=== PATIENT | female | born 1935 | race Caucasian/White ===

== ENCOUNTER 2022-08-21 18:10 | Outpatient (RCR) | payer MEDICARE, SELFPAY | END 2022-09-15 23:59 | disposition home or self-care (01) | LOC: MM 18:10 | PROVIDERS: PCP Family Medicine; Visit Provider Internal Medicine | DX: Z51.81 Encounter for therapeutic drug level monitoring (principal); I48.91 Unspecified atrial fibrillation; Z79.01 Long term (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 ==

== ENCOUNTER 2022-09-21 10:14 | Outpatient (RCR) | payer MEDICARE, SELFPAY | END 2022-10-16 16:52 | disposition home or self-care (01) | LOC: MM 10:14 | PROVIDERS: PCP Family Medicine; Visit Provider Internal Medicine | DX: Z51.81 Encounter for therapeutic drug level monitoring (principal); Z79.01 Long term (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; I48.91 Unspecified atrial fibrillation ==

== ENCOUNTER 2022-10-17 09:06 | Outpatient (RCR) | payer MEDICARE, SELFPAY | END 2022-11-16 17:25 | disposition home or self-care (01) | LOC: MM 09:06 | PROVIDERS: PCP Family Medicine; Visit Provider Internal Medicine | DX: Z51.81 Encounter for therapeutic drug level monitoring (principal); Z79.01 Long term (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; I48.91 Unspecified atrial fibrillation | CPT/HCPCS: 85610; G0463 ==

== ENCOUNTER 2022-10-20 08:46 | Outpatient (OUT) | payer MEDICARE, SELFPAY ==
[2022-10-20 09:12] LABS: Basophils Absolute Auto 0.1 10^3/uL (0.0-0.1); Basophils Percent Auto 0.7 % (0.2-2.0); Eosinophils Absolute Auto 0.3 10^3/uL (0.0-0.7); Eosinophils Percent Auto 3.6 % (0.9-7.0); Hematocrit 39.7 % (36.0-48.0); Immature Granulocytes Abs Auto 0.02 10^3/uL (0.00-0.03); Immature Granulocytes Pct Auto 0.2 % (0.0-0.5); Lymphocytes Absolute Auto 3.3 10^3/uL (1.2-3.8); Lymphocytes Percent Auto 37.7 % (20.5-60.0); Mean Corpuscular HGB Conc 30.2 g/dL (29.9-35.2); Mean Corpuscular Hemoglobin 31.6 pg (26.7-34.0); Mean Corpuscular Volume 104.5 fL (81.0-99.0); Mean Platelet Volume 11.2 fL (9.5-13.5); Monocytes Absolute Auto 0.8 10^3/uL (0.3-0.8); Monocytes Percent Auto 9.1 % (1.7-12.0); Neutrophils Absolute Auto 4.3 10^3/uL (1.4-6.5); Neutrophils Percent Auto 48.7 % (43.0-75.0); Platelet Count 232 10^3/uL (150-450); Red Cell Distribution Width 13.1 % (11.0-15.0); White Blood Count 8.7 10^3/uL (4.0-11.0)
[2022-10-20 09:53] LABS: Estimated Average Glucose 120 mg/dL; Glycohemoglobin A1C 5.8 % (4.5-6.2)
[2022-10-20 11:16] LABS: Alanine Aminotransferase 36 U/L (14-59); Albumin Globulin Ratio 0.9; Albumin Level 3.2 g/dL (3.4-5.0); Alkaline Phosphatase 59 U/L (46-116); Anion Gap 13.5; Aspartate Amino Transferase 30 U/L (15-37); BUN Creatinine Ratio 22.3; Bilirubin Total 0.2 mg/dL (0.2-1.0); Calcium 8.9 mg/dL (8.5-10.1); Carbon Dioxide 26.9 mmol/L (21.0-32.0); Chloride 108 mmol/L (98-107); Chol HDL Ratio 2.8; Cholesterol 143 mg/dL (<=200); Estimated GFR (African America 28 (>=60); Estimated GFR (Non-African Ame 23 (>=60); Free T3 1.72 pg/mL (2.18-3.98); Globulin 3.4 g/dL; Glucose 114 mg/dL (74-106); HDL Cholesterol 52 mg/dL (40-60); LDL Cholesterol Calculated 73.8 mg/dL; Potassium 4.4 mmol/L (3.5-5.1); Sodium 144 mmol/L (136-145); Thyroid Stimulating Hormone 2.786 uIU/mL (0.358-3.740); Total Protein 6.6 g/dL (6.4-8.2); Triglycerides 86 mg/dL (<=150); VLDL CHOLESTEROL 17.2 mg/dL
== END 2022-10-20 08:47 | disposition home or self-care (01) ==
LOC: LAB 08:49
PROVIDERS: PCP Family Medicine; Visit Provider Family Medicine
DX: R06.09 Other forms of dyspnea (principal); D22.9 Melanocytic nevi, unspecified; E78.5 Hyperlipidemia, unspecified; I50.9 Heart failure, unspecified; D64.9 Anemia, unspecified; E55.9 Vitamin D deficiency, unspecified
CPT/HCPCS: 36415; 80053; 80061; 82306; 83036; 83540; 83880; 84436; 84443; 84481; 85025

== ENCOUNTER 2022-11-17 08:41 | Outpatient (RCR) | payer MEDICARE, SELFPAY | END 2022-12-15 16:43 | disposition home or self-care (01) | LOC: MM 08:41 | PROVIDERS: PCP Family Medicine; Visit Provider Internal Medicine | DX: Z51.81 Encounter for therapeutic drug level monitoring (principal); Z79.01 Long term (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; I48.91 Unspecified atrial fibrillation | CPT/HCPCS: 85610; G0463 ==

== ENCOUNTER 2022-12-18 01:40 | Outpatient (RCR) | payer MEDICARE, SELFPAY | END 2023-01-16 17:18 | disposition home or self-care (01) | LOC: MM 01:40 | PROVIDERS: PCP Family Medicine; Visit Provider Internal Medicine | DX: Z51.81 Encounter for therapeutic drug level monitoring (principal); Z79.01 Long term (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; I48.91 Unspecified atrial fibrillation ==

== ENCOUNTER 2023-01-07 12:23 | Emergency (ER) | payer MEDICARE, SELFPAY ==
[2023-01-07] VITALS (14 sets, daily range): BP systolic 159–177; BP diastolic 66–73; PULSE 60–68; RESP 16–22; TEMP 36.7; O2SAT 92–96; BMI 22.7
--- NOTE | 2023-01-07 12:42 | ECG_ITS ---
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
--- NOTE | 2023-01-07 13:00 | CT_ITS ---
The [address] [address] Patient Name: ASTON ZULUAGA MRN: [id number] date: 1935 Sex: F Assigned Patient Location: ER Current Patient Location: ER Accession/Order Number: [id number] Exam Date: 01/07/2023 13:12 Report Date: 01/07/2023 13:54 At the request of: MARY JO MOREIRA Procedure: CT soft tissue neck wo con CT NECK WITHOUT CONTRAST. 01/07/2023 1:12 PM EDT Clinical History:pain on the right in the upper cervical region. Comparison: None available . Unenhanced helically acquired data per standard protocol. The lack of IV contrast material hampers evaluation of the vasculature, for enhancing fluid collections, and for adenopathy. In the region of interest there is no distinct evidence of a soft tissue mass or obvious fluid collection. There is no mastoid effusion. The TMJs are symmetric. The parotid glands are symmetric and unremarkable. A few nonenlarged cervical chain nodes bilaterally. No submental or submandibular adenopathy. Some calcific ASVD at both carotid bifurcations appears relatively symmetric. The thyroid is mildly heterogeneous and is small. The patient is edentulous. There is no evidence of acute osseous process. DDD at several levels, greatest at C6-C7. CT/CT soft tissue neck wo con IMPRESSION: 1. No distinct evidence of acute process. All CT scans at this facility use dose modulation, iterative reconstruction, and/or weight based dosing when appropriate to reduce radiation dose to as low as reasonably achievable. Electronically authenticated by: PERRY PUENTE Date: 01/07/2023 13:54
[2023-01-07] MEDS: KETOROLAC TROMETHAMINE 30 MG/ML VIAL 15 MG IM (13:05)
[2023-01-07] MEDS: ORPHENADRINE 60 MG/ 2 ML VIAL 30 MG IM (13:06)
--- NOTE | 2023-01-07 14:27 | ED.NECK1 ---
HPI - Neck Pain/Injury General Chief Complaint: Neck Pain/Injury Stated Complaint: SORE THROAT Time Seen by Provider: 01/07/23 12:42 Source: patient Mode of arrival: Wheelchair Limitations: no limitations History of Present Illness HPI Narrative: The patient presenting to us today with a bilateral neck pain that been going on at least for few days the patient mentioned that she have neck stiffness she has not been able to turn right or left because of the pain. She also mentioned that sometimes when she swallows she would feel the pain as well No fever no other concerns and no runny nose or any other complaint by the patient There was no history of trauma no numbness no tingling no weakness in upper or lower extremity Related Data Home Medications Medication Instructions Recorded Confirmed alendronate 70 mg tablet 70 mg PO Q24H 01/07/23 01/07/23 amiodarone 200 mg tablet 200 mg PO Q24H 01/07/23 01/07/23 atorvastatin 40 mg tablet 40 mg PO Q24H 01/07/23 01/07/23 cetirizine 10 mg tablet 10 mg PO Q24H 01/07/23 01/07/23 diltiazem HCl 240 mg 240 mg PO Q24H 01/07/23 01/07/23 capsule,extended release 24 hr doxepin 10 mg capsule 10 mg PO Q12H 01/07/23 01/07/23 empagliflozin 10 mg tablet 10 mg PO Q24H 01/07/23 01/07/23 (Jardiance) escitalopram oxalate 10 mg tablet 10 mg PO Q24H 01/07/23 01/07/23 ferrous sulfate 325 mg (65 mg 325 mg PO Q12H 01/07/23 01/07/23 iron) tablet furosemide 20 mg tablet 20 mg PO Q24H 01/07/23 01/07/23 levothyroxine 25 mcg tablet 25 mcg PO Q24H 01/07/23 01/07/23 liothyronine 5 mcg tablet 5 mcg PO Q24H 01/07/23 01/07/23 memantine 28 mg capsule 28 mg PO Q24H 01/07/23 01/07/23 sprinkle,extended release 24hr metformin 500 mg tablet 500 mg PO Q12H 01/07/23 01/07/23 montelukast 10 mg tablet 10 mg PO Q24H 01/07/23 01/07/23 olanzapine 2.5 mg tablet 2.5 mg PO Q24H 01/07/23 01/07/23 pantoprazole 40 mg tablet,delayed 40 mg PO Q12H 01/07/23 01/07/23 release potassium chloride 10 mEq 10 meq PO Q12H 01/07/23 01/07/23 tablet,extended release(part/cryst) (Klor-Con M) warfarin 2 mg tablet 2 mg PO .m-f 01/07/23 01/07/23 Previous Rx's Medication Instructions Recorded acetaminophen 650 mg 650 mg PO Q8H PRN pain #20 tabs 01/07/23 tablet,extended release (Tylenol 8 Hour) orphenadrine citrate 100 mg 100 mg PO DAILY PRN muscle spasm 01/07/23 tablet,extended release #5 tabs prednisone 20 mg tablet 20 mg PO DAILY 5 days #5 tabs 01/07/23 Allergies Allergy/AdvReac Type Severity Reaction Status Date / Time penicillin G Allergy Intermediate Verified 01/07/23 12:31 Sulfa (Sulfonamide Allergy Intermediate Verified 01/07/23 12:31 Antibiotics) Review of Systems ROS Status of ROS 10 or more systems reviewed and unremarkable except as noted in history and below [facility] Social History Smoking status: Never smoker Exam Narrative Exam Narrative: Nurses notes and vital signs reviewed and patient is not hypoxic. General: Well-appearing and in no apparent distress. Skin: Warm, dry, no pallor noted. No rash. Head: Normocephalic, atraumatic. Neck: The patient upon presentation looked at she is fixing her neck to one side or even and only in the middle to the left the patient have tenderness upon palpation of the paraspinal muscles on both sides no intervertebral line tenderness Eye: Pupils are equal, round and EOMI. No scleral icterus. Ears, Nose, Mouth, and Throat: TM are clear, no nasal mucosal hypertrophy. Oral mucosa is moist, no posterior oropharynx erythema, uvula is mid-line Cardiovascular: Regular Rate and Rhythm without murmur, gallop or rub. Respiratory: No accessory muscle use or respiratory distress. Lungs are clear to auscultation, no wheezing, rales or rhonchi Chest Wall: no tenderness Back: No midline thoracic or lumbar vertebral tenderness. No CVA tenderness Musculoskeletal: normal ROM, no calf or popliteal tenderness, no lower extremity edema/swelling GI: Abdomen is soft, non-distended. Normal bowel sounds. No masses appreciated. No tenderness to palpation. No rebound, guarding, or rigidity noted. Neurological: A&O x4. No cranial nerve dysfunction observed. No truncal ataxia. Moves all extremities. Sensation intact. Psychiatric: Cooperative and interactive. Normal mood and affect. Constitutional Vital Signs, click to edit/add: Last Vital Signs Temp 98.1 F 01/07/23 12:28 Pulse 63 01/07/23 13:10 Resp 22 01/07/23 13:10 BP 159/69 H 01/07/23 14:29 Pulse Ox 93 L 01/07/23 14:20 O2 Del Method Room Air 01/07/23 12:28 Course Vital Signs Vital signs: Vital Signs Temperature 98.1 F 01/07/23 12:28 Pulse Rate 68 01/07/23 12:28 Respiratory Rate 18 01/07/23 12:28 Blood Pressure 173/66 H 01/07/23 12:28 Pulse Oximetry 96 01/07/23 12:28 Oxygen Delivery Method Room Air 01/07/23 12:28 Temperature 98.1 F 01/07/23 12:28 Pulse Rate 63 01/07/23 13:10 Respiratory Rate 22 01/07/23 13:10 Blood Pressure 159/69 H 01/07/23 14:29 Pulse Oximetry 93 L 01/07/23 14:20 Oxygen Delivery Method Room Air 01/07/23 12:28 MDM - Neck Pain/Injury MDM Narrative Medical decision making narrative: The patient had an EKG and was showing paced rhythm with a heart rate of [address] elevation or depression There was no chest pain at any time and the patient pain is elicited with examination and the patient is not moving her next was she does not have pain which mostly muscular pain The CT soft tissue was obtained because the patient was pointing to the front as well as possibly for her pain and she mentioned that sometimes she would feels with the swallowing but the CT of the neck and soft tissue did not show any acute pathology The patient was feeling better after being treated with a Toradol in the ER as well as Norflex She does have Coumadin as well as other medication because of her A-fib and her granddaughter at the bedside mentioned that she have allergy test tomorrow and she cannot take any Tylenol Right now the patient will be provided with the extended release Tylenol to use after the allergy test in addition to prednisone and Norflex she was feeling much better after initial treatment The patient to come back in case of any new symptoms The patient is to follow up with primary care physician in next 2-3 days or to return to the emergency department should any of the signs or symptoms worsen or new symptoms develop. The patient agrees with the following Diagnosis and Treatment plan and the patient will be discharged home. Discharge Plan Discharge Chief Complaint: Neck Pain/Injury Clinical Impression: Strain of neck muscle Patient Disposition: Home, Self-Care Time of Disposition Decision: 14:34 Condition: Good Prescriptions / Home Meds: New prednisone 20 mg tablet 20 mg PO DAILY 5 Days Qty: 5 0RF acetaminophen [Tylenol 8 Hour] 650 mg tablet extended release 650 mg PO Q8H PRN (Reason: pain) Qty: 20 0RF orphenadrine citrate 100 mg tablet extended release 100 mg PO DAILY PRN (Reason: muscle spasm) Qty: 5 0RF No Action alendronate 70 mg tablet 70 mg PO Q24H amiodarone 200 mg tablet 200 mg PO Q24H atorvastatin 40 mg tablet 40 mg PO Q24H cetirizine 10 mg tablet 10 mg PO Q24H diltiazem HCl 240 mg capsule,extended release 24hr 240 mg PO Q24H doxepin 10 mg capsule 10 mg PO Q12H Jardiance 10 mg tablet 10 mg PO Q24H escitalopram oxalate 10 mg tablet 10 mg PO Q24H ferrous sulfate 325 mg (65 mg iron) tablet 325 mg PO Q12H furosemide 20 mg tablet 20 mg PO Q24H levothyroxine 25 mcg tablet 25 mcg PO Q24H liothyronine 5 mcg tablet 5 mcg PO Q24H memantine 28 mg capsule,sprinkle,ER 24hr 28 mg PO Q24H metformin 500 mg tablet 500 mg PO Q12H montelukast 10 mg tablet 10 mg PO Q24H olanzapine 2.5 mg tablet 2.5 mg PO Q24H pantoprazole 40 mg tablet,delayed release (DR/EC) 40 mg PO Q12H potassium chloride [Klor-Con M10] 10 mEq tablet,ER particles/crystals 10 meq PO Q12H warfarin 2 mg tablet 2 mg PO .m-f Instructions: Spasmodic Torticollis (ED) Stand Alone Forms: Portal Instructions Referrals: Chase Nolan MD [Primary Care Provider] - 1 week
== END 2023-01-07 14:51 | disposition home or self-care (01) ==
PROVIDERS: Emergency Provider Emergency Medicine; PCP Family Medicine
DX: S16.1XXA Strain of muscle, fascia and tendon at neck level, initial encounter (principal); I48.91 Unspecified atrial fibrillation; Z79.899 Other long term (current) drug therapy; Z79.890 Hormone replacement therapy; Z79.01 Long term (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; Z79.84 Long term (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 oral hypoglycemic drugs
CPT/HCPCS: 70490; 93005; 96372; 99285

== ENCOUNTER 2023-01-14 19:57 | Inpatient (IN) | payer MEDICARE, SELFPAY ==
[2023-01-14] VITALS (13 sets, daily range): BP systolic 114–138; BP diastolic 41–80; PULSE 67–76; RESP 20–29; TEMP 37.1–37.4; O2SAT 83–93; BMI 22.2
--- NOTE | 2023-01-14 20:23 | ECG_ITS ---
The 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
--- NOTE | 2023-01-14 20:23 | XR_ITS ---
The [address] [address] Patient Name: ASTON ZULUAGA MRN: [id number] date: 1935 Sex: F Assigned Patient Location: ER Current Patient Location: ED.MAIN Accession/Order Number: [id number] Exam Date: 01/14/2023 20:45 Report Date: 01/14/2023 21:05 At the request of: BRYAN HUNTER Procedure: XR chest 1V EXAM: XR chest 1V HISTORY: short of breath COMPARISON: Chest x-ray 07/10/2022 TECHNIQUE: Single AP radiograph of the chest FINDINGS: No pneumothorax. Likely small bibasilar effusions. Opacities of the right lower lobe concerning for possible infectious process. Cardiomegaly. Cardiac pacer leads project over right atrium and right ventricle. No acute osseous abnormality. Surgical clips project over the upper abdomen. XR/XR chest 1V IMPRESSION: Cardiomegaly with bibasilar effusions. Consolidation of the right lower lobe concerning for infectious process. Electronically authenticated by: MARIBELL MARIN Date: 01/14/2023 21:05
--- NOTE | 2023-01-14 20:26 | ED.SOB1 ---
HPI - SOB/Dyspnea General Chief Complaint: Shortness of Breath/Dyspnea Stated Complaint: Cough Pain in lungs Time Seen by Provider: 01/14/23 20:17 Source: patient and family Mode of arrival: Wheelchair Limitations: no limitations History of Present Illness HPI Narrative: patient has past history of CHF. Denies history of COPD. Presents complaining of congested cough and shortness of breath for a couple of days. No fever. complains of right sided chest pain with cough. Denies abdominal pain or nausea MD elicited complaint: shortness of breath and cough Related Data Home Medications Medication Instructions Recorded Confirmed alendronate 70 mg tablet 70 mg PO Q24H 01/07/23 01/14/23 amiodarone 200 mg tablet 200 mg PO Q24H 01/07/23 01/14/23 atorvastatin 40 mg tablet 40 mg PO Q24H 01/07/23 01/14/23 cetirizine 10 mg tablet 10 mg PO Q24H 01/07/23 01/14/23 diltiazem HCl 240 mg 240 mg PO Q24H 01/07/23 01/14/23 capsule,extended release 24 hr doxepin 10 mg capsule 10 mg PO Q12H 01/07/23 01/14/23 empagliflozin 10 mg tablet 10 mg PO Q24H 01/07/23 01/14/23 (Jardiance) escitalopram oxalate 10 mg tablet 10 mg PO Q24H 01/07/23 01/14/23 ferrous sulfate 325 mg (65 mg 325 mg PO Q12H 01/07/23 01/14/23 iron) tablet furosemide 20 mg tablet 20 mg PO Q24H 01/07/23 01/14/23 levothyroxine 25 mcg tablet 25 mcg PO Q24H 01/07/23 01/14/23 liothyronine 5 mcg tablet 5 mcg PO Q24H 01/07/23 01/14/23 memantine 28 mg capsule 28 mg PO Q24H 01/07/23 01/14/23 sprinkle,extended release 24hr metformin 500 mg tablet 500 mg PO Q12H 01/07/23 01/14/23 montelukast 10 mg tablet 10 mg PO Q24H 01/07/23 01/14/23 olanzapine 2.5 mg tablet 2.5 mg PO Q24H 01/07/23 01/14/23 pantoprazole 40 mg tablet,delayed 40 mg PO Q12H 01/07/23 01/14/23 release potassium chloride 10 mEq 10 meq PO Q12H 01/07/23 01/14/23 tablet,extended release(part/cryst) (Klor-Con M) warfarin 2 mg tablet 2 mg PO .m-f 01/07/23 01/14/23 Previous Rx's Medication Instructions Recorded acetaminophen 650 mg 650 mg PO Q8H PRN pain #20 tabs 01/07/23 tablet,extended release (Tylenol 8 Hour) orphenadrine citrate 100 mg 100 mg PO DAILY PRN muscle spasm 01/07/23 tablet,extended release #5 tabs prednisone 20 mg tablet 20 mg PO DAILY 5 days #5 tabs 01/07/23 Allergies Allergy/AdvReac Type Severity Reaction Status Date / Time penicillin G Allergy Intermediate Verified 01/14/23 20:15 Sulfa (Sulfonamide Allergy Intermediate Verified 01/14/23 20:15 Antibiotics) Review of Systems ROS Status of ROS 10 or more systems reviewed and unremarkable except as noted in history and below [facility] Social History Smoking status: Never smoker Exam Constitutional Vital Signs, click to edit/add: Last Vital Signs Temp 98.7 F 01/14/23 20:06 Pulse 70 01/14/23 21:30 Resp 24 01/14/23 21:30 BP 138/80 01/14/23 20:06 Pulse Ox 91 L 01/14/23 21:30 O2 Del Method Nasal Cannula 01/14/23 20:59 O2 Flow Rate 3 01/14/23 20:59 Common normals: no apparent distress, oriented x3, alert and well nourished Eye Common normals: EOMs intact bilaterally and conjunctivae normal Respiratory Common normals: no retractions and no use of accessory muscles Other: upper airway bronchial breath sounds Cardio Common normals: regular rate, regular rhythm, S1 normal heart sound and S2 normal heart sound GI Common normals: Normal to inspection, nondistended, normoactive bowel sounds present, soft to palpation and non-tender Extremity Common normals: normal to inspection Neuro Common normals: oriented x3, CN's II-XII intact bilaterally, moves all extremities, no focal motor deficits and no sensory deficits noted Psych Appearance: grossly normal Course Vital Signs Vital signs: Vital Signs Temperature 98.7 F 01/14/23 20:06 Pulse Rate 67 01/14/23 20:06 Respiratory Rate 20 01/14/23 20:06 Blood Pressure 138/80 01/14/23 20:06 Pulse Oximetry 83 L 01/14/23 20:06 Oxygen Delivery Method Room Air 01/14/23 20:06 Temperature 98.7 F 01/14/23 20:06 Pulse Rate 70 01/14/23 21:30 Respiratory Rate 24 01/14/23 21:30 Blood Pressure 138/80 01/14/23 20:06 Pulse Oximetry 91 L 01/14/23 21:30 Oxygen Delivery Method Nasal Cannula 01/14/23 20:59 Oxygen Delivery Flow Rate 3 01/14/23 20:59 MDM - SOB/Dyspnea MDM Narrative Medical decision making narrative: patient has a past history of cardiomyopathy, CHF. has pacemaker in place. 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 She is on coumadin because of her cardiomyopathy . She denies history of COPD. She presents complaining of shortness of breath over the past couple of days. No complaint of chest pain. INR elevated at 4.91. BNP elevated at 5471. she as CKD. creatine 2.94 today. Was 2.06 last month. She has elevated lactic and WBC 27,000. Her d-dimer is elevated likely from the pneumonitis. She is not a cadidate for CTA given her decreased GFR. Blood cx ordered as well as coverage for CAP with Zithromax and Rocephin. Discussed with Tele Hospitalist and patient accepted for in patient admission she is also positive for entero/rhino virus her vital signs have remained stable during her time in the department. never hypotensive or tachycardic. Admitted to Telemetry bed Med surg Lab Data Labs: Lab Results 01/14/23 Range/Units 20:43 WBC 27.7 H (4.0-11.0) 10^3/uL RBC 3.81 L (4.20-5.40) 10^6/uL Hgb 12.1 (12.0-16.0) g/dL Hct 39.1 (36.0-48.0) % MCV 102.6 H (81.0-99.0) fL MCH 31.8 (26.7-34.0) pg MCHC 30.9 (29.9-35.2) g/dL RDW 14.2 (11.0-15.0) % Plt Count 263 (150-450) 10^3/uL MPV 11.8 (9.5-13.5) fL Seg Neuts % (Manual) 83.0 Band Neutrophils % 5.0 (0-5) % Lymphocytes % (Manual) 9.0 L (20.5-60.0) % Monocytes % (Manual) 3.0 (1.7-12.0) % Eosinophils % (Manual) 0.0 L (0.9-7.0) % Basophils % (Manual) 0.0 L (0.2-2.0) % Neutrophils # (Manual) 22.99 H (1.4-6.5) 10^3/uL Band Neutrophils # 1.4 H (0.0-0.3) 10^3/uL Lymphocytes # (Manual) 2.49 (1.20-3.80) 10^3/uL Monocytes # (Manual) 0.83 H (0.30-0.80) 10^3/uL Eosinophils # (Manual) 0.00 (0.00-0.70) 10^3/uL Basophils # (Manual) 0.00 (0.00-0.10) 10^3/uL PT 47.6 H* (9.0-11.6) sec INR 4.91 H* D-Dimer 1.18 H* (<=0.59) mg/L FEU Sodium 139 (136-145) mmol/L Potassium 4.5 (3.5-5.1) mmol/L Chloride 102 (98-107) mmol/L Carbon Dioxide 22.8 (21.0-32.0) mmol/L Anion Gap 18.7 BUN 52.0 H (7.0-18.0) mg/dL Creatinine 2.94 H (0.55-1.02) mg/dL Est GFR ( Amer) 18 L (>=60) Est GFR (Non-Af Amer) 15 L (>=60) BUN/Creatinine Ratio 17.7 Glucose 153 H (74-106) mg/dL Lactate 3.4 H* (0.4-2.0) mmol/L Calcium 8.4 L (8.5-10.1) mg/dL Troponin I High Sens 11.1 (4.0-51.3) pg/mL NT-Pro-B Natriuret Pep 5471.0 H* (<=1800.0) pg/mL Adenovirus (PCR) Not detected (NOT DETECTE) C. pneumoniae DNA (PCR) Not detected (NOT DETECTE) Coronavirus Type OC43 Not detected (NOT DETECTE) Coronavirus Type HKU1 Not detected (NOT DETECTE) Coronavirus Type 229E Not detected (NOT DETECTE) Coronavirus Type NL63 Not detected (NOT DETECTE) Human Metapneumovir PCR Not detected (NOT DETECTE) M. pneumoniae (PCR) Not detected (NOT DETECTE) Parainfluenza PCR Not detected (NOT DETECTE) Parainfluenza 2 (PCR) Not detected (NOT DETECTE) Parainfluenza 3 (PCR) Not detected (NOT DETECTE) Parainfluenza 4 (PCR) Not detected (NOT DETECTE) RSV (RT-PCR) Not detected (NOT DETECTE) Entero/Rhino (PCR) Detected A (NOT DETECTE) SARS-CoV-2 (PCR) Not detected (NOT DETECTE) Bordetella pertussis (PCR) Not detected (NOT DETECTE) B parapertussis DNA PCR Not detected (NOT DETECTE) Influenza Type A (PCR) Not detected (NOT DETECTE) Influenza Type B (PCR) Not detected (NOT DETECTE) Critical Care Time Critical Care Time Total Critical Care Time: 35 Discharge Plan Discharge Chief Complaint: Shortness of Breath/Dyspnea Clinical Impression: Acute viral syndrome, Congestive heart failure, Community acquired pneumonia, CKD (chronic kidney disease), Sepsis Prescriptions / Home Meds: No Action alendronate 70 mg tablet 70 mg PO Q24H amiodarone 200 mg tablet 200 mg PO Q24H atorvastatin 40 mg tablet 40 mg PO Q24H cetirizine 10 mg tablet 10 mg PO Q24H diltiazem HCl 240 mg capsule,extended release 24hr 240 mg PO Q24H doxepin 10 mg capsule 10 mg PO Q12H Jardiance 10 mg tablet 10 mg PO Q24H escitalopram oxalate 10 mg tablet 10 mg PO Q24H prednisone 20 mg tablet 20 mg PO DAILY 5 Days Qty: 5 0RF ferrous sulfate 325 mg (65 mg iron) tablet 325 mg PO Q12H acetaminophen [Tylenol 8 Hour] 650 mg tablet extended release 650 mg PO Q8H PRN (Reason: pain) Qty: 20 0RF furosemide 20 mg tablet 20 mg PO Q24H orphenadrine citrate 100 mg tablet extended release 100 mg PO DAILY PRN (Reason: muscle spasm) Qty: 5 0RF levothyroxine 25 mcg tablet 25 mcg PO Q24H liothyronine 5 mcg tablet 5 mcg PO Q24H memantine 28 mg capsule,sprinkle,ER 24hr 28 mg PO Q24H metformin 500 mg tablet 500 mg PO Q12H montelukast 10 mg tablet 10 mg PO Q24H olanzapine 2.5 mg tablet 2.5 mg PO Q24H pantoprazole 40 mg tablet,delayed release (DR/EC) 40 mg PO Q12H potassium chloride [Klor-Con M10] 10 mEq tablet,ER particles/crystals 10 meq PO Q12H warfarin 2 mg tablet 2 mg PO .m-f Referrals: Chase Nolan MD [Primary Care Provider] - 1 week
--- NOTE | 2023-01-14 20:39 | PC.NURSE ---
Oxygen up to 92-93% on 3 LPM/NC
[2023-01-14 20:50] LABS: Adenovirus NOT DETECTED (NOT DETECTE); Bordetella parapertussis NOT DETECTED (NOT DETECTE); Coronavirus 229E NOT DETECTED (NOT DETECTE); Coronavirus HKU1 NOT DETECTED (NOT DETECTE); Coronavirus NL63 NOT DETECTED (NOT DETECTE); Coronavirus OC43 NOT DETECTED (NOT DETECTE); Human Metapneumovirus NOT DETECTED (NOT DETECTE); Influenza A NOT DETECTED (NOT DETECTE); Influenza B NOT DETECTED (NOT DETECTE); Mycoplasma pneumoniae NOT DETECTED (NOT DETECTE); Parainfluenza Virus 1 NOT DETECTED (NOT DETECTE); Parainfluenza Virus 2 NOT DETECTED (NOT DETECTE); Parainfluenza Virus 3 NOT DETECTED (NOT DETECTE); Parainfluenza Virus 4 NOT DETECTED (NOT DETECTE); Respiratory Syncytial Virus NOT DETECTED (NOT DETECTE); SARS-CoV-2 NOT DETECTED (NOT DETECTE)
[2023-01-14 20:52] LABS: Hematocrit 39.1 % (36.0-48.0); Hemoglobin 12.1 g/dL (12.0-16.0); Mean Corpuscular HGB Conc 30.9 g/dL (29.9-35.2); Mean Corpuscular Hemoglobin 31.8 pg (26.7-34.0); Mean Corpuscular Volume 102.6 fL (81.0-99.0); Mean Platelet Volume 11.8 fL (9.5-13.5); Platelet Count 263 10^3/uL (150-450); Red Blood Count 3.81 10^6/uL (4.20-5.40); Red Cell Distribution Width 14.2 % (11.0-15.0); White Blood Count 27.7 10^3/uL (4.0-11.0)
[2023-01-14] MEDS: ALBUTEROL SULFATE 2.5 MG/3 ML VIAL NEB IH (20:59)
[2023-01-14] MEDS: 0.9 % SODIUM CHLORIDE 1,000 ML 100 ML IV (21:01)
[2023-01-14] MEDS: METHYLPREDNISOLONE SOD SUCC PF 125 MG/2 ML VIAL IVP (21:01)
[2023-01-14 21:15] LABS: Anion Gap 18.7; BUN Creatinine Ratio 17.7; Calcium 8.4 mg/dL (8.5-10.1); Carbon Dioxide 22.8 mmol/L (21.0-32.0); Chloride 102 mmol/L (98-107); Estimated GFR (African America 18 (>=60); Estimated GFR (Non-African Ame 15 (>=60); Glucose 153 mg/dL (74-106); Potassium 4.5 mmol/L (3.5-5.1); Sodium 139 mmol/L (136-145); Troponin I High Sensitivity 11.1 pg/mL (4.0-51.3)
--- NOTE | 2023-01-14 21:23 | PC.NURSE ---
Critical lab results received for PT/INR, D-dimer, lactic acid and BNP. Results relayed to [facility]
[2023-01-14 21:24] LABS: D Dimer 1.18 mg/L FEU (<=0.59); INR 4.91; Lactate/Lactic Acid 3.4 mmol/L (0.4-2.0); Prothrombin Time 47.6 sec (9.0-11.6)
[2023-01-14 21:29] LABS: Band Neutrophils Absolute 1.4 10^3/uL (0.0-0.3); Lymphocytes Absolute Manual 2.49 10^3/uL (1.20-3.80); Monocytes Absolute Manual 0.83 10^3/uL (0.30-0.80); Segmented Neut Absolute Manual 22.99 10^3/uL (1.4-6.5)
[2023-01-14 21:40] LABS: Human Rhinovirus/Enterovirus DETECTED (NOT DETECTE)
[2023-01-14] MEDS: CEFTRIAXONE 1,000 MG in 0.9 % SODIUM CHLORIDE 50 ML 100 MG IV (22:24)
[2023-01-14] MEDS: AZITHROMYCIN 500 MG in 0.9 % SODIUM CHLORIDE 250 ML 250 MG IV (22:25)
[2023-01-15] VITALS (19 sets, daily range): BP systolic 105–131; BP diastolic 35–54; PULSE 60–76; RESP 18–20; TEMP 36.4–36.7; O2SAT 91–98
--- NOTE | 2023-01-15 00:37 | P.PN_ITS ---
Progress Note: Subjective Subjective Interval history: Pt is a 87F with PMH of Cardiomyopathy s/p PPM, DM, CHF, Tachycardia, on Warfarin and amiodarone (for atrial fibrillation?) who presented to the ED with complaining of Dyspnea x 2 days assocaited with exertion and intermittent chest pain. On further discussion, patient states that she gets chest pain sometimes and has not had it recently. No chest pain today. She complains primarily of shortness of breath and cough, non-productive. She denies any recent travel, no sick contacts. No fevers/chills, though the nurse at bedside states that her temperature is currently 99.3. Pt denies nausea, vomiting, dizziness, headache, swelling of the legs. In the ED, she was noted to have RLL infiltrate and bilateral vascular congestion. She was hypoxic and so she was placed on 4L NC. She does not wear O2 at home. She is entero and rhinovirus positive per ED physician. Patient denies smoking (last use 50 years ago), drugs, etOH. SHe lives with her daughter who takes care of her at home. I discussed code status - CPR, Intubation - and patient wishes to be full code. Exam Narrative Exam Narrative: General: NAD. HEENT: NC/AT Neck: FROM Cards: +murmur. Pulm: +Rhonchi, no wheezes, +Rales GI: Nontender Musculoskeletal: No edema. ALVAREZ Neuro: Awake, Alert, Oriented to person and place. Psych: Calm, cooperative Constitutional Vital Signs, click to edit/add: Last Vital Signs Temp 99.3 F 01/14/23 23:51 Pulse 73 01/14/23 23:51 Resp 22 01/14/23 23:51 BP 114/54 01/14/23 23:51 Pulse Ox 93 L 01/14/23 23:51 O2 Del Method Nasal Cannula 01/14/23 23:51 O2 Flow Rate 4 01/14/23 23:51 Progress Note: Objective Labs Labs: Short CBC 01/14/23 Range/Units 20:43 WBC 27.7 H (4.0-11.0) 10^3/uL Hgb 12.1 (12.0-16.0) g/dL Hct 39.1 (36.0-48.0) % Plt Count 263 (150-450) 10^3/uL BMP 01/14/23 20:43 Sodium 139 Potassium 4.5 Chloride 102 Carbon Dioxide 22.8 BUN 52.0 H Creatinine 2.94 H Glucose 153 H Calcium 8.4 L Progress Note: A&P Assessment and Plan (1) Community acquired pneumonia: Assessment and Plan: Chief complaint dyspnea on exertion and cough Hypoxic in ED, elevated temperaturs, Signs of sepsis+ No edema to suggest heart failure, mild rales B/L CXR with RLL Infiltrate Pt received IV Fluids in ED Hold for now given hypoxia and rales, heart failure Monitor response Continue Rocephin/Azithromycin Hold home lasix for now given BERTHA/CKD IF patient fails to improve, consider fluid overload as cause of elevated creatinine due to renal tubule congestion Consider swallow evaluation in AM given location of infiltrate (2) Congestive heart failure: Onset Date: Unknown Assessment and Plan: Check BNP Resume home lasix when stable Hold for now give acute infection and dehydration (3) Sepsis: Assessment and Plan: Patient received IV Fluid in the ED for sepsis, Pneumonia, BERTHA Pt now with rales on exam in addition to rhonchi Hold Fluid for now Tylenol PRN fever, 650mg (4) Supratherapeutic INR: Assessment and Plan: Likley due to acute infective process Hold Warfarin for now Check INR and resume when appropriate (5) Hypoxia: Assessment and Plan: Kleber does not use oxygen at home Requiring 4L in the ED Continue supplemental O2 Downtitrate as tolerated Treatment of underlying pneumonia as above Telemedicine Attestation Telemedicine Attestation I conducted this encounter from [[place]] via secure live, [id number] video conference with the patient, located at [facility] with [nurse]. Prior to the interview, the risks and benefits of telemedicine were discussed with the patient and verbal consent was obtained.
[2023-01-15 00:46] LABS: Lactate/Lactic Acid 3.3 mmol/L (0.4-2.0)
--- NOTE | 2023-01-15 00:55 | CA_ITS ---
Patient: ATSON ZULUAGA Exam Date: 01/15/2023 : 1935 Gender:F Ordering : JESSE FINNEGAN Admission #: [id number] Family : DR Chase Nolan . Order #: [id number] CLICK HERE TO VIEW EXAM ECHOCARDIOGRAM REPORT PROCEDURE: CA ECHO DOPPLER COMPLETE INDICATIONS: Cardiomyopathy, Shortness of breath COMPARISON: None. DESCRIPTION: COMPLETE ECHOCARDIOGRAM Real-time transthoracic echocardiography with 2D, M-mode, spectral and color flow Doppler performed. QUALITY: Technical quality was good. LEFT VENTRICLE: Normal chamber size. Proximal septal hypertrophy (sigmoid septum). LV EF: Global left ventricular systolic function is hyperdynamic; ejection fraction is 65 to 70%. No wall motion abnormalities are seen. DIASTOLIC: Diastolic function cannot be assessed. ATRIAL SEPTUM: Inadequately visualized. LEFT ATRIUM: Severe dilatation. RIGHT ATRIUM: Moderate dilatation. RIGHT VENTRICLE: Mild dilatation. Pacer wire present. Systolic function is normal. TRICUSPID VALVE: Normal mobility and thickness. Mild regurgitation. Doppler studies reveal severely (>60) elevated right sided pressures. RVSP 65 mmHg MITRAL VALVE: Mildly thickened with normal mobility. No evidence of mitral valve stenosis. Mild mitral annular calcification. Trivial mitral regurgitation. AORTIC VALVE: Normal trileaflet appearance. Moderately calcified aortic valve. Doppler velocity suggests mild aortic valve stenosis. DVI 0.4, DINAA 1.7 cm2. Trivial aortic regurgitation. AORTIC ROOT: Normal diameter and appearance. PULMONIC VALVE: Normal thickness and mobility. No stenosis. No regurgitation. PERICARDIUM: No evidence of pericardial effusion. IVC: IVC is dilated (2.2 cm) with no collapse. CONCLUSION: 1. Global left ventricular systolic function is hyperdynamic; ejection fraction is 65 to 70%. No wall motion abnormalities are seen 2. The right ventricle is mildly enlarged and systolic function is preserved 3. Biatrial enlargement 4. Mild tricuspid regurgitation 5. Severely elevated right sided pressures; RVSP 65 mmHg 6. Mild aortic valve stenosis Adult Echocardiography Procedure Report Left Ventricle LVEDD (3.7 - 5.6 cm): 3.75 cm LVESD (2.2 - 4.0 cm): 2.56 cm LVIVS thickness (0.6 - 1.2 cm): 1.63 cm LVPW thickness (0.5 - 1.0 cm): 1.17 cm e': 0.12 m/s E - e': 8.54 LVOT Max Gradient: 4.49 mm[Hg] LVOT Area (cm2): 1.06 m/s Peak Velocity (LVOT): 1.06 m/s Mean Velocity (LVOT): 0.68 m/s LVOT Diameter 2.12 cm Left Atrium LA Volume Index (2D A2C): 52.53 ml/m2 Left Atrium Systolic Dimension: 3.00 cm Mitral Valve MV E to A Ratio: 3.36 Mitral Valve A-Wave Peak Velocity: 0.31 m/s Mitral Valve E-Wave Peak Velocity: 1.05 m/s Right Ventricle Aorta AO Root Diam: 3.58 cm Ascending Ao Diam: 2.65 cm Aortic Valve AoV Area (Peak Pardeep): 1.41 cm2, 1.40 cm2 AoV Area (VTI): 1.71 cm2, 1.74 cm2 Peak Velocity(Antegrade Flow): 2.68 m/s, 2.64 m/s Peak Gradient(Antegrade Flow): 28.71 mm[Hg], 27.90 mm[Hg] Mean Velocity(Antegrade Flow): 1.82 m/s, 1.76 m/s Mean Gradient(Antegrade Flow): 15.19 mm[Hg], 14.56 mm[Hg] Velocity Time Integral: 58.12 cm, 59.56 cm Tricuspid Valve Peak Velocity (Regurgitant Flow): 3.22 m/s, 3.52 m/s Pulmonic Valve Peak Velocity: 0.83 m/s Peak Gradient: 2.92 mm[Hg], 2.63 mm[Hg] Right Atrium Dictated by: Dede Ma M.D. on 01/15/2023 at 15:46 Approved by: Dede Ma M.D. on 01/15/2023 at 16:00
--- NOTE | 2023-01-15 01:00 | ECG_ITS ---
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
[2023-01-15 03:57] LABS: Hematocrit 33.1 % (36.0-48.0); Hemoglobin 10.3 g/dL (12.0-16.0); Mean Corpuscular HGB Conc 31.1 g/dL (29.9-35.2); Mean Corpuscular Volume 102.8 fL (81.0-99.0); Mean Platelet Volume 11.9 fL (9.5-13.5); Platelet Count 222 10^3/uL (150-450); Red Blood Count 3.22 10^6/uL (4.20-5.40); Red Cell Distribution Width 14.1 % (11.0-15.0); White Blood Count 26.4 10^3/uL (4.0-11.0)
[2023-01-15 04:11] LABS: Band Neutrophils Absolute 2.1 10^3/uL (0.0-0.3); Lymphocytes Absolute Manual 1.58 10^3/uL (1.20-3.80); Monocytes Absolute Manual 0.52 10^3/uL (0.30-0.80); Segmented Neut Absolute Manual 22.17 10^3/uL (1.4-6.5)
[2023-01-15 04:12] LABS: Anion Gap 18.9; BUN Creatinine Ratio 18.8; Calcium 7.9 mg/dL (8.5-10.1); Carbon Dioxide 19.5 mmol/L (21.0-32.0); Chloride 104 mmol/L (98-107); Chol HDL Ratio 2.5; Cholesterol 103 mg/dL (<=200); Estimated GFR (African America 19 (>=60); Estimated GFR (Non-African Ame 15 (>=60); Glucose 263 mg/dL (74-106); HDL Cholesterol 42 mg/dL (40-60); LDL Cholesterol Calculated 40.4 mg/dL; Potassium 4.4 mmol/L (3.5-5.1); Sodium 138 mmol/L (136-145); Thyroid Stimulating Hormone 0.215 uIU/mL (0.358-3.740); Triglycerides 103 mg/dL (<=150); VLDL CHOLESTEROL 20.6 mg/dL
[2023-01-15 04:34] LABS: INR 5.11; Lactate/Lactic Acid 3.1 mmol/L (0.4-2.0); Prothrombin Time 49.4 sec (9.0-11.6)
--- NOTE | 2023-01-15 07:48 | P.HP_ITS ---
H&P: HPI History of Present Illness Chief complaint: Cough Pain in lungs PNEUMONIA Narrative: Patient presented to the emergency room with increasing shortness of breath. Cough. More of a dry type cough. In ER found to have right lower lobe pneumonia with acute hypoxia with O2 saturation of 83%. Patient does not have supplemental oxygen at home. Was needing 4 L of nasal cannula oxygen to improve her O2 saturations to the mid to low 90s. With the significant degree of hypoxia and the right lower lobe pneumonia patient admitted to inpatient status Review of Systems ROS Status of ROS 10 or more systems reviewed and unremarkable except as noted in history and below Constitutional Denies: fever or chills Ears, nose, mouth, and throat Denies: throat pain Cardiovascular Denies: chest pain or palpitations Respiratory Reports: shortness of breath, cough and chest congestion Gastrointestinal Denies: abdominal pain Genitourinary Denies: painful urination Musculoskeletal Denies: back pain Integumentary/Breast Denies: rash Neurological Denies: headache Psychiatric Denies: anxiety Endocrine Denies: excessive urination PFSH PFSH Social History Smoking status: Never smoker Meds Home Medications and Allergies Home Medications Medication Instructions Recorded Confirmed Type acetaminophen 650 mg 650 mg PO Q8H PRN pain #20 tabs 01/07/23 01/14/23 Rx tablet,extended release (Tylenol 8 Hour) alendronate 70 mg tablet 70 mg PO QWEEK 01/07/23 01/15/23 History amiodarone 200 mg tablet 200 mg PO Q24H 01/07/23 01/14/23 History atorvastatin 40 mg tablet 40 mg PO Q24H 01/07/23 01/14/23 History cetirizine 10 mg tablet 10 mg PO Q24H 01/07/23 01/14/23 History diltiazem HCl 240 mg 240 mg PO Q24H 01/07/23 01/14/23 History capsule,extended release 24 hr doxepin 10 mg capsule 10 mg PO Q12H 01/07/23 01/14/23 History empagliflozin 10 mg tablet 10 mg PO Q24H 01/07/23 01/14/23 History (Jardiance) escitalopram oxalate 10 mg tablet 10 mg PO Q24H 01/07/23 01/14/23 History ferrous sulfate 325 mg (65 mg 325 mg PO Q12H 01/07/23 01/14/23 History iron) tablet furosemide 20 mg tablet 20 mg PO Q24H 01/07/23 01/14/23 History levothyroxine 25 mcg tablet 25 mcg PO Q24H 01/07/23 01/14/23 History liothyronine 5 mcg tablet 5 mcg PO Q24H 01/07/23 01/14/23 History memantine 28 mg capsule 28 mg PO Q24H 01/07/23 01/14/23 History sprinkle,extended release 24hr metformin 500 mg tablet 500 mg PO Q12H 01/07/23 01/14/23 History montelukast 10 mg tablet 10 mg PO Q24H 01/07/23 01/14/23 History olanzapine 2.5 mg tablet 2.5 mg PO .QHS 01/07/23 01/15/23 History orphenadrine citrate 100 mg 100 mg PO DAILY PRN muscle spasm 01/07/23 01/14/23 Rx tablet,extended release #5 tabs pantoprazole 40 mg tablet,delayed 40 mg PO Q12H 01/07/23 01/14/23 History release potassium chloride 10 mEq 10 meq PO Q12H 01/07/23 01/14/23 History tablet,extended release(part/cryst) (Klor-Con M) warfarin 2 mg tablet 2 mg PO .m-f 01/07/23 01/15/23 History Allergies Allergy/AdvReac Type Severity Reaction Status Date / Time penicillin G Allergy Intermediate Verified 01/14/23 20:15 Sulfa (Sulfonamide Allergy Intermediate Verified 01/14/23 20:15 Antibiotics) Exam Constitutional Vital Signs, click to edit/add: Last Vital Signs Temp 97.6 F 01/15/23 05:44 Pulse 64 01/15/23 05:54 Resp 18 01/15/23 05:44 BP 105/54 01/15/23 05:44 Pulse Ox 94 L 01/15/23 05:44 O2 Del Method Nasal Cannula 01/15/23 05:44 O2 Flow Rate 3 01/15/23 05:44 Documenting provider has reviewed patient's vital signs: yes Common normals: no apparent distress HENMT Common normals: moist oral mucous membranes Chest Common normals: inspection of chest normal Respiratory Common normals: no retractions and no use of accessory muscles; abnormal respiratory effort (Mild distress with mild conversational dyspnea) and not clear to ascultation bilaterally Auscultation: rhonchi, wheezes and egophony (Right lower lobe) Cardio Common normals: regular rate, regular rhythm and no murmurs Extremity Common normals: normal to inspection (No edema) Results Labs Labs: Short CBC 01/14/23 01/15/23 Range/Units 20:43 03:37 WBC 27.7 H 26.4 H (4.0-11.0) 10^3/uL Hgb 12.1 10.3 L (12.0-16.0) g/dL Hct 39.1 33.1 L (36.0-48.0) % Plt Count 263 222 (150-450) 10^3/uL BMP 01/14/23 01/15/23 20:43 03:37 Sodium 139 138 Potassium 4.5 4.4 Chloride 102 104 Carbon Dioxide 22.8 19.5 L BUN 52.0 H 54.0 H Creatinine 2.94 H 2.87 H Glucose 153 H 263 H Calcium 8.4 L 7.9 L Assessment and Plan Assessment and Plan (1) Community acquired pneumonia: (2) Congestive heart failure: Onset Date: Unknown (3) Sepsis: (4) Supratherapeutic INR: (5) Hypoxia: Plan Respiratory distress, acute hypoxic respiratory failure requiring supplemental oxygen of 4 L. O2 saturation 83% in ER. Patient also with significant leukocytosis and positive lactate meeitng criteria for severe sepsis (leukocytosis, increased respiratory rate, positive lactate, leukocytosis). IV antibiotics, aerosol treatments added, try to obtain sputum culture. Did not give fluid resuscitation consistent with severe sepsis secondary to history of heart failure and cardiomyopathy in the past Elevated BNP I think this is more related to chronic kidney disease as her lung exam is not consistent with heart failure and she has no peripheral edema. Check echocardiogram Chronic kidney disease stage III-somewhat deteriorated. Better from initial admissions we will continue to monitor encourage p.o. intake. Iron deficiency anemia-monitor daily her hemoglobin is down somewhat so we will check stool for occult blood History of nonischemic cardiomyopathy-on amiodarone and Coumadin. Coumadin toxicity-we will give 1 dose of vitamin K high risk of bleeding based on her age NIDDM-add insulin sliding scale. With steroids likely to be elevated. Generalized anxiety disorder-continue home medications Hypothyroidism-continue with medications TSH is normal GERD-with the anemia and the elevated INR will place patient on IV Protonix for better gastric protection With acute hypoxia and pneumonia and complicated by her nonischemic cardiomyopathy will keep patient as inpatient status likely 2 to 3-day hospital stay
[2023-01-15 08:39] LABS: Glucometer 270 mg/dL (74-106)
[2023-01-15] MEDS: CETIRIZINE HCL 10 MG TABLET PO (08:54)
[2023-01-15] MEDS: PANTOPRAZOLE SODIUM 40 MG VIAL IV (08:54)
[2023-01-15] MEDS: ESCITALOPRAM 10 MG TABLET PO (08:55)
[2023-01-15] MEDS: AMIODARONE HCL 200 MG TABLET PO (08:55)
[2023-01-15] MEDS: POTASSIUM CHLORIDE 10 MEQ ER TABLET PO ×2 (08:55→20:35)
[2023-01-15] MEDS: MEMANTINE HCL 28 MG CAP XR PO (08:55)
[2023-01-15] MEDS: METFORMIN HCL 500 MG TABLET PO ×2 (08:55→20:35)
[2023-01-15] MEDS: DOXEPIN HCL 10 MG CAPSULE PO ×2 (08:55→20:35)
[2023-01-15] MEDS: SENNOSIDES 8.6 MG TABLET PO (08:55)
[2023-01-15] MEDS: LEVOTHYROXINE SODIUM 25 MCG TABLET PO (08:55)
[2023-01-15] MEDS: DILTIAZEM HCL 240 MG CAP.ER.24H PO (08:55)
[2023-01-15] MEDS: FERROUS SULFATE 325 MG TABLET PO ×2 (08:55→20:38)
[2023-01-15] MEDS: PHYTONADIONE (VIT K1) 10 MG/ML AMPUL 5 MG PO (08:56)
[2023-01-15] MEDS: LIOTHYRONINE SODIUM 5 MCG TABLET PO (09:01)
--- NOTE | 2023-01-15 10:37 | SWNOTE1 ---
Facility Service Associate spoke with case management and pt/family would like a list of private caregivers. Pt currently has meals on wheels being delivered and help from family as needed.
[2023-01-15] MEDS: IPRATROPIUM/ALBUTEROL SULFATE 3 ML AMPUL.NEB IH ×3 (10:43→21:00)
--- NOTE | 2023-01-15 10:43 | CM.NOTE ---
Important Message From Medicare discussed with pt, pt verbalizes understanding and signs paper. Original given to pt and copy placed on pt's chart.
[2023-01-15 10:47] LABS: Occult Blood Positive
[2023-01-15 11:13] LABS: Glucometer 340 mg/dL (74-106)
[2023-01-15] MEDS: ACETAMINOPHEN 325 MG TABLET 650 MG PO ×2 (11:13→17:12)
[2023-01-15] MEDS: INSULIN ASPART 300 UNIT/3 ML PEN SUBQ ×3 (11:33→20:37)
--- NOTE | 2023-01-15 11:33 | SWNOTE1 ---
SW met with pt and daughter in room. Pt lives at home with family. Pt does use a walker to get around. Pt is not current with any HH at this time. Pt has meals on wheels coming in currently. SW provided pt and daughter with private caregiver list. They were interested in getting some extra help. Pt's daughter did voice pt has a nurse from her insurance that comes out once a month. At this time pt and family denied any other needs. SW to follow as needed.
[2023-01-15 17:10] LABS: Glucometer 241 mg/dL (74-106)
[2023-01-15 19:37] LABS: Glucometer 232 mg/dL (74-106)
[2023-01-15] MEDS: OLANZapine 5 MG TABLET 2.5 MG PO (20:36)
[2023-01-15] MEDS: MONTELUKAST SODIUM 10 MG TABLET PO (20:36)
[2023-01-15] MEDS: ATORVASTATIN CALCIUM 40 MG TABLET PO (20:38)
[2023-01-16] VITALS (24 sets, daily range): BP systolic 104–128; BP diastolic 45–74; PULSE 64–78; RESP 18–24; TEMP 36.6–37; O2SAT 86–96
[2023-01-16] MEDS: IPRATROPIUM/ALBUTEROL SULFATE 3 ML AMPUL.NEB IH ×4 (04:15→21:35)
[2023-01-16 04:55] LABS: Hematocrit 29.1 % (36.0-48.0); Hemoglobin 9.1 g/dL (12.0-16.0); Mean Corpuscular HGB Conc 31.3 g/dL (29.9-35.2); Mean Corpuscular Hemoglobin 31.4 pg (26.7-34.0); Mean Corpuscular Volume 100.3 fL (81.0-99.0); Mean Platelet Volume 12.2 fL (9.5-13.5); Platelet Count 213 10^3/uL (150-450); Red Cell Distribution Width 14.5 % (11.0-15.0); White Blood Count 24.9 10^3/uL (4.0-11.0)
[2023-01-16] MEDS: LIOTHYRONINE SODIUM 5 MCG TABLET PO (05:06)
[2023-01-16 05:08] LABS: Anion Gap 17.5; Calcium 8.1 mg/dL (8.5-10.1); Chloride 103 mmol/L (98-107); Estimated GFR (African America 17 (>=60); Estimated GFR (Non-African Ame 14 (>=60); Glucose 133 mg/dL (74-106); Potassium 4.5 mmol/L (3.5-5.1); Sodium 137 mmol/L (136-145)
[2023-01-16 05:09] LABS: INR 1.67; Prothrombin Time 17.2 sec (9.0-11.6)
[2023-01-16 05:45] LABS: Band Neutrophils Absolute 0.7 10^3/uL (0.0-0.3); Hypochromasia 3+; Lymphocytes Absolute Manual 1.49 10^3/uL (1.20-3.80); Metamyelocytes Absolute Manual 0.49; Monocytes Absolute Manual 0.24 10^3/uL (0.30-0.80); Poikilocytosis 1+; Segmented Neut Absolute Manual 21.91 10^3/uL (1.4-6.5)
[2023-01-16] MEDS: LEVOTHYROXINE SODIUM 25 MCG TABLET PO (07:43)
[2023-01-16] MEDS: CEFTRIAXONE 1,000 MG in 0.9 % SODIUM CHLORIDE 50 ML 100 MG IV (07:43)
--- NOTE | 2023-01-16 07:43 | P.PN_ITS ---
Progress Note: Subjective Subjective Interval history: Patient still feels significant weakness. Not been up and ambulating yet today. Exam Constitutional Vital Signs, click to edit/add: Last Vital Signs Temp 97.9 F 01/16/23 05:00 Pulse 71 01/16/23 06:00 Resp 20 01/16/23 05:00 BP 128/74 01/16/23 05:00 Pulse Ox 95 01/16/23 05:00 O2 Del Method Nasal Cannula 01/16/23 05:00 O2 Flow Rate 1 01/16/23 05:00 Documenting provider has reviewed patient's vital signs: yes Common normals: no apparent distress HENMT Common normals: moist oral mucous membranes Chest Common normals: inspection of chest normal Respiratory Common normals: no retractions and no use of accessory muscles; abnormal respiratory effort (Mild distress with mild conversational dyspnea) and not clear to ascultation bilaterally Auscultation: rhonchi and egophony (Right lower lobe) Cardio Common normals: regular rate, regular rhythm and no murmurs Extremity Common normals: normal to inspection (No edema) Progress Note: Objective Labs Labs: Short CBC 01/16/23 Range/Units 04:12 WBC 24.9 H (4.0-11.0) 10^3/uL Hgb 9.1 L (12.0-16.0) g/dL Hct 29.1 L (36.0-48.0) % Plt Count 213 (150-450) 10^3/uL BMP 01/16/23 04:12 Sodium 137 Potassium 4.5 Chloride 103 Carbon Dioxide 21.0 BUN 69.0 H Creatinine 3.13 H Glucose 133 H Calcium 8.1 L Progress Note: A&P Assessment and Plan (1) Community acquired pneumonia: (2) Congestive heart failure: Onset Date: Unknown (3) Sepsis: Assessment and Plan: Pa (4) Supratherapeutic INR: (5) Hypoxia: Plan Respiratory distress, acute hypoxic respiratory failure requiring supplemental oxygen of 4 L. Supplemental oxygen down to 1 L, white blood cell count slowly improving, continue with current antibiotic regiment of Rocephin and azithromycin. Continue with aerosols. Wheezing has improved. Holding off on steroids due to his glucose control Elevated BNP I think this is more related to chronic kidney disease as her lung exam is not consistent with heart failure and she has no peripheral edema. Check on echocardiogram Chronic kidney disease stage III-somewhat deteriorated. Small fluid bolus today. Likely deteriorated secondary to hyperglycemia. Acute blood loss anemia secondary to acute upper gastrointestinal bleeding-on Protonix, complicated by Coumadin toxicity, repeat CBC later this morning. Iron deficiency anemia-monitor daily her hemoglobin is down somewhat so we will check stool for occult blood History of nonischemic cardiomyopathy-on amiodarone and Coumadin.-Check on echo Coumadin toxicity-level back down today but positive occult blood so we will continue to hold Coumadin for 1 additional day NIDDM-add insulin sliding scale. Due to kidney function elevation we will skip the Jardiance and metformin, try patient on glimepiride Generalized anxiety disorder-continue home medications Hypothyroidism-continue with medications TSH is normal GERD-with the anemia and the elevated INR will place patient on IV Protonix for better gastric protection Patient slowly improving her strength. Her oxygen saturation is improved. May need placement. Physical therapy for evaluation and treatment with occupational therapy if needed placement
[2023-01-16] MEDS: 0.9 % SODIUM CHLORIDE 250 ML IV.SOLN 10 ML IV (07:44)
[2023-01-16] MEDS: CETIRIZINE HCL 10 MG TABLET PO (08:27)
[2023-01-16] MEDS: DOXEPIN HCL 10 MG CAPSULE PO ×2 (08:28→19:38)
[2023-01-16] MEDS: POTASSIUM CHLORIDE 10 MEQ ER TABLET PO ×2 (08:28→19:38)
[2023-01-16] MEDS: FERROUS SULFATE 325 MG TABLET PO ×2 (08:28→19:38)
[2023-01-16] MEDS: MEMANTINE HCL 28 MG CAP XR PO (08:28)
[2023-01-16] MEDS: ESCITALOPRAM 10 MG TABLET PO (08:28)
[2023-01-16] MEDS: PANTOPRAZOLE SODIUM 40 MG VIAL IV (08:29)
[2023-01-16] MEDS: AZITHROMYCIN 500 MG in 0.9 % SODIUM CHLORIDE 250 ML 250 MG IV (08:29)
[2023-01-16] MEDS: AMIODARONE HCL 200 MG TABLET PO (08:30)
[2023-01-16] MEDS: GLIMEPIRIDE 2 MG TABLET PO (08:37)
[2023-01-16] MEDS: 0.9 % SODIUM CHLORIDE 500 ML 250 ML IV (10:01)
--- NOTE | 2023-01-16 10:53 | SWNOTE1 ---
SW reviewed OT note and pt was independent with OT, no further OT needed. SW had order for possible nursing home placement, unsure if pt will qualify, will see what physical therapy recommends. Pt will be a precert of SNF needed.
[2023-01-16 11:03] LABS: Hematocrit 28.9 % (36.0-48.0); Hemoglobin 9.1 g/dL (12.0-16.0); Mean Corpuscular HGB Conc 31.5 g/dL (29.9-35.2); Mean Corpuscular Hemoglobin 31.8 pg (26.7-34.0); Mean Platelet Volume 11.6 fL (9.5-13.5); Platelet Count 211 10^3/uL (150-450); Red Blood Count 2.86 10^6/uL (4.20-5.40); Red Cell Distribution Width 14.6 % (11.0-15.0); White Blood Count 25.4 10^3/uL (4.0-11.0)
[2023-01-16 11:39] LABS: Glucometer 123 mg/dL (74-106)
--- NOTE | 2023-01-16 13:47 | SWNOTE1 ---
UYEN met with pt to discuss the possibility of needing home health. Physical therapy recommended. Pt is open to home health. SW mentioned to her going to SNF, but she stated she does not want to go to SNF. Pt is agreeable to Home Health and she does not have a preference on company. Pt voicing her throat hurts, SW offered water, but she is just going to rest and water does not help. UYEN got permission to call pt's daughter to see if they have a preference on companies. UYEN spoke with daughter, Shelby, and she would like [facility]. [facility]
--- NOTE | 2023-01-16 15:13 | SWNOTE1 ---
[facility] is reviewing referral and running pt's benefits.
[2023-01-16 16:38] LABS: Glucometer 47 mg/dL (74-106)
[2023-01-16 16:44] LABS: Glucometer 49 mg/dL (74-106)
[2023-01-16] MEDS: BENZOCAINE/MENTHOL SORE THROAT LOZENGE 1 LOZENGE MM (17:03)
[2023-01-16 17:07] LABS: Glucometer 96 mg/dL (74-106)
[2023-01-16 19:24] LABS: Glucometer 101 mg/dL (74-106)
[2023-01-16] MEDS: MONTELUKAST SODIUM 10 MG TABLET PO (19:38)
[2023-01-16] MEDS: OLANZapine 5 MG TABLET 2.5 MG PO (19:38)
[2023-01-16] MEDS: ACETAMINOPHEN 325 MG TABLET 650 MG PO (19:38)
[2023-01-16] MEDS: ATORVASTATIN CALCIUM 40 MG TABLET PO (19:39)
[2023-01-16] MEDS: DEXTROSE/DEXTRIN/MALTOSE 31 GM GEL.INSTANT GLUCOSE 30 GM PO (21:32)
[2023-01-16 22:04] LABS: Glucometer 75 mg/dL (74-106)
[2023-01-16 22:40] LABS: Glucometer 109 mg/dL (74-106)
[2023-01-17] VITALS (20 sets, daily range): BP systolic 134–170; BP diastolic 47–59; PULSE 66–82; RESP 16–24; TEMP 36.4–36.8; O2SAT 91–97
[2023-01-17 04:15] LABS: Glucometer 54 mg/dL (74-106)
[2023-01-17] MEDS: DEXTROSE/DEXTRIN/MALTOSE 31 GM GEL.INSTANT GLUCOSE 30 GM PO ×3 (04:22→21:08)
[2023-01-17] MEDS: LIOTHYRONINE SODIUM 5 MCG TABLET PO (04:29)
[2023-01-17 04:54] LABS: Basophils Percent Auto 0.1 % (0.2-2.0); Eosinophils Absolute Auto 0.1 10^3/uL (0.0-0.7); Eosinophils Percent Auto 0.4 % (0.9-7.0); Hematocrit 29.4 % (36.0-48.0); Hemoglobin 9.2 g/dL (12.0-16.0); Immature Granulocytes Abs Auto 0.16 10^3/uL (0.00-0.03); Immature Granulocytes Pct Auto 0.9 % (0.0-0.5); Lymphocytes Absolute Auto 1.5 10^3/uL (1.2-3.8); Lymphocytes Percent Auto 8.9 % (20.5-60.0); Mean Corpuscular HGB Conc 31.3 g/dL (29.9-35.2); Mean Corpuscular Hemoglobin 31.6 pg (26.7-34.0); Monocytes Absolute Auto 1.1 10^3/uL (0.3-0.8); Monocytes Percent Auto 6.4 % (1.7-12.0); Neutrophils Absolute Auto 14.1 10^3/uL (1.4-6.5); Neutrophils Percent Auto 83.3 % (43.0-75.0); Platelet Count 216 10^3/uL (150-450); Red Blood Count 2.91 10^6/uL (4.20-5.40); Red Cell Distribution Width 14.7 % (11.0-15.0); White Blood Count 16.9 10^3/uL (4.0-11.0)
[2023-01-17] MEDS: IPRATROPIUM/ALBUTEROL SULFATE 3 ML AMPUL.NEB IH ×4 (04:55→20:13)
[2023-01-17 05:02] LABS: Glucometer 212 mg/dL (74-106)
[2023-01-17 05:07] LABS: INR 1.06; Prothrombin Time 11.2 sec (9.0-11.6)
[2023-01-17 05:15] LABS: Anion Gap 14.6; BUN Creatinine Ratio 21.4; Calcium 8.4 mg/dL (8.5-10.1); Carbon Dioxide 20.8 mmol/L (21.0-32.0); Chloride 109 mmol/L (98-107); Estimated GFR (African America 19 (>=60); Estimated GFR (Non-African Ame 15 (>=60); Potassium 4.4 mmol/L (3.5-5.1); Sodium 140 mmol/L (136-145)
[2023-01-17 05:20] LABS: Glucose 40 mg/dL (74-106)
--- NOTE | 2023-01-17 07:41 | P.PN_ITS ---
Progress Note: Subjective Subjective Interval history: Patient is seems pretty somnolent this morning. Improved ambulation yesterday. Needed to get placed back on supplemental oxygen at night. Exam Constitutional Vital Signs, click to edit/add: Last Vital Signs Temp 97.5 F L 01/17/23 04:23 Pulse 68 01/17/23 05:55 Resp 18 01/17/23 04:55 BP 170/59 H 01/17/23 04:23 Pulse Ox 97 01/17/23 04:55 O2 Del Method Nasal Cannula 01/17/23 04:55 O2 Flow Rate 2 01/17/23 04:55 Documenting provider has reviewed patient's vital signs: yes Common normals: no apparent distress HENMT Common normals: moist oral mucous membranes Chest Common normals: inspection of chest normal Respiratory Common normals: no retractions and no use of accessory muscles; abnormal respiratory effort (Mild distress with mild conversational dyspnea) and not clear to ascultation bilaterally Auscultation: rhonchi and egophony (Right lower lobe) Cardio Common normals: regular rate, regular rhythm and no murmurs Extremity Common normals: normal to inspection (No edema) Progress Note: Objective Labs Labs: Short CBC 01/16/23 01/17/23 Range/Units 10:53 03:58 WBC 25.4 H 16.9 H (4.0-11.0) 10^3/uL Hgb 9.1 L 9.2 L (12.0-16.0) g/dL Hct 28.9 L 29.4 L (36.0-48.0) % Plt Count 211 216 (150-450) 10^3/uL BMP 01/17/23 03:58 Sodium 140 Potassium 4.4 Chloride 109 H Carbon Dioxide 20.8 L BUN 62.0 H Creatinine 2.90 H Glucose 40 L* Calcium 8.4 L Progress Note: A&P Assessment and Plan (1) Community acquired pneumonia: (2) Congestive heart failure: Onset Date: Unknown (3) Sepsis: Assessment and Plan: Pa (4) Supratherapeutic INR: (5) Hypoxia: Plan Leukocytosis, positive lactate, respiratory distress, acute hypoxic respiratory failure requiring supplemental oxygen of 4 L due to right lower lobe pneumonia resulting in severe sepsis.. Supplemental oxygen down to 1 L yesterday, back up to 2 L this morning. Try to wean that again today. Check chest x-ray. White blood cell count is improving so maintain current antibiotic regiment Possible ventricular tachycardia-received phone call message from nurse patient had 2-minute run of [employer]. By my review it was not fast enough for ventricular tachycardia nor the right complexes. This looks more like her dual- chamber pacemaker kicked in. Consult to cardiology. Check magnesium level. Repeat thyroid levels. Elevated BNP I think this is more related to chronic kidney disease as her lung exam is not consistent with heart failure and she has no peripheral edema. Repeat BNP this a.m. Chronic kidney disease stage III-somewhat improved this morning Acute blood loss anemia with positive Hemoccult, secondary to acute upper gastrointestinal bleeding-on Protonix, complicated by Coumadin toxicity, repeat blood count is stable so restart Coumadin therapy. We will give 1 dose of heparin this morning. Coumadin to start this evening Iron deficiency anemia-monitor daily her hemoglobin is down somewhat so we will check stool for occult blood History of nonischemic cardiomyopathy-on amiodarone and Coumadin.-Check on echo, see above Coumadin toxicity-level back down today but positive occult blood so we will continue to hold Coumadin for 1 additional day-down to normal, restart tonight. With bleeding appearing to have stopped NIDDM-add insulin sliding scale. Due to kidney function elevation we will skip the Jardiance and metformin, try patient on glimepiride Generalized anxiety disorder-continue home medications Hypothyroidism-continue with medications TSH is normal GERD-with the anemia and the elevated INR will place patient on IV Protonix for better gastric protection Patient ambulating well and if she should be able to be discharged home. White blood cell count is improving but not back to baseline. Not able to be weaned off of supplemental oxygen so additional 1 day possibly to to continue with overall improvement
--- NOTE | 2023-01-17 07:47 | XR_ITS ---
[address] [address] Patient Name: ASTON ZULUAGA MRN: [id number] date: 1935 Sex: F Assigned Patient Location: [place] Current Patient Location: [place] Accession/Order Number: [id number] Exam Date: 01/17/2023 08:20 Report Date: 01/17/2023 08:54 At the request of: COLETTE MÉNDEZ Procedure: XR chest 2V EXAMINATION: XR chest 2V HISTORY: Follow-up on pneumonia COMPARISON: 01/14/2023 TECHNIQUE: PA and lateral FINDINGS: LUNGS: Diffuse right parenchymal infiltrates, increased in the upper lung zone, decreased in the lower lung zone. Slight increase in left basilar infiltrate VASCULATURE: No increased pulmonary vasculature. PLEURA: No pneumothorax. Small bilateral pleural effusions, slightly increased CARDIAC: No cardiomegaly or cardiac silhouette abnormality. MEDIASTINUM: No visible mass or adenopathy. Left pacemaker. Aortic atherosclerosis BONES: No fracture or visible bone lesion. OTHER: Negative. XR/XR chest 2V IMPRESSION: Multifocal pneumonia, increased in the right upper and left lung bases, decreased in the right lung base Electronically authenticated by: JUAN JOSÉ CHENG Date: 01/17/2023 08:54
[2023-01-17 07:54] LABS: Free T3 0.82 pg/mL (2.18-3.98); Magnesium 2.5 mg/dL (1.8-2.4)
[2023-01-17] MEDS: POTASSIUM CHLORIDE 10 MEQ ER TABLET PO ×2 (08:49→19:53)
[2023-01-17] MEDS: ESCITALOPRAM 10 MG TABLET PO (08:49)
[2023-01-17] MEDS: DILTIAZEM HCL 240 MG CAP.ER.24H PO (08:49)
[2023-01-17] MEDS: FERROUS SULFATE 325 MG TABLET PO ×2 (08:49→19:56)
[2023-01-17] MEDS: CETIRIZINE HCL 10 MG TABLET PO (08:50)
[2023-01-17] MEDS: DOXEPIN HCL 10 MG CAPSULE PO ×2 (08:50→19:53)
[2023-01-17] MEDS: AMIODARONE HCL 200 MG TABLET PO (08:50)
[2023-01-17] MEDS: FUROSEMIDE 40 MG/4 ML VIAL 60 MG IVP (08:50)
[2023-01-17] MEDS: MEMANTINE HCL 28 MG CAP XR PO (08:50)
[2023-01-17] MEDS: PANTOPRAZOLE SODIUM 40 MG VIAL IV (08:50)
[2023-01-17] MEDS: LEVOTHYROXINE SODIUM 25 MCG TABLET PO (08:50)
[2023-01-17] MEDS: AZITHROMYCIN 500 MG in 0.9 % SODIUM CHLORIDE 250 ML 200 MG IV (08:51)
[2023-01-17] MEDS: CEFTRIAXONE 1,000 MG in 0.9 % SODIUM CHLORIDE 50 ML 100 MG IV (08:51)
[2023-01-17] MEDS: 0.9 % SODIUM CHLORIDE 250 ML IV.SOLN 10 ML IV (08:51)
--- NOTE | 2023-01-17 11:14 | PT.DAILY ---
Physical Therapy Daily Note PT Daily Note/Assess Start: 01/17/23 11:09 Freq: Status: Active Protocol: Document 01/17/23 11:09 NANIBLASSTEPHANE (Rec: 01/17/23 11:14 NANIMADELYN [id number]) Physical Therapy Daily Note/Assessment Time In/Time Out Time In 10:25 Time Out 10:35 Pain In Pain N/A Pain Out Pain N/A Subjective Subjective Pt using restroom upon arrival . Nursing present. Pt OK with therapist staying to assist with walking back to bed. Pt not feeling well this morning. Coughing alot - painful to cough. Therapeutic Exercise Time Therapeutic Exercise Minutes (minutes) 8 Therapeutic Exercise Units 1 Therapeutic Exercise Treatment Therapeutic Exercise Treatment Seated ex complete at EOB unsupported 10x ea - AP, LAQ, marches, abd step outs, add squeezes . Supine heel slides, abd slides, GS, QS also 10x ea to maintain mobility and strength. Therapeutic Activity Time Therapeutic Activity Minutes (minutes) 2 Therapeutic Activity Units 0 Therapeutic Activity Treatment Bed Mobility Ability Standby Assistance Therapeutic Activity Comments Pt amb 20' from restroom with RW SBA and assist for IV pole and O2 lines. Sits EOB to performs seated ex - min SOB and coughing spell. Sit>supine SBA with increased time to complete. Remains supine upon completion with call light in reach and needs met. Total Physical Therapy Time Total Therapy Minutes 10 Total Physical Therapy Units 1 Summary Daily Note Summary Limited session due to coughing spell and pt not feeling well this morning. Cooperative with seated/supine ex but overall is just more fatigued today.
--- NOTE | 2023-01-17 11:30 | RESP.RT ---
titrate down to 1L
[2023-01-17 14:19] LABS: Glucometer 64 mg/dL (74-106)
--- NOTE | 2023-01-17 14:48 | SWNOTE1 ---
No discharge today for pt, SW sent updates to [facility].
--- NOTE | 2023-01-17 15:12 | PC.NURSE ---
1415 - Patient called out to use the bathroom. RN checked her blood glucose before getting up because patient was diaphoretic. The stanislav read 70. RN assisted patient back to the bed after using restroom. Checked stanislav reading again it was 62. RN double check with the glucometer and it read 64. At this point a tiger text was sent to the provider to notify of dropping blood glucose. Patient had ate lunch at 1310. she ate half a grilled cheese and a bowl of tomato soup. And drank a starry. Informed physician of all of this. 1430 - RN used nursing judgement that since patient had ate a decent lunch and her blood glucose was dropping that oral glucose should be given. Patient was able to consume it and tolerated well. 1445- Physician had messaged RN back and said to give the PRN half amp of D50. 1450 - Patient's blood glucose was rechecked at 126 before giving amp of D50. RN notified physician and stated that she was going to not give the D50 at this time since the oral glucose brought it up but if patient dropped again RN would give the amp of D50. Physician replied with okay, sounds good . 1500 - Patient was no longer diaphoretic and was resting comfortably with eyes closed.
[2023-01-17 15:42] LABS: Glucometer 84 mg/dL (74-106)
[2023-01-17 15:50] LABS: Glucometer 75 mg/dL (74-106)
[2023-01-17] MEDS: ACETAMINOPHEN 325 MG TABLET 650 MG PO (16:33)
[2023-01-17] MEDS: WARFARIN SODIUM 5 MG TABLET PO (16:34)
[2023-01-17 16:38] LABS: Glucometer 111 mg/dL (74-106)
--- NOTE | 2023-01-17 16:48 | PC.NURSE ---
1530 - Patient called out to use the bathroom, RN decided to check glucose since patient had been running low. Patient was 86. RN assisted patient to the bathroom and then back to bed. Call light was within reach and patient denied any further needs at this time. 1545- Patient's stanislav monitor was alarming for low blood sugar. RN went back into room and checked patient glucose with stanislav. It was reading 56. RN checked with glucometer and it read 70. RN got patient apple juice, pudding, andpeanut butter crackers since patient was trending down. Patient remained asymptomatic during this episode. Patient was agreeable to eating and drinking. RN informed patient we would recheck blood glucose again in about 20 minutes. 1615 - Patient's blood glucose was rechecked and it was 111. Patient denies any further needs at this time.
[2023-01-17 17:02] LABS: Glucometer 92 mg/dL (74-106)
[2023-01-17] MEDS: BENZOCAINE/MENTHOL SORE THROAT LOZENGE 1 LOZENGE MM (17:14)
--- NOTE | 2023-01-17 17:25 | P.CACN_ITS ---
History of Present Illness History of Present Illness Consult date: 01/17/23 Requesting physician: Chase Nolan Consult reason: atrial fibrillation (abnormal rhythm on telemetry), congestive heart failure, known to you and shortness of breath Chief complaint: Cough Pain in lungs PNEUMONIA Narrative: Patient is a 87 y/o F known to [facility] who has a PMHx of paroxysmal a.fib/flutter, mitral valve regurg, aortic stenosis, SSS s/p PPM, HTN, CKD stage II, HFrEF, HLD, DM type II who presented to [facility] with c/o worsening SOB and cold symptoms. She was found to have acute hypoxic respiratory failure secondary to PNA resulting in severe sepsis. She has been treated with antibiotics and supplemental O2. This AM on telemetry, she was noted to have a wide complex rhythm. Patient was sleeping during this time and denies having any known sx's. She currently c/o fatigue and SOB. Denies CP, palpitations, dizziness/LH, leg swelling. She had a BNP done this AM which was significantly elevated ~10,000. She received IV lasix 60mg x1 with good urine output. Review of Systems ROS Constitutional Reports: fatigue; Denies: fever or chills Eyes Denies: change in vision or blurry vision Cardiovascular Denies: chest pain, palpitations or edema Respiratory Reports: shortness of breath and cough Gastrointestinal Denies: abdominal pain or nausea Genitourinary Denies: painful urination or difficulty voiding Musculoskeletal Denies: extremity pain or extremity swelling Integumentary/Breast Denies: rash or itching Neurological Denies: numbness in extremities or dizziness Psychiatric Denies: anxiety or change in sleep pattern Hematologic/Lymphatic Denies: easy bruising or easy bleeding PFSH PFSH Social History Smoking status: Never smoker Meds Home Medications and Allergies Home Medications Medication Instructions Recorded Confirmed Type acetaminophen 650 mg 650 mg PO Q8H PRN pain #20 tabs 01/07/23 01/14/23 Rx tablet,extended release (Tylenol 8 Hour) alendronate 70 mg tablet 70 mg PO QWEEK 01/07/23 01/15/23 History amiodarone 200 mg tablet 200 mg PO Q24H 01/07/23 01/14/23 History atorvastatin 40 mg tablet 40 mg PO Q24H 01/07/23 01/14/23 History cetirizine 10 mg tablet 10 mg PO Q24H 01/07/23 01/14/23 History diltiazem HCl 240 mg 240 mg PO Q24H 01/07/23 01/14/23 History capsule,extended release 24 hr doxepin 10 mg capsule 10 mg PO Q12H 01/07/23 01/14/23 History empagliflozin 10 mg tablet 10 mg PO Q24H 01/07/23 01/14/23 History (Jardiance) escitalopram oxalate 10 mg tablet 10 mg PO Q24H 01/07/23 01/14/23 History ferrous sulfate 325 mg (65 mg 325 mg PO Q12H 01/07/23 01/14/23 History iron) tablet furosemide 20 mg tablet 20 mg PO Q24H 01/07/23 01/14/23 History levothyroxine 25 mcg tablet 25 mcg PO Q24H 01/07/23 01/14/23 History liothyronine 5 mcg tablet 5 mcg PO Q24H 01/07/23 01/14/23 History memantine 28 mg capsule 28 mg PO Q24H 01/07/23 01/14/23 History sprinkle,extended release 24hr metformin 500 mg tablet 500 mg PO Q12H 01/07/23 01/14/23 History montelukast 10 mg tablet 10 mg PO Q24H 01/07/23 01/14/23 History olanzapine 2.5 mg tablet 2.5 mg PO .QHS 01/07/23 01/15/23 History orphenadrine citrate 100 mg 100 mg PO DAILY PRN muscle spasm 01/07/23 01/14/23 Rx tablet,extended release #5 tabs pantoprazole 40 mg tablet,delayed 40 mg PO Q12H 01/07/23 01/14/23 History release potassium chloride 10 mEq 10 meq PO Q12H 01/07/23 01/14/23 History tablet,extended release(part/cryst) (Klor-Con M) warfarin 2 mg tablet 2 mg PO .-f 01/07/23 01/15/23 History Allergies Allergy/AdvReac Type Severity Reaction Status Date / Time penicillin G Allergy Intermediate Verified 01/14/23 20:15 Sulfa (Sulfonamide Allergy Intermediate Verified 01/14/23 20:15 Antibiotics) Exam Constitutional Vital Signs, click to edit/add: Last Vital Signs Temp 98.2 F 01/17/23 13:41 Pulse 82 01/17/23 16:31 Resp 24 01/17/23 16:31 BP 134/47 L 01/17/23 13:41 Pulse Ox 92 L 01/17/23 16:31 O2 Del Method Nasal Cannula 01/17/23 16:31 O2 Flow Rate 1 01/17/23 16:31 Common normals: no apparent distress, oriented x3 and no limitations General appearance: cooperative and comfortable Orientation/consciousness: Yes awake HENMT Common normals: normocephalic and head/scalp atraumatic Nose: external nose normal External ear: external ears normal Eye Common normals: EOMs intact bilaterally Neck & C-Spine Common normals: full ROM, supple and no JVD Chest Common normals: inspection of chest normal Chest: symmetrical chest wall rise Respiratory Common normals: normal respiratory effort, no retractions and no use of accessory muscles Auscultation: crackles Laterality: right in the lower lung krishnan, left in the lower lung krishnan and bilateral Cardio Common normals: no JVD, regular rate and regular rhythm Heart sounds: murmur systolic Peripheral pulses: pulses 2+ throughout GI Common normals: Normal to inspection, nondistended, normoactive bowel sounds present and soft to palpation Extremity Common normals: normal to inspection and full ROM Neuro Common normals: oriented x3 and moves all extremities Psych Common normals: mental status grossly normal, thought process normal and cooperative Results Labs and Meds Lab results: Coagulation 01/17/23 Range/Units 03:58 PT 11.2 (9.0-11.6) sec CBC 01/17/23 Range/Units 03:58 WBC 16.9 H (4.0-11.0) 10^3/uL RBC 2.91 L (4.20-5.40) 10^6/uL Hgb 9.2 L (12.0-16.0) g/dL Hct 29.4 L (36.0-48.0) % Plt Count 216 (150-450) 10^3/uL Neut # (Auto) 14.1 H (1.4-6.5) 10^3/uL Lymph # (Auto) 1.5 (1.2-3.8) 10^3/uL [place] # (Auto) 1.1 H (0.3-0.8) 10^3/uL Eos # (Auto) 0.1 (0.0-0.7) 10^3/uL Baso # (Auto) 0.0 (0.0-0.1) 10^3/uL Comprehensive Metabolic Panel 01/17/23 Range/Units 03:58 Sodium 140 (136-145) mmol/L Potassium 4.4 (3.5-5.1) mmol/L Chloride 109 H (98-107) mmol/L Carbon Dioxide 20.8 L (21.0-32.0) mmol/L BUN 62.0 H (7.0-18.0) mg/dL Creatinine 2.90 H (0.55-1.02) mg/dL Glucose 40 L* (74-106) mg/dL Calcium 8.4 L (8.5-10.1) mg/dL Intake and Output 01/17/23 01/17/23 01/17/23 07:59 15:59 23:59 Intake Total 360 / 1480 500 / 500 Output Total 350 / 750 1300 / 1700 400 / 1700 Balance 730 -800 / -1200 -400 / -1200 Intake: Oral 360 / 680 200 / 200 IV 300 / 300 Azithromycin 500 mg In 0.9 % 250 / 250 Sodium Chloride 250 ml @ 250 mls/hr IV Q24H [facility] Rx#:[id number] Ceftriaxone 1,000 mg In 0.9 % 50 / 50 Sodium Chloride 50 ml @ 100 mls /hr IV Q24H [facility] Rx#:[id number] Output: Urine 350 / 750 1300 / 1700 400 / 1700 Other: Weight 64.3 kg Imaging and Cardiology Echo: pending ECG results: image reviewed Assessment and Plan Assessment and Plan (1) Community acquired pneumonia: (2) Congestive heart failure: Onset Date: Unknown (3) Sepsis: (4) Supratherapeutic INR: (5) Hypoxia: (6) Atrial fibrillation: (7) Atrial flutter: (8) Aortic stenosis: Plan PLAN: -Reviewed telemetry strips with Dr. Costa. Rhythm does not appear to be VTach. Her e-lytes are WNL. Device check performed at bedside, no recent events of VT noted. Suspect rhythm to be a.fib or flutter with aberrancy. -Ordered for an ECHO to assess heart function, valve function, etc. -Continue management for a.fib with coumadin, amiodarone and diltiazem. -Her BNP was elevated and she has crackles on exam. Recommend to continue gentle diuresis given her CKD until she is euvolemic prior to discharge home. Discussed plan with Dr. Costa. Please call if any further questions or concerns. Thank you! Oksana Sarabia APRN-ORBITREAD OPERATOR
--- NOTE | 2023-01-17 17:40 | PC.NURSE ---
1700- patient's sahara was going off for low reading. RN went to check it. Sahara read 56. RN checked with glucometer, it read 92. Since every other time the sahara and glucometer have only been a couple points from each other RN asked physician for an order for a lab draw for an accurate reading. 1705 - Patient was given juice and dinner was ordered for patient.
[2023-01-17 18:00] LABS: Anion Gap 14.4; BUN Creatinine Ratio 20.2; Calcium 8.4 mg/dL (8.5-10.1); Carbon Dioxide 21.8 mmol/L (21.0-32.0); Chloride 105 mmol/L (98-107); Estimated GFR (African America 20 (>=60); Estimated GFR (Non-African Ame 17 (>=60); Glucose 100 mg/dL (74-106); Potassium 4.2 mmol/L (3.5-5.1); Sodium 137 mmol/L (136-145)
[2023-01-17] MEDS: ATORVASTATIN CALCIUM 40 MG TABLET PO (19:53)
[2023-01-17] MEDS: MONTELUKAST SODIUM 10 MG TABLET PO (19:53)
[2023-01-17 19:59] LABS: Glucometer 110 mg/dL (74-106)
--- NOTE | 2023-01-17 21:07 | PC.NURSE ---
Patient Zheng alarming. Checked blood sugar with a reading of 62. Dextrose Gel given
--- NOTE | 2023-01-17 22:04 | PC.NURSE ---
Blood glucose rechecked with Sasha, 131
[2023-01-17] MEDS: DEXTROSE 50 %-WATER 25 GM/50 ML SYRINGE IV (23:21)
[2023-01-17 23:22] LABS: Glucometer 88 mg/dL (74-106)
[2023-01-18] VITALS (23 sets, daily range): BP systolic 121–166; BP diastolic 51–63; PULSE 61–77; RESP 12–22; TEMP 36.7–37.1; O2SAT 87–94
[2023-01-18 00:16] LABS: Glucometer 150 mg/dL (74-106)
[2023-01-18] MEDS: DEXTROSE 50 %-WATER 25 GM/50 ML SYRINGE IV ×2 (01:32→04:10)
[2023-01-18] MEDS: ACETAMINOPHEN 325 MG TABLET 650 MG PO ×3 (01:43→17:42)
[2023-01-18 02:02] LABS: Glucometer 236 mg/dL (74-106)
--- NOTE | 2023-01-18 02:50 | ECG_ITS ---
[facility] Test Date: 2023-01-18 Pat Name: ASTON ZULUAGA Department: Room: [facility] [place] Gender: Female Evp: : 1935 Requested By: SHAIKH LAUREANO Order Number: [id number] Reading MD: GARRETT PERDOMO Measurements Intervals [place] Rate: 64 P: -69 IN: 203 QRS: 31 QRSD: 95 T: 84 QT: 432 QTc: 447 Interpretive Statements ELECTRONIC ATRIAL PACEMAKER ABNORMAL RHYTHM ECG Compared to ECG 01/15/2023 04:42:22 Myocardial infarct finding no longer present Electronically Signed On 01-18-2023 7:12:45 EDT by GARRETT PERDOMO
--- NOTE | 2023-01-18 02:50 | XR_ITS ---
The [address] [address] Patient Name: ASTON ZULUAGA MRN: [id number] date: 1935 Sex: F Assigned Patient Location: Current Patient Location: [place] Accession/Order Number: [id number] Exam Date: 01/18/2023 03:00 Report Date: 01/18/2023 03:40 At the request of: GOOD MERCADO Procedure: XR chest 1V EXAM: XR chest 1V HISTORY: dyspnea COMPARISON: Chest radiographs dated 01/17/2023. TECHNIQUE: One view of the chest was obtained. FINDINGS: A left chest cardiac pacemaker device is in place. Surgical clips are seen in the upper abdomen. The cardiac silhouette is stable in size. Aortic atherosclerotic disease is present. There is no significant pneumothorax or right pleural effusion. There is a small left pleural effusion. There are mixed interstitial and airspace opacities in the lungs. No acute osseous abnormality is seen. XR/XR chest 1V IMPRESSION: 1. Mixed interstitial and airspace opacities in both lungs are concerning for multifocal pneumonia. 2. Small left pleural effusion. Electronically authenticated by: Ban ESCOBEDO Date: 01/18/2023 03:40
[2023-01-18 03:04] LABS: Glucometer 147 mg/dL (74-106)
[2023-01-18 03:40] LABS: Troponin I High Sensitivity 15.1 pg/mL (4.0-51.3)
[2023-01-18] MEDS: IPRATROPIUM/ALBUTEROL SULFATE 3 ML AMPUL.NEB IH ×4 (04:01→20:05)
[2023-01-18] MEDS: LIOTHYRONINE SODIUM 5 MCG TABLET PO (04:18)
[2023-01-18] MEDS: FUROSEMIDE 40 MG/4 ML VIAL IVP (05:06)
[2023-01-18 05:23] LABS: Glucometer 156 mg/dL (74-106)
[2023-01-18 06:00] LABS: Basophils Percent Auto 0.1 % (0.2-2.0); Eosinophils Absolute Auto 0.1 10^3/uL (0.0-0.7); Eosinophils Percent Auto 0.5 % (0.9-7.0); Hematocrit 29.4 % (36.0-48.0); Hemoglobin 9.3 g/dL (12.0-16.0); Immature Granulocytes Pct Auto 1.4 % (0.0-0.5); Lymphocytes Absolute Auto 3.3 10^3/uL (1.2-3.8); Lymphocytes Percent Auto 22.4 % (20.5-60.0); Mean Corpuscular HGB Conc 31.6 g/dL (29.9-35.2); Mean Corpuscular Hemoglobin 31.8 pg (26.7-34.0); Mean Corpuscular Volume 100.7 fL (81.0-99.0); Mean Platelet Volume 12.1 fL (9.5-13.5); Monocytes Absolute Auto 1.1 10^3/uL (0.3-0.8); Monocytes Percent Auto 7.6 % (1.7-12.0); Platelet Count 188 10^3/uL (150-450); Red Blood Count 2.92 10^6/uL (4.20-5.40); Red Cell Distribution Width 14.7 % (11.0-15.0); White Blood Count 14.6 10^3/uL (4.0-11.0)
[2023-01-18 06:07] LABS: INR 1.15; Prothrombin Time 12.1 sec (9.0-11.6)
[2023-01-18 06:08] LABS: Anion Gap 11.7; BUN Creatinine Ratio 19.7; Calcium 8.3 mg/dL (8.5-10.1); Carbon Dioxide 22.4 mmol/L (21.0-32.0); Chloride 104 mmol/L (98-107); Estimated GFR (African America 22 (>=60); Estimated GFR (Non-African Ame 18 (>=60); Glucose 198 mg/dL (74-106); Potassium 4.1 mmol/L (3.5-5.1); Sodium 134 mmol/L (136-145)
--- NOTE | 2023-01-18 06:33 | P.PN_ITS ---
Progress Note: Subjective Subjective Interval history: More awake than yesterday. States her breathing is a little better than yesterday. Still on 1 to 2 L of supplemental oxygen. Exam Constitutional Vital Signs, click to edit/add: Last Vital Signs Temp 98.1 F 01/18/23 05:26 Pulse 65 01/18/23 06:00 Resp 18 01/18/23 05:26 BP 129/63 01/18/23 05:26 Pulse Ox 93 L 01/18/23 05:26 O2 Del Method Nasal Cannula 01/18/23 05:26 O2 Flow Rate 2 01/18/23 05:26 Documenting provider has reviewed patient's vital signs: yes Common normals: no apparent distress HENMT Common normals: moist oral mucous membranes Chest Common normals: inspection of chest normal Respiratory Common normals: no retractions and no use of accessory muscles; abnormal respiratory effort (Mild distress with mild conversational dyspnea) and not clear to ascultation bilaterally Auscultation: rhonchi and egophony (Right lower lobe) Cardio Common normals: regular rate and regular rhythm; murmurs detected Heart sounds: murmur Extremity Common normals: normal to inspection (No edema) Progress Note: Objective Labs Labs: Short CBC 01/18/23 Range/Units 04:54 WBC 14.6 H (4.0-11.0) 10^3/uL Hgb 9.3 L (12.0-16.0) g/dL Hct 29.4 L (36.0-48.0) % Plt Count 188 (150-450) 10^3/uL BMP 01/17/23 01/18/23 17:34 04:54 Sodium 137 134 L Potassium 4.2 4.1 Chloride 105 104 Carbon Dioxide 21.8 22.4 BUN 54.0 H 49.0 H Creatinine 2.67 H 2.49 H Glucose 100 198 H Calcium 8.4 L 8.3 L Progress Note: A&P Assessment and Plan (1) Community acquired pneumonia: (2) Congestive heart failure: Onset Date: Unknown (3) Sepsis: Assessment and Plan: Pa (4) Supratherapeutic INR: (5) Hypoxia: (6) Atrial fibrillation: (7) Atrial flutter: (8) Aortic stenosis: Plan Leukocytosis, positive lactate, respiratory distress, acute hypoxic respiratory failure requiring supplemental oxygen of 4 L due to right lower lobe pneumonia resulting in severe sepsis.. Oxygen has been up and down, currently on 2 L this morning. With failure to improve and chest x-ray from yesterday feeling somewhat worse. We will change antibiotics today. Held off on changing antibiotics yesterday because overall patient was improving with her white blood cell count. Possible ventricular tachycardia-received phone call message from nurse patient had 2-minute run of V. tach. Confirm not V. tach by cardiology Elevated BNP I think this is more related to chronic kidney disease as her lung exam is not consistent with heart failure-possible systolic heart failure, she has no peripheral edema. Continue with diuresis this morning. She got Lasix already from the overnight hospitalist, will add 1 dose of Aldactone Chronic kidney disease stage III-somewhat improved this morning Acute blood loss anemia with positive Hemoccult, secondary to acute upper gastrointestinal bleeding-on Protonix, complicated by Coumadin toxicity on admission. Coumadin down to restarting at 5 mg yesterday Iron deficiency anemia-monitor daily her hemoglobin is down somewhat so we will check stool for occult blood History of nonischemic cardiomyopathy-on amiodarone and Coumadin.-Check on echo, see above, see consult from cardiology Coumadin toxicity-level back down today but positive occult blood so we will continue to hold Coumadin for 1 additional day-down to normal, restart tonight. With bleeding appearing to have stopped NIDDM-add insulin sliding scale. Multiple episodes of hypoglycemia. Could still be residual effect of the glimepiride, even though the glimepiride was low-dose. She is currently off all oral hypoglycemics Generalized anxiety disorder-continue home medications-cut back on doxepin as patient is tired Hypothyroidism-continue with medications TSH is normal GERD-with the anemia and the elevated INR will place patient on IV Protonix for better gastric protection Patient was still prefer to try to go home. Will reassess for possible placement. This way have a plan in place for possible discharge versus rehab in the next couple days.
[2023-01-18 07:31] LABS: Glucometer 95 mg/dL (74-106)
[2023-01-18] MEDS: PANTOPRAZOLE SODIUM 40 MG VIAL IV (10:02)
[2023-01-18] MEDS: MEMANTINE HCL 28 MG CAP XR PO (10:03)
[2023-01-18] MEDS: CETIRIZINE HCL 10 MG TABLET PO (10:03)
[2023-01-18] MEDS: LACTOSE -REDUCED (ENSURE ORIGINAL 237 ML LIQUID) PO ×2 (10:03→20:16)
[2023-01-18] MEDS: POTASSIUM CHLORIDE 10 MEQ ER TABLET PO ×2 (10:03→20:16)
[2023-01-18] MEDS: FERROUS SULFATE 325 MG TABLET PO ×2 (10:04→20:16)
[2023-01-18] MEDS: ESCITALOPRAM 10 MG TABLET PO (10:04)
[2023-01-18] MEDS: AMIODARONE HCL 200 MG TABLET PO (10:05)
[2023-01-18] MEDS: SPIRONOLACTONE 25 MG TABLET PO (10:07)
[2023-01-18] MEDS: DILTIAZEM HCL 240 MG CAP.ER.24H PO (10:07)
[2023-01-18] MEDS: LEVOTHYROXINE SODIUM 25 MCG TABLET PO (10:07)
[2023-01-18] MEDS: BENZOCAINE/MENTHOL SORE THROAT LOZENGE 1 LOZENGE MM (10:09)
[2023-01-18 11:17] LABS: Glucometer 146 mg/dL (74-106)
--- NOTE | 2023-01-18 11:21 | RESP.RT ---
titrated down to Room Air
--- NOTE | 2023-01-18 11:27 | RESP.RT ---
Placed on room air
--- NOTE | 2023-01-18 14:10 | XR_ITS ---
The [address] [address] Patient Name: ASTON ZULUAGA MRN: [id number] date: 1935 Sex: F Assigned Patient Location: [place] Current Patient Location: [place] Accession/Order Number: [id number] Exam Date: 01/18/2023 14:05 Report Date: 01/18/2023 14:43 At the request of: COLETTE MÉNDEZ Procedure: XR chest 1V EXAM: XR chest 1V HISTORY: PICC placement COMPARISON: 01/18/2023 TECHNIQUE: AP portable FINDINGS: LUNGS: Minimal basilar infiltrates, improved VASCULATURE: No increased pulmonary vasculature. PLEURA: No pneumothorax, effusion, or pleural thickening. CARDIAC: No cardiomegaly or cardiac silhouette abnormality. MEDIASTINUM: No visible mass or adenopathy. Left pacemaker. Aortic atherosclerosis. BONES: No fracture or visible bone lesion. OTHER: Right PICC catheter tip projects over the distal superior vena cava. XR/XR chest 1V IMPRESSION: PICC catheter tip in the distal superior vena cava, normal position Electronically authenticated by: JUAN JOSÉ CHENG Date: 01/18/2023 14:43
[2023-01-18] MEDS: ORPHENADRINE CITRATE 100 MG TABLET.ER PO (14:50)
[2023-01-18] MEDS: LEVOFLOXACIN IN DEXTROSE 5 % 750 MG/150 ML IV.SOLN 100 MG IV (16:09)
[2023-01-18] MEDS: WARFARIN SODIUM 5 MG TABLET PO (16:16)
--- NOTE | 2023-01-18 16:18 | SWNOTE1 ---
SW spoke with pt in room in regards to the possibility of needing to go skilled since she is not approving and possibility getting weaker. Pt is not sure she wants to. She voiced she did walk with therapy today to the hallway. Pt does voice she is not feeling better though. SW did check to see if therapy note was in from today, but it was not. Pt would like to think about SNF and have SW check back tomorrow.
[2023-01-18 17:00] LABS: Glucometer 153 mg/dL (74-106)
[2023-01-18] MEDS: OLANZapine 5 MG TABLET 2.5 MG PO (20:15)
[2023-01-18] MEDS: MONTELUKAST SODIUM 10 MG TABLET PO (20:16)
[2023-01-18] MEDS: ATORVASTATIN CALCIUM 40 MG TABLET PO (21:58)
[2023-01-18] MEDS: INSULIN ASPART 300 UNIT/3 ML PEN SUBQ (21:59)
[2023-01-18] MEDS: DOXEPIN HCL 10 MG CAPSULE PO (22:02)
[2023-01-19] VITALS (20 sets, daily range): BP systolic 122–150; BP diastolic 53–61; PULSE 60–74; RESP 16–20; TEMP 36.6–37.1; O2SAT 90–97
[2023-01-19] MEDS: IPRATROPIUM/ALBUTEROL SULFATE 3 ML AMPUL.NEB IH ×4 (04:05→20:22)
[2023-01-19] MEDS: ACETAMINOPHEN 325 MG TABLET 650 MG PO ×2 (04:31→13:32)
[2023-01-19 05:04] LABS: Basophils Percent Auto 0.2 % (0.2-2.0); Eosinophils Absolute Auto 0.3 10^3/uL (0.0-0.7); Eosinophils Percent Auto 1.4 % (0.9-7.0); Hematocrit 32.5 % (36.0-48.0); Hemoglobin 10.2 g/dL (12.0-16.0); Immature Granulocytes Abs Auto 0.25 10^3/uL (0.00-0.03); Immature Granulocytes Pct Auto 1.4 % (0.0-0.5); Lymphocytes Percent Auto 27.4 % (20.5-60.0); Mean Corpuscular HGB Conc 31.4 g/dL (29.9-35.2); Mean Corpuscular Hemoglobin 31.4 pg (26.7-34.0); Mean Platelet Volume 11.8 fL (9.5-13.5); Monocytes Absolute Auto 1.4 10^3/uL (0.3-0.8); Monocytes Percent Auto 7.9 % (1.7-12.0); Neutrophils Absolute Auto 11.2 10^3/uL (1.4-6.5); Neutrophils Percent Auto 61.7 % (43.0-75.0); Platelet Count 199 10^3/uL (150-450); Red Blood Count 3.25 10^6/uL (4.20-5.40); Red Cell Distribution Width 14.7 % (11.0-15.0); White Blood Count 18.2 10^3/uL (4.0-11.0)
[2023-01-19 05:13] LABS: Anion Gap 12.2; BUN Creatinine Ratio 19.2; Calcium 8.8 mg/dL (8.5-10.1); Carbon Dioxide 24.7 mmol/L (21.0-32.0); Chloride 102 mmol/L (98-107); Estimated GFR (African America 23 (>=60); Estimated GFR (Non-African Ame 19 (>=60); Glucose 129 mg/dL (74-106); Potassium 4.9 mmol/L (3.5-5.1); Sodium 134 mmol/L (136-145)
[2023-01-19 05:15] LABS: INR 1.89; Prothrombin Time 19.3 sec (9.0-11.6)
[2023-01-19] MEDS: LIOTHYRONINE SODIUM 5 MCG TABLET PO (05:36)
--- NOTE | 2023-01-19 07:21 | P.PN_ITS ---
Progress Note: Subjective Subjective Interval history: Patient awake easily. Discussed with nursing staff, was up in chair yesterday, walked some to the bathroom. Still very weak. Shortness of breath persisting. Harsh cough persisting. Exam Constitutional Vital Signs, click to edit/add: Last Vital Signs Temp 98.7 F 01/19/23 04:14 Pulse 66 01/19/23 05:58 Resp 18 01/19/23 04:14 BP 142/53 H 01/19/23 04:14 Pulse Ox 90 L 01/19/23 04:14 O2 Del Method Nasal Cannula 01/19/23 04:14 O2 Flow Rate 1.5 01/19/23 04:14 Documenting provider has reviewed patient's vital signs: yes Common normals: no apparent distress HENMT Common normals: moist oral mucous membranes Chest Common normals: inspection of chest normal Respiratory Common normals: no retractions and no use of accessory muscles; abnormal respiratory effort (Mild distress with mild conversational dyspnea) and not clear to ascultation bilaterally Auscultation: rhonchi and egophony (Right lower lobe) Cardio Common normals: regular rate and regular rhythm; murmurs detected Heart sounds: murmur Extremity Common normals: normal to inspection (No edema) Progress Note: Objective Labs Labs: Short CBC 01/19/23 Range/Units 04:30 WBC 18.2 H (4.0-11.0) 10^3/uL Hgb 10.2 L (12.0-16.0) g/dL Hct 32.5 L (36.0-48.0) % Plt Count 199 (150-450) 10^3/uL BMP 01/19/23 04:30 Sodium 134 L Potassium 4.9 Chloride 102 Carbon Dioxide 24.7 BUN 46.0 H Creatinine 2.39 H Glucose 129 H Calcium 8.8 Progress Note: A&P Assessment and Plan (1) Community acquired pneumonia: (2) Congestive heart failure: Onset Date: Unknown (3) Sepsis: Assessment and Plan: Pa (4) Supratherapeutic INR: (5) Hypoxia: (6) Atrial fibrillation: (7) Atrial flutter: (8) Aortic stenosis: Plan Admission findings of leukocytosis, positive lactate, respiratory distress, acute hypoxic respiratory failure requiring supplemental oxygen of 4 L due to right lower lobe pneumonia resulting in severe sepsis.. Oxygen weaned down to 1 to 1-1/2 L. Still significantly harsh cough. White blood cell count up today. Antibiotics were changed yesterday due to failure to improve multifocal pneumonia. Continue with bunny Houser. Repeat labs in a.m. Possible ventricular tachycardia-received phone call message from nurse patient had 2-minute run of V. tach. Confirm not V. tach by cardiology Acute systolic heart failure-she did not have this on admission. Rales in lungs, but no peripheral edema, but the symptoms have progressed, echocardiogram shows elevated right-sided pressures. Continue to work on diuresis. Bumex drip today. Cut back on her calcium channel marlon, add beta-marlon and Imdur. Attempting better afterload reduction and improving pulmonary hypertension Chronic kidney disease stage III-somewhat improved this morning-likely to be worse diuresis tomorrow Acute blood loss anemia with positive Hemoccult, secondary to acute upper gastrointestinal bleeding-on Protonix, complicated by Coumadin toxicity on admission. Stable Iron deficiency anemia-monitor daily her hemoglobin is down somewhat-positive occult blood, stable History of nonischemic cardiomyopathy-on amiodarone and Coumadin. Echo with elevated right-sided pressures, see above Coumadin toxicity-level back down today-restarted Coumadin, INR up to 1.8 with 5 mg, will cut down to 4 mg, likely higher tomorrow NIDDM-add insulin sliding scale. Multiple episodes of hypoglycemia. Off oral hypoglycemics, will maintain insulin sliding scale but increase the level required for insulin administration Generalized anxiety disorder-continue home medications-cut back on doxepin to just as at bedtime, continue Zyprexa Hypothyroidism-continue with medications TSH is normal GERD-with the anemia and the elevated INR will place patient on IV Protonix for better gastric protection Patient agreeable that if at the time of discharge that she is medically stable she but needs rehab she would be willing to go to rehab
[2023-01-19] MEDS: LEVOTHYROXINE SODIUM 25 MCG TABLET PO (08:10)
[2023-01-19] MEDS: METOPROLOL TARTRATE 25 MG TABLET 12.5 MG PO ×2 (08:55→21:19)
[2023-01-19] MEDS: POTASSIUM CHLORIDE 10 MEQ ER TABLET PO ×2 (08:55→21:19)
[2023-01-19] MEDS: ISOSORBIDE MONONITRATE 30 MG TAB.ER.24H PO (08:55)
[2023-01-19] MEDS: AMIODARONE HCL 200 MG TABLET PO (08:57)
[2023-01-19] MEDS: FERROUS SULFATE 325 MG TABLET PO ×2 (08:57→21:17)
[2023-01-19] MEDS: MEMANTINE HCL 28 MG CAP XR PO (08:58)
[2023-01-19] MEDS: CETIRIZINE HCL 10 MG TABLET PO (08:59)
[2023-01-19] MEDS: DILTIAZEM HCL 120 MG CAP.ER.24H PO (08:59)
[2023-01-19] MEDS: ESCITALOPRAM 10 MG TABLET PO (08:59)
[2023-01-19] MEDS: LACTOSE -REDUCED (ENSURE ORIGINAL 237 ML LIQUID) PO (09:00)
[2023-01-19] MEDS: PANTOPRAZOLE SODIUM 40 MG VIAL IV (09:00)
[2023-01-19] MEDS: CEFTAZIDIME 1,000 MG in 0.9 % SODIUM CHLORIDE 50 ML 100 MG IV (09:00)
[2023-01-19] MEDS: BUMETANIDE 10 MG in 0.9 % SODIUM CHLORIDE 160 ML 20 MG IV (10:15)
[2023-01-19] MEDS: BENZOCAINE/MENTHOL SORE THROAT LOZENGE 1 LOZENGE MM ×2 (11:01→17:53)
[2023-01-19 11:48] LABS: Glucometer 229 mg/dL (74-106)
--- NOTE | 2023-01-19 12:07 | PT.DAILY ---
Physical Therapy Daily Note PT Daily Note/Assess Start: 01/17/23 11:09 Freq: Status: Active Protocol: Document 01/19/23 12:05 HEATHJOSEMADELYN (Rec: 01/19/23 12:07 TRACI [id number]) Physical Therapy Daily Note/Assessment Time In/Time Out Time In 11:20 Time Out 11:30 Pain In Pain N/A Pain Out Pain N/A Subjective Subjective Pt supine upon arrival. agrees to PT. Reports main complaint is just feeling exhausted and coughing spells. Therapeutic Exercise Time Therapeutic Exercise Minutes (minutes) 4 Therapeutic Exercise Units 0 Therapeutic Exercise Treatment Therapeutic Exercise Treatment Seated bilat LE strengthening ex complete 10x ea in BS chair . Therapeutic Activity Time Therapeutic Activity Minutes (minutes) 6 Therapeutic Activity Units 1 Therapeutic Activity Treatment Bed Mobility Ability Standby Assistance Chair Transfer Ability Standby Assistance Therapeutic Activity Comments Pt performs supine>sit transfer SBA with increased time needed. Sit>stand to RW SBA with increased time. Pt amb in room 60' with RW, SBA with assist for IV pole. Pt then sits in BS chair upon completion and performs seated ex as noted. Remains in BS chair with call light in reach and needs met. Total Physical Therapy Time Total Therapy Minutes 10 Total Physical Therapy Units 1 Summary Daily Note Summary Cont to be very easily fatigued with activity. Coughing spell with amb. Willing and cooperative with therapy.
--- NOTE | 2023-01-19 14:51 | SWNOTE1 ---
UYEN spoke with pt and daughter in room. Pt is not feeling any better. SW mentioned to them having a back up plan in case she continues to not improve. UYEN asked pt again about rehab. Daughter voiced she thinks it is a good idea and that she is her POA. SW let her know that pt is able to make her own decisions as she is alert and oriented. UYEN explained to daughter and pt that OT saw pt one time and she did well and they have signed off, SW to have them re-order. UYEN also explained to daughter and pt that she has been getting up and ambulating 60 feet with physical therapy for the last few days. SW let her know HH was the recommendation. SW explained it is possible her insurance may deny her. Pt voiced understanding and so did daughter. SW let her know if she is thinking she may be agreeable to go to SNF for a short time, SW would need to start process today, as she is a precert. Pt is alright with SW sending information and getting things started, but if she gets better she would go home with [facility]. Pt and daughter agreed they would like the [facility]. SW sent information to [facility].
--- NOTE | 2023-01-19 16:10 | SWNOTE1 ---
SW left packet for HH or for pt to go skilled at [facility]. Depending on if pt is approved to go to [facility] or denied will determine where she is discharged to. Possible pt will improve as well and decide home with [facility] [address].
--- NOTE | 2023-01-19 16:12 | SWNOTE1 ---
SW did send OT note over to [facility].
--- NOTE | 2023-01-19 16:29 | SWNOTE1 ---
[facility] starting precert
--- NOTE | 2023-01-19 16:40 | XR_ITS ---
The [address] [address] Patient Name: ASTON ZULUAGA MRN: [id number] date: 1935 Sex: F Assigned Patient Location: [place] Current Patient Location: [place] Accession/Order Number: [id number] Exam Date: 01/19/2023 16:25 Report Date: 01/19/2023 16:49 At the request of: COLETTE MÉNDEZ Procedure: XR chest 2V EXAM: XR chest 2V HISTORY: multifocal pneumonia, chf . Follow-up study. COMPARISON: 01/17/2023 TECHNIQUE: Upright PA and lateral chest x-ray FINDINGS: Patchy interstitial infiltrates are again seen in the right upper lung and in the both lower lungs, accompanied by a small right pleural effusion. The left lung base has improved slightly while the right lung base has worsened slightly. There is no evidence of a pneumothorax. The heart is near the upper limits of normal in size with some prominence of the central pulmonary vasculature. The pacemaker remains in place on the left. There is been interval insertion of a right-sided PICC line with the tip in the superior vena cava. The osseous structures are grossly intact. XR/XR chest 2V IMPRESSION: Multiple infiltrates are again noted, with slight improvement at the left lung base and slight worsening at the right lung base. A small effusion on the right is also noted. There is no evidence of a complicating process after placement of the right-sided PICC line. The overall appearance of the chest is otherwise unchanged. Electronically authenticated by: ROBERT ERWIN Date: 01/19/2023 16:49
--- NOTE | 2023-01-19 16:52 | RESP.RT ---
tried on room air but Spo2 dropped to 85%. placed back on 1L
[2023-01-19] MEDS: MONTELUKAST SODIUM 10 MG TABLET PO (21:17)
[2023-01-19] MEDS: OLANZapine 5 MG TABLET 2.5 MG PO (21:17)
[2023-01-19] MEDS: ATORVASTATIN CALCIUM 40 MG TABLET PO (23:33)
[2023-01-20] VITALS (21 sets, daily range): BP systolic 100–117; BP diastolic 47–56; PULSE 60–68; RESP 16–22; TEMP 36.9–37; O2SAT 91–98
[2023-01-20] MEDS: IPRATROPIUM/ALBUTEROL SULFATE 3 ML AMPUL.NEB IH ×4 (04:01→20:00)
[2023-01-20 05:19] LABS: Basophils Absolute Auto 0.1 10^3/uL (0.0-0.1); Basophils Percent Auto 0.4 % (0.2-2.0); Eosinophils Absolute Auto 0.5 10^3/uL (0.0-0.7); Hematocrit 30.8 % (36.0-48.0); Hemoglobin 9.4 g/dL (12.0-16.0); Lymphocytes Absolute Auto 3.9 10^3/uL (1.2-3.8); Lymphocytes Percent Auto 29.2 % (20.5-60.0); Mean Corpuscular HGB Conc 30.5 g/dL (29.9-35.2); Mean Corpuscular Hemoglobin 31.2 pg (26.7-34.0); Mean Corpuscular Volume 102.3 fL (81.0-99.0); Mean Platelet Volume 11.9 fL (9.5-13.5); Monocytes Percent Auto 7.6 % (1.7-12.0); Neutrophils Absolute Auto 7.4 10^3/uL (1.4-6.5); Neutrophils Percent Auto 55.8 % (43.0-75.0); Platelet Count 220 10^3/uL (150-450); Red Blood Count 3.01 10^6/uL (4.20-5.40); Red Cell Distribution Width 14.7 % (11.0-15.0); White Blood Count 13.3 10^3/uL (4.0-11.0)
[2023-01-20 05:27] LABS: INR 2.38
[2023-01-20 05:33] LABS: Anion Gap 13.1; BUN Creatinine Ratio 17.2; Calcium 8.4 mg/dL (8.5-10.1); Carbon Dioxide 23.8 mmol/L (21.0-32.0); Chloride 103 mmol/L (98-107); Estimated GFR (African America 20 (>=60); Estimated GFR (Non-African Ame 16 (>=60); Glucose 159 mg/dL (74-106); Potassium 4.9 mmol/L (3.5-5.1); Sodium 135 mmol/L (136-145)
[2023-01-20] MEDS: LIOTHYRONINE SODIUM 5 MCG TABLET PO (06:44)
--- NOTE | 2023-01-20 08:14 | P.PN_ITS ---
Progress Note: Subjective Subjective Interval history: Patient awake this morning. It is later in the morning. Patient feels much better than the previous day. Still dyspnea with activity. Slow to move. Exam Constitutional Vital Signs, click to edit/add: Last Vital Signs Temp 98.4 F 01/20/23 06:00 Pulse 64 01/20/23 08:00 Resp 22 01/20/23 06:00 BP 117/55 01/20/23 06:00 Pulse Ox 91 L 01/20/23 06:00 O2 Del Method Nasal Cannula 01/20/23 06:00 O2 Flow Rate 1.5 01/20/23 06:00 Documenting provider has reviewed patient's vital signs: yes Common normals: no apparent distress HENMT Common normals: moist oral mucous membranes Chest Common normals: inspection of chest normal Respiratory Common normals: no retractions and no use of accessory muscles; abnormal respiratory effort (Mild distress with mild conversational dyspnea) and not clear to ascultation bilaterally Auscultation: rhonchi (Overall sounds improved with better air exchange) and egophony (Right lower lobe) right lower Cardio Common normals: regular rate and regular rhythm; murmurs detected Heart sounds: murmur Extremity Common normals: normal to inspection (No edema) Progress Note: Objective Labs Labs: Short CBC 01/20/23 Range/Units 04:08 WBC 13.3 H (4.0-11.0) 10^3/uL Hgb 9.4 L (12.0-16.0) g/dL Hct 30.8 L (36.0-48.0) % Plt Count 220 (150-450) 10^3/uL BMP 01/20/23 04:08 Sodium 135 L Potassium 4.9 Chloride 103 Carbon Dioxide 23.8 BUN 47.0 H Creatinine 2.73 H Glucose 159 H Calcium 8.4 L Progress Note: A&P Assessment and Plan (1) Community acquired pneumonia: (2) Congestive heart failure: Onset Date: Unknown (3) Sepsis: (4) Supratherapeutic INR: (5) Hypoxia: (6) Atrial fibrillation: (7) Atrial flutter: (8) Aortic stenosis: Plan Admission findings of leukocytosis, positive lactate, respiratory distress, acute hypoxic respiratory failure requiring supplemental oxygen of 4 L due to r ight lower lobe pneumonia resulting in severe sepsis and acute exacerbation of asthma.. Oxygen weaned down to 1 to 1-1/2 L. Still significantly harsh cough. White blood cell count up today. Antibiotics were changed yesterday due to failure to improve multifocal pneumonia. Continue with bunny Houser. Repeat labs in a.m. Possible ventricular tachycardia-received phone call message from nurse patient had 2-minute run of V. tach. Confirm not V. tach by cardiology Acute systolic heart failure-she did not have this on admission. Rhonchi are persisting but rales improved, good diuresis the last 2 days. We will change to oral diuretics today. Lasix and Aldactone, will need to watch potassium closely. BNP is much improved and this is probably her baseline-continue with nitrates, beta-marlon, calcium channel marlon, blood pressure stable Chronic kidney disease stage III-somewhat deteriorated today as expected. This is probably closer to her baseline. Acute blood loss anemia with positive Hemoccult, secondary to acute upper gastrointestinal bleeding-on Protonix, complicated by Coumadin toxicity on admission. Hemoglobin down today, somewhat concerning based on diuresis as well. Monitor closely. Iron deficiency anemia-monitor daily her hemoglobin is down somewhat-positive occult blood, down somewhat today, see above History of nonischemic cardiomyopathy-on amiodarone and Coumadin. Echo with elevated right-sided pressures, see above Coumadin toxicity-level back down today-restarted Coumadin, INR up to 1.8 with 5 mg, will cut down to 4 mg, likely higher tomorrow NIDDM-add insulin sliding scale. Multiple episodes of hypoglycemia. Off oral hypoglycemics, will maintain insulin sliding scale but increase the level required for insulin administration Generalized anxiety disorder-continue home medications-cut back on doxepin to just as at bedtime, continue Zyprexa Hypothyroidism-continue with medications TSH is normal Hypertension by history-stable on current medical regime Dementia-stable on current regime GERD-with the anemia and the elevated INR will place patient on IV Protonix for better gastric protection Patient overall is improved with white blood cell count improving, BNP improving, still hypoxic resulting in need for supplemental oxygen. May need this at discharge at this point. Today is her first day her white blood cell count is posterior to her baseline she will continue with antibiotic changes as made 2 days ago
[2023-01-20] MEDS: CEFTAZIDIME 1,000 MG in 0.9 % SODIUM CHLORIDE 50 ML 100 MG IV (09:18)
[2023-01-20] MEDS: 0.9 % SODIUM CHLORIDE 250 ML IV.SOLN 10 ML IV (09:18)
[2023-01-20] MEDS: POTASSIUM CHLORIDE 10 MEQ ER TABLET PO ×2 (09:19→21:39)
[2023-01-20] MEDS: MEMANTINE HCL 28 MG CAP XR PO (09:19)
[2023-01-20] MEDS: ISOSORBIDE MONONITRATE 30 MG TAB.ER.24H PO (09:19)
[2023-01-20] MEDS: METOPROLOL TARTRATE 25 MG TABLET 12.5 MG PO ×2 (09:19→21:39)
[2023-01-20] MEDS: CETIRIZINE HCL 10 MG TABLET PO (09:19)
[2023-01-20] MEDS: AMIODARONE HCL 200 MG TABLET PO (09:19)
[2023-01-20] MEDS: DILTIAZEM HCL 120 MG CAP.ER.24H PO (09:19)
[2023-01-20] MEDS: FERROUS SULFATE 325 MG TABLET PO ×2 (09:20→21:39)
[2023-01-20] MEDS: ESCITALOPRAM 10 MG TABLET PO (09:20)
[2023-01-20] MEDS: SPIRONOLACTONE 25 MG TABLET PO (09:20)
[2023-01-20] MEDS: LACTOSE -REDUCED (ENSURE ORIGINAL 237 ML LIQUID) PO (09:20)
[2023-01-20] MEDS: FUROSEMIDE 20 MG TABLET PO (09:20)
[2023-01-20] MEDS: PANTOPRAZOLE SODIUM 40 MG VIAL IV (09:20)
[2023-01-20] MEDS: LEVOTHYROXINE SODIUM 25 MCG TABLET PO (09:20)
--- NOTE | 2023-01-20 10:43 | PT.DAILY ---
Physical Therapy Daily Note PT Daily Note/Assess Start: 01/17/23 11:09 Freq: Status: Active Protocol: Document 01/20/23 10:40 TRACI (Rec: 01/20/23 10:43 TRACI [id number]) Physical Therapy Daily Note/Assessment Time In/Time Out Time In 08:15 Time Out 08:35 Pain In Pain N/A Pain Out Pain N/A Subjective Subjective Pt supine upon arrival. agrees to PT. Cont to be extremely fatigued and coughing with activity. Therapeutic Exercise Time Therapeutic Exercise Minutes (minutes) 3 Therapeutic Exercise Units 0 Therapeutic Exercise Treatment Therapeutic Exercise Treatment Seated bilat LE strengthening ex complete while sitting unsupported at EOB 10x ea. Therapeutic Activity Time Therapeutic Activity Minutes (minutes) 13 Therapeutic Activity Units 1 Therapeutic Activity Treatment Bed Mobility Ability Standby Assistance Chair Transfer Ability Standby Assistance Therapeutic Activity Comments Pt performs supine>sit transfer SBA with increased time. Sits EOB 3 min unsupported to complete seated LE ex. Sit>stand to RW SBA. Pt amb 50' in room then to sink in restroom. Static standing at sink to wash face and brush teeth. No LOB. Pt amb 35' over to BS chair with RW SBA. Remains in BS chair upon completion with call light in reach and family present. Total Physical Therapy Time Total Therapy Minutes 16 Total Physical Therapy Units 1 Summary Daily Note Summary Easily fatigued with activity. Steady with both static and dynamic standing.
--- NOTE | 2023-01-20 11:09 | RESP.RT ---
decreased to 1 LPM
[2023-01-20] MEDS: LEVOFLOXACIN IN DEXTROSE 5 % 500 MG/100 ML PIGGYBACK 100 MG IV (16:07)
[2023-01-20] MEDS: WARFARIN SODIUM 3 MG TABLET PO (16:15)
[2023-01-20] MEDS: MONTELUKAST SODIUM 10 MG TABLET PO (21:39)
[2023-01-20] MEDS: OLANZapine 5 MG TABLET 2.5 MG PO (21:39)
[2023-01-20] MEDS: DOXEPIN HCL 10 MG CAPSULE PO (21:39)
[2023-01-20] MEDS: ATORVASTATIN CALCIUM 40 MG TABLET PO (21:39)
[2023-01-21] VITALS (21 sets, daily range): BP systolic 104–113; BP diastolic 48–55; PULSE 60–71; RESP 16–20; TEMP 36.7; O2SAT 92–94
[2023-01-21] MEDS: ACETAMINOPHEN 325 MG TABLET 650 MG PO ×2 (04:07→13:33)
[2023-01-21] MEDS: IPRATROPIUM/ALBUTEROL SULFATE 3 ML AMPUL.NEB IH ×4 (04:43→20:11)
[2023-01-21 05:28] LABS: Basophils Percent Auto 0.4 % (0.2-2.0); Eosinophils Absolute Auto 0.5 10^3/uL (0.0-0.7); Eosinophils Percent Auto 4.7 % (0.9-7.0); Hematocrit 29.6 % (36.0-48.0); Hemoglobin 8.9 g/dL (12.0-16.0); Immature Granulocytes Abs Auto 0.43 10^3/uL (0.00-0.03); Immature Granulocytes Pct Auto 4.3 % (0.0-0.5); Lymphocytes Absolute Auto 2.9 10^3/uL (1.2-3.8); Lymphocytes Percent Auto 28.9 % (20.5-60.0); Mean Corpuscular HGB Conc 30.1 g/dL (29.9-35.2); Mean Corpuscular Volume 103.1 fL (81.0-99.0); Mean Platelet Volume 11.3 fL (9.5-13.5); Monocytes Absolute Auto 0.8 10^3/uL (0.3-0.8); Monocytes Percent Auto 7.6 % (1.7-12.0); Neutrophils Absolute Auto 5.4 10^3/uL (1.4-6.5); Neutrophils Percent Auto 54.1 % (43.0-75.0); Platelet Count 237 10^3/uL (150-450); Red Blood Count 2.87 10^6/uL (4.20-5.40); Red Cell Distribution Width 14.6 % (11.0-15.0)
[2023-01-21 05:35] LABS: Anion Gap 9.6; BUN Creatinine Ratio 17.7; Calcium 8.5 mg/dL (8.5-10.1); Carbon Dioxide 25.3 mmol/L (21.0-32.0); Chloride 103 mmol/L (98-107); Estimated GFR (African America 21 (>=60); Estimated GFR (Non-African Ame 17 (>=60); Glucose 171 mg/dL (74-106); Potassium 4.9 mmol/L (3.5-5.1); Sodium 133 mmol/L (136-145)
[2023-01-21 05:51] LABS: INR 2.65; Prothrombin Time 26.6 sec (9.0-11.6)
[2023-01-21] MEDS: LEVOTHYROXINE SODIUM 25 MCG TABLET PO (06:08)
[2023-01-21] MEDS: LIOTHYRONINE SODIUM 5 MCG TABLET PO (06:08)
[2023-01-21] MEDS: CEFTAZIDIME 1,000 MG in 0.9 % SODIUM CHLORIDE 50 ML 100 MG IV (08:40)
[2023-01-21] MEDS: METFORMIN HCL 500 MG TAB.ER.24H PO (08:40)
[2023-01-21] MEDS: PANTOPRAZOLE SODIUM 40 MG VIAL IV (08:40)
[2023-01-21] MEDS: SPIRONOLACTONE 25 MG TABLET PO (08:41)
[2023-01-21] MEDS: ISOSORBIDE MONONITRATE 30 MG TAB.ER.24H PO (08:41)
[2023-01-21] MEDS: CETIRIZINE HCL 10 MG TABLET PO (08:41)
[2023-01-21] MEDS: FUROSEMIDE 20 MG TABLET PO (08:41)
[2023-01-21] MEDS: MEMANTINE HCL 28 MG CAP XR PO (08:41)
[2023-01-21] MEDS: FERROUS SULFATE 325 MG TABLET PO ×2 (08:41→21:07)
[2023-01-21] MEDS: POTASSIUM CHLORIDE 10 MEQ ER TABLET PO ×2 (08:41→21:07)
[2023-01-21] MEDS: AMIODARONE HCL 200 MG TABLET PO (08:41)
[2023-01-21] MEDS: DILTIAZEM HCL 120 MG CAP.ER.24H PO (08:41)
[2023-01-21] MEDS: ESCITALOPRAM 10 MG TABLET PO (08:41)
[2023-01-21] MEDS: METOPROLOL TARTRATE 25 MG TABLET 12.5 MG PO ×2 (08:42→21:07)
--- NOTE | 2023-01-21 09:18 | P.PN_ITS ---
Progress Note: Subjective Subjective Interval history: Up in chair this morning. Eating breakfast. Still with significant dyspnea with activity and very weak. Exam Constitutional Vital Signs, click to edit/add: Last Vital Signs Temp 98.0 F 01/21/23 06:00 Pulse 66 01/21/23 08:41 Resp 18 01/21/23 06:00 BP 110/54 01/21/23 08:41 Pulse Ox 92 L 01/21/23 06:00 O2 Del Method Nasal Cannula 01/21/23 06:00 O2 Flow Rate 1 01/21/23 06:00 Documenting provider has reviewed patient's vital signs: yes Common normals: no apparent distress HENMT Common normals: moist oral mucous membranes Chest Common normals: inspection of chest normal Respiratory Common normals: no retractions and no use of accessory muscles; abnormal respiratory effort (Mild distress with mild conversational dyspnea) and not clear to ascultation bilaterally Auscultation: rhonchi (Overall sounds improved with better air exchange) and egophony (Right lower lobe) right lower Cardio Common normals: regular rate and regular rhythm; murmurs detected Heart sounds: murmur Extremity Common normals: normal to inspection (No edema) Progress Note: Objective Labs Labs: Short CBC 01/21/23 Range/Units 04:47 WBC 10.0 (4.0-11.0) 10^3/uL Hgb 8.9 L (12.0-16.0) g/dL Hct 29.6 L (36.0-48.0) % Plt Count 237 (150-450) 10^3/uL BMP 01/21/23 04:47 Sodium 133 L Potassium 4.9 Chloride 103 Carbon Dioxide 25.3 BUN 46.0 H Creatinine 2.60 H Glucose 171 H Calcium 8.5 Progress Note: A&P Assessment and Plan (1) Community acquired pneumonia: (2) Congestive heart failure: Onset Date: Unknown (3) Sepsis: (4) Supratherapeutic INR: (5) Hypoxia: (6) Atrial fibrillation: (7) Atrial flutter: (8) Aortic stenosis: Plan Admission findings of leukocytosis, positive lactate, respiratory distress, acute hypoxic respiratory failure requiring supplemental oxygen of 4 L due to right lower lobe pneumonia resulting in severe sepsis and acute exacerbation of asthma.. Oxygen weaned down to 1 to 1-1/2 L. Still significantly harsh cough. White blood cell count continues to improve, down to normal today. Possible ventricular tachycardia-received phone call message from nurse patient had 2-minute run of V. tach. Confirm not V. tach by cardiology Acute systolic heart failure-she did not have this on admission.-Appears stable on current oral medications. Chronic kidney disease stage III-improved today as expected from stopping IV diuretics Acute blood loss anemia with positive Hemoccult, secondary to acute upper gastrointestinal bleeding-on Protonix, complicated by Coumadin toxicity on admission. Hemoglobin is down somewhat today., Continue to monitor, continue with IV Protonix Iron deficiency anemia-monitor daily her hemoglobin is down somewhat-positive occult blood, see above History of nonischemic cardiomyopathy-on amiodarone and Coumadin. INR is creeping up, will change dose from 3 mg to 2.5 mg Coumadin toxicity-level back down today-restarted Coumadin, see above NIDDM-add insulin sliding scale. Hypoglycemic episodes have resolved, will add back metformin if sugars elevated in the 170s this morning. But just once a day. Generalized anxiety disorder-continue home medications-appears stable on current dosing Hypothyroidism-continue with medications TSH is normal Hypertension by history-improved from earlier. Systolics in the 120s would be preferred based on her history of heart failure Dementia-stable on current regime GERD-with the anemia and the elevated INR-stable on IV Protonix Patient overall slowly improving from a number standpoint but still significant weak and cough. Likely unable to be weaned off of supplemental oxygen despite the fact that she came in not on supplemental oxygen as as an outpatient. She is on 1 L currently. Continue to try to wean. Likely needs placement for patient's safety.
[2023-01-21] MEDS: lidocaine HCL 15 ML, MAG HYDROX/ALUMINUM HYD/SIMETH 30 ML, diphenhydrAMINE HCL 75 MG PO (11:21)
[2023-01-21] MEDS: WARFARIN SODIUM 2.5 MG TABLET PO (16:53)
[2023-01-21] MEDS: OLANZapine 5 MG TABLET 2.5 MG PO (21:06)
[2023-01-21] MEDS: MONTELUKAST SODIUM 10 MG TABLET PO (21:07)
[2023-01-21] MEDS: ATORVASTATIN CALCIUM 40 MG TABLET PO (22:22)
[2023-01-21] MEDS: DOXEPIN HCL 10 MG CAPSULE PO (22:22)
[2023-01-22] VITALS (9 sets, daily range): BP systolic 116–134; BP diastolic 48–56; PULSE 60–71; RESP 16–18; TEMP 36.6–36.9; O2SAT 91–92
[2023-01-22 03:16] LABS: Basophils Absolute Auto 0.1 10^3/uL (0.0-0.1); Basophils Percent Auto 0.5 % (0.2-2.0); Eosinophils Absolute Auto 0.4 10^3/uL (0.0-0.7); Eosinophils Percent Auto 4.1 % (0.9-7.0); Hematocrit 27.6 % (36.0-48.0); Hemoglobin 8.6 g/dL (12.0-16.0); Immature Granulocytes Abs Auto 0.37 10^3/uL (0.00-0.03); Lymphocytes Absolute Auto 3.1 10^3/uL (1.2-3.8); Lymphocytes Percent Auto 33.7 % (20.5-60.0); Mean Corpuscular HGB Conc 31.2 g/dL (29.9-35.2); Mean Corpuscular Hemoglobin 32.2 pg (26.7-34.0); Mean Corpuscular Volume 103.4 fL (81.0-99.0); Mean Platelet Volume 10.8 fL (9.5-13.5); Monocytes Absolute Auto 0.8 10^3/uL (0.3-0.8); Monocytes Percent Auto 8.3 % (1.7-12.0); Neutrophils Absolute Auto 4.6 10^3/uL (1.4-6.5); Neutrophils Percent Auto 49.4 % (43.0-75.0); Platelet Count 241 10^3/uL (150-450); Red Blood Count 2.67 10^6/uL (4.20-5.40); Red Cell Distribution Width 14.4 % (11.0-15.0); White Blood Count 9.2 10^3/uL (4.0-11.0)
[2023-01-22 03:39] LABS: Anion Gap 9.8; Calcium 8.2 mg/dL (8.5-10.1); Carbon Dioxide 25.7 mmol/L (21.0-32.0); Chloride 104 mmol/L (98-107); Estimated GFR (African America 22 (>=60); Estimated GFR (Non-African Ame 18 (>=60); Glucose 90 mg/dL (74-106); Potassium 5.5 mmol/L (3.5-5.1); Sodium 134 mmol/L (136-145)
[2023-01-22 03:59] LABS: INR 2.91
[2023-01-22] MEDS: LEVOTHYROXINE SODIUM 25 MCG TABLET PO (04:10)
[2023-01-22] MEDS: LIOTHYRONINE SODIUM 5 MCG TABLET PO (04:10)
[2023-01-22] MEDS: IPRATROPIUM/ALBUTEROL SULFATE 3 ML AMPUL.NEB IH (05:01)
--- NOTE | 2023-01-22 07:30 | P.DS_ITS ---
DS: Providers Provider Date of admission: 01/14/23 23:33 Primary care physician: Chase Nolan MD Consults: 01/16/23 07:28 Occupational Therapy Eval and Treat Routine Reason for consultation: if needed for placment Has provider been notified: No Physical Therapy Eval and Treat Routine Reason for consultation: placement eval Has provider been notified: No 01/16/23 07:49 Consult to Family Medicine Resident Routine Has provider been notified: No Reason for consult:: Retirement 01/17/23 07:03 Consult to Cardiology Routine Reason for consultation: v tach Has provider been notified: No 01/18/23 07:08 Consult to Family Medicine Resident Routine Reason for consult:: Retirement Other reason:: find a bed, if better on day of d/c may still go home 01/18/23 07:09 Physical Therapy Eval and Treat Routine Reason for consultation: re-eval for nh placement Has provider been notified: No 01/18/23 10:53 Consult to PICC Line RN Routine Consulting Provider: Chase Nolan Reason for consultation: lost iv access - picc or midline Has provider been notified: No 01/19/23 07:18 Consult to Family Medicine Resident Routine Has provider been notified: No Reason for consult:: Retirement Other reason:: Pt agreeable to rehab if necc at d/c - can we get a plan? 01/19/23 14:33 Occupational Therapy Eval and Treat Routine Reason for consultation: re-eval placement Has provider been notified: No 01/22/23 07:16 Consult to Family Medicine Resident Routine Reason for consult:: Retirement Other reason:: Pt is ready for d/c - home or rehab? Physical Therapy Eval and Treat Routine Reason for consultation: if neeeded for placement today - pt ready for d/c - home or rehab Has provider been notified: No DS: Diagnosis Discharge Diagnosis (1) Community acquired pneumonia: (2) Congestive heart failure: Onset Date: Unknown (3) Sepsis: (4) Supratherapeutic INR: (5) Hypoxia: (6) Atrial fibrillation: (7) Atrial flutter: (8) Aortic stenosis: Plan Admission findings of leukocytosis, positive lactate, respiratory distress, acute hypoxic respiratory failure requiring supplemental oxygen of 4 L due to right lower lobe pneumonia resulting in severe sepsis and acute exacerbation of asthma Acute systolic heart failure-she did not have this on admission Chronic kidney disease stage III Acute blood loss anemia with positive Hemoccult, secondary to acute upper gastrointestinal bleeding Iron deficiency anemia History of nonischemic cardiomyopathy Coumadin toxicity NIDDM-add insulin sliding scale. Hypoglycemic episodes Generalized anxiety disorder- Hypothyroidism Hypertension Dementia- GERD DS: Summary Hospital Course Hospital Course: Admission findings of leukocytosis, positive lactate, respiratory distress, acute hypoxic respiratory failure requiring supplemental oxygen of 4 L due to right lower lobe pneumonia resulting in severe sepsis and acute exacerbation of asthma . Patient placed on antibiotics Zosyn and Zithromax. No significant improvement over the first 3 days. Antibiotics were changed to Fortaz and levofloxacin. Her white blood cell count has been improving since that time. She is still on 1 L of her supplemental oxygen. She will likely be required to use that at home. We will attempt to wean again today. Other complicating factors acute blood loss anemia secondary to acute upper gastrointestinal blood loss anemia. Placed on IV Protonix and that has been stabilized although somewhat lower over the last couple of days. This was complicated by her Coumadin toxicity. Also throughout the hospital stay developed acute systolic heart failure. Medications were adjusted consult to cardiology. Medications were further adjusted after that. Her blood pressures been stable on the curre nt regime. Kidney function is overall improving. Repeating chest x-ray today. PT to work with patient today. Possible discharge to home versus rehab today. If she is discharged home I will follow her up in the office later this week if she is discharged to rehab I will follow her rehab. Medications see list. Time Spent with Patient Time attestation: Total time spent providing and/or coordinating discharge services: Exam Constitutional Vital Signs, click to edit/add: Last Vital Signs Temp 98.4 F 01/22/23 03:17 Pulse 60 01/22/23 05:59 Resp 16 01/22/23 05:01 BP 134/56 01/22/23 03:17 Pulse Ox 91 L 01/22/23 05:01 O2 Del Method Nasal Cannula 01/22/23 05:01 O2 Flow Rate 1 01/22/23 05:01 Documenting provider has reviewed patient's vital signs: yes Common normals: no apparent distress HENMT Common normals: moist oral mucous membranes Chest Common normals: inspection of chest normal Respiratory Common normals: no retractions and no use of accessory muscles; abnormal respiratory effort (Mild distress with mild conversational dyspnea) and not clear to ascultation bilaterally Auscultation: rhonchi (Overall sounds improved from prev day) and egophony (Right lower lobe) right lower Cardio Common normals: regular rate and regular rhythm; murmurs detected Heart sounds: murmur Extremity Common normals: normal to inspection (No edema) DS: Data Data Completed and Pending Labs on day of discharge: Labs from last 24 hours 01/22/23 03:06 WBC 9.2 RBC 2.67 L Hgb 8.6 L Hct 27.6 L MCV 103.4 H MCH 32.2 MCHC 31.2 RDW 14.4 Plt Count 241 MPV 10.8 Neut % (Auto) 49.4 Lymph % (Auto) 33.7 Ray % (Auto) 8.3 Eos % (Auto) 4.1 Baso % (Auto) 0.5 Neut # (Auto) 4.6 Lymph # (Auto) 3.1 Ray # (Auto) 0.8 Eos # (Auto) 0.4 Baso # (Auto) 0.1 Abs Immat Gran (auto) 0.37 H Imm/Tot Granulo (auto) 4.0 H PT 29.0 H INR 2.91 Sodium 134 L Potassium 5.5 H Chloride 104 Carbon Dioxide 25.7 Anion Gap 9.8 BUN 46.0 H Creatinine 2.55 H Est GFR ( Amer) 22 L Est GFR (Non-Af Amer) 18 L BUN/Creatinine Ratio 18.0 Glucose 90 Calcium 8.2 L NT-Pro-B Natriuret Pep 1754.0 Discharge Plan Discharge Disposition: Xfer SNF Discharge Medications: New isosorbide mononitrate 30 mg Tablet Extended Release 24 Hr 30 mg PO QD Qty: 30 11RF doxepin 10 mg Capsule 10 mg PO QHS Qty: 30 11RF spironolactone 25 mg Tablet 25 mg PO DAILY Qty: 30 11RF diltiazem HCl 120 mg Capsule,Extended Release 24hr 120 mg PO Q24H Qty: 30 11RF metformin 500 mg Tablet Extended Release 24 Hr 500 mg PO DAILY@0800 Qty: 30 11RF metoprolol tartrate 25 mg Tablet 12.5 mg PO BID Qty: 30 11RF levofloxacin 750 mg tablet 750 mg PO DAILY 7 Days Qty: 7 0RF Continued alendronate 70 mg tablet 70 mg PO QWEEK Rx Instructions: ONCE A WEEK DOSING, PLEASE VERIFY WHICH DAY SHE TAKES THIS MEDICATION. LAST FILLED 11/26/22 FOR 84 DAYS SUPPLY PER FILL HX amiodarone 200 mg tablet 200 mg PO Q24H atorvastatin 40 mg tablet 40 mg PO Q24H cetirizine 10 mg tablet 10 mg PO Q24H escitalopram oxalate 10 mg tablet 10 mg PO Q24H ferrous sulfate 325 mg (65 mg iron) tablet 325 mg PO Q12H acetaminophen [Tylenol 8 Hour] 650 mg tablet extended release 650 mg PO Q8H PRN (Reason: pain) Qty: 20 0RF furosemide 20 mg tablet 20 mg PO Q24H levothyroxine 25 mcg tablet 25 mcg PO Q24H liothyronine 5 mcg tablet 5 mcg PO Q24H memantine 28 mg capsule,sprinkle,ER 24hr 28 mg PO Q24H montelukast 10 mg tablet 10 mg PO Q24H olanzapine 2.5 mg tablet 2.5 mg PO .QHS Rx Instructions: AT BEDTIME, PER REFILL HISTORY. LAST FILLED 11/06/22 FOR 90 DAYS pantoprazole 40 mg tablet,delayed release (DR/EC) 40 mg PO Q12H warfarin 2 mg tablet 2 mg PO .- Rx Instructions: DIRECTED - 5 DAYS A WEEK PER REFILL HISTORY. LAST FILLED 11/28/22 FOR 90 DAYS SUPPLY Discontinued diltiazem HCl 240 mg capsule,extended release 24hr 240 mg PO Q24H doxepin 10 mg capsule 10 mg PO Q12H Jardiance 10 mg tablet 10 mg PO Q24H orphenadrine citrate 100 mg tablet extended release 100 mg PO DAILY PRN (Reason: muscle spasm) Qty: 5 0RF metformin 500 mg tablet 500 mg PO Q12H potassium chloride [Klor-Con M10] 10 mEq tablet,ER particles/crystals 10 meq PO Q12H Forms: Portal Instructions
[2023-01-22] MEDS: FUROSEMIDE 20 MG TABLET PO (09:24)
[2023-01-22] MEDS: CETIRIZINE HCL 10 MG TABLET PO (09:24)
[2023-01-22] MEDS: ISOSORBIDE MONONITRATE 30 MG TAB.ER.24H PO (09:24)
[2023-01-22] MEDS: METFORMIN HCL 500 MG TAB.ER.24H PO (09:24)
[2023-01-22] MEDS: ACETAMINOPHEN 325 MG TABLET 650 MG PO (09:25)
[2023-01-22] MEDS: SPIRONOLACTONE 25 MG TABLET PO (09:26)
[2023-01-22] MEDS: ESCITALOPRAM 10 MG TABLET PO (09:26)
[2023-01-22] MEDS: MEMANTINE HCL 28 MG CAP XR PO (09:26)
[2023-01-22] MEDS: METOPROLOL TARTRATE 25 MG TABLET 12.5 MG PO (09:26)
[2023-01-22] MEDS: DILTIAZEM HCL 120 MG CAP.ER.24H PO (09:26)
[2023-01-22] MEDS: FERROUS SULFATE 325 MG TABLET PO (09:26)
[2023-01-22] MEDS: AMIODARONE HCL 200 MG TABLET PO (09:26)
[2023-01-22] MEDS: CEFTAZIDIME 1,000 MG in 0.9 % SODIUM CHLORIDE 50 ML 100 MG IV (09:28)
[2023-01-22] MEDS: PANTOPRAZOLE SODIUM 40 MG VIAL IV (09:28)
[2023-01-22] MEDS: lidocaine HCL 15 ML, MAG HYDROX/ALUMINUM HYD/SIMETH 30 ML, diphenhydrAMINE HCL 75 MG PO (09:29)
--- NOTE | 2023-01-22 09:50 | CM.NOTE ---
Received call from Дмитрий at [facility], pt has been approved. Pt does have discharge summary in from Dr. Nolan. RN notified of pt's approval. Pt will transfer to [facility] today for skilled therapy.
--- NOTE | 2023-01-22 09:59 | CM.NOTE ---
Dr. Nolan notified that pt has been approved by insurance for skilled therapy. Pt will discharge to [facility] today.
--- NOTE | 2023-01-22 10:37 | CM.NOTE ---
Med-Surg nursing secretary set up transport for pt, skilled referral and discharge summary faxed to [facility].
--- NOTE | 2023-01-22 13:11 | CM.NOTE ---
Online HEN's completed.
--- NOTE | 2023-01-23 09:46 | CM.NOTE ---
Called [facility] to update that pt did go to [place] for Skilled therapy.
== END 2023-01-22 10:45 | DRG 871 ==
LOC: ER 20:57 → MS 23:41
PROVIDERS: Internal Medicine; Admitting Provider Family Medicine; Emergency Provider Internal Medicine; PCP Family Medicine; Visit Provider Family Medicine
DX: A41.9 Sepsis, unspecified organism (principal); I50.23 Acute on chronic systolic (congestive) heart failure; J18.9 Pneumonia, unspecified organism; J96.01 Acute respiratory failure with hypoxia; I13.0 Hypertensive heart and chronic kidney disease with heart failure and stage 1 through stage 4 chronic kidney disease, or unspecified chronic kidney disease; J45.901 Unspecified asthma with (acute) exacerbation; I42.9 Cardiomyopathy, unspecified; K92.2 Gastrointestinal hemorrhage, unspecified; D62 Acute posthemorrhagic anemia; R65.20 Severe sepsis without septic shock; E11.22 Type 2 diabetes mellitus with diabetic chronic kidney disease; E11.65 Type 2 diabetes mellitus with hyperglycemia; N18.30 Chronic kidney disease, stage 3 unspecified; T45.515A Adverse effect of 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, initial encounter; B34.1 Enterovirus infection, unspecified; B34.8 Other viral infections of unspecified site; D50.9 Iron deficiency anemia, unspecified; F41.1 Generalized anxiety disorder; F03.90 Unspecified dementia, unspecified severity, without behavioral disturbance, psychotic disturbance, mood disturbance, and anxiety; E03.9 Hypothyroidism, unspecified; K21.9 Gastro-esophageal reflux disease without esophagitis; Z20.822 Contact with and (suspected) exposure to COVID-19; Z79.01 Long term (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; Z79.890 Hormone replacement therapy; Z79.84 Long term (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 oral hypoglycemic drugs; Z79.899 Other long term (current) drug therapy; Z88.0 Allergy status to penicillin; Z88.2 Allergy status to sulfonamides; Z95.0 Presence of cardiac pacemaker; Z87.891 Personal history of nicotine dependence
CPT/HCPCS: 0202U; 36415; 36569; 36592; 51702; 51798; 71045; 71046; 80048; 80061; 82948; 83605; 83735; 83880; 84436; 84443; 84481; 84484; 85025; 85027; 85378; 85610; 87040; 87070; 87205; 93005; 93306; 94640; 94667; 94668; 94761; 96365; 96366; 96367; 96368; 96375; 96376; 97110; 97161; 97162; 97164; 97165; 97530; 99285; C1887; G0328; J0456; J2930; Q3014

== ENCOUNTER 2023-01-17 00:46 | Outpatient (RCR) | payer MEDICARE, SELFPAY | END 2023-02-15 16:37 | disposition home or self-care (01) | LOC: MM 00:46 | PROVIDERS: PCP Family Medicine; Visit Provider Internal Medicine | DX: Z51.81 Encounter for therapeutic drug level monitoring (principal); Z79.01 Long term (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; I48.91 Unspecified atrial fibrillation ==

== ENCOUNTER 2023-02-16 09:21 | Outpatient (RCR) | payer MEDICARE, SELFPAY | END 2023-03-16 15:05 | disposition home or self-care (01) | LOC: MM 09:21 | PROVIDERS: PCP Family Medicine; Visit Provider Internal Medicine | DX: Z51.81 Encounter for therapeutic drug level monitoring (principal); Z79.01 Long term (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; I48.91 Unspecified atrial fibrillation ==

== ENCOUNTER 2023-03-19 01:06 | Outpatient (RCR) | payer MEDICARE, SELFPAY | END 2023-04-18 17:17 | disposition home or self-care (01) | LOC: MM 01:06 | PROVIDERS: PCP Family Medicine; Visit Provider Internal Medicine | DX: Z51.81 Encounter for therapeutic drug level monitoring (principal); Z79.01 Long term (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; I48.91 Unspecified atrial fibrillation ==

== ENCOUNTER 2023-04-19 01:56 | Outpatient (RCR) | payer MEDICARE, SELFPAY | END 2023-05-17 17:16 | disposition home or self-care (01) | LOC: MM 01:56 | PROVIDERS: PCP Family Medicine; Visit Provider Internal Medicine | DX: Z51.81 Encounter for therapeutic drug level monitoring (principal); Z79.01 Long term (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; I48.91 Unspecified atrial fibrillation ==

== ENCOUNTER 2023-05-18 03:26 | Outpatient (RCR) | payer MEDICARE, SELFPAY | END 2023-06-15 14:06 | disposition home or self-care (01) | LOC: MM 03:26 | PROVIDERS: PCP Family Medicine; Visit Provider Internal Medicine | DX: Z51.81 Encounter for therapeutic drug level monitoring (principal); Z79.01 Long term (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; I48.91 Unspecified atrial fibrillation ==

== ENCOUNTER 2023-06-18 00:21 | Outpatient (RCR) | payer MEDICARE, SELFPAY | END 2023-07-17 17:59 | disposition home or self-care (01) | LOC: MM 00:21 | PROVIDERS: PCP Family Medicine; Visit Provider Internal Medicine | DX: Z51.81 Encounter for therapeutic drug level monitoring (principal); Z79.01 Long term (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; I48.91 Unspecified atrial fibrillation ==

== ENCOUNTER 2023-07-18 00:21 | Outpatient (RCR) | payer MEDICARE, SELFPAY | END 2023-08-17 11:18 | disposition home or self-care (01) | LOC: MM 00:21 | PROVIDERS: PCP Family Medicine; Visit Provider Internal Medicine | DX: Z51.81 Encounter for therapeutic drug level monitoring (principal); Z79.01 Long term (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; I48.91 Unspecified atrial fibrillation ==

== ENCOUNTER 2023-08-20 00:23 | Outpatient (RCR) | payer MEDICARE, SELFPAY | END 2023-09-14 10:46 | disposition home or self-care (01) | LOC: MM 00:23 | PROVIDERS: PCP Family Medicine; Visit Provider Internal Medicine | DX: Z51.81 Encounter for therapeutic drug level monitoring (principal); Z79.01 Long term (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; I48.91 Unspecified atrial fibrillation ==

== ENCOUNTER 2023-08-26 14:47 | Inpatient (IN) | payer MEDICARE, SELFPAY ==
[2023-08-26] VITALS (7 sets, daily range): BP systolic 135–156; BP diastolic 47–87; PULSE 60–80; TEMP 36.6–37; O2SAT 92–100; BMI 22.8; BMI 22.9
--- NOTE | 2023-08-26 14:56 | ED.EXTPRO1 ---
HPI - Extremity Problem General Chief complaint: Extremity Problem, Nontraumatic Stated complaint: LOWER EXTREMITY PAIN Time Seen by Provider: 08/26/23 14:53 Source: patient Mode of arrival: ambulance Limitations: no limitations History of Present Illness HPI Narrative: Patient is an 87-year-old female with a history of A-fib, coronary artery disease, diabetes who presents to the emergency department by ambulance from the intermediate where she is a resident for uncontrolled pain to the lefgt foot. EMS reports that the patient is a good historian, however the patient cannot remember which facility may have debrided her foot 1 month ago, she does not remember if she has diabetes and she is noted to be on multiple medications for dementia on her medication list. She reports pain to the foot, She is prescribed oxycodone 2.5 mg as needed. On arrival, patient complains of pain radiating from the knee into the foot. There has been no drainage. She has noted to have a soft, compressible and warm lower extremity with necrosis noted to the dorsum and heel aspect of the right foot. Related Data Home Medications ?Medication ?Instructions ?Recorded ?Confirmed alendronate 70 mg tablet 70 mg PO QWEEK 01/07/23 08/26/23 amiodarone 200 mg tablet 200 mg PO Q24H 01/07/23 08/26/23 atorvastatin 40 mg tablet 40 mg PO Q24H 01/07/23 08/26/23 escitalopram oxalate 10 mg tablet 10 mg PO Q24H 01/07/23 08/26/23 ferrous sulfate 325 mg (65 mg 325 mg PO Q12H 01/07/23 08/26/23 iron) tablet furosemide 20 mg tablet 20 mg PO Q24H 01/07/23 08/26/23 levothyroxine 25 mcg tablet 25 mcg PO Q24H 01/07/23 08/26/23 liothyronine 5 mcg tablet 5 mcg PO Q24H 01/07/23 08/26/23 memantine 28 mg capsule 28 mg PO Q24H 01/07/23 08/26/23 sprinkle,extended release 24hr montelukast 10 mg tablet 10 mg PO Q24H 01/07/23 08/26/23 olanzapine 2.5 mg tablet 2.5 mg PO .QHS 01/07/23 08/26/23 pantoprazole 40 mg tablet,delayed 40 mg PO Q12H 01/07/23 08/26/23 release doxycycline monohydrate 100 mg 100 mg PO Q12H 08/26/23 08/26/23 capsule heparin (porcine) 5,000 unit/mL 5,000 unit subcut Q8H 08/26/23 08/26/23 injection solution oxycodone 5 mg tablet 2.5 mg PO Q4H 08/26/23 08/26/23 Previous Rx's ?Medication ?Instructions ?Recorded acetaminophen 650 mg 650 mg PO Q8H PRN pain #20 tabs 01/07/23 tablet,extended release (Tylenol 8 Hour) metoprolol tartrate 25 mg tablet 12.5 mg (1/2 x 25 mg) PO BID #30 01/22/23 tabs Allergies Allergy/AdvReac Type Severity Reaction Status Date / Time penicillin G Allergy Intermediate Verified 01/14/23 20:15 Sulfa (Sulfonamide Allergy Intermediate Verified 01/14/23 20:15 Antibiotics) Review of Systems ROS Constitutional Denies: fever or chills Ears, nose, mouth, and throat Denies: throat pain or nasal congestion Respiratory Denies: shortness of breath Gastrointestinal Denies: nausea or vomiting Musculoskeletal Denies: back pain or neck pain Integumentary/Breast Denies: rash Neurological Denies: headache Hematologic/Lymphatic Denies: easy bruising or easy bleeding [facility] Medical History (Updated 08/26/23 @ 18:31 by REMINGTON Townsend) Aortic stenosis ?I35.0 - Nonrheumatic aortic (valve) stenosis (ICD-10) Atrial flutter ?I48.92 - Unspecified atrial flutter (ICD-10) Atrial fibrillation ?I48.91 - Unspecified atrial fibrillation (ICD-10) Hypoxia ?R09.02 - Hypoxemia (ICD-10) Supratherapeutic INR ?R79.1 - Abnormal coagulation profile (ICD-10) Sepsis ?A41.9 - Sepsis, unspecified organism (ICD-10) CKD (chronic kidney disease) ?N18.9 - Chronic kidney disease, unspecified (ICD-10) Community acquired pneumonia ?J18.9 - Pneumonia, unspecified organism (ICD-10) Congestive heart failure (Unknown) ?I50.9 - Heart failure, unspecified (ICD-10) Acute viral syndrome ?B34.9 - Viral infection, unspecified (ICD-10) Social History Smoking status: Never smoker Exam Narrative Exam Narrative: Gen.: Awake, alert, in no distress Head: Normocephalic, atraumatic ENT: Moist mucous membranes Respiratory: No respiratory distress Extremities: Right lower extremity with 2+ right DP pulse. Necrotic area to the dorsum of the foot with black eschar, Similar area to the right heel. No fluctuance, drainage or red streaking noted. Psych: Normal mood and affect Neuro: No focal neuro deficit Skin: Warm, dry, intact Constitutional Vital Signs, click to edit/add: Last Vital Signs Temp 98.3 F 08/26/23 14:53 Pulse 60 08/26/23 16:25 Resp 18 08/26/23 16:25 BP 135/47 L 08/26/23 16:25 Pulse Ox 98 08/26/23 16:25 O2 Del Method Room Air 08/26/23 14:53 Course Vital Signs Vital signs: Vital Signs Temperature 98.3 F 08/26/23 14:53 Pulse Rate 63 08/26/23 14:53 Respiratory Rate 18 08/26/23 14:53 Blood Pressure 156/56 H 08/26/23 14:53 Pulse Oximetry 100 08/26/23 14:53 Oxygen Delivery Method Room Air 08/26/23 14:53 Temperature 98.3 F 08/26/23 14:53 Pulse Rate 60 08/26/23 16:25 Respiratory Rate 18 08/26/23 16:25 Blood Pressure 135/47 L 08/26/23 16:25 Pulse Oximetry 98 08/26/23 16:25 Oxygen Delivery Method Room Air 08/26/23 14:53 MDM - Extremity (Nontraumatic) MDM Narrative Medical decision making narrative: Patient medicated with fentanyl, IV fluids and Zofran. She is resting comfortably in the ER. Lab studies show stable, chronic anemia with chronic kidney disease. Patient with mild leukocytosis. Sepsis labs were ordered for her. X-rays are unremarkable. An arterial ultrasound was ordered for the patient with no obvious large vessel occlusions. I discussed the case with Dr. Tejada for podiatry, he will see the patient tomorrow as a consult. Patient will be covered with clindamycin and doxycycline for. Patient admitted to Dr. Nolan for pain control and podiatry consult. Stable at this time. Medical Records Attestation: I reviewed the patient's medical records. Lab Data Attestation: I reviewed the patient's lab results. Labs: Lab Results 08/26/23 Range/Units 15:21 WBC 13.8 H (4.0-11.0) 10^3/uL RBC 3.53 L (4.20-5.40) 10^6/uL Hgb 10.5 L (12.0-16.0) g/dL Hct 35.9 L (36.0-48.0) % MCV 101.7 H (81.0-99.0) fL MCH 29.7 (26.7-34.0) pg MCHC 29.2 L (29.9-35.2) g/dL RDW 17.6 H (11.0-15.0) % Plt Count 334 (150-450) 10^3/uL MPV 10.9 (9.5-13.5) fL Neut % (Auto) 51.9 (43.0-75.0) % Lymph % (Auto) 29.0 (20.5-60.0) % [place] % (Auto) 8.4 (1.7-12.0) % Eos % (Auto) 8.3 H (0.9-7.0) % Baso % (Auto) 0.7 (0.2-2.0) % Neut # (Auto) 7.1 H (1.4-6.5) 10^3/uL Lymph # (Auto) 4.0 H (1.2-3.8) 10^3/uL [place] # (Auto) 1.2 H (0.3-0.8) 10^3/uL Eos # (Auto) 1.1 H (0.0-0.7) 10^3/uL Baso # (Auto) 0.1 (0.0-0.1) 10^3/uL Abs Immat Gran (auto) 0.23 H (0.00-0.03) 10^3/uL Imm/Tot Granulo (auto) 1.7 H (0.0-0.5) % PT 11.2 (9.0-11.6) sec INR 1.06 VBG pH 7.443 H (7.330-7.430) VBG pCO2 24.5 L (40.0-52.0) mmHg Sodium 138 (136-145) mmol/L Potassium 5.4 H (3.5-5.1) mmol/L Chloride 106 (98-107) mmol/L Carbon Dioxide 23.4 (21.0-32.0) mmol/L Anion Gap 14.0 BUN 57.0 H (7.0-18.0) mg/dL Creatinine 2.33 H (0.55-1.02) mg/dL Est GFR ( Amer) 24 L (>=60) Est GFR (Non-Af Amer) 20 L (>=60) BUN/Creatinine Ratio 24.5 Glucose 126 H (74-106) mg/dL Lactate 1.1 (0.4-2.0) mmol/L Calcium 9.0 (8.5-10.1) mg/dL Total Bilirubin 0.3 (0.2-1.0) mg/dL AST 22 (15-37) U/L ALT 20 (14-59) U/L Alkaline Phosphatase 120 H (46-116) U/L Total Protein 7.4 (6.4-8.2) g/dL Albumin 2.7 L (3.4-5.0) g/dL Globulin 4.7 g/dL Albumin/Globulin Ratio 0.6 Procalcitonin <0.05 (0.00-0.50) ng/mL Imaging Data XR foot: Attestation: I have reviewed the pertinent imaging results. Radiologist's impression: ITS Impressions Foot X-Ray 08/26/23 14:57 IMPRESSION: No acute fracture or traumatic malalignment. Electronically authenticated by: ALISSA COLEMAN Date: 08/26/2023 15:52 Discharge Plan Discharge Stand Alone Forms: Portal Instructions Chief Complaint: Extremity Problem, Nontraumatic Patient Disposition: Admitted as Observation Time of Disposition Decision: 18:31 Prescriptions / Home Meds: No Action alendronate 70 mg tablet 70 mg PO QWEEK Rx Instructions: ONCE A WEEK DOSING, PLEASE VERIFY WHICH DAY SHE TAKES THIS MEDICATION. LAST FILLED 11/26/22 FOR 84 DAYS SUPPLY PER FILL HX amiodarone 200 mg tablet 200 mg PO Q24H atorvastatin 40 mg tablet 40 mg PO Q24H cetirizine 10 mg tablet 10 mg PO Q24H escitalopram oxalate 10 mg tablet 10 mg PO Q24H ferrous sulfate 325 mg (65 mg iron) tablet 325 mg PO Q12H acetaminophen [Tylenol 8 Hour] 650 mg tablet extended release 650 mg PO Q8H PRN (Reason: pain) Qty: 20 0RF furosemide 20 mg tablet 20 mg PO Q24H levothyroxine 25 mcg tablet 25 mcg PO Q24H liothyronine 5 mcg tablet 5 mcg PO Q24H memantine 28 mg capsule,sprinkle,ER 24hr 28 mg PO Q24H montelukast 10 mg tablet 10 mg PO Q24H olanzapine 2.5 mg tablet 2.5 mg PO .QHS Rx Instructions: AT BEDTIME, PER REFILL HISTORY. LAST FILLED 11/06/22 FOR 90 DAYS pantoprazole 40 mg tablet,delayed release (DR/EC) 40 mg PO Q12H warfarin 2 mg tablet 2 mg PO .- Rx Instructions: DIRECTED - 5 DAYS A WEEK PER REFILL HISTORY. LAST FILLED 11/28/22 FOR 90 DAYS SUPPLY isosorbide mononitrate 30 mg Tablet Extended Release 24 Hr 30 mg PO QD Qty: 30 11RF doxepin 10 mg Capsule 10 mg PO QHS Qty: 30 11RF spironolactone 25 mg Tablet 25 mg PO DAILY Qty: 30 11RF diltiazem HCl 120 mg Capsule,Extended Release 24hr 120 mg PO Q24H Qty: 30 11RF metformin 500 mg Tablet Extended Release 24 Hr 500 mg PO DAILY@0800 Qty: 30 11RF metoprolol tartrate 25 mg Tablet 12.5 mg PO BID Qty: 30 11RF levofloxacin 750 mg tablet 750 mg PO DAILY 7 Days Qty: 7 0RF Print Language: Wolof Referrals: Chase Nolan MD [Primary Care Provider] - 1 week
--- NOTE | 2023-08-26 14:57 | XR_ITS ---
The [address] [address] Patient Name: ASTON ZULUAGA MRN: [id number] date: 1935 Sex: F Assigned Patient Location: ER Current Patient Location: ED.MAIN Accession/Order Number: [id number] Exam Date: 08/26/2023 15:15 Report Date: 08/26/2023 15:52 At the request of: CHRISTINE GRIER Procedure: XR foot LT min 3V EXAMINATION: XR foot LT min 3V, , 08/26/2023 3:15 PM EDT INDICATION: foot pain HISTORY: Ordering Provider Reason for Exam: foot pain Technologist Note: Additional: COMPARISON: None. TECHNIQUE: Left foot x-ray: 3 view(s). FINDINGS: No acute fracture. Joint alignment is anatomic. Joint spaces are preserved. Soft tissues are within normal limits. XR/XR foot LT min 3V IMPRESSION: No acute fracture or traumatic malalignment. Electronically authenticated by: ALISSA COLEMAN Date: 08/26/2023 15:52
--- OUTSIDE RECORDS SUMMARY | 2023-08-26 14:58 | XMS_ITS | CCD ---
Author Organization [facility] Care Team Providers Care Greens Cutter Name Role Phone PROVIDER, UNKNOWN Admitting Unavailable PROVIDER, UNKNOWN Attending Unavailable CHRISTINE ALEXANDRE Referring Unavailable PROVIDER, UNKNOWN Admitting Unavailable PROVIDER, UNKNOWN Attending Unavailable CHRISTINE ALEXANDRE Referring Unavailable PROVIDER, UNKNOWN Admitting Unavailable PROVIDER, UNKNOWN Attending Unavailable CHRISTINE ALEXANDRE Referring Unavailable ROB MORALES Attending Unavailable ROB MORALES Admitting Unavailable COLETTE MÉNDEZ Referring Unavailable COLETTE MÉNDEZ Primary Care Unavailable BERNICE DELEON Admitting Unavailable BERNICE DELEON Attending Unavailable DEV ., DR ALVARENGA Primary Care Unavailable BERNICE DELEON Consulting Unavailable FAWWAD, AYOUB H Admitting Unavailable FAWWAD, AYOUB H Attending Unavailable HOY ., DR ALVARENGA Primary Care Unavailable HOY ., DR ALVARENGA Primary Care Unavailable HOY ., DR ALVARENGA Consulting Unavailable HOY ., DR ALVARENGA Admbrent Unavailable HOY ., DR ALVARENGA Attending Unavailable ZISUZANER, DR HANNA Jimenez Consulting Unavailable LATIA BAUMANN Consulting Unavailable CARLOS ESCOBEDO Consulting Unavailable MIRANDA MENEZES Consulting Unavailable MICHAELY ., DR ALVARENGA Admitting Unavailable HOY ., DR ALVARENGA Attending Unavailable HOY ., DR ALVARENGA Primary Care Unavailable HOY ., DR ALVARENGA Consulting Unavailable HOY ., DR ALVARENGA Primary Care Unavailable HOY ., DR ALVARENGA Admitting Unavailable HOY ., DR ALVARENGA Attending Unavailable FAWWAD, AYOUB H Attending Unavailable FAWWAD, AYOUB H Admitting Unavailable HOY .DR ALVARENGA Primary Care Unavailable FAWWAD, AYOUB H Attending Unavailable FAWWAD, AYOUB H Admitting Unavailable HOY ., DR ALVARENGA Primary Care Unavailable HOY ., DR ALVARENGA Attending Unavailable HOY ., DR ALVARENGA Referring Unavailable HOY ., DR ALVARENGA Consulting Unavailable HOY ., DR ALVARENGA Primary Care Unavailable HOY ., DR ALVARENGA Admitting Unavailable ANDREW, ROB Admitting Unavailable ANDREW, ROB Attending Unavailable ANDREW, ROB Consulting Unavailable HOY ., DR ALVARENGA Primary Care Unavailable HOY ., DR ALVARENGA Attending Unavailable HOY ., DR ALVARENGA Consulting Unavailable HOY ., DR ALVARENGA Primary Care Unavailable HOY ., DR ALVARENGA Admitting Unavailable FAWWAD, AYOUB H Attending Unavailable FAWWAD, AYOUB H Admitting Unavailable HOY ., DR ALVARENGA Primary Care Unavailable FAWWAD, AYOUB H Admitting Unavailable FAWWAD, AYOUB H Attending Unavailable HOY ., DR ALVARENGA Primary Care Unavailable FAWWAD, AYOUB H Attending Unavailable FAWWAD, AYOUB H Admitting Unavailable HOY ., DR ALVARENGA Primary Care Unavailable FAWWAD, AYOUB H Attending Unavailable FAWWAD, AYOUB H Admitting Unavailable HOY ., DR ALVARENGA Primary Care Unavailable FAWWAD, AYOUB H Attending Unavailable FAWWAD, AYOUB H Admitting Unavailable HOY ., DR ALVARENGA Primary Care Unavailable HOY ., DR ALVARENGA Primary Care Unavailable HOY ., DR ALVARENGA Admitting Unavailable HOY ., DR ALVARENGA Consulting Unavailable HOY ., DR ALVARENGA Attending Unavailable HOY ., DR ALVARENGA Primary Care Unavailable HOY ., DR ALVARENGA Consulting Unavailable HOY ., DR ALAVRENGA Admbrent Unavailable HOY ., DR ALVARENGA Attending Unavailable HOY ., DR ALVARENGA Attending Unavailable HOY ., DR ALVARENGA Consulting Unavailable HOY ., DR ALVARENGA Primary Care Unavailable HOY ., DR ALVARENGA Admitting Unavailable HOY ., DR ALVARENGA Attending Unavailable HOY ., DR ALVARENGA Primary Care Unavailable HOY ., DR ALVARENGA Consulting Unavailable HOY ., DR ALVARENGA Admitting Unavailable HOY ., DR ALVARENGA Attending Unavailable HOY ., DR ALVARENGA Consulting Unavailable HOY ., DR ALVARENGA Primary Care Unavailable HOY ., DR ALVARENGA Admbrent Unavailable WEST, DR JUAN JOSÉ Mobley Consulting Unavailable HAY ., DR MERCADO Consulting Unavailable RAMIRO RODRIGUEZ Admitting Unavailable RAMIRO RODRIGUEZ Attending Unavailable HOY ., DR ALVARENGA Primary Care Unavailable HOY ., DR ALVARENGA Consulting Unavailable HOY ., DR ALVARENGA Primary Care Unavailable HOY ., DR ALVARENGA Admitting Unavailable HOY ., DR ALVARENGA Attending Unavailable JUAN F ENCARNACION Consulting Unavailable SHAIKH TINSLEY H Admitting Unavailable HOY ., DR ALVARENGA Primary Care Unavailable SHAIKH TINSLEY H Attending Unavailable AURELIO HUANG Admitting Unavailable ELIJAH Husain, AURELIO Attending Unavailable HONai ., DR ALVARENGA Primary Care Unavailable ROB MORALES Attending Unavailable ROB MORALES Referring Unavailable ROB MORALES Attending Unavailable BERNICE DELEON Attending Unavailable ROB MORALES Referring Unavailable Matt Méndezlas Primary Care Physician [phone] Tom THOMPSON Attending Unavailable Tom THOMPSON Attending Unavailable Tom THOMPSON Attending Unavailable MD Colette Méndez Attending Provider [phone] Colette Méndez Attending Unavailable Dev, Colette M Admitting Unavailable Michaely Colette M Attending Unavailable Michaely, Colette M Admitting Unavailable ABDI ROYAL Attending Unavailable Colette Méndez MD Primary Care Provider HOY, COLETTE M Referring Unavailable HOY, COLETTE M Primary Care Unavailable HOY, COLETTE M Referring Unavailable HOY, COLETTE M Primary Care Unavailable HOY, COLETTE M Referring Unavailable HOY, COLETTE M Primary Care Unavailable HOY, COLETTE M Referring Unavailable HOY, COLETTE M Primary Care Unavailable HOY, COLETTE M Referring Unavailable HOY, COLETTE M Primary Care Unavailable HOY, COLETTE M Referring Unavailable HOY, COLETTE M Primary Care Unavailable HOY, COLETTE M Primary Care Unavailable HOY, COLETTE M Referring Unavailable HOY, COLETTE M Primary Care Unavailable HOY, COLETTE M Referring Unavailable HOY, COLETTE M Primary Care Unavailable HOY, COLETTE M Referring Unavailable HOY, COLETTE M Referring Unavailable HOY, COLETTE M Primary Care Unavailable SANJAY BERNARD Consulting Unavailable HOY, COLETTE M Primary Care Unavailable SANJAY BERNARD Admitting Unavailable SANJAY BERNARD Attending Unavailable GARRETT PERLA Consulting Unavailable DENILSON MANN Consulting Unavailable MARGIE FUNEZ Consulting Unavailable LUCIO BURRIS Consulting Unavailable SEVERIANO BRAMBILA Consulting Unavailable ADAN DENNIS Referring Unavailable COLETTE MÉNDEZ M Primary Care Unavailable COLETTE MÉNDEZ M Primary Care Unavailable COLETTE MÉNDEZ M Referring Unavailable KATY MONTOYA Attending Unavailab SANJAY Callejas MD Consulting Unavailable SANJAY BERNARD Admitting Unavailable SANJAY BERNARD Consulting Unavailable SANJAY BERNARD Attending Unavailable COLETTE MÉNDEZ Primary Care Unavailable GARRETT PERLA Consulting Unavailable DENILSON MANN Consulting Unavailable MARGIE FUNEZ Consulting Unavailable LUCIO BURRIS Consulting Unavailable SEVERIANO BRAMBILA Consulting Unavailable GARRETT PERLA Referring Unavailable COLETTE MÉNDEZ Primary Care Unavailable Allergies Allergy Classification Reported Allergen(s) Allergy Type Date of Onset Reaction(s) Facility (8 sources) Penicillins; Translations: [PENICILLINS] Propensity to adverse reactions to drug (disorder) 05-14-19 13 Anaphylactic shock due to serum (disorder), Urticaria [facility]disorder[facility]) Sulfonamides (Antibiotic); Translations: [SULFA ANTIBIOTICS] Propensity to adverse reactions to drug (disorder) 01-05-20 17 [facility] Repository (4 sources) Sulfonamides (Antibiotic); Translations: [SULFA (SULFONAMIDE ANTIBIOTICS)] Drug allergy (disorder) 05-14-19 13 [facility] Repository (2 sources) cefTRIAXone Drug Allergy 05-17-19 20 [facility] Repository (1 source) cefTRIAXone; Translations: [CEFTRIAXONE] Drug Allergy 09-01-19 [facility] Repository (3 sources) Cephalexin; Translations: [CEPHALEXIN] Drug Allergy 09-01-19 Anaphylaxis (disorder) [facility] Repository (4 sources) metroNIDAZOLE; Translations: [METRONIDAZOLE] Drug Allergy 09-01-19 Weal (disorder) [facility] Repository (1 source) Sulfamethoxazole / Trimethoprim; Translations: [SULFAMETHOXAZOLE-T RIMETHOPRIM] Drug Allergy 11-01-19 [facility] Repository (3 sources) Sulfonamides (Antibiotic); Translations: [sulfa drugs] Drug allergy 01-04-20 17 Urticaria (disorder) [facility] (1 source) Cephalexin; Translations: [Keflex] Drug Allergy [facility] Repository Medications Current Medications Medication Drug Class(es) Dates Sig (Normalized) Sig (Original) amiodarone hydrochloride 100 mg oral tablet (2 sources) Antiarrhythmic Start: 11-08-2022 take 2 tablets by mouth twice daily amiodarone 100 mg Tab 200 mg = 2 tab(s), Oral, BID, Refills(s) 0 Start Date: 11/08/22 Status: Ordered atorvastatin 40 mg oral tablet (5 sources) HMG-CoA Reductase Inhibitor Start: 11-08-2022 take 1 tablet by mouth once daily atorvastatin 40 mg Tab 40 mg = 1 tab(s), Oral, Daily, Refills(s) 0 Start Date: 11/08/22 Status: Ordered Centrum Silver oral tablet (2 sources) Start: 11-08-2022 take 1 tablet by mouth once daily Centrum Silver oral tablet 1 tab(s), Oral, Daily, Refill(s) 0 Start Date: 11/08/22 Status: Ordered cetirizine hydrochloride 10 mg oral tablet (5 sources) Histamine-1 Receptor Antagonist Start: 11-08-2022 take 1 tablet by mouth once daily cetirizine 10 mg Tab 10 mg = 1 tab(s), Oral, Daily, Refills(s) 0 Start Date: 11/08/22 Status: Ordered Cranberry-Vitamin C (CRANBERRY CONCENTRATE/VITAMINC ) 68757-406 MG CAPS (2 sources) take 1 tablet by mouth once daily Cranberry-Vitamin C (CRANBERRY CONCENTRATE/VITAMIN C) 82121-968 MG CAPS Take 1 tablet by mouth daily Take nature truth 30,000 mg cranberry concentrate with vitamin c daily 0 Active 24 hr dilTIAZem hydrochloride 240 mg extended release oral capsule (3 sources) Calcium Channel Tami take 1 capsule by mouth once daily dilTIAZem (DILACOR XR) 240 MG extended release capsule Take 1 capsule by mouth daily 0 Active DilTIAZem (Eqv-Dilacor XR) 240 mg/24 hours oral capsule, extended release (2 sources) Start: 11-08-2022 DilTIAZem (Eqv-Dilacor XR) 240 mg/24 hours oral capsule, extended release 240 mg = 1 cap(s), Oral, Daily, Refills(s) 0 Start Date: 11/08/22 Status: Ordered doxepin hydrochloride 10 mg oral capsule (5 sources) Tricyclic Antidepressant Start: 11-08-2022 take 1 capsule by mouth once daily at bedtime doxepin 10 mg Cap 10 mg = 1 cap(s), Oral, Once a day (at bedtime), Refills(s) 0 Start Date: 11/08/22 Status: Ordered empagliflozin 10 mg oral tablet (2 sources) Sodium-Glucose Cotransporter 2 Inhibitor Start: 11-08-2022 take 1 tablet by mouth once daily in the morning Jardiance 10 mg oral tablet 10 mg = 1 tab(s), Oral, qAM, Refills(s) 0 Start Date: 11/08/22 Status: Ordered escitalopram 10 mg oral tablet (2 sources) Serotonin Reuptake Inhibitor Start: 11-08-2022 take 1 tablet by mouth once daily escitalopram 10 mg Tab 10 mg = 1 tab(s), Oral, Daily, Refills(s) 0 Start Date: 11/08/22 Status: Ordered ferrous sulfate 325 mg oral tablet (5 sources) Start: 11-08-2022 take 1 tablet by mouth twice daily ferrous sulfate 325 mg Tab 325 mg = 1 tab(s), Oral, BID, Refills(s) 0 Start Date: 11/08/22 Status: Ordered furosemide 20 mg oral tablet (5 sources) Loop Diuretic Start: 11-08-2022 take 1 tablet by mouth once daily Lasix 20 mg Tab 20 mg = 1 tab(s), Oral, Daily, Refills(s) 0 Start Date: 11/08/22 Status: Ordered hydrocortisone 25 mg/ml rectal cream (2 sources) Corticosteroid Start: 11-08-2022 hydrocortisone 2.5% Rectal Crm w/Appl 1 manny, Rectal, BID, Refill(s) 0 Start Date: 11/08/22 Status: Ordered 24 hr isosorbide mononitrate 30 mg extended release oral tablet (3 sources) Nitrate Vasodilator take 1 tablet by mouth once daily isosorbide mononitrate (IMDUR) 30 MG extended release tablet Take 1 tablet by mouth daily 0 Active levothyroxine sodium 0.025 mg oral tablet (5 sources) l-Thyroxine Start: 11-08-2022 take 1 tablet by mouth once daily levothyroxine 25 mcg (0.025 mg) Tab 25 mcg = 1 tab(s), Oral, Daily, Refills(s) 0 Start Date: 11/08/22 Status: Ordered take 1 tablet by mouth once chrissy y levothyroxine (SYNTHROID) 25 MCG tablet Take 1 tablet by mouth Daily 0 Active liothyronine sodium 0.005 mg oral tablet (5 sources) l-Triiodothyronine Start: 11-08-2022 take 1 tablet by mouth once daily Cytomel 5 mcg Tab 5 mcg = 1 tab(s), Oral, Daily, Refills(s) 0 Start Date: 11/08/22 Status: Ordered take 1 tablet by mouth once chrissy y liothyronine (CYTOMEL) 5 MCG tablet Take 1 tablet by mouth daily 0 Active 24 hr memantine hydrochloride 28 mg extended release oral capsule (2 sources) F-ycrccj-I-aspartate Receptor Antagonist Start: 11-08-2022 take 1 capsule by mouth once daily Namenda XR 28 mg oral capsule, extended release 28 mg = 1 cap(s), Oral, Daily, Refills(s) 0 Start Date: 11/08/22 Status: Ordered metFORMIN hydrochloride 500 mg oral tablet (5 sources) Biguanide Start: 11-08-2022 take 1 tablet by mouth twice daily metformin 500 mg Tab 500 mg = 1 tab(s), Oral, BID, Refills(s) 0 Start Date: 11/08/22 Status: Ordered take 1 tablet by wang th once daily at breakfast metFORMIN (GLUCOPHAGE) 500 MG tablet Erick e 1 tablet by mouth daily (with breakfast) 0 Active metoprolol tartrate 25 mg oral tablet (3 sources) beta-Adrenergic Tami metoprolol tartrate (LOPRESSOR) 25 MG tablet Take 1 tablet by mouth daily 1/2 tablet 0 Active montelukast 10 mg oral tablet (5 sources) Leukotriene Receptor Antagonist Start: take 1 tablet by mouth once daily Singulair 10 mg Tab 10 mg = 1 tab(s), Oral, Daily, Refills(s) 0 Start Date: 11/08/22 Status: Ordered OLANZapine 2.5 mg oral tablet (5 sources) Atypical Antipsychotic Start: take 1 tablet by mouth once daily ZyPREXA 2.5 mg Tab 2.5 mg = 1 tab(s), Oral, Daily, Refills(s) 0 Start Date: 11/08/22 Status: Ordered pantoprazole 40 mg delayed release oral tablet (5 sources) Proton Pump Inhibitor Start: take 1 tablet by mouth once daily Pantoprazole [address] Tab 40 mg = 1 tab(s), Oral, Daily, Refills(s) 0 Start Date: 11/08/22 Status: Ordered spironolactone 25 mg oral tablet (3 sources) Aldosterone Antagonist take 1 tablet by mouth once daily spironolactone (ALDACTONE) 25 MG tablet Take 1 tablet by mouth daily 0 Active vitamin e 450 mg oral capsule (3 sources) take 1 capsule by mouth once daily vitamin E 1000 units capsule Take 1 capsule by mouth daily 0 Active vitamin k1 5 mg oral tablet (2 sources) Warfarin Reversal Agent, Vitamin K Start: take 1 tablet by mouth once daily phytonadione 5 mg Tab 5 mg = 1 tab(s), Oral, Daily, Refills(s) 0 Start Date: 11/08/22 Status: Ordered Warfarin (5 sources) Vitamin K Antagonist Start: warfarin as directed, Refills(s) 0 Start Date: 11/08/22 Status: Ordered warfarin (COUMAD IN) 3 MG tablet Take 1 tablet by mouth See Admin Instructions Dosed by [facility]ticoagulation [facility]: 1.5 mg Wed/Sat and 3 mg all other days 0 Active Completed/Discontinued Medications Medication Drug Class(es) Dates Sig (Normalized) Sig (Original) potassium chloride 10 meq extended release oral tablet (2 sources) Start: 11-08-2022 take 1 tablet by mouth twice daily Klor Con 10 mEq Cap-ER 10 mEq = 1 tab(s), Oral, BID, Refills(s) 0 Start Date: 11/08/22 Status: Ordered Problems Active Problems Problem Classification Problem Date Documented Date Episodic/Chronic Acute and unspecified renal failure (1 source) Acute kidney failure, unspecified; Translations: [ACUTE KIDNEY FAILURE UNSPECIFIED] Onset: 3 Episodic Anxiety disorders (1 source) Generalized anxiety disorder; Translations: [GENERALIZED ANXIETY DISORDER] Onset: 3 Chronic Asthma (2 sources) Asthma Onset: 3 11-08-2022 Chronic Bacterial infection; unspecified site (1 source) Unspecified Escherichia coli [E. coli] as the cause of diseases classified elsewhere; Translations: [UNS E COLI CAUSE DX CLASS ELSEWHERE] Onset: 3 Episodic Cancer of uterus (1 source) Personal history of malignant neoplasm of other parts of uterus; Translations: [PERS HX MAL NEOPLSM OTH PART UTRUS] Onset: 3 Episodic Cardiac dysrhythmias (19 sources) Unspecified atrial fibrillation; Translations: [Atrial premature complex ] Onset: 3 Chronic Chronic kidney disease (3 sources) Chronic kidney disease, stage 2 (mild); Translations: [Chronic kidney disease stage 3] Onset: 2 11-08-2022 Chronic Coagulation and hemorrhagic disorders (1 source) Thrombocytopenia, unspecified; Translations: [THROMBOCYTOPENIA UNSPECIFIED] Onset: 3 Chronic Conduction disorders (5 sources) Presence of cardiac pacemaker; Translations: [Encounter for adjustment and management of automatic implantable cardiac defibrillator] Onset: 3 Chronic Congestive heart failure; nonhypertensive (6 sources) Acute combined systolic and diastolic heart failure; Translations: [Congestive heart failure] Onset: 4 11-08-2022 Chronic Diabetes mellitus with complications (2 sources) Type 2 diabetes mellitus with diabetic chronic kidney disease; Translations: [Type 2 diabetes mellitus with hyperglycemia] Onset: 3 Chronic Diabetes mellitus without complication (5 sources) Type 2 diabetes mellitus without complications; Translations: [Diabetes mellitus without complication] Onset: 3 11-08-2022 Chronic Diseases of white blood cells (2 sources) Leukocytosis 11-08-2022 Chronic Disorders of lipid metabolism (4 sources) Pure hypercholesterolemia, unspecified; Translations: [Hyperlipidemia, unspecified] Onset: 3 11-08-2022 Chronic E Codes: Fall (3 sources) Other fall on same level, initial encounter; Translations: [Unspecified fall, initial encounter] Onset: 2 Episodic Esophageal disorders (3 sources) Gastro-esophageal reflux disease without esophagitis; Translations: [Gastroesophageal reflux disease] Onset: 3 11-08-2022 Chronic Essential hypertension (5 sources) Essential (primary) hypertension; Translations: [Essential hypertension] Onset: 7 11-08-2022 Chronic Fever of unknown origin (4 sources) Fever, unspecified; Translations: [FEVER UNSPECIFIED] Onset: 3 Episodic Fluid and electrolyte disorders (5 sources) Hypokalemia; Translations: [Hypo-osmolality and hyponatremia] Onset: 3 Episodic Fracture of neck of femur (hip) (4 sources) Nondisplaced intertrochanteric fracture of left femur, initial encounter for closed fracture; Translations: [Fracture of unspecified part of neck of left femur, initial encounter for closed fracture] Onset: 4 Episodic Genitourinary symptoms and ill-defined conditions (1 source) Personal history of urinary (tract) infections; Translations: [PERS HX URINARY TRACT INFECTIONS] Onset: 3 Episodic Heart valve disorders (14 sources) Nonrheumatic aortic (valve) stenosis; 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, aortic and tricuspid valves] Onset: 3 Chronic Hemorrhoids (2 sources) Hemorrhoids 11-08-2022 Episodic Hypertension with complications and secondary hypertension (1 source) Hypertensive chronic kidney disease with stage 1 through stage 4 chronic kidney disease, or unspecified chronic kidney disease; Translations: [HTN CKD W/STAGE 1-4 CKD/UNS CKD] Onset: 3 Chronic Malaise and fatigue (2 sources) Chronic fatigue syndrome 11-08-2022 Chronic Malaise and fatigue (5 sources) Weakness; Translations: [Other fatigue] Onset: 3 Episodic Neoplasms of unspecified nature or uncertain behavior (4 sources) Neoplasm of uncertain behavior of skin; Translations: [Neoplasm of uncertain behavior of skin] Onset: 3 Episodic Osteoarthritis (1 source) Unspecified osteoarthritis, unspecified site; Translations: [UNSPECIFIED OSTEOARTHRITIS UNS SITE] Onset: 3 Chronic Osteoporosis (2 sources) Senile osteoporosis 11-08-2022 Chronic Other aftercare (5 sources) FPC (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; Translations: [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 ANTICOAGULANTS] Onset: 3 Episodic Other aftercare (5 sources) Encounter for therapeutic drug level monitoring; Translations: [ENC THERAPEUTC DRUG LEVL MONITORING] Onset: 3 Episodic Other aftercare (1 source) seasonal clerk (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 insulin; Translations: [CORRECTION CURRENT USE OF INSULIN] Onset: 3 Episodic Other aftercare (5 sources) Other residential (current) drug therapy; Translations: [OTH CORRECTION CURRENT DRUG THERAPY] Onset: 2 Episodic Other aftercare (1 source) FPC (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 oral hypoglycemic drugs; Translations: [CORRECTION USE ORAL HYPOGLYCEMIC DX] Onset: 3 Episodic Other hematologic conditions (1 source) Other specified abnormalities of plasma proteins; Translations: [OTH SPEC ABNORM PLASMA PROTEINS] Onset: 3 Episodic Other lower respiratory disease (1 source) Personal history of pneumonia (recurrent); Translations: [PERSONAL HX OF PNEUMONIA RECURRENT] Onset: 3 Episodic Other lower respiratory disease (1 source) Shortness of breath; Translations: [Shortness of breath] Onset: 4 Episodic Other screening for suspected conditions (not mental disorders or infectious disease) (2 sources) Abnormal coagulation profile; Translations: [Other specified abnormal findings of blood chemistry] Onset: 3 Episodic Other skin disorders (1 source) Senile hyperkeratosis; Translations: [Other seborrheic keratosis] Onset: 3 Episodic Other upper respiratory disease (2 sources) Allergic rhinitis 11-08-2022 Chronic Other upper respiratory disease (4 sources) Dysphonia; Translations: [DYSPHONIA] Onset: 3 Episodic Pneumonia (except that caused by tuberculosis or sexually transmitted disease) (3 sources) Pneumonia, unspecified organism; Translations: [PNEUMONIA UNSPECIFIED ORGANISM] Onset: 3 Episodic Prolapse of female genital organs (2 sources) Cystocele 11-08-2022 Chronic Residual codes; unclassified (1 source) Acquired absence of both cervix and uterus; Translations: [ACQUIRED ABSENCE BOTH CERVIX AND UTERUS] Onset: 3 Episodic Residual codes; unclassified (2 sources) Amnesia 11-08-2022 Episodic Residual codes; unclassified (2 sources) Insomnia 11-08-2022 Episodic Residual codes; unclassified (1 source) Pain, unspecified; Translations: [Pain, unspecified] Onset: 4 Episodic Rheumatoid arthritis and related disease (3 sources) Rheumatoid arthritis, unspecified; Translations: [Rheumatoid arthritis] Onset: 3 11-08-2022 Chronic Screening and history of mental health and substance abuse codes (1 source) Personal history of nicotine dependence; Translations: [PERSONAL HISTORY OF NICOTINE DEPEND] Onset: 3 Episodic Spondylosis; intervertebral disc disorders; other back problems (2 sources) Lumbar radiculopathy 11-08-2022 Episodic Thyroid disorders (9 sources) Hypothyroidism, unspecified; Translations: [Hypothyroidism] Onset: 3 Chronic Unclassified (5 sources) Chronic atrial fibrillation, unspecified; Translations: [CHRONIC ATRIAL FIBRILLATION UNSPEC] Onset: 3 Unclassified (1 source) CHRN KIDNEY DISEASE STG 3 UNSP; Translations: [CHRN KIDNEY DISEASE STG 3 UNSP] Onset: 3 Unclassified (1 source) CONTACT W/AND (SUSP) EXPOS COVID-19; Translations: [CONTACT W/AND (SUSP) EXPOS COVID-19] Onset: 2 Unclassified (2 sources) Other persistent atrial fibrillation; Translations: [Other persistent atrial fibrillation] Onset: 2 Unclassified (2 sources) Body mass index 20-24 - normal 11-14-2022 Unclassified (2 sources) Seborrheic keratosis 11-14-2022 Urinary tract infections (1 source) Urinary tract infection, site not specified; Translations: [UTI SITE NOT SPECIFIED] Onset: 3 Episodic Varicose veins of lower extremity (2 sources) Varicose veins of lower extremity 11-08-2022 Episodic Past or Other Problems Problem Classification Problem Date Documented Da te Episodic/Chronic Cardiac dysrhythmias (2 sources) Palpitations Onset: 05-22-2012 11-08-2022 Episodic Deficiency and other anemia (1 source) Anemia, unspecified; Translations: [ANEMIA UNSPECIFIED] Onset: 04-26-2022 Episodic Diabetes mellitus without complication (1 source) Other abnormal glucose; Translations: [OTHER ABNORMAL GLUCOSE] Onset: 04-26-2022 Episodic Other fractures (1 source) Other specified fracture of left pubis, initial encounter for closed fracture; Translations: [OTHER SPEC FX LT PUBIS INIT CLOS FX] Onset: 09-22-2021 Episodic Other fractures (1 source) Unspecified fracture of sacrum, initial encounter for closed fracture; Translations: [UNS FX SACRUM INITIAL CLOS FRACTURE] Onset: 09-22-2021 Episodic Other gastrointestinal disorders (1 source) Bariatric surgery status; Translations: [BARIATRIC SURGERY STATUS] Onset: 09-22-2021 Episodic Other injuries and conditions due to external causes (1 source) History of falling; Translations: [HISTORY OF FALLING] Onset: 09-22-2021 Episodic Other non-traumatic joint disorders (3 sources) Pain in left hip; Translations: [PAIN IN LEFT HIP] Onset: 09-13-2021 Episodic Results Test Name Value Interpretation Reference Range Facility Basic Metabolic Profon 07-29 Anion gap [Moles/Vol] 9 mmol/L Normal 9-16 [facility] Comment on above: Performed By: #### B MPX #### [address] [address] Warehouse Distribution Manager: Alexey Green MD Calcium [Mass/Vol] 8.1 mg/dL Low 8.6-10.4 [facility] Comment on above: Performed By: #### B MPX #### [address] [address] Warehouse Distribution Manager: Alexey Green MD Chloride [Moles/Vol] 113 mmol/L High 98-107 [facility] Comment on above: Performed By: #### B MPX #### [address] [address] Warehouse Distribution Manager: Alexey Green MD CO2 [Moles/Vol] 18 mmol/L Low 20-31 [facility] Comment on above: Performed By: #### B MPX #### [address] [address] Warehouse Distribution Manager: Alexey Green MD Creatinine [Mass/Vol] 2.2 mg/dL High 0.50-0.90 [facility] Comment on above: Performed By: #### B MPX #### [address] [address] Warehouse Distribution Manager: Alexey Green MD GFR/1.73 sq M.predicted among non-blacks MDRD (S/P/Bld) [Vol rate/Area] 21 mL/min/{1.73_m2} Low >60 [facility] Comment on above: Result Comment: These results are not intended for use in patients <18 years of age. eGFR results are calculated without a race factor using the 2020 CKD-EPI equation. Careful clinical correlation is recommended, particularly when comparing to results calculated using previous equations. The CKD-EPI equation is less accurate in patients with extremes of muscle mass, extra-renal metabolism of creatine, excessive creatine ingestion, or following therapy that affects renal tubular secretion. Performed By: #### B MPX #### [facility] [address] [place] [address] Warehouse Distribution Manager: Alexey Grene MD Glucose [Mass/Vol] 157 mg/dL High 74-99 [facility] Comment on above: Performed By: #### B MPX #### [address] [address] Warehouse Distribution Manager: Alexey Green MD Potassium [Moles/Vol] 4.8 mmol/L Normal 3.7-5.3 [facility] Comment on above: Performed By: #### B MPX #### [address] [address] Warehouse Distribution Manager: Alexey Green MD Sodium [Moles/Vol] 140 mmol/L Normal 136-145 [facility] Comment on above: Performed By: #### B MPX #### [address] [address] Warehouse Distribution Manager: Alexey Green MD Urea nitrogen [Mass/Vol] 42 mg/dL High 8-23 [facility] Comment on above: Performed By: #### B MPX #### [address] [address] Warehouse Distribution Manager: Alexey Green MD Anion gap [Moles/Vol] 9 mmol/L Normal 9-16 [facility] Comment on above: Performed By: #### C DP, BMP #### [facility] [address] [place] [address] Warehouse Distribution Manager: Alexey Green MD Calcium [Mass/Vol] 8.1 mg/dL Low 8.6-10.4 [facility] Comment on above: Performed By: #### C DP, BMP #### [address] [address] Warehouse Distribution Manager: Alexey Green MD Chloride [Moles/Vol] 113 mmol/L High 98-107 [facility] Comment on above: Performed By: #### C DP, BMP #### [address] [address] Warehouse Distribution Manager: Alexey Green MD CO2 [Moles/Vol] 18 mmol/L Low 20-31 [facility] Comment on above: Performed By: #### C DP, BMP #### [facility] [address] [place] [address] Warehouse Distribution Manager: Alexey Green MD Creatinine [Mass/Vol] 2.2 mg/dL High 0.50-0.90 [facility] Comment on above: Performed By: #### C DP, BMP #### [address] [address] Warehouse Distribution Manager: Alexey Green MD GFR/1.73 sq M.predicted among non-blacks MDRD (S/P/Bld) [Vol rate/Area] 21 mL/min/{1.73_m2} Low >60 [facility] Comment on above: Result Comment: These results are not intended for use in patients <18 years of age. eGFR results are calculated without a race factor using the 2020 CKD-EPI equation. Careful clinical correlation is recommended, particularly when comparing to results calculated using previous equations. The CKD-EPI equation is less accurate in patients with extremes of muscle mass, extra-renal metabolism of creatine, excessive creatine ingestion, or following therapy that affects renal tubular secretion. Performed By: #### C DP, BMP #### [facility] [address] [place] [address] [place] [address] Warehouse Distribution Manager: Alexey Green MD Glucose [Mass/Vol] 157 mg/dL High 74-99 [facility] Comment on above: Performed By: #### C DP, BMP #### [facility] [address] [place] [address] Warehouse Distribution Manager: Alexey Green MD Potassium [Moles/Vol] 4.8 mmol/L Normal 3.7-5.3 [facility] Comment on above: Performed By: #### C DP, BMP #### [facility] [address] [place] [address] Warehouse Distribution Manager: Alexey Green MD Sodium [Moles/Vol] 140 mmol/L Normal 136-145 [facility] Comment on above: Performed By: #### C DP, BMP #### [facility] [address] [place] [address] Warehouse Distribution Manager: Alexey Green MD Urea nitrogen [Mass/Vol] 42 mg/dL High 8-23 [facility] Comment on above: Performed By: #### C DP, BMP #### [address] [address] Warehouse Distribution Manager: Alexey Green MD CBC with Diffon 07-30-2023 Abs. Basophil 0.00 k/uL Normal 0.00-0.20 [facility] Comment on above: Performed By: #### B MPX #### [facility] [address] [place] [address] Warehouse Distribution Manager: Alexey Green MD Abs.Imm.Granulocyte 0.11 k/uL Normal 0.00-0.30 [facility] Comment on above: Performed By: #### B MPX #### [facility] [address] [place] [address] Warehouse Distribution Manager: Alexey Green MD Abs.Neutrophil (Seg) 5.72 k/uL Normal 1.50-8.10 [facility] Comment on above: Performed By: #### B MPX #### [address] [address] Warehouse Distribution Manager: Alexey Green MD Basophils/100 WBC (Bld) 0 % Normal 0-2 [facility] Comment on above: Performed By: #### B MPX #### [address] [address] Warehouse Distribution Manager: Alexey Green MD Eosinophils (Bld) [#/Vol] 0.32 10*3/uL Normal 0.00-0.44 [facility] Comment on above: Performed By: #### B MPX #### [address] [address] Warehouse Distribution Manager: Alexey Green MD Eosinophils/100 WBC (Bld) 3 % Normal 1-4 [facility] Comment on above: Performed By: #### B MPX #### [address] [address] Warehouse Distribution Manager: Alexey Green MD Immature granulocytes/100 WBC (Bld) 1 % High 0 [facility] Comment on above: Performed By: #### B MPX #### [address] [address] Warehouse Distribution Manager: Alexey Green MD Lymphocytes (Bld) [#/Vol] 2.92 10*3/uL Normal 1.10-3.70 [facility] Comment on above: Performed By: #### B MPX #### [address] [address] Warehouse Distribution Manager: Alexey Green MD Lymphocytes/100 WBC (Bld) 27 % Normal 24-43 [facility] Comment on above: Performed By: #### B MPX #### [address] [address] Warehouse Distribution Manager: Alexey Green MD Monocytes (Bld) [#/Vol] 1.73 10*3/uL High 0.10-1.20 [facility] Comment on above: Performed By: #### B MPX #### [address] [address] Warehouse Distribution Manager: Alexey Green MD Monocytes/100 WBC (Bld) 16 % High 3-12 [facility] Comment on above: Performed By: #### B MPX #### [address] [address] Warehouse Distribution Manager: Alexey Green MD Morphology Tito (Bld) [Interp] ANISOCYTOSIS PRESENT Normal [facility] Comment on above: Result Comment: MACR OCYTOSIS PRESENT Performed By: #### B MPX #### [address] [address] Warehouse Distribution Manager: Alexey Green MD Neutrophil (Seg) 53 % Normal 36-65 [facility] Comment on above: Performed By: #### B MPX #### [address] [address] Warehouse Distribution Manager: Alexey Green MD Erythrocyte distribution width (RBC) [Ratio] 17.7 % High 11.8-14.4 [facility] Comment on above: Performed By: #### B MPX #### [address] [address] Warehouse Distribution Manager: Alexey Green MD Hematocrit (Bld) [Volume fraction] 26.6 % Low 36.3-47.1 [facility] Comment on above: Performed By: #### B MPX #### [address] [address] Warehouse Distribution Manager: Alexey Green MD Hemoglobin (Bld) [Mass/Vol] 7.6 g/dL Low 11.9-15.1 [facility] Comment on above: Performed By: #### B MPX #### [place] [address] Warehouse Distribution Manager: Alexey Green MD MCH (RBC) [Entitic mass] 29.5 pg Normal 25.2-33.5 [facility] Comment on above: Performed By: #### B MPX #### [place] [address] Warehouse Distribution Manager: Alexey Green MD MCHC (RBC) [Mass/Vol] 28.6 g/dL Normal 28.4-34.8 [facility] Comment on above: Performed By: #### B MPX #### [place] [address] Warehouse Distribution Manager: Alexey Green MD MCV (RBC) [Entitic vol] 103.1 fL High 82.6-102.9 [facility] Comment on above: Performed By: #### B MPX #### [place] [address] Warehouse Distribution Manager: Alexey Green MD NRBC Automated 0.4 per 100 WBC High 0.0 [facility] Comment on above: Performed By: #### B MPX #### [place] [address] Warehouse Distribution Manager: Alexey Green MD Platelet mean volume (Bld) [Entitic vol] 10.9 fL Normal 8.1-13.5 [facility] Comment on above: Performed By: #### B MPX #### [place] [address] Warehouse Distribution Manager: Alexey Green MD Platelets (Bld) [#/Vol] 226 10*3/uL Normal 138-453 [facility] Comment on above: Performed By: #### B MPX #### [address] [address] Warehouse Distribution Manager: Alexey Green MD RBC (Bld) [#/Vol] 2.58 10*6/uL Low 3.95-5.11 [facility] Comment on above: Performed By: #### B MPX #### [address] [address] Warehouse Distribution Manager: Alexey Green MD WBC (Bld) [#/Vol] 10.8 10*3/uL Normal 3.5-11.3 [facility] Comment on above: Performed By: #### B MPX #### [address] [address] Warehouse Distribution Manager: Alexey Green MD Abs. Basophil 0.00 k/uL Normal 0.00-0.20 [facility] Comment on above: Performed By: #### C DP, BMP #### [address] [address] Warehouse Distribution Manager: Alexey Green MD Abs.Imm.Granulocyte 0.11 k/uL Normal 0.00-0.30 [facility] Comment on above: Performed By: #### C DP, BMP #### [address] [address] Warehouse Distribution Manager: Alexey Green MD Abs.Neutrophil (Seg) 5.72 k/uL Normal 1.50-8.10 [facility] Comment on above: Performed By: #### C DP, BMP #### [address] [address] Warehouse Distribution Manager: Alexey Green MD Basophils/100 WBC (Bld) 0 % Normal 0-2 [facility] Comment on above: Performed By: #### C DP, BMP #### [address] [address] Warehouse Distribution Manager: Alexey Green MD Eosinophils (Bld) [#/Vol] 0.32 10*3/uL Normal 0.00-0.44 [facility] Comment on above: Performed By: #### C DP, BMP #### [address] [address] Warehouse Distribution Manager: Alexey Green MD Eosinophils/100 WBC (Bld) 3 % Normal 1-4 [facility] Comment on above: Performed By: #### C DP, BMP #### [address] [address] Warehouse Distribution Manager: Alexey Green MD Immature granulocytes/100 WBC (Bld) 1 % High 0 [facility] Comment on above: Performed By: #### C DP, BMP #### [address] [address] Warehouse Distribution Manager: Alexey Green MD Lymphocytes (Bld) [#/Vol] 2.92 10*3/uL Normal 1.10-3.70 [facility] Comment on above: Performed By: #### C DP, BMP #### [address] [address] Warehouse Distribution Manager: Alexey Green MD Lymphocytes/100 WBC (Bld) 27 % Normal 24-43 [facility] Comment on above: Performed By: #### C DP, BMP #### [address] [address] Warehouse Distribution Manager: Alexey Green MD Monocytes (Bld) [#/Vol] 1.73 10*3/uL High 0.10-1.20 [facility] Comment on above: Performed By: #### C DP, BMP #### [address] [address] Warehouse Distribution Manager: Alexey Green MD Monocytes/100 WBC (Bld) 16 % High 3-12 [facility] Comment on above: Performed By: #### C DP, BMP #### [address] [address] Warehouse Distribution Manager: Alexey Green MD Morphology Tito (Bld) [Interp] ANISOCYTOSIS PRESENT Normal [facility] Comment on above: Result Comment: MACR OCYTOSIS PRESENT Performed By: #### C DP, BMP #### [address] [address] Warehouse Distribution Manager: Alexey Green MD Neutrophil (Seg) 53 % Normal 36-65 [facility] Comment on above: Performed By: #### C DP, BMP #### [facility] [address] [place] [address] Warehouse Distribution Manager: Alexey Green MD Erythrocyte distribution width (RBC) [Ratio] 17.7 % High 11.8-14.4 [facility] Comment on above: Performed By: #### C DP, BMP #### [address] [address] Warehouse Distribution Manager: Alexey Green MD Hematocrit (Bld) [Volume fraction] 26.6 % Low 36.3-47.1 [facility] Comment on above: Performed By: #### C DP, BMP #### [address] [address] Warehouse Distribution Manager: Alexey Green MD Hemoglobin (Bld) [Mass/Vol] 7.6 g/dL Low 11.9-15.1 [facility] Comment on above: Performed By: #### C DP, BMP #### [facility] [address] [place] [address] Warehouse Distribution Manager: Alexey Green MD MCH (RBC) [Entitic mass] 29.5 pg Normal 25.2-33.5 [facility] Comment on above: Performed By: #### C DP, BMP #### [address] [address] Warehouse Distribution Manager: Alexey Green MD MCHC (RBC) [Mass/Vol] 28.6 g/dL Normal 28.4-34.8 [facility] Comment on above: Performed By: #### C DP, BMP #### [address] [address] Warehouse Distribution Manager: Alexey Green MD MCV (RBC) [Entitic vol] 103.1 fL High 82.6-102.9 [facility] Comment on above: Performed By: #### C DP, BMP #### [address] [address] Warehouse Distribution Manager: Alexey Green MD NRBC Automated 0.4 per 100 WBC High 0.0 [facility] Comment on above: Performed By: #### C DP, BMP #### [address] [address] Warehouse Distribution Manager: Alexey Green MD Platelet mean volume (Bld) [Entitic vol] 10.9 fL Normal 8.1-13.5 [facility] Comment on above: Performed By: #### C DP, BMP #### [address] [address] Warehouse Distribution Manager: Alexey rGeen MD Platelets (Bld) [#/Vol] 226 10*3/uL Normal 138-453 [facility] Comment on above: Performed By: #### C DP, BMP #### [address] [address] Warehouse Distribution Manager: Alexey Green MD RBC (Bld) [#/Vol] 2.58 10*6/uL Low 3.95-5.11 [facility] Comment on above: Performed By: #### C DP, BMP #### [address] [address] Warehouse Distribution Manager: Alexey Green MD WBC (Bld) [#/Vol] 10.8 10*3/uL Normal 3.5-11.3 [facility] Comment on above: Performed By: #### C DP, BMP #### [address] [address] Warehouse Distribution Manager: Alexey Green MD Basic Metabolic Profon 07-28 Anion gap [Moles/Vol] 9 mmol/L Normal 9-16 [facility] Comment on above: Performed By: #### B MPX #### [address] [address] Warehouse Distribution Manager: Alexey Green MD Calcium [Mass/Vol] 8.1 mg/dL Low 8.6-10.4 [facility] Comment on above: Performed By: #### B MPX #### [address] [address] Warehouse Distribution Manager: Alexey Green MD Chloride [Moles/Vol] 112 mmol/L High 98-107 [facility] Comment on above: Performed By: #### B MPX #### [address] [address] Warehouse Distribution Manager: Alexey Green MD CO2 [Moles/Vol] 18 mmol/L Low 20-31 [facility] Comment on above: Performed By: #### B MPX #### [address] [address] Warehouse Distribution Manager: Alexey Green MD Creatinine [Mass/Vol] 2.5 mg/dL High 0.50-0.90 [facility] Comment on above: Performed By: #### B MPX #### [address] [address] Warehouse Distribution Manager: Alexey Green MD GFR/1.73 sq M.predicted among non-blacks MDRD (S/P/Bld) [Vol rate/Area] 18 mL/min/{1.73_m2} Low >60 [facility] Comment on above: Result Comment: These results are not intended for use in patients <18 years of age. eGFR results are calculated without a race factor using the 2020 CKD-EPI equation. Careful clinical correlation is recommended, particularly when comparing to results calculated using previous equations. The CKD-EPI equation is less accurate in patients with extremes of muscle mass, extra-renal metabolism of creatine, excessive creatine ingestion, or following therapy that affects renal tubular secretion. Performed By: #### B MPX #### [facility] [address] [place] [address] Warehouse Distribution Manager: Alexey Green MD Glucose [Mass/Vol] 109 mg/dL High 74-99 [facility] Comment on above: Performed By: #### B MPX #### [address] [address] Warehouse Distribution Manager: Alexey Green MD Potassium [Moles/Vol] 4.6 mmol/L Normal 3.7-5.3 [facility] Comment on above: Performed By: #### B MPX #### [address] [address] Warehouse Distribution Manager: Alexey Green MD Sodium [Moles/Vol] 139 mmol/L Normal 136-145 [facility] Comment on above: Performed By: #### B MPX #### [address] [address] Warehouse Distribution Manager: Alexey Green MD Urea nitrogen [Mass/Vol] 45 mg/dL High 8-23 [facility] Comment on above: Performed By: #### B MPX #### [facility] [address] [place] [address] Warehouse Distribution Manager: Alexey Green MD Anion gap [Moles/Vol] 9 mmol/L Normal 9-16 [facility] Comment on above: Performed By: #### C DP, BMP #### [address] [address] Warehouse Distribution Manager: Alexey Green MD Calcium [Mass/Vol] 8.1 mg/dL Low 8.6-10.4 [facility] Comment on above: Performed By: #### C DP, BMP #### [address] [address] Warehouse Distribution Manager: Alexey Green MD Chloride [Moles/Vol] 112 mmol/L High 98-107 [facility] Comment on above: Performed By: #### C DP, BMP #### [facility] [address] [place] [address] Warehouse Distribution Manager: Alexey Green MD CO2 [Moles/Vol] 18 mmol/L Low 20-31 [facility] Comment on above: Performed By: #### C DP, BMP #### [address] [address] Warehouse Distribution Manager: Alexey Green MD Creatinine [Mass/Vol] 2.5 mg/dL High 0.50-0.90 [facility] Comment on above: Performed By: #### C DP, BMP #### [address] [address] Warehouse Distribution Manager: Alexey Green MD GFR/1.73 sq M.predicted among non-blacks MDRD (S/P/Bld) [Vol rate/Area] 18 mL/min/{1.73_m2} Low >60 [facility] Comment on above: Result Comment: These results are not intended for use in patients <18 years of age. eGFR results are calculated without a race factor using the 2020 CKD-EPI equation. Careful clinical correlation is recommended, particularly when comparing to results calculated using previous equations. The CKD-EPI equation is less accurate in patients with extremes of muscle mass, extra-renal metabolism of creatine, excessive creatine ingestion, or following therapy that affects renal tubular secretion. Performed By: #### C DP, BMP #### [address] [address] Warehouse Distribution Manager: Alexey Green MD Glucose [Mass/Vol] 109 mg/dL High 74-99 [facility] Comment on above: Performed By: #### C DP, BMP #### [address] [address] Warehouse Distribution Manager: Alexey Green MD Potassium [Moles/Vol] 4.6 mmol/L Normal 3.7-5.3 [facility] Comment on above: Performed By: #### C DP, BMP #### [facility] [address] [place] [address] Warehouse Distribution Manager: Alexey Green MD Sodium [Moles/Vol] 139 mmol/L Normal 136-145 [facility] Comment on above: Performed By: #### C DP, BMP #### [address] [address] Warehouse Distribution Manager: Alexey Green MD Urea nitrogen [Mass/Vol] 45 mg/dL High 8-23 [facility] Comment on above: Performed By: #### C DP, BMP #### [address] [address] Warehouse Distribution Manager: Alexey Green MD CBC with Diffon 07-29-2023 Abs. Basophil 0.05 k/uL Normal 0.00-0.20 [facility] Comment on above: Performed By: #### B MPX #### [facility] [address] [place] [address] Warehouse Distribution Manager: Alexey Green MD Abs.Imm.Granulocyte 0.09 k/uL Normal 0.00-0.30 [facility] Comment on above: Performed By: #### B MPX #### [address] [address] Warehouse Distribution Manager: Alexey Green MD Abs.Neutrophil (Seg) 5.76 k/uL Normal 1.50-8.10 [facility] Comment on above: Performed By: #### B MPX #### [place] [address] Warehouse Distribution Manager: Alexey Green MD Basophils/100 WBC (Bld) 1 % Normal 0-2 [facility] Comment on above: Performed By: #### B MPX #### [place] [address] Warehouse Distribution Manager: Alexey Green MD Eosinophils (Bld) [#/Vol] 0.65 10*3/uL High 0.00-0.44 [facility] Comment on above: Performed By: #### B MPX #### [place] [address] Warehouse Distribution Manager: Alxeey Green MD Eosinophils/100 WBC (Bld) 6 % High 1-4 [facility] Comment on above: Performed By: #### B MPX #### [place] [address] Warehouse Distribution Manager: Alexey Green MD Erythrocyte distribution width (RBC) [Ratio] 17.6 % High 11.8-14.4 [facility] [facility] Comment on above: Performed By: #### B MPX #### [place] [address] Warehouse Distribution Manager: Alexey Green MD Hematocrit (Bld) [Volume fraction] 27.1 % Low 36.3-47.1 [facility] Comment on above: Performed By: #### B MPX #### [place] [address] Warehouse Distribution Manager: Alexey Green MD Hemoglobin (Bld) [Mass/Vol] 7.7 g/dL Low 11.9-15.1 [facility] Comment on above: Performed By: #### B MPX #### [address] [address] Warehouse Distribution Manager: Alexey Green MD Immature granulocytes/100 WBC (Bld) 1 % High 0 [facility] Comment on above: Performed By: #### B MPX #### [address] [address] Warehouse Distribution Manager: Alexey Green MD Lymphocytes (Bld) [#/Vol] 2.69 10*3/uL Normal 1.10-3.70 [facility] Comment on above: Performed By: #### B MPX #### [address] [address] Warehouse Distribution Manager: Alexey Green MD Lymphocytes/100 WBC (Bld) 25 % Normal 24-43 [facility] Comment on above: Performed By: #### B MPX #### [address] [address] Warehouse Distribution Manager: Alexey Green MD MCH (RBC) [Entitic mass] 29.5 pg Normal 25.2-33.5 [facility] Comment on above: Performed By: #### B MPX #### [address] [address] Warehouse Distribution Manager: Alexey Green MD MCHC (RBC) [Mass/Vol] 28.4 g/dL Normal 28.4-34.8 [facility] Comment on above: Performed By: #### B MPX #### [address] [address] Warehouse Distribution Manager: Alexey Green MD MCV (RBC) [Entitic vol] 103.8 fL High 82.6-102.9 [facility] Comment on above: Performed By: #### B MPX #### [address] [address] Warehouse Distribution Manager: Alexey Green MD Monocytes (Bld) [#/Vol] 1.34 10*3/uL High 0.10-1.20 [facility] Comment on above: Performed By: #### B MPX #### [address] [address] Warehouse Distribution Manager: Alexey Green MD Monocytes/100 WBC (Bld) 13 % High 3-12 [facility] Comment on above: Performed By: #### B MPX #### [address] [address] Warehouse Distribution Manager: Alexey Green MD Neutrophil (Seg) 54 % Normal 36-65 [facility] Comment on above: Performed By: #### B MPX #### [address] [address] Warehouse Distribution Manager: Alexey Green MD NRBC Automated 0.3 per 100 WBC High 0.0 [facility] Comment on above: Performed By: #### B MPX #### [address] [address] Warehouse Distribution Manager: Alexey Green MD Platelet mean volume (Bld) [Entitic vol] 11.4 fL Normal 8.1-13.5 [facility] Comment on above: Performed By: #### B MPX #### [address] [address] Warehouse Distribution Manager: Alexey Green MD Platelets (Bld) [#/Vol] 180 10*3/uL Normal 138-453 [facility] Comment on above: Performed By: #### B MPX #### [address] [address] Warehouse Distribution Manager: Alexey Green MD RBC (Bld) [#/Vol] 2.61 10*6/uL Low 3.95-5.11 [facility] Comment on above: Performed By: #### B MPX #### [address] [address] Warehouse Distribution Manager: Alexey Green MD RBC morphology finding Nom (Bld) ANISOCYTOSIS PRESENT Normal [facility] Comment on above: Result Comment: MACR OCYTOSIS PRESENT Performed By: #### B MPX #### [address] [address] Warehouse Distribution Manager: Alexey Green MD WBC (Bld) [#/Vol] 10.6 10*3/uL Normal 3.5-11.3 [facility] Comment on above: Performed By: #### B MPX #### [address] [address] Warehouse Distribution Manager: Alexey Green MD Abs. Basophil 0.05 k/uL Normal 0.00-0.20 [facility] Comment on above: Performed By: #### C DP, BMP #### [address] [address] Warehouse Distribution Manager: Alexey Green MD Abs.Imm.Granulocyte 0.09 k/uL Normal 0.00-0.30 [facility] Comment on above: Performed By: #### C DP, BMP #### [address] [address] Warehouse Distribution Manager: Alexey Green MD Abs.Neutrophil (Seg) 5.76 k/uL Normal 1.50-8.10 [facility] Comment on above: Performed By: #### C DP, BMP #### [address] [address] Warehouse Distribution Manager: Alexey Green MD Basophils/100 WBC (Bld) 1 % Normal 0-2 [facility] Comment on above: Performed By: #### C DP, BMP #### [address] [place] [address] Warehouse Distribution Manager: Alexey Green MD Eosinophils (Bld) [#/Vol] 0.65 10*3/uL High 0.00-0.44 [facility] Comment on above: Performed By: #### C DP, BMP #### [address] [address] Warehouse Distribution Manager: Alexey Green MD Eosinophils/100 WBC (Bld) 6 % High 1-4 [facility] Comment on above: Performed By: #### C DP, BMP #### [address] [address] Warehouse Distribution Manager: Alexey Green MD Erythrocyte distribution width (RBC) [Ratio] 17.6 % High 11.8-14.4 [facility] Comment on above: Performed By: #### C DP, BMP #### [facility] [address] [place] [address] Warehouse Distribution Manager: Alexey Green MD Hematocrit (Bld) [Volume fraction] 27.1 % Low 36.3-47.1 [facility] Comment on above: Performed By: #### C DP, BMP #### [facility] [employer] [address] [place] [address] Warehouse Distribution Manager: Alexey Green MD Hemoglobin (Bld) [Mass/Vol] 7.7 g/dL Low 11.9-15.1 [facility] Comment on above: Performed By: #### C DP, BMP #### [facility] [address] [place] [address] Warehouse Distribution Manager: Alexey Green MD Immature granulocytes/100 WBC (Bld) 1 % High 0 [facility] Comment on above: Performed By: #### C DP, BMP #### [facility] [address] [place] [address] Warehouse Distribution Manager: Alexey Green MD Lymphocytes (Bld) [#/Vol] 2.69 10*3/uL Normal 1.10-3.70 [facility] Comment on above: Performed By: #### C DP, BMP #### [address] [address] Warehouse Distribution Manager: Alexey Green MD Lymphocytes/100 WBC (Bld) 25 % Normal 24-43 [facility] Comment on above: Performed By: #### C DP, BMP #### [address] [address] Warehouse Distribution Manager: Alexey Green MD MCH (RBC) [Entitic mass] 29.5 pg Normal 25.2-33.5 [facility] Comment on above: Performed By: #### C DP, BMP #### [place] [address] Warehouse Distribution Manager: Alexey Green MD MCHC (RBC) [Mass/Vol] 28.4 g/dL Normal 28.4-34.8 [facility] Comment on above: Performed By: #### C DP, BMP #### [place] [address] Warehouse Distribution Manager: Alexey Green MD MCV (RBC) [Entitic vol] 103.8 fL High 82.6-102.9 [facility] Comment on above: Performed By: #### C DP, BMP #### [place] [address] Warehouse Distribution Manager: Alexey Green MD Monocytes (Bld) [#/Vol] 1.34 10*3/uL High 0.10-1.20 [facility] Comment on above: Performed By: #### C DP, BMP #### [address] [address] Warehouse Distribution Manager: Alexey Green MD Monocytes/100 WBC (Bld) 13 % High 3-12 [facility] Comment on above: Performed By: #### C DP, BMP #### [address] [address] Warehouse Distribution Manager: Alexey Green MD Neutrophil (Seg) 54 % Normal 36-65 [facility] Comment on above: Performed By: #### C DP, BMP #### [address] [address] Warehouse Distribution Manager: Alexey Green MD NRBC Automated 0.3 per 100 WBC High 0.0 [facility] Comment on above: Performed By: #### C DP, BMP #### [address] [address] Warehouse Distribution Manager: Alexey Green MD Platelet mean volume (Bld) [Entitic vol] 11.4 fL Normal 8.1-13.5 [facility] Comment on above: Performed By: #### C DP, BMP #### [address] [address] Warehouse Distribution Manager: Alexey Green MD Platelets (Bld) [#/Vol] 180 10*3/uL Normal 138-453 [facility] Comment on above: Performed By: #### C DP, BMP #### [address] [address] Warehouse Distribution Manager: Alexey Green MD RBC (Bld) [#/Vol] 2.61 10*6/uL Low 3.95-5.11 [facility] Comment on above: Performed By: #### C DP, BMP #### [address] [address] Warehouse Distribution Manager: Alexey Green MD RBC morphology finding Nom (Bld) ANISOCYTOSIS PRESENT Normal [facility] Comment on above: Result Comment: MACR OCYTOSIS PRESENT Performed By: #### C DP, BMP #### [address] [place] [address] Warehouse Distribution Manager: Alexey Green MD WBC (Bld) [#/Vol] 10.6 10*3/uL Normal 3.5-11.3 [facility] Comment on above: Performed By: #### C DP, BMP #### [address] [address] Warehouse Distribution Manager: Alexey Green MD ROYCE Screenon 07-28-2023 ROYCE Screen Negative Normal NEG [facility] Comment on above: Performed By: #### U RNA, URTP, URCRE, UEOS #### [place] [address] Warehouse Distribution Manager: Alxeey Green MD Anti-dsDNA 1.1 IU/mL Normal <10.0 [facility] Comment on above: Result Comment: Reference Range: <10.0 Negative 10.0-15.0 Equivocal >15.0 Positive Performed By: #### U RNA, URTP, URCRE, UEOS #### [place] [address] Warehouse Distribution Manager: Alexey Green MD BROOK Screen 0.1 U/mL Normal <0.7 [facility] Comment on above: Result Comment: Reference Range: <0.7 Negative 0.7-1.0 Equivocal >1.0 Positive BROOK Screen includes U1RNP,RNP70,Sm,Ro(SS-A),La(SS-B),CENP,Scl-70,Elva-1 Performed By: #### U RNA, URTP, URCRE, UEOS #### [place] [address] Warehouse Distribution Manager: Alexey Green MD ROYCE Screen Negative Normal NEG [facility] Comment on above: Performed By: #### U MICAO, UA #### [place] [id number] Warehouse Distribution Manager: Alexey Green MD Anti-dsDNA 1.1 IU/mL Normal <10.0 [facility] Comment on above: Result Comment: Reference Range: <10.0 Negative 10.0-15.0 Equivocal >15.0 Positive Performed By: #### ALYSSA SILVER #### [address] [id number] Warehouse Distribution Manager: Alexey Green MD BROOK Screen 0.1 U/mL Normal <0.7 [facility] Comment on above: Result Comment: Reference Range: <0.7 Negative 0.7-1.0 Equivocal >1.0 Positive BROOK Screen includes U1RNP,RNP70,Sm,Ro(SS-A),La(SS-B),CENP,Scl-70,Elva-1 Performed By: #### U ALYSSA ADAMES #### [place] [address] Warehouse Distribution Manager: Alexey Green MD Basic Metabolic Profon 07-27 Anion gap [Moles/Vol] 9 mmol/L Normal 9-16 [facility] Comment on above: Performed By: #### B MPX #### [place] [address] Warehouse Distribution Manager: Alexey Green MD Calcium [Mass/Vol] 7.8 mg/dL Low 8.6-10.4 [facility] Comment on above: Performed By: #### B MPX #### [place] [address] Warehouse Distribution Manager: Alexey Green MD Chloride [Moles/Vol] 110 mmol/L High 98-107 [facility] Comment on above: Performed By: #### B MPX #### [address] [address] Warehouse Distribution Manager: Alexey Green MD CO2 [Moles/Vol] 18 mmol/L Low 20-31 [facility] Comment on above: Performed By: #### B MPX #### [facility] [address] [place] [address] Warehouse Distribution Manager: Alexey Green MD Creatinine [Mass/Vol] 2.5 mg/dL High 0.50-0.90 [facility] Comment on above: Performed By: #### B MPX #### [facility] [address] [place] [address] Warehouse Distribution Manager: Alexey Green MD GFR/1.73 sq M.predicted among non-blacks MDRD (S/P/Bld) [Vol rate/Area] 18 mL/min/{1.73_m2} Low >60 [facility] Comment on above: Result Comment: These results are not intended for use in patients <18 years of age. eGFR results are calculated without a race factor using the 2020 CKD-EPI equation. Careful clinical correlation is recommended, particularly when comparing to results calculated using previous equations. The CKD-EPI equation is less accurate in patients with extremes of muscle mass, extra-renal metabolism of creatine, excessive creatine ingestion, or following therapy that affects renal tubular secretion. Performed By: #### B MPX #### [facility] [address] [place] [address] Warehouse Distribution Manager: Alexey Green MD Glucose [Mass/Vol] 143 mg/dL High 74-99 [facility] Comment on above: Performed By: #### B MPX #### [facility] [address] [place] [address] Warehouse Distribution Manager: Alexey Green MD Potassium [Moles/Vol] 4.4 mmol/L Normal 3.7-5.3 [facility] Comment on above: Performed By: #### B MPX #### [facility] [address] [place] [address] Warehouse Distribution Manager: Alexey Green MD Sodium [Moles/Vol] 137 mmol/L Normal 136-145 [facility] Comment on above: Performed By: #### B MPX #### [facility] [address] [place] [address] Warehouse Distribution Manager: Alexey Green MD Urea nitrogen [Mass/Vol] 44 mg/dL High 8-23 [facility] Comment on above: Performed By: #### B MPX #### [address] [address] Warehouse Distribution Manager: Alexey Green MD Anion gap [Moles/Vol] 9 mmol/L Normal 9-16 [facility] Comment on above: Performed By: #### U MICAO UA #### [facility] [address] [place] [address] Warehouse Distribution Manager: Alexey Green MD Calcium [Mass/Vol] 7.8 mg/dL Low 8.6-10.4 [facility] Comment on above: Performed By: #### U KURTISO UA #### [facility] [address] [place] [address] Warehouse Distribution Manager: Alexey Green MD Chloride [Moles/Vol] 110 mmol/L High 98-107 [facility] Comment on above: Performed By: #### U KURTISO UA #### [facility] [address] [place] [address] Warehouse Distribution Manager: Alexey Green MD CO2 [Moles/Vol] 18 mmol/L Low 20-31 [facility] Comment on above: Performed By: #### U MICAO, UA #### [facility] [address] [place] [address] Warehouse Distribution Manager: Alexey Green MD Creatinine [Mass/Vol] 2.5 mg/dL High 0.50-0.90 [facility] Comment on above: Performed By: #### U MICAO, UA #### [facility] [address] [place] [address] Warehouse Distribution Manager: Alexey Green MD GFR/1.73 sq M.predicted among non-blacks MDRD (S/P/Bld) [Vol rate/Area] 18 mL/min/{1.73_m2} Low >60 [facility] Comment on above: Result Comment: These results are not intended for use in patients <18 years of age. eGFR results are calculated without a race factor using the 2020 CKD-EPI equation. Careful clinical correlation is recommended, particularly when comparing to results calculated using previous equations. The CKD-EPI equation is less accurate in patients with extremes of muscle mass, extra-renal metabolism of creatine, excessive creatine ingestion, or following therapy that affects renal tubular secretion. Performed By: #### U MICAO, UA #### [facility] [address] [place] [address] Warehouse Distribution Manager: Alexey Green MD Glucose [Mass/Vol] 143 mg/dL High 74-99 [facility] Comment on above: Performed By: #### U MICAO, UA #### [employer] [address] [place] [address] Warehouse Distribution Manager: Alexey Green MD Potassium [Moles/Vol] 4.4 mmol/L Normal 3.7-5.3 [facility] Comment on above: Performed By: #### U MICAO, UA #### [facility] [address] [place] [address] Warehouse Distribution Manager: Alexey Green MD Sodium [Moles/Vol] 137 mmol/L Normal 136-145 [facility] Comment on above: Performed By: #### U MICAO, UA #### [employer] [facility] [address] [place] [address] Warehouse Distribution Manager: Alexey Green MD Urea nitrogen [Mass/Vol] 44 mg/dL High 8-23 [facility] Comment on above: Performed By: #### U MICAO, UA #### [facility] [address] [place] [address] Warehouse Distribution Manager: Alexey Green MD CBC with Diffon 07-28-2023 Abs. Basophil 0.03 k/uL Normal 0.00-0.20 [facility] Comment on above: Performed By: #### U RNA, URTP, URCRE, UEOS #### [address] [address] Warehouse Distribution Manager: Alexey Green MD Abs.Imm.Granulocyte 0.06 k/uL Normal 0.00-0.30 [facility] Comment on above: Performed By: #### U RNA, URTP, URCRE, UEOS #### [address] [address] Warehouse Distribution Manager: Alexey Green MD Abs.Neutrophil (Seg) 5.08 k/uL Normal 1.50-8.10 [facility] Comment on above: Performed By: #### U RNA, URTP, URCRE, UEOS #### [address] [address] Warehouse Distribution Manager: Alexey Green MD Basophils/100 WBC (Bld) 0 % Normal 0-2 [facility] Comment on above: Performed By: #### U RNA, URTP, URCRE, UEOS #### [address] [address] Warehouse Distribution Manager: Alexey Green MD Eosinophils (Bld) [#/Vol] 0.65 10*3/uL High 0.00-0.44 [facility] Comment on above: Performed By: #### U RNA, URTP, URCRE, UEOS #### [address] [address] Warehouse Distribution Manager: Alexey Green MD Eosinophils/100 WBC (Bld) 7 % High 1-4 [facility] Comment on above: Performed By: #### U RNA, URTP, URCRE, UEOS #### [address] [address] Warehouse Distribution Manager: Alexey Green MD Erythrocyte distribution width (RBC) [Ratio] 18.1 % High 11.8-14.4 [facility] Comment on above: Performed By: #### U RNA, URTP, URCRE, UEOS #### [address] [address] Warehouse Distribution Manager: Alexey Green MD Hematocrit (Bld) [Volume fraction] 25.1 % Low 36.3-47.1 [facility] Comment on above: Performed By: #### U RNA, URTP, URCRE, UEOS #### [address] [address] Warehouse Distribution Manager: Alexey Green MD Hemoglobin (Bld) [Mass/Vol] 7.2 g/dL Low 11.9-15.1 [facility] Comment on above: Performed By: #### U RNA, URTP, URCRE, UEOS #### [address] [address] Warehouse Distribution Manager: Alexey Green MD Immature granulocytes/100 WBC (Bld) 1 % High 0 [facility] Comment on above: Performed By: #### U RNA, URTP, URCRE, UEOS #### [address] [address] Warehouse Distribution Manager: Alexey Green MD Lymphocytes (Bld) [#/Vol] 2.69 10*3/uL Normal 1.10-3.70 [facility] Comment on above: Performed By: #### U RNA, URTP, URCRE, UEOS #### [address] [address] Warehouse Distribution Manager: Alexey Green MD Lymphocytes/100 WBC (Bld) 28 % Normal 24-43 [facility] Comment on above: Performed By: #### U RNA, URTP, URCRE, UEOS #### [address] [address] Warehouse Distribution Manager: Alexey Green MD MCH (RBC) [Entitic mass] 29.3 pg Normal 25.2-33.5 [facility] Comment on above: Performed By: #### U RNA, URTP, URCRE, UEOS #### [address] [address] Warehouse Distribution Manager: Alexey Green MD MCHC (RBC) [Mass/Vol] 28.7 g/dL Normal 28.4-34.8 [facility] Comment on above: Performed By: #### U RNA, URTP, URCRE, UEOS #### [address] [address] Warehouse Distribution Manager: Alexey Green MD MCV (RBC) [Entitic vol] 102.0 fL Normal 82.6-102.9 [facility] Comment on above: Performed By: #### U RNA, URTP, URCRE, UEOS #### [address] [address] Warehouse Distribution Manager: Alexey Green MD Monocytes (Bld) [#/Vol] 1.10 10*3/uL Normal 0.10-1.20 [facility] Comment on above: Performed By: #### U RNA, URTP, URCRE, UEOS #### [address] [address] Warehouse Distribution Manager: Alexey Green MD Monocytes/100 WBC (Bld) 11 % Normal 3-12 [facility] Comment on above: Performed By: #### U RNA, URTP, URCRE, UEOS #### [address] [address] Warehouse Distribution Manager: Alexey Green MD Neutrophil (Seg) 53 % Normal 36-65 [facility] Comment on above: Performed By: #### U RNA, URTP, URCRE, UEOS #### [address] [address] Warehouse Distribution Manager: Alexey Green MD NRBC Automated 0.0 per 100 WBC Normal 0.0 [facility] Comment on above: Performed By: #### U RNA, URTP, URCRE, UEOS #### [address] [address] Warehouse Distribution Manager: Alexey Green MD Platelet mean volume (Bld) [Entitic vol] 11.7 fL Normal 8.1-13.5 [facility] Comment on above: Performed By: #### U RNA, URTP, URCRE, UEOS #### [address] [address] Warehouse Distribution Manager: Alexey Green MD Platelets (Bld) [#/Vol] 161 10*3/uL Normal 138-453 [facility] Comment on above: Performed By: #### U RNA, URTP, URCRE, UEOS #### [address] [address] Warehouse Distribution Manager: Alexey Green MD RBC (Bld) [#/Vol] 2.46 10*6/uL Low 3.95-5.11 [facility] Comment on above: Performed By: #### U RNA, URTP, URCRE, UEOS #### [address] [address] Warehouse Distribution Manager: Alexey Green MD RBC morphology finding Nom (Bld) ANISOCYTOSIS PRESENT Normal [facility] Comment on above: Performed By: #### U RNA, URTP, URCRE, UEOS #### [address] [address] Warehouse Distribution Manager: Alexey Green MD WBC (Bld) [#/Vol] 9.6 10*3/uL Normal 3.5-11.3 [facility] Comment on above: Performed By: #### U RNA, URTP, URCRE, UEOS #### [address] [address] Warehouse Distribution Manager: Alexey Green MD Abs. Basophil 0.03 k/uL Normal 0.00-0.20 [facility] Comment on above: Performed By: #### U ZACARIAS UA #### [facility] [address] [place] [address] Warehouse Distribution Manager: Alexey Green MD Abs.Imm.Granulocyte 0.06 k/uL Normal 0.00-0.30 [facility] Comment on above: Performed By: #### Tanja ADAMES UA #### [facility] [address] [place] [address] Warehouse Distribution Manager: Alexey Green MD Abs.Neutrophil (Seg) 5.08 k/uL Normal 1.50-8.10 [facility] Comment on above: Performed By: #### Tanja ADAMES UA #### [address] [address] Warehouse Distribution Manager: Alexey Green MD Basophils/100 WBC (Bld) 0 % Normal 0-2 [facility] Comment on above: Performed By: #### Tanja ADAMES UA #### [facility] [address] [place] [address] Warehouse Distribution Manager: Alexey Green MD Eosinophils (Bld) [#/Vol] 0.65 10*3/uL High 0.00-0.44 [facility] Comment on above: Performed By: #### U ZACARIAS UA #### [facility] [employer] [address] [place] [address] Warehouse Distribution Manager: Alexey Green MD Eosinophils/100 WBC (Bld) 7 % High 1-4 [facility] Comment on above: Performed By: #### U ZACARIAS UA #### [facility] [address] [place] [address] Warehouse Distribution Manager: Alexey Green MD Erythrocyte distribution width (RBC) [Ratio] 18.1 % High 11.8-14.4 [facility] Comment on above: Performed By: #### U KURTISO UA #### [facility] [employer] [address] [place] [address] Warehouse Distribution Manager: Alexey Green MD Hematocrit (Bld) [Volume fraction] 25.1 % Low 36.3-47.1 [facility] Comment on above: Performed By: #### U ZACARIAS UA #### [facility] [employer] [address] [place] [address] Warehouse Distribution Manager: Alexey Green MD Hemoglobin (Bld) [Mass/Vol] 7.2 g/dL Low 11.9-15.1 [facility] Comment on above: Performed By: #### U KURTISO, UA #### [facility] [address] [place] [address]92 Warehouse Distribution Manager: Alexey Green MD Immature granulocytes/100 WBC (Bld) 1 % High 0 [facility] Comment on above: Performed By: #### U ZACARIAS UA #### [facility] [address] [place] [address]56 Warehouse Distribution Manager: Alexey Green MD Lymphocytes (Bld) [#/Vol] 2.69 10*3/uL Normal 1.10-3.70 [facility] Comment on above: Performed By: #### U ZACARIAS, UA #### [facility] [address] [place] [address] Warehouse Distribution Manager: Alexey Green MD Lymphocytes/100 WBC (Bld) 28 % Normal 24-43 [facility] Comment on above: Performed By: #### U MICAO, UA #### [facility] [address] [place] [address] Warehouse Distribution Manager: Alexey Green MD MCH (RBC) [Entitic mass] 29.3 pg Normal 25.2-33.5 [facility] Comment on above: Performed By: #### U MICAO, UA #### [address] [address] Warehouse Distribution Manager: Alexey Green MD MCHC (RBC) [Mass/Vol] 28.7 g/dL Normal 28.4-34.8 [facility] Comment on above: Performed By: #### U MICAO, UA #### [address] [address] Warehouse Distribution Manager: Alexey Green MD MCV (RBC) [Entitic vol] 102.0 fL Normal 82.6-102.9 [facility] Comment on above: Performed By: #### U KURTISO, UA #### [address] [address] Warehouse Distribution Manager: Alexey Green MD Monocytes (Bld) [#/Vol] 1.10 10*3/uL Normal 0.10-1.20 [facility] Comment on above: Performed By: #### U MICAO, UA #### [address] [address] Warehouse Distribution Manager: Alexey Green MD Monocytes/100 WBC (Bld) 11 % Normal 3-12 [facility] Comment on above: Performed By: #### U MICAO, UA #### [facility] [address] [place] [address] Warehouse Distribution Manager: Alexey Green MD Neutrophil (Seg) 53 % Normal 36-65 [facility] Comment on above: Performed By: #### U MICAO, UA #### [facility] [address] [place] [address] Warehouse Distribution Manager: Alexey Green MD NRBC Automated 0.0 per 100 WBC Normal 0.0 [facility] Comment on above: Performed By: #### U ZACARIAS UA #### [address] [address] Warehouse Distribution Manager: Alexey Green MD Platelet mean volume (Bld) [Entitic vol] 11.7 fL Normal 8.1-13.5 [facility] Comment on above: Performed By: #### U ZACARIAS UA #### [address] [address] Warehouse Distribution Manager: Alexey Green MD Platelets (Bld) [#/Vol] 161 10*3/uL Normal 138-453 [facility] Comment on above: Performed By: #### Tanja ADAMES UA #### [address] [address] Warehouse Distribution Manager: Alexey Green MD RBC (Bld) [#/Vol] 2.46 10*6/uL Low 3.95-5.11 [facility] Comment on above: Performed By: #### Tanja ADAMES UA #### [address] [address] Warehouse Distribution Manager: Alexey Green MD RBC morphology finding Nom (Bld) ANISOCYTOSIS PRESENT Normal [facility] Comment on above: Performed By: #### Tanja ADAMES UA #### [address] [address] Warehouse Distribution Manager: Alexey Green MD WBC (Bld) [#/Vol] 9.6 10*3/uL Normal 3.5-11.3 [facility] Comment on above: Performed By: #### U ZACARIAS UA #### [address] [address] Warehouse Distribution Manager: Alexey Green MD Basic Metabolic Profon 07-26 Anion gap [Moles/Vol] 9 mmol/L Normal 9-16 [facility] Comment on above: Performed By: #### U RNA, URTP, URCRE, UEOS #### [address] [address] Warehouse Distribution Manager: Alexey Green MD Calcium [Mass/Vol] 7.5 mg/dL Low 8.6-10.4 [facility] Comment on above: Performed By: #### U RNA, URTP, URCRE, UEOS #### [facility] [address] [place] [address]37 Warehouse Distribution Manager: Alexey Green MD Chloride [Moles/Vol] 110 mmol/L High 98-107 [facility] Comment on above: Performed By: #### U RNA, URTP, URCRE, UEOS #### [address] [address] Warehouse Distribution Manager: Alexey Green MD CO2 [Moles/Vol] 17 mmol/L Low 20-31 [facility] Comment on above: Performed By: #### U RNA, URTP, URCRE, UEOS #### [facility] [address] [place] [address] Warehouse Distribution Manager: Alexey Green MD Creatinine [Mass/Vol] 2.6 mg/dL High 0.50-0.90 [facility] Comment on above: Performed By: #### U RNA, URTP, URCRE, UEOS #### [facility] [address] [place] [address]27 Warehouse Distribution Manager: Alexey Green MD GFR/1.73 sq M.predicted among non-blacks MDRD (S/P/Bld) [Vol rate/Area] 17 mL/min/{1.73_m2} Low >60 [facility] Comment on above: Result Comment: These results are not intended for use in patients <18 years of age. eGFR results are calculated without a race factor using the 2020 CKD-EPI equation. Careful clinical correlation is recommended, particularly when comparing to results calculated using previous equations. The CKD-EPI equation is less accurate in patients with extremes of muscle mass, extra-renal metabolism of creatine, excessive creatine ingestion, or following therapy that affects renal tubular secretion. Performed By: #### U RNA, URTP, URCRE, UEOS #### [address] [address] Warehouse Distribution Manager: Alexey Green MD Glucose [Mass/Vol] 90 mg/dL Normal 74-99 [facility] Comment on above: Performed By: #### U RNA, URTP, URCRE, UEOS #### [address] [address] Warehouse Distribution Manager: Alexey Green MD Potassium [Moles/Vol] 4.3 mmol/L Normal 3.7-5.3 [facility] Comment on above: Performed By: #### U RNA, URTP, URCRE, UEOS #### [address] [address] Warehouse Distribution Manager: Alexey Green MD Sodium [Moles/Vol] 136 mmol/L Normal 136-145 [facility] Comment on above: Performed By: #### U RNA, URTP, URCRE, UEOS #### [address] [address] Warehouse Distribution Manager: Alexey Green MD Urea nitrogen [Mass/Vol] 44 mg/dL High 8-23 [facility] Comment on above: Performed By: #### U RNA, URTP, URCRE, UEOS #### [address] [address] Warehouse Distribution Manager: Alexey Green MD Anion gap [Moles/Vol] 9 mmol/L Normal 9-16 [facility] Comment on above: Performed By: #### U MICAO, UA #### [facility] [address] [place] [address] Warehouse Distribution Manager: Alexey Green MD Calcium [Mass/Vol] 7.5 mg/dL Low 8.6-10.4 [facility] Comment on above: Performed By: #### U KURTISO, UA #### [facility] [address] [place] [address] Warehouse Distribution Manager: Alexey Green MD Chloride [Moles/Vol] 110 mmol/L High 98-107 [facility] Comment on above: Performed By: #### U MICAO, UA #### [facility] [address] [place] [address]65 Warehouse Distribution Manager: Alexey Green MD CO2 [Moles/Vol] 17 mmol/L Low 20-31 [facility] Comment on above: Performed By: #### U ZACARIAS, UA #### [address] [address] Warehouse Distribution Manager: Alexey Green MD Creatinine [Mass/Vol] 2.6 mg/dL High 0.50-0.90 [facility] Comment on above: Performed By: #### U ZACARIAS UA #### [address] [address] Warehouse Distribution Manager: Alexey Green MD GFR/1.73 sq M.predicted among non-blacks MDRD (S/P/Bld) [Vol rate/Area] 17 mL/min/{1.73_m2} Low >60 [facility] Comment on above: Result Comment: These results are not intended for use in patients <18 years of age. eGFR results are calculated without a race factor using the 2020 CKD-EPI equation. Careful clinical correlation is recommended, particularly when comparing to results calculated using previous equations. The CKD-EPI equation is less accurate in patients with extremes of muscle mass, extra-renal metabolism of creatine, excessive creatine ingestion, or following therapy that affects renal tubular secretion. Performed By: #### U KURTISO UA #### [facility] [address] [place] [address] Warehouse Distribution Manager: Alexey Green MD Glucose [Mass/Vol] 90 mg/dL Normal 74-99 [facility] Comment on above: Performed By: #### U ZACARIAS UA #### [facility] [address] [place] [address] Warehouse Distribution Manager: Alexey Green MD Potassium [Moles/Vol] 4.3 mmol/L Normal 3.7-5.3 [facility] Comment on above: Performed By: #### U ZACARIAS UA #### [facility] [address] [place] [address] Warehouse Distribution Manager: Aleexy Green MD Sodium [Moles/Vol] 136 mmol/L Normal 136-145 [facility] Comment on above: Performed By: #### Tanja ADAMES UA #### [address] [address] Warehouse Distribution Manager: Alexey Green MD Urea nitrogen [Mass/Vol] 44 mg/dL High 8-23 [facility] Comment on above: Performed By: #### Tanja ADAMES UA #### [facility] [address] [place] [address] Warehouse Distribution Manager: Alexey Green MD CBC with Diffon 07-27-2023 Abs. Basophil 0.00 k/uL Normal 0.00-0.20 [facility] Comment on above: Performed By: #### U RNA, URTP, URCRE, UEOS #### [facility] [address] [place] [address] Warehouse Distribution Manager: Alexey Green MD Abs.Imm.Granulocyte 0.10 k/uL Normal 0.00-0.30 [facility] Comment on above: Performed By: #### U RNA, URTP, URCRE, UEOS #### [facility] [address] [place] [address] Warehouse Distribution Manager: Alexey Green MD Abs.Neutrophil (Seg) 5.10 k/uL Normal 1.50-8.10 [facility] Comment on above: Performed By: #### U RNA, URTP, URCRE, UEOS #### [address] [address] Warehouse Distribution Manager: Alexey Green MD Basophils/100 WBC (Bld) 0 % Normal 0-2 [facility] Comment on above: Performed By: #### U RNA, URTP, URCRE, UEOS #### [address] [address] Warehouse Distribution Manager: Alexey Green MD Eosinophils (Bld) [#/Vol] 0.70 10*3/uL High 0.00-0.44 [facility] Comment on above: Performed By: #### U RNA, URTP, URCRE, UEOS #### [address] [address] Warehouse Distribution Manager: Alexey Green MD Eosinophils/100 WBC (Bld) 7 % High 1-4 [facility] Comment on above: Performed By: #### U RNA, URTP, URCRE, UEOS #### [address] [address] Warehouse Distribution Manager: Alexey Green MD Immature granulocytes/100 WBC (Bld) 1 % High 0 [facility] Comment on above: Performed By: #### U RNA, URTP, URCRE, UEOS #### [address] [address] Warehouse Distribution Manager: Alexey Green MD Lymphocytes (Bld) [#/Vol] 3.20 10*3/uL Normal 1.10-3.70 [facility] Comment on above: Performed By: #### U RNA, URTP, URCRE, UEOS #### [address] [address] Warehouse Distribution Manager: Alexey Geren MD Lymphocytes/100 WBC (Bld) 32 % Normal 24-43 [facility] Comment on above: Performed By: #### U RNA, URTP, URCRE, UEOS #### [address] [address] Warehouse Distribution Manager: Alexey Green MD Monocytes (Bld) [#/Vol] 0.90 10*3/uL Normal 0.10-1.20 [facility] Comment on above: Performed By: #### U RNA, URTP, URCRE, UEOS #### [address] [address] Warehouse Distribution Manager: Alexey Green MD Monocytes/100 WBC (Bld) 9 % Normal 3-12 [facility] Comment on above: Performed By: #### U RNA, URTP, URCRE, UEOS #### [address] [address] Warehouse Distribution Manager: Alexey Green MD Morphology Tito (Bld) [Interp] ANISOCYTOSIS PRESENT Normal [facility] Comment on above: Result Comment: MACR OCYTOSIS PRESENT Performed By: #### U RNA, URTP, URCRE, UEOS #### [address] [address] Warehouse Distribution Manager: Alexey Green MD Neutrophil (Seg) 51 % Normal 36-65 [facility] Comment on above: Performed By: #### U RNA, URTP, URCRE, UEOS #### [address] [address] Warehouse Distribution Manager: Alexey Green MD Erythrocyte distribution width (RBC) [Ratio] 18.8 % High 11.8-14.4 [facility] Comment on above: Performed By: #### U RNA, URTP, URCRE, UEOS #### [address] [id number] Warehouse Distribution Manager: Alexey Green MD Hematocrit (Bld) [Volume fraction] 28.5 % Low 36.3-47.1 [facility] Comment on above: Performed By: #### U RNA, URTP, URCRE, UEOS #### [address] [id number] Warehouse Distribution Manager: Alexey Green MD Hemoglobin (Bld) [Mass/Vol] 7.7 g/dL Low 11.9-15.1 [facility] Comment on above: Performed By: #### U RNA, URTP, URCRE, UEOS #### [address] [address] Warehouse Distribution Manager: Alexey Green MD MCH (RBC) [Entitic mass] 29.5 pg Normal 25.2-33.5 [facility] Comment on above: Performed By: #### U RNA, URTP, URCRE, UEOS #### [address] [address] Warehouse Distribution Manager: Alexey Green MD MCHC (RBC) [Mass/Vol] 27.0 g/dL Low 28.4-34.8 [facility] Comment on above: Performed By: #### U RNA, URTP, URCRE, UEOS #### [address] [address] Warehouse Distribution Manager: Alexey Green MD MCV (RBC) [Entitic vol] 109.2 fL High 82.6-102.9 [facility] Comment on above: Performed By: #### U RNA, URTP, URCRE, UEOS #### [address] [address] Warehouse Distribution Manager: Alexey Green MD NRBC Automated 0.2 per 100 WBC High 0.0 [facility] Comment on above: Performed By: #### U RNA, URTP, URCRE, UEOS #### [address] [address] Warehouse Distribution Manager: Alexey Green MD Platelet mean volume (Bld) [Entitic vol] 11.4 fL Normal 8.1-13.5 [facility] Comment on above: Performed By: #### U RNA, URTP, URCRE, UEOS #### [address] [address] Warehouse Distribution Manager: Alexey Green MD Platelets (Bld) [#/Vol] 135 10*3/uL Low 138-453 [facility] Comment on above: Performed By: #### U RNA, URTP, URCRE, UEOS #### [address] [address] Warehouse Distribution Manager: Alexey Green MD RBC (Bld) [#/Vol] 2.61 10*6/uL Low 3.95-5.11 [facility] Comment on above: Performed By: #### U RNA, URTP, URCRE, UEOS #### [address] [address] Warehouse Distribution Manager: Alexey Green MD WBC (Bld) [#/Vol] 10.0 10*3/uL Normal 3.5-11.3 [facility] Comment on above: Performed By: #### U RNA, URTP, URCRE, UEOS #### [address] [address] Warehouse Distribution Manager: Alexey Green MD Abs. Basophil 0.00 k/uL Normal 0.00-0.20 [facility] Comment on above: Performed By: #### U MICAO, UA #### [address] [address] Warehouse Distribution Manager: Alexey Green MD Abs.Imm.Granulocyte 0.10 k/uL Normal 0.00-0.30 [facility] Comment on above: Performed By: #### ALYSSA SILVER #### [address] [address] Warehouse Distribution Manager: Alexey Green MD Abs.Neutrophil (Seg) 5.10 k/uL Normal 1.50-8.10 [facility] Comment on above: Performed By: #### Tanja ADAMES UA #### [address] [address] Warehouse Distribution Manager: Alexey Green MD Basophils/100 WBC (Bld) 0 % Normal 0-2 [facility] Comment on above: Performed By: #### Tanja ADAMES UA #### [address] [address] Warehouse Distribution Manager: Alexey Green MD Eosinophils (Bld) [#/Vol] 0.70 10*3/uL High 0.00-0.44 [facility] Comment on above: Performed By: #### Tanja ADAMES UA #### [address] [address] Warehouse Distribution Manager: Alexey Green MD Eosinophils/100 WBC (Bld) 7 % High 1-4 [facility] Comment on above: Performed By: #### Tanja ADAMES UA #### [address] [address] Warehouse Distribution Manager: Alexey Green MD Immature granulocytes/100 WBC (Bld) 1 % High 0 [facility] Comment on above: Performed By: #### Tanja ADAMES UA #### [address] [address] Warehouse Distribution Manager: Alexey Green MD Lymphocytes (Bld) [#/Vol] 3.20 10*3/uL Normal 1.10-3.70 [facility] Comment on above: Performed By: #### Tanja KURTISO, UA #### [facility] [address] [place] [address] Warehouse Distribution Manager: Alexey Green MD Lymphocytes/100 WBC (Bld) 32 % Normal 24-43 [facility] Comment on above: Performed By: #### U MICAO, UA #### [address] [address] Warehouse Distribution Manager: Alexey Green MD Monocytes (Bld) [#/Vol] 0.90 10*3/uL Normal 0.10-1.20 [facility] Comment on above: Performed By: #### U ZACARIAS UA #### [address] [address] Warehouse Distribution Manager: Alexey Green MD Monocytes/100 WBC (Bld) 9 % Normal 3-12 [facility] Comment on above: Performed By: #### U ZACARIAS UA #### [address] [address] Warehouse Distribution Manager: Alexey Green MD Morphology Tito (Bld) [Interp] ANISOCYTOSIS PRESENT Normal [facility] Comment on above: Result Comment: MACR OCYTOSIS PRESENT Performed By: #### U ZACARIAS UA #### [address] [address] Warehouse Distribution Manager: Alexey Green MD Neutrophil (Seg) 51 % Normal 36-65 [facility] Comment on above: Performed By: #### U KURTISO, UA #### [address] [address] Warehouse Distribution Manager: Alexey Green MD Erythrocyte distribution width (RBC) [Ratio] 18.8 % High 11.8-14.4 [facility] Comment on above: Performed By: #### U KURTISO UA #### [facility] [address] [place] [address] [phone] Warehouse Distribution Manager: Alexey Green MD Hematocrit (Bld) [Volume fraction] 28.5 % Low 36.3-47.1 [facility] Comment on above: Performed By: #### U ZACARIAS UA #### [facility] [address] [place] [address] Warehouse Distribution Manager: Alexey Green MD Hemoglobin (Bld) [Mass/Vol] 7.7 g/dL Low 11.9-15.1 [facility] Comment on above: Performed By: #### U ZACARIAS UA #### [facility] [address] [place] [address] Warehouse Distribution Manager: Alexey Green MD MCH (RBC) [Entitic mass] 29.5 pg Normal 25.2-33.5 [facility] Comment on above: Performed By: #### Tanja ADAMES UA #### [facility] [address] [place] [address] Warehouse Distribution Manager: Alexey Green MD MCHC (RBC) [Mass/Vol] 27.0 g/dL Low 28.4-34.8 [facility] Comment on above: Performed By: #### U ZACARIAS UA #### [facility] [address] [place] [address] Warehouse Distribution Manager: Alexey Green MD MCV (RBC) [Entitic vol] 109.2 fL High 82.6-102.9 [facility] Comment on above: Performed By: #### U ZACARIAS UA #### [facility] [address] [place] [address] Warehouse Distribution Manager: Alexey Green MD NRBC Automated 0.2 per 100 WBC High 0.0 [facility] Comment on above: Performed By: #### U ZACARIAS UA #### [facility] [address] [place] [address] [phone] Warehouse Distribution Manager: Alexey Green MD Platelet mean volume (Bld) [Entitic vol] 11.4 fL Normal 8.1-13.5 [facility] Comment on above: Performed By: #### U ZACARIAS UA #### [facility] [address] [place] [address] Warehouse Distribution Manager: Alexey Green MD Platelets (Bld) [#/Vol] 135 10*3/uL Low 138-453 [facility] Comment on above: Performed By: #### U ZACARIAS UA #### [facility] [address] [place] [address] Warehouse Distribution Manager: Alexey Green MD RBC (Bld) [#/Vol] 2.61 10*6/uL Low 3.95-5.11 [facility] Comment on above: Performed By: #### Tanja ADAMES UA #### [facility] [address] [place] [address] Warehouse Distribution Manager: Alexey Green MD WBC (Bld) [#/Vol] 10.0 10*3/uL Normal 3.5-11.3 [facility] Comment on above: Performed By: #### Tanja ADAMES UA #### [facility] [address] [place] [address] Warehouse Distribution Manager: Alexey Green MD Phosphorus, Inorg.on 024 Phosphorus, Inorg. 4.4 mg/dL Normal 2.5-4.5 [facility] Comment on above: Performed By: #### U RNA, URTP, URCRE, UEOS #### [facility] [address] [place] [address] Warehouse Distribution Manager: Alexey Green MD Phosphorus, Inorg. 4.4 mg/dL Normal 2.5-4.5 [facility] Comment on above: Performed By: #### U ZACARIAS UA #### [facility] [address] [place] [address] [phone] Warehouse Distribution Manager: Alexey Green MD Prot. Electroph, Blon 2023 Pathologist Review: ELECTRONICALLY ANNA CARRILLO M.D. Normal [facility] Comment on above: Performed By: #### U RNA, URTP, URCRE, UEOS #### [address] [address] Warehouse Distribution Manager: Alexey Green MD Albumin [Mass/Vol] 3.1 g/dL Low 3.2-5.2 [facility] Comment on above: Performed By: #### U RNA, URTP, URCRE, UEOS #### [address] [address] Warehouse Distribution Manager: Alexey Green MD Albumin, % 55 % Normal 45-65 [facility] [facility] Comment on above: Performed By: #### U RNA, URTP, URCRE, UEOS #### [address] [address] Warehouse Distribution Manager: Alexey Green MD Iuwsa-3-scdozemet 0.3 g/dL Normal 0.1-0.[address] [facility] Comment on above: Performed By: #### U RNA, URTP, URCRE, UEOS #### [address] [address] Warehouse Distribution Manager: Alexey Green MD Lzayk-6-dfupxycaw,% 4 % Normal 3-6 [facility] Comment on above: Performed By: #### U RNA, URTP, URCRE, UEOS #### [address] [address] Warehouse Distribution Manager: Alexey Green MD Ppyrw-7-xlcvikwuc 0.8 g/dL Normal 0.5-0.[address] [facility] Comment on above: Performed By: #### U RNA, URTP, URCRE, UEOS #### [address] [address] Warehouse Distribution Manager: Alexey Green MD Cgemi-6-ofokhhrdt,% 15 % High 6-13 [facility] Comment on above: Performed By: #### U RNA, URTP, URCRE, UEOS #### [address] [address] Warehouse Distribution Manager: Alexey Green MD Beta-globulins 0.8 g/dL Normal 0.5-1.1 [facility] Comment on above: Performed By: #### U RNA, URTP, URCRE, UEOS #### [address] [address] Warehouse Distribution Manager: Alexey Green MD Beta-globulins,% 14 % Normal 11-19 [facility] Comment on above: Performed By: #### U RNA, URTP, URCRE, UEOS #### [address] [address] Warehouse Distribution Manager: Alexey Green MD Gamma-globulins 0.7 g/dL Normal 0.5-1.5 [facility] Comment on above: Performed By: #### U RNA, URTP, URCRE, UEOS #### [address] [address] Warehouse Distribution Manager: Alexey Green MD Gamma-globulins,% 13 % Normal 9-[address] [facility] Comment on above: Performed By: #### U RNA, URTP, URCRE, UEOS #### [address] [address] Warehouse Distribution Manager: Alexey Green MD Prot. Elect-Interp Albumin is decreased . May be observed with hepatic diseases, proteinuria, Normal [facility] Comment on above: Result Comment: maln utrition, acute phase response, and hemodilution. Performed By: #### U RNA, URTP, URCRE, UEOS #### [address] [address] Warehouse Distribution Manager: Alexey Green MD Total Prot. Sum 5.7 g/dL Low 6.3-8.2 [facility] Comment on above: Performed By: #### U RNA, URTP, URCRE, UEOS #### [address] [address] Warehouse Distribution Manager: Alexey Green MD Total Prot. Sum,% 101 % Normal 98-[address] [facility] Comment on above: Performed By: #### U RNA, URTP, URCRE, UEOS #### [address] [address] Warehouse Distribution Manager: Alexey Green MD Pathologist Review: ELECTRONICALLY ANNA CARRILLO M.D. Normal [facility] Comment on above: Performed By: #### U MICAO, UA #### [address] [address] Warehouse Distribution Manager: Alexey Green MD Albumin [Mass/Vol] 3.1 g/dL Low 3.2-5.2 [facility] Comment on above: Performed By: #### U MICAO, UA #### [address] [address] Warehouse Distribution Manager: Alexey Green MD Albumin, % 55 % Normal 45-65 [facility] Comment on above: Performed By: #### U MICAO, UA #### [address] [address] Warehouse Distribution Manager: Alexey Green MD Hzwrh-3-qxhjrefgm 0.3 g/dL Normal 0.1-0.[address] [facility] Comment on above: Performed By: #### U MICAO, UA #### [address] [address] Warehouse Distribution Manager: Alexey Green MD Agkqh-4-egitfpvvz,% 4 % Normal 3-6 [facility] Comment on above: Performed By: #### U MICAO, UA #### [facility] [address] [place] [address] Warehouse Distribution Manager: Alexey Green MD Qtojv-7-zpdcemflv 0.8 g/dL Normal 0.5-0.[address] [facility] Comment on above: Performed By: #### U MICAO, UA #### [facility] [address] [place] [address] Warehouse Distribution Manager: Alexey Green MD Httwt-4-cdmokcvzj,% 15 % High 6-13 [facility] Comment on above: Performed By: #### U MICAO, UA #### [facility] [address] [place] [address] Warehouse Distribution Manager: Alexey Green MD Beta-globulins 0.8 g/dL Normal 0.5-1.1 [facility] Comment on above: Performed By: #### U MICAO, UA #### [facility] [address] [place] [address] Warehouse Distribution Manager: Alexey Green MD Beta-globulins,% 14 % Normal 11-19 [facility] Comment on above: Performed By: #### U MICAO, UA #### [facility] [address] [place] [address] Warehouse Distribution Manager: Alexey Green MD Gamma-globulins 0.7 g/dL Normal 0.5-1.5 [facility] Comment on above: Performed By: #### U MICAO, UA #### [facility] [address] [place] [address] Warehouse Distribution Manager: Alexey Green MD Gamma-globulins,% 13 % Normal 9-[address] [facility] Comment on above: Performed By: #### U MICAO, UA #### [facility] [address] [place] [address] Warehouse Distribution Manager: Alexey Green MD Prot. Elect-Interp Albumin is decreased . May be observed with hepatic diseases, proteinuria, Normal [facility] Comment on above: Result Comment: maln utrition, acute phase response, and hemodilution. Performed By: #### U MICAO, UA #### [facility] [address] [place] [address] Warehouse Distribution Manager: Alexey Green MD Total Prot. Sum 5.7 g/dL Low 6.3-8.2 [facility] Comment on above: Performed By: #### U MICAO, UA #### [facility] [address] [place] [address] Warehouse Distribution Manager: Alexey Green MD Total Prot. Sum,% 101 % Normal 98-[address] [facility] Comment on above: Performed By: #### U MICAO, UA #### [facility] [address] [place] [address] Warehouse Distribution Manager: Alexey Green MD US RENAL COMPLETEon 07-27-19 US RENAL COMPLETE EXAMINATION: RETROPERITONEAL ULTRASOUND OF THE KIDNEYS AND URINARY BLADDER 07/26/2023 COMPARISON: None HISTORY: ORDERING SYSTEM PROVIDED HISTORY: increased creatinine TECHNOLOGIST PROVIDED HISTORY: increased creatinine FINDINGS: Kidneys: The right kidney measures 8.0 cm in length and the left kidney measures 9.4 cm in length. Atrophic appearance of the right kidney with multiple small cysts. There is multifocal areas of marked cortical thickening of the right kidney. Suboptimal evaluation of the left kidney, which also demonstrates cortical thinning. Bladder: A [place] catheter is present within the decompressed bladder. IMPRESSION: 1. Atrophic appearance of the right kidney with multifocal areas of marked cortical thinning. 2. Suboptimal evaluation of the left kidney. 3. [place] catheter within the decompressed bladder. Interpreted by: Edmundo Morton MD Signed by: Edmundo Morton MD 07/26/23 Final result Normal [facility] Basic Metabolic Profon 07-25 Anion gap [Moles/Vol] 9 mmol/L Normal 9-16 [facility] Comment on above: Performed By: #### U RNA, URTP, URCRE, UEOS #### [address] [address] Warehouse Distribution Manager: Alexey Green MD Calcium [Mass/Vol] 7.7 mg/dL Low 8.6-10.4 [facility] Comment on above: Performed By: #### U RNA, URTP, URCRE, UEOS #### [address] [address] Warehouse Distribution Manager: Alexey Green MD Chloride [Moles/Vol] 108 mmol/L High 98-107 [facility] Comment on above: Performed By: #### U RNA, URTP, URCRE, UEOS #### [facility] [address] [place] [address] Warehouse Distribution Manager: Alexey Green MD CO2 [Moles/Vol] 20 mmol/L Normal 20-31 [facility] Comment on above: Performed By: #### U RNA, URTP, URCRE, UEOS #### [address] [address] Warehouse Distribution Manager: Alexey Green MD Creatinine [Mass/Vol] 2.7 mg/dL High 0.50-0.90 [facility] Comment on above: Performed By: #### U RNA, URTP, URCRE, UEOS #### [address] [address] Warehouse Distribution Manager: Alexey Green MD GFR/1.73 sq M.predicted among non-blacks MDRD (S/P/Bld) [Vol rate/Area] 17 mL/min/{1.73_m2} Low >60 [facility] Comment on above: Result Comment: These results are not intended for use in patients <18 years of age. eGFR results are calculated without a race factor using the 2020 CKD-EPI equation. Careful clinical correlation is recommended, particularly when comparing to results calculated using previous equations. The CKD-EPI equation is less accurate in patients with extremes of muscle mass, extra-renal metabolism of creatine, excessive creatine ingestion, or following therapy that affects renal tubular secretion. Performed By: #### U RNA, URTP, URCRE, UEOS #### [facility] [address] [place] [address] Warehouse Distribution Manager: Alexey Green MD Glucose [Mass/Vol] 132 mg/dL High 74-99 [facility] Comment on above: Performed By: #### U RNA, URTP, URCRE, UEOS #### [address] [address] Warehouse Distribution Manager: Alexey Green MD Potassium [Moles/Vol] 4.9 mmol/L Normal 3.7-5.3 [facility] Comment on above: Performed By: #### U RNA, URTP, URCRE, UEOS #### [address] [address] Warehouse Distribution Manager: Alexey Green MD Sodium [Moles/Vol] 137 mmol/L Normal 136-145 [facility] Comment on above: Performed By: #### U RNA, URTP, URCRE, UEOS #### [facility] [address] [place] [address] Warehouse Distribution Manager: Alexey Green MD Urea nitrogen [Mass/Vol] 43 mg/dL High 8-23 [facility] Comment on above: Performed By: #### U RNA, URTP, URCRE, UEOS #### [facility] [address] [place] [address] Warehouse Distribution Manager: Alexey Green MD Anion gap [Moles/Vol] 9 mmol/L Normal 9-16 [facility] Comment on above: Performed By: #### C DP #### [address] [place] [address] Warehouse Distribution Manager: Alexey Green MD Calcium [Mass/Vol] 7.7 mg/dL Low 8.6-10.4 [facility] Comment on above: Performed By: #### C DP #### [address] [address] Warehouse Distribution Manager: Alexey Green MD Chloride [Moles/Vol] 108 mmol/L High 98-107 [facility] Comment on above: Performed By: #### C DP #### [address] [address] Warehouse Distribution Manager: Alexey Green MD CO2 [Moles/Vol] 20 mmol/L Normal 20-31 [facility] Comment on above: Performed By: #### C DP #### [address] [address] Warehouse Distribution Manager: Alexey Green MD Creatinine [Mass/Vol] 2.7 mg/dL High 0.50-0.90 [facility] Comment on above: Performed By: #### C DP #### [address] [address] Warehouse Distribution Manager: Alexey Green MD GFR/1.73 sq M.predicted among non-blacks MDRD (S/P/Bld) [Vol rate/Area] 17 mL/min/{1.73_m2} Low >60 [facility] Comment on above: Result Comment: These results are not intended for use in patients <18 years of age. eGFR results are calculated without a race factor using the 2020 CKD-EPI equation. Careful clinical correlation is recommended, particularly when comparing to results calculated using previous equations. The CKD-EPI equation is less accurate in patients with extremes of muscle mass, extra-renal metabolism of creatine, excessive creatine ingestion, or following therapy that affects renal tubular secretion. Performed By: #### C DP #### [address] [address] Warehouse Distribution Manager: Alexey Green MD Glucose [Mass/Vol] 132 mg/dL High 74-99 [facility] Comment on above: Performed By: #### C DP #### [facility] [address] [place] [address] Warehouse Distribution Manager: Alexey Green MD Potassium [Moles/Vol] 4.9 mmol/L Normal 3.7-5.3 [facility] Comment on above: Performed By: #### C DP #### [facility] [address] [place] [address] Warehouse Distribution Manager: Alexey Green MD Sodium [Moles/Vol] 137 mmol/L Normal 136-145 [facility] Comment on above: Performed By: #### C DP #### [address] [address] Warehouse Distribution Manager: Alexey Green MD Urea nitrogen [Mass/Vol] 43 mg/dL High 8-23 [facility] Comment on above: Performed By: #### C DP #### [address] [address] Warehouse Distribution Manager: Alexey Green MD C3on 1 C3 120 mg/dL Normal 90-180 [facility] Comment on above: Performed By: #### U RNA, URTP, URCRE, UEOS #### [facility] [address] [place] [address] Warehouse Distribution Manager: Alexey Green MD C3 120 mg/dL Normal 90-180 [facility] Comment on above: Performed By: #### U MICAO, UA #### [facility] [address] [place] [address] Warehouse Distribution Manager: Alexey Green MD C4on 07-26-2023 C4 27 mg/dL Normal 10-40 [facility] Comment on above: Performed By: #### U RNA, URTP, URCRE, UEOS #### [address] [address] Warehouse Distribution Manager: Alexey Green MD C4 27 mg/dL Normal 10-40 [facility] Comment on above: Performed By: #### U MICAO, UA #### [address] [address] Warehouse Distribution Manager: Alexey Green MD CBC with Diffon 07-26-2023 Abs. Basophil 0.04 k/uL Normal 0.00-0.20 [facility] Comment on above: Performed By: #### U RNA, URTP, URCRE, UEOS #### [address] [address] Warehouse Distribution Manager: Alexey Green MD Abs.Imm.Granulocyte 0.07 k/uL Normal 0.00-0.30 [facility] Comment on above: Performed By: #### U RNA, URTP, URCRE, UEOS #### [address] [address] Warehouse Distribution Manager: Alexey Green MD Abs.Neutrophil (Seg) 7.93 k/uL Normal 1.50-8.10 [facility] Comment on above: Performed By: #### U RNA, URTP, URCRE, UEOS #### [address] [address] Warehouse Distribution Manager: Alexey Green MD Basophils/100 WBC (Bld) 0 % Normal 0-2 [facility] Comment on above: Performed By: #### U RNA, URTP, URCRE, UEOS #### [address] [address] Warehouse Distribution Manager: Alexey Green MD Eosinophils (Bld) [#/Vol] 0.79 10*3/uL High 0.00-0.44 [facility] Comment on above: Performed By: #### U RNA, URTP, URCRE, UEOS #### [address] [address] Warehouse Distribution Manager: Alexey Green MD Eosinophils/100 WBC (Bld) 6 % High 1-4 [facility] Comment on above: Performed By: #### U RNA, URTP, URCRE, UEOS #### [address] [address] Warehouse Distribution Manager: Alexey Green MD Erythrocyte distribution width (RBC) [Ratio] 19.9 % High 11.8-14.4 [facility] Comment on above: Performed By: #### U RNA, URTP, URCRE, UEOS #### [address] [address] Warehouse Distribution Manager: Alexey Green MD Hematocrit (Bld) [Volume fraction] 29.3 % Low 36.3-47.1 [facility] Comment on above: Performed By: #### U RNA, URTP, URCRE, UEOS #### [address] [address] Warehouse Distribution Manager: Alexey Green MD Hemoglobin (Bld) [Mass/Vol] 8.8 g/dL Low 11.9-15.1 [facility] Comment on above: Performed By: #### U RNA, URTP, URCRE, UEOS #### [address] [address] Warehouse Distribution Manager: Alexey Green MD Immature granulocytes/100 WBC (Bld) 1 % High 0 [facility] Comment on above: Performed By: #### U RNA, URTP, URCRE, UEOS #### [address] [address] Warehouse Distribution Manager: Alexey Green MD Lymphocytes (Bld) [#/Vol] 3.17 10*3/uL Normal 1.10-3.70 [facility] Comment on above: Performed By: #### U RNA, URTP, URCRE, UEOS #### [address] [address] Warehouse Distribution Manager: Alexey Green MD Lymphocytes/100 WBC (Bld) 24 % Normal 24-43 [facility] Comment on above: Performed By: #### U RNA, URTP, URCRE, UEOS #### [address] [address] Warehouse Distribution Manager: Alexey Green MD MCH (RBC) [Entitic mass] 29.6 pg Normal 25.2-33.5 [facility] Comment on above: Performed By: #### U RNA, URTP, URCRE, UEOS #### [place] [address] Warehouse Distribution Manager: Alexey Green MD MCHC (RBC) [Mass/Vol] 30.0 g/dL Normal 28.4-34.8 [facility] Comment on above: Performed By: #### U RNA, URTP, URCRE, UEOS #### [address] [address] Warehouse Distribution Manager: Alexey Green MD MCV (RBC) [Entitic vol] 98.7 fL Normal 82.6-102.9 [facility] Comment on above: Performed By: #### U RNA, URTP, URCRE, UEOS #### [address] [address] Warehouse Distribution Manager: Alexey Green MD Monocytes (Bld) [#/Vol] 1.13 10*3/uL Normal 0.10-1.20 [facility] Comment on above: Performed By: #### U RNA, URTP, URCRE, UEOS #### [address] [address] Warehouse Distribution Manager: Alexey Green MD Monocytes/100 WBC (Bld) 9 % Normal 3-12 [facility] Comment on above: Performed By: #### U RNA, URTP, URCRE, UEOS #### [address] [address] Warehouse Distribution Manager: Alexey Green MD Neutrophil (Seg) 61 % Normal 36-65 [facility] Comment on above: Performed By: #### U RNA, URTP, URCRE, UEOS #### [address] [address] Warehouse Distribution Manager: Alexey Green MD NRBC Automated 0.2 per 100 WBC High 0.0 [facility] Comment on above: Performed By: #### U RNA, URTP, URCRE, UEOS #### [address] [address] Warehouse Distribution Manager: Alexey Green MD Platelet Count See Reflexed IPF Result Normal 138-453 [facility] Comment on above: Performed By: #### U RNA, URTP, URCRE, UEOS #### [address] [address] Warehouse Distribution Manager: Alexey Green MD Platelet, Fluoresc. 133 k/uL Low 138-453 [facility] Comment on above: Performed By: #### U RNA, URTP, URCRE, UEOS #### [address] [address] Warehouse Distribution Manager: Alexey Green MD PLT, Immature Fract. 6.0 % Normal 1.1-10.3 [facility] Comment on above: Performed By: #### U RNA, URTP, URCRE, UEOS #### [address] [address] Warehouse Distribution Manager: Alexey Green MD RBC (Bld) [#/Vol] 2.97 10*6/uL Low 3.95-5.11 [facility] Comment on above: Performed By: #### U RNA, URTP, URCRE, UEOS #### [address] [address] Warehouse Distribution Manager: Alexey Green MD RBC morphology finding Nom (Bld) ANISOCYTOSIS PRESENT Normal [facility] Comment on above: Performed By: #### U RNA, URTP, URCRE, UEOS #### [address] [address] Warehouse Distribution Manager: Alexey Green MD WBC (Bld) [#/Vol] 13.1 10*3/uL High 3.5-11.3 [facility] Comment on above: Performed By: #### U RNA, URTP, URCRE, UEOS #### [address] [address] Warehouse Distribution Manager: Alexey Green MD Abs. Basophil 0.04 k/uL Normal 0.00-0.20 [facility] Comment on above: Performed By: #### C DP #### [address] [address] Warehouse Distribution Manager: Alexey Green MD Abs.Imm.Granulocyte 0.07 k/uL Normal 0.00-0.30 [facility] Comment on above: Performed By: #### C DP #### [address] [address] Warehouse Distribution Manager: Alexey Green MD Abs.Neutrophil (Seg) 7.93 k/uL Normal 1.50-8.10 [facility] Comment on above: Performed By: #### C DP #### [address] [address] Warehouse Distribution Manager: Alexey Green MD Basophils/100 WBC (Bld) 0 % Normal 0-2 [facility] Comment on above: Performed By: #### C DP #### [address] [address] Warehouse Distribution Manager: Alexey Green MD Eosinophils (Bld) [#/Vol] 0.79 10*3/uL High 0.00-0.44 [facility] Comment on above: Performed By: #### C DP #### [address] [address] Warehouse Distribution Manager: Alexey Green MD Eosinophils/100 WBC (Bld) 6 % High 1-4 [facility] Comment on above: Performed By: #### C DP #### [address] [address] Warehouse Distribution Manager: Alexey Green MD Erythrocyte distribution width (RBC) [Ratio] 19.9 % High 11.8-14.4 [facility] Comment on above: Performed By: #### C DP #### [address] [address] Warehouse Distribution Manager: Alexey Green MD Hematocrit (Bld) [Volume fraction] 29.3 % Low 36.3-47.1 [facility] Comment on above: Performed By: #### C DP #### [address] [address] Warehouse Distribution Manager: Alexey Green MD Hemoglobin (Bld) [Mass/Vol] 8.8 g/dL Low 11.9-15.1 [facility] Comment on above: Performed By: #### C DP #### [address] [address] Warehouse Distribution Manager: Alexey Green MD Immature granulocytes/100 WBC (Bld) 1 % High 0 [facility] Comment on above: Performed By: #### C DP #### [address] [address] Warehouse Distribution Manager: Alexey Green MD Lymphocytes (Bld) [#/Vol] 3.17 10*3/uL Normal 1.10-3.70 [facility] Comment on above: Performed By: #### C DP #### [address] [address] Warehouse Distribution Manager: Alexey Green MD Lymphocytes/100 WBC (Bld) 24 % Normal 24-43 [facility] Comment on above: Performed By: #### C DP #### [address] [address] Warehouse Distribution Manager: Alexey Green MD MCH (RBC) [Entitic mass] 29.6 pg Normal 25.2-33.5 [facility] Comment on above: Performed By: #### C DP #### [address] [address] Warehouse Distribution Manager: Alexey Green MD MCHC (RBC) [Mass/Vol] 30.0 g/dL Normal 28.4-34.8 [facility] Comment on above: Performed By: #### C DP #### [address] [address] Warehouse Distribution Manager: Alexey Green MD MCV (RBC) [Entitic vol] 98.7 fL Normal 82.6-102.9 [facility] Comment on above: Performed By: #### C DP #### [address] [address] Warehouse Distribution Manager: Alexey Green MD Monocytes (Bld) [#/Vol] 1.13 10*3/uL Normal 0.10-1.20 [facility] Comment on above: Performed By: #### C DP #### [address] [address] Warehouse Distribution Manager: Alexey Green MD Monocytes/100 WBC (Bld) 9 % Normal 3-12 [facility] Comment on above: Performed By: #### C DP #### [address] [address] Warehouse Distribution Manager: Alexey Green MD Neutrophil (Seg) 61 % Normal 36-65 [facility] Comment on above: Performed By: #### C DP #### [address] [address] Warehouse Distribution Manager: Alexey Green MD NRBC Automated 0.2 per 100 WBC High 0.0 [facility] Comment on above: Performed By: #### C DP #### [address] [address] Warehouse Distribution Manager: Alexey Green MD Platelet Count See Reflexed IPF Result Normal 138-453 [facility] Comment on above: Performed By: #### C DP #### [address] [address] Warehouse Distribution Manager: Alexey Green MD Platelet, Fluoresc. 133 k/uL Low 138-453 [facility] Comment on above: Performed By: #### C DP #### [address] [address] Warehouse Distribution Manager: Alexey Green MD PLT, Immature Fract. 6.0 % Normal 1.1-10.3 [facility] Comment on above: Performed By: #### C DP #### [address] [address] Warehouse Distribution Manager: Alexey Green MD RBC (Bld) [#/Vol] 2.97 10*6/uL Low 3.95-5.11 [facility] Comment on above: Performed By: #### C DP #### [address] [address] Warehouse Distribution Manager: Alexey Green MD RBC morphology finding Nom (Bld) ANISOCYTOSIS PRESENT Normal [facility] Comment on above: Performed By: #### C DP #### [address] [address] Warehouse Distribution Manager: Alexey Green MD WBC (Bld) [#/Vol] 13.1 10*3/uL High 3.5-11.3 [facility] Comment on above: Performed By: #### C DP #### [address] [address] Warehouse Distribution Manager: Alexey Green MD Creatinine,Random Uron 07-25 Creatinine [Mass/Vol] 63.2 mg/dL Normal 28.0-217.0 [facility] Comment on above: Performed By: #### U RNA, URTP, URCRE, UEOS #### [address] [address] Warehouse Distribution Manager: Alexey Green MD Creatinine [Mass/Vol] 63.2 mg/dL Normal 28.0-217.0 [facility] Comment on above: Performed By: #### C DP, BMP #### [address] [address] Warehouse Distribution Manager: Alexey Green MD Eosinophils, Urineon 024 Eosinophils, Urine NONE SEEN Normal [facility] Comment on above: Performed By: #### U RNA, URTP, URCRE, UEOS #### [address] [address] Warehouse Distribution Manager: Alexey Green MD Eosinophils, Urine NONE SEEN Normal [facility] Comment on above: Performed By: #### C DP, BMP #### [address] [address] Warehouse Distribution Manager: Alexey Green MD Free Liberal + Lambdaon 2023 Free Liberal Lt Chains 95.5 mg/L High <20.8 [facility] Comment on above: Result Comment: Perf ormed using Diazyme reagent on Yolis Narcisa Pro. Results obtained with different assay methods cannot be used interchangeably. Performed By: #### U RNA, URTP, URCRE, UEOS #### [facility] [address] [place] [address] Warehouse Distribution Manager: Alexey Green MD Free Liberal/Lambda Rat 1.29 Normal 0.22-1.74 [facility] Comment on above: Performed By: #### U RNA, URTP, URCRE, UEOS #### [address] [address] Warehouse Distribution Manager: Alexey Green MD Free Lambda Lt Chains 74.1 mg/L High 4.2-27.7 [facility] Comment on above: Result Comment: Perf ormed using Diazyme reagent on Yolis Narcisa Pro. Results obtained with different assay methods cannot be used interchangeably. Performed By: #### U RNA, URTP, URCRE, UEOS #### [address] [address] Warehouse Distribution Manager: Alexey Green MD Free Liberal Lt Chains 95.5 mg/L High <20.8 [facility] Comment on above: Result Comment: Perf ormed using Diazyme reagent on Yolis Narcisa Pro. Results obtained with different assay methods cannot be used interchangeably. Performed By: #### U ZACARIAS, UA #### [facility] [address] [place] [address] Warehouse Distribution Manager: Alexey Green MD Free Liberal/Lambda Rat 1.29 Normal 0.22-1.74 [facility] Comment on above: Performed By: #### U KURTISO, UA #### [facility] [place] [address] Warehouse Distribution Manager: Alexey Green MD Free Lambda Lt Chains 74.1 mg/L High 4.2-27.7 [facility] Comment on above: Result Comment: Perf ormed using Diazyme reagent on Yolis Narcisa Pro. Results obtained with different assay methods cannot be used interchangeably. Performed By: #### U ZACARIAS, UA #### [address] [address] Warehouse Distribution Manager: Alexey Green MD Prot. Electroph, Blon 2023 Protein [Mass/Vol] 5.7 g/dL Low 6.6-8.7 [facility] Comment on above: Performed By: #### U RNA, URTP, URCRE, UEOS #### [place] [address] Warehouse Distribution Manager: Alexey Green MD Protein [Mass/Vol] 5.7 g/dL Low 6.6-8.7 [facility] Comment on above: Performed By: #### Tanja ADAMES, UA #### [place] [address] Warehouse Distribution Manager: Alexey Green MD Protein,Tot,[place] Uron 2023 Tot Prot. Conc. 29 mg/dL Normal [facility] Comment on above: Result Comment: No n ormal range established. Performed By: #### U RNA, URTP, URCRE, UEOS #### [place] [address] Warehouse Distribution Manager: Alexey Green MD Tot Prot. Conc. 29 mg/dL Normal [facility] Comment on above: Result Comment: No n ormal range established. Performed By: #### C DP, BMP #### [place] [address] Warehouse Distribution Manager: Alexey Green MD Sodium, Random Uron 07-26-19 24 Sodium (U) [Moles/Vol] 32 mmol/L Normal [facility] Comment on above: Result Comment: No n ormal range established. Performed By: #### U RNA, URTP, URCRE, UEOS #### [facility] [address] [place] [address] Warehouse Distribution Manager: Alexey Green MD Sodium (U) [Moles/Vol] 32 mmol/L Normal [facility] Comment on above: Result Comment: No n ormal range established. Performed By: #### C DP, BMP #### [facility] [address] [place] [address] Warehouse Distribution Manager: Alexey Green MD US RENAL COMPLETEon 07-26-19 US RENAL COMPLETE EXAMINATION: RETROPERITONEAL ULTRASOUND OF THE KIDNEYS AND URINARY BLADDER 07/26/2023 COMPARISON: None HISTORY: ORDERING SYSTEM PROVIDED HISTORY: increased creatinine TECHNOLOGIST PROVIDED HISTORY: increased creatinine FINDINGS: Kidneys: The right kidney measures 8.0 cm in length and the left kidney measures 9.4 cm in length. Atrophic appearance of the right kidney with multiple small cysts. There is multifocal areas of marked cortical thickening of the right kidney. Suboptimal evaluation of the left kidney, which also demonstrates cortical thinning. Bladder: A [place] catheter is present within the decompressed bladder. IMPRESSION: 1. Atrophic appearance of the right kidney with multifocal areas of marked cortical thinning. 2. Suboptimal evaluation of the left kidney. 3. [place] catheter within the decompressed bladder. Interpreted by: Edmundo Morton MD Signed by: Edmundo Morton MD 07/26/23 Final result Normal [facility] XR CHEST PORTABLEon 07-26-19 XR CHEST PORTABLE EXAMINATION: ONE XRAY VIEW OF THE CHEST 07/26/2023 11:49 am COMPARISON: None. HISTORY: ORDERING SYSTEM PROVIDED HISTORY: Elevated WBC, oxygen requirement TECHNOLOGIST PROVIDED HISTORY: Elevated WBC, oxygen requirement FINDINGS: There is underlying chronic pulmonary change. There is mild congestion. There are trace effusions. There is no pneumothorax. The heart is prominent. There are cardiac leads presumably in the right atrium and right ventricle. The upper abdomen unremarkable. The extrathoracic soft tissues are unremarkable. IMPRESSION: Mild congestion with trace effusions. Subtle left basilar infiltrate representing atelectasis versus pneumonia. Interpreted by: Iam Mcknight MD Signed by: Iam Mcknight MD 07/26/23 Final result Normal [facility] XR CHEST PORTABLE EXAMINATION: ONE XRAY VIEW OF THE CHEST 07/26/2023 11:49 am COMPARISON: None. HISTORY: ORDERING SYSTEM PROVIDED HISTORY: Elevated WBC, oxygen requirement TECHNOLOGIST PROVIDED HISTORY: Elevated WBC, oxygen requirement FINDINGS: There is underlying chronic pulmonary change. There is mild congestion. There are trace effusions. There is no pneumothorax. The heart is prominent. There are cardiac leads presumably in the right atrium and right ventricle. The upper abdomen unremarkable. The extrathoracic soft tissues are unremarkable. IMPRESSION: Mild congestion with trace effusions. Subtle left basilar infiltrate representing atelectasis versus pneumonia. Interpreted by: Iam Mcknight MD Signed by: Iam Mcknight MD 07/26/23 Final result Normal [facility] Basic Metab w/rfx MGon 07-24 Anion gap [Moles/Vol] 11 mmol/L Normal 9-16 [facility] Comment on above: Performed By: #### B MPX #### [address] [address] Warehouse Distribution Manager: Alexey Green MD Calcium [Mass/Vol] 7.7 mg/dL Low 8.6-10.4 [facility] Comment on above: Performed By: #### B MPX #### [address] [address] Warehouse Distribution Manager: Alexey Green MD Chloride [Moles/Vol] 107 mmol/L Normal 98-107 [facility] Comment on above: Performed By: #### B MPX #### [facility] [address] [place] [address] Warehouse Distribution Manager: Alexey Green MD CO2 [Moles/Vol] 19 mmol/L Low 20-31 [facility] Comment on above: Performed By: #### B MPX #### [facility] [address] [place] [address] Warehouse Distribution Manager: Alexey Green MD Creatinine [Mass/Vol] 2.4 mg/dL High 0.50-0.90 [facility] Comment on above: Performed By: #### B MPX #### [facility] [address] [place] [address] Warehouse Distribution Manager: Alexey Green MD GFR/1.73 sq M.predicted among non-blacks MDRD (S/P/Bld) [Vol rate/Area] 19 mL/min/{1.73_m2} Low >60 [facility] Comment on above: Result Comment: These results are not intended for use in patients <18 years of age. eGFR results are calculated without a race factor using the 2020 CKD-EPI equation. Careful clinical correlation is recommended, particularly when comparing to results calculated using previous equations. The CKD-EPI equation is less accurate in patients with extremes of muscle mass, extra-renal metabolism of creatine, excessive creatine ingestion, or following therapy that affects renal tubular secretion. Performed By: #### B MPX #### [facility] [address] [place] [address] Warehouse Distribution Manager: Alexey Green MD Glucose [Mass/Vol] 188 mg/dL High 74-99 [facility] Comment on above: Performed By: #### B MPX #### [facility] [address] [place] [address] Warehouse Distribution Manager: Alexey Green MD Potassium [Moles/Vol] 5.1 mmol/L Normal 3.7-5.3 [facility] Comment on above: Performed By: #### B MPX #### [facility] [address] [place] [address] Warehouse Distribution Manager: Alexey Green MD Sodium [Moles/Vol] 137 mmol/L Normal 136-145 [facility] Comment on above: Performed By: #### B MPX #### [facility] [address] [place] [address] Warehouse Distribution Manager: Alexey Green MD Urea nitrogen [Mass/Vol] 42 mg/dL High 8-23 [facility] Comment on above: Performed By: #### B MPX #### [address] [address] Warehouse Distribution Manager: Alexey Green MD Anion gap [Moles/Vol] 11 mmol/L Normal 9-16 [facility] Comment on above: Performed By: #### B MPX #### [address] [address] Warehouse Distribution Manager: Alexey Green MD Calcium [Mass/Vol] 7.7 mg/dL Low 8.6-10.4 [facility] Comment on above: Performed By: #### B MPX #### [address] [address] Warehouse Distribution Manager: Alexey Green MD Chloride [Moles/Vol] 107 mmol/L Normal 98-107 [facility] Comment on above: Performed By: #### B MPX #### [address] [address] Warehouse Distribution Manager: Alexey Green MD CO2 [Moles/Vol] 19 mmol/L Low 20-31 [facility] Comment on above: Performed By: #### B MPX #### [address] [address] Warehouse Distribution Manager: Alexey Green MD Creatinine [Mass/Vol] 2.4 mg/dL High 0.50-0.90 [facility] Comment on above: Performed By: #### B MPX #### [address] [address] Warehouse Distribution Manager: Alexey Green MD GFR/1.73 sq M.predicted among non-blacks MDRD (S/P/Bld) [Vol rate/Area] 19 mL/min/{1.73_m2} Low >60 [facility] Comment on above: Result Comment: These results are not intended for use in patients <18 years of age. eGFR results are calculated without a race factor using the 2020 CKD-EPI equation. Careful clinical correlation is recommended, particularly when comparing to results calculated using previous equations. The CKD-EPI equation is less accurate in patients with extremes of muscle mass, extra-renal metabolism of creatine, excessive creatine ingestion, or following therapy that affects renal tubular secretion. Performed By: #### B MPX #### [address] [address] Warehouse Distribution Manager: Alexey Green MD Glucose [Mass/Vol] 188 mg/dL High 74-99 [facility] Comment on above: Performed By: #### B MPX #### [address] [address] Warehouse Distribution Manager: Alexey Green MD Potassium [Moles/Vol] 5.1 mmol/L Normal 3.7-5.3 [facility] Comment on above: Performed By: #### B MPX #### [address] [address] Warehouse Distribution Manager: Alexey Green MD Sodium [Moles/Vol] 137 mmol/L Normal 136-145 [facility] Comment on above: Performed By: #### B MPX #### [address] [address] Warehouse Distribution Manager: Alexey Green MD Urea nitrogen [Mass/Vol] 42 mg/dL High 8-23 [facility] Comment on above: Performed By: #### B MPX #### [address] [address] Warehouse Distribution Manager: Alexey Green MD Basic Metabolic Profon 07-24 Anion gap [Moles/Vol] 10 mmol/L Normal 9-16 [facility] Comment on above: Performed By: #### C DP, BMP #### [address] [address] Warehouse Distribution Manager: Alexey Green MD Calcium [Mass/Vol] 7.6 mg/dL Low 8.6-10.4 [facility] Comment on above: Performed By: #### C DP, BMP #### [facility] [address] [place] [address] Warehouse Distribution Manager: Alexey Green MD Chloride [Moles/Vol] 108 mmol/L High 98-107 [facility] Comment on above: Performed By: #### C DP, BMP #### [facility] [address] [place] [address] Warehouse Distribution Manager: Alexey Green MD CO2 [Moles/Vol] 21 mmol/L Normal 20-31 [facility] Comment on above: Performed By: #### C DP, BMP #### [facility] [address] [place] [address] Warehouse Distribution Manager: Alexey Green MD Creatinine [Mass/Vol] 2.3 mg/dL High 0.50-0.90 [facility] Comment on above: Performed By: #### C DP, BMP #### [address] [address] Warehouse Distribution Manager: Alexey Green MD GFR/1.73 sq M.predicted among non-blacks MDRD (S/P/Bld) [Vol rate/Area] 20 mL/min/{1.73_m2} Low >60 [facility] Comment on above: Result Comment: These results are not intended for use in patients <18 years of age. eGFR results are calculated without a race factor using the 2020 CKD-EPI equation. Careful clinical correlation is recommended, particularly when comparing to results calculated using previous equations. The CKD-EPI equation is less accurate in patients with extremes of muscle mass, extra-renal metabolism of creatine, excessive creatine ingestion, or following therapy that affects renal tubular secretion. Performed By: #### C DP, BMP #### [address] [address] Warehouse Distribution Manager: Alexey Green MD Glucose [Mass/Vol] 130 mg/dL High 74-99 [facility] Comment on above: Performed By: #### C DP, BMP #### [facility] [address] [place] [address] Warehouse Distribution Manager: Alexey Green MD Potassium [Moles/Vol] 5.3 mmol/L Normal 3.7-5.3 [facility] Comment on above: Performed By: #### C DP, BMP #### [facility] [address] [place] [address] Warehouse Distribution Manager: Alexey Green MD Sodium [Moles/Vol] 139 mmol/L Normal 136-145 [facility] Comment on above: Performed By: #### C DP, BMP #### [facility] [address] [place] [address] Warehouse Distribution Manager: Alexey Green MD Urea nitrogen [Mass/Vol] 41 mg/dL High 8-23 [facility] Comment on above: Performed By: #### C DP, BMP #### [facility] [address] [place] [address] Warehouse Distribution Manager: Alexey Green MD Anion gap [Moles/Vol] 10 mmol/L Normal 9-16 [facility] Comment on above: Performed By: #### C DP, BMP #### [facility] [address] [place] [address] Warehouse Distribution Manager: Alexey Green MD Calcium [Mass/Vol] 7.6 mg/dL Low 8.6-10.4 [facility] Comment on above: Performed By: #### C DP, BMP #### [facility] [address] [place] [address] Warehouse Distribution Manager: Alexey Green MD Chloride [Moles/Vol] 108 mmol/L High 98-107 [facility] Comment on above: Performed By: #### C DP, BMP #### [facility] [address] [place] [address] Warehouse Distribution Manager: Alexey Green MD CO2 [Moles/Vol] 21 mmol/L Normal 20-31 [facility] Comment on above: Performed By: #### C DP, BMP #### [facility] [address] [place] [address] Warehouse Distribution Manager: Alexey Green MD Creatinine [Mass/Vol] 2.3 mg/dL High 0.50-0.90 [facility] Comment on above: Performed By: #### C DP, BMP #### [address] [address] Warehouse Distribution Manager: Alexey Green MD GFR/1.73 sq M.predicted among non-blacks MDRD (S/P/Bld) [Vol rate/Area] 20 mL/min/{1.73_m2} Low >60 [facility] Comment on above: Result Comment: These results are not intended for use in patients <18 years of age. eGFR results are calculated without a race factor using the 2020 CKD-EPI equation. Careful clinical correlation is recommended, particularly when comparing to results calculated using previous equations. The CKD-EPI equation is less accurate in patients with extremes of muscle mass, extra-renal metabolism of creatine, excessive creatine ingestion, or following therapy that affects renal tubular secretion. Performed By: #### C DP, BMP #### [address] [address] Warehouse Distribution Manager: Alexey Green MD Glucose [Mass/Vol] 130 mg/dL High 74-99 [facility] Comment on above: Performed By: #### C DP, BMP #### [facility] [address] [place] [address] Warehouse Distribution Manager: Alexey Green MD Potassium [Moles/Vol] 5.3 mmol/L Normal 3.7-5.3 [facility] Comment on above: Performed By: #### C DP, BMP #### [facility] [address] [place] [address] Warehouse Distribution Manager: Alexey Green MD Sodium [Moles/Vol] 139 mmol/L Normal 136-145 [facility] Comment on above: Performed By: #### C DP, BMP #### [place] [address] Warehouse Distribution Manager: Alexey Green MD Urea nitrogen [Mass/Vol] 41 mg/dL High 8-23 [facility] Comment on above: Performed By: #### C DP, BMP #### [place] [address] Warehouse Distribution Manager: Alexey Green MD CBC with Diffon 07-25-2023 Abs. Basophil 0.03 k/uL Normal 0.00-0.20 [facility] Comment on above: Performed By: #### C DP, BMP #### [place] [address] Warehouse Distribution Manager: Alexey Green MD Abs.Imm.Granulocyte 0.03 k/uL Normal 0.00-0.30 [facility] Comment on above: Performed By: #### C DP, BMP #### [place] [address] Warehouse Distribution Manager: Alexey Green MD Abs.Neutrophil (Seg) 6.37 k/uL Normal 1.50-8.10 [facility] Comment on above: Performed By: #### C DP, BMP #### [place] [address] Warehouse Distribution Manager: Alexey Green MD Basophils/100 WBC (Bld) 0 % Normal 0-2 [facility] Comment on above: Performed By: #### C DP, BMP #### [place] [address] Warehouse Distribution Manager: Alexey Green MD Eosinophils (Bld) [#/Vol] 0.30 10*3/uL Normal 0.00-0.44 [facility] Comment on above: Performed By: #### C DP, BMP #### [address] [address] Warehouse Distribution Manager: Alexey Green MD Eosinophils/100 WBC (Bld) 3 % Normal 1-4 [facility] Comment on above: Performed By: #### C DP, BMP #### [place] [address] Warehouse Distribution Manager: Alxeey Green MD Erythrocyte distribution width (RBC) [Ratio] 13.5 % Normal 11.8-14.4 [facility] Comment on above: Performed By: #### C DP, BMP #### [place] [address] Warehouse Distribution Manager: Alexey Green MD Hematocrit (Bld) [Volume fraction] 28.3 % Low 36.3-47.1 [facility] Comment on above: Performed By: #### C DP, BMP #### [place] [address] Warehouse Distribution Manager: Alexey Green MD Hemoglobin (Bld) [Mass/Vol] 8.2 g/dL Low 11.9-15.1 [facility] Comment on above: Performed By: #### C DP, BMP #### [address] [address] Warehouse Distribution Manager: Alexey Green MD Immature granulocytes/100 WBC (Bld) 0 % Normal 0 [facility] Comment on above: Performed By: #### C DP, BMP #### [place] [address] Warehouse Distribution Manager: Alexey Green MD Lymphocytes (Bld) [#/Vol] 3.86 10*3/uL High 1.10-3.70 [facility] Comment on above: Performed By: #### C DP, BMP #### [address] [address] Warehouse Distribution Manager: Alexey Green MD Lymphocytes/100 WBC (Bld) 33 % Normal 24-43 [facility] Comment on above: Performed By: #### C DP, BMP #### [address] [address] Warehouse Distribution Manager: Alexey Green MD MCH (RBC) [Entitic mass] 31.5 pg Normal 25.2-33.5 [facility] Comment on above: Performed By: #### C DP, BMP #### [address] [address] Warehouse Distribution Manager: Alexey Green MD MCHC (RBC) [Mass/Vol] 29.0 g/dL Normal 28.4-34.8 [facility] Comment on above: Performed By: #### C DP, BMP #### [address] [address] Warehouse Distribution Manager: Alexey Green MD MCV (RBC) [Entitic vol] 108.8 fL High 82.6-102.9 [facility] Comment on above: Performed By: #### C DP, BMP #### [address] [address] Warehouse Distribution Manager: Alexey Green MD Monocytes (Bld) [#/Vol] 1.19 10*3/uL Normal 0.10-1.20 [facility] Comment on above: Performed By: #### C DP, BMP #### [address] [address] Warehouse Distribution Manager: Alexey Green MD Monocytes/100 WBC (Bld) 10 % Normal 3-12 [facility] Comment on above: Performed By: #### C DP, BMP #### [address] [address] Warehouse Distribution Manager: Alexey Green MD Neutrophil (Seg) 54 % Normal 36-65 [facility] Comment on above: Performed By: #### C DP, BMP #### [address] [address] Warehouse Distribution Manager: Alexey Green MD NRBC Automated 0.0 per 100 WBC Normal 0.0 [facility] Comment on above: Performed By: #### C DP, BMP #### [address] [address] Warehouse Distribution Manager: Alexey Green MD Platelet mean volume (Bld) [Entitic vol] 11.8 fL Normal 8.1-13.5 [facility] Comment on above: Performed By: #### C DP, BMP #### [address] [address] Warehouse Distribution Manager: Alexey Green MD Platelets (Bld) [#/Vol] 148 10*3/uL Normal 138-453 [facility] Comment on above: Performed By: #### C DP, BMP #### [address] [address] Warehouse Distribution Manager: Alexey Green MD RBC (Bld) [#/Vol] 2.60 10*6/uL Low 3.95-5.11 [facility] Comment on above: Performed By: #### C DP, BMP #### [address] [address] Warehouse Distribution Manager: Alexey Green MD RBC morphology finding Nom (Bld) MACROCYTOSIS PRESENT Normal [facility] Comment on above: Performed By: #### C DP, BMP #### [address] [address] Warehouse Distribution Manager: Alexey Green MD WBC (Bld) [#/Vol] 11.8 10*3/uL High 3.5-11.3 [facility] Comment on above: Performed By: #### C DP, BMP #### [facility] [address] [place] [address] Warehouse Distribution Manager: Alexey Green MD Abs. Basophil 0.03 k/uL Normal 0.00-0.20 [facility] Comment on above: Performed By: #### C DP, BMP #### [address] [address] Warehouse Distribution Manager: Alexey Green MD Abs.Imm.Granulocyte 0.03 k/uL Normal 0.00-0.30 [facility] Comment on above: Performed By: #### C DP, BMP #### [facility] [employer] [address] [place] [address] Warehouse Distribution Manager: Alexey Green MD Abs.Neutrophil (Seg) 6.37 k/uL Normal 1.50-8.10 [facility] Comment on above: Performed By: #### C DP, BMP #### [facility] [address] [place] [address] Warehouse Distribution Manager: Alexey Green MD Basophils/100 WBC (Bld) 0 % Normal 0-2 [facility] Comment on above: Performed By: #### C DP, BMP #### [facility] [address] [place] [address] Warehouse Distribution Manager: Alexey Green MD Eosinophils (Bld) [#/Vol] 0.30 10*3/uL Normal 0.00-0.44 [facility] Comment on above: Performed By: #### C DP, BMP #### [facility] [address] [place] [address] Warehouse Distribution Manager: Alexey Green MD Eosinophils/100 WBC (Bld) 3 % Normal 1-4 [facility] Comment on above: Performed By: #### C DP, BMP #### [facility] [address] [place] [address] Warehouse Distribution Manager: Alexey Green MD Erythrocyte distribution width (RBC) [Ratio] 13.5 % Normal 11.8-14.4 [facility] Comment on above: Performed By: #### C DP, BMP #### [address] [address] Warehouse Distribution Manager: Alexey Green MD Hematocrit (Bld) [Volume fraction] 28.3 % Low 36.3-47.1 [facility] Comment on above: Performed By: #### C DP, BMP #### [address] [address] Warehouse Distribution Manager: Alexey Green MD Hemoglobin (Bld) [Mass/Vol] 8.2 g/dL Low 11.9-15.1 [facility] Comment on above: Performed By: #### C DP, BMP #### [address] [address] Warehouse Distribution Manager: Alexey Green MD Immature granulocytes/100 WBC (Bld) 0 % Normal 0 [facility] Comment on above: Performed By: #### C DP, BMP #### [address] [address] Warehouse Distribution Manager: Alexey Green MD Lymphocytes (Bld) [#/Vol] 3.86 10*3/uL High 1.10-3.70 [facility] Comment on above: Performed By: #### C DP, BMP #### [address] [address] Warehouse Distribution Manager: Alexey Green MD Lymphocytes/100 WBC (Bld) 33 % Normal 24-43 [facility] Comment on above: Performed By: #### C DP, BMP #### [address] [address] Warehouse Distribution Manager: Alexey Green MD MCH (RBC) [Entitic mass] 31.5 pg Normal 25.2-33.5 [facility] Comment on above: Performed By: #### C DP, BMP #### [address] [address] Warehouse Distribution Manager: Alexey Green MD MCHC (RBC) [Mass/Vol] 29.0 g/dL Normal 28.4-34.8 [facility] Comment on above: Performed By: #### C DP, BMP #### [address] [address] Warehouse Distribution Manager: Alexey Green MD MCV (RBC) [Entitic vol] 108.8 fL High 82.6-102.9 [facility] Comment on above: Performed By: #### C DP, BMP #### [address] [address] Warehouse Distribution Manager: Alexey Green MD Monocytes (Bld) [#/Vol] 1.19 10*3/uL Normal 0.10-1.20 [facility] Comment on above: Performed By: #### C DP, BMP #### [address] [address] Warehouse Distribution Manager: Alexey Green MD Monocytes/100 WBC (Bld) 10 % Normal 3-12 [facility] Comment on above: Performed By: #### C DP, BMP #### [address] [address] Warehouse Distribution Manager: Alexey Green MD Neutrophil (Seg) 54 % Normal 36-65 [facility] Comment on above: Performed By: #### C DP, BMP #### [address] [address] Warehouse Distribution Manager: Alexey Green MD NRBC Automated 0.0 per 100 WBC Normal 0.0 [facility] Comment on above: Performed By: #### C DP, BMP #### [address] [place] [address] Warehouse Distribution Manager: Alexey Green MD Platelet mean volume (Bld) [Entitic vol] 11.8 fL Normal 8.1-13.5 [facility] Comment on above: Performed By: #### C DP, BMP #### [address] [address] Warehouse Distribution Manager: Alexey Green MD Platelets (Bld) [#/Vol] 148 10*3/uL Normal 138-453 [facility] Comment on above: Performed By: #### C DP, BMP #### [address] [address] Warehouse Distribution Manager: Alexey Green MD RBC (Bld) [#/Vol] 2.60 10*6/uL Low 3.95-5.11 [facility] Comment on above: Performed By: #### C DP, BMP #### [address] [address] Warehouse Distribution Manager: Alexey Green MD RBC morphology finding Nom (Bld) MACROCYTOSIS PRESENT Normal [facility] Comment on above: Performed By: #### C DP, BMP #### [address] [address] Warehouse Distribution Manager: Alexey Green MD WBC (Bld) [#/Vol] 11.8 10*3/uL High 3.5-11.3 [facility] Comment on above: Performed By: #### C DP, BMP #### [address] [address] Warehouse Distribution Manager: Alexey Green MD Calcium, Ionicon 07-25-2023 Calcium [Moles/Vol] 1.20 mmol/L Normal 1.13-1.33 [facility] Comment on above: Performed By: #### B MPX #### [address] [address] Warehouse Distribution Manager: Alexey Green MD Calcium [Moles/Vol] 1.20 mmol/L Normal 1.13-1.33 [facility] Comment on above: Performed By: #### U MICAO, UA #### [address] [address] Warehouse Distribution Manager: Alexey Green MD Hgb/Hcton 07-25-2023 Hematocrit (Bld) [Volume fraction] 33.2 % Low 36.3-47.1 [facility] Comment on above: Performed By: #### U RNA, URTP, URCRE, UEOS #### [address] [address] Warehouse Distribution Manager: Alexey Green MD Performed By: #### H H #### [address] [address] Warehouse Distribution Manager: Alexey Green MD Hemoglobin (Bld) [Mass/Vol] 9.4 g/dL Low 11.9-15.1 [facility] Comment on above: Performed By: #### U RNA, URTP, URCRE, UEOS #### [address] [address] Warehouse Distribution Manager: Alexey Green MD Performed By: #### H H #### [address] [address] Warehouse Distribution Manager: Alexey Green MD Hematocrit (Bld) [Volume fraction] 26.7 % Low 36.3-47.1 [facility] Comment on above: Performed By: #### U RNA, URTP, URCRE, UEOS #### [address] [address] Warehouse Distribution Manager: Alexey Green MD Hemoglobin (Bld) [Mass/Vol] 7.6 g/dL Low 11.9-15.1 [facility] Comment on above: Performed By: #### U RNA, URTP, URCRE, UEOS #### [address] [address] Warehouse Distribution Manager: Alexey Green MD Hematocrit (Bld) [Volume fraction] 26.7 % Low 36.3-47.1 [facility] Comment on above: Performed By: #### C DP #### [address] [address] Warehouse Distribution Manager: Alexey Green MD Hemoglobin (Bld) [Mass/Vol] 7.6 g/dL Low 11.9-15.1 [facility] Comment on above: Performed By: #### C DP #### [address] [address] Warehouse Distribution Manager: Alexey Green MD Urinalysis, Routineon 2023 Bilirubin, SemiQt,Ur Negative Normal NEG [facility] Comment on above: Performed By: #### U MICAO, UA #### [address] [address] Warehouse Distribution Manager: Alexey Green MD Blood, Urine Negative Normal NEG [facility] Comment on above: Performed By: #### U MICAO, UA #### [address] [address] Warehouse Distribution Manager: Alexey Green MD Clarity (U) Clear Normal CLEAR [facility] Comment on above: Performed By: #### U MICAO, UA #### [address] [phone] Warehouse Distribution Manager: Alexey Green MD Color (U) Yellow Normal YEL [facility] Comment on above: Performed By: #### U MICAO, UA #### [address] [phone] Warehouse Distribution Manager: Alexey Green MD Glucose Ql (U) Negative Normal NEG [facility] Comment on above: Performed By: #### U MICAO, UA #### [facility] [address] [place] [address] Warehouse Distribution Manager: Alexey Green MD Ketones Ql (U) Negative Normal NEG [facility] Comment on above: Performed By: #### U MICAO, UA #### [facility] [address] [place] [address] Warehouse Distribution Manager: Alexey Green MD Leukocyte esterase Test strip Ql (U) MODERATE Abnormal NEG [facility] Comment on above: Performed By: #### U MICAO, UA #### [facility] [address] [place] [address] Warehouse Distribution Manager: Alexey Green MD Nitrite,Ur Negative Normal NEG [facility] Comment on above: Performed By: #### U MICAO, UA #### [facility] [address] [place] [address] Warehouse Distribution Manager: Alexey Green MD PH,Ur 5.0 Normal 5.0-8.0 [facility] Comment on above: Performed By: #### U MICAO, UA #### [facility] [address] [place] [address] Warehouse Distribution Manager: Alexey Green MD Protein Ql (U) 1+ mg/dL Abnormal NEG [facility] Comment on above: Performed By: #### U MICAO, UA #### [facility] [address] [place] [address] Warehouse Distribution Manager: Alexey Green MD Spec. [place],Ur 1.025 Normal 1.005-1.[address] [facility] Comment on above: Performed By: #### U MICAO, UA #### [facility] [address] [place] [address] Warehouse Distribution Manager: Alexey Green MD Urobilinogen,Ur Normal Normal 0.0-1.0 [facility] Comment on above: Performed By: #### U MICAO, UA #### [facility] [address] [place] [address] Warehouse Distribution Manager: Alexey Green MD Bilirubin, SemiQt,Ur Negative Normal NEG [facility] Comment on above: Performed By: #### U MICAO, UA #### [address] [address] Warehouse Distribution Manager: Alexey Green MD Blood, Urine Negative Normal NEG [facility] Comment on above: Performed By: #### U MICAO, UA #### [address] [address] Warehouse Distribution Manager: Alexey Green MD Clarity (U) Clear Normal CLEAR [facility] Comment on above: Performed By: #### U MICAO, UA #### [address] [address] Warehouse Distribution Manager: Alexey Green MD Color (U) Yellow Normal YEL [facility] Comment on above: Performed By: #### U MICAO, UA #### [address] [address] Warehouse Distribution Manager: Alexey Green MD Glucose Ql (U) Negative Normal NEG [facility] Comment on above: Performed By: #### U MICAO, UA #### [facility] [address] [place] [address] Warehouse Distribution Manager: Alexey Green MD Ketones Ql (U) Negative Normal NEG [facility] Comment on above: Performed By: #### U MICAO, UA #### [address] [address] Warehouse Distribution Manager: Alexey Green MD Leukocyte esterase Test strip Ql (U) MODERATE Abnormal NEG [facility] Comment on above: Performed By: #### U MICAO, UA #### [facility] [address] [place] [address] Warehouse Distribution Manager: Alexey Green MD Nitrite,Ur Negative Normal NEG [facility] Comment on above: Performed By: #### U MICAO, UA #### [facility] [address] [place] [address] Warehouse Distribution Manager: Alexey Green MD PH,Ur 5.0 Normal 5.0-8.0 [facility] Comment on above: Performed By: #### U MICAO, UA #### [facility] [address] [place] [address] Warehouse Distribution Manager: Alexey Green MD Protein Ql (U) 1+ mg/dL Abnormal NEG [facility] Comment on above: Performed By: #### U MICAO, UA #### [address] [address] Warehouse Distribution Manager: Alexey Green MD Spec. [place],Ur 1.025 Normal 1.005-1.[address] [facility] Comment on above: Performed By: #### U MICAO, UA #### [address] [address] Warehouse Distribution Manager: Alexey Green MD Urobilinogen,Ur Normal Normal 0.0-1.0 [facility] Comment on above: Performed By: #### U MICAO, UA #### [address] [address] Warehouse Distribution Manager: Alexey Green MD Urinalysis,Microon 4 Bacteria None Normal NONE [facility] Comment on above: Performed By: #### U MICAO, UA #### [address] [address] Warehouse Distribution Manager: Alexey Green MD Casts None Normal 0-8 [facility] Comment on above: Result Comment: Refe rence range defined for non-centrifuged specimen. Performed By: #### U MICAO, UA #### [address] [address] Warehouse Distribution Manager: Alexey Green MD Epithelial cells LM Ql (Urine sed) 2 TO 5 Normal 0-5 [facility] Comment on above: Performed By: #### U MICAO, UA #### [address] [address] Warehouse Distribution Manager: Alexey Green MD Urine RBC's 2 TO 5 Normal 0-4 [facility] Comment on above: Result Comment: Refe rence range defined for non-centrifuged specimen. Performed By: #### U MICAO, UA #### [address] [address] Warehouse Distribution Manager: Alexey Green MD Urine WBC's 20 TO 50 Normal 0-5 [facility] Comment on above: Performed By: #### U MICAO, UA #### [address] [address] Warehouse Distribution Manager: Alexey Green MD Bacteria None Normal NONE [facility] Comment on above: Performed By: #### U MICAO, UA #### [address] [address] Warehouse Distribution Manager: Alexey Green MD Casts None Normal 0-8 [facility] Comment on above: Result Comment: Refe rence range defined for non-centrifuged specimen. Performed By: #### U MICAO, UA #### [address] [address] Warehouse Distribution Manager: Alexey Green MD Epithelial cells LM Ql (Urine sed) 2 TO 5 Normal 0-5 [facility] Comment on above: Performed By: #### U MICAO, UA #### [address] [address] Warehouse Distribution Manager: Alexey Green MD Urine RBC's 2 TO 5 Normal 0-4 [facility] Comment on above: Result Comment: Refe rence range defined for non-centrifuged specimen. Performed By: #### U MICAO, UA #### [address] [address] Warehouse Distribution Manager: Alexey Green MD Urine WBC's 20 TO 50 Normal 0-5 [facility] Comment on above: Performed By: #### U MICAO, UA #### [address] [address] Warehouse Distribution Manager: Alexey Green MD Basic Metabolic Profon 07-23 Anion gap [Moles/Vol] 8 mmol/L Low 9-16 [facility] Comment on above: Performed By: #### U RNA, URTP, URCRE, UEOS #### [address] [address] Warehouse Distribution Manager: Alexey Green MD Calcium [Mass/Vol] 8.3 mg/dL Low 8.6-10.4 [facility] Comment on above: Performed By: #### U RNA, URTP, URCRE, UEOS #### [address] [address] Warehouse Distribution Manager: Alexey Green MD Chloride [Moles/Vol] 110 mmol/L High 98-107 [facility] Comment on above: Performed By: #### U RNA, URTP, URCRE, UEOS #### [address] [address] Warehouse Distribution Manager: Alexey Green MD CO2 [Moles/Vol] 22 mmol/L Normal 20-31 [facility] Comment on above: Performed By: #### U RNA, URTP, URCRE, UEOS #### [address] [address] Warehouse Distribution Manager: Alexey Green MD Creatinine [Mass/Vol] 2.0 mg/dL High 0.50-0.90 [facility] Comment on above: Performed By: #### U RNA, URTP, URCRE, UEOS #### [address] [address] Warehouse Distribution Manager: Alexey Green MD GFR/1.73 sq M.predicted among non-blacks MDRD (S/P/Bld) [Vol rate/Area] 24 mL/min/{1.73_m2} Low >60 [facility] Comment on above: Result Comment: These results are not intended for use in patients <18 years of age. eGFR results are calculated without a race factor using the 2020 CKD-EPI equation. Careful clinical correlation is recommended, particularly when comparing to results calculated using previous equations. The CKD-EPI equation is less accurate in patients with extremes of muscle mass, extra-renal metabolism of creatine, excessive creatine ingestion, or following therapy that affects renal tubular secretion. Performed By: #### U RNA, URTP, URCRE, UEOS #### [facility] [address] [place] [address] Warehouse Distribution Manager: Alexey Green MD Glucose [Mass/Vol] 108 mg/dL High 74-99 [facility] Comment on above: Performed By: #### U RNA, URTP, URCRE, UEOS #### [facility] [address] [place] [address] Warehouse Distribution Manager: Alexey Green MD Potassium [Moles/Vol] 5.0 mmol/L Normal 3.7-5.3 [facility] Comment on above: Result Comment: SPEC IMEN SLIGHTLY HEMOLYZED, RESULTS MAY BE ADVERSELY AFFECTED. Performed By: #### U RNA, URTP, URCRE, UEOS #### [facility] [address] [place] [phone] Warehouse Distribution Manager: Alexey Green MD Sodium [Moles/Vol] 140 mmol/L Normal 136-145 [facility] Comment on above: Performed By: #### U RNA, URTP, URCRE, UEOS #### [facility] [address] [place] [address] Warehouse Distribution Manager: Alexey Green MD Urea nitrogen [Mass/Vol] 41 mg/dL High 8-23 [facility] Comment on above: Performed By: #### U RNA, URTP, URCRE, UEOS #### [facility] [address] [place] [address] Warehouse Distribution Manager: Alexey Green MD Anion gap [Moles/Vol] 8 mmol/L Low 9-16 [facility] Comment on above: Performed By: #### U ZACARIAS UA #### [facility] [address] [place] [address] Warehouse Distribution Manager: Alexey Green MD Calcium [Mass/Vol] 8.3 mg/dL Low 8.6-10.4 [facility] Comment on above: Performed By: #### U ZACARIAS UA #### [facility] [address] [place] [address] Warehouse Distribution Manager: Alexey Green MD Chloride [Moles/Vol] 110 mmol/L High 98-107 [facility] Comment on above: Performed By: #### U KURTISO UA #### [facility] [address] [place] [address] Warehouse Distribution Manager: Alexey Green MD CO2 [Moles/Vol] 22 mmol/L Normal 20-31 [facility] Comment on above: Performed By: #### U KURTISO, UA #### [facility] [address] [place] [address] Warehouse Distribution Manager: Alexey Green MD Creatinine [Mass/Vol] 2.0 mg/dL High 0.50-0.90 [facility] Comment on above: Performed By: #### U KURTISO, UA #### [facility] [address] [place] [address] [phone] Warehouse Distribution Manager: Alexey Green MD GFR/1.73 sq M.predicted among non-blacks MDRD (S/P/Bld) [Vol rate/Area] 24 mL/min/{1.73_m2} Low >60 [facility] Comment on above: Result Comment: These results are not intended for use in patients <18 years of age. eGFR results are calculated without a race factor using the 2020 CKD-EPI equation. Careful clinical correlation is recommended, particularly when comparing to results calculated using previous equations. The CKD-EPI equation is less accurate in patients with extremes of muscle mass, extra-renal metabolism of creatine, excessive creatine ingestion, or following therapy that affects renal tubular secretion. Performed By: #### U KURTISO UA #### [facility] [address] [address] Warehouse Distribution Manager: Alexey Green MD Glucose [Mass/Vol] 108 mg/dL High 74-99 [facility] Comment on above: Performed By: #### U ZACARIAS UA #### [address] [address] Warehouse Distribution Manager: Alexey Green MD Potassium [Moles/Vol] 5.0 mmol/L Normal 3.7-5.3 [facility] Comment on above: Result Comment: SPEC IMEN SLIGHTLY HEMOLYZED, RESULTS MAY BE ADVERSELY AFFECTED. Performed By: #### U MICAO, UA #### [employer] [address] [place] [address] Warehouse Distribution Manager: Alexey Green MD Sodium [Moles/Vol] 140 mmol/L Normal 136-145 [facility] Comment on above: Performed By: #### U KURTISO, UA #### [employer] [address] [place] [address] Warehouse Distribution Manager: Alexey Green MD Urea nitrogen [Mass/Vol] 41 mg/dL High 8-23 [facility] Comment on above: Performed By: #### U MICAO, UA #### [address] [address] Warehouse Distribution Manager: Alexey Green MD CBC with Diffon 07-24-2023 Abs. Basophil 0.04 k/uL Normal 0.00-0.20 [facility] Comment on above: Performed By: #### C DP #### [address] [address] Warehouse Distribution Manager: Alexey Green MD Abs.Imm.Granulocyte 0.03 k/uL Normal 0.00-0.30 [facility] Comment on above: Performed By: #### C DP #### [address] [address] Warehouse Distribution Manager: Alexey Green MD Abs.Neutrophil (Seg) 4.06 k/uL Normal 1.50-8.10 [facility] Comment on above: Performed By: #### C DP #### [address] [address] Warehouse Distribution Manager: Alexey Green MD Basophils/100 WBC (Bld) 0 % Normal 0-2 [facility] Comment on above: Performed By: #### C DP #### [address] [address] Warehouse Distribution Manager: Alexey Green MD Eosinophils (Bld) [#/Vol] 0.37 10*3/uL Normal 0.00-0.44 [facility] Comment on above: Performed By: #### C DP #### [address] [address] Warehouse Distribution Manager: Alexey Green MD Eosinophils/100 WBC (Bld) 4 % Normal 1-4 [facility] Comment on above: Performed By: #### C DP #### [address] [address] Warehouse Distribution Manager: Alexey Green MD Erythrocyte distribution width (RBC) [Ratio] 13.5 % Normal 11.8-14.4 [facility] Comment on above: Performed By: #### C DP #### [address] [address] Warehouse Distribution Manager: Alexey Green MD Hematocrit (Bld) [Volume fraction] 32.8 % Low 36.3-47.1 [facility] Comment on above: Performed By: #### C DP #### [place] [address] Warehouse Distribution Manager: Alexey Green MD Hemoglobin (Bld) [Mass/Vol] 9.4 g/dL Low 11.9-15.1 [facility] Comment on above: Performed By: #### C DP #### [place] [address] Warehouse Distribution Manager: Alxeey Green MD Immature granulocytes/100 WBC (Bld) 0 % Normal 0 [facility] Comment on above: Performed By: #### C DP #### [address] [address] Warehouse Distribution Manager: Alexey Green MD Lymphocytes (Bld) [#/Vol] 4.07 10*3/uL High 1.10-3.70 [facility] Comment on above: Performed By: #### C DP #### [address] [address] Warehouse Distribution Manager: Alexey Green MD Lymphocytes/100 WBC (Bld) 42 % Normal 24-43 [facility] Comment on above: Performed By: #### C DP #### [address] [address] Warehouse Distribution Manager: Alexey Green MD MCH (RBC) [Entitic mass] 31.1 pg Normal 25.2-33.5 [facility] Comment on above: Performed By: #### C DP #### [address] [address] Warehouse Distribution Manager: Alexey Green MD MCHC (RBC) [Mass/Vol] 28.7 g/dL Normal 28.4-34.8 [facility] Comment on above: Performed By: #### C DP #### [address] [address] Warehouse Distribution Manager: Alexey Green MD MCV (RBC) [Entitic vol] 108.6 fL High 82.6-102.9 [facility] Comment on above: Performed By: #### C DP #### [address] [address] Warehouse Distribution Manager: Alexey Green MD Monocytes (Bld) [#/Vol] 1.24 10*3/uL High 0.10-1.20 [facility] Comment on above: Performed By: #### C DP #### [address] [address] Warehouse Distribution Manager: Alexey Green MD Monocytes/100 WBC (Bld) 13 % High 3-12 [facility] Comment on above: Performed By: #### C DP #### [address] [address] Warehouse Distribution Manager: Alexey Green MD Neutrophil (Seg) 41 % Normal 36-65 [facility] Comment on above: Performed By: #### C DP #### [address] [address] Warehouse Distribution Manager: Alexey Green MD NRBC Automated 0.0 per 100 WBC Normal 0.0 [facility] Comment on above: Performed By: #### C DP #### [place] [address] Warehouse Distribution Manager: Alexey Green MD Platelet mean volume (Bld) [Entitic vol] 11.6 fL Normal 8.1-13.5 [facility] Comment on above: Performed By: #### C DP #### [address] [address] Warehouse Distribution Manager: Alexey Green MD Platelets (Bld) [#/Vol] 168 10*3/uL Normal 138-453 [facility] Comment on above: Performed By: #### C DP #### [address] [address] Warehouse Distribution Manager: Alexey Green MD RBC (Bld) [#/Vol] 3.02 10*6/uL Low 3.95-5.11 [facility] Comment on above: Performed By: #### C DP #### [address] [address] Warehouse Distribution Manager: Alexey Green MD RBC morphology finding Nom (Bld) MACROCYTOSIS PRESENT Normal [facility] Comment on above: Performed By: #### C DP #### [address] [address] Warehouse Distribution Manager: Alexey Green MD WBC (Bld) [#/Vol] 9.8 10*3/uL Normal 3.5-11.3 [facility] Comment on above: Performed By: #### C DP #### [address] [address] Warehouse Distribution Manager: Alexey Green MD Abs. Basophil 0.04 k/uL Normal 0.00-0.20 [facility] Comment on above: Performed By: #### C DP #### [address] [address] Warehouse Distribution Manager: Alexey Green MD Abs.Imm.Granulocyte 0.03 k/uL Normal 0.00-0.30 [facility] Comment on above: Performed By: #### C DP #### [address] [address] Warehouse Distribution Manager: Alexey Green MD Abs.Neutrophil (Seg) 4.06 k/uL Normal 1.50-8.10 [facility] Comment on above: Performed By: #### C DP #### [address] [address] Warehouse Distribution Manager: Alexey Green MD Basophils/100 WBC (Bld) 0 % Normal 0-2 [facility] Comment on above: Performed By: #### C DP #### [address] [address] Warehouse Distribution Manager: Alexey Green MD Eosinophils (Bld) [#/Vol] 0.37 10*3/uL Normal 0.00-0.44 [facility] Comment on above: Performed By: #### C DP #### [address] [address] Warehouse Distribution Manager: Alexey Green MD Eosinophils/100 WBC (Bld) 4 % Normal 1-4 [facility] Comment on above: Performed By: #### C DP #### [address] [address] Warehouse Distribution Manager: Alexey Green MD Erythrocyte distribution width (RBC) [Ratio] 13.5 % Normal 11.8-14.4 [facility] Comment on above: Performed By: #### C DP #### [address] [address] Warehouse Distribution Manager: Alexey Green MD Hematocrit (Bld) [Volume fraction] 32.8 % Low 36.3-47.1 [facility] Comment on above: Performed By: #### C DP #### [address] [address] Warehouse Distribution Manager: Alexey Green MD Hemoglobin (Bld) [Mass/Vol] 9.4 g/dL Low 11.9-15.1 [facility] Comment on above: Performed By: #### C DP #### [address] [address] Warehouse Distribution Manager: Alexey Green MD Immature granulocytes/100 WBC (Bld) 0 % Normal 0 [facility] Comment on above: Performed By: #### C DP #### [address] [address] Warehouse Distribution Manager: Alexey Green MD Lymphocytes (Bld) [#/Vol] 4.07 10*3/uL High 1.10-3.70 [facility] Comment on above: Performed By: #### C DP #### [address] [address] Warehouse Distribution Manager: Alexey Green MD Lymphocytes/100 WBC (Bld) 42 % Normal 24-43 [facility] Comment on above: Performed By: #### C DP #### [address] [address] Warehouse Distribution Manager: Alexey Green MD MCH (RBC) [Entitic mass] 31.1 pg Normal 25.2-33.5 [facility] Comment on above: Performed By: #### C DP #### [address] [address] Warehouse Distribution Manager: Alxeey Green MD MCHC (RBC) [Mass/Vol] 28.7 g/dL Normal 28.4-34.8 [facility] Comment on above: Performed By: #### C DP #### [address] [address] Warehouse Distribution Manager: Alexey Green MD MCV (RBC) [Entitic vol] 108.6 fL High 82.6-102.9 [facility] Comment on above: Performed By: #### C DP #### [address] [address] Warehouse Distribution Manager: Alexey Green MD Monocytes (Bld) [#/Vol] 1.24 10*3/uL High 0.10-1.20 [facility] Comment on above: Performed By: #### C DP #### [address] [address] Warehouse Distribution Manager: Alexey Green MD Monocytes/100 WBC (Bld) 13 % High 3-12 [facility] Comment on above: Performed By: #### C DP #### [address] [address] Warehouse Distribution Manager: Alexey Green MD Neutrophil (Seg) 41 % Normal 36-65 [facility] Comment on above: Performed By: #### C DP #### [address] [address] Warehouse Distribution Manager: Alexey Green MD NRBC Automated 0.0 per 100 WBC Normal 0.0 [facility] Comment on above: Performed By: #### C DP #### [address] [address] Warehouse Distribution Manager: Alexey Green MD Platelet mean volume (Bld) [Entitic vol] 11.6 fL Normal 8.1-13.5 [facility] Comment on above: Performed By: #### C DP #### [address] [address] Warehouse Distribution Manager: Alexey Green MD Platelets (Bld) [#/Vol] 168 10*3/uL Normal 138-453 [facility] Comment on above: Performed By: #### C DP #### [address] [address] Warehouse Distribution Manager: Alexey Green MD RBC (Bld) [#/Vol] 3.02 10*6/uL Low 3.95-5.11 [facility] Comment on above: Performed By: #### C DP #### [id number] [place] [address] Warehouse Distribution Manager: Alexey Green MD RBC morphology finding Nom (Bld) MACROCYTOSIS PRESENT Normal [facility] Comment on above: Performed By: #### C DP #### [facility] [place] [address] Warehouse Distribution Manager: Alexey Green MD WBC (Bld) [#/Vol] 9.8 10*3/uL Normal 3.5-11.3 [facility] Comment on above: Performed By: #### C DP #### [address] [address] Warehouse Distribution Manager: Alexey Green MD FLUORO FOR SURGICAL PROCEDUR ESon 07-24-2023 FLUORO FOR SURGICAL PROCEDURES Radiology exam is complete. No Radiologist dictation. Please follow up with ordering provider. Final result Normal [facility] FLUORO FOR SURGICAL PROCEDURES Radiology exam is complete. No Radiologist dictation. Please follow up with ordering provider. Final result Normal [facility] Glucose,Whole Bloodon 2023 Glucose [Mass/Vol] 102 mg/dL Normal 65-105 [facility] Glucose [Mass/Vol] 102 mg/dL Normal 65-105 [facility] Hgb/Hcton 07-24-2023 Hematocrit (Bld) [Volume fraction] 36.4 % Normal 36.3-47.1 [facility] Comment on above: Performed By: #### B MPX #### [id number] [place] [address] Warehouse Distribution Manager: Alexey Green MD Hemoglobin (Bld) [Mass/Vol] 10.6 g/dL Low 11.9-15.1 [facility] Comment on above: Performed By: #### B MPX #### [address] [address] Warehouse Distribution Manager: Alexey Green MD Hematocrit (Bld) [Volume fraction] 36.4 % Normal 36.3-47.1 [facility] Comment on above: Performed By: #### C DP, BMP #### [address] [id number] Warehouse Distribution Manager: Alexey Green MD Hemoglobin (Bld) [Mass/Vol] 10.6 g/dL Low 11.9-15.1 [facility] Comment on above: Performed By: #### C DP, BMP #### [address] [address] Warehouse Distribution Manager: Alexey Green MD Type + Screenon 07-24-2023 Type + Screen Sample Expiration 07/26/2023,2359 Arm Band Number [id number] ABO/Rh(D) A POSITIVE Antibody Screen NEGATIVE Unit Number [id number] Blood Component Type Leukocyte Reduced Red Cell Unit Division 00 Status of Unit TRANSFUSED Transfusion Status OK TO TRANSFUSE Crossmatch Result COMPATIBLE Normal [facility] Comment on above: Performed By: #### U RNA, URTP, URCRE, UEOS #### [address] [id number] Warehouse Distribution Manager: Alexey Green MD Type + Screen Sample Expiration 07/26/2023,2359 Arm Band Number [id number] ABO/Rh(D) A POSITIVE Antibody Screen NEGATIVE Unit Number [id number] Blood Component Type Leukocyte Reduced Red Cell Unit Division 00 Status of Unit TRANSFUSED Transfusion Status OK TO TRANSFUSE Crossmatch Result COMPATIBLE Normal [facility] Comment on above: Performed By: #### U MICAO, UA #### [address] [address] Warehouse Distribution Manager: Alexey Green MD XR FEMUR LEFT (MIN 2 VIEWS)o n 07-24-2023 XR FEMUR LEFT (MIN 2 VIEWS) EXAMINATION: 2 XRAY VIEWS OF THE LEFT FEMUR 07/24/2023 3:28 pm COMPARISON: Left femur radiograph series 07/23/2023 at 1:52 p.m. HISTORY: ORDERING SYSTEM PROVIDED HISTORY: post op in PACU TECHNOLOGIST PROVIDED HISTORY: post op in PACU ORIF intertrochanteric fracture proximal left femur. FINDINGS: *5 images are presented. *Status post dynamic hip pinning for ORIF proximal left femur fracture with intramedullary torres secured distally with 2 screws. *Orthopedic cement demonstrated at the femoral head. *Surgical skin closure maggie are demonstrated about the knee. *No unexpected retained radiopaque foreign body. IMPRESSION: 1. Status post dynamic hip pinning for ORIF proximal left femur fracture with intramedullary torres secured distally with 2 screws. 2. Orthopedic cement demonstrated at the femoral head. 3. No unexpected retained radiopaque foreign body. 4. Correlate with surgical report. Interpreted by: Will Ramirez MD Signed by: Will Ramirez MD 07/24/23 Final result Normal [facility] XR FEMUR LEFT (MIN 2 VIEWS) EXAMINATION: 2 XRAY VIEWS OF THE LEFT FEMUR 07/24/2023 3:28 pm COMPARISON: Left femur radiograph series 07/23/2023 at 1:52 p.m. HISTORY: ORDERING SYSTEM PROVIDED HISTORY: post op in PACU TECHNOLOGIST PROVIDED HISTORY: post op in PACU ORIF intertrochanteric fracture proximal left femur. FINDINGS: *5 images are presented. *Status post dynamic hip pinning for ORIF proximal left femur fracture with intramedullary torres secured distally with 2 screws. *Orthopedic cement demonstrated at the femoral head. *Surgical skin closure maggie are demonstrated about the knee. *No unexpected retained radiopaque foreign body. IMPRESSION: 1. Status post dynamic hip pinning for ORIF proximal left femur fracture with intramedullary torres secured distally with 2 screws. 2. Orthopedic cement demonstrated at the femoral head. 3. No unexpected retained radiopaque foreign body. 4. Correlate with surgical report. Interpreted by: Will Ramirez MD Signed by: Will Ramirez MD 07/24/23 Final result Normal [facility] Albuminon 07-23-2023 Albumin [Mass/Vol] 3.6 g/dL Normal 3.5-5.2 [facility] Comment on above: Performed By: #### U RNA, URTP, URCRE, UEOS #### [facility] [address] [place], [place] [id number] Warehouse Distribution Manager: Alexey Green MD Albumin [Mass/Vol] 3.6 g/dL Normal 3.5-5.2 [facility] Comment on above: Performed By: #### U MICAO, UA #### [facility] [address] [place], [place] [id number] Warehouse Distribution Manager: Alexey Green MD CT CERVICAL SPINE WO CONTRAS Ton 07-23-2023 CT CERVICAL SPINE WO CONTRAST EXAMINATION: CT OF THE CERVICAL SPINE WITHOUT CONTRAST 07/23/2023 1:02 pm TECHNIQUE: CT of the cervical spine was performed without the administration of intravenous contrast. Multiplanar reformatted images are provided for review. Automated exposure control, iterative reconstruction, and/or weight based adjustment of the mA/kV was utilized to reduce the radiation dose to as low as reasonably achievable. COMPARISON: None. HISTORY: ORDERING SYSTEM PROVIDED HISTORY: trauma TECHNOLOGIST PROVIDED HISTORY: trauma Reason for Exam: trauma fall FINDINGS: BONES/ALIGNMENT: There is no acute fracture or traumatic malalignment. DEGENERATIVE CHANGES: No significant degenerative changes. SOFT TISSUES: There is no prevertebral soft tissue swelling. IMPRESSION: No acute abnormality of the cervical spine. Interpreted by: Wilber Robertson MD Signed by: Wilber Robertson MD 07/23/23 Final result Normal [facility] CT CERVICAL SPINE WO CONTRAST EXAMINATION: CT OF THE CERVICAL SPINE WITHOUT CONTRAST 07/23/2023 1:02 pm TECHNIQUE: CT of the cervical spine was performed without the administration of intravenous contrast. Multiplanar reformatted images are provided for review. Automated exposure control, iterative reconstruction, and/or weight based adjustment of the mA/kV was utilized to reduce the radiation dose to as low as reasonably achievable. COMPARISON: None. HISTORY: ORDERING SYSTEM PROVIDED HISTORY: trauma TECHNOLOGIST PROVIDED HISTORY: trauma Reason for Exam: trauma fall FINDINGS: BONES/ALIGNMENT: There is no acute fracture or traumatic malalignment. DEGENERATIVE CHANGES: No significant degenerative changes. SOFT TISSUES: There is no prevertebral soft tissue swelling. IMPRESSION: No acute abnormality of the cervical spine. Interpreted by: Wilber Robertson MD Signed by: Wilber Robertson MD 07/23/23 Final result Normal [facility] CT CHEST ABDOMEN PELVIS W CO NTRASTon 07-23-2023 CT CHEST ABDOMEN PELVIS W CONTRAST EXAMINATION: CT OF THE CHEST, ABDOMEN, AND PELVIS WITH CONTRAST 07/23/2023 1:02 pm TECHNIQUE: CT of the chest, abdomen and pelvis was performed with the administration of intravenous contrast. Multiplanar reformatted images are provided for review. Automated exposure control, iterative reconstruction, and/or weight based adjustment of the mA/kV was utilized to reduce the radiation dose to as low as reasonably achievable. COMPARISON: None HISTORY: ORDERING SYSTEM PROVIDED HISTORY: trauma TECHNOLOGIST PROVIDED HISTORY: trauma Reason for Exam: trauma fall FINDINGS: Chest: Mediastinum: Left-sided pacemaker leads are at the right atrium and right ventricle with additional epicardial lead. Mild cardiomegaly. No pericardial effusion. Mild calcific atherosclerosis coronary arteries. Other great vessels appear unremarkable. No adenopathy. Lungs/pleura: No pleural effusion or pneumothorax. Minimal senescent pulmonary changes. Nonspecific 7 x 9 mm soft tissue pulmonary nodule posterior right middle lobe (axial series 5, image 85). Lingular mixed calcific and soft tissue pulmonary nodule is 12 x 19 mm axial image 82, almost certainly benign, no follow-up imaging indicated. Other portions of the lungs appear unremarkable. No inspissated secretions or endobronchial lesion evident. Soft Tissues/Bones: No acute superficial soft tissue or osseous structure abnormality evident. T10 superior endplate Schmorl's node reflecting sequela of degenerative disc disease. Abdomen/Pelvis: Organs: Normal attenuation throughout the liver. No discrete hepatic lesion or intrahepatic bile duct dilatation is seen. The gallbladder, kidneys, spleen, adrenal glands and pancreas appear unremarkable. GI/Bowel: The stomach and small bowel appear unremarkable. No diffuse or focal small bowel wall thickening or inflammatory changes evident. No obstruction is seen. The appendix is not seen, possibly prior appendectomy. There are a few scattered colonic diverticula without definite inflammatory changes associated. The colon appears otherwise unremarkable. Pelvis: Partially filled urinary bladder appears unremarkable. No pelvic adenopathy or free fluid is seen. Vascular calcifications are noted reflecting calcific atherosclerosis. Peritoneum/Retroperitoneum: No pneumoperitoneum. Calcific atherosclerotic disease aorta. No aneurysm. Unremarkable appearance of the IVC. No adenopathy or fluid. Bones/Soft Tissues: Acute, mildly impacted intertrochanteric fracture proximal left femur. Old healed fractures left superior and inferior pubic rami. Superficial soft tissue structures about the abdomen and pelvis appear unremarkable with exception reactive fluid about left femur fracture. IMPRESSION: 1. CT CHEST: No acute traumatic abnormality. 2. Solid pulmonary nodule right middle lobe measuring 8 mm. Per Fleischner Society Guidelines, recommend a non-contrast Chest CT at 6-12 months.* 3. No acute pulmonary disease. 4. Senescent pulmonary changes. 5. CT ABDOMEN/PELVIS: Acute, mildly impacted intertrochanteric fracture proximal left femur. 6. No acute intra-abdominal/pelvic traumatic abnormality. 7. No CT evidence of an acute intra-abdominal or intrapelvic process. 8. Mild diverticulosis coli without CT evidence of acute diverticulitis. ____ * Per Fleischner Society Guidelines, recommend a non-contrast Chest CT at 6-12 months. If patient is high risk for malignancy, consider an additional non-contrast Chest CT at 18-24 months. If patient is low risk for malignancy, non-contrast Chest CT at 18-24 months is optional. These guidelines do not apply to immunocompromised patients and patients with cancer. Follow up in patients with significant comorbidities as clinically warranted. For lung cancer screening, adhere to Lung-RADS guidelines. Reference: Radiology. 2017; 284(1):228-43. RECOMMENDATIONS: non-contrast chest CT at 6-12 months Interpreted by: Will Ramirez MD Signed by: Will Ramirez MD 07/23/23 Final result Normal [facility] CT CHEST ABDOMEN PELVIS W CONTRAST EXAMINATION: CT OF THE CHEST, ABDOMEN, AND PELVIS WITH CONTRAST 07/23/2023 1:02 pm TECHNIQUE: CT of the chest, abdomen and pelvis was performed with the administration of intravenous contrast. Multiplanar reformatted images are provided for review. Automated exposure control, iterative reconstruction, and/or weight based adjustment of the mA/kV was utilized to reduce the radiation dose to as low as reasonably achievable. COMPARISON: None HISTORY: ORDERING SYSTEM PROVIDED HISTORY: trauma TECHNOLOGIST PROVIDED HISTORY: trauma Reason for Exam: trauma fall FINDINGS: Chest: Mediastinum: Left-sided pacemaker leads are at the right atrium and right ventricle with additional epicardial lead. Mild cardiomegaly. No pericardial effusion. Mild calcific atherosclerosis coronary arteries. Other great vessels appear unremarkable. No adenopathy. Lungs/pleura: No pleural effusion or pneumothorax. Minimal senescent pulmonary changes. Nonspecific 7 x 9 mm soft tissue pulmonary nodule posterior right middle lobe (axial series 5, image 85). Lingular mixed calcific and soft tissue pulmonary nodule is 12 x 19 mm axial image 82, almost certainly benign, no follow-up imaging indicated. Other portions of the lungs appear unremarkable. No inspissated secretions or endobronchial lesion evident. Soft Tissues/Bones: No acute superficial soft tissue or osseous structure abnormality evident. T10 superior endplate Schmorl's node reflecting sequela of degenerative disc disease. Abdomen/Pelvis: Organs: Normal attenuation throughout the liver. No discrete hepatic lesion or intrahepatic bile duct dilatation is seen. The gallbladder, kidneys, spleen, adrenal glands and pancreas appear unremarkable. GI/Bowel: The stomach and small bowel appear unremarkable. No diffuse or focal small bowel wall thickening or inflammatory changes evident. No obstruction is seen. The appendix is not seen, possibly prior appendectomy. There are a few scattered colonic diverticula without definite inflammatory changes associated. The colon appears otherwise unremarkable. Pelvis: Partially filled urinary bladder appears unremarkable. No pelvic adenopathy or free fluid is seen. Vascular calcifications are noted reflecting calcific atherosclerosis. Peritoneum/Retroperitoneum: No pneumoperitoneum. Calcific atherosclerotic disease aorta. No aneurysm. Unremarkable appearance of the IVC. No adenopathy or fluid. Bones/Soft Tissues: Acute, mildly impacted intertrochanteric fracture proximal left femur. Old healed fractures left superior and inferior pubic rami. Superficial soft tissue structures about the abdomen and pelvis appear unremarkable with exception reactive fluid about left femur fracture. IMPRESSION: 1. CT CHEST: No acute traumatic abnormality. 2. Solid pulmonary nodule right middle lobe measuring 8 mm. Per Fleischner Society Guidelines, recommend a non-contrast Chest CT at 6-12 months.* 3. No acute pulmonary disease. 4. Senescent pulmonary changes. 5. CT ABDOMEN/PELVIS: Acute, mildly impacted intertrochanteric fracture proximal left femur. 6. No acute intra-abdominal/pelvic traumatic abnormality. 7. No CT evidence of an acute intra-abdominal or intrapelvic process. 8. Mild diverticulosis coli without CT evidence of acute diverticulitis. ____ * Per Fleischner Society Guidelines, recommend a non-contrast Chest CT at 6-12 months. If patient is high risk for malignancy, consider an additional non-contrast Chest CT at 18-24 months. If patient is low risk for malignancy, non-contrast Chest CT at 18-24 months is optional. These guidelines do not apply to immunocompromised patients and patients with cancer. Follow up in patients with significant comorbidities as clinically warranted. For lung cancer screening, adhere to Lung-RADS guidelines. Reference: Radiology. 2017; 284(1):228-43. RECOMMENDATIONS: non-contrast chest CT at 6-12 months Interpreted by: Will Ramirez MD Signed by: Will Ramirez MD 07/23/23 Final result Normal [facility] CT HEAD WO CONTRASTon 2023 CT HEAD WO CONTRAST EXAMINATION: CT OF THE HEAD WITHOUT CONTRAST 07/23/2023 1:02 pm TECHNIQUE: CT of the head was performed without the administration of intravenous contrast. Automated exposure control, iterative reconstruction, and/or weight based adjustment of the mA/kV was utilized to reduce the radiation dose to as low as reasonably achievable. COMPARISON: None. HISTORY: ORDERING SYSTEM PROVIDED HISTORY: Trauma TECHNOLOGIST PROVIDED HISTORY: Trauma Reason for Exam: trauma fall FINDINGS: BRAIN/VENTRICLES: There is no acute intracranial hemorrhage, mass effect or midline shift. No abnormal extra-axial fluid collection. The crump-white differentiation is maintained without evidence of an acute infarct. There is no evidence of hydrocephalus. ORBITS: The visualized portion of the orbits demonstrate no acute abnormality. SINUSES: The visualized paranasal sinuses and mastoid air cells demonstrate no acute abnormality. SOFT TISSUES/SKULL: No acute abnormality of the visualized skull or soft tissues. IMPRESSION: No acute intracranial abnormality. Interpreted by: Wilber Robertson MD Signed by: Wilber Robertson MD 07/23/23 Final result Normal [facility] CT HEAD WO CONTRAST EXAMINATION: CT OF THE HEAD WITHOUT CONTRAST 07/23/2023 1:02 pm TECHNIQUE: CT of the head was performed without the administration of intravenous contrast. Automated exposure control, iterative reconstruction, and/or weight based adjustment of the mA/kV was utilized to reduce the radiation dose to as low as reasonably achievable. COMPARISON: None. HISTORY: ORDERING SYSTEM PROVIDED HISTORY: Trauma TECHNOLOGIST PROVIDED HISTORY: Trauma Reason for Exam: trauma fall FINDINGS: BRAIN/VENTRICLES: There is no acute intracranial hemorrhage, mass effect or midline shift. No abnormal extra-axial fluid collection. The crump-white differentiation is maintained without evidence of an acute infarct. There is no evidence of hydrocephalus. ORBITS: The visualized portion of the orbits demonstrate no acute abnormality. SINUSES: The visualized paranasal sinuses and mastoid air cells demonstrate no acute abnormality. SOFT TISSUES/SKULL: No acute abnormality of the visualized skull or soft tissues. IMPRESSION: No acute intracranial abnormality. Interpreted by: Wilber Robertson MD Signed by: Wilber Robertson MD 07/23/23 Final result Normal [facility] CT LUMBAR SPINE BONY RECONST RUCTIONon 07-23-2023 CT LUMBAR SPINE BONY RECONSTRUCTION EXAMINATION: CT OF THE LUMBAR SPINE WITHOUT CONTRAST 07/23/2023 TECHNIQUE: CT of the lumbar spine was performed without the administration of intravenous contrast. Multiplanar reformatted images are provided for review. Adjustment of mA and/or kV according to patient size was utilized. Automated exposure control, iterative reconstruction, and/or weight based adjustment of the mA/kV was utilized to reduce the radiation dose to as low as reasonably achievable. COMPARISON: None HISTORY: ORDERING SYSTEM PROVIDED HISTORY: trauma TECHNOLOGIST PROVIDED HISTORY: trauma Reason for Exam: trauma fall FINDINGS: BONES/ALIGNMENT: Grade 1 degenerative anterolisthesis L3 on L4 with normally aligned facet joints. Otherwise normal alignment of the spine. The vertebral body heights are maintained. Sequela from L1 vertebroplasty. No osseous destructive lesion is seen. DEGENERATIVE CHANGES: Diffuse xhwr-[id number] degenerative changes of the lumbar spine predominate L3-4 and L4-5. Prominent posterior nucleus pulposis protrusion L4-5 evident, lumbar canal not significantly narrowed, 13 mm AP dimension. No significant neural foraminal narrowing evident.. SOFT TISSUES/RETROPERITONEUM: No paraspinal mass is seen. IMPRESSION: No acute abnormality on non-contrast CT of the lumbar spine. Degenerative changes as described. Interpreted by: Will Ramirez MD Signed by: Will Ramirez MD 07/23/23 Final result Normal [facility] CT LUMBAR SPINE BONY RECONSTRUCTION EXAMINATION: CT OF THE LUMBAR SPINE WITHOUT CONTRAST 07/23/2023 TECHNIQUE: CT of the lumbar spine was performed without the administration of intravenous contrast. Multiplanar reformatted images are provided for review. Adjustment of mA and/or kV according to patient size was utilized. Automated exposure control, iterative reconstruction, and/or weight based adjustment of the mA/kV was utilized to reduce the radiation dose to as low as reasonably achievable. COMPARISON: None HISTORY: ORDERING SYSTEM PROVIDED HISTORY: trauma TECHNOLOGIST PROVIDED HISTORY: trauma Reason for Exam: trauma fall FINDINGS: BONES/ALIGNMENT: Grade 1 degenerative anterolisthesis L3 on L4 with normally aligned facet joints. Otherwise normal alignment of the spine. The vertebral body heights are maintained. Sequela from L1 vertebroplasty. No osseous destructive lesion is seen. DEGENERATIVE CHANGES: Diffuse [id number]-[id number] degenerative changes of the lumbar spine predominate L3-4 and L4-5. Prominent posterior nucleus pulposis protrusion L4-5 evident, lumbar canal not significantly narrowed, 13 mm AP dimension. No significant neural foraminal narrowing evident.. SOFT TISSUES/RETROPERITONEUM: No paraspinal mass is seen. IMPRESSION: No acute abnormality on non-contrast CT of the lumbar spine. Degenerative changes as described. Interpreted by: Will Ramirez MD Signed by: Will Ramirez MD 07/23/23 Final result Normal [facility] CT THORACIC SPINE BONY RECON STRUCTIONon 07-23-2023 CT THORACIC SPINE BONY RECONSTRUCTION EXAMINATION: CT OF THE THORACIC SPINE WITHOUT CONTRAST 07/23/2023 1:02 pm: TECHNIQUE: CT of the thoracic spine was performed without the administration of intravenous contrast. Multiplanar reformatted images are provided for review. Automated exposure control, iterative reconstruction, and/or weight based adjustment of the mA/kV was utilized to reduce the radiation dose to as low as reasonably achievable. COMPARISON: None. HISTORY: ORDERING SYSTEM PROVIDED HISTORY: trauma TECHNOLOGIST PROVIDED HISTORY: trauma Reason for Exam: trauma fall FINDINGS: BONES/ALIGNMENT: Bone mineralization appears mildly diffusely abnormally low. Mild central compression superior endplate T10, typical for Schmorl's node and sequela of degenerative disc disease (almost certainly a chronic finding). The other vertebral body heights are maintained. Normal alignment of the spine. No osseous destructive lesion is seen. DEGENERATIVE CHANGES: Diffuse mild degenerative change. No acquired thoracic canal stenosis or significant neural foraminal narrowing evident. SOFT TISSUES: No paraspinal mass is seen. IMPRESSION: 1. No definite acute thoracic fracture. 2. Mild central compression superior endplate T10, typical for Schmorl's node and sequela of degenerative disc disease (almost certainly a chronic finding). 3. Bones appear osteopenic or mildly osteoporotic. 4. Diffuse mild degenerative changes. Interpreted by: Will Ramirez MD Signed by: Will Ramirez MD 07/23/23 Final result Normal [facility] CT THORACIC SPINE BONY RECONSTRUCTION EXAMINATION: CT OF THE THORACIC SPINE WITHOUT CONTRAST 07/23/2023 1:02 pm: TECHNIQUE: CT of the thoracic spine was performed without the administration of intravenous contrast. Multiplanar reformatted images are provided for review. Automated exposure control, iterative reconstruction, and/or weight based adjustment of the mA/kV was utilized to reduce the radiation dose to as low as reasonably achievable. COMPARISON: None. HISTORY: ORDERING SYSTEM PROVIDED HISTORY: trauma TECHNOLOGIST PROVIDED HISTORY: trauma Reason for Exam: trauma fall FINDINGS: BONES/ALIGNMENT: Bone mineralization appears mildly diffusely abnormally low. Mild central compression superior endplate T10, typical for Schmorl's node and sequela of degenerative disc disease (almost certainly a chronic finding). The other vertebral body heights are maintained. Normal alignment of the spine. No osseous destructive lesion is seen. DEGENERATIVE CHANGES: Diffuse mild degenerative change. No acquired thoracic canal stenosis or significant neural foraminal narrowing evident. SOFT TISSUES: No paraspinal mass is seen. IMPRESSION: 1. No definite acute thoracic fracture. 2. Mild central compression superior endplate T10, typical for Schmorl's node and sequela of degenerative disc disease (almost certainly a chronic finding). 3. Bones appear osteopenic or mildly osteoporotic. 4. Diffuse mild degenerative changes. Interpreted by: Will Ramirez MD Signed by: Will Ramirez MD 07/23/23 Final result Normal [facility] Drug Scr, Abuse, Uron 2023 Fentanyl, Urine Positive Abnormal NEG [facility] Comment on above: Result Comment: Cuto ff: 5 ng/ml Performed By: #### U RNA, URTP, URCRE, UEOS #### [address] [address] Warehouse Distribution Manager: Alexey Green MD Interpretive Info Assay provides rapid clinical screening only. Presumptive positive results for Normal [facility] Comment on above: Result Comment: lega l purposes should be confirmed by another method. To request confirmation, please call the lab within 7 days of sample submission. Performed By: #### U RNA, URTP, URCRE, UEOS #### [address] [address] Warehouse Distribution Manager: Alexey Green MD Amphetamine(s),Ur Negative Normal NEG [facility] Comment on above: Result Comment: Cuto ff: 1000 ng/mL Performed By: #### U RNA, URTP, URCRE, UEOS #### [employer] [address] [place] [address] Warehouse Distribution Manager: Alexey Green MD Barbiturate(s),Ur Negative Normal NEG [facility] Comment on above: Result Comment: Cuto ff: 200 ng/ml Performed By: #### U RNA, URTP, URCRE, UEOS #### [employer] [address] [place] [address] Warehouse Distribution Manager: Alexey Green MD Benzodiazepine(s) Negative Normal NEG [facility] Comment on above: Result Comment: Cuto ff: 200 ng/ml Performed By: #### U RNA, URTP, URCRE, UEOS #### [employer] [address] [place] [address] Warehouse Distribution Manager: Alexey Green MD Cannabinoid(s),Ur Negative Normal NEG [facility] Comment on above: Result Comment: Cuto ff: 50 ng/ml Performed By: #### U RNA, URTP, URCRE, UEOS #### [address] [address] Warehouse Distribution Manager: Alexey Green MD Cocaine Metabolite Negative Normal NEG [facility] Comment on above: Result Comment: Cuto ff: 300 ng/ml Performed By: #### U RNA, URTP, URCRE, UEOS #### [address] [address] Warehouse Distribution Manager: Alexey Green MD Methadone Ql (U) Negative Normal NEG [facility] Comment on above: Result Comment: Cuto ff: 300 ng/ml Performed By: #### U RNA, URTP, URCRE, UEOS #### [address] [address] Warehouse Distribution Manager: Alexey Green MD Opiate(s), Ur Negative Normal NEG [facility] Comment on above: Result Comment: Cuto ff: 300 ng/ml Performed By: #### U RNA, URTP, URCRE, UEOS #### [address] [address] Warehouse Distribution Manager: Alexey Green MD Oxycodone, Urine Negative Normal NEG [facility] Comment on above: Result Comment: Cuto ff: 100 ng/ml Performed By: #### U RNA, URTP, URCRE, UEOS #### [address] [address] Warehouse Distribution Manager: Alexey Green MD Phencyclidine, Ur Negative Normal NEG [facility] Comment on above: Result Comment: Cuto ff: 25 ng/ml Performed By: #### U RNA, URTP, URCRE, UEOS #### [address] [address] Warehouse Distribution Manager: Alexey Green MD Fentanyl, Urine Positive Abnormal NEG [facility] Comment on above: Result Comment: Cuto ff: 5 ng/ml Performed By: #### VIKTOR RODAS, UA #### [facility] [address] [place] [address] Warehouse Distribution Manager: Alexey Green MD Interpretive Info Assay provides rapid clinical screening only. Presumptive positive results for Normal [facility] Comment on above: Result Comment: lega l purposes should be confirmed by another method. To request confirmation, please call the lab within 7 days of sample submission. Performed By: #### VIKTOR RODAS UA #### [facility] [address] [place] [address] Warehouse Distribution Manager: Alexey Green MD Amphetamine(s),Ur Negative Normal NEG [facility] Comment on above: Result Comment: Cuto ff: 1000 ng/mL Performed By: #### VIKTOR RODAS, UA #### [facility] [address] [place] [address] Warehouse Distribution Manager: Alexey Green MD Barbiturate(s),Ur Negative Normal NEG [facility] Comment on above: Result Comment: Cuto ff: 200 ng/ml Performed By: #### VIKTOR RODAS, UA #### [employer] [address] [place] [address] Warehouse Distribution Manager: Alexey Green MD Benzodiazepine(s) Negative Normal NEG [facility] Comment on above: Result Comment: Cuto ff: 200 ng/ml Performed By: #### VIKTOR RODAS, UA #### [facility] [address] [place] [address] Warehouse Distribution Manager: Alexey Green MD Cannabinoid(s),Ur Negative Normal NEG [facility] Comment on above: Result Comment: Cuto ff: 50 ng/ml Performed By: #### Alana BOWLING BRIDGETO, UA #### [facility] [address] [place] [address] Warehouse Distribution Manager: Alexey Green MD Cocaine Metabolite Negative Normal NEG [facility] Comment on above: Result Comment: Cuto ff: 300 ng/ml Performed By: #### [facility] #### [facility] [address] [place] [address] Warehouse Distribution Manager: Alexey Green MD Methadone Ql (U) Negative Normal NEG [facility] Comment on above: Result Comment: Cuto ff: 300 ng/ml Performed By: #### [facility], UA #### [facility] [address] [place] [address] Warehouse Distribution Manager: Alexey Green MD Opiate(s), Ur Negative Normal NEG [facility] Comment on above: Result Comment: Cuto ff: 300 ng/ml Performed By: #### Alana BOWLING [facility], UA #### [facility] [address] [place] [phone] Warehouse Distribution Manager: Alexey Green MD Oxycodone, Urine Negative Normal NEG [facility] Comment on above: Result Comment: Cuto ff: 100 ng/ml Performed By: #### [facility], [facility]A #### [employer] [address] [place] [address] Warehouse Distribution Manager: Alexey Green MD Phencyclidine, Ur Negative Normal NEG [facility] Comment on above: Result Comment: Cuto ff: 25 ng/ml Performed By: #### [facility], [facility]A #### [facility] [address] [place] [address] Warehouse Distribution Manager: Alexey Green MD Gl Hemostasis TEG w/Lysison 07-23-2023 Fibrinogen, Func TEG 41.5 mm High 15.0-32.0 [facility] Comment on above: Performed By: #### B MPX #### [facility] [address] [place] [address] Warehouse Distribution Manager: Alexey Green MD LY30 (Lysis) TEG 0.0 % Normal 0.0-2.6 [facility] Comment on above: Performed By: #### B MPX #### [address] [address] Warehouse Distribution Manager: Alexey Green MD MA Rapid TEG 71.7 mm High 52.0-70 [facility] Comment on above: Performed By: #### B MPX #### [address] [address] Warehouse Distribution Manager: Alexey Green MD R(Reaction Time) TEG 4.0 min Low 4.6-9.1 [facility] Comment on above: Performed By: #### B MPX #### [address] [address] Warehouse Distribution Manager: Alexey Green MD Fibrinogen, Func TEG 41.5 mm High 15.0-32.0 [facility] Comment on above: Performed By: #### U ZACARIAS UA #### [facility] [address] [place] [address] Warehouse Distribution Manager: Alexey Green MD LY30 (Lysis) TEG 0.0 % Normal 0.0-2.6 [facility] Comment on above: Performed By: #### U ZACARIAS UA #### [facility] [address] [place] [address] Warehouse Distribution Manager: Alexey Green MD MA Rapid TEG 71.7 mm High 52.0-70 [facility] Comment on above: Performed By: #### U ZACARIAS UA #### [facility] [address] [place] [address] Warehouse Distribution Manager: Alexey Green MD R(Reaction Time) TEG 4.0 min Low 4.6-9.1 [facility] Comment on above: Performed By: #### U KURTISO UA #### [address] [address] Warehouse Distribution Manager: Alexey Green MD Glucose,Whole Bloodon 2023 Glucose [Mass/Vol] 154 mg/dL High 65-105 [facility] Glucose [Mass/Vol] 116 mg/dL High 65-105 [facility] Glucose [Mass/Vol] 154 mg/dL High 65-105 [facility] Glucose [Mass/Vol] 116 mg/dL High 65-105 [facility] Trauma Profileon 07-23-2023 Anion gap [Moles/Vol] 8 mmol/L Low 9-16 [facility] Comment on above: Performed By: #### U RNA, URTP, URCRE, UEOS #### [facility] [address] [place] [address] Warehouse Distribution Manager: Alexey Green MD Chloride [Moles/Vol] 111 mmol/L High 98-107 [facility] Comment on above: Performed By: #### U RNA, URTP, URCRE, UEOS #### [facility] [address] [place] [address] Warehouse Distribution Manager: Alexey Green MD CO2 [Moles/Vol] 24 mmol/L Normal 20-31 [facility] Comment on above: Performed By: #### U RNA, URTP, URCRE, UEOS #### [facility] [address] [place] [address] Warehouse Distribution Manager: Alexey Green MD Creatinine [Mass/Vol] 2.2 mg/dL High 0.50-0.90 [facility] Comment on above: Performed By: #### U RNA, URTP, URCRE, UEOS #### [facility] [address] [place] [address] Warehouse Distribution Manager: lAexey Green MD Ethanol [Mass/Vol] mg/dL Normal <10 [facility] Comment on above: Performed By: #### U RNA, URTP, URCRE, UEOS #### [address] [address] Warehouse Distribution Manager: Alexey Green MD Ethanol percent <0.010 Normal <0.010 [facility] Comment on above: Performed By: #### U RNA, URTP, URCRE, UEOS #### [address] [address] Warehouse Distribution Manager: Alexey Green MD GFR/1.73 sq M.predicted among non-blacks MDRD (S/P/Bld) [Vol rate/Area] 22 mL/min/{1.73_m2} Low >60 [facility] Comment on above: Result Comment: These results are not intended for use in patients <18 years of age. eGFR results are calculated without a race factor using the 2020 CKD-EPI equation. Careful clinical correlation is recommended, particularly when comparing to results calculated using previous equations. The CKD-EPI equation is less accurate in patients with extremes of muscle mass, extra-renal metabolism of creatine, excessive creatine ingestion, or following therapy that affects renal tubular secretion. Performed By: #### U RNA, URTP, URCRE, UEOS #### [address] [address] Warehouse Distribution Manager: Alexey Green MD Glucose [Mass/Vol] 112 mg/dL High 74-99 [facility] Comment on above: Performed By: #### U RNA, URTP, URCRE, UEOS #### [address] [address] Warehouse Distribution Manager: Alexey Green MD Potassium [Moles/Vol] 4.5 mmol/L Normal 3.7-5.3 [facility] Comment on above: Performed By: #### U RNA, URTP, URCRE, UEOS #### [facility] [address] [place] [address] Warehouse Distribution Manager: Alexey Green MD Sodium [Moles/Vol] 143 mmol/L Normal 136-145 [facility] Comment on above: Performed By: #### U RNA, URTP, URCRE, UEOS #### [address] [address] Warehouse Distribution Manager: Alexey Green MD Urea nitrogen [Mass/Vol] 44 mg/dL High 8-23 [facility] Comment on above: Performed By: #### U RNA, URTP, URCRE, UEOS #### [address] [address] Warehouse Distribution Manager: Alexey Green MD aPTT Coag (Bld) [Time] 29.0 s Normal 23.0-36.5 [facility] Comment on above: Result Comment: IV Heparin Therapy Range: 66.0-92.0 sec Performed By: #### U RNA, URTP, URCRE, UEOS #### [address] [address] Warehouse Distribution Manager: Alexey Green MD INR Coag (PPP) [Relative time] 1.8 {INR} Normal [facility] Comment on above: Result Comment: Therapeutic Range: Moderate Anticoagulant Intensity: INR = 2.0-3.0 High Anticoagulant Intensity: INR = 2.5-3.5 Performed By: #### U RNA, URTP, URCRE, UEOS #### [address] [address] Warehouse Distribution Manager: Alexey Green MD PT Coag (PPP) [Time] 20.6 s High 11.7-14.9 [facility] Comment on above: Performed By: #### U RNA, URTP, URCRE, UEOS #### [facility] [address] [place] [address] Warehouse Distribution Manager: Alexey Green MD Body Temp. 37.0 Normal [facility] Comment on above: Performed By: #### U RNA, URTP, URCRE, UEOS #### [address] [address] Warehouse Distribution Manager: Alexey Green MD Carboxy Hgb 1.6 % Normal 0-5 [facility] Comment on above: Result Comment: Reference Range: Non-Smokers 0-2% Average Smoker 2-4% Heavy Smoker <10% Performed By: #### U RNA, URTP, URCRE, UEOS #### [address] [address] Warehouse Distribution Manager: Alexey Green MD FIO2 INFORMATION NOT PROVIDED [facility] Comment on above: Performed By: #### U RNA, URTP, URCRE, UEOS #### [address] [address] Warehouse Distribution Manager: Alexey Green MD HCO3 (Bld) [Moles/Vol] 25.6 mmol/L Normal 24-30 [facility] Comment on above: Performed By: #### U RNA, URTP, URCRE, UEOS #### [address] [address] Warehouse Distribution Manager: Alexey Green MD Negative Base Excess 2.0 mmol/L Normal 0.0-2.0 [facility] Comment on above: Performed By: #### U RNA, URTP, URCRE, UEOS #### [address] [address] Warehouse Distribution Manager: Alexey Green MD Oxygen saturation in Blood 67.2 % Normal 60.0-85.0 [facility] Comment on above: Performed By: #### U RNA, URTP, URCRE, UEOS #### [address] [address] [address] Warehouse Distribution Manager: Alexey Green MD pCO2 59.6 mm Hg High 39-55 [facility] Comment on above: Performed By: #### U RNA, URTP, URCRE, UEOS #### [address] [address] Warehouse Distribution Manager: Alexey Green MD pH (Bld) 7.255 [pH] Low 7.320-7.420 [facility] Comment on above: Performed By: #### U RNA, URTP, URCRE, UEOS #### [address] [address] Warehouse Distribution Manager: Alexey Green MD pO2 35.4 mm Hg Normal 30-50 [facility] Comment on above: Performed By: #### U RNA, URTP, URCRE, UEOS #### [address] [address] Warehouse Distribution Manager: Alexey Green MD Erythrocyte distribution width (RBC) [Ratio] 13.4 % Normal 11.8-14.4 [facility] Comment on above: Performed By: #### U RNA, URTP, URCRE, UEOS #### [address] [address] Warehouse Distribution Manager: Alexey Green MD Hematocrit (Bld) [Volume fraction] 39.3 % Normal 36.3-47.1 [facility] Comment on above: Performed By: #### U RNA, URTP, URCRE, UEOS #### [address] [address] Warehouse Distribution Manager: Alexey Green MD Hemoglobin (Bld) [Mass/Vol] 11.8 g/dL Low 11.9-15.1 [facility] Comment on above: Performed By: #### U RNA, URTP, URCRE, UEOS #### [address] [place] [address] Warehouse Distribution Manager: Alexey Green MD MCH (RBC) [Entitic mass] 31.4 pg Normal 25.2-33.5 [facility] Comment on above: Performed By: #### U RNA, URTP, URCRE, UEOS #### [address] [address] Warehouse Distribution Manager: Alexey Green MD MCHC (RBC) [Mass/Vol] 30.0 g/dL Normal 28.4-34.8 [facility] Comment on above: Performed By: #### U RNA, URTP, URCRE, UEOS #### [address] [address] Warehouse Distribution Manager: Alexey Green MD MCV (RBC) [Entitic vol] 104.5 fL High 82.6-102.9 [facility] Comment on above: Performed By: #### U RNA, URTP, URCRE, UEOS #### [address] [address] Warehouse Distribution Manager: Alexey Green MD NRBC Automated 0.0 per 100 WBC Normal 0.0 [facility] Comment on above: Performed By: #### U RNA, URTP, URCRE, UEOS #### [address] [address] Warehouse Distribution Manager: Alexey Green MD Platelet mean volume (Bld) [Entitic vol] 11.5 fL Normal 8.1-13.5 [facility] Comment on above: Performed By: #### U RNA, URTP, URCRE, UEOS #### [address] [address] Warehouse Distribution Manager: Alexey Green MD Platelets (Bld) [#/Vol] 198 10*3/uL Normal 138-453 [facility] Comment on above: Performed By: #### U RNA, URTP, URCRE, UEOS #### [facility] [address] [place] [address] Warehouse Distribution Manager: Alexey Green MD RBC (d) [#/Vol] 3.76 10*6/uL Low 3.95-5.11 [facility] Comment on above: Performed By: #### U RNA, URTP, URCRE, UEOS #### [facility] [address] [place] [address] Warehouse Distribution Manager: Alexey Green MD WBC (Bld) [#/Vol] 10.4 10*3/uL Normal 3.5-11.3 [facility] Comment on above: Performed By: #### U RNA, URTP, URCRE, UEOS #### [address] [address] Warehouse Distribution Manager: Alexey Green MD Blood Bank BILL FOR SERVICES PERFORMED Normal [facility] Comment on above: Performed By: #### U RNA, URTP, URCRE, UEOS #### [address] [address] Warehouse Distribution Manager: Alexey Green MD Anion gap [Moles/Vol] 8 mmol/L Low 9-16 [facility] Comment on above: Performed By: #### Tanja ADAMES UA #### [facility] [address] [place] [address] Warehouse Distribution Manager: Alexey Green MD Chloride [Moles/Vol] 111 mmol/L High 98-107 [facility] Comment on above: Performed By: #### Tanja ADAMES UA #### [facility] [address] [place] [address] Warehouse Distribution Manager: Alexey Green MD CO2 [Moles/Vol] 24 mmol/L Normal 20-31 [facility] Comment on above: Performed By: #### U MICAO, UA #### [address] [address] Warehouse Distribution Manager: Alexey Green MD Creatinine [Mass/Vol] 2.2 mg/dL High 0.50-0.90 [facility] Comment on above: Performed By: #### U MICAO, UA #### [address] [address] Warehouse Distribution Manager: Alexey Green MD Ethanol [Mass/Vol] mg/dL Normal <10 [facility] Comment on above: Performed By: #### U MICAO, UA #### [address] [address] Warehouse Distribution Manager: Alexey Green MD Ethanol percent <0.010 Normal <0.010 [facility] Comment on above: Performed By: #### U KURTISO, UA #### [address] [address] Warehouse Distribution Manager: Alexey Green MD GFR/1.73 sq M.predicted among non-blacks MDRD (S/P/Bld) [Vol rate/Area] 22 mL/min/{1.73_m2} Low >60 [facility] Comment on above: Result Comment: These results are not intended for use in patients <18 years of age. eGFR results are calculated without a race factor using the 2020 CKD-EPI equation. Careful clinical correlation is recommended, particularly when comparing to results calculated using previous equations. The CKD-EPI equation is less accurate in patients with extremes of muscle mass, extra-renal metabolism of creatine, excessive creatine ingestion, or following therapy that affects renal tubular secretion. Performed By: #### U KURTISO, UA #### [address] [address] Warehouse Distribution Manager: Alexey Green MD Glucose [Mass/Vol] 112 mg/dL High 74-99 [facility] Comment on above: Performed By: #### U KURTISO UA #### [address] [place] [address] Warehouse Distribution Manager: Alexey Green MD Potassium [Moles/Vol] 4.5 mmol/L Normal 3.7-5.3 [facility] Comment on above: Performed By: #### Tanja ADAMES UA #### [facility] [address] [place] [address] Warehouse Distribution Manager: Alexey Green MD Sodium [Moles/Vol] 143 mmol/L Normal 136-145 [facility] Comment on above: Performed By: #### Tanja ADAMES UA #### [facility] [address] [place] [address] Warehouse Distribution Manager: Alexey Green MD Urea nitrogen [Mass/Vol] 44 mg/dL High 8-23 [facility] Comment on above: Performed By: #### Tanja ADAMES UA #### [facility] [address] [place] [address] Warehouse Distribution Manager: Alexey Green MD aPTT Coag (Bld) [Time] 29.0 s Normal 23.0-36.5 [facility] Comment on above: Result Comment: IV Heparin Therapy Range: 66.0-92.0 sec Performed By: #### Tanja ADAMES UA #### [facility] [address] [place] [address] Warehouse Distribution Manager: Alexey Green MD INR Coag (PPP) [Relative time] 1.8 {INR} Normal [facility] Comment on above: Result Comment: Therapeutic Range: Moderate Anticoagulant Intensity: INR = 2.0-3.0 High Anticoagulant Intensity: INR = 2.5-3.5 Performed By: #### Tanja ADAMES UA #### [facility] [address] [place] [address] Warehouse Distribution Manager: Alexey Green MD PT Coag (PPP) [Time] 20.6 s High 11.7-14.9 [facility] Comment on above: Performed By: #### U MICAO, UA #### [facility] [place] [address] Warehouse Distribution Manager: Alexey Green MD Body Temp. 37.0 Normal [facility] Comment on above: Performed By: #### U MICAO, UA #### [facility] [address] [place] [address] Warehouse Distribution Manager: Alexey Green MD Carboxy Hgb 1.6 % Normal 0-5 [facility] Comment on above: Result Comment: Reference Range: Non-Smokers 0-2% Average Smoker 2-4% Heavy Smoker <10% Performed By: #### U MICAO, UA #### [facility] [address] [place] [address] Warehouse Distribution Manager: Alexey Green MD FIO2 INFORMATION NOT PROVIDED [facility] Comment on above: Performed By: #### U MICAO, UA #### [facility] [address] [place] [address] Warehouse Distribution Manager: Alexey Green MD HCO3 (Bld) [Moles/Vol] 25.6 mmol/L Normal 24-30 [facility] Comment on above: Performed By: #### U MICAO, UA #### [facility] [address] [place] [address] Warehouse Distribution Manager: Alexey Green MD Negative Base Excess 2.0 mmol/L Normal 0.0-2.0 [facility] Comment on above: Performed By: #### U MICAO, UA #### [facility] [address] [place] [address] Warehouse Distribution Manager: Alexey Green MD Oxygen saturation in Blood 67.2 % Normal 60.0-85.0 [facility] Comment on above: Performed By: #### U MICAO, UA #### [facility] [address] [place] [address] Warehouse Distribution Manager: Alexey Green MD pCO2 59.6 mm Hg High 39-55 [facility] Comment on above: Performed By: #### Tanja ADAMES UA #### [facility] [address] [place] [address] Warehouse Distribution Manager: Alexey Green MD pH (Bld) 7.255 [pH] Low 7.320-7.420 [facility] Comment on above: Performed By: #### Tanja ADAMES UA #### [facility] [address] [place] [address] Warehouse Distribution Manager: Alexey Green MD pO2 35.4 mm Hg Normal 30-50 [facility] Comment on above: Performed By: #### Tanja ADAMES UA #### [address] [address] Warehouse Distribution Manager: Alexey Green MD Erythrocyte distribution width (RBC) [Ratio] 13.4 % Normal 11.8-14.4 [facility] Comment on above: Performed By: #### Tanja ADAMES UA #### [address] [address] Warehouse Distribution Manager: Alexey Green MD Hematocrit (Bld) [Volume fraction] 39.3 % Normal 36.3-47.1 [facility] Comment on above: Performed By: #### Tanja ADAMES UA #### [facility] [address] [place] [address] Warehouse Distribution Manager: Alexey Green MD Hemoglobin (Bld) [Mass/Vol] 11.8 g/dL Low 11.9-15.1 [facility] Comment on above: Performed By: #### Tanja ADAMES UA #### [facility] [address] [place] [address] Warehouse Distribution Manager: Alexey Green MD MCH (RBC) [Entitic mass] 31.4 pg Normal 25.2-33.5 [facility] Comment on above: Performed By: #### U ZACARIAS UA #### [facility] [address] [place] [address] Warehouse Distribution Manager: Alexey Green MD MCHC (RBC) [Mass/Vol] 30.0 g/dL Normal 28.4-34.8 [facility] Comment on above: Performed By: #### U ZACARIAS UA #### [facility] [address] [place] [address] Warehouse Distribution Manager: Alexey Green MD MCV (RBC) [Entitic vol] 104.5 fL High 82.6-102.9 [facility] Comment on above: Performed By: #### U ZCAARIAS UA #### [facility] [address] [place] [address] Warehouse Distribution Manager: Alexey Green MD NRBC Automated 0.0 per 100 WBC Normal 0.0 [facility] Comment on above: Performed By: #### U ZACARIAS UA #### [facility] [address] [place] [address] Warehouse Distribution Manager: Alexey Green MD Platelet mean volume (Bld) [Entitic vol] 11.5 fL Normal 8.1-13.5 [facility] Comment on above: Performed By: #### Tanja ADAMES UA #### [address] [address] Warehouse Distribution Manager: Alexey Green MD Platelets (Bld) [#/Vol] 198 10*3/uL Normal 138-453 [facility] Comment on above: Performed By: #### U ZACARIAS UA #### [facility] [address] [place] [address] Warehouse Distribution Manager: Alexey Geren MD RBC (Bld) [#/Vol] 3.76 10*6/uL Low 3.95-5.11 [facility] Comment on above: Performed By: #### U ZACARIAS UA #### [address] [address] Warehouse Distribution Manager: Alexey Green MD WBC (Bld) [#/Vol] 10.4 10*3/uL Normal 3.5-11.3 [facility] Comment on above: Performed By: #### U MICAO, UA #### [address] [address] Warehouse Distribution Manager: Alexey Green MD Blood Bank BILL FOR SERVICES PERFORMED Normal [facility] Comment on above: Performed By: #### U MICAO, UA #### [address] [address] Warehouse Distribution Manager: Alexey Green MD Urinalysis, Routineon 2023 Bilirubin, SemiQt,Ur Negative Normal NEG [facility] Comment on above: Performed By: #### U RNA, URTP, URCRE, UEOS #### [address] [address] Warehouse Distribution Manager: Alexey Green MD Blood, Urine Negative Normal NEG [facility] Comment on above: Performed By: #### U RNA, URTP, URCRE, UEOS #### [address] [address] Warehouse Distribution Manager: Alexey Green MD Clarity (U) Clear Normal CLEAR [facility] Comment on above: Performed By: #### U RNA, URTP, URCRE, UEOS #### [address] [address] Warehouse Distribution Manager: Alexey Green MD Color (U) Yellow Normal YEL [facility] Comment on above: Performed By: #### U RNA, URTP, URCRE, UEOS #### [address] [address] Warehouse Distribution Manager: Alexey Green MD Glucose Ql (U) Negative Normal NEG [facility] Comment on above: Performed By: #### U RNA, URTP, URCRE, UEOS #### [address] [address] Warehouse Distribution Manager: Alexey Green MD Ketones Ql (U) Negative Normal NEG [facility] Comment on above: Performed By: #### U RNA, URTP, URCRE, UEOS #### [address] [address] Warehouse Distribution Manager: Alexey Green MD Leukocyte esterase Test strip Ql (U) SMALL Abnormal NEG [facility] Comment on above: Performed By: #### U RNA, URTP, URCRE, UEOS #### [address] [address] Warehouse Distribution Manager: Alexey Green MD Nitrite,Ur Negative Normal NEG [facility] Comment on above: Performed By: #### U RNA, URTP, URCRE, UEOS #### [address] [address] Warehouse Distribution Manager: Alexey Green MD PH,Ur 5.5 Normal 5.0-8.0 [facility] Comment on above: Performed By: #### U RNA, URTP, URCRE, UEOS #### [address] [address] Warehouse Distribution Manager: Alexey Green MD Protein Ql (U) TRACE Abnormal NEG [facility] Comment on above: Performed By: #### U RNA, URTP, URCRE, UEOS #### [address] [address] Warehouse Distribution Manager: Alexey Green MD Spec. [place],Ur 1.029 Normal 1.005-1.[address] [facility] Comment on above: Performed By: #### U RNA, URTP, URCRE, UEOS #### [facility] [address] [place] [address] Warehouse Distribution Manager: Alexey Green MD Urobilinogen,Ur Normal Normal 0.0-1.0 [facility] Comment on above: Performed By: #### U RNA, URTP, URCRE, UEOS #### [facility] [address] [place] [address] Warehouse Distribution Manager: Alexey Green MD Bilirubin, SemiQt,Ur Negative Normal NEG [facility] Comment on above: Performed By: #### Alana BOWLING [facility], UA #### [facility] [address] [place] [address] Warehouse Distribution Manager: Alexey Green MD Blood, Urine Negative Normal NEG [facility] Comment on above: Performed By: #### Alana [facility], UA #### [facility] [address] [place] [address] Warehouse Distribution Manager: Alexey Green MD Clarity (U) Clear Normal CLEAR [facility] Comment on above: Performed By: #### Alana [facility]ING [facility], UA #### [facility] [address] [place] [address] Warehouse Distribution Manager: Alexey Green MD Color (U) Yellow Normal YEL [facility] Comment on above: Performed By: #### Alana [facility], UA #### [facility] [address] [place] [address] Warehouse Distribution Manager: Alexey Green MD Glucose Ql (U) Negative Normal NEG [facility] Comment on above: Performed By: #### Alana [facility], UA #### [facility] [address] [place] [address] Warehouse Distribution Manager: Alexey Green MD Ketones Ql (U) Negative Normal NEG [facility] Comment on above: Performed By: #### Alana [facility], UA #### [facility] [address] [place] [address] Warehouse Distribution Manager: Alexey Green MD Leukocyte esterase Test strip Ql (U) SMALL Abnormal NEG [facility] Comment on above: Performed By: #### Alana [facility], UA #### [facility] [address] [place] [address] Warehouse Distribution Manager: Alexey Green MD Nitrite,Ur Negative Normal NEG [facility] Comment on above: Performed By: #### Alana [facility], UA #### [facility] [address] [place] [address] Warehouse Distribution Manager: Alexey Green MD PH,Ur 5.5 Normal 5.0-8.0 [facility] Comment on above: Performed By: #### Alana [facility], UA #### [facility] [address] [place] [address] Warehouse Distribution Manager: Alexey Green MD Protein Ql (U) TRACE Abnormal NEG [facility] Comment on above: Performed By: #### Alana [facility], UA #### [facility] [address] [place] [address] Warehouse Distribution Manager: Alexey Green MD Spec. [place],Ur 1.029 Normal 1.005-1.[address] [facility] Comment on above: Performed By: #### Alana [facility]OW[facility]ING [facility], UA #### [facility] [address] [place] [address] Warehouse Distribution Manager: Alexey Green MD Urobilinogen,Ur Normal Normal 0.0-1.0 [facility] Comment on above: Performed By: #### [facility] #### [facility] [address] [place] [address] Warehouse Distribution Manager: Alexey Green MD Urinalysis,Microon 4 Bacteria MANY Abnormal NONE [facility] Comment on above: Performed By: #### U RNA, URTP, URCRE, UEOS #### [facility] [address] [place] [address] Warehouse Distribution Manager: Alexey Green MD Casts None [place] [address] Comment on above: Result Comment: Refe rence range defined for non-centrifuged specimen. Performed By: #### U RNA, URTP, URCRE, UEOS #### [facility] [address] [place] [address] Warehouse Distribution Manager: Alexey Green MD Epithelial cells LM Ql (Urine sed) None [address] Comment on above: Performed By: #### U RNA, URTP, URCRE, UEOS #### [address] [address] Warehouse Distribution Manager: Alexey Green MD Urine RBC's None Normal 0-4 [facility] Comment on above: Result Comment: Refe rence range defined for non-centrifuged specimen. Performed By: #### U RNA, URTP, URCRE, UEOS #### [facility] [address] [place] [address] Warehouse Distribution Manager: Alexey Green MD Urine WBC's 20 TO 50 Normal 0-5 [facility] Comment on above: Performed By: #### U RNA, URTP, URCRE, UEOS #### [facility] [address] [place] [address] Warehouse Distribution Manager: Alexey Green MD Bacteria MANY Abnormal NONE [facility] Comment on above: Performed By: #### D AU, UMICAO, UA #### [facility] [address] [place] [address] Warehouse Distribution Manager: Alexey Green MD Castjohn None Normal 0-8 [facility] Comment on above: Result Comment: Refe rence range defined for non-centrifuged specimen. Performed By: #### D TAWNYA BRIDGETO, UA #### [facility] [address] [place] [address] Warehouse Distribution Manager: Alexey Green MD Epithelial cells LM Ql (Urine sed) None Normal 0-5 [facility] Comment on above: Performed By: #### Alana BOWLING JACQUI[facility]ORENA, UA #### [facility] [address] [place] [address] Warehouse Distribution Manager: Alexey Green MD Urine RBC's None Normal 0-4 [facility] Comment on above: Result Comment: Refe rence range defined for non-centrifuged specimen. Performed By: #### VIKTOR RODAS, UA #### [facility] [address] [place] [address] Warehouse Distribution Manager: Alexey Green MD Urine WBC's 20 TO 50 Normal 0-5 [facility] Comment on above: Performed By: #### Alana BOWLING BRIDGET, UA #### [facility] [address] [place] [address] Warehouse Distribution Manager: Alexey Green MD Vitamin D 25 OHon 07-23-2023 Vitamin D 25 OH 26.9 ng/mL Low 30.0-100.0 [facility] Comment on above: Result Comment: Reference Range: Vitamin D status Range Deficiency <20 ng/mL Mild Deficiency 20-30 ng/mL Sufficiency 30-100 ng/mL Toxicity >100 ng/mL Performed By: #### B MPX #### [facility] [address] [place] [address] Warehouse Distribution Manager: Alexey Green MD Vitamin D 25 [place] 26.9 ng/mL Low 30.0-100.0 [facility] Comment on above: Result Comment: Reference Range: Vitamin D status Range Deficiency <20 ng/mL Mild Deficiency 20-30 ng/mL Sufficiency 30-100 ng/mL Toxicity >100 ng/mL Performed By: #### U MICAO, UA #### [id number] [place] [address] Warehouse Distribution Manager: Alexey Green MD XR FEMUR LEFT (MIN 2 VIEWS)o n 07-23-2023 XR FEMUR LEFT (MIN 2 VIEWS) EXAMINATION: ONE XRAY VIEW OF THE PELVIS AND TWO XRAY VIEWS LEFT HIP; TWO XRAY VIEWS OF THE LEFT HIP; 2 XRAY VIEWS OF THE LEFT FEMUR; THREE XRAY VIEWS OF THE LEFT KNEE; TWO XRAY VIEWS OF THE LEFT KNEE 07/23/2023 2:45 pm COMPARISON: None. 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 *No pelvic fracture evident. *Mid and distal portions of the left femur appear intact. *No acute left knee abnormality. *Mild left knee joint osteoarthritis. * Vascular calcifications are noted reflecting calcific atherosclerosis. IMPRESSION: 1. Acute, impacted nondisplaced intertrochanteric fracture proximal left femur. 2. No pelvic fracture evident. 3. Mid and distal portions of the left femur appear intact. 4. No acute left knee abnormality. 5. Mild left knee joint osteoarthritis. 6. Vascular calcifications are noted reflecting calcific atherosclerosis. Interpreted by: Will Ramirez MD Signed by: Will Ramirez MD 07/23/23 Final result Normal [facility] XR FEMUR LEFT (MIN 2 VIEWS) EXAMINATION: ONE XRAY VIEW OF THE PELVIS AND TWO XRAY VIEWS LEFT HIP; TWO XRAY VIEWS OF THE LEFT HIP; 2 XRAY VIEWS OF THE LEFT FEMUR; THREE XRAY VIEWS OF THE LEFT KNEE; TWO XRAY VIEWS OF THE LEFT KNEE 07/23/2023 2:45 pm COMPARISON: None. 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 *No pelvic fracture evident. *Mid and distal portions of the left femur appear intact. *No acute left knee abnormality. *Mild left knee joint osteoarthritis. * Vascular calcifications are noted reflecting calcific atherosclerosis. IMPRESSION: 1. Acute, impacted nondisplaced intertrochanteric fracture proximal left femur. 2. No pelvic fracture evident. 3. Mid and distal portions of the left femur appear intact. 4. No acute left knee abnormality. 5. Mild left knee joint osteoarthritis. 6. Vascular calcifications are noted reflecting calcific atherosclerosis. Interpreted by: Will Ramirez MD Signed by: Will Ramirez MD 07/23/23 Final result Normal [facility] XR HIP 2-3 VW W PELVIS LEFTo n 07-23-2023 XR HIP 2-3 VW W PELVIS LEFT EXAMINATION: ONE XRAY VIEW OF THE PELVIS AND TWO XRAY VIEWS LEFT HIP; TWO XRAY VIEWS OF THE LEFT HIP; 2 XRAY VIEWS OF THE LEFT FEMUR; THREE XRAY VIEWS OF THE LEFT KNEE; TWO XRAY VIEWS OF THE LEFT KNEE 07/23/2023 2:45 pm COMPARISON: None. 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 *No pelvic fracture evident. *Mid and distal portions of the left femur appear intact. *No acute left knee abnormality. *Mild left knee joint osteoarthritis. * Vascular calcifications are noted reflecting calcific atherosclerosis. IMPRESSION: 1. Acute, impacted nondisplaced intertrochanteric fracture proximal left femur. 2. No pelvic fracture evident. 3. Mid and distal portions of the left femur appear intact. 4. No acute left knee abnormality. 5. Mild left knee joint osteoarthritis. 6. Vascular calcifications are noted reflecting calcific atherosclerosis. Interpreted by: Will Ramirez MD Signed by: Will Ramirez MD 07/23/23 Final result Normal [facility] XR HIP 2-3 VW W PELVIS LEFT EXAMINATION: ONE XRAY VIEW OF THE PELVIS AND TWO XRAY VIEWS LEFT HIP; TWO XRAY VIEWS OF THE LEFT HIP; 2 XRAY VIEWS OF THE LEFT FEMUR; THREE XRAY VIEWS OF THE LEFT KNEE; TWO XRAY VIEWS OF THE LEFT KNEE 07/23/2023 2:45 pm COMPARISON: None. 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 *No pelvic fracture evident. *Mid and distal portions of the left femur appear intact. *No acute left knee abnormality. *Mild left knee joint osteoarthritis. * Vascular calcifications are noted reflecting calcific atherosclerosis. IMPRESSION: 1. Acute, impacted nondisplaced intertrochanteric fracture proximal left femur. 2. No pelvic fracture evident. 3. Mid and distal portions of the left femur appear intact. 4. No acute left knee abnormality. 5. Mild left knee joint osteoarthritis. 6. Vascular calcifications are noted reflecting calcific atherosclerosis. Interpreted by: Will Ramirez MD Signed by: Will Ramirez MD 07/23/23 Final result Normal [facility] XR HIP LEFT (2-3 VIEWS)on XR HIP LEFT (2-3 VIEWS) EXAMINATION: ONE XRAY VIEW OF THE PELVIS AND TWO XRAY VIEWS LEFT HIP; TWO XRAY VIEWS OF THE LEFT HIP; 2 XRAY VIEWS OF THE LEFT FEMUR; THREE XRAY VIEWS OF THE LEFT KNEE; TWO XRAY VIEWS OF THE LEFT KNEE 07/23/2023 2:45 pm COMPARISON: None. 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 *No pelvic fracture evident. *Mid and distal portions of the left femur appear intact. *No acute left knee abnormality. *Mild left knee joint osteoarthritis. * Vascular calcifications are noted reflecting calcific atherosclerosis. IMPRESSION: 1. Acute, impacted nondisplaced intertrochanteric fracture proximal left femur. 2. No pelvic fracture evident. 3. Mid and distal portions of the left femur appear intact. 4. No acute left knee abnormality. 5. Mild left knee joint osteoarthritis. 6. Vascular calcifications are noted reflecting calcific atherosclerosis. Interpreted by: Will Ramirez MD Signed by: Will Ramirez MD 07/23/23 Final result Normal [facility] XR HIP LEFT (2-3 VIEWS) EXAMINATION: ONE XRAY VIEW OF THE PELVIS AND TWO XRAY VIEWS LEFT HIP; TWO XRAY VIEWS OF THE LEFT HIP; 2 XRAY VIEWS OF THE LEFT FEMUR; THREE XRAY VIEWS OF THE LEFT KNEE; TWO XRAY VIEWS OF THE LEFT KNEE 07/23/2023 2:45 pm COMPARISON: None. 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 *No pelvic fracture evident. *Mid and distal portions of the left femur appear intact. *No acute left knee abnormality. *Mild left knee joint osteoarthritis. * Vascular calcifications are noted reflecting calcific atherosclerosis. IMPRESSION: 1. Acute, impacted nondisplaced intertrochanteric fracture proximal left femur. 2. No pelvic fracture evident. 3. Mid and distal portions of the left femur appear intact. 4. No acute left knee abnormality. 5. Mild left knee joint osteoarthritis. 6. Vascular calcifications are noted reflecting calcific atherosclerosis. Interpreted by: Will Ramirez MD Signed by: Will Ramirez MD 07/23/23 Final result Normal [facility] XR KNEE LEFT (1-2 VIEWS)on 0 07-23-2023 XR KNEE LEFT (1-2 VIEWS) EXAMINATION: ONE XRAY VIEW OF THE PELVIS AND TWO XRAY VIEWS LEFT HIP; TWO XRAY VIEWS OF THE LEFT HIP; 2 XRAY VIEWS OF THE LEFT FEMUR; THREE XRAY VIEWS OF THE LEFT KNEE; TWO XRAY VIEWS OF THE LEFT KNEE 07/23/2023 2:45 pm COMPARISON: None. 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 *No pelvic fracture evident. *Mid and distal portions of the left femur appear intact. *No acute left knee abnormality. *Mild left knee joint osteoarthritis. * Vascular calcifications are noted reflecting calcific atherosclerosis. IMPRESSION: 1. Acute, impacted nondisplaced intertrochanteric fracture proximal left femur. 2. No pelvic fracture evident. 3. Mid and distal portions of the left femur appear intact. 4. No acute left knee abnormality. 5. Mild left knee joint osteoarthritis. 6. Vascular calcifications are noted reflecting calcific atherosclerosis. Interpreted by: Will Ramirez MD Signed by: Will Ramirez MD 07/23/23 Final result Normal [facility] XR KNEE LEFT (1-2 VIEWS) EXAMINATION: ONE XRAY VIEW OF THE PELVIS AND TWO XRAY VIEWS LEFT HIP; TWO XRAY VIEWS OF THE LEFT HIP; 2 XRAY VIEWS OF THE LEFT FEMUR; THREE XRAY VIEWS OF THE LEFT KNEE; TWO XRAY VIEWS OF THE LEFT KNEE 07/23/2023 2:45 pm COMPARISON: None. 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 *No pelvic fracture evident. *Mid and distal portions of the left femur appear intact. *No acute left knee abnormality. *Mild left knee joint osteoarthritis. * Vascular calcifications are noted reflecting calcific atherosclerosis. IMPRESSION: 1. Acute, impacted nondisplaced intertrochanteric fracture proximal left femur. 2. No pelvic fracture evident. 3. Mid and distal portions of the left femur appear intact. 4. No acute left knee abnormality. 5. Mild left knee joint osteoarthritis. 6. Vascular calcifications are noted reflecting calcific atherosclerosis. Interpreted by: Will Ramirez MD Signed by: Will Ramirez MD 07/23/23 Final result Normal [facility] XR KNEE LEFT (3 VIEWS)on XR KNEE LEFT (3 VIEWS) EXAMINATION: ONE XRAY VIEW OF THE PELVIS AND TWO XRAY VIEWS LEFT HIP; TWO XRAY VIEWS OF THE LEFT HIP; 2 XRAY VIEWS OF THE LEFT FEMUR; THREE XRAY VIEWS OF THE LEFT KNEE; TWO XRAY VIEWS OF THE LEFT KNEE 07/23/2023 2:45 pm COMPARISON: None. 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 *No pelvic fracture evident. *Mid and distal portions of the left femur appear intact. *No acute left knee abnormality. *Mild left knee joint osteoarthritis. * Vascular calcifications are noted reflecting calcific atherosclerosis. IMPRESSION: 1. Acute, impacted nondisplaced intertrochanteric fracture proximal left femur. 2. No pelvic fracture evident. 3. Mid and distal portions of the left femur appear intact. 4. No acute left knee abnormality. 5. Mild left knee joint osteoarthritis. 6. Vascular calcifications are noted reflecting calcific atherosclerosis. Interpreted by: Will Ramirez MD Signed by: Will Ramirez MD 07/23/23 Final result Normal [facility] XR KNEE LEFT (3 VIEWS) EXAMINATION: ONE XRAY VIEW OF THE PELVIS AND TWO XRAY VIEWS LEFT HIP; TWO XRAY VIEWS OF THE LEFT HIP; 2 XRAY VIEWS OF THE LEFT FEMUR; THREE XRAY VIEWS OF THE LEFT KNEE; TWO XRAY VIEWS OF THE LEFT KNEE 07/23/2023 2:45 pm COMPARISON: None. 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 *No pelvic fracture evident. *Mid and distal portions of the left femur appear intact. *No acute left knee abnormality. *Mild left knee joint osteoarthritis. * Vascular calcifications are noted reflecting calcific atherosclerosis. IMPRESSION: 1. Acute, impacted nondisplaced intertrochanteric fracture proximal left femur. 2. No pelvic fracture evident. 3. Mid and distal portions of the left femur appear intact. 4. No acute left knee abnormality. 5. Mild left knee joint osteoarthritis. 6. Vascular calcifications are noted reflecting calcific atherosclerosis. Interpreted by: Will Ramirez MD Signed by: Will Ramirez MD 07/23/23 Final result Normal [facility] Brain Natri. Peptideon 07-02 Natriuretic peptide B (Bld) [Mass/Vol] 1489 pg/mL High 0-300 [facility] Comment on above: Result Comment: An a ge-independent cutoff point of 300 pg/ml has a 98% negative predictive value excluding acute heart failure. Performed By: #### C DP, BMP #### [address] [address] Warehouse Distribution Manager: Alexey Green MD CBC with Diffon 07-03-2023 Abs. Basophil 0.06 k/uL Normal 0.00-0.20 [facility] Comment on above: Performed By: #### C DP, BMP #### [place] [address] Warehouse Distribution Manager: Alexey Green MD Abs.Imm.Granulocyte <0.03 Normal 0.00-0.30 [facility] Comment on above: Performed By: #### C DP, BMP #### [place] [address] Warehouse Distribution Manager: Alexey Green MD Abs.Neutrophil (Seg) 3.23 k/uL Normal 1.50-8.10 [facility] Comment on above: Performed By: #### C DP, BMP #### [place] [address] Warehouse Distribution Manager: Alexey Green MD Basophils/100 WBC (Bld) 1 % Normal 0-2 [facility] Comment on above: Performed By: #### C DP, BMP #### [place] [address] Warehouse Distribution Manager: Alexey Green MD Eosinophils (Bld) [#/Vol] 0.67 10*3/uL High 0.00-0.44 [facility] Comment on above: Performed By: #### C DP, BMP #### [facility] [employer] [address] [place] [address] Warehouse Distribution Manager: Alexey Green MD Eosinophils/100 WBC (Bld) 9 % High 1-4 [facility] Comment on above: Performed By: #### C DP, BMP #### [facility] [employer] [address] [place] [address] Warehouse Distribution Manager: Alexey Green MD Erythrocyte distribution width (RBC) [Ratio] 13.6 % Normal 11.8-14.4 [facility] Comment on above: Performed By: #### C DP, BMP #### [address] [address] Warehouse Distribution Manager: Alexey Green MD Hematocrit (Bld) [Volume fraction] 39.3 % Normal 36.3-47.1 [facility] Comment on above: Performed By: #### C DP, BMP #### [address] [address] Warehouse Distribution Manager: Alexey Green MD Hemoglobin (Bld) [Mass/Vol] 11.8 g/dL Low 11.9-15.1 [facility] Comment on above: Performed By: #### C DP, BMP #### [address] [address] Warehouse Distribution Manager: Alexey Green MD Immature granulocytes/100 WBC (Bld) 0 % Normal 0 [facility] Comment on above: Performed By: #### C DP, BMP #### [address] [address] Warehouse Distribution Manager: Alexey Green MD Lymphocytes (Bld) [#/Vol] 3.23 10*3/uL Normal 1.10-3.70 [facility] Comment on above: Performed By: #### C DP, BMP #### [address] [address] Warehouse Distribution Manager: Alexey Green MD Lymphocytes/100 WBC (Bld) 40 % Normal 24-43 [facility] Comment on above: Performed By: #### C DP, BMP #### [address] [address] Warehouse Distribution Manager: Alexey Green MD MCH (RBC) [Entitic mass] 31.1 pg Normal 25.2-33.5 [facility] Comment on above: Performed By: #### C DP, BMP #### [address] [address] Warehouse Distribution Manager: Alexey Green MD MCHC (RBC) [Mass/Vol] 30.0 g/dL Normal 28.4-34.8 [facility] Comment on above: Performed By: #### C DP, BMP #### [address] [address] Warehouse Distribution Manager: Alexey Green MD MCV (RBC) [Entitic vol] 103.7 fL High 82.6-102.9 [facility] Comment on above: Performed By: #### C DP, BMP #### [address] [address] Warehouse Distribution Manager: Alexey Green MD Monocytes (Bld) [#/Vol] 0.68 10*3/uL Normal 0.10-1.20 [facility] Comment on above: Performed By: #### C DP, BMP #### [address] [address] Warehouse Distribution Manager: Alexey Green MD Monocytes/100 WBC (Bld) 9 % Normal 3-12 [facility] Comment on above: Performed By: #### C DP, BMP #### [address] [address] Warehouse Distribution Manager: Alexey Green MD Neutrophil (Seg) 41 % Normal 36-65 [facility] Comment on above: Performed By: #### C DP, BMP #### [address] [address] Warehouse Distribution Manager: Alexey Green MD NRBC Automated 0.0 per 100 WBC Normal 0.0 [facility] Comment on above: Performed By: #### C DP, BMP #### [place] [address] Warehouse Distribution Manager: Alexey Green MD Platelet mean volume (Bld) [Entitic vol] 12.2 fL Normal 8.1-13.5 [facility] Comment on above: Performed By: #### C DP, BMP #### [address] [address] Warehouse Distribution Manager: Alexey Green MD Platelets (Bld) [#/Vol] 199 10*3/uL Normal 138-453 [facility] Comment on above: Performed By: #### C DP, BMP #### [address] [address] Warehouse Distribution Manager: Alexey Green MD RBC (Bld) [#/Vol] 3.79 10*6/uL Low 3.95-5.11 [facility] Comment on above: Performed By: #### C DP, BMP #### [address] [address] Warehouse Distribution Manager: Alexey Green MD RBC morphology finding Nom (Bld) MACROCYTOSIS PRESENT Normal [facility] Comment on above: Performed By: #### C DP, BMP #### [address] [address] Warehouse Distribution Manager: Alexey Green MD WBC (Bld) [#/Vol] 7.9 10*3/uL Normal 3.5-11.3 [facility] Comment on above: Performed By: #### C DP, BMP #### [address] [address] Warehouse Distribution Manager: Alexey Green MD Hemoglobin A1Con 07-03-2023 Glucose [Mass/Vol] 137 mg/dL Normal [facility] Comment on above: Result Comment: The ADA and AACC recommend providing the estimated average glucose result to permit better patient understanding of their HBA1c result. Performed By: #### C DP, BMP #### [address] [id number] Warehouse Distribution Manager: Alexey Green MD HbA1c (Bld) [Mass fraction] 6.4 % High 4.0-6.0 [facility] Comment on above: Performed By: #### C VIOLETTA, BMP #### [employer] [address] [place], [place] [id number] Warehouse Distribution Manager: Alexey Green MD TSH w/reflex to FT4on 2023 Thyroid Stim. Horm. 2.56 uIU/mL Normal 0.27-4.20 [facility] Comment on above: Performed By: #### C VIOLETTA, BMP #### [employer] [address] [place], [place] [id number] Warehouse Distribution Manager: Alexey Green MD Protime-INRon 05-29-2023 INR Coag (Bld) [Relative time] 2.2 {INR} [facility] [employer] PT Coag (PPP) [Time] 26.8 s seconds [facility] [employer] [facility] [employer] Protime-INRon 04-25-2023 INR Coag (Bld) [Relative time] 2.7 {INR} [facility] [employer] PT Coag (PPP) [Time] 32.2 s seconds [facility] [employer] Protime-INRon 04-13-2023 PT Coag (PPP) [Time] 25.2 s seconds [facility] [employer] [facility] [employer] INR Coag (Bld) [Relative time] 2.1 {INR} [facility] [employer] INR in Platelet poor plasma by Coagulation assayOrdered By: Colette Méndez on 02-26-2023 INR Coag (PPP) [Relative time] 2.2 {INR} [facility] Comment on above: INR Therapeutic Rang e A) Pre- and Peroperative OAT started two weeks before surgery. NOT HIP SURGERY: 1.5 - 2.5 HIP SURGERY: 2 - 3B) Primary and secondary prevention of venous THROMBOSIS: 2 - 3C) Active venous thrombosis, pulmonary embolismand prevention of recurrent venous thrombosis: 2 - 3D) Prevention of arterial thromboembolismincluding patients with mechanical heart valves: 3 - 4.5 Prothrombin Time INRon 02-26 INR Coag (PPP) [Relative time] 2.2 {INR} Normal [facility] Comment on above: Result Comment: INR Therapeutic Range A) Pre- and Peroperative OAT started two weeks before surgery. NOT HIP SURGERY: 1.5 - 2.5 HIP SURGERY: 2 - 3 B) Primary and secondary prevention of venous THROMBOSIS: 2 - 3 C) Active venous thrombosis, pulmonary embolism and prevention of recurrent venous thrombosis: 2 - 3 D) Prevention of arterial thromboembolism including patients with mechanical heart valves: 3 - 4.5 PERFORMED BY: [place] [address] [facility] [employer] REZA ORTIZ M.D. Performed By: #### P T #### [facility] [address] [place], [place] [id number] [facility] PT Coag (PPP) [Time] 25.8 s High 9.0-12.9 [facility] Comment on above: Result Comment: A he matocrit value greater than 55% may lead to inaccurate results in coagulation testing. Patients having hematocrit values >55% require a special collection tube for coagulation studies. Please contact the laboratory at [phone] for redraw instructions. Performed By: #### P T #### [facility] [address] [place], [place] [id number] [facility] Prothrombin time (PT)Ordered By: Colette Méndez on 02-26-2023 PT Coag (PPP) [Time] 25.8 s 9.0-12.9 [facility] Comment on above: A hematocrit value g reater than 55% may lead to inaccurate results in coagulation testing. Patients having hematocrit values >55% require a special collection tube for coagulation studies. Please contact the laboratory at [phone] for redraw instructions. INR in Platelet poor plasma by Coagulation assayOrdered By: Colette Méndez on 02-15-2023 INR Coag (PPP) [Relative time] 1.2 {INR} [facility] Comment on above: INR Therapeutic Rang e A) Pre- and Peroperative OAT started two weeks before surgery. NOT HIP SURGERY: 1.5 - 2.5 HIP SURGERY: 2 - 3B) Primary and secondary prevention of venous THROMBOSIS: 2 - 3C) Active venous thrombosis, pulmonary embolismand prevention of recurrent venous thrombosis: 2 - 3D) Prevention of arterial thromboembolismincluding patients with mechanical heart valves: 3 - 4.5 Prothrombin Time INRon 02-15 INR Coag (PPP) [Relative time] 1.2 {INR} Normal [facility] Comment on above: Result Comment: INR Therapeutic Range A) Pre- and Peroperative OAT started two weeks before surgery. NOT HIP SURGERY: 1.5 - 2.5 HIP SURGERY: 2 - 3 B) Primary and secondary prevention of venous THROMBOSIS: 2 - 3 C) Active venous thrombosis, pulmonary embolism and prevention of recurrent venous thrombosis: 2 - 3 D) Prevention of arterial thromboembolism including patients with mechanical heart valves: 3 - 4.5 PERFORMED BY: [place] [address] PATHOLOGIST [employer] REZA ORTIZ M.D. Performed By: #### P T #### [facility] [address] [place], [place] [id number] [facility] PT Coag (PPP) [Time] 14.5 s High 9.0-12.9 [facility] Comment on above: Result Comment: A he matocrit value greater than 55% may lead to inaccurate results in coagulation testing. Patients having hematocrit values >55% require a special collection tube for coagulation studies. Please contact the laboratory at [phone] for redraw instructions. Performed By: #### P T #### [facility] [address] [place], [place] [id number] [facility] Prothrombin time (PT)Ordered By: Colette Méndez on 02-15-2023 PT Coag (PPP) [Time] 14.5 s 9.0-12.9 [facility] Comment on above: A hematocrit value g reater than 55% may lead to inaccurate results in coagulation testing. Patients having hematocrit values >55% require a special collection tube for coagulation studies. Please contact the laboratory at [phone] for redraw instructions. Ambulatory Visit Summaryon 0 12-05-2022 Ambulatory Visit Summary GEMMA LEWIS :1935 Visit Date:12/05/2022 Ambulatory Visit Instructions Your Care Team Attending Physician - JAY BRYAN, Tom Jimenez Primary Care Physician - Colette Méndez MD This Is Your Medications List amiodarone (amiodarone 100 mg Tab) atorvastatin (atorvastatin 40 mg Tab) cetirizine (cetirizine 10 mg Tab) diltiazem (DilTIAZem (Eqv-Dilacor XR) 240 mg/24 hours oral capsule, extended release) doxepin (doxepin 10 mg Cap) empagliflozin (Jardiance 10 mg oral tablet) escitalopram (escitalopram 10 mg Tab) ferrous sulfate (ferrous sulfate 325 mg Tab) furosemide (Lasix 20 mg Tab) hydrocortisone topical (hydrocortisone 2.5% Rectal Crm w/Appl) levothyroxine (levothyroxine 25 mcg (0.025 mg) Tab) liothyronine (Cytomel 5 mcg Tab) memantine (Namenda XR 28 mg oral capsule, extended release) metformin (metformin 500 mg Tab) montelukast (Singulair 10 mg Tab) multivitamin with minerals (Centrum Silver oral tablet) olanzapine (ZyPREXA 2.5 mg Tab) pantoprazole (Pantoprazole [address] Tab) phytonadione (phytonadione 5 mg Tab) potassium chloride (Klor Con 10 mEq Cap-ER) warfarin Procedures Performed Excision of squamous cell carcinoma (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 Medications What How Much When Instructions Unchanged amiodarone (amiodarone 100 mg Tab) 2 Tablets By Mouth 2 times a day Unchanged atorvastatin (atorvastatin 40 mg Tab) 1 Tablets By Mouth Every day Unchanged cetirizine (cetirizine 10 mg Tab) 1 Tablets By Mouth Every day Unchanged diltiazem (DilTIAZem (Eqv-Dilacor XR) 240 mg/ 24 hours oral capsule, extended release) 1 Capsules By Mouth Every day Unchanged doxepin (doxepin 10 mg Cap) 1 Capsules By Mouth Once a day (at bedtime) Unchanged empagliflozin (Jardiance 10 mg oral tablet) 1 Tablets By Mouth Once a day (in the morning) Unchanged escitalopram (escitalopram 10 mg Tab) 1 Tablets By Mouth Every day Unchanged ferrous sulfate (ferrous sulfate 325 mg Tab) 1 Tablets By Mouth 2 times a day Unchanged furosemide (Lasix 20 mg Tab) 1 Tablets By Mouth Every day Unchanged hydrocortisone topical (hydrocortisone 2.5% Rectal Crm w/ Appl) 1 Application By rectum 2 times a day Unchanged levothyroxine (levothyroxine 25 mcg (0.025 mg) Tab) 1 Tablets By Mouth Every day Unchanged liothyronine (Cytomel 5 mcg Tab) 1 Tablets By Mouth Every day Unchanged memantine (Namenda XR 28 mg oral capsule, extended release) 1 Capsules By Mouth Every day Unchanged metformin (metformin 500 mg Tab) 1 Tablets By Mouth 2 times a day Unchanged montelukast (Singulair 10 mg Tab) 1 Tablets By Mouth Every day Unchanged multivitamin with minerals (Centrum Silver oral tablet) 1 Tablets By Mouth Every day Unchanged olanzapine (ZyPREXA 2.5 mg Tab) 1 Tablets By Mouth Every day Unchanged pantoprazole (Pantoprazole [address] Tab) 1 Tablets By Mouth Every day Unchanged phytonadione (phytonadione 5 mg Tab) 1 Tablets By Mouth Every day Unchanged potassium chloride (Klor Con 10 mEq Cap-ER) 1 Tablets By Mouth 2 times a day Unchanged warfarin as directed Allergies Keflex (Anaphylactic reaction) metroNIDAZOLE (Hives) penicillins (Anaphylactic shock due to serum, Urticaria) sulfa drugs (Urticaria) Problems Ongoing - Any problem that you are currently receiving treatment for. Acute combined systolic and diastolic heart failure.. Allergic rhinitis Amnesia Aortic valve disorder Aortic valve regurgitation Aortic valve stenosis Asthma Atrial premature complex BMI 22.0-22.9, adult Chronic fatigue syndrome Chronic kidney disease stage 3 Congestive heart failure Cystocele without uterine prolapse Diabetes mellitus without complication Essential hypertension Gastroesophageal reflux disease Hemorrhoids Hyperlipidemia Hypothyroidism Insomnia Leukocytosis Lumbar radiculopathy Mitral valve regurgitation Neoplasm of uncertain behavior of skin of upper arm Palpitations Paroxysmal atrial fibrillation Paroxysmal supraventricular tachycardia Rheumatoid arthritis Seborrheic keratoses Senile osteoporosis Sinus node dysfunction Tricuspid valve regurgitation Varicose veins of lower extremity [facility]esto [facility] General Surgery Office/Clini c Noteon 12-05-2022 General Surgery Office/Clinic Note Chief Complaint follow up in-office excision HPI Staff 13 day post in-office excisional biopsy left arm lesion. Denies discomfort, bleeding or drainage. 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 Review of Systems ROS - Provider Constitutional: no fever, no sweats, no weight loss. Eyes: no glasses, no blurred vision, no visual loss. ENMT: no dentures, no hoarseness, no swallowing difficulties, no hearing loss, no ear infection(s), no nose bleeds. Cardiovascular: normal blood pressure, no chest pain, regular heartbeat, no heart murmur. Respiratory: no shortness of breath, no cough, no asthma, no wheezing. Gastrointestinal: no nausea, no vomiting, no diarrhea, no constipation, no blood in stool, no change in bowel habits, no abdominal pain, no hepatitis. Genitourinary: no kidney stones, no urine infection, no dysuria. Musculoskeletal: no pain, no weakness. Skin: no changing moles, no rash, no skin lumps. Neurologic: no seizures, no epilepsy, no headache. Psychiatric: no emotional or psychiatric problem. Heme/Lymph: no bleeding problems, no anemia, no blood clots, no transfusions. Allergy/Immunologic: no swollen lymph nodes/glands, no IV drug abuse. Other: Additional ROS info: Except as noted in the above Review of Systems and in the History of Present Illness, all other systems have been reviewed and are negative or noncontributory. Physical Exam skin: incision without erythema or drainage, no ecchymosis Assessment/Plan 1. 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 Follow-up No qualifying data available Problem List/Past Medical History Ongoing Acute combined systolic and diastolic heart failure.. Allergic rhinitis Amnesia Aortic valve disorder Aortic valve regurgitation Aortic valve stenosis Asthma Atrial premature complex BMI 22.0-22.9, adult Chronic fatigue syndrome Chronic kidney disease stage 3 Congestive heart failure Cystocele without uterine prolapse Diabetes mellitus without complication Essential hypertension Gastroesophageal reflux disease Hemorrhoids Hyperlipidemia Hypothyroidism Insomnia Leukocytosis Lumbar radiculopathy Mitral valve regurgitation Neoplasm of uncertain behavior of skin of upper arm Palpitations Paroxysmal atrial fibrillation Paroxysmal supraventricular tachycardia Rheumatoid arthritis Seborrheic keratoses Senile osteoporosis Sinus node dysfunction Squamous cell carcinoma in situ of skin Tricuspid valve regurgitation Varicose veins of lower extremity Historical No qualifying data Procedure/Surgical History Excision of squamous cell carcinoma (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 Medications amiodarone 100 mg Tab, 200 mg= 2 tab(s), Oral, BID atorvastatin 40 mg Tab, 40 mg= 1 tab(s), Oral, Daily Centrum Silver oral tablet, 1 tab(s), Oral, Daily cetirizine 10 mg Tab, 10 mg= 1 tab(s), Oral, Daily Cytomel 5 mcg Tab, 5 mcg= 1 tab(s), Oral, Daily DilTIAZem (Eqv-Dilacor XR) 240 mg/24 hours oral capsule, extended release, 240 mg= 1 cap(s), Oral, Daily doxepin 10 mg Cap, 10 mg= 1 cap(s), Oral, Once a day (at bedtime) escitalopram 10 mg Tab, 10 mg= 1 tab(s), Oral, Daily ferrous sulfate 325 mg Tab, 325 mg= 1 tab(s), Oral, BID hydrocortisone 2.5% Rectal Crm w/Appl, 1 manny, Rectal, BID Jardiance 10 mg oral tablet, 10 mg= 1 tab(s), Oral, qAM Klor Con 10 mEq Cap-ER, 10 mEq= 1 tab(s), Oral, BID Lasix 20 mg Tab, 20 mg= 1 tab(s), Oral, Daily levothyroxine 25 mcg (0.025 mg) Tab, 25 mcg= 1 tab(s), Oral, Daily metformin 500 mg Tab, 500 mg= 1 tab(s), Oral, BID Namenda XR 28 mg oral capsule, extended release, 28 mg= 1 cap(s), Oral, Daily Pantoprazole [address] Tab, 40 mg= 1 tab(s), Oral, Daily phytonadione 5 mg Tab, 5 mg= 1 tab(s), Oral, Daily Singulair 10 mg Tab, 10 mg= 1 tab(s), Oral, Daily warfarin ZyPREXA 2.5 mg Tab, 2.5 mg= 1 tab(s), Oral, Daily Allergies Keflex (Anaphylactic reaction) metroNIDAZOLE (Hives) penicillins (Anaphylactic shock due to serum, Urticaria) sulfa drugs (Urticaria) Social History Alcohol - Denies Alcohol Use, 11/14/2022 Substance Abuse - Denies Substance Abuse, 11/14/2022 Tobacco Former smoker, quit more than 30 days ago Tobacco Use:. Never Smokeless Tobacco Use:. Cigarettes, Stopped age 47 Years., 11/14/2022 Family History Family history is negative Immunizations Vaccine Date Status Comments SARS-CoV-2 (COVID-19) [id number] 07/25/2022 Recorded SARS-CoV-2 (COVID-19) [id number] vaccine 07/10/2022 (more content not included)... Normal [facility] Comment on above: Result Comment: Elec tronically Signed By: JAY BRYAN, Tom Jimenez\.br\Date and Time Signed: 12/05/22 15:41 EDT Pathology Noteon 11-29-2022 Pathology Note [id number]:127 [facility] Ambulatory Visit Summaryon 0 11-22-2022 Ambulatory Visit Summary GEMMA LEWIS :1935 Visit Date:11/22/2022 Ambulatory Visit Instructions Your Care Team Attending Physician - JAY BRYAN, Tom Jimenez Primary Care Physician - Colette Méndez MD This Is Your Medications List amiodarone (amiodarone 100 mg Tab) atorvastatin (atorvastatin 40 mg Tab) cetirizine (cetirizine 10 mg Tab) diltiazem (DilTIAZem (Eqv-Dilacor XR) 240 mg/24 hours oral capsule, extended release) doxepin (doxepin 10 mg Cap) empagliflozin (Jardiance 10 mg oral tablet) escitalopram (escitalopram 10 mg Tab) ferrous sulfate (ferrous sulfate 325 mg Tab) furosemide (Lasix 20 mg Tab) hydrocortisone topical (hydrocortisone 2.5% Rectal Crm w/Appl) levothyroxine (levothyroxine 25 mcg (0.025 mg) Tab) liothyronine (Cytomel 5 mcg Tab) memantine (Namenda XR 28 mg oral capsule, extended release) metformin (metformin 500 mg Tab) montelukast (Singulair 10 mg Tab) multivitamin with minerals (Centrum Silver oral tablet) olanzapine (ZyPREXA 2.5 mg Tab) pantoprazole (Pantoprazole [address] Tab) phytonadione (phytonadione 5 mg Tab) potassium chloride (Klor Con 10 mEq Cap-ER) warfarin Procedures Performed Abdominal hysterectomy, Appendectomy, Cardioversion, Excision of melanoma, Gastric stapling, Implantable cardiac pacemaker, Kyphoplasty of fracture of lumbar spine using fluoroscopic guidance. Medications What How Much When Instructions Unchanged amiodarone (amiodarone 100 mg Tab) 2 Tablets By Mouth 2 times a day Unchanged atorvastatin (atorvastatin 40 mg Tab) 1 Tablets By Mouth Every day Unchanged cetirizine (cetirizine 10 mg Tab) 1 Tablets By Mouth Every day Unchanged diltiazem (DilTIAZem (Eqv-Dilacor XR) 240 mg/ 24 hours oral capsule, extended release) 1 Capsules By Mouth Every day Unchanged doxepin (doxepin 10 mg Cap) 1 Capsules By Mouth Once a day (at bedtime) Unchanged empagliflozin (Jardiance 10 mg oral tablet) 1 Tablets By Mouth Once a day (in the morning) Unchanged escitalopram (escitalopram 10 mg Tab) 1 Tablets By Mouth Every day Unchanged ferrous sulfate (ferrous sulfate 325 mg Tab) 1 Tablets By Mouth 2 times a day Unchanged furosemide (Lasix 20 mg Tab) 1 Tablets By Mouth Every day Unchanged hydrocortisone topical (hydrocortisone 2.5% Rectal Crm w/ Appl) 1 Application By rectum 2 times a day Unchanged levothyroxine (levothyroxine 25 mcg (0.025 mg) Tab) 1 Tablets By Mouth Every day Unchanged liothyronine (Cytomel 5 mcg Tab) 1 Tablets By Mouth Every day Unchanged memantine (Namenda XR 28 mg oral capsule, extended release) 1 Capsules By Mouth Every day Unchanged metformin (metformin 500 mg Tab) 1 Tablets By Mouth 2 times a day Unchanged montelukast (Singulair 10 mg Tab) 1 Tablets By Mouth Every day Unchanged multivitamin with minerals (Centrum Silver oral tablet) 1 Tablets By Mouth Every day Unchanged olanzapine (ZyPREXA 2.5 mg Tab) 1 Tablets By Mouth Every day Unchanged pantoprazole (Pantoprazole [address] Tab) 1 Tablets By Mouth Every day Unchanged phytonadione (phytonadione 5 mg Tab) 1 Tablets By Mouth Every day Unchanged potassium chloride (Klor Con 10 mEq Cap-ER) 1 Tablets By Mouth 2 times a day Unchanged warfarin as directed Allergies Keflex (Anaphylactic reaction) metroNIDAZOLE (Hives) penicillins (Anaphylactic shock due to serum, Urticaria) sulfa drugs (Urticaria) Problems Ongoing - Any problem that you are currently receiving treatment for. Acute combined systolic and diastolic heart failure.. Allergic rhinitis Amnesia Aortic valve disorder Aortic valve regurgitation Aortic valve stenosis Asthma Atrial premature complex BMI 22.0-22.9, adult Chronic fatigue syndrome Chronic kidney disease stage 3 Congestive heart failure Cystocele without uterine prolapse Diabetes mellitus without complication Essential hypertension Gastroesophageal reflux disease Hemorrhoids Hyperlipidemia Hypothyroidism Insomnia Leukocytosis Lumbar radiculopathy Mitral valve regurgitation Neoplasm of uncertain behavior of skin of upper arm Palpitations Paroxysmal atrial fibrillation Paroxysmal supraventricular tachycardia Rheumatoid arthritis Seborrheic keratoses Senile osteoporosis Sinus node dysfunction Tricuspid valve regurgitation Varicose veins of lower extremity Normal [facility] General Surgery Office/Clini c Noteon 11-22-2022 General Surgery Office/Clinic Note Chief Complaint in-office excisional biopsy HPI Staff Presents for in-office excisional biopsy left upper arm. History of Present Illness 87 yo female on Coumadin here for excisional biopsy of left upper arm lesion; no change from recent evaluation. Review of Systems ROS - Provider Constitutional: no fever, no sweats, no weight loss. Eyes: no glasses, no blurred vision, no visual loss. ENMT: no dentures, no hoarseness, no swallowing difficulties, no hearing loss, no ear infection(s), no nose bleeds. Cardiovascular: normal blood pressure, no chest pain, regular heartbeat, no heart murmur. Respiratory: no shortness of breath, no cough, no asthma, no wheezing. Gastrointestinal: no nausea, no vomiting, no diarrhea, no constipation, no blood in stool, no change in bowel habits, no abdominal pain, no hepatitis. Genitourinary: no kidney stones, no urine infection, no dysuria. Musculoskeletal: no pain, no weakness. Skin: no changing moles, no rash, yes skin lumps. Neurologic: no seizures, no epilepsy, no headache. Psychiatric: no emotional or psychiatric problem. Heme/Lymph: no bleeding problems, no anemia, no blood clots, no transfusions. Allergy/Immunologic: no swollen lymph nodes/glands, no IV drug abuse. Other: Additional ROS info: Except as noted in the above Review of Systems and in the History of Present Illness, all other systems have been reviewed and are negative or noncontributory. Physical Exam skin: 8 mm raised firm nodule left lateral upper arm, no ulceration. Procedure patient brought to the procedure room, placed in supine position, area prepped and draped in sterile fashion; anesthetized with 1/2 % Marcaine with epinephrine; lesion excised in elliptical fashion down to subcutaneous fat; closed with interrupted 4-0 nylon sutures; total length 1.2 cm tolerated well; ebl < 3 ml; sterile dressing applied. Assessment/Plan 1. Neoplasm of uncertain behavior of skin of upper arm (D48.5: Neoplasm of uncertain behavior of skin) excised under local anesthesia, tolerated well; ebl < 3 ml; follow up in 10 days for suture removal; call sooner if problems/questions. Follow-up No qualifying data available Problem List/Past Medical History Ongoing Acute combined systolic and diastolic heart failure.. Allergic rhinitis Amnesia Aortic valve disorder Aortic valve regurgitation Aortic valve stenosis Asthma Atrial premature complex BMI 22.0-22.9, adult Chronic fatigue syndrome Chronic kidney disease stage 3 Congestive heart failure Cystocele without uterine prolapse Diabetes mellitus without complication Essential hypertension Gastroesophageal reflux disease Hemorrhoids Hyperlipidemia Hypothyroidism Insomnia Leukocytosis Lumbar radiculopathy Mitral valve regurgitation Neoplasm of uncertain behavior of skin of upper arm Palpitations Paroxysmal atrial fibrillation Paroxysmal supraventricular tachycardia Rheumatoid arthritis Seborrheic keratoses Senile osteoporosis Sinus node dysfunction Tricuspid valve regurgitation Varicose veins of lower extremity Historical No qualifying data Procedure/Surgical History Abdominal hysterectomy, Appendectomy, Cardioversion, Excision of melanoma, Gastric stapling, Implantable cardiac pacemaker, Kyphoplasty of fracture of lumbar spine using fluoroscopic guidance. Medications amiodarone 100 mg Tab, 200 mg= 2 tab(s), Oral, BID atorvastatin 40 mg Tab, 40 mg= 1 tab(s), Oral, Daily Centrum Silver oral tablet, 1 tab(s), Oral, Daily cetirizine 10 mg Tab, 10 mg= 1 tab(s), Oral, Daily Cytomel 5 mcg Tab, 5 mcg= 1 tab(s), Oral, Daily DilTIAZem (Eqv-Dilacor XR) 240 mg/24 hours oral capsule, extended release, 240 mg= 1 cap(s), Oral, Daily doxepin 10 mg Cap, 10 mg= 1 cap(s), Oral, Once a day (at bedtime) escitalopram 10 mg Tab, 10 mg= 1 tab(s), Oral, Daily ferrous sulfate 325 mg Tab, 325 mg= 1 tab(s), Oral, BID hydrocortisone 2.5% Rectal Crm w/Appl, 1 manny, Rectal, BID Jardiance 10 mg oral tablet, 10 mg= 1 tab(s), Oral, qAM Klor Con 10 mEq Cap-ER, 10 mEq= 1 tab(s), Oral, BID Lasix 20 mg Tab, 20 mg= 1 tab(s), Oral, Daily levothyroxine 25 mcg (0.025 mg) Tab, 25 mcg= 1 tab(s), Oral, Daily metformin 500 mg Tab, 500 mg= 1 tab(s), Oral, BID Namenda XR 28 mg oral capsule, extended release, 28 mg= 1 cap(s), Oral, Daily Pantoprazole [address] Tab, 40 mg= 1 tab(s), Oral, Daily phytonadione 5 mg Tab, 5 mg= 1 tab(s), Oral, Daily Singulair 10 mg Tab, 10 mg= 1 tab(s), Oral, Daily warfarin ZyPREXA 2.5 mg Tab, 2.5 mg= 1 tab(s), Oral, Daily Allergies Keflex (Anaphylactic reaction) metroNIDAZOLE (Hives) penicillins (Anaphylactic shock due to serum, Urticaria) sulfa drugs (Urticaria) Social History Alcohol - Denies Alcohol Use, 11/14/2022 Substance Abuse - Denies Substance Abuse, 11/14/2022 Tobacco Former smoker, quit more than 30 days ago Tobacco Use:. Never Smokeless Tobacco Use:. Cigarettes, Stopped age 47 Years., 11/14 (more content not included)... Normal [facility] Comment on above: Result Comment: Elec tronically Signed By: Tom THOMPSON MD\.br\Date and Time Signed: 11/22/22 15:51 EDT Ambulatory Visit Summaryon 0 11-14-2022 Ambulatory Visit Summary CEDKEVON PASCUALALEXEY Blackmon :1935 Visit Date:11/14/2022 Ambulatory Visit Instructions Your Care Team Attending Physician - Tom THOMPSON MD Primary Care Physician - Colette Méndez MD This Is Your Medications List Contact prescribing physician if questions or concerns amiodarone (amiodarone 100 mg Tab) atorvastatin (atorvastatin 40 mg Tab) cetirizine (cetirizine 10 mg Tab) diltiazem (DilTIAZem (Eqv-Dilacor XR) 240 mg/24 hours oral capsule, extended release) doxepin (doxepin 10 mg Cap) empagliflozin (Jardiance 10 mg oral tablet) escitalopram (escitalopram 10 mg Tab) ferrous sulfate (ferrous sulfate 325 mg Tab) furosemide (Lasix 20 mg Tab) hydrocortisone topical (hydrocortisone 2.5% Rectal Crm w/Appl) levothyroxine (levothyroxine 25 mcg (0.025 mg) Tab) liothyronine (Cytomel 5 mcg Tab) memantine (Namenda XR 28 mg oral capsule, extended release) metformin (metformin 500 mg Tab) montelukast (Singulair 10 mg Tab) multivitamin with minerals (Centrum Silver oral tablet) olanzapine (ZyPREXA 2.5 mg Tab) pantoprazole (Pantoprazole [address] Tab) phytonadione (phytonadione 5 mg Tab) potassium chloride (Klor Con 10 mEq Cap-ER) warfarin Procedures Performed Abdominal hysterectomy, Appendectomy, Cardioversion, Excision of melanoma, Gastric stapling, Implantable cardiac pacemaker, Kyphoplasty of fracture of lumbar spine using fluoroscopic guidance. Discharge Vitals Heart Rate (Peripheral) 70 Respiratory Rate 16 Blood Pressure 116/60 Height 170 cm Height 67 in Weight 63.6 kg Weight 139.92 lb BMI 22.01 What to do next Scheduled Follow-Up Appointments Sunday 3:20 PM EDT With: JAY BRYAN, Tom Jimenez Where: General Surgery Jay/Debi Young Normal [facility] Office Visiton 10-31-2022 Follow-up visit [id number] Carrie Lewis 1935 F Date Provider Department Center 10/31/2022 ROB ARAMBULA TYSON Marie No family history on file Level of Service:84366 [place] OFFICE/OUTPATIENT ESTABLISHED MOD MDM 30-39 MIN Reason for Visit and Comments: Follow-up [683212] Normal [facility] Physician Referralon 023 Physician Referral [id number]:127 Normal [facility] Physician Referral [id number]:127 Normal [facility] PROTIMEon 08-02-2022 INR Coag (PPP) [Relative time] 1.12 {INR} Normal [facility] Comment on above: Performed By: #### P OCGLUC #### [facility] [address] [place] [address] Dr. Nancy Montalvo INR GUIDELINES SEE BELOW Normal [facility] Comment on above: Result Comment: ADITYA RED INR: 2.0 - 3.0 CONDITIONS NOT LISTED BELOW 2.5 - 3.5 FOR PROSTHETIC HEART VALVE REPLACEMENT 2.5 - 3.5 RECURRENT THROMBOSIS Performed By: #### P OCGLUC #### [facility] [address] [place] [address] Dr. Nancy Montalvo PT Coag (PPP) [Time] 11.8 s Critically high 9.0-11.6 [facility] Comment on above: Performed By: #### P OCGLUC #### [facility] [address] [place] [address] Dr. Nancy Montalvo PROTIMEon 07-26-2022 INR Coag (PPP) [Relative time] 1.33 {INR} Normal [facility] Comment on above: Performed By: #### P OCGLUC #### [facility] [address] [place] [address] Dr. Nancy Montalvo INR GUIDELINES SEE BELOW Normal [facility] Comment on above: Result Comment: ADITYA RED INR: 2.0 - 3.0 CONDITIONS NOT LISTED BELOW 2.5 - 3.5 FOR PROSTHETIC HEART VALVE REPLACEMENT 2.5 - 3.5 RECURRENT THROMBOSIS Performed By: #### P OCGLUC #### [facility] [address] [place] [address] Dr. Nancy Montalvo PT Coag (PPP) [Time] 13.9 s Critically high 9.0-11.6 [facility] Comment on above: Performed By: #### P OCGLUC #### [facility] [address] [place] [address] Dr. Nancy Montalvo PROTIMEon 07-24-2022 INR Coag (PPP) [Relative time] 1.41 {INR} Normal [facility] Comment on above: Performed By: #### C VDTBH #### [facility] [address] [place] [address] Dr. Nancy Montalvo INR GUIDELINES SEE BELOW Normal [facility] Comment on above: Result Comment: ADITYA RED INR: 2.0 - 3.0 CONDITIONS NOT LISTED BELOW 2.5 - 3.5 FOR PROSTHETIC HEART VALVE REPLACEMENT 2.5 - 3.5 RECURRENT THROMBOSIS Performed By: #### C VDTBH #### [facility] [address] [place] [address] Dr. Nancy Montalvo PT Coag (PPP) [Time] 14.7 s Critically high 9.0-11.6 [facility] Comment on above: Performed By: #### C VDTBH #### [facility] [address] [place] [address] Dr. Nancy Montalvo CBC W MANUAL DIFFon 07-22-19 ANISOCYTOSIS 1+ Normal [facility] Comment on above: Performed By: #### C VDTBH #### [facility] [address] [place] [address] Dr. Nancy Montalvo ATYPICAL LYMPH # Normal [facility] Comment on above: Performed By: #### C VDTBH #### [facility] [address] [place] [address] Dr. Nancy Montalvo ATYPICAL LYMPH % Normal [facility] Comment on above: Performed By: #### C VDTBH #### [facility] [address] [place] [address] Dr. Nancy Montalvo BAND # 0.2 103/ul Normal 0.0-0.3 [facility] Comment on above: Performed By: #### C VDTBH #### [facility] [address] [place] [address] Dr. Nancy Montalvo BAND % 2 % Normal 0-5 [facility] Comment on above: Performed By: #### C VDTBH #### [facility] [address] [place] [address] Dr. Nancy Montalvo BASOM # 0.00 103/ul Normal 0.00-0.10 [facility] Comment on above: Performed By: #### C VDTBH #### [facility] [address] [place] [address] Dr. Nancy Montalvo BASOM % 0.0 % Critically low 0.2-2.0 [facility] Comment on above: Performed By: #### C VDTBH #### [facility] [address] [place] [address] Dr. Nancy Montalvo BLAST # Normal [facility] Comment on above: Performed By: #### C VDTBH #### [facility] [address] [place] [address] Dr. Nancy Montalvo BLAST % Normal [facility] Comment on above: Performed By: #### C VDTBH #### [facility] [address] [place] [address] Dr. Nancy Montalvo CORRECTED WBC Normal 4.0-11.0 [facility] Comment on above: Performed By: #### C VDTBH #### [facility] [address] [place] [address] Dr. Nancy Montalvo EOS # 0.10 103/ul Normal 0.00-0.70 [facility] Comment on above: Performed By: #### C VDTBH #### [facility] [address] [place] [address] Dr. Nancy Montalvo EOS% 1.0 % Normal 0.9-7.0 [facility] Comment on above: Performed By: #### C VDTBH #### [facility] [address] [place] [address] Dr. Nancy Montalvo GIANT PLATELETS SEEN Normal [facility] Comment on above: Performed By: #### C VDTBH #### [facility] [address] [place] [address] Dr. Nancy Montalvo HCT 30.2 % Critically low 36.0-48.0 [facility] Comment on above: Performed By: #### C VDTBH #### [facility] [address] [place] [address] Dr. Nancy Montalvo HGB 9.7 g/dl Critically low 12.0-16.0 [facility] Comment on above: Performed By: #### C VDTBH #### [facility] [address] [place] [address] Dr. Nancy Montalvo LYMPHM # 1.72 103/ul Normal 1.20-3.80 [facility] Comment on above: Performed By: #### C VDTBH #### [facility] [address] [address] [address] Nancy Montalvo LYMPHM% 17.0 % Critically low 20.5-60.0 [facility] Comment on above: Performed By: #### C VDTBH #### [facility] [address] [place] [address] Dr. Nancy Montalvo MCH 31.5 pg Normal 26.7-34.0 [facility] Comment on above: Performed By: #### C VDTBH #### [facility] [address] [place] [address] Dr. Nancy Montalvo MCHC 32.1 g/dl Normal 29.9-35.2 [facility] Comment on above: Performed By: #### C VDTBH #### [facility] [address] [place] [address] Dr. Nancy Montalvo MCV 98.1 fL Normal 81.0-99.0 [facility] Comment on above: Performed By: #### C VDTBH #### [facility] [address] [place] [address] Dr. Nancy Montalvo METAMYELOCYTE # Normal [facility] Comment on above: Performed By: #### C VDTBH #### [facility] [address] [place] [address] Dr. Nancy Montalvo METAMYELOCYTE % Normal [facility] Comment on above: Performed By: #### C VDTBH #### [facility] [address] [place] [address] Dr. Nancy Montalvo MONOM# 0.61 103/ul Normal 0.30-0.80 [facility] Comment on above: Performed By: #### C VDTBH #### [facility] [address] [address] [address] Nancy Montalvo MONOM% 6.0 % Normal 1.7-12.0 [facility] Comment on above: Performed By: #### C VDTBH #### [facility] [address] [place] [address] Dr. Nancy Montalvo MPV 11.3 fL Normal 9.5-13.5 [facility] Comment on above: Performed By: #### C VDTBH #### [facility] [address] [place] [address] Dr. Nancy Montalvo MYELOCYTE # Normal [facility] Comment on above: Performed By: #### C VDTBH #### [facility] [address] [place] [address] Dr. Nancy Montalvo MYELOCYTE % Normal [facility] Comment on above: Performed By: #### C VDTBH #### [facility] [address] [place] [address] Dr. Nancy Montalvo NRBC Normal [facility] Comment on above: Performed By: #### C VDTBH #### [facility] [address] [place] [address] Dr. Nancy Montalvo OVALOCYTES SLIGHT Normal [facility] Comment on above: Performed By: #### C VDTBH #### [facility] [address] [place] [address] Dr. Nancy Montalvo PLT 277 103/ul Normal 150-450 [facility] Comment on above: Performed By: #### C VDTBH #### [facility] [address] [place] [address] Dr. Nancy Montalvo POIKILOCYTOSIS SLIGHT Normal [facility] Comment on above: Performed By: #### C VDTBH #### [facility] [address] [place] [address] Dr. Nancy Montalvo RBC 3.08 106/ul Critically low 4.20-5.40 [facility] Comment on above: Performed By: #### C VDTBH #### [facility] [address] [place] [address] Dr. Nancy Montalvo RDW 15.8 % Critically high 11.0-15.0 [facility] Comment on above: Performed By: #### C VDTBH #### [facility] [address] [place] [address] Dr. Nancy Montalvo SEG # 7.47 103/ul Critically high 1.40-6.50 [facility] Comment on above: Performed By: #### C VDTBH #### [facility] [address] [place] [address] Dr. Nancy Montalvo SEG % 74.0 % Normal 43.0-75.0 [facility] Comment on above: Performed By: #### C VDTBH #### [facility] [address] [place] [address] Dr. Nancy Montalvo TEAR DROP CELLS SLIGHT Normal [facility] Comment on above: Performed By: #### C VDTBH #### [facility] [address] [place] [address] Dr. Nancy Montalvo WBC 10.1 103/ul Normal 4.0-11.0 [facility] Comment on above: Performed By: #### C VDTBH #### [facility] [address] [place] [address] Dr. Nancy Montalvo CULTURE URINEon 07-21-2022 CULTURE URINE Culture Observations : NO GROWTH. Normal [facility] Comment on above: Performed By: #### A 1C #### [facility] [address] [place] [address] Dr. Nancy Montalvo PROF 14(COMP METB)on 023 Albumin [Mass/Vol] 1.6 g/dL Critically low 3.4-5.0 [facility] Comment on above: Performed By: #### C VDTBH #### [facility] [address] [place] [address] Dr. Nancy Montalvo Albumin/Globulin [Mass ratio] 0.4 {ratio} Normal [facility] Comment on above: Performed By: #### C VDTBH #### [facility] [address] [address] [address] Nancy Montalvo ALP [Catalytic activity/Vol] 112 U/L Normal 46-116 [facility] Comment on above: Performed By: #### C VDTBH #### [facility] [address] [address] [address] Nancy Montalvo ALT [Catalytic activity/Vol] 36 U/L Normal 14-59 [facility] Comment on above: Performed By: #### C VDTBH #### [facility] [address] [address] [address] Nancy Montalvo Anion gap [Moles/Vol] 12.2 mmol/L Normal [facility] Comment on above: Performed By: #### C VDTBH #### [facility] [address] [place] [address] Dr. Nancy Montalvo AST [Catalytic activity/Vol] 29 U/L Normal 15-37 [facility] Comment on above: Performed By: #### C VDTBH #### [facility] [address] [place] [address] Dr. Nancy Montalvo Bilirubin [Mass/Vol] 0.2 mg/dL Normal 0.2-1.0 [facility] Comment on above: Performed By: #### C VDTBH #### [facility] [address] [place] [address] Dr. Nancy Montalvo Calcium [Mass/Vol] 8.2 mg/dL Critically low 8.5-10.1 [facility] Comment on above: Performed By: #### C VDTBH #### [facility] [address] [place] [address] Dr. Nancy Montalvo Chloride [Moles/Vol] 110 mmol/L Critically high 98-107 [facility] Comment on above: Performed By: #### C VDTBH #### [facility] [address] [place] [address] Dr. Nancy Montalvo CO2 [Moles/Vol] 21.1 mmol/L Normal 21.0-32.0 [facility] Comment on above: Performed By: #### C VDTBH #### [facility] [address] [place], [place] [id number] Dr. Nancy Montalvo Creatinine [Mass/Vol] 1.83 mg/dL Critically high 0.55-1.02 [facility] Comment on above: Performed By: #### C VDTBH #### [facility] [address] [address] [address] Nancy Montalvo EGFR-AF MALDIVIAN 32 mL/min/1.73m2 Critically low >=60 [facility] Comment on above: Performed By: #### C VDTBH #### [facility] [address] [address] [address] Nancy Montalvo EGFR-NON AF MALDIVIAN 26 mL/min/1.73m2 Critically low >=60 [facility] Comment on above: Performed By: #### C VDTBH #### [facility] [address] [place] [address] Dr. Nancy Montalvo Globulin (S) [Mass/Vol] 3.9 g/dL Normal [facility] Comment on above: Performed By: #### C VDTBH #### [facility] [address] [place] [address] Dr. Nancy Montalvo Glucose [Mass/Vol] 123 mg/dL Critically high 74-106 [facility] Comment on above: Performed By: #### C VDTBH #### [facility] [address] [place] [address] Dr. Nancy Montalvo Potassium [Moles/Vol] 3.3 mmol/L Critically low 3.5-5.1 [facility] Comment on above: Performed By: #### C VDTBH #### [facility] [address] [place] [address] Dr. Nancy Montalvo Protein [Mass/Vol] 5.5 g/dL Critically low 6.4-8.2 [facility] Comment on above: Performed By: #### C VDTBH #### [facility] [address] [place] [address] Dr. Nancy Montalvo Sodium [Moles/Vol] 140 mmol/L Normal 136-145 [facility] Comment on above: Performed By: #### C VDTBH #### [facility] [address] [place] [address] Dr. Nancy Montalvo Urea nitrogen [Mass/Vol] 27.0 mg/dL Critically high 7.0-18.0 [facility] Comment on above: Performed By: #### C VDTBH #### [facility] [address] [place] [address] Dr. Nancy Montalvo Urea nitrogen/Creatinine [Mass ratio] 14.8 mg/mg Normal [facility] Comment on above: Performed By: #### C VDTBH #### [facility] [address] [place] [address] Dr. Nancy Montalvo PROTIMEon 07-21-2022 INR Coag (PPP) [Relative time] 3.20 {INR} Normal [facility] Comment on above: Performed By: #### P OCGLUC #### [facility] [address] [place] [address] Dr. Nancy Montalvo INR GUIDELINES SEE BELOW Normal [facility] Comment on above: Result Comment: ADITYA RED INR: 2.0 - 3.0 CONDITIONS NOT LISTED BELOW 2.5 - 3.5 FOR PROSTHETIC HEART VALVE REPLACEMENT 2.5 - 3.5 RECURRENT THROMBOSIS Performed By: #### P OCGLUC #### [facility] [address] [place] [address] Dr. Nancy Montalvo PT Coag (PPP) [Time] 31.8 s Critically high 9.0-11.6 [facility] Comment on above: Performed By: #### P OCGLUC #### [facility] [address] [place] [address] Dr. Nancy Montalvo UA (CLEAN/CATCH) GEAR STRAIGHTENER/MICRO I F IND.on 07-21-2022 Bilirubin Ql (U) Negative Normal NEGATIVE [facility] Comment on above: Performed By: #### C MP #### [facility] [address] [place] [address] Dr. Nancy Montalvo Clarity (U) CLEAR Normal CLEAR [facility] Comment on above: Performed By: #### C MP #### [facility] [address] [place] [address] Dr. Nancy Montalvo Color (U) LT. YELLOW Normal YELLOW [facility] Comment on above: Performed By: #### C MP #### [facility] [address] [place] [address] Dr. Nancy Montalvo Glucose Ql (U) 500 mg/dl Abnormal NEGATIVE [facility] Comment on above: Performed By: #### C MP #### [facility] [address] [place] [address] Dr. Nancy Montalvo Hemoglobin Ql (U) TRACE-INTACT Abnormal NEGATIVE [facility] Comment on above: Performed By: #### C MP #### [facility] [address] [place] [address] Dr. Nancy Montalvo Ketones Ql (U) Negative Normal NEGATIVE [facility] Comment on above: Performed By: #### C MP #### [facility] [address] [place] [address] Dr. Nancy Montalvo LEUKOCYTES LARGE Abnormal NEGATIVE [facility] Comment on above: Performed By: #### C MP #### [facility] [address] [place] [address] Dr. Nancy Montalvo Nitrite Ql (U) Negative Normal NEGATIVE [facility] Comment on above: Performed By: #### C MP #### [facility] [address] [place] [address] Dr. Nancy Montalvo pH (U) 5.5 [pH] Normal 5-9 [facility] Comment on above: Performed By: #### C MP #### [facility] [address] [place] [address] Dr. Nancy Montalvo SPEC GRAVITY 1.010 Normal 1.005-<=1.0 25 [facility] Comment on above: Performed By: #### C MP #### [facility] [address] [place] [address] Dr. Nancy Montalvo UA PROTEIN 30 mg/dl Abnormal NEGATIVE/ TRACE [facility] Comment on above: Performed By: #### C MP #### [facility] [address] [place] [address] Dr. Nancy Montalvo UR MICRO IND INDICATED Normal [facility] Comment on above: Performed By: #### C MP #### [facility] [address] [place] [address] Dr. Nancy Montalvo Urobilinogen Qn (U) 0.2 {Grant'U}/dL Normal 0.2 - 1. 0 [facility] Comment on above: Performed By: #### C MP #### [facility] [address] [place] [address] Dr. Nancy Montalvo URINE MICROSCOPIC ONLYon BACTERIA MODERATE Abnormal NONE SEEN [facility] Comment on above: Performed By: #### C MP #### [facility] [address] [place] [address] Dr. Nancy Montalvo Bacteria identified Cx Nom (U) INDICATED Normal [facility] Comment on above: Performed By: #### C MP #### [facility] [address] [place] [address] Dr. Nancy Montalvo CAST NONE SEEN Normal NONE SEEN [facility] Comment on above: Performed By: #### C MP #### [facility] [address] [place] [address] Dr. Nancy Montalvo Crystals LM Nom (Urine sed) NONE SEEN Normal NONE SEEN [facility] Comment on above: Performed By: #### C MP #### [facility] [address] [place] [address] Dr. Nancy Montalvo Epithelial cells LM Ql (Urine sed) FEW Abnormal NONE SEEN /RARE [facility] Comment on above: Performed By: #### C MP #### [facility] [address] [place] [address] Dr. Nancy Montalvo MUCOUS NONE SEEN Normal NONE SEEN [facility] Comment on above: Performed By: #### C MP #### [facility] [address] [place] [address] Dr. Nancy Montalvo RBC 2-5 Abnormal 0-2 [facility] Comment on above: Performed By: #### C MP #### [facility] [address] [place] [address] Dr. Nancy Montalvo WBC (U) [#/Vol] /uL Abnormal NONE SEEN [facility] Comment on above: Performed By: #### C MP #### [facility] [address] [place] [address] Dr. Nancy Montalvo YEAST PRESENT Abnormal NONE SEEN [facility] Comment on above: Performed By: #### C MP #### [facility] [address] [place] [address] Dr. Nancy Montalvo PROTIMEon 07-19-2022 INR Coag (PPP) [Relative time] 8.00 {INR} Critically high [facility] Comment on above: Performed By: #### P OCGLUC #### [facility] [address] [place] [address] Dr. Nancy Montalvo INR GUIDELINES SEE BELOW Normal [facility] Comment on above: Result Comment: ADITYA RED INR: 2.0 - 3.0 CONDITIONS NOT LISTED BELOW 2.5 - 3.5 FOR PROSTHETIC HEART VALVE REPLACEMENT 2.5 - 3.5 RECURRENT THROMBOSIS Performed By: #### P OCGLUC #### [facility] [address] [place] [address] Dr. Nancy Montalvo PT Coag (PPP) [Time] 90.0 s Critically high 9.0-11.6 [facility] Comment on above: Performed By: #### P OCGLUC #### [facility] [address] [place] [address] Dr. Nancy Montalvo CBC AUTO DIFFon 07-14-2022 BASO # 0.0 103/ul Normal 0.0-0.1 [facility] Comment on above: Performed By: #### P OCGLUC #### [facility] [address] [place] [address] Dr. Nancy Montalvo Basophils/100 WBC (Bld) 0.2 % Normal 0.2-2.0 [facility] Comment on above: Performed By: #### P OCGLUC #### [facility] [address] [place] [address] Dr. Nancy Montalvo EO # 0.1 103/ul Normal 0.0-0.7 [facility] Comment on above: Performed By: #### P OCGLUC #### [facility] [address] [place] [address] Dr. Nancy Montalvo Eosinophils/100 WBC (Bld) 0.4 % Critically low 0.9-7.0 [facility] Comment on above: Performed By: #### P OCGLUC #### [facility] [address] [place] [address] Dr. Nancy Montalvo Erythrocyte distribution width (RBC) [Ratio] 14.0 % Normal 11.0-15.0 [facility] Comment on above: Performed By: #### P OCGLUC #### [facility] [address] [place] [address] Dr. Nancy Montalvo Hematocrit (Bld) [Volume fraction] 30.8 % Critically low 36.0-48.0 [facility] Comment on above: Performed By: #### P OCGLUC #### [facility] [address] [place] [address] Dr. Nancy Montalvo Hemoglobin (Bld) [Mass/Vol] 9.5 g/dL Critically low 12.0-16.0 [facility] Comment on above: Performed By: #### P OCGLUC #### [facility] [address] [place] [address] Dr. Nancy Montalvo IG # 0.17 10e3/ul Critically high 0.00-0.03 [facility] Comment on above: Performed By: #### P OCGLUC #### [facility] [address] [place] [address] Dr. Nancy Montalvo IG % 1.3 % Critically high 0.0-0.5 [facility] Comment on above: Performed By: #### P OCGLUC #### [facility] [address] [place] [address] Dr. Nancy Montalvo LYMPH # 1.4 103/ul Normal 1.2-3.8 [facility] Comment on above: Performed By: #### P OCGLUC #### [facility] [address] [place] [address] Dr. Nancy Montalvo Lymphocytes/100 WBC (Bld) 10.7 % Critically low 20.5-60.0 [facility] Comment on above: Performed By: #### P OCGLUC #### [facility] [address] [place] [address] Dr. Nancy Montalvo MANUAL DIFF REQ NO Normal [facility] Comment on above: Performed By: #### P OCGLUC #### [facility] [address] [place] [address] Dr. Nancy Montalvo MCH (RBC) [Entitic mass] 30.5 pg Normal 26.7-34.0 [facility] Comment on above: Performed By: #### P OCGLUC #### [facility] [address] [place] [address] Dr. Nancy Montalvo MCHC (RBC) [Mass/Vol] 30.8 g/dL Normal 29.9-35.2 [facility] Comment on above: Performed By: #### P OCGLUC #### [facility] [address] [place] [address] Dr. Nancy Montalvo MCV (RBC) [Entitic vol] 99.0 fL Normal 81.0-99.0 [facility] Comment on above: Performed By: #### P OCGLUC #### [facility] [address] [place] [address] Dr. Nancy Montalvo MONO # 0.6 103/ul Normal 0.3-0.8 [facility] Comment on above: Performed By: #### P OCGLUC #### [facility] [address] [place] [address] Dr. Nancy Montalvo Monocytes/100 WBC (Bld) 5.0 % Normal 1.7-12.0 [facility] Comment on above: Performed By: #### P OCGLUC #### [facility] [address] [place] [address] Dr. Nancy Montalvo NEUT # 10.4 103/ul Critically high 1.4-6.5 The [facility] Comment on above: Performed By: #### P OCGLUC #### [facility] [address] [place] [address] Dr. Nancy Montalvo Neutrophils/100 WBC (Bld) 82.4 % Critically high 43.0-75.0 [facility] Comment on above: Performed By: #### P OCGLUC #### [facility] [address] [place] [address] Dr. Nancy Montalvo Platelet mean volume (Bld) [Entitic vol] 11.9 fL Normal 9.5-13.5 [facility] Comment on above: Performed By: #### P OCGLUC #### [facility] [address] [place] [address] Dr. Nancy Montalvo PLT 136 103/ul Critically low 150-450 [facility] Comment on above: Performed By: #### P OCGLUC #### [facility] [address] [address] [address] Nancy Montalvo RBC 3.11 106/ul Critically low 4.20-5.40 [facility] Comment on above: Performed By: #### P OCGLUC #### [facility] [address] [place] [address] Dr. Nancy Montalvo WBC 12.7 103/ul Critically high 4.0-11.0 [facility] Comment on above: Performed By: #### P OCGLUC #### [facility] [address] [place] [address] Dr. Nancy Montalvo PROF 14(COMP METB)on 023 Albumin [Mass/Vol] 1.7 g/dL Critically low 3.4-5.0 [facility] Comment on above: Performed By: #### B [id number] #### [facility] [address] [place] [address] Dr. Nancy Montalvo Albumin/Globulin [Mass ratio] 0.5 {ratio} Normal [facility] Comment on above: Performed By: #### B [id number] #### [facility] [address] [place] [address] Dr. Nancy Montalvo ALP [Catalytic activity/Vol] 97 U/L Normal 46-116 [facility] Comment on above: Performed By: #### B [id number] #### [facility] [address] [place] [address] Dr. Nancy Montalvo ALT [Catalytic activity/Vol] 65 U/L Critically high 14-59 [facility] Comment on above: Performed By: #### B [id number] #### [facility] [address] [place], [place] [id number] Dr. Nancy Montalvo Anion gap [Moles/Vol] 15.2 mmol/L Normal [facility] Comment on above: Performed By: #### B [id number] #### [facility] [address] [place] [address] Dr. Nancy Montalvo AST [Catalytic activity/Vol] 28 U/L Normal 15-37 [facility] Comment on above: Performed By: #### B [id number] #### [facility] [address] [place] [address] Dr. Nancy Montalvo Bilirubin [Mass/Vol] 0.4 mg/dL Normal 0.2-1.0 [facility] Comment on above: Performed By: #### B [id number] #### [facility] [address] [place] [address] Dr. Nancy Montalvo Calcium [Mass/Vol] 8.4 mg/dL Critically low 8.5-10.1 [facility] Comment on above: Performed By: #### B [id number] #### [facility] [address] [place] [address] Dr. Nancy Montalvo Chloride [Moles/Vol] 108 mmol/L Critically high 98-107 [facility] Comment on above: Performed By: #### B [id number] #### [facility] [address] [place] [address] Dr. Nancy Montalvo CO2 [Moles/Vol] 24.6 mmol/L Normal 21.0-32.0 [facility] Comment on above: Performed By: #### B [id number] #### [facility] [address] [place] [address] Dr. Nancy Montalvo Creatinine [Mass/Vol] 2.22 mg/dL Critically high 0.55-1.02 [facility] Comment on above: Performed By: #### B [id number] #### [facility] [address] [place] [address] Dr. Nancy Montalvo EGFR-AF MALDIVIAN 25 mL/min/1.73m2 Critically low >=60 [facility] Comment on above: Performed By: #### [id number] #### [facility] [address] [address] [address] Nancy Montalvo EGFR-NON AF MALDIVIAN 21 mL/min/1.73m2 Critically low >=60 [facility] Comment on above: Performed By: #### B [id number] #### [facility] [address] [address] [address] Nancy Montalvo Globulin (S) [Mass/Vol] 3.4 g/dL Normal [facility] Comment on above: Performed By: #### [id number] #### [facility] [address] [address] [address] Nancy Montalvo Glucose [Mass/Vol] 86 mg/dL Normal 74-106 [facility] Comment on above: Performed By: #### B [id number] #### [facility] [address] [address] [address] Nancy Montalvo Potassium [Moles/Vol] 3.8 mmol/L Normal 3.5-5.1 [facility] Comment on above: Performed By: #### B [id number] #### [facility] [address] [address] [address] Nancy Montalvo Protein [Mass/Vol] 5.1 g/dL Critically low 6.4-8.2 Th e [facility] Comment on above: Performed By: #### [id number] #### [facility] [address] [address] [address] Nancy Montalvo Sodium [Moles/Vol] 144 mmol/L Normal 136-145 The [facility] Comment on above: Performed By: #### B [id number] #### [facility] [address] [address] [address] Nancy Montalvo Urea nitrogen [Mass/Vol] 34.0 mg/dL Critically high 7.0-18.0 [facility] Comment on above: Performed By: #### B [id number] #### [facility] [address] [address] [address] Nancy Montalvo Urea nitrogen/Creatinine [Mass ratio] 15.3 mg/mg Normal [facility] Comment on above: Performed By: #### B [id number] #### [facility] [address] [place] [address] Dr. Nancy Montalvo PROTIMEon 07-14-2022 INR Coag (PPP) [Relative time] 3.39 {INR} Normal The [facility] Comment on above: Performed By: #### P OCGLUC #### [facility] [address] [place] [address] Dr. Nancy Montalvo INR GUIDELINES SEE BELOW Normal [facility] Comment on above: Result Comment: ADITYA RED INR: 2.0 - 3.0 CONDITIONS NOT LISTED BELOW 2.5 - 3.5 FOR PROSTHETIC HEART VALVE REPLACEMENT 2.5 - 3.5 RECURRENT THROMBOSIS Performed By: #### P OCGLUC #### [facility] [address] [place] [address] Dr. Nancy Montalvo PT Coag (PPP) [Time] 33.5 s Critically high 9.0-11.6 [facility] Comment on above: Performed By: #### P OCGLUC #### [facility] [address] [place] [address] Dr. Nancy Montalvo CBC AUTO DIFFon 07-13-2022 BASO # 0.0 103/ul Normal 0.0-0.1 [facility] Comment on above: Performed By: #### P OCGLUC #### [facility] [address] [place] [address] Dr. Nancy Montalvo Basophils/100 WBC (Bld) 0.3 % Normal 0.2-2.0 [facility] Comment on above: Performed By: #### P OCGLUC #### [facility] [address] [place] [address] Dr. Nancy Montalvo EO # 0.1 103/ul Normal 0.0-0.7 [facility] Comment on above: Performed By: #### P OCGLUC #### [facility] [address] [place] [address] Dr. Nancy Montalvo Eosinophils/100 WBC (Bld) 0.4 % Critically low 0.9-7.0 [facility] Comment on above: Performed By: #### P OCGLUC #### [facility] [address] [place], [place] [id number] Dr. Nancy Montalvo Erythrocyte distribution width (RBC) [Ratio] 13.4 % Normal 11.0-15.0 [facility] Comment on above: Performed By: #### P OCGLUC #### [facility] [address] [place] [address] Dr. Nancy Montalvo Hematocrit (Bld) [Volume fraction] 29.9 % Critically low 36.0-48.0 [facility] Comment on above: Performed By: #### P OCGLUC #### [facility] [address] [place] [address] Dr. Nancy Montalvo Hemoglobin (Bld) [Mass/Vol] 9.5 g/dL Critically low 12.0-16.0 [facility] Comment on above: Performed By: #### P OCGLUC #### [facility] [address] [place] [address] Dr. Nancy Montalvo IG # 0.16 10e3/ul Critically high 0.00-0.03 [facility] Comment on above: Performed By: #### P OCGLUC #### [facility] [address] [place] [address] Dr. Nancy Montalvo IG % 1.4 % Critically high 0.0-0.5 [facility] Comment on above: Performed By: #### P OCGLUC #### [facility] [address] [place] [address] Dr. Nancy Montalvo LYMPH # 1.0 103/ul Critically low 1.2-3.8 [facility] Comment on above: Performed By: #### P OCGLUC #### [facility] [address] [place] [address] Dr. Nancy Montalvo Lymphocytes/100 WBC (Bld) 8.4 % Critically low 20.5-60.0 [facility] Comment on above: Performed By: #### P OCGLUC #### [facility] [address] [place] [address] Dr. Nancy Montalvo MANUAL DIFF REQ NO Normal [facility] Comment on above: Performed By: #### P OCGLUC #### [facility] [address] [place], [place] [id number] Dr. Nancy Montalvo MCH (RBC) [Entitic mass] 31.3 pg Normal 26.7-34.0 [facility] Comment on above: Performed By: #### P OCGLUC #### [facility] [address] [place] [address] Dr. Nancy Montalvo MCHC (RBC) [Mass/Vol] 31.8 g/dL Normal 29.9-35.2 [facility] Comment on above: Performed By: #### P OCGLUC #### [facility] [address] [place] [address] Dr. Nancy Montalvo MCV (RBC) [Entitic vol] 98.4 fL Normal 81.0-99.0 [facility] Comment on above: Performed By: #### P OCGLUC #### [facility] [address] [place] [address] Dr. Nancy Montalvo MONO # 0.4 103/ul Normal 0.3-0.8 [facility] Comment on above: Performed By: #### P OCGLUC #### [facility] [address] [place] [address] Dr. Nancy Montalvo Monocytes/100 WBC (Bld) 3.7 % Normal 1.7-12.0 [facility] Comment on above: Performed By: #### P OCGLUC #### [facility] [address] [place] [address] Dr. Nancy Montalvo NEUT # 10.1 103/ul Critically high 1.4-6.5 [facility] Comment on above: Performed By: #### P OCGLUC #### [facility] [address] [place] [address] Dr. Nancy Monatlvo Neutrophils/100 WBC (Bld) 85.8 % Critically high 43.0-75.0 [facility] Comment on above: Performed By: #### P OCGLUC #### [facility] [address] [place] [address] Dr. Nancy Montalvo Platelet mean volume (Bld) [Entitic vol] 12.3 fL Normal 9.5-13.5 [facility] Comment on above: Performed By: #### P OCGLUC #### [facility] [address] [address] [address] Nancy Montalvo PLT 119 103/ul Critically low 150-450 [facility] Comment on above: Performed By: #### P OCGLUC #### [facility] [address] [address] [address] Nancy Montalvo RBC 3.04 106/ul Critically low 4.20-5.40 [facility] Comment on above: Performed By: #### P OCGLUC #### [facility] [address] [address] [address] Nancy Montalov WBC 11.7 103/ul Critically high 4.0-11.0 [facility] Comment on above: Performed By: #### P OCGLUC #### [facility] [address] [place] [address] Dr. Nancy Montalvo POINT OF CARE GLUCOSEon 06-18 Glucose [Mass/Vol] 143 mg/dL Critically high 74-106 [facility] Comment on above: Performed By: #### U AMIC #### [facility] [address] [address] [address] Nancy Montalvo PROF 14(COMP METB)on 023 Albumin [Mass/Vol] 1.6 g/dL Critically low 3.4-5.0 [facility] Comment on above: Performed By: #### C VDTBH #### [facility] [address] [address] [address] Nancy Montalvo Albumin/Globulin [Mass ratio] 0.5 {ratio} Normal [facility] Comment on above: Performed By: #### C VDTBH #### [facility] [address] [address] [address] Nancy Montalvo ALP [Catalytic activity/Vol] 102 U/L Normal 46-116 [facility] Comment on above: Performed By: #### C VDTBH #### [facility] [address] [address] [address] Nancy Montalvo ALT [Catalytic activity/Vol] 79 U/L Critically high 14-59 [facility] Comment on above: Performed By: #### C VDTBH #### [facility] [address] [address] [address] Nancy Montalvo Anion gap [Moles/Vol] 13.1 mmol/L Normal [facility] Comment on above: Performed By: #### C VDTBH #### [facility] [address] [address] [address] Nancy Montalvo AST [Catalytic activity/Vol] 31 U/L Normal 15-37 [facility] Comment on above: Performed By: #### C VDTBH #### [facility] [address] [address] [address] Nancy Montalvo Bilirubin [Mass/Vol] 0.4 mg/dL Normal 0.2-1.0 [facility] Comment on above: Performed By: #### C VDTBH #### [facility] [address] [address] [address] Nancy Montalvo Calcium [Mass/Vol] 8.1 mg/dL Critically low 8.5-10.1 [facility] Comment on above: Performed By: #### C VDTBH #### [facility] [address] [address] [address] Nancy Montalvo Chloride [Moles/Vol] 108 mmol/L Critically high 98-107 [facility] Comment on above: Performed By: #### C VDTBH #### [facility] [address] [address] [address] Nancy Montalvo CO2 [Moles/Vol] 23.4 mmol/L Normal 21.0-32.0 [facility] Comment on above: Performed By: #### C VDTBH #### [facility] [address] [address] [address] Nancy Montalvo Creatinine [Mass/Vol] 2.33 mg/dL Critically high 0.55-1.02 [facility] Comment on above: Performed By: #### C VDTBH #### [facility] [address] [address] [address] Nancy Montalvo EGFR-AF MALDIVIAN 24 mL/min/1.73m2 Critically low >=60 [facility] Comment on above: Performed By: #### C VDTBH #### [facility] [address] [address] [address] Nancy Montalvo EGFR-NON AF MALDIVIAN 20 mL/min/1.73m2 Critically low >=60 [facility] Comment on above: Performed By: #### C VDTBH #### [facility] [address] [address] [address] Nancy Montalvo Globulin (S) [Mass/Vol] 3.3 g/dL Normal [facility] Comment on above: Performed By: #### C VDTBH #### [facility] [address] [address] [address] Nancy Montalvo Glucose [Mass/Vol] 107 mg/dL Critically high 74-106 [facility] Comment on above: Performed By: #### C VDTBH #### [facility] [address] [address] [address] Nancy Montalvo Potassium [Moles/Vol] 3.5 mmol/L Normal 3.5-5.1 [facility] Comment on above: Performed By: #### C VDTBH #### [facility] [address] [address] [address] Nancy Montalvo Protein [Mass/Vol] 4.9 g/dL Critically low 6.4-8.2 [facility] Comment on above: Performed By: #### C VDTBH #### [facility] [address] [address] [address] Nancy Montalvo Sodium [Moles/Vol] 141 mmol/L Normal 136-145 [facility] Comment on above: Performed By: #### C VDTBH #### [facility] [address] [address] [address] Nancy Montalvo Urea nitrogen [Mass/Vol] 39.0 mg/dL Critically high 7.0-18.0 [facility] Comment on above: Performed By: #### C VDTBH #### [facility] [address] [address] [address] Nancy Montalvo Urea nitrogen/Creatinine [Mass ratio] 16.7 mg/mg Normal [facility] Comment on above: Performed By: #### C VDTBH #### [facility] [address] [place] [address] Dr. Nancy Montalvo PROTIMEon 07-13-2022 INR Coag (PPP) [Relative time] 1.99 {INR} Normal [facility] Comment on above: Performed By: #### P OCGLUC #### [facility] [address] [place] [address] Dr. Nancy Montalvo INR GUIDELINES SEE BELOW Normal [facility] Comment on above: Result Comment: ADITYA RED INR: 2.0 - 3.0 CONDITIONS NOT LISTED BELOW 2.5 - 3.5 FOR PROSTHETIC HEART VALVE REPLACEMENT 2.5 - 3.5 RECURRENT THROMBOSIS Performed By: #### P OCGLUC #### [facility] [address] [place] [address] Dr. Nancy Montalvo PT Coag (PPP) [Time] 20.3 s Critically high 9.0-11.6 [facility] Comment on above: Performed By: #### P OCGLUC #### [facility] [address] [place] [address] Dr. Nancy Montalvo XR HIP LT 1V WO PELVISon XR HIP LT 1V WO PELVIS EXAM: XR HIP LT 1V WO PELVIS, XR TIB_FIB LT 2V HISTORY: Asthenia COMPARISON: Pelvis and left hip radiographs dated 09/13/2021. TECHNIQUE: One view of the left hip was obtained. 2 views of the left tibia and fibula were obtained. FINDINGS: Left hip: No acute fracture or dislocation is seen. The left femoral head is well-seated in the acetabulum. There are [id number] degenerative changes of the left hip. There are [id number] degenerative changes of the left sacroiliac joint and pubic symphysis. Surgical clips overlie the left pubic bone. Left tibia and fibula: No acute fracture or dislocation is seen. There is no significant left ankle joint effusion. Atherosclerotic calcifications are noted. IMPRESSION: 1. No acute fracture or dislocation of the left hip is seen on this single view. If there is concern for an occult injury, cross-sectional imaging is recommended. 2. No acute fracture or dislocation of the left tibia or fibula is seen. If pain persists, repeat radiographs are recommended in 7-10 days. Electronically authenticated by: Ban ESCOBEDO Date: 2022-07-12 22:49 Normal [facility] CBC AUTO DIFFon 07-12-2022 BASO # 0.0 103/ul Normal 0.0-0.1 [facility] Comment on above: Performed By: #### U AMIC #### [facility] [address] [address] [address] Nancy Montalvo Basophils/100 WBC (Bld) 0.2 % Normal 0.2-2.0 [facility] Comment on above: Performed By: #### U AMIC #### [facility] [address] [place] [address] Dr. Nancy Montalvo EO # 0.1 103/ul Normal 0.0-0.7 [facility] Comment on above: Performed By: #### U AMIC #### [facility] [address] [address] [address] Nancy Montalvo Eosinophils/100 WBC (Bld) 0.8 % Critically low 0.9-7.0 [facility] Comment on above: Performed By: #### U AMIC #### [facility] [address] [place] [address] Dr. Nancy Montalvo Erythrocyte distribution width (RBC) [Ratio] 13.2 % Normal 11.0-15.0 [facility] Comment on above: Performed By: #### U AMIC #### [facility] [address] [place] [address] Dr. Nancy Montalvo Hematocrit (Bld) [Volume fraction] 30.7 % Critically low 36.0-48.0 [facility] Comment on above: Performed By: #### U AMIC #### [facility] [address] [place] [address] Dr. Nancy Montalvo Hemoglobin (Bld) [Mass/Vol] 10.0 g/dL Critically low 12.0-16.0 [facility] Comment on above: Performed By: #### U AMIC #### [facility] [address] [address] [address] Nancy Montalvo IG # 0.20 10e3/ul Critically high 0.00-0.03 [facility] Comment on above: Performed By: #### U AMIC #### [facility] [address] [place] [address] Dr. Nancy Montalvo IG % 1.5 % Critically high 0.0-0.5 [facility] Comment on above: Performed By: #### U AMIC #### [facility] [address] [address] [address] Nancy Montalvo LYMPH # 1.2 103/ul Normal 1.2-3.8 [facility] Comment on above: Performed By: #### U AMIC #### [facility] [address] [place] [address] Dr. Nancy Montalvo Lymphocytes/100 WBC (Bld) 8.9 % Critically low 20.5-60.0 [facility] Comment on above: Performed By: #### U AMIC #### [facility] [address] [place] [address] Dr. Nancy Montalvo MANUAL DIFF REQ NO Normal [facility] Comment on above: Performed By: #### U AMIC #### [facility] [address] [place] [address] Dr. Nancy Montalvo MCH (RBC) [Entitic mass] 31.6 pg Normal 26.7-34.0 [facility] Comment on above: Performed By: #### U AMIC #### [facility] [address] [address] [address] Nancy Montalvo MCHC (RBC) [Mass/Vol] 32.6 g/dL Normal 29.9-35.2 [facility] Comment on above: Performed By: #### U AMIC #### [facility] [address] [place] [address] Dr. Nancy Montalvo MCV (RBC) [Entitic vol] 97.2 fL Normal 81.0-99.0 [facility] Comment on above: Performed By: #### U AMIC #### [facility] [address] [place] [address] Dr. Nancy Montalvo MONO # 0.5 103/ul Normal 0.3-0.8 [facility] Comment on above: Performed By: #### U AMIC #### [facility] [address] [address] [address] Nancy Montalvo Monocytes/100 WBC (Bld) 3.6 % Normal 1.7-12.0 [facility] Comment on above: Performed By: #### U AMIC #### [facility] [address] [address] [address] Nancy Montalvo NEUT # 11.1 103/ul Critically high 1.4-6.5 [facility] Comment on above: Performed By: #### U AMIC #### [facility] [address] [place] [address] Dr. Nancy Montalvo Neutrophils/100 WBC (Bld) 85.0 % Critically high 43.0-75.0 [facility] Comment on above: Performed By: #### U AMIC #### [facility] [address] [place] [address] Dr. Nancy Montalvo Platelet mean volume (Bld) [Entitic vol] 13.1 fL Normal 9.5-13.5 [facility] Comment on above: Performed By: #### U AMIC #### [facility] [address] [place] [address] Dr. Nancy Montalvo PLT 107 103/ul Critically low 150-450 [facility] Comment on above: Performed By: #### U AMIC #### [facility] [address] [place] [address] Dr. Nancy Montalvo RBC 3.16 106/ul Critically low 4.20-5.40 [facility] Comment on above: Performed By: #### U AMIC #### [facility] [address] [place] [address] Dr. Nancy Montalvo WBC 13.0 103/ul Critically high 4.0-11.0 [facility] Comment on above: Performed By: #### U AMIC #### [facility] [address] [place] [address] Dr. Nancy Montalvo CULTURE URINEon 07-12-2022 CULTURE URINE Isolate 1 Escherichia coli >100,000 cfu/mL of ORGANISM 1 Escherichia coli ANTIBIOTIC M.I.C RX STATUS Ampicillin >=32 R F Ampicillin/Sulbactam 16 I F Piperacillin/Tazobactam <=4 S F Cefazolin <=4 S F Ceftazidime <=1 S F Ceftriaxone <=1 S F Ertapenem <=0.5 S F Imipenem <=0.25 S F Amikacin <=2 S F Gentamicin <=1 S F Tobramycin <=1 S F Ciprofloxacin >=4 R F Levofloxacin >=8 R F Nitrofurantoin <=16 S F Trimethoprim/Sulfamethoxazo le <=20 S F Normal [facility] Comment on above: Performed By: #### U RCX #### [facility] [address] [place] [address] Dr. Nancy Montalvo PROF 14(COMP METB)on 023 Albumin [Mass/Vol] 1.7 g/dL Critically low 3.4-5.0 [facility] Comment on above: Performed By: #### C MP #### [facility] [address] [place] [address] Dr. Nancy Montalvo Albumin/Globulin [Mass ratio] 0.5 {ratio} Normal [facility] Comment on above: Performed By: #### C MP #### [facility] [address] [place] [address] Dr. Nancy Montalvo ALP [Catalytic activity/Vol] 102 U/L Normal 46-116 [facility] Comment on above: Performed By: #### C MP #### [facility] [address] [place] [address] Dr. Nancy Montalvo ALT [Catalytic activity/Vol] 95 U/L Critically high 14-59 [facility] Comment on above: Performed By: #### C MP #### [facility] [address] [place] [address] Dr. Nancy Montalvo Anion gap [Moles/Vol] 14.1 mmol/L Normal [facility] Comment on above: Performed By: #### C MP #### [facility] [address] [address] [address] Nancy Mnotalvo AST [Catalytic activity/Vol] 15 U/L Normal 15-37 [facility] Comment on above: Performed By: #### C MP #### [facility] [address] [address] [address] Nancy Montalvo Bilirubin [Mass/Vol] 0.5 mg/dL Normal 0.2-1.0 [facility] Comment on above: Performed By: #### C MP #### [facility] [address] [address] [address] Nancy Montalvo Calcium [Mass/Vol] 8.2 mg/dL Critically low 8.5-10.1 [facility] Comment on above: Performed By: #### C MP #### [facility] [address] [address] [address] Nancy Montalvo Chloride [Moles/Vol] 103 mmol/L Normal 98-107 [facility] Comment on above: Performed By: #### C MP #### [facility] [address] [address] [address] Nancy Montalvo CO2 [Moles/Vol] 23.4 mmol/L Normal 21.0-32.0 [facility] Comment on above: Performed By: #### C MP #### [facility] [address] [address] [address] Nancy Montalvo Creatinine [Mass/Vol] 2.68 mg/dL Critically high 0.55-1.02 [facility] Comment on above: Performed By: #### C MP #### [facility] [address] [address] [address] Nancy Montalvo EGFR-AF MALDIVIAN 20 mL/min/1.73m2 Critically low >=60 [facility] Comment on above: Performed By: #### C MP #### [facility] [address] [address] [address] Nancy Montalvo EGFR-NON AF MALDIVIAN 17 mL/min/1.73m2 Critically low >=60 [facility] Comment on above: Performed By: #### C MP #### [facility] [address] [address] [address] Nancy Montalvo Globulin (S) [Mass/Vol] 3.1 g/dL Normal [facility] Comment on above: Performed By: #### C MP #### [facility] [address] [address] [address] Nancy Montalvo Glucose [Mass/Vol] 118 mg/dL Critically high 74-106 [facility] Comment on above: Performed By: #### C MP #### [facility] [address] [address] [address] Nancy Montalvo Potassium [Moles/Vol] 3.5 mmol/L Normal 3.5-5.1 [facility] Comment on above: Performed By: #### C MP #### [facility] [address] [place] [address] Dr. Nancy Montalvo Protein [Mass/Vol] 4.8 g/dL Critically low 6.4-8.2 [facility] Comment on above: Performed By: #### C MP #### [facility] [address] [place] [address] Dr. Nancy Montalvo Sodium [Moles/Vol] 137 mmol/L Normal 136-145 [facility] Comment on above: Performed By: #### C MP #### [facility] [address] [place] [address] Dr. Nancy Montalvo Urea nitrogen [Mass/Vol] 43.0 mg/dL Critically high 7.0-18.0 [facility] Comment on above: Performed By: #### C MP #### [facility] [address] [place] [address] Dr. Nancy Montalvo Urea nitrogen/Creatinine [Mass ratio] 16.0 mg/mg Normal [facility] Comment on above: Performed By: #### C MP #### [facility] [address] [place] [address] Dr. Nancy Montalvo PROTIMEon 07-12-2022 INR Coag (PPP) [Relative time] 2.27 {INR} Normal [facility] Comment on above: Performed By: #### P OCGLUC #### [facility] [address] [place] [address] Dr. Nancy Montalvo INR GUIDELINES SEE BELOW Normal [facility] Comment on above: Result Comment: ADITYA RED INR: 2.0 - 3.0 CONDITIONS NOT LISTED BELOW 2.5 - 3.5 FOR PROSTHETIC HEART VALVE REPLACEMENT 2.5 - 3.5 RECURRENT THROMBOSIS Performed By: #### P OCGLUC #### [facility] [address] [place] [address] Dr. Nancy Montalvo PT Coag (PPP) [Time] 23.0 s Critically high 9.0-11.6 [facility] Comment on above: Performed By: #### P OCGLUC #### [facility] [address] [place] [address] Dr. Nancy Montalvo CBC AUTO DIFFon 07-11-2022 BASO # 0.1 103/ul Normal 0.0-0.1 [facility] Comment on above: Performed By: #### P OCGLUC #### [facility] [address] [place] [address] Dr. Nancy Montalvo Basophils/100 WBC (Bld) 0.3 % Normal 0.2-2.0 [facility] Comment on above: Performed By: #### P OCGLUC #### [facility] [address] [place] [address] Dr. Nancy Montalvo EO # 0.1 103/ul Normal 0.0-0.7 [facility] Comment on above: Performed By: #### P OCGLUC #### [facility] [address] [place] [address] Dr. Nancy Montalvo Eosinophils/100 WBC (Bld) 0.3 % Critically low 0.9-7.0 [facility] Comment on above: Performed By: #### P OCGLUC #### [facility] [address] [place] [address] Dr. Nancy Montalvo Erythrocyte distribution width (RBC) [Ratio] 13.3 % Normal 11.0-15.0 [facility] Comment on above: Performed By: #### P OCGLUC #### [facility] [address] [place] [address] Dr. Nancy Montalvo Hematocrit (Bld) [Volume fraction] 37.5 % Normal 36.0-48.0 [facility] Comment on above: Performed By: #### P OCGLUC #### [facility] [address] [place] [address] Dr. Nancy Montalvo Hemoglobin (Bld) [Mass/Vol] 11.5 g/dL Critically low 12.0-16.0 [facility] Comment on above: Performed By: #### P OCGLUC #### [facility] [address] [address] [address] Nancy Montalvo IG # 0.29 10e3/ul Critically high 0.00-0.03 [facility] Comment on above: Performed By: #### P OCGLUC #### [facility] [address] [place] [address] Dr. Nancy Montalvo IG % 1.8 % Critically high 0.0-0.5 [facility] Comment on above: Performed By: #### P OCGLUC #### [facility] [address] [place] [address] Dr. Nancy Montalvo LYMPH # 2.2 103/ul Normal 1.2-3.8 [facility] Comment on above: Performed By: #### P OCGLUC #### [facility] [address] [place] [address] Dr. Nancy Montalvo Lymphocytes/100 WBC (Bld) 13.2 % Critically low 20.5-60.0 [facility] Comment on above: Performed By: #### P OCGLUC #### [facility] [address] [place] [address] Dr. Nancy Montalvo MANUAL DIFF REQ NO Normal [facility] Comment on above: Performed By: #### P OCGLUC #### [facility] [address] [place] [address] Dr. Nancy Montalvo MCH (RBC) [Entitic mass] 31.3 pg Normal 26.7-34.0 [facility] Comment on above: Performed By: #### P OCGLUC #### [facility] [address] [place] [address] Dr. Nancy Montalvo MCHC (RBC) [Mass/Vol] 30.7 g/dL Normal 29.9-35.2 [facility] Comment on above: Performed By: #### P OCGLUC #### [facility] [address] [place] [address] Dr. Nancy Montalvo MCV (RBC) [Entitic vol] 101.9 fL Critically high 81.0-99.0 [facility] Comment on above: Performed By: #### P OCGLUC #### [facility] [address] [place] [address] Dr. Nancy Montalvo MONO # 0.4 103/ul Normal 0.3-0.8 [facility] Comment on above: Performed By: #### P OCGLUC #### [facility] [address] [place] [address] Dr. Nancy Montalvo Monocytes/100 WBC (Bld) 2.7 % Normal 1.7-12.0 [facility] Comment on above: Performed By: #### P OCGLUC #### [facility] [address] [place] [address] Dr. Nancy Montalvo NEUT # 13.5 103/ul Critically high 1.4-6.5 [facility] Comment on above: Performed By: #### P OCGLUC #### [facility] [address] [place] [address] Dr. Nancy Montalvo Neutrophils/100 WBC (Bld) 81.7 % Critically high 43.0-75.0 [facility] Comment on above: Performed By: #### P OCGLUC #### [facility] [address] [place] [address] Dr. Nancy Montalvo Platelet mean volume (Bld) [Entitic vol] 13.3 fL Normal 9.5-13.5 [facility] Comment on above: Performed By: #### P OCGLUC #### [facility] [address] [place] [address] Dr. Nancy Montalvo PLT 104 103/ul Critically low 150-450 [facility] Comment on above: Performed By: #### P OCGLUC #### [facility] [address] [place] [address] Dr. Nancy Montalvo RBC 3.68 106/ul Critically low 4.20-5.40 [facility] Comment on above: Performed By: #### P OCGLUC #### [facility] [address] [place] [address] Dr. Nancy Montalvo WBC 16.5 103/ul Critically high 4.0-11.0 [facility] Comment on above: Performed By: #### P OCGLUC #### [facility] [address] [place] [address] Dr. Nancy Montalvo PROF 14(COMP METB)on 023 Albumin [Mass/Vol] 1.9 g/dL Critically low 3.4-5.0 [facility] Comment on above: Performed By: #### P OCGLUC #### [facility] [address] [place] [address] Dr. Nancy Montalvo Albumin/Globulin [Mass ratio] 0.5 {ratio} Normal [facility] Comment on above: Performed By: #### P OCGLUC #### [facility] [address] [place] [address] Dr. Nancy Montalvo ALP [Catalytic activity/Vol] 136 U/L Critically high 46-116 [facility] Comment on above: Performed By: #### P OCGLUC #### [facility] [address] [place] [address] Dr. Nancy Montalvo ALT [Catalytic activity/Vol] 144 U/L Critically high 14-59 [facility] Comment on above: Performed By: #### P OCGLUC #### [facility] [address] [place] [address] Dr. Nancy Montalvo Anion gap [Moles/Vol] 14.4 mmol/L Normal [facility] Comment on above: Performed By: #### P OCGLUC #### [facility] [address] [place] [address] Dr. Nancy Montalvo AST [Catalytic activity/Vol] 37 U/L Normal 15-37 [facility] Comment on above: Performed By: #### P OCGLUC #### [facility] [address] [place] [address] Dr. Nancy Montalvo Bilirubin [Mass/Vol] 0.5 mg/dL Normal 0.2-1.0 [facility] Comment on above: Performed By: #### P OCGLUC #### [facility] [address] [address] [address] Nancy Montalvo Calcium [Mass/Vol] 8.4 mg/dL Critically low 8.5-10.1 Th e [facility] Comment on above: Performed By: #### P OCGLUC #### [facility] [address] [address] [address] Nancy Montalvo Chloride [Moles/Vol] 103 mmol/L Normal 98-107 [facility] Comment on above: Performed By: #### P OCGLUC #### [facility] [address] [place] [address] Dr. Nancy Montalvo CO2 [Moles/Vol] 22.5 mmol/L Normal 21.0-32.0 [facility] Comment on above: Performed By: #### P OCGLUC #### [facility] [address] [address] [address] Nancy Montalvo Creatinine [Mass/Vol] 2.66 mg/dL Critically high 0.55-1.02 [facility] Comment on above: Performed By: #### P OCGLUC #### [facility] [address] [place] [address] Dr. Nancy Montalvo EGFR-AF MALDIVIAN 21 mL/min/1.73m2 Critically low >=60 [facility] Comment on above: Performed By: #### P OCGLUC #### [facility] [address] [address] [address] Nancy Montalvo EGFR-NON AF MALDIVIAN 17 mL/min/1.73m2 Critically low >=60 [facility] Comment on above: Performed By: #### P OCGLUC #### [facility] [address] [place] [address] Dr. Nancy Montalvo Globulin (S) [Mass/Vol] 3.7 g/dL Normal [facility] Comment on above: Performed By: #### P OCGLUC #### [facility] [address] [place] [address] Dr. Nancy Montalvo Glucose [Mass/Vol] 83 mg/dL Normal 74-106 [facility] Comment on above: Performed By: #### P OCGLUC #### [facility] [address] [address] [address] Nancy Montalvo Potassium [Moles/Vol] 3.9 mmol/L Normal 3.5-5.1 [facility] Comment on above: Performed By: #### P OCGLUC #### [facility] [address] [address] [address] Nancy Montalvo Protein [Mass/Vol] 5.6 g/dL Critically low 6.4-8.2 Th e [facility] Comment on above: Performed By: #### P OCGLUC #### [facility] [address] [address] [address] Nancy Montalvo Sodium [Moles/Vol] 136 mmol/L Normal 136-145 [facility] Comment on above: Performed By: #### P OCGLUC #### [facility] [address] [address] [address] Nancy Montalvo Urea nitrogen [Mass/Vol] 40.0 mg/dL Critically high 7.0-18.0 [facility] Comment on above: Performed By: #### P OCGLUC #### [facility] [address] [place] [address] Dr. Nancy Montalvo Urea nitrogen/Creatinine [Mass ratio] 15.0 mg/mg Normal [facility] Comment on above: Performed By: #### P OCGLUC #### [facility] [address] [address] [address] Nancy Montalvo PROTIMEon 07-11-2022 INR Coag (PPP) [Relative time] 3.29 {INR} Normal [facility] Comment on above: Performed By: #### P OCGLUC #### [facility] [address] [place] [address] Dr. Nancy Montalvo INR GUIDELINES SEE BELOW Normal [facility] Comment on above: Result Comment: ADITYA RED INR: 2.0 - 3.0 CONDITIONS NOT LISTED BELOW 2.5 - 3.5 FOR PROSTHETIC HEART VALVE REPLACEMENT 2.5 - 3.5 RECURRENT THROMBOSIS Performed By: #### P OCGLUC #### [facility] [address] [place] [address] Dr. Nancy Montalvo PT Coag (PPP) [Time] 32.6 s Critically high 9.0-11.6 [facility] Comment on above: Performed By: #### P OCGLUC #### [facility] [address] [place] [address] Dr. Nancy Montalvo PTTon 07-11-2022 aPTT Coag (Bld) [Time] 68.0 s Critically high 22.3-36.2 [facility] Comment on above: Performed By: #### P OCGLUC #### [facility] [address] [place] [address] Dr. Nancy Montalvo CARDIAC DENILSON 3-6on 3 CK [Catalytic activity/Vol] 51 U/L Normal 26-192 [facility] Comment on above: Performed By: #### P OCGLUC #### [facility] [address] [place] [address] Dr. Nancy Montalvo CK.MB [Mass/Vol] 1.01 ng/mL Normal <=3.60 [facility] Comment on above: Performed By: #### P OCGLUC #### [facility] [address] [place] [address] Dr. Nancy Montalvo HSTROP 45.8 pg/mL Normal 4.0-51.3 [facility] Comment on above: Result Comment: CUT- OFF POINTS HAVE BEEN ESTABLISHED BASED ON THE FOURTH UNIVERSAL DEFINITIONS OF MYOCARDIAL INFARCTION. THE UPPER REFERENCE LIMIT (URL) OF TROPONIN, DEFINED THE 99TH PERCENTILE OF cTnI DISTRIBUTION IN A REFERENCE POPULATION, HAS BEEN CONFIRMED THE DECISION THRESHOLD FOR ND DIAGNOSIS. Performed By: #### P OCGLUC #### [facility] [address] [place] [address] Dr. Nancy Montalvo CK [Catalytic activity/Vol] 54 U/L Normal 26-192 [facility] Comment on above: Performed By: #### P OCGLUC #### [facility] [address] [place] [address] Dr. Nancy Montalvo CK.MB [Mass/Vol] 0.89 ng/mL Normal <=3.60 [facility] Comment on above: Performed By: #### P OCGLUC #### [facility] [address] [place] [address] Dr. Nancy Montalvo HSTROP 58.5 pg/mL Critically high 4.0-51.3 [facility] Comment on above: Result Comment: CUT- OFF POINTS HAVE BEEN ESTABLISHED BASED ON THE FOURTH UNIVERSAL DEFINITIONS OF MYOCARDIAL INFARCTION. THE UPPER REFERENCE LIMIT (URL) OF TROPONIN, DEFINED THE 99TH PERCENTILE OF cTnI DISTRIBUTION IN A REFERENCE POPULATION, HAS BEEN CONFIRMED THE DECISION THRESHOLD FOR ND DIAGNOSIS. Performed By: #### P OCGLUC #### [facility] [address] [place] [address] Dr. Nancy Montalvo CBC AUTO DIFFon 07-10-2022 BASO # 0.1 103/ul Normal 0.0-0.1 [facility] Comment on above: Performed By: #### P OCGLUC #### [facility] [address] [place] [address] Dr. Nancy Montalvo Basophils/100 WBC (Bld) 0.2 % Normal 0.2-2.0 [facility] Comment on above: Performed By: #### P OCGLUC #### [facility] [address] [place] [address] Dr. Nancy Montalvo EO # 0.0 103/ul Normal 0.0-0.7 [facility] Comment on above: Performed By: #### P OCGLUC #### [facility] [address] [place] [address] Dr. Nancy Montalvo Eosinophils/100 WBC (Bld) 0.0 % Critically low 0.9-7.0 [facility] Comment on above: Performed By: #### P OCGLUC #### [facility] [address] [place] [address] Dr. Nancy Montalvo Erythrocyte distribution width (RBC) [Ratio] 13.0 % Normal 11.0-15.0 [facility] Comment on above: Performed By: #### P OCGLUC #### [facility] [address] [place] [address] Dr. Nancy Montalvo Hematocrit (Bld) [Volume fraction] 37.6 % Normal 36.0-48.0 [facility] Comment on above: Performed By: #### P OCGLUC #### [facility] [address] [place] [address] Dr. Nancy Montalvo Hemoglobin (Bld) [Mass/Vol] 12.5 g/dL Normal 12.0-16.0 [facility] Comment on above: Performed By: #### P OCGLUC #### [facility] [address] [address] [address] Nancy Montalvo IG # 0.23 10e3/ul Critically high 0.00-0.03 [facility] Comment on above: Performed By: #### P OCGLUC #### [facility] [address] [place] [address] Dr. Nancy Montalvo IG % 1.1 % Critically high 0.0-0.5 [facility] Comment on above: Performed By: #### P OCGLUC #### [facility] [address] [place] [address] Dr. Nancy Montalvo LYMPH # 1.5 103/ul Normal 1.2-3.8 [facility] Comment on above: Performed By: #### P OCGLUC #### [facility] [address] [place] [address] Dr. Nancy Montalvo Lymphocytes/100 WBC (Bld) 7.4 % Critically low 20.5-60.0 [facility] Comment on above: Performed By: #### P OCGLUC #### [facility] [address] [place] [address] Dr. Nancy Montalvo MANUAL DIFF REQ NO Normal [facility] Comment on above: Performed By: #### P OCGLUC #### [facility] [address] [address] [address] Nancy Montalvo MCH (RBC) [Entitic mass] 32.0 pg Normal 26.7-34.0 [facility] Comment on above: Performed By: #### P OCGLUC #### [facility] [address] [place] [address] Dr. Nancy Montalvo MCHC (RBC) [Mass/Vol] 33.2 g/dL Normal 29.9-35.2 [facility] Comment on above: Performed By: #### P OCGLUC #### [facility] [address] [place] [address] Dr. Nancy Montalvo MCV (RBC) [Entitic vol] 96.2 fL Normal 81.0-99.0 [facility] Comment on above: Performed By: #### P OCGLUC #### [facility] [address] [place] [address] Dr. Nancy Montalvo MONO # 0.4 103/ul Normal 0.3-0.8 [facility] Comment on above: Performed By: #### P OCGLUC #### [facility] [address] [place] [address] Dr. Nancy Montalvo Monocytes/100 WBC (Bld) 2.1 % Normal 1.7-12.0 [facility] Comment on above: Performed By: #### P OCGLUC #### [facility] [address] [place] [address] Dr. Nancy Montalvo NEUT # 18.3 103/ul Critically high 1.4-6.5 [facility] Comment on above: Performed By: #### P OCGLUC #### [facility] [address] [place] [address] Dr. Nancy Montalvo Neutrophils/100 WBC (Bld) 89.2 % Critically high 43.0-75.0 [facility] Comment on above: Performed By: #### P OCGLUC #### [facility] [address] [place] [address] Dr. Nancy Montalvo Platelet mean volume (Bld) [Entitic vol] 12.9 fL Normal 9.5-13.5 [facility] Comment on above: Performed By: #### P OCGLUC #### [facility] [address] [place] [address] Dr. Nancy Montalvo PLT 120 103/ul Critically low 150-450 [facility] Comment on above: Performed By: #### P OCGLUC #### [facility] [address] [place] [address] Dr. Nancy Montalvo RBC 3.91 106/ul Critically low 4.20-5.40 [facility] Comment on above: Performed By: #### P OCGLUC #### [facility] [address] [place] [address] Dr. Nancy Montalvo WBC 20.5 103/ul Critically high 4.0-11.0 [facility] Comment on above: Performed By: #### P OCGLUC #### [facility] [address] [place] [address] HEAD WO CONon 07-10-2022 CT HEAD WO CON EXAMINATION: CT HEAD WO CON HISTORY: Asthenia , weakness, recent fall COMPARISON: CT head 11/20/2019 TECHNIQUE: Axial CT images were obtained without IV contrast. Dose reduction techniques were achieved by using automated exposure control and/or adjustment of mA and/or kV according to patient size and/or use of iterative reconstruction technique. FINDINGS: BRAIN: No edema, hemorrhage, mass, acute infarction, or inappropriate atrophy. Stable tiny calcification within left basal ganglia. CSF SPACES: No hydrocephalus, subarachnoid hemorrhage, or mass. Appropriate for age. SKULL: No fracture, mass, or other significant visible lesion. SINUSES: No significant mucosal thickening or fluid on the limited views. ORBITS: No appreciable abnormality on the limited views. OTHER: Negative IMPRESSION: 1. No hemorrhage, mass, or suspicious findings. 2. Mild age consistent atrophy and chronic small vessel ischemic changes. 3. Clear sinuses. Electronically authenticated by: HANNA BAILON Date: 2022-07-10 14:10 Normal [facility] CULTURE BLOODon 07-10-2022 Microscopic examination of blood, culture Culture Observations: NO GROWTH AT 5 DAYS. Normal [facility] Comment on above: Performed By: #### A 1C #### [facility] [address] [place] [address] Dr. Nancy Montalvo Microscopic examination of blood, culture Culture Observations: NO GROWTH AT 5 DAYS. Normal [facility] Comment on above: Performed By: #### B [id number] #### [facility] [address] [place] [id number] Nancy Montalvo [facility] SARS-CoV-2 (COVID-19) RNA MARLENE+probe Ql (Unsp spec) Not detected Normal NOT DETECTED [facility] Comment on above: Result Comment: This test is not yet approved or cleared by the [place] FDA. When there are no FDA-approved or cleared tests available, and other criteria are met, FDA can make tests available under an emergency access mechanism called an Emergency Use Authorization (EUA). The EUA for this test is supported by the [place] of Health and Human Service's (HHS's) declaration that circumstances exist to justify the emergency use of in vitro diagnostics for the detection and/or diagnosis of the virus that causes COVID-19. This EUA will remain in effect (meaning this test can be used) for the duration of the COVID-19 declaration justifying emergency of IVDs, unless it is terminated or revoked by FDA (after which the test may no longer be used). When diagnostic testing is negative, the possibility of a false negative should be considered in the context of a patient's recent exposures and the presence of clinical signs and symptoms consistent with SARS-CoV-2. Performed By: #### C VDTBH #### [facility] [address] [place] [address] Dr. Nancy Montalvo ER URINE PROFILEon 3 Bilirubin Ql (U) Negative Normal NEGATIVE [facility] Comment on above: Performed By: #### P OCGLUC #### [facility] [address] [place] [address] Dr. Nancy Montalvo Clarity (U) CLEAR Normal CLEAR [facility] Comment on above: Performed By: #### P OCGLUC #### [facility] [address] [place] [address] Dr. Nancy Montalvo Color (U) YELLOW Normal YELLOW [facility] Comment on above: Performed By: #### P OCGLUC #### [facility] [address] [place] [address] Dr. Nancy Montalvo ERUADELINAD A micrscopic examina tion will be performed if indicated. Normal [facility] Comment on above: Performed By: #### P OCGLUC #### [facility] [address] [place] [address] Dr. Nancy Montalvo Glucose Ql (U) >1000 Abnormal NEGATIVE [facility] Comment on above: Performed By: #### P OCGLUC #### [facility] [address] [address] [address] Nancy Montalvo Hemoglobin Ql (U) SMALL Abnormal NEGATIVE [facility] Comment on above: Performed By: #### P OCGLUC #### [facility] [address] [place] [address] Dr. Nancy Montalvo Ketones Ql (U) Negative Normal NEGATIVE [facility] Comment on above: Performed By: #### P OCGLUC #### [facility] [address] [address] [address] Nancy Montalvo LEUKOCYTES Negative Normal NEGATIVE [facility] Comment on above: Performed By: #### P OCGLUC #### [facility] [address] [place] [address] Dr. Nancy Montalvo Nitrite Ql (U) Negative Normal NEGATIVE [facility] Comment on above: Performed By: #### P OCGLUC #### [facility] [address] [place] [address] Dr. Nancy Montalvo pH (U) 5.5 [pH] Normal 5-9 [facility] Comment on above: Performed By: #### P OCGLUC #### [facility] [address] [place] [address] Dr. Nancy Montalvo Protein (U) [Mass/Vol] 30 mg/dL Abnormal NEGATIVE/ TRACE [facility] Comment on above: Performed By: #### P OCGLUC #### [facility] [address] [place] [address] Dr. Nancy Montalvo SPEC GRAVITY 1.015 Normal 1.005-<=1.0 25 [facility] Comment on above: Performed By: #### P OCGLUC #### [facility] [address] [place] [address] Dr. Nancy Montalvo UR MICRO IND INDICATED Normal [facility] Comment on above: Performed By: #### P OCGLUC #### [facility] [address] [place] [address] Dr. Nancy Montalvo Urobilinogen Qn (U) 0.2 {Grant'U}/dL Normal 0.2 - 1. 0 [facility] Comment on above: Performed By: #### P OCGLUC #### [facility] [address] [address] [address] Nancy Montalvo LACTATE/LACTIC ACIDon 2022 Lactate [Moles/Vol] 1.8 mmol/L Normal 0.4-2.0 [facility] Comment on above: Performed By: #### P OCGLUC #### [facility] [address] [address] [address] Nancy Montalvo Lactate [Moles/Vol] 1.7 mmol/L Normal 0.4-2.0 [facility] Comment on above: Performed By: #### P OCGLUC #### [facility] [address] [place] [address] Dr. Nancy Montalvo MYOGLOBINon 07-10-2022 OLMAN 123 ng/mL Critically high 9-82 [facility] Comment on above: Performed By: #### C MP #### [facility] [address] [place] [address] Dr. Nancy Montalvo POINT OF CARE GLUCOSEon 06-18 Glucose [Mass/Vol] 352 mg/dL Critically high 74-106 [facility] Comment on above: Performed By: #### B [id number] #### [facility] [address] [place] [address] Dr. Nancy Montalvo Glucose [Mass/Vol] 378 mg/dL Critically high 74-106 [facility] Comment on above: Performed By: #### P OCGLUC #### [facility] [address] [place] [address] Dr. Nancy Montalvo PROF CHEM 8 (BAS METB)on Anion gap [Moles/Vol] 12.1 mmol/L Normal [facility] Comment on above: Performed By: #### C MP #### [facility] [address] [place] [address] Dr. Nancy Montalvo Calcium [Mass/Vol] 8.3 mg/dL Critically low 8.5-10.1 [facility] Comment on above: Performed By: #### C MP #### [facility] [address] [address] [address] Nancy Montalvo Chloride [Moles/Vol] 101 mmol/L Normal 98-107 [facility] Comment on above: Performed By: #### C MP #### [facility] [address] [address] [address] Nancy Montalvo CO2 [Moles/Vol] 24.6 mmol/L Normal 21.0-32.0 [facility] Comment on above: Performed By: #### C MP #### [facility] [address] [address] [address] Nancy Montalvo Creatinine [Mass/Vol] 2.64 mg/dL Critically high 0.55-1.02 [facility] Comment on above: Performed By: #### C MP #### [facility] [address] [address] [address] Nancy Montalvo EGFR-AF MALDIVIAN 21 mL/min/1.73m2 Critically low >=60 [facility] Comment on above: Performed By: #### C MP #### [facility] [address] [address] [address] Nancy Montalvo EGFR-NON AF MALDIVIAN 17 mL/min/1.73m2 Critically low >=60 [facility] Comment on above: Performed By: #### C MP #### [facility] [address] [address] [address] Nancy Montalvo Glucose [Mass/Vol] 368 mg/dL Critically high 74-106 [facility] Comment on above: Performed By: #### C MP #### [facility] [address] [address] [address] Nancy Montalvo Potassium [Moles/Vol] 3.7 mmol/L Normal 3.5-5.1 [facility] Comment on above: Performed By: #### C MP #### [facility] [address] [address] [address] Nancy Montalvo Sodium [Moles/Vol] 134 mmol/L Critically low 136-145 Th [facility] Comment on above: Performed By: #### C MP #### [facility] [address] [place] [address] Dr. Nancy Montalvo Urea nitrogen [Mass/Vol] 33.0 mg/dL Critically high 7.0-18.0 [facility] Comment on above: Performed By: #### C MP #### [facility] [address] [place] [address] Dr. Nancy Montalvo Urea nitrogen/Creatinine [Mass ratio] 12.5 mg/mg Normal [facility] Comment on above: Performed By: #### C MP #### [facility] [address] [place] [address] Dr. Nancy Montalvo PROTIMEon 07-10-2022 INR Coag (PPP) [Relative time] 3.53 {INR} Normal [facility] Comment on above: Performed By: #### P OCGLUC #### [facility] [address] [place] [address] Dr. Nancy Montalvo INR GUIDELINES SEE BELOW Normal [facility] Comment on above: Result Comment: ADITYA RED INR: 2.0 - 3.0 CONDITIONS NOT LISTED BELOW 2.5 - 3.5 FOR PROSTHETIC HEART VALVE REPLACEMENT 2.5 - 3.5 RECURRENT THROMBOSIS Performed By: #### P OCGLUC #### [facility] [address] [place] [address] Dr. Nancy Montalvo PT Coag (PPP) [Time] 34.8 s Critically high 9.0-11.6 [facility] Comment on above: Performed By: #### P OCGLUC #### [facility] [address] [place] [address] Dr. Nancy Montalvo TROPONIN, HIGH SENSITIVITYon 07-10-2022 HSTROP 61.9 pg/mL Critically high 4.0-51.3 [facility] Comment on above: Result Comment: CUT- OFF POINTS HAVE BEEN ESTABLISHED BASED ON THE FOURTH UNIVERSAL DEFINITIONS OF MYOCARDIAL INFARCTION. THE UPPER REFERENCE LIMIT (URL) OF TROPONIN, DEFINED THE 99TH PERCENTILE OF cTnI DISTRIBUTION IN A REFERENCE POPULATION, HAS BEEN CONFIRMED THE DECISION THRESHOLD FOR ND DIAGNOSIS. Performed By: #### C MP #### [facility] [address] [place] [address] Dr. Nancy Montalvo URINE MICROSCOPIC ONLYon BACTERIA LARGE Abnormal NONE SEEN [facility] Comment on above: Performed By: #### P OCGLUC #### [facility] [address] [place] [address] Dr. Nancy Montalvo Bacteria identified Cx Nom (U) INDICATED Normal [facility] Comment on above: Performed By: #### P OCGLUC #### [facility] [address] [place] [address] Dr. Nancy Montalvo CAST SEEN Abnormal NONE SEEN [facility] Comment on above: Performed By: #### P OCGLUC #### [facility] [address] [place] [address] Dr. Nancy Montalvo Crystals LM Nom (Urine sed) NONE SEEN Normal NONE SEEN [facility] Comment on above: Performed By: #### P OCGLUC #### [facility] [address] [place] [address] Dr. Nancy Montalvo Epithelial cells LM Ql (Urine sed) FEW Abnormal NONE SEEN /RARE [facility] Comment on above: Performed By: #### P OCGLUC #### [facility] [address] [place] [address] Dr. Nancy Montalvo FINE GRANULAR CAST RARE Normal The [facility] Comment on above: Performed By: #### P OCGLUC #### [facility] [address] [place] [address] Dr. Nancy Montalvo HYALINE CAST RARE Normal [facility] Comment on above: Performed By: #### P OCGLUC #### [facility] [address] [place] [address] Dr. Nancy Montalvo MUCOUS NONE SEEN Normal NONE SEEN [facility] Comment on above: Performed By: #### P OCGLUC #### [facility] [address] [address] [address] Nancy Montalvo RBC 10-20 Abnormal 0-2 [facility] Comment on above: Performed By: #### P OCGLUC #### [facility] [address] [place] [address] Dr. Nancy Montalvo WBC 10-20 Abnormal NONE SEEN [facility] Comment on above: Performed By: #### P OCGLUC #### [facility] [address] [address] [address] Nancy Montalvo XR CHEST 1 Von 07-10-2022 XR CHEST 1 V EXAMINATION: XR CHES T 1 V HISTORY: Asthenia COMPARISON: XR chest 02/23/2020 FINDINGS: LUNGS: Elevated left hemidiaphragm with mild opacities within left lung base. VASCULATURE: No increased pulmonary vasculature. PLEURA: No pneumothorax, effusion, or pleural thickening. CARDIAC: No cardiomegaly or cardiac silhouette abnormality. MEDIASTINUM: No visible mass or adenopathy. BONES: No fracture or visible bone lesion. OTHER: Cardiac pacer with intact leads. IMPRESSION: 1. Suspect mild left basilar infiltrates or atelectasis with subsequent elevated left hemidiaphragm; new since prior study. Electronically authenticated by: HANNA BAILON Date: 2022-07-10 14:14 Normal [facility] Office Visiton 05-16-2022 Follow-up visit [id number] Carrie Lewis 1935 F Date Provider Department Center 05/16/2022 ROB ARAMBULA [facility] No family history on file Level of Service:29622 [place] OFFICE/OUTPATIENT ESTABLISHED MOD MDM 30-39 MIN Reason for Visit and Comments: Follow-up [007479] Normal [facility] CULTURE URINEon 04-27-2022 CULTURE URINE Isolate 1 Klebsiella pneumoniae ssp pneumoniae >100,000 cfu/mL of Isolate 2 Escherichia coli >100,000 cfu/mL of ORGANISM 2 Escherichia coli ANTIBIOTIC M.I.C RX STATUS Ampicillin >=32 R F Ampicillin/Sulbactam 16 I F Piperacillin/Tazobactam <=4 S F Cefazolin <=4 S F Ceftazidime <=1 S F Ceftriaxone <=1 S F Ertapenem <=0.5 S F Imipenem <=0.25 S F Amikacin <=2 S F Gentamicin <=1 S F Tobramycin <=1 S F Ciprofloxacin >=4 R F Levofloxacin >=8 R F Nitrofurantoin <=16 S F Trimethoprim/Sulfamethoxazo le <=20 S F ORGANISM 1 Klebsiella pneumoniae ssp pneumoniae ANTIBIOTIC M.I.C RX STATUS Ampicillin 16 R F Ampicillin/Sulbactam 4 S F Piperacillin/Tazobactam 8 S F Cefazolin <=4 S F Ceftazidime <=1 S F Ceftriaxone <=1 S F Ertapenem <=0.5 S F Imipenem <=0.25 S F Amikacin <=2 S F Gentamicin <=1 S F Tobramycin <=1 S F Ciprofloxacin <=0.25 S F Levofloxacin <=0.12 S F Nitrofurantoin <=16 S F Trimethoprim/Sulfamethoxazo le <=20 S F Normal [facility] Comment on above: Performed By: #### A 1C #### [facility] [address] [place] [address] Dr. Nancy Montalvo INSULINon 04-26-2022 Insulin 42.6 uIU/mL Critically high 2.6-24.9 [facility] Comment on above: Performed By: #### A 1C #### [facility] [address] [place] [address] Dr. Nancy Montalvo CBC AUTO DIFFon 04-25-2022 BASO # 0.1 103/ul Normal 0.0-0.1 [facility] Comment on above: Performed By: #### A 1C #### [facility] [address] [place] [address] Dr. Nancy Montalvo Basophils/100 WBC (Bld) 0.5 % Normal 0.2-2.0 [facility] Comment on above: Performed By: #### A 1C #### [facility] [address] [place] [address] Dr. Nancy Montalvo EO # 0.4 103/ul Normal 0.0-0.7 [facility] Comment on above: Performed By: #### A 1C #### [facility] [address] [place] [address] Dr. Nancy Montalvo Eosinophils/100 WBC (Bld) 3.1 % Normal 0.9-7.0 [facility] Comment on above: Performed By: #### A 1C #### [facility] [address] [place] [address] Dr. Nancy Montalvo Erythrocyte distribution width (RBC) [Ratio] 14.6 % Normal 11.0-15.0 [facility] Comment on above: Performed By: #### A 1C #### [facility] [address] [address] [address] Nancy Montalvo Hematocrit (Bld) [Volume fraction] 39.3 % Normal 36.0-48.0 [facility] Comment on above: Performed By: #### A 1C #### [facility] [address] [address] [address] Nancy Montalvo Hemoglobin (Bld) [Mass/Vol] 11.9 g/dL Critically low 12.0-16.0 [facility] Comment on above: Performed By: #### A 1C #### [facility] [address] [address] [address] Nancy Montalvo IG # 0.03 10e3/ul Normal 0.00-0.03 [facility] Comment on above: Performed By: #### A 1C #### [facility] [address] [address] [address] Nancy Montalvo IG % 0.2 % Normal 0.0-0.5 [facility] Comment on above: Performed By: #### A 1C #### [facility] [address] [address] [address] Nancy Montalvo LYMPH # 3.6 103/ul Normal 1.2-3.8 [facility] Comment on above: Performed By: #### A 1C #### [facility] [address] [address] [address] Nancy Montalvo Lymphocytes/100 WBC (Bld) 29.7 % Normal 20.5-60.0 [facility] Comment on above: Performed By: #### A 1C #### [facility] [address] [address] [address] Nancy Montalvo MANUAL DIFF REQ NO Normal [facility] Comment on above: Performed By: #### A 1C #### [facility] [address] [place] [address] Dr. Nancy Montalvo MCH (RBC) [Entitic mass] 31.9 pg Normal 26.7-34.0 [facility] Comment on above: Performed By: #### A 1C #### [facility] [address] [address] [address] Nancy Montalvo MCHC (RBC) [Mass/Vol] 30.3 g/dL Normal 29.9-35.2 [facility] Comment on above: Performed By: #### A 1C #### [facility] [address] [address] [address] Nancy Montalvo MCV (RBC) [Entitic vol] 105.4 fL Critically high 81.0-99.0 [facility] Comment on above: Performed By: #### A 1C #### [facility] [address] [address] [address] Nancy Montalvo MONO # 0.8 103/ul Normal 0.3-0.8 [facility] Comment on above: Performed By: #### A 1C #### [facility] [address] [place] [address] Dr. Nancy Montalvo Monocytes/100 WBC (Bld) 7.0 % Normal 1.7-12.0 [facility] Comment on above: Performed By: #### A 1C #### [facility] [address] [address] [address] Nancy Montalvo NEUT # 7.2 103/ul Critically high 1.4-6.5 [facility] Comment on above: Performed By: #### A 1C #### [facility] [address] [address] [address] Nancy Montalvo Neutrophils/100 WBC (Bld) 59.5 % Normal 43.0-75.0 [facility] Comment on above: Performed By: #### A 1C #### [facility] [address] [address] [address] Nancy Montalvo Platelet mean volume (Bld) [Entitic vol] 11.5 fL Normal 9.5-13.5 [facility] Comment on above: Performed By: #### A 1C #### [facility] [address] [address] [address] Nancy Montalvo PLT 241 103/ul Normal 150-450 [facility] Comment on above: Performed By: #### A 1C #### [facility] [address] [address] [address] Nancy Montalvo RBC 3.73 106/ul Critically low 4.20-5.40 [facility] Comment on above: Performed By: #### A 1C #### [facility] [address] [address] [address] Nancy Montalvo WBC 12.0 103/ul Critically high 4.0-11.0 [facility] Comment on above: Performed By: #### A 1C #### [facility] [address] [address] [address] Nancy Montalvo FREE THYROXINE INDEX T7on FTI 2.01 Normal 1.30-4.50 [facility] Comment on above: Performed By: #### B [id number] #### [facility] [address] [place] [address] Dr. Nancy Montalvo T3U 33.0 % Normal 30.0-39.0 [facility] Comment on above: Performed By: #### B [id number] #### [facility] [address] [place] [address] Dr. Nancy Montalvo T4 [Mass/Vol] 6.10 ug/dL Normal 4.80-13.90 [facility] Comment on above: Performed By: #### B [email or web address] #### [facility] [address] [place] [address] Dr. Nancy Montalvo GLYCOHEMOGLOBIN A1Con 2022 ADA RECOMMENDATION SEE BELOW Normal [facility] Comment on above: Result Comment: ADA RECOMMENDED LIMIT 4.0 - 6.0 ADA THERAPEUTIC TARGET < 7.0 ACTION SUGGESTED > 7.0 Performed By: #### U AMIC #### [facility] [address] [address] [address] Nancy Montalvo Glucose [Mass/Vol] 134 mg/dL Normal [facility] Comment on above: Performed By: #### U AMIC #### [facility] [address] [place] [address] Dr. Nancy Montalvo HbA1c (Bld) [Mass fraction] 6.3 % Critically high 4.5-6.2 [facility] Comment on above: Performed By: #### U AMIC #### [facility] [address] [address] [address] Nancy Montalvo IRONon 04-25-2022 Iron [Mass/Vol] 98.0 ug/dL Normal 50.0-170.0 [facility] Comment on above: Performed By: #### C MP #### [facility] [address] [address] [address] Nancy Montalvo LIPID PROFILEon 04-25-2022 CHOL-HDL RATIO NORM SEE BELOW Normal [facility] Comment on above: Result Comment: 3.3 - 4.4 LOW RISK 4.4 - 7.1 AVERAGE RISK 7.1 - 11.0 MODERATE RISK >11.0 HIGH RISK Performed By: #### B [id number] #### [facility] [address] [place] [address] Dr. Nancy Montalvo Cholesterol [Mass/Vol] 156 mg/dL Normal <=200 [facility] Comment on above: Performed By: #### B [id number] #### [facility] [address] [place] [address] Dr. Nancy Montalvo Cholesterol in HDL [Mass/Vol] 55 mg/dL Normal 40-60 [facility] Comment on above: Performed By: #### B [id number] #### [facility] [address] [place] [address] Dr. Nancy Montalvo Cholesterol in LDL [Mass/Vol] 74.4 mg/dL Normal [facility] Comment on above: Performed By: #### B [id number] #### [facility] [address] [place] [address] Dr. Nancy Montalvo Cholesterol.total/C holesterol in HDL [Mass ratio] 2.8 {ratio} Normal [facility] Comment on above: Performed By: #### B [id number] #### [facility] [address] [place] [address] Dr. Nancy Montalvo HDL NORMAL > or = 60 mg/dl - LO W CARDIOVASCULAR RISK <40 mg/dl - HIGH CARDIOVASCULAR RISK Normal [facility] Comment on above: Performed By: #### B [email or web address] #### [facility] [address] [place] [address] Dr. Nancy Montalvo LDL CALC NORMAL SEE BELOW Normal [facility] Comment on above: Result Comment: <100 mg/dl OPTIMAL 100 - 129 mg/dl NEAR OR ABOVE OPTIMAL 130 - 159 mg/dl BORDERLINE HIGH 160 - 189 mg/dl HIGH >190 mg/dl VERY HIGH Performed By: #### B [email or web address] #### [facility] [address] [place] [address] Dr. Nancy Montalvo Triglyceride [Mass/Vol] 133 mg/dL Normal <=150 [facility] Comment on above: Performed By: #### B [email or web address] #### [facility] [address] [place] [address] Dr. Nancy Montalvo VLDL CALC 26.6 mg/dL Normal [facility] Comment on above: Performed By: #### B [email or web address] #### [facility] [address] [place] [address] Dr. Nancy Montalvo PROF 14(COMP METB)on 023 Albumin [Mass/Vol] 3.5 g/dL Normal 3.4-5.0 [facility] Comment on above: Performed By: #### B [id number] #### [facility] [address] [place] [address] Dr. Nancy Montalvo Albumin/Globulin [Mass ratio] 0.9 {ratio} Normal [facility] Comment on above: Performed By: #### B [id number] #### [facility] [address] [place] [address] Dr. Nancy Montalvo ALP [Catalytic activity/Vol] 96 U/L Normal 46-116 [facility] Comment on above: Performed By: #### B [email or web address] #### [facility] [address] [place] [address] Dr. Nancy Montalvo ALT [Catalytic activity/Vol] 58 U/L Normal 14-59 [facility] Comment on above: Performed By: #### B [email or web address] #### [facility] [address] [place] [address] Dr. Nancy Montalvo Anion gap [Moles/Vol] 15.4 mmol/L Normal [facility] Comment on above: Performed By: #### B [email or web address] #### [facility] [address] [address] [address] Nancy Montalvo AST [Catalytic activity/Vol] 40 U/L Critically high 15-37 [facility] Comment on above: Performed By: #### B [email or web address] #### [facility] [address] [address] [address] Nancy Montalvo Bilirubin [Mass/Vol] 0.3 mg/dL Normal 0.2-1.0 [facility] Comment on above: Performed By: #### B [email or web address] #### [facility] [address] [place] [address] Dr. Nanyc Montalvo Calcium [Mass/Vol] 9.0 mg/dL Normal 8.5-10.1 [facility] Comment on above: Performed By: #### B [email or web address] #### [facility] [address] [place] [address] Dr. Nancy Montalvo Chloride [Moles/Vol] 107 mmol/L Normal 98-107 [facility] Comment on above: Performed By: #### B [email or web address] #### [facility] [address] [place] [address] Dr. Nancy Montalvo CO2 [Moles/Vol] 23.4 mmol/L Normal 21.0-32.0 [facility] Comment on above: Performed By: #### B [email or web address] #### [facility] [address] [place] [address] Dr. Nancy Montalvo Creatinine [Mass/Vol] 2.70 mg/dL Critically high 0.55-1.02 [facility] Comment on above: Performed By: #### B [email or web address] #### [facility] [address] [place] [address] Dr. Nancy Montalvo EGFR-AF MALDIVIAN 20 mL/min/1.73m2 Critically low >=60 [facility] Comment on above: Performed By: #### B [email or web address] #### [facility] [address] [place] [address] Dr. Nancy Montalvo EGFR-NON AF MALDIVIAN 17 mL/min/1.73m2 Critically low >=60 [facility] Comment on above: Performed By: #### B [email or web address] #### [facility] [address] [place] [address] Dr. Nancy Montalvo Globulin (S) [Mass/Vol] 3.9 g/dL Normal [facility] Comment on above: Performed By: #### B [email or web address] #### [facility] [address] [address] [address] Nancy Montalvo Glucose [Mass/Vol] 154 mg/dL Critically high 74-106 [facility] [place] Comment on above: Performed By: #### B [email or web address] #### [facility] [address] [place] [address] Dr. Nancy Montalvo Potassium [Moles/Vol] 3.8 mmol/L Normal 3.5-5.1 [facility] Comment on above: Performed By: #### B [id number] #### [facility] [address] [place] [address] Dr. Nancy Montalvo Protein [Mass/Vol] 7.4 g/dL Normal 6.4-8.2 [facility] Comment on above: Performed By: #### B [id number] #### [facility] [address] [place] [address] Dr. Nancy Montalvo Sodium [Moles/Vol] 142 mmol/L Normal 136-145 [facility] Comment on above: Performed By: #### B [id number] #### [facility] [address] [place] [address] Dr. Nancy Montalvo Urea nitrogen [Mass/Vol] 46.0 mg/dL Critically high 7.0-18.0 [facility] Comment on above: Performed By: #### B [email or web address] #### [facility] [address] [place] [address] Dr. Nancy Montalvo Urea nitrogen/Creatinine [Mass ratio] 17.0 mg/mg Normal [facility] Comment on above: Performed By: #### B [email or web address] #### [facility] [address] [place] [address] Dr. Nancy Montalvo TSHon 04-25-2022 TSH 2.035 uIU/mL Normal 0.358-3.740 [facility] Comment on above: Performed By: #### B [email or web address] #### [facility] [address] [place] [address] Dr. Nancy Montalvo UA RANDOM W/MICROSCOPICon BACTERIA MODERATE Abnormal NONE SEEN [facility] Comment on above: Performed By: #### U AMIC #### [facility] [address] [place] [address] Dr. Nancy Montalvo Bilirubin Ql (U) Negative Normal NEGATIVE [facility] Comment on above: Performed By: #### U AMIC #### [facility] [address] [place] [address] Dr. Nancy Montalvo CAST NONE SEEN Normal NONE SEEN [facility] Comment on above: Performed By: #### U AMIC #### [facility] [address] [place] [address] Dr. Nancy Montalvo Clarity (U) CLEAR Normal CLEAR [facility] Comment on above: Performed By: #### U AMIC #### [facility] [address] [place] [address] Dr. Nancy Montalvo Color (U) LT. YELLOW Normal YELLOW [facility] Comment on above: Performed By: #### U AMIC #### [facility] [address] [place] [address] Dr. Nancy Montalvo Crystals LM Nom (Urine sed) NONE SEEN Normal NONE SEEN [facility] Comment on above: Performed By: #### U AMIC #### [facility] [address] [place] [address] Dr. Nancy Montalvo Epithelial cells LM Ql (Urine sed) FEW Abnormal NONE SEEN /RARE [facility] Comment on above: Performed By: #### U AMIC #### [facility] [address] [place] [address] Dr. Nancy Montalvo Glucose Ql (U) Negative Normal NEGATIVE [facility] Comment on above: Performed By: #### U AMIC #### [facility] [address] [place] [address] Dr. Nancy Montalvo Hemoglobin Ql (U) Negative Normal NEGATIVE [facility] Comment on above: Performed By: #### U AMIC #### [facility] [address] [place] [address] Dr. Nancy Montalvo Ketones Ql (U) Negative Normal NEGATIVE [facility] Comment on above: Performed By: #### U AMIC #### [facility] [address] [place] [address] Dr. Nancy Montalvo LEUKOCYTES MODERATE Abnormal NEGATIVE [facility] Comment on above: Performed By: #### U AMIC #### [facility] [address] [place] [address] Dr. Nancy Montalvo MUCOUS NONE SEEN Normal NONE SEEN [facility] Comment on above: Performed By: #### U AMIC #### [facility] [address] [place] [address] Dr. Nancy Montalvo Nitrite Ql (U) Positive Abnormal NEGATIVE [facility] Comment on above: Performed By: #### U AMIC #### [facility] [address] [place] [address] Dr. Nancy Montalvo pH (U) 5.5 [pH] Normal 5-9 [facility] Comment on above: Performed By: #### U AMIC #### [facility] [address] [place] [address] Dr. Nancy Montalvo RBC 0-2 Normal 0-2 [facility] Comment on above: Performed By: #### U AMIC #### [facility] [address] [place] [address] Dr. Nancy Montalvo SPEC GRAVITY 1.015 Normal 1.005-<=1.0 25 [facility] Comment on above: Performed By: #### U AMIC #### [facility] [address] [place] [address] Dr. Nancy Montalvo UA PROTEIN Negative Normal NEGATIVE/ TRACE [facility] Comment on above: Performed By: #### U AMIC #### [facility] [address] [place] [address] Dr. Nancy Montalvo Urobilinogen Qn (U) 0.2 {Grant'U}/dL Normal 0.2 - 1. 0 [facility] Comment on above: Performed By: #### U AMIC #### [facility] [address] [place], [place] [address] Dr. Nancy Montalvo WBC 10-20 Abnormal NONE SEEN [facility] Comment on above: Performed By: #### U AMIC #### [facility] [address] [place], [place] [address] Dr. Nancy Montalvo ECHOCARDIO M/2D COMPLETEon 0 03-29-2022 ECHOCARDIO M/2D COMPLETE Patient: GEMMA LEWIS Exam Date: 03/29/2022 : 1935 Gender:F Ordering : BERNICE DELEON Admission #: [id number] Family : DR COLETTE MÉNDEZ . Order #: [id number] CLICK HERE TO VIEW EXAM ECHOCARDIOGRAM REPORT PROCEDURE: CARDIO PULMONARY ECHOCARDIO M/2D COMP INDICATIONS: Nonrheumatic aortic valve stenosis, Pacemaker COMPARISON: None. DESCRIPTION: COMPLETE ECHOCARDIOGRAM Real-time transthoracic echocardiography with 2D, M-mode, spectral and color flow Doppler performed. QUALITY: Technical quality was adequate. 67 135# 154/58 HR 61 LEFT VENTRICLE: Normal chamber size. Proximal septal hypertrophy (sigmoid septum). LV EF: Global left ventricular systolic function is normal. Visual estimation of left ventricular ejection fraction is 65%. No regional wall motion abnormality. DIASTOLIC: Unable to assess diastolic function due to rhythm. ATRIAL SEPTUM: Inadequately seen. LEFT ATRIUM: Severe dilatation. RIGHT ATRIUM: Severe dilatation. RIGHT VENTRICLE: Normal chamber size. Normal right ventricular systolic function. Pacer wire present. TRICUSPID VALVE: Normal mobility and thickness. No stenosis with mild to moderate regurgitation. Mild pulmonary hypertension. RVSP 45 mmHg MITRAL VALVE: Normal mobility and thickness. No evidence of mitral valve stenosis. Mild mitral annular calcification. Moderate to severe mitral regurgitation. AORTIC VALVE: Normal trileaflet appearance. Thickened aortic valve. Doppler velocity suggest moderate aortic valve stenosis. DVI 0.34 DIANA 1.2 cm2. Mild aortic regurgitation. AORTIC ROOT: Normal diameter and appearance. PULMONIC VALVE: Normal thickness and mobility. No stenosis. Trivial regurgitation. PERICARDIUM: No evidence of pericardial effusion. IVC: Collapses with inspirations. IVC is normal in size. CONCLUSION: Global left ventricular systolic function is normal; visually estimated ejection fraction is 60 to 65%. No regional wall motion abnormality. Severe biatrial enlargement. The right ventricle is normal in size and systolic function. Mild to moderate tricuspid regurgitation. Moderately elevated right-sided pressures. Moderate to severe mitral regurgitation. Moderate aortic valve stenosis. Mild aortic regurgitation. Adult Echocardiography Procedure Report Left Ventricle LVEDD (3.7 - 5.6 cm): 4.65 cm LVESD (2.2 - 4.0 cm): 3.31 cm LVPW thickness (0.5 - 1.0 cm): 1.17 cm LVOT Max Gradient: 4.25 mm[Hg], 4.25 mm[Hg] Peak Velocity (LVOT): 1.03 m/s, 1.03 m/s Mean Velocity (LVOT): 0.73 m/s LVOT Diameter 1.99 cm Left Ventricular Ejection Fraction: 55.43 %, 55.43 % Left Atrium LA Volume Index (2D A2C): 123.37 ml, 123.37 ml Left Atrium Systolic Dimension: 4.60 cm, 4.84 cm Mitral Valve Mitral Valve E-Wave Peak Velocity: 1.62 m/s Right Ventricle RV Internal Diastolic Dimension: 3.38 cm Aorta AO Root Diam: 3.40 cm Ascending Ao Diam: 3.30 cm Aortic Valve AoV Area (Peak Pardeep): 1.07 cm2, 1.07 cm2, 1.07 cm2, 1.07 cm2, 1.07 cm2, 1.07 cm2, 1.07 cm2, 1.07 cm2 AoV Area (VTI): 1.21 cm2, 1.21 cm2 Peak Velocity(Antegrade Flow): 3.00 m/s, 3.00 m/s Peak Gradient(Antegrade Flow): 35.97 mm[Hg], 35.97 mm[Hg] Mean Velocity(Antegrade Flow): 1.90 m/s Mean Gradient(Antegrade Flow): 17.58 mm[Hg] Velocity Time Integral: 70.10 cm Tricuspid Valve Peak Velocity (Regurgitant Flow): 3.24 m/s, 3.22 m/s, 2.86 m/s, 3.22 m/s Peak Velocity: 0.55 m/s Pulmonic Valve Peak Velocity: 0.89 m/s Peak Gradient: 3.19 mm[Hg] Right Atrium Dictated by: Dede Ma M.D. on 03/31/2022 at 12:12 Approved by: Dede Ma M.D. on 03/31/2022 at 12:16 Normal [facility] Refillon 03-27-2022 Refill [id number] Carrie Lewis rraine E 1935 F Date Provider Department Center 03/27/2022 ROB ARAMBULA [facility] CARD [place] Count No family history on file Reason for Visit and Comments: Med Refill [[id number]] Normal [facility] Orders Onlyon 03-23-2022 Orders Only [id number] Carrie Lewis rraine E 1935 F Date Provider Department Center 03/23/2022 LETITIA BOURNE [facility] No family history on file Normal [facility] Office Visiton 03-15-2022 Follow-up visit [id number] Carrie Lewis rraine E 1935 Date Provider Department [place] 03/15/2022 BERNICE MERCHANT [facility] No family history on file Level of Service:11035 [place] OFFICE/OUTPATIENT ESTABLISHED MOD MDM 30-39 MIN Normal [facility] GLYCOHEMOGLOBIN A1Con 2021 ADA RECOMMENDATION SEE BELOW Normal [facility] Comment on above: Result Comment: ADA RECOMMENDED LIMIT 4.0 - 6.0 ADA THERAPEUTIC TARGET < 7.0 ACTION SUGGESTED > 7.0 Performed By: #### A 1C #### [facility] [address] [address] [address] Nancy Montalvo Glucose [Mass/Vol] 97 mg/dL Normal [facility] Comment on above: Performed By: #### A 1C #### [facility] [address] [address] [address] Nancy Montalvo HbA1c (Bld) [Mass fraction] 5.0 % Normal 4.5-6.2 [facility] Comment on above: Performed By: #### A 1C #### [facility] [address] [address] [address] Nancy Montalvo PROTIMEon 10-24-2021 INR Coag (PPP) [Relative time] 2.17 {INR} Normal [facility] Comment on above: Performed By: #### A 1C #### [facility] [address] [place] [address] Dr. Nancy Montalvo INR GUIDELINES SEE BELOW Normal [facility] Comment on above: Result Comment: ADITYA RED INR: 2.0 - 3.0 CONDITIONS NOT LISTED BELOW 2.5 - 3.5 FOR PROSTHETIC HEART VALVE REPLACEMENT 2.5 - 3.5 RECURRENT THROMBOSIS Performed By: #### A 1C #### [facility] [address] [place] [address] Dr. Nancy Montalvo PT Coag (PPP) [Time] 22.3 s Critically high 9.0-11.6 [facility] Comment on above: Performed By: #### A 1C #### [facility] [address] [place] [address] Dr. Nancy Montalvo PTTon 10-24-2021 aPTT Coag (Bld) [Time] 35.0 s Normal 22.3-36.2 [facility] Comment on above: Performed By: #### A 1C #### [facility] [address] [place] [address] Dr. Nancy Montalvo BNPon 09-16-2021 Natriuretic peptide B (Bld) [Mass/Vol] 1955.0 pg/mL Critically high <=1,800.0 [facility] Comment on above: Performed By: #### P OCGLUC #### [facility] [address] [place] [address] Dr. Nancy Montalvo CBC AUTO DIFFon 09-16-2021 BASO # 0.0 103/ul Normal 0.0-0.1 [facility] Comment on above: Performed By: #### P OCGLUC #### [facility] [address] [place] [address] Dr. Nancy Montalvo Basophils/100 WBC (Bld) 0.4 % Normal 0.2-2.0 [facility] Comment on above: Performed By: #### P OCGLUC #### [facility] [address] [place] [address] Dr. Nancy Montalvo EO # 0.2 103/ul Normal 0.0-0.7 [facility] Comment on above: Performed By: #### P OCGLUC #### [facility] [address] [place] [address] Dr. Nancy Montalvo Eosinophils/100 WBC (Bld) 3.0 % Normal 0.9-7.0 [facility] Comment on above: Performed By: #### P OCGLUC #### [facility] [address] [place] [address] Dr. Nancy Montalvo Erythrocyte distribution width (RBC) [Ratio] 13.0 % Normal 11.0-15.0 [facility] Comment on above: Performed By: #### P OCGLUC #### [facility] [address] [place] [address] Dr. Nancy Montalvo Hematocrit (Bld) [Volume fraction] 29.3 % Critically low 36.0-48.0 [facility] Comment on above: Performed By: #### P OCGLUC #### [facility] [address] [place] [address] Dr. Nancy Montalvo Hemoglobin (Bld) [Mass/Vol] 9.2 g/dL Critically low 12.0-16.0 [facility] Comment on above: Performed By: #### P OCGLUC #### [facility] [address] [place] [address] Dr. Nancy Montalvo IG # 0.02 10e3/ul Normal 0.00-0.03 [facility] Comment on above: Performed By: #### P OCGLUC #### [facility] [address] [place] [address] Dr. Nancy Montalvo IG % 0.2 % Normal 0.0-0.5 [facility] Comment on above: Performed By: #### P OCGLUC #### [facility] [address] [place] [address] Dr. Nancy Montalvo LYMPH # 3.1 103/ul Normal 1.2-3.8 [facility] Comment on above: Performed By: #### P OCGLUC #### [facility] [address] [place] [address] Dr. Nancy Montalvo Lymphocytes/100 WBC (Bld) 37.7 % Normal 20.5-60.0 [facility] Comment on above: Performed By: #### P OCGLUC #### [facility] [address] [place] [address] Dr. Nancy Montalvo MANUAL DIFF REQ NO Normal [facility] Comment on above: Performed By: #### P OCGLUC #### [facility] [address] [place] [address] Dr. Nancy Montalvo MCH (RBC) [Entitic mass] 32.4 pg Normal 26.7-34.0 [facility] Comment on above: Performed By: #### P OCGLUC #### [facility] [address] [place] [address] Dr. Nancy Montalvo MCHC (RBC) [Mass/Vol] 31.4 g/dL Normal 29.9-35.2 [facility] Comment on above: Performed By: #### P OCGLUC #### [facility] [address] [place] [address] Dr. Nancy Montalvo MCV (RBC) [Entitic vol] 103.2 fL Critically high 81.0-99.0 [facility] Comment on above: Performed By: #### P OCGLUC #### [facility] [address] [place] [address] Dr. Nancy Montalvo MONO # 0.8 103/ul Normal 0.3-0.8 [facility] Comment on above: Performed By: #### P OCGLUC #### [facility] [address] [place] [address] Dr. Nancy Montalvo Monocytes/100 WBC (Bld) 9.3 % Normal 1.7-12.0 [facility] Comment on above: Performed By: #### P OCGLUC #### [facility] [address] [place] [address] Dr. Nancy Montalvo NEUT # 4.0 103/ul Normal 1.4-6.5 [facility] Comment on above: Performed By: #### P OCGLUC #### [facility] [address] [place] [address] Dr. Nancy Montalvo Neutrophils/100 WBC (Bld) 49.4 % Normal 43.0-75.0 [facility] Comment on above: Performed By: #### P OCGLUC #### [facility] [address] [place] [address] Dr. Nancy Montalvo Platelet mean volume (Bld) [Entitic vol] 12.5 fL Normal 9.5-13.5 [facility] Comment on above: Performed By: #### P OCGLUC #### [facility] [address] [place] [address] Dr. Nancy Montalvo PLT 137 103/ul Critically low 150-450 [facility] Comment on above: Performed By: #### P OCGLUC #### [facility] [address] [place] [address] Dr. Nancy Montalvo RBC 2.84 106/ul Critically low 4.20-5.40 [facility] Comment on above: Performed By: #### P OCGLUC #### [facility] [address] [place] [address] Dr. Nancy Montalvo WBC 8.1 103/ul Normal 4.0-11.0 [facility] Comment on above: Performed By: #### P OCGLUC #### [facility] [address] [place] [address] Dr. Nancy Montalvo PROF 14(COMP METB)on 022 Albumin [Mass/Vol] 2.5 g/dL Critically low 3.4-5.0 [facility] Comment on above: Performed By: #### A 1C #### [facility] [address] [place] [address] Dr. Nancy Montalvo Albumin/Globulin [Mass ratio] 0.8 {ratio} Normal [facility] Comment on above: Performed By: #### A 1C #### [facility] [address] [place] [address] Dr. Nancy Montalvo ALP [Catalytic activity/Vol] 52 U/L Normal 46-116 [facility] Comment on above: Performed By: #### A 1C #### [facility] [address] [place] [address] Dr. Nancy Montalvo ALT [Catalytic activity/Vol] 39 U/L Normal 14-59 [facility] Comment on above: Performed By: #### A 1C #### [facility] [address] [place] [address] Dr. Nancy Montalvo Anion gap [Moles/Vol] 10.7 mmol/L Normal [facility] Comment on above: Performed By: #### A 1C #### [facility] [address] [address] [address] Nancy Montalvo AST [Catalytic activity/Vol] 36 U/L Normal 15-37 [facility] Comment on above: Performed By: #### A 1C #### [facility] [address] [address] [address] Nancy Montalvo Bilirubin [Mass/Vol] 0.4 mg/dL Normal 0.2-1.0 [facility] Comment on above: Performed By: #### A 1C #### [facility] [address] [address] [address] Nancy Montalvo Calcium [Mass/Vol] 8.7 mg/dL Normal 8.5-10.1 [facility] Comment on above: Performed By: #### A 1C #### [facility] [address] [place] [address] Dr. Nancy Montalvo Chloride [Moles/Vol] 105 mmol/L Normal 98-107 [facility] Comment on above: Performed By: #### A 1C #### [facility] [address] [address] [address] Nancy Montalvo CO2 [Moles/Vol] 26.6 mmol/L Normal 21.0-32.0 [facility] Comment on above: Performed By: #### A 1C #### [facility] [address] [address] [address] Nancy Montalvo Creatinine [Mass/Vol] 2.29 mg/dL Critically high 0.55-1.02 [facility] Comment on above: Performed By: #### A 1C #### [facility] [address] [address] [address] Nancy Montalvo EGFR-AF MALDIVIAN 24 mL/min/1.73m2 Critically low >=60 [facility] Comment on above: Performed By: #### A 1C #### [facility] [address] [address] [address] Nancy Montalvo EGFR-NON AF MALDIVIAN 20 mL/min/1.73m2 Critically low >=60 [facility] Comment on above: Performed By: #### A 1C #### [facility] [address] [address] [address] Nancy Montalvo Globulin (S) [Mass/Vol] 3.2 g/dL Normal [facility] Comment on above: Performed By: #### A 1C #### [facility] [address] [address] [address] Nancy Montalvo Glucose [Mass/Vol] 88 mg/dL Normal 74-106 [facility] Comment on above: Performed By: #### A 1C #### [facility] [address] [address] [address] Nancy Montalvo Potassium [Moles/Vol] 4.3 mmol/L Normal 3.5-5.1 [facility] Comment on above: Performed By: #### A 1C #### [facility] [address] [address] [address] Nancy Montalvo Protein [Mass/Vol] 5.7 g/dL Critically low 6.4-8.2 Th e [facility] Comment on above: Performed By: #### A 1C #### [facility] [address] [address] [address] Nancy Montalvo Sodium [Moles/Vol] 138 mmol/L Normal 136-145 [facility] Comment on above: Performed By: #### A 1C #### [facility] [address] [address] [address] Nancy Montalvo Urea nitrogen [Mass/Vol] 58.0 mg/dL Critically high 7.0-18.0 [facility] Comment on above: Performed By: #### A 1C #### [facility] [address] [address] [address] Nancy Montalvo Urea nitrogen/Creatinine [Mass ratio] 25.3 mg/mg Normal [facility] Comment on above: Performed By: #### A 1C #### [facility] [address] [place] [address] Dr. Nancy Montalvo PROTIMEon 09-16-2021 INR Coag (PPP) [Relative time] 2.73 {INR} Normal [facility] Comment on above: Performed By: #### P T #### [facility] [address] [place] [address] Dr. Nancy Montalvo INR GUIDELINES SEE BELOW Normal [facility] Comment on above: Result Comment: ADITYA RED INR: 2.0 - 3.0 CONDITIONS NOT LISTED BELOW 2.5 - 3.5 FOR PROSTHETIC HEART VALVE REPLACEMENT 2.5 - 3.5 RECURRENT THROMBOSIS Performed By: #### P T #### [facility] [address] [place] [address] Dr. Nancy Montalvo PT Coag (PPP) [Time] 27.6 s Critically high 9.0-11.6 [facility] Comment on above: Performed By: #### P T #### [facility] [address] [place] [address] Dr. Nancy Montalvo BNPon 09-15-2021 Natriuretic peptide B (Bld) [Mass/Vol] 1425.0 pg/mL Normal <=1,800.0 [facility] Comment on above: Performed By: #### U AMIC #### [facility] [address] [place] [address] Dr. Nancy Montalvo CBC AUTO DIFFon 09-15-2021 BASO # 0.0 103/ul Normal 0.0-0.1 [facility] Comment on above: Performed By: #### C MP #### [facility] [address] [place] [address] Dr. Nancy Montalvo Basophils/100 WBC (Bld) 0.4 % Normal 0.2-2.0 [facility] Comment on above: Performed By: #### C MP #### [facility] [address] [place] [address] Dr. Nancy Montalvo EO # 0.2 103/ul Normal 0.0-0.7 [facility] Comment on above: Performed By: #### C MP #### [facility] [address] [place] [address] Dr. Nancy Montalvo Eosinophils/100 WBC (Bld) 3.1 % Normal 0.9-7.0 [facility] Comment on above: Performed By: #### C MP #### [facility] [address] [place] [address] Dr. Nancy Montalvo Erythrocyte distribution width (RBC) [Ratio] 13.2 % Normal 11.0-15.0 [facility] Comment on above: Performed By: #### C MP #### [facility] [address] [place] [address] Dr. Nancy Montalvo Hematocrit (Bld) [Volume fraction] 30.1 % Critically low 36.0-48.0 [facility] Comment on above: Performed By: #### C MP #### [facility] [address] [place] [address] Dr. Nancy Montalvo Hemoglobin (Bld) [Mass/Vol] 9.3 g/dL Critically low 12.0-16.0 [facility] Comment on above: Performed By: #### C MP #### [facility] [address] [place] [address] Dr. Nancy Montalvo IG # 0.02 10e3/ul Normal 0.00-0.03 [facility] Comment on above: Performed By: #### C MP #### [facility] [address] [place] [address] Dr. Nancy Montalvo IG % 0.3 % Normal 0.0-0.5 [facility] Comment on above: Performed By: #### C MP #### [facility] [address] [place] [address] Dr. Nancy Montalvo LYMPH # 2.8 103/ul Normal 1.2-3.8 [facility] Comment on above: Performed By: #### C MP #### [facility] [address] [place] [address] Dr. Nancy Montalvo Lymphocytes/100 WBC (Bld) 35.8 % Normal 20.5-60.0 [facility] Comment on above: Performed By: #### C MP #### [facility] [address] [place] [address] Dr. Nancy Montalvo MANUAL DIFF REQ NO Normal [facility] Comment on above: Performed By: #### C MP #### [facility] [address] [place] [address] Dr. Nancy Montalvo MCH (RBC) [Entitic mass] 32.3 pg Normal 26.7-34.0 [facility] Comment on above: Performed By: #### C MP #### [facility] [address] [place] [address] Dr. Nancy Montalvo MCHC (RBC) [Mass/Vol] 30.9 g/dL Normal 29.9-35.2 [facility] Comment on above: Performed By: #### C MP #### [facility] [address] [place] [address] Dr. Nancy Montalvo MCV (RBC) [Entitic vol] 104.5 fL Critically high 81.0-99.0 [facility] Comment on above: Performed By: #### C MP #### [facility] [address] [place] [address] Dr. Nancy Montalvo MONO # 0.7 103/ul Normal 0.3-0.8 [facility] Comment on above: Performed By: #### C MP #### [facility] [address] [place] [address] Dr. Nancy Montalvo Monocytes/100 WBC (Bld) 9.4 % Normal 1.7-12.0 [facility] Comment on above: Performed By: #### C MP #### [facility] [address] [place] [address] Dr. Nancy Montalvo NEUT # 4.0 103/ul Normal 1.4-6.5 [facility] Comment on above: Performed By: #### C MP #### [facility] [address] [place] [address] Dr. Nancy Montalvo Neutrophils/100 WBC (Bld) 51.0 % Normal 43.0-75.0 [facility] Comment on above: Performed By: #### C MP #### [facility] [address] [address] [address] Nancy Montalvo Platelet mean volume (Bld) [Entitic vol] 12.6 fL Normal 9.5-13.5 [facility] Comment on above: Performed By: #### C MP #### [facility] [address] [address] [address] Nancy Montalvo PLT 132 103/ul Critically low 150-450 [facility] Comment on above: Performed By: #### C MP #### [facility] [address] [address] [address] Nancy Montalvo RBC 2.88 106/ul Critically low 4.20-5.40 [facility] Comment on above: Performed By: #### C MP #### [facility] [address] [place] [address] Dr. Nancy Montalvo WBC 7.9 103/ul Normal 4.0-11.0 [facility] Comment on above: Performed By: #### C MP #### [facility] [address] [place] [address] Dr. Nancy Montalvo PROF 14(COMP METB)on 022 Albumin [Mass/Vol] 2.5 g/dL Critically low 3.4-5.0 [facility] Comment on above: Performed By: #### U AMIC #### [facility] [address] [place] [address] Dr. Nancy Montalvo Albumin/Globulin [Mass ratio] 0.8 {ratio} Normal [facility] Comment on above: Performed By: #### U AMIC #### [facility] [address] [place] [address] Dr. Nancy Montalvo ALP [Catalytic activity/Vol] 54 U/L Normal 46-116 [facility] Comment on above: Performed By: #### U AMIC #### [facility] [address] [place] [address] Dr. Nancy Montalvo ALT [Catalytic activity/Vol] 39 U/L Normal 14-59 [facility] Comment on above: Performed By: #### U AMIC #### [facility] [address] [address] [address] Nancy Montalvo Anion gap [Moles/Vol] 13.5 mmol/L Normal [facility] Comment on above: Performed By: #### U AMIC #### [facility] [address] [address] [address] Nancy Montalvo AST [Catalytic activity/Vol] 33 U/L Normal 15-37 [facility] Comment on above: Performed By: #### U AMIC #### [facility] [address] [address] [address] Nancy Montalvo Bilirubin [Mass/Vol] 0.2 mg/dL Normal 0.2-1.0 [facility] Comment on above: Performed By: #### U AMIC #### [facility] [address] [address] [address] Nancy Montalvo Calcium [Mass/Vol] 8.5 mg/dL Normal 8.5-10.1 [facility] Comment on above: Performed By: #### U AMIC #### [facility] [address] [address] [address] Nancy Montalvo Chloride [Moles/Vol] 104 mmol/L Normal 98-107 [facility] Comment on above: Performed By: #### U AMIC #### [facility] [address] [address] [address] Nancy Montalvo CO2 [Moles/Vol] 23.3 mmol/L Normal 21.0-32.0 [facility] Comment on above: Performed By: #### U AMIC #### [facility] [address] [address] [address] Nancy Montalvo Creatinine [Mass/Vol] 2.66 mg/dL Critically high 0.55-1.02 [facility] Comment on above: Performed By: #### U AMIC #### [facility] [address] [address] [address] Nancy Montalvo EGFR-AF MALDIVIAN 21 mL/min/1.73m2 Critically low >=60 [facility] Comment on above: Performed By: #### U AMIC #### [facility] [address] [address] [address] Nancy Montalvo EGFR-NON AF MALDIVIAN 17 mL/min/1.73m2 Critically low >=60 [facility] Comment on above: Performed By: #### U AMIC #### [facility] [address] [address] [address] Nancy Montalvo Globulin (S) [Mass/Vol] 3.2 g/dL Normal [facility] Comment on above: Performed By: #### U AMIC #### [facility] [address] [address] [address] Nancy Montalvo Glucose [Mass/Vol] 84 mg/dL Normal 74-106 [facility] Comment on above: Performed By: #### U AMIC #### [facility] [address] [address] [address] Nancy Montalvo Potassium [Moles/Vol] 4.8 mmol/L Normal 3.5-5.1 [facility] Comment on above: Performed By: #### U AMIC #### [facility] [address] [address] [address] Nacny Monatlvo Protein [Mass/Vol] 5.7 g/dL Critically low 6.4-8.2 Th e [facility] Comment on above: Performed By: #### U AMIC #### [facility] [address] [address] [address] Nancy Montalvo Sodium [Moles/Vol] 136 mmol/L Normal 136-145 [facility] Comment on above: Performed By: #### U AMIC #### [facility] [address] [address] [address] Nancy Montalvo Urea nitrogen [Mass/Vol] 66.0 mg/dL Critically high 7.0-18.0 [facility] Comment on above: Performed By: #### U AMIC #### [facility] [address] [address] [address] Nancy Montalvo Urea nitrogen/Creatinine [Mass ratio] 24.8 mg/mg Normal [facility] Comment on above: Performed By: #### U AMIC #### [facility] [address] [address] [address] Nancy Montalvo PROTIMEon 09-15-2021 INR Coag (PPP) [Relative time] 2.47 {INR} Normal [facility] Comment on above: Performed By: #### P OCGLUC #### [facility] [address] [place] [address] Dr. Nancy Montalvo INR GUIDELINES SEE BELOW Normal [facility] Comment on above: Result Comment: ADITYA RED INR: 2.0 - 3.0 CONDITIONS NOT LISTED BELOW 2.5 - 3.5 FOR PROSTHETIC HEART VALVE REPLACEMENT 2.5 - 3.5 RECURRENT THROMBOSIS Performed By: #### P OCGLUC #### [facility] [address] [place] [address] Dr. Nancy Montalvo PT Coag (PPP) [Time] 25.1 s Critically high 9.0-11.6 [facility] Comment on above: Performed By: #### P OCGLUC #### [facility] [address] [place] [address] Dr. Nancy Montalvo BNPon 09-14-2021 Natriuretic peptide B (Bld) [Mass/Vol] 1255.0 pg/mL Normal <=1,800.0 [facility] Comment on above: Performed By: #### P OCGLUC #### [facility] [address] [place] [address] Dr. Nancy Montalvo CBC W MANUAL DIFFon 09-15-19 22 ATYPICAL LYMPH # Normal [facility] Comment on above: Performed By: #### P OCGLUC #### [facility] [address] [place] [address] Dr. Nacny Montalvo ATYPICAL LYMPH % Normal [facility] Comment on above: Performed By: #### P OCGLUC #### [facility] [address] [place] [address] Dr. Nancy Montalvo BAND # Normal 0.0-0.3 [facility] Comment on above: Performed By: #### P OCGLUC #### [facility] [address] [place] [address] Dr. Nancy Montalvo BAND % Normal 0-5 [facility] Comment on above: Performed By: #### P OCGLUC #### [facility] [address] [address] [address] Nancy Montalvo BASOM # 0.11 103/ul Critically high 0.00-0.10 [facility] Comment on above: Performed By: #### P OCGLUC #### [facility] [address] [address] [address] Nancy Montalvo BASOM % 1.0 % Normal 0.2-2.0 [facility] Comment on above: Performed By: #### P OCGLUC #### [facility] [address] [address] [address] Nancy Montalvo BLAST # Normal [facility] Comment on above: Performed By: #### P OCGLUC #### [facility] [address] [address] [address] Nancy Montalvo BLAST % Normal [facility] Comment on above: Performed By: #### P OCGLUC #### [facility] [address] [address] [address] Nancy Montalvo CORRECTED WBC Normal 4.0-11.0 [facility] Comment on above: Performed By: #### P OCGLUC #### [facility] [address] [address] [address] Nancy Montalvo EOS # 0.45 103/ul Normal 0.00-0.70 [facility] Comment on above: Performed By: #### P OCGLUC #### [facility] [address] [address] [address] Nancy Montalvo EOS% 4.0 % Normal 0.9-7.0 [facility] Comment on above: Performed By: #### P OCGLUC #### [facility] [address] [address] [address] Nancy Montalvo HCT 32.7 % Critically low 36.0-48.0 [facility] Comment on above: Performed By: #### P OCGLUC #### [facility] [address] [place] [address] Dr. Nancy Montalvo HGB 10.2 g/dl Critically low 12.0-16.0 [facility] Comment on above: Performed By: #### P OCGLUC #### [facility] [address] [address] [address] Nancy Montalvo LYMPHM # 5.38 103/ul Critically high 1.20-3.80 [facility] Comment on above: Performed By: #### P OCGLUC #### [facility] [address] [address] [address] Nancy Montalvo LYMPHM% 48.0 % Normal 20.5-60.0 [facility] Comment on above: Performed By: #### P OCGLUC #### [facility] [address] [address] [address] Nancy Montalvo MCH 32.4 pg Normal 26.7-34.0 [facility] Comment on above: Performed By: #### P OCGLUC #### [facility] [address] [place] [address] Dr. Nancy Montalvo MCHC 31.2 g/dl Normal 29.9-35.2 [facility] Comment on above: Performed By: #### P OCGLUC #### [facility] [address] [address] [address] Nancy Montalvo MCV 103.8 fL Critically high 81.0-99.0 [facility] Comment on above: Performed By: #### P OCGLUC #### [facility] [address] [place] [address] Dr. Nancy Montalvo METAMYELOCYTE # Normal [facility] Comment on above: Performed By: #### P OCGLUC #### [facility] [address] [place] [address] Dr. Nancy Montalvo METAMYELOCYTE % Normal [facility] Comment on above: Performed By: #### P OCGLUC #### [facility] [address] [place] [address] Dr. Nancy Montalvo MONOM# 0.56 103/ul Normal 0.30-0.80 [facility] Comment on above: Performed By: #### P OCGLUC #### [facility] [address] [address] [address] Nancy Montalvo MONOM% 5.0 % Normal 1.7-12.0 [facility] Comment on above: Performed By: #### P OCGLUC #### [facility] [address] [place] [address] Dr. Nancy Montalvo MPV 12.6 fL Normal 9.5-13.5 [facility] Comment on above: Performed By: #### P OCGLUC #### [facility] [address] [address] [address] Nancy Montalvo MYELOCYTE # Normal [facility] Comment on above: Performed By: #### P OCGLUC #### [facility] [address] [place] [address] Dr. Nancy Montalvo MYELOCYTE % Normal [facility] Comment on above: Performed By: #### P OCGLUC #### [facility] [address] [place] [address] Dr. Nancy Montalvo NRBC Normal [facility] Comment on above: Performed By: #### P OCGLUC #### [facility] [address] [place] [address] Dr. Nancy Montalvo PLT 145 103/ul Critically low 150-450 [facility] Comment on above: Performed By: #### P OCGLUC #### [facility] [address] [place] [address] Dr. Nancy Montalvo RBC 3.15 106/ul Critically low 4.20-5.40 [facility] Comment on above: Performed By: #### P OCGLUC #### [facility] [address] [place] [address] Dr. Nancy Montalvo RDW 13.2 % Normal 11.0-15.0 [facility] Comment on above: Performed By: #### P OCGLUC #### [facility] [address] [place] [address] Dr. Nancy Montalvo SEG # 4.70 103/ul Normal 1.40-6.50 [facility] Comment on above: Performed By: #### P OCGLUC #### [facility] [address] [place] [address] Dr. Nancy Montalvo SEG % 42.0 % Critically low 43.0-75.0 [facility] Comment on above: Performed By: #### P OCGLUC #### [facility] [address] [address] [address] Nancy Montalvo WBC 11.2 103/ul Critically high 4.0-11.0 [facility] Comment on above: Performed By: #### P OCGLUC #### [facility] [address] [address] [address] Nancy Montalvo POINT OF CARE GLUCOSEon 08-18 Glucose [Mass/Vol] 101 mg/dL Normal 74-106 [facility] Comment on above: Performed By: #### P OCGLUC #### [facility] [address] [place] [address] Dr. Nancy Montalvo Glucose [Mass/Vol] 145 mg/dL Critically high 74-106 [facility] Comment on above: Performed By: #### C MP #### [facility] [address] [address] [address] Nancy Montalvo Glucose [Mass/Vol] 87 mg/dL Normal 74-106 [facility] Comment on above: Performed By: #### U AMIC #### [facility] [address] [place] [address] Dr. Nancy Montalvo PROF 14(COMP METB)on 022 Albumin [Mass/Vol] 2.8 g/dL Critically low 3.4-5.0 [facility] Comment on above: Performed By: #### P OCGLUC #### [facility] [address] [place] [address] Dr. Nancy Montalvo Albumin/Globulin [Mass ratio] 0.8 {ratio} Normal [facility] Comment on above: Performed By: #### P OCGLUC #### [facility] [address] [place] [address] Dr. Nancy Montalvo ALP [Catalytic activity/Vol] 59 U/L Normal 46-116 [facility] Comment on above: Performed By: #### P OCGLUC #### [facility] [address] [place] [address] Dr. Nancy Montalvo ALT [Catalytic activity/Vol] 43 U/L Normal 14-59 [facility] Comment on above: Performed By: #### P OCGLUC #### [facility] [address] [address] [address] Nancy Montalvo Anion gap [Moles/Vol] 12.9 mmol/L Normal [facility] Comment on above: Performed By: #### P OCGLUC #### [facility] [address] [address] [address] Nancy Montalvo AST [Catalytic activity/Vol] 31 U/L Normal 15-37 [facility] Comment on above: Performed By: #### P OCGLUC #### [facility] [address] [address] [address] Nancy Montalvo Bilirubin [Mass/Vol] 0.3 mg/dL Normal 0.2-1.0 [facility] Comment on above: Performed By: #### P OCGLUC #### [facility] [address] [address] [address] Nancy Montalvo Calcium [Mass/Vol] 8.8 mg/dL Normal 8.5-10.1 [facility] Comment on above: Performed By: #### P OCGLUC #### [facility] [address] [address] [address] Nancy Montalvo Chloride [Moles/Vol] 104 mmol/L Normal 98-107 [facility] Comment on above: Performed By: #### P OCGLUC #### [facility] [address] [address] [address] Nancy Montalvo CO2 [Moles/Vol] 23.7 mmol/L Normal 21.0-32.0 [facility] Comment on above: Performed By: #### P OCGLUC #### [facility] [address] [address] [address] Nancy Montalvo Creatinine [Mass/Vol] 2.43 mg/dL Critically high 0.55-1.02 [facility] Comment on above: Performed By: #### P OCGLUC #### [facility] [address] [address] [address] Nancy Montalvo EGFR-AF MALDIVIAN 23 mL/min/1.73m2 Critically low >=60 [facility] Comment on above: Performed By: #### P OCGLUC #### [facility] [address] [address] [address] Nancy Montalvo EGFR-NON AF MALDIVIAN 19 mL/min/1.73m2 Critically low >=60 [facility] Comment on above: Performed By: #### P OCGLUC #### [facility] [address] [address] [address] Nancy Montalvo Globulin (S) [Mass/Vol] 3.3 g/dL Normal [facility] Comment on above: Performed By: #### P OCGLUC #### [facility] [address] [address] [address] Nancy Montalvo Glucose [Mass/Vol] 80 mg/dL Normal 74-106 [facility] Comment on above: Performed By: #### P OCGLUC #### [facility] [address] [address] [address] Nancy oMntalvo Potassium [Moles/Vol] 4.6 mmol/L Normal 3.5-5.1 [facility] Comment on above: Performed By: #### P OCGLUC #### [facility] [address] [address] [address] Nancy Montalvo Protein [Mass/Vol] 6.1 g/dL Critically low 6.4-8.2 [facility] Comment on above: Performed By: #### P OCGLUC #### [facility] [address] [address] [address] Nancy Montalvo Sodium [Moles/Vol] 136 mmol/L Normal 136-145 [facility] Comment on above: Performed By: #### P OCGLUC #### [facility] [address] [address] [address] Nancy Montalvo Urea nitrogen [Mass/Vol] 59.0 mg/dL Critically high 7.0-18.0 [facility] Comment on above: Performed By: #### P OCGLUC #### [facility] [address] [address] [address] Nancy Montalvo Urea nitrogen/Creatinine [Mass ratio] 24.3 mg/mg Normal [facility] Comment on above: Performed By: #### P OCGLUC #### [facility] [address] [place] [address] Dr. Nancy Montalvo PROTIMEon 09-14-2021 INR Coag (PPP) [Relative time] 1.79 {INR} Normal [facility] Comment on above: Performed By: #### C MP #### [facility] [address] [place] [address] Dr. Nancy Montalvo INR GUIDELINES SEE BELOW Normal [facility] Comment on above: Result Comment: ADITYA RED INR: 2.0 - 3.0 CONDITIONS NOT LISTED BELOW 2.5 - 3.5 FOR PROSTHETIC HEART VALVE REPLACEMENT 2.5 - 3.5 RECURRENT THROMBOSIS Performed By: #### C MP #### [facility] [address] [place] [address] Dr. Nancy Montalvo PT Coag (PPP) [Time] 18.6 s Critically high 9.0-11.6 [facility] Comment on above: Performed By: #### C MP #### [facility] [address] [place] [address] Dr. Nancy Montalvo UA RANDOM W/MICROSCOPICon BACTERIA TRACE Abnormal NONE SEEN [facility] Comment on above: Performed By: #### A 1C #### [facility] [address] [place] [address] Dr. Nancy Montalvo Bilirubin Ql (U) Negative Normal NEGATIVE [facility] Comment on above: Performed By: #### A 1C #### [facility] [address] [place] [address] Dr. Nancy Montalvo CAST NONE SEEN Normal NONE SEEN [facility] Comment on above: Performed By: #### A 1C #### [facility] [address] [place] [address] Dr. Nancy Montalvo Clarity (U) CLEAR Normal CLEAR [facility] Comment on above: Performed By: #### A 1C #### [facility] [address] [place] [address] Dr. Nancy Montalvo Color (U) LT. YELLOW Normal YELLOW [facility] Comment on above: Performed By: #### A 1C #### [facility] [address] [place] [address] Dr. Nancy Montalvo Crystals LM Nom (Urine sed) NONE SEEN Normal NONE SEEN [facility] Comment on above: Performed By: #### A 1C #### [facility] [address] [place] [address] Dr. Nancy Montalvo Epithelial cells LM Ql (Urine sed) FEW Abnormal NONE SEEN /RARE [facility] Comment on above: Performed By: #### A 1C #### [facility] [address] [place] [address] Dr. Nancy Montalvo Glucose Ql (U) Negative Normal NEGATIVE [facility] Comment on above: Performed By: #### A 1C #### [facility] [address] [place] [address] Dr. Nancy Montalvo Hemoglobin Ql (U) Negative Normal NEGATIVE [facility] Comment on above: Performed By: #### A 1C #### [facility] [address] [place] [address] Dr. Nancy Montalvo Ketones Ql (U) Negative Normal NEGATIVE [facility] Comment on above: Performed By: #### A 1C #### [facility] [address] [place] [address] Dr. Nancy Montalvo LEUKOCYTES MODERATE Abnormal NEGATIVE [facility] Comment on above: Performed By: #### A 1C #### [facility] [address] [place] [address] Dr. Nancy Montalvo MUCOUS SMALL Abnormal NONE SEEN [facility] Comment on above: Performed By: #### A 1C #### [facility] [address] [place] [address] Dr. Nancy Montalvo Nitrite Ql (U) Negative Normal NEGATIVE [facility] Comment on above: Performed By: #### A 1C #### [facility] [address] [place] [address] Dr. Nancy Montalvo pH (U) 5.0 [pH] Normal 5-9 [facility] Comment on above: Performed By: #### A 1C #### [facility] [address] [place] [address] Dr. Nancy Montalvo RBC NONE SEEN Abnormal 0-2 [facility] Comment on above: Performed By: #### A 1C #### [facility] [address] [place] [address] Dr. Nancy Montalvo SPEC GRAVITY 1.025 Normal 1.005-<=1.0 25 [facility] Comment on above: Performed By: #### A 1C #### [facility] [address] [place] [address] Dr. Nancy Montalvo UA PROTEIN Negative Normal NEGATIVE/ TRACE [facility] Comment on above: Performed By: #### A 1C #### [facility] [address] [place] [address] Dr. Nancy Montalvo Urobilinogen Qn (U) 0.2 {Grant'U}/dL Normal 0.2 - 1. 0 [facility] Comment on above: Performed By: #### A 1C #### [facility] [address] [place] [address] Dr. Nancy Montalvo WBC 5-10 Abnormal NONE SEEN [facility] Comment on above: Performed By: #### A 1C #### [facility] [address] [place] [address] Dr. Nancy Montalvo CBC AUTO DIFFon 09-13-2021 BASO # 0.1 103/ul Normal 0.0-0.1 [facility] Comment on above: Performed By: #### C VDTB #### [facility] [address] [place] [address] Dr. Nancy Montalvo Basophils/100 WBC (Bld) 0.5 % Normal 0.2-2.0 [facility] Comment on above: Performed By: #### C VDTBH #### [facility] [address] [place] [address] Dr. Nancy Montalvo EO # 0.1 103/ul Normal 0.0-0.7 [facility] Comment on above: Performed By: #### C VDTBH #### [facility] [address] [place] [address] Dr. Nancy Montalvo Eosinophils/100 WBC (Bld) 0.6 % Critically low 0.9-7.0 [facility] Comment on above: Performed By: #### C VDTBH #### [facility] [address] [place] [address] Dr. Nancy Montalvo Erythrocyte distribution width (RBC) [Ratio] 12.9 % Normal 11.0-15.0 [facility] Comment on above: Performed By: #### C VDTBH #### [facility] [address] [place] [address] Dr. Nancy Montalvo Hematocrit (Bld) [Volume fraction] 33.3 % Critically low 36.0-48.0 [facility] Comment on above: Performed By: #### C VDTBH #### [facility] [address] [place] [address] Dr. Nancy Montalvo Hemoglobin (Bld) [Mass/Vol] 10.4 g/dL Critically low 12.0-16.0 [facility] Comment on above: Performed By: #### C VDTBH #### [facility] [address] [place] [address] Dr. Nancy Montalvo IG # 0.03 10e3/ul Normal 0.00-0.03 [facility] Comment on above: Performed By: #### C VDTBH #### [facility] [address] [place] [address] Dr. Nancy Montalvo IG % 0.3 % Normal 0.0-0.5 [facility] Comment on above: Performed By: #### C VDTBH #### [facility] [address] [place] [address] Dr. Nancy Montalvo LYMPH # 1.9 103/ul Normal 1.2-3.8 [facility] Comment on above: Performed By: #### C VDTBH #### [facility] [address] [place] [address] Dr. Nancy Montalvo Lymphocytes/100 WBC (Bld) 19.9 % Critically low 20.5-60.0 [facility] Comment on above: Performed By: #### C VDTBH #### [facility] [address] [place] [address] Dr. Nancy Montalvo MANUAL DIFF REQ NO Normal [facility] Comment on above: Performed By: #### C VDTBH #### [facility] [address] [place] [address] Dr. Nancy Montalvo MCH (RBC) [Entitic mass] 31.9 pg Normal 26.7-34.0 [facility] Comment on above: Performed By: #### C VDTBH #### [facility] [address] [place] [address] Dr. Nancy Montalvo MCHC (RBC) [Mass/Vol] 31.2 g/dL Normal 29.9-35.2 [facility] Comment on above: Performed By: #### C VDTBH #### [facility] [address] [place] [address] Dr. Nancy Montalvo MCV (RBC) [Entitic vol] 102.1 fL Critically high 81.0-99.0 [facility] Comment on above: Performed By: #### C VDTBH #### [facility] [address] [place] [address] Dr. Nancy Montalvo MONO # 0.8 103/ul Normal 0.3-0.8 [facility] Comment on above: Performed By: #### C VDTBH #### [facility] [address] [place] [address] Dr. Nancy Montalvo Monocytes/100 WBC (Bld) 8.1 % Normal 1.7-12.0 [facility] Comment on above: Performed By: #### C VDTBH #### [facility] [address] [place] [address] Dr. Nancy Montalvo NEUT # 6.6 103/ul Critically high 1.4-6.5 [facility] Comment on above: Performed By: #### C VDTBH #### [facility] [address] [place] [address] Dr. Nancy Montalvo Neutrophils/100 WBC (Bld) 70.6 % Normal 43.0-75.0 [facility] Comment on above: Performed By: #### C VDTBH #### [facility] [address] [place] [address] Dr. Nancy Montalvo Platelet mean volume (Bld) [Entitic vol] 12.3 fL Normal 9.5-13.5 [facility] Comment on above: Performed By: #### C VDTBH #### [facility] [address] [address] [address] Nancy Montalvo PLT 160 103/ul Normal 150-450 [facility] Comment on above: Performed By: #### C VDTBH #### [facility] [address] [address] [address] Nancy Montalvo RBC 3.26 106/ul Critically low 4.20-5.40 [facility] Comment on above: Performed By: #### C VDTBH #### [facility] [address] [address] [address] Nancy Montalvo WBC 9.4 103/ul Normal 4.0-11.0 [facility] Comment on above: Performed By: #### C VDTBH #### [facility] [address] [place] [address] PELVIS WO CONon 2 CT PELVIS WO CON EXAMINATION: CT PELV IS WO CON HISTORY: Pain of left hip joint COMPARISON: No relevant comparison available. TECHNIQUE: Multi-planar CT images were created without IV contrast. Dose reduction techniques were achieved by using automated exposure control and/or adjustment of mA and/or kV according to patient size and/or use of iterative reconstruction technique. FINDINGS: BONES: Acute minimally displaced fracture involving the medial aspect of the left superior pubic ramus extending to the pubic symphysis. Cortical discontinuity lucency identified through the left sacrum extending from the superior to the inferior margin best seen on coronal image 37. Moderate degenerative changes of the spine with disc space narrowing and degenerative spondylosis and facet osteoarthropathy. Mild to moderate bilateral hip osteoarthropathy with joint space narrowing marginal osteophyte formation. Heterotopic ossification bilateral greater trochanters SOFT TISSUES: Negative. No visible soft tissue swelling. EFFUSION: None visible. OTHER: Extensive arterial atherosclerosis.. Hysterectomy. Mild fluid distention of the urinary bladder IMPRESSION: Acute nondisplaced fracture extending through the entire left sacrum just medial to the sacroiliac joint Acute complex nondisplaced fracture involving the medial aspect of the left superior pubic ramus extending to the pubic symphysis Electronically authenticated by: JUAN JOSÉ CHENG Date: 2021-09-13 10:47 Normal [facility] Covid-19 PCR (CVDTBH)on 08-18 SARS-CoV-2 (COVID-19) RNA MARLENE+probe Ql (Unsp spec) Not detected Normal NOT DETECTED [facility] Comment on above: Result Comment: When diagnostic testing is negative, the possibility of a false negative should be considered in the context of a patient's recent exposures and the presence of clinical signs and symptoms consistent with SARS-CoV-2. This test is not yet approved or cleared by the [place] FDA. When there are no FDA-approved or cleared tests available, and other criteria are met, FDA can make tests available under an emergency access mechanism called an Emergency Use Authorization (EUA). The EUA for this test is supported by the [place] of Health and Human Service's declaration that circumstances exist to justify the emergency use of in vitro diagnostics for the detection and/or diagnosis of the virus that causes COVID-19. This EUA will remain in effect for the duration of the COVID-19 declaration justifying emergency of IVDs, unless it is terminated or revoked by the FDA (after which the test may no longer be used). Performed By: #### P OCGLUC #### [facility] [address] [place] [address] Dr. Nancy Montalvo POINT OF CARE GLUCOSEon 08-18 Glucose [Mass/Vol] 75 mg/dL Normal 74-106 [facility] Comment on above: Performed By: #### P OCGLUC #### [facility] [address] [place] [address] Dr. Nancy Montalvo Glucose [Mass/Vol] 82 mg/dL Normal 74-106 [facility] Comment on above: Performed By: #### P OCGLUC #### [facility] [address] [place] [address] Dr. Nancy Montalvo PROF CHEM 8 (BAS METB)on Anion gap [Moles/Vol] 16.7 mmol/L Normal [facility] Comment on above: Performed By: #### B LDCX1 #### [facility] [address] [address] [address] Nancy Montalvo Calcium [Mass/Vol] 8.8 mg/dL Normal 8.5-10.1 [facility] Comment on above: Performed By: #### B LDCX1 #### [facility] [address] [address] [address] Nancy Montalvo Chloride [Moles/Vol] 107 mmol/L Normal 98-107 [facility] Comment on above: Performed By: #### B LDCX1 #### [facility] [address] [address] [address] Nancy Montalvo CO2 [Moles/Vol] 23.0 mmol/L Normal 21.0-32.0 [facility] Comment on above: Performed By: #### B LDCX1 #### [facility] [address] [address] [address] Nancy Montalvo Creatinine [Mass/Vol] 2.51 mg/dL Critically high 0.55-1.02 [facility] Comment on above: Performed By: #### B LDCX1 #### [facility] [address] [address] [address] Nancy Montalvo EGFR-AF MALDIVIAN 22 mL/min/1.73m2 Critically low >=60 [facility] Comment on above: Performed By: #### B LDCX1 #### [facility] [address] [address] [address] Nancy Montalvo EGFR-NON AF MALDIVIAN 18 mL/min/1.73m2 Critically low >=60 [facility] Comment on above: Performed By: #### B LDCX1 #### [facility] [address] [address] [address] Nancy Montalvo Glucose [Mass/Vol] 91 mg/dL Normal 74-106 [facility] Comment on above: Performed By: #### B LDCX1 #### [facility] [address] [address] [address] Nancy Montalvo Potassium [Moles/Vol] 4.7 mmol/L Normal 3.5-5.1 [facility] Comment on above: Performed By: #### B LDCX1 #### [facility] [address] [place] [address] Dr. Nancy Montalvo Sodium [Moles/Vol] 142 mmol/L Normal 136-145 [facility] Comment on above: Performed By: #### B LDCX1 #### [facility] [address] [place] [address] Dr. Nancy Montalvo Urea nitrogen [Mass/Vol] 60.0 mg/dL Critically high 7.0-18.0 [facility] Comment on above: Performed By: #### B LDCX1 #### [facility] [address] [place] [address] Dr. Nancy Montalvo Urea nitrogen/Creatinine [Mass ratio] 23.9 mg/mg Normal [facility] Comment on above: Performed By: #### B LDCX1 #### [facility] [address] [place] [address] Dr. Nancy Montalvo PROTIMEon 09-13-2021 INR Coag (PPP) [Relative time] 1.53 {INR} Normal [facility] Comment on above: Performed By: #### P OCGLUC #### [facility] [address] [place] [address] Dr. Nancy Montalvo INR GUIDELINES SEE BELOW Normal [facility] Comment on above: Result Comment: ADITYA RED INR: 2.0 - 3.0 CONDITIONS NOT LISTED BELOW 2.5 - 3.5 FOR PROSTHETIC HEART VALVE REPLACEMENT 2.5 - 3.5 RECURRENT THROMBOSIS Performed By: #### P OCGLUC #### [facility] [address] [place] [address] Dr. Nancy Montalvo PT Coag (PPP) [Time] 16.1 s Critically high 9.0-11.6 [facility] Comment on above: Performed By: #### P OCGLUC #### [facility] [address] [place] [address] Dr. Nancy Montalvo T4on 09-13-2021 T4 [Mass/Vol] 7.30 ug/dL Normal 4.80-13.90 [facility] Comment on above: Performed By: #### U AMIC #### [facility] [address] [place], [place] [address] Dr. Nancy Montalvo TSHon 09-13-2021 TSH 1.045 uIU/mL Normal 0.358-3.740 [facility] Comment on above: Performed By: #### U AMIC #### [facility] [address] [place], [place] [address] Dr. Nancy Montalvo Cardiovascular Lab Reporton 08-30-2021 Cardiovascular Lab Report [facility] Patient Name: [facility] Gemma Blackmon MR #: [id number] Department of Physician: Rob Morales MD Medicine Service Date: 08/30/2021 Division of Birthdate: 1935 Cardiology Room #: [facility] Services [place] [address] Cardiovascular Laboratory Report PACEMAKER GENERATOR CHANGE POCKET REVISION PROCEDURE NOTE DATE OF PROCEDURE: 08/30/2021 PERFORMING PHYSICIAN: Dr. Rob Morales CONSENT: Patient LOCATION: EP Lab PROCEDURE PERFORMED: 1. Implant of new pacemaker generator ([employer]). 2. Explant of pacemaker generator ([employer]). 3. Pocket Revision. INDICATIONS: 1. S/p PPM with SSS. 2. Device at EOL. PROCEDURAL SEDATION: Versed and Fentanyl. Moderate sedation was administered by the sedation nurse under my supervision and noted in the CVL log. Intraprocedural face to face sedation time: 30min. Monitoring: Cardiac telemetry, Blood pressure, continuous pulse oxymetry. FLUROSCOPY: 0s PREPARATION: 85-year-old lady with a history of sick sinus node, who underwent a pacemaker implant by Dr. Winchester on August 19, 2012. The device was reached NELSON and she has come for generator replacement. PROCEDURAL DETAILS: Patient was placed in supine position and I decided to proceed with opening of the pocket. Local infiltration of 1% Lidocaine was performed, and an incision was created in the right upper chest over the previous incision scar. Dissection was then performed using cautery down to the capsule of the previously implanted pacemaker device. Capsulotomy was performed and the old leads were freed from the capsule and the device was exteriorized. Once the lead was freed after dissection, unhealthy tissue was removed. A pocket was created to accommodate the device. The leads were then attached to a new [employer] generator and the leads tug tested. Pocket hemostasis was ensured and it was then copiously and vigorously irrigated with antibiotic solution. The leads were wrapped under the device and the device was placed in the pocket and tacked to underlying muscle. The pocket was closed in layers: muscle and subcutaneous layer using 2-0 Vicryl and subcuticular using 3-0 Biosyn absorbable monofilament suture. Glue was applied and dressing was placed on top. Lead parameters were then rechecked through the device as noted below. Device info: [employer] DR IS-1 Model# L311 Serial# [id number] RA lead: Implanted on 08/19/2012 [employer] Dextrus IS-1 4136-53 cm, Serial #[id number] Sensin.3mV Threshold: 0.7V@0.4ms Impedance: 564 Ohms RV lead: Implanted on 08/19/2012 [employer] Dextrus IS-1 4137-60cm Serial #[id number] Sensin.8mV Threshold: 1.8V@0.4ms Impedance: 468 Ohms POST PROCEDURE EXAM: Patient was hemodynamically stable. COMPLICATIONS: None. ESTIMATED BLOOD LOSS: 5cc IMPRESSION: 1. Successful pacemaker generator change with excellent pacing and sensing parameters, 2. Explant of previously implanted pacemaker generator. RECOMMENDATIONS: 1. Dressing to be removed after 2 weeks 2. Do not wet the incision for 7 days 3. F/u in device clinic 2 weeks from discharge or sooner for any concerns 4. No heavy lifting for 1 week. 5. Follow up in EP clinic in 1 month. 6. Continue antibiotics. Rob Morales MD Cardiac Electrophysiology Electronically Signed by: Rob Morales MD 08/31/2021 10:26 A Rob Morales MD Date Dict: 08/30/2021/12:37 P/Rob Morales MD Date Trans: 08/30/2021 01:25 P/catalina [id number] cc: Colette Méndez M.D. [place] [id number] [facility] Praneeth Justice [facility] [id number] Normal [facility] Covid-19 PCR (CVDTB)on 08-17 SARS-CoV-2 (COVID-19) RNA MARLENE+probe Ql (Unsp spec) Not detected Normal NOT DETECTED [facility] Comment on above: Result Comment: This test is not yet approved or cleared by the [place] FDA. When there are no FDA-approved or cleared tests available, and other criteria are met, FDA can make tests available under an emergency access mechanism called an Emergency Use Authorization (EUA). The EUA for this test is supported by the [place] of Health and Human Service's (HHS's) declaration that circumstances exist to justify the emergency use of in vitro diagnostics for the detection and/or diagnosis of the virus that causes COVID-19. This EUA will remain in effect (meaning this test can be used) for the duration of the COVID-19 declaration justifying emergency of IVDs, unless it is terminated or revoked by FDA (after which the test may no longer be used). When diagnostic testing is negative, the possibility of a false negative should be considered in the context of a patient's recent exposures and the presence of clinical signs and symptoms consistent with SARS-CoV-2. Performed By: #### C MP #### [facility] [address] [address] [address] Nancy Montalvo Vital Signs Date Time Vital Sign Value Performing Clinician Lisset craven 11-14-2022 13:26-0400 Blood Pressure Location Tom THOMPSON [facility] 11-14-2022 13:26-0400 Diastolic blood pressure 60 mm[Hg] Tom HAYNESL [facility] 11-14-2022 13:26-0400 Heart rate 70 /min Tom THOMPSON [facility] 11-14-2022 13:26-0400 Respiratory rate 16 /min Tom THOMPSON [facility] 11-14-2022 13:26-0400 Systolic blood pressure 116 mm[Hg] Tom THOMPSON [facility] [place] Encounters Encounter Date Encounter Type Care Provider Facility Start: 08-15-2023 End: 08-15-2023 ambulatory ADAN DENNIS [facility] Start: 07-23-2023 End: 07-30-2023 Evaluation and management of inpatient SANJAY BERNARD [facility] Start: 07-23-2023 End: 07-30-2023 Evaluation and management of inpatient SANJAY BERNARD [facility] Start: 07-23-2023 Emergency department patient visit KATY MONTOYA [facility] Start: 07-18-2023 End: 07-21-[address] [facility] Start: 07-03-2023 End: 07-03-2023 [facility] Start: 06-27-2023 End: 06-28-[address] [facility] Start: 06-20-2023 End: 06-21-2023 [facility] Start: 06-13-2023 End: 06-14-2023 [facility] Start: 05-29-2023 End: 05-30-2023 [facility] Start: 05-29-2023 End: 05-29-2023 Subsequent hospital visit by physician Ayaka Downing [facility] Medication Management Comment on above: Atrial fibrillation, unspecified type (HCC) (Primary Dx) Start: 05-17-2023 End: 05-18-2023 [facility] Start: 04-25-2023 End: 04-26-2023 [facility] Start: 04-25-2023 End: 04-25-2023 Subsequent hospital visit by physician Nallely Degroot [facility] Medication Management Comment on above: Atrial fibrillation, unspecified type (HCC) (Primary Dx) Start: 04-13-2023 End: 04-14-2023 [facility] Start: 04-13-2023 End: 04-13-2023 Subsequent hospital visit by physician Juan José Velazquez [facility] Work Phone: [facility] Medication Management Comment on above: Atrial fibrillation, unspecified type (HCC) (Primary Dx) Start: 04-05-2023 End: 04-06-2023 ambulatory COLETTE Son [facility] Start: 03-08-2023 End: 03-08-2023 ambulatory ABDI ROYAL Not Available Start: 02-26-2023 End: 02-26-2023 ambulatory Colette Méndez Facility:[facility] Start: 02-26-2023 End: 02-26-2023 ambulatory MD Colette Méndez Work Phone: [facility] Work Phone: Start: 02-26-2023 End: 02-26-2023 Patient encounter procedure MD Colette Méndez Work Phone: [facility] Work Phone: Start: 02-15-2023 End: 02-15-2023 ambulatory Colette Méndez Facility:[facility] Start: 02-15-2023 End: 02-15-2023 ambulatory MD Colette Méndez Work Phone: [facility] Work Phone: Start: 02-15-2023 End: 02-15-2023 Patient encounter procedure MD Colette Méndez Work Phone: [facility] Work Phone: Start: 12-05-2022 End: 12-06-2022 ambulatory Tom THOMPSON Facility: [place] Start: 11-22-2022 End: 11-23-2022 ambulatory Tom THOMPSON Facility:[facility] [place] Start: 11-22-2022 End: 11-22-2022 Patient encounter procedure Tom THOMPSON General Surgery Nill/Said [place] Start: 11-14-2022 End: 11-15-2022 ambulatory Tom Jimenez JAY Facility:[facility] Start: 11-14-2022 End: 11-14-2022 Patient encounter procedure Tom Jimenez IVYSuzy General Surgery Jay/Debi [facility] Start: 10-31-2022 End: 10-31-2022 ambulatory [facility] Start: 10-17-2022 ambulatory Tom JAY Facility:[facility] Start: 08-07-2022 ambulatory AURELIO NGOZIJia . Facility: [facility] Start: 08-02-2022 End: 08-02-[address] COLETTE MÉNDEZ . Facility:[facility] Start: 07-26-2022 End: 07-26-[address] COLETTE MÉNDEZ . Facility:[facility] Start: 07-24-2022 End: 07-24-[address] COLETTE MÉNDEZ . Facility:[facility] Start: 07-21-2022 End: 07-21-[address] COLETTE MÉNDEZ . Facility:[facility] Start: 07-21-2022 End: 07-21-[address] COLETTE MÉNDEZ . Facility:[facility] Start: 07-19-2022 End: 07-19-[address] COLETTE MÉNDEZ . Facility:[facility] Start: 07-17-2022 End: 08-16-2022 ambulatory SHAIKH Carly TINSLEY Facility:[facility] Start: 07-11-2022 End: 07-14-2022 Evaluation and management of inpatient DR COLETTE MÉNDEZ . Facility:[facility] Start: 07-01-2022 End: 07-02-[address] COLETTE MÉNDEZ . Facility:[facility] Start: 06-19-2022 End: 07-14-2022 ambulatory SHAIKH Carly TINSLEY Facility:[facility] Start: 05-17-2022 End: 06-16-2022 ambulatory SHAIKH Carly TINSLEY Facility:[facility] Start: 05-16-2022 End: 05-16-2022 ambulatory [facility] Start: 04-25-2022 End: 04-26-[address] COLETTE MÉNDEZ . Facility:[facility] Start: 04-19-2022 End: 05-17-2022 ambulatory AYOUB H FAWWAD Facility:[facility] Start: 03-29-2022 End: 03-30-2022 ambulatory BERNICE DELEON Facility:[facility] Start: 03-20-2022 End: 04-19-2022 ambulatory AYOUB H FAWWAD Facility:[facility] Start: 03-15-2022 End: 03-15-2022 ambulatory [facility] Start: 02-16-2022 End: 03-19-2022 ambulatory AYOUB H FAWWAD Facility:[facility] Start: 01-17-2022 End: 02-15-2022 ambulatory AYOUB H FAWWAD Facility:[facility] Start: 12-18-2021 End: 01-16-2022 ambulatory AYOUB H FAWWAD Facility:[facility] Start: 12-02-2021 End: 12-17-2021 ambulatory AYOUB H DANIELWAD Facility:[facility] Start: 10-24-2021 End: 10-25-[address] COLETTE MÉNDEZ . Facility:[facility] Start: 09-30-2021 ambulatory RAMIRO RODRIGUEZ Facility :[facility] Start: 09-13-2021 End: 09-16-[address] COLETTE MÉNDEZ . Facility:[facility] Start: 08-30-2021 End: 08-31-2021 ambulatory ROB MORALES Facility:[facility] Start: 08-29-2021 Encounter for preprocedural laboratory examination ROB MORALES [facility] Start: 08-26-2021 End: 08-27-2021 ambulatory ROB MORALES Facility:[facility] Start: 08-26-2021 End: 08-27-2021 Encounter for preprocedural laboratory examination ROB MORALES Facility:[facility] Start: 11-28-2018 End: 11-28-2018 Patient encounter procedure UNKNOWN PROVIDER Facility:[facility] Start: 08-01-2018 End: 08-01-2018 Patient encounter procedure UNKNOWN PROVIDER Facility:[facility] Start: 02-21-2018 End: 02-21-2018 Patient encounter procedure UNKNOWN PROVIDER Facility:[facility] Procedures Date Procedure Procedure Detail Performing Clinician Start: 05-29-2023 Prothrombin time Histor ical Provider Start: 04-25-2023 Prothrombin time Histor ical Provider Start: 04-13-2023 End: 04-13-2023 Prothrombin time Historical Provider Start: 05-16-2022 Follow-up visit Follow-up ROB MASON Abdominal hysterectomy Joe barillas JAY Appendectomy Tom JAY Cardioversion Tom THOMPSON Excision of melanoma Tom THOMPSON Implantable cardiac pacemaker (physical object) Tom HAYNESL 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 using fluoroscopic guidance Tom THOMPSON Stapling of stomach Tom JAY Plan of Treatment Date Care Activity Detail Author Start: 06-13-2023 End: 06-13-2023 Patient encounter procedure 06/13/2023 3:30 PM EDT Appointment [facility] [address] [place] [address] [facility] Comment on above: ([facility] 03/22/2024) Start: 05-09-2023 End: 05-09-2023 Patient encounter procedure 05/09/2023 3:30 PM EST Appointment [facility] [address] [place] [address] ([facility] [place] 03/22/2024) [facility] Comment on above: ([facility] 03/22/2024) Start: 04-25-2023 End: 04-25-2023 Patient encounter procedure 04/25/2023 3:30 PM EST Appointment [facility] [address] [place] [address] new ([facility] 03/22/2024) [facility] Comment on above: new ([facility] ) Start: 03-19-2023 Annual Wellness Visi t (Medicare Advantage) Annual Wellness Visit (Medicare Advantage) [facility] Start: 10-17-2022 Influenza vaccination Flu vaccine (# 1) [facility] Start: 1984 Shingles vaccine (1 of 2) Shingles vaccine (1 of 2) [facility] Start: 1953 DTaP/Tdap/Td vaccine (1 - Tdap) DTaP/Tdap/Td vaccine (1 - Tdap) [facility] Start: 1946 Depression Screen Depression Screen [facility] Start: 1944 Lipid panel Lipids [facility] Immunizations Immunization Date Immunization Notes Care Provider Fa cility 07-25-2022 SARS-CoV-2 (COVID-19 ) mRNAMUL.ORD![id number] [facility] 07-10-2022 SARS-CoV-2 (COVID-19 ) mRNA-1273 vaccine [facility] 02-27-2022 SARS-CoV-2 (COVID-19 ) mRNAMUL.ORD![id number] Tom [facility] 09-29-2021 SARS-CoV-2 mRNA (udcctqvicyf-isad-cqzmu se) vaccine [facility] 05-07-2020 SARS-CoV-2 (COVID-19 ) mRNA BNT-162b2 vax [facility] Comment on above: Result Comment: 2022: [id number] 04-16-2020 SARS-CoV-2 (COVID-19 ) mRNA BNT-162b2 vax [facility] Comment on above: Result Comment: 2022: [id number] Payers Date Payer Category Payer Medicare [id number] 2023 Self-pay 1960 Medicare [id number] 1960 Self-pay [id number] 1934 Unknown [id number] 2.16. 840.1.013180.3.579.2.732 1934 Unknown [id number] 2.16. 840.1.818016.3.579.2.732 1934 Unknown [id number] 2.16. 840.1.335182.3.579.2.732 1934 Unknown [id number] 2.16.8 40.1.522190.3.579.2.647 1934 Unknown [id number] 2.16.84 0.1.047675.3.579.2.593 1934 Unknown [id number] 2.16.84 0.1.446672.3.579.2.593 1934 Unknown [id number] 2.16.84 0.1.171476.3.579.2.593 1934 Unknown [id number] 2.16.84 0.1.962907.3.579.2.593 1934 Unknown [id number] 2.16.84 0.1.264311.3.579.2.593 1934 Unknown [id number] 2.16.84 0.1.033873.3.579.2.593 1934 Unknown [id number] 2.16.84 0.1.042719.3.579.2.593 1934 Unknown [id number] 2.16.84 0.1.828866.3.579.2.593 1934 Unknown [id number] 2.16.84 0.1.547671.3.579.2.593 1934 Unknown [id number] 2.16.84 0.1.999312.3.579.2.593 1934 Unknown [id number] 2.16.84 0.1.698046.3.579.2.593 1934 Unknown [id number] 2.16.84 0.1.903539.3.579.2.593 1934 Unknown [id number] 2.16.84 0.1.770704.3.579.2.593 1934 Unknown [id number] 2.16.84 0.1.060986.3.579.2.593 1934 Unknown [id number] 2.16.84 0.1.384449.3.579.2.593 1934 Unknown [id number] 2.16.84 0.1.744934.3.579.2.593 1934 Unknown [id number] 2.16.84 0.1.299627.3.579.2.593 1934 Unknown [id number] 2.16.84 0.1.679070.3.579.2.593 1934 Unknown [id number] 2.16.84 0.1.266939.3.579.2.593 1934 Unknown [id number] 2.16.84 0.1.796461.3.579.2.593 1934 Unknown [id number] 2.16.84 0.1.124323.3.579.2.593 1934 Unknown [id number] 2.16.84 0.1.573481.3.579.2.593 1934 Unknown [id number] 2.16.84 0.1.616577.3.579.2.593 1934 Unknown [id number] 2.16.84 0.1.868780.3.579.2.593 1934 Unknown [id number] 2.16.8 40.1.296780.3.579.2.727 1934 Unknown [id number] 2.16.8 40.1.963413.3.579.2.727 1934 Unknown [id number] 2.16.8 40.1.992517.3.579.2.727 1934 Unknown [id number] 2.16.840 .1.706707.3.579.2.1259 1934 Unknown [id number] 2.16.8 40.1.364443.3.579.2.176 1934 Unknown [id number] 2.16.8 40.1.353086.3.579.2.176 1934 Unknown [id number] 2.16.8 40.1.958312.3.579.2.176 1934 Unknown [id number] 2.16.8 40.1.194479.3.579.2.176 1934 Unknown [id number] 2.16.8 40.1.321122.3.579.2.176 1934 Unknown [id number] 2.16.8 40.1.485305.3.579.2.176 1934 Unknown [id number] 2.16.8 40.1.293247.3.579.2.176 1934 Unknown [id number] 2.16. 840.1.507584.3.579.2.175 1934 Unknown [id number] 2.16. 840.1.804653.3.579.2.175 1934 Unknown [id number] 2.16. 840.1.080745.3.579.2.175 1934 Unknown [id number] 2.16. 840.1.086228.3.579.2.175 Medicare [id number] Unknown SJ MARIA [id number] Unknown [id number] 2.16.8 40.1.636740.3.579.2.531 Unknown [id number] 2.16.8 40.1.930671.3.579.2.531 Social History Date Type Detail Facility Start: 11-14-2022 Tobacco smoking status Ex-smoker (finding) [facility] [place] Tobacco smoking status Never [facility] Start: 08-02-2012 Sex Assigned At Female F [facility] Start: 1935 Sex Assigned At Female F [facility] Tobacco smoking status NHIS Tobacco smoking consumption unknown [facility] Start: 08-02-2012 History of Social function [facility] Start: 1935 Sex Assigned At Not on file B [facility] Functional Status Date Assessment Result Facility 11-14-2022 Functional Status N/A [facility] [place] Clinical Notes 09-13-2021 to 05-29-2023 Ayaka Downing, [facility] - 05/29/2023 3:10 PM Nallely Faulkner, [facility] - 04/25/2023 3:30 PM Juan José Bullock, [facility] - 04/13/2023 3:30 PM EST Note Date & Type Note Facility 05-29-2023 History of Present illness Narrative Patient seen in person in Medication Management Service. Patient states compliant all of the time with regimen. No bleeding or thromboembolic side effects noted. No significant med or dietary changes. No significant recent illness or disease state changes. Patient still using the cranberry supplementation. Patient acknowledges they are still an active patient of referring provider which is Dr. Méndez - Yes PT/INR done via POC meter per protocol. INR was therapeutic at 2.2. (goal 2 - 3) Warfarin regimen will be continued at current dose 1.5 mg Sunday, 3 mg all other. Will retest in 2 weeks. Patient understands dosing directions and information discussed. Dosing schedule and follow up appointment given to patient. Progress note routed to referring physicians office. Patient acknowledges working in Consult Agreement with Pharmacist as referred by his/her physician/provider. For Pharmacy Admin Tracking Only Intervention Detail: Total # of Interventions Recommended: 0 Total # of Interventions Accepted: 0 Time Spent (min): 20 Ayaka Downing, LiliamD PGY1 Chemical Treatment Operator [facility] documented in this encounter [facility] 04-25-2023 History of Present illness Narrative Patient seen in person in Medication Management Service. Patient states compliant most of the time with regimen. Son reported 1.5 mg Sunday and and 3 mg all other days however when he returned home and spoke with patient was given 1.5 mg Wednesdays and 3 mg all other days. No bleeding or thromboembolic side effects noted. Patient had a slice of canned cranberry 2 nights ago. Discussed interaction with warfarin and plan to avoid. Pt brought med list last visit, states no changes. However, upon discussion patient had been taking cranberry supplements. Ran out for maybe a day or two. Daughter in law picked up more- pt taking [employer] cranberry concentration 30,000mg with vitamin c 1 tablet per day. Discussed consistent with number of tablet and staying with the same brand. No significant recent illness or disease state changes. PT/INR done via POC meter per protocol. INR was therapeutic at 2.7. (goal 2 - 3) INR is trending up and will be restarting cranberry supplement with vitamin c Warfarin regimen will be decreased to 1.5 mg Sun/Sun and 3 mg all other days. Will retest in 2 weeks. Patient understands dosing directions and information discussed. Dosing schedule and follow up appointment given to patient. Progress note routed to referring physicians office. Patient acknowledges working in Consult Agreement with Pharmacist as referred by his/her physician/provider. COVID 19 screening completed. At this time patient denies symptoms, recent travel and exposure. Patient educated to screen for temperature and COVID-19 symptoms prior to coming to clinic for next appointment. They are instructed to call the clinic to reschedule if they have any symptoms. Standing order for PT/INR has been placed in preparation to transition to possible remote INR monitoring given efforts to reduce the spread of COVID-19. For Pharmacy Admin Tracking Only Intervention Detail: Adherence Monitorin and Dose Adjustment: 1, reason: Therapy Optimization Total # of Interventions Recommended: 2 Total # of Interventions Accepted: 2 Time Spent (min): 20 Nallely Degroot, Liliam D, [facility] 04/25/2023 4:10 PM documented in this encounter [facility] 04-13-2023 History of Present illness Narrative Patient seen in person in Medication Management Service. Patient states compliant most of the time with regimen. No bleeding or thromboembolic side effects noted. No significant med or dietary changes. No significant recent illness or disease state changes. PT/INR done via POC meter per protocol. INR was therapeutic at 2.1. (goal 2 - 3) Warfarin regimen will be continued at current dose 1.5 mg Wed and 3 mg all other days. Will retest in 10 days. Patient understands dosing directions and information discussed. Dosing schedule and follow up appointment given to patient. Progress note routed to referring physicians office. Patient acknowledges working in Consult Agreement with Pharmacist as referred by his/her physician/provider. COVID 19 screening completed. At this time patient denies symptoms, recent travel and exposure. Patient educated to screen for temperature and COVID-19 symptoms prior to coming to clinic for next appointment. They are instructed to call the clinic to reschedule if they have any symptoms. Standing order for PT/INR has been placed in preparation to transition to possible remote INR monitoring given efforts to reduce the spread of COVID-19. For Pharmacy Admin Tracking Only Intervention Detail: Adherence Monitorin Total # of Interventions Recommended: 0 Total # of Interventions Accepted: 0 Time Spent (min): 20 documented in this encounter [facility] 11-14-2022 Note Chief Complaint consultation for nevus HPI Staff 87 year old female presents on consultation from Dr. Méndez for nevus. Reports several year history of multiple, scattered changing lesions. 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 Patient is taking Coumadin. History of Present Illness 87 yo female with multiple medical problems, on Coumadin, personal h/o melanoma of forehead; referred for skin lesions; multiple flat, nonpigmented lesions on head and neck, trunk; left arm with painful, raised lesion; patient unsure if lesion is enlarging/changing. Review of Systems PHQ Score Initial Depression Screen Score: 0 ROS - Provider Constitutional: no fever, no sweats, no weight loss. Eyes: no glasses, no blurred vision, no visual loss. ENMT: no dentures, no hoarseness, no swallowing difficulties, no hearing loss, no ear infection(s), no nose bleeds. Cardiovascular: normal blood pressure, no chest pain, regular heartbeat, no heart murmur. Respiratory: no shortness of breath, no cough, no asthma, no wheezing. Gastrointestinal: no nausea, no vomiting, no diarrhea, no constipation, no blood in stool, no change in bowel habits, no abdominal pain, no hepatitis. Genitourinary: no kidney stones, no urine infection, no dysuria. Musculoskeletal: no pain, no weakness. Skin: no changing moles, no rash, yes skin lumps. Neurologic: no seizures, no epilepsy, no headache. Psychiatric: no emotional or psychiatric problem. Heme/Lymph: no bleeding problems, no anemia, no blood clots, no transfusions. Allergy/Immunologic: no swollen lymph nodes/glands, no IV drug abuse. Other: Additional ROS info: Except as noted in the above Review of Systems and in the History of Present Illness, all other systems have been reviewed and are negative or noncontributory. Physical Exam Vitals & Measurements HR: 70(Peripheral) RR: 16 BP: 116/60 HT: 67 in HT: 170 cm WT: 63.6 kg WT: 139.92 lb BMI: 22.01 HEENT: normal conjunctiva, sclera clear, no scleral icterus, EOM intact, PERRLA, oral mucosa moist without lesions. Neck: trachea midline, no mass, symmetric, no thyromegaly or nodules, no adenopathy Respiratory: lungs CTA, respirations non labored. Cardiovascular: regular rate and rhythm, moderate murmur, no pedal edema or varicosities. Musculoskeletal: normal gait, digits and nails without infection, nodes, cyanosis, clubbing. Skin: no rashes, left upper arm with 7 mm raised, firm, erythematous lesion, tender, no ulceration; multiple seborrheic keratoses trunk, forehead, extremities, no ulcers, no subcutaneous nodules, induration. Psychiatric/Neuro: oriented to time, place, person, judgement normal, affect appropriate for age, insight intact, no focal deficits. Tests: review of old records completed, Discussed surgical options, risks, and possible complications with patient. Assessment/Plan 1. Neoplasm of uncertain behavior of skin of upper arm (D48.5: Neoplasm of uncertain behavior of skin) plan excisional biopsy under local anesthesia in the office for definitive diagnosis and treatment; informed consent obtained.; continue Coumadin; will have increased bruising. 2. Seborrheic keratoses (L82.1: Other seborrheic keratosis) no need for excision at this time. Follow-up No qualifying data available Problem List/Past Medical History Ongoing Acute combined systolic and diastolic heart failure.. Allergic rhinitis Amnesia Aortic valve disorder Aortic valve regurgitation Aortic valve stenosis Asthma Atrial premature complex BMI 22.0-22.9, adult Chronic fatigue syndrome Chronic kidney disease stage 3 Congestive heart failure Cystocele without uterine prolapse Diabetes mellitus without complication Essential hypertension Gastroesophageal reflux disease Hemorrhoids Hyperlipidemia Hypothyroidism Insomnia Leukocytosis Lumbar radiculopathy Mitral valve regurgitation Neoplasm of uncertain behavior of skin of upper arm Palpitations Paroxysmal atrial fibrillation Paroxysmal supraventricular tachycardia Rheumatoid arthritis Seborrheic keratoses Senile osteoporosis Sinus node dysfunction Tricuspid valve regurgitation Varicose veins of lower extremity Historical No qualifying data Procedure/Surgical History Abdominal hysterectomy, Appendectomy, Cardioversion, Excision of melanoma, Gastric stapling, Implantable cardiac pacemaker, Kyphoplasty of fracture of lumbar spine using fluoroscopic guidance. Medications amiodarone 100 mg Tab, 200 mg= 2 tab(s), Oral, BID atorvastatin 40 mg Tab, 40 mg= 1 tab(s), Oral, Daily Centrum Silver oral tablet, 1 tab(s), Oral, Daily cetirizine 10 mg Tab, 10 mg= 1 tab(s), Oral, Daily Cytomel 5 mcg Tab, 5 mcg= 1 tab(s), Oral, Daily DilTIAZem (Eqv-Dilacor XR) 240 mg/24 hours oral capsule, extended release, 240 mg= 1 cap(s), Oral, Daily doxepin 10 mg Cap, 10 mg= 1 cap(s), Oral, Once a day (at bedtime) escitalopram 10 mg Tab, 10 mg= 1 tab(s), Oral, Chrissy (more content not included)... [facility] Comment on above: Result Comment: Elec tronically Signed By: JAY BRYAN, Tom Lujan\Date and Time Signed: 11/14/22 13:57 EDT 10-31-2022 Note [facility] Electrophysiology Note [facility] Reason for visit: 6 month follow up 10/31/22 Patient is doing well. She was admitted to [facility] for weakness but has been doing well since discharge. Device check 10/31/22 reveals no significant episodes of A-fib with RVR. 1 or 2 mode switch episodes which are short. 05/11 Patient underwent generator change and pocket revision on 08/30/2021. she is active with no limitations no syncope and no other issues no chest pain. Device check that was done on 05/16/2022 shows normal device function however the RV threshold is mildly elevated at 2 V at 0.4 ms. previous test on 10/04/2021 showed it was 1.9 V. Since then she has done well echocardiogram that was recently done on 03/29/2022 shows ejection fraction of 65% with a severely dilated left atrium and right atrium with aortic valve velocity is suggestive of moderate aortic stenosis with a valve area of 1.2 cm??? that is evidence of moderate to severe MR and moderate mild AR with mild to moderate TR Prior HPI: 85-year-old lady who had a device placement on 08/19/2012 was subsequently noted to have atrial flutter. She was recently diagnosed with COVID and is feels very fatigued and tired but states that she is not markedly short of breath. Patient was previously cardioverted by Dr. Rose on 01/12/2016. PMHx: PAF, mitral valve regurg, , PPM, HTN. Device check 11/23/2020: 1073 mode switches consistent with a.flutter Patient has got a [employer] dual-chamber pacemaker implanted on 08/19/2012 with thresholds that are in normal range. She is noted to have atrial flutter with a cycle length of nearly 440 ms. The ventricular rate is controlled during this time. EKG 01/21/2018 shows atrial pacing and [place] conduction 01/12/2017 shows AV sequential pacing 01/12/2016 shows again AV sequential pacing Echocardiogram from 10/21/2019 shows ejection fraction of 75% with a severely dilated left atrium and a moderately dilated right atrium with mild aortic valve regurgitation and mild aortic valve stenosis She did not get her amiodarone annual testing done but was recently seen at [facility] for a pelvic fracture, no chest xray was done. They did do blood work and she had normal liver, kidney and thyroid function. She has had a PFT done in 2020 which showed mild emphysema. She has not had an any respiratory issues in the last year. She states she had one incidence of syncope in october which was found to be related to hypoglycemia and she has not had any since. She states she has had infrequent palpitations since about 3 months ago with no other associated symptoms. She has device check soon, last device check did not show concerns for AT/AF although she was noted to have some in March of 2021. Past echos have shown moderate aortic valve stenosis and mild mitral valve regurgitation but she denies any symptoms of lightheadedness, dizziness, shortness of breath. No symptoms noted in past exams. Review of Systems Constitutional: Negative for malaise/fatigue. Eyes: Negative for blurred vision. Cardiovascular: Positive for palpitations (infrequent but has had some since last device check) and syncope (one episode related to hypoglycemia). Negative for chest pain, dyspnea on exertion and leg swelling. All other systems reviewed and are negative. PMH: History reviewed. No pertinent past medical history. Patient Active Problem List Diagnosis Persistent atrial fibrillation (CMS/HCC) Nonrheumatic aortic valve stenosis Nonrheumatic mitral valve regurgitation Cardiac pacemaker in situ Sinus node dysfunction (CMS/HCC) Essential hypertension Acute cystitis without hematuria Acute kidney failure, unspecified (CMS/HCC) Anemia, unspecified Anxiety disorder, unspecified Aortic valve disorder Arthropathy, unspecified Other asthma Chronic kidney disease, stage 2 (mild) Chronic systolic (congestive) heart failure (CMS/HCC) Cognitive communication deficit Difficulty in walking, not elsewhere classified Dyspnea on exertion Fatigue Gastro-esophageal reflux disease without esophagitis Major depressive disorder, recurrent, unspecified (CMS/HCC) Intestinal bypass and anastomosis status Insomnia, unspecified Hypothyroidism, unspecified Hyperlipidemia, unspecified HX: residential anticoagulant use History of malignant neoplasm of uterine body History of falling Personal history of other diseases of the respiratory system Palpitations Other abnormalities of gait and mobility Nevus Muscle weakness (generalized) Moderate protein-calorie malnutrition (CMS/HCC) Malignant melanoma of forehead (CMS/HCC) Type 2 diabetes mellitus with diabetic chronic kidney disease (CMS/HCC) Syncope and collapse Rheumatoid arthritis (CMS/HCC) Prophylactic use of selective estrogen receptor modulators (SERMs) Pneumonia, unspecified organism Personal history of urinary (tract) infections Ventri (more content not included)... [facility] 07-02-2022 Note PROCEDURE: US THYROI D DATE: 07/01/2022 12:02 PM CDT COMPARISONS: None. CLINICAL INDICATION: 86 years Female Dysphonia FINDINGS: The right lobe of the thyroid gland measures 4.1 x 1.3 x 1.2 cm. The left lobe of the thyroid gland measures 3.1 x 1.3 x 1.2 cm. The isthmus measures 2 mm in thickness. There are 4 nonspecific circumscribed hypoechoic nodular areas of the thyroid. In the right mid thyroid nodule appears cystic measuring 6 mm. In the inferior right lobe nodule appears hypoechoic measuring 8 mm In the mid right lobe the nodule measures 6 mm and appears cystic In the mid lateral left lobe the nodule measures 2 mm and the is hypoechoic and possibly cystic. IMPRESSION: All of these nodules are nonspecific. All of these likely represent TR3 or TR2 lesions and are likely of no clinical significance. No further follow-up recommended. ACR TI-RADS (Thyroid Imaging and Reporting Data System) recommendations: TR3, mildly suspicious (3 points) - FNA if greater than or equal to 2.5cm, follow-up if 1.5-2.4 cm in 1, 3 and 5 years TR2, not suspicious (2 points) and TR1, benign (0 points) - No FNA or follow-up Electronically authenticated by: JUAN F ENCARNACION Date: 2022-07-02 08:56 [facility] 05-16-2022 Note to schedule the H&P with you yeah but if they can do it I want to make sure that [place] Electrophysiology Note [facility] Reason for visit: 6 month follow up HPI: Patient underwent generator change and pocket revision on 08/30/2021. she is active with no limitations no syncope and no other issues no chest pain. Device check that was done on 05/16/2022 shows normal device function however the RV threshold is mildly elevated at 2 V at 0.4 ms. previous test on 10/04/2021 showed it was 1.9 V. Since then she has done well echocardiogram that was recently done on 03/29/2022 shows ejection fraction of 65% with a severely dilated left atrium and right atrium with aortic valve velocity is suggestive of moderate aortic stenosis with a valve area of 1.2 cm??? that is evidence of moderate to severe MR and moderate mild AR with mild to moderate TR Prior HPI: 85-year-old lady who had a device placement on 08/19/2012 was subsequently noted to have atrial flutter. She was recently diagnosed with COVID and is feels very fatigued and tired but states that she is not markedly short of breath. Patient was previously cardioverted by Dr. Rose on 01/12/2016. PMHx: PAF, mitral valve regurg, , PPM, HTN. Device check 11/23/2020: 1073 mode switches consistent with a.flutter Patient has got a [employer] dual-chamber pacemaker implanted on 08/19/2012 with thresholds that are in normal range. She is noted to have atrial flutter with a cycle length of nearly 440 ms. The ventricular rate is controlled during this time. EKG 01/21/2018 shows atrial pacing and [place] conduction 01/12/2017 shows AV sequential pacing 01/12/2016 shows again AV sequential pacing Echocardiogram from 10/21/2019 shows ejection fraction of 75% with a severely dilated left atrium and a moderately dilated right atrium with mild aortic valve regurgitation and mild aortic valve stenosis She did not get her amiodarone annual testing done but was recently seen at [facility] for a pelvic fracture, no chest xray was done. They did do blood work and she had normal liver, kidney and thyroid function. She has had a PFT done in 2020 which showed mild emphysema. She has not had an any respiratory issues in the last year. She states she had one incidence of syncope in october which was found to be related to hypoglycemia and she has not had any since. She states she has had infrequent palpitations since about 3 months ago with no other associated symptoms. She has device check soon, last device check did not show concerns for AT/AF although she was noted to have some in March of 2021. Past echos have shown moderate aortic valve stenosis and mild mitral valve regurgitation but she denies any symptoms of lightheadedness, dizziness, shortness of breath. No symptoms noted in past exams. Review of Systems Constitutional: Negative for malaise/fatigue. Eyes: Negative for blurred vision. Cardiovascular: Positive for palpitations (infrequent but has had some since last device check) and syncope (one episode related to hypoglycemia). Negative for chest pain, dyspnea on exertion and leg swelling. All other systems reviewed and are negative. PMH: History reviewed. No pertinent past medical history. Patient Active Problem List Diagnosis Persistent atrial fibrillation (CMS/HCC) Nonrheumatic aortic valve stenosis Nonrheumatic mitral valve regurgitation Cardiac pacemaker in situ Sinus node dysfunction (CMS/HCC) Essential hypertension PSH: History reviewed. No pertinent surgical history. SH: Social Determinants of Health Tobacco Use: Low Risk Smoking Tobacco Use: Never Smokeless Tobacco Use: Never Passive Exposure: Not on file Alcohol Use: Not on file Financial Resource Strain: Not on file Food Insecurity: Not on file Transportation Needs: Not on file Physical Activity: Not on file Stress: Not on file Social Connections: Not on file Intimate Partner Violence: Not on file Depression: Not on file Housing Stability: Not on file Allergies: Allergies Allergen Reactions Penicillins Other, Anaphylaxis and Hives Sulfa (Sulfonamide Antibiotics) Hives and Other Weight: 65.6kg Meds: Current Outpatient Medications on File Prior to Visit Medication Sig Dispense Refill alendronate (Fosamax) 70 mg tablet alendronate 70 mg tablet TAKE 1 TABLET BY MOUTH ONE TIME PER WEEK amiodarone (Pacerone) 200 mg tablet TAKE 1 TABLET BY MOUTH EVERY DAY 90 tablet 3 atorvastatin (Lipitor) 40 mg tablet Take 1 tablet by mouth in the morning. dilTIAZem CD (Cardizem CD) 240 mg 24 hr capsule Take by mouth in the morning. doxepin (SINEquan) 10 mg capsule TAKE 1 CAPSULE BY MOUTH AT BEDTIME NEEDED FOR ANXIETY escitalopram (Lexapro) 20 mg tablet Take 20 mg by mouth in the morning. ferrous sulfate 325 (65 Fe) MG tablet ferrous sulfate 325 mg (65 mg iron) tablet TAKE 1 TABLET BY MOUTH TWICE A DAY furosemide (Lasix) 20 mg tablet Take 20 mg by (more content not included)... [facility] 03-23-2022 Note chest [facility] 03-15-2022 Note -mild on last echo, no murmur associated heard, will follow up with echo [facility] 03-15-2022 Note Hypertension is stab le -continue cardizem, lasix [facility] 03-15-2022 Note -on amiodarone, has had recent labs done when admitted for pelvic fracture -no chest xray done, will order for annual amiodarone work up -she has had a few instances of palpitations, will follow up with device check to assess for any AF/AT burden -continue amiodarone, cardizem, warfarin [facility] 03-15-2022 Note -hx moderate stenosi s, grade II aortic murmer, has not been documented before and patient was unaware of having a murmur -she is asymptomatic, had 1 episode of syncope in october which she attributed to hypoglycemia, no events since -will get echo prior to follow up to assess severity or changes of stenosis, last echo 2019 [facility] 03-15-2022 Note -recent device check showed no AT/AF -will have device checked in April, will assess for any arrhythmias, she will follow up with Dr. Morales at that time [facility] 03-15-2022 Note [place] Cardiology Note [facility] Reason for visit: 6 month follow up HPI: Gemma Lewis is a 86 y.o. year old with past medical history of sick sinus s/p PPM, persistent a-fib, aortic valve stenosis, mitral valve regurgitation, hypertension is here for 6 month follow up. She did not get her amiodarone annual testing done but was recently seen at [facility] for a pelvic fracture, no chest xray was done. They did do blood work and she had normal liver, kidney and thyroid function. She has had a PFT done in 2020 which showed mild emphysema. She has not had an any respiratory issues in the last year. She states she had one incidence of syncope in october which was found to be related to hypoglycemia and she has not had any since. She states she has had infrequent palpitations since about 3 months ago with no other associated symptoms. She has device check soon, last device check did not show concerns for AT/AF although she was noted to have some in March of 2021. Past echos have shown moderate aortic valve stenosis and mild mitral valve regurgitation but she denies any symptoms of lightheadedness, dizziness, shortness of breath. No symptoms noted in past exams. Review of Systems Constitutional: Negative for malaise/fatigue. Eyes: Negative for blurred vision. Cardiovascular: Positive for palpitations (infrequent but has had some since last device check) and syncope (one episode related to hypoglycemia). Negative for chest pain, dyspnea on exertion and leg swelling. All other systems reviewed and are negative. Previous HPI per Andrew 07/30/2021: cc;Device at [facility] Patient is accompanied by her ?grand daughter. Device check that was done on 08/02/2021 shows that her episodes of atrial tach had suddenly stopped in March 2021. She states that she feels lightheaded when she tries to get up from sitting position suggestive of orthostatic changes. Once she studies herself she feels okay. Prior HPI: 85-year-old lady who had a device placement on 08/19/2012 was subsequently noted to have atrial flutter. She was recently diagnosed with COVID and is feels very fatigued and tired but states that she is not markedly short of breath. Walking with a cane - weaker with walking - no current issues with falling. She notes palpitations, occurring about once a week. Lasts for a few seconds and then resolves. Denies CP, dyspnea, orthopnea, PND, LE edema, dizziness/LH, bleeding issues, syncope. Daughter accompanied her today. Patient was previously cardioverted by Dr. Rose on 01/12/2016. PMHx: PAF, mitral valve regurg, , PPM, HTN. Device check 11/23/2020: 1073 mode switches consistent with a.flutter Patient has got a [employer] dual-chamber pacemaker implanted on 08/19/2012 with thresholds that are in normal range. She is noted to have atrial flutter with a cycle length of nearly 440 ms. The ventricular rate is controlled during this time. EKG 01/21/2018 shows atrial pacing and [place] conduction 01/12/2017 shows AV sequential pacing 01/12/2016 shows again AV sequential pacing Echocardiogram from 10/21/2019 shows ejection fraction of 75% with a severely dilated left atrium and a moderately dilated right atrium with mild aortic valve regurgitation and mild aortic valve stenosis PMH: History reviewed. No pertinent past medical history. Patient Active Problem List Diagnosis Persistent atrial fibrillation (CMS/HCC) Nonrheumatic aortic valve stenosis Nonrheumatic mitral valve regurgitation Cardiac pacemaker in situ Sinus node dysfunction (CMS/HCC) Essential hypertension PSH: History reviewed. No pertinent surgical history. SH: Social Determinants of Health Tobacco Use: Not on file Alcohol Use: Not on file Financial Resource Strain: Not on file Food Insecurity: Not on file Transportation Needs: Not on file Physical Activity: Not on file Stress: Not on file Social Connections: Not on file Intimate Partner Violence: Not on file Depression: Not on file Housing Stability: Not on file Allergies: Allergies Allergen Reactions Penicillins Other, Anaphylaxis and Hives Sulfa (Sulfonamide Antibiotics) Hives and Other Weight: 63.5kg Meds: Current Outpatient Medications on File Prior to Visit Medication Sig Dispense Refill alendronate (Fosamax) 70 mg tablet alendronate 70 mg tablet TAKE 1 TABLET BY MOUTH ONE TIME PER WEEK amiodarone (Pacerone) 200 mg tablet Take 1 tablet by mouth in the morning. atorvastatin (Lipitor) 40 mg tablet Take 1 tablet by mouth in the morning. dilTIAZem CD (Cardizem CD) 240 mg 24 hr capsule Take by mouth in the morning. doxepin (SINEquan) 10 mg capsule TAKE 1 CAPSULE BY MOUTH AT BEDTIME NEEDED FOR ANXIETY escitalopram (Lexapro) 20 mg tablet Take 20 mg by mouth in the morning. ferrous sulfate 325 (65 Fe) MG tablet ferrous sulfate 325 mg (65 mg iron) tablet TAKE 1 TABLET BY MOUTH TWICE A DAY furosemide (Lasix) 20 mg tablet T (more content not included)... [facility] 03-15-2022 Note Pt feels well does h ave palpitations but not often Review of Systems Cardiovascular: Positive for palpitations. [facility] 09-13-2021 Note PROCEDURE: XR HIP LT 2 3V W PELVIS COMPARISON: 08/19/2019 HISTORY: History of fall FINDINGS: BONES:Contour deformity of the left superior pubic ramus suspicious for a fracture. No definite hip fracture. Moderate bilateral hip osteoarthritis. Moderate degenerative changes of the spine. SOFT TISSUES:Negative. No visible soft tissue swelling. EFFUSION:None visible. OTHER: Scattered calcification IMPRESSION: Suspected fracture of the left superior pubic ramus. No additional ring fracture is observed. CT scan pelvis is recommended for further evaluation Electronically authenticated by: JUAN JOSÉ CHENG Date: 2021-09-13 09:15 [facility] Evaluation + Plan note Future Appointments Appointment Date:11/22/2022 03:20:00 PM Scheduled Provider:Tom THOMPSON MD Location:[facility] Appointment Type: Procedure 30 [facility] [place] Evaluation + Plan note Future Appointments Appointment Date:12/05/2022 02:40:00 PM Scheduled Provider:Tom THOMPSON MD Location:[facility] Appointment Type: Established 15 General [facility] [place] Evaluation note No assessment inform ation available [facility] Work Phone: Evaluation note Diagnosis Atrial fibrillation, unspecified type (HCC)- Primary documented in this encounter [facility]* Diagnosis Atrial fibrillation, unspecified type (HCC)- Primary documented in this encounter [facility]* Diagnosis Atrial fibrillation, unspecified type (HCC)- Primary documented in this encounter [facility] Narrative No data available for this section [facility] Discharge instructions No data available for this section [facility] [place] Progress note No data available for this section General [facility] [place] Summary Purpose Family History No Family History Records FoundNo Family History Records FoundNo Family History Records FoundNo Family History Records FoundNo Family History Records FoundNo Family History Records FoundNo Family History Records FoundNo Family History Records FoundNo Family History Records FoundNo Family History Records Found Advance Directives No Advanced Directives Records Found Advance Directive Response Recorded Date/ Time Advance Directives No February 19, 2023 3:01pm Chief Complaint and Reason for Visit Chief Complaint afib Additional Source Comments INFORMATION SOURCE (unrecogn ized section and content) DATE CREATED AUTHOR 11/28/2018 [facility] DATE CREATED AUTHOR AUTHOR'S ORGANIZ ATION 09/01/2021 [facility] DATE CREATED AUTHOR AUTHOR'S ORGANIZ ATION 08/25/2022 [facility] DATE CREATED AUTHOR AUTHOR'S ORGANIZ ATION 11/01/2022 [facility] DATE CREATED AUTHOR AUTHOR'S ORGANIZ ATION 12/06/2022 [facility] DATE CREATED AUTHOR AUTHOR'S ORGANIZ ATION 03/03/2023 [facility] DATE CREATED AUTHOR AUTHOR'S ORGANIZ ATION 03/09/2023 [facility] DATE CREATED AUTHOR AUTHOR'S ORGANIZ ATION 07/21/2023 [facility] DATE CREATED AUTHOR AUTHOR'S ORGANIZ ATION 07/30/2023 [facility] DATE CREATED AUTHOR AUTHOR'S ORGANIZ ATION 08/25/2023 [facility] Patient Care team informatio n (unrecognized section and content) Team Status: Inactive Member Role Status Dates Colette Méndez MD Attending Provider Active [place] Relationship Specialty Start Date End Date Colette Méndez MD [facility] [phone] PCP - General 07/22/12 [facility] Cutter Relationship Specialty Start Date End Date Colette Méndez MD [address] [place] [id number] PCP - General 07/22/12 Greens Cutter Relationship Specialty Start Date End Date Colette Méndez MD [address] [place] [id number] PCP - General 07/22/12 Goals (unrecognized section and content) Goals may be documented in a n alternate section Reason for Visit (unrecogniz ed section and content) Specialty Diagnoses / Procedures Referred By Contac t Referred To Contact Pharmacy Diagnoses Atrial fibrillation (HCC) Colette Méndez MD [address] [place] [address] [facility] [address] [place] [address] Referral ID Status Reason Start Date Expiration Date V isits Requested Visits Authorized [id number] Authorized 03/22/2023 03/22/2024 99 99 Referral ID Status Reason Start Date Expiration Date V isits Requested Visits Authorized [id number] Pending Review 03/22/2023 03/22/2024 99 99 FOR RECORDS PERTAINING TO PATIENTS WHO ARE OR HAVE BEEN ENROLLED IN A CHEMICAL DEPENDENCY/SUBSTANCEABUSE PROGRAM, SOME INFORMATION MAY BE OMITTED. This clinical summary was aggregated from multiple sources. Caution should be exercised in using it in the provision of clinical care. This summary normalizes information from multiple sources, and as a consequence, information in this document may materially change the coding, format and clinical context of patient data. In addition, data may be omitted in some cases. CLINICAL DECISIONS SHOULD BE BASED ON THE PRIMARY CLINICAL RECORDS. [facility]. provides no warranty or guarantee of the accuracy or completeness of information in this document.
[2023-08-26] MEDS: FENTANYL CITRATE/PF 100 MCG/2 ML VIAL 50 MCG IV (15:18)
[2023-08-26] MEDS: 0.9 % SODIUM CHLORIDE 1,000 ML 100 ML IV (15:18)
[2023-08-26] MEDS: ONDANSETRON PF 4 MG/2 ML VIAL IV (15:18)
[2023-08-26 15:45] LABS: Basophils Absolute Auto 0.1 10^3/uL (0.0-0.1); Basophils Percent Auto 0.7 % (0.2-2.0); Eosinophils Absolute Auto 1.1 10^3/uL (0.0-0.7); Eosinophils Percent Auto 8.3 % (0.9-7.0); Hematocrit 35.9 % (36.0-48.0); Hemoglobin 10.5 g/dL (12.0-16.0); Immature Granulocytes Abs Auto 0.23 10^3/uL (0.00-0.03); Immature Granulocytes Pct Auto 1.7 % (0.0-0.5); Mean Corpuscular HGB Conc 29.2 g/dL (29.9-35.2); Mean Corpuscular Hemoglobin 29.7 pg (26.7-34.0); Mean Corpuscular Volume 101.7 fL (81.0-99.0); Mean Platelet Volume 10.9 fL (9.5-13.5); Monocytes Absolute Auto 1.2 10^3/uL (0.3-0.8); Monocytes Percent Auto 8.4 % (1.7-12.0); Neutrophils Absolute Auto 7.1 10^3/uL (1.4-6.5); Neutrophils Percent Auto 51.9 % (43.0-75.0); Platelet Count 334 10^3/uL (150-450); Red Blood Count 3.53 10^6/uL (4.20-5.40); Red Cell Distribution Width 17.6 % (11.0-15.0); White Blood Count 13.8 10^3/uL (4.0-11.0)
[2023-08-26 16:06] LABS: Alanine Aminotransferase 20 U/L (14-59); Albumin Globulin Ratio 0.6; Albumin Level 2.7 g/dL (3.4-5.0); Alkaline Phosphatase 120 U/L (46-116); Aspartate Amino Transferase 22 U/L (15-37); BUN Creatinine Ratio 24.5; Bilirubin Total 0.3 mg/dL (0.2-1.0); Carbon Dioxide 23.4 mmol/L (21.0-32.0); Chloride 106 mmol/L (98-107); Estimated GFR (African America 24 (>=60); Estimated GFR (Non-African Ame 20 (>=60); Globulin 4.7 g/dL; Glucose 126 mg/dL (74-106); Potassium 5.4 mmol/L (3.5-5.1); Sodium 138 mmol/L (136-145); Total Protein 7.4 g/dL (6.4-8.2)
[2023-08-26 16:07] LABS: INR 1.06; Prothrombin Time 11.2 sec (9.0-11.6)
[2023-08-26 16:08] LABS: Lactate/Lactic Acid 1.1 mmol/L (0.4-2.0)
--- NOTE | 2023-08-26 16:12 | US_ITS ---
The [address] [address] Patient Name: ASTON ZULUAGA MRN: [id number] date: 1935 Sex: F Assigned Patient Location: ED.MAIN Current Patient Location: ER Accession/Order Number: [id number] Exam Date: 08/26/2023 16:15 Report Date: 08/26/2023 18:58 At the request of: CHRISTINE GRIER Procedure: US arterial duplex LE LT EXAMINATION: US arterial duplex LE LT REASON FOR EXAM: Arterial occlusion, wound on left foot. FINDINGS: Triphasic waveforms are seen from the level of the left external iliac artery through the distal superficial femoral artery. Waveforms in the popliteal artery and in the infrapopliteal circulation are monophasic. Monophasic flow is seen into the distal posterior tibial artery and into the distal anterior tibial artery. The peroneal artery is not visualized. US/US arterial duplex LE LT IMPRESSION: 1. No demonstrated arterial occlusion in the left lower extremity. 2. Triphasic waveforms without significant increase or doubling of velocities from the left external iliac artery through the popliteal fossa. 3. Monophasic waveforms are seen in the popliteal and infrapopliteal vessels although the anterior tibial and posterior tibial arteries are visible distally to the level of the ankle. Electronically authenticated by: ROBERT NICOLE Date: 08/26/2023 18:58
[2023-08-26 16:17] LABS: PCO2 VBG 24.5 mmHg (40.0-52.0); pH VBG 7.443 (7.330-7.430)
[2023-08-26 16:20] LABS: PROCALCITONIN <0.05 ng/mL (0.00-0.50)
[2023-08-26] MEDS: CLINDAMYCIN PHOSPHATE/D5W 600 MG/50 ML PIGGYBACK 100 MG IV (17:58)
[2023-08-26] MEDS: DOXYCYCLINE HYCLATE 100 MG in 0.9 % SODIUM CHLORIDE 100 ML IV (18:28)
[2023-08-26] MEDS: OXYCODONE HCL/ACETAMINOPHEN 5MG/325MG 1 TAB PO (19:39)
--- OUTSIDE RECORDS SUMMARY | 2023-08-26 20:33 | XMS_ITS | CCD ---
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 Phone PROVIDER, UNKNOWN Admitting Unavailable [...] Referring Unavailable Matt Méndezlas Primary Care Physician [phone] Tom THOMPSON Attending Unavailable Tom THOMPSON Attending Unavailable Tom THOMPSON Attending Unavailable MD Colette Méndez Attending Provider [phone] Colette Méndez Attending Unavailable Dev, Colette M Admitting Unavailable Michaely Colette M Attending Unavailable Michaely, Colette M Admitting Unavailable ABDI ROYAL Attending Unavailable Colette Méndez MD Primary Care Provider [phone] HOY, COLETTE M Referring Unavailable HOY, COLETTE [...] due to serum (disorder), Urticaria (disorder) [facility] Sulfonamides (Antibiotic); Translations: [SULFA ANTIBIOTICS] Propensity to adverse reactions to drug (disorder) 01-05-20 17 [facility] Repository (4 sources) Sulfonamides (Antibiotic); Translations: [SULFA (SULFONAMIDE ANTIBIOTICS)] Drug allergy (disorder) 05-14-19 13 [facility] Repository (2 sources) cefTRIAXone Drug Allergy 05-17-19 20 [facility] Repository (1 source) cefTRIAXone; Translations: [CEFTRIAXONE] Drug Allergy 09-01-19 [facility] Repository (3 sources) Cephalexin; Translations: [CEPHALEXIN] Drug Allergy 09-01-19 Anaphylaxis (disorder) [facility] Repository (4 sources) metroNIDAZOLE; Translations: [METRONIDAZOLE] Drug Allergy 09-01-19 Weal (disorder) [facility] Repository (1 source) Sulfamethoxazole / Trimethoprim; Translations: [SULFAMETHOXAZOLE-T RIMETHOPRIM] Drug Allergy 11-01-19 [facility] Repository (3 sources) Sulfonamides (Antibiotic); Translations: [sulfa drugs] Drug allergy 01-04-20 17 Urticaria (disorder) [facility] (1 source) Cephalexin; Translations: [Keflex] Drug Allergy [facility] Repository Medications Current Medications Medication Drug Class(es) [...] Status: Ordered Cranberry-Vitamin C (CRANBERRY CONCENTRATE/VITAMINC ) 51788-894 MG CAPS (2 sources) take 1 tablet by mouth once daily Cranberry-Vitamin C (CRANBERRY CONCENTRATE/VITAMIN C) 35570-789 MG CAPS Take 1 tablet by mouth [...] Ordered take 1 tablet by mouth once crhissy y liothyronine (CYTOMEL) 5 MCG tablet Take 1 tablet by mouth daily 0 Active 24 hr memantine hydrochloride 28 mg extended release oral capsule (2 sources) S-xddrue-K-aspartate Receptor Antagonist Start: 11-08-2022 take 1 capsule [...] by mouth See Admin Instructions Dosed by [facility] Anticoagulation Service: 1.5 mg Wed/Sat and 3 [...] osteoporosis 11-08-2022 Chronic Other aftercare (5 sources) intermediate (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; Translations: [REGISTERED ASSOCIATE CURRNT USE ANTICOAGULANTS] Onset: 3 Episodic Other aftercare (5 sources) Encounter for therapeutic drug level monitoring; Translations: [ENC THERAPEUTC DRUG LEVL MONITORING] Onset: 3 Episodic Other aftercare (1 source) 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; Translations: [[facility] CURRENT USE OF INSULIN] Onset: 3 Episodic Other aftercare (5 sources) Other group home (current) drug therapy; Translations: [OTH [facility] CURRENT DRUG THERAPY] Onset: 2 Episodic Other aftercare (1 source) intermediate (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 oral hypoglycemic drugs; Translations: [[facility] USE ORAL HYPOGLYCEMIC DX] Onset: 3 Episodic [...] Anion gap [Moles/Vol] 9 mmol/L Normal 9-16 [facility] Comment on above: Performed By: #### B MPX #### [address] [address] Theater Set Production Designer: Alexey Green MD Calcium [Mass/Vol] 8.1 mg/dL Low 8.6-10.4 [facility] Comment on above: Performed By: #### B MPX #### [address] [address] Theater Set Production Designer: Alexey Green MD Chloride [Moles/Vol] 113 mmol/L High 98-107 [facility] Comment on above: Performed By: #### B MPX #### [address] [address] Theater Set Production Designer: Alexey Green MD CO2 [Moles/Vol] 18 mmol/L Low 20-31 [facility] Comment on above: Performed By: #### B MPX #### [address] [address] Theater Set Production Designer: Alexey Green MD Creatinine [Mass/Vol] 2.2 mg/dL High 0.50-0.90 [facility] Comment on above: Performed By: #### B MPX #### [address] [address] Theater Set Production Designer: Alexey Green MD GFR/1.73 sq M.predicted among non-blacks MDRD (S/P/Bld) [Vol rate/Area] 21 mL/min/{1.73_m2} Low >60 [facility] Comment on above: Result Comment: These results [...] secretion. Performed By: #### B MPX #### [facility] [employer] [address] [place] [address] Theater Set Production Designer: Alexey Green MD Glucose [Mass/Vol] 157 mg/dL High 74-99 [facility] Comment on above: Performed By: #### B MPX #### [address] [address] Theater Set Production Designer: Alexey Green MD Potassium [Moles/Vol] 4.8 mmol/L Normal 3.7-5.3 [facility] Comment on above: Performed By: #### B MPX #### [address] [address] Theater Set Production Designer: Alexey Green MD Sodium [Moles/Vol] 140 mmol/L Normal 136-145 [facility] Comment on above: Performed By: #### B MPX #### [address] [address] Theater Set Production Designer: Alexey Green MD Urea nitrogen [Mass/Vol] 42 mg/dL High 8-23 [facility] Comment on above: Performed By: #### B MPX #### [address] [address] Theater Set Production Designer: Alexey Green MD Anion gap [Moles/Vol] 9 mmol/L Normal 9-16 [facility] Comment on above: Performed By: #### C DP, BMP #### [facility] [employer] [address] [place] [address] Theater Set Production Designer: Alexey Green MD Calcium [Mass/Vol] 8.1 mg/dL Low 8.6-10.4 [facility] Comment on above: Performed By: #### C DP, BMP #### [address] [address] Theater Set Production Designer: Alexey Green MD Chloride [Moles/Vol] 113 mmol/L High 98-107 [facility] Comment on above: Performed By: #### C DP, BMP #### [address] [address] Theater Set Production Designer: Alexey Green MD CO2 [Moles/Vol] 18 mmol/L Low 20-31 [facility] Comment on above: Performed By: #### C DP, BMP #### [facility] [employer] [address] [place] [address] Theater Set Production Designer: Alexey Green MD Creatinine [Mass/Vol] 2.2 mg/dL High 0.50-0.90 [facility] Comment on above: Performed By: #### C DP, BMP #### [address] [address] Theater Set Production Designer: Alexey Green MD GFR/1.73 sq M.predicted among non-blacks MDRD (S/P/Bld) [Vol rate/Area] 21 mL/min/{1.73_m2} Low >60 [facility] Comment on above: Result Comment: These results [...] Performed By: #### C DP, BMP #### [facility] [employer] [address] [place] [address] [place] [address] Theater Set Production Designer: Alexey Green MD Glucose [Mass/Vol] 157 mg/dL High 74-99 [facility] Comment on above: Performed By: #### C DP, BMP #### [facility] [employer] [address] [place] [address] Theater Set Production Designer: Alexey Green MD Potassium [Moles/Vol] 4.8 mmol/L Normal 3.7-5.3 [facility] Comment on above: Performed By: #### C DP, BMP #### [facility] [employer] [address] [place] [address] Theater Set Production Designer: Alexey Green MD Sodium [Moles/Vol] 140 mmol/L Normal 136-145 [facility] Comment on above: Performed By: #### C DP, BMP #### [facility] [employer] [address] [place] [address] Theater Set Production Designer: Alexey Green MD Urea nitrogen [Mass/Vol] 42 mg/dL High 8-23 [facility] Comment on above: Performed By: #### C DP, BMP #### [address] [address] Theater Set Production Designer: Alexey Green MD CBC with Diffon 07-30-2023 Abs. Basophil 0.00 k/uL Normal 0.00-0.20 [facility] Comment on above: Performed By: #### B MPX #### [facility] [employer] [address] [place] [address] Theater Set Production Designer: Alexey Green MD Abs.Imm.Granulocyte 0.11 k/uL Normal 0.00-0.30 [facility] Comment on above: Performed By: #### B MPX #### [facility] [employer] [address] [place] [address] Theater Set Production Designer: Alexey Green MD Abs.Neutrophil (Seg) 5.72 k/uL Normal 1.50-8.10 [facility] Comment on above: Performed By: #### B MPX #### [address] [address] Theater Set Production Designer: Alexey Green MD Basophils/100 WBC (Bld) 0 % Normal 0-2 [facility] Comment on above: Performed By: #### B MPX #### [address] [address] Theater Set Production Designer: Alexey Green MD Eosinophils (Bld) [#/Vol] 0.32 10*3/uL Normal 0.00-0.44 [facility] Comment on above: Performed By: #### B MPX #### [address] [address] Theater Set Production Designer: Alexey Green MD Eosinophils/100 WBC (Bld) 3 % Normal 1-4 [facility] Comment on above: Performed By: #### B MPX #### [address] [address] Theater Set Production Designer: Alexey Green MD Immature granulocytes/100 WBC (Bld) 1 % High 0 [facility] Comment on above: Performed By: #### B MPX #### [address] [address] Theater Set Production Designer: Alexey Green MD Lymphocytes (Bld) [#/Vol] 2.92 10*3/uL Normal 1.10-3.70 [facility] Comment on above: Performed By: #### B MPX #### [address] [address] Theater Set Production Designer: Alexey Green MD Lymphocytes/100 WBC (Bld) 27 % Normal 24-43 [facility] Comment on above: Performed By: #### B MPX #### [address] [address] Theater Set Production Designer: Alexey Green MD Monocytes (Bld) [#/Vol] 1.73 10*3/uL High 0.10-1.20 [facility] Comment on above: Performed By: #### B MPX #### [address] [address] Theater Set Production Designer: Alexey Green MD Monocytes/100 WBC (Bld) 16 % High 3-12 [facility] Comment on above: Performed By: #### B MPX #### [address] [address] Theater Set Production Designer: Alexey Green MD Morphology Tito (Bld) [Interp] ANISOCYTOSIS PRESENT Normal [facility] Comment on above: Result Comment: MACR OCYTOSIS PRESENT Performed By: #### B MPX #### [address] [address] Theater Set Production Designer: Alexey Green MD Neutrophil (Seg) 53 % Normal 36-65 [facility] Comment on above: Performed By: #### B MPX #### [address] [address] Theater Set Production Designer: Alexey Green MD Erythrocyte distribution width (RBC) [Ratio] 17.7 % High 11.8-14.4 [facility] Comment on above: Performed By: #### B MPX #### [address] [address] Theater Set Production Designer: Alexey Green MD Hematocrit (Bld) [Volume fraction] 26.6 % Low 36.3-47.1 [facility] Comment on above: Performed By: #### B MPX #### [address] [address] Theater Set Production Designer: Alexey Green MD Hemoglobin (Bld) [Mass/Vol] 7.6 g/dL Low 11.9-15.1 [facility] Comment on above: Performed By: #### B MPX #### [place] [address] Theater Set Production Designer: Alexey Green MD MCH (RBC) [Entitic mass] 29.5 pg Normal 25.2-33.5 [facility] Comment on above: Performed By: #### B MPX #### [place] [address] Theater Set Production Designer: Alexey Green MD MCHC (RBC) [Mass/Vol] 28.6 g/dL Normal 28.4-34.8 [facility] Comment on above: Performed By: #### B MPX #### [place] [address] Theater Set Production Designer: Alexey Green MD MCV (RBC) [Entitic vol] 103.1 fL High 82.6-102.9 [facility] Comment on above: Performed By: #### B MPX #### [place] [address] Theater Set Production Designer: Alexey Green MD NRBC Automated 0.4 per 100 WBC High 0.0 [facility] Comment on above: Performed By: #### B MPX #### [place] [address] [employer] Set Production Designer: Alexey Green MD Platelet mean volume (Bld) [Entitic vol] 10.9 fL Normal 8.1-13.5 [facility] Comment on above: Performed By: #### B MPX #### [place] [address] [employer] Set Production Designer: Alexey Green MD Platelets (Bld) [#/Vol] 226 10*3/uL Normal 138-453 [facility] Comment on above: Performed By: #### B MPX #### [address] [address] Theater Set Production Designer: Alexey Green MD RBC (Bld) [#/Vol] 2.58 10*6/uL Low 3.95-5.11 [facility] Comment on above: Performed By: #### B MPX #### [address] [address] Theater Set Production Designer: Alexey Green MD WBC (Bld) [#/Vol] 10.8 10*3/uL Normal 3.5-11.3 [facility] Comment on above: Performed By: #### B MPX #### [address] [address] Theater Set Production Designer: Alexey Green MD Abs. Basophil 0.00 k/uL Normal 0.00-0.20 [facility] Comment on above: Performed By: #### C DP, BMP #### [address] [address] Theater Set Production Designer: Alexey Green MD Abs.Imm.Granulocyte 0.11 k/uL Normal 0.00-0.30 [facility] Comment on above: Performed By: #### C DP, BMP #### [address] [address] Theater Set Production Designer: Alexey Green MD Abs.Neutrophil (Seg) 5.72 k/uL Normal 1.50-8.10 [facility] Comment on above: Performed By: #### C DP, BMP #### [address] [address] Theater Set Production Designer: Alexey Green MD Basophils/100 WBC (Bld) 0 % Normal 0-2 [facility] Comment on above: Performed By: #### C DP, BMP #### [address] [address] Theater Set Production Designer: Alexey Green MD Eosinophils (Bld) [#/Vol] 0.32 10*3/uL Normal 0.00-0.44 [facility] Comment on above: Performed By: #### C DP, BMP #### [address] [address] Theater Set Production Designer: Alexey Green MD Eosinophils/100 WBC (Bld) 3 % Normal 1-4 [facility] Comment on above: Performed By: #### C DP, BMP #### [address] [address] Theater Set Production Designer: Alexey Green MD Immature granulocytes/100 WBC (Bld) 1 % High 0 [facility] Comment on above: Performed By: #### C DP, BMP #### [address] [address] Theater Set Production Designer: Alexey Green MD Lymphocytes (Bld) [#/Vol] 2.92 10*3/uL Normal 1.10-3.70 [facility] Comment on above: Performed By: #### C DP, BMP #### [address] [address] Theater Set Production Designer: Alexey Green MD Lymphocytes/100 WBC (Bld) 27 % Normal 24-43 [facility] Comment on above: Performed By: #### C DP, BMP #### [address] [address] Theater Set Production Designer: Alexey Green MD Monocytes (Bld) [#/Vol] 1.73 10*3/uL High 0.10-1.20 [facility] Comment on above: Performed By: #### C DP, BMP #### [address] [address] Theater Set Production Designer: Alexey Green MD Monocytes/100 WBC (Bld) 16 % High 3-12 [facility] Comment on above: Performed By: #### C DP, BMP #### [address] [address] Theater Set Production Designer: Alexey Green MD Morphology Tito (Bld) [Interp] ANISOCYTOSIS PRESENT Normal [facility] Comment on above: Result Comment: MACR OCYTOSIS PRESENT Performed By: #### C DP, BMP #### [address] [address] Theater Set Production Designer: Alexey Green MD Neutrophil (Seg) 53 % Normal 36-65 [facility] Comment on above: Performed By: #### C DP, BMP #### [facility] [employer] [address] [place] [address] Theater Set Production Designer: Alexey Green MD Erythrocyte distribution width (RBC) [Ratio] 17.7 % High 11.8-14.4 [facility] Comment on above: Performed By: #### C DP, BMP #### [address] [address] Theater Set Production Designer: Alexey Green MD Hematocrit (Bld) [Volume fraction] 26.6 % Low 36.3-47.1 [facility] Comment on above: Performed By: #### C DP, BMP #### [address] [address] Theater Set Production Designer: Alexey Green MD Hemoglobin (Bld) [Mass/Vol] 7.6 g/dL Low 11.9-15.1 [facility] Comment on above: Performed By: #### C DP, BMP #### [facility] [employer] [address] [place] [address] Theater Set Production Designer: Alexey Green MD MCH (RBC) [Entitic mass] 29.5 pg Normal 25.2-33.5 [facility] Comment on above: Performed By: #### C DP, BMP #### [address] [address] Theater Set Production Designer: Alexey Green MD MCHC (RBC) [Mass/Vol] 28.6 g/dL Normal 28.4-34.8 [facility] Comment on above: Performed By: #### C DP, BMP #### [address] [address] Theater Set Production Designer: Alexey Green MD MCV (RBC) [Entitic vol] 103.1 fL High 82.6-102.9 [facility] Comment on above: Performed By: #### C DP, BMP #### [address] [address] Theater Set Production Designer: Alexey Green MD NRBC Automated 0.4 per 100 WBC High 0.0 [facility] Comment on above: Performed By: #### C DP, BMP #### [address] [address] Theater Set Production Designer: Alexey Green MD Platelet mean volume (Bld) [Entitic vol] 10.9 fL Normal 8.1-13.5 [facility] Comment on above: Performed By: #### C DP, BMP #### [address] [address] Theater Set Production Designer: Alexey Green MD Platelets (Bld) [#/Vol] 226 10*3/uL Normal 138-453 [facility] Comment on above: Performed By: #### C DP, BMP #### [address] [address] Theater Set Production Designer: Alexey Green MD RBC (Bld) [#/Vol] 2.58 10*6/uL Low 3.95-5.11 [facility] Comment on above: Performed By: #### C DP, BMP #### [address] [address] Theater Set Production Designer: Alexey Green MD WBC (Bld) [#/Vol] 10.8 10*3/uL Normal 3.5-11.3 [facility] Comment on above: Performed By: #### C DP, BMP #### [address] [address] Theater Set Production Designer: Alexey Green MD Basic Metabolic Profon 07-28 Anion gap [Moles/Vol] 9 mmol/L Normal 9-16 [facility] Comment on above: Performed By: #### B MPX #### [address] [address] Theater Set Production Designer: Alexey Green MD Calcium [Mass/Vol] 8.1 mg/dL Low 8.6-10.4 [facility] Comment on above: Performed By: #### B MPX #### [address] [address] Theater Set Production Designer: Alexey Green MD Chloride [Moles/Vol] 112 mmol/L High 98-107 [facility] Comment on above: Performed By: #### B MPX #### [address] [address] Theater Set Production Designer: Alexey Green MD CO2 [Moles/Vol] 18 mmol/L Low 20-31 [facility] Comment on above: Performed By: #### B MPX #### [address] [address] Theater Set Production Designer: Alexey Green MD Creatinine [Mass/Vol] 2.5 mg/dL High 0.50-0.90 [facility] Comment on above: Performed By: #### B MPX #### [address] [address] Theater Set Production Designer: Alexey Green MD GFR/1.73 sq M.predicted among non-blacks MDRD (S/P/Bld) [Vol rate/Area] 18 mL/min/{1.73_m2} Low >60 [facility] Comment on above: Result Comment: These results [...] secretion. Performed By: #### B MPX #### [facility] [employer] [address] [place] [address] Theater Set Production Designer: Alexey Green MD Glucose [Mass/Vol] 109 mg/dL High 74-99 [facility] Comment on above: Performed By: #### B MPX #### [address] [address] Theater Set Production Designer: Alexey Green MD Potassium [Moles/Vol] 4.6 mmol/L Normal 3.7-5.3 [facility] Comment on above: Performed By: #### B MPX #### [address] [address] Theater Set Production Designer: Alexey Green MD Sodium [Moles/Vol] 139 mmol/L Normal 136-145 [facility] Comment on above: Performed By: #### B MPX #### [address] [address] Theater Set Production Designer: Alexey Green MD Urea nitrogen [Mass/Vol] 45 mg/dL High 8-23 [facility] Comment on above: Performed By: #### B MPX #### [facility] [employer] [address] [place] [address] Theater Set Production Designer: Alexey Green MD Anion gap [Moles/Vol] 9 mmol/L Normal 9-16 [facility] Comment on above: Performed By: #### C DP, BMP #### [address] [address] Theater Set Production Designer: Alexey Green MD Calcium [Mass/Vol] 8.1 mg/dL Low 8.6-10.4 [facility] Comment on above: Performed By: #### C DP, BMP #### [address] [address] Theater Set Production Designer: Alexey Green MD Chloride [Moles/Vol] 112 mmol/L High 98-107 [facility] Comment on above: Performed By: #### C DP, BMP #### [facility] [employer] [address] [place] [address] Theater Set Production Designer: Alexey Green MD CO2 [Moles/Vol] 18 mmol/L Low 20-31 [facility] Comment on above: Performed By: #### C DP, BMP #### [address] [address] Theater Set Production Designer: Alexey Green MD Creatinine [Mass/Vol] 2.5 mg/dL High 0.50-0.90 [facility] Comment on above: Performed By: #### C DP, BMP #### [address] [address] Theater Set Production Designer: Alexey Green MD GFR/1.73 sq M.predicted among non-blacks MDRD (S/P/Bld) [Vol rate/Area] 18 mL/min/{1.73_m2} Low >60 [facility] Comment on above: Result Comment: These results [...] Performed By: #### C DP, BMP #### [address] [address] Theater Set Production Designer: Alexey Green MD Glucose [Mass/Vol] 109 mg/dL High 74-99 [facility] Comment on above: Performed By: #### C DP, BMP #### [address] [address] Theater Set Production Designer: Alexey Green MD Potassium [Moles/Vol] 4.6 mmol/L Normal 3.7-5.3 [facility] Comment on above: Performed By: #### C DP, BMP #### [facility] [employer] [address] [place] [address] Theater Set Production Designer: Alexey Green MD Sodium [Moles/Vol] 139 mmol/L Normal 136-145 [facility] Comment on above: Performed By: #### C DP, BMP #### [address] [address] Theater Set Production Designer: Alexey Green MD Urea nitrogen [Mass/Vol] 45 mg/dL High 8-23 [facility] Comment on above: Performed By: #### C DP, BMP #### [address] [address] Theater Set Production Designer: Alexey Green MD CBC with Diffon 07-29-2023 Abs. Basophil 0.05 k/uL Normal 0.00-0.20 [facility] Comment on above: Performed By: #### B MPX #### [facility] [employer] [address] [place] [address] Theater Set Production Designer: Alexey Green MD Abs.Imm.Granulocyte 0.09 k/uL Normal 0.00-0.30 [facility] Comment on above: Performed By: #### B MPX #### [address] [address] Theater Set Production Designer: Alexey Green MD Abs.Neutrophil (Seg) 5.76 k/uL Normal 1.50-8.10 [facility] Comment on above: Performed By: #### B MPX #### [place] [address] Theater Set Production Designer: Alexey Green MD Basophils/100 WBC (Bld) 1 % Normal 0-2 [facility] Comment on above: Performed By: #### B MPX #### [place] [address] Theater Set Production Designer: Alexey Green MD Eosinophils (Bld) [#/Vol] 0.65 10*3/uL High 0.00-0.44 [facility] Comment on above: Performed By: #### B MPX #### [place] [address] Theater Set Production Designer: Alexey Green MD Eosinophils/100 WBC (Bld) 6 % High 1-4 [facility] Comment on above: Performed By: #### B MPX #### [place] [address] [employer] Set Production Designer: Alexey Green MD Erythrocyte distribution width (RBC) [Ratio] 17.6 % High 11.8-14.4 [facility] Comment on above: Performed By: #### B MPX #### [place] [address] Theater Set Production Designer: Alexey Green MD Hematocrit (Bld) [Volume fraction] 27.1 % Low 36.3-47.1 [facility] Comment on above: Performed By: #### B MPX #### [place] [address] Theater Set Production Designer: Alexey Green MD Hemoglobin (Bld) [Mass/Vol] 7.7 g/dL Low 11.9-15.1 [facility] Comment on above: Performed By: #### B MPX #### [address] [address] Theater Set Production Designer: Alexey Green MD Immature granulocytes/100 WBC (Bld) 1 % High 0 [facility] Comment on above: Performed By: #### B MPX #### [address] [address] Theater Set Production Designer: Alexey Green MD Lymphocytes (Bld) [#/Vol] 2.69 10*3/uL Normal 1.10-3.70 [facility] Comment on above: Performed By: #### B MPX #### [address] [address] Theater Set Production Designer: Alexey Green MD Lymphocytes/100 WBC (Bld) 25 % Normal 24-43 [facility] Comment on above: Performed By: #### B MPX #### [address] [address] Theater Set Production Designer: Alexey Green MD MCH (RBC) [Entitic mass] 29.5 pg Normal 25.2-33.5 [facility] Comment on above: Performed By: #### B MPX #### [address] [address] Theater Set Production Designer: Alexey Green MD MCHC (RBC) [Mass/Vol] 28.4 g/dL Normal 28.4-34.8 [facility] Comment on above: Performed By: #### B MPX #### [address] [address] Theater Set Production Designer: Alexey Green MD MCV (RBC) [Entitic vol] 103.8 fL High 82.6-102.9 [facility] Comment on above: Performed By: #### B MPX #### [address] [address] Theater Set Production Designer: Alexey Green MD Monocytes (Bld) [#/Vol] 1.34 10*3/uL High 0.10-1.20 [facility] Comment on above: Performed By: #### B MPX #### [address] [address] Theater Set Production Designer: Alexey Green MD Monocytes/100 WBC (Bld) 13 % High 3-12 [facility] Comment on above: Performed By: #### B MPX #### [address] [address] Theater Set Production Designer: Alexey Green MD Neutrophil (Seg) 54 % Normal 36-65 [facility] Comment on above: Performed By: #### B MPX #### [address] [address] Theater Set Production Designer: Alexey Green MD NRBC Automated 0.3 per 100 WBC High 0.0 [facility] Comment on above: Performed By: #### B MPX #### [address] [address] Theater Set Production Designer: Alexey Green MD Platelet mean volume (Bld) [Entitic vol] 11.4 fL Normal 8.1-13.5 [facility] Comment on above: Performed By: #### B MPX #### [address] [address] Theater Set Production Designer: Alexey Green MD Platelets (Bld) [#/Vol] 180 10*3/uL Normal 138-453 [facility] Comment on above: Performed By: #### B MPX #### [address] [address] Theater Set Production Designer: Alexey Green MD RBC (Bld) [#/Vol] 2.61 10*6/uL Low 3.95-5.11 [facility] Comment on above: Performed By: #### B MPX #### [address] [address] Theater Set Production Designer: Alexey Green MD RBC morphology finding Nom (Bld) ANISOCYTOSIS PRESENT Normal [facility] Comment on above: Result Comment: MACR OCYTOSIS PRESENT Performed By: #### B MPX #### [address] [address] Theater Set Production Designer: Alexey Green MD WBC (Bld) [#/Vol] 10.6 10*3/uL Normal 3.5-11.3 [facility] Comment on above: Performed By: #### B MPX #### [address] [address] Theater Set Production Designer: Alexey Green MD Abs. Basophil 0.05 k/uL Normal 0.00-0.20 [facility] Comment on above: Performed By: #### C DP, BMP #### [address] [address] Theater Set Production Designer: Alexey Green MD Abs.Imm.Granulocyte 0.09 k/uL Normal 0.00-0.30 [facility] Comment on above: Performed By: #### C DP, BMP #### [address] [address] Theater Set Production Designer: Alexey Green MD Abs.Neutrophil (Seg) 5.76 k/uL Normal 1.50-8.10 [facility] Comment on above: Performed By: #### C DP, BMP #### [address] [address] Theater Set Production Designer: Alexey Green MD Basophils/100 WBC (Bld) 1 % Normal 0-2 [facility] Comment on above: Performed By: #### C DP, BMP #### [address] [place] [address] [employer] Set Production Designer: Alexey Green MD Eosinophils (Bld) [#/Vol] 0.65 10*3/uL High 0.00-0.44 [facility] Comment on above: Performed By: #### C DP, BMP #### [address] [address] Theater Set Production Designer: Alexey Green MD Eosinophils/100 WBC (Bld) 6 % High 1-4 [facility] Comment on above: Performed By: #### C DP, BMP #### [address] [address] Theater Set Production Designer: Alexey Green MD Erythrocyte distribution width (RBC) [Ratio] 17.6 % High 11.8-14.4 [facility] Comment on above: Performed By: #### C DP, BMP #### [facility] [employer] [address] [place] [address] Theater Set Production Designer: Alexey Green MD Hematocrit (Bld) [Volume fraction] 27.1 % Low 36.3-47.1 [facility] Comment on above: Performed By: #### C DP, BMP #### [facility] [employer] [address] [place] [address] Theater Set Production Designer: Alexey Green MD Hemoglobin (Bld) [Mass/Vol] 7.7 g/dL Low 11.9-15.1 [facility] Comment on above: Performed By: #### C DP, BMP #### [facility] [employer] [address] [place] [address] Theater Set Production Designer: Alexey Green MD Immature granulocytes/100 WBC (Bld) 1 % High 0 [facility] Comment on above: Performed By: #### C DP, BMP #### [facility] [employer] [address] [place] [address] Theater Set Production Designer: Alexey Green MD Lymphocytes (Bld) [#/Vol] 2.69 10*3/uL Normal 1.10-3.70 [facility] Comment on above: Performed By: #### C DP, BMP #### [address] [address] Theater Set Production Designer: Alexey Green MD Lymphocytes/100 WBC (Bld) 25 % Normal 24-43 [facility] Comment on above: Performed By: #### C DP, BMP #### [address] [address] Theater Set Production Designer: Alexey Green MD MCH (RBC) [Entitic mass] 29.5 pg Normal 25.2-33.5 [facility] Comment on above: Performed By: #### C DP, BMP #### [place] [address] [employer] Set Production Designer: Alexey Green MD MCHC (RBC) [Mass/Vol] 28.4 g/dL Normal 28.4-34.8 [facility] Comment on above: Performed By: #### C DP, BMP #### [place] [address] [employer] Set Production Designer: Alexey Green MD MCV (RBC) [Entitic vol] 103.8 fL High 82.6-102.9 [facility] Comment on above: Performed By: #### C DP, BMP #### [place] [address] [employer] Set Production Designer: Alexey Green MD Monocytes (Bld) [#/Vol] 1.34 10*3/uL High 0.10-1.20 [facility] Comment on above: Performed By: #### C DP, BMP #### [address] [address] Theater Set Production Designer: Alexey Green MD Monocytes/100 WBC (Bld) 13 % High 3-12 [facility] Comment on above: Performed By: #### C DP, BMP #### [address] [address] Theater Set Production Designer: Alexey Green MD Neutrophil (Seg) 54 % Normal 36-65 [facility] Comment on above: Performed By: #### C DP, BMP #### [address] [address] Theater Set Production Designer: Alexey Green MD NRBC Automated 0.3 per 100 WBC High 0.0 [facility] Comment on above: Performed By: #### C DP, BMP #### [address] [address] Theater Set Production Designer: Alexey Green MD Platelet mean volume (Bld) [Entitic vol] 11.4 fL Normal 8.1-13.5 [facility] Comment on above: Performed By: #### C DP, BMP #### [address] [address] Theater Set Production Designer: Alexey Green MD Platelets (Bld) [#/Vol] 180 10*3/uL Normal 138-453 [facility] Comment on above: Performed By: #### C DP, BMP #### [address] [address] Theater Set Production Designer: Alexey Green MD RBC (Bld) [#/Vol] 2.61 10*6/uL Low 3.95-5.11 [facility] Comment on above: Performed By: #### C DP, BMP #### [address] [address] Theater Set Production Designer: Alexey Green MD RBC morphology finding Nom (Bld) ANISOCYTOSIS PRESENT Normal [facility] Comment on above: Result Comment: MACR OCYTOSIS PRESENT Performed By: #### C DP, BMP #### [address] [place] [address] [employer] Set Production Designer: Alexey Green MD WBC (Bld) [#/Vol] 10.6 10*3/uL Normal 3.5-11.3 [facility] Comment on above: Performed By: #### C DP, BMP #### [address] [address] Theater Set Production Designer: Alexey Green MD ROYCE Screenon 07-28-2023 ROYCE Screen Negative Normal NEG [facility] Comment on above: Performed By: #### U RNA, URTP, URCRE, UEOS #### [place] [address] [employer] Set Production Designer: Alexey Green MD Anti-dsDNA 1.1 IU/mL Normal <10.0 [facility] Comment on above: Result Comment: Reference Range: <10.0 Negative 10.0-15.0 Equivocal >15.0 Positive Performed By: #### U RNA, URTP, URCRE, UEOS #### [place] [address] [employer] Set Production Designer: Alexey Green MD BROOK Screen 0.1 U/mL Normal <0.7 [facility] Comment on above: Result Comment: Reference Range: <0.7 Negative 0.7-1.0 Equivocal >1.0 Positive BROOK Screen includes U1RNP,RNP70,Sm,Ro(SS-A),La(SS-B),CENP,Scl-70,Elva-1 Performed By: #### U RNA, URTP, URCRE, UEOS #### [place] [address] Theater Set Production Designer: Alexey Green MD ROYCE Screen Negative Normal NEG [facility] Comment on above: Performed By: #### U MICAO, UA #### [place] [id number] Theater Set Production Designer: Alexey Green MD Anti-dsDNA 1.1 IU/mL Normal <10.0 [facility] Comment on above: Result Comment: Reference Range: <10.0 Negative 10.0-15.0 Equivocal >15.0 Positive Performed By: #### ALYSSA SILVER #### [address] [id number] Theater Set Production Designer: Alexey Green MD BROOK Screen 0.1 U/mL Normal <0.7 [facility] Comment on above: Result Comment: Reference Range: <0.7 Negative 0.7-1.0 Equivocal >1.0 Positive BROOK Screen includes U1RNP,RNP70,Sm,Ro(SS-A),La(SS-B),CENP,Scl-70,Elva-1 Performed By: #### U ALYSSA ADAMES #### [place] [address] [employer] Set Production Designer: Alexey Green MD Basic Metabolic Profon 07-27 Anion gap [Moles/Vol] 9 mmol/L Normal 9-16 [facility] Comment on above: Performed By: #### B MPX #### [place] [address] [employer] Set Production Designer: Alexey Green MD Calcium [Mass/Vol] 7.8 mg/dL Low 8.6-10.4 [facility] Comment on above: Performed By: #### B MPX #### [place] [address] [employer] Set Production Designer: Alexey Green MD Chloride [Moles/Vol] 110 mmol/L High 98-107 [facility] Comment on above: Performed By: #### B MPX #### [address] [address] Theater Set Production Designer: Alexey Green MD CO2 [Moles/Vol] 18 mmol/L Low 20-31 [facility] Comment on above: Performed By: #### B MPX #### [facility] [address] [place] [address] Theater Set Production Designer: Alexey Green MD Creatinine [Mass/Vol] 2.5 mg/dL High 0.50-0.90 [facility] Comment on above: Performed By: #### B MPX #### [facility] [employer] [address] [place] [address] Theater Set Production Designer: Alexey Green MD GFR/1.73 sq M.predicted among non-blacks MDRD (S/P/Bld) [Vol rate/Area] 18 mL/min/{1.73_m2} Low >60 [facility] Comment on above: Result Comment: These results [...] secretion. Performed By: #### B MPX #### [facility] [employer] [address] [place] [address] Theater Set Production Designer: Alexey Green MD Glucose [Mass/Vol] 143 mg/dL High 74-99 [facility] Comment on above: Performed By: #### B MPX #### [facility] [employer] [address] [place] [address] Theater Set Production Designer: Alexey Green MD Potassium [Moles/Vol] 4.4 mmol/L Normal 3.7-5.3 [facility] Comment on above: Performed By: #### B MPX #### [facility] [address] [place] [address] Theater Set Production Designer: Alexey Green MD Sodium [Moles/Vol] 137 mmol/L Normal 136-145 [facility] Comment on above: Performed By: #### B MPX #### [facility] [address] [place] [address] Theater Set Production Designer: Alexey Green MD Urea nitrogen [Mass/Vol] 44 mg/dL High 8-23 [facility] Comment on above: Performed By: #### B MPX #### [address] [address] Theater Set Production Designer: Alexey Green MD Anion gap [Moles/Vol] 9 mmol/L Normal 9-16 [facility] Comment on above: Performed By: #### U MICAO UA #### [facility] [employer] [address] [place] [address] Theater Set Production Designer: Alexey Green MD Calcium [Mass/Vol] 7.8 mg/dL Low 8.6-10.4 [facility] Comment on above: Performed By: #### U KURTISO UA #### [facility] [employer] [address] [place] [address] Theater Set Production Designer: Alexey Green MD Chloride [Moles/Vol] 110 mmol/L High 98-107 [facility] Comment on above: Performed By: #### U KURTISO UA #### [facility] [address] [place] [address] Theater Set Production Designer: Alexey Green MD CO2 [Moles/Vol] 18 mmol/L Low 20-31 [facility] Comment on above: Performed By: #### U MICAO, UA #### [facility] [address] [place] [address] Theater Set Production Designer: Alexey Green MD Creatinine [Mass/Vol] 2.5 mg/dL High 0.50-0.90 [facility] Comment on above: Performed By: #### U MICAO, UA #### [facility] [address] [place] [address] Theater Set Production Designer: Alexey Green MD GFR/1.73 sq M.predicted among non-blacks MDRD (S/P/Bld) [Vol rate/Area] 18 mL/min/{1.73_m2} Low >60 [facility] Comment on above: Result Comment: These results [...] Performed By: #### U MICAO, UA #### [employer] [address] [place] [address] Theater Set Production Designer: Alexey Green MD Glucose [Mass/Vol] 143 mg/dL High 74-99 [facility] Comment on above: Performed By: #### U MICAO, UA #### [employer] [address] [place] [address] Theater Set Production Designer: Alexey Green MD Potassium [Moles/Vol] 4.4 mmol/L Normal 3.7-5.3 [facility] Comment on above: Performed By: #### U MICAO, UA #### [facility] [address] [place] [address] Theater Set Production Designer: Alexey Green MD Sodium [Moles/Vol] 137 mmol/L Normal 136-145 [facility] Comment on above: Performed By: #### U MICAO, UA #### [employer] [address] [place] [address] Theater Set Production Designer: Alexey Green MD Urea nitrogen [Mass/Vol] 44 mg/dL High 8-23 [facility] Comment on above: Performed By: #### U MICAO, UA #### [employer] [address] [place] [address] Theater Set Production Designer: Alexey Green MD CBC with Diffon 07-28-2023 Abs. Basophil 0.03 k/uL Normal 0.00-0.20 [facility] Comment on above: Performed By: #### U RNA, URTP, URCRE, UEOS #### [address] [address] Theater Set Production Designer: Alexey Green MD Abs.Imm.Granulocyte 0.06 k/uL Normal 0.00-0.30 [facility] Comment on above: Performed By: #### U RNA, URTP, URCRE, UEOS #### [address] [address] Theater Set Production Designer: Alexey Green MD Abs.Neutrophil (Seg) 5.08 k/uL Normal 1.50-8.10 [facility] Comment on above: Performed By: #### U RNA, URTP, URCRE, UEOS #### [address] [address] Theater Set Production Designer: Alexey Green MD Basophils/100 WBC (Bld) 0 % Normal 0-2 [facility] Comment on above: Performed By: #### U RNA, URTP, URCRE, UEOS #### [address] [address] Theater Set Production Designer: Alexey Green MD Eosinophils (Bld) [#/Vol] 0.65 10*3/uL High 0.00-0.44 [facility] Comment on above: Performed By: #### U RNA, URTP, URCRE, UEOS #### [address] [address] Theater Set Production Designer: Alexey Green MD Eosinophils/100 WBC (Bld) 7 % High 1-4 [facility] Comment on above: Performed By: #### U RNA, URTP, URCRE, UEOS #### [address] [address] Theater Set Production Designer: Alexey Green MD Erythrocyte distribution width (RBC) [Ratio] 18.1 % High 11.8-14.4 [facility] Comment on above: Performed By: #### U RNA, URTP, URCRE, UEOS #### [address] [address] Theater Set Production Designer: Alexey Green MD Hematocrit (Bld) [Volume fraction] 25.1 % Low 36.3-47.1 [facility] Comment on above: Performed By: #### U RNA, URTP, URCRE, UEOS #### [address] [address] Theater Set Production Designer: Alexey Green MD Hemoglobin (Bld) [Mass/Vol] 7.2 g/dL Low 11.9-15.1 [facility] Comment on above: Performed By: #### U RNA, URTP, URCRE, UEOS #### [address] [address] Theater Set Production Designer: Alexey Green MD Immature granulocytes/100 WBC (Bld) 1 % High 0 [facility] Comment on above: Performed By: #### U RNA, URTP, URCRE, UEOS #### [address] [address] Theater Set Production Designer: Alexey Green MD Lymphocytes (Bld) [#/Vol] 2.69 10*3/uL Normal 1.10-3.70 [facility] Comment on above: Performed By: #### U RNA, URTP, URCRE, UEOS #### [address] [address] Theater Set Production Designer: Alexey Green MD Lymphocytes/100 WBC (Bld) 28 % Normal 24-43 [facility] Comment on above: Performed By: #### U RNA, URTP, URCRE, UEOS #### [address] [address] Theater Set Production Designer: Alexey Green MD MCH (RBC) [Entitic mass] 29.3 pg Normal 25.2-33.5 [facility] Comment on above: Performed By: #### U RNA, URTP, URCRE, UEOS #### [address] [address] Theater Set Production Designer: Alexey Green MD MCHC (RBC) [Mass/Vol] 28.7 g/dL Normal 28.4-34.8 [facility] Comment on above: Performed By: #### U RNA, URTP, URCRE, UEOS #### [address] [address] Theater Set Production Designer: Alexey Green MD MCV (RBC) [Entitic vol] 102.0 fL Normal 82.6-102.9 [facility] Comment on above: Performed By: #### U RNA, URTP, URCRE, UEOS #### [address] [address] Theater Set Production Designer: Alexey Green MD Monocytes (Bld) [#/Vol] 1.10 10*3/uL Normal 0.10-1.20 [facility] Comment on above: Performed By: #### U RNA, URTP, URCRE, UEOS #### [address] [address] Theater Set Production Designer: Alexey Green MD Monocytes/100 WBC (Bld) 11 % Normal 3-12 [facility] Comment on above: Performed By: #### U RNA, URTP, URCRE, UEOS #### [address] [address] Theater Set Production Designer: Alexey Green MD Neutrophil (Seg) 53 % Normal 36-65 [facility] Comment on above: Performed By: #### U RNA, URTP, URCRE, UEOS #### [address] [address] Theater Set Production Designer: Alexey Green MD NRBC Automated 0.0 per 100 WBC Normal 0.0 [facility] Comment on above: Performed By: #### U RNA, URTP, URCRE, UEOS #### [address] [address] Theater Set Production Designer: Alexey Green MD Platelet mean volume (Bld) [Entitic vol] 11.7 fL Normal 8.1-13.5 [facility] Comment on above: Performed By: #### U RNA, URTP, URCRE, UEOS #### [address] [address] Theater Set Production Designer: Alexey Green MD Platelets (Bld) [#/Vol] 161 10*3/uL Normal 138-453 [facility] Comment on above: Performed By: #### U RNA, URTP, URCRE, UEOS #### [address] [address] Theater Set Production Designer: Alexey Green MD RBC (Bld) [#/Vol] 2.46 10*6/uL Low 3.95-5.11 [facility] Comment on above: Performed By: #### U RNA, URTP, URCRE, UEOS #### [address] [address] Theater Set Production Designer: Alexey Green MD RBC morphology finding Nom (Bld) ANISOCYTOSIS PRESENT Normal [facility] Comment on above: Performed By: #### U RNA, URTP, URCRE, UEOS #### [address] [address] Theater Set Production Designer: Alexey Green MD WBC (Bld) [#/Vol] 9.6 10*3/uL Normal 3.5-11.3 [facility] Comment on above: Performed By: #### U RNA, URTP, URCRE, UEOS #### [address] [address] Theater Set Production Designer: Alexey Green MD Abs. Basophil 0.03 k/uL Normal 0.00-0.20 [facility] Comment on above: Performed By: #### U ZACARIAS UA #### [facility] [employer] [address] [place] [address] Theater Set Production Designer: Alexey Green MD Abs.Imm.Granulocyte 0.06 k/uL Normal 0.00-0.30 [facility] Comment on above: Performed By: #### Tanja ADAMES UA #### [facility] [employer] [address] [place] [address] Theater Set Production Designer: Alexey Green MD Abs.Neutrophil (Seg) 5.08 k/uL Normal 1.50-8.10 [facility] Comment on above: Performed By: #### Tanja ADAMES UA #### [address] [address] Theater Set Production Designer: Alexey Green MD Basophils/100 WBC (Bld) 0 % Normal 0-2 [facility] Comment on above: Performed By: #### Tanja ADAMES UA #### [facility] [employer] [address] [place] [address] Theater Set Production Designer: Alexey Green MD Eosinophils (Bld) [#/Vol] 0.65 10*3/uL High 0.00-0.44 [facility] Comment on above: Performed By: #### U ZACARIAS UA #### [facility] [employer] [address] [place] [address] Theater Set Production Designer: Alexey Green MD Eosinophils/100 WBC (Bld) 7 % High 1-4 [facility] Comment on above: Performed By: #### U ZACARIAS UA #### [facility] [address] [place] [address] Theater Set Production Designer: Alexey Green MD Erythrocyte distribution width (RBC) [Ratio] 18.1 % High 11.8-14.4 [facility] Comment on above: Performed By: #### U KURTISO UA #### [facility] [employer] [address] [place] [address] Theater Set Production Designer: Alexey Green MD Hematocrit (Bld) [Volume fraction] 25.1 % Low 36.3-47.1 [facility] Comment on above: Performed By: #### U ZACARIAS UA #### [facility] [employer] [address] [place] [address] Theater Set Production Designer: Alexey Green MD Hemoglobin (Bld) [Mass/Vol] 7.2 g/dL Low 11.9-15.1 [facility] Comment on above: Performed By: #### U KURTISO, UA #### [facility] [employer] [address] [place] [address] Theater Set Production Designer: Alexey Green MD Immature granulocytes/100 WBC (Bld) 1 % High 0 [facility] Comment on above: Performed By: #### U ZACARIAS UA #### [facility] [employer] [address] [place] [address] Theater Set Production Designer: Alexey Green MD Lymphocytes (Bld) [#/Vol] 2.69 10*3/uL Normal 1.10-3.70 [facility] Comment on above: Performed By: #### U ZACARIAS, UA #### [facility] [employer] [address] [place] [address] Theater Set Production Designer: Alexey Green MD Lymphocytes/100 WBC (Bld) 28 % Normal 24-43 [facility] Comment on above: Performed By: #### U MICAO, UA #### [facility] [employer] [address] [place] [address] Theater Set Production Designer: Alexey Green MD MCH (RBC) [Entitic mass] 29.3 pg Normal 25.2-33.5 [facility] Comment on above: Performed By: #### U MICAO, UA #### [address] [address] Theater Set Production Designer: Alexey Green MD MCHC (RBC) [Mass/Vol] 28.7 g/dL Normal 28.4-34.8 [facility] Comment on above: Performed By: #### U MICAO, UA #### [address] [address] Theater Set Production Designer: Alexey Green MD MCV (RBC) [Entitic vol] 102.0 fL Normal 82.6-102.9 [facility] Comment on above: Performed By: #### U KURTISO, UA #### [address] [address] Theater Set Production Designer: Alexey Green MD Monocytes (Bld) [#/Vol] 1.10 10*3/uL Normal 0.10-1.20 [facility] Comment on above: Performed By: #### U MICAO, UA #### [address] [address] Theater Set Production Designer: Alexey Green MD Monocytes/100 WBC (Bld) 11 % Normal 3-12 [facility] Comment on above: Performed By: #### U MICAO, UA #### [facility] [employer] [address] [place] [address] Theater Set Production Designer: Alexey Green MD Neutrophil (Seg) 53 % Normal 36-65 [facility] Comment on above: Performed By: #### U MICAO, UA #### [facility] [employer] [address] [place] [address] Theater Set Production Designer: Alexey Green MD NRBC Automated 0.0 per 100 WBC Normal 0.0 [facility] Comment on above: Performed By: #### U ZACARIAS UA #### [address] [address] Theater Set Production Designer: Alexey Green MD Platelet mean volume (Bld) [Entitic vol] 11.7 fL Normal 8.1-13.5 [facility] Comment on above: Performed By: #### U ZACARIAS UA #### [address] [address] Theater Set Production Designer: Alexey Green MD Platelets (Bld) [#/Vol] 161 10*3/uL Normal 138-453 [facility] Comment on above: Performed By: #### Tanja ADAMES UA #### [address] [address] Theater Set Production Designer: Alexey Green MD RBC (Bld) [#/Vol] 2.46 10*6/uL Low 3.95-5.11 [facility] Comment on above: Performed By: #### Tanja ADAMES UA #### [address] [address] Theater Set Production Designer: Alexey Green MD RBC morphology finding Nom (Bld) ANISOCYTOSIS PRESENT Normal [facility] Comment on above: Performed By: #### Tanja ADAMES UA #### [address] [address] Theater Set Production Designer: Alexey Green MD WBC (Bld) [#/Vol] 9.6 10*3/uL Normal 3.5-11.3 [facility] Comment on above: Performed By: #### U ZACARIAS UA #### [address] [address] Theater Set Production Designer: Alexey Green MD Basic Metabolic Profon 07-26 Anion gap [Moles/Vol] 9 mmol/L Normal 9-16 [facility] Comment on above: Performed By: #### U RNA, URTP, URCRE, UEOS #### [address] [address] Theater Set Production Designer: Alexey Green MD Calcium [Mass/Vol] 7.5 mg/dL Low 8.6-10.4 [facility] Comment on above: Performed By: #### U RNA, URTP, URCRE, UEOS #### [facility] [employer] [address] [place] [address] Theater Set Production Designer: Alexey Green MD Chloride [Moles/Vol] 110 mmol/L High 98-107 [facility] Comment on above: Performed By: #### U RNA, URTP, URCRE, UEOS #### [address] [address] Theater Set Production Designer: Alexey Green MD CO2 [Moles/Vol] 17 mmol/L Low 20-31 [facility] Comment on above: Performed By: #### U RNA, URTP, URCRE, UEOS #### [facility] [employer] [address] [place] [address] Theater Set Production Designer: Alexey Green MD Creatinine [Mass/Vol] 2.6 mg/dL High 0.50-0.90 [facility] Comment on above: Performed By: #### U RNA, URTP, URCRE, UEOS #### [facility] [employer] [address] [place] [address] Theater Set Production Designer: Alexey Green MD GFR/1.73 sq M.predicted among non-blacks MDRD (S/P/Bld) [Vol rate/Area] 17 mL/min/{1.73_m2} Low >60 [facility] Comment on above: Result Comment: These results [...] #### U RNA, URTP, URCRE, UEOS #### [address] [address] Theater Set Production Designer: Alexey Green MD Glucose [Mass/Vol] 90 mg/dL Normal 74-99 [facility] Comment on above: Performed By: #### U RNA, URTP, URCRE, UEOS #### [address] [address] Theater Set Production Designer: Alexey Green MD Potassium [Moles/Vol] 4.3 mmol/L Normal 3.7-5.3 [facility] Comment on above: Performed By: #### U RNA, URTP, URCRE, UEOS #### [address] [address] Theater Set Production Designer: Alexey Green MD Sodium [Moles/Vol] 136 mmol/L Normal 136-145 [facility] Comment on above: Performed By: #### U RNA, URTP, URCRE, UEOS #### [address] [address] Theater Set Production Designer: Alexey Green MD Urea nitrogen [Mass/Vol] 44 mg/dL High 8-23 [facility] Comment on above: Performed By: #### U RNA, URTP, URCRE, UEOS #### [address] [address] Theater Set Production Designer: Alexey Green MD Anion gap [Moles/Vol] 9 mmol/L Normal 9-16 [facility] Comment on above: Performed By: #### U MICAO, UA #### [facility] [employer] [address] [place] [address] Theater Set Production Designer: Alexey Green MD Calcium [Mass/Vol] 7.5 mg/dL Low 8.6-10.4 [facility] Comment on above: Performed By: #### U KURTISO, UA #### [facility] [address] [place] [address] Theater Set Production Designer: Alexey Green MD Chloride [Moles/Vol] 110 mmol/L High 98-107 [facility] Comment on above: Performed By: #### U MICAO, UA #### [facility] [address] [place] [address] Theater Set Production Designer: Alexey Green MD CO2 [Moles/Vol] 17 mmol/L Low 20-31 [facility] Comment on above: Performed By: #### U ZACARIAS, UA #### [address] [address] Theater Set Production Designer: Alexey Green MD Creatinine [Mass/Vol] 2.6 mg/dL High 0.50-0.90 [facility] Comment on above: Performed By: #### U ZACARIAS UA #### [address] [address] Theater Set Production Designer: Alexey Green MD GFR/1.73 sq M.predicted among non-blacks MDRD (S/P/Bld) [Vol rate/Area] 17 mL/min/{1.73_m2} Low >60 [facility] Comment on above: Result Comment: These results [...] Performed By: #### U KURTISO UA #### [facility] [employer] [address] [place] [address] Theater Set Production Designer: Alexey Green MD Glucose [Mass/Vol] 90 mg/dL Normal 74-99 [facility] Comment on above: Performed By: #### U ZACARIAS UA #### [facility] [address] [place] [address] Theater Set Production Designer: Alexey Green MD Potassium [Moles/Vol] 4.3 mmol/L Normal 3.7-5.3 [facility] Comment on above: Performed By: #### U ZACARIAS UA #### [facility] [employer] [address] [place] [address] Theater Set Production Designer: Alexey Green MD Sodium [Moles/Vol] 136 mmol/L Normal 136-145 [facility] Comment on above: Performed By: #### Tanja ADAMES UA #### [address] [address] Theater Set Production Designer: Alexey Green MD Urea nitrogen [Mass/Vol] 44 mg/dL High 8-23 [facility] Comment on above: Performed By: #### Tanja ADAMES UA #### [facility] [employer] [address] [place] [address] Theater Set Production Designer: Alexey Green MD CBC with Diffon 07-27-2023 Abs. Basophil 0.00 k/uL Normal 0.00-0.20 [facility] Comment on above: Performed By: #### U RNA, URTP, URCRE, UEOS #### [facility] [employer] [address] [place] [address] Theater Set Production Designer: Alexey Green MD Abs.Imm.Granulocyte 0.10 k/uL Normal 0.00-0.30 [facility] Comment on above: Performed By: #### U RNA, URTP, URCRE, UEOS #### [facility] [employer] [address] [place] [address] Theater Set Production Designer: Alexey Green MD Abs.Neutrophil (Seg) 5.10 k/uL Normal 1.50-8.10 [facility] Comment on above: Performed By: #### U RNA, URTP, URCRE, UEOS #### [address] [address] Theater Set Production Designer: Alexey Green MD Basophils/100 WBC (Bld) 0 % Normal 0-2 [facility] Comment on above: Performed By: #### U RNA, URTP, URCRE, UEOS #### [address] [address] Theater Set Production Designer: Alexey Green MD Eosinophils (Bld) [#/Vol] 0.70 10*3/uL High 0.00-0.44 [facility] Comment on above: Performed By: #### U RNA, URTP, URCRE, UEOS #### [address] [address] Theater Set Production Designer: Alexey Green MD Eosinophils/100 WBC (Bld) 7 % High 1-4 [facility] Comment on above: Performed By: #### U RNA, URTP, URCRE, UEOS #### [address] [address] Theater Set Production Designer: Alexey Green MD Immature granulocytes/100 WBC (Bld) 1 % High 0 [facility] Comment on above: Performed By: #### U RNA, URTP, URCRE, UEOS #### [address] [address] Theater Set Production Designer: Alexey Green MD Lymphocytes (Bld) [#/Vol] 3.20 10*3/uL Normal 1.10-3.70 [facility] Comment on above: Performed By: #### U RNA, URTP, URCRE, UEOS #### [address] [address] Theater Set Production Designer: Alexey Green MD Lymphocytes/100 WBC (Bld) 32 % Normal 24-43 [facility] Comment on above: Performed By: #### U RNA, URTP, URCRE, UEOS #### [address] [address] Theater Set Production Designer: Alexey Green MD Monocytes (Bld) [#/Vol] 0.90 10*3/uL Normal 0.10-1.20 [facility] Comment on above: Performed By: #### U RNA, URTP, URCRE, UEOS #### [address] [address] Theater Set Production Designer: Alexey Green MD Monocytes/100 WBC (Bld) 9 % Normal 3-12 [facility] Comment on above: Performed By: #### U RNA, URTP, URCRE, UEOS #### [address] [address] Theater Set Production Designer: Alexey Green MD Morphology Tito (Bld) [Interp] ANISOCYTOSIS PRESENT Normal [facility] Comment on above: Result Comment: MACR OCYTOSIS PRESENT Performed By: #### U RNA, URTP, URCRE, UEOS #### [address] [address] Theater Set Production Designer: Alexey Green MD Neutrophil (Seg) 51 % Normal 36-65 [facility] Comment on above: Performed By: #### U RNA, URTP, URCRE, UEOS #### [address] [address] Theater Set Production Designer: Alexey Green MD Erythrocyte distribution width (RBC) [Ratio] 18.8 % High 11.8-14.4 [facility] Comment on above: Performed By: #### U RNA, URTP, URCRE, UEOS #### [address] [phone] Theater Set Production Designer: Alexey Green MD Hematocrit (Bld) [Volume fraction] 28.5 % Low 36.3-47.1 [facility] Comment on above: Performed By: #### U RNA, URTP, URCRE, UEOS #### [address] [phone] Theater Set Production Designer: Alexey Green MD Hemoglobin (Bld) [Mass/Vol] 7.7 g/dL Low 11.9-15.1 [facility] Comment on above: Performed By: #### U RNA, URTP, URCRE, UEOS #### [address] [address] Theater Set Production Designer: Alexey Green MD MCH (RBC) [Entitic mass] 29.5 pg Normal 25.2-33.5 [facility] Comment on above: Performed By: #### U RNA, URTP, URCRE, UEOS #### [address] [address] Theater Set Production Designer: Alexey Green MD MCHC (RBC) [Mass/Vol] 27.0 g/dL Low 28.4-34.8 [facility] Comment on above: Performed By: #### U RNA, URTP, URCRE, UEOS #### [address] [address] Theater Set Production Designer: Alexey Green MD MCV (RBC) [Entitic vol] 109.2 fL High 82.6-102.9 [facility] Comment on above: Performed By: #### U RNA, URTP, URCRE, UEOS #### [address] [address] Theater Set Production Designer: Alexey Green MD NRBC Automated 0.2 per 100 WBC High 0.0 [facility] Comment on above: Performed By: #### U RNA, URTP, URCRE, UEOS #### [address] [address] Theater Set Production Designer: Alexey Green MD Platelet mean volume (Bld) [Entitic vol] 11.4 fL Normal 8.1-13.5 [facility] Comment on above: Performed By: #### U RNA, URTP, URCRE, UEOS #### [address] [address] Theater Set Production Designer: Alexey Green MD Platelets (Bld) [#/Vol] 135 10*3/uL Low 138-453 [facility] Comment on above: Performed By: #### U RNA, URTP, URCRE, UEOS #### [address] [address] Theater Set Production Designer: Alexey Green MD RBC (Bld) [#/Vol] 2.61 10*6/uL Low 3.95-5.11 [facility] Comment on above: Performed By: #### U RNA, URTP, URCRE, UEOS #### [address] [address] Theater Set Production Designer: Alexey Green MD WBC (Bld) [#/Vol] 10.0 10*3/uL Normal 3.5-11.3 [facility] Comment on above: Performed By: #### U RNA, URTP, URCRE, UEOS #### [address] [address] Theater Set Production Designer: Alexey Green MD Abs. Basophil 0.00 k/uL Normal 0.00-0.20 [facility] Comment on above: Performed By: #### U MICAO, UA #### [address] [address] Theater Set Production Designer: Alexey Green MD Abs.Imm.Granulocyte 0.10 k/uL Normal 0.00-0.30 [facility] Comment on above: Performed By: #### ALYSSA SILVER #### [address] [address] Theater Set Production Designer: Alexey Green MD Abs.Neutrophil (Seg) 5.10 k/uL Normal 1.50-8.10 [facility] Comment on above: Performed By: #### Tanja ADAMES UA #### [address] [address] Theater Set Production Designer: Alexey Green MD Basophils/100 WBC (Bld) 0 % Normal 0-2 [facility] Comment on above: Performed By: #### Tanja ADAMES UA #### [address] [address] Theater Set Production Designer: Alexey Green MD Eosinophils (Bld) [#/Vol] 0.70 10*3/uL High 0.00-0.44 [facility] Comment on above: Performed By: #### Tanja ADAMES UA #### [address] [address] Theater Set Production Designer: Alexey Green MD Eosinophils/100 WBC (Bld) 7 % High 1-4 [facility] Comment on above: Performed By: #### Tanja ADAMES UA #### [address] [address] Theater Set Production Designer: Alexey Green MD Immature granulocytes/100 WBC (Bld) 1 % High 0 [facility] Comment on above: Performed By: #### Tanja ADAMES UA #### [address] [address] Theater Set Production Designer: Alexey Green MD Lymphocytes (Bld) [#/Vol] 3.20 10*3/uL Normal 1.10-3.70 [facility] Comment on above: Performed By: #### Tanja KURTISO, UA #### [facility] [employer] [address] [place] [address] Theater Set Production Designer: Alexey Green MD Lymphocytes/100 WBC (Bld) 32 % Normal 24-43 [facility] Comment on above: Performed By: #### U MICAO, UA #### [address] [address] Theater Set Production Designer: Alexey Green MD Monocytes (Bld) [#/Vol] 0.90 10*3/uL Normal 0.10-1.20 [facility] Comment on above: Performed By: #### U ZACARIAS UA #### [address] [address] Theater Set Production Designer: Alexey Green MD Monocytes/100 WBC (Bld) 9 % Normal 3-12 [facility] Comment on above: Performed By: #### U ZACARIAS UA #### [address] [address] Theater Set Production Designer: Alexey Green MD Morphology Tito (Bld) [Interp] ANISOCYTOSIS PRESENT Normal [facility] Comment on above: Result Comment: MACR OCYTOSIS PRESENT Performed By: #### U ZACARIAS UA #### [address] [address] Theater Set Production Designer: Alexey Green MD Neutrophil (Seg) 51 % Normal 36-65 [facility] Comment on above: Performed By: #### U KURTISO, UA #### [address] [address] Theater Set Production Designer: Alexey Green MD Erythrocyte distribution width (RBC) [Ratio] 18.8 % High 11.8-14.4 [facility] Comment on above: Performed By: #### U KURTISO UA #### [facility] [employer] [address] [place] [phone] Theater Set Production Designer: Alexey Green MD Hematocrit (Bld) [Volume fraction] 28.5 % Low 36.3-47.1 [facility] Comment on above: Performed By: #### U ZACARIAS UA #### [facility] [employer] [address] [place] [address] Theater Set Production Designer: Alexey Green MD Hemoglobin (Bld) [Mass/Vol] 7.7 g/dL Low 11.9-15.1 [facility] Comment on above: Performed By: #### U ZACARIAS UA #### [facility] [employer] [address] [place] [address] Theater Set Production Designer: Alexey Green MD MCH (RBC) [Entitic mass] 29.5 pg Normal 25.2-33.5 [facility] Comment on above: Performed By: #### Tanja ADAMES UA #### [facility] [employer] [address] [place] [address] Theater Set Production Designer: Alexey Green MD MCHC (RBC) [Mass/Vol] 27.0 g/dL Low 28.4-34.8 [facility] Comment on above: Performed By: #### U ZACARIAS UA #### [facility] [employer] [address] [place] [address] Theater Set Production Designer: Alexey Green MD MCV (RBC) [Entitic vol] 109.2 fL High 82.6-102.9 [facility] Comment on above: Performed By: #### U ZACARIAS UA #### [facility] [employer] [address] [place] [address] Theater Set Production Designer: Alexey Green MD NRBC Automated 0.2 per 100 WBC High 0.0 [facility] Comment on above: Performed By: #### U ZACARIAS UA #### [facility] [employer] [address] [place] [phone] Theater Set Production Designer: Alexey Green MD Platelet mean volume (Bld) [Entitic vol] 11.4 fL Normal 8.1-13.5 [facility] Comment on above: Performed By: #### U ZACARIAS UA #### [facility] [address] [place] [address] Theater Set Production Designer: Alexey Green MD Platelets (Bld) [#/Vol] 135 10*3/uL Low 138-453 [facility] Comment on above: Performed By: #### U ZACARIAS UA #### [facility] [address] [place] [address] Theater Set Production Designer: Alexey Green MD RBC (Bld) [#/Vol] 2.61 10*6/uL Low 3.95-5.11 [facility] Comment on above: Performed By: #### Tanja ADAMES UA #### [facility] [employer] [address] [place] [address] Theater Set Production Designer: Alexey Green MD WBC (Bld) [#/Vol] 10.0 10*3/uL Normal 3.5-11.3 [facility] Comment on above: Performed By: #### Tanja ADAMES UA #### [facility] [address] [place] [address] Theater Set Production Designer: Alexey Green MD Phosphorus, Inorg.on 024 Phosphorus, Inorg. 4.4 mg/dL Normal 2.5-4.5 [facility] Comment on above: Performed By: #### U RNA, URTP, URCRE, UEOS #### [facility] [employer] [address] [place] [address] Theater Set Production Designer: Alexey Green MD Phosphorus, Inorg. 4.4 mg/dL Normal 2.5-4.5 [facility] Comment on above: Performed By: #### U ZACARIAS UA #### [facility] [address] [place] [address] [phone] Theater Set Production Designer: Alexey Green MD Prot. Electroph, Blon 2023 Pathologist Review: ELECTRONICALLY ANNA CARRILLO M.D. Normal [facility] Comment on above: Performed By: #### U RNA, URTP, URCRE, UEOS #### [address] [address] Theater Set Production Designer: Alexey Green MD Albumin [Mass/Vol] 3.1 g/dL Low 3.2-5.2 [facility] Comment on above: Performed By: #### U RNA, URTP, URCRE, UEOS #### [address] [address] Theater Set Production Designer: Alexey Green MD Albumin, % 55 % Normal 45-65 [facility] Comment on above: Performed By: #### U RNA, URTP, URCRE, UEOS #### [address] [address] Theater Set Production Designer: Alexey Green MD Eidsh-7-desbzciht 0.3 g/dL Normal 0.1-0.4 [facility] Comment on above: Performed By: #### U RNA, URTP, URCRE, UEOS #### [address] [address] Theater Set Production Designer: Alexey Green MD Vdzlz-2-wqkkcxphm,% 4 % Normal 3-6 [facility] Comment on above: Performed By: #### U RNA, URTP, URCRE, UEOS #### [address] [address] Theater Set Production Designer: Alexey Green MD Fjfwk-7-ysqnopgka 0.8 g/dL Normal 0.5-0.9 [facility] Comment on above: Performed By: #### U RNA, URTP, URCRE, UEOS #### [address] [address] Theater Set Production Designer: Alexey Green MD Ibzre-3-gblrwiogq,% 15 % High 6-13 [facility] Comment on above: Performed By: #### U RNA, URTP, URCRE, UEOS #### [address] [address] Theater Set Production Designer: Alexey Green MD Beta-globulins 0.8 g/dL Normal 0.5-1.1 [facility] Comment on above: Performed By: #### U RNA, URTP, URCRE, UEOS #### [address] [address] Theater Set Production Designer: Alexey Green MD Beta-globulins,% 14 % Normal 11-19 [facility] Comment on above: Performed By: #### U RNA, URTP, URCRE, UEOS #### [address] [address] Theater Set Production Designer: Alexey Green MD Gamma-globulins 0.7 g/dL Normal 0.5-1.5 [facility] Comment on above: Performed By: #### U RNA, URTP, URCRE, UEOS #### [address] [address] Theater Set Production Designer: Alexey Green MD Gamma-globulins,% 13 % Normal 9-20 [facility] Comment on above: Performed By: #### U RNA, URTP, URCRE, UEOS #### [address] [address] Theater Set Production Designer: Alexey Green MD Prot. Elect-Interp Albumin is decreased . May be observed with hepatic diseases, proteinuria, Normal [facility] Comment on above: Result Comment: maln utrition, acute phase response, and hemodilution. Performed By: #### U RNA, URTP, URCRE, UEOS #### [address] [address] Theater Set Production Designer: Alexey Green MD Total Prot. Sum 5.7 g/dL Low 6.3-8.2 [facility] Comment on above: Performed By: #### U RNA, URTP, URCRE, UEOS #### [address] [address] Theater Set Production Designer: Alexey Green MD Total Prot. Sum,% 101 % Normal 98-102 [facility] Comment on above: Performed By: #### U RNA, URTP, URCRE, UEOS #### [address] [address] Theater Set Production Designer: Alexey Green MD Pathologist Review: ELECTRONICALLY ANNA CARRILLO M.D. Normal [facility] Comment on above: Performed By: #### U MICAO, UA #### [address] [address] Theater Set Production Designer: Alexey Green MD Albumin [Mass/Vol] 3.1 g/dL Low 3.2-5.2 [facility] Comment on above: Performed By: #### U MICAO, UA #### [address] [address] Theater Set Production Designer: Alexey Green MD Albumin, % 55 % Normal 45-65 [facility] Comment on above: Performed By: #### U MICAO, UA #### [address] [address] Theater Set Production Designer: Alexey Green MD Zvcoe-3-mnxpintsa 0.3 g/dL Normal 0.1-0.4 [facility] Comment on above: Performed By: #### U MICAO, UA #### [address] [address] Theater Set Production Designer: Alexey Green MD Ojzpg-6-vzsivkmei,% 4 % Normal 3-6 [facility] Comment on above: Performed By: #### U MICAO, UA #### [facility] [address] [place] [address] Theater Set Production Designer: Alexey Green MD Jcgib-2-sinzszoyl 0.8 g/dL Normal 0.5-0.9 [facility] Comment on above: Performed By: #### U MICAO, UA #### [facility] [address] [place] [address] Theater Set Production Designer: Alexey Green MD Qrepb-2-nigcyxmir,% 15 % High 6-13 [facility] Comment on above: Performed By: #### U MICAO, UA #### [facility] [employer] [address] [place] [address] Theater Set Production Designer: Alexey Green MD Beta-globulins 0.8 g/dL Normal 0.5-1.1 [facility] Comment on above: Performed By: #### U MICAO, UA #### [facility] [address] [place] [address] Theater Set Production Designer: Alexey Green MD Beta-globulins,% 14 % Normal 11-19 [facility] Comment on above: Performed By: #### U MICAO, UA #### [facility] [address] [place] [address] Theater Set Production Designer: Alexey Green MD Gamma-globulins 0.7 g/dL Normal 0.5-1.5 [facility] Comment on above: Performed By: #### U MICAO, UA #### [facility] [address] [place] [address] Theater Set Production Designer: Alexey Green MD Gamma-globulins,% 13 % Normal 9-20 [facility] Comment on above: Performed By: #### U MICAO, UA #### [facility] [address] [place] [address] Theater Set Production Designer: Alexey Green MD Prot. Elect-Interp Albumin is decreased . May be observed with hepatic diseases, proteinuria, Normal [facility] Comment on above: Result Comment: maln utrition, acute phase response, and hemodilution. Performed By: #### U MICAO, UA #### [email or web address] [address] [place] [address] Theater Set Production Designer: Alexey Green MD Total Prot. Sum 5.7 g/dL Low 6.3-8.2 [facility] Comment on above: Performed By: #### U MICAO, UA #### [facility] [address] [place] [address] Theater Set Production Designer: Alexey Green MD Total Prot. Sum,% 101 % Normal 98-102 [facility] Comment on above: Performed By: #### U MICAO, UA #### [employer] [address] [place] [address] Theater Set Production Designer: Alexey Green MD US RENAL COMPLETEon 07-27-19 [...] Edmundo Morton MD 07/26/23 Final result Normal [facility] Basic Metabolic Profon 07-25 Anion gap [Moles/Vol] 9 mmol/L Normal 9-16 [facility] Comment on above: Performed By: #### U RNA, URTP, URCRE, UEOS #### [address] [address] Theater Set Production Designer: Alexey Green MD Calcium [Mass/Vol] 7.7 mg/dL Low 8.6-10.4 [facility] Comment on above: Performed By: #### U RNA, URTP, URCRE, UEOS #### [address] [address] Theater Set Production Designer: Alexey Green MD Chloride [Moles/Vol] 108 mmol/L High 98-107 [facility] Comment on above: Performed By: #### U RNA, URTP, URCRE, UEOS #### [facility] [employer] [address] [place] [address] Theater Set Production Designer: Alexey Green MD CO2 [Moles/Vol] 20 mmol/L Normal 20-31 [facility] Comment on above: Performed By: #### U RNA, URTP, URCRE, UEOS #### [address] [address] Theater Set Production Designer: Alexey Green MD Creatinine [Mass/Vol] 2.7 mg/dL High 0.50-0.90 [facility] Comment on above: Performed By: #### U RNA, URTP, URCRE, UEOS #### [address] [address] Theater Set Production Designer: Alexey Green MD GFR/1.73 sq M.predicted among non-blacks MDRD (S/P/Bld) [Vol rate/Area] 17 mL/min/{1.73_m2} Low >60 [facility] Comment on above: Result Comment: These results [...] #### U RNA, URTP, URCRE, UEOS #### [facility] [facility] [employer] [address] [place] [address] Theater Set Production Designer: Alexey Green MD Glucose [Mass/Vol] 132 mg/dL High 74-99 [facility] Comment on above: Performed By: #### U RNA, URTP, URCRE, UEOS #### [address] [address] Theater Set Production Designer: Aelxey Green MD Potassium [Moles/Vol] 4.9 mmol/L Normal 3.7-5.3 [facility] Comment on above: Performed By: #### U RNA, URTP, URCRE, UEOS #### [address] [address] Theater Set Production Designer: Alexey Green MD Sodium [Moles/Vol] 137 mmol/L Normal 136-145 [facility] Comment on above: Performed By: #### U RNA, URTP, URCRE, UEOS #### [facility] [employer] [address] [place] [address] Theater Set Production Designer: Alexey Green MD Urea nitrogen [Mass/Vol] 43 mg/dL High 8-23 [facility] Comment on above: Performed By: #### U RNA, URTP, URCRE, UEOS #### [facility] [employer] [address] [place] [address] Theater Set Production Designer: Alexey Green MD Anion gap [Moles/Vol] 9 mmol/L Normal 9-16 [facility] Comment on above: Performed By: #### C DP #### [address] [place] [address] Theater Set Production Designer: Alexey Green MD Calcium [Mass/Vol] 7.7 mg/dL Low 8.6-10.4 [facility] Comment on above: Performed By: #### C DP #### [address] [address] Theater Set Production Designer: Alexey Green MD Chloride [Moles/Vol] 108 mmol/L High 98-107 [facility] Comment on above: Performed By: #### C DP #### [address] [address] Theater Set Production Designer: Alexey Green MD CO2 [Moles/Vol] 20 mmol/L Normal 20-31 [facility] Comment on above: Performed By: #### C DP #### [address] [address] Theater Set Production Designer: Alexey Green MD Creatinine [Mass/Vol] 2.7 mg/dL High 0.50-0.90 [facility] Comment on above: Performed By: #### C DP #### [address] [address] Theater Set Production Designer: Alexey Green MD GFR/1.73 sq M.predicted among non-blacks MDRD (S/P/Bld) [Vol rate/Area] 17 mL/min/{1.73_m2} Low >60 [facility] Comment on above: Result Comment: These results [...] secretion. Performed By: #### C DP #### [address] [address] Theater Set Production Designer: Alexey Green MD Glucose [Mass/Vol] 132 mg/dL High 74-99 [facility] Comment on above: Performed By: #### C DP #### [facility] [employer] [address] [place] [address] Theater Set Production Designer: Alexey Green MD Potassium [Moles/Vol] 4.9 mmol/L Normal 3.7-5.3 [facility] Comment on above: Performed By: #### C DP #### [facility] [employer] [address] [place] [address] Theater Set Production Designer: Alexey Green MD Sodium [Moles/Vol] 137 mmol/L Normal 136-145 [facility] Comment on above: Performed By: #### C DP #### [address] [address] Theater Set Production Designer: Alexey Green MD Urea nitrogen [Mass/Vol] 43 mg/dL High 8-23 [facility] Comment on above: Performed By: #### C DP #### [address] [address] Theater Set Production Designer: Alexey Green MD C3on C3 120 mg/dL Normal 90-180 [facility] Comment on above: Performed By: #### U RNA, URTP, URCRE, UEOS #### [facility] [employer] [address] [place] [address] Theater Set Production Designer: Alexey Green MD C3 120 mg/dL Normal 90-180 [facility] Comment on above: Performed By: #### U MICAO, UA #### [facility] [employer] [address] [place] [address] Theater Set Production Designer: Alexey Green MD C4on 07-26-2023 C4 27 mg/dL Normal 10-40 [facility] Comment on above: Performed By: #### U RNA, URTP, URCRE, UEOS #### [address] [address] Theater Set Production Designer: Alexey Green MD C4 27 mg/dL Normal 10-40 [facility] Comment on above: Performed By: #### U MICAO, UA #### [address] [address] Theater Set Production Designer: Alexey Green MD CBC with Diffon 07-26-2023 Abs. Basophil 0.04 k/uL Normal 0.00-0.20 [facility] Comment on above: Performed By: #### U RNA, URTP, URCRE, UEOS #### [address] [address] Theater Set Production Designer: Alexey Green MD Abs.Imm.Granulocyte 0.07 k/uL Normal 0.00-0.30 [facility] Comment on above: Performed By: #### U RNA, URTP, URCRE, UEOS #### [address] [address] Theater Set Production Designer: Alexey Green MD Abs.Neutrophil (Seg) 7.93 k/uL Normal 1.50-8.10 [facility] Comment on above: Performed By: #### U RNA, URTP, URCRE, UEOS #### [address] [address] Theater Set Production Designer: Alexey Green MD Basophils/100 WBC (Bld) 0 % Normal 0-2 [facility] Comment on above: Performed By: #### U RNA, URTP, URCRE, UEOS #### [address] [address] Theater Set Production Designer: Alexey Green MD Eosinophils (Bld) [#/Vol] 0.79 10*3/uL High 0.00-0.44 [facility] Comment on above: Performed By: #### U RNA, URTP, URCRE, UEOS #### [address] [address] Theater Set Production Designer: Alexey Green MD Eosinophils/100 WBC (Bld) 6 % High 1-4 [facility] Comment on above: Performed By: #### U RNA, URTP, URCRE, UEOS #### [address] [address] Theater Set Production Designer: Aleexy Green MD Erythrocyte distribution width (RBC) [Ratio] 19.9 % High 11.8-14.4 [facility] Comment on above: Performed By: #### U RNA, URTP, URCRE, UEOS #### [address] [address] Theater Set Production Designer: Alexey Green MD Hematocrit (Bld) [Volume fraction] 29.3 % Low 36.3-47.1 [facility] Comment on above: Performed By: #### U RNA, URTP, URCRE, UEOS #### [address] [address] Theater Set Production Designer: Alexey Green MD Hemoglobin (Bld) [Mass/Vol] 8.8 g/dL Low 11.9-15.1 [facility] Comment on above: Performed By: #### U RNA, URTP, URCRE, UEOS #### [address] [address] Theater Set Production Designer: Alexey Green MD Immature granulocytes/100 WBC (Bld) 1 % High 0 [facility] Comment on above: Performed By: #### U RNA, URTP, URCRE, UEOS #### [address] [address] Theater Set Production Designer: Alexey Green MD Lymphocytes (Bld) [#/Vol] 3.17 10*3/uL Normal 1.10-3.70 [facility] Comment on above: Performed By: #### U RNA, URTP, URCRE, UEOS #### [address] [address] Theater Set Production Designer: Alexey Green MD Lymphocytes/100 WBC (Bld) 24 % Normal 24-43 [facility] Comment on above: Performed By: #### U RNA, URTP, URCRE, UEOS #### [address] [address] Theater Set Production Designer: Alexey Green MD MCH (RBC) [Entitic mass] 29.6 pg Normal 25.2-33.5 [facility] Comment on above: Performed By: #### U RNA, URTP, URCRE, UEOS #### [place] [address] [employer] Set Production Designer: Alexey Green MD MCHC (RBC) [Mass/Vol] 30.0 g/dL Normal 28.4-34.8 [facility] Comment on above: Performed By: #### U RNA, URTP, URCRE, UEOS #### [address] [address] Theater Set Production Designer: Alexey Green MD MCV (RBC) [Entitic vol] 98.7 fL Normal 82.6-102.9 [facility] Comment on above: Performed By: #### U RNA, URTP, URCRE, UEOS #### [address] [address] Theater Set Production Designer: Alexey Green MD Monocytes (Bld) [#/Vol] 1.13 10*3/uL Normal 0.10-1.20 [facility] Comment on above: Performed By: #### U RNA, URTP, URCRE, UEOS #### [address] [address] Theater Set Production Designer: Alexey Green MD Monocytes/100 WBC (Bld) 9 % Normal 3-12 [facility] Comment on above: Performed By: #### U RNA, URTP, URCRE, UEOS #### [address] [address] Theater Set Production Designer: Alexey Green MD Neutrophil (Seg) 61 % Normal 36-65 [facility] Comment on above: Performed By: #### U RNA, URTP, URCRE, UEOS #### [address] [address] Theater Set Production Designer: Alexey Green MD NRBC Automated 0.2 per 100 WBC High 0.0 [facility] Comment on above: Performed By: #### U RNA, URTP, URCRE, UEOS #### [address] [address] Theater Set Production Designer: Alexey Green MD Platelet Count See Reflexed IPF Result Normal 138-453 [facility] Comment on above: Performed By: #### U RNA, URTP, URCRE, UEOS #### [address] [address] Theater Set Production Designer: Alexey Green MD Platelet, Fluoresc. 133 k/uL Low 138-453 [facility] Comment on above: Performed By: #### U RNA, URTP, URCRE, UEOS #### [address] [address] Theater Set Production Designer: Alexey Green MD PLT, Immature Fract. 6.0 % Normal 1.1-10.3 [facility] Comment on above: Performed By: #### U RNA, URTP, URCRE, UEOS #### [address] [address] Theater Set Production Designer: Alexey Green MD RBC (Bld) [#/Vol] 2.97 10*6/uL Low 3.95-5.11 [facility] Comment on above: Performed By: #### U RNA, URTP, URCRE, UEOS #### [address] [address] Theater Set Production Designer: Alexey Green MD RBC morphology finding Nom (Bld) ANISOCYTOSIS PRESENT Normal [facility] Comment on above: Performed By: #### U RNA, URTP, URCRE, UEOS #### [address] [address] Theater Set Production Designer: Alexey Green MD WBC (Bld) [#/Vol] 13.1 10*3/uL High 3.5-11.3 [facility] Comment on above: Performed By: #### U RNA, URTP, URCRE, UEOS #### [address] [address] Theater Set Production Designer: Alexey Green MD Abs. Basophil 0.04 k/uL Normal 0.00-0.20 [facility] Comment on above: Performed By: #### C DP #### [address] [address] Theater Set Production Designer: Alexey Green MD Abs.Imm.Granulocyte 0.07 k/uL Normal 0.00-0.30 [facility] Comment on above: Performed By: #### C DP #### [address] [address] Theater Set Production Designer: Alexey Green MD Abs.Neutrophil (Seg) 7.93 k/uL Normal 1.50-8.10 [facility] Comment on above: Performed By: #### C DP #### [address] [address] Theater Set Production Designer: Alexey Green MD Basophils/100 WBC (Bld) 0 % Normal 0-2 [facility] Comment on above: Performed By: #### C DP #### [address] [address] Theater Set Production Designer: Alexey Green MD Eosinophils (Bld) [#/Vol] 0.79 10*3/uL High 0.00-0.44 [facility] Comment on above: Performed By: #### C DP #### [address] [address] Theater Set Production Designer: Alexey Green MD Eosinophils/100 WBC (Bld) 6 % High 1-4 [facility] Comment on above: Performed By: #### C DP #### [address] [address] Theater Set Production Designer: Alexey Green MD Erythrocyte distribution width (RBC) [Ratio] 19.9 % High 11.8-14.4 [facility] Comment on above: Performed By: #### C DP #### [address] [address] Theater Set Production Designer: Alexey Green MD Hematocrit (Bld) [Volume fraction] 29.3 % Low 36.3-47.1 [facility] Comment on above: Performed By: #### C DP #### [address] [address] Theater Set Production Designer: Alexey Green MD Hemoglobin (Bld) [Mass/Vol] 8.8 g/dL Low 11.9-15.1 [facility] Comment on above: Performed By: #### C DP #### [address] [address] Theater Set Production Designer: Alexey Green MD Immature granulocytes/100 WBC (Bld) 1 % High 0 [facility] Comment on above: Performed By: #### C DP #### [address] [address] Theater Set Production Designer: Alexey Green MD Lymphocytes (Bld) [#/Vol] 3.17 10*3/uL Normal 1.10-3.70 [facility] Comment on above: Performed By: #### C DP #### [address] [address] Theater Set Production Designer: Alexey Green MD Lymphocytes/100 WBC (Bld) 24 % Normal 24-43 [facility] Comment on above: Performed By: #### C DP #### [address] [address] Theater Set Production Designer: Alexey Green MD MCH (RBC) [Entitic mass] 29.6 pg Normal 25.2-33.5 [facility] Comment on above: Performed By: #### C DP #### [address] [address] Theater Set Production Designer: Alexey Green MD MCHC (RBC) [Mass/Vol] 30.0 g/dL Normal 28.4-34.8 [facility] Comment on above: Performed By: #### C DP #### [address] [address] Theater Set Production Designer: Alexey Green MD MCV (RBC) [Entitic vol] 98.7 fL Normal 82.6-102.9 [facility] Comment on above: Performed By: #### C DP #### [address] [address] Theater Set Production Designer: Alexey Green MD Monocytes (Bld) [#/Vol] 1.13 10*3/uL Normal 0.10-1.20 [facility] Comment on above: Performed By: #### C DP #### [address] [address] Theater Set Production Designer: Alexey Green MD Monocytes/100 WBC (Bld) 9 % Normal 3-12 [facility] Comment on above: Performed By: #### C DP #### [address] [address] Theater Set Production Designer: Alexey Green MD Neutrophil (Seg) 61 % Normal 36-65 [facility] Comment on above: Performed By: #### C DP #### [address] [address] Theater Set Production Designer: Alexey Green MD NRBC Automated 0.2 per 100 WBC High 0.0 [facility] Comment on above: Performed By: #### C DP #### [address] [address] Theater Set Production Designer: Alexey Green MD Platelet Count See Reflexed IPF Result Normal 138-453 [facility] Comment on above: Performed By: #### C DP #### [address] [address] Theater Set Production Designer: Alexey Green MD Platelet, Fluoresc. 133 k/uL Low 138-453 [facility] Comment on above: Performed By: #### C DP #### [address] [address] Theater Set Production Designer: Alexey Green MD PLT, Immature Fract. 6.0 % Normal 1.1-10.3 [facility] Comment on above: Performed By: #### C DP #### [address] [address] Theater Set Production Designer: Alexey Green MD RBC (Bld) [#/Vol] 2.97 10*6/uL Low 3.95-5.11 [facility] Comment on above: Performed By: #### C DP #### [address] [address] Theater Set Production Designer: Alexey Green MD RBC morphology finding Nom (Bld) ANISOCYTOSIS PRESENT Normal [facility] Comment on above: Performed By: #### C DP #### [address] [address] Theater Set Production Designer: Alexey Green MD WBC (Bld) [#/Vol] 13.1 10*3/uL High 3.5-11.3 [facility] Comment on above: Performed By: #### C DP #### [address] [address] Theater Set Production Designer: Alexey Green MD Creatinine,Random Uron 07-25 Creatinine [Mass/Vol] 63.2 mg/dL Normal 28.0-217.0 [facility] Comment on above: Performed By: #### U RNA, URTP, URCRE, UEOS #### [address] [address] Theater Set Production Designer: Alexey Green MD Creatinine [Mass/Vol] 63.2 mg/dL Normal 28.0-217.0 [facility] Comment on above: Performed By: #### C DP, BMP #### [address] [address] Theater Set Production Designer: Alexey Green MD Eosinophils, Urineon 024 Eosinophils, Urine NONE SEEN Normal [facility] Comment on above: Performed By: #### U RNA, URTP, URCRE, UEOS #### [address] [address] Theater Set Production Designer: Alexey Green MD Eosinophils, Urine NONE SEEN Normal [facility] Comment on above: Performed By: #### C DP, BMP #### [address] [address] Theater Set Production Designer: Alexey Green MD Free [place] + Lambdaon 2023 Free [place] Lt Chains 95.5 mg/L High <20.8 [facility] Comment on above: Result Comment: Perf ormed using Diazyme reagent on [employer] Pro. Results obtained with different assay methods cannot be used interchangeably. Performed By: #### U RNA, URTP, URCRE, UEOS #### [facility] [employer] [address] [place] [address] Theater Set Production Designer: Alexey Green MD [place]/Lambda Rat 1.29 Normal 0.22-1.74 [facility] Comment on above: Performed By: #### U RNA, URTP, URCRE, UEOS #### [address] [address] Theater Set Production Designer: Alexey Green MD Free Lambda Lt Chains 74.1 mg/L High 4.2-27.7 [facility] Comment on above: Result Comment: Perf ormed using Diazyme reagent on [employer]. Results obtained with different assay methods cannot be used interchangeably. Performed By: #### U RNA, URTP, URCRE, UEOS #### [address] [address] Theater Set Production Designer: Alexey Green MD [place] Lt Chains 95.5 mg/L High <20.8 [facility] Comment on above: Result Comment: Perf ormed using Diazyme reagent on [employer]. Results obtained with different assay methods cannot be used interchangeably. Performed By: #### U ZACARIAS, UA #### [facility] [employer] [address] [place] [address] Theater Set Production Designer: Alexey Green MD [place]/Lambda Rat 1.29 Normal 0.22-1.74 [facility] Comment on above: Performed By: #### U KURTISO, UA #### [facility] [employer] [facility] [place] [address] Theater Set Production Designer: Alexey Green MD Free Lambda Lt Chains 74.1 mg/L High 4.2-27.7 [facility] Comment on above: Result Comment: Perf ormed using Diazyme reagent on [employer]. Results obtained with different assay methods cannot be used interchangeably. Performed By: #### U ZACARIAS, UA #### [address] [address] Theater Set Production Designer: Alexey Green MD Prot. Electroph, Blon 2023 Protein [Mass/Vol] 5.7 g/dL Low 6.6-8.7 [facility] Comment on above: Performed By: #### U RNA, URTP, URCRE, UEOS #### [place] [address] Theater Set Production Designer: Alexey Green MD Protein [Mass/Vol] 5.7 g/dL Low 6.6-8.7 [facility] Comment on above: Performed By: #### Tanja ADAMES, UA #### [place] [address] Theater Set Production Designer: Alexey Green MD Protein,Tot,Fleming Uron 2023 Tot Prot. Conc. 29 mg/dL Normal [facility] Comment on above: Result Comment: No n ormal range established. Performed By: #### U RNA, URTP, URCRE, UEOS #### [place] [address] Theater Set Production Designer: Alexey Green MD Tot Prot. Conc. 29 mg/dL Normal [facility] Comment on above: Result Comment: No n ormal range established. Performed By: #### C DP, BMP #### [place] [address] Theater Set Production Designer: Alexey Green MD Sodium, Random Uron 07-26-19 24 Sodium (U) [Moles/Vol] 32 mmol/L Normal [facility] Comment on above: Result Comment: No n ormal range established. Performed By: #### U RNA, URTP, URCRE, UEOS #### [facility] [address] [place] [address] Theater Set Production Designer: Alexey Green MD Sodium (U) [Moles/Vol] 32 mmol/L Normal [facility] Comment on above: Result Comment: No n ormal range established. Performed By: #### C DP, BMP #### [facility] [employer] [address] [place] [address] Theater Set Production Designer: Alexey Green MD US RENAL COMPLETEon 07-26-19 [...] Edmundo Morton MD 07/26/23 Final result Normal [facility] XR CHEST PORTABLEon 07-26-19 XR CHEST PORTABLE [...] Iam Mcknight MD 07/26/23 Final result Normal [facility] XR CHEST PORTABLE EXAMINATION: ONE XRAY VIEW [...] Iam Mcknight MD 07/26/23 Final result Normal [facility] Basic Metab w/rfx MGon 07-24 Anion gap [Moles/Vol] 11 mmol/L Normal 9-16 [facility] Comment on above: Performed By: #### B MPX #### [address] [address] Theater Set Production Designer: Alexey Green MD Calcium [Mass/Vol] 7.7 mg/dL Low 8.6-10.4 [facility] Comment on above: Performed By: #### B MPX #### [address] [address] Theater Set Production Designer: Alexey Green MD Chloride [Moles/Vol] 107 mmol/L Normal 98-107 [facility] Comment on above: Performed By: #### B MPX #### [facility] [employer] [address] [place] [address] Theater Set Production Designer: Alexey Green MD CO2 [Moles/Vol] 19 mmol/L Low 20-31 [facility] Comment on above: Performed By: #### B MPX #### [facility] [employer] [address] [place] [address] Theater Set Production Designer: Alexey Green MD Creatinine [Mass/Vol] 2.4 mg/dL High 0.50-0.90 [facility] Comment on above: Performed By: #### B MPX #### [facility] [employer] [address] [place] [address] Theater Set Production Designer: Alexey Green MD GFR/1.73 sq M.predicted among non-blacks MDRD (S/P/Bld) [Vol rate/Area] 19 mL/min/{1.73_m2} Low >60 [facility] Comment on above: Result Comment: These results [...] secretion. Performed By: #### B MPX #### [facility] [employer] [address] [place] [address] Theater Set Production Designer: Alexey Green MD Glucose [Mass/Vol] 188 mg/dL High 74-99 [facility] Comment on above: Performed By: #### B MPX #### [facility] [employer] [address] [place] [address] Theater Set Production Designer: Alexey Green MD Potassium [Moles/Vol] 5.1 mmol/L Normal 3.7-5.3 [facility] Comment on above: Performed By: #### B MPX #### [facility] [employer] [address] [place] [address] Theater Set Production Designer: Alexey Green MD Sodium [Moles/Vol] 137 mmol/L Normal 136-145 [facility] Comment on above: Performed By: #### B MPX #### [facility] [address] [place] [address] Theater Set Production Designer: Alexey Green MD Urea nitrogen [Mass/Vol] 42 mg/dL High 8-23 [facility] Comment on above: Performed By: #### B MPX #### [address] [address] Theater Set Production Designer: Alexey Green MD Anion gap [Moles/Vol] 11 mmol/L Normal 9-16 [facility] Comment on above: Performed By: #### B MPX #### [address] [address] Theater Set Production Designer: Alexey Green MD Calcium [Mass/Vol] 7.7 mg/dL Low 8.6-10.4 [facility] Comment on above: Performed By: #### B MPX #### [address] [address] Theater Set Production Designer: Alexey Green MD Chloride [Moles/Vol] 107 mmol/L Normal 98-107 [facility] Comment on above: Performed By: #### B MPX #### [address] [address] Theater Set Production Designer: Alexey Green MD CO2 [Moles/Vol] 19 mmol/L Low 20-31 [facility] Comment on above: Performed By: #### B MPX #### [address] [address] Theater Set Production Designer: Alexey Green MD Creatinine [Mass/Vol] 2.4 mg/dL High 0.50-0.90 [facility] Comment on above: Performed By: #### B MPX #### [address] [address] Theater Set Production Designer: Alexey Green MD GFR/1.73 sq M.predicted among non-blacks MDRD (S/P/Bld) [Vol rate/Area] 19 mL/min/{1.73_m2} Low >60 [facility] Comment on above: Result Comment: These results [...] secretion. Performed By: #### B MPX #### [address] [address] Theater Set Production Designer: Alexey Green MD Glucose [Mass/Vol] 188 mg/dL High 74-99 [facility] Comment on above: Performed By: #### B MPX #### [address] [address] Theater Set Production Designer: Alexey Green MD Potassium [Moles/Vol] 5.1 mmol/L Normal 3.7-5.3 [facility] Comment on above: Performed By: #### B MPX #### [address] [address] Theater Set Production Designer: Alexey Green MD Sodium [Moles/Vol] 137 mmol/L Normal 136-145 [facility] Comment on above: Performed By: #### B MPX #### [address] [address] Theater Set Production Designer: Alexey Green MD Urea nitrogen [Mass/Vol] 42 mg/dL High 8-23 [facility] Comment on above: Performed By: #### B MPX #### [address] [address] Theater Set Production Designer: Alexey Green MD Basic Metabolic Profon 07-24 Anion gap [Moles/Vol] 10 mmol/L Normal 9-16 [facility] Comment on above: Performed By: #### C DP, BMP #### [address] [address] Theater Set Production Designer: Alexey Green MD Calcium [Mass/Vol] 7.6 mg/dL Low 8.6-10.4 [facility] Comment on above: Performed By: #### C DP, BMP #### [facility] [address] [place] [address] Theater Set Production Designer: Alexey Green MD Chloride [Moles/Vol] 108 mmol/L High 98-107 [facility] Comment on above: Performed By: #### C DP, BMP #### [facility] [address] [place] [address] Theater Set Production Designer: Alexey Green MD CO2 [Moles/Vol] 21 mmol/L Normal 20-31 [facility] Comment on above: Performed By: #### C DP, BMP #### [facility] [employer] [facility] [address] [place] [address] Theater Set Production Designer: Alexey Green MD Creatinine [Mass/Vol] 2.3 mg/dL High 0.50-0.90 [facility] Comment on above: Performed By: #### C DP, BMP #### [address] [address] Theater Set Production Designer: Alexey Green MD GFR/1.73 sq M.predicted among non-blacks MDRD (S/P/Bld) [Vol rate/Area] 20 mL/min/{1.73_m2} Low >60 [facility] Comment on above: Result Comment: These results [...] Performed By: #### C DP, BMP #### [address] [address] Theater Set Production Designer: Alexey Green MD Glucose [Mass/Vol] 130 mg/dL High 74-99 [facility] Comment on above: Performed By: #### C DP, BMP #### [facility] [employer] [address] [place] [address] Theater Set Production Designer: Alexey Green MD Potassium [Moles/Vol] 5.3 mmol/L Normal 3.7-5.3 [facility] Comment on above: Performed By: #### C DP, BMP #### [facility] [employer] [address] [place] [address] Theater Set Production Designer: Alexey Green MD Sodium [Moles/Vol] 139 mmol/L Normal 136-145 [facility] Comment on above: Performed By: #### C DP, BMP #### [facility] [employer] [address] [place] [address] Theater Set Production Designer: Alexey Green MD Urea nitrogen [Mass/Vol] 41 mg/dL High 8-23 [facility] Comment on above: Performed By: #### C DP, BMP #### [facility] [employer] [address] [place] [address] Theater Set Production Designer: Alexey Green MD Anion gap [Moles/Vol] 10 mmol/L Normal 9-16 [facility] Comment on above: Performed By: #### C DP, BMP #### [facility] [address] [place] [address] [employer] Production Designer: Alexey Green MD Calcium [Mass/Vol] 7.6 mg/dL Low 8.6-10.4 [facility] Comment on above: Performed By: #### C DP, BMP #### [facility] [employer] [address] [place] [address] [employer] Set Production Designer: Alexey Green MD Chloride [Moles/Vol] 108 mmol/L High 98-107 [facility] Comment on above: Performed By: #### C DP, BMP #### [facility] [address] [place] [address] [employer] Set Production Designer: Alexey Green MD CO2 [Moles/Vol] 21 mmol/L Normal 20-31 [facility] Comment on above: Performed By: #### C DP, BMP #### [facility] [employer] [address] [place] [address] Theater Set Production Designer: Alexey Green MD Creatinine [Mass/Vol] 2.3 mg/dL High 0.50-0.90 [facility] Comment on above: Performed By: #### C DP, BMP #### [address] [address] [employer] Set Production Designer: Alexey Green MD GFR/1.73 sq M.predicted among non-blacks MDRD (S/P/Bld) [Vol rate/Area] 20 mL/min/{1.73_m2} Low >60 [facility] Comment on above: Result Comment: These results [...] Performed By: #### C DP, BMP #### [address] [address] Theater Set Production Designer: Alexey Green MD Glucose [Mass/Vol] 130 mg/dL High 74-99 [facility] Comment on above: Performed By: #### C DP, BMP #### [facility] [employer] [address] [place] [address] [employer] Set Production Designer: Alexey Green MD Potassium [Moles/Vol] 5.3 mmol/L Normal 3.7-5.3 [facility] Comment on above: Performed By: #### C DP, BMP #### [facility] [employer] [address] [place] [address] [employer] Production Designer: Alexey Green MD Sodium [Moles/Vol] 139 mmol/L Normal 136-145 [facility] Comment on above: Performed By: #### C DP, BMP #### [place] [address] [employer] Production Designer: Alexey Green MD Urea nitrogen [Mass/Vol] 41 mg/dL High 8-23 [facility] Comment on above: Performed By: #### C DP, BMP #### [place] [address] [employer] Production Designer: Alexey Green MD CBC with Diffon 07-25-2023 Abs. Basophil 0.03 k/uL Normal 0.00-0.20 [facility] Comment on above: Performed By: #### C DP, BMP #### [place] [address] [employer] Production Designer: Alexey Green MD Abs.Imm.Granulocyte 0.03 k/uL Normal 0.00-0.30 [facility] Comment on above: Performed By: #### C DP, BMP #### [place] [address] [employer] Set Production Designer: Alexey Green MD Abs.Neutrophil (Seg) 6.37 k/uL Normal 1.50-8.10 [facility] Comment on above: Performed By: #### C DP, BMP #### [place] [address] [employer] Production Designer: Alexey Green MD Basophils/100 WBC (Bld) 0 % Normal 0-2 [facility] Comment on above: Performed By: #### C DP, BMP #### [place] [address] [employer] Production Designer: Alexey Green MD Eosinophils (Bld) [#/Vol] 0.30 10*3/uL Normal 0.00-0.44 [facility] Comment on above: Performed By: #### C DP, BMP #### [address] [address] [employer] Set Production Designer: Alexey Green MD Eosinophils/100 WBC (Bld) 3 % Normal 1-4 [facility] Comment on above: Performed By: #### C DP, BMP #### [place] [address] [employer] Production Designer: Alexey Green MD Erythrocyte distribution width (RBC) [Ratio] 13.5 % Normal 11.8-14.4 [facility] Comment on above: Performed By: #### C DP, BMP #### [place] [address] [employer] Production Designer: Alexey Green MD Hematocrit (Bld) [Volume fraction] 28.3 % Low 36.3-47.1 [facility] Comment on above: Performed By: #### C DP, BMP #### [place] [address] [employer] Production Designer: Alexey Green MD Hemoglobin (Bld) [Mass/Vol] 8.2 g/dL Low 11.9-15.1 [facility] Comment on above: Performed By: #### C DP, BMP #### [address] [address] [employer] Production Designer: Alexey Green MD Immature granulocytes/100 WBC (Bld) 0 % Normal 0 [facility] Comment on above: Performed By: #### C DP, BMP #### [place] [address] [employer] Production Designer: Alexey Green MD Lymphocytes (Bld) [#/Vol] 3.86 10*3/uL High 1.10-3.70 [facility] Comment on above: Performed By: #### C DP, BMP #### [address] [address] [employer] Set Production Designer: Alexey Green MD Lymphocytes/100 WBC (Bld) 33 % Normal 24-43 [facility] Comment on above: Performed By: #### C DP, BMP #### [address] [address] [employer] Set Production Designer: Alexey Green MD MCH (RBC) [Entitic mass] 31.5 pg Normal 25.2-33.5 [facility] Comment on above: Performed By: #### C DP, BMP #### [address] [address] [employer] Set Production Designer: Alexye Green MD MCHC (RBC) [Mass/Vol] 29.0 g/dL Normal 28.4-34.8 [facility] Comment on above: Performed By: #### C DP, BMP #### [address] [address] Theater Set Production Designer: Alexey Green MD MCV (RBC) [Entitic vol] 108.8 fL High 82.6-102.9 [facility] Comment on above: Performed By: #### C DP, BMP #### [address] [address] Theater Set Production Designer: Alexey Green MD Monocytes (Bld) [#/Vol] 1.19 10*3/uL Normal 0.10-1.20 [facility] Comment on above: Performed By: #### C DP, BMP #### [address] [address] [employer] Set Production Designer: Alexey Green MD Monocytes/100 WBC (Bld) 10 % Normal 3-12 [facility] Comment on above: Performed By: #### C DP, BMP #### [address] [address] Theater Set Production Designer: Alexey Green MD Neutrophil (Seg) 54 % Normal 36-65 [facility] Comment on above: Performed By: #### C DP, BMP #### [address] [address] [employer] Set Production Designer: Alexey Green MD NRBC Automated 0.0 per 100 WBC Normal 0.0 [facility] Comment on above: Performed By: #### C DP, BMP #### [address] [address] [employer] Production Designer: Alexey Green MD Platelet mean volume (Bld) [Entitic vol] 11.8 fL Normal 8.1-13.5 [facility] Comment on above: Performed By: #### C DP, BMP #### [address] [address] [employer] Production Designer: Alexey Green MD Platelets (Bld) [#/Vol] 148 10*3/uL Normal 138-453 [facility] Comment on above: Performed By: #### C DP, BMP #### [address] [address] [employer] Production Designer: Alexey Green MD RBC (Bld) [#/Vol] 2.60 10*6/uL Low 3.95-5.11 [facility] Comment on above: Performed By: #### C DP, BMP #### [address] [address] [employer] Production Designer: Alexey Green MD RBC morphology finding Nom (Bld) MACROCYTOSIS PRESENT Normal [facility] Comment on above: Performed By: #### C DP, BMP #### [address] [address] [employer] Production Designer: Alexey Green MD WBC (Bld) [#/Vol] 11.8 10*3/uL High 3.5-11.3 [facility] Comment on above: Performed By: #### C DP, BMP #### [facility] [employer] [address] [place] [address] Theater [employer] Production Designer: Alexey Green MD Abs. Basophil 0.03 k/uL Normal 0.00-0.20 [facility] Comment on above: Performed By: #### C DP, BMP #### [address] [address] Theater Set Production Designer: Alexey Green MD Abs.Imm.Granulocyte 0.03 k/uL Normal 0.00-0.30 [facility] Comment on above: Performed By: #### C DP, BMP #### [facility] [employer] [address] [place] [address] [employer] Production Designer: Alexey Green MD Abs.Neutrophil (Seg) 6.37 k/uL Normal 1.50-8.10 [facility] Comment on above: Performed By: #### C DP, BMP #### [facility] [employer] [address] [place] [address] [employer] Production Designer: Alexey Green MD Basophils/100 WBC (Bld) 0 % Normal 0-2 [facility] Comment on above: Performed By: #### C DP, BMP #### [facility] [employer] [address] [place] [address] [employer] Production Designer: Alexey Green MD Eosinophils (Bld) [#/Vol] 0.30 10*3/uL Normal 0.00-0.44 [facility] Comment on above: Performed By: #### C DP, BMP #### [facility] [employer] [address] [place] [address] [employer] Production Designer: Alexey Green MD Eosinophils/100 WBC (Bld) 3 % Normal 1-4 [facility] Comment on above: Performed By: #### C DP, BMP #### [facility] [employer] [address] [place] [address] [employer] Production Designer: Alexey Green MD Erythrocyte distribution width (RBC) [Ratio] 13.5 % Normal 11.8-14.4 [facility] Comment on above: Performed By: #### C DP, BMP #### [address] [address] [employer] Production Designer: Alexey Green MD Hematocrit (Bld) [Volume fraction] 28.3 % Low 36.3-47.1 [facility] Comment on above: Performed By: #### C DP, BMP #### [address] [address] [employer] Set Production Designer: Alexey Green MD Hemoglobin (Bld) [Mass/Vol] 8.2 g/dL Low 11.9-15.1 [facility] Comment on above: Performed By: #### C DP, BMP #### [address] [address] [employer] Production Designer: Alexey Green MD Immature granulocytes/100 WBC (Bld) 0 % Normal 0 [facility] Comment on above: Performed By: #### C DP, BMP #### [address] [address] [employer] Production Designer: Alexey Green MD Lymphocytes (Bld) [#/Vol] 3.86 10*3/uL High 1.10-3.70 [facility] Comment on above: Performed By: #### C DP, BMP #### [address] [address] [employer] Production Designer: Alexey Green MD Lymphocytes/100 WBC (Bld) 33 % Normal 24-43 [facility] Comment on above: Performed By: #### C DP, BMP #### [address] [address] [employer] Production Designer: Alexey Green MD MCH (RBC) [Entitic mass] 31.5 pg Normal 25.2-33.5 [facility] Comment on above: Performed By: #### C DP, BMP #### [address] [address] [employer] Production Designer: Alexey Green MD MCHC (RBC) [Mass/Vol] 29.0 g/dL Normal 28.4-34.8 [facility] Comment on above: Performed By: #### C DP, BMP #### [address] [address] [employer] Production Designer: Alexey Green MD MCV (RBC) [Entitic vol] 108.8 fL High 82.6-102.9 [facility] Comment on above: Performed By: #### C DP, BMP #### [address] [address] [employer] Set Production Designer: Alexey Green MD Monocytes (Bld) [#/Vol] 1.19 10*3/uL Normal 0.10-1.20 [facility] Comment on above: Performed By: #### C DP, BMP #### [address] [address] [employer] Production Designer: Alexey Green MD Monocytes/100 WBC (Bld) 10 % Normal 3-12 [facility] Comment on above: Performed By: #### C DP, BMP #### [address] [address] [employer] Production Designer: Alexey Green MD Neutrophil (Seg) 54 % Normal 36-65 [facility] Comment on above: Performed By: #### C DP, BMP #### [address] [address] [employer] Production Designer: Alexey Green MD NRBC Automated 0.0 per 100 WBC Normal 0.0 [facility] Comment on above: Performed By: #### C DP, BMP #### [address] [place] [address] [employer] Production Designer: Alexey Green MD Platelet mean volume (Bld) [Entitic vol] 11.8 fL Normal 8.1-13.5 [facility] Comment on above: Performed By: #### C DP, BMP #### [address] [address] [employer] Production Designer: Alexey Green MD Platelets (Bld) [#/Vol] 148 10*3/uL Normal 138-453 [facility] Comment on above: Performed By: #### C DP, BMP #### [address] [address] [employer] Production Designer: Alexey Green MD RBC (Bld) [#/Vol] 2.60 10*6/uL Low 3.95-5.11 [facility] Comment on above: Performed By: #### C DP, BMP #### [address] [address] [employer] Production Designer: Alexey Green MD RBC morphology finding Nom (Bld) MACROCYTOSIS PRESENT Normal [facility] Comment on above: Performed By: #### C DP, BMP #### [address] [address] [employer] Production Designer: Alexey Green MD WBC (Bld) [#/Vol] 11.8 10*3/uL High 3.5-11.3 [facility] Comment on above: Performed By: #### C DP, BMP #### [address] [address] [employer] Set Production Designer: Alexey Green MD Calcium, Ionicon 07-25-2023 Calcium [Moles/Vol] 1.20 mmol/L Normal 1.13-1.33 [facility] Comment on above: Performed By: #### B MPX #### [address] [address] [employer] Set Production Designer: Alexey Green MD Calcium [Moles/Vol] 1.20 mmol/L Normal 1.13-1.33 [facility] Comment on above: Performed By: #### U MICAO, UA #### [address] [address] [employer] Production Designer: Alexey Green MD Hgb/Hcton 07-25-2023 Hematocrit (Bld) [Volume fraction] 33.2 % Low 36.3-47.1 [facility] Comment on above: Performed By: #### U RNA, URTP, URCRE, UEOS #### [address] [address] [employer] Set Production Designer: Alexey Green MD Performed By: #### H H #### [address] [address] [employer] Set Production Designer: Alexey Green MD Hemoglobin (Bld) [Mass/Vol] 9.4 g/dL Low 11.9-15.1 [facility] Comment on above: Performed By: #### U RNA, URTP, URCRE, UEOS #### [address] [address] Theater Set Production Designer: Alexey Green MD Performed By: #### H H #### [address] [address] [employer] Production Designer: Alexey Green MD Hematocrit (Bld) [Volume fraction] 26.7 % Low 36.3-47.1 [facility] Comment on above: Performed By: #### U RNA, URTP, URCRE, UEOS #### [address] [address] [employer] Set Production Designer: Alexey Green MD Hemoglobin (Bld) [Mass/Vol] 7.6 g/dL Low 11.9-15.1 [facility] Comment on above: Performed By: #### U RNA, URTP, URCRE, UEOS #### [address] [address] [employer] Set Production Designer: Alexey Green MD Hematocrit (Bld) [Volume fraction] 26.7 % Low 36.3-47.1 [facility] Comment on above: Performed By: #### C DP #### [address] [address] [employer] Set Production Designer: Alexey Green MD Hemoglobin (Bld) [Mass/Vol] 7.6 g/dL Low 11.9-15.1 [facility] Comment on above: Performed By: #### C DP #### [address] [address] [employer] Production Designer: Alexey Green MD Urinalysis, Routineon 2023 Bilirubin, SemiQt,Ur Negative Normal NEG [facility] Comment on above: Performed By: #### U MICAO, UA #### [address] [address] [employer] Production Designer: Alexey Green MD Blood, Urine Negative Normal NEG [facility] Comment on above: Performed By: #### U MICAO, UA #### [address] [address] [employer] Production Designer: Alexey Green MD Clarity (U) Clear Normal CLEAR [facility] Comment on above: Performed By: #### U MICAO, UA #### [address] [id number] Theater [employer] Production Designer: Alexey Green MD Color (U) Yellow Normal YEL [facility] Comment on above: Performed By: #### U MICAO, UA #### [address] [id number] [employer] Production Designer: Alexey Green MD Glucose Ql (U) Negative Normal NEG [facility] Comment on above: Performed By: #### U MICAO, UA #### [facility] [address] [place] [address] [employer] Production Designer: Alexey Green MD Ketones Ql (U) Negative Normal NEG [facility] Comment on above: Performed By: #### U MICAO, UA #### [facility] [employer] [address] [place] [address] [employer] Production Designer: Alexey Green MD Leukocyte esterase Test strip Ql (U) MODERATE Abnormal NEG [facility] Comment on above: Performed By: #### U MICAO, UA #### [facility] [employer] [address] [place] [address] [employer] Production Designer: Alexey Green MD Nitrite,Ur Negative Normal NEG [facility] Comment on above: Performed By: #### U MICAO, UA #### [facility] [employer] [address] [place] [address] [employer] Production Designer: Alexey Green MD PH,Ur 5.0 Normal 5.0-8.0 [facility] Comment on above: Performed By: #### U MICAO, UA #### [facility] [employer] [address] [place] [address] [employer] Production Designer: Alexey Green MD Protein Ql (U) 1+ mg/dL Abnormal NEG [facility] Comment on above: Performed By: #### U MICAO, UA #### [facility] [address] [place] [address] [employer] Production Designer: Alexey Green MD Spec. Adrian,Ur 1.025 Normal 1.005-1.030 [facility] Comment on above: Performed By: #### U MICAO, UA #### [facility] [employer] [address] [place] [address] [employer] Production Designer: Alexey Green MD Urobilinogen,Ur Normal Normal 0.0-1.0 [facility] Comment on above: Performed By: #### U MICAO, UA #### [facility] [address] [place] [address] [employer] Set Production Designer: Alexey Green MD Bilirubin, SemiQt,Ur Negative Normal NEG [facility] Comment on above: Performed By: #### U MICAO, UA #### [address] [address] [employer] Set Production Designer: Alexey Green MD Blood, Urine Negative Normal NEG [facility] Comment on above: Performed By: #### U MICAO, UA #### [address] [address] [employer] Production Designer: Alexey Green MD Clarity (U) Clear Normal CLEAR [facility] Comment on above: Performed By: #### U MICAO, UA #### [address] [address] [employer] Production Designer: Alexey Green MD Color (U) Yellow Normal YEL [facility] Comment on above: Performed By: #### U MICAO, UA #### [address] [address] [employer] Set Production Designer: Alexey Green MD Glucose Ql (U) Negative Normal NEG [facility] Comment on above: Performed By: #### U MICAO, UA #### [facility] [employer] [address] [place] [address] [employer] Production Designer: Alexey Green MD Ketones Ql (U) Negative Normal NEG [facility] Comment on above: Performed By: #### U MICAO, UA #### [address] [address] [employer] Production Designer: Alexey Green MD Leukocyte esterase Test strip Ql (U) MODERATE Abnormal NEG [facility] Comment on above: Performed By: #### U MICAO, UA #### [facility] [employer] [address] [place] [address] [employer] Production Designer: Alexey Green MD Nitrite,Ur Negative Normal NEG [facility] Comment on above: Performed By: #### U MICAO, UA #### [facility] [employer] [address] [place] [address] [employer] Set Production Designer: Alexey Green MD PH,Ur 5.0 Normal 5.0-8.0 [facility] Comment on above: Performed By: #### U MICAO, UA #### [facility] [employer] [address] [place] [address] [employer] Production Designer: Alexey Green MD Protein Ql (U) 1+ mg/dL Abnormal NEG [facility] Comment on above: Performed By: #### U MICAO, UA #### [address] [address] [employer] Production Designer: Alexey Green MD Spec. Adrian,Ur 1.025 Normal 1.005-1.030 [facility] Comment on above: Performed By: #### U MICAO, UA #### [address] [address] [employer] Production Designer: Alexey Green MD Urobilinogen,Ur Normal Normal 0.0-1.0 [facility] Comment on above: Performed By: #### U MICAO, UA #### [address] [address] [employer] Production Designer: Alexey Green MD Urinalysis,Microon 4 Bacteria None Normal NONE [facility] Comment on above: Performed By: #### U MICAO, UA #### [address] [address] [employer] Production Designer: Alexey Green MD Casts None Normal 0-8 [facility] Comment on above: Result Comment: Refe rence range defined for non-centrifuged specimen. Performed By: #### U MICAO, UA #### [address] [address] [employer] Production Designer: Alexey Green MD Epithelial cells LM Ql (Urine sed) 2 TO 5 Normal 0-5 [facility] Comment on above: Performed By: #### U MICAO, UA #### [address] [address] [employer] Set Production Designer: Alexey Green MD Urine RBC's 2 TO 5 Normal 0-4 [facility] Comment on above: Result Comment: Refe rence range defined for non-centrifuged specimen. Performed By: #### U MICAO, UA #### [address] [address] [employer] Set Production Designer: Alexey Green MD Urine WBC's 20 TO 50 Normal 0-5 [facility] Comment on above: Performed By: #### U MICAO, UA #### [address] [address] [employer] Production Designer: Alexey Green MD Bacteria None Normal NONE [facility] Comment on above: Performed By: #### U MICAO, UA #### [address] [address] [employer] Production Designer: Alexey Green MD Casts None Normal 0-8 [facility] Comment on above: Result Comment: Refe rence range defined for non-centrifuged specimen. Performed By: #### U MICAO, UA #### [address] [address] [employer] Production Designer: Alexey Green MD Epithelial cells LM Ql (Urine sed) 2 TO 5 Normal 0-5 [facility] Comment on above: Performed By: #### U MICAO, UA #### [address] [address] [employer] Production Designer: Alexey Green MD Urine RBC's 2 TO 5 Normal 0-4 [facility] Comment on above: Result Comment: Refe rence range defined for non-centrifuged specimen. Performed By: #### U MICAO, UA #### [address] [address] [employer] Production Designer: Alexey Green MD Urine WBC's 20 TO 50 Normal 0-5 [facility] Comment on above: Performed By: #### U MICAO, UA #### [address] [address] [employer] Production Designer: Alexey Green MD Basic Metabolic Profon 07-23 Anion gap [Moles/Vol] 8 mmol/L Low 9-16 [facility] Comment on above: Performed By: #### U RNA, URTP, URCRE, UEOS #### [address] [address] [employer] Production Designer: Alexey Green MD Calcium [Mass/Vol] 8.3 mg/dL Low 8.6-10.4 [facility] Comment on above: Performed By: #### U RNA, URTP, URCRE, UEOS #### [address] [address] [employer] Production Designer: Alexey Green MD Chloride [Moles/Vol] 110 mmol/L High 98-107 [facility] Comment on above: Performed By: #### U RNA, URTP, URCRE, UEOS #### [address] [address] [employer] Production Designer: Alexey Green MD CO2 [Moles/Vol] 22 mmol/L Normal 20-31 [facility] Comment on above: Performed By: #### U RNA, URTP, URCRE, UEOS #### [address] [address] [employer] Production Designer: Alexey Green MD Creatinine [Mass/Vol] 2.0 mg/dL High 0.50-0.90 [facility] Comment on above: Performed By: #### U RNA, URTP, URCRE, UEOS #### [address] [address] [employer] Production Designer: Alexey Green MD GFR/1.73 sq M.predicted among non-blacks MDRD (S/P/Bld) [Vol rate/Area] 24 mL/min/{1.73_m2} Low >60 [facility] Comment on above: Result Comment: These results [...] #### U RNA, URTP, URCRE, UEOS #### [facility] [facility] [employer] [address] [place] [address] Theater Set Production Designer: Alexey Green MD Glucose [Mass/Vol] 108 mg/dL High 74-99 [facility] Comment on above: Performed By: #### U RNA, URTP, URCRE, UEOS #### [facility] [employer] [address] [place] [address] Theater Set Production Designer: Alexey Green MD Potassium [Moles/Vol] 5.0 mmol/L Normal 3.7-5.3 [facility] Comment on above: Result Comment: SPEC IMEN SLIGHTLY HEMOLYZED, RESULTS MAY BE ADVERSELY AFFECTED. Performed By: #### U RNA, URTP, URCRE, UEOS #### [facility] [employer] [address] [place] [address] [phone] Theater Set Production Designer: Alexey Green MD Sodium [Moles/Vol] 140 mmol/L Normal 136-145 [facility] Comment on above: Performed By: #### U RNA, URTP, URCRE, UEOS #### [facility] [employer] [address] [place] [address] Theater Set Production Designer: Alexey Green MD Urea nitrogen [Mass/Vol] 41 mg/dL High 8-23 [facility] Comment on above: Performed By: #### U RNA, URTP, URCRE, UEOS #### [facility] [employer] [address] [place] [address] Theater Set Production Designer: Alexey Green MD Anion gap [Moles/Vol] 8 mmol/L Low 9-16 [facility] Comment on above: Performed By: #### U ZACARIAS UA #### [facility] [employer] [address] [place] [address] Theater Set Production Designer: Alexey Green MD Calcium [Mass/Vol] 8.3 mg/dL Low 8.6-10.4 [facility] Comment on above: Performed By: #### U ZACARIAS UA #### [facility] [employer] [address] [place] [address] Theater Set Production Designer: Alexey Green MD Chloride [Moles/Vol] 110 mmol/L High 98-107 [facility] Comment on above: Performed By: #### U KURTISO UA #### [facility] [address] [place] [address] Theater Set Production Designer: Alexey Green MD CO2 [Moles/Vol] 22 mmol/L Normal 20-31 [facility] Comment on above: Performed By: #### U KURTISO, UA #### [facility] [employer] [address] [place] [address] Theater Set Production Designer: Alexey Green MD Creatinine [Mass/Vol] 2.0 mg/dL High 0.50-0.90 [facility] Comment on above: Performed By: #### U KURTISO, UA #### [facility] [address] [place] [address] [phone] Theater Set Production Designer: Alexey Green MD GFR/1.73 sq M.predicted among non-blacks MDRD (S/P/Bld) [Vol rate/Area] 24 mL/min/{1.73_m2} Low >60 [facility] Comment on above: Result Comment: These results [...] Performed By: #### U KURTISO UA #### [facility] [address] [address] Theater Set Production Designer: Alexey Green MD Glucose [Mass/Vol] 108 mg/dL High 74-99 [facility] Comment on above: Performed By: #### U ZACARIAS UA #### [address] [address] Theater Set Production Designer: Alexey Green MD Potassium [Moles/Vol] 5.0 mmol/L Normal 3.7-5.3 [facility] Comment on above: Result Comment: SPEC IMEN SLIGHTLY HEMOLYZED, RESULTS MAY BE ADVERSELY AFFECTED. Performed By: #### U MICAO, UA #### [employer] [address] [place] [address] Theater Set Production Designer: Alexey Green MD Sodium [Moles/Vol] 140 mmol/L Normal 136-145 [facility] Comment on above: Performed By: #### U KURTISO, UA #### [employer] [address] [place] [address] Theater Set Production Designer: Alexey Green MD Urea nitrogen [Mass/Vol] 41 mg/dL High 8-23 [facility] Comment on above: Performed By: #### U MICAO, UA #### [address] [address] Theater Set Production Designer: Alexey Green MD CBC with Diffon 07-24-2023 Abs. Basophil 0.04 k/uL Normal 0.00-0.20 [facility] Comment on above: Performed By: #### C DP #### [address] [address] Theater Set Production Designer: Alexey Green MD Abs.Imm.Granulocyte 0.03 k/uL Normal 0.00-0.30 [facility] Comment on above: Performed By: #### C DP #### [address] [address] Theater Set Production Designer: Alexey Green MD Abs.Neutrophil (Seg) 4.06 k/uL Normal 1.50-8.10 [facility] Comment on above: Performed By: #### C DP #### [address] [address] Theater Set Production Designer: Alexey Green MD Basophils/100 WBC (Bld) 0 % Normal 0-2 [facility] Comment on above: Performed By: #### C DP #### [address] [address] Theater Set Production Designer: Aelxey Green MD Eosinophils (Bld) [#/Vol] 0.37 10*3/uL Normal 0.00-0.44 [facility] Comment on above: Performed By: #### C DP #### [address] [address] Theater Set Production Designer: Alexey Green MD Eosinophils/100 WBC (Bld) 4 % Normal 1-4 [facility] Comment on above: Performed By: #### C DP #### [address] [address] Theater Set Production Designer: Alexey Green MD Erythrocyte distribution width (RBC) [Ratio] 13.5 % Normal 11.8-14.4 [facility] Comment on above: Performed By: #### C DP #### [address] [address] Theater Set Production Designer: Alexey Green MD Hematocrit (Bld) [Volume fraction] 32.8 % Low 36.3-47.1 [facility] Comment on above: Performed By: #### C DP #### [place] [address] Theater Set Production Designer: Alexey Green MD Hemoglobin (Bld) [Mass/Vol] 9.4 g/dL Low 11.9-15.1 [facility] Comment on above: Performed By: #### C DP #### [place] [address] Theater Set Production Designer: Alexey Green MD Immature granulocytes/100 WBC (Bld) 0 % Normal 0 [facility] Comment on above: Performed By: #### C DP #### [address] [address] Theater Set Production Designer: Alexey Green MD Lymphocytes (Bld) [#/Vol] 4.07 10*3/uL High 1.10-3.70 [facility] Comment on above: Performed By: #### C DP #### [address] [address] Theater Set Production Designer: Alexey Green MD Lymphocytes/100 WBC (Bld) 42 % Normal 24-43 [facility] Comment on above: Performed By: #### C DP #### [address] [address] Theater Set Production Designer: Alexey Green MD MCH (RBC) [Entitic mass] 31.1 pg Normal 25.2-33.5 [facility] Comment on above: Performed By: #### C DP #### [address] [address] Theater Set Production Designer: Alexey Green MD MCHC (RBC) [Mass/Vol] 28.7 g/dL Normal 28.4-34.8 [facility] Comment on above: Performed By: #### C DP #### [address] [address] Theater Set Production Designer: Alexey Green MD MCV (RBC) [Entitic vol] 108.6 fL High 82.6-102.9 [facility] Comment on above: Performed By: #### C DP #### [address] [address] Theater Set Production Designer: Alexey Green MD Monocytes (Bld) [#/Vol] 1.24 10*3/uL High 0.10-1.20 [facility] Comment on above: Performed By: #### C DP #### [address] [address] Theater Set Production Designer: Alexey Green MD Monocytes/100 WBC (Bld) 13 % High 3-12 [facility] Comment on above: Performed By: #### C DP #### [address] [address] Theater Set Production Designer: Alexey Green MD Neutrophil (Seg) 41 % Normal 36-65 [facility] Comment on above: Performed By: #### C DP #### [address] [address] Theater Set Production Designer: Alexey Green MD NRBC Automated 0.0 per 100 WBC Normal 0.0 [facility] Comment on above: Performed By: #### C DP #### [place] [address] Theater Set Production Designer: Alexey Green MD Platelet mean volume (Bld) [Entitic vol] 11.6 fL Normal 8.1-13.5 [facility] Comment on above: Performed By: #### C DP #### [address] [address] Theater Set Production Designer: Alexey Green MD Platelets (Bld) [#/Vol] 168 10*3/uL Normal 138-453 [facility] Comment on above: Performed By: #### C DP #### [address] [address] Theater Set Production Designer: Alexey Green MD RBC (Bld) [#/Vol] 3.02 10*6/uL Low 3.95-5.11 [facility] Comment on above: Performed By: #### C DP #### [address] [address] Theater Set Production Designer: Alexey Green MD RBC morphology finding Nom (Bld) MACROCYTOSIS PRESENT Normal [facility] Comment on above: Performed By: #### C DP #### [address] [address] Theater Set Production Designer: Alexey Green MD WBC (Bld) [#/Vol] 9.8 10*3/uL Normal 3.5-11.3 [facility] Comment on above: Performed By: #### C DP #### [address] [address] Theater Set Production Designer: Alexey Green MD Abs. Basophil 0.04 k/uL Normal 0.00-0.20 [facility] Comment on above: Performed By: #### C DP #### [address] [address] Theater Set Production Designer: Alexey Green MD Abs.Imm.Granulocyte 0.03 k/uL Normal 0.00-0.30 [facility] Comment on above: Performed By: #### C DP #### [address] [address] Theater Set Production Designer: Alexey Green MD Abs.Neutrophil (Seg) 4.06 k/uL Normal 1.50-8.10 [facility] Comment on above: Performed By: #### C DP #### [address] [address] Theater Set Production Designer: Alexey Green MD Basophils/100 WBC (Bld) 0 % Normal 0-2 [facility] Comment on above: Performed By: #### C DP #### [address] [address] Theater Set Production Designer: Alexey Green MD Eosinophils (Bld) [#/Vol] 0.37 10*3/uL Normal 0.00-0.44 [facility] Comment on above: Performed By: #### C DP #### [address] [address] Theater Set Production Designer: Alexey Green MD Eosinophils/100 WBC (Bld) 4 % Normal 1-4 [facility] Comment on above: Performed By: #### C DP #### [address] [address] Theater Set Production Designer: Alexey Green MD Erythrocyte distribution width (RBC) [Ratio] 13.5 % Normal 11.8-14.4 [facility] Comment on above: Performed By: #### C DP #### [address] [address] Theater Set Production Designer: Alexey Green MD Hematocrit (Bld) [Volume fraction] 32.8 % Low 36.3-47.1 [facility] Comment on above: Performed By: #### C DP #### [address] [address] Theater Set Production Designer: Alexey Green MD Hemoglobin (Bld) [Mass/Vol] 9.4 g/dL Low 11.9-15.1 [facility] Comment on above: Performed By: #### C DP #### [address] [address] Theater Set Production Designer: Alexey Green MD Immature granulocytes/100 WBC (Bld) 0 % Normal 0 [facility] Comment on above: Performed By: #### C DP #### [address] [address] Theater Set Production Designer: Alexey Green MD Lymphocytes (Bld) [#/Vol] 4.07 10*3/uL High 1.10-3.70 [facility] Comment on above: Performed By: #### C DP #### [address] [address] Theater Set Production Designer: Alexey Green MD Lymphocytes/100 WBC (Bld) 42 % Normal 24-43 [facility] Comment on above: Performed By: #### C DP #### [address] [address] Theater Set Production Designer: Alexey Green MD MCH (RBC) [Entitic mass] 31.1 pg Normal 25.2-33.5 [facility] Comment on above: Performed By: #### C DP #### [address] [address] Theater Set Production Designer: Alexey Green MD MCHC (RBC) [Mass/Vol] 28.7 g/dL Normal 28.4-34.8 [facility] Comment on above: Performed By: #### C DP #### [address] [address] Theater Set Production Designer: Alexey Green MD MCV (RBC) [Entitic vol] 108.6 fL High 82.6-102.9 [facility] Comment on above: Performed By: #### C DP #### [address] [address] Theater Set Production Designer: Alexey Green MD Monocytes (Bld) [#/Vol] 1.24 10*3/uL High 0.10-1.20 [facility] Comment on above: Performed By: #### C DP #### [address] [address] Theater Set Production Designer: Alexey Green MD Monocytes/100 WBC (Bld) 13 % High 3-12 [facility] Comment on above: Performed By: #### C DP #### [address] [address] Theater Set Production Designer: Alexey Green MD Neutrophil (Seg) 41 % Normal 36-65 [facility] Comment on above: Performed By: #### C DP #### [address] [address] Theater Set Production Designer: Alexey Green MD NRBC Automated 0.0 per 100 WBC Normal 0.0 [facility] Comment on above: Performed By: #### C DP #### [address] [address] Theater Set Production Designer: Alexey Green MD Platelet mean volume (Bld) [Entitic vol] 11.6 fL Normal 8.1-13.5 [facility] Comment on above: Performed By: #### C DP #### [address] [address] Theater Set Production Designer: Alexey Green MD Platelets (Bld) [#/Vol] 168 10*3/uL Normal 138-453 [facility] Comment on above: Performed By: #### C DP #### [address] [address] Theater Set Production Designer: Alexey Green MD RBC (Bld) [#/Vol] 3.02 10*6/uL Low 3.95-5.11 [facility] Comment on above: Performed By: #### C DP #### [address] [place] [address] Theater Set Production Designer: Alexey Green MD RBC morphology finding Nom (Bld) MACROCYTOSIS PRESENT Normal [facility] Comment on above: Performed By: #### C DP #### [facility] [employer] [facility] [place] [address] Theater Set Production Designer: Alexey Green MD WBC (Bld) [#/Vol] 9.8 10*3/uL Normal 3.5-11.3 [facility] Comment on above: Performed By: #### C DP #### [address] [address] Theater Set Production Designer: Alexey Green MD FLUORO FOR SURGICAL PROCEDUR ESon 07-24-2023 FLUORO FOR SURGICAL PROCEDURES Radiology exam is complete. No Radiologist dictation. Please follow up with ordering provider. Final result Normal [facility] FLUORO FOR SURGICAL PROCEDURES Radiology exam is complete. No Radiologist dictation. Please follow up with ordering provider. Final result Normal [facility] Glucose,Whole Bloodon 2023 Glucose [Mass/Vol] 102 mg/dL Normal 65-105 [facility] Glucose [Mass/Vol] 102 mg/dL Normal 65-105 [facility] Hgb/Hcton 07-24-2023 Hematocrit (Bld) [Volume fraction] 36.4 % Normal 36.3-47.1 [facility] Comment on above: Performed By: #### B MPX #### [address] [place] [address] Theater Set Production Designer: Alexey Green MD Hemoglobin (Bld) [Mass/Vol] 10.6 g/dL Low 11.9-15.1 [facility] Comment on above: Performed By: #### B MPX #### [address] [address] Theater Set Production Designer: Alexey Green MD Hematocrit (Bld) [Volume fraction] 36.4 % Normal 36.3-47.1 [facility] Comment on above: Performed By: #### C DP, BMP #### [address] [id number] Theater Set Production Designer: Alexey Green MD Hemoglobin (Bld) [Mass/Vol] 10.6 g/dL Low 11.9-15.1 [facility] Comment on above: Performed By: #### C DP, BMP #### [address] [address] Theater Set Production Designer: Alexey Green MD Type + Screenon 07-24-2023 Type + Screen Sample Expiration 07/26/2023,2359 Arm Band Number [id number] ABO/Rh(D) A POSITIVE Antibody Screen NEGATIVE Unit Number [id number] Blood Component Type Leukocyte Reduced Red Cell Unit Division 00 Status of Unit TRANSFUSED Transfusion Status OK TO TRANSFUSE Crossmatch Result COMPATIBLE Normal [facility] Comment on above: Performed By: #### U RNA, URTP, URCRE, UEOS #### [address] [id number] Theater Set Production Designer: Alexey Green MD Type + Screen Sample Expiration 07/26/2023,2359 Arm Band Number [id number] ABO/Rh(D) A POSITIVE Antibody Screen NEGATIVE Unit Number [id number] Blood Component Type Leukocyte Reduced Red Cell Unit Division 00 Status of Unit TRANSFUSED Transfusion Status OK TO TRANSFUSE Crossmatch Result COMPATIBLE Normal [facility] Comment on above: Performed By: #### U MICAO, UA #### [address] [address] Theater Set Production Designer: Alexey Green MD XR FEMUR LEFT (MIN [...] Will Ramirez MD 07/24/23 Final result Normal [facility] XR FEMUR LEFT (MIN 2 VIEWS) EXAMINATION: [...] Will Ramirez MD 07/24/23 Final result Normal [facility] Albuminon 07-23-2023 Albumin [Mass/Vol] 3.6 g/dL Normal 3.5-5.2 [facility] Comment on above: Performed By: #### U RNA, URTP, URCRE, UEOS #### [facility] [address] [place], [place] [phone] Theater Set Production Designer: Alexey Green MD Albumin [Mass/Vol] 3.6 g/dL Normal 3.5-5.2 [facility] Comment on above: Performed By: #### U MICAO, UA #### [employer] [address] [place], [place] [id number] Theater Set Production Designer: Alexey Green MD CT CERVICAL SPINE WO [...] Wilber Robertson MD 07/23/23 Final result Normal [facility] CT CERVICAL SPINE WO CONTRAST EXAMINATION: CT [...] Wilber Robertson MD 07/23/23 Final result Normal [facility] CT CHEST ABDOMEN PELVIS W CO NTRASTon [...] Will Ramirez MD 07/23/23 Final result Normal [facility] CT CHEST ABDOMEN PELVIS W CONTRAST EXAMINATION: [...] Will Ramirez MD 07/23/23 Final result Normal [facility] CT HEAD WO CONTRASTon 2023 CT HEAD [...] Wilber Robertson MD 07/23/23 Final result Normal [facility] CT HEAD WO CONTRAST EXAMINATION: CT OF [...] Wilber Robertson MD 07/23/23 Final result Normal [facility] CT LUMBAR SPINE BONY RECONST RUCTIONon 07-23-2023 [...] destructive lesion is seen. DEGENERATIVE CHANGES: Diffuse ygzs-[id number]-[id number] degenerative changes of the lumbar spine predominate [...] Will Ramirez MD 07/23/23 Final result Normal [facility] CT LUMBAR SPINE BONY RECONSTRUCTION EXAMINATION: CT [...] destructive lesion is seen. DEGENERATIVE CHANGES: Diffuse vwvb-[id number]-[id number] degenerative changes of the lumbar spine predominate [...] Will Ramirez MD 07/23/23 Final result Normal [facility] CT THORACIC SPINE BONY RECON STRUCTIONon 07-23-2023 [...] Will Ramirez MD 07/23/23 Final result Normal [facility] CT THORACIC SPINE BONY RECONSTRUCTION EXAMINATION: CT [...] Will Ramirez MD 07/23/23 Final result Normal [facility] Drug Scr, Abuse, Uron 2023 Fentanyl, Urine Positive Abnormal NEG [facility] Comment on above: Result Comment: Cuto ff: 5 ng/ml Performed By: #### U RNA, URTP, URCRE, UEOS #### [address] [address] Theater Set Production Designer: Alexey Green MD Interpretive Info Assay provides rapid clinical screening only. Presumptive positive results for Normal [facility] Comment on above: Result Comment: lega l purposes should be confirmed by another method. To request confirmation, please call the lab within 7 days of sample submission. Performed By: #### U RNA, URTP, URCRE, UEOS #### [address] [address] Theater Set Production Designer: Alexey Green MD Amphetamine(s),Ur Negative Normal NEG [facility] Comment on above: Result Comment: Cuto ff: 1000 ng/mL Performed By: #### U RNA, URTP, URCRE, UEOS #### [employer] [address] [place] [address] Theater Set Production Designer: Alexey Green MD Barbiturate(s),Ur Negative Normal NEG [facility] Comment on above: Result Comment: Cuto ff: 200 ng/ml Performed By: #### U RNA, URTP, URCRE, UEOS #### [employer] [address] [place] [address] Theater Set Production Designer: Alexey Green MD Benzodiazepine(s) Negative Normal NEG [facility] Comment on above: Result Comment: Cuto ff: 200 ng/ml Performed By: #### U RNA, URTP, URCRE, UEOS #### [employer] [address] [place] [address] Theater Set Production Designer: Alexey Green MD Cannabinoid(s),Ur Negative Normal NEG [facility] Comment on above: Result Comment: Cuto ff: 50 ng/ml Performed By: #### U RNA, URTP, URCRE, UEOS #### [address] [address] Theater Set Production Designer: Alexey Green MD Cocaine Metabolite Negative Normal NEG [facility] Comment on above: Result Comment: Cuto ff: 300 ng/ml Performed By: #### U RNA, URTP, URCRE, UEOS #### [address] [address] Theater Set Production Designer: Alexey Green MD Methadone Ql (U) Negative Normal NEG [facility] Comment on above: Result Comment: Cuto ff: 300 ng/ml Performed By: #### U RNA, URTP, URCRE, UEOS #### [address] [address] Theater Set Production Designer: Alexey Green MD Opiate(s), Ur Negative Normal NEG [facility] Comment on above: Result Comment: Cuto ff: 300 ng/ml Performed By: #### U RNA, URTP, URCRE, UEOS #### [address] [address] Theater Set Production Designer: Alexey Green MD Oxycodone, Urine Negative Normal NEG [facility] Comment on above: Result Comment: Cuto ff: 100 ng/ml Performed By: #### U RNA, URTP, URCRE, UEOS #### [address] [address] Theater Set Production Designer: Alexey Green MD Phencyclidine, Ur Negative Normal NEG [facility] Comment on above: Result Comment: Cuto ff: 25 ng/ml Performed By: #### U RNA, URTP, URCRE, UEOS #### [address] [address] Theater Set Production Designer: Alexey Green MD Fentanyl, Urine Positive Abnormal NEG [facility] Comment on above: Result Comment: Cuto ff: 5 ng/ml Performed By: #### VIKTOR RODAS, UA #### [facility] [employer] [address] [place] [address] Theater Set Production Designer: Alexey Green MD Interpretive Info Assay provides rapid clinical screening only. Presumptive positive results for Normal [facility] Comment on above: Result Comment: lega l purposes should be confirmed by another method. To request confirmation, please call the lab within 7 days of sample submission. Performed By: #### VIKTOR RODAS UA #### [facility] [address] [place] [address] Theater Set Production Designer: Alexey Green MD Amphetamine(s),Ur Negative Normal NEG [facility] Comment on above: Result Comment: Cuto ff: 1000 ng/mL Performed By: #### VIKTOR RODAS, UA #### [facility] [employer] [address] [place] [address] Theater Set Production Designer: Alexey Green MD Barbiturate(s),Ur Negative Normal NEG [facility] Comment on above: Result Comment: Cuto ff: 200 ng/ml Performed By: #### VIKTOR RODAS, UA #### [employer] [address] [place] [address] Theater Set Production Designer: Alexey Green MD Benzodiazepine(s) Negative Normal NEG [facility] Comment on above: Result Comment: Cuto ff: 200 ng/ml Performed By: #### VIKTOR RODAS, UA #### [facility] [employer] [address] [place] [address] Theater Set Production Designer: Alexey Green MD Cannabinoid(s),Ur Negative Normal NEG [facility] Comment on above: Result Comment: Cuto ff: 50 ng/ml Performed By: #### Alana BOWLING BRIDGETO, UA #### [facility] [employer] [address] [place] [address] Theater Set Production Designer: Alexey Green MD Cocaine Metabolite Negative Normal NEG [facility] Comment on above: Result Comment: Cuto ff: 300 ng/ml Performed By: #### [facility] #### [facility] [employer] [address] [place] [address] Theater Set Production Designer: Alexey Green MD Methadone Ql (U) Negative Normal NEG [facility] Comment on above: Result Comment: Cuto ff: 300 ng/ml Performed By: #### [facility], [facility]A #### [facility] [address] [place] [address] Theater Set Production Designer: Alexey Green MD Opiate(s), Ur Negative Normal NEG [facility] Comment on above: Result Comment: Cuto ff: 300 ng/ml Performed By: #### Alana BOWLING [facility], UA #### [facility] [address] [place] [address] Theater Set Production Designer: Alexey Green MD Oxycodone, Urine Negative Normal NEG [facility] Comment on above: Result Comment: Cuto ff: 100 ng/ml Performed By: #### [facility], UA #### [employer] [address] [place] [address] Theater Set Production Designer: Alexey Green MD Phencyclidine, Ur Negative Normal NEG [facility] Comment on above: Result Comment: Cuto ff: 25 ng/ml Performed By: #### Alana [facility], UA #### [facility] [address] [place] [address] Theater Set Production Designer: Alexey Green MD Gl Hemostasis TEG w/Lysison 07-23-2023 Fibrinogen, Func TEG 41.5 mm High 15.0-32.0 [facility] Comment on above: Performed By: #### B MPX #### [facility] [employer] [address] [place] [address] Theater Set Production Designer: Alexey Green MD LY30 (Lysis) TEG 0.0 % Normal 0.0-2.6 [facility] Comment on above: Performed By: #### B MPX #### [address] [address] Theater Set Production Designer: Alexey Green MD MA Rapid TEG 71.7 mm High 52.0-70 [facility] Comment on above: Performed By: #### B MPX #### [address] [address] Theater Set Production Designer: Alexey Green MD R(Reaction Time) TEG 4.0 min Low 4.6-9.1 [facility] Comment on above: Performed By: #### B MPX #### [address] [address] Theater Set Production Designer: Alexey Green MD Fibrinogen, Func TEG 41.5 mm High 15.0-32.0 [facility] Comment on above: Performed By: #### U ZACARIAS UA #### [facility] [employer] [address] [place] [address] Theater Set Production Designer: Alexey Green MD LY30 (Lysis) TEG 0.0 % Normal 0.0-2.6 [facility] Comment on above: Performed By: #### U ZACARIAS UA #### [facility] [employer] [address] [place] [address] Theater Set Production Designer: Alexey Green MD MA Rapid TEG 71.7 mm High 52.0-70 [facility] Comment on above: Performed By: #### U ZACARIAS UA #### [facility] [employer] [address] [place] [address] Theater Set Production Designer: Alexey Green MD R(Reaction Time) TEG 4.0 min Low 4.6-9.1 [facility] Comment on above: Performed By: #### U KURTISO UA #### [address] [address] Theater Set Production Designer: Alexey Green MD Glucose,Whole Bloodon 2023 Glucose [Mass/Vol] 154 mg/dL High 65-105 [facility] Glucose [Mass/Vol] 116 mg/dL High 65-105 [facility] Glucose [Mass/Vol] 154 mg/dL High 65-105 [facility] Glucose [Mass/Vol] 116 mg/dL High 65-105 [facility] Trauma Profileon 07-23-2023 Anion gap [Moles/Vol] 8 mmol/L Low 9-16 [facility] Comment on above: Performed By: #### U RNA, URTP, URCRE, UEOS #### [facility] [employer] [address] [place] [address] Theater Set Production Designer: Alexey Green MD Chloride [Moles/Vol] 111 mmol/L High 98-107 [facility] Comment on above: Performed By: #### U RNA, URTP, URCRE, UEOS #### [facility] [employer] [address] [place] [address] Theater Set Production Designer: Alexey Green MD CO2 [Moles/Vol] 24 mmol/L Normal 20-31 [facility] Comment on above: Performed By: #### U RNA, URTP, URCRE, UEOS #### [facility] [employer] [address] [place] [address] Theater Set Production Designer: Alexey Green MD Creatinine [Mass/Vol] 2.2 mg/dL High 0.50-0.90 [facility] Comment on above: Performed By: #### U RNA, URTP, URCRE, UEOS #### [facility] [employer] [address] [place] [address] Theater Set Production Designer: Alexey Green MD Ethanol [Mass/Vol] mg/dL Normal <10 [facility] Comment on above: Performed By: #### U RNA, URTP, URCRE, UEOS #### [address] [address] Theater Set Production Designer: Alexey Green MD Ethanol percent <0.010 Normal <0.010 [facility] Comment on above: Performed By: #### U RNA, URTP, URCRE, UEOS #### [address] [address] Theater Set Production Designer: Alexey Green MD GFR/1.73 sq M.predicted among non-blacks MDRD (S/P/Bld) [Vol rate/Area] 22 mL/min/{1.73_m2} Low >60 [facility] Comment on above: Result Comment: These results [...] #### U RNA, URTP, URCRE, UEOS #### [address] [address] Theater Set Production Designer: Alexey Green MD Glucose [Mass/Vol] 112 mg/dL High 74-99 [facility] Comment on above: Performed By: #### U RNA, URTP, URCRE, UEOS #### [address] [address] Theater Set Production Designer: Alexey Green MD Potassium [Moles/Vol] 4.5 mmol/L Normal 3.7-5.3 [facility] Comment on above: Performed By: #### U RNA, URTP, URCRE, UEOS #### [facility] [employer] [address] [place] [address] Theater Set Production Designer: Alexey Green MD Sodium [Moles/Vol] 143 mmol/L Normal 136-145 [facility] Comment on above: Performed By: #### U RNA, URTP, URCRE, UEOS #### [address] [address] Theater Set Production Designer: Alexey Green MD Urea nitrogen [Mass/Vol] 44 mg/dL High 8-23 [facility] Comment on above: Performed By: #### U RNA, URTP, URCRE, UEOS #### [address] [address] Theater Set Production Designer: Alexey Green MD aPTT Coag (Bld) [Time] 29.0 s Normal 23.0-36.5 [facility] Comment on above: Result Comment: IV Heparin Therapy Range: 66.0-92.0 sec Performed By: #### U RNA, URTP, URCRE, UEOS #### [address] [address] Theater Set Production Designer: Alexey Green MD INR Coag (PPP) [Relative time] 1.8 {INR} Normal [facility] Comment on above: Result Comment: Therapeutic Range: Moderate Anticoagulant Intensity: INR = 2.0-3.0 High Anticoagulant Intensity: INR = 2.5-3.5 Performed By: #### U RNA, URTP, URCRE, UEOS #### [address] [address] Theater Set Production Designer: Alexey Green MD PT Coag (PPP) [Time] 20.6 s High 11.7-14.9 [facility] Comment on above: Performed By: #### U RNA, URTP, URCRE, UEOS #### [facility] [employer] [address] [place] [address] Theater Set Production Designer: Alexey Green MD Body Temp. 37.0 Normal [facility] Comment on above: Performed By: #### U RNA, URTP, URCRE, UEOS #### [address] [address] Theater Set Production Designer: Alexey Green MD Carboxy Hgb 1.6 % Normal 0-5 [facility] Comment on above: Result Comment: Reference Range: Non-Smokers 0-2% Average Smoker 2-4% Heavy Smoker <10% Performed By: #### U RNA, URTP, URCRE, UEOS #### [address] [address] Theater Set Production Designer: Alexey Green MD FIO2 INFORMATION NOT PROVIDED [facility] Comment on above: Performed By: #### U RNA, URTP, URCRE, UEOS #### [address] [address] Theater Set Production Designer: Alexey Green MD HCO3 (Bld) [Moles/Vol] 25.6 mmol/L Normal 24-30 [facility] Comment on above: Performed By: #### U RNA, URTP, URCRE, UEOS #### [address] [address] Theater Set Production Designer: Alexey Green MD Negative Base Excess 2.0 mmol/L Normal 0.0-2.0 [facility] Comment on above: Performed By: #### U RNA, URTP, URCRE, UEOS #### [address] [address] Theater Set Production Designer: Alexey Green MD Oxygen saturation in Blood 67.2 % Normal 60.0-85.0 [facility] Comment on above: Performed By: #### U RNA, URTP, URCRE, UEOS #### [address] [address] Theater Set Production Designer: Alexey Green MD pCO2 59.6 mm Hg High 39-55 [facility] Comment on above: Performed By: #### U RNA, URTP, URCRE, UEOS #### [address] [address] Theater Set Production Designer: Alexey Green MD pH (Bld) 7.255 [pH] Low 7.320-7.420 [facility] Comment on above: Performed By: #### U RNA, URTP, URCRE, UEOS #### [address] [address] Theater Set Production Designer: Alexey Green MD pO2 35.4 mm Hg Normal 30-50 [facility] Comment on above: Performed By: #### U RNA, URTP, URCRE, UEOS #### [address] [address] Theater Set Production Designer: Alexey Green MD Erythrocyte distribution width (RBC) [Ratio] 13.4 % Normal 11.8-14.4 [facility] Comment on above: Performed By: #### U RNA, URTP, URCRE, UEOS #### [address] [address] Theater Set Production Designer: Alexey Green MD Hematocrit (Bld) [Volume fraction] 39.3 % Normal 36.3-47.1 [facility] Comment on above: Performed By: #### U RNA, URTP, URCRE, UEOS #### [address] [address] Theater Set Production Designer: Alexey Green MD Hemoglobin (Bld) [Mass/Vol] 11.8 g/dL Low 11.9-15.1 [facility] Comment on above: Performed By: #### U RNA, URTP, URCRE, UEOS #### [address] [place] [address] Theater Set Production Designer: Alexey Green MD MCH (RBC) [Entitic mass] 31.4 pg Normal 25.2-33.5 [facility] Comment on above: Performed By: #### U RNA, URTP, URCRE, UEOS #### [address] [address] Theater Set Production Designer: Alexey Green MD MCHC (RBC) [Mass/Vol] 30.0 g/dL Normal 28.4-34.8 [facility] Comment on above: Performed By: #### U RNA, URTP, URCRE, UEOS #### [address] [address] Theater Set Production Designer: Alexey Green MD MCV (RBC) [Entitic vol] 104.5 fL High 82.6-102.9 [facility] Comment on above: Performed By: #### U RNA, URTP, URCRE, UEOS #### [address] [address] Theater Set Production Designer: Alexey Green MD NRBC Automated 0.0 per 100 WBC Normal 0.0 [facility] Comment on above: Performed By: #### U RNA, URTP, URCRE, UEOS #### [address] [address] Theater Set Production Designer: Alexey Green MD Platelet mean volume (Bld) [Entitic vol] 11.5 fL Normal 8.1-13.5 [facility] Comment on above: Performed By: #### U RNA, URTP, URCRE, UEOS #### [address] [address] Theater Set Production Designer: Alexey Green MD Platelets (Bld) [#/Vol] 198 10*3/uL Normal 138-453 [facility] Comment on above: Performed By: #### U RNA, URTP, URCRE, UEOS #### [facility] [employer] [address] [place] [address] Theater Set Production Designer: Alexey Green MD RBC (d) [#/Vol] 3.76 10*6/uL Low 3.95-5.11 [facility] Comment on above: Performed By: #### U RNA, URTP, URCRE, UEOS #### [facility] [employer] [address] [place] [address] Theater Set Production Designer: Alexey Green MD WBC (Bld) [#/Vol] 10.4 10*3/uL Normal 3.5-11.3 [facility] Comment on above: Performed By: #### U RNA, URTP, URCRE, UEOS #### [address] [address] Theater Set Production Designer: Alexey Green MD Blood Bank BILL FOR SERVICES PERFORMED Normal [facility] Comment on above: Performed By: #### U RNA, URTP, URCRE, UEOS #### [address] [address] Theater Set Production Designer: Alexey Green MD Anion gap [Moles/Vol] 8 mmol/L Low 9-16 [facility] Comment on above: Performed By: #### Tanja ADAMES UA #### [facility] [employer] [address] [place] [address] Theater Set Production Designer: Alexey Green MD Chloride [Moles/Vol] 111 mmol/L High 98-107 [facility] Comment on above: Performed By: #### Tanja ADAMES UA #### [facility] [employer] [address] [place] [address] Theater Set Production Designer: Alexey Green MD CO2 [Moles/Vol] 24 mmol/L Normal 20-31 [facility] Comment on above: Performed By: #### U MICAO, UA #### [address] [address] Theater Set Production Designer: Alexey Green MD Creatinine [Mass/Vol] 2.2 mg/dL High 0.50-0.90 [facility] Comment on above: Performed By: #### U MICAO, UA #### [address] [address] Theater Set Production Designer: Alexey Green MD Ethanol [Mass/Vol] mg/dL Normal <10 [facility] Comment on above: Performed By: #### U MICAO, UA #### [address] [address] Theater Set Production Designer: Alexey Green MD Ethanol percent <0.010 Normal <0.010 [facility] Comment on above: Performed By: #### U KURTISO, UA #### [address] [address] Theater Set Production Designer: Alexey Green MD GFR/1.73 sq M.predicted among non-blacks MDRD (S/P/Bld) [Vol rate/Area] 22 mL/min/{1.73_m2} Low >60 [facility] Comment on above: Result Comment: These results [...] Performed By: #### U KURTISO, UA #### [address] [address] Theater Set Production Designer: Alexey Green MD Glucose [Mass/Vol] 112 mg/dL High 74-99 [facility] Comment on above: Performed By: #### U KURTISO UA #### [address] [place] [address] Theater Set Production Designer: Alexey Green MD Potassium [Moles/Vol] 4.5 mmol/L Normal 3.7-5.3 [facility] Comment on above: Performed By: #### Tanja ADAMES UA #### [facility] [employer] [address] [place] [address] Theater Set Production Designer: Alexey Green MD Sodium [Moles/Vol] 143 mmol/L Normal 136-145 [facility] Comment on above: Performed By: #### Tanja ADAMES UA #### [facility] [employer] [address] [place] [address] Theater Set Production Designer: Alexey Green MD Urea nitrogen [Mass/Vol] 44 mg/dL High 8-23 [facility] Comment on above: Performed By: #### Tanja ADAMES UA #### [facility] [employer] [address] [place] [address] Theater Set Production Designer: Alexey Green MD aPTT Coag (Bld) [Time] 29.0 s Normal 23.0-36.5 [facility] Comment on above: Result Comment: IV Heparin Therapy Range: 66.0-92.0 sec Performed By: #### Tanja ADAMES UA #### [facility] [address] [place] [address] Theater Set Production Designer: Alexey Green MD INR Coag (PPP) [Relative time] 1.8 {INR} Normal [facility] Comment on above: Result Comment: Therapeutic Range: Moderate Anticoagulant Intensity: INR = 2.0-3.0 High Anticoagulant Intensity: INR = 2.5-3.5 Performed By: #### Tanja ADAMES UA #### [facility] [employer] [address] [place] [address] Theater Set Production Designer: Alexey Green MD PT Coag (PPP) [Time] 20.6 s High 11.7-14.9 [facility] Comment on above: Performed By: #### U MICAO, UA #### [facility] [place] [address] Theater Set Production Designer: Alexey Green MD Body Temp. 37.0 Normal [facility] Comment on above: Performed By: #### U MICAO, UA #### [facility] [address] [place] [address] Theater Set Production Designer: Alexey Green MD Carboxy Hgb 1.6 % Normal 0-5 [facility] Comment on above: Result Comment: Reference Range: Non-Smokers 0-2% Average Smoker 2-4% Heavy Smoker <10% Performed By: #### U MICAO, UA #### [facility] [employer] [address] [place] [address] Theater Set Production Designer: Alexey Green MD FIO2 INFORMATION NOT PROVIDED [facility] Comment on above: Performed By: #### U MICAO, UA #### [facility] [employer] [address] [place] [address] Theater Set Production Designer: Alexey Green MD HCO3 (Bld) [Moles/Vol] 25.6 mmol/L Normal 24-30 [facility] Comment on above: Performed By: #### U MICAO, UA #### [facility] [address] [place] [address] Theater Set Production Designer: Alexey Green MD Negative Base Excess 2.0 mmol/L Normal 0.0-2.0 [facility] Comment on above: Performed By: #### U MICAO, UA #### [employer] [address] [place] [address] Theater Set Production Designer: Alexey Green MD Oxygen saturation in Blood 67.2 % Normal 60.0-85.0 [facility] Comment on above: Performed By: #### U MICAO, UA #### [employer] [address] [place] [address] Theater Set Production Designer: Alexey Green MD pCO2 59.6 mm Hg High 39-55 [facility] Comment on above: Performed By: #### Tanja ADAMES UA #### [facility] [employer] [address] [place] [address] Theater Set Production Designer: Alexey Green MD pH (Bld) 7.255 [pH] Low 7.320-7.420 [facility] Comment on above: Performed By: #### Tanja ADAMES UA #### [facility] [employer] [address] [place] [address] Theater Set Production Designer: Alexey Green MD pO2 35.4 mm Hg Normal 30-50 [facility] Comment on above: Performed By: #### Tanja ADAMES UA #### [address] [address] Theater Set Production Designer: Alexey Green MD Erythrocyte distribution width (RBC) [Ratio] 13.4 % Normal 11.8-14.4 [facility] Comment on above: Performed By: #### Tanja ADAMES UA #### [address] [address] Theater Set Production Designer: Alexey Green MD Hematocrit (Bld) [Volume fraction] 39.3 % Normal 36.3-47.1 [facility] Comment on above: Performed By: #### Tanja ADAMES UA #### [facility] [employer] [address] [place] [address] Theater Set Production Designer: Alexey Green MD Hemoglobin (Bld) [Mass/Vol] 11.8 g/dL Low 11.9-15.1 [facility] Comment on above: Performed By: #### Tanja ADAMES UA #### [facility] [employer] [address] [place] [address] Theater Set Production Designer: Alexey Green MD MCH (RBC) [Entitic mass] 31.4 pg Normal 25.2-33.5 [facility] Comment on above: Performed By: #### U ZACARIAS UA #### [facility] [employer] [address] [place] [address] Theater Set Production Designer: Alexey Green MD MCHC (RBC) [Mass/Vol] 30.0 g/dL Normal 28.4-34.8 [facility] Comment on above: Performed By: #### U ZACARIAS UA #### [facility] [employer] [address] [place] [address] Theater Set Production Designer: Alexey Green MD MCV (RBC) [Entitic vol] 104.5 fL High 82.6-102.9 [facility] Comment on above: Performed By: #### U ZACARIAS UA #### [facility] [employer] [address] [place] [address] Theater Set Production Designer: Alexey Green MD NRBC Automated 0.0 per 100 WBC Normal 0.0 [facility] Comment on above: Performed By: #### U ZACARIAS UA #### [facility] [employer] [address] [place] [address] Theater Set Production Designer: Alexey Green MD Platelet mean volume (Bld) [Entitic vol] 11.5 fL Normal 8.1-13.5 [facility] Comment on above: Performed By: #### Tanja ADAMES UA #### [address] [address] Theater Set Production Designer: Alexey Green MD Platelets (Bld) [#/Vol] 198 10*3/uL Normal 138-453 [facility] Comment on above: Performed By: #### U ZACARIAS UA #### [facility] [employer] [address] [place] [address] Theater Set Production Designer: Alexey Green MD RBC (Bld) [#/Vol] 3.76 10*6/uL Low 3.95-5.11 [facility] Comment on above: Performed By: #### U ZACARIAS UA #### [address] [address] Theater Set Production Designer: Alexey Green MD WBC (Bld) [#/Vol] 10.4 10*3/uL Normal 3.5-11.3 [facility] Comment on above: Performed By: #### U MICAO, UA #### [address] [address] Theater Set Production Designer: Alexey Green MD Blood Bank BILL FOR SERVICES PERFORMED Normal [facility] Comment on above: Performed By: #### U MICAO, UA #### [address] [address] Theater Set Production Designer: Alexey Green MD Urinalysis, Routineon 2023 Bilirubin, SemiQt,Ur Negative Normal NEG [facility] Comment on above: Performed By: #### U RNA, URTP, URCRE, UEOS #### [address] [address] Theater Set Production Designer: Alexey Green MD Blood, Urine Negative Normal NEG [facility] Comment on above: Performed By: #### U RNA, URTP, URCRE, UEOS #### [address] [address] Theater Set Production Designer: Alexey Green MD Clarity (U) Clear Normal CLEAR [facility] Comment on above: Performed By: #### U RNA, URTP, URCRE, UEOS #### [address] [address] Theater Set Production Designer: Alexey Green MD Color (U) Yellow Normal YEL [facility] Comment on above: Performed By: #### U RNA, URTP, URCRE, UEOS #### [address] [address] Theater Set Production Designer: Alexey Green MD Glucose Ql (U) Negative Normal NEG [facility] Comment on above: Performed By: #### U RNA, URTP, URCRE, UEOS #### [address] [address] Theater Set Production Designer: Alexey Green MD Ketones Ql (U) Negative Normal NEG [facility] Comment on above: Performed By: #### U RNA, URTP, URCRE, UEOS #### [address] [address] Theater Set Production Designer: Alexey Green MD Leukocyte esterase Test strip Ql (U) SMALL Abnormal NEG [facility] Comment on above: Performed By: #### U RNA, URTP, URCRE, UEOS #### [address] [address] Theater Set Production Designer: Alexey Green MD Nitrite,Ur Negative Normal NEG [facility] Comment on above: Performed By: #### U RNA, URTP, URCRE, UEOS #### [address] [address] Theater Set Production Designer: Alexey Green MD PH,Ur 5.5 Normal 5.0-8.0 [facility] Comment on above: Performed By: #### U RNA, URTP, URCRE, UEOS #### [address] [address] Theater Set Production Designer: Alexey Green MD Protein Ql (U) TRACE Abnormal NEG [facility] Comment on above: Performed By: #### U RNA, URTP, URCRE, UEOS #### [address] [address] Theater Set Production Designer: Alexey Green MD Spec. Adrian,Ur 1.029 Normal 1.005-1.030 [facility] Comment on above: Performed By: #### U RNA, URTP, URCRE, UEOS #### [facility] [address] [place] [address] Theater Set Production Designer: Alexey Green MD Urobilinogen,Ur Normal Normal 0.0-1.0 [facility] Comment on above: Performed By: #### U RNA, URTP, URCRE, UEOS #### [facility] [address] [place] [address] Theater Set Production Designer: Alexey Green MD Bilirubin, SemiQt,Ur Negative Normal NEG [facility] Comment on above: Performed By: #### [facility], UA #### [facility] [address] [place] [address] Theater Set Production Designer: Alexey Green MD Blood, Urine Negative Normal NEG [facility] Comment on above: Performed By: #### [facility], UA #### [facility] [address] [place] [address] Theater Set Production Designer: Alexey Green MD Clarity (U) Clear Normal CLEAR [facility] Comment on above: Performed By: #### [facility], UA #### [facility] [address] [place] [address] Theater Set Production Designer: Alexey Green MD Color (U) Yellow Normal YEL [facility] Comment on above: Performed By: #### [facility], UA #### [facility] [address] [place] [address] Theater Set Production Designer: Alexey Green MD Glucose Ql (U) Negative Normal NEG [facility] Comment on above: Performed By: #### [facility], UA #### [facility] [address] [place] [address] Theater Set Production Designer: Alexey Green MD Ketones Ql (U) Negative Normal NEG [facility] Comment on above: Performed By: #### [facility], UA #### [facility] [address] [place] [address] Theater Set Production Designer: Alexey Green MD Leukocyte esterase Test strip Ql (U) SMALL Abnormal NEG [facility] Comment on above: Performed By: #### [facility], UA #### [facility] [address] [place] [address] Theater Set Production Designer: Alexey Green MD Nitrite,Ur Negative Normal NEG [facility] Comment on above: Performed By: #### [facility], UA #### [facility] [address] [place] [address] Theater Set Production Designer: Alexey Green MD PH,Ur 5.5 Normal 5.0-8.0 [facility] Comment on above: Performed By: #### [facility], UA #### [facility] [address] [place] [address] Theater Set Production Designer: Alexey Green MD Protein Ql (U) TRACE Abnormal NEG [facility] Comment on above: Performed By: #### [facility], UA #### [facility] [address] [place] [address] Theater Set Production Designer: Alexey Green MD Spec. Adrian,Ur 1.029 Normal 1.005-1.030 [facility] Comment on above: Performed By: #### [facility], UA #### [facility] [address] [place] [address] Theater Set Production Designer: Alexey Green MD Urobilinogen,Ur Normal Normal 0.0-1.0 [facility] Comment on above: Performed By: #### [facility] #### [facility] [address] [place] [address] Theater Set Production Designer: Alexey Green MD Urinalysis,Microon 4 Bacteria MANY Abnormal NONE [facility] Comment on above: Performed By: #### U RNA, URTP, URCRE, UEOS #### [facility] [address] [place] [address] Theater Set Production Designer: Alexey Green MD Casts None [place] [address] Comment on above: Result Comment: Refe rence range defined for non-centrifuged specimen. Performed By: #### U RNA, URTP, URCRE, UEOS #### [facility] [address] [place] [address] Theater Set Production Designer: Alexey Green MD Epithelial cells LM Ql (Urine sed) None [address] Comment on above: Performed By: #### U RNA, URTP, URCRE, UEOS #### [address] [address] Theater Set Production Designer: Alexey Green MD Urine RBC's None Normal 0-4 [facility] Comment on above: Result Comment: Refe rence range defined for non-centrifuged specimen. Performed By: #### U RNA, URTP, URCRE, UEOS #### [facility] [employer] [address] [place] [address] Theater Set Production Designer: Alexey Green MD Urine WBC's 20 TO 50 Normal 0-5 [facility] Comment on above: Performed By: #### U RNA, URTP, URCRE, UEOS #### [facility] [address] [place] [address] Theater Set Production Designer: Alexey Green MD Bacteria MANY Abnormal NONE [facility] Comment on above: Performed By: #### D AU, UMICAO, UA #### [facility] [address] [place] [address] Theater Set Production Designer: Alexey Green MD Castjohn None Normal 0-8 [facility] Comment on above: Result Comment: Refe rence range defined for non-centrifuged specimen. Performed By: #### D TAWNYA BRIDGETO, UA #### [facility] [address] [place] [address] Theater Set Production Designer: Alexey Green MD Epithelial cells LM Ql (Urine sed) None Normal 0-5 [facility] Comment on above: Performed By: #### Alana BOWLING JACQUIEMORENA, UA #### [facility] [address] [place] [address] Theater Set Production Designer: Alexey Green MD Urine RBC's None Normal 0-4 [facility] Comment on above: Result Comment: Refe rence range defined for non-centrifuged specimen. Performed By: #### VIKTOR RODAS, UA #### [employer] [address] [place] [address] Theater Set Production Designer: Alexey Green MD Urine WBC's 20 TO 50 Normal 0-5 [facility] Comment on above: Performed By: #### Alana BOWLING BRIDGET, UA #### [facility] [employer] [address] [place] [address] Theater Set Production Designer: Alexey Green MD Vitamin D 25 OHon 07-23-2023 Vitamin D 25 [place] 26.9 ng/mL Low 30.0-100.0 [facility] Comment on above: Result Comment: Reference Range: Vitamin D status Range Deficiency <20 ng/mL Mild Deficiency 20-30 ng/mL Sufficiency 30-100 ng/mL Toxicity >100 ng/mL Performed By: #### B MPX #### [employer] [address] [place] [address] Theater Set Production Designer: Alexey Green MD Vitamin D 25 [place] 26.9 ng/mL Low 30.0-100.0 [facility] Comment on above: Result Comment: Reference Range: Vitamin D status Range Deficiency <20 ng/mL Mild Deficiency 20-30 ng/mL Sufficiency 30-100 ng/mL Toxicity >100 ng/mL Performed By: #### U MICAO, UA #### [address] [place] [address] Theater Set Production Designer: Alexey Green MD XR FEMUR LEFT (MIN [...] Will Ramirez MD 07/23/23 Final result Normal [facility] XR FEMUR LEFT (MIN 2 VIEWS) EXAMINATION: [...] Will Ramirez MD 07/23/23 Final result Normal [facility] XR HIP 2-3 VW W PELVIS LEFTo [...] Will Ramirez MD 07/23/23 Final result Normal [facility] XR HIP 2-3 VW W PELVIS LEFT [...] Will Ramirez MD 07/23/23 Final result Normal [facility] XR HIP LEFT (2-3 VIEWS)on XR HIP [...] Will Ramirez MD 07/23/23 Final result Normal [facility] XR HIP LEFT (2-3 VIEWS) EXAMINATION: ONE [...] Will Ramirez MD 07/23/23 Final result Normal [facility] XR KNEE LEFT (1-2 VIEWS)on 0 07-23-2023 [...] Will Ramirez MD 07/23/23 Final result Normal [facility] XR KNEE LEFT (1-2 VIEWS) EXAMINATION: ONE [...] Will Ramirez MD 07/23/23 Final result Normal [facility] XR KNEE LEFT (3 VIEWS)on XR KNEE [...] Will Ramirez MD 07/23/23 Final result Normal [facility] XR KNEE LEFT (3 VIEWS) EXAMINATION: ONE [...] Will Ramirez MD 07/23/23 Final result Normal [facility] Brain Natri. Peptideon 07-02 Natriuretic peptide B (Bld) [Mass/Vol] 1489 pg/mL High 0-300 [facility] Comment on above: Result Comment: An a ge-independent cutoff point of 300 pg/ml has a 98% negative predictive value excluding acute heart failure. Performed By: #### C DP, BMP #### [facility] [address] Theater Set Production Designer: Alexey Green MD CBC with Diffon 07-03-2023 Abs. Basophil 0.06 k/uL Normal 0.00-0.20 [facility] Comment on above: Performed By: #### C DP, BMP #### [place] [address] Theater Set Production Designer: Alexey Green MD Abs.Imm.Granulocyte <0.03 Normal 0.00-0.30 [facility] Comment on above: Performed By: #### C DP, BMP #### [place] [address] Theater Set Production Designer: Alexey Green MD Abs.Neutrophil (Seg) 3.23 k/uL Normal 1.50-8.10 [facility] Comment on above: Performed By: #### C DP, BMP #### [place] [address] Theater Set Production Designer: Alexey Green MD Basophils/100 WBC (Bld) 1 % Normal 0-2 [facility] Comment on above: Performed By: #### C DP, BMP #### [place] [address] Theater Set Production Designer: Alexey Green MD Eosinophils (Bld) [#/Vol] 0.67 10*3/uL High 0.00-0.44 [facility] Comment on above: Performed By: #### C DP, BMP #### [facility] [employer] [address] [place] [address] Theater Set Production Designer: Alexey Green MD Eosinophils/100 WBC (Bld) 9 % High 1-4 [facility] Comment on above: Performed By: #### C DP, BMP #### [facility] [employer] [address] [place] [address] Theater Set Production Designer: Alexey Green MD Erythrocyte distribution width (RBC) [Ratio] 13.6 % Normal 11.8-14.4 [facility] Comment on above: Performed By: #### C DP, BMP #### [address] [address] Theater Set Production Designer: Alexey Green MD Hematocrit (Bld) [Volume fraction] 39.3 % Normal 36.3-47.1 [facility] Comment on above: Performed By: #### C DP, BMP #### [address] [address] Theater Set Production Designer: Alexey Green MD Hemoglobin (Bld) [Mass/Vol] 11.8 g/dL Low 11.9-15.1 [facility] Comment on above: Performed By: #### C DP, BMP #### [address] [address] Theater Set Production Designer: Alexey Green MD Immature granulocytes/100 WBC (Bld) 0 % Normal 0 [facility] Comment on above: Performed By: #### C DP, BMP #### [address] [address] Theater Set Production Designer: Alexey Green MD Lymphocytes (Bld) [#/Vol] 3.23 10*3/uL Normal 1.10-3.70 [facility] Comment on above: Performed By: #### C DP, BMP #### [address] [address] Theater Set Production Designer: Alexey Green MD Lymphocytes/100 WBC (Bld) 40 % Normal 24-43 [facility] Comment on above: Performed By: #### C DP, BMP #### [address] [address] Theater Set Production Designer: Alexey Green MD MCH (RBC) [Entitic mass] 31.1 pg Normal 25.2-33.5 [facility] Comment on above: Performed By: #### C DP, BMP #### [address] [address] Theater Set Production Designer: Alexey Green MD MCHC (RBC) [Mass/Vol] 30.0 g/dL Normal 28.4-34.8 [facility] Comment on above: Performed By: #### C DP, BMP #### [address] [address] Theater Set Production Designer: Alexey Green MD MCV (RBC) [Entitic vol] 103.7 fL High 82.6-102.9 [facility] Comment on above: Performed By: #### C DP, BMP #### [address] [address] Theater Set Production Designer: Alexey Green MD Monocytes (Bld) [#/Vol] 0.68 10*3/uL Normal 0.10-1.20 [facility] Comment on above: Performed By: #### C DP, BMP #### [address] [address] Theater Set Production Designer: Alexey Green MD Monocytes/100 WBC (Bld) 9 % Normal 3-12 [facility] Comment on above: Performed By: #### C DP, BMP #### [address] [address] Theater Set Production Designer: Alexey Green MD Neutrophil (Seg) 41 % Normal 36-65 [facility] Comment on above: Performed By: #### C DP, BMP #### [address] [address] Theater Set Production Designer: Alexey Green MD NRBC Automated 0.0 per 100 WBC Normal 0.0 [facility] Comment on above: Performed By: #### C DP, BMP #### [place] [address] Theater Set Production Designer: Alexey Green MD Platelet mean volume (Bld) [Entitic vol] 12.2 fL Normal 8.1-13.5 [facility] Comment on above: Performed By: #### C DP, BMP #### [address] [address] Theater Set Production Designer: Alexey Green MD Platelets (Bld) [#/Vol] 199 10*3/uL Normal 138-453 [facility] Comment on above: Performed By: #### C DP, BMP #### [address] [address] Theater Set Production Designer: Alexey Green MD RBC (Bld) [#/Vol] 3.79 10*6/uL Low 3.95-5.11 [facility] Comment on above: Performed By: #### C DP, BMP #### [address] [address] Theater Set Production Designer: Alexey Green MD RBC morphology finding Nom (Bld) MACROCYTOSIS PRESENT Normal [facility] Comment on above: Performed By: #### C DP, BMP #### [address] [address] Theater Set Production Designer: Alexey Green MD WBC (Bld) [#/Vol] 7.9 10*3/uL Normal 3.5-11.3 [facility] Comment on above: Performed By: #### C DP, BMP #### [address] [address] Theater Set Production Designer: Alexey Green MD Hemoglobin A1Con 07-03-2023 Glucose [Mass/Vol] 137 mg/dL Normal [facility] Comment on above: Result Comment: The ADA and AACC recommend providing the estimated average glucose result to permit better patient understanding of their HBA1c result. Performed By: #### C DP, BMP #### [address] [id number] Theater Set Production Designer: Alexey Green MD HbA1c (Bld) [Mass fraction] 6.4 % High 4.0-6.0 [facility] Comment on above: Performed By: #### C VIOLETTA, BMP #### [employer] [address] [place], [place] [id number] Theater Set Production Designer: Alexey Green MD TSH w/reflex to FT4on 2023 Thyroid Stim. Horm. 2.56 uIU/mL Normal 0.27-4.20 [facility] Comment on above: Performed By: #### C VIOLETTA, BMP #### [employer] [address] [place], [place] [address] Theater Set Production Designer: Alexey Green MD Protime-INRon 05-29-2023 INR Coag (Bld) [Relative time] 2.2 {INR} [facility] [employer] PT Coag (PPP) [Time] 26.8 s seconds [facility] [employer] [facility] [employer] Protime-INRon 04-25-2023 INR Coag (Bld) [Relative time] 2.7 {INR} [facility] [employer] PT Coag (PPP) [Time] 32.2 s seconds [facility] [employer] Protime-INRon 04-13-2023 PT Coag (PPP) [Time] 25.2 s seconds [facility] [employer] [facility] [employer] INR Coag (Bld) [Relative time] 2.1 {INR} [facility] [employer] INR in Platelet poor plasma by Coagulation assayOrdered By: Colette Méndez on 02-26-2023 INR Coag (PPP) [Relative time] 2.2 {INR} [facility] Comment on above: INR Therapeutic Rang e [...] Coag (PPP) [Relative time] 2.2 {INR} Normal [facility] Comment on above: Result Comment: INR Therapeutic [...] heart valves: 3 - 4.5 PERFORMED BY: [place] [address] [facility] ASSISTANT IMPORT MANAGER REZA ORTIZ M.D. Performed By: #### P T #### [facility] [address] [place], [place] [id number] [facility] PT Coag (PPP) [Time] 25.8 s High 9.0-12.9 [facility] Comment on above: Result Comment: A he matocrit value greater than 55% may lead to inaccurate results in coagulation testing. Patients having hematocrit values >55% require a special collection tube for coagulation studies. Please contact the laboratory at [phone] for redraw instructions. Performed By: #### P T #### [facility] [address] [place], [place] [id number] [facility] Prothrombin time (PT)Ordered By: Colette Méndez on 02-26-2023 PT Coag (PPP) [Time] 25.8 s 9.0-12.9 [facility] Comment on above: A hematocrit value g reater than 55% may lead to inaccurate results in coagulation testing. Patients having hematocrit values >55% require a special collection tube for coagulation studies. Please contact the laboratory at [phone] for redraw instructions. INR in Platelet poor plasma by Coagulation assayOrdered By: Colette Méndez on 02-15-2023 INR Coag (PPP) [Relative time] 1.2 {INR} [facility] Comment on above: INR Therapeutic Rang e [...] Coag (PPP) [Relative time] 1.2 {INR} Normal [facility] Comment on above: Result Comment: INR Therapeutic [...] heart valves: 3 - 4.5 PERFORMED BY: [place] [address] PATHOLOGIST ASSISTANT IMPORT MANAGER REZA ORTIZ M.D. Performed By: #### P T #### [facility] [address] [place], [place] [id number] [facility] PT Coag (PPP) [Time] 14.5 s High 9.0-12.9 [facility] Comment on above: Result Comment: A he matocrit value greater than 55% may lead to inaccurate results in coagulation testing. Patients having hematocrit values >55% require a special collection tube for coagulation studies. Please contact the laboratory at [phone] for redraw instructions. Performed By: #### P T #### [facility] [address] [place], [place] [id number] [facility] Prothrombin time (PT)Ordered By: Colette Méndez on 02-15-2023 PT Coag (PPP) [Time] 14.5 s 9.0-12.9 [facility] Comment on above: A hematocrit value g reater than 55% may lead to inaccurate results in coagulation testing. Patients having hematocrit values >55% require a special collection tube for coagulation studies. Please contact the laboratory at [phone] for redraw instructions. Ambulatory Visit Summaryon 0 [...] Varicose veins of lower extremity Ernesto Churchill [facility] General Surgery Office/Clini c Noteon 12-05-2022 General [...] Immunizations Vaccine Date Status Comments SARS-CoV-2 (COVID-19) mRNAMUL.ORD![id number] 07/25/2022 Recorded SARS-CoV-2 (COVID-19) mRNA-1273 vaccine 07/10/2022 (more content not included)... Normal [facility] Comment on above: Result Comment: Elec tronically Signed By: JAY BRYAN, Tom Jimenez\.br\Date and Time Signed: 12/05/22 15:41 EDT Pathology Noteon 11-29-2022 Pathology Note [id number]:127 [facility] Ambulatory Visit Summaryon 0 11-22-2022 Ambulatory [...] regurgitation Varicose veins of lower extremity Normal [facility] General Surgery Office/Clini c Noteon 11-22-2022 General [...] Years., 11/14 (more content not included)... Normal [facility] Comment on above: Result Comment: Elec tronically [...] Jimenez Where: General Surgery Jay/Debi Young Normal [facility] Office Visiton 10-31-2022 Follow-up visit [id number] Carrie Lewis 1935 F Date Provider Department Center 10/31/2022 ROB ARAMBULA TYSON Marie No family history on file Level of Service:10118 [place] OFFICE/OUTPATIENT ESTABLISHED MOD MDM 30-39 MIN Reason for Visit and Comments: Follow-up [638528] Normal [facility] Physician Referralon 023 Physician Referral [id number]:127 Normal [facility] Physician Referral [id number]:127 Normal [facility] PROTIMEon 08-02-2022 INR Coag (PPP) [Relative time] 1.12 {INR} Normal [facility] Comment on above: Performed By: #### P OCGLUC #### [facility] [address] [place] [address] Dr. Nancy Montalvo INR GUIDELINES SEE BELOW Normal [facility] Comment on above: Result Comment: ADITYA RED INR: 2.0 - 3.0 CONDITIONS NOT LISTED BELOW 2.5 - 3.5 FOR PROSTHETIC HEART VALVE REPLACEMENT 2.5 - 3.5 RECURRENT THROMBOSIS Performed By: #### P OCGLUC #### [facility] [address] [place] [address] Dr. Nancy Montalvo PT Coag (PPP) [Time] 11.8 s Critically high 9.0-11.6 [facility] Comment on above: Performed By: #### P OCGLUC #### [facility] [address] [place] [address] Dr. Nancy Montalvo PROTIMEon 07-26-2022 INR Coag (PPP) [Relative time] 1.33 {INR} Normal [facility] Comment on above: Performed By: #### P OCGLUC #### [facility] [address] [place] [address] Dr. Nancy Montalvo INR GUIDELINES SEE BELOW Normal [facility] Comment on above: Result Comment: ADITYA RED INR: 2.0 - 3.0 CONDITIONS NOT LISTED BELOW 2.5 - 3.5 FOR PROSTHETIC HEART VALVE REPLACEMENT 2.5 - 3.5 RECURRENT THROMBOSIS Performed By: #### P OCGLUC #### [facility] [address] [place] [address] Dr. Nancy Montalvo PT Coag (PPP) [Time] 13.9 s Critically high 9.0-11.6 [facility] Comment on above: Performed By: #### P OCGLUC #### [facility] [address] [place] [address] Dr. Nancy Montalvo PROTIMEon 07-24-2022 INR Coag (PPP) [Relative time] 1.41 {INR} Normal [facility] Comment on above: Performed By: #### C VDTBH #### [facility] [address] [place] [address] Dr. Nancy Montalvo INR GUIDELINES SEE BELOW Normal [facility] Comment on above: Result Comment: ADITYA RED INR: 2.0 - 3.0 CONDITIONS NOT LISTED BELOW 2.5 - 3.5 FOR PROSTHETIC HEART VALVE REPLACEMENT 2.5 - 3.5 RECURRENT THROMBOSIS Performed By: #### C VDTBH #### [facility] [address] [place] [address] Dr. Nancy Montalvo PT Coag (PPP) [Time] 14.7 s Critically high 9.0-11.6 [facility] Comment on above: Performed By: #### C VDTBH #### [facility] [address] [place] [address] Dr. Nancy Montalvo CBC W MANUAL DIFFon 07-22-19 ANISOCYTOSIS 1+ Normal [facility] Comment on above: Performed By: #### C VDTBH #### [facility] [address] [place] [address] Dr. Nancy Montalvo ATYPICAL LYMPH # Normal [facility] Comment on above: Performed By: #### C VDTBH #### [facility] [address] [place] [address] Dr. Nancy Montalvo ATYPICAL LYMPH % Normal [facility] Comment on above: Performed By: #### C VDTBH #### [facility] [address] [place] [address] Dr. Nancy Montalvo BAND # 0.2 103/ul Normal 0.0-0.3 [facility] Comment on above: Performed By: #### C VDTBH #### [facility] [address] [place] [address] Dr. Nancy Montalvo BAND % 2 % Normal 0-5 [facility] Comment on above: Performed By: #### C VDTBH #### [facility] [address] [place] [address] Dr. Nancy Montalvo BASOM # 0.00 103/ul Normal 0.00-0.10 [facility] Comment on above: Performed By: #### C VDTBH #### [facility] [address] [place] [address] Dr. Nancy Montalvo BASOM % 0.0 % Critically low 0.2-2.0 [facility] Comment on above: Performed By: #### C VDTBH #### [facility] [address] [place] [address] Dr. Nancy Montalvo BLAST # Normal [facility] Comment on above: Performed By: #### C VDTBH #### [facility] [address] [place] [address] Dr. Nancy Montalvo BLAST % Normal [facility] Comment on above: Performed By: #### C VDTBH #### [facility] [address] [place] [address] Dr. Nancy Montalvo CORRECTED WBC Normal 4.0-11.0 [facility] Comment on above: Performed By: #### C VDTBH #### [facility] [address] [place] [address] Dr. Nancy Montalvo EOS # 0.10 103/ul Normal 0.00-0.70 [facility] Comment on above: Performed By: #### C VDTBH #### [facility] [address] [place] [address] Dr. Nancy Montalvo EOS% 1.0 % Normal 0.9-7.0 [facility] Comment on above: Performed By: #### C VDTBH #### [facility] [address] [place] [address] Dr. Nancy Montalvo GIANT PLATELETS SEEN Normal [facility] Comment on above: Performed By: #### C VDTBH #### [facility] [address] [place] [address] Dr. Nancy Montalvo HCT 30.2 % Critically low 36.0-48.0 [facility] Comment on above: Performed By: #### C VDTBH #### [facility] [address] [place] [address] Dr. Nancy Montalvo HGB 9.7 g/dl Critically low 12.0-16.0 [facility] Comment on above: Performed By: #### C VDTBH #### [facility] [address] [place] [address] Dr. Nancy Montalvo LYMPHM # 1.72 103/ul Normal 1.20-3.80 [facility] Comment on above: Performed By: #### C VDTBH #### [facility] [address] [address] [address] Nancy Montalvo LYMPHM% 17.0 % Critically low 20.5-60.0 [facility] Comment on above: Performed By: #### C VDTBH #### [facility] [address] [place] [address] Dr. Nancy Montalvo MCH 31.5 pg Normal 26.7-34.0 [facility] Comment on above: Performed By: #### C VDTBH #### [facility] [address] [place] [address] Dr. Nancy Montalvo MCHC 32.1 g/dl Normal 29.9-35.2 [facility] Comment on above: Performed By: #### C VDTBH #### [facility] [address] [place] [address] Dr. Nancy Montalvo MCV 98.1 fL Normal 81.0-99.0 [facility] Comment on above: Performed By: #### C VDTBH #### [facility] [address] [place] [address] Dr. Nancy Montalvo METAMYELOCYTE # Normal [facility] Comment on above: Performed By: #### C VDTBH #### [facility] [address] [place] [address] Dr. Nancy Montalvo METAMYELOCYTE % Normal [facility] Comment on above: Performed By: #### C VDTBH #### [facility] [address] [place] [address] Dr. Nancy Montalvo MONOM# 0.61 103/ul Normal 0.30-0.80 [facility] Comment on above: Performed By: #### C VDTBH #### [facility] [address] [address] [address] Nancy Montalvo MONOM% 6.0 % Normal 1.7-12.0 [facility] Comment on above: Performed By: #### C VDTBH #### [facility] [address] [place] [address] Dr. Nancy Montalvo MPV 11.3 fL Normal 9.5-13.5 [facility] Comment on above: Performed By: #### C VDTBH #### [facility] [address] [place] [address] Dr. Nancy Montalvo MYELOCYTE # Normal [facility] Comment on above: Performed By: #### C VDTBH #### [facility] [address] [place], [place] [address] Dr. Nancy Montalvo MYELOCYTE % Normal [facility] Comment on above: Performed By: #### C VDTBH #### [facility] [address] [place] [address] Dr. Nancy Montalvo NRBC Normal [facility] Comment on above: Performed By: #### C VDTBH #### [facility] [address] [place] [address] Dr. Nancy Montalvo OVALOCYTES SLIGHT Normal [facility] Comment on above: Performed By: #### C VDTBH #### [facility] [address] [place] [address] Dr. Nancy Montalvo PLT 277 103/ul Normal 150-450 [facility] Comment on above: Performed By: #### C VDTBH #### [facility] [address] [place] [address] Dr. Nancy Montalvo POIKILOCYTOSIS SLIGHT Normal [facility] Comment on above: Performed By: #### C VDTBH #### [facility] [address] [place] [address] Dr. Nancy Montalvo RBC 3.08 106/ul Critically low 4.20-5.40 [facility] Comment on above: Performed By: #### C VDTBH #### [facility] [address] [place] [address] Dr. Nancy Montalvo RDW 15.8 % Critically high 11.0-15.0 [facility] Comment on above: Performed By: #### C VDTBH #### [facility] [address] [place] [address] Dr. Nancy Montalvo SEG # 7.47 103/ul Critically high 1.40-6.50 [facility] Comment on above: Performed By: #### C VDTBH #### [facility] [address] [place] [address] Dr. Nancy Montalvo SEG % 74.0 % Normal 43.0-75.0 [facility] Comment on above: Performed By: #### C VDTBH #### [facility] [address] [place] [address] Dr. Nancy Montalvo TEAR DROP CELLS SLIGHT Normal [facility] Comment on above: Performed By: #### C VDTBH #### [facility] [address] [place] [address] Dr. Nancy Montalvo WBC 10.1 103/ul Normal 4.0-11.0 [facility] Comment on above: Performed By: #### C VDTBH #### [facility] [address] [place] [address] Dr. Nancy Montalvo CULTURE URINEon 07-21-2022 CULTURE URINE Culture Observations : NO GROWTH. Normal [facility] Comment on above: Performed By: #### A 1C #### [facility] [address] [place] [address] Dr. Nancy Montalvo PROF 14(COMP METB)on 023 Albumin [Mass/Vol] 1.6 g/dL Critically low 3.4-5.0 [facility] Comment on above: Performed By: #### C VDTBH #### [facility] [address] [place] [address] Dr. Nancy Montalvo Albumin/Globulin [Mass ratio] 0.4 {ratio} Normal [facility] Comment on above: Performed By: #### C VDTBH #### [facility] [address] [address] [address] Nancy Montalvo ALP [Catalytic activity/Vol] 112 U/L Normal 46-116 [facility] Comment on above: Performed By: #### C VDTBH #### [facility] [address] [address] [address] Nancy Montalvo ALT [Catalytic activity/Vol] 36 U/L Normal 14-59 [facility] Comment on above: Performed By: #### C VDTBH #### [facility] [address] [address] [address] Nancy Montalvo Anion gap [Moles/Vol] 12.2 mmol/L Normal [facility] Comment on above: Performed By: #### C VDTBH #### [facility] [address] [place] [address] Dr. Nancy Montalvo AST [Catalytic activity/Vol] 29 U/L Normal 15-37 [facility] Comment on above: Performed By: #### C VDTBH #### [facility] [address] [place] [address] Dr. Nancy Montalvo Bilirubin [Mass/Vol] 0.2 mg/dL Normal 0.2-1.0 [facility] Comment on above: Performed By: #### C VDTBH #### [facility] [address] [place] [address] Dr. Nancy Monatlvo Calcium [Mass/Vol] 8.2 mg/dL Critically low 8.5-10.1 [facility] Comment on above: Performed By: #### C VDTBH #### [facility] [address] [place] [address] Dr. Nancy Montalvo Chloride [Moles/Vol] 110 mmol/L Critically high 98-107 [facility] Comment on above: Performed By: #### C VDTBH #### [facility] [address] [place] [address] Dr. Nancy Montalvo CO2 [Moles/Vol] 21.1 mmol/L Normal 21.0-32.0 [facility] Comment on above: Performed By: #### C VDTBH #### [facility] [address] [place], [place] [id number] Dr. Nancy Montalvo Creatinine [Mass/Vol] 1.83 mg/dL Critically high 0.55-1.02 [facility] Comment on above: Performed By: #### C VDTBH #### [facility] [address] [address] [address] Nancy Montalvo EGFR-AF MAURITANIAN 32 mL/min/1.73m2 Critically low >=60 [facility] Comment on above: Performed By: #### C VDTBH #### [facility] [address] [address] [address] Nancy Montalvo EGFR-NON AF MAURITANIAN 26 mL/min/1.73m2 Critically low >=60 [facility] Comment on above: Performed By: #### C VDTBH #### [facility] [address] [place] [address] Dr. Nancy Montalvo Globulin (S) [Mass/Vol] 3.9 g/dL Normal [facility] Comment on above: Performed By: #### C VDTBH #### [facility] [address] [place] [address] Dr. Nancy Montalvo Glucose [Mass/Vol] 123 mg/dL Critically high 74-106 [facility] Comment on above: Performed By: #### C VDTBH #### [facility] [address] [place] [address] Dr. Nancy Montalvo Potassium [Moles/Vol] 3.3 mmol/L Critically low 3.5-5.1 [facility] Comment on above: Performed By: #### C VDTBH #### [facility] [address] [place] [address] Dr. Nancy Montalvo Protein [Mass/Vol] 5.5 g/dL Critically low 6.4-8.2 [facility] Comment on above: Performed By: #### C VDTBH #### [facility] [address] [place] [address] Dr. Nancy Montalvo Sodium [Moles/Vol] 140 mmol/L Normal 136-145 [facility] Comment on above: Performed By: #### C VDTBH #### [facility] [address] [place] [address] Dr. Nancy Montalvo Urea nitrogen [Mass/Vol] 27.0 mg/dL Critically high 7.0-18.0 [facility] Comment on above: Performed By: #### C VDTBH #### [facility] [address] [place] [address] Dr. Nancy Montalvo Urea nitrogen/Creatinine [Mass ratio] 14.8 mg/mg Normal [facility] Comment on above: Performed By: #### C VDTBH #### [facility] [address] [place] [address] Dr. Nancy Montalvo PROTIMEon 07-21-2022 INR Coag (PPP) [Relative time] 3.20 {INR} Normal [facility] Comment on above: Performed By: #### P OCGLUC #### [facility] [address] [place] [address] Dr. Nancy Montalvo INR GUIDELINES SEE BELOW Normal [facility] Comment on above: Result Comment: ADITYA RED INR: 2.0 - 3.0 CONDITIONS NOT LISTED BELOW 2.5 - 3.5 FOR PROSTHETIC HEART VALVE REPLACEMENT 2.5 - 3.5 RECURRENT THROMBOSIS Performed By: #### P OCGLUC #### [facility] [address] [place] [address] Dr. Nancy Montalvo PT Coag (PPP) [Time] 31.8 s Critically high 9.0-11.6 [facility] Comment on above: Performed By: #### P OCGLUC #### [facility] [address] [place] [address] Dr. Nancy Montalvo UA (CLEAN/CATCH) AERIAL SPRAYER/MICRO I F IND.on 07-21-2022 Bilirubin Ql (U) Negative Normal NEGATIVE [facility] Comment on above: Performed By: #### C MP #### [facility] [address] [place] [address] Dr. Nancy Montalvo Clarity (U) CLEAR Normal CLEAR [facility] Comment on above: Performed By: #### C MP #### [facility] [address] [place] [address] Dr. Nancy Montalvo Color (U) LT. YELLOW Normal YELLOW [facility] Comment on above: Performed By: #### C MP #### [facility] [address] [place] [address] Dr. Nancy Montalvo Glucose Ql (U) 500 mg/dl Abnormal NEGATIVE [facility] Comment on above: Performed By: #### C MP #### [facility] [address] [place] [address] Dr. Nancy Montalvo Hemoglobin Ql (U) TRACE-INTACT Abnormal NEGATIVE [facility] Comment on above: Performed By: #### C MP #### [facility] [address] [place] [address] Dr. Nancy Montalvo Ketones Ql (U) Negative Normal NEGATIVE [facility] Comment on above: Performed By: #### C MP #### [facility] [address] [place] [address] Dr. Nancy Montalvo LEUKOCYTES LARGE Abnormal NEGATIVE [facility] Comment on above: Performed By: #### C MP #### [facility] [address] [place] [address] Dr. Nancy Montalvo Nitrite Ql (U) Negative Normal NEGATIVE [facility] Comment on above: Performed By: #### C MP #### [facility] [address] [place] [address] Dr. Nancy Montalvo pH (U) 5.5 [pH] Normal 5-9 [facility] Comment on above: Performed By: #### C MP #### [facility] [address] [place] [address] Dr. Nancy Montalvo SPEC GRAVITY 1.010 Normal 1.005-<=1.0 25 [facility] Comment on above: Performed By: #### C MP #### [facility] [address] [place] [address] Dr. Nancy Montalvo UA PROTEIN 30 mg/dl Abnormal NEGATIVE/ TRACE [facility] Comment on above: Performed By: #### C MP #### [facility] [address] [place] [address] Dr. Nancy Montalvo UR MICRO IND INDICATED Normal [facility] Comment on above: Performed By: #### C MP #### [facility] [address] [place] [address] Dr. Nancy Montalvo Urobilinogen Qn (U) 0.2 {Grant'U}/dL Normal 0.2 - 1. 0 [facility] Comment on above: Performed By: #### C MP #### [facility] [address] [place] [address] Dr. Nancy Montalvo URINE MICROSCOPIC ONLYon BACTERIA MODERATE Abnormal NONE SEEN [facility] Comment on above: Performed By: #### C MP #### [facility] [address] [place] [address] Dr. Nancy Montalvo Bacteria identified Cx Nom (U) INDICATED Normal [facility] Comment on above: Performed By: #### C MP #### [facility] [address] [place] [address] Dr. Nancy Montalvo CAST NONE SEEN Normal NONE SEEN [facility] Comment on above: Performed By: #### C MP #### [facility] [address] [place] [address] Dr. Nancy Montalvo Crystals LM Nom (Urine sed) NONE SEEN Normal NONE SEEN [facility] Comment on above: Performed By: #### C MP #### [facility] [address] [place] [address] Dr. Nancy Montalvo Epithelial cells LM Ql (Urine sed) FEW Abnormal NONE SEEN /RARE [facility] Comment on above: Performed By: #### C MP #### [facility] [address] [place] [address] Dr. Nancy Montalvo MUCOUS NONE SEEN Normal NONE SEEN [facility] Comment on above: Performed By: #### C MP #### [facility] [address] [place] [address] Dr. Nancy Montalvo RBC 2-5 Abnormal 0-2 [facility] Comment on above: Performed By: #### C MP #### [facility] [address] [place] [address] Dr. Nancy Montalvo WBC (U) [#/Vol] /uL Abnormal NONE SEEN [facility] Comment on above: Performed By: #### C MP #### [facility] [address] [place] [address] Dr. Nancy Montalvo YEAST PRESENT Abnormal NONE SEEN [facility] Comment on above: Performed By: #### C MP #### [facility] [address] [place] [address] Dr. Nancy Montalvo PROTIMEon 07-19-2022 INR Coag (PPP) [Relative time] 8.00 {INR} Critically high [facility] Comment on above: Performed By: #### P OCGLUC #### [facility] [address] [place] [address] Dr. Nancy Montalvo INR GUIDELINES SEE BELOW Normal [facility] Comment on above: Result Comment: ADITYA RED INR: 2.0 - 3.0 CONDITIONS NOT LISTED BELOW 2.5 - 3.5 FOR PROSTHETIC HEART VALVE REPLACEMENT 2.5 - 3.5 RECURRENT THROMBOSIS Performed By: #### P OCGLUC #### [facility] [address] [place] [address] Dr. Nancy Montalvo PT Coag (PPP) [Time] 90.0 s Critically high 9.0-11.6 [facility] Comment on above: Performed By: #### P OCGLUC #### [facility] [address] [place] [address] Dr. Nancy Montalvo CBC AUTO DIFFon 07-14-2022 BASO # 0.0 103/ul Normal 0.0-0.1 [facility] Comment on above: Performed By: #### P OCGLUC #### [facility] [address] [place] [address] Dr. Nancy Montalvo Basophils/100 WBC (Bld) 0.2 % Normal 0.2-2.0 [facility] Comment on above: Performed By: #### P OCGLUC #### [facility] [address] [place] [address] Dr. Nancy Montalvo EO # 0.1 103/ul Normal 0.0-0.7 [facility] Comment on above: Performed By: #### P OCGLUC #### [facility] [address] [place] [address] Dr. Nancy Montalvo Eosinophils/100 WBC (Bld) 0.4 % Critically low 0.9-7.0 [facility] Comment on above: Performed By: #### P OCGLUC #### [facility] [address] [place] [address] Dr. Nancy Montalvo Erythrocyte distribution width (RBC) [Ratio] 14.0 % Normal 11.0-15.0 [facility] Comment on above: Performed By: #### P OCGLUC #### [facility] [address] [place] [address] Dr. Nancy Montalvo Hematocrit (Bld) [Volume fraction] 30.8 % Critically low 36.0-48.0 [facility] Comment on above: Performed By: #### P OCGLUC #### [facility] [address] [place] [address] Dr. Nancy Montalvo Hemoglobin (Bld) [Mass/Vol] 9.5 g/dL Critically low 12.0-16.0 [facility] Comment on above: Performed By: #### P OCGLUC #### [facility] [address] [place] [address] Dr. Nancy Montalvo IG # 0.17 10e3/ul Critically high 0.00-0.03 [facility] Comment on above: Performed By: #### P OCGLUC #### [facility] [address] [place] [address] Dr. Nancy Montalvo IG % 1.3 % Critically high 0.0-0.5 [facility] Comment on above: Performed By: #### P OCGLUC #### [facility] [address] [place] [address] Dr. Nancy Montalvo LYMPH # 1.4 103/ul Normal 1.2-3.8 [facility] Comment on above: Performed By: #### P OCGLUC #### [facility] [address] [place] [address] Dr. Nancy Montalvo Lymphocytes/100 WBC (Bld) 10.7 % Critically low 20.5-60.0 [facility] Comment on above: Performed By: #### P OCGLUC #### [facility] [address] [place] [address] Dr. Nancy Montalvo MANUAL DIFF REQ NO Normal [facility] Comment on above: Performed By: #### P OCGLUC #### [facility] [address] [place] [address] Dr. Nancy Montalvo MCH (RBC) [Entitic mass] 30.5 pg Normal 26.7-34.0 [facility] Comment on above: Performed By: #### P OCGLUC #### [facility] [address] [place] [address] Dr. Nancy Montalvo MCHC (RBC) [Mass/Vol] 30.8 g/dL Normal 29.9-35.2 [facility] Comment on above: Performed By: #### P OCGLUC #### [facility] [address] [place] [address] Dr. Nancy Montalvo MCV (RBC) [Entitic vol] 99.0 fL Normal 81.0-99.0 [facility] Comment on above: Performed By: #### P OCGLUC #### [facility] [address] [place] [address] Dr. Nancy Montalvo MONO # 0.6 103/ul Normal 0.3-0.8 [facility] Comment on above: Performed By: #### P OCGLUC #### [facility] [address] [place] [address] Dr. Nancy Montalvo Monocytes/100 WBC (Bld) 5.0 % Normal 1.7-12.0 [facility] Comment on above: Performed By: #### P OCGLUC #### [facility] [address] [place] [address] Dr. Nancy Montalvo NEUT # 10.4 103/ul Critically high 1.4-6.5 [facility] Comment on above: Performed By: #### P OCGLUC #### [facility] [address] [place] [address] Dr. Nancy Montalvo Neutrophils/100 WBC (Bld) 82.4 % Critically high 43.0-75.0 [facility] Comment on above: Performed By: #### P OCGLUC #### [facility] [address] [place] [address] Dr. Nancy Montalvo Platelet mean volume (Bld) [Entitic vol] 11.9 fL Normal 9.5-13.5 [facility] Comment on above: Performed By: #### P OCGLUC #### [facility] [address] [place] [address] Dr. Nancy Montalvo PLT 136 103/ul Critically low 150-450 [facility] Comment on above: Performed By: #### P OCGLUC #### [facility] [address] [address] [address] Nancy Monatlvo RBC 3.11 106/ul Critically low 4.20-5.40 [facility] Comment on above: Performed By: #### P OCGLUC #### [facility] [address] [place] [address] Dr. Nancy Montalvo WBC 12.7 103/ul Critically high 4.0-11.0 [facility] Comment on above: Performed By: #### P OCGLUC #### [facility] [address] [place] [address] Dr. Nancy Montalvo PROF 14(COMP METB)on 023 Albumin [Mass/Vol] 1.7 g/dL Critically low 3.4-5.0 [facility] Comment on above: Performed By: #### B [id number] #### [facility] [address] [place] [address] Dr. Nancy Montalvo Albumin/Globulin [Mass ratio] 0.5 {ratio} Normal [facility] Comment on above: Performed By: #### B [id number] #### [facility] [address] [place] [address] Dr. Nancy Montalvo ALP [Catalytic activity/Vol] 97 U/L Normal 46-116 [facility] Comment on above: Performed By: #### B [id number] #### [facility] [address] [place] [address] Dr. Nancy Montalvo ALT [Catalytic activity/Vol] 65 U/L Critically high 14-59 [facility] Comment on above: Performed By: #### B [id number] #### [facility] [address] [place], [place] [id number] Dr. Nancy Montalvo Anion gap [Moles/Vol] 15.2 mmol/L Normal [facility] Comment on above: Performed By: #### B [id number] #### [facility] [address] [place] [address] Dr. Nancy Montalvo AST [Catalytic activity/Vol] 28 U/L Normal 15-37 [facility] Comment on above: Performed By: #### B [id number] #### [facility] [address] [place] [address] Dr. Nancy Montalvo Bilirubin [Mass/Vol] 0.4 mg/dL Normal 0.2-1.0 [facility] Comment on above: Performed By: #### B [id number] #### [facility] [address] [place] [address] Dr. Nancy Montalvo Calcium [Mass/Vol] 8.4 mg/dL Critically low 8.5-10.1 [facility] Comment on above: Performed By: #### B [id number] #### [facility] [address] [place] [address] Dr. Nancy Montalvo Chloride [Moles/Vol] 108 mmol/L Critically high 98-107 [facility] Comment on above: Performed By: #### B [id number] #### [facility] [address] [place] [address] Dr. Nancy Montalvo CO2 [Moles/Vol] 24.6 mmol/L Normal 21.0-32.0 [facility] Comment on above: Performed By: #### B [id number] #### [facility] [address] [place] [address] Dr. Nancy Montalvo Creatinine [Mass/Vol] 2.22 mg/dL Critically high 0.55-1.02 [facility] Comment on above: Performed By: #### B [id number] #### [facility] [address] [place] [address] Dr. Nanyc Montalvo EGFR-AF MAURITANIAN 25 mL/min/1.73m2 Critically low >=60 [facility] Comment on above: Performed By: #### B [id number] #### [facility] [address] [address] [address] Nancy Montalvo EGFR-NON AF MAURITANIAN 21 mL/min/1.73m2 Critically low >=60 [facility] Comment on above: Performed By: #### B [id number] #### [facility] [address] [address] [address] Nancy Montalvo Globulin (S) [Mass/Vol] 3.4 g/dL Normal [facility] Comment on above: Performed By: #### B [id number] #### [facility] [address] [address] [address] Nancy Montalvo Glucose [Mass/Vol] 86 mg/dL Normal 74-106 [facility] Comment on above: Performed By: #### B [id number] #### [facility] [address] [address] [address] Nancy Montalvo Potassium [Moles/Vol] 3.8 mmol/L Normal 3.5-5.1 [facility] Comment on above: Performed By: #### B [id number] #### [facility] [address] [address] [address] Nancy Montalvo Protein [Mass/Vol] 5.1 g/dL Critically low 6.4-8.2 [facility] Comment on above: Performed By: #### B [id number] #### [facility] [address] [address] [address] Nancy Montalvo Sodium [Moles/Vol] 144 mmol/L Normal 136-145 [facility] Comment on above: Performed By: #### B [id number] #### [facility] [address] [address] [address] Nancy Montalvo Urea nitrogen [Mass/Vol] 34.0 mg/dL Critically high 7.0-18.0 [facility] Comment on above: Performed By: #### B [id number] #### [facility] [address] [address] [address] Nancy Montalvo Urea nitrogen/Creatinine [Mass ratio] 15.3 mg/mg Normal [facility] Comment on above: Performed By: #### B [id number] #### [facility] [address] [place], [place] [address] Dr. Nancy Montalvo PROTIMEon 07-14-2022 INR Coag (PPP) [Relative time] 3.39 {INR} Normal [facility] Comment on above: Performed By: #### P OCGLUC #### [facility] [address] [place] [address] Dr. Nancy Montalvo INR GUIDELINES SEE BELOW Normal [facility] Comment on above: Result Comment: ADITYA RED INR: 2.0 - 3.0 CONDITIONS NOT LISTED BELOW 2.5 - 3.5 FOR PROSTHETIC HEART VALVE REPLACEMENT 2.5 - 3.5 RECURRENT THROMBOSIS Performed By: #### P OCGLUC #### [facility] [address] [place] [address] Dr. Nancy Montalvo PT Coag (PPP) [Time] 33.5 s Critically high 9.0-11.6 [facility] Comment on above: Performed By: #### P OCGLUC #### [facility] [address] [place] [address] Dr. Nancy Montalvo CBC AUTO DIFFon 07-13-2022 BASO # 0.0 103/ul Normal 0.0-0.1 [facility] Comment on above: Performed By: #### P OCGLUC #### [facility] [address] [place] [address] Dr. Nancy Montalvo Basophils/100 WBC (Bld) 0.3 % Normal 0.2-2.0 [facility] Comment on above: Performed By: #### P OCGLUC #### [facility] [address] [place] [address] Dr. Nancy Montalvo EO # 0.1 103/ul Normal 0.0-0.7 [facility] Comment on above: Performed By: #### P OCGLUC #### [facility] [address] [place] [address] Dr. Nancy Montalvo Eosinophils/100 WBC (Bld) 0.4 % Critically low 0.9-7.0 [facility] Comment on above: Performed By: #### P OCGLUC #### [facility] [address] [place], [place] [id number] Dr. Nancy Montalvo Erythrocyte distribution width (RBC) [Ratio] 13.4 % Normal 11.0-15.0 [facility] Comment on above: Performed By: #### P OCGLUC #### [facility] [address] [place] [address] Dr. Nancy Montalvo Hematocrit (Bld) [Volume fraction] 29.9 % Critically low 36.0-48.0 [facility] Comment on above: Performed By: #### P OCGLUC #### [facility] [address] [place] [address] Dr. Nancy Montalvo Hemoglobin (Bld) [Mass/Vol] 9.5 g/dL Critically low 12.0-16.0 [facility] Comment on above: Performed By: #### P OCGLUC #### [facility] [address] [place] [address] Dr. Nancy Montalvo IG # 0.16 10e3/ul Critically high 0.00-0.03 [facility] Comment on above: Performed By: #### P OCGLUC #### [facility] [address] [place] [address] Dr. Nancy Montalvo IG % 1.4 % Critically high 0.0-0.5 [facility] Comment on above: Performed By: #### P OCGLUC #### [facility] [address] [place] [address] Dr. Nancy Montalvo LYMPH # 1.0 103/ul Critically low 1.2-3.8 [facility] Comment on above: Performed By: #### P OCGLUC #### [facility] [address] [place] [address] Dr. Nancy Montalvo Lymphocytes/100 WBC (Bld) 8.4 % Critically low 20.5-60.0 [facility] Comment on above: Performed By: #### P OCGLUC #### [facility] [address] [place] [address] Dr. Nancy Montalvo MANUAL DIFF REQ NO Normal [facility] Comment on above: Performed By: #### P OCGLUC #### [facility] [address] [place], [place] [id number] Dr. Nancy Montalvo MCH (RBC) [Entitic mass] 31.3 pg Normal 26.7-34.0 [facility] Comment on above: Performed By: #### P OCGLUC #### [facility] [address] [place] [address] Dr. Nancy Montalvo MCHC (RBC) [Mass/Vol] 31.8 g/dL Normal 29.9-35.2 [facility] Comment on above: Performed By: #### P OCGLUC #### [facility] [address] [place] [address] Dr. Nancy Montalvo MCV (RBC) [Entitic vol] 98.4 fL Normal 81.0-99.0 [facility] Comment on above: Performed By: #### P OCGLUC #### [facility] [address] [place] [address] Dr. Nancy Montalvo MONO # 0.4 103/ul Normal 0.3-0.8 [facility] Comment on above: Performed By: #### P OCGLUC #### [facility] [address] [place] [address] Dr. Nancy Montalvo Monocytes/100 WBC (Bld) 3.7 % Normal 1.7-12.0 [facility] Comment on above: Performed By: #### P OCGLUC #### [facility] [address] [place] [address] Dr. Nancy Montalvo NEUT # 10.1 103/ul Critically high 1.4-6.5 [facility] Comment on above: Performed By: #### P OCGLUC #### [facility] [address] [place] [address] Dr. Nancy Montalvo Neutrophils/100 WBC (Bld) 85.8 % Critically high 43.0-75.0 [facility] Comment on above: Performed By: #### P OCGLUC #### [facility] [address] [place] [address] Dr. Nancy Montalvo Platelet mean volume (Bld) [Entitic vol] 12.3 fL Normal 9.5-13.5 [facility] Comment on above: Performed By: #### P OCGLUC #### [facility] [address] [address] [address] Nancy Montalvo PLT 119 103/ul Critically low 150-450 [facility] Comment on above: Performed By: #### P OCGLUC #### [facility] [address] [address] [address] Nancy Montalvo RBC 3.04 106/ul Critically low 4.20-5.40 [facility] Comment on above: Performed By: #### P OCGLUC #### [facility] [address] [address] [address] Nancy Montalvo WBC 11.7 103/ul Critically high 4.0-11.0 [facility] Comment on above: Performed By: #### P OCGLUC #### [facility] [address] [place] [address] Dr. Nancy Montalvo POINT OF CARE GLUCOSEon 06-18 Glucose [Mass/Vol] 143 mg/dL Critically high 74-106 [facility] Comment on above: Performed By: #### U AMIC #### [facility] [address] [address] [address] Nancy Montalvo PROF 14(COMP METB)on 023 Albumin [Mass/Vol] 1.6 g/dL Critically low 3.4-5.0 [facility] Comment on above: Performed By: #### C VDTBH #### [facility] [address] [address] [address] Nancy Montalvo Albumin/Globulin [Mass ratio] 0.5 {ratio} Normal [facility] Comment on above: Performed By: #### C VDTBH #### [facility] [address] [address] [address] Nancy oMntalvo ALP [Catalytic activity/Vol] 102 U/L Normal 46-116 [facility] Comment on above: Performed By: #### C VDTBH #### [facility] [address] [address] [address] Nancy Montalvo ALT [Catalytic activity/Vol] 79 U/L Critically high 14-59 [facility] Comment on above: Performed By: #### C VDTBH #### [facility] [address] [address] [address] Nancy Montalvo Anion gap [Moles/Vol] 13.1 mmol/L Normal [facility] Comment on above: Performed By: #### C VDTBH #### [facility] [address] [address] [address] Nancy Montalvo AST [Catalytic activity/Vol] 31 U/L Normal 15-37 [facility] Comment on above: Performed By: #### C VDTBH #### [facility] [address] [address] [address] Nancy Montalvo Bilirubin [Mass/Vol] 0.4 mg/dL Normal 0.2-1.0 [facility] Comment on above: Performed By: #### C VDTBH #### [facility] [address] [address] [address] Nancy Montalvo Calcium [Mass/Vol] 8.1 mg/dL Critically low 8.5-10.1 [facility] Comment on above: Performed By: #### C VDTBH #### [facility] [address] [address] [address] Nancy Montalvo Chloride [Moles/Vol] 108 mmol/L Critically high 98-107 [facility] Comment on above: Performed By: #### C VDTBH #### [facility] [address] [address] [address] Nancy Montalvo CO2 [Moles/Vol] 23.4 mmol/L Normal 21.0-32.0 [facility] Comment on above: Performed By: #### C VDTBH #### [facility] [address] [address] [address] Nancy Montalvo Creatinine [Mass/Vol] 2.33 mg/dL Critically high 0.55-1.02 [facility] Comment on above: Performed By: #### C VDTBH #### [facility] [address] [address] [address] Nancy Montalvo EGFR-AF MAURITANIAN 24 mL/min/1.73m2 Critically low >=60 [facility] Comment on above: Performed By: #### C VDTBH #### [facility] [address] [address] [address] Nancy Montalvo EGFR-NON AF MAURITANIAN 20 mL/min/1.73m2 Critically low >=60 [facility] Comment on above: Performed By: #### C VDTBH #### [facility] [address] [address] [address] Nancy Montalvo Globulin (S) [Mass/Vol] 3.3 g/dL Normal [facility] Comment on above: Performed By: #### C VDTBH #### [facility] [address] [address] [address] Nancy Montalvo Glucose [Mass/Vol] 107 mg/dL Critically high 74-106 [facility] Comment on above: Performed By: #### C VDTBH #### [facility] [address] [address] [address] Nancy Montalvo Potassium [Moles/Vol] 3.5 mmol/L Normal 3.5-5.1 [facility] Comment on above: Performed By: #### C VDTBH #### [facility] [address] [address] [address] Nancy Montalvo Protein [Mass/Vol] 4.9 g/dL Critically low 6.4-8.2 [facility] Comment on above: Performed By: #### C VDTBH #### [facility] [address] [address] [address] Nancy Montalvo Sodium [Moles/Vol] 141 mmol/L Normal 136-145 [facility] Comment on above: Performed By: #### C VDTBH #### [facility] [address] [address] [address] Nancy Montalvo Urea nitrogen [Mass/Vol] 39.0 mg/dL Critically high 7.0-18.0 [facility] Comment on above: Performed By: #### C VDTBH #### [facility] [address] [address] [address] Nancy Montalvo Urea nitrogen/Creatinine [Mass ratio] 16.7 mg/mg Normal [facility] Comment on above: Performed By: #### C VDTBH #### [facility] [address] [place] [address] Dr. Nancy Montalvo PROTIMEon 07-13-2022 INR Coag (PPP) [Relative time] 1.99 {INR} Normal [facility] Comment on above: Performed By: #### P OCGLUC #### [facility] [address] [place] [address] Dr. Nancy Montalvo INR GUIDELINES SEE BELOW Normal [facility] Comment on above: Result Comment: ADITYA RED INR: 2.0 - 3.0 CONDITIONS NOT LISTED BELOW 2.5 - 3.5 FOR PROSTHETIC HEART VALVE REPLACEMENT 2.5 - 3.5 RECURRENT THROMBOSIS Performed By: #### P OCGLUC #### [facility] [address] [place] [address] Dr. Nancy Montalvo PT Coag (PPP) [Time] 20.3 s Critically high 9.0-11.6 [facility] Comment on above: Performed By: #### P OCGLUC #### [facility] [address] [place] [address] Dr. Nancy Montalvo XR HIP LT 1V [...] is well-seated in the acetabulum. There are [id number] degenerative changes of the left hip. There are [id number] degenerative changes of the left sacroiliac joint [...] Ban ESCOBEDO Date: 2022-07-12 22:49 Normal [facility] CBC AUTO DIFFon 07-12-2022 BASO # 0.0 103/ul Normal 0.0-0.1 [facility] Comment on above: Performed By: #### U AMIC #### [facility] [address] [address] [address] Nancy Montalvo Basophils/100 WBC (Bld) 0.2 % Normal 0.2-2.0 [facility] Comment on above: Performed By: #### U AMIC #### [facility] [address] [place] [address] Dr. Nancy Montalvo EO # 0.1 103/ul Normal 0.0-0.7 [facility] Comment on above: Performed By: #### U AMIC #### [facility] [address] [address] [address] Nancy Montalvo Eosinophils/100 WBC (Bld) 0.8 % Critically low 0.9-7.0 [facility] Comment on above: Performed By: #### U AMIC #### [facility] [address] [place] [address] Dr. Nancy Montalvo Erythrocyte distribution width (RBC) [Ratio] 13.2 % Normal 11.0-15.0 [facility] Comment on above: Performed By: #### U AMIC #### [facility] [address] [place] [address] Dr. Nancy Montalvo Hematocrit (Bld) [Volume fraction] 30.7 % Critically low 36.0-48.0 [facility] Comment on above: Performed By: #### U AMIC #### [facility] [address] [place] [address] Dr. Nancy Montalvo Hemoglobin (Bld) [Mass/Vol] 10.0 g/dL Critically low 12.0-16.0 [facility] Comment on above: Performed By: #### U AMIC #### [facility] [address] [address] [address] Nancy Montalvo IG # 0.20 10e3/ul Critically high 0.00-0.03 [facility] Comment on above: Performed By: #### U AMIC #### [facility] [address] [place] [address] Dr. Nancy Montalvo IG % 1.5 % Critically high 0.0-0.5 [facility] Comment on above: Performed By: #### U AMIC #### [facility] [address] [address] [address] Nancy Montalvo LYMPH # 1.2 103/ul Normal 1.2-3.8 [facility] Comment on above: Performed By: #### U AMIC #### [facility] [address] [place] [address] Dr. Nancy Montalvo Lymphocytes/100 WBC (Bld) 8.9 % Critically low 20.5-60.0 [facility] Comment on above: Performed By: #### U AMIC #### [facility] [address] [place] [address] Dr. Nancy Montalvo MANUAL DIFF REQ NO Normal [facility] Comment on above: Performed By: #### U AMIC #### [facility] [address] [place] [address] Dr. Nancy Montalvo MCH (RBC) [Entitic mass] 31.6 pg Normal 26.7-34.0 [facility] Comment on above: Performed By: #### U AMIC #### [facility] [address] [address] [address] Nancy Montalvo MCHC (RBC) [Mass/Vol] 32.6 g/dL Normal 29.9-35.2 [facility] Comment on above: Performed By: #### U AMIC #### [facility] [address] [place] [address] Dr. Nancy Montalvo MCV (RBC) [Entitic vol] 97.2 fL Normal 81.0-99.0 [facility] Comment on above: Performed By: #### U AMIC #### [facility] [address] [place] [address] Dr. Nancy Montalvo MONO # 0.5 103/ul Normal 0.3-0.8 [facility] Comment on above: Performed By: #### U AMIC #### [facility] [address] [address] [address] Nancy Montalvo Monocytes/100 WBC (Bld) 3.6 % Normal 1.7-12.0 [facility] Comment on above: Performed By: #### U AMIC #### [facility] [address] [address] [address] Nancy Montalvo NEUT # 11.1 103/ul Critically high 1.4-6.5 [facility] Comment on above: Performed By: #### U AMIC #### [facility] [address] [place] [address] Dr. Nancy Montalvo Neutrophils/100 WBC (Bld) 85.0 % Critically high 43.0-75.0 [facility] Comment on above: Performed By: #### U AMIC #### [facility] [address] [place] [address] Dr. Nancy Montalvo Platelet mean volume (Bld) [Entitic vol] 13.1 fL Normal 9.5-13.5 [facility] Comment on above: Performed By: #### U AMIC #### [facility] [address] [place] [address] Dr. Nancy Montalvo PLT 107 103/ul Critically low 150-450 [facility] Comment on above: Performed By: #### U AMIC #### [facility] [address] [place] [address] Dr. Nancy Montalvo RBC 3.16 106/ul Critically low 4.20-5.40 [facility] Comment on above: Performed By: #### U AMIC #### [facility] [address] [place] [address] Dr. Nancy Montalvo WBC 13.0 103/ul Critically high 4.0-11.0 [facility] Comment on above: Performed By: #### U AMIC #### [facility] [address] [place] [address] Dr. Nancy Montalvo CULTURE URINEon 07-12-2022 CULTURE [...] F Trimethoprim/Sulfamethoxazo le <=20 S F Normal [facility] Comment on above: Performed By: #### U RCX #### [facility] [address] [place] [address] Dr. Nancy Montalvo PROF 14(COMP METB)on 023 Albumin [Mass/Vol] 1.7 g/dL Critically low 3.4-5.0 [facility] Comment on above: Performed By: #### C MP #### [facility] [address] [place] [address] Dr. Nancy Montalvo Albumin/Globulin [Mass ratio] 0.5 {ratio} Normal [facility] Comment on above: Performed By: #### C MP #### [facility] [address] [place] [address] Dr. Nancy Montalvo ALP [Catalytic activity/Vol] 102 U/L Normal 46-116 [facility] Comment on above: Performed By: #### C MP #### [facility] [address] [place] [address] Dr. Nancy Montalvo ALT [Catalytic activity/Vol] 95 U/L Critically high 14-59 [facility] Comment on above: Performed By: #### C MP #### [facility] [address] [place] [address] Dr. Nancy Montalvo Anion gap [Moles/Vol] 14.1 mmol/L Normal [facility] Comment on above: Performed By: #### C MP #### [facility] [address] [address] [address] Nancy Montalvo AST [Catalytic activity/Vol] 15 U/L Normal 15-37 [facility] Comment on above: Performed By: #### C MP #### [facility] [address] [address] [address] Nancy Montalvo Bilirubin [Mass/Vol] 0.5 mg/dL Normal 0.2-1.0 [facility] Comment on above: Performed By: #### C MP #### [facility] [address] [address] [address] Nancy Montalvo Calcium [Mass/Vol] 8.2 mg/dL Critically low 8.5-10.1 [facility] Comment on above: Performed By: #### C MP #### [facility] [address] [address] [address] Nancy Montalvo Chloride [Moles/Vol] 103 mmol/L Normal 98-107 [facility] Comment on above: Performed By: #### C MP #### [facility] [address] [address] [address] Nancy Montalvo CO2 [Moles/Vol] 23.4 mmol/L Normal 21.0-32.0 [facility] Comment on above: Performed By: #### C MP #### [facility] [address] [address] [address] Nancy Montalvo Creatinine [Mass/Vol] 2.68 mg/dL Critically high 0.55-1.02 [facility] Comment on above: Performed By: #### C MP #### [facility] [address] [address] [address] Nancy Montalvo EGFR-AF MAURITANIAN 20 mL/min/1.73m2 Critically low >=60 [facility] Comment on above: Performed By: #### C MP #### [facility] [address] [address] [address] Nancy Montalvo EGFR-NON AF MAURITANIAN 17 mL/min/1.73m2 Critically low >=60 [facility] Comment on above: Performed By: #### C MP #### [facility] [address] [address] [address] Nancy Montalvo Globulin (S) [Mass/Vol] 3.1 g/dL Normal [facility] Comment on above: Performed By: #### C MP #### [facility] [address] [address] [address] Nancy Montalvo Glucose [Mass/Vol] 118 mg/dL Critically high 74-106 [facility] Comment on above: Performed By: #### C MP #### [facility] [address] [address] [address] Nancy Montalvo Potassium [Moles/Vol] 3.5 mmol/L Normal 3.5-5.1 [facility] Comment on above: Performed By: #### C MP #### [facility] [address] [place] [address] Dr. Nancy Montalvo Protein [Mass/Vol] 4.8 g/dL Critically low 6.4-8.2 [facility] Comment on above: Performed By: #### C MP #### [facility] [address] [place] [address] Dr. Nancy Montalvo Sodium [Moles/Vol] 137 mmol/L Normal 136-145 [facility] Comment on above: Performed By: #### C MP #### [facility] [address] [place] [address] Dr. Nancy Montalvo Urea nitrogen [Mass/Vol] 43.0 mg/dL Critically high 7.0-18.0 [facility] Comment on above: Performed By: #### C MP #### [facility] [address] [place] [address] Dr. Nancy Montalvo Urea nitrogen/Creatinine [Mass ratio] 16.0 mg/mg Normal [facility] Comment on above: Performed By: #### C MP #### [facility] [address] [place] [address] Dr. Nancy Montalvo PROTIMEon 07-12-2022 INR Coag (PPP) [Relative time] 2.27 {INR} Normal [facility] Comment on above: Performed By: #### P OCGLUC #### [facility] [address] [place] [address] Dr. Nancy Montalvo INR GUIDELINES SEE BELOW Normal [facility] Comment on above: Result Comment: ADITYA RED INR: 2.0 - 3.0 CONDITIONS NOT LISTED BELOW 2.5 - 3.5 FOR PROSTHETIC HEART VALVE REPLACEMENT 2.5 - 3.5 RECURRENT THROMBOSIS Performed By: #### P OCGLUC #### [facility] [address] [place] [address] Dr. Nancy Montalvo PT Coag (PPP) [Time] 23.0 s Critically high 9.0-11.6 [facility] Comment on above: Performed By: #### P OCGLUC #### [facility] [address] [place] [address] Dr. Nancy Montalvo CBC AUTO DIFFon 07-11-2022 BASO # 0.1 103/ul Normal 0.0-0.1 [facility] Comment on above: Performed By: #### P OCGLUC #### [facility] [address] [place] [address] Dr. Nancy Montalvo Basophils/100 WBC (Bld) 0.3 % Normal 0.2-2.0 [facility] Comment on above: Performed By: #### P OCGLUC #### [facility] [address] [place] [address] Dr. Nancy Montalvo EO # 0.1 103/ul Normal 0.0-0.7 [facility] Comment on above: Performed By: #### P OCGLUC #### [facility] [address] [place] [address] Dr. Nancy Montalvo Eosinophils/100 WBC (Bld) 0.3 % Critically low 0.9-7.0 [facility] Comment on above: Performed By: #### P OCGLUC #### [facility] [address] [place] [address] Dr. Nancy Montalvo Erythrocyte distribution width (RBC) [Ratio] 13.3 % Normal 11.0-15.0 [facility] Comment on above: Performed By: #### P OCGLUC #### [facility] [address] [place] [address] Dr. Nancy Montalvo Hematocrit (Bld) [Volume fraction] 37.5 % Normal 36.0-48.0 [facility] Comment on above: Performed By: #### P OCGLUC #### [facility] [address] [place] [address] Dr. Nancy Montalvo Hemoglobin (Bld) [Mass/Vol] 11.5 g/dL Critically low 12.0-16.0 [facility] Comment on above: Performed By: #### P OCGLUC #### [facility] [address] [address] [address] Nancy Montalvo IG # 0.29 10e3/ul Critically high 0.00-0.03 [facility] Comment on above: Performed By: #### P OCGLUC #### [facility] [address] [place] [address] Dr. Nancy Montalvo IG % 1.8 % Critically high 0.0-0.5 [facility] Comment on above: Performed By: #### P OCGLUC #### [facility] [address] [place] [address] Dr. Nancy Montalvo LYMPH # 2.2 103/ul Normal 1.2-3.8 [facility] Comment on above: Performed By: #### P OCGLUC #### [facility] [address] [place] [address] Dr. Nancy Montalvo Lymphocytes/100 WBC (Bld) 13.2 % Critically low 20.5-60.0 [facility] Comment on above: Performed By: #### P OCGLUC #### [facility] [address] [place] [address] Dr. Nancy Montalvo MANUAL DIFF REQ NO Normal [facility] Comment on above: Performed By: #### P OCGLUC #### [facility] [address] [place] [address] Dr. Nancy Montalvo MCH (RBC) [Entitic mass] 31.3 pg Normal 26.7-34.0 [facility] Comment on above: Performed By: #### P OCGLUC #### [facility] [address] [place] [address] Dr. Nancy Montalvo MCHC (RBC) [Mass/Vol] 30.7 g/dL Normal 29.9-35.2 [facility] Comment on above: Performed By: #### P OCGLUC #### [facility] [address] [place] [address] Dr. Nancy Montalvo MCV (RBC) [Entitic vol] 101.9 fL Critically high 81.0-99.0 [facility] Comment on above: Performed By: #### P OCGLUC #### [facility] [address] [place] [address] Dr. Nancy Montalvo MONO # 0.4 103/ul Normal 0.3-0.8 [facility] Comment on above: Performed By: #### P OCGLUC #### [facility] [address] [place] [address] Dr. Nancy Montalvo Monocytes/100 WBC (Bld) 2.7 % Normal 1.7-12.0 [facility] Comment on above: Performed By: #### P OCGLUC #### [facility] [address] [place] [address] Dr. Nancy Montalvo NEUT # 13.5 103/ul Critically high 1.4-6.5 [facility] Comment on above: Performed By: #### P OCGLUC #### [facility] [address] [place] [address] Dr. Nancy Montalvo Neutrophils/100 WBC (Bld) 81.7 % Critically high 43.0-75.0 [facility] Comment on above: Performed By: #### P OCGLUC #### [facility] [address] [place] [address] Dr. Nancy Montalvo Platelet mean volume (Bld) [Entitic vol] 13.3 fL Normal 9.5-13.5 [facility] Comment on above: Performed By: #### P OCGLUC #### [facility] [address] [place] [address] Dr. Nancy Montalvo PLT 104 103/ul Critically low 150-450 [facility] Comment on above: Performed By: #### P OCGLUC #### [facility] [address] [place] [address] Dr. Nancy Montalvo RBC 3.68 106/ul Critically low 4.20-5.40 [facility] Comment on above: Performed By: #### P OCGLUC #### [facility] [address] [place] [address] Dr. Nancy Montalvo WBC 16.5 103/ul Critically high 4.0-11.0 [facility] Comment on above: Performed By: #### P OCGLUC #### [facility] [address] [place] [address] Dr. Nancy Montalvo PROF 14(COMP METB)on 023 Albumin [Mass/Vol] 1.9 g/dL Critically low 3.4-5.0 [facility] Comment on above: Performed By: #### P OCGLUC #### [facility] [address] [place] [address] Dr. Nancy Montalvo Albumin/Globulin [Mass ratio] 0.5 {ratio} Normal [facility] Comment on above: Performed By: #### P OCGLUC #### [facility] [address] [place] [address] Dr. Nancy Montalvo ALP [Catalytic activity/Vol] 136 U/L Critically high 46-116 [facility] Comment on above: Performed By: #### P OCGLUC #### [facility] [address] [place] [address] Dr. Nancy Montalvo ALT [Catalytic activity/Vol] 144 U/L Critically high 14-59 [facility] Comment on above: Performed By: #### P OCGLUC #### [facility] [address] [place] [address] Dr. Nancy Montalvo Anion gap [Moles/Vol] 14.4 mmol/L Normal [facility] Comment on above: Performed By: #### P OCGLUC #### [facility] [address] [place] [address] Dr. Nancy Montalvo AST [Catalytic activity/Vol] 37 U/L Normal 15-37 [facility] Comment on above: Performed By: #### P OCGLUC #### [facility] [address] [place] [address] Dr. Nancy Montalvo Bilirubin [Mass/Vol] 0.5 mg/dL Normal 0.2-1.0 [facility] Comment on above: Performed By: #### P OCGLUC #### [facility] [address] [address] [address] Nancy Montalvo Calcium [Mass/Vol] 8.4 mg/dL Critically low 8.5-10.1 [facility] Comment on above: Performed By: #### P OCGLUC #### [facility] [address] [address] [address] Nancy Montalvo Chloride [Moles/Vol] 103 mmol/L Normal 98-107 [facility] Comment on above: Performed By: #### P OCGLUC #### [facility] [address] [place] [address] Dr. Nancy Montalvo CO2 [Moles/Vol] 22.5 mmol/L Normal 21.0-32.0 [facility] Comment on above: Performed By: #### P OCGLUC #### [facility] [address] [address] [address] Nancy Montalvo Creatinine [Mass/Vol] 2.66 mg/dL Critically high 0.55-1.02 [facility] Comment on above: Performed By: #### P OCGLUC #### [facility] [address] [place] [address] Dr. Nancy Montalvo EGFR-AF MAURITANIAN 21 mL/min/1.73m2 Critically low >=60 [facility] Comment on above: Performed By: #### P OCGLUC #### [facility] [address] [address] [address] Nancy Montalvo EGFR-NON AF MAURITANIAN 17 mL/min/1.73m2 Critically low >=60 [facility] Comment on above: Performed By: #### P OCGLUC #### [facility] [address] [place] [address] Dr. Nancy Montalvo Globulin (S) [Mass/Vol] 3.7 g/dL Normal [facility] Comment on above: Performed By: #### P OCGLUC #### [facility] [address] [place] [address] Dr. Nancy Montalvo Glucose [Mass/Vol] 83 mg/dL Normal 74-106 [facility] Comment on above: Performed By: #### P OCGLUC #### [facility] [address] [address] [address] Nancy Montalvo Potassium [Moles/Vol] 3.9 mmol/L Normal 3.5-5.1 [facility] Comment on above: Performed By: #### P OCGLUC #### [facility] [address] [address] [address] Nancy Montalvo Protein [Mass/Vol] 5.6 g/dL Critically low 6.4-8.2 [facility] Comment on above: Performed By: #### P OCGLUC #### [facility] [address] [address] [address] Nancy Montalvo Sodium [Moles/Vol] 136 mmol/L Normal 136-145 [facility] Comment on above: Performed By: #### P OCGLUC #### [facility] [address] [address] [address] Nancy Montalvo Urea nitrogen [Mass/Vol] 40.0 mg/dL Critically high 7.0-18.0 [facility] Comment on above: Performed By: #### P OCGLUC #### [facility] [address] [place] [address] Dr. Nancy Montalvo Urea nitrogen/Creatinine [Mass ratio] 15.0 mg/mg Normal [facility] Comment on above: Performed By: #### P OCGLUC #### [facility] [address] [address] [address] Nancy Montalvo PROTIMEon 07-11-2022 INR Coag (PPP) [Relative time] 3.29 {INR} Normal [facility] Comment on above: Performed By: #### P OCGLUC #### [facility] [address] [place] [address] Dr. Nancy Montalvo INR GUIDELINES SEE BELOW Normal [facility] Comment on above: Result Comment: ADITYA RED INR: 2.0 - 3.0 CONDITIONS NOT LISTED BELOW 2.5 - 3.5 FOR PROSTHETIC HEART VALVE REPLACEMENT 2.5 - 3.5 RECURRENT THROMBOSIS Performed By: #### P OCGLUC #### [facility] [address] [place] [address] Dr. Nancy Montalvo PT Coag (PPP) [Time] 32.6 s Critically high 9.0-11.6 [facility] Comment on above: Performed By: #### P OCGLUC #### [facility] [address] [place] [address] Dr. Nancy Montalvo PTTon 07-11-2022 aPTT Coag (Bld) [Time] 68.0 s Critically high 22.3-36.2 [facility] Comment on above: Performed By: #### P OCGLUC #### [facility] [address] [place] [address] Dr. Nancy Montalvo CARDIAC DENILSNO 3-6on 3 CK [Catalytic activity/Vol] 51 U/L Normal 26-192 [facility] Comment on above: Performed By: #### P OCGLUC #### [facility] [address] [place] [address] Dr. Nancy Montalvo CK.MB [Mass/Vol] 1.01 ng/mL Normal <=3.60 [facility] Comment on above: Performed By: #### P OCGLUC #### [facility] [address] [place] [address] Dr. Nancy Montalvo HSTROP 45.8 pg/mL Normal 4.0-51.3 [facility] Comment on above: Result Comment: CUT- OFF POINTS HAVE BEEN ESTABLISHED BASED ON THE FOURTH UNIVERSAL DEFINITIONS OF MYOCARDIAL INFARCTION. THE UPPER REFERENCE LIMIT (URL) OF TROPONIN, DEFINED THE 99TH PERCENTILE OF cTnI DISTRIBUTION IN A REFERENCE POPULATION, HAS BEEN CONFIRMED THE DECISION THRESHOLD FOR UT DIAGNOSIS. Performed By: #### P OCGLUC #### [facility] [address] [place] [address] Dr. Nancy Montalvo CK [Catalytic activity/Vol] 54 U/L Normal 26-192 [facility] Comment on above: Performed By: #### P OCGLUC #### [facility] [address] [place] [address] Dr. Nancy Montalvo CK.MB [Mass/Vol] 0.89 ng/mL Normal <=3.60 [facility] Comment on above: Performed By: #### P OCGLUC #### [facility] [address] [place] [address] Dr. Nancy Montalvo HSTROP 58.5 pg/mL Critically high 4.0-51.3 [facility] Comment on above: Result Comment: CUT- OFF POINTS HAVE BEEN ESTABLISHED BASED ON THE FOURTH UNIVERSAL DEFINITIONS OF MYOCARDIAL INFARCTION. THE UPPER REFERENCE LIMIT (URL) OF TROPONIN, DEFINED THE 99TH PERCENTILE OF cTnI DISTRIBUTION IN A REFERENCE POPULATION, HAS BEEN CONFIRMED THE DECISION THRESHOLD FOR UT DIAGNOSIS. Performed By: #### P OCGLUC #### [facility] [address] [place] [address] Dr. Nancy Montalvo CBC AUTO DIFFon 07-10-2022 BASO # 0.1 103/ul Normal 0.0-0.1 [facility] Comment on above: Performed By: #### P OCGLUC #### [facility] [address] [place] [address] Dr. Nancy Montalvo Basophils/100 WBC (Bld) 0.2 % Normal 0.2-2.0 [facility] Comment on above: Performed By: #### P OCGLUC #### [facility] [address] [place] [address] Dr. Nancy Montalvo EO # 0.0 103/ul Normal 0.0-0.7 [facility] Comment on above: Performed By: #### P OCGLUC #### [facility] [address] [place] [address] Dr. Nancy Montalvo Eosinophils/100 WBC (Bld) 0.0 % Critically low 0.9-7.0 [facility] Comment on above: Performed By: #### P OCGLUC #### [facility] [address] [place] [address] Dr. Nancy Montalvo Erythrocyte distribution width (RBC) [Ratio] 13.0 % Normal 11.0-15.0 [facility] Comment on above: Performed By: #### P OCGLUC #### [facility] [address] [place] [address] Dr. Nancy Montalvo Hematocrit (Bld) [Volume fraction] 37.6 % Normal 36.0-48.0 [facility] Comment on above: Performed By: #### P OCGLUC #### [facility] [address] [place] [address] Dr. Nancy Montalvo Hemoglobin (Bld) [Mass/Vol] 12.5 g/dL Normal 12.0-16.0 [facility] Comment on above: Performed By: #### P OCGLUC #### [facility] [address] [address] [address] Nancy Montalvo IG # 0.23 10e3/ul Critically high 0.00-0.03 [facility] Comment on above: Performed By: #### P OCGLUC #### [facility] [address] [place] [address] Dr. Nancy Montalvo IG % 1.1 % Critically high 0.0-0.5 [facility] Comment on above: Performed By: #### P OCGLUC #### [facility] [address] [place] [address] Dr. Nancy Montalvo LYMPH # 1.5 103/ul Normal 1.2-3.8 [facility] Comment on above: Performed By: #### P OCGLUC #### [facility] [address] [place] [address] Dr. Nancy Montalvo Lymphocytes/100 WBC (Bld) 7.4 % Critically low 20.5-60.0 [facility] Comment on above: Performed By: #### P OCGLUC #### [facility] [address] [place] [address] Dr. Nancy Montalvo MANUAL DIFF REQ NO Normal [facility] Comment on above: Performed By: #### P OCGLUC #### [facility] [address] [address] [address] Nancy Montalvo MCH (RBC) [Entitic mass] 32.0 pg Normal 26.7-34.0 [facility] Comment on above: Performed By: #### P OCGLUC #### [facility] [address] [place] [address] Dr. Nancy Montalvo MCHC (RBC) [Mass/Vol] 33.2 g/dL Normal 29.9-35.2 [facility] Comment on above: Performed By: #### P OCGLUC #### [facility] [address] [place] [address] Dr. Nancy Montalvo MCV (RBC) [Entitic vol] 96.2 fL Normal 81.0-99.0 [facility] Comment on above: Performed By: #### P OCGLUC #### [facility] [address] [place] [address] Dr. Nancy Montalvo MONO # 0.4 103/ul Normal 0.3-0.8 [facility] Comment on above: Performed By: #### P OCGLUC #### [facility] [address] [place] [address] Dr. Nancy Montalvo Monocytes/100 WBC (Bld) 2.1 % Normal 1.7-12.0 [facility] Comment on above: Performed By: #### P OCGLUC #### [facility] [address] [place] [address] Dr. Nancy Montalvo NEUT # 18.3 103/ul Critically high 1.4-6.5 [facility] Comment on above: Performed By: #### P OCGLUC #### [facility] [address] [place] [address] Dr. Nancy Montalvo Neutrophils/100 WBC (Bld) 89.2 % Critically high 43.0-75.0 [facility] Comment on above: Performed By: #### P OCGLUC #### [facility] [address] [place] [address] Dr. Nancy Montalvo Platelet mean volume (Bld) [Entitic vol] 12.9 fL Normal 9.5-13.5 [facility] Comment on above: Performed By: #### P OCGLUC #### [facility] [address] [place] [address] Dr. Nancy Montalvo PLT 120 103/ul Critically low 150-450 [facility] Comment on above: Performed By: #### P OCGLUC #### [facility] [address] [place] [address] Dr. Nancy Montalvo RBC 3.91 106/ul Critically low 4.20-5.40 [facility] Comment on above: Performed By: #### P OCGLUC #### [facility] [address] [place] [address] Dr. Nancy Montalvo WBC 20.5 103/ul Critically high 4.0-11.0 [facility] Comment on above: Performed By: #### P OCGLUC #### [facility] [address] [place] [address] HEAD WO CONon [...] HANNA BAILON Date: 2022-07-10 14:10 Normal [facility] CULTURE BLOODon 07-10-2022 Microscopic examination of blood, culture Culture Observations: NO GROWTH AT 5 DAYS. Normal [facility] Comment on above: Performed By: #### A 1C #### [facility] [address] [place] [address] Dr. Nancy Montalvo Microscopic examination of blood, culture Culture Observations: NO GROWTH AT 5 DAYS. Normal [facility] Comment on above: Performed By: #### B [id number] #### [facility] [address] [place] [address] [id number] [address] Nancy Montalvo Covid-19 PCR ([facility] HOME)on 06-18 SARS-CoV-2 (COVID-19) RNA MARLENE+probe Ql (Unsp spec) Not detected Normal NOT DETECTED [facility] Comment on above: Result Comment: This test is not yet approved or cleared by the [place] FDA. When there are no FDA-approved or cleared tests available, and other criteria are met, FDA can make tests available under an emergency access mechanism called an Emergency Use Authorization (EUA). The EUA for this test is supported by the [place] of Health and Human Service's (HHS's) declaration [...] SARS-CoV-2. Performed By: #### C VDTBH #### [facility] [address] [place] [address] Dr. Nancy Montalvo ER URINE PROFILEon 3 Bilirubin Ql (U) Negative Normal NEGATIVE [facility] Comment on above: Performed By: #### P OCGLUC #### [facility] [address] [place] [address] Dr. Nancy Montalvo Clarity (U) CLEAR Normal CLEAR [facility] Comment on above: Performed By: #### P OCGLUC #### [facility] [address] [place] [address] Dr. Nancy Montalvo Color (U) YELLOW Normal YELLOW [facility] Comment on above: Performed By: #### P OCGLUC #### [facility] [address] [place] [address] Dr. Nancy Montalvo ERUADELINAD A micrscopic examina tion will be performed if indicated. Normal [facility] Comment on above: Performed By: #### P OCGLUC #### [facility] [address] [place] [address] Dr. Nancy Montalvo Glucose Ql (U) >1000 Abnormal NEGATIVE [facility] Comment on above: Performed By: #### P OCGLUC #### [facility] [address] [address] [address] Nancy Montalvo Hemoglobin Ql (U) SMALL Abnormal NEGATIVE [facility] Comment on above: Performed By: #### P OCGLUC #### [facility] [address] [place] [address] Dr. Nancy Montalvo Ketones Ql (U) Negative Normal NEGATIVE [facility] Comment on above: Performed By: #### P OCGLUC #### [facility] [address] [address] [address] Nancy Montalvo LEUKOCYTES Negative Normal NEGATIVE [facility] Comment on above: Performed By: #### P OCGLUC #### [facility] [address] [place] [address] Dr. Nancy Montalvo Nitrite Ql (U) Negative Normal NEGATIVE [facility] Comment on above: Performed By: #### P OCGLUC #### [facility] [address] [place] [address] Dr. Nancy Montalvo pH (U) 5.5 [pH] Normal 5-9 [facility] Comment on above: Performed By: #### P OCGLUC #### [facility] [address] [place] [address] Dr. Nancy Montalvo Protein (U) [Mass/Vol] 30 mg/dL Abnormal NEGATIVE/ TRACE [facility] Comment on above: Performed By: #### P OCGLUC #### [facility] [address] [place] [address] Dr. Nancy Montalvo SPEC GRAVITY 1.015 Normal 1.005-<=1.0 25 [facility] Comment on above: Performed By: #### P OCGLUC #### [facility] [address] [place] [address] Dr. Nancy Montalvo UR MICRO IND INDICATED Normal [facility] Comment on above: Performed By: #### P OCGLUC #### [facility] [address] [place] [address] Dr. Nancy Montalvo Urobilinogen Qn (U) 0.2 {Grant'U}/dL Normal 0.2 - 1. 0 [facility] Comment on above: Performed By: #### P OCGLUC #### [facility] [address] [address] [address] Nancy Montalvo LACTATE/LACTIC ACIDon 2022 Lactate [Moles/Vol] 1.8 mmol/L Normal 0.4-2.0 [facility] Comment on above: Performed By: #### P OCGLUC #### [facility] [address] [address] [address] Nancy Montalvo Lactate [Moles/Vol] 1.7 mmol/L Normal 0.4-2.0 [facility] Comment on above: Performed By: #### P OCGLUC #### [facility] [address] [place] [address] Dr. Nancy Montalvo MYOGLOBINon 07-10-2022 OLMAN 123 ng/mL Critically high 9-82 [facility] Comment on above: Performed By: #### C MP #### [facility] [address] [place] [address] Dr. Nancy Montalvo POINT OF CARE GLUCOSEon 06-18 Glucose [Mass/Vol] 352 mg/dL Critically high 74-106 [facility] Comment on above: Performed By: #### B [id number] #### [facility] [address] [place] [address] Dr. Nancy Montalvo Glucose [Mass/Vol] 378 mg/dL Critically high 74-106 [facility] Comment on above: Performed By: #### P OCGLUC #### [facility] [address] [place] [address] Dr. Nancy Montalvo PROF CHEM 8 (BAS METB)on Anion gap [Moles/Vol] 12.1 mmol/L Normal [facility] Comment on above: Performed By: #### C MP #### [facility] [address] [place] [address] Dr. Nancy Montalvo Calcium [Mass/Vol] 8.3 mg/dL Critically low 8.5-10.1 [facility] Comment on above: Performed By: #### C MP #### [facility] [address] [address] [address] Nancy Montalvo Chloride [Moles/Vol] 101 mmol/L Normal 98-107 [facility] Comment on above: Performed By: #### C MP #### [facility] [address] [address] [address] Nancy Montalvo CO2 [Moles/Vol] 24.6 mmol/L Normal 21.0-32.0 [facility] Comment on above: Performed By: #### C MP #### [facility] [address] [address] [address] Nancy Montalvo Creatinine [Mass/Vol] 2.64 mg/dL Critically high 0.55-1.02 [facility] Comment on above: Performed By: #### C MP #### [facility] [address] [address] [address] Nancy Montalvo EGFR-AF MAURITANIAN 21 mL/min/1.73m2 Critically low >=60 [facility] Comment on above: Performed By: #### C MP #### [facility] [address] [address] [address] Nancy Montalvo EGFR-NON AF MAURITANIAN 17 mL/min/1.73m2 Critically low >=60 [facility] Comment on above: Performed By: #### C MP #### [facility] [address] [address] [address] Nancy Montalvo Glucose [Mass/Vol] 368 mg/dL Critically high 74-106 [facility] Comment on above: Performed By: #### C MP #### [facility] [address] [address] [address] Nancy Montalvo Potassium [Moles/Vol] 3.7 mmol/L Normal 3.5-5.1 [facility] Comment on above: Performed By: #### C MP #### [facility] [address] [address] [address] Nancy Montalvo Sodium [Moles/Vol] 134 mmol/L Critically low 136-145 [facility] Comment on above: Performed By: #### C MP #### [facility] [address] [place] [address] Dr. Nancy Montalvo Urea nitrogen [Mass/Vol] 33.0 mg/dL Critically high 7.0-18.0 [facility] Comment on above: Performed By: #### C MP #### [facility] [address] [place] [address] Dr. Nancy Montalvo Urea nitrogen/Creatinine [Mass ratio] 12.5 mg/mg Normal [facility] Comment on above: Performed By: #### C MP #### [facility] [address] [place] [address] Dr. Nancy Montalvo PROTIMEon 07-10-2022 INR Coag (PPP) [Relative time] 3.53 {INR} Normal [facility] Comment on above: Performed By: #### P OCGLUC #### [facility] [address] [place] [address] Dr. Nancy Montalvo INR GUIDELINES SEE BELOW Normal [facility] Comment on above: Result Comment: ADITYA RED INR: 2.0 - 3.0 CONDITIONS NOT LISTED BELOW 2.5 - 3.5 FOR PROSTHETIC HEART VALVE REPLACEMENT 2.5 - 3.5 RECURRENT THROMBOSIS Performed By: #### P OCGLUC #### [facility] [address] [place] [address] Dr. Nancy Montalvo PT Coag (PPP) [Time] 34.8 s Critically high 9.0-11.6 [facility] Comment on above: Performed By: #### P OCGLUC #### [facility] [address] [place] [address] Dr. Nancy Montalvo TROPONIN, HIGH SENSITIVITYon 07-10-2022 HSTROP 61.9 pg/mL Critically high 4.0-51.3 [facility] Comment on above: Result Comment: CUT- OFF POINTS HAVE BEEN ESTABLISHED BASED ON THE FOURTH UNIVERSAL DEFINITIONS OF MYOCARDIAL INFARCTION. THE UPPER REFERENCE LIMIT (URL) OF TROPONIN, DEFINED THE 99TH PERCENTILE OF cTnI DISTRIBUTION IN A REFERENCE POPULATION, HAS BEEN CONFIRMED THE DECISION THRESHOLD FOR UT DIAGNOSIS. Performed By: #### C MP #### [facility] [address] [place] [address] Dr. Nancy Montalvo URINE MICROSCOPIC ONLYon BACTERIA LARGE Abnormal NONE SEEN [facility] Comment on above: Performed By: #### P OCGLUC #### [facility] [address] [place] [address] Dr. Nancy Montalvo Bacteria identified Cx Nom (U) INDICATED Normal [facility] Comment on above: Performed By: #### P OCGLUC #### [facility] [address] [place] [address] Dr. Nancy Montalvo CAST SEEN Abnormal NONE SEEN [facility] Comment on above: Performed By: #### P OCGLUC #### [facility] [address] [place] [address] Dr. Nancy Montalvo Crystals LM Nom (Urine sed) NONE SEEN Normal NONE SEEN [facility] Comment on above: Performed By: #### P OCGLUC #### [facility] [address] [place] [address] Dr. Nancy Montalvo Epithelial cells LM Ql (Urine sed) FEW Abnormal NONE SEEN /RARE [facility] Comment on above: Performed By: #### P OCGLUC #### [facility] [address] [place] [address] Dr. Nanyc Montalvo FINE GRANULAR CAST RARE Normal [facility] Comment on above: Performed By: #### P OCGLUC #### [facility] [address] [place] [address] Dr. Nancy Montalvo HYALINE CAST RARE Normal [facility] Comment on above: Performed By: #### P OCGLUC #### [facility] [address] [place] [address] Dr. Nancy Montalvo MUCOUS NONE SEEN Normal NONE SEEN [facility] Comment on above: Performed By: #### P OCGLUC #### [facility] [address] [address] [address] Nancy Montalvo RBC 10-20 Abnormal 0-2 [facility] Comment on above: Performed By: #### P OCGLUC #### [facility] [address] [place] [address] Dr. Nancy Montalvo WBC 10-20 Abnormal NONE SEEN [facility] Comment on above: Performed By: #### P OCGLUC #### [facility] [address] [address] [address] Nancy Montalvo XR CHEST 1 Von [...] by: HANNA BAILON Date: 2022-07-10 14:14 Normal [facility] Office Visiton 05-16-2022 Follow-up visit [id number] Carrie Lewis 1935 F Date Provider Department Center 05/16/2022 ROB ARAMBULA [facility] No family history on file Level of Service:15564 [place] OFFICE/OUTPATIENT ESTABLISHED MOD MDM 30-39 MIN Reason for Visit and Comments: Follow-up [144166] Normal [facility] CULTURE URINEon 04-27-2022 CULTURE URINE Isolate 1 [...] F Trimethoprim/Sulfamethoxazo le <=20 S F Normal [facility] Comment on above: Performed By: #### A 1C #### [facility] [address] [place] [address] Dr. Nancy Montalvo INSULINon 04-26-2022 Insulin 42.6 uIU/mL Critically high 2.6-24.9 [facility] Comment on above: Performed By: #### A 1C #### [facility] [address] [place] [address] Dr. Nancy Montalvo CBC AUTO DIFFon 04-25-2022 BASO # 0.1 103/ul Normal 0.0-0.1 [facility] Comment on above: Performed By: #### A 1C #### [facility] [address] [place] [address] Dr. Nancy Montalvo Basophils/100 WBC (Bld) 0.5 % Normal 0.2-2.0 [facility] Comment on above: Performed By: #### A 1C #### [facility] [address] [place] [address] Dr. Nancy Montalvo EO # 0.4 103/ul Normal 0.0-0.7 [facility] Comment on above: Performed By: #### A 1C #### [facility] [address] [place] [address] Dr. Nancy Montavlo Eosinophils/100 WBC (Bld) 3.1 % Normal 0.9-7.0 [facility] Comment on above: Performed By: #### A 1C #### [facility] [address] [place] [address] Dr. Nancy Montalvo Erythrocyte distribution width (RBC) [Ratio] 14.6 % Normal 11.0-15.0 [facility] Comment on above: Performed By: #### A 1C #### [facility] [address] [address] [address] Nancy Montalvo Hematocrit (Bld) [Volume fraction] 39.3 % Normal 36.0-48.0 [facility] Comment on above: Performed By: #### A 1C #### [facility] [address] [address] [address] Nancy Montalvo Hemoglobin (Bld) [Mass/Vol] 11.9 g/dL Critically low 12.0-16.0 [facility] Comment on above: Performed By: #### A 1C #### [facility] [address] [address] [address] Nancy Montalvo IG # 0.03 10e3/ul Normal 0.00-0.03 [facility] Comment on above: Performed By: #### A 1C #### [facility] [address] [address] [address] Nancy Montalvo IG % 0.2 % Normal 0.0-0.5 [facility] Comment on above: Performed By: #### A 1C #### [facility] [address] [address] [address] Nancy Montalvo LYMPH # 3.6 103/ul Normal 1.2-3.8 [facility] Comment on above: Performed By: #### A 1C #### [facility] [address] [address] [address] Nancy Montalvo Lymphocytes/100 WBC (Bld) 29.7 % Normal 20.5-60.0 [facility] Comment on above: Performed By: #### A 1C #### [facility] [address] [address] [address] Nancy Montalvo MANUAL DIFF REQ NO Normal [facility] Comment on above: Performed By: #### A 1C #### [facility] [address] [place] [address] Dr. Nancy Montalvo MCH (RBC) [Entitic mass] 31.9 pg Normal 26.7-34.0 [facility] Comment on above: Performed By: #### A 1C #### [facility] [address] [address] [address] Nancy Montalvo MCHC (RBC) [Mass/Vol] 30.3 g/dL Normal 29.9-35.2 [facility] Comment on above: Performed By: #### A 1C #### [facility] [address] [address] [address] Nancy Montalvo MCV (RBC) [Entitic vol] 105.4 fL Critically high 81.0-99.0 [facility] Comment on above: Performed By: #### A 1C #### [facility] [address] [address] [address] Nancy Montalvo MONO # 0.8 103/ul Normal 0.3-0.8 [facility] Comment on above: Performed By: #### A 1C #### [facility] [address] [place] [address] Dr. Nancy Montalvo Monocytes/100 WBC (Bld) 7.0 % Normal 1.7-12.0 [facility] Comment on above: Performed By: #### A 1C #### [facility] [address] [address] [address] Nancy Montalvo NEUT # 7.2 103/ul Critically high 1.4-6.5 [facility] Comment on above: Performed By: #### A 1C #### [facility] [address] [address] [address] Nancy Montalvo Neutrophils/100 WBC (Bld) 59.5 % Normal 43.0-75.0 [facility] Comment on above: Performed By: #### A 1C #### [facility] [address] [address] [address] Nancy Montalvo Platelet mean volume (Bld) [Entitic vol] 11.5 fL Normal 9.5-13.5 [facility] Comment on above: Performed By: #### A 1C #### [facility] [address] [address] [address] Nancy Montalvo PLT 241 103/ul Normal 150-450 [facility] Comment on above: Performed By: #### A 1C #### [facility] [address] [address] [address] Nancy Montalvo RBC 3.73 106/ul Critically low 4.20-5.40 [facility] Comment on above: Performed By: #### A 1C #### [facility] [address] [address] [address] Nancy Montalvo WBC 12.0 103/ul Critically high 4.0-11.0 [facility] Comment on above: Performed By: #### A 1C #### [facility] [address] [address] [address] Nancy Montalvo FREE THYROXINE INDEX T7on FTI 2.01 Normal 1.30-4.50 [facility] Comment on above: Performed By: #### B LDCX1 #### [facility] [address] [place] [address] Dr. Nancy Montalvo T3U 33.0 % Normal 30.0-39.0 [facility] Comment on above: Performed By: #### B LDCX1 #### [facility] [address] [place] [address] Dr. Nancy Montalvo T4 [Mass/Vol] 6.10 ug/dL Normal 4.80-13.90 [facility] Comment on above: Performed By: #### B LDCX1 #### [facility] [address] [place] [address] Dr. Nancy Montalvo GLYCOHEMOGLOBIN A1Con 2022 ADA RECOMMENDATION SEE BELOW Normal [facility] Comment on above: Result Comment: ADA RECOMMENDED LIMIT 4.0 - 6.0 ADA THERAPEUTIC TARGET < 7.0 ACTION SUGGESTED > 7.0 Performed By: #### U AMIC #### [facility] [address] [address] [address] Nancy Montalvo Glucose [Mass/Vol] 134 mg/dL Normal [facility] Comment on above: Performed By: #### U AMIC #### [facility] [address] [place] [address] Dr. Nancy Montalvo HbA1c (Bld) [Mass fraction] 6.3 % Critically high 4.5-6.2 [facility] Comment on above: Performed By: #### U AMIC #### [facility] [address] [address] [address] Nancy Montalvo IRONon 04-25-2022 Iron [Mass/Vol] 98.0 ug/dL Normal 50.0-170.0 [facility] Comment on above: Performed By: #### C MP #### [facility] [address] [address] [address] Nancy Montalvo LIPID PROFILEon 04-25-2022 CHOL-HDL RATIO NORM SEE BELOW Normal [facility] Comment on above: Result Comment: 3.3 - 4.4 LOW RISK 4.4 - 7.1 AVERAGE RISK 7.1 - 11.0 MODERATE RISK >11.0 HIGH RISK Performed By: #### B LDCX1 #### [facility] [address] [place] [address] Dr. Nancy Montalvo Cholesterol [Mass/Vol] 156 mg/dL Normal <=200 [facility] Comment on above: Performed By: #### B LDCX1 #### [facility] [address] [place] [address] Dr. Nancy Montalvo Cholesterol in HDL [Mass/Vol] 55 mg/dL Normal 40-60 [facility] Comment on above: Performed By: #### B LDCX1 #### [facility] [address] [place] [address] Dr. Nancy Montalvo Cholesterol in LDL [Mass/Vol] 74.4 mg/dL Normal [facility] Comment on above: Performed By: #### B LDCX1 #### [facility] [address] [place] [address] Dr. Nancy Montalvo Cholesterol.total/C holesterol in HDL [Mass ratio] 2.8 {ratio} Normal [facility] Comment on above: Performed By: #### B LDCX1 #### [facility] [address] [place] [address] Dr. Nancy Montalvo HDL NORMAL > or = 60 mg/dl - LO W CARDIOVASCULAR RISK <40 mg/dl - HIGH CARDIOVASCULAR RISK Normal [facility] Comment on above: Performed By: #### B LDCX1 #### [facility] [address] [place] [address] Dr. Nancy Montalvo LDL CALC NORMAL SEE BELOW Normal [facility] Comment on above: Result Comment: <100 mg/dl OPTIMAL 100 - 129 mg/dl NEAR OR ABOVE OPTIMAL 130 - 159 mg/dl BORDERLINE HIGH 160 - 189 mg/dl HIGH >190 mg/dl VERY HIGH Performed By: #### B LDCX1 #### [facility] [address] [place] [address] Dr. Nancy Montalvo Triglyceride [Mass/Vol] 133 mg/dL Normal <=150 [facility] Comment on above: Performed By: #### B LDCX1 #### [facility] [address] [place] [address] Dr. Nancy Montalvo VLDL CALC 26.6 mg/dL Normal [facility] Comment on above: Performed By: #### B LDCX1 #### [facility] [address] [place] [address] Dr. Nancy Montalvo PROF 14(COMP METB)on 023 Albumin [Mass/Vol] 3.5 g/dL Normal 3.4-5.0 [facility] Comment on above: Performed By: #### B LDCX1 #### [facility] [address] [place] [address] Dr. Nancy Montalvo Albumin/Globulin [Mass ratio] 0.9 {ratio} Normal [facility] Comment on above: Performed By: #### B LDCX1 #### [facility] [address] [place] [address] Dr. Nancy Montalvo ALP [Catalytic activity/Vol] 96 U/L Normal 46-116 [facility] Comment on above: Performed By: #### B LDCX1 #### [facility] [address] [place] [address] Dr. Nancy Montalvo ALT [Catalytic activity/Vol] 58 U/L Normal 14-59 [facility] Comment on above: Performed By: #### B LDCX1 #### [facility] [address] [place] [address] Dr. Nancy Montalvo Anion gap [Moles/Vol] 15.4 mmol/L Normal [facility] Comment on above: Performed By: #### B LDCX1 #### [facility] [address] [address] [address] Nancy Montalvo AST [Catalytic activity/Vol] 40 U/L Critically high 15-37 [facility] Comment on above: Performed By: #### B LDCX1 #### [facility] [address] [address] [address] Nancy Montalvo Bilirubin [Mass/Vol] 0.3 mg/dL Normal 0.2-1.0 [facility] Comment on above: Performed By: #### B LDCX1 #### [facility] [address] [place] [address] Dr. Nancy Montalvo Calcium [Mass/Vol] 9.0 mg/dL Normal 8.5-10.1 [facility] Comment on above: Performed By: #### B LDCX1 #### [facility] [address] [place] [address] Dr. Nancy Montalvo Chloride [Moles/Vol] 107 mmol/L Normal 98-107 [facility] Comment on above: Performed By: #### B LDCX1 #### [facility] [address] [place] [address] Dr. Nancy Montalvo CO2 [Moles/Vol] 23.4 mmol/L Normal 21.0-32.0 [facility] Comment on above: Performed By: #### B LDCX1 #### [facility] [address] [place] [address] Dr. Nancy Montalvo Creatinine [Mass/Vol] 2.70 mg/dL Critically high 0.55-1.02 [facility] Comment on above: Performed By: #### B [id number] #### [facility] [address] [place] [address] Dr. Nancy Montalvo EGFR-AF MAURITANIAN 20 mL/min/1.73m2 Critically low >=60 [facility] Comment on above: Performed By: #### B LDCX1 #### [facility] [address] [place] [address] Dr. Nancy Montalvo EGFR-NON AF MAURITANIAN 17 mL/min/1.73m2 Critically low >=60 [facility] Comment on above: Performed By: #### B LDCX1 #### [facility] [address] [place] [address] Dr. Nancy Montalvo Globulin (S) [Mass/Vol] 3.9 g/dL Normal [facility] Comment on above: Performed By: #### B LDCX1 #### [facility] [address] [address] [address] Nancy Montalvo Glucose [Mass/Vol] 154 mg/dL Critically high 74-106 [facility] Comment on above: Performed By: #### B LDCX1 #### [facility] [address] [place] [address] Dr. Nancy Montalvo Potassium [Moles/Vol] 3.8 mmol/L Normal 3.5-5.1 [facility] Comment on above: Performed By: #### B LDCX1 #### [facility] [address] [place] [address] Dr. Nancy Montalvo Protein [Mass/Vol] 7.4 g/dL Normal 6.4-8.2 [facility] Comment on above: Performed By: #### B LDCX1 #### [facility] [address] [place] [address] Dr. Nancy Montalvo Sodium [Moles/Vol] 142 mmol/L Normal 136-145 [facility] Comment on above: Performed By: #### B LDCX1 #### [facility] [address] [place] [address] Dr. Nancy Montalvo Urea nitrogen [Mass/Vol] 46.0 mg/dL Critically high 7.0-18.0 [facility] Comment on above: Performed By: #### B [id number] #### [facility] [address] [place] [address] Dr. Nancy Montalvo Urea nitrogen/Creatinine [Mass ratio] 17.0 mg/mg Normal [facility] Comment on above: Performed By: #### B LDCX1 #### [facility] [address] [place] [address] Dr. Nancy Montalvo TSHon 04-25-2022 TSH 2.035 uIU/mL Normal 0.358-3.740 [facility] Comment on above: Performed By: #### B [id number] #### [facility] [address] [place] [address] Dr. Nancy Montalvo UA RANDOM W/MICROSCOPICon BACTERIA MODERATE Abnormal NONE SEEN [facility] Comment on above: Performed By: #### U AMIC #### [facility] [address] [place] [address] Dr. Nancy Montalvo Bilirubin Ql (U) Negative Normal NEGATIVE [facility] Comment on above: Performed By: #### U AMIC #### [facility] [address] [place] [address] Dr. Nancy Montalvo CAST NONE SEEN Normal NONE SEEN [facility] Comment on above: Performed By: #### U AMIC #### [facility] [address] [place] [address] Dr. Nancy Montalvo Clarity (U) CLEAR Normal CLEAR [facility] Comment on above: Performed By: #### U AMIC #### [facility] [address] [place] [address] Dr. Nancy Montalvo Color (U) LT. YELLOW Normal YELLOW [facility] Comment on above: Performed By: #### U AMIC #### [facility] [address] [place] [address] Dr. Nancy Montalvo Crystals LM Nom (Urine sed) NONE SEEN Normal NONE SEEN [facility] Comment on above: Performed By: #### U AMIC #### [facility] [address] [place] [address] Dr. Nancy Montalvo Epithelial cells LM Ql (Urine sed) FEW Abnormal NONE SEEN /RARE [facility] Comment on above: Performed By: #### U AMIC #### [facility] [address] [place] [address] Dr. Nancy Montalvo Glucose Ql (U) Negative Normal NEGATIVE [facility] Comment on above: Performed By: #### U AMIC #### [facility] [address] [place] [address] Dr. Nancy Montalvo Hemoglobin Ql (U) Negative Normal NEGATIVE [facility] Comment on above: Performed By: #### U AMIC #### [facility] [address] [place] [address] Dr. Nancy Montalvo Ketones Ql (U) Negative Normal NEGATIVE [facility] Comment on above: Performed By: #### U AMIC #### [facility] [address] [place] [address] Dr. Nancy Montalvo LEUKOCYTES MODERATE Abnormal NEGATIVE [facility] Comment on above: Performed By: #### U AMIC #### [facility] [address] [place] [address] Dr. Nancy Montalvo MUCOUS NONE SEEN Normal NONE SEEN [facility] Comment on above: Performed By: #### U AMIC #### [facility] [address] [place] [address] Dr. Nancy Montalvo Nitrite Ql (U) Positive Abnormal NEGATIVE [facility] Comment on above: Performed By: #### U AMIC #### [facility] [address] [place] [address] Dr. Nancy Montalvo pH (U) 5.5 [pH] Normal 5-9 [facility] Comment on above: Performed By: #### U AMIC #### [facility] [address] [place] [address] Dr. Nancy Montalvo RBC 0-2 Normal 0-2 [facility] Comment on above: Performed By: #### U AMIC #### [facility] [address] [place] [address] Dr. Nancy Montalvo SPEC GRAVITY 1.015 Normal 1.005-<=1.0 25 [facility] Comment on above: Performed By: #### U AMIC #### [facility] [address] [place] [address] Dr. Nancy Montalvo UA PROTEIN Negative Normal NEGATIVE/ TRACE [facility] Comment on above: Performed By: #### U AMIC #### [facility] [address] [place] [address] Dr. Nancy Montalvo Urobilinogen Qn (U) 0.2 {Grant'U}/dL Normal 0.2 - 1. 0 [facility] Comment on above: Performed By: #### U AMIC #### [facility] [address], [place] [address] Dr. Nancy Montalvo WBC 10-20 Abnormal NONE SEEN [facility] Comment on above: Performed By: #### U AMIC #### [facility] [address], [place] [address] Dr. Nancy Montalvo ECHOCARDIO M/2D COMPLETEon 0 03-29-2022 ECHOCARDIO M/2D COMPLETE Patient: GEMMA LEWIS Exam Date: 03/29/2022 : 1935 Gender:F Ordering : BERNICE DELEON Admission #: [id number] Family : DR COLETTE MÉNDEZ . Order #: [id number] CLICK HERE TO VIEW EXAM ECHOCARDIOGRAM REPORT [...] Ma M.D. on 03/31/2022 at 12:16 Normal [facility] Refillon 03-27-2022 Refill [id number] Carrie Lewis rraine E 1935 F Date Provider Department Center 03/27/2022 ROB ARAMBULA [facility] [place] Count No family history on file Reason for Visit and Comments: Med Refill [[id number]] Normal [facility] Orders Onlyon 03-23-2022 Orders Only [id number] Carrie Lewis rraine E 1935 F Date Provider Department Center 03/23/2022 LETITIA BOURNE [facility] No family history on file Normal [facility] Office Visiton 03-15-2022 Follow-up visit [id number] Carrie Lewis rraine E 1935 Date Provider Department [place] 03/15/2022 BERNICE MERCHANT [facility] No family history on file Level of Service:[address] [place] OFFICE/OUTPATIENT ESTABLISHED MOD MDM 30-39 MIN Normal [facility] GLYCOHEMOGLOBIN A1Con 2021 ADA RECOMMENDATION SEE BELOW Normal [facility] Comment on above: Result Comment: ADA RECOMMENDED LIMIT 4.0 - 6.0 ADA THERAPEUTIC TARGET < 7.0 ACTION SUGGESTED > 7.0 Performed By: #### A 1C #### [facility] [address] [address] [address] Nancy Montalvo Glucose [Mass/Vol] 97 mg/dL Normal [facility] Comment on above: Performed By: #### A 1C #### [facility] [address] [address] [address] Nancy Montalvo HbA1c (Bld) [Mass fraction] 5.0 % Normal 4.5-6.2 [facility] Comment on above: Performed By: #### A 1C #### [facility] [address] [address] [address] Nancy Montalvo PROTIMEon 10-24-2021 INR Coag (PPP) [Relative time] 2.17 {INR} Normal [facility] Comment on above: Performed By: #### A 1C #### [facility] [address] [place] [address] Dr. Nancy Montalvo INR GUIDELINES SEE BELOW Normal [facility] Comment on above: Result Comment: ADITYA RED INR: 2.0 - 3.0 CONDITIONS NOT LISTED BELOW 2.5 - 3.5 FOR PROSTHETIC HEART VALVE REPLACEMENT 2.5 - 3.5 RECURRENT THROMBOSIS Performed By: #### A 1C #### [facility] [address] [place] [address] Dr. Nancy Montalvo PT Coag (PPP) [Time] 22.3 s Critically high 9.0-11.6 [facility] Comment on above: Performed By: #### A 1C #### [facility] [address] [place] [address] Dr. Nancy Montalvo PTTon 10-24-2021 aPTT Coag (Bld) [Time] 35.0 s Normal 22.3-36.2 [facility] Comment on above: Performed By: #### A 1C #### [facility] [address] [place] [address] Dr. Nancy Montalvo BNPon 09-16-2021 Natriuretic peptide B (Bld) [Mass/Vol] 1955.0 pg/mL Critically high <=1,800.0 [facility] Comment on above: Performed By: #### P OCGLUC #### [facility] [address] [place] [address] Dr. Nancy Montalvo CBC AUTO DIFFon 09-16-2021 BASO # 0.0 103/ul Normal 0.0-0.1 [facility] Comment on above: Performed By: #### P OCGLUC #### [facility] [address] [place] [address] Dr. Nancy Montalvo Basophils/100 WBC (Bld) 0.4 % Normal 0.2-2.0 [facility] Comment on above: Performed By: #### P OCGLUC #### [facility] [address] [place] [address] Dr. Nancy Montalvo EO # 0.2 103/ul Normal 0.0-0.7 [facility] Comment on above: Performed By: #### P OCGLUC #### [facility] [address] [place] [address] Dr. Nancy Montalvo Eosinophils/100 WBC (Bld) 3.0 % Normal 0.9-7.0 [facility] Comment on above: Performed By: #### P OCGLUC #### [facility] [address] [place] [address] Dr. Nancy Montalvo Erythrocyte distribution width (RBC) [Ratio] 13.0 % Normal 11.0-15.0 [facility] Comment on above: Performed By: #### P OCGLUC #### [facility] [address] [place] [address] Dr. Nancy Montalvo Hematocrit (Bld) [Volume fraction] 29.3 % Critically low 36.0-48.0 [facility] Comment on above: Performed By: #### P OCGLUC #### [facility] [address] [place] [address] Dr. Nancy Montalvo Hemoglobin (Bld) [Mass/Vol] 9.2 g/dL Critically low 12.0-16.0 [facility] Comment on above: Performed By: #### P OCGLUC #### [facility] [address] [place] [address] Dr. Nancy Montalvo IG # 0.02 10e3/ul Normal 0.00-0.03 [facility] Comment on above: Performed By: #### P OCGLUC #### [facility] [address] [place] [address] Dr. Nancy Montalvo IG % 0.2 % Normal 0.0-0.5 [facility] Comment on above: Performed By: #### P OCGLUC #### [facility] [address] [place] [address] Dr. Nancy Montalvo LYMPH # 3.1 103/ul Normal 1.2-3.8 [facility] Comment on above: Performed By: #### P OCGLUC #### [facility] [address] [place] [address] Dr. Nancy Montalvo Lymphocytes/100 WBC (Bld) 37.7 % Normal 20.5-60.0 [facility] Comment on above: Performed By: #### P OCGLUC #### [facility] [address] [place] [address] Dr. Nancy Montalvo MANUAL DIFF REQ NO Normal [facility] Comment on above: Performed By: #### P OCGLUC #### [facility] [address] [place] [address] Dr. Nancy Montalvo MCH (RBC) [Entitic mass] 32.4 pg Normal 26.7-34.0 [facility] Comment on above: Performed By: #### P OCGLUC #### [facility] [address] [place] [address] Dr. Nancy Montalvo MCHC (RBC) [Mass/Vol] 31.4 g/dL Normal 29.9-35.2 [facility] Comment on above: Performed By: #### P OCGLUC #### [facility] [address] [place] [address] Dr. Nancy Montalvo MCV (RBC) [Entitic vol] 103.2 fL Critically high 81.0-99.0 [facility] Comment on above: Performed By: #### P OCGLUC #### [facility] [address] [place] [address] Dr. Nancy Montalvo MONO # 0.8 103/ul Normal 0.3-0.8 [facility] Comment on above: Performed By: #### P OCGLUC #### [facility] [address] [place] [address] Dr. Nancy Montalvo Monocytes/100 WBC (Bld) 9.3 % Normal 1.7-12.0 [facility] Comment on above: Performed By: #### P OCGLUC #### [facility] [address] [place] [address] Dr. Nancy Montalvo NEUT # 4.0 103/ul Normal 1.4-6.5 [facility] Comment on above: Performed By: #### P OCGLUC #### [facility] [address] [place] [address] Dr. Nancy Montalvo Neutrophils/100 WBC (Bld) 49.4 % Normal 43.0-75.0 [facility] Comment on above: Performed By: #### P OCGLUC #### [facility] [address] [place] [address] Dr. Nancy Montalvo Platelet mean volume (Bld) [Entitic vol] 12.5 fL Normal 9.5-13.5 [facility] Comment on above: Performed By: #### P OCGLUC #### [facility] [address] [place] [address] Dr. Nancy Montalvo PLT 137 103/ul Critically low 150-450 [facility] [place] Comment on above: Performed By: #### P OCGLUC #### [facility] [address] [place] [address] Dr. Nancy Montalvo RBC 2.84 106/ul Critically low 4.20-5.40 [facility] Comment on above: Performed By: #### P OCGLUC #### [facility] [address] [place] [address] Dr. Nancy Montalvo WBC 8.1 103/ul Normal 4.0-11.0 [facility] Comment on above: Performed By: #### P OCGLUC #### [facility] [address] [place] [address] Dr. Nancy Montalvo PROF 14(COMP METB)on 022 Albumin [Mass/Vol] 2.5 g/dL Critically low 3.4-5.0 [facility] Comment on above: Performed By: #### A 1C #### [facility] [address] [place] [address] Dr. Nancy Montalvo Albumin/Globulin [Mass ratio] 0.8 {ratio} Normal [facility] Comment on above: Performed By: #### A 1C #### [facility] [address] [place] [address] Dr. Nancy Montalvo ALP [Catalytic activity/Vol] 52 U/L Normal 46-116 [facility] Comment on above: Performed By: #### A 1C #### [facility] [address] [place] [address] Dr. Nancy Montalvo ALT [Catalytic activity/Vol] 39 U/L Normal 14-59 [facility] Comment on above: Performed By: #### A 1C #### [facility] [address] [place] [address] Dr. Nancy Montalvo Anion gap [Moles/Vol] 10.7 mmol/L Normal [facility] Comment on above: Performed By: #### A 1C #### [facility] [address] [address] [address] Nancy Montalvo AST [Catalytic activity/Vol] 36 U/L Normal 15-37 [facility] Comment on above: Performed By: #### A 1C #### [facility] [address] [address] [address] Nancy Montalvo Bilirubin [Mass/Vol] 0.4 mg/dL Normal 0.2-1.0 [facility] Comment on above: Performed By: #### A 1C #### [facility] [address] [address] [address] Nancy Montalvo Calcium [Mass/Vol] 8.7 mg/dL Normal 8.5-10.1 [facility] Comment on above: Performed By: #### A 1C #### [facility] [address] [place] [address] Dr. Nancy Montalvo Chloride [Moles/Vol] 105 mmol/L Normal 98-107 [facility] Comment on above: Performed By: #### A 1C #### [facility] [address] [address] [address] Nancy Montalvo CO2 [Moles/Vol] 26.6 mmol/L Normal 21.0-32.0 [facility] Comment on above: Performed By: #### A 1C #### [facility] [address] [address] [address] Nancy Montalvo Creatinine [Mass/Vol] 2.29 mg/dL Critically high 0.55-1.02 [facility] Comment on above: Performed By: #### A 1C #### [facility] [address] [address] [address] Nancy Montalvo EGFR-AF MAURITANIAN 24 mL/min/1.73m2 Critically low >=60 [facility] Comment on above: Performed By: #### A 1C #### [facility] [address] [address] [address] Nancy Montalvo EGFR-NON AF MAURITANIAN 20 mL/min/1.73m2 Critically low >=60 [facility] Comment on above: Performed By: #### A 1C #### [facility] [address] [address] [address] Nancy Montalvo Globulin (S) [Mass/Vol] 3.2 g/dL Normal [facility] Comment on above: Performed By: #### A 1C #### [facility] [address] [address] [address] Nancy Montalvo Glucose [Mass/Vol] 88 mg/dL Normal 74-106 [facility] Comment on above: Performed By: #### A 1C #### [facility] [address] [address] [address] Nancy Montalvo Potassium [Moles/Vol] 4.3 mmol/L Normal 3.5-5.1 [facility] Comment on above: Performed By: #### A 1C #### [facility] [address] [address] [address] Nancy Montalvo Protein [Mass/Vol] 5.7 g/dL Critically low 6.4-8.2 [facility] e [facility] Comment on above: Performed By: #### A 1C #### [facility] [address] [address] [address] Nancy Montalvo Sodium [Moles/Vol] 138 mmol/L Normal 136-145 [facility] Comment on above: Performed By: #### A 1C #### [facility] [address] [address] [address] Nancy Montalvo Urea nitrogen [Mass/Vol] 58.0 mg/dL Critically high 7.0-18.0 [facility] Comment on above: Performed By: #### A 1C #### [facility] [address] [address] [address] Nancy Montalvo Urea nitrogen/Creatinine [Mass ratio] 25.3 mg/mg Normal [facility] Comment on above: Performed By: #### A 1C #### [facility] [address] [place] [address] Dr. Nacny Montalvo PROTIMEon 09-16-2021 INR Coag (PPP) [Relative time] 2.73 {INR} Normal [facility] Comment on above: Performed By: #### P T #### [facility] [address] [place] [address] Dr. Nancy Montalvo INR GUIDELINES SEE BELOW Normal [facility] Comment on above: Result Comment: ADITYA RED INR: 2.0 - 3.0 CONDITIONS NOT LISTED BELOW 2.5 - 3.5 FOR PROSTHETIC HEART VALVE REPLACEMENT 2.5 - 3.5 RECURRENT THROMBOSIS Performed By: #### P T #### [facility] [address] [place] [address] Dr. Nancy Montalvo PT Coag (PPP) [Time] 27.6 s Critically high 9.0-11.6 [facility] Comment on above: Performed By: #### P T #### [facility] [address] [place] [address] Dr. Nancy Montalvo BNPon 09-15-2021 Natriuretic peptide B (Bld) [Mass/Vol] 1425.0 pg/mL Normal <=1,800.0 [facility] Comment on above: Performed By: #### U AMIC #### [facility] [address] [place] [address] Dr. Nancy Montalvo CBC AUTO DIFFon 09-15-2021 BASO # 0.0 103/ul Normal 0.0-0.1 [facility] Comment on above: Performed By: #### C MP #### [facility] [address] [place] [address] Dr. Nancy Montalvo Basophils/100 WBC (Bld) 0.4 % Normal 0.2-2.0 [facility] Comment on above: Performed By: #### C MP #### [facility] [address] [place] [address] Dr. Nancy Montalvo EO # 0.2 103/ul Normal 0.0-0.7 [facility] Comment on above: Performed By: #### C MP #### [facility] [address] [place] [address] Dr. Nancy Montalvo Eosinophils/100 WBC (Bld) 3.1 % Normal 0.9-7.0 [facility] Comment on above: Performed By: #### C MP #### [facility] [address] [place] [address] Dr. Nancy Montalvo Erythrocyte distribution width (RBC) [Ratio] 13.2 % Normal 11.0-15.0 [facility] Comment on above: Performed By: #### C MP #### [facility] [address] [place] [address] Dr. Nancy Montalvo Hematocrit (Bld) [Volume fraction] 30.1 % Critically low 36.0-48.0 [facility] Comment on above: Performed By: #### C MP #### [facility] [address] [place] [address] Dr. Nancy Montalvo Hemoglobin (Bld) [Mass/Vol] 9.3 g/dL Critically low 12.0-16.0 [facility] Comment on above: Performed By: #### C MP #### [facility] [address] [place] [address] Dr. Nancy Montalvo IG # 0.02 10e3/ul Normal 0.00-0.03 [facility] Comment on above: Performed By: #### C MP #### [facility] [address] [place] [address] Dr. Nancy Montalvo IG % 0.3 % Normal 0.0-0.5 [facility] Comment on above: Performed By: #### C MP #### [facility] [address] [place] [address] Dr. Nancy Montalvo LYMPH # 2.8 103/ul Normal 1.2-3.8 [facility] Comment on above: Performed By: #### C MP #### [facility] [address] [place] [address] Dr. Nancy Montalvo Lymphocytes/100 WBC (Bld) 35.8 % Normal 20.5-60.0 [facility] Comment on above: Performed By: #### C MP #### [facility] [address] [place] [address] Dr. Nancy Montalvo MANUAL DIFF REQ NO Normal [facility] Comment on above: Performed By: #### C MP #### [facility] [address] [place] [address] Dr. Nancy Montalvo MCH (RBC) [Entitic mass] 32.3 pg Normal 26.7-34.0 [facility] Comment on above: Performed By: #### C MP #### [facility] [address] [place] [address] Dr. Nancy Montalvo MCHC (RBC) [Mass/Vol] 30.9 g/dL Normal 29.9-35.2 [facility] Comment on above: Performed By: #### C MP #### [facility] [address] [place] [address] Dr. aNncy Montalvo MCV (RBC) [Entitic vol] 104.5 fL Critically high 81.0-99.0 [facility] Comment on above: Performed By: #### C MP #### [facility] [address] [place] [address] Dr. Nancy Montalvo MONO # 0.7 103/ul Normal 0.3-0.8 [facility] Comment on above: Performed By: #### C MP #### [facility] [address] [place] [address] Dr. Nancy Montalvo Monocytes/100 WBC (Bld) 9.4 % Normal 1.7-12.0 [facility] Comment on above: Performed By: #### C MP #### [facility] [address] [place] [address] Dr. Nancy Montalvo NEUT # 4.0 103/ul Normal 1.4-6.5 [facility] Comment on above: Performed By: #### C MP #### [facility] [address] [place] [address] Dr. Nancy Montalvo Neutrophils/100 WBC (Bld) 51.0 % Normal 43.0-75.0 [facility] Comment on above: Performed By: #### C MP #### [facility] [address] [address] [address] Nancy Montalvo Platelet mean volume (Bld) [Entitic vol] 12.6 fL Normal 9.5-13.5 [facility] Comment on above: Performed By: #### C MP #### [facility] [address] [address] [address] Nancy Montalvo PLT 132 103/ul Critically low 150-450 [facility] [place] Comment on above: Performed By: #### C MP #### [facility] [address] [address] [address] Nancy Montalvo RBC 2.88 106/ul Critically low 4.20-5.40 [facility] Comment on above: Performed By: #### C MP #### [facility] [address] [place] [address] Dr. Nancy Montalvo WBC 7.9 103/ul Normal 4.0-11.0 [facility] Comment on above: Performed By: #### C MP #### [facility] [address] [place] [address] Dr. Nancy Montalvo PROF 14(COMP METB)on 022 Albumin [Mass/Vol] 2.5 g/dL Critically low 3.4-5.0 [facility] Comment on above: Performed By: #### U AMIC #### [facility] [address] [place] [address] Dr. Nancy Montalvo Albumin/Globulin [Mass ratio] 0.8 {ratio} Normal [facility] Comment on above: Performed By: #### U AMIC #### [facility] [address] [place] [address] Dr. Nancy Montalvo ALP [Catalytic activity/Vol] 54 U/L Normal 46-116 [facility] Comment on above: Performed By: #### U AMIC #### [facility] [address] [place] [address] Dr. Nancy Montalvo ALT [Catalytic activity/Vol] 39 U/L Normal 14-59 [facility] Comment on above: Performed By: #### U AMIC #### [facility] [address] [address] [address] Nancy Montalvo Anion gap [Moles/Vol] 13.5 mmol/L Normal [facility] Comment on above: Performed By: #### U AMIC #### [facility] [address] [address] [address] Nancy Montalvo AST [Catalytic activity/Vol] 33 U/L Normal 15-37 [facility] Comment on above: Performed By: #### U AMIC #### [facility] [address] [address] [address] Nancy Montalvo Bilirubin [Mass/Vol] 0.2 mg/dL Normal 0.2-1.0 [facility] Comment on above: Performed By: #### U AMIC #### [facility] [address] [address] [address] Nancy Montalvo Calcium [Mass/Vol] 8.5 mg/dL Normal 8.5-10.1 [facility] Comment on above: Performed By: #### U AMIC #### [facility] [address] [address] [address] Nancy Montalvo Chloride [Moles/Vol] 104 mmol/L Normal 98-107 [facility] Comment on above: Performed By: #### U AMIC #### [facility] [address] [address] [address] Nancy Montalvo CO2 [Moles/Vol] 23.3 mmol/L Normal 21.0-32.0 [facility] Comment on above: Performed By: #### U AMIC #### [facility] [address] [address] [address] Nancy Montalvo Creatinine [Mass/Vol] 2.66 mg/dL Critically high 0.55-1.02 [facility] Comment on above: Performed By: #### U AMIC #### [facility] [address] [address] [address] Nancy Montalvo EGFR-AF MAURITANIAN 21 mL/min/1.73m2 Critically low >=60 [facility] Comment on above: Performed By: #### U AMIC #### [facility] [address] [address] [address] Nancy Montalvo EGFR-NON AF MAURITANIAN 17 mL/min/1.73m2 Critically low >=60 [facility] Comment on above: Performed By: #### U AMIC #### [facility] [address] [address] [address] Nancy Montalvo Globulin (S) [Mass/Vol] 3.2 g/dL Normal [facility] Comment on above: Performed By: #### U AMIC #### [facility] [address] [address] [address] Nancy Montalvo Glucose [Mass/Vol] 84 mg/dL Normal 74-106 [facility] Comment on above: Performed By: #### U AMIC #### [facility] [address] [address] [address] Nancy Montalvo Potassium [Moles/Vol] 4.8 mmol/L Normal 3.5-5.1 [facility] Comment on above: Performed By: #### U AMIC #### [facility] [address] [address] [address] Nancy Montalvo Protein [Mass/Vol] 5.7 g/dL Critically low 6.4-8.2 Th e [facility] Comment on above: Performed By: #### U AMIC #### [facility] [address] [address] [address] Nancy Montalvo Sodium [Moles/Vol] 136 mmol/L Normal 136-145 [facility] Comment on above: Performed By: #### U AMIC #### [facility] [address] [address] [address] Nancy Montalvo Urea nitrogen [Mass/Vol] 66.0 mg/dL Critically high 7.0-18.0 [facility] Comment on above: Performed By: #### U AMIC #### [facility] Laboratory [address] [address] [address] Nancy Montalvo Urea nitrogen/Creatinine [Mass ratio] 24.8 mg/mg Normal [facility] Comment on above: Performed By: #### U AMIC #### [facility] [address] [address] [address] Nancy Montalvo PROTIMEon 09-15-2021 INR Coag (PPP) [Relative time] 2.47 {INR} Normal [facility] Comment on above: Performed By: #### P OCGLUC #### [facility] [address] [place] [address] Dr. Nancy Montalvo INR GUIDELINES SEE BELOW Normal [facility] Comment on above: Result Comment: ADITYA RED INR: 2.0 - 3.0 CONDITIONS NOT LISTED BELOW 2.5 - 3.5 FOR PROSTHETIC HEART VALVE REPLACEMENT 2.5 - 3.5 RECURRENT THROMBOSIS Performed By: #### P OCGLUC #### [facility] [address] [place] [address] Dr. Nancy Montalvo PT Coag (PPP) [Time] 25.1 s Critically high 9.0-11.6 [facility] Comment on above: Performed By: #### P OCGLUC #### [facility] [address] [place] [address] Dr. Nancy Montalvo BNPon 09-14-2021 Natriuretic peptide B (Bld) [Mass/Vol] 1255.0 pg/mL Normal <=1,800.0 [facility] Comment on above: Performed By: #### P OCGLUC #### [facility] [address] [place] [address] Dr. Nancy Montalvo CBC W MANUAL DIFFon 09-15-19 22 ATYPICAL LYMPH # Normal [facility] Comment on above: Performed By: #### P OCGLUC #### [facility] [address] [place] [address] Dr. Nancy Montalvo ATYPICAL LYMPH % Normal [facility] Comment on above: Performed By: #### P OCGLUC #### [facility] [address] [place] [address] Dr. Nancy Montalvo BAND # Normal 0.0-0.3 [facility] Comment on above: Performed By: #### P OCGLUC #### [facility] [address] [place] [address] Dr. Nancy Montalvo BAND % Normal 0-5 [facility] Comment on above: Performed By: #### P OCGLUC #### [facility] [address] [address] [address] Nancy Montalvo BASOM # 0.11 103/ul Critically high 0.00-0.10 [facility] Comment on above: Performed By: #### P OCGLUC #### [facility] [address] [address] [address] Nancy Montalvo BASOM % 1.0 % Normal 0.2-2.0 [facility] Comment on above: Performed By: #### P OCGLUC #### [facility] [address] [address] [address] Nancy Montalvo BLAST # Normal [facility] Comment on above: Performed By: #### P OCGLUC #### [facility] [address] [address] [address] Nancy Montalvo BLAST % Normal [facility] Comment on above: Performed By: #### P OCGLUC #### [facility] [address] [address] [address] Nancy Montalvo CORRECTED WBC Normal 4.0-11.0 [facility] Comment on above: Performed By: #### P OCGLUC #### [facility] [address] [address] [address] Nancy Montalvo EOS # 0.45 103/ul Normal 0.00-0.70 [facility] Comment on above: Performed By: #### P OCGLUC #### [facility] [address] [address] [address] Nancy Montalvo EOS% 4.0 % Normal 0.9-7.0 [facility] Comment on above: Performed By: #### P OCGLUC #### [facility] [address] [address] [address] Nancy Montalvo HCT 32.7 % Critically low 36.0-48.0 [facility] Comment on above: Performed By: #### P OCGLUC #### [facility] [address] [place] [address] Dr. Nancy Montalvo HGB 10.2 g/dl Critically low 12.0-16.0 [facility] Comment on above: Performed By: #### P OCGLUC #### [facility] [address] [address] [address] Nancy Montalvo LYMPHM # 5.38 103/ul Critically high 1.20-3.80 [facility] Comment on above: Performed By: #### P OCGLUC #### [facility] [address] [address] [address] Nancy Montalvo LYMPHM% 48.0 % Normal 20.5-60.0 [facility] Comment on above: Performed By: #### P OCGLUC #### [facility] [address] [address] [address] Nancy Montalvo MCH 32.4 pg Normal 26.7-34.0 [facility] Comment on above: Performed By: #### P OCGLUC #### [facility] [address] [place] [address] Dr. Nancy Montalvo MCHC 31.2 g/dl Normal 29.9-35.2 [facility] Comment on above: Performed By: #### P OCGLUC #### [facility] [address] [address] [address] Nancy Montalvo MCV 103.8 fL Critically high 81.0-99.0 [facility] Comment on above: Performed By: #### P OCGLUC #### [facility] [address] [place] [address] Dr. Nancy Montalvo METAMYELOCYTE # Normal [facility] Comment on above: Performed By: #### P OCGLUC #### [facility] [address] [place] [address] Dr. Nancy Montalvo METAMYELOCYTE % Normal [facility] Comment on above: Performed By: #### P OCGLUC #### [facility] [address] [place] [address] Dr. Nancy Montalvo MONOM# 0.56 103/ul Normal 0.30-0.80 [facility] Comment on above: Performed By: #### P OCGLUC #### [facility] [address] [address] [address] Nancy Montalvo MONOM% 5.0 % Normal 1.7-12.0 [facility] Comment on above: Performed By: #### P OCGLUC #### [facility] [address] [place] [address] Dr. Nancy Montalvo MPV 12.6 fL Normal 9.5-13.5 [facility] Comment on above: Performed By: #### P OCGLUC #### [facility] [address] [address] [address] Nancy Montalvo MYELOCYTE # Normal [facility] Comment on above: Performed By: #### P OCGLUC #### [facility] [address] [place] [address] Dr. Nancy Montalvo MYELOCYTE % Normal [facility] Comment on above: Performed By: #### P OCGLUC #### [facility] [address] [place] [address] Dr. Nancy Montalvo NRBC Normal [facility] Comment on above: Performed By: #### P OCGLUC #### [facility] [address] [place] [address] Dr. Nancy Montalvo PLT 145 103/ul Critically low 150-450 [facility] Comment on above: Performed By: #### P OCGLUC #### [facility] [address] [place] [address] Dr. Nancy Montalvo RBC 3.15 106/ul Critically low 4.20-5.40 [facility] Comment on above: Performed By: #### P OCGLUC #### [facility] [address] [place] [address] Dr. Nancy Montalvo RDW 13.2 % Normal 11.0-15.0 [facility] Comment on above: Performed By: #### P OCGLUC #### [facility] [address] [place] [address] Dr. Nancy Montalvo SEG # 4.70 103/ul Normal 1.40-6.50 [facility] Comment on above: Performed By: #### P OCGLUC #### [facility] [address] [place] [address] Dr. Nancy Montalvo SEG % 42.0 % Critically low 43.0-75.0 [facility] Comment on above: Performed By: #### P OCGLUC #### [facility] [address] [address] [address] Nancy Montalvo WBC 11.2 103/ul Critically high 4.0-11.0 [facility] Comment on above: Performed By: #### P OCGLUC #### [facility] [address] [address] [address] Nancy Montalvo POINT OF CARE GLUCOSEon 08-18 Glucose [Mass/Vol] 101 mg/dL Normal 74-106 [facility] Comment on above: Performed By: #### P OCGLUC #### [facility] [address] [place] [address] Dr. Nancy Montalvo Glucose [Mass/Vol] 145 mg/dL Critically high 74-106 [facility] Comment on above: Performed By: #### C MP #### [facility] [address] [address] [address] Nancy Montalvo Glucose [Mass/Vol] 87 mg/dL Normal 74-106 [facility] Comment on above: Performed By: #### U AMIC #### [facility] [address] [place] [address] Dr. Nancy Montalvo PROF 14(COMP METB)on 022 Albumin [Mass/Vol] 2.8 g/dL Critically low 3.4-5.0 [facility] Comment on above: Performed By: #### P OCGLUC #### [facility] [address] [place] [address] Dr. Nancy Montalvo Albumin/Globulin [Mass ratio] 0.8 {ratio} Normal [facility] Comment on above: Performed By: #### P OCGLUC #### [facility] [address] [place] [address] Dr. Nancy Montalvo ALP [Catalytic activity/Vol] 59 U/L Normal 46-116 [facility] Comment on above: Performed By: #### P OCGLUC #### [facility] [address] [place] [address] Dr. Nancy Montalvo ALT [Catalytic activity/Vol] 43 U/L Normal 14-59 [facility] Comment on above: Performed By: #### P OCGLUC #### [facility] [address] [address] [address] Nancy Montalvo Anion gap [Moles/Vol] 12.9 mmol/L Normal [facility] Comment on above: Performed By: #### P OCGLUC #### [facility] [address] [address] [address] Nancy Montalvo AST [Catalytic activity/Vol] 31 U/L Normal 15-37 [facility] Comment on above: Performed By: #### P OCGLUC #### [facility] [address] [address] [address] Nancy Montalvo Bilirubin [Mass/Vol] 0.3 mg/dL Normal 0.2-1.0 [facility] Comment on above: Performed By: #### P OCGLUC #### [facility] [address] [address] [address] Nancy Montalvo Calcium [Mass/Vol] 8.8 mg/dL Normal 8.5-10.1 [facility] Comment on above: Performed By: #### P OCGLUC #### [facility] [address] [address] [address] Nancy Montalvo Chloride [Moles/Vol] 104 mmol/L Normal 98-107 [facility] Comment on above: Performed By: #### P OCGLUC #### [facility] [address] [address] [address] Nancy Montalvo CO2 [Moles/Vol] 23.7 mmol/L Normal 21.0-32.0 [facility] Comment on above: Performed By: #### P OCGLUC #### [facility] [address] [address] [address] Nancy Montalvo Creatinine [Mass/Vol] 2.43 mg/dL Critically high 0.55-1.02 [facility] Comment on above: Performed By: #### P OCGLUC #### [facility] [address] [address] [address] Nacny Montalvo EGFR-AF MAURITANIAN 23 mL/min/1.73m2 Critically low >=60 [facility] Comment on above: Performed By: #### P OCGLUC #### [facility] [address] [address] [address] Nancy Montalvo EGFR-NON AF MAURITANIAN 19 mL/min/1.73m2 Critically low >=60 [facility] Comment on above: Performed By: #### P OCGLUC #### [facility] [address] [address] [address] Nancy Montalvo Globulin (S) [Mass/Vol] 3.3 g/dL Normal [facility] Comment on above: Performed By: #### P OCGLUC #### [facility] [address] [address] [address] Nancy Montalvo Glucose [Mass/Vol] 80 mg/dL Normal 74-106 [facility] Comment on above: Performed By: #### P OCGLUC #### [facility] [address] [address] [address] Nancy Montalvo Potassium [Moles/Vol] 4.6 mmol/L Normal 3.5-5.1 [facility] Comment on above: Performed By: #### P OCGLUC #### [facility] [address] [address] [address] Nancy Montalvo Protein [Mass/Vol] 6.1 g/dL Critically low 6.4-8.2 [facility] Comment on above: Performed By: #### P OCGLUC #### [facility] [address] [address] [address] Nancy Montalvo Sodium [Moles/Vol] 136 mmol/L Normal 136-145 [facility] Comment on above: Performed By: #### P OCGLUC #### [facility] [address] [address] [address] Nancy Montalvo Urea nitrogen [Mass/Vol] 59.0 mg/dL Critically high 7.0-18.0 [facility] Comment on above: Performed By: #### P OCGLUC #### [facility] [address] [address] [address] Nancy Montalvo Urea nitrogen/Creatinine [Mass ratio] 24.3 mg/mg Normal [facility] Comment on above: Performed By: #### P OCGLUC #### [facility] [address] [place] [address] Dr. Nancy Montalvo PROTIMEon 09-14-2021 INR Coag (PPP) [Relative time] 1.79 {INR} Normal [facility] Comment on above: Performed By: #### C MP #### [facility] [address] [place] [address] Dr. Nancy Montalvo INR GUIDELINES SEE BELOW Normal [facility] Comment on above: Result Comment: ADITYA RED INR: 2.0 - 3.0 CONDITIONS NOT LISTED BELOW 2.5 - 3.5 FOR PROSTHETIC HEART VALVE REPLACEMENT 2.5 - 3.5 RECURRENT THROMBOSIS Performed By: #### C MP #### [facility] [address] [place] [address] Dr. Nancy Montalvo PT Coag (PPP) [Time] 18.6 s Critically high 9.0-11.6 [facility] Comment on above: Performed By: #### C MP #### [facility] [address] [place] [address] Dr. Nancy Montalvo UA RANDOM W/MICROSCOPICon BACTERIA TRACE Abnormal NONE SEEN [facility] Comment on above: Performed By: #### A 1C #### [facility] [address] [place] [address] Dr. Nancy Montalvo Bilirubin Ql (U) Negative Normal NEGATIVE [facility] Comment on above: Performed By: #### A 1C #### [facility] [address] [place] [address] Dr. Nancy Montalvo CAST NONE SEEN Normal NONE SEEN [facility] Comment on above: Performed By: #### A 1C #### [facility] [address] [place] [address] Dr. Nancy Montalvo Clarity (U) CLEAR Normal CLEAR [facility] Comment on above: Performed By: #### A 1C #### [facility] [address] [place] [address] Dr. Nancy Montalvo Color (U) LT. YELLOW Normal YELLOW [facility] Comment on above: Performed By: #### A 1C #### [facility] [address] [place] [address] Dr. Nancy Montalvo Crystals LM Nom (Urine sed) NONE SEEN Normal NONE SEEN [facility] Comment on above: Performed By: #### A 1C #### [facility] [address] [place] [address] Dr. Nancy Montalvo Epithelial cells LM Ql (Urine sed) FEW Abnormal NONE SEEN /RARE [facility] Comment on above: Performed By: #### A 1C #### [facility] [address] [place] [address] Dr. Nancy Montalvo Glucose Ql (U) Negative Normal NEGATIVE [facility] Comment on above: Performed By: #### A 1C #### [facility] [address] [place] [address] Dr. Nancy Montalvo Hemoglobin Ql (U) Negative Normal NEGATIVE [facility] Comment on above: Performed By: #### A 1C #### [facility] [address] [place] [address] Dr. Nancy Montalvo Ketones Ql (U) Negative Normal NEGATIVE [facility] Comment on above: Performed By: #### A 1C #### [facility] [address] [place] [address] Dr. Nancy Montalvo LEUKOCYTES MODERATE Abnormal NEGATIVE [facility] Comment on above: Performed By: #### A 1C #### [facility] [address] [place] [address] Dr. Nancy Montalvo MUCOUS SMALL Abnormal NONE SEEN [facility] Comment on above: Performed By: #### A 1C #### [facility] [address] [place] [address] Dr. Nancy Montalvo Nitrite Ql (U) Negative Normal NEGATIVE [facility] Comment on above: Performed By: #### A 1C #### [facility] [address] [place] [address] Dr. Nancy Montalvo pH (U) 5.0 [pH] Normal 5-9 [facility] Comment on above: Performed By: #### A 1C #### [facility] [address] [place] [address] Dr. Nancy Montalvo RBC NONE SEEN Abnormal 0-2 [facility] Comment on above: Performed By: #### A 1C #### [facility] [address] [place] [address] Dr. Nancy Montalvo SPEC GRAVITY 1.025 Normal 1.005-<=1.0 25 [facility] Comment on above: Performed By: #### A 1C #### [facility] [address] [place] [address] Dr. Nancy Montalvo UA PROTEIN Negative Normal NEGATIVE/ TRACE [facility] Comment on above: Performed By: #### A 1C #### [facility] [address] [place] [address] Dr. Nancy Montalvo Urobilinogen Qn (U) 0.2 {Grant'U}/dL Normal 0.2 - 1. 0 [facility] Comment on above: Performed By: #### A 1C #### [facility] [address] [place] [address] Dr. Nancy Montalvo WBC 5-10 Abnormal NONE SEEN [facility] Comment on above: Performed By: #### A 1C #### [facility] [address] [place] [address] Dr. Nancy Montalvo CBC AUTO DIFFon 09-13-2021 BASO # 0.1 103/ul Normal 0.0-0.1 [facility] Comment on above: Performed By: #### C VDTB #### [facility] [address] [place] [address] Dr. Nancy Montalvo Basophils/100 WBC (Bld) 0.5 % Normal 0.2-2.0 [facility] Comment on above: Performed By: #### C VDTBH #### [facility] [address] [place] [address] Dr. Nancy Montalvo EO # 0.1 103/ul Normal 0.0-0.7 [facility] Comment on above: Performed By: #### C VDTBH #### [facility] [address] [place] [address] Dr. Nancy Montalvo Eosinophils/100 WBC (Bld) 0.6 % Critically low 0.9-7.0 [facility] Comment on above: Performed By: #### C VDTBH #### [facility] [address] [place] [address] Dr. Nancy Montalvo Erythrocyte distribution width (RBC) [Ratio] 12.9 % Normal 11.0-15.0 [facility] Comment on above: Performed By: #### C VDTBH #### [facility] [address] [place] [address] Dr. Nancy Montalvo Hematocrit (Bld) [Volume fraction] 33.3 % Critically low 36.0-48.0 [facility] Comment on above: Performed By: #### C VDTBH #### [facility] [address] [place] [address] Dr. Nancy Montalvo Hemoglobin (Bld) [Mass/Vol] 10.4 g/dL Critically low 12.0-16.0 [facility] Comment on above: Performed By: #### C VDTBH #### [facility] [address] [place] [address] Dr. Nancy Montalvo IG # 0.03 10e3/ul Normal 0.00-0.03 [facility] Comment on above: Performed By: #### C VDTBH #### [facility] [address] [place] [address] Dr. Nancy Montalvo IG % 0.3 % Normal 0.0-0.5 [facility] Comment on above: Performed By: #### C VDTBH #### [facility] [address] [place] [address] Dr. Nancy Montalvo LYMPH # 1.9 103/ul Normal 1.2-3.8 [facility] Comment on above: Performed By: #### C VDTBH #### [facility] [address] [place] [address] Dr. Nancy Montalvo Lymphocytes/100 WBC (Bld) 19.9 % Critically low 20.5-60.0 [facility] Comment on above: Performed By: #### C VDTBH #### [facility] [address] [place] [address] Dr. Nancy Montalvo MANUAL DIFF REQ NO Normal [facility] Comment on above: Performed By: #### C VDTBH #### [facility] [address] [place] [address] Dr. Nancy Montalvo MCH (RBC) [Entitic mass] 31.9 pg Normal 26.7-34.0 [facility] Comment on above: Performed By: #### C VDTBH #### [facility] [address] [place] [address] Dr. Nancy Montalvo MCHC (RBC) [Mass/Vol] 31.2 g/dL Normal 29.9-35.2 [facility] Comment on above: Performed By: #### C VDTBH #### [facility] [address] [place] [address] Dr. Nancy Montalvo MCV (RBC) [Entitic vol] 102.1 fL Critically high 81.0-99.0 [facility] Comment on above: Performed By: #### C VDTBH #### [facility] [address] [place] [address] Dr. Nancy Montalvo MONO # 0.8 103/ul Normal 0.3-0.8 [facility] Comment on above: Performed By: #### C VDTBH #### [facility] [address] [place] [address] Dr. Nancy Montalvo Monocytes/100 WBC (Bld) 8.1 % Normal 1.7-12.0 [facility] Comment on above: Performed By: #### C VDTBH #### [facility] [address] [place] [address] Dr. Nancy Montalvo NEUT # 6.6 103/ul Critically high 1.4-6.5 [facility] Comment on above: Performed By: #### C VDTBH #### [facility] [address] [place] [address] Dr. Nancy Montalvo Neutrophils/100 WBC (Bld) 70.6 % Normal 43.0-75.0 [facility] Comment on above: Performed By: #### C VDTBH #### [facility] [address] [place] [address] Dr. Nancy Montalvo Platelet mean volume (Bld) [Entitic vol] 12.3 fL Normal 9.5-13.5 [facility] Comment on above: Performed By: #### C VDTBH #### [facility] [address] [address] [address] Nancy Montalvo PLT 160 103/ul Normal 150-450 [facility] Comment on above: Performed By: #### C VDTBH #### [facility] [address] [address] [address] Nancy Montalvo RBC 3.26 106/ul Critically low 4.20-5.40 [facility] Comment on above: Performed By: #### C VDTBH #### [facility] [address] [address] [address] Nancy Montalvo WBC 9.4 103/ul Normal 4.0-11.0 [facility] Comment on above: Performed By: #### C VDTBH #### [facility] [address] [place] [address] PELVIS WO CONon [...] JOSÉ CHENG Date: 2021-09-13 10:47 Normal [facility] Covid-19 PCR (CVDTBH)on 08-18 SARS-CoV-2 (COVID-19) RNA MARLENE+probe Ql (Unsp spec) Not detected Normal NOT DETECTED [facility] Comment on above: Result Comment: When [...] for this test is supported by the Business Administration Instructor of Health and Human Service's declaration that [...] used). Performed By: #### P OCGLUC #### [facility] [address] [place] [address] Dr. Nancy Montalvo POINT OF CARE GLUCOSEon 08-18 Glucose [Mass/Vol] 75 mg/dL Normal 74-106 [facility] Comment on above: Performed By: #### P OCGLUC #### [facility] [address] [place] [address] Dr. Nancy Montalvo Glucose [Mass/Vol] 82 mg/dL Normal 74-106 [facility] Comment on above: Performed By: #### P OCGLUC #### [facility] [address] [place] [address] Dr. Nancy Montalvo PROF CHEM 8 (BAS METB)on Anion gap [Moles/Vol] 16.7 mmol/L Normal [facility] Comment on above: Performed By: #### B LDCX1 #### [facility] [address] [address] [address] Nancy Montalvo Calcium [Mass/Vol] 8.8 mg/dL Normal 8.5-10.1 [facility] Comment on above: Performed By: #### B LDCX1 #### [facility] [address] [address] [address] Nancy Montalvo Chloride [Moles/Vol] 107 mmol/L Normal 98-107 [facility] Comment on above: Performed By: #### B LDCX1 #### [facility] [address] [address] [address] Nancy Montalvo CO2 [Moles/Vol] 23.0 mmol/L Normal 21.0-32.0 [facility] Comment on above: Performed By: #### B LDCX1 #### [facility] [address] [address] [address] Nancy Montalvo Creatinine [Mass/Vol] 2.51 mg/dL Critically high 0.55-1.02 [facility] Comment on above: Performed By: #### B LDCX1 #### [facility] [address] [address] [address] Nancy Montalvo EGFR-AF MAURITANIAN 22 mL/min/1.73m2 Critically low >=60 [facility] Comment on above: Performed By: #### B LDCX1 #### [facility] [address] [address] [address] Nancy Montalvo EGFR-NON AF MAURITANIAN 18 mL/min/1.73m2 Critically low >=60 [facility] Comment on above: Performed By: #### B LDCX1 #### [facility] [address] [address] [address] Nancy Montalvo Glucose [Mass/Vol] 91 mg/dL Normal 74-106 [facility] Comment on above: Performed By: #### B LDCX1 #### [facility] [address] [address] [address] Nancy Montalvo Potassium [Moles/Vol] 4.7 mmol/L Normal 3.5-5.1 [facility] Comment on above: Performed By: #### B LDCX1 #### [facility] [address] [place] [address] Dr. Nancy Montalvo Sodium [Moles/Vol] 142 mmol/L Normal 136-145 [facility] Comment on above: Performed By: #### B LDCX1 #### [facility] [address] [place] [address] Dr. Nancy Montalvo Urea nitrogen [Mass/Vol] 60.0 mg/dL Critically high 7.0-18.0 [facility] Comment on above: Performed By: #### B LDCX1 #### [facility] [address] [place] [address] Dr. Nancy Montalvo Urea nitrogen/Creatinine [Mass ratio] 23.9 mg/mg Normal [facility] Comment on above: Performed By: #### B LDCX1 #### [facility] [address] [place] [address] Dr. Nancy Montalvo PROTIMEon 09-13-2021 INR Coag (PPP) [Relative time] 1.53 {INR} Normal [facility] Comment on above: Performed By: #### P OCGLUC #### [facility] [address] [place] [address] Dr. Nancy Montalvo INR GUIDELINES SEE BELOW Normal [facility] [place] Comment on above: Result Comment: ADITYA RED INR: 2.0 - 3.0 CONDITIONS NOT LISTED BELOW 2.5 - 3.5 FOR PROSTHETIC HEART VALVE REPLACEMENT 2.5 - 3.5 RECURRENT THROMBOSIS Performed By: #### P OCGLUC #### [facility] [address] [place] [address] Dr. Nancy Montalvo PT Coag (PPP) [Time] 16.1 s Critically high 9.0-11.6 [facility] Comment on above: Performed By: #### P OCGLUC #### [facility] [address] [place] [address] Dr. Nancy Montalvo T4on 09-13-2021 T4 [Mass/Vol] 7.30 ug/dL Normal 4.80-13.90 [facility] Comment on above: Performed By: #### U AMIC #### [facility] [address], [place] [address] Dr. Nancy Montalvo TSHon 09-13-2021 TSH 1.045 uIU/mL Normal 0.358-3.740 [facility] Comment on above: Performed By: #### U AMIC #### [facility] [address] [place], [place] [address] Dr. Nancy Montalvo Cardiovascular Lab Reporton 08-30-2021 Cardiovascular Lab Report [facility] Patient Name: [facility] Gemma Blackmon MR #: [id number] Department of Physician: Rob Morales MD Medicine Service Date: 08/30/2021 Division of Birthdate: 1935 Cardiology Room #: [facility] Cardiovascular Services [place] [address] Cardiovascular Laboratory Report PACEMAKER GENERATOR CHANGE POCKET REVISION PROCEDURE NOTE DATE OF PROCEDURE: 08/30/2021 PERFORMING PHYSICIAN: Dr. Rob Morales CONSENT: Patient LOCATION: EP Lab PROCEDURE PERFORMED: 1. Implant of new pacemaker generator ([employer]). 2. Explant of pacemaker generator ([employer]). 3. Pocket Revision. INDICATIONS: 1. S/p [...] leads were then attached to a new Cardiac Insight generator and the leads tug tested. Pocket [...] the device as noted below. Device info: Cardiac Insight Accolade MRI DR IS-1 Model# [id number] Serial# [id number] RA lead: Implanted on 08/19/2012 Guidant Dextrus IS-1 4136-53 cm, Serial #[id number] Sensin.3mV Threshold: 0.7V@0.4ms Impedance: 564 Ohms RV lead: Implanted on 08/19/2012 Guidant Dextrus IS-1 4137-60cm Serial #[id number] Sensin.8mV Threshold: 1.8V@0.4ms Impedance: 468 Ohms POST [...] Morales MD Date Trans: 08/30/2021 01:25 P/catalina [id number] cc: Colette Méndez M.D. [place] [address] [facility] Praneeth Justice [facility] [id number] Normal [facility] Covid-19 PCR (CVDTB)on 08-17 SARS-CoV-2 (COVID-19) RNA MARLENE+probe Ql (Unsp spec) Not detected Normal NOT DETECTED [facility] Comment on above: Result Comment: This test is not yet approved or cleared by the [place] FDA. When there are no FDA-approved or cleared tests available, and other criteria are met, FDA can make tests available under an emergency access mechanism called an Emergency Use Authorization (EUA). The EUA for this test is supported by the Dewar of Health and Human Service's (HHS's) declaration [...] SARS-CoV-2. Performed By: #### C MP #### [facility] [address] [address] [address] Nancy Montalvo Vital Signs Date Time Vital Sign Value Performing Clinician Lisset craven 11-14-2022 13:26-0400 Blood Pressure Location Tom THOMPSON [facility] 11-14-2022 13:26-0400 Diastolic blood pressure 60 mm[Hg] Tom HAYNESL [facility] 11-14-2022 13:26-0400 Heart rate 70 /min Tom THOMPSON [facility] 11-14-2022 13:26-0400 Respiratory rate 16 /min Tom THOMPSON [facility] 11-14-2022 13:26-0400 Systolic blood pressure 116 mm[Hg] Tom THOMPSON [facility] Encounters Encounter Date Encounter Type Care Provider Facility Start: 08-15-2023 End: 08-15-2023 ambulatory ADAN DENNIS [facility] Start: 07-23-2023 End: 07-30-2023 Evaluation and management of inpatient SANJAY BERNARD [facility] Start: 07-23-2023 End: 07-30-2023 Evaluation and management of inpatient SANJAY BERNARD [facility] Start: 07-23-2023 Emergency department patient visit KATY MONTOYA [facility] Start: 07-18-2023 End: 07-21-2023 ambulatory [facility] Start: 07-03-2023 End: 07-03-2023 [facility] [place] Start: 06-27-2023 End: 06-28-2023 ambulatory [facility] Start: 06-20-2023 End: 06-21-2023 [facility] Start: 06-13-2023 End: 06-14-2023 [facility] Start: 05-29-2023 End: 05-30-2023 [facility] Start: 05-29-2023 End: 05-29-2023 Subsequent hospital visit by physician Ayaka Downing [facility] Medication Management Comment on above: Atrial fibrillation, unspecified type (HCC) (Primary Dx) Start: 05-17-2023 End: 05-18-2023 [facility] Start: 04-25-2023 End: 04-26-2023 [facility] Start: 04-25-2023 End: 04-25-2023 Subsequent hospital visit by physician Nallely Degroot [facility] Medication Management Comment on above: Atrial fibrillation, unspecified type (HCC) (Primary Dx) Start: 04-13-2023 End: 04-14-2023 [facility] Start: 04-13-2023 End: 04-13-2023 Subsequent hospital visit by physician Juan José Velazquez [facility] Work Phone: [facility] Medication Management Comment on above: Atrial fibrillation, unspecified type (HCC) (Primary Dx) Start: 04-05-2023 End: 04-06-2023 ambulatory COLETTE Son [facility] Start: 03-08-2023 End: 03-08-2023 ambulatory ABDI ROYAL Not Available Start: 02-26-2023 End: 02-26-2023 ambulatory Colette Méndez Facility:[facility] Start: 02-26-2023 End: 02-26-2023 ambulatory MD Colette Méndez Work Phone: [facility] Work Phone: Start: 02-26-2023 End: 02-26-2023 Patient encounter procedure MD Colette Méndez Work Phone: [facility] Work Phone: Start: 02-15-2023 End: 02-15-2023 ambulatory Colette Méndez Facility:[facility] Start: 02-15-2023 End: 02-15-2023 ambulatory MD Colette Méndez Work Phone: [facility] Work Phone: Start: 02-15-2023 End: 02-15-2023 Patient encounter procedure MD Colette Méndez Work Phone: [facility] Work Phone: Start: 12-05-2022 End: 12-06-2022 ambulatory Tom THOMPSON Facility: [facility] Start: 11-22-2022 End: 11-23-2022 ambulatory Tom THOMPSON Facility:[facility] Start: 11-22-2022 End: 11-22-2022 Patient encounter procedure Tom THOMPSON General Surgery Nill[facility] Start: 11-14-2022 End: 11-15-2022 ambulatory Tom Jimenez JAY Facility:[facility] Start: 11-14-2022 End: 11-14-2022 Patient encounter procedure Tom Jimenez IVYSuzy General Surgery [facility] Start: 10-31-2022 End: 10-31-2022 ambulatory [facility] Start: 10-17-2022 ambulatory Tom JAY Facility:[facility] Start: 08-07-2022 ambulatory AURELIO NGOZIJai . Facility: [facility] Start: 08-02-2022 End: 08-02-2022 [...] TINSLEY Facility:[facility] Start: 05-16-2022 End: 05-16-2022 ambulatory [facility] Start: 04-25-2022 End: 04-26-[address] COLETTE MÉNDEZ . Facility:[facility] Start: 04-19-2022 End: 05-17-2022 ambulatory AYOUB H FAWWAD Facility:[facility] Start: 03-29-2022 End: 03-30-2022 ambulatory BERNICE DELEON Facility:[facility] Start: 03-20-2022 End: 04-19-2022 ambulatory AYOUB H FAWWAD Facility:[facility] Start: 03-15-2022 End: 03-15-2022 ambulatory [facility] Start: 02-16-2022 End: 03-19-2022 ambulatory AYOUB H [...] Start: 08-30-2021 End: 08-31-2021 ambulatory ROB MORALES Facility:[facility] Start: 08-29-2021 Encounter for preprocedural laboratory examination ROB MORALES [facility] Start: 08-26-2021 End: 08-27-2021 ambulatory ROB MORALES Facility:[facility] Start: 08-26-2021 End: 08-27-2021 Encounter for preprocedural laboratory examination ROB MORALES Facility:[facility] Start: 11-28-2018 End: 11-28-2018 Patient encounter procedure UNKNOWN PROVIDER Facility:[facility] Start: 08-01-2018 End: 08-01-2018 Patient encounter procedure UNKNOWN PROVIDER Facility:[facility] Start: 02-21-2018 End: 02-21-2018 Patient encounter procedure UNKNOWN PROVIDER Facility:[facility] Procedures Date Procedure Procedure Detail Performing [...] encounter procedure 06/13/2023 3:30 PM EDT Appointment [facility]ication [facility] [address] [place] [address] [facility] Comment on above: ([facility] 03/22/2024) Start: 05-09-2023 End: 05-09-2023 Patient encounter procedure 05/09/2023 3:30 PM EST Appointment [facility] [address] [place] [address] ([facility] 03/22/2024) [facility] Comment on above: ([facility] 03/22/2024) Start: 04-25-2023 End: 04-25-2023 Patient encounter procedure 04/25/2023 3:30 PM EST Appointment [facility] [address] [place] [address] new ([facility] 03/22/2024) [facility] Comment on above: new ([facility] ) Start: 03-19-2023 Annual Wellness Visi t (Medicare Advantage) Annual Wellness Visit (Medicare Advantage) MONIKA [facility] Start: 10-17-2022 Influenza vaccination Flu vaccine (# 1) [facility] Start: 1984 Shingles vaccine (1 of 2) Shingles vaccine (1 of 2) [facility] Start: 1953 DTaP/Tdap/Td vaccine (1 - Tdap) DTaP/Tdap/Td vaccine (1 - Tdap) [facility] Start: 1946 Depression Screen Depression Screen [facility] Start: 1944 Lipid panel [facility]ids [facility] Immunizations Immunization Date Immunization Notes Care Provider Fa cility 07-25-2022 SARS-CoV-2 (COVID-19 ) mRNAMUL.ORD![id number] [employer] [facility] 07-10-2022 SARS-CoV-2 (COVID-19 ) mRNA-[address] [facility] 02-27-2022 SARS-CoV-2 (COVID-19 ) mRNAMUL.ORD![id number] Tom Emos [employer]L [facility] 09-29-2021 SARS-CoV-2 mRNA (ugzxzqerxht-nmfg-qqpql se) vaccine [employer] [facility] 05-07-2020 SARS-CoV-2 (COVID-19 ) mRNA BNT-162b2 v[address] [employer] [facility] Comment on above: Result Comment: 2022: [id number] 04-16-2020 SARS-CoV-2 (COVID-19 ) mRNA BNT-162b2 vax [employer] [facility] Comment on above: Result Comment: 2022: [id number] Payers Date Payer Category Payer Medicare [id number] 2023 Self-pay 1960 Medicare [id number] 1960 Self-pay [id number] 1935 Unknown [id number] 2.16. 840.1.907642.3.579.2.732 1934 Unknown [id number] 2.16. 840.1.275662.3.579.2.732 1934 Unknown [id number] 2.16. 840.1.201241.3.579.2.732 1934 Unknown [id number] 2.16.8 40.1.853360.3.579.2.647 1934 Unknown [id number] 2.16.84 0.1.050067.3.579.2.593 1934 Unknown [id number] 2.16.84 0.1.013090.3.579.2.593 1934 Unknown [id number] 2.16.84 0.1.464183.3.579.2.593 1934 Unknown [id number] 2.16.84 0.1.511367.3.579.2.593 1934 Unknown [id number] 2.16.84 0.1.886538.3.579.2.593 1934 Unknown [id number] 2.16.84 0.1.358993.3.579.2.593 1934 Unknown [id number] 2.16.84 0.1.601606.3.579.2.593 1934 Unknown [id number] 2.16.84 0.1.457835.3.579.2.593 1934 Unknown [id number] 2.16.84 0.1.060506.3.579.2.593 1934 Unknown [id number] 2.16.84 0.1.305224.3.579.2.593 1934 Unknown [id number] 2.16.84 0.1.132977.3.579.2.593 1934 Unknown [id number] 2.16.84 0.1.745727.3.579.2.593 1934 Unknown [id number] 2.16.84 0.1.604943.3.579.2.593 1934 Unknown [id number] 2.16.84 0.1.949826.3.579.2.593 1934 Unknown [id number] 2.16.84 0.1.101224.3.579.2.593 1934 Unknown [id number] 2.16.84 0.1.304419.3.579.2.593 1934 Unknown [id number] 2.16.84 0.1.252434.3.579.2.593 1934 Unknown [id number] 2.16.84 0.1.699918.3.579.2.593 1934 Unknown [id number] 2.16.84 0.1.145105.3.579.2.593 1934 Unknown [id number] 2.16.84 0.1.023250.3.579.2.593 1934 Unknown [id number] 2.16.84 0.1.206882.3.579.2.593 1934 Unknown [id number] 2.16.84 0.1.222604.3.579.2.593 1934 Unknown [id number] 2.16.84 0.1.512605.3.579.2.593 1934 Unknown [id number] 2.16.84 0.1.394527.3.579.2.593 1934 Unknown [id number] 2.16.8 40.1.031218.3.579.2.727 1934 Unknown [id number] 2.16.8 40.1.029743.3.579.2.727 1934 Unknown [id number] 2.16.8 40.1.597881.3.579.2.727 1934 Unknown [id number] 2.16.840 .1.018309.3.579.2.1259 1934 Unknown [id number] 2.16.8 40.1.375324.3.579.2.176 1934 Unknown [id number] 2.16.8 40.1.117469.3.579.2.176 1934 Unknown [id number] 2.16.8 40.1.691460.3.579.2.176 1934 Unknown [id number] 2.16.8 40.1.508346.3.579.2.176 1934 Unknown [id number] 2.16.8 40.1.008105.3.579.2.176 1934 Unknown [id number] 2.16.8 40.1.497732.3.579.2.176 1934 Unknown [id number] 2.16.8 40.1.497475.3.579.2.176 1934 Unknown [id number] 2.16. 840.1.997439.3.579.2.175 1934 Unknown [id number] 2.16. 840.1.793584.3.579.2.175 1934 Unknown [id number] 2.16. 840.1.247282.3.579.2.175 1934 Unknown [id number] 2.16. 840.1.256858.3.579.2.175 Medicare [id number] Unknown SJ MARIA [id number] Unknown [id number] 2.16.8 40.1.256578.3.579.2.531 Unknown [id number] 2.16.8 40.1.531429.3.579.2.531 Social History Date Type Detail Facility Start: 11-14-2022 Tobacco smoking status Ex-smoker (finding) [facility] Tobacco smoking status Never [facility] Start: 08-02-2012 Sex Assigned At Female F [facility] Start: 1935 Sex Assigned At Female F [facility] Tobacco smoking status NHIS Tobacco smoking consumption unknown [facility] Start: 08-02-2012 History of Social function [facility] Start: 1935 Sex Assigned At Not on file B ON [facility] Functional Status Date Assessment Result Facility 11-14-2022 Functional Status N/A [facility] Clinical Notes 09-13-2021 to 05-29-2023 Ayaka Downing, [facility] - 05/29/2023 3:10 PM Nallely Faulkner, [facility] - 04/25/2023 3:30 PM Juan José Bullock, [facility] - 04/13/2023 3:30 PM EST Note Date [...] Spent (min): 20 Ayaka Downing, LiliamD PGY1 [facility] documented in this encounter [facility] 04-25-2023 History of Present illness Narrative [...] Spent (min): 20 Nallely Degroot, Liliam D, [facility] 04/25/2023 4:10 PM documented in this encounter [facility] 04-13-2023 History of Present illness Narrative [...] Spent (min): 20 documented in this encounter [facility] 11-14-2022 Note Chief Complaint consultation for [...] tab(s), Oral, Chrissy (more content not included)... [facility] Comment on above: Result Comment: Elec tronically Signed By: JAY BRYAN, Tom Lujan\Date and Time Signed: 11/14/22 13:57 EDT 10-31-2022 Note [place] Electrophysiology Note [facility] Reason for visit: 6 month follow up 10/31/22 Patient is doing well. She was admitted to [facility] for weakness but has been doing [...] consistent with a.flutter Patient has got a [employer] dual-chamber pacemaker implanted on 08/19/2012 with thresholds that are in normal range. She is noted to have atrial flutter with a cycle length of nearly 440 ms. The ventricular rate is controlled during this time. EKG 01/21/2018 shows atrial pacing and kaltag conduction 01/12/2017 shows AV sequential pacing 01/12/2016 shows again AV sequential pacing Echocardiogram from 10/21/2019 shows ejection fraction of 75% with a severely dilated left atrium and a moderately dilated right atrium with mild aortic valve regurgitation and mild aortic valve stenosis She did not get her amiodarone annual testing done but was recently seen at [facility] for a pelvic fracture, no chest xray [...] Insomnia, unspecified Hypothyroidism, unspecified Hyperlipidemia, unspecified HX: group home anticoagulant use History of malignant 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 [facility] 07-02-2022 Note PROCEDURE: US THYROI D DATE: [...] JUAN F ENCARNACION Date: 2022-07-02 08:56 [facility] 05-16-2022 Note to schedule the H&P with you yeah but if they can do it I want to make sure that [place] Electrophysiology Note [facility] Reason for visit: 6 month follow [...] consistent with a.flutter Patient has got a [employer] dual-chamber pacemaker implanted on 08/19/2012 with thresholds that are in normal range. She is noted to have atrial flutter with a cycle length of nearly 440 ms. The ventricular rate is controlled during this time. EKG 01/21/2018 shows atrial pacing and kaltag conduction 01/12/2017 shows AV sequential pacing 01/12/2016 shows again AV sequential pacing Echocardiogram from 10/21/2019 shows ejection fraction of 75% with a severely dilated left atrium and a moderately dilated right atrium with mild aortic valve regurgitation and mild aortic valve stenosis She did not get her amiodarone annual testing done but was recently seen at [facility] for a pelvic fracture, no chest xray [...] 20 mg by (more content not included)... [facility] 03-23-2022 Note chest [facility] 03-15-2022 Note -mild on last echo, no murmur associated heard, will follow up with echo [facility] 03-15-2022 Note Hypertension is stab le -continue cardizem, lasix [facility] 03-15-2022 Note -on amiodarone, has had recent labs done when admitted for pelvic fracture -no chest xray done, will order for annual amiodarone work up -she has had a few instances of palpitations, will follow up with device check to assess for any AF/AT burden -continue amiodarone, cardizem, warfarin [facility] 03-15-2022 Note -hx moderate stenosi s, grade II aortic murmer, has not been documented before and patient was unaware of having a murmur -she is asymptomatic, had 1 episode of syncope in october which she attributed to hypoglycemia, no events since -will get echo prior to follow up to assess severity or changes of stenosis, last echo 2019 [facility] 03-15-2022 Note -recent device check showed no AT/AF -will have device checked in April, will assess for any arrhythmias, she will follow up with Dr. Morales at that time [facility] 03-15-2022 Note [place] Cardiology Note [facility] Reason for visit: 6 month follow up HPI: Gemma Lewis is a 86 y.o. year old with past medical history of sick sinus s/p PPM, persistent a-fib, aortic valve stenosis, mitral valve regurgitation, hypertension is here for 6 month follow up. She did not get her amiodarone annual testing done but was recently seen at [facility] for a pelvic fracture, no chest xray [...] consistent with a.flutter Patient has got a [employer] dual-chamber pacemaker implanted on 08/19/2012 with thresholds that are in normal range. She is noted to have atrial flutter with a cycle length of nearly 440 ms. The ventricular rate is controlled during this time. EKG 01/21/2018 shows atrial pacing and kaltag conduction 01/12/2017 shows AV sequential pacing 01/12/2016 [...] mg tablet T (more content not included)... [facility] 03-15-2022 Note Pt feels well does h ave palpitations but not often Review of Systems Cardiovascular: Positive for palpitations. [facility] 09-13-2021 Note PROCEDURE: XR HIP LT 2 [...] by: JUAN JOSÉ CHENG Date: 2021-09-13 09:15 [facility] Evaluation + Plan note Future Appointments Appointment Date:11/22/2022 03:20:00 PM Scheduled Provider:Tom THOMPSON MD Location:[facility] Appointment Type: Procedure 30 General [facility] + Plan note Future Appointments Appointment Date:12/05/2022 02:40:00 PM Scheduled Provider:Tom THOMPSON MD Location:[facility] Appointment Type: Established 15 General [facility] Evaluation note No assessment inform ation available [facility] Work Phone: Evaluation note Diagnosis Atrial fibrillation, unspecified type (HCC)- Primary documented in this encounter [facility]* Diagnosis Atrial fibrillation, unspecified type (HCC)- [facility] Diagnosis Atrial fibrillation, unspecified type (HCC)- Primary documented in this encounter [facility] Narrative No data available for this section [facility] Discharge instructions No data available for this section [facility] Progress note No data available for this [...] and content) DATE CREATED AUTHOR 11/28/2018 [email or web address] [facility] DATE CREATED AUTHOR AUTHOR'S ORGANIZ ATION 09/01/2021 [facility] DATE CREATED AUTHOR AUTHOR'S ORGANIZ ATION 08/25/2022 [facility] DATE CREATED AUTHOR AUTHOR'S ORGANIZ ATION 11/01/2022 [facility] DATE CREATED AUTHOR AUTHOR'S ORGANIZ ATION 12/06/2022 [facility] DATE CREATED AUTHOR AUTHOR'S ORGANIZ ATION 03/03/2023 [facility] DATE CREATED AUTHOR AUTHOR'S ORGANIZ ATION 03/09/2023 [facility] DATE CREATED AUTHOR AUTHOR'S ORGANIZ ATION 07/21/2023 [facility] DATE CREATED AUTHOR AUTHOR'S ORGANIZ ATION 07/30/2023 [facility] DATE CREATED AUTHOR AUTHOR'S ORGANIZ ATION 08/25/2023 [facility] Patient Care team informatio n (unrecognized section and content) Team Status: Inactive Member Role Status Dates Colette Méndez MD Attending Provider Active 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 Specialty Start Date End Date Colette Méndez MD [facility] [place] [id number] PCP - General 07/22/12 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 Specialty Start Date End Date Colette Méndez MD [address] [place] [id number] PCP - General 07/22/12 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 Specialty Start Date End Date Colette Méndez MD [address] [place] [id number] PCP - General 07/22/12 Goals (unrecognized section and content) Goals may be documented in a n alternate section Reason for Visit (unrecogniz ed section and content) Specialty Diagnoses / Procedures Referred By Contac t Referred To Contact Pharmacy Diagnoses Atrial fibrillation (HCC) Colette Méndez MD [address] [place] [address] [facility] [address] [place] [address] Referral ID Status Reason Start Date Expiration Date V isits Requested Visits Authorized [id number] Authorized 03/22/2023 03/22/2024 99 99 Referral ID Status Reason Start Date Expiration Date V isits Requested Visits Authorized [id number] Pending Review 03/22/2023 03/22/2024 99 99 FOR [...] BE BASED ON THE PRIMARY CLINICAL RECORDS. [facility]. provides no warranty or guarantee of the accuracy or completeness of information in this document.
[2023-08-26 21:52] LABS: Glucometer 111 mg/dL (74-106)
[2023-08-27] VITALS (8 sets, daily range): BP systolic 96–156; BP diastolic 53–61; PULSE 60–64; TEMP 36.6–36.9; O2SAT 90–94
--- NOTE | 2023-08-27 | VEIN_ITS ---
The [place] [address] Patient Name: ASTON ZULUAGA MRN: [id number] date: 1935 Sex: F Assigned Patient Location: [place] Current Patient Location: [place] Accession/Order Number: [id number] Exam Date: 08/27/2023 12:45 Report Date: 08/28/2023 15:08 At the request of: BRANDO TSANG Procedure: VC SEGMENTAL PRESSURES EXAM: VASC DOPPLER COMPLETE SEGMENTAL PRESSURES EXTREMITY LOWER HISTORY: [Left lower extremity ulceration COMPARISON: None. FINDINGS: Segmental pressures presented as follows (right, left) in mmHg. 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
[2023-08-27] MEDS: OXYCODONE HCL/ACETAMINOPHEN 5MG/325MG 2 TAB PO (00:41)
[2023-08-27] MEDS: CLINDAMYCIN PHOSPHATE/D5W 600 MG/50 ML PIGGYBACK 100 MG IV ×5 (00:42→23:01)
[2023-08-27] MEDS: 0.9 % SODIUM CHLORIDE 1,000 ML 100 ML IV ×3 (00:43→14:59)
[2023-08-27] MEDS: ONDANSETRON PF 4 MG/2 ML VIAL IV (00:52)
[2023-08-27 05:08] LABS: Basophils Absolute Auto 0.1 10^3/uL (0.0-0.1); Basophils Percent Auto 0.7 % (0.2-2.0); Eosinophils Absolute Auto 1.4 10^3/uL (0.0-0.7); Eosinophils Percent Auto 11.2 % (0.9-7.0); Hematocrit 30.5 % (36.0-48.0); Hemoglobin 8.8 g/dL (12.0-16.0); Immature Granulocytes Abs Auto 0.21 10^3/uL (0.00-0.03); Immature Granulocytes Pct Auto 1.7 % (0.0-0.5); Lymphocytes Absolute Auto 4.8 10^3/uL (1.2-3.8); Lymphocytes Percent Auto 39.1 % (20.5-60.0); Mean Corpuscular HGB Conc 28.9 g/dL (29.9-35.2); Mean Corpuscular Volume 100.7 fL (81.0-99.0); Monocytes Absolute Auto 1.1 10^3/uL (0.3-0.8); Monocytes Percent Auto 9.2 % (1.7-12.0); Neutrophils Absolute Auto 4.7 10^3/uL (1.4-6.5); Neutrophils Percent Auto 38.1 % (43.0-75.0); Platelet Count 300 10^3/uL (150-450); Red Blood Count 3.03 10^6/uL (4.20-5.40); Red Cell Distribution Width 17.7 % (11.0-15.0); White Blood Count 12.2 10^3/uL (4.0-11.0)
[2023-08-27 05:32] LABS: Alanine Aminotransferase 15 U/L (14-59); Albumin Globulin Ratio 0.5; Albumin Level 2.1 g/dL (3.4-5.0); Alkaline Phosphatase 96 U/L (46-116); Anion Gap 13.7; Aspartate Amino Transferase 20 U/L (15-37); BUN Creatinine Ratio 25.4; Bilirubin Total 0.3 mg/dL (0.2-1.0); Calcium 8.4 mg/dL (8.5-10.1); Carbon Dioxide 23.1 mmol/L (21.0-32.0); Chloride 109 mmol/L (98-107); Estimated GFR (African America 27 (>=60); Estimated GFR (Non-African Ame 22 (>=60); Glucose 83 mg/dL (74-106); Potassium 5.8 mmol/L (3.5-5.1); Sodium 140 mmol/L (136-145); Total Protein 6.1 g/dL (6.4-8.2)
[2023-08-27] MEDS: DOXYCYCLINE HYCLATE 100 MG in 0.9 % SODIUM CHLORIDE 100 ML IV (06:12)
[2023-08-27 07:38] LABS: Glucometer 96 mg/dL (74-106)
[2023-08-27 07:52] LABS: Erythrocyte Sedimentation Rate 104 mm/hr (<=30)
[2023-08-27 07:55] LABS: C Reactive Protein 1.56 mg/dL (<=0.50)
--- NOTE | 2023-08-27 08:03 | CA_ITS ---
Patient Name: ASTON ZULUAGA MR#: [id number] : 1935 Exam Date: 08/27/2023 Ordering Doctor: DR COLETTE MÉNDEZ . ECHOCARDIOGRAM REPORT PROCEDURE: CA ECHO DOPPLER COMPLETE INDICATIONS: New loud murmur COMPARISON: None. DESCRIPTION: COMPLETE ECHOCARDIOGRAM Real-time transthoracic echocardiography with 2D, M-mode, spectral and color flow Doppler performed. QUALITY: Technical quality was good. LEFT VENTRICLE: Normal chamber size. Thickened septal wall. Moderate concentric hypertrophy. Global left ventricular systolic function is normal. LV EF: Estimated left ventricular ejection fraction is 65%. DIASTOLIC: ATRIAL SEPTUM: LEFT ATRIUM: Severe dilatation. RIGHT ATRIUM: Severe dilatation. RIGHT VENTRICLE: Normal chamber size. Normal right ventricular systolic function. Pacer wire present. TRICUSPID VALVE: Normal mobility and thickness. No stenosis with mild to moderate regurgitation. Severe pulmonary hypertension. RVSP 75 mmHg MITRAL VALVE: Mildly thickened with normal mobility. No evidence of mitral valve stenosis. There is no mitral annular calcification. Moderate mitral regurgitation. AORTIC VALVE: Normal trileaflet appearance. Moderately calcified aortic valve. Moderately diminished mobility. Doppler velocity suggest moderate aortic valve stenosis. DVI 0.3, DIANA 1.0 cm2, Vmax 2.95 m/s, Mean gradient 18 mmHg. Mild aortic regurgitation. AORTIC ROOT: Normal diameter and appearance. PULMONIC VALVE: Normal thickness and mobility. No stenosis. Trivial regurgitation. PERICARDIUM: No evidence of pericardial effusion. IVC: Mild dilatation. Measuring 2.2 cm with no collapse. PLEURA: CONCLUSION: 1. Moderate concentric left ventricular hypertrophy with normal systolic function. LVEF is estimated at 65%. 2. Normal right ventricular size and systolic function. 3. Moderate aortic valve stenosis with mild regurgitation. 4. Moderate mitral regurgitation. 5. Mild to moderate tricuspid regurgitation. 6. Severe biatrial dilatation. 7. Severely elevated right-sided pressures. RVSP is 75 mmHg. Adult Echocardiography Procedure Report Left Ventricle LVEDD (3.7 - 5.6 cm): 4.57 cm LVESD (2.2 - 4.0 cm): 3.05 cm LVIVS thickness (0.6 - 1.2 cm): 1.56 cm LVPW thickness (0.5 - 1.0 cm): 1.19 cm e': 0.09 m/s E - e': 12.61 LVOT Max Gradient: 3.58 mm[Hg] LVOT Area (cm2): 0.95 m/s Peak Velocity (LVOT): 0.95 m/s Mean Velocity (LVOT): 0.70 m/s LVOT Diameter 1.96 cm Left Ventricular Ejection Fraction: 65 % Left Atrium LA Volume Index (2D A2C): 80.75 ml/m2 Left Atrium Systolic Dimension: 4.59 cm Mitral Valve MV E to A Ratio: 4.27 Mitral Valve A-Wave Peak Velocity: 0.27 m/s Mitral Valve E-Wave Peak Velocity: 1.17 m/s Right Ventricle RV Internal Diastolic Dimension: 3.17 cm Aorta AO Root Diam: 3.33 cm Ascending Ao Diam: 2.71 cm Aortic Valve AoV Area (Peak Pardeep): 1.04 cm2, 0.86 cm2 AoV Area (VTI): 1.09 cm2, 0.98 cm2 Deceleration [place]: 1.55 m/s2 Pressure Half-Time: 575.61 ms Peak Velocity(Antegrade Flow): 2.31 m/s, 2.36 m/s, 2.95 m/s Peak Gradient(Antegrade Flow): 44.04 mm[Hg], 21.29 mm[Hg], 22.36 mm[Hg], 34.85 mm[Hg] Mean Velocity(Antegrade Flow): 1.93 m/s, 1.69 m/s, 1.72 m/s, 2.00 m/s Mean Gradient(Antegrade Flow): 18.56 mm[Hg], 12.66 mm[Hg], 13.04 mm[Hg], 18.23 mm[Hg] Velocity Time Integral: 68.24 cm, 54.65 cm, 55.09 cm, 67.95 cm Tricuspid Valve Peak Velocity (Regurgitant Flow): 3.56 m/s, 3.01 m/s, 3.88 m/s Pulmonic Valve Peak Velocity: 0.96 m/s Peak Gradient: 4.10 mm[Hg], 3.27 mm[Hg] Right Atrium Right Atrium Systolic Pressure: 60.48 ml, 60.48 ml Dictated by: Jacob Laurent M.D. on 08/27/2023 at 19:01 Approved by: Jacob Laurent M.D. on 08/27/2023 at 19:09
--- NOTE | 2023-08-27 08:04 | P.HP_ITS ---
HPI H&P: HPI History of Present Illness Chief complaint: LOWER EXTREMITY PAIN Left Foot Wound Narrative: Patient has been cared for at the rehab facility after hip fracture presented to the emergency room with increasing left foot pain. In ER found to have significant cellulitis with progression of her previous wounds. Leukocytosis. Patient was admitted for failed outpatient treatment of foot ulcers. I saw patient up on the medical surgical floor, she was resting comfortably in bed. No specific complaints other than pain in the foot of course. No chest pain, no shortness of breath no abdominal discomfort. Opioid HPI Opioid Management Most Recent Opioid Data: Last Pain Scale 0 08/27/23 02:14 Last Pain Intensity 2 01/16/23 13:23 Last Pain Assessment 08/27/23 06:00 Last ED Pain Assessment 08/26/23 16:25 Last MAR Pain Assessment 08/27/23 02:14 Last ORT Total Score 0 08/26/23 20:47 Last ORT Risk Category Low Risk 08/26/23 20:47 Review of Systems ROS Status of ROS 10 or more systems reviewed and unremark able except as noted in history and below [facility] Medical History (Updated 08/26/23 @ 18:31 by REMINGTON Townsend) Aortic stenosis ?I35.0 - Nonrheumatic aortic (valve) stenosis (ICD-10) Atrial flutter ?I48.92 - Unspecified atrial flutter (ICD-10) Atrial fibrillation ?I48.91 - Unspecified atrial fibrillation (ICD-10) Hypoxia ?R09.02 - Hypoxemia (ICD-10) Supratherapeutic INR ?R79.1 - Abnormal coagulation profile (ICD-10) Sepsis ?A41.9 - Sepsis, unspecified organism (ICD-10) CKD (chronic kidney disease) ?N18.9 - Chronic kidney disease, unspecified (ICD-10) Community acquired pneumonia ?J18.9 - Pneumonia, unspecified organism (ICD-10) Congestive heart failure (Unknown) ?I50.9 - Heart failure, unspecified (ICD-10) Acute viral syndrome ?B34.9 - Viral infection, unspecified (ICD-10) Social History Smoking status: Never smoker Highest level of school completed/degree received: 10th grade Meds Home Medications and Allergies Home Medications ?Medication ?Instructions ?Recorded ?Confirmed ?Type acetaminophen 650 mg 650 mg PO Q8H PRN pain #20 tabs 01/07/23 08/26/23 Rx tablet,extended release (Tylenol 8 Hour) alendronate 70 mg tablet 70 mg PO QWEEK 01/07/23 08/26/23 History amiodarone 200 mg tablet 200 mg PO Q24H 01/07/23 08/26/23 History atorvastatin 40 mg tablet 40 mg PO Q24H 01/07/23 08/26/23 History escitalopram oxalate 10 mg tablet 10 mg PO Q24H 01/07/23 08/26/23 History ferrous sulfate 325 mg (65 mg 325 mg PO Q12H 01/07/23 08/26/23 History iron) tablet furosemide 20 mg tablet 20 mg PO Q24H 01/07/23 08/26/23 History levothyroxine 25 mcg tablet 25 mcg PO Q24H 01/07/23 08/26/23 History liothyronine 5 mcg tablet 5 mcg PO Q24H 01/07/23 08/26/23 History memantine 28 mg capsule 28 mg PO Q24H 01/07/23 08/26/23 History sprinkle,extended release 24hr montelukast 10 mg tablet 10 mg PO Q24H 01/07/23 08/26/23 History olanzapine 2.5 mg tablet 2.5 mg PO .QHS 01/07/23 08/26/23 History pantoprazole 40 mg tablet,delayed 40 mg PO Q12H 01/07/23 08/26/23 History release metoprolol tartrate 25 mg tablet 12.5 mg (1/2 x 25 mg) PO BID #30 01/22/23 08/26/23 Rx tabs doxycycline monohydrate 100 mg 100 mg PO Q12H 08/26/23 08/26/23 History capsule heparin (porcine) 5,000 unit/mL 5,000 unit subcut Q8H 08/26/23 08/26/23 History injection solution oxycodone 5 mg tablet 2.5 mg PO Q4H 08/26/23 08/26/23 History Allergies Allergy/AdvReac Type Severity Reaction Status Date / Time penicillin G Allergy Intermediate Verified 01/14/23 20:15 Sulfa (Sulfonamide Allergy Intermediate Verified 01/14/23 20:15 Antibiotics) Exam Constitutional Vital Signs, click to edit/add: Last Vital Signs Temp 97.8 F 08/27/23 04:26 Pulse 60 08/27/23 04:26 Resp 18 08/27/23 04:26 BP 101/61 08/27/23 04:26 Pulse Ox 90 L 08/27/23 04:26 O2 Del Method Room Air 08/27/23 04:26 O2 Flow Rate 2 08/26/23 19:02 Documenting provider has reviewed patient's vital signs: yes Common normals: no apparent distress Chest Common normals: inspection of chest normal Respiratory Common normals: normal respiratory effort, no retractions and clear to auscu ltation bilaterally Cardio Common normals: regular rate and regular rhythm; murmurs detected Heart sounds: murmur (5/6) systolic GI Common normals: Normal to inspection, nondistended, normoactive bowel sounds present Extremity Common normals: abnormal to inspection (Small ulcer areas on her left foot. With surrounding erythema.) Results Labs Labs: Short CBC 08/26/23 08/27/23 Range/Units 15:21 04:50 WBC 13.8 H 12.2 H (4.0-11.0) 10^3/uL Hgb 10.5 L 8.8 L (12.0-16.0) g/dL Hct 35.9 L 30.5 L (36.0-48.0) % Plt Count 334 300 (150-450) 10^3/uL BMP 08/26/23 08/27/23 15:21 04:50 Sodium 138 140 Potassium 5.4 H 5.8 H Chloride 106 109 H Carbon Dioxide 23.4 23.1 BUN 57.0 H 53.0 H Creatinine 2.33 H 2.09 H Glucose 126 H 83 Calcium 9.0 8.4 L Liver Function 08/26/23 08/27/23 Range/Units 15:21 04:50 Total Bilirubin 0.3 0.3 (0.2-1.0) mg/dL AST 22 20 (15-37) U/L ALT 20 15 (14-59) U/L Alkaline Phosphatase 120 H 96 (46-116) U/L Albumin 2.7 L 2.1 L (3.4-5.0) g/dL ABG ABG results: 08/26/23 15:21 VBG pH 7.443 H VBG pCO2 24.5 L Assessment and Plan Assessment and Plan (1) Wound of left foot: Plan Findings on admission: Leukocytosis, hyperkalemia acute kidney injury (baseline creatinine right around 2 when she is healthy, was 2.33 on admission so 133% above baseline), secondary to left lower extremity cellulitis with ulcer rations. Previously debrided. This is failed outpatient treatment as she has been treated at the half-way. Consultation to podiatry. Adjust IV antibiotics to cover Pseudomonas in addition to MRSA. Blood cultures pending. Acute kidney injury on top of chronic kidney disease stage III-as above 133% above baseline-is improved this morning back to baseline so we we will decrease IV fluids. Hold diuretics. Leukocytosis secondary to above-improved this morning, continue to monitor Severe protein calorie malnutrition-Ensure plus, Claudio, Pro-Stat. History of aortic stenosis but very loud murmur today. Not had an echocardiogram since January. And that showed more mild changes. Will repeat echo today. Pulmonary hypertension-no dyspnea-stable at this point, need to maintain systolic blood pressure on the low side. Iron deficiency anemia on top of anemia of chronic kidney disease-Down 1.7 g today, check occult blood she does have a history of GI bleed so we will start patient on Protonix Hyperkalemia-deteriorated this morning despite improvement in BUN and creatinine-2 doses of Kayexalate, continue to track and trend Dementia-likely to deteriorate while she is inpatient-continue to monitor with maintaining medications History of atrial fibrillation-now with pacemaker placed, maintain cardiac medications Depression-continue with current medications Hypothyroidism-continue with current medications Admission status: Severe foot ulceration, likely surgical debridement, plan per podiatry, IV antibiotics with failed outpatient treatment. Medically necessary treatment will span 2 midnights. Inpatient status.
[2023-08-27 10:53] LABS: Glucometer 90 mg/dL (74-106)
[2023-08-27] MEDS: JUVEN PACKET 1 PACKET PO ×2 (11:01→20:33)
[2023-08-27] MEDS: PROSTAT 15 GM PROTEIN/100 CAL 30 ML LIQUID PACKET PO ×2 (11:01→20:33)
[2023-08-27] MEDS: ENSURE HP 237 ML LIQUID PO ×2 (11:02→20:33)
[2023-08-27] MEDS: SODIUM POLYSTYRENE SULFON 15 GM/60 ML ORAL.SUSP KAYEXALATE PO ×2 (11:02→15:25)
[2023-08-27] MEDS: PANTOPRAZOLE SODIUM 40 MG VIAL IV (11:02)
[2023-08-27] MEDS: CEFTAZIDIME 2,000 MG in 0.9 % SODIUM CHLORIDE 100 ML 200 MG IV (12:07)
[2023-08-27] MEDS: SODIUM HYPOCHLORITE HALF STRENGTH (0.25%) 473 ML BOTTLE 30 ML TOPICAL (12:14)
--- NOTE | 2023-08-27 12:18 | P.PODCN_ITS ---
[facility] - Podiatry Data of Consult Patient: new to practice Consult date: 08/27/23 Requesting physician: Chase Nolan MD Primary care provider: Chase Nolan MD Consult Narrative Reason for consult: Multiple pressure ulcers left foot, cellulitis left lower extremity Narrative: Patient is a pleasant 87-year-old female with PMH A-fib, CAD, T2DM controlled, dementia presented to [facility] from residential facility secondary to few days history of increased pain in the left foot. She suffered a fall approximately 5 weeks ago with a left hip fracture which was treated surgically and subsequently placed in skilled rehab. She was living at home and walking with a walker prior. Daughter is present during exam and states that the wounds began approximately 4 weeks ago after the arrived to the [facility]. Daughter states she believes that they have been nonpainful for her up to this point. Denies noticing any drainage. Denies any acute inciting trauma. Patient denied any other lower extremity complaints and denied any constitutional symptoms at time of visit. cc:: CC: Chase Nolan MD [facility] Medical History (Updated 08/27/23 @ 12:26 by Tim Guerrero DPM) Aortic stenosis ?I35.0 - Nonrheumatic aortic (valve) stenosis (ICD-10) Atrial flutter ?I48.92 - Unspecified atrial flutter (ICD-10) Atrial fibrillation ?I48.91 - Unspecified atrial fibrillation (ICD-10) Hypoxia ?R09.02 - Hypoxemia (ICD-10) Supratherapeutic INR ?R79.1 - Abnormal coagulation profile (ICD-10) Sepsis ?A41.9 - Sepsis, unspecified organism (ICD-10) CKD (chronic kidney disease) ?N18.9 - Chronic kidney disease, unspecified (ICD-10) Community acquired pneumonia ?J18.9 - Pneumonia, unspecified organism (ICD-10) Congestive heart failure (Unknown) ?I50.9 - Heart failure, unspecified (ICD-10) Acute viral syndrome ?B34.9 - Viral infection, unspecified (ICD-10) Social History Smoking status: Never smoker Highest level of school completed/degree received: 10th grade Exam Narrative Exam Narrative: Vascular: DP and PT pulses nonpalpable, upon Doppler PT is monophasic and DP was inaudible, perforating peroneal was monophasic. CFT is intact to digits. Skin temperature is warm and symmetric. No evidence of cyanosis, erythema less than 1 cm surrounding the dorsal midfoot ulcer. No edema or ecchymosis. Neuro: Light touch and gross sensation intact. Protective sensation appears intact. Derm: Dry stable eschar to the dorsum of left foot with mild surrounding erythema less than 1 cm. No active drainage fluctuance crepitus or bogginess. Deep tissue injury with soft serous bulla to the lateral midfoot and posterior heel of left foot, unstageable with no signs of acute infection. MSK: No gross deformity. Palpatory tenderness to the above described ulcerations. Compartments are soft and compressible, no pain with calf or thigh compression. Constitutional Vital Signs, click to edit/add: Last Vital Signs Temp 98.2 F 08/27/23 07:19 Pulse 64 08/27/23 07:19 Resp 12 08/27/23 07:19 BP 96/53 08/27/23 07:19 Pulse Ox 91 L 08/27/23 10:23 O2 Del Method Room Air 08/27/23 10:23 O2 Flow Rate 2 08/26/23 19:02 Assessment and Plan Assessment and Plan (1) Wound of left foot: Assessment and Plan: Patient examined and evaluated. All findings discussed with patient and her daughter who is POA. All questions answered to their satisfaction. Physical exam and x-ray findings discussed with patient and her daughter. Pertinent labs and imaging reviewed. Leukocytosis at 12,000, downtrending. ESR is elevated with only mild elevation in CRP suggesting likely cellulitis. No cortical erosive changes or soft tissue emphysema visible on x-ray. Left foot ulcers to be dressed with Dakin's moist to dry dressings, ABDs and Kerlix with offloading boots, dressings to be changed every other day. No purulence or signs of abscess, eschars appear stable with mild cellulitis to the dorsal midfoot ulcer. Unstageable DTI to the lateral midfoot and heel of the left foot, stable. Currently on IV the Invans and clinda. Discussed case with vascular surgery, Dr. Snow who is in agreement with consulting while she is in-house. Likely will need further workup in the outpatient setting. PVRs with TRINI and TBI ordered. No plans for acute surgical intervention at this time, will continue to follow. Rest per primary please call with questions or concerns. (2) Peripheral vascular disease: Assessment and Plan: Patient with nonpalpable popliteal, monophasic PT and perforating peroneal, inaudible DP to LLE upon Doppler. Arterial ultrasound demonstrated no acute occlusions, triphasic flow at the iliac region however monophasic from the popliteal down. Extremities are symmetrically warm and there is no signs of cyanosis or acute critical limb ischemia, likely more chronic in nature. Discussed case with vascular surgery Dr. Snow who is in agreement with seeing the patient as consult while in house. Will order PVR with TRINI and TBI as well. (3) Unstageable pressure ulcer of left foot:
--- NOTE | 2023-08-27 13:22 | SWNOTE1 ---
Radiology in room. SW came in and spoke to daughter, pt answered questions as well. Pt was at [facility] and just transitioned to retirement private pay. They would like for pt to return to [facility] skilled. Pt is a precert. SW sent over referral to [facility].
[2023-08-27] MEDS: ACETAMINOPHEN 500 MG TABLET 1000 MG PO ×2 (14:52→20:33)
[2023-08-27 16:18] LABS: Glucometer 123 mg/dL (74-106)
--- NOTE | 2023-08-27 16:23 | SWNOTE1 ---
Important Message from [employer] reviewed and discussed with patient. Pt. verbalized understanding and signed the form. Original given to patient and copy placed in patient?s chart. Pt's daughter sgned for pt, pt was alright with this.
--- NOTE | 2023-08-27 16:28 | SWNOTE1 ---
PT attempted to see pt 3x today but was nto able to complete eval due to various reasons. SW spoke to Kaykay in OT and she was seeing pt now. SW to get [place] therapy notes tomorrow morning for precert.
[2023-08-28] VITALS (10 sets, daily range): BP systolic 93–146; BP diastolic 35–63; PULSE 60–71; TEMP 36.4–36.9; O2SAT 90–96
[2023-08-28] MEDS: CLINDAMYCIN PHOSPHATE/D5W 600 MG/50 ML PIGGYBACK 100 MG IV ×4 (05:11→23:36)
[2023-08-28 05:55] LABS: Basophils Absolute Auto 0.1 10^3/uL (0.0-0.1); Basophils Percent Auto 0.6 % (0.2-2.0); Eosinophils Absolute Auto 1.4 10^3/uL (0.0-0.7); Hematocrit 32.2 % (36.0-48.0); Hemoglobin 9.1 g/dL (12.0-16.0); Immature Granulocytes Abs Auto 0.15 10^3/uL (0.00-0.03); Immature Granulocytes Pct Auto 1.2 % (0.0-0.5); Lymphocytes Absolute Auto 3.9 10^3/uL (1.2-3.8); Mean Corpuscular HGB Conc 28.3 g/dL (29.9-35.2); Mean Corpuscular Hemoglobin 29.6 pg (26.7-34.0); Mean Corpuscular Volume 104.9 fL (81.0-99.0); Mean Platelet Volume 11.1 fL (9.5-13.5); Monocytes Absolute Auto 1.4 10^3/uL (0.3-0.8); Monocytes Percent Auto 11.5 % (1.7-12.0); Neutrophils Absolute Auto 5.5 10^3/uL (1.4-6.5); Neutrophils Percent Auto 44.7 % (43.0-75.0); Platelet Count 257 10^3/uL (150-450); Red Blood Count 3.07 10^6/uL (4.20-5.40); Red Cell Distribution Width 17.8 % (11.0-15.0); White Blood Count 12.4 10^3/uL (4.0-11.0)
[2023-08-28 06:23] LABS: Alanine Aminotransferase 17 U/L (14-59); Albumin Globulin Ratio 0.5; Albumin Level 2.1 g/dL (3.4-5.0); Alkaline Phosphatase 97 U/L (46-116); Anion Gap 14.9; Aspartate Amino Transferase 21 U/L (15-37); BUN Creatinine Ratio 23.6; Bilirubin Total 0.3 mg/dL (0.2-1.0); C Reactive Protein 1.95 mg/dL (<=0.50); Calcium 8.1 mg/dL (8.5-10.1); Carbon Dioxide 22.9 mmol/L (21.0-32.0); Chloride 109 mmol/L (98-107); Estimated GFR (African America 26 (>=60); Estimated GFR (Non-African Ame 22 (>=60); Globulin 4.1 g/dL; Glucose 93 mg/dL (74-106); Potassium 4.8 mmol/L (3.5-5.1); Sodium 142 mmol/L (136-145); Total Protein 6.2 g/dL (6.4-8.2)
--- NOTE | 2023-08-28 06:38 | P.PN_ITS ---
Progress Note: Subjective Subjective Interval history: No new complaints today. Still has some pain in foot. Exam Constitutional Vital Signs, click to edit/add: Last Vital Signs Temp 97.7 F 08/28/23 04:00 Pulse 63 08/28/23 04:00 Resp 18 08/28/23 04:00 BP 146/54 H 08/28/23 04:00 Pulse Ox 92 L 08/28/23 04:00 O2 Del Method Room Air 08/28/23 04:00 O2 Flow Rate 2 08/26/23 19:02 Documenting provider has reviewed patient's vital signs: yes Common normals: no apparent distress Chest Common normals: inspection of chest normal Respiratory Common normals: normal respiratory effort, no retractions and clear to auscultation bilaterally Cardio Common normals: regular rate and regular rhythm; murmurs detected Heart sounds: murmur (5/6) systolic GI Common normals: Normal to inspection, nondistended, normoactive bowel sounds present Extremity Common normals: abnormal to inspection (Small ulcer areas on her left foot. With surrounding erythema.) Progress Note: Objective Labs Labs: Short CBC 08/28/23 Range/Units 05:21 WBC 12.4 H (4.0-11.0) 10^3/uL Hgb 9.1 L (12.0-16.0) g/dL Hct 32.2 L (36.0-48.0) % Plt Count 257 (150-450) 10^3/uL BMP 08/28/23 05:21 Sodium 142 Potassium 4.8 Chloride 109 H Carbon Dioxide 22.9 BUN 51.0 H Creatinine 2.16 H Glucose 93 Calcium 8.1 L Liver Function 08/28/23 Range/Units 05:21 Total Bilirubin 0.3 (0.2-1.0) mg/dL AST 21 (15-37) U/L ALT 17 (14-59) U/L Alkaline Phosphatase 97 (46-116) U/L Albumin 2.1 L (3.4-5.0) g/dL Progress Note: A&P Assessment and Plan (1) Wound of left foot: (2) Peripheral vascular disease: (3) Unstageable pressure ulcer of left foot: Plan Findings on admission: Leukocytosis, hyperkalemia acute kidney injury (baseline creatinine right around 2 when she is healthy, was 2.33 on admission so 133% above baseline), secondary to left lower extremity cellulitis with ulcer rations. See plan from podiatry. Continue with IV antibiotics. White blood cell count still slightly elevated. Acute kidney injury on top of chronic kidney disease stage III-as above 133% above baseline-elevated slightly today. Continue to monitor Leukocytosis secondary to above-elevated today. Continue to monitor Severe protein calorie malnutrition-Ensure plus, Claudio, Pro-Stat. History of aortic stenosis but very loud murmur today. Progression of aortic stenosis from mild to moderate. Consult to cardiology Pulmonary hypertension-consult to cardiology, add Imdur Iron deficiency anemia on top of anemia of chronic kidney disease-hemoglobin improved today, continue to monitor Hyperkalemia-resolved Dementia-likely to deteriorate while she is inpatient-continue to monitor with maintaining medications History of atrial fibrillation-now with pacemaker placed, maintain cardiac medications Depression-continue with current medications Hypothyroidism-continue with current medications Admission status: Severe foot ulceration, likely surgical debridement, plan per podiatry, IV antibiotics with failed outpatient treatment. Medically necessary treatment will span 2 midnights. Inpatient status. ? Urinary Catheter Management Urinary Catheter Management Urethral: Cath placed during this visit: no
[2023-08-28] MEDS: JUVEN PACKET 1 PACKET PO ×2 (08:21→21:17)
[2023-08-28] MEDS: PROSTAT 15 GM PROTEIN/100 CAL 30 ML LIQUID PACKET PO ×2 (08:21→21:17)
[2023-08-28] MEDS: OXYCODONE HCL/ACETAMINOPHEN 5MG/325MG 1 TAB PO ×2 (08:21→14:31)
[2023-08-28] MEDS: ISOSORBIDE MONONITRATE 30 MG TAB.ER.24H PO (08:21)
[2023-08-28] MEDS: ENSURE HP 237 ML LIQUID PO ×2 (08:22→21:17)
[2023-08-28] MEDS: 0.9 % SODIUM CHLORIDE 1,000 ML 100 ML IV (08:23)
[2023-08-28] MEDS: CEFTAZIDIME 2,000 MG in 0.9 % SODIUM CHLORIDE 100 ML 200 MG IV (08:27)
[2023-08-28] MEDS: PANTOPRAZOLE SODIUM 40 MG VIAL IV (08:52)
--- NOTE | 2023-08-28 10:52 | PT.DAILY ---
Physical Therapy Daily Note PT Daily Note/Assess Start: 08/28/23 10:44 Freq: Status: Active Protocol: Document 08/28/23 10:44 TRACI (Rec: 08/28/23 10:52 TRACI [id number]) Physical Therapy Daily Note/Assessment Time In/Time Out Time In 10:27 Time Out 10:40 Pain In Pain N/A Subjective Subjective Pt supine upon arrival. Agrees to sit EOB but apprehensive about standing. Therapeutic Exercise Time Therapeutic Exercise Minutes (minutes) 3 Therapeutic Exercise Units 0 Therapeutic Exercise Treatment Therapeutic Exercise Treatment Pt completes seated AP (R only ), LAQ and marches 10x ea - while sitting EOB unsupported. Therapeutic Activity Time Therapeutic Activity Minutes (minutes) 10 Therapeutic Activity Units 1 Therapeutic Activity Treatment Bed Mobility Ability Moderate Assist,2 Person Assist Therapeutic Activity Comments Supine>sit ModA to advance LEs and upper body to sit EOB. Pt sits EOB 10 min to perform oral hygiene. Pt performs LE ex while sitting EOB unsupported with min posterior lean - able to self correct with vc. Pt denies wanting to stand at this time. Pt is assisted back to supine with ModA+2. Total assist of 2 to scoot her up in bed. pt remains supine with call light within reach and needs met. Total Physical Therapy Time Total Therapy Minutes 13 Total Physical Therapy Units 1 Summary Daily Note Summary Fair- static sitting balance at EOB unsupported. Would benefit from SNF to regain strength.
--- NOTE | 2023-08-28 12:02 | SWNOTE1 ---
SW sent over PT/OT, progress note, and labs for precert. UYEN spoke Ava at [facility] and they will start precert.
--- NOTE | 2023-08-28 12:11 | PC.NURSE ---
wound nurse rounded and dressed left foot and sacrum
--- NOTE | 2023-08-28 12:25 | W.PM.WC ---
Wound Consult Note Assessment and Plan (1) Wound of left foot: (2) Peripheral vascular disease: (3) Unstageable pressure ulcer of left foot: Plan Consult: Unstageable pressure injury to sacral area. Patient has been seen by podiatry service for left foot/ankle pressure injuries. See podiatry note for details. Assisted bedside nurse with dressing change to left foot today and dakins wet to dry dressing is pulling and causing bleeding to ulcer edges, this is also causing pain to patient. Updated Dr. Tejada and Dr. Guerrero. Will change order to xeroform gauze daily using dakins for cleansing only. Patient with 100% slough covered ulcer to sacral area that is surrounded by nonblanching erythema. Pressure injury has minimal drainage. Applied medihoney gel and foam border dressing. Area measures [id number]. New underpad placed. Bedside nurse to place air mattress overlay with next turn. Recommendations: Medihoney gel to sacral ulcer daily with border foam dressing Reposition frequently Air mattress overlay Change left foot dressing to dakins to cleanse, rinse well, then cover with single layer xeroform gauze/loosely wrap with kerlix/tape. Continue foam boots. Please call [phone] with any questions or concerns. Дмитрий Alvarez, BERYLN, RN, CWON
[2023-08-29] VITALS (8 sets, daily range): BP systolic 90–142; BP diastolic 46–58; PULSE 58–61; TEMP 36.7–36.8; O2SAT 92–95
[2023-08-29 05:16] LABS: Basophils Absolute Auto 0.1 10^3/uL (0.0-0.1); Basophils Percent Auto 0.7 % (0.2-2.0); Eosinophils Percent Auto 9.6 % (0.9-7.0); Hematocrit 26.9 % (36.0-48.0); Hemoglobin 7.8 g/dL (12.0-16.0); Immature Granulocytes Abs Auto 0.09 10^3/uL (0.00-0.03); Immature Granulocytes Pct Auto 0.9 % (0.0-0.5); Lymphocytes Absolute Auto 3.9 10^3/uL (1.2-3.8); Lymphocytes Percent Auto 37.2 % (20.5-60.0); Mean Corpuscular Hemoglobin 29.1 pg (26.7-34.0); Mean Corpuscular Volume 100.4 fL (81.0-99.0); Mean Platelet Volume 11.5 fL (9.5-13.5); Monocytes Absolute Auto 1.2 10^3/uL (0.3-0.8); Monocytes Percent Auto 11.9 % (1.7-12.0); Neutrophils Absolute Auto 4.1 10^3/uL (1.4-6.5); Neutrophils Percent Auto 39.7 % (43.0-75.0); Platelet Count 251 10^3/uL (150-450); Red Blood Count 2.68 10^6/uL (4.20-5.40); Red Cell Distribution Width 17.8 % (11.0-15.0); White Blood Count 10.4 10^3/uL (4.0-11.0)
[2023-08-29 05:39] LABS: Alanine Aminotransferase 13 U/L (14-59); Albumin Globulin Ratio 0.5; Albumin Level 1.8 g/dL (3.4-5.0); Alkaline Phosphatase 81 U/L (46-116); Anion Gap 12.2; Aspartate Amino Transferase 16 U/L (15-37); Bilirubin Total 0.2 mg/dL (0.2-1.0); Carbon Dioxide 22.5 mmol/L (21.0-32.0); Chloride 112 mmol/L (98-107); Estimated GFR (African America 29 (>=60); Estimated GFR (Non-African Ame 24 (>=60); Globulin 3.7 g/dL; Glucose 90 mg/dL (74-106); Potassium 4.7 mmol/L (3.5-5.1); Sodium 142 mmol/L (136-145); Total Protein 5.5 g/dL (6.4-8.2)
[2023-08-29 05:49] LABS: C Reactive Protein 1.91 mg/dL (<=0.50)
[2023-08-29] MEDS: CLINDAMYCIN PHOSPHATE/D5W 600 MG/50 ML PIGGYBACK 100 MG IV ×3 (06:30→17:00)
[2023-08-29] MEDS: 0.9 % SODIUM CHLORIDE 1,000 ML 50 ML IV (07:37)
--- NOTE | 2023-08-29 08:13 | P.PN_ITS ---
Progress Note: Subjective Subjective Interval history: No new complaints today. Still has some pain in foot but overall is improving. Exam Constitutional Vital Signs, click to edit/add: Last Vital Signs Temp 98.0 F 08/29/23 07:43 Pulse 58 L 08/29/23 07:43 Resp 18 08/29/23 07:43 BP 133/47 L 08/29/23 07:43 Pulse Ox 94 L 08/29/23 07:43 O2 Del Method Room Air 08/29/23 07:43 O2 Flow Rate 2 08/26/23 19:02 Documenting provider has reviewed patient's vital signs: yes Common normals: no apparent distress Chest Common normals: inspection of chest normal Respiratory Common normals: normal respiratory effort, no retractions and clear to auscultation bilaterally Cardio Common normals: regular rate and regular rhythm; murmurs detected Heart sounds: murmur (5/6) systolic GI Common normals: Normal to inspection, nondistended, normoactive bowel sounds present Extremity Common normals: abnormal to inspection (Small ulcer areas on her left foot. With surrounding erythema.) Progress Note: Objective Labs Labs: Short CBC 08/29/23 Range/Units 04:40 WBC 10.4 (4.0-11.0) 10^3/uL Hgb 7.8 L (12.0-16.0) g/dL Hct 26.9 L (36.0-48.0) % Plt Count 251 (150-450) 10^3/uL BMP 08/29/23 04:40 Sodium 142 Potassium 4.7 Chloride 112 H Carbon Dioxide 22.5 BUN 54.0 H Creatinine 2.00 H Glucose 90 Calcium 8.0 L Liver Function 08/29/23 Range/Units 04:40 Total Bilirubin 0.2 (0.2-1.0) mg/dL AST 16 (15-37) U/L ALT 13 L (14-59) U/L Alkaline Phosphatase 81 (46-116) U/L Albumin 1.8 L (3.4-5.0) g/dL Progress Note: A&P Assessment and Plan (1) Wound of left foot: (2) Peripheral vascular disease: (3) Unstageable pressure ulcer of left foot: Plan Findings on admission: Leukocytosis, hyperkalemia acute kidney injury (baseline creatinine right around 2 when she is healthy, was 2.33 on admission so 133% above baseline), secondary to left lower extremity cellulitis with ulcer rations. See plan from podiatry. Continue with IV antibiotics. White blood cell count down to normal, CRP improving. Acute kidney injury on top of chronic kidney disease stage III-as above 133% above baseline-improved today. Close to baseline. Leukocytosis secondary to above-much improved today. Continue with current antibiotic therapy. Will review blood cultures later today. Severe protein calorie malnutrition-Ensure plus, Claudio, Pro-Stat. History of aortic stenosis but very loud murmur today. Progression of aortic stenosis from mild to moderate. Reviewed cardiology consult hopefully later today Pulmonary hypertension-consult to cardiology, added Imdur Iron deficiency anemia on top of anemia of chronic kidney disease-hemoglobin down today. Check occult blood Hyperkalemia-resolved Dementia-likely to deteriorate while she is inpatient-continue to monitor with maintaining medications History of atrial fibrillation-now with pacemaker placed, maintain cardiac medications Depression-continue with current medications Hypothyroidism-continue with current medications Admission status: Severe foot ulceration, likely surgical debridement, plan per podiatry, IV antibiotics with failed outpatient treatment. Medically necessary treatment will span 2 midnights. Inpatient status. Hopefully to rehab in 1 to 2 days as long as white blood cell count remained stable and no fevers ? Urinary Catheter Management Urinary Catheter Management Urethral: Cath placed during this visit: no
[2023-08-29] MEDS: JUVEN PACKET 1 PACKET PO ×2 (08:36→20:15)
[2023-08-29] MEDS: CEFTAZIDIME 2,000 MG in 0.9 % SODIUM CHLORIDE 100 ML 200 MG IV (08:36)
[2023-08-29] MEDS: ISOSORBIDE MONONITRATE 30 MG TAB.ER.24H PO (08:36)
[2023-08-29] MEDS: PROSTAT 15 GM PROTEIN/100 CAL 30 ML LIQUID PACKET PO ×2 (08:36→20:15)
[2023-08-29] MEDS: SODIUM HYPOCHLORITE HALF STRENGTH (0.25%) 473 ML BOTTLE 30 ML TOPICAL (08:36)
[2023-08-29] MEDS: ENSURE HP 237 ML LIQUID PO ×2 (08:36→20:15)
[2023-08-29] MEDS: PANTOPRAZOLE SODIUM 40 MG VIAL IV (08:38)
[2023-08-29] MEDS: OXYCODONE HCL/ACETAMINOPHEN 5MG/325MG 1 TAB PO ×2 (11:20→18:26)
--- NOTE | 2023-08-29 11:39 | SWNOTE1 ---
Precert has been started by UYEN Elder received email from [facility] notifying UYEN of start of precert!
--- NOTE | 2023-08-29 14:33 | SWNOTE1 ---
Updated PT, progress note, wound consult, labs, and vitals sent to [facility].
--- NOTE | 2023-08-29 15:37 | OT.DAILY ---
Occupational Therapy Daily Note OT Inpatient Daily Visit Note Start: 08/27/23 17:02 Freq: Status: Active Protocol: Document 08/29/23 15:30 [id number] (Rec: 08/29/23 15:37 [id number]) OT Visit Details Time In/Time Out Time In 15:00 Time Out 15:30 OT Treatment Plan Subjective Subjective I am doing good Objective Objective Pt reports pain in L foot due to wound, wrapping and wound boot in place. Pt was presented with opportunities to complete self care tasks. While seated in bed Pt was able to complete oral hygiene when provided with supplies. Demonstrates good sequence and use of supplies. Given wash cloths Pt was able to independently wash face and hair, followed by combing hair . Demonstrates good seated balance in bed when reaching outside [place]. Pt was able to manage deodorant and place under-arms for appropriate use . No pain with self-care tasks . Pt reports that she is feeling better. Pt AAOx4 and answering questions with a normal thought process. Continue OT POC. Assessment Assessment Pt tolerated treatment well. She was agreeable and cooperative with all tasks. She demonstrates good social behaviors with family visiting . OT Manager Functional Timed Codes Self-Long-Term Management minutes ( 30 minutes) Self-Long-Term Management units 2
[2023-08-30] VITALS: BP 145/57; PULSE 60; TEMP 36.5; O2SAT 93
[2023-08-30] MEDS: CLINDAMYCIN PHOSPHATE/D5W 600 MG/50 ML PIGGYBACK 100 MG IV ×3 (00:20→11:06)
[2023-08-30 04:00] VITALS: BP 149/65; PULSE 64; TEMP 36.6; O2SAT 92
[2023-08-30 05:29] LABS: Basophils Absolute Auto 0.1 10^3/uL (0.0-0.1); Basophils Percent Auto 0.9 % (0.2-2.0); Eosinophils Absolute Auto 1.1 10^3/uL (0.0-0.7); Eosinophils Percent Auto 10.3 % (0.9-7.0); Hematocrit 28.7 % (36.0-48.0); Hemoglobin 8.4 g/dL (12.0-16.0); Immature Granulocytes Abs Auto 0.08 10^3/uL (0.00-0.03); Immature Granulocytes Pct Auto 0.8 % (0.0-0.5); Lymphocytes Absolute Auto 3.7 10^3/uL (1.2-3.8); Lymphocytes Percent Auto 34.9 % (20.5-60.0); Mean Corpuscular HGB Conc 29.3 g/dL (29.9-35.2); Mean Corpuscular Hemoglobin 29.5 pg (26.7-34.0); Mean Corpuscular Volume 100.7 fL (81.0-99.0); Mean Platelet Volume 11.4 fL (9.5-13.5); Monocytes Percent Auto 9.7 % (1.7-12.0); Neutrophils Absolute Auto 4.6 10^3/uL (1.4-6.5); Neutrophils Percent Auto 43.4 % (43.0-75.0); Platelet Count 245 10^3/uL (150-450); Red Blood Count 2.85 10^6/uL (4.20-5.40); White Blood Count 10.5 10^3/uL (4.0-11.0)
[2023-08-30] MEDS: OXYCODONE HCL/ACETAMINOPHEN 5MG/325MG 1 TAB PO ×2 (05:35→16:19)
[2023-08-30 05:47] LABS: C Reactive Protein 1.41 mg/dL (<=0.50)
[2023-08-30 05:50] LABS: Alanine Aminotransferase 11 U/L (14-59); Albumin Globulin Ratio 0.5; Alkaline Phosphatase 84 U/L (46-116); Anion Gap 11.2; Aspartate Amino Transferase 16 U/L (15-37); BUN Creatinine Ratio 27.1; Bilirubin Total 0.3 mg/dL (0.2-1.0); Calcium 8.7 mg/dL (8.5-10.1); Carbon Dioxide 22.4 mmol/L (21.0-32.0); Chloride 112 mmol/L (98-107); Estimated GFR (African America 30 (>=60); Estimated GFR (Non-African Ame 25 (>=60); Globulin 3.8 g/dL; Glucose 87 mg/dL (74-106); Potassium 4.6 mmol/L (3.5-5.1); Sodium 141 mmol/L (136-145); Total Protein 5.8 g/dL (6.4-8.2)
--- NOTE | 2023-08-30 08:11 | P.PN_ITS ---
Progress Note: Subjective Subjective Interval history: Sleeping but awakens easily. No new complaints. Exam Constitutional Vital Signs, click to edit/add: Last Vital Signs Temp 97.9 F 08/30/23 04:00 Pulse 64 08/30/23 04:00 Resp 18 08/30/23 04:00 BP 149/65 H 08/30/23 04:00 Pulse Ox 92 L 08/30/23 04:00 O2 Del Method Room Air 08/30/23 04:00 O2 Flow Rate 2 08/26/23 19:02 Documenting provider has reviewed patient's vital signs: yes Common normals: no apparent distress Chest Common normals: inspection of chest normal Respiratory Common normals: normal respiratory effort, no retractions and clear to ausc ultation bilaterally Cardio Common normals: regular rate and regular rhythm; murmurs detected Heart sounds: murmur (5/6) systolic GI Common normals: Normal to inspection, nondistended, normoactive bowel sounds present Extremity Common normals: abnormal to inspection (Small ulcer areas on her left foot. With surrounding erythema.) Progress Note: Objective Labs Labs: Short CBC 08/30/23 Range/Units 05:03 WBC 10.5 (4.0-11.0) 10^3/uL Hgb 8.4 L (12.0-16.0) g/dL Hct 28.7 L (36.0-48.0) % Plt Count 245 (150-450) 10^3/uL BMP 08/30/23 05:03 Sodium 141 Potassium 4.6 Chloride 112 H Carbon Dioxide 22.4 BUN 52.0 H Creatinine 1.92 H Glucose 87 Calcium 8.7 Liver Function 08/30/23 Range/Units 05:03 Total Bilirubin 0.3 (0.2-1.0) mg/dL AST 16 (15-37) U/L ALT 11 L (14-59) U/L Alkaline Phosphatase 84 (46-116) U/L Albumin 2.0 L (3.4-5.0) g/dL Progress Note: A&P Assessment and Plan (1) Wound of left foot: (2) Peripheral vascular disease: (3) Unstageable pressure ulcer of left foot: Plan Findings on admission: Leukocytosis, hyperkalemia acute kidney injury (baseline creatinine right around 2 when she is healthy, was 2.33 on admission so 133% above baseline), secondary to left lower extremity cellulitis with ulcer rations. See plan from podiatry. Continue with IV antibiotics. White blood maintaining normal. Continue with current antibiotics. Acute kidney injury on top of chronic kidney disease stage III-improved again today, back to baseline. Leukocytosis secondary to above-resolved Severe protein calorie malnutrition-improving today. Continue with current supplementation History of aortic stenosis but very loud murmur today. Progression of aortic stenosis from mild to moderate. Reviewed cardiology consult hopefully later today Pulmonary hypertension-consult to cardiology, added Imdur-stable Iron deficiency anemia on top of anemia of chronic kidney disease-hemoglobin up today. Check occult blood Hyperkalemia-resolved Dementia-likely to deteriorate while she is inpatient-continue to monitor with maintaining medications History of atrial fibrillation-now with pacemaker placed, maintain cardiac medications L Depression-continue with current medications Hypothyroidism-continue with current medications Admission status: Severe foot ulceration, likely surgical debridement, plan per podiatry, IV antibiotics with failed outpatient treatment. Medically necessary treatment will span 2 midnights. Inpatient status. Hopefully to rehab in 1 to 2 days as long as white blood cell count remained stable and no fevers Urinary Catheter Management Urinary Catheter Management Urethral: Cath placed during this visit: no
[2023-08-30] MEDS: CEFTAZIDIME 2,000 MG in 0.9 % SODIUM CHLORIDE 100 ML 200 MG IV (08:42)
[2023-08-30] MEDS: ISOSORBIDE MONONITRATE 30 MG TAB.ER.24H PO (08:42)
[2023-08-30] MEDS: PROSTAT 15 GM PROTEIN/100 CAL 30 ML LIQUID PACKET PO (08:42)
[2023-08-30] MEDS: JUVEN PACKET 1 PACKET PO (08:42)
[2023-08-30] MEDS: 0.9 % SODIUM CHLORIDE 250 ML 10 ML IV (08:42)
[2023-08-30] MEDS: PANTOPRAZOLE SODIUM 40 MG VIAL IV (08:42)
[2023-08-30] MEDS: ENSURE HP 237 ML LIQUID PO (08:42)
[2023-08-30] MEDS: SODIUM HYPOCHLORITE HALF STRENGTH (0.25%) 473 ML BOTTLE 30 ML TOPICAL (08:43)
[2023-08-30 08:50] VITALS: BP 145/61; PULSE 66; TEMP 36.4; O2SAT 96
--- NOTE | 2023-08-30 09:37 | P.DS_ITS ---
DS: Providers Provider Date of admission: 08/27/23 07:19 Primary care physician: Chase Nolan MD Consults: 08/27/23 07:19 Consult to Podiatry Routine Consulting Provider: Mynor Tejada Reason for consultation: foot infection Has provider been notified: No Occupational Therapy Eval and Treat Routine Reason for consultation: Only if needed for Rehab Has provider been notified: No Physical Therapy Eval and Treat Routine Reason for consultation: Eval and Treat Has provider been notified: No 08/27/23 17:49 Consult to Wound Care Routine Consulting Provider: Дмитрий Alvarez Reason for consultation: coccyx Has provider been notified: No 08/28/23 06:37 Consult to Cardiology Routine Reason for consultation: pulm hypertension, valvulare heart disease Has provider been notified: No 08/29/23 12:19 Consult to Vascular Surgery Routine Consulting Provider: Maria Eugenia Snow Reason for consultation: circ Has provider been notified: No DS: Diagnosis Discharge Diagnosis (1) Wound of left foot: (2) Peripheral vascular disease: (3) Unstageable pressure ulcer of left foot: Plan Findings on admission: Leukocytosis, hyperkalemia acute kidney injury (baseline creatinine right around 2 when she is healthy, was 2.33 on admission so 133% above baseline), secondary to left lower extremity cellulitis with ulcer rations. See plan from podiatry. Improving at the time of Discharge Acute kidney injury on top of chronic kidney disease stage III-improved again today, back to baseline. Back to baseline at the time of discharge Leukocytosis secondary to above-resolved at discharge Severe protein calorie malnutrition-improving at the time of discharge History of aortic stenosis but very loud murmur today. Progression of aortic st enosis from mild to moderate. Reviewed cardiology consult hopefully later today Pulmonary hypertension-consult to cardiology, added Imdur-stable Iron deficiency anemia on top of anemia of chronic kidney disease-hemoglobin up today. Check occult blood pending Hyperkalemia-resolved Dementia-likely to deteriorate while she is inpatient-continue to monitor with maintaining medications History of atrial fibrillation-now with pacemaker placed, maintain cardiac medications Depression-continue with current medications Hypothyroidism-continue with current medications Admission status: Severe foot ulceration, likely surgical debridement, plan per podiatry, IV antibiotics with failed outpatient treatment. Medically necessary treatment will span 2 midnights. Inpatient status. Hopefully to rehab in 1 to 2 days as long as white blood cell count remained stable and no fevers DS: Summary Hospital Course Hospital Course: Patient was being treated at the correction for foot infection. Pain progressed, erythema progressed despite oral medications. He was recommended to go to the emergency room. Found of the significant progression of her cellulitis. Consultation to podiatry for wound management. No cultures were able to be obtained as she did not have any significant drainage from the wound just erythema surrounding the wound was progressing. At this improving at the time of discharge. She may need further surgical debridement but at bedside debridement was completed during the admission. White blood cell count elevated on admission has returned to normal. Her inflammation markers are also improving at the time of discharge. At this point she is medically stable for discharge back to rehab, continue with wound management. Continue with antibiotics for a month. I will continue to follow patient and nursing. Medications see list. Narcotic prescription printed Time Spent with Patient Time attestation: Total time spent providing and/or coordinating discharge services: Exam Constitutional Vital Signs, click to edit/add: Last Vital Signs Temp 97.6 F 08/30/23 08:50 Pulse 66 08/30/23 08:50 Resp 16 08/30/23 08:50 BP 145/61 H 08/30/23 08:50 Pulse Ox 96 08/30/23 08:50 O2 Del Method Room Air 08/30/23 08:50 O2 Flow Rate 2 08/26/23 19:02 Documenting provider has reviewed patient's vital signs: yes Common normals: no apparent distress Chest Common normals: inspection of chest normal Respiratory Common normals: normal respiratory effort, no retractions and clear to auscultation bilaterally Cardio Common normals: regular rate and regular rhythm; murmurs detected Heart sounds: murmur (5/6) systolic GI Common normals: Normal to inspection, nondistended, normoactive bowel sounds present Extremity Common normals: abnormal to inspection (Small ulcer areas on her left foot. With surrounding erythema.) DS: Data Data Completed and Pending Labs on day of discharge: Labs from last 24 hours 08/30/23 05:03 WBC 10.5 RBC 2.85 L Hgb 8.4 L Hct 28.7 L MCV 100.7 H MCH 29.5 MCHC 29.3 L RDW 18.0 H Plt Count 245 MPV 11.4 Neut % (Auto) 43.4 Lymph % (Auto) 34.9 Wilson % (Auto) 9.7 Eos % (Auto) 10.3 H Baso % (Auto) 0.9 Neut # (Auto) 4.6 Lymph # (Auto) 3.7 Wilson # (Auto) 1.0 H Eos # (Auto) 1.1 H Baso # (Auto) 0.1 Abs Immat Gran (auto) 0.08 H Imm/Tot Granulo (auto) 0.8 H Sodium 141 Potassium 4.6 Chloride 112 H Carbon Dioxide 22.4 Anion Gap 11.2 BUN 52.0 H Creatinine 1.92 H Est GFR ( Amer) 30 L Est GFR (Non-Af Amer) 25 L BUN/Creatinine Ratio 27.1 Glucose 87 Calcium 8.7 Total Bilirubin 0.3 AST 16 ALT 11 L Alkaline Phosphatase 84 C-Reactive Protein 1.41 H Total Protein 5.8 L Albumin 2.0 L Globulin 3.8 Albumin/Globulin Ratio 0.5 Preliminary micro results at discharge 08/26/23 15:36 - Preliminary Blood NO GROWTH AT 36-48 HOURS. FINAL TO FOLLOW. 08/26/23 15:21 Blood Culture Result 1 - Preliminary Blood NO GROWTH AT 36-48 HOURS. FINAL TO FOLLOW. Discharge Plan Discharge Disposition: Xfer SNF Condition: Good Discharge Medications: New oxycodone-acetaminophen 5-325 mg Tablet 1 tab PO Q4H PRN (Reason: Pain Scale 7-10) Qty: 180 0RF Pro-Stat Sugar Free 15 gram- 100 kcal/30 mL Liquid In Packet 1 ea PO BID Qty: 2880 11RF Claudio (with collagen) 7-7-1.5 gram Powder In Packet 1 packet PO BID Qty: 60 11RF cefdinir 300 mg capsule 600 mg PO DAILY Qty: 60 0RF clindamycin HCl 300 mg capsule 300 mg PO Q6H Qty: 120 0RF Continued alendronate 70 mg tablet 70 mg PO QWEEK Rx Instructions: ONCE A WEEK DOSING, PLEASE VERIFY WHICH DAY SHE TAKES THIS MEDICATION. LAST FILLED 11/26/22 FOR 84 DAYS SUPPLY PER FILL HX amiodarone 200 mg tablet 200 mg PO Q24H atorvastatin 40 mg tablet 40 mg PO Q24H escitalopram oxalate 10 mg tablet 10 mg PO Q24H ferrous sulfate 325 mg (65 mg iron) tablet 325 mg PO Q12H acetaminophen [Tylenol 8 Hour] 650 mg tablet extended release 650 mg PO Q8H PRN (Reason: pain) Qty: 20 0RF furosemide 20 mg tablet 20 mg PO Q24H levothyroxine 25 mcg tablet 25 mcg PO Q24H liothyronine 5 mcg tablet 5 mcg PO Q24H memantine 28 mg capsule,sprdaylin,ER 24hr 28 mg PO Q24H montelukast 10 mg tablet 10 mg PO Q24H olanzapine 2.5 mg tablet 2.5 mg PO .QHS Rx Instructions: AT BEDTIME, PER REFILL HISTORY. LAST FILLED 11/06/22 FOR 90 DAYS pantoprazole 40 mg tablet,delayed release (DR/EC) 40 mg PO Q12H heparin (porcine) 5,000 unit/mL solution 5,000 unit subcut Q8H metoprolol tartrate 25 mg Tablet 12.5 mg PO BID Qty: 30 11RF Discontinued oxycodone 5 mg tablet 2.5 mg PO Q4H doxycycline monohydrate 100 mg capsule 100 mg PO Q12H Print Language: Argentine Forms: Portal Instructions
[2023-08-30 10:25] VITALS: O2SAT 95
--- NOTE | 2023-08-30 11:51 | REH.PTDLY ---
Physical Therapy Daily Note PT Daily Note/Assess Start: 08/28/23 10:44 Freq: Status: Active Protocol: Document 08/30/23 11:45 [email or web address] (Rec: 08/30/23 11:50 VALENTINO [id number]) Physical Therapy Daily Note/Assessment Time In 10:45 Time Out 11:05 Subjective Pt initially declined therapy. After discussion pt agrees to bed exs. Therapeutic Exercise Minutes (minutes) 7 Therapeutic Exercise Units 0 Therapeutic Exercise Treatment Instructed in B LE supine exs 10x ea AAROM for improved mobility and strength. Verbal and tactile cues needed to explain QS and hip abd slides. Seated LAQ 10x Joel. Therapeutic Activity Minutes (minutes) 9 Therapeutic Activity Units 1 Therapeutic Activity Comments Pt complains of back itching, asked pt if she would sit at side of bed for lotion to be applied. Pt resistant at first then agrees, requires Min A x2 to transfer from supine to sit. Cues for pt to scoot to EOB for feet to touch floor, unable on own and requires assist. Sitting upright at side of bed lotion applied to pt's back. Pt tends to lean retro with cues for pt to lean forward and to the R for neutral posture. Min A with sit to supine transfer. Mod A x2 to boost pt up in bed. Total Therapy Minutes 16 Total Physical Therapy Units 1 Daily Note Summary Pt resistant to therapy at first and then agrees. Several cues needed for seated balance as pt tends to lean retro and to the L. Pt fatigues with sitting unsupported. Requires assist for transfers. Pt will need SNF stay at [facility] to become stronger for independence.
[2023-08-30 12:00] VITALS: BP 138/56; PULSE 61; TEMP 36.5; O2SAT 96
--- NOTE | 2023-08-30 12:06 | SWNOTE1 ---
Pt is approved to go to [facility]. Pt will be able to discharge after vasular sees pt. SW to speak with pt about transport. SW sent over dc med rec and dc summary.
--- NOTE | 2023-08-30 15:46 | SWNOTE1 ---
Pt is approved to go to [facility] and will be dc today. She is going skilled. SW set up [facility] and they will be here around 6:00. UYEN notified pt's daughter, [facility], and nursing of time. UYEN completed HENS. UYEN did send over dc med rec to [facility].
[2023-08-30 16:20] LABS: Internal Control Within Normal Limits; Occult Blood Negative
== END 2023-08-30 18:57 | DRG 637 ==
LOC: ER 20:28 → MS 20:30
PROVIDERS: Nurse Practitioner Acute Care; Physician Assistant; Admitting Provider Family Medicine; Emergency Provider Emergency Medicine; PCP Family Medicine; Visit Provider Family Medicine
DX: E11.628 Type 2 diabetes mellitus with other skin complications (principal); E43 Unspecified severe protein-calorie malnutrition; L03.116 Cellulitis of left lower limb; N17.9 Acute kidney failure, unspecified; E87.5 Hyperkalemia; N18.30 Chronic kidney disease, stage 3 unspecified; R01.1 Cardiac murmur, unspecified; I27.20 Pulmonary hypertension, unspecified; D50.9 Iron deficiency anemia, unspecified; D63.1 Anemia in chronic kidney disease; F03.90 Unspecified dementia, unspecified severity, without behavioral disturbance, psychotic disturbance, mood disturbance, and anxiety; F32.A Depression, unspecified; E11.51 Type 2 diabetes mellitus with diabetic peripheral angiopathy without gangrene; E03.9 Hypothyroidism, unspecified; I25.10 Atherosclerotic heart disease of native coronary artery without angina pectoris; L89.890 Pressure ulcer of other site, unstageable; Z68.22 Body mass index [BMI] 22.0-22.9, adult; I48.91 Unspecified atrial fibrillation; E11.22 Type 2 diabetes mellitus with diabetic chronic kidney disease; L89.150 Pressure ulcer of sacral region, unstageable; I50.9 Heart failure, unspecified; Z79.899 Other long term (current) drug therapy; Z95.0 Presence of cardiac pacemaker; Z79.890 Hormone replacement therapy; Z87.81 Personal history of (healed) traumatic fracture
CPT/HCPCS: 36415; 73630; 80053; 82800; 82948; 83605; 84145; 85025; 85610; 85652; 86140; 87040; 93306; 93923; 93926; 94667; 94668; 94761; 96365; 96366; 96367; 96368; 96375; 96376; 97110; 97162; 97165; 97530; 97535; 99285; G0328; G0378; J0713; J2405; J3010

== ENCOUNTER 2023-09-04 13:29 | Outpatient (OUT) | payer MEDICARE, SELFPAY ==
--- OUTSIDE RECORDS SUMMARY | 2023-11-13 16:09 | XMS_ITS | CCD ---
Author Organization [facility] Care Team Providers Care Content Designer Name Role Phone PROVIDER, UNKNOWN Admitting Unavailable [...] Admitting Unavailable BERNICE DELEON Attending Unavailable DEV Husain, DR ALVARENGA Primary Care Unavailable BERNICE DELEON Consulting Unavailable FAWWAD, AYOUB H Admitting Unavailable FAWWAD, AYOUB H Attending Unavailable MICHAELY ., DR ALVARENGA Primary Care Unavailable HOY ., DR ALVARENGA Primary Care Unavailable HOY ., DR ALVARENGA Consulting Unavailable HOY ., DR ALVARENGA Admitting Unavailable HOY ., DR ALVARENGA Attending Unavailable ADAMARIS, DR HANNA Jimenez Consulting Unavailable LATIA BAUMANN Consulting Unavailable CARLOS ESCOBEDO Consulting Unavailable MIRANDA MENEZES Consulting Unavailable DEV ., DR ALVARENGA Admitting Unavailable HOY ., DR ALVARENGA Attending Unavailable MICHAELY ., DR ALVARENGA Primary Care Unavailable HOY ., DR ALVARENGA Consulting Unavailable HOY ., DR ALVARENGA Primary Care Unavailable HOY ., DR ALVARENGA Admitting Unavailable HOY ., DR ALVARENGA Attending Unavailable FAWWAD, AYOUB H Attending Unavailable FAWWAD, AYOUB H Admitting Unavailable HONai ., DR ALVARENGA Primary Care Unavailable FAWWAD, [...] Unavailable HOY ., DR ALVARENGA Admbrent Unavailable [place], DR JUAN JOSÉ Mobley Consulting Unavailable HAY ., DR MERCADO Consulting Unavailable JENNIFER, RAMIRO Admitting Unavailable RAMIRO RODRIGUEZ Attending Unavailable HOY ., DR ALVARENGA Primary Care Unavailable HOY ., DR ALVARENGA Consulting Unavailable HOY ., DR ALVARENGA Primary Care Unavailable HOY ., DR ALVARENGA Admitting Unavailable HOY ., DR ALVARENGA Attending Unavailable JUAN F ENCARNACION Unavailable LAUREANO, H Admitting Unavailable HOY ., DR ALVARENGA Primary Care Unavailable SHAIKH TINSLEY H Attending Unavailable AURELIO HUANG Admitting Unavailable AURELIO HUANG Attending Unavailable MICHAELY ., DR ALVARENGA Primary Care Unavailable Chase Méndez Primary Care Physician Tom THOMPSON Attending Unavailable Tom THOMPSON Attending Unavailable Tom THOMPSON Attending Unavailable MD Chase Méndez Attending Provider Chase Méndez Attending Unavailable Michaely, Chase M Admitting Unavailable MichaelyChase M Attending Unavailable Chase Méndez Admitting Unavailable ABDI ROYAL Attending Unavailable Chase Méndez MD Primary Care Provider MICHAELY, CHASE Huy Referring Unavailable HOY, CHASE M Primary Care [...] BRAMBILA Consulting Unavailable MARQUEZ CHOPRA Attending Unavailable ROB MORALES Referring Unavailable ROB MORALES Attending Unavailable LV BLANKENSHIP Attending Unavailable KATY MONTOYA MD Attending SANJAY Perez MD Consulting Unavailable JOHN PERLA Referring Unavailable HOY, CHASE M Primary Care Unavailable HOY, CHASE M Primary Care Unavailable HOY, CHASE M Referring Unavailable SANJAY BERNARD Admitting Unavailable SANJAY BERNARD Consulting Unavailable SANJAY BERNARD Attending Unavailable HOY, CHASE M Primary Care Unavailable JOHN PERLA Consulting Unavailable DENILSON MANN Consulting Unavailable MARGIE FUNEZ Consulting Unavailable LUCIO BURRIS Consulting Unavailable SEVERIANO BRAMBILA Consulting Unavailable JOHN PERLA C Referring Unavailable HOY, CHASE M Primary Care Unavailable JOHN PERLA C Referring Unavailable HOY, CHASE M Primary Care Unavailable GERARDO ZAMORA Referring Unavailable HOY, CHASE M Primary Care Unavailable NAV, MOHAMED F Admitting Unavailable NAV, MOHAMED F Attending Unavailable MARTHA MCLEAN Attending Unavailable NAV, MOHAMED F Attending Unavailable NAV, MOHAMED F Referring Unavailable Larisa ALVES Attending Unavailable HOY, CHASE M Primary Care Unavailable Allergies Allergy Classification Reported Allergen(s) Allergy Type Date of Onset Reaction(s) Facility (10 sources) Penicillins; Translations: [PENICILLINS] Propensity to adverse reactions to drug (disorder) 05-14-19 13 Anaphylactic shock due to serum (disorder), Urticaria (disorder[facility]) Sulfonamides (Antibiotic); Translations: [SULFA ANTIBIOTICS] Propensity to adverse reactions to drug (disorder) 01-05-20 17 [facility] Repository (6 sources) Sulfonamides (Antibiotic); Translations: [SULFA (SULFONAMIDE ANTIBIOTICS)] Drug allergy (disorder) 05-14-19 13 [facility] Repository (2 sources) cefTRIAXone Drug Allergy 05-17-19 20 [facility] Repository (4 sources) Cephalexin; Translations: [cephalexin] Drug Allergy 09-01-19 Anaphylaxis (disorder) [facility] [place] (4 sources) metroNIDAZOLE; Translations: [metronidazole] Drug Allergy 09-01-19 23 [facility] (disorder) [facility] [place] (3 sources) Sulfonamides (Antibiotic); Translations: [sulfa drugs] Drug allergy 01-04-20 Urticaria (disorder) [facility] [place] (3 sources) cefTRIAXone; Translations: [CEFTRIAXONE] Drug Allergy 09-01-19 [facility] Repository (1 source) Sulfamethoxazole / Trimethoprim; Translations: [SULFAMETHOXAZOLE-T RIMETHOPRIM] Drug Allergy 11-01-19 [facility] Repository Medications Current Medications Medication Drug Class(es) [...] Status: Ordered Cranberry-Vitamin C (CRANBERRY CONCENTRATE/VITAMINC ) 44760-619 MG CAPS (2 sources) take 1 tablet by mouth once daily Cranberry-Vitamin C (CRANBERRY CONCENTRATE/VITAMIN C) 59300-980 MG CAPS Take 1 tablet by mouth [...] mg extended release oral capsule (2 sources) P-siygfe-V-aspartate Receptor Antagonist Start: 11-08-2022 take 1 capsule [...] 11/08/22 Status: Ordered take 1 tablet by [facility] once daily at breakfast metFORMIN (GLUCOPHAGE) 500 [...] by mouth See Admin Instructions Dosed by [facility] Anticoagulation Service: 1.5 mg Wed/Sat and [...] 3 11-08-2022 Chronic Congestive heart failure; nonhypertensive (9 sources) Acute combined systolic and diastolic heart [...] Translations: [Hyperlipidemia, unspecified] Onset: 3 11-08-2022 Chronic Esophageal disorders (3 sources) Gastro-esophageal reflux disease [...] 4 Episodic Gangrene (2 sources) Atherosclerosis of [place] arteries of extremities with gangrene, left leg; Translations: [Atherosclerosis of [place] arteries of extremities with gangrene, left leg] [...] (2 sources) Chronic fatigue syndrome 11-08-2022 Chronic Melanomas of skin (1 source) Malignant melanoma of other parts of face; Translations: [Malignant melanoma of other parts of face] Onset: 4 Chronic Neoplasms of unspecified nature or uncertain behavior (4 sources) Neoplasm of uncertain behavior of skin; Translations: [Neoplasm of uncertain behavior of skin] Onset: 3 Episodic Nutritional deficiencies (1 source) Moderate protein-calorie malnutrition; Translations: [Moderate protein-calorie malnutrition] Onset: 4 Chronic Osteoarthritis (1 source) Unspecified osteoarthritis, unspecified site; Translations: [UNSPECIFIED OSTEOARTHRITIS UNS SITE] Onset: 3 Chronic Osteoporosis (2 sources) Senile osteoporosis 11-08-2022 Chronic Other aftercare (5 sources) nursing home (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; Translations: [CARE HOME CURRNT USE ANTICOAGULANTS] Onset: 3 Episodic Other aftercare (5 sources) Encounter for therapeutic drug level monitoring; Translations: [facility]] Onset: 3 Episodic Other aftercare (1 source) 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; Translations: [CARE HOME CURRENT USE OF INSULIN] Onset: 3 Episodic Other aftercare (5 sources) Other correction (current) drug therapy; Translations: [OTH CARE HOME CURRENT DRUG THERAPY] Onset: 2 Episodic Other aftercare (1 source) nursing home (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 oral hypoglycemic drugs; Translations: [OPTOMETRY ASSISTANT USE ORAL HYPOGLYCEMIC DX] Onset: 3 Episodic [...] 4 Episodic Rheumatoid arthritis and related disease (4 sources) Rheumatoid arthritis, unspecified; Translations: [Rheumatoid arthritis] [...] (1 source) Circulatory Problem Onset: 4 Unclassified (2 sources) Other persistent atrial fibrillation; Translations: [Other persistent atrial fibrillation] Onset: 2 Unclassified (1 source) New Patient Onset: 4 Unclassified (1 source) Cardiac Valve Problem Onset: 4 Unclassified (1 source) Critical limb 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[facility]) [I70.262] Onset: 4 Urinary tract infections (1 source) Urinary tract [...] Translations: [OTHER ABNORMAL GLUCOSE] Onset: 04-26-2022 Episodic E Codes: Fall (3 sources) Other fall on same level, initial encounter; Translations: [Unspecified fall, initial encounter] Onset: 09-22-2021 Episodic Malaise and fatigue (5 sources) Weakness; [...] Test Name Value Interpretation Reference Range Facility XR FEMUR LEFT (MIN 2 VIEWS)o n 10-24-2023 XR FEMUR LEFT (MIN 2 VIEWS) History: 88 y.o. year old female status post intramedullary fixation Left femur Comparison: 09/05/2023 Findings: 2 views of the Left femur (AP/lateral) in a skeletally mature patient showing redemonstration of orthopedic hardware in the form of cephalomedullary nail to Left femur. No signs of hardware failure or loosening. Unchanged alignment. No new acute osseous abnormalities. No radiopaque foreign bodies. Impression: Stable hardware Left femur Interpreted by: John Perla DO Signed by: John Perla DO 10/24/23 Final result Normal [facility] Office Visiton 10-10-2023 Follow-up visit [id number] Carrie Lewis 1935 F Date Provider Department Center 10/10/2023 [id number], [facility] BH CARD [place] [facility] No family history on file Level of Service:55747 CT OFFICE/OUTPATIENT ESTABLISHED MOD MDM 30 MIN Normal [facility] Creatinine (Bld) [Mass/Vol]o n 09-19-2023 Creatinine [Mass/Vol] 2.4 mg/dL High 0.4-1.0 [facility] Comment on above: Performed By: #### 6 299-2, 38297-1 #### [facility] ([id number]) [address] [place] [address] GFR/1.73 sq M.predicted among non-blacks MDRD (S/P/Bld) [Vol rate/Area] 19 mL/min/{1.73_m2} Low >59 [facility] Comment on above: Result Comment: Reported eGFR is based on the CKD-EPI 2020 equation that does not use a race coefficient. Performed By: #### 6 299-2, 66648-5 #### [facility] ([id number]) [address] [place] [address] HGB AND HCTon 09-19-2023 Hematocrit (Bld) [Volume fraction] 34.8 % Low 35-47 [facility] Comment on above: Performed By: #### H H #### [facility] ([id number]) [address] [place] [address] Hemoglobin (Bld) [Mass/Vol] 11.0 g/dL Low 11.7-15.5 [facility] Comment on above: Performed By: #### H H #### [facility] ([id number]) [address] [place] [address] Urea nitrogen (Bld) [Mass/Vo l]on 09-19-2023 Glucose [Mass/Vol] 101 mg/dL High 65-99 [facility] Comment on above: Performed By: #### 6 299-2, 68649-0 #### [facility] ([id number]) [address] [place] [address] XR FEMUR LEFT (MIN 2 VIEWS)o n [...] MD Boothby, Benjamin C, Signed by: John Perla, 09/06/23 Final result Normal [facility] XR FOOT LEFT (MIN 3 VIEWS)on 09-06-2023 [...] John Perla DO 09/06/23 Final result Normal [facility] XR FEMUR LEFT (MIN 2 VIEWS)o n [...] Katy Mohamud DO 09/05/23 Final result Normal [facility] Basic Metabolic Profon 07-29 Anion gap [Moles/Vol] 9 mmol/L Normal 9-16 [facility] Comment on above: Performed By: #### B MPX #### [id number] [place] [address] [employer]: Alexey Green MD Calcium [Mass/Vol] 8.1 mg/dL Low 8.6-10.4 [facility] Comment on above: Performed By: #### B MPX #### [address] [address] [employer]: Alexey Green MD Chloride [Moles/Vol] 113 mmol/L High 98-107 [facility] Comment on above: Performed By: #### B MPX #### [facility] [address] [place] [address] [employer]: Alexey Green MD CO2 [Moles/Vol] 18 mmol/L Low 20-31 [facility] Comment on above: Performed By: #### B MPX #### [address] [address] [employer]: Alexey Green MD Creatinine [Mass/Vol] 2.2 mg/dL High 0.50-0.90 [facility] Comment on above: Performed By: #### B MPX #### [address] [address] [employer]: Alexey Green MD GFR/1.73 sq M.predicted among non-blacks MDRD (S/P/Bld) [Vol rate/Area] 21 mL/min/{1.73_m2} Low >60 [facility] Comment on above: Result Comment: These results [...] secretion. Performed By: #### B MPX #### [address] [address] [employer]: Alexey Green MD Glucose [Mass/Vol] 157 mg/dL High 74-99 [facility] Comment on above: Performed By: #### B MPX #### [address] [address] [employer]: Alexey Green MD Potassium [Moles/Vol] 4.8 mmol/L Normal 3.7-5.3 [facility] Comment on above: Performed By: #### B MPX #### [address] [address] [employer]: Alexey Green MD Sodium [Moles/Vol] 140 mmol/L Normal 136-145 [facility] Comment on above: Performed By: #### B MPX #### [facility] [address] [place] [address] [employer]: Alexey Green MD Urea nitrogen [Mass/Vol] 42 mg/dL High 8-23 [facility] Comment on above: Performed By: #### B MPX #### [address] [address] [employer]: Alexey Green MD Anion gap [Moles/Vol] 9 mmol/L Normal 9-16 [facility] Comment on above: Performed By: #### C DP, BMP #### [facility] [address] [place] [address] [employer]: Alexey Green MD Calcium [Mass/Vol] 8.1 mg/dL Low 8.6-10.4 [facility] Comment on above: Performed By: #### C DP, BMP #### [facility] [address] [place] [address] [employer]: Alexey Green MD Chloride [Moles/Vol] 113 mmol/L High 98-107 [facility] Comment on above: Performed By: #### C DP, BMP #### [facility] [address] [place] [address] [employer]: Alexey Green MD CO2 [Moles/Vol] 18 mmol/L Low 20-31 [facility] Comment on above: Performed By: #### C DP, BMP #### [facility] [address] [place] [address] [employer]: Alexey Green MD Creatinine [Mass/Vol] 2.2 mg/dL High 0.50-0.90 [facility] Comment on above: Performed By: #### C DP, BMP #### [address] [address] [employer]: Alexey Green MD GFR/1.73 sq M.predicted among non-blacks MDRD (S/P/Bld) [Vol rate/Area] 21 mL/min/{1.73_m2} Low >60 [facility] Comment on above: Result Comment: These results [...] Performed By: #### C DP, BMP #### [facility] [address] [place] [address] [employer]: Alexey Green MD Glucose [Mass/Vol] 157 mg/dL High 74-99 [facility] Comment on above: Performed By: #### C DP, BMP #### [facility] [address] [place] [address] [employer]: Alexey Green MD Potassium [Moles/Vol] 4.8 mmol/L Normal 3.7-5.3 [facility] Comment on above: Performed By: #### C DP, BMP #### [address] [address] [employer]: Alexey Green MD Sodium [Moles/Vol] 140 mmol/L Normal 136-145 [facility] Comment on above: Performed By: #### C DP, BMP #### [place] [address] [employer]: Alexey Green MD Urea nitrogen [Mass/Vol] 42 mg/dL High 8-23 [facility] Comment on above: Performed By: #### C DP, BMP #### [address] [address] [employer]: Alexey Green MD CBC with Diffon 07-30-2023 Abs. Basophil 0.00 k/uL Normal 0.00-0.20 [facility] Comment on above: Performed By: #### B MPX #### [place] [address] [employer]: Alexey Green MD Abs.Imm.Granulocyte 0.11 k/uL Normal 0.00-0.30 [facility] Comment on above: Performed By: #### B MPX #### [place] [address] [employer]: Alexey Green MD Abs.Neutrophil (Seg) 5.72 k/uL Normal 1.50-8.10 [facility] Comment on above: Performed By: #### B MPX #### [address] [address] [employer]: Alexey Green MD Basophils/100 WBC (Bld) 0 % Normal 0-2 [facility] Comment on above: Performed By: #### B MPX #### [address] [place] [address] [employer]: Alexey Green MD Eosinophils (Bld) [#/Vol] 0.32 10*3/uL Normal 0.00-0.44 [facility] Comment on above: Performed By: #### B MPX #### [address] [address] [employer]: Alexey Green MD Eosinophils/100 WBC (Bld) 3 % Normal 1-4 [facility] Comment on above: Performed By: #### B MPX #### [address] [address] [employer]: Alexey Green MD Immature granulocytes/100 WBC (Bld) 1 % High 0 [facility] Comment on above: Performed By: #### B MPX #### [address] [address] [employer]: Alexey Green MD Lymphocytes (Bld) [#/Vol] 2.92 10*3/uL Normal 1.10-3.70 [facility] Comment on above: Performed By: #### B MPX #### [address] [address] [employer]: Alexey Green MD Lymphocytes/100 WBC (Bld) 27 % Normal 24-43 [facility] Comment on above: Performed By: #### B MPX #### [address] [address] [employer]: Alexey Green MD Monocytes (Bld) [#/Vol] 1.73 10*3/uL High 0.10-1.20 [facility] Comment on above: Performed By: #### B MPX #### [address] [address] [employer]: Alexey Green MD Monocytes/100 WBC (Bld) 16 % High 3-12 [facility] Comment on above: Performed By: #### B MPX #### [address] [address] [employer]: Alexey Green MD Morphology Tito (Bld) [Interp] ANISOCYTOSIS PRESENT Normal [facility] Comment on above: Result Comment: MACR OCYTOSIS PRESENT Performed By: #### B MPX #### [address] [address] [employer]: Alexey Green MD Neutrophil (Seg) 53 % Normal 36-65 [facility] Comment on above: Performed By: #### B MPX #### [address] [address] [employer]: Alexey Green MD Erythrocyte distribution width (RBC) [Ratio] 17.7 % High 11.8-14.4 [facility] Comment on above: Performed By: #### B MPX #### [address] [address] [employer]: Alexey Green MD Hematocrit (Bld) [Volume fraction] 26.6 % Low 36.3-47.1 [facility] Comment on above: Performed By: #### B MPX #### [address] [address] [employer]: Alexey Green MD Hemoglobin (Bld) [Mass/Vol] 7.6 g/dL Low 11.9-15.1 [facility] Comment on above: Performed By: #### B MPX #### [address] [address] [employer]: Alexey Green MD MCH (RBC) [Entitic mass] 29.5 pg Normal 25.2-33.5 [facility] Comment on above: Performed By: #### B MPX #### [address] [address] [employer]: Alexey Green MD MCHC (RBC) [Mass/Vol] 28.6 g/dL Normal 28.4-34.8 [facility] Comment on above: Performed By: #### B MPX #### [address] [address] [employer]: Alexey Green MD MCV (RBC) [Entitic vol] 103.1 fL High 82.6-102.9 [facility] Comment on above: Performed By: #### B MPX #### [address] [address] [employer]: Alexey Green MD NRBC Automated 0.4 per 100 WBC High 0.0 [facility] Comment on above: Performed By: #### B MPX #### [address] [address] [employer]: Alexey Green MD Platelet mean volume (Bld) [Entitic vol] 10.9 fL Normal 8.1-13.5 [facility] Comment on above: Performed By: #### B MPX #### [address] [address] [employer]: Alexey Green MD Platelets (Bld) [#/Vol] 226 10*3/uL Normal 138-453 [facility] Comment on above: Performed By: #### B MPX #### [address] [address] [employer]: Alexey Green MD RBC (Bld) [#/Vol] 2.58 10*6/uL Low 3.95-5.11 [facility] Comment on above: Performed By: #### B MPX #### [address] [address] [employer]: Alexey Green MD WBC (Bld) [#/Vol] 10.8 10*3/uL Normal 3.5-11.3 [facility] Comment on above: Performed By: #### B MPX #### [address] [address] [employer]: Alexey Green MD Abs. Basophil 0.00 k/uL Normal 0.00-0.20 [facility] Comment on above: Performed By: #### C DP, BMP #### [place] [address] [employer]: Alexey Green MD Abs.Imm.Granulocyte 0.11 k/uL Normal 0.00-0.30 [facility] Comment on above: Performed By: #### C DP, BMP #### [place] [address] [employer]: Alexey Green MD Abs.Neutrophil (Seg) 5.72 k/uL Normal 1.50-8.10 [facility] Comment on above: Performed By: #### C DP, BMP #### [address] [address] [employer]: Alexey Green MD Basophils/100 WBC (Bld) 0 % Normal 0-2 [facility] Comment on above: Performed By: #### C DP, BMP #### [place] [address] [employer]: Alexey Green MD Eosinophils (Bld) [#/Vol] 0.32 10*3/uL Normal 0.00-0.44 [facility] Comment on above: Performed By: #### C DP, BMP #### [address] [address] [employer]: Alexye Green MD Eosinophils/100 WBC (Bld) 3 % Normal 1-4 [facility] Comment on above: Performed By: #### C DP, BMP #### [address] [address] [employer]: Alexey Green MD Immature granulocytes/100 WBC (Bld) 1 % High 0 [facility] Comment on above: Performed By: #### C DP, BMP #### [facility] [address] [place] [address] [employer]: Alexey Green MD Lymphocytes (Bld) [#/Vol] 2.92 10*3/uL Normal 1.10-3.70 [facility] Comment on above: Performed By: #### C DP, BMP #### [facility] [address] [place] [address] [employer]: Alexey Green MD Lymphocytes/100 WBC (Bld) 27 % Normal 24-43 [facility] Comment on above: Performed By: #### C DP, BMP #### [facility] [address] [place] [address] [employer]: Alexey Green MD Monocytes (Bld) [#/Vol] 1.73 10*3/uL High 0.10-1.20 [facility] Comment on above: Performed By: #### C DP, BMP #### [facility] [address] [place] [address] [employer]: Alexey Green MD Monocytes/100 WBC (Bld) 16 % High 3-12 [facility] Comment on above: Performed By: #### C DP, BMP #### [facility] [address] [place] [address] [employer]: Alexey Green MD Morphology Tito (Bld) [Interp] ANISOCYTOSIS PRESENT Normal [facility] Comment on above: Result Comment: MACR OCYTOSIS PRESENT Performed By: #### C DP, BMP #### [address] [address] [employer]: Alexey Green MD Neutrophil (Seg) 53 % Normal 36-65 [facility] Comment on above: Performed By: #### C DP, BMP #### [address] [address] [employer]: Alexey Green MD Erythrocyte distribution width (RBC) [Ratio] 17.7 % High 11.8-14.4 [facility] Comment on above: Performed By: #### C DP, BMP #### [address] [address] [employer]: Alexey Green MD Hematocrit (Bld) [Volume fraction] 26.6 % Low 36.3-47.1 [facility] Comment on above: Performed By: #### C DP, BMP #### [address] [address] [employer]: Alexey Green MD Hemoglobin (Bld) [Mass/Vol] 7.6 g/dL Low 11.9-15.1 [facility] Comment on above: Performed By: #### C DP, BMP #### [address] [address] [employer]: Alexey Green MD MCH (RBC) [Entitic mass] 29.5 pg Normal 25.2-33.5 [facility] Comment on above: Performed By: #### C DP, BMP #### [address] [address] [employer]: Alexey Green MD MCHC (RBC) [Mass/Vol] 28.6 g/dL Normal 28.4-34.8 [facility] Comment on above: Performed By: #### C DP, BMP #### [facility] [address] [place] [address] [employer]: Alexey Green MD MCV (RBC) [Entitic vol] 103.1 fL High 82.6-102.9 [facility] Comment on above: Performed By: #### C DP, BMP #### [address] [address] [employer]: Alexey Green MD NRBC Automated 0.4 per 100 WBC High 0.0 [facility] Comment on above: Performed By: #### C DP, BMP #### [address] [address] [employer]: Alexey Green MD Platelet mean volume (Bld) [Entitic vol] 10.9 fL Normal 8.1-13.5 [facility] Comment on above: Performed By: #### C DP, BMP #### [address] [address] [employer]: Alexey Green MD Platelets (Bld) [#/Vol] 226 10*3/uL Normal 138-453 [facility] Comment on above: Performed By: #### C DP, BMP #### [address] [address] [employer]: Alexey Green MD RBC (Bld) [#/Vol] 2.58 10*6/uL Low 3.95-5.11 [facility] Comment on above: Performed By: #### C DP, BMP #### [address] [address] [employer]: Alexey Green MD WBC (Bld) [#/Vol] 10.8 10*3/uL Normal 3.5-11.3 [facility] Comment on above: Performed By: #### C DP, BMP #### [address] [address] [employer]: Alexey Green MD Basic Metabolic Profon 07-28 Anion gap [Moles/Vol] 9 mmol/L Normal 9-16 [facility] Comment on above: Performed By: #### B MPX #### [address] [address] [employer]: Alexey rGeen MD Calcium [Mass/Vol] 8.1 mg/dL Low 8.6-10.4 [facility] Comment on above: Performed By: #### B MPX #### [facility] [address] [place] [address] [employer]: Alexey Green MD Chloride [Moles/Vol] 112 mmol/L High 98-107 [facility] Comment on above: Performed By: #### B MPX #### [facility] [address] [place] [address] [employer]: Alexey Green MD CO2 [Moles/Vol] 18 mmol/L Low 20-31 [facility] Comment on above: Performed By: #### B MPX #### [facility] [address] [place] [address] [employer]: Alexey Green MD Creatinine [Mass/Vol] 2.5 mg/dL High 0.50-0.90 [facility] Comment on above: Performed By: #### B MPX #### [address] [address] [employer]: Alexey Green MD GFR/1.73 sq M.predicted among non-blacks MDRD (S/P/Bld) [Vol rate/Area] 18 mL/min/{1.73_m2} Low >60 [facility] Comment on above: Result Comment: These results [...] secretion. Performed By: #### B MPX #### [address] [address] [employer]: Alexey Green MD Glucose [Mass/Vol] 109 mg/dL High 74-99 [facility] Comment on above: Performed By: #### B MPX #### [address] [address] [employer]: Alexey Green MD Potassium [Moles/Vol] 4.6 mmol/L Normal 3.7-5.3 [facility] Comment on above: Performed By: #### B MPX #### [address] [address] [employer]: Alexey Green MD Sodium [Moles/Vol] 139 mmol/L Normal 136-145 [facility] Comment on above: Performed By: #### B MPX #### [address] [address] [employer]: Alexey Green MD Urea nitrogen [Mass/Vol] 45 mg/dL High 8-23 [facility] Comment on above: Performed By: #### B MPX #### [address] [address] [employer]: Alexey Green MD Anion gap [Moles/Vol] 9 mmol/L Normal 9-16 [facility] Comment on above: Performed By: #### C DP, BMP #### [facility] [address] [place] [address] [employer]: Alexey Green MD Calcium [Mass/Vol] 8.1 mg/dL Low 8.6-10.4 [facility] Comment on above: Performed By: #### C DP, BMP #### [facility] [address] [place] [address] [employer]: Alexey Green MD Chloride [Moles/Vol] 112 mmol/L High 98-107 [facility] Comment on above: Performed By: #### C DP, BMP #### [facility] [address] [place] [address] [employer]: Alexey Green MD CO2 [Moles/Vol] 18 mmol/L Low 20-31 [facility] Comment on above: Performed By: #### C DP, BMP #### [facility] [address] [place] [address] [employer]: Alexey Green MD Creatinine [Mass/Vol] 2.5 mg/dL High 0.50-0.90 [facility] Comment on above: Performed By: #### C DP, BMP #### [address] [address] [employer]: Alexey Green MD GFR/1.73 sq M.predicted among non-blacks MDRD (S/P/Bld) [Vol rate/Area] 18 mL/min/{1.73_m2} Low >60 [facility] Comment on above: Result Comment: These results [...] Performed By: #### C DP, BMP #### [address] [address] [employer]: Alexey Green MD Glucose [Mass/Vol] 109 mg/dL High 74-99 [facility] Comment on above: Performed By: #### C DP, BMP #### [address] [address] [employer]: Alexey Green MD Potassium [Moles/Vol] 4.6 mmol/L Normal 3.7-5.3 [facility] Comment on above: Performed By: #### C DP, BMP #### [address] [address] [employer]: Alexey Green MD Sodium [Moles/Vol] 139 mmol/L Normal 136-145 [facility] Comment on above: Performed By: #### C DP, BMP #### [address] [address] [employer]: Alexey Green MD Urea nitrogen [Mass/Vol] 45 mg/dL High 8-23 [facility] Comment on above: Performed By: #### C DP, BMP #### [address] [address] [employer]: Alexey Green MD CBC with Diffon 07-29-2023 Abs. Basophil 0.05 k/uL Normal 0.00-0.20 [facility] Comment on above: Performed By: #### B MPX #### [address] [address] [employer]: Alexey Green MD Abs.Imm.Granulocyte 0.09 k/uL Normal 0.00-0.30 [facility] Comment on above: Performed By: #### B MPX #### [place] [address] [employer]: Alexey Green MD Abs.Neutrophil (Seg) 5.76 k/uL Normal 1.50-8.10 [facility] Comment on above: Performed By: #### B MPX #### [address] [address] [employer]: Alexey Green MD Basophils/100 WBC (Bld) 1 % Normal 0-2 [facility] Comment on above: Performed By: #### B MPX #### [address] [address] [employer]: Alexey Green MD Eosinophils (Bld) [#/Vol] 0.65 10*3/uL High 0.00-0.44 [facility] Comment on above: Performed By: #### B MPX #### [address] [address] [employer]: Alexey Green MD Eosinophils/100 WBC (Bld) 6 % High 1-4 [facility] Comment on above: Performed By: #### B MPX #### [address] [address] [employer]: Alexey Green MD Erythrocyte distribution width (RBC) [Ratio] 17.6 % High 11.8-14.4 [facility] Comment on above: Performed By: #### B MPX #### [address] [address] [employer]: Alexey Green MD Hematocrit (Bld) [Volume fraction] 27.1 % Low 36.3-47.1 [facility] Comment on above: Performed By: #### B MPX #### [address] [address] [employer]: Alexey Green MD Hemoglobin (Bld) [Mass/Vol] 7.7 g/dL Low 11.9-15.1 [facility] Comment on above: Performed By: #### B MPX #### [address] [address] [employer]: Alexey Green MD Immature granulocytes/100 WBC (Bld) 1 % High 0 [facility] Comment on above: Performed By: #### B MPX #### [address] [address] [employer]: Alexey Green MD Lymphocytes (Bld) [#/Vol] 2.69 10*3/uL Normal 1.10-3.70 [facility] Comment on above: Performed By: #### B MPX #### [address] [address] [employer]: Alexey Green MD Lymphocytes/100 WBC (Bld) 25 % Normal 24-43 [facility] Comment on above: Performed By: #### B MPX #### [address] [address] [employer]: Alexey Green MD MCH (RBC) [Entitic mass] 29.5 pg Normal 25.2-33.5 [facility] Comment on above: Performed By: #### B MPX #### [address] [address] [employer]: Alexey Green MD MCHC (RBC) [Mass/Vol] 28.4 g/dL Normal 28.4-34.8 [facility] Comment on above: Performed By: #### B MPX #### [address] [address] [employer]: Alexey Green MD MCV (RBC) [Entitic vol] 103.8 fL High 82.6-102.9 [facility] Comment on above: Performed By: #### B MPX #### [address] [address] [employer]: Alexey Green MD Monocytes (Bld) [#/Vol] 1.34 10*3/uL High 0.10-1.20 [facility] Comment on above: Performed By: #### B MPX #### [address] [address] [employer]: Alexey Green MD Monocytes/100 WBC (Bld) 13 % High 3-12 [facility] Comment on above: Performed By: #### B MPX #### [address] [address] [employer]: Alexey Green MD Neutrophil (Seg) 54 % Normal 36-65 [facility] Comment on above: Performed By: #### B MPX #### [address] [address] [employer]: Alexey Green MD NRBC Automated 0.3 per 100 WBC High 0.0 [facility] Comment on above: Performed By: #### B MPX #### [address] [address] [employer]: Alexey Green MD Platelet mean volume (Bld) [Entitic vol] 11.4 fL Normal 8.1-13.5 [facility] Comment on above: Performed By: #### B MPX #### [address] [address] [employer]: Alexey Green MD Platelets (Bld) [#/Vol] 180 10*3/uL Normal 138-453 [facility] Comment on above: Performed By: #### B MPX #### [address] [address] [employer]: Alexey Green MD RBC (Bld) [#/Vol] 2.61 10*6/uL Low 3.95-5.11 [facility] Comment on above: Performed By: #### B MPX #### [address] [address] [employer]: Alexey Green MD RBC morphology finding Nom (Bld) ANISOCYTOSIS PRESENT Normal [facility] Comment on above: Result Comment: MACR OCYTOSIS PRESENT Performed By: #### B MPX #### [address] [address] [employer]: Alexey Green MD WBC (Bld) [#/Vol] 10.6 10*3/uL Normal 3.5-11.3 [facility] Comment on above: Performed By: #### B MPX #### [address] [address] [employer]: Alexey Green MD Abs. Basophil 0.05 k/uL Normal 0.00-0.20 [facility] Comment on above: Performed By: #### C DP, BMP #### [address] [address] [employer]: Alexey Green MD Abs.Imm.Granulocyte 0.09 k/uL Normal 0.00-0.30 [facility] Comment on above: Performed By: #### C DP, BMP #### [place] [address] [employer]: Alexey Green MD Abs.Neutrophil (Seg) 5.76 k/uL Normal 1.50-8.10 [facility] Comment on above: Performed By: #### C DP, BMP #### [address] [address] [employer]: Alexey Green MD Basophils/100 WBC (Bld) 1 % Normal 0-2 [facility] Comment on above: Performed By: #### C DP, BMP #### [address] [address] [employer]: Alexey Green MD Eosinophils (Bld) [#/Vol] 0.65 10*3/uL High 0.00-0.44 [facility] Comment on above: Performed By: #### C DP, BMP #### [address] [address] [employer]: Alexey Green MD Eosinophils/100 WBC (Bld) 6 % High 1-4 [facility] Comment on above: Performed By: #### C DP, BMP #### [address] [address] [employer]: Alexey Green MD Erythrocyte distribution width (RBC) [Ratio] 17.6 % High 11.8-14.4 [facility] Comment on above: Performed By: #### C DP, BMP #### [facility] [address] [place] [address] [employer]: Alexey Green MD Hematocrit (Bld) [Volume fraction] 27.1 % Low 36.3-47.1 [facility] Comment on above: Performed By: #### C DP, BMP #### [place] [address] [employer]: Alexey Green MD Hemoglobin (Bld) [Mass/Vol] 7.7 g/dL Low 11.9-15.1 [facility] Comment on above: Performed By: #### C DP, BMP #### [address] [address] [employer]: Alexey Green MD Immature granulocytes/100 WBC (Bld) 1 % High 0 [facility] Comment on above: Performed By: #### C DP, BMP #### [place] [address] [employer]: Alexey Green MD Lymphocytes (Bld) [#/Vol] 2.69 10*3/uL Normal 1.10-3.70 [facility] Comment on above: Performed By: #### C DP, BMP #### [address] [address] [employer]: Alexey Green MD Lymphocytes/100 WBC (Bld) 25 % Normal 24-43 [facility] Comment on above: Performed By: #### C DP, BMP #### [address] [address] [employer]: Alexey Green MD MCH (RBC) [Entitic mass] 29.5 pg Normal 25.2-33.5 [facility] Comment on above: Performed By: #### C DP, BMP #### [address] [address] [employer]: Alexey Green MD MCHC (RBC) [Mass/Vol] 28.4 g/dL Normal 28.4-34.8 [facility] Comment on above: Performed By: #### C DP, BMP #### [address] [address] [employer]: Alexey Green MD MCV (RBC) [Entitic vol] 103.8 fL High 82.6-102.9 [facility] Comment on above: Performed By: #### C DP, BMP #### [address] [address] [employer]: Alexey Green MD Monocytes (Bld) [#/Vol] 1.34 10*3/uL High 0.10-1.20 [facility] Comment on above: Performed By: #### C DP, BMP #### [address] [address] [employer]: Alexey Green MD Monocytes/100 WBC (Bld) 13 % High 3-12 [facility] Comment on above: Performed By: #### C DP, BMP #### [address] [address] [employer]: Alexey Green MD Neutrophil (Seg) 54 % Normal 36-65 [facility] Comment on above: Performed By: #### C DP, BMP #### [address] [address] [employer]: Alexey Green MD NRBC Automated 0.3 per 100 WBC High 0.0 [facility] Comment on above: Performed By: #### C DP, BMP #### [address] [address] [employer]: Alexey Green MD Platelet mean volume (Bld) [Entitic vol] 11.4 fL Normal 8.1-13.5 [facility] Comment on above: Performed By: #### C DP, BMP #### [address] [address] [employer]: Alexey Green MD Platelets (Bld) [#/Vol] 180 10*3/uL Normal 138-453 [facility] Comment on above: Performed By: #### C DP, BMP #### [address] [address] [employer]: Alexey Green MD RBC (Bld) [#/Vol] 2.61 10*6/uL Low 3.95-5.11 [facility] Comment on above: Performed By: #### C DP, BMP #### [address] [address] [employer]: Alexey Green MD RBC morphology finding Nom (Bld) ANISOCYTOSIS PRESENT Normal [facility] Comment on above: Result Comment: MACR OCYTOSIS PRESENT Performed By: #### C DP, BMP #### [address] [address] [employer]: Alexey Green MD WBC (Bld) [#/Vol] 10.6 10*3/uL Normal 3.5-11.3 [facility] Comment on above: Performed By: #### C DP, BMP #### [address] [address] [employer]: Alexey Green MD ROYCE Screenon 07-28-2023 ROYCE Screen Negative Normal NEG [facility] Comment on above: Performed By: #### U RNA, URTP, URCRE, UEOS #### [address] [address] [employer]: Alexey Green MD Anti-dsDNA 1.1 IU/mL Normal <10.0 [facility] Comment on above: Result Comment: Reference Range: <10.0 Negative 10.0-15.0 Equivocal >15.0 Positive Performed By: #### U RNA, URTP, URCRE, UEOS #### [address] [address] [employer]: Alexey Green MD BROOK Screen 0.1 U/mL Normal <0.7 [facility] Comment on above: Result Comment: Reference Range: <0.7 Negative 0.7-1.0 Equivocal >1.0 Positive BROOK Screen includes U1RNP,RNP70,Sm,Ro(SS-A),La(SS-B),CENP,Scl-70,Elva-1 Performed By: #### U RNA, URTP, URCRE, UEOS #### [address] [address] [employer]: Alexey Green MD ROYCE Screen Negative Normal NEG [facility] Comment on above: Performed By: #### U MICAO, UA #### [facility] [address] [place] [address] [employer]: Alexey Green MD Anti-dsDNA 1.1 IU/mL Normal <10.0 [facility] Comment on above: Result Comment: Reference Range: <10.0 Negative 10.0-15.0 Equivocal >15.0 Positive Performed By: #### U MICAO, UA #### [facility] [address] [place] [id number] [employer]: Alexey Green MD BROOK Screen 0.1 U/mL Normal <0.7 [facility] Comment on above: Result Comment: Reference Range: <0.7 Negative 0.7-1.0 Equivocal >1.0 Positive BROOK Screen includes U1RNP,RNP70,Sm,Ro(SS-A),La(SS-B),CENP,Scl-70,Elva-1 Performed By: #### U MICAO, UA #### [address] [address] [employer]: Alexey Green MD Basic Metabolic Profon 07-27 Anion gap [Moles/Vol] 9 mmol/L Normal 9-16 [facility] Comment on above: Performed By: #### B MPX #### [facility] [address] [place] [address] [employer]: Alexey Green MD Calcium [Mass/Vol] 7.8 mg/dL Low 8.6-10.4 [facility] Comment on above: Performed By: #### B MPX #### [address] [address] [employer]: Alexey Green MD Chloride [Moles/Vol] 110 mmol/L High 98-107 [facility] Comment on above: Performed By: #### B MPX #### [address] [address] [employer]: Alexey Green MD CO2 [Moles/Vol] 18 mmol/L Low 20-31 [facility] Comment on above: Performed By: #### B MPX #### [facility] [address] [place] [address] [employer]: Alexey Green MD Creatinine [Mass/Vol] 2.5 mg/dL High 0.50-0.90 [facility] Comment on above: Performed By: #### B MPX #### [address] [address] [employer]: Alexey Green MD GFR/1.73 sq M.predicted among non-blacks MDRD (S/P/Bld) [Vol rate/Area] 18 mL/min/{1.73_m2} Low >60 [facility] Comment on above: Result Comment: These results [...] secretion. Performed By: #### B MPX #### [address] [address] [employer]: Alexey Green MD Glucose [Mass/Vol] 143 mg/dL High 74-99 [facility] Comment on above: Performed By: #### B MPX #### [facility] [address] [place] [address] [employer]: Alexey Green MD Potassium [Moles/Vol] 4.4 mmol/L Normal 3.7-5.3 [facility] Comment on above: Performed By: #### B MPX #### [facility] [address] [place] [address] [employer]: Alexey Green MD Sodium [Moles/Vol] 137 mmol/L Normal 136-145 [facility] Comment on above: Performed By: #### B MPX #### [facility] [address] [place] [address] [employer]: Alexey Green MD Urea nitrogen [Mass/Vol] 44 mg/dL High 8-23 [facility] Comment on above: Performed By: #### B MPX #### [facility] [address] [place] [address] [employer]: Alexey Green MD Anion gap [Moles/Vol] 9 mmol/L Normal 9-16 [facility] Comment on above: Performed By: #### C DP, BMP #### [address] [address] [employer]: Alexey Green MD Calcium [Mass/Vol] 7.8 mg/dL Low 8.6-10.4 [facility] Comment on above: Performed By: #### C DP, BMP #### [address] [address] [employer]: Alexey Green MD Chloride [Moles/Vol] 110 mmol/L High 98-107 [facility] Comment on above: Performed By: #### C DP, BMP #### [address] [address] [employer]: Alexey Green MD CO2 [Moles/Vol] 18 mmol/L Low 20-31 [facility] Comment on above: Performed By: #### C DP, BMP #### [facility] [address] [place] [address] [employer]: Alexey Green MD Creatinine [Mass/Vol] 2.5 mg/dL High 0.50-0.90 [facility] Comment on above: Performed By: #### C DP, BMP #### [address] [address] [employer]: Alexey Green MD GFR/1.73 sq M.predicted among non-blacks MDRD (S/P/Bld) [Vol rate/Area] 18 mL/min/{1.73_m2} Low >60 [facility] Comment on above: Result Comment: These results [...] Performed By: #### C DP, BMP #### [place] [address] [employer]: Alexey Green MD Glucose [Mass/Vol] 143 mg/dL High 74-99 [facility] Comment on above: Performed By: #### C DP, BMP #### [place] [address] [employer]: Alexey Green MD Potassium [Moles/Vol] 4.4 mmol/L Normal 3.7-5.3 [facility] Comment on above: Performed By: #### C DP, BMP #### [place] [address] [employer]: Alexey Green MD Sodium [Moles/Vol] 137 mmol/L Normal 136-145 [facility] Comment on above: Performed By: #### C DP, BMP #### [place] [address] [employer]: Alexey Green MD Urea nitrogen [Mass/Vol] 44 mg/dL High 8-23 [facility] Comment on above: Performed By: #### C DP, BMP #### [place] [address] [employer]: Alexey Green MD CBC with Diffon 07-28-2023 Abs. Basophil 0.03 k/uL Normal 0.00-0.20 [facility] Comment on above: Performed By: #### U RNA, URTP, URCRE, UEOS #### [place] [address] [employer]: Alexey Green MD Abs.Imm.Granulocyte 0.06 k/uL Normal 0.00-0.30 [facility] Comment on above: Performed By: #### U RNA, URTP, URCRE, UEOS #### [address] [address] [employer]: Alexey Green MD Abs.Neutrophil (Seg) 5.08 k/uL Normal 1.50-8.10 [facility] Comment on above: Performed By: #### U RNA, URTP, URCRE, UEOS #### [place] [address] [employer]: Alexey Green MD Basophils/100 WBC (Bld) 0 % Normal 0-2 [facility] Comment on above: Performed By: #### U RNA, URTP, URCRE, UEOS #### [place] [address] [employer]: Alexey Green MD Eosinophils (Bld) [#/Vol] 0.65 10*3/uL High 0.00-0.44 [facility] Comment on above: Performed By: #### U RNA, URTP, URCRE, UEOS #### [place] [address] [employer]: Alexey Green MD Eosinophils/100 WBC (Bld) 7 % High 1-4 [facility] Comment on above: Performed By: #### U RNA, URTP, URCRE, UEOS #### [place] [address] [employer]: Alexey Green MD Erythrocyte distribution width (RBC) [Ratio] 18.1 % High 11.8-14.4 [facility] Comment on above: Performed By: #### U RNA, URTP, URCRE, UEOS #### [address] [address] [employer]: Alexey Green MD Hematocrit (Bld) [Volume fraction] 25.1 % Low 36.3-47.1 [facility] Comment on above: Performed By: #### U RNA, URTP, URCRE, UEOS #### [address] [address] [employer]: Alexey Grene MD Hemoglobin (Bld) [Mass/Vol] 7.2 g/dL Low 11.9-15.1 [facility] Comment on above: Performed By: #### U RNA, URTP, URCRE, UEOS #### [address] [address] [employer]: Alexey Green MD Immature granulocytes/100 WBC (Bld) 1 % High 0 [facility] Comment on above: Performed By: #### U RNA, URTP, URCRE, UEOS #### [address] [address] [employer]: Alexey Green MD Lymphocytes (Bld) [#/Vol] 2.69 10*3/uL Normal 1.10-3.70 [facility] Comment on above: Performed By: #### U RNA, URTP, URCRE, UEOS #### [address] [address] [employer]: Alexey Green MD Lymphocytes/100 WBC (Bld) 28 % Normal 24-43 [facility] Comment on above: Performed By: #### U RNA, URTP, URCRE, UEOS #### [address] [address] [employer]: Alexey Green MD MCH (RBC) [Entitic mass] 29.3 pg Normal 25.2-33.5 [facility] Comment on above: Performed By: #### U RNA, URTP, URCRE, UEOS #### [address] [address] [employer]: Alexey Green MD MCHC (RBC) [Mass/Vol] 28.7 g/dL Normal 28.4-34.8 [facility] Comment on above: Performed By: #### U RNA, URTP, URCRE, UEOS #### [address] [address] [employer]: Alexey Green MD MCV (RBC) [Entitic vol] 102.0 fL Normal 82.6-102.9 [facility] Comment on above: Performed By: #### U RNA, URTP, URCRE, UEOS #### [address] [address] [employer]: Alexey Green MD Monocytes (Bld) [#/Vol] 1.10 10*3/uL Normal 0.10-1.20 [facility] Comment on above: Performed By: #### U RNA, URTP, URCRE, UEOS #### [address] [address] [employer]: Alexey Green MD Monocytes/100 WBC (Bld) 11 % Normal 3-12 [facility] Comment on above: Performed By: #### U RNA, URTP, URCRE, UEOS #### [address] [address] [employer]: Alexey Green MD Neutrophil (Seg) 53 % Normal 36-65 [facility] Comment on above: Performed By: #### U RNA, URTP, URCRE, UEOS #### [address] [address] [employer]: Alexey Green MD NRBC Automated 0.0 per 100 WBC Normal 0.0 [facility] Comment on above: Performed By: #### U RNA, URTP, URCRE, UEOS #### [address] [address] [employer]: Alexey Green MD Platelet mean volume (Bld) [Entitic vol] 11.7 fL Normal 8.1-13.5 [facility] Comment on above: Performed By: #### U RNA, URTP, URCRE, UEOS #### [address] [address] [employer]: Alexey Green MD Platelets (Bld) [#/Vol] 161 10*3/uL Normal 138-453 [facility] Comment on above: Performed By: #### U RNA, URTP, URCRE, UEOS #### [place] [address] [employer]: Alexey Green MD RBC (Bld) [#/Vol] 2.46 10*6/uL Low 3.95-5.11 [facility] Comment on above: Performed By: #### U RNA, URTP, URCRE, UEOS #### [place] [address] [employer]: Alexey Green MD RBC morphology finding Nom (Bld) ANISOCYTOSIS PRESENT Normal [facility] Comment on above: Performed By: #### U RNA, URTP, URCRE, UEOS #### [address] [address] [employer]: Alexey Green MD WBC (Bld) [#/Vol] 9.6 10*3/uL Normal 3.5-11.3 [facility] Comment on above: Performed By: #### U RNA, URTP, URCRE, UEOS #### [address] [address] [employer]: Alexey Green MD Abs. Basophil 0.03 k/uL Normal 0.00-0.20 [facility] Comment on above: Performed By: #### C DP, BMP #### [facility] [address] [place] [address] [employer]: Alexey Green MD Abs.Imm.Granulocyte 0.06 k/uL Normal 0.00-0.30 [facility] Comment on above: Performed By: #### C DP, BMP #### [address] [address] [employer]: Alexey Green MD Abs.Neutrophil (Seg) 5.08 k/uL Normal 1.50-8.10 [facility] Comment on above: Performed By: #### C DP, BMP #### [place] [address] [employer]: Alexey Green MD Basophils/100 WBC (Bld) 0 % Normal 0-2 [facility] Comment on above: Performed By: #### C DP, BMP #### [address] [address] [employer]: Alexey Green MD Eosinophils (Bld) [#/Vol] 0.65 10*3/uL High 0.00-0.44 [facility] Comment on above: Performed By: #### C DP, BMP #### [address] [address] [employer]: Alexey Green MD Eosinophils/100 WBC (Bld) 7 % High 1-4 [facility] Comment on above: Performed By: #### C DP, BMP #### [facility] [address] [place] [address] [employer]: Alexey Green MD Erythrocyte distribution width (RBC) [Ratio] 18.1 % High 11.8-14.4 [facility] Comment on above: Performed By: #### C DP, BMP #### [facility] [address] [place] [address] [employer]: Alexey Green MD Hematocrit (Bld) [Volume fraction] 25.1 % Low 36.3-47.1 [facility] Comment on above: Performed By: #### C DP, BMP #### [address] [address] [employer]: Alexey Green MD Hemoglobin (Bld) [Mass/Vol] 7.2 g/dL Low 11.9-15.1 [facility] Comment on above: Performed By: #### C DP, BMP #### [address] [address] [employer]: Alexey Green MD Immature granulocytes/100 WBC (Bld) 1 % High 0 [facility] Comment on above: Performed By: #### C DP, BMP #### [address] [address] [employer]: Alexey Green MD Lymphocytes (Bld) [#/Vol] 2.69 10*3/uL Normal 1.10-3.70 [facility] Comment on above: Performed By: #### C DP, BMP #### [address] [address] [employer]: Alexey Green MD Lymphocytes/100 WBC (Bld) 28 % Normal 24-43 [facility] Comment on above: Performed By: #### C DP, BMP #### [address] [address] [employer]: Alexey Green MD MCH (RBC) [Entitic mass] 29.3 pg Normal 25.2-33.5 [facility] Comment on above: Performed By: #### C DP, BMP #### [address] [address] [employer]: Alexey Green MD MCHC (RBC) [Mass/Vol] 28.7 g/dL Normal 28.4-34.8 [facility] Comment on above: Performed By: #### C DP, BMP #### [address] [address] [employer]: Alexey Green MD MCV (RBC) [Entitic vol] 102.0 fL Normal 82.6-102.9 [facility] Comment on above: Performed By: #### C DP, BMP #### [address] [address] [employer]: Alexey Green MD Monocytes (Bld) [#/Vol] 1.10 10*3/uL Normal 0.10-1.20 [facility] Comment on above: Performed By: #### C DP, BMP #### [address] [address] [employer]: Alexey Green MD Monocytes/100 WBC (Bld) 11 % Normal 3-12 [facility] Comment on above: Performed By: #### C DP, BMP #### [address] [address] [employer]: Alexey Green MD Neutrophil (Seg) 53 % Normal 36-65 [facility] Comment on above: Performed By: #### C DP, BMP #### [address] [address] [employer]: Alexey Green MD NRBC Automated 0.0 per 100 WBC Normal 0.0 [facility] Comment on above: Performed By: #### C DP, BMP #### [address] [address] [employer]: Alexey Green MD Platelet mean volume (Bld) [Entitic vol] 11.7 fL Normal 8.1-13.5 [facility] Comment on above: Performed By: #### C DP, BMP #### [address] [address] [employer]: Alexey Green MD Platelets (Bld) [#/Vol] 161 10*3/uL Normal 138-453 [facility] Comment on above: Performed By: #### C DP, BMP #### [address] [address] [employer]: Alexey Green MD RBC (Bld) [#/Vol] 2.46 10*6/uL Low 3.95-5.11 [facility] Comment on above: Performed By: #### C DP, BMP #### [address] [address] [employer]: Alexey Green MD RBC morphology finding Nom (Bld) ANISOCYTOSIS PRESENT Normal [facility] Comment on above: Performed By: #### C DP, BMP #### [address] [address] [employer]: Alexey Green MD WBC (Bld) [#/Vol] 9.6 10*3/uL Normal 3.5-11.3 [facility] Comment on above: Performed By: #### C DP, BMP #### [address] [address] [employer]: Alexey Green MD Basic Metabolic Profon 07-26 Anion gap [Moles/Vol] 9 mmol/L Normal 9-16 [facility] Comment on above: Performed By: #### U RNA, URTP, URCRE, UEOS #### [address] [address] [employer]: Alexey Green MD Calcium [Mass/Vol] 7.5 mg/dL Low 8.6-10.4 [facility] Comment on above: Performed By: #### U RNA, URTP, URCRE, UEOS #### [address] [address] [employer]: Alexey Green MD Chloride [Moles/Vol] 110 mmol/L High 98-107 [facility] Comment on above: Performed By: #### U RNA, URTP, URCRE, UEOS #### [address] [address] [employer]: Alexey Green MD CO2 [Moles/Vol] 17 mmol/L Low 20-31 [facility] Comment on above: Performed By: #### U RNA, URTP, URCRE, UEOS #### [address] [address] [employer]: Alexey Green MD Creatinine [Mass/Vol] 2.6 mg/dL High 0.50-0.90 [facility] Comment on above: Performed By: #### U RNA, URTP, URCRE, UEOS #### [address] [address] [employer]: Alexey Green MD GFR/1.73 sq M.predicted among non-blacks MDRD (S/P/Bld) [Vol rate/Area] 17 mL/min/{1.73_m2} Low >60 [facility] Comment on above: Result Comment: These results [...] #### U RNA, URTP, URCRE, UEOS #### [address] [address] [employer]: Alexey Green MD Glucose [Mass/Vol] 90 mg/dL Normal 74-99 [facility] Comment on above: Performed By: #### U RNA, URTP, URCRE, UEOS #### [facility] [address] [place] [address] [employer]: Alexey Green MD Potassium [Moles/Vol] 4.3 mmol/L Normal 3.7-5.3 [facility] Comment on above: Performed By: #### U RNA, URTP, URCRE, UEOS #### [facility] [address] [place] [address] [employer]: Alexey Green MD Sodium [Moles/Vol] 136 mmol/L Normal 136-145 [facility] Comment on above: Performed By: #### U RNA, URTP, URCRE, UEOS #### [facility] [address] [place] [address] [employer]: Alexey Green MD Urea nitrogen [Mass/Vol] 44 mg/dL High 8-23 [facility] Comment on above: Performed By: #### U RNA, URTP, URCRE, UEOS #### [facility] [address] [place] [address] [employer]: Alexey Green MD Anion gap [Moles/Vol] 9 mmol/L Normal 9-16 [facility] Comment on above: Performed By: #### Tanja ADAMES UA #### [facility] [address] [place] [address] [employer]: Alexey Green MD Calcium [Mass/Vol] 7.5 mg/dL Low 8.6-10.4 [facility] Comment on above: Performed By: #### Tanja ADAMES UA #### [facility] [address] [place] [address] [employer]: Alexey Green MD Chloride [Moles/Vol] 110 mmol/L High 98-107 [facility] Comment on above: Performed By: #### Tanja ADAMES UA #### [facility] [address] [place] [address] [employer]: Alexey Green MD CO2 [Moles/Vol] 17 mmol/L Low 20-31 [facility] Comment on above: Performed By: #### U MICAO UA #### [facility] [place] [address] [employer]: Alexey Green MD Creatinine [Mass/Vol] 2.6 mg/dL High 0.50-0.90 [facility] Comment on above: Performed By: #### U MICAO UA #### [employer] [address] [place] [address] [employer]: Alexey Green MD GFR/1.73 sq M.predicted among non-blacks MDRD (S/P/Bld) [Vol rate/Area] 17 mL/min/{1.73_m2} Low >60 [facility] Comment on above: Result Comment: These results [...] Performed By: #### U KURTISO UA #### [employer] [facility] [place] [address] [employer]: Alexey Green MD Glucose [Mass/Vol] 90 mg/dL Normal 74-99 [facility] Comment on above: Performed By: #### U MICAO UA #### [facility] [place] [address] [employer]: Alexey Green MD Potassium [Moles/Vol] 4.3 mmol/L Normal 3.7-5.3 [facility] Comment on above: Performed By: #### U MICAO, UA #### [employer] [address] [place] [address] [employer]: Alexey Green MD Sodium [Moles/Vol] 136 mmol/L Normal 136-145 [facility] Comment on above: Performed By: #### U KURTISRick UA #### [address] [address] [employer]: Alexey Green MD Urea nitrogen [Mass/Vol] 44 mg/dL High 8-23 [facility] Comment on above: Performed By: #### U KURTISRick UA #### [address] [address] [employer]: Alexey Green MD CBC with Diffon 07-27-2023 Abs. Basophil 0.00 k/uL Normal 0.00-0.20 [facility] Comment on above: Performed By: #### U RNA, URTP, URCRE, UEOS #### [address] [address] [employer]: Alexey Green MD Abs.Imm.Granulocyte 0.10 k/uL Normal 0.00-0.30 [facility] Comment on above: Performed By: #### U RNA, URTP, URCRE, UEOS #### [address] [address] [employer]: Alexey Green MD Abs.Neutrophil (Seg) 5.10 k/uL Normal 1.50-8.10 [facility] Comment on above: Performed By: #### U RNA, URTP, URCRE, UEOS #### [address] [address] [employer]: Alexey Green MD Basophils/100 WBC (Bld) 0 % Normal 0-2 [facility] Comment on above: Performed By: #### U RNA, URTP, URCRE, UEOS #### [address] [address] [employer]: Alexey Green MD Eosinophils (Bld) [#/Vol] 0.70 10*3/uL High 0.00-0.44 [facility] Comment on above: Performed By: #### U RNA, URTP, URCRE, UEOS #### [address] [address] [employer]: Alexey Green MD Eosinophils/100 WBC (Bld) 7 % High 1-4 [facility] Comment on above: Performed By: #### U RNA, URTP, URCRE, UEOS #### [place] [address] [employer]: Alexey Green MD Immature granulocytes/100 WBC (Bld) 1 % High 0 [facility] Comment on above: Performed By: #### U RNA, URTP, URCRE, UEOS #### [place] [address] [employer]: Alexey Green MD Lymphocytes (Bld) [#/Vol] 3.20 10*3/uL Normal 1.10-3.70 [facility] Comment on above: Performed By: #### U RNA, URTP, URCRE, UEOS #### [place] [address] [employer]: Alexey Green MD Lymphocytes/100 WBC (Bld) 32 % Normal 24-43 [facility] Comment on above: Performed By: #### U RNA, URTP, URCRE, UEOS #### [address] [address] [employer]: Alexey Green MD Monocytes (Bld) [#/Vol] 0.90 10*3/uL Normal 0.10-1.20 [facility] Comment on above: Performed By: #### U RNA, URTP, URCRE, UEOS #### [address] [address] [employer]: Alexey Green MD Monocytes/100 WBC (Bld) 9 % Normal 3-12 [facility] Comment on above: Performed By: #### U RNA, URTP, URCRE, UEOS #### [address] [address] [employer]: Alexey Green MD Morphology Tito (Bld) [Interp] ANISOCYTOSIS PRESENT Normal [facility] Comment on above: Result Comment: MACR OCYTOSIS PRESENT Performed By: #### U RNA, URTP, URCRE, UEOS #### [address] [address] [employer]: Alexey Green MD Neutrophil (Seg) 51 % Normal 36-65 [facility] Comment on above: Performed By: #### U RNA, URTP, URCRE, UEOS #### [address] [address] [employer]: Alexey Green MD Erythrocyte distribution width (RBC) [Ratio] 18.8 % High 11.8-14.4 [facility] Comment on above: Performed By: #### U RNA, URTP, URCRE, UEOS #### [address] [address] [employer]: Alexey Green MD Hematocrit (Bld) [Volume fraction] 28.5 % Low 36.3-47.1 [facility] Comment on above: Performed By: #### U RNA, URTP, URCRE, UEOS #### [address] [address] [employer]: Alexey Green MD Hemoglobin (Bld) [Mass/Vol] 7.7 g/dL Low 11.9-15.1 [facility] Comment on above: Performed By: #### U RNA, URTP, URCRE, UEOS #### [address] [address] [employer]: Alexey Green MD MCH (RBC) [Entitic mass] 29.5 pg Normal 25.2-33.5 [facility] Comment on above: Performed By: #### U RNA, URTP, URCRE, UEOS #### [address] [address] [employer]: Alexey Green MD MCHC (RBC) [Mass/Vol] 27.0 g/dL Low 28.4-34.8 [facility] Comment on above: Performed By: #### U RNA, URTP, URCRE, UEOS #### [address] [address] [employer]: Alexey Green MD MCV (RBC) [Entitic vol] 109.2 fL High 82.6-102.9 [facility] Comment on above: Performed By: #### U RNA, URTP, URCRE, UEOS #### [address] [address] [employer]: Alexey Green MD NRBC Automated 0.2 per 100 WBC High 0.0 [facility] Comment on above: Performed By: #### U RNA, URTP, URCRE, UEOS #### [address] [address] [employer]: Alexey Green MD Platelet mean volume (Bld) [Entitic vol] 11.4 fL Normal 8.1-13.5 [facility] Comment on above: Performed By: #### U RNA, URTP, URCRE, UEOS #### [address] [address] [employer]: Alexey Green MD Platelets (Bld) [#/Vol] 135 10*3/uL Low 138-453 [facility] Comment on above: Performed By: #### U RNA, URTP, URCRE, UEOS #### [address] [address] [employer]: Alexey Green MD RBC (Bld) [#/Vol] 2.61 10*6/uL Low 3.95-5.11 [facility] Comment on above: Performed By: #### U RNA, URTP, URCRE, UEOS #### [address] [address] [employer]: Alexey Green MD WBC (Bld) [#/Vol] 10.0 10*3/uL Normal 3.5-11.3 [facility] Comment on above: Performed By: #### U RNA, URTP, URCRE, UEOS #### [address] [address] [employer]: Alexey Green MD Abs. Basophil 0.00 k/uL Normal 0.00-0.20 [facility] Comment on above: Performed By: #### C DP, BMP #### [address] [address] [employer]: Alexey Green MD Abs.Imm.Granulocyte 0.10 k/uL Normal 0.00-0.30 [facility] Comment on above: Performed By: #### C DP, BMP #### [address] [address] [employer]: Alexey Green MD Abs.Neutrophil (Seg) 5.10 k/uL Normal 1.50-8.10 [facility] Comment on above: Performed By: #### C DP, BMP #### [address] [address] [employer]: Alexey Green MD Basophils/100 WBC (Bld) 0 % Normal 0-2 [facility] Comment on above: Performed By: #### C DP, BMP #### [address] [address] [employer]: Alexey Green MD Eosinophils (Bld) [#/Vol] 0.70 10*3/uL High 0.00-0.44 [facility] Comment on above: Performed By: #### C DP, BMP #### [address] [address] [employer]: Alexey Green MD Eosinophils/100 WBC (Bld) 7 % High 1-4 [facility] Comment on above: Performed By: #### C DP, BMP #### [address] [address] [employer]: Alexey Green MD Immature granulocytes/100 WBC (Bld) 1 % High 0 [facility] Comment on above: Performed By: #### C DP, BMP #### [address] [address] [employer]: Alexey Green MD Lymphocytes (Bld) [#/Vol] 3.20 10*3/uL Normal 1.10-3.70 [facility] Comment on above: Performed By: #### C DP, BMP #### [address] [address] [employer]: Alexey Green MD Lymphocytes/100 WBC (Bld) 32 % Normal 24-43 [facility] Comment on above: Performed By: #### C DP, BMP #### [address] [address] [employer]: Alexey Grene MD Monocytes (Bld) [#/Vol] 0.90 10*3/uL Normal 0.10-1.20 [facility] Comment on above: Performed By: #### C DP, BMP #### [address] [address] [employer]: Alexey Green MD Monocytes/100 WBC (Bld) 9 % Normal 3-12 [facility] Comment on above: Performed By: #### C DP, BMP #### [address] [address] [employer]: Alexey Green MD Morphology Tito (Bld) [Interp] ANISOCYTOSIS PRESENT Normal [facility] Comment on above: Result Comment: MACR OCYTOSIS PRESENT Performed By: #### C DP, BMP #### [address] [address] [employer]: Alexey Green MD Neutrophil (Seg) 51 % Normal 36-65 [facility] Comment on above: Performed By: #### C DP, BMP #### [address] [address] [employer]: Alexey Green MD Erythrocyte distribution width (RBC) [Ratio] 18.8 % High 11.8-14.4 [facility] Comment on above: Performed By: #### C DP, BMP #### [address] [address] [employer]: Alexey Green MD Hematocrit (Bld) [Volume fraction] 28.5 % Low 36.3-47.1 [facility] Comment on above: Performed By: #### C DP, BMP #### [address] [address] [employer]: Alexey Green MD Hemoglobin (Bld) [Mass/Vol] 7.7 g/dL Low 11.9-15.1 [facility] Comment on above: Performed By: #### C DP, BMP #### [address] [place] [address] [employer]: Alexey Green MD MCH (RBC) [Entitic mass] 29.5 pg Normal 25.2-33.5 [facility] Comment on above: Performed By: #### C DP, BMP #### [address] [address] [employer]: Alexey rGeen MD MCHC (RBC) [Mass/Vol] 27.0 g/dL Low 28.4-34.8 [facility] Comment on above: Performed By: #### C DP, BMP #### [address] [address] [employer]: Alexey Green MD MCV (RBC) [Entitic vol] 109.2 fL High 82.6-102.9 [facility] Comment on above: Performed By: #### C DP, BMP #### [address] [address] [employer]: Alexey Green MD NRBC Automated 0.2 per 100 WBC High 0.0 [facility] Comment on above: Performed By: #### C DP, BMP #### [address] [address] [employer]: Alexey Green MD Platelet mean volume (Bld) [Entitic vol] 11.4 fL Normal 8.1-13.5 [facility] Comment on above: Performed By: #### C DP, BMP #### [address] [address] [employer]: Alexey Green MD Platelets (Bld) [#/Vol] 135 10*3/uL Low 138-453 [facility] Comment on above: Performed By: #### C DP, BMP #### [address] [address] [employer]: Alexey Green MD RBC (Bld) [#/Vol] 2.61 10*6/uL Low 3.95-5.11 [facility] Comment on above: Performed By: #### C DP, BMP #### [address] [address] [employer]: Alexey Green MD WBC (Bld) [#/Vol] 10.0 10*3/uL Normal 3.5-11.3 [facility] Comment on above: Performed By: #### C DP, BMP #### [address] [address] [employer]: Alexey Green MD Phosphorus, Inorg.on 024 Phosphorus, Inorg. 4.4 mg/dL Normal 2.5-4.5 [facility] Comment on above: Performed By: #### U RNA, URTP, URCRE, UEOS #### [address] [address] [employer]: Alexey Green MD Phosphorus, Inorg. 4.4 mg/dL Normal 2.5-4.5 [facility] Comment on above: Performed By: #### U MICAO, UA #### [address] [address] [employer]: Alexey Green MD Prot. Electroph, Blon 2023 Pathologist Review: ELECTRONICALLY ANNA CARRILLO M.D. Normal [facility] Comment on above: Performed By: #### U RNA, URTP, URCRE, UEOS #### [address] [address] [employer]: Alexey Green MD Albumin [Mass/Vol] 3.1 g/dL Low 3.2-5.2 [facility] Comment on above: Performed By: #### U RNA, URTP, URCRE, UEOS #### [address] [address] [employer]: Alexey Green MD Albumin, % 55 % Normal 45-65 [facility] Comment on above: Performed By: #### U RNA, URTP, URCRE, UEOS #### [address] [address] [employer]: Alexey Green MD Lzhfk-2-etauxhwri 0.3 g/dL Normal 0.1-0.4 [facility] Comment on above: Performed By: #### U RNA, URTP, URCRE, UEOS #### [address] [address] [employer]: Alexey Green MD Fswco-9-spxpdeahl,% 4 % Normal 3-6 [facility] Comment on above: Performed By: #### U RNA, URTP, URCRE, UEOS #### [address] [address] [employer]: Alexey Green MD Arbki-0-jeihovnvs 0.8 g/dL Normal 0.5-0.9 [facility] Comment on above: Performed By: #### U RNA, URTP, URCRE, UEOS #### [address] [address] [employer]: Alexey Green MD Hdylv-9-rqqqkhbfs,% 15 % High 6-13 [facility] Comment on above: Performed By: #### U RNA, URTP, URCRE, UEOS #### [address] [address] [employer]: Alexey Green MD Beta-globulins 0.8 g/dL Normal 0.5-1.1 [facility] Comment on above: Performed By: #### U RNA, URTP, URCRE, UEOS #### [address] [address] [employer]: Alexey Green MD Beta-globulins,% 14 % Normal 11-19 [facility] Comment on above: Performed By: #### U RNA, URTP, URCRE, UEOS #### [address] [address] [employer]: Alexey Green MD Gamma-globulins 0.7 g/dL Normal 0.5-1.5 [facility] Comment on above: Performed By: #### U RNA, URTP, URCRE, UEOS #### [address] [address] [employer]: Alexey Green MD Gamma-globulins,% 13 % Normal 9-20 [facility] Comment on above: Performed By: #### U RNA, URTP, URCRE, UEOS #### [address] [address] [employer]: Alexey Green MD Prot. Elect-Interp Albumin is decreased . May be observed with hepatic diseases, proteinuria, Normal [facility] Comment on above: Result Comment: maln utrition, acute phase response, and hemodilution. Performed By: #### U RNA, URTP, URCRE, UEOS #### [address] [address] [employer]: Alexey Green MD Total Prot. Sum 5.7 g/dL Low 6.3-8.2 [facility] Comment on above: Performed By: #### U RNA, URTP, URCRE, UEOS #### [address] [address] [employer]: Alexey Green MD Total Prot. Sum,% 101 % Normal 98-102 [facility] Comment on above: Performed By: #### U RNA, URTP, URCRE, UEOS #### [facility] [address] [place] [address] [employer]: Alexey Green MD Pathologist Review: ELECTRONICALLY ANNA CARRILLO M.D. Normal [facility] Comment on above: Performed By: #### U MICAO, UA #### [facility] [address] [place] [address] [employer]: Alexey Green MD Albumin [Mass/Vol] 3.1 g/dL Low 3.2-5.2 [facility] Comment on above: Performed By: #### U MICAO, UA #### [facility] [address] [place] [address] [employer]: Alexey Green MD Albumin, % 55 % Normal 45-65 [facility] Comment on above: Performed By: #### U MICAO, UA #### [facility] [address] [place] [address] [employer]: Alexey Green MD Taemo-7-wiwxlplgs 0.3 g/dL Normal 0.1-0.4 [facility] Comment on above: Performed By: #### U MICAO, UA #### [facility] [address] [place] [address] [employer]: Alexey Green MD Xsdpt-7-cuhirwlxq,% 4 % Normal 3-6 [facility] Comment on above: Performed By: #### U MICAO, UA #### [facility] [address] [place] [address] [employer]: Alexey Green MD Ohjrm-1-oaoxmynns 0.8 g/dL Normal 0.5-0.9 [facility] Comment on above: Performed By: #### U MICAO, UA #### [facility] [address] [place] [address] [employer]: Alexey Green MD Leenb-8-sddxqlorb,% 15 % High 6-13 [facility] Comment on above: Performed By: #### U MICAO, UA #### [facility] [place] [address] [employer]: Alexey Green MD Beta-globulins 0.8 g/dL Normal 0.5-1.1 [facility] Comment on above: Performed By: #### U MICAO, UA #### [facility] [address] [place] [address] [employer]: Alexey Green MD Beta-globulins,% 14 % Normal 11-19 [facility] Comment on above: Performed By: #### U MICAO, UA #### [facility] [address] [place] [address] [employer]: Alexey Green MD Gamma-globulins 0.7 g/dL Normal 0.5-1.5 [facility] Comment on above: Performed By: #### U KURTISO, UA #### [facility] [address] [place] [address] [employer] Roller: Alexey Green MD Gamma-globulins,% 13 % Normal 9-20 [facility] Comment on above: Performed By: #### U KURTISO, UA #### [facility] [address] [place] [phone] [place] [employer]: Alexey Green MD Prot. Elect-Interp Albumin is decreased . May be observed with hepatic diseases, proteinuria, Normal [facility] Comment on above: Result Comment: maln utrition, acute phase response, and hemodilution. Performed By: #### U MICAO, UA #### [facility] [address] [place] [address] [place] [employer]: Alexey Green MD Total Prot. Sum 5.7 g/dL Low 6.3-8.2 [facility] Comment on above: Performed By: #### U ZACARIAS UA #### [facility] [place] [address] [place] [employer]: Alexey Green MD Total Prot. Sum,% 101 % Normal 98-102 [facility] Comment on above: Performed By: #### U ZACARIAS UA #### [facility] [address] [place] [address] [place] [employer]: Alexey Green MD US RENAL COMPLETEon 07-27-19 [...] Edmundo Morton MD 07/26/23 Final result Normal [facility] Basic Metabolic Profon 07-25 Anion gap [Moles/Vol] 9 mmol/L Normal 9-16 [facility] Comment on above: Performed By: #### U RNA, URTP, URCRE, UEOS #### [facility] [address] [place] [address] [place] [employer]: Alexey Green MD Calcium [Mass/Vol] 7.7 mg/dL Low 8.6-10.4 [facility] Comment on above: Performed By: #### U RNA, URTP, URCRE, UEOS #### [facility] [address] [place] [address] [id number] [place] [employer]: Alexey Green MD Chloride [Moles/Vol] 108 mmol/L High 98-107 [facility] Comment on above: Performed By: #### U RNA, URTP, URCRE, UEOS #### [facility] [place] [address] [place] [employer]: Alexey Green MD CO2 [Moles/Vol] 20 mmol/L Normal 20-31 [facility] Comment on above: Performed By: #### U RNA, URTP, URCRE, UEOS #### [address] [address] [employer] [employer]: Alexey Green MD Creatinine [Mass/Vol] 2.7 mg/dL High 0.50-0.90 [facility] Comment on above: Performed By: #### U RNA, URTP, URCRE, UEOS #### [address] [address] [employer] [employer]: Alexey Green MD GFR/1.73 sq M.predicted among non-blacks MDRD (S/P/Bld) [Vol rate/Area] 17 mL/min/{1.73_m2} Low >60 [facility] Comment on above: Result Comment: These results [...] #### U RNA, URTP, URCRE, UEOS #### [facility] [place] [address] [employer] [employer]: Alexey Green MD Glucose [Mass/Vol] 132 mg/dL High 74-99 [facility] Comment on above: Performed By: #### U RNA, URTP, URCRE, UEOS #### [address] [address] [employer]: Alexey Green MD Potassium [Moles/Vol] 4.9 mmol/L Normal 3.7-5.3 [facility] Comment on above: Performed By: #### U RNA, URTP, URCRE, UEOS #### [address] [address] [employer] [employer]: Alexey Green MD Sodium [Moles/Vol] 137 mmol/L Normal 136-145 [facility] Comment on above: Performed By: #### U RNA, URTP, URCRE, UEOS #### [address] [address] [employer] [employer]: Alexey Green MD Urea nitrogen [Mass/Vol] 43 mg/dL High 8-23 [facility] Comment on above: Performed By: #### U RNA, URTP, URCRE, UEOS #### [address] [address] [place] [employer]: Alexey Green MD Anion gap [Moles/Vol] 9 mmol/L Normal 9-16 [facility] Comment on above: Performed By: #### U ZACARIAS UA #### [address] [address] [employer] [employer]: Alexey Green MD Calcium [Mass/Vol] 7.7 mg/dL Low 8.6-10.4 [facility] Comment on above: Performed By: #### U ZACARIAS UA #### [facility] [address] [place] [address] [place] [employer]: Alexey Green MD Chloride [Moles/Vol] 108 mmol/L High 98-107 [facility] Comment on above: Performed By: #### U ZACARIAS UA #### [address] [address] [employer] [employer]: Alexey Green MD CO2 [Moles/Vol] 20 mmol/L Normal 20-31 [facility] Comment on above: Performed By: #### U ZACARIAS UA #### [address] [address] [employer] [employer]: Alexey Green MD Creatinine [Mass/Vol] 2.7 mg/dL High 0.50-0.90 [facility] Comment on above: Performed By: #### U ZACARIAS UA #### [address] [address] [employer]: Alexey Green MD GFR/1.73 sq M.predicted among non-blacks MDRD (S/P/Bld) [Vol rate/Area] 17 mL/min/{1.73_m2} Low >60 [facility] Comment on above: Result Comment: These results [...] Performed By: #### U ZACARIAS UA #### [address] [address] [employer] [employer]ler: Alexey Green MD Glucose [Mass/Vol] 132 mg/dL High 74-99 [facility] Comment on above: Performed By: #### U ZACARIAS UA #### [facility] [address] [place] [address] [employer] [employer]: Alexey Green MD Potassium [Moles/Vol] 4.9 mmol/L Normal 3.7-5.3 [facility] Comment on above: Performed By: #### U ZACARIAS UA #### [facility] [address] [place] [address] [employer] [employer]: Alexey Green MD Sodium [Moles/Vol] 137 mmol/L Normal 136-145 [facility] Comment on above: Performed By: #### U MICAO, UA #### [facility] [address] [place] [address] [employer] [employer]: Alexey Green MD Urea nitrogen [Mass/Vol] 43 mg/dL High 8-23 [facility] Comment on above: Performed By: #### U KURTISO, UA #### [facility] [address] [place] [address] [place] [employer]: Alexey Green MD C3on 07-26-2023 C3 120 mg/dL Normal 90-180 [facility] Comment on above: Performed By: #### U RNA, URTP, URCRE, UEOS #### [facility] [address] [place] [address] [place] [employer]: Alexey Green MD C3 120 mg/dL Normal 90-180 [facility] Comment on above: Performed By: #### U ZACARIAS UA #### [facility] [address] [place] [address] [employer] [employer]: Alexey Green MD C4on 07-26-2023 C4 27 mg/dL Normal 10-40 [facility] Comment on above: Performed By: #### U RNA, URTP, URCRE, UEOS #### [facility] [address] [place] [address] [employer] [employer]: Alexey Green MD C4 27 mg/dL Normal 10-40 [facility] Comment on above: Performed By: #### U MICAO, UA #### [facility] [address] [place] [address] [employer]: Alexey Green MD CBC with Diffon 07-26-2023 Abs. Basophil 0.04 k/uL Normal 0.00-0.20 [facility] Comment on above: Performed By: #### U RNA, URTP, URCRE, UEOS #### [address] [address] [employer]: Alexey Green MD Abs.Imm.Granulocyte 0.07 k/uL Normal 0.00-0.30 [facility] Comment on above: Performed By: #### U RNA, URTP, URCRE, UEOS #### [address] [address] [employer]: Alexey Green MD Abs.Neutrophil (Seg) 7.93 k/uL Normal 1.50-8.10 [facility] Comment on above: Performed By: #### U RNA, URTP, URCRE, UEOS #### [place] [address] [employer]: Alexey Green MD Basophils/100 WBC (Bld) 0 % Normal 0-2 [facility] Comment on above: Performed By: #### U RNA, URTP, URCRE, UEOS #### [address] [address] [employer]: Alexey Green MD Eosinophils (Bld) [#/Vol] 0.79 10*3/uL High 0.00-0.44 [facility] Comment on above: Performed By: #### U RNA, URTP, URCRE, UEOS #### [address] [address] [employer]: Alexey Green MD Eosinophils/100 WBC (Bld) 6 % High 1-4 [facility] Comment on above: Performed By: #### U RNA, URTP, URCRE, UEOS #### [address] [address] [employer]: Alexey Green MD Erythrocyte distribution width (RBC) [Ratio] 19.9 % High 11.8-14.4 [facility] Comment on above: Performed By: #### U RNA, URTP, URCRE, UEOS #### [address] [address] [employer]: Alexey Green MD Hematocrit (Bld) [Volume fraction] 29.3 % Low 36.3-47.1 [facility] Comment on above: Performed By: #### U RNA, URTP, URCRE, UEOS #### [place] [address] [employer]: Alexey Green MD Hemoglobin (Bld) [Mass/Vol] 8.8 g/dL Low 11.9-15.1 [facility] Comment on above: Performed By: #### U RNA, URTP, URCRE, UEOS #### [place] [address] [employer]ler: Alexey Green MD Immature granulocytes/100 WBC (Bld) 1 % High 0 [facility] Comment on above: Performed By: #### U RNA, URTP, URCRE, UEOS #### [place] [address] [employer]: Alexey Green MD Lymphocytes (Bld) [#/Vol] 3.17 10*3/uL Normal 1.10-3.70 [facility] Comment on above: Performed By: #### U RNA, URTP, URCRE, UEOS #### [place] [address] [employer]: Alexey Green MD Lymphocytes/100 WBC (Bld) 24 % Normal 24-43 [facility] Comment on above: Performed By: #### U RNA, URTP, URCRE, UEOS #### [address] [address] [employer]ler: Alexey Green MD MCH (RBC) [Entitic mass] 29.6 pg Normal 25.2-33.5 [facility] Comment on above: Performed By: #### U RNA, URTP, URCRE, UEOS #### [address] [address] [employer]ler: Alexey Green MD MCHC (RBC) [Mass/Vol] 30.0 g/dL Normal 28.4-34.8 [facility] Comment on above: Performed By: #### U RNA, URTP, URCRE, UEOS #### [address] [address] [employer]: Alexey Green MD MCV (RBC) [Entitic vol] 98.7 fL Normal 82.6-102.9 [facility] Comment on above: Performed By: #### U RNA, URTP, URCRE, UEOS #### [address] [address] [employer]ler: Alexey Green MD Monocytes (Bld) [#/Vol] 1.13 10*3/uL Normal 0.10-1.20 [facility] Comment on above: Performed By: #### U RNA, URTP, URCRE, UEOS #### [address] [address] [employer]: Alexey Green MD Monocytes/100 WBC (Bld) 9 % Normal 3-12 [facility] Comment on above: Performed By: #### U RNA, URTP, URCRE, UEOS #### [address] [address] [employer]: Alexey Green MD Neutrophil (Seg) 61 % Normal 36-65 [facility] Comment on above: Performed By: #### U RNA, URTP, URCRE, UEOS #### [address] [address] [employer]: Alexey Green MD NRBC Automated 0.2 per 100 WBC High 0.0 [facility] Comment on above: Performed By: #### U RNA, URTP, URCRE, UEOS #### [place] [address] [employer] [employer]ler: Alexey Green MD Platelet Count See Reflexed IPF Result Normal 138-453 [facility] Comment on above: Performed By: #### U RNA, URTP, URCRE, UEOS #### [place] [address] [employer]ler: Alexey Green MD Platelet, Fluoresc. 133 k/uL Low 138-453 [facility] Comment on above: Performed By: #### U RNA, URTP, URCRE, UEOS #### [place] [address] [employer]: Alexey Green MD PLT, Immature Fract. 6.0 % Normal 1.1-10.3 [facility] Comment on above: Performed By: #### U RNA, URTP, URCRE, UEOS #### [place] [address] [employer]: Alexey Green MD RBC (Bld) [#/Vol] 2.97 10*6/uL Low 3.95-5.11 [facility] Comment on above: Performed By: #### U RNA, URTP, URCRE, UEOS #### [address] [address] [employer]: Alexey Green MD RBC morphology finding Nom (Bld) ANISOCYTOSIS PRESENT Normal [facility] Comment on above: Performed By: #### U RNA, URTP, URCRE, UEOS #### [address] [address] [employer]: Alexey Green MD WBC (Bld) [#/Vol] 13.1 10*3/uL High 3.5-11.3 [facility] Comment on above: Performed By: #### U RNA, URTP, URCRE, UEOS #### [address] [address] [employer]: Alexey Green MD Abs. Basophil 0.04 k/uL Normal 0.00-0.20 [facility] Comment on above: Performed By: #### U MICAO UA #### [address] [address] [employer]: Alexey Green MD Abs.Imm.Granulocyte 0.07 k/uL Normal 0.00-0.30 [facility] Comment on above: Performed By: #### U MICAO, UA #### [address] [address] [employer]ler: Alexey Green MD Abs.Neutrophil (Seg) 7.93 k/uL Normal 1.50-8.10 [facility] Comment on above: Performed By: #### U MICAO, UA #### [address] [address] [employer]ler: Alexey Green MD Basophils/100 WBC (Bld) 0 % Normal 0-2 [facility] Comment on above: Performed By: #### U MICAO, UA #### [place] [address] [employer]: Alexey Green MD Eosinophils (Bld) [#/Vol] 0.79 10*3/uL High 0.00-0.44 [facility] Comment on above: Performed By: #### U MICAO, UA #### [address] [address] [employer]: Alexey Green MD Eosinophils/100 WBC (Bld) 6 % High 1-4 [facility] Comment on above: Performed By: #### U MICAO, UA #### [facility] [address] [place] [address] [employer]: Alexey Green MD Erythrocyte distribution width (RBC) [Ratio] 19.9 % High 11.8-14.4 [facility] Comment on above: Performed By: #### U MICAO, UA #### [facility] [address] [place] [address] [employer]: Alexey Green MD Hematocrit (Bld) [Volume fraction] 29.3 % Low 36.3-47.1 [facility] Comment on above: Performed By: #### U ZACARIAS UA #### [facility] [address] [place] [address] [employer]: Alexey Green MD Hemoglobin (Bld) [Mass/Vol] 8.8 g/dL Low 11.9-15.1 [facility] Comment on above: Performed By: #### U MICAO, UA #### [facility] [address] [place] [address] [employer]: Alexey Green MD Immature granulocytes/100 WBC (Bld) 1 % High 0 [facility] Comment on above: Performed By: #### U MICAO, UA #### [facility] [address] [place] [address] [employer]: Alexey Green MD Lymphocytes (Bld) [#/Vol] 3.17 10*3/uL Normal 1.10-3.70 [facility] Comment on above: Performed By: #### U KURTISO, UA #### [facility] [address] [place] [address] [employer]: Alexey Green MD Lymphocytes/100 WBC (Bld) 24 % Normal 24-43 [facility] Comment on above: Performed By: #### U KURTISO, UA #### [address] [address] [employer]: Alexey Green MD MCH (RBC) [Entitic mass] 29.6 pg Normal 25.2-33.5 [facility] Comment on above: Performed By: #### U MICAO, UA #### [address] [address] [employer]: Alexey Green MD MCHC (RBC) [Mass/Vol] 30.0 g/dL Normal 28.4-34.8 [facility] Comment on above: Performed By: #### U KURTISO, UA #### [address] [address] [employer]: Alexey Green MD MCV (RBC) [Entitic vol] 98.7 fL Normal 82.6-102.9 [facility] Comment on above: Performed By: #### U ZACARIAS, UA #### [address] [address] [employer]: Alexey Green MD Monocytes (Bld) [#/Vol] 1.13 10*3/uL Normal 0.10-1.20 [facility] Comment on above: Performed By: #### U MICAO, UA #### [address] [address] [employer]: Alexey Green MD Monocytes/100 WBC (Bld) 9 % Normal 3-12 [facility] Comment on above: Performed By: #### U MICAO, UA #### [address] [address] [employer]: Alexey Green MD Neutrophil (Seg) 61 % Normal 36-65 [facility] Comment on above: Performed By: #### U KURTISO, UA #### [address] [address] [employer]: Alexey Green MD NRBC Automated 0.2 per 100 WBC High 0.0 [facility] Comment on above: Performed By: #### U KURTISO, UA #### [address] [address] [employer]: Alexey Green MD Platelet Count See Reflexed IPF Result Normal 138-453 [facility] Comment on above: Performed By: #### U KURTISO, UA #### [address] [address] [employer]: Alexey Green MD Platelet, Fluoresc. 133 k/uL Low 138-453 [facility] Comment on above: Performed By: #### U ZACARIAS, UA #### [address] [address] [employer]: Alexey Green MD PLT, Immature Fract. 6.0 % Normal 1.1-10.3 [facility] Comment on above: Performed By: #### U KURTISO, UA #### [address] [address] [employer]: Alexey Green MD RBC (Bld) [#/Vol] 2.97 10*6/uL Low 3.95-5.11 [facility] Comment on above: Performed By: #### U KURTISO, UA #### [address] [address] [employer]: Alexey Green MD RBC morphology finding Nom (Bld) ANISOCYTOSIS PRESENT Normal [facility] Comment on above: Performed By: #### U KURTISO, UA #### [address] [address] [employer]: Alexey Green MD WBC (Bld) [#/Vol] 13.1 10*3/uL High 3.5-11.3 [facility] Comment on above: Performed By: #### U MICAO, UA #### [address] [address] [employer]: Alexey Green MD Creatinine,Random Uron 07-25 Creatinine [Mass/Vol] 63.2 mg/dL Normal 28.0-217.0 [facility] Comment on above: Performed By: #### U RNA, URTP, URCRE, UEOS #### [address] [address] [employer]: Alexey Green MD Creatinine [Mass/Vol] 63.2 mg/dL Normal 28.0-217.0 [facility] Comment on above: Performed By: #### C DP, BMP #### [address] [address] [employer]: Alexey Green MD Eosinophils, Urineon 024 Eosinophils, Urine NONE SEEN Normal [facility] Comment on above: Performed By: #### U RNA, URTP, URCRE, UEOS #### [address] [address] [employer]: Alexey Green MD Eosinophils, Urine NONE SEEN Normal [facility] Comment on above: Performed By: #### C DP, BMP #### [address] [address] [employer]: Alexey Green MD Free [place] + Lambdaon 2023 Free [place] Lt Chains 95.5 mg/L High <20.8 [facility] Comment on above: Result Comment: Perf ormed using Diazyme reagent on [employer] Pro. Results obtained with different assay methods cannot be used interchangeably. Performed By: #### U RNA, URTP, URCRE, UEOS #### [facility] [address] [place] [address] [employer]: Alexey Green MD Free [place]/Lambda Rat 1.29 Normal 0.22-1.74 [facility] Comment on above: Performed By: #### U RNA, URTP, URCRE, UEOS #### [address] [address] [employer]: Alexey Green MD Free Lambda Lt Chains 74.1 mg/L High 4.2-27.7 [facility] Comment on above: Result Comment: Perf ormed using Diazyme reagent on [employer]. Results obtained with different assay methods cannot be used interchangeably. Performed By: #### U RNA, URTP, URCRE, UEOS #### [address] [address] [employer]: Alexey Green MD Free [place] Lt Chains 95.5 mg/L High <20.8 [facility] Comment on above: Result Comment: Perf ormed using Diazyme reagent on [employer]. Results obtained with different assay methods cannot be used interchangeably. Performed By: #### U MICAO, UA #### [facility] [address] [place] [address] [employer]: Alexey Green MD Free [place]/Lambda Rat 1.29 Normal 0.22-1.74 [facility] Comment on above: Performed By: #### U MICAO, UA #### [facility] [address] [place] [address] [employer]: Alexey Green MD Free Lambda Lt Chains 74.1 mg/L High 4.2-27.7 [facility] Comment on above: Result Comment: Perf ormed using Diazyme reagent on [employer]. Results obtained with different assay methods cannot be used interchangeably. Performed By: #### U MICAO, UA #### [facility] [address] [place] [address] [employer]: Alexey Green MD Prot. Electroph, Blon 2023 Protein [Mass/Vol] 5.7 g/dL Low 6.6-8.7 [facility] Comment on above: Performed By: #### U RNA, URTP, URCRE, UEOS #### [facility] [address] [place] [address] [employer]: Alexey Green MD Protein [Mass/Vol] 5.7 g/dL Low 6.6-8.7 [facility] Comment on above: Performed By: #### U MICAO, UA #### [facility] [address] [place] [address] [employer]: Alexey Green MD Protein,Tot,[place] Uron 2023 Tot Prot. Conc. 29 mg/dL Normal [facility] Comment on above: Result Comment: No n ormal range established. Performed By: #### U RNA, URTP, URCRE, UEOS #### [facility] [address] [place] [address] [employer]: Alexey Green MD Tot Prot. Conc. 29 mg/dL Normal [facility] Comment on above: Result Comment: No n ormal range established. Performed By: #### C DP, BMP #### [facility] [address] [place] [address] [employer]: Alexey Green MD Sodium, Random Uron 07-26-19 24 Sodium (U) [Moles/Vol] 32 mmol/L Normal [facility] Comment on above: Result Comment: No n ormal range established. Performed By: #### U RNA, URTP, URCRE, UEOS #### [facility] [address] [place] [address] [employer]: Alexey Green MD Sodium (U) [Moles/Vol] 32 mmol/L Normal [facility] Comment on above: Result Comment: No n ormal range established. Performed By: #### C DP, [facility] #### [facility] [place] [address] [employer]: Alexey Green MD US RENAL COMPLETEon 07-26-19 [...] Edmundo Morton MD 07/26/23 Final result Normal [facility] XR CHEST PORTABLEon 07-26-19 XR CHEST PORTABLE [...] Iam Mcknight MD 07/26/23 Final result Normal [facility] XR CHEST PORTABLE EXAMINATION: ONE XRAY VIEW [...] Iam Mcknight MD 07/26/23 Final result Normal [facility] Basic Metab w/rfx MGon 07-24 Anion gap [Moles/Vol] 11 mmol/L Normal 9-16 [facility] Comment on above: Performed By: #### B MPX #### [address] [address] [employer]: Alexey Green MD Calcium [Mass/Vol] 7.7 mg/dL Low 8.6-10.4 [facility] Comment on above: Performed By: #### B MPX #### [facility] [address] [place] [address] [employer]: Alexey Green MD Chloride [Moles/Vol] 107 mmol/L Normal 98-107 [facility] Comment on above: Performed By: #### B MPX #### [facility] [address] [place] [address] [employer]: Alexey Green MD CO2 [Moles/Vol] 19 mmol/L Low 20-31 [facility] Comment on above: Performed By: #### B MPX #### [facility] [address] [place] [address] [employer]: Alexey Green MD Creatinine [Mass/Vol] 2.4 mg/dL High 0.50-0.90 [facility] Comment on above: Performed By: #### B MPX #### [facility] [address] [place] [address] [employer]: Alexey Green MD GFR/1.73 sq M.predicted among non-blacks MDRD (S/P/Bld) [Vol rate/Area] 19 mL/min/{1.73_m2} Low >60 [facility] Comment on above: Result Comment: These results [...] secretion. Performed By: #### B MPX #### [address] [address] [employer]: Alexey Green MD Glucose [Mass/Vol] 188 mg/dL High 74-99 [facility] Comment on above: Performed By: #### B MPX #### [facility] [address] [place] [address] [employer]: Alexey Green MD Potassium [Moles/Vol] 5.1 mmol/L Normal 3.7-5.3 [facility] Comment on above: Performed By: #### B MPX #### [facility] [address] [place] [address] [employer]: Alexey Green MD Sodium [Moles/Vol] 137 mmol/L Normal 136-145 [facility] Comment on above: Performed By: #### B MPX #### [facility] [address] [place] [address] [employer]: Alexey Green MD Urea nitrogen [Mass/Vol] 42 mg/dL High 8-23 [facility] Comment on above: Performed By: #### B MPX #### [address] [address] [employer]: Alexey Green MD Anion gap [Moles/Vol] 11 mmol/L Normal 9-16 [facility] Comment on above: Performed By: #### BRIDGET RODASO, UA #### [facility] [address] [place] [address] [employer]: Alexey Green MD Calcium [Mass/Vol] 7.7 mg/dL Low 8.6-10.4 [facility] Comment on above: Performed By: #### VIKTOR RODAS, UA #### [facility] [address] [place] [address] [employer]: Alexey Green MD Chloride [Moles/Vol] 107 mmol/L Normal 98-107 [facility] Comment on above: Performed By: #### VIKTOR RODAS, UA #### [facility] [address] [place] [address] [employer]: Alexey Green MD CO2 [Moles/Vol] 19 mmol/L Low 20-31 [facility] Comment on above: Performed By: #### VIKTOR RODAS UA #### [facility] [address] [place] [address] [employer]: Alexey Green MD Creatinine [Mass/Vol] 2.4 mg/dL High 0.50-0.90 [facility] Comment on above: Performed By: #### VIKTOR RODAS UA #### [facility] [address] [place] [address] [employer]: Alexey Green MD GFR/1.73 sq M.predicted among non-blacks MDRD (S/P/Bld) [Vol rate/Area] 19 mL/min/{1.73_m2} Low >60 [facility] Comment on above: Result Comment: These results [...] #### VIKTOR RODAS UA #### [facility] [address] [place] [address] [employer]: Alexey Green MD Glucose [Mass/Vol] 188 mg/dL High 74-99 [facility] Comment on above: Performed By: #### VIKTOR RODAS UA #### [facility] [address] [place] [address] [employer]: Alexey Green MD Potassium [Moles/Vol] 5.1 mmol/L Normal 3.7-5.3 [facility] Comment on above: Performed By: #### VIKTOR RODAS UA #### [facility] [address] [place] [address] [employer]: Alexey Green MD Sodium [Moles/Vol] 137 mmol/L Normal 136-145 [facility] Comment on above: Performed By: #### VIKTOR RODAS UA #### [facility] [address] [place] [address] [employer]: Alexey Green MD Urea nitrogen [Mass/Vol] 42 mg/dL High 8-23 [facility] Comment on above: Performed By: #### VIKTOR RODAS UA #### [facility] [address] [place] [address] [employer]: Alexey Green MD Basic Metabolic Profon 07-24 Anion gap [Moles/Vol] 10 mmol/L Normal 9-16 [facility] Comment on above: Performed By: #### Laly DP, BMP #### [facility] [address] [place] [address] [employer]: Alexey Green MD Calcium [Mass/Vol] 7.6 mg/dL Low 8.6-10.4 [facility] Comment on above: Performed By: #### C DP, BMP #### [address] [address] [employer]: Alexey Green MD Chloride [Moles/Vol] 108 mmol/L High 98-107 [facility] Comment on above: Performed By: #### C DP, BMP #### [address] [address] [employer]: Alexey Green MD CO2 [Moles/Vol] 21 mmol/L Normal 20-31 [facility] Comment on above: Performed By: #### C DP, BMP #### [address] [address] [employer]: Alexey Green MD Creatinine [Mass/Vol] 2.3 mg/dL High 0.50-0.90 [facility] Comment on above: Performed By: #### C DP, BMP #### [address] [address] [employer]: Alexey Green MD GFR/1.73 sq M.predicted among non-blacks MDRD (S/P/Bld) [Vol rate/Area] 20 mL/min/{1.73_m2} Low >60 [facility] Comment on above: Result Comment: These results [...] Performed By: #### C DP, BMP #### [address] [address] [employer]: Alexey Green MD Glucose [Mass/Vol] 130 mg/dL High 74-99 [facility] Comment on above: Performed By: #### C DP, BMP #### [facility] [address] [place] [address] [employer]: Alexey Green MD Potassium [Moles/Vol] 5.3 mmol/L Normal 3.7-5.3 [facility] Comment on above: Performed By: #### C DP, BMP #### [facility] [address] [place] [address] [employer]: Alexey Green MD Sodium [Moles/Vol] 139 mmol/L Normal 136-145 [facility] Comment on above: Performed By: #### C DP, BMP #### [facility] [address] [place] [address] [employer]: Alexey Green MD Urea nitrogen [Mass/Vol] 41 mg/dL High 8-23 [facility] Comment on above: Performed By: #### C DP, BMP #### [facility] [address] [place] [address] [employer]: Alexey Green MD Anion gap [Moles/Vol] 10 mmol/L Normal 9-16 [facility] Comment on above: Performed By: #### C DP, BMP #### [facility] [address] [place] [address] [employer]: Alexey Green MD Calcium [Mass/Vol] 7.6 mg/dL Low 8.6-10.4 [facility] Comment on above: Performed By: #### C DP, BMP #### [facility] [address] [place] [address] [employer]: Alexey Green MD Chloride [Moles/Vol] 108 mmol/L High 98-107 [facility] Comment on above: Performed By: #### C DP, BMP #### [facility] [address] [place] [address] [employer]: Alexey Green MD CO2 [Moles/Vol] 21 mmol/L Normal 20-31 [facility] Comment on above: Performed By: #### C DP, BMP #### [address] [address] [employer]: Alexey Green MD Creatinine [Mass/Vol] 2.3 mg/dL High 0.50-0.90 [facility] Comment on above: Performed By: #### C DP, BMP #### [address] [address] [employer]: Alexey Green MD GFR/1.73 sq M.predicted among non-blacks MDRD (S/P/Bld) [Vol rate/Area] 20 mL/min/{1.73_m2} Low >60 [facility] Comment on above: Result Comment: These results [...] Performed By: #### C DP, BMP #### [address] [address] [employer]: Alexey Green MD Glucose [Mass/Vol] 130 mg/dL High 74-99 [facility] Comment on above: Performed By: #### C DP, BMP #### [facility] [address] [place] [address] 115[address] [employer]: Alexey Green MD Potassium [Moles/Vol] 5.3 mmol/L Normal 3.7-5.3 [facility] Comment on above: Performed By: #### C DP, BMP #### [facility] [address] [place] [address]74 [employer]: Alexey Green MD Sodium [Moles/Vol] 139 mmol/L Normal 136-145 [facility] Comment on above: Performed By: #### C DP, BMP #### [place] [address] [employer]: Alexey Green MD Urea nitrogen [Mass/Vol] 41 mg/dL High 8-23 [facility] Comment on above: Performed By: #### C DP, BMP #### [place] [address] [employer]: Alexey Green MD CBC with Diffon 07-25-2023 Abs. Basophil 0.03 k/uL Normal 0.00-0.20 [facility] Comment on above: Performed By: #### C DP, BMP #### [place] [address] [employer]: Alexey Green MD Abs.Imm.Granulocyte 0.03 k/uL Normal 0.00-0.30 [facility] Comment on above: Performed By: #### C DP, BMP #### [place] [address] [employer]: Alexey Green MD Abs.Neutrophil (Seg) 6.37 k/uL Normal 1.50-8.10 [facility] Comment on above: Performed By: #### C DP, BMP #### [place] [address] [employer]: Alexey Green MD Basophils/100 WBC (Bld) 0 % Normal 0-2 [facility] Comment on above: Performed By: #### C DP, BMP #### [place] [address] [employer]: Alexey Green MD Eosinophils (Bld) [#/Vol] 0.30 10*3/uL Normal 0.00-0.44 [facility] Comment on above: Performed By: #### C DP, BMP #### [address] [address] [employer]: Alexey Green MD Eosinophils/100 WBC (Bld) 3 % Normal 1-4 [facility] Comment on above: Performed By: #### C DP, BMP #### [address] [address] [employer]: Alexey Green MD Erythrocyte distribution width (RBC) [Ratio] 13.5 % Normal 11.8-14.4 [facility] Comment on above: Performed By: #### C DP, BMP #### [address] [address] [employer]: Alexey Green MD Hematocrit (Bld) [Volume fraction] 28.3 % Low 36.3-47.1 [facility] Comment on above: Performed By: #### C DP, BMP #### [address] [address] [employer]: Alexey Green MD Hemoglobin (Bld) [Mass/Vol] 8.2 g/dL Low 11.9-15.1 [facility] Comment on above: Performed By: #### C DP, BMP #### [address] [address] [employer]: Alexey Green MD Immature granulocytes/100 WBC (Bld) 0 % Normal 0 [facility] Comment on above: Performed By: #### C DP, BMP #### [address] [address] [employer]: Alexey Green MD Lymphocytes (Bld) [#/Vol] 3.86 10*3/uL High 1.10-3.70 [facility] Comment on above: Performed By: #### C DP, BMP #### [facility] [address] [place] [address] [employer]: Alexey Green MD Lymphocytes/100 WBC (Bld) 33 % Normal 24-43 [facility] Comment on above: Performed By: #### C DP, BMP #### [address] [address] [employer]: Alexey Green MD MCH (RBC) [Entitic mass] 31.5 pg Normal 25.2-33.5 [facility] Comment on above: Performed By: #### C DP, BMP #### [address] [address] [employer]: Alexey Green MD MCHC (RBC) [Mass/Vol] 29.0 g/dL Normal 28.4-34.8 [facility] Comment on above: Performed By: #### C DP, BMP #### [address] [address] [employer]: Alexey Green MD MCV (RBC) [Entitic vol] 108.8 fL High 82.6-102.9 [facility] Comment on above: Performed By: #### C DP, BMP #### [address] [address] [employer]: Alexey Green MD Monocytes (Bld) [#/Vol] 1.19 10*3/uL Normal 0.10-1.20 [facility] Comment on above: Performed By: #### C DP, BMP #### [address] [address] [employer]: Alexey Green MD Monocytes/100 WBC (Bld) 10 % Normal 3-12 [facility] Comment on above: Performed By: #### C DP, BMP #### [address] [address] [employer]: Alexey Green MD Neutrophil (Seg) 54 % Normal 36-65 [facility] Comment on above: Performed By: #### C DP, BMP #### [address] [address] [employer]: Alexey Green MD NRBC Automated 0.0 per 100 WBC Normal 0.0 [facility] Comment on above: Performed By: #### C DP, BMP #### [address] [address] [employer]: Alexey Green MD Platelet mean volume (Bld) [Entitic vol] 11.8 fL Normal 8.1-13.5 [facility] Comment on above: Performed By: #### C DP, BMP #### [address] [address] [employer]: Alexey Green MD Platelets (Bld) [#/Vol] 148 10*3/uL Normal 138-453 [facility] Comment on above: Performed By: #### C DP, BMP #### [address] [address] [employer]: Alexey Green MD RBC (Bld) [#/Vol] 2.60 10*6/uL Low 3.95-5.11 [facility] Comment on above: Performed By: #### C DP, BMP #### [address] [address] [employer]: Alexey Green MD RBC morphology finding Nom (Bld) MACROCYTOSIS PRESENT Normal [facility] Comment on above: Performed By: #### C DP, BMP #### [address] [address] [employer]: Aleexy Green MD WBC (Bld) [#/Vol] 11.8 10*3/uL High 3.5-11.3 [facility] Comment on above: Performed By: #### C DP, BMP #### [address] [address] [employer]: Alexey Green MD Abs. Basophil 0.03 k/uL Normal 0.00-0.20 [facility] Comment on above: Performed By: #### C DP, BMP #### [address] [address] [employer]: Alexey Green MD Abs.Imm.Granulocyte 0.03 k/uL Normal 0.00-0.30 [facility] Comment on above: Performed By: #### C DP, BMP #### [place] [address] [employer]: Alexey Green MD Abs.Neutrophil (Seg) 6.37 k/uL Normal 1.50-8.10 [facility] Comment on above: Performed By: #### C DP, BMP #### [address] [address] [employer]: Alexey Green MD Basophils/100 WBC (Bld) 0 % Normal 0-2 [facility] Comment on above: Performed By: #### C DP, BMP #### [address] [address] [employer]: Alexey Green MD Eosinophils (Bld) [#/Vol] 0.30 10*3/uL Normal 0.00-0.44 [facility] Comment on above: Performed By: #### C DP, BMP #### [address] [address] [employer]: Alexey Green MD Eosinophils/100 WBC (Bld) 3 % Normal 1-4 [facility] Comment on above: Performed By: #### C DP, BMP #### [address] [address] [employer]: Alexey Green MD Erythrocyte distribution width (RBC) [Ratio] 13.5 % Normal 11.8-14.4 [facility] Comment on above: Performed By: #### C DP, BMP #### [address] [address] [employer]: Alexey Green MD Hematocrit (Bld) [Volume fraction] 28.3 % Low 36.3-47.1 [facility] Comment on above: Performed By: #### C DP, BMP #### [address] [address] [employer]: Alexey Green MD Hemoglobin (Bld) [Mass/Vol] 8.2 g/dL Low 11.9-15.1 [facility] Comment on above: Performed By: #### C DP, BMP #### [address] [address] [employer]: Alexey Green MD Immature granulocytes/100 WBC (Bld) 0 % Normal 0 [facility] Comment on above: Performed By: #### C DP, BMP #### [address] [address] [employer]: Alexey Green MD Lymphocytes (Bld) [#/Vol] 3.86 10*3/uL High 1.10-3.70 [facility] Comment on above: Performed By: #### C DP, BMP #### [address] [address] [employer]: Alexey Green MD Lymphocytes/100 WBC (Bld) 33 % Normal 24-43 [facility] Comment on above: Performed By: #### C DP, BMP #### [facility] [address] [place] [address] [employer]: Alexey Green MD MCH (RBC) [Entitic mass] 31.5 pg Normal 25.2-33.5 [facility] Comment on above: Performed By: #### C DP, BMP #### [address] [address] [employer]: Alexey Green MD MCHC (RBC) [Mass/Vol] 29.0 g/dL Normal 28.4-34.8 [facility] Comment on above: Performed By: #### C DP, BMP #### [address] [address] [employer]: Alexey Green MD MCV (RBC) [Entitic vol] 108.8 fL High 82.6-102.9 [facility] Comment on above: Performed By: #### C DP, BMP #### [address] [address] [employer]: Alexey Green MD Monocytes (Bld) [#/Vol] 1.19 10*3/uL Normal 0.10-1.20 [facility] Comment on above: Performed By: #### C DP, BMP #### [address] [address] [employer]: Alexey Green MD Monocytes/100 WBC (Bld) 10 % Normal 3-12 [facility] Comment on above: Performed By: #### C DP, BMP #### [address] [address] [employer]: Alexey Green MD Neutrophil (Seg) 54 % Normal 36-65 [facility] Comment on above: Performed By: #### C DP, BMP #### [address] [address] [employer]: Alexey Green MD NRBC Automated 0.0 per 100 WBC Normal 0.0 [facility] Comment on above: Performed By: #### C DP, BMP #### [address] [address] [employer]: Alexey Green MD Platelet mean volume (Bld) [Entitic vol] 11.8 fL Normal 8.1-13.5 [facility] Comment on above: Performed By: #### C DP, BMP #### [address] [address] [employer]: Alexey Green MD Platelets (Bld) [#/Vol] 148 10*3/uL Normal 138-453 [facility] Comment on above: Performed By: #### C DP, BMP #### [address] [address] [employer]: Alexey Green MD RBC (Bld) [#/Vol] 2.60 10*6/uL Low 3.95-5.11 [facility] Comment on above: Performed By: #### C DP, BMP #### [address] [address] [employer]: Alexey Green MD RBC morphology finding Nom (Bld) MACROCYTOSIS PRESENT Normal [facility] Comment on above: Performed By: #### C DP, BMP #### [address] [address] [employer]: Alexey Green MD WBC (Bld) [#/Vol] 11.8 10*3/uL High 3.5-11.3 [facility] Comment on above: Performed By: #### C DP, BMP #### [address] [address] [employer]: Alexey Green MD Calcium, Ionicon 07-25-2023 Calcium [Moles/Vol] 1.20 mmol/L Normal 1.13-1.33 [facility] Comment on above: Performed By: #### B MPX #### [address] [address] [employer]: Alexey Green MD Calcium [Moles/Vol] 1.20 mmol/L Normal 1.13-1.33 [facility] Comment on above: Performed By: #### C DP, BMP #### [address] [address] [employer]: Alexey Green MD Hgb/Hcton 07-25-2023 Hematocrit (Bld) [Volume fraction] 33.2 % Low 36.3-47.1 [facility] Comment on above: Performed By: #### U RNA, URTP, URCRE, UEOS #### [address] [address] [employer]: Alexey Green MD Performed By: #### H H #### [address] [address] [employer]: Alexey Green MD Hemoglobin (Bld) [Mass/Vol] 9.4 g/dL Low 11.9-15.1 [facility] Comment on above: Performed By: #### U RNA, URTP, URCRE, UEOS #### [address] [address] [employer]: Alexey Green MD Performed By: #### H H #### [address] [address] [employer]: Alexey Green MD Hematocrit (Bld) [Volume fraction] 26.7 % Low 36.3-47.1 [facility] Comment on above: Performed By: #### U RNA, URTP, URCRE, UEOS #### [address] [address] [employer]: Alexey Green MD Hemoglobin (Bld) [Mass/Vol] 7.6 g/dL Low 11.9-15.1 [facility] Comment on above: Performed By: #### U RNA, URTP, URCRE, UEOS #### [address] [address] [employer]: Alexey Green MD Hematocrit (Bld) [Volume fraction] 26.7 % Low 36.3-47.1 [facility] Comment on above: Performed By: #### H H #### [address] [address] [employer]: Alexey Green MD Hemoglobin (Bld) [Mass/Vol] 7.6 g/dL Low 11.9-15.1 [facility] Comment on above: Performed By: #### H H #### [address] [address] [employer]: Alexey Green MD Urinalysis, Routineon 2023 Bilirubin, SemiQt,Ur Negative Normal NEG [facility] Comment on above: Performed By: #### U MICAO, UA #### [address] [address] [employer]: Alexey Green MD Blood, Urine Negative Normal NEG [facility] Comment on above: Performed By: #### U MICAO, UA #### [address] [address] [employer]: Alexey Green MD Clarity (U) Clear Normal CLEAR [facility] Comment on above: Performed By: #### U MICAO, UA #### [address] [address] [employer]: Alexey Green MD Color (U) Yellow Normal YEL [facility] Comment on above: Performed By: #### U MICAO, UA #### [address] [address] [employer]: Alexey Green MD Glucose Ql (U) Negative Normal NEG [facility] Comment on above: Performed By: #### U MICAO, UA #### [address] [address] [employer]: Alexey Green MD Ketones Ql (U) Negative Normal NEG [facility] Comment on above: Performed By: #### U MICAO, UA #### [address] [address] [employer]: Alexey Green MD Leukocyte esterase Test strip Ql (U) MODERATE Abnormal NEG [facility] Comment on above: Performed By: #### U MICAO, UA #### [address] [address] [employer]: Alexey Green MD Nitrite,Ur Negative Normal NEG [facility] Comment on above: Performed By: #### U MICAO, UA #### [address] [address] [employer]: Alexey Green MD PH,Ur 5.0 Normal 5.0-8.0 [facility] Comment on above: Performed By: #### U MICAO, UA #### [facility] [address] [place] [address] [employer]: Alexey Green MD Protein Ql (U) 1+ mg/dL Abnormal NEG [facility] Comment on above: Performed By: #### U MICAO, UA #### [facility] [address] [place] [address] [employer]: Alexey Green MD Spec. [place],Ur 1.025 Normal 1.005-1.030 [facility] Comment on above: Performed By: #### U MICAO, UA #### [facility] [address] [place] [address] [employer]: Alexey Green MD Urobilinogen,Ur Normal Normal 0.0-1.0 [facility] Comment on above: Performed By: #### U KURTISO, UA #### [address] [address] [employer]: Alexey Green MD Bilirubin, SemiQt,Ur Negative Normal NEG [facility] Comment on above: Performed By: #### U KURTISO, UA #### [address] [address] [employer]: Alexey Green MD Blood, Urine Negative Normal NEG [facility] Comment on above: Performed By: #### U MICAO, UA #### [address] [address] [employer]: Alexey Green MD Clarity (U) Clear Normal CLEAR [facility] Comment on above: Performed By: #### U KUTRISO, UA #### [address] [address] [employer]: Alexey Green MD Color (U) Yellow Normal YEL [facility] Comment on above: Performed By: #### U MICAO, UA #### [address] [address] [employer]: Alexey Green MD Glucose Ql (U) Negative Normal NEG [facility] Comment on above: Performed By: #### U MICAO, UA #### [address] [address] [employer]: Alexey Green MD Ketones Ql (U) Negative Normal NEG [facility] Comment on above: Performed By: #### U MICAO, UA #### [address] [address] [employer]: Alexey Green MD Leukocyte esterase Test strip Ql (U) MODERATE Abnormal NEG [facility] Comment on above: Performed By: #### U MICAO, UA #### [facility] [address] [place] [address] [employer]: Alexey Green MD Nitrite,Ur Negative Normal NEG [facility] Comment on above: Performed By: #### U MICAO, UA #### [facility] [address] [place] [address] [employer]: Alexey Green MD PH,Ur 5.0 Normal 5.0-8.0 [facility] Comment on above: Performed By: #### U MICAO, UA #### [facility] [address] [place] [address] [employer]: Alexey Green MD Protein Ql (U) 1+ mg/dL Abnormal NEG [facility] Comment on above: Performed By: #### U KURTISO, UA #### [facility] [address] [place] [address] [employer]: Aleexy Green MD Spec. [place],Ur 1.025 Normal 1.005-1.030 [facility] Comment on above: Performed By: #### U MICAO, UA #### [address] [address] [employer]: Alexey Green MD Urobilinogen,Ur Normal Normal 0.0-1.0 [facility] Comment on above: Performed By: #### U MICAO, UA #### [facility] [address] [place] [address] [employer]: Alexey Green MD Urinalysis,Microon 4 Bacteria None Normal NONE [facility] Comment on above: Performed By: #### U MICAO, UA #### [facility] [address] [place] [address] [employer]: Alexey Green MD Casts None Normal 0-8 [facility] Comment on above: Result Comment: Refe rence range defined for non-centrifuged specimen. Performed By: #### U MICAO, UA #### [facility] [address] [place] [address] [employer]: Alexey Green MD Epithelial cells LM Ql (Urine sed) 2 TO 5 Normal 0-5 [facility] Comment on above: Performed By: #### U MICAO, UA #### [address] [address] [employer]: Alexey Green MD Urine RBC's 2 TO 5 Normal 0-4 [facility] Comment on above: Result Comment: Refe rence range defined for non-centrifuged specimen. Performed By: #### U MICAO, UA #### [address] [address] [employer]: Alexey Green MD Urine WBC's 20 TO 50 Normal 0-5 [facility] Comment on above: Performed By: #### U MICAO, UA #### [address] [address] [employer]: Alexey Green MD Bacteria None Normal NONE [facility] Comment on above: Performed By: #### U MICAO, UA #### [address] [address] [employer]: Alexey Green MD Casts None Normal 0-8 [facility] Comment on above: Result Comment: Refe rence range defined for non-centrifuged specimen. Performed By: #### U MICAO, UA #### [address] [address] [employer]: Alexey Green MD Epithelial cells LM Ql (Urine sed) 2 TO 5 Normal 0-5 [facility] Comment on above: Performed By: #### U MICAO, UA #### [facility] [address] [place] [address] [employer]: Alexey Green MD Urine RBC's 2 TO 5 Normal 0-4 [facility] Comment on above: Result Comment: Refe rence range defined for non-centrifuged specimen. Performed By: #### U MICAO, UA #### [address] [address] [employer]: Alexey Green MD Urine WBC's 20 TO 50 Normal 0-5 [facility] Comment on above: Performed By: #### U MICAO, UA #### [facility] [address] [place] [address] [employer]: Alexey Green MD Basic Metabolic Profon 07-23 Anion gap [Moles/Vol] 8 mmol/L Low 9-16 [facility] Comment on above: Performed By: #### U RNA, URTP, URCRE, UEOS #### [facility] [address] [place] [address] [employer]: Alexey Green MD Calcium [Mass/Vol] 8.3 mg/dL Low 8.6-10.4 [facility] Comment on above: Performed By: #### U RNA, URTP, URCRE, UEOS #### [facility] [address] [place] [address] [employer]: Alexey Green MD Chloride [Moles/Vol] 110 mmol/L High 98-107 [facility] Comment on above: Performed By: #### U RNA, URTP, URCRE, UEOS #### [facility] [address] [place] [address] [employer]: Alexey Green MD CO2 [Moles/Vol] 22 mmol/L Normal 20-31 [facility] Comment on above: Performed By: #### U RNA, URTP, URCRE, UEOS #### [facility] [address] [place] [address] [employer]: Alexey Green MD Creatinine [Mass/Vol] 2.0 mg/dL High 0.50-0.90 [facility] Comment on above: Performed By: #### U RNA, URTP, URCRE, UEOS #### [facility] [address] [place] [address] 20028 [employer]: Alexey Green MD GFR/1.73 sq M.predicted among non-blacks MDRD (S/P/Bld) [Vol rate/Area] 24 mL/min/{1.73_m2} Low >60 [facility] Comment on above: Result Comment: These results [...] #### U RNA, URTP, URCRE, UEOS #### [facility] [address] [place] [address] [employer]: Alexey Green MD Glucose [Mass/Vol] 108 mg/dL High 74-99 [facility] Comment on above: Performed By: #### U RNA, URTP, URCRE, UEOS #### [facility] [address] [place] [address] [employer]: Alexey Green MD Potassium [Moles/Vol] 5.0 mmol/L Normal 3.7-5.3 [facility] Comment on above: Result Comment: SPEC IMEN SLIGHTLY HEMOLYZED, RESULTS MAY BE ADVERSELY AFFECTED. Performed By: #### U RNA, URTP, URCRE, UEOS #### [facility] [address] [place] [address] [employer]: Alexey Green MD Sodium [Moles/Vol] 140 mmol/L Normal 136-145 [facility] Comment on above: Performed By: #### U RNA, URTP, URCRE, UEOS #### [address] [address] [employer]: Alexey Green MD Urea nitrogen [Mass/Vol] 41 mg/dL High 8-23 [facility] Comment on above: Performed By: #### U RNA, URTP, URCRE, UEOS #### [address] [address] [employer]: Alexey Green MD Anion gap [Moles/Vol] 8 mmol/L Low 9-16 [facility] Comment on above: Performed By: #### C DP, BMP #### [address] [address] [employer]: Alexey Green MD Calcium [Mass/Vol] 8.3 mg/dL Low 8.6-10.4 [facility] Comment on above: Performed By: #### C DP, BMP #### [address] [address] [employer]: Alexey Green MD Chloride [Moles/Vol] 110 mmol/L High 98-107 [facility] Comment on above: Performed By: #### C DP, BMP #### [facility] [address] [place] [address] [employer]: Alexey Green MD CO2 [Moles/Vol] 22 mmol/L Normal 20-31 [facility] Comment on above: Performed By: #### C DP, BMP #### [facility] [address] [place] [address] [employer]: Alexey Green MD Creatinine [Mass/Vol] 2.0 mg/dL High 0.50-0.90 [facility] Comment on above: Performed By: #### C DP, BMP #### [employer] [address] [place] [address] [employer]: Alexey Green MD GFR/1.73 sq M.predicted among non-blacks MDRD (S/P/Bld) [Vol rate/Area] 24 mL/min/{1.73_m2} Low >60 [facility] Comment on above: Result Comment: These results [...] Performed By: #### C DP, BMP #### [employer] [address] [place] [address] [employer]: Alexey Green MD Glucose [Mass/Vol] 108 mg/dL High 74-99 [facility] Comment on above: Performed By: #### C DP, BMP #### [facility] [address] [place] [address] [employer]: Alexey Green MD Potassium [Moles/Vol] 5.0 mmol/L Normal 3.7-5.3 [facility] Comment on above: Result Comment: SPEC IMEN SLIGHTLY HEMOLYZED, RESULTS MAY BE ADVERSELY AFFECTED. Performed By: #### C DP, BMP #### [employer] [address] [place] [address] [employer]: Alexey Green MD Sodium [Moles/Vol] 140 mmol/L Normal 136-145 [facility] Comment on above: Performed By: #### C DP, BMP #### [employer] [address] [place] [address]4737 [employer]: Alexey Green MD Urea nitrogen [Mass/Vol] 41 mg/dL High 8-23 [facility] Comment on above: Performed By: #### C DP, BMP #### [address] [address] [employer]: Alexey Green MD CBC with Diffon 07-24-2023 Abs. Basophil 0.04 k/uL Normal 0.00-0.20 [facility] Comment on above: Performed By: #### C DP #### [address] [address] [employer]: Alexey Green MD Abs.Imm.Granulocyte 0.03 k/uL Normal 0.00-0.30 [facility] Comment on above: Performed By: #### C DP #### [address] [address] [employer]: Alexey Green MD Abs.Neutrophil (Seg) 4.06 k/uL Normal 1.50-8.10 [facility] Comment on above: Performed By: #### C DP #### [address] [address] [employer]: Alexey Green MD Basophils/100 WBC (Bld) 0 % Normal 0-2 [facility] Comment on above: Performed By: #### C DP #### [address] [address] [employer]: Alexey Green MD Eosinophils (Bld) [#/Vol] 0.37 10*3/uL Normal 0.00-0.44 [facility] Comment on above: Performed By: #### C DP #### [address] [address] [employer]: Alexey Green MD Eosinophils/100 WBC (Bld) 4 % Normal 1-4 [facility] Comment on above: Performed By: #### C DP #### [address] [address] [employer]: Alexey Green MD Erythrocyte distribution width (RBC) [Ratio] 13.5 % Normal 11.8-14.4 [facility] Comment on above: Performed By: #### C DP #### [address] [address] [employer]: Alexey Green MD Hematocrit (Bld) [Volume fraction] 32.8 % Low 36.3-47.1 [facility] Comment on above: Performed By: #### C DP #### [address] [address] [employer]: Alexey Green MD Hemoglobin (Bld) [Mass/Vol] 9.4 g/dL Low 11.9-15.1 [facility] Comment on above: Performed By: #### C DP #### [place] [address] [employer]: Alexey Green MD Immature granulocytes/100 WBC (Bld) 0 % Normal 0 [facility] Comment on above: Performed By: #### C DP #### [place] [address] [employer]: Alexey Green MD Lymphocytes (Bld) [#/Vol] 4.07 10*3/uL High 1.10-3.70 [facility] Comment on above: Performed By: #### C DP #### [place] [address] [employer]: Alexey Green MD Lymphocytes/100 WBC (Bld) 42 % Normal 24-43 [facility] Comment on above: Performed By: #### C DP #### [place] [address] [employer]: Alexey Green MD MCH (RBC) [Entitic mass] 31.1 pg Normal 25.2-33.5 [facility] Comment on above: Performed By: #### C DP #### [address] [address] [employer]: Alexey Green MD MCHC (RBC) [Mass/Vol] 28.7 g/dL Normal 28.4-34.8 [facility] Comment on above: Performed By: #### C DP #### [address] [address] [employer]: Alexey Green MD MCV (RBC) [Entitic vol] 108.6 fL High 82.6-102.9 [facility] Comment on above: Performed By: #### C DP #### [address] [address] [employer]: Alexey Green MD Monocytes (Bld) [#/Vol] 1.24 10*3/uL High 0.10-1.20 [facility] Comment on above: Performed By: #### C DP #### [address] [address] [employer]: Alexey Green MD Monocytes/100 WBC (Bld) 13 % High 3-12 [facility] Comment on above: Performed By: #### C DP #### [address] [address] [employer]: Alexey Green MD Neutrophil (Seg) 41 % Normal 36-65 [facility] Comment on above: Performed By: #### C DP #### [address] [address] [employer]: Alexey Green MD NRBC Automated 0.0 per 100 WBC Normal 0.0 [facility] Comment on above: Performed By: #### C DP #### [address] [address] [employer]: Alexey Green MD Platelet mean volume (Bld) [Entitic vol] 11.6 fL Normal 8.1-13.5 [facility] Comment on above: Performed By: #### C DP #### [address] [address] [employer]: Alexey Green MD Platelets (Bld) [#/Vol] 168 10*3/uL Normal 138-453 [facility] Comment on above: Performed By: #### C DP #### [place] [address] [employer]: Alexey Green MD RBC (Bld) [#/Vol] 3.02 10*6/uL Low 3.95-5.11 [facility] Comment on above: Performed By: #### C DP #### [place] [address] [employer]: Alexey Green MD RBC morphology finding Nom (Bld) MACROCYTOSIS PRESENT Normal [facility] Comment on above: Performed By: #### C DP #### [address] [address] [employer]: Alexey Green MD WBC (Bld) [#/Vol] 9.8 10*3/uL Normal 3.5-11.3 [facility] Comment on above: Performed By: #### C DP #### [address] [address] [employer]: Alexey Green MD Abs. Basophil 0.04 k/uL Normal 0.00-0.20 [facility] Comment on above: Performed By: #### C DP #### [address] [address] [employer]: Alexey Green MD Abs.Imm.Granulocyte 0.03 k/uL Normal 0.00-0.30 [facility] Comment on above: Performed By: #### C DP #### [address] [address] [employer]: Alexey Green MD Abs.Neutrophil (Seg) 4.06 k/uL Normal 1.50-8.10 [facility] Comment on above: Performed By: #### C DP #### [address] [address] [employer]: Alexey Green MD Basophils/100 WBC (Bld) 0 % Normal 0-2 [facility] Comment on above: Performed By: #### C DP #### [address] [address] [employer]: Alexey Green MD Eosinophils (Bld) [#/Vol] 0.37 10*3/uL Normal 0.00-0.44 [facility] Comment on above: Performed By: #### C DP #### [address] [address] [employer]: Alexey Green MD Eosinophils/100 WBC (Bld) 4 % Normal 1-4 [facility] Comment on above: Performed By: #### C DP #### [address] [address] [employer]: Alexey Green MD Erythrocyte distribution width (RBC) [Ratio] 13.5 % Normal 11.8-14.4 [facility] Comment on above: Performed By: #### C DP #### [address] [address] [employer]: Alexey Green MD Hematocrit (Bld) [Volume fraction] 32.8 % Low 36.3-47.1 [facility] Comment on above: Performed By: #### C DP #### [address] [address] [employer]: Alexey Green MD Hemoglobin (Bld) [Mass/Vol] 9.4 g/dL Low 11.9-15.1 [facility] Comment on above: Performed By: #### C DP #### [address] [address] [employer]: Alexey Green MD Immature granulocytes/100 WBC (Bld) 0 % Normal 0 [facility] Comment on above: Performed By: #### C DP #### [place] [address] [employer]: Alexey Green MD Lymphocytes (Bld) [#/Vol] 4.07 10*3/uL High 1.10-3.70 [facility] Comment on above: Performed By: #### C DP #### [place] [address] [employer]: Alexey Green MD Lymphocytes/100 WBC (Bld) 42 % Normal 24-43 [facility] Comment on above: Performed By: #### C DP #### [place] [address] [employer]: Alexey Green MD MCH (RBC) [Entitic mass] 31.1 pg Normal 25.2-33.5 [facility] Comment on above: Performed By: #### C DP #### [place] [address] [employer]: Alexey Green MD MCHC (RBC) [Mass/Vol] 28.7 g/dL Normal 28.4-34.8 [facility] Comment on above: Performed By: #### C DP #### [address] [address] [employer]: Alexey Green MD MCV (RBC) [Entitic vol] 108.6 fL High 82.6-102.9 [facility] Comment on above: Performed By: #### C DP #### [address] [address] [employer]: Alexey Green MD Monocytes (Bld) [#/Vol] 1.24 10*3/uL High 0.10-1.20 [facility] Comment on above: Performed By: #### C DP #### [address] [address] [employer]: Alexey Green MD Monocytes/100 WBC (Bld) 13 % High 3-12 [facility] Comment on above: Performed By: #### C DP #### [address] [address] [employer]: Alexey Green MD Neutrophil (Seg) 41 % Normal 36-65 [facility] Comment on above: Performed By: #### C DP #### [address] [address] [employer]: Alexey Green MD NRBC Automated 0.0 per 100 WBC Normal 0.0 [facility] Comment on above: Performed By: #### C DP #### [address] [address] [employer]: Alexey Green MD Platelet mean volume (Bld) [Entitic vol] 11.6 fL Normal 8.1-13.5 [facility] Comment on above: Performed By: #### C DP #### [address] [address] [employer]: Alexey Green MD Platelets (Bld) [#/Vol] 168 10*3/uL Normal 138-453 [facility] Comment on above: Performed By: #### C DP #### [address] [address] [employer]: Alexey Green MD RBC (Bld) [#/Vol] 3.02 10*6/uL Low 3.95-5.11 [facility] Comment on above: Performed By: #### C DP #### [address] [address] [employer]: Alexey Green MD RBC morphology finding Nom (Bld) MACROCYTOSIS PRESENT Normal [facility] Comment on above: Performed By: #### C DP #### [address] [address] [employer]: Alexey Green MD WBC (Bld) [#/Vol] 9.8 10*3/uL Normal 3.5-11.3 [facility] Comment on above: Performed By: #### C DP #### [address] [address] [employer]: Alexey Green MD FLUORO FOR SURGICAL PROCEDUR ESon 07-24-2023 FLUORO FOR SURGICAL PROCEDURES Radiology exam is complete. No Radiologist dictation. Please follow up with ordering provider. Final result Normal [facility] FLUORO FOR SURGICAL PROCEDURES Radiology exam is complete. No Radiologist dictation. Please follow up with ordering provider. Final result Normal [facility] Glucose,Whole Bloodon 2023 Glucose [Mass/Vol] 102 mg/dL Normal 65-105 [facility] Glucose [Mass/Vol] 102 mg/dL Normal 65-105 [facility] Hgb/Hcton 07-24-2023 Hematocrit (Bld) [Volume fraction] 36.4 % Normal 36.3-47.1 [facility] Comment on above: Performed By: #### B MPX #### [address] [address] [employer]: Alexey Green MD Hemoglobin (Bld) [Mass/Vol] 10.6 g/dL Low 11.9-15.1 [facility] Comment on above: Performed By: #### B MPX #### [address] [id number] [employer]: Alexey Green MD Hematocrit (Bld) [Volume fraction] 36.4 % Normal 36.3-47.1 [facility] Comment on above: Performed By: #### D VIKTOR BOWLING UA #### [address] [id number] [employer]: Alexey Green MD Hemoglobin (Bld) [Mass/Vol] 10.6 g/dL Low 11.9-15.1 [facility] Comment on above: Performed By: #### D VIKTOR BOWLING UA #### [address] [phone] [employer]: Alexey Green MD Type + Screenon 07-24-2023 Type + Screen Sample Expiration 07/26/2023,2359 Arm Band Number [id number] ABO/Rh(D) A POSITIVE Antibody Screen NEGATIVE Unit Number [id number] Blood Component Type Leukocyte Reduced Red Cell Unit Division 00 Status of Unit TRANSFUSED Transfusion Status OK TO TRANSFUSE Crossmatch Result COMPATIBLE Normal [facility] Comment on above: Performed By: #### U RNA, URTP, URCRE, UEOS #### [address] [id number] [employer]: Alexey Green MD Type + Screen Sample Expiration 07/26/2023,2359 Arm Band Number BE [id number] ABO/Rh(D) A POSITIVE Antibody Screen NEGATIVE Unit Number [id number] Blood Component Type Leukocyte Reduced Red Cell Unit Division 00 Status of Unit TRANSFUSED Transfusion Status OK TO TRANSFUSE Crossmatch Result COMPATIBLE Normal [facility] Comment on above: Performed By: #### Tanja ADAMES UA #### [address] [phone] [employer]: Alexey Green MD XR FEMUR LEFT (MIN [...] Will Ramirez MD 07/24/23 Final result Normal [facility] XR FEMUR LEFT (MIN 2 VIEWS) EXAMINATION: [...] Will Ramirez MD 07/24/23 Final result Normal [facility] Albuminon 07-23-2023 Albumin [Mass/Vol] 3.6 g/dL Normal 3.5-5.2 [facility] Comment on above: Performed By: #### U RNA, URTP, URCRE, UEOS #### [facility] [address] [place], [place] [id number] [employer]: Alexey Green MD Albumin [Mass/Vol] 3.6 g/dL Normal 3.5-5.2 [facility] Comment on above: Performed By: #### U MICAO, UA #### [facility] [address] [place], [place] [phone] [employer]: Alexey Green MD CT CERVICAL SPINE WO [...] Wilber Robertson MD 07/23/23 Final result Normal [facility] CT CERVICAL SPINE WO CONTRAST EXAMINATION: CT [...] Wilber Robertson MD 07/23/23 Final result Normal [facility] CT CHEST ABDOMEN PELVIS W CO NTRASTon [...] Will Ramirez MD 07/23/23 Final result Normal [facility] CT CHEST ABDOMEN PELVIS W CONTRAST EXAMINATION: [...] Will Ramirez MD 07/23/23 Final result Normal [facility] CT HEAD WO CONTRASTon 2023 CT HEAD [...] Wilber Robertson MD 07/23/23 Final result Normal [facility] CT HEAD WO CONTRAST EXAMINATION: CT OF [...] Wilber Robertson MD 07/23/23 Final result Normal [facility] CT LUMBAR SPINE BONY RECONST RUCTIONon 07-23-2023 [...] destructive lesion is seen. DEGENERATIVE CHANGES: Diffuse ethj-ed-rtuizrtc degenerative changes of the lumbar spine predominate [...] Will Ramirez MD 07/23/23 Final result Normal [facility] CT LUMBAR SPINE BONY RECONSTRUCTION EXAMINATION: CT [...] destructive lesion is seen. DEGENERATIVE CHANGES: Diffuse aodv-tb-rbhedelc degenerative changes of the lumbar spine predominate [...] Will Ramirez MD 07/23/23 Final result Normal [facility] CT THORACIC SPINE BONY RECON STRUCTIONon 07-23-2023 [...] Will Ramirez MD 07/23/23 Final result Normal [facility] CT THORACIC SPINE BONY RECONSTRUCTION EXAMINATION: CT [...] Will Ramirez MD 07/23/23 Final result Normal [facility] Drug Scr, Abuse, Uron 2023 Fentanyl, Urine Positive Abnormal NEG [facility] Comment on above: Result Comment: Cuto ff: 5 ng/ml Performed By: #### U RNA, URTP, URCRE, UEOS #### [address] [address] [employer]: Alexey Green MD Interpretive Info Assay provides rapid clinical screening only. Presumptive positive results for Normal [facility] Comment on above: Result Comment: lega l purposes should be confirmed by another method. To request confirmation, please call the lab within 7 days of sample submission. Performed By: #### U RNA, URTP, URCRE, UEOS #### [facility] [address] [place] [address] [employer]: Alexey Green MD Amphetamine(s),Ur Negative Normal NEG [facility] Comment on above: Result Comment: Cuto ff: 1000 ng/mL Performed By: #### U RNA, URTP, URCRE, UEOS #### [employer] [address] [place] [address] [employer]: Alexey Green MD Barbiturate(s),Ur Negative Normal NEG [facility] Comment on above: Result Comment: Cuto ff: 200 ng/ml Performed By: #### U RNA, URTP, URCRE, UEOS #### [facility] [address] [place] [address] [employer]: Alexey Green MD Benzodiazepine(s) Negative Normal NEG [facility] Comment on above: Result Comment: Cuto ff: 200 ng/ml Performed By: #### U RNA, URTP, URCRE, UEOS #### [employer] [address] [place] [address] [employer]: Alexey Green MD Cannabinoid(s),Ur Negative Normal NEG [facility] Comment on above: Result Comment: Cuto ff: 50 ng/ml Performed By: #### U RNA, URTP, URCRE, UEOS #### [address] [address] [employer]: Alexey Green MD Cocaine Metabolite Negative Normal NEG [facility] Comment on above: Result Comment: Cuto ff: 300 ng/ml Performed By: #### U RNA, URTP, URCRE, UEOS #### [facility] [address] [place] [address] [employer]: Alexey Green MD Methadone Ql (U) Negative Normal NEG [facility] Comment on above: Result Comment: Cuto ff: 300 ng/ml Performed By: #### U RNA, URTP, URCRE, UEOS #### [address] [address] [employer]: Alexey Green MD Opiate(s), Ur Negative Normal NEG [facility] Comment on above: Result Comment: Cuto ff: 300 ng/ml Performed By: #### U RNA, URTP, URCRE, UEOS #### [address] [address] [employer]: Alexey Green MD Oxycodone, Urine Negative Normal NEG [facility] Comment on above: Result Comment: Cuto ff: 100 ng/ml Performed By: #### U RNA, URTP, URCRE, UEOS #### [address] [address] [employer]: Alexey Green MD Phencyclidine, Ur Negative Normal NEG [facility] Comment on above: Result Comment: Cuto ff: 25 ng/ml Performed By: #### U RNA, URTP, URCRE, UEOS #### [facility] [address] [place] [address] [phone] [employer]: Alexey Green MD Fentanyl, Urine Positive Abnormal NEG [facility] Comment on above: Result Comment: Cuto ff: 5 ng/ml Performed By: #### VIKTOR RODAS, UA #### [facility] [address] [place] [address] [employer]: Alexey Green MD Interpretive Info Assay provides rapid clinical screening only. Presumptive positive results for Normal [facility] Comment on above: Result Comment: lega l purposes should be confirmed by another method. To request confirmation, please call the lab within 7 days of sample submission. Performed By: #### VIKTOR RODAS UA #### [facility] [address] [place] [address] [employer]: Alexey Green MD Amphetamine(s),Ur Negative Normal NEG [facility] Comment on above: Result Comment: Cuto ff: 1000 ng/mL Performed By: #### VIKTOR RODAS, UA #### [employer] [address] [place] [address] [employer]: Alexey Green MD Barbiturate(s),Ur Negative Normal NEG [facility] Comment on above: Result Comment: Cuto ff: 200 ng/ml Performed By: #### VIKTOR RODAS, UA #### [employer] [address] [place] [address] [employer]: Alexey Green MD Benzodiazepine(s) Negative Normal NEG [facility] Comment on above: Result Comment: Cuto ff: 200 ng/ml Performed By: #### VIKTOR RODAS, UA #### [employer] [address] [place] [address] [employer]: Alexey Green MD Cannabinoid(s),Ur Negative Normal NEG [facility] Comment on above: Result Comment: Cuto ff: 50 ng/ml Performed By: #### VIKTOR RODAS, UA #### [facility] [address] [place] [address] [employer]: Alexey Green MD Cocaine Metabolite Negative Normal NEG [facility] Comment on above: Result Comment: Cuto ff: 300 ng/ml Performed By: #### Alana BOWLING BRIDGETO, UA #### [employer] [facility] [address] [place] [address] [employer]: Alexey Green MD Methadone Ql (U) Negative Normal NEG [facility] Comment on above: Result Comment: Cuto ff: 300 ng/ml Performed By: #### Alana BOWLING VIKTOR, UA #### [employer] [facility] [address] [place] [address] [employer]: Alexey Green MD Opiate(s), Ur Negative Normal NEG [facility] Comment on above: Result Comment: Cuto ff: 300 ng/ml Performed By: #### Alana BOWLING [facility], UA #### [employer] [address] [place] [address] [employer]: Alexey Green MD Oxycodone, Urine Negative Normal NEG [facility] Comment on above: Result Comment: Cuto ff: 100 ng/ml Performed By: #### Alana BOWLING BRIDGETO, UA #### [employer] [address] [place] [address] [employer]: Alexey Green MD Phencyclidine, Ur Negative Normal NEG [facility] Comment on above: Result Comment: Cuto ff: 25 ng/ml Performed By: #### Alana BOWLING BRIDGETO, UA #### [employer] [facility] [address] [place] [address] [employer]: Alexey Green MD Gl Hemostasis TEG w/Lysison 07-23-2023 Fibrinogen, Func TEG 41.5 mm High 15.0-32.0 [facility] Comment on above: Performed By: #### B MPX #### [facility] [address] [place] [address] [employer]: Alexey Green MD LY30 (Lysis) TEG 0.0 % Normal 0.0-2.6 [facility] Comment on above: Performed By: #### B MPX #### [address] [address] [employer] Roller: Alexey Green MD MA Rapid TEG 71.7 mm High 52.0-70 [facility] Comment on above: Performed By: #### B MPX #### [address] [address] [place] [employer]: Alexey Green MD R(Reaction Time) TEG 4.0 min Low 4.6-9.1 [facility] Comment on above: Performed By: #### B MPX #### [address] [address] [place] [employer]: Alexey Green MD Fibrinogen, Func TEG 41.5 mm High 15.0-32.0 [facility] Comment on above: Performed By: #### C DP, BMP #### [address] [address] [place] [employer]: Alexey Green MD LY30 (Lysis) TEG 0.0 % Normal 0.0-2.6 [facility] Comment on above: Performed By: #### C DP, BMP #### [facility] [address] [place] [address] [place] [employer]: Alexey Green MD MA Rapid TEG 71.7 mm High 52.0-70 [facility] Comment on above: Performed By: #### C DP, BMP #### [facility] [address] [place] [address] [place] [employer]: Alexey Green MD R(Reaction Time) TEG 4.0 min Low 4.6-9.1 [facility] Comment on above: Performed By: #### C DP, BMP #### [address] [address] [place] [employer]: Alexey Green MD Glucose,Whole Bloodon 2023 Glucose [Mass/Vol] 154 mg/dL High 65-105 [facility] Glucose [Mass/Vol] 116 mg/dL High 65-105 [facility] Glucose [Mass/Vol] 154 mg/dL High 65-105 [facility] Glucose [Mass/Vol] 116 mg/dL High 65-105 [facility] Trauma Profileon 07-23-2023 Anion gap [Moles/Vol] 8 mmol/L Low 9-16 [facility] Comment on above: Performed By: #### U RNA, URTP, URCRE, UEOS #### [address] [address] [employer] [employer]: Alexey Green MD Chloride [Moles/Vol] 111 mmol/L High 98-107 [facility] Comment on above: Performed By: #### U RNA, URTP, URCRE, UEOS #### [address] [address] [employer] [employer]: Alexey Green MD CO2 [Moles/Vol] 24 mmol/L Normal 20-31 [facility] Comment on above: Performed By: #### U RNA, URTP, URCRE, UEOS #### [address] [address] [employer]: Alexey Green MD Creatinine [Mass/Vol] 2.2 mg/dL High 0.50-0.90 [facility] Comment on above: Performed By: #### U RNA, URTP, URCRE, UEOS #### [facility] [address] [place] [address] [employer]: Alexey Green MD Ethanol [Mass/Vol] mg/dL Normal <10 [facility] Comment on above: Performed By: #### U RNA, URTP, URCRE, UEOS #### [address] [address] [employer]: Alexey Green MD Ethanol percent <0.010 Normal <0.010 [facility] Comment on above: Performed By: #### U RNA, URTP, URCRE, UEOS #### [address] [address] [employer]: Alexey Green MD GFR/1.73 sq M.predicted among non-blacks MDRD (S/P/Bld) [Vol rate/Area] 22 mL/min/{1.73_m2} Low >60 [facility] Comment on above: Result Comment: These results [...] #### U RNA, URTP, URCRE, UEOS #### [address] [address] [place]: Alexey Green MD Glucose [Mass/Vol] 112 mg/dL High 74-99 [facility] Comment on above: Performed By: #### U RNA, URTP, URCRE, UEOS #### [address] [address] [employer]: Alexey Green MD Potassium [Moles/Vol] 4.5 mmol/L Normal 3.7-5.3 [facility] Comment on above: Performed By: #### U RNA, URTP, URCRE, UEOS #### [address] [address] [place] [employer]: Alexey Green MD Sodium [Moles/Vol] 143 mmol/L Normal 136-145 [facility] Comment on above: Performed By: #### U RNA, URTP, URCRE, UEOS #### [address] [address] [employer]: Alexey Green MD Urea nitrogen [Mass/Vol] 44 mg/dL High 8-23 [facility] Comment on above: Performed By: #### U RNA, URTP, URCRE, UEOS #### [address] [address] [place]: Alexey Green MD aPTT Coag (Bld) [Time] 29.0 s Normal 23.0-36.5 [facility] Comment on above: Result Comment: IV Heparin Therapy Range: 66.0-92.0 sec Performed By: #### U RNA, URTP, URCRE, UEOS #### [address] [address] [place]: Alexey Green MD INR Coag (PPP) [Relative time] 1.8 {INR} Normal [facility] Comment on above: Result Comment: Therapeutic Range: Moderate Anticoagulant Intensity: INR = 2.0-3.0 High Anticoagulant Intensity: INR = 2.5-3.5 Performed By: #### U RNA, URTP, URCRE, UEOS #### [facility] [address] [place] [address] [employer]: Alexey Green MD PT Coag (PPP) [Time] 20.6 s High 11.7-14.9 [facility] Comment on above: Performed By: #### U RNA, URTP, URCRE, UEOS #### [facility] [address] [place] [address] [employer]: Alexey Green MD Body Temp. 37.0 Normal [facility] Comment on above: Performed By: #### U RNA, URTP, URCRE, UEOS #### [facility] [address] [place] [address] [employer]: Alexey Green MD Carboxy Hgb 1.6 % Normal 0-5 [facility] Comment on above: Result Comment: Reference Range: Non-Smokers 0-2% Average Smoker 2-4% Heavy Smoker <10% Performed By: #### U RNA, URTP, URCRE, UEOS #### [address] [address] [employer]: Alexey Green MD FIO2 INFORMATION NOT PROVIDED [facility] Comment on above: Performed By: #### U RNA, URTP, URCRE, UEOS #### [address] [address] [place]: Alexey Green MD HCO3 (Bld) [Moles/Vol] 25.6 mmol/L Normal 24-30 [facility] Comment on above: Performed By: #### U RNA, URTP, URCRE, UEOS #### [address] [address] [employer]: Alexey Green MD Negative Base Excess 2.0 mmol/L Normal 0.0-2.0 [facility] Comment on above: Performed By: #### U RNA, URTP, URCRE, UEOS #### [facility] [address] [place] [address] [employer]: Alexey Green MD Oxygen saturation in Blood 67.2 % Normal 60.0-85.0 [facility] Comment on above: Performed By: #### U RNA, URTP, URCRE, UEOS #### [facility] [address] [place] [address] [employer]: Alexey Green MD pCO2 59.6 mm Hg High 39-55 [facility] Comment on above: Performed By: #### U RNA, URTP, URCRE, UEOS #### [facility] [address] [place] [address] [employer]: Alexey Green MD pH (Bld) 7.255 [pH] Low 7.320-7.420 [facility] Comment on above: Performed By: #### U RNA, URTP, URCRE, UEOS #### [facility] [address] [place] [address] [employer]: Alexey Green MD pO2 35.4 mm Hg Normal 30-50 [facility] Comment on above: Performed By: #### U RNA, URTP, URCRE, UEOS #### [address] [address] [employer]: Alexey Green MD Erythrocyte distribution width (RBC) [Ratio] 13.4 % Normal 11.8-14.4 [facility] Comment on above: Performed By: #### U RNA, URTP, URCRE, UEOS #### [facility] [address] [place] [address] [employer]: Alexey Green MD Hematocrit (Bld) [Volume fraction] 39.3 % Normal 36.3-47.1 [facility] Comment on above: Performed By: #### U RNA, URTP, URCRE, UEOS #### [facility] [address] [place] [address] [employer]: Alexey Green MD Hemoglobin (Bld) [Mass/Vol] 11.8 g/dL Low 11.9-15.1 [facility] Comment on above: Performed By: #### U RNA, URTP, URCRE, UEOS #### [facility] [address] [place] [address] [employer]: Alexey Green MD MCH (RBC) [Entitic mass] 31.4 pg Normal 25.2-33.5 [facility] Comment on above: Performed By: #### U RNA, URTP, URCRE, UEOS #### [address] [address] [employer]: Alexey Green MD MCHC (RBC) [Mass/Vol] 30.0 g/dL Normal 28.4-34.8 [facility] Comment on above: Performed By: #### U RNA, URTP, URCRE, UEOS #### [address] [address] [employer]: Alexey Green MD MCV (RBC) [Entitic vol] 104.5 fL High 82.6-102.9 [facility] Comment on above: Performed By: #### U RNA, URTP, URCRE, UEOS #### [address] [address] [employer]: Alexey Green MD NRBC Automated 0.0 per 100 WBC Normal 0.0 [facility] Comment on above: Performed By: #### U RNA, URTP, URCRE, UEOS #### [address] [address] [employer]: Alexey Green MD Platelet mean volume (Bld) [Entitic vol] 11.5 fL Normal 8.1-13.5 [facility] Comment on above: Performed By: #### U RNA, URTP, URCRE, UEOS #### [address] [address] [employer]: Alexey Green MD Platelets (Bld) [#/Vol] 198 10*3/uL Normal 138-453 [facility] Comment on above: Performed By: #### U RNA, URTP, URCRE, UEOS #### [facility] [address] [place] [address] [employer]: Alexey Green MD RBC (Bld) [#/Vol] 3.76 10*6/uL Low 3.95-5.11 [facility] Comment on above: Performed By: #### U RNA, URTP, URCRE, UEOS #### [facility] [address] [place] [address] [employer]: Alexey Green MD WBC (Bld) [#/Vol] 10.4 10*3/uL Normal 3.5-11.3 [facility] Comment on above: Performed By: #### U RNA, URTP, URCRE, UEOS #### [facility] [address] [place] [address] [employer]: Alexey Green MD Blood Bank BILL FOR SERVICES PERFORMED Normal [facility] Comment on above: Performed By: #### U RNA, URTP, URCRE, UEOS #### [address] [address] [employer]: Alexey Green MD Anion gap [Moles/Vol] 8 mmol/L Low 9-16 [facility] Comment on above: Performed By: #### U MICAO UA #### [facility] [address] [place] [address] [employer]: Alexey Green MD Chloride [Moles/Vol] 111 mmol/L High 98-107 [facility] Comment on above: Performed By: #### U KURTISO, UA #### [facility] [address] [place] [address] [employer]: Alexey Green MD CO2 [Moles/Vol] 24 mmol/L Normal 20-31 [facility] Comment on above: Performed By: #### U MICAO UA #### [facility] [address] [place] [address] [employer]: Alexey Green MD Creatinine [Mass/Vol] 2.2 mg/dL High 0.50-0.90 [facility] Comment on above: Performed By: #### U MICAO, UA #### [facility] [address] [place] [address] [employer]: Alexey Green MD Ethanol [Mass/Vol] mg/dL Normal <10 [facility] Comment on above: Performed By: #### U MICAO, UA #### [facility] [address] [place] [address] [employer]: Alexey Green MD Ethanol percent <0.010 Normal <0.010 [facility] Comment on above: Performed By: #### U MICAO, UA #### [address] [address] [employer]: Alexey Green MD GFR/1.73 sq M.predicted among non-blacks MDRD (S/P/Bld) [Vol rate/Area] 22 mL/min/{1.73_m2} Low >60 [facility] Comment on above: Result Comment: These results [...] Performed By: #### U MICAO, UA #### [facility] [address] [place] [address] [employer]: Alexey Green MD Glucose [Mass/Vol] 112 mg/dL High 74-99 [facility] Comment on above: Performed By: #### U MICAO, UA #### [facility] [place] [address] [employer]: Alexey Green MD Potassium [Moles/Vol] 4.5 mmol/L Normal 3.7-5.3 [facility] Comment on above: Performed By: #### ALYSSA SILVER #### [facility] [address] [place] [address] [place] [employer]: Alexey Green MD Sodium [Moles/Vol] 143 mmol/L Normal 136-145 [facility] Comment on above: Performed By: #### Tanja ADAMES UA #### [facility] [address] [place] [address] [employer]: Alexey Green MD Urea nitrogen [Mass/Vol] 44 mg/dL High 8-23 [facility] Comment on above: Performed By: #### ALYSSA SILVER #### [facility] [address] [place] [address] [employer]: Alexey Green MD aPTT Coag (Bld) [Time] 29.0 s Normal 23.0-36.5 [facility] Comment on above: Result Comment: IV Heparin Therapy Range: 66.0-92.0 sec Performed By: #### ALYSSA SILVER #### [facility] [address] [place] [address] [employer]: Alexey Green MD INR Coag (PPP) [Relative time] 1.8 {INR} Normal [facility] Comment on above: Result Comment: Therapeutic Range: Moderate Anticoagulant Intensity: INR = 2.0-3.0 High Anticoagulant Intensity: INR = 2.5-3.5 Performed By: #### ALYSSA SILVER #### [facility] [address] [place] [address] [employer]: Alexey Green MD PT Coag (PPP) [Time] 20.6 s High 11.7-14.9 [facility] Comment on above: Performed By: #### Tanja ADAMES UA #### [employer] [address] [place] [address] [employer]: Alexey Green MD Body Temp. 37.0 Normal [facility] Comment on above: Performed By: #### U ZACARIAS UA #### [facility] [address] [place] [address] [employer]: Alexey Green MD Carboxy Hgb 1.6 % Normal 0-5 [facility] Comment on above: Result Comment: Reference Range: Non-Smokers 0-2% Average Smoker 2-4% Heavy Smoker <10% Performed By: #### U ZACARIAS UA #### [facility] [address] [place] [address] [employer]: Alexey Green MD FIO2 INFORMATION NOT PROVIDED [facility] Comment on above: Performed By: #### U ZACARIAS UA #### [facility] [address] [place] [address] [employer]: Alexey Green MD HCO3 (Bld) [Moles/Vol] 25.6 mmol/L Normal 24-30 [facility] Comment on above: Performed By: #### U ZACARIAS UA #### [facility] [address] [place] [address] [employer]: Alexey Green MD Negative Base Excess 2.0 mmol/L Normal 0.0-2.0 [facility] Comment on above: Performed By: #### U ZACARIAS UA #### [facility] [address] [place] [address] [employer]: Alexey Green MD Oxygen saturation in Blood 67.2 % Normal 60.0-85.0 [facility] Comment on above: Performed By: #### U ZACARIAS UA #### [facility] [address] [place] [address] [employer]: Alexey Green MD pCO2 59.6 mm Hg High 39-55 [facility] Comment on above: Performed By: #### U ZACARIAS UA #### [address] [address] [employer]: Alexey Green MD pH (Bld) 7.255 [pH] Low 7.320-7.420 [facility] Comment on above: Performed By: #### U ZACARIAS UA #### [facility] [address] [place] [address] [employer]: Alexey Green MD pO2 35.4 mm Hg Normal 30-50 [facility] Comment on above: Performed By: #### Tanja ADAMES UA #### [address] [address] [employer]: Alexey Green MD Erythrocyte distribution width (RBC) [Ratio] 13.4 % Normal 11.8-14.4 [facility] Comment on above: Performed By: #### Tanja ADMAES UA #### [address] [address] [employer]: Alexey Green MD Hematocrit (Bld) [Volume fraction] 39.3 % Normal 36.3-47.1 [facility] Comment on above: Performed By: #### Tanja ADAMES UA #### [address] [address] [employer]: Alexey Green MD Hemoglobin (Bld) [Mass/Vol] 11.8 g/dL Low 11.9-15.1 [facility] Comment on above: Performed By: #### U ZACARIAS UA #### [facility] [address] [place] [address] [employer]: Alexey Green MD MCH (RBC) [Entitic mass] 31.4 pg Normal 25.2-33.5 [facility] Comment on above: Performed By: #### Tanja ADAMES UA #### [address] [address] [employer]: Alexey Green MD MCHC (RBC) [Mass/Vol] 30.0 g/dL Normal 28.4-34.8 [facility] Comment on above: Performed By: #### U ZACARIAS UA #### [address] [address] [employer]: Alexey Green MD MCV (RBC) [Entitic vol] 104.5 fL High 82.6-102.9 [facility] Comment on above: Performed By: #### U ZACARIAS UA #### [address] [address] [employer]: Alexey Green MD NRBC Automated 0.0 per 100 WBC Normal 0.0 [facility] Comment on above: Performed By: #### U ZACARIAS UA #### [facility] [address] [place] [address] [employer]: Alexey Green MD Platelet mean volume (Bld) [Entitic vol] 11.5 fL Normal 8.1-13.5 [facility] Comment on above: Performed By: #### U ZACARIAS UA #### [address] [address] [employer]: Alexey Green MD Platelets (Bld) [#/Vol] 198 10*3/uL Normal 138-453 [facility] Comment on above: Performed By: #### U ZACARIAS UA #### [address] [address] [employer]: Alexey Green MD RBC (Bld) [#/Vol] 3.76 10*6/uL Low 3.95-5.11 [facility] Comment on above: Performed By: #### U ZACARIAS UA #### [address] [address] [employer]: Alexey Green MD WBC (Bld) [#/Vol] 10.4 10*3/uL Normal 3.5-11.3 [facility] Comment on above: Performed By: #### U MICAO, UA #### [address] [address] [employer]: Alexey Green MD Blood Bank BILL FOR SERVICES PERFORMED Normal [facility] Comment on above: Performed By: #### U MICAO, UA #### [address] [address] [employer]: Alexey Green MD Urinalysis, Routineon 2023 Bilirubin, SemiQt,Ur Negative Normal NEG [facility] Comment on above: Performed By: #### U RNA, URTP, URCRE, UEOS #### [address] [address] [employer]: Alexey Green MD Blood, Urine Negative Normal NEG [facility] Comment on above: Performed By: #### U RNA, URTP, URCRE, UEOS #### [address] [address] [employer]: Alexey Green MD Clarity (U) Clear Normal CLEAR [facility] Comment on above: Performed By: #### U RNA, URTP, URCRE, UEOS #### [address] [address] [employer]: Alexey Green MD Color (U) Yellow Normal YEL [facility] Comment on above: Performed By: #### U RNA, URTP, URCRE, UEOS #### [address] [address] [employer]: Alexey Green MD Glucose Ql (U) Negative Normal NEG [facility] Comment on above: Performed By: #### U RNA, URTP, URCRE, UEOS #### [address] [address] [employer]: Alexey Green MD Ketones Ql (U) Negative Normal NEG [facility] Comment on above: Performed By: #### U RNA, URTP, URCRE, UEOS #### [address] [address] [employer]: Alexey Green MD Leukocyte esterase Test strip Ql (U) SMALL Abnormal NEG [facility] Comment on above: Performed By: #### U RNA, URTP, URCRE, UEOS #### [address] [address] [employer]: Alexey Green MD Nitrite,Ur Negative Normal NEG [facility] Comment on above: Performed By: #### U RNA, URTP, URCRE, UEOS #### [address] [address] [employer]: Alexey Green MD PH,Ur 5.5 Normal 5.0-8.0 [facility] Comment on above: Performed By: #### U RNA, URTP, URCRE, UEOS #### [address] [address] [employer]: Alexey Green MD Protein Ql (U) TRACE Abnormal NEG [facility] Comment on above: Performed By: #### U RNA, URTP, URCRE, UEOS #### [address] [address] [employer]: Alexey Green MD Spec. [place],Ur 1.029 Normal 1.005-1.030 [facility] Comment on above: Performed By: #### U RNA, URTP, URCRE, UEOS #### [address] [address] [employer]: Alexey Green MD Urobilinogen,Ur Normal Normal 0.0-1.0 [facility] Comment on above: Performed By: #### U RNA, URTP, URCRE, UEOS #### [address] [address] [employer]: Alexey Green MD Bilirubin, SemiQt,Ur Negative Normal NEG [facility] Comment on above: Performed By: #### Alana BOWLING [facility], UA #### [address] [address] [employer]: Alexey Green MD Blood, Urine Negative Normal NEG [facility] Comment on above: Performed By: #### Alana [facility], UA #### [address] [address] [employer]: Alexey Green MD Clarity (U) Clear Normal CLEAR [facility] Comment on above: Performed By: #### [facility] #### [facility] [address] [place] [address] [employer]: Alexey Green MD Color (U) Yellow Normal YEL [facility] Comment on above: Performed By: #### Alana [facility] #### [facility] [address] [place] [address] [employer]: Alexey Green MD Glucose Ql (U) Negative Normal NEG [facility] Comment on above: Performed By: #### BRIDGET RODASO, UA #### [facility] [address] [place] [address] [employer]: Alexey Green MD Ketones Ql (U) Negative Normal NEG [facility] Comment on above: Performed By: #### BRIDGET RODASO, UA #### [facility] [address] [place] [address] [employer]: Alexey Green MD Leukocyte esterase Test strip Ql (U) SMALL Abnormal NEG [facility] Comment on above: Performed By: #### Alana [facility]ING [facility] UA #### [facility] [address] [place] [address] [employer]: Alexey Green MD Nitrite,Ur Negative Normal NEG [facility] Comment on above: Performed By: #### Alana [facility] UA #### [facility] [address] [place] [address] [employer]: Alexey Green MD PH,Ur 5.5 Normal 5.0-8.0 [facility] Comment on above: Performed By: #### Alana [facility] UA #### [facility] [address] [place] [address] [employer]: Alexey Green MD Protein Ql (U) TRACE Abnormal NEG [facility] Comment on above: Performed By: #### Alana [facility] UA #### [facility] [address] [place] [address] [employer]: Alexey Green MD Spec. [place],Ur 1.029 Normal 1.005-1.030 [facility] Comment on above: Performed By: #### Alana [facility] UA #### [facility] [address] [place] [address] [employer]: Alexey Green MD Urobilinogen,Ur Normal Normal 0.0-1.0 [facility] Comment on above: Performed By: #### Alana [facility], UA #### [facility] [address] [place] [address] [employer]: Alexey Green MD Urinalysis,Microon 4 Bacteria MANY Abnormal NONE [facility] Comment on above: Performed By: #### U RNA, URTP, URCRE, UEOS #### [address] [address] [employer]: MD Kalli Chen None Normal 0-8 [facility] Comment on above: Result Comment: Refe rence range defined for non-centrifuged specimen. Performed By: #### U RNA, URTP, URCRE, UEOS #### [address] [address] [employer]: Alexey Green MD Epithelial cells LM Ql (Urine sed) None Normal [address] [place] [address] Comment on above: Performed By: #### U RNA, URTP, URCRE, UEOS #### [address] [address] [employer]: Alexey Green MD Urine RBC's None Normal 0-4 [facility] Comment on above: Result Comment: Refe rence range defined for non-centrifuged specimen. Performed By: #### U RNA, URTP, URCRE, UEOS #### [address] [address] [employer]: Alexey Green MD Urine WBC's 20 TO 50 Normal 0-5 [facility] Comment on above: Performed By: #### U RNA, URTP, URCRE, UEOS #### [address] [address] [employer]: Alexey Green MD Bacteria MANY Abnormal NONE [facility] Comment on above: Performed By: #### D AU, UMICAO, UA #### [address] [address] [employer]: Alexey Green MD Casts None Normal 0-8 [facility] Comment on above: Result Comment: Refe rence range defined for non-centrifuged specimen. Performed By: #### [facility], [facility] #### [facility] [address] [place] [address] [employer]: Alexey Green MD Epithelial cells LM Ql (Urine sed) None Normal 0-5 [facility] Comment on above: Performed By: #### D TAWNYA UMKIMO, UA #### [facility] [address] [place] [address] [employer]: Alexey Green MD Urine RBC's None Normal 0-4 [facility] Comment on above: Result Comment: Refe rence range defined for non-centrifuged specimen. Performed By: #### D TAWNYA UMKIMO, UA #### [employer] [address] [place] [address] [employer]: Alexey Green MD Urine WBC's 20 TO 50 Normal 0-5 [facility] Comment on above: Performed By: #### D TAWNYA [facility], UA #### [employer] [address] [place] [address] [employer]: Alexey Green MD Vitamin D 25 OHon 07-23-2023 Vitamin D 25 OH 26.9 ng/mL Low 30.0-100.0 [facility] Comment on above: Result Comment: Reference Range: Vitamin D status Range Deficiency <20 ng/mL Mild Deficiency 20-30 ng/mL Sufficiency 30-100 ng/mL Toxicity >100 ng/mL Performed By: #### B MPX #### [employer] [address] [place] [address] [employer]: Alexey Green MD Vitamin D 25 OH 26.9 ng/mL Low 30.0-100.0 [facility] Comment on above: Result Comment: Reference Range: Vitamin D status Range Deficiency <20 ng/mL Mild Deficiency 20-30 ng/mL Sufficiency 30-100 ng/mL Toxicity >100 ng/mL Performed By: #### C DP, BMP #### [facility] [address] [place] [address] [employer]: Alexey Green MD XR FEMUR LEFT (MIN [...] Will Ramirez MD 07/23/23 Final result Normal [facility] XR FEMUR LEFT (MIN 2 VIEWS) EXAMINATION: [...] Will Ramirez MD 07/23/23 Final result Normal [facility] XR HIP 2-3 VW W PELVIS LEFTo [...] Will Ramirez MD 07/23/23 Final result Normal [facility] XR HIP 2-3 VW W PELVIS LEFT [...] Will Ramirez MD 07/23/23 Final result Normal [facility] XR HIP LEFT (2-3 VIEWS)on XR HIP [...] Will Ramirez MD 07/23/23 Final result Normal [facility] XR HIP LEFT (2-3 VIEWS) EXAMINATION: ONE [...] Will Ramirez MD 07/23/23 Final result Normal [facility] XR KNEE LEFT (1-2 VIEWS)on 0 07-23-2023 [...] Will Ramirez MD 07/23/23 Final result Normal [facility] XR KNEE LEFT (1-2 VIEWS) EXAMINATION: ONE [...] Will Ramirez MD 07/23/23 Final result Normal [facility] XR KNEE LEFT (3 VIEWS)on XR KNEE [...] Will Ramirez MD 07/23/23 Final result Normal [facility] XR KNEE LEFT (3 VIEWS) EXAMINATION: ONE [...] noted reflecting calcific atherosclerosis. Interpreted by: Will Ramriez MD Signed by: Will Ramirez MD 07/23/23 Final result Normal [facility] Brain Natri. Peptideon 07-02 Natriuretic peptide B (Bld) [Mass/Vol] 1489 pg/mL High 0-300 [facility] Comment on above: Result Comment: An a ge-independent cutoff point of 300 pg/ml has a 98% negative predictive value excluding acute heart failure. Performed By: #### C DP, BMP #### [facility] [address] [place] [address] [employer]: Alexey Green MD CBC with Diffon 07-03-2023 Abs. Basophil 0.06 k/uL Normal 0.00-0.20 [facility] Comment on above: Performed By: #### C DP, BMP #### [address] [address] [employer]: Alexey Green MD Abs.Imm.Granulocyte <0.03 Normal 0.00-0.30 [facility] Comment on above: Performed By: #### C DP, BMP #### [place] [address] [employer]: Alexey Green MD Abs.Neutrophil (Seg) 3.23 k/uL Normal 1.50-8.10 [facility] Comment on above: Performed By: #### C DP, BMP #### [place] [address] [employer]: Alexey Green MD Basophils/100 WBC (Bld) 1 % Normal 0-2 [facility] Comment on above: Performed By: #### C DP, BMP #### [address] [address] [employer]: Alexey Green MD Eosinophils (Bld) [#/Vol] 0.67 10*3/uL High 0.00-0.44 [facility] Comment on above: Performed By: #### C DP, BMP #### [address] [address] [employer]: Alexey Green MD Eosinophils/100 WBC (Bld) 9 % High 1-4 [facility] Comment on above: Performed By: #### C DP, BMP #### [address] [address] [employer]: Alexey Green MD Erythrocyte distribution width (RBC) [Ratio] 13.6 % Normal 11.8-14.4 [facility] Comment on above: Performed By: #### C DP, BMP #### [address] [address] [employer]: Alexye Green MD Hematocrit (Bld) [Volume fraction] 39.3 % Normal 36.3-47.1 [facility] Comment on above: Performed By: #### C DP, BMP #### [address] [address] [employer]: Alexey Green MD Hemoglobin (Bld) [Mass/Vol] 11.8 g/dL Low 11.9-15.1 [facility] Comment on above: Performed By: #### C DP, BMP #### [address] [address] [employer]: Alexey Green MD Immature granulocytes/100 WBC (Bld) 0 % Normal 0 [facility] Comment on above: Performed By: #### C DP, BMP #### [address] [address] [employer]: Alexey Green MD Lymphocytes (Bld) [#/Vol] 3.23 10*3/uL Normal 1.10-3.70 [facility] Comment on above: Performed By: #### C DP, BMP #### [address] [address] [employer]: Alexey Green MD Lymphocytes/100 WBC (Bld) 40 % Normal 24-43 [facility] Comment on above: Performed By: #### C DP, BMP #### [address] [address] [employer]: Alexey Green MD MCH (RBC) [Entitic mass] 31.1 pg Normal 25.2-33.5 [facility] Comment on above: Performed By: #### C DP, BMP #### [address] [address] [employer]: Alexey Green MD MCHC (RBC) [Mass/Vol] 30.0 g/dL Normal 28.4-34.8 [facility] Comment on above: Performed By: #### C DP, BMP #### [address] [address] [employer]: Alexey Green MD MCV (RBC) [Entitic vol] 103.7 fL High 82.6-102.9 [facility] Comment on above: Performed By: #### C DP, BMP #### [address] [address] [employer]: Alexey Green MD Monocytes (Bld) [#/Vol] 0.68 10*3/uL Normal 0.10-1.20 [facility] Comment on above: Performed By: #### C DP, BMP #### [address] [address] [employer]: Alexey Green MD Monocytes/100 WBC (Bld) 9 % Normal 3-12 [facility] Comment on above: Performed By: #### C DP, BMP #### [address] [address] [employer]: Alexey Green MD Neutrophil (Seg) 41 % Normal 36-65 [facility] Comment on above: Performed By: #### C DP, BMP #### [address] [address] [employer]: Alexey Green MD NRBC Automated 0.0 per 100 WBC Normal 0.0 [facility] Comment on above: Performed By: #### C DP, BMP #### [facility] [address] [place] [address] [employer]: Alexey Green MD Platelet mean volume (Bld) [Entitic vol] 12.2 fL Normal 8.1-13.5 [facility] Comment on above: Performed By: #### C DP, BMP #### [address] [address] [employer]: Alexey Green MD Platelets (Bld) [#/Vol] 199 10*3/uL Normal 138-453 [facility] Comment on above: Performed By: #### C DP, BMP #### [address] [address] [employer]: Alexey Green MD RBC (Bld) [#/Vol] 3.79 10*6/uL Low 3.95-5.11 [facility] Comment on above: Performed By: #### C DP, BMP #### [address] [address] [employer]: Alexey Green MD RBC morphology finding Nom (Bld) MACROCYTOSIS PRESENT Normal [facility] Comment on above: Performed By: #### C DP, BMP #### [address] [address] [employer]: Alexey Green MD WBC (Bld) [#/Vol] 7.9 10*3/uL Normal 3.5-11.3 [facility] Comment on above: Performed By: #### C DP, BMP #### [address] [address] [employer]: Alexey Green MD Hemoglobin A1Con 07-03-2023 Glucose [Mass/Vol] 137 mg/dL Normal [facility] Comment on above: Result Comment: The ADA and AACC recommend providing the estimated average glucose result to permit better patient understanding of their HBA1c result. Performed By: #### C DP, BMP #### [address] [address] [employer]: Alexey Green MD HbA1c (Bld) [Mass fraction] 6.4 % High 4.0-6.0 [facility] Comment on above: Performed By: #### C DP, BMP #### [employer] [address] [place], [place] [id number] [employer]: Alexey Green MD TSH w/reflex to FT4on 2023 Thyroid Stim. Horm. 2.56 uIU/mL Normal 0.27-4.20 [facility] Comment on above: Performed By: #### D AU, UMICAO, UA #### [employer] [address] [place] [address] [employer]: Alexey Green MD Protime-INRon 05-29-2023 INR Coag (Bld) [Relative time] 2.2 {INR} [facility] PT Coag (PPP) [Time] 26.8 s seconds [facility] [employer] Protime-INRon 04-25-2023 INR Coag (Bld) [Relative time] 2.7 {INR} [facility] [employer] PT Coag (PPP) [Time] 32.[address] s [address] [facility] Protime-INRon 04-13-2023 PT Coag (PPP) [Time] 25.2 s seconds [facility] INR Coag (Bld) [Relative time] 2.1 {INR} [facility] INR in Platelet poor plasma by Coagulation assayOrdered By: Chase Méndez on 02-26-2023 INR Coag (PPP) [Relative time] 2.2 {INR} [facility] Comment on above: INR Therapeutic [...] Coag (PPP) [Relative time] 2.2 {INR} Normal [facility] Comment on above: Result Comment: [...] heart valves: 3 - 4.5 PERFORMED BY: [place] [address] [facility] SHIPPING RECEIVING CLERK REZA ORTIZ M.D. Performed By: #### P T #### [facility] [address] [place] [address] PT Coag (PPP) [Time] 25.8 s High 9.0-12.9 [facility] Comment on above: Result Comment: A matocrit value greater than 55% may lead to inaccurate results in coagulation testing. Patients having hematocrit values >55% require a special collection tube for coagulation studies. Please contact the laboratory at [phone] for redraw instructions. Performed By: #### P T #### [facility] [address] [place] [address] Prothrombin time (PT)Ordered By: Chase Méndez on 02-26-2023 PT Coag (PPP) [Time] 25.8 s 9.0-12.9 [facility] Comment on above: A hematocrit value g reater than 55% may lead to inaccurate results in coagulation testing. Patients having hematocrit values >55% require a special collection tube for coagulation studies. Please contact the laboratory at [phone] for redraw instructions. INR in Platelet poor plasma by Coagulation assayOrdered By: Chase Méndez on 02-15-2023 INR Coag (PPP) [Relative time] 1.2 {INR} [facility] Comment on above: INR Therapeutic [...] Coag (PPP) [Relative time] 1.2 {INR} Normal [facility] Comment on above: Result Comment: [...] heart valves: 3 - 4.5 PERFORMED BY: [place] [address] PATHOLOGIST SHIPPING RECEIVING CLERK REZA ORTIZ M.D. Performed By: #### P T #### [facility] [address] [place], [place] [id number] [facility] PT Coag (PPP) [Time] 14.5 s High 9.0-12.9 [facility] Comment on above: Result Comment: A he matocrit value greater than 55% may lead to inaccurate results in coagulation testing. Patients having hematocrit values >55% require a special collection tube for coagulation studies. Please contact the laboratory at [phone] for redraw instructions. Performed By: #### P T #### [facility] [address] [place], [place] [address] [facility] Prothrombin time (PT)Ordered By: Chase Méndez on 02-15-2023 PT Coag (PPP) [Time] 14.5 s 9.0-12.9 [facility] Comment on above: A hematocrit value g reater than 55% may lead to inaccurate results in coagulation testing. Patients having hematocrit values >55% require a special collection tube for coagulation studies. Please contact the laboratory at [phone] for redraw instructions. Ambulatory Visit Summaryon 0 [...] regurgitation Varicose veins of lower extremity Normal [facility] General Surgery Office/Clini c Noteon 12-05-2022 [...] Immunizations Vaccine Date Status Comments SARS-CoV-2 (COVID-19) mRNAMUL.[id number] 07/25/2022 Recorded SARS-CoV-2 (COVID-19) mRNA-1273 vaccine 07/10/2022 (more content not included)... Normal [facility] Comment on above: Result Comment: Elec tronically Signed By: JAY BRYAN, Tom Jimenez\.br\Date and Time Signed: 12/05/22 15:41 EDT Pathology Noteon 11-29-2022 Pathology Note [id number]:127 [facility] Ambulatory Visit Summaryon 0 11-22-2022 Ambulatory Visit Summary GEMMA LEWIS :1935 Visit Date:11/22/2022 Ambulatory Visit Instructions Your Care Team Attending Physician - JAY RBYAN, Tom Jimenez Primary Care Physician - Chase [...] regurgitation Varicose veins of lower extremity Normal [facility] General Surgery Office/Clini c Noteon 11-22-2022 General [...] Years., 11/14 (more content not included)... Normal [facility] Comment on above: Result Comment: Elec tronically [...] Jimenez Where: General Surgery Jay/Debi Young Normal [facility] Office Visiton 10-31-2022 Follow-up visit [id number] aCrrie Lewis 1935 F Date Provider Department Center 10/31/2022 ROB ARAMBULA TYSON Young [facility] No family history on file Level of Service:73953 CT OFFICE/OUTPATIENT ESTABLISHED MOD MDM 30-39 MIN Reason for Visit and Comments: Follow-up [688621] Normal [facility] Physician Referralon 023 Physician Referral [id number]:127 Normal [facility] Physician Referral [id number]:127 Normal [facility] PROTIMEon 08-02-2022 INR Coag (PPP) [Relative time] 1.12 {INR} Normal [facility] Comment on above: Performed By: #### P OCGLUC #### [facility] [address] [place] [address] Dr. Nancy Montalvo INR GUIDELINES SEE BELOW Normal [facility] Comment on above: Result Comment: ADITYA RED INR: 2.0 - 3.0 CONDITIONS NOT LISTED BELOW 2.5 - 3.5 FOR PROSTHETIC HEART VALVE REPLACEMENT 2.5 - 3.5 RECURRENT THROMBOSIS Performed By: #### P OCGLUC #### [facility] [address] [place] [address] Dr. Nancy Montalvo PT Coag (PPP) [Time] 11.8 s Critically high 9.0-11.6 [facility] Comment on above: Performed By: #### P OCGLUC #### [facility] [address] [place] [address] Dr. Nancy Montalvo PROTIMEon 07-26-2022 INR Coag (PPP) [Relative time] 1.33 {INR} Normal [facility] Comment on above: Performed By: #### P OCGLUC #### [facility] [address] [place] [address] Dr. Nancy Montalvo INR GUIDELINES SEE BELOW [place] [facility] Comment on above: Result Comment: ADITYA RED INR: 2.0 - 3.0 CONDITIONS NOT LISTED BELOW 2.5 - 3.5 FOR PROSTHETIC HEART VALVE REPLACEMENT 2.5 - 3.5 RECURRENT THROMBOSIS Performed By: #### P OCGLUC #### [facility] [address] [place] [address] Dr. Nancy Montalvo PT Coag (PPP) [Time] 13.9 s Critically high 9.0-11.6 [facility] Comment on above: Performed By: #### P OCGLUC #### [facility] [address] [place] [address] Dr. Nancy Montalvo PROTIMEon 07-24-2022 INR Coag (PPP) [Relative time] 1.41 {INR} Normal [facility] Comment on above: Performed By: #### C VDTBH #### [facility] [address] [place] [address] Dr. Nancy Montalvo INR GUIDELINES SEE BELOW Normal [facility] Comment on above: Result Comment: ADITYA RED INR: 2.0 - 3.0 CONDITIONS NOT LISTED BELOW 2.5 - 3.5 FOR PROSTHETIC HEART VALVE REPLACEMENT 2.5 - 3.5 RECURRENT THROMBOSIS Performed By: #### C VDTBH #### [facility] [address] [place] [address] Dr. Nancy Montalvo PT Coag (PPP) [Time] 14.7 s Critically high 9.0-11.6 [facility] Comment on above: Performed By: #### C VDTBH #### [facility] [address] [place] [address] Dr. Nancy Montalvo CBC W MANUAL DIFFon 07-22-19 23 ANISOCYTOSIS 1+ Normal [facility] Comment on above: Performed By: #### C VDTBH #### [facility] [address] [place] [address] Dr. Nancy Montalvo ATYPICAL LYMPH # Normal [facility] Comment on above: Performed By: #### C VDTBH #### [facility] [address] [place] [address] Dr. Nancy Montalvo ATYPICAL LYMPH % Normal [facility] Comment on above: Performed By: #### C VDTBH #### [facility] [address] [place] [address] Dr. Nancy Montalvo BAND # 0.2 103/ul Normal 0.0-0.3 [facility] Comment on above: Performed By: #### C VDTBH #### [facility] [address] [place] [address] Dr. Nancy Montalvo BAND % 2 % Normal 0-5 [facility] Comment on above: Performed By: #### C VDTBH #### [facility] [address] [place] [address] Dr. Nancy Montalvo BASOM # 0.00 103/ul Normal 0.00-0.10 [facility] Comment on above: Performed By: #### C VDTBH #### [facility] [address] [place] [address] Dr. Nancy Montalvo BASOM % 0.0 % Critically low 0.2-2.0 [facility] Comment on above: Performed By: #### C VDTBH #### [facility] [address] [place] [address] Dr. Nancy Montalvo BLAST # Normal [facility] Comment on above: Performed By: #### C VDTBH #### [facility] [address] [place] [address] Dr. Nancy Montalvo BLAST % Normal [facility] Comment on above: Performed By: #### C VDTBH #### [facility] [address] [place] [address] Dr. Nancy Montalvo CORRECTED WBC Normal 4.0-11.0 [facility] Comment on above: Performed By: #### C VDTBH #### [facility] [address] [place] [address] Dr. Nancy Montalvo EOS # 0.10 103/ul Normal 0.00-0.70 [facility] Comment on above: Performed By: #### C VDTBH #### [facility] [address] [place] [address] Dr. Nancy Montalvo EOS% 1.0 % Normal 0.9-7.0 [facility] Comment on above: Performed By: #### C VDTBH #### [facility] [address] [place] [address] Dr. Nancy Montalvo GIANT PLATELETS SEEN Normal [facility] Comment on above: Performed By: #### C VDTBH #### [facility] [address] [place] [address] Dr. Nancy Montalvo HCT 30.2 % Critically low 36.0-48.0 [facility] Comment on above: Performed By: #### C VDTBH #### [facility] [address] [place] [address] Dr. Nancy Montalvo HGB 9.7 g/dl Critically low 12.0-16.0 [facility] Comment on above: Performed By: #### C VDTBH #### [facility] [address] [place] [address] Dr. Nancy Montalvo LYMPHM # 1.72 103/ul Normal 1.20-3.80 [facility] Comment on above: Performed By: #### C VDTBH #### [facility] [address] [place] [address] Dr. Nancy Montalvo LYMPHM% 17.0 % Critically low 20.5-60.0 [facility] Comment on above: Performed By: #### C VDTBH #### [facility] [address] [place] [address] Dr. Nancy Montalvo MCH 31.5 pg Normal 26.7-34.0 [facility] Comment on above: Performed By: #### C VDTBH #### [facility] [address] [place] [address] Dr. Nancy Montalvo MCHC 32.1 g/dl Normal 29.9-35.2 [facility] Comment on above: Performed By: #### C VDTBH #### [facility] [address] [place] [address] Dr. Nancy Montalvo MCV 98.1 fL Normal 81.0-99.0 [facility] Comment on above: Performed By: #### C VDTBH #### [facility] [address] [place] [address] Dr. Nancy Montalvo METAMYELOCYTE # Normal [facility] Comment on above: Performed By: #### C VDTBH #### [facility] [address] [place] [address] Dr. Nancy Montalvo METAMYELOCYTE % Normal [facility] Comment on above: Performed By: #### C VDTBH #### [facility] [address] [place] [address] Dr. Nancy Montalvo MONOM# 0.61 103/ul Normal 0.30-0.80 [facility] Comment on above: Performed By: #### C VDTBH #### [facility] [address] [address] [address] Nancy Montalvo MONOM% 6.0 % Normal 1.7-12.0 [facility] Comment on above: Performed By: #### C VDTBH #### [facility] [address] [address] [address] Nancy Montalvo MPV 11.3 fL Normal 9.5-13.5 [facility] Comment on above: Performed By: #### C VDTBH #### [facility] [address] [place] [address] Dr. Nancy Montalvo MYELOCYTE # Normal [facility] Comment on above: Performed By: #### C VDTBH #### [facility] [address] [place] [address] Dr. Nancy Montalvo MYELOCYTE % Normal [facility] Comment on above: Performed By: #### C VDTBH #### [facility] [address] [place] [address] Dr. Nancy Montalvo NRBC Normal [facility] Comment on above: Performed By: #### C VDTBH #### [facility] [address] [address] [address] Nancy Montalvo OVALOCYTES SLIGHT Normal [facility] Comment on above: Performed By: #### C VDTBH #### [facility] [address] [place] [address] Dr. Nancy Montalvo PLT 277 103/ul Normal 150-450 [facility] Comment on above: Performed By: #### C VDTBH #### [facility] [address] [place] [address] Dr. Nancy Montalvo POIKILOCYTOSIS SLIGHT Normal [facility] Comment on above: Performed By: #### C VDTBH #### [facility] [address] [place] [address] Dr. Nancy Montalvo RBC 3.08 106/ul Critically low 4.20-5.40 [facility] Comment on above: Performed By: #### C VDTBH #### [facility] [address] [place] [address] Dr. Nancy Montalvo RDW 15.8 % Critically high 11.0-15.0 [facility] Comment on above: Performed By: #### C VDTBH #### [facility] [address] [place] [address] Dr. Nancy Montalvo SEG # 7.47 103/ul Critically high 1.40-6.50 [facility] Comment on above: Performed By: #### C VDTBH #### [facility] [address] [place] [address] Dr. Nancy Montalvo SEG % 74.0 % Normal 43.0-75.0 [facility] Comment on above: Performed By: #### C VDTBH #### [facility] [address] [place] [address] Dr. Nancy Montalvo TEAR DROP CELLS SLIGHT Normal [facility] Comment on above: Performed By: #### C VDTBH #### [facility] [address] [place] [address] Dr. Nancy Montalvo WBC 10.1 103/ul Normal 4.0-11.0 [facility] Comment on above: Performed By: #### C VDTBH #### [facility] Laboratory [address] [place] [address] Dr. Nancy Montalvo CULTURE URINEon 07-21-2022 CULTURE URINE Culture Observations : NO GROWTH. Normal [facility] Comment on above: Performed By: #### A 1C #### [facility] Laboratory [address] [place] [address] Dr. Nancy Montalvo PROF 14(COMP METB)on 023 Albumin [Mass/Vol] 1.6 g/dL Critically low 3.4-5.0 Th [facility] Comment on above: Performed By: #### C VDTBH #### [facility] Laboratory [address] [place] [address] Dr. Nancy Montalvo Albumin/Globulin [Mass ratio] 0.4 {ratio} Normal [facility] Comment on above: Performed By: #### C VDTBH #### [facility] [address] [place] [address] Dr. Nancy Montalvo ALP [Catalytic activity/Vol] 112 U/L Normal 46-116 [facility] Comment on above: Performed By: #### C VDTBH #### [facility] [address] [place] [address] Dr. Nancy Montalvo ALT [Catalytic activity/Vol] 36 U/L Normal 14-59 [facility] Comment on above: Performed By: #### C VDTBH #### [facility] [address] [place] [address] Dr. Nancy Montalvo Anion gap [Moles/Vol] 12.2 mmol/L Normal [facility] Comment on above: Performed By: #### C VDTBH #### [facility] [address] [place] [address] Dr. Nancy Montalvo AST [Catalytic activity/Vol] 29 U/L Normal 15-37 [facility] Comment on above: Performed By: #### C VDTBH #### [facility] [address] [place] [address] Dr. Nancy Montalvo Bilirubin [Mass/Vol] 0.2 mg/dL Normal 0.2-1.0 [facility] Comment on above: Performed By: #### C VDTBH #### [facility] Laboratory [address] [place] [address] Dr. Nancy Montalvo Calcium [Mass/Vol] 8.2 mg/dL Critically low 8.5-10.1 Th [facility] Comment on above: Performed By: #### C VDTBH #### [facility] [address] [place] [address] Dr. Nancy Montalvo Chloride [Moles/Vol] 110 mmol/L Critically high 98-107 [facility] Comment on above: Performed By: #### C VDTBH #### [facility] [address] [place] [address] Dr. Nancy Montalvo CO2 [Moles/Vol] 21.1 mmol/L Normal 21.0-32.0 [facility] Comment on above: Performed By: #### C VDTBH #### [facility] [address] [place] [address] Dr. Nancy Montalvo Creatinine [Mass/Vol] 1.83 mg/dL Critically high 0.55-1.02 [facility] Comment on above: Performed By: #### C VDTBH #### [facility] Laboratory [address] [address] [address] Nancy Montalvo EGFR-AF CUBAN 32 mL/min/1.73m2 Critically low >=60 [facility] Comment on above: Performed By: #### C VDTBH #### [facility] [address] [address] [address] Nancy Montalvo EGFR-NON AF CUBAN 26 mL/min/1.73m2 Critically low >=60 [facility] Comment on above: Performed By: #### C VDTBH #### [facility] [address] [place] [address] Dr. Nancy Montalvo Globulin (S) [Mass/Vol] 3.9 g/dL Normal [facility] Comment on above: Performed By: #### C VDTBH #### [facility] [address] [address] [address] Nancy Montalvo Glucose [Mass/Vol] 123 mg/dL Critically high 74-106 [facility] Comment on above: Performed By: #### C VDTBH #### [facility] [address] [place] [address] Dr. Nancy Montalvo Potassium [Moles/Vol] 3.3 mmol/L Critically low 3.5-5.1 [facility] Comment on above: Performed By: #### C VDTBH #### [facility] [address] [place] [address] Dr. Nancy Montalvo Protein [Mass/Vol] 5.5 g/dL Critically low 6.4-8.2 Th [facility] Comment on above: Performed By: #### C VDTBH #### [facility] [address] [place] [address] Dr. Nancy Montalvo Sodium [Moles/Vol] 140 mmol/L Normal 136-[address] [facility] Comment on above: Performed By: #### C VDTBH #### [facility] [address] [place] [address] Dr. Nancy Montalvo Urea nitrogen [Mass/Vol] 27.0 mg/dL Critically high 7.0-18.0 [facility] Comment on above: Performed By: #### C VDTBH #### [facility] [address] [place] [address] Dr. Nancy Montalvo Urea nitrogen/Creatinine [Mass ratio] 14.8 mg/mg Normal [facility] Comment on above: Performed By: #### C VDTBH #### [facility] [address] [place] [address] Dr. Nancy Montalvo PROTIMEon 07-21-2022 INR Coag (PPP) [Relative time] 3.20 {INR} Normal [facility] Comment on above: Performed By: #### P OCGLUC #### [facility] [address] [place] [address] Dr. Nancy Montalvo INR GUIDELINES SEE BELOW Normal [facility] Comment on above: Result Comment: ADITYA RED INR: 2.0 - 3.0 CONDITIONS NOT LISTED BELOW 2.5 - 3.5 FOR PROSTHETIC HEART VALVE REPLACEMENT 2.5 - 3.5 RECURRENT THROMBOSIS Performed By: #### P OCGLUC #### [facility] [address] [place] [address] Dr. Nancy Montalvo PT Coag (PPP) [Time] 31.8 s Critically high 9.0-11.6 [facility] Comment on above: Performed By: #### P OCGLUC #### [facility] [address] [place] [address] Dr. Nancy Montalvo UA (CLEAN/CATCH) SHOE CUTTER/MICRO I F IND.on 07-21-2022 Bilirubin Ql (U) Negative Normal NEGATIVE [facility] Comment on above: Performed By: #### C MP #### [facility] [address] [place] [address] Dr. Nancy Montalvo Clarity (U) CLEAR Normal CLEAR [facility] Comment on above: Performed By: #### C MP #### [facility] [address] [place] [address] Dr. Nancy Montalvo Color (U) LT. YELLOW Normal YELLOW [facility] Comment on above: Performed By: #### C MP #### [facility] [address] [address] [address] Nancy Montalvo Glucose Ql (U) 500 mg/dl Abnormal NEGATIVE [facility] Comment on above: Performed By: #### C MP #### [facility] [address] [address] [address] Nancy Montalvo Hemoglobin Ql (U) TRACE-INTACT Abnormal NEGATIVE [facility] Comment on above: Performed By: #### C MP #### [facility] [address] [place] [address] Dr. Nancy Montalvo Ketones Ql (U) Negative Normal NEGATIVE [facility] Comment on above: Performed By: #### C MP #### [facility] [address] [place] [address] Dr. Nancy Montalvo LEUKOCYTES LARGE Abnormal NEGATIVE [facility] Comment on above: Performed By: #### C MP #### [facility] [address] [place] [address] Dr. Nancy Montalvo Nitrite Ql (U) Negative Normal NEGATIVE [facility] Comment on above: Performed By: #### C MP #### [facility] [address] [place] [address] Dr. Nancy Montalvo pH (U) 5.5 [pH] Normal 5-9 [facility] Comment on above: Performed By: #### C MP #### [facility] [address] [place] [address] Dr. Nancy Montalvo SPEC GRAVITY 1.010 Normal 1.005-<=1.0 25 [facility] Comment on above: Performed By: #### C MP #### [facility] [address] [place] [address] Dr. Nancy Montalvo UA PROTEIN 30 mg/dl Abnormal NEGATIVE/ TRACE [facility] Comment on above: Performed By: #### C MP #### [facility] [address] [place] [address] Dr. Nancy Montalvo UR MICRO IND INDICATED Normal [facility] Comment on above: Performed By: #### C MP #### [facility] [address] [place] [address] Dr. Nancy Montalvo Urobilinogen Qn (U) 0.2 {Grant'U}/dL Normal 0.2 - 1. 0 [facility] Comment on above: Performed By: #### C MP #### [facility] [address] [place] [address] Dr. Nancy Montalvo URINE MICROSCOPIC ONLYon BACTERIA MODERATE Abnormal NONE SEEN The [facility] Comment on above: Performed By: #### C MP #### [facility] [address] [place] [address] Dr. Nancy Montalvo Bacteria identified Cx Nom (U) INDICATED Normal [facility] Comment on above: Performed By: #### C MP #### [facility] [address] [place] [address] Dr. Nancy Montalvo CAST NONE SEEN Normal NONE SEEN [facility] Comment on above: Performed By: #### C MP #### [facility] [address] [place] [address] Dr. Nancy Montalvo Crystals LM Nom (Urine sed) NONE SEEN Normal NONE SEEN [facility] Comment on above: Performed By: #### C MP #### [facility] [address] [place] [address] Dr. Nancy Montalvo Epithelial cells LM Ql (Urine sed) FEW Abnormal NONE SEEN /RARE [facility] Comment on above: Performed By: #### C MP #### [facility] [address] [place] [address] Dr. Nancy Montalvo MUCOUS NONE SEEN Normal NONE SEEN [facility] Comment on above: Performed By: #### C MP #### [facility] [address] [place] [address] Dr. Nancy Montalvo RBC 2-5 Abnormal 0-2 [facility] Comment on above: Performed By: #### C MP #### [facility] [address] [place] [address] Dr. Nancy Montalvo WBC (U) [#/Vol] /uL Abnormal NONE SEEN [facility] Comment on above: Performed By: #### C MP #### [facility] [address] [place] [address] Dr. Nancy Montalvo YEAST PRESENT Abnormal NONE SEEN [facility] Comment on above: Performed By: #### C MP #### [facility] [address] [place] [address] Dr. Nancy Montalvo PROTIMEon 07-19-2022 INR Coag (PPP) [Relative time] 8.00 {INR} Critically high [facility] Comment on above: Performed By: #### P OCGLUC #### [facility] [address] [place] [address] Dr. Nancy Montalvo INR GUIDELINES SEE BELOW Normal [facility] Comment on above: Result Comment: ADITYA RED INR: 2.0 - 3.0 CONDITIONS NOT LISTED BELOW 2.5 - 3.5 FOR PROSTHETIC HEART VALVE REPLACEMENT 2.5 - 3.5 RECURRENT THROMBOSIS Performed By: #### P OCGLUC #### [facility] [address] [place] [address] Dr. Nancy Montalvo PT Coag (PPP) [Time] 90.0 s Critically high 9.0-11.6 [facility] Comment on above: Performed By: #### P OCGLUC #### [facility] [address] [place] [address] Dr. Nancy Montalvo CBC AUTO DIFFon 07-14-2022 BASO # 0.0 103/ul Normal 0.0-0.1 [facility] Comment on above: Performed By: #### P OCGLUC #### [facility] [address] [place] [address] Dr. Nancy Montalvo Basophils/100 WBC (Bld) 0.2 % Normal 0.2-2.0 [facility] Comment on above: Performed By: #### P OCGLUC #### [facility] [address] [place] [address] Dr. Nancy Montalvo EO # 0.1 103/ul Normal 0.0-0.7 [facility] Comment on above: Performed By: #### P OCGLUC #### [facility] [address] [place] [address] Dr. Nancy Montalvo Eosinophils/100 WBC (Bld) 0.4 % Critically low 0.9-7.0 [facility] Comment on above: Performed By: #### P OCGLUC #### [facility] [address] [address] [address] Nancy Montalvo Erythrocyte distribution width (RBC) [Ratio] 14.0 % Normal 11.0-15.0 [facility] Comment on above: Performed By: #### P OCGLUC #### [facility] [address] [place] [address] Dr. Nancy Montalvo Hematocrit (Bld) [Volume fraction] 30.8 % Critically low 36.0-48.0 [facility] Comment on above: Performed By: #### P OCGLUC #### [facility] [address] [place] [address] Dr. Nancy Montalvo Hemoglobin (Bld) [Mass/Vol] 9.5 g/dL Critically low 12.0-16.0 [facility] Comment on above: Performed By: #### P OCGLUC #### [facility] [address] [place] [address] Dr. Nancy Montalvo IG # 0.17 10e3/ul Critically high 0.00-0.03 [facility] Comment on above: Performed By: #### P OCGLUC #### [facility] [address] [place] [address] Dr. Nancy Montalvo IG % 1.3 % Critically high 0.0-0.5 [facility] Comment on above: Performed By: #### P OCGLUC #### [facility] [address] [place] [address] Dr. Nancy Montalvo LYMPH # 1.4 103/ul Normal 1.2-3.8 [facility] Comment on above: Performed By: #### P OCGLUC #### [facility] [address] [place] [address] Dr. Nancy Montalvo Lymphocytes/100 WBC (Bld) 10.7 % Critically low 20.5-60.0 [facility] Comment on above: Performed By: #### P OCGLUC #### [facility] [address] [place] [address] Dr. Nancy Montalvo MANUAL DIFF REQ NO Normal [facility] Comment on above: Performed By: #### P OCGLUC #### [facility] [address] [address] [address] Nancy Montalvo MCH (RBC) [Entitic mass] 30.5 pg Normal 26.7-34.0 [facility] Comment on above: Performed By: #### P OCGLUC #### [facility] [address] [place] [address] Dr. Nancy Montalvo MCHC (RBC) [Mass/Vol] 30.8 g/dL Normal 29.9-35.2 [facility] Comment on above: Performed By: #### P OCGLUC #### [facility] [address] [place] [address] Dr. Nancy Montalvo MCV (RBC) [Entitic vol] 99.0 fL Normal 81.0-99.0 [facility] Comment on above: Performed By: #### P OCGLUC #### [facility] [address] [place] [address] Dr. Nancy Montalvo MONO # 0.6 103/ul Normal 0.3-0.8 [facility] Comment on above: Performed By: #### P OCGLUC #### [facility] [address] [place] [address] Dr. Nancy Montalvo Monocytes/100 WBC (Bld) 5.0 % Normal 1.7-12.0 [facility] Comment on above: Performed By: #### P OCGLUC #### [facility] [address] [place] [address] Dr. Nancy Montalvo NEUT # 10.4 103/ul Critically high 1.4-6.5 [facility] Comment on above: Performed By: #### P OCGLUC #### [facility] [address] [place] [address] Dr. Nancy Montalvo Neutrophils/100 WBC (Bld) 82.4 % Critically high 43.0-75.0 [facility] Comment on above: Performed By: #### P OCGLUC #### [facility] [address] [place] [address] Dr. Nancy Montalvo Platelet mean volume (Bld) [Entitic vol] 11.9 fL Normal 9.5-13.5 [facility] Comment on above: Performed By: #### P OCGLUC #### [facility] [address] [place] [address] Dr. Nancy Montalvo PLT 136 103/ul Critically low 150-450 [facility] Comment on above: Performed By: #### P OCGLUC #### [facility] [address] [place] [address] Dr. Nancy Montalvo RBC 3.11 106/ul Critically low 4.20-5.40 [facility] Comment on above: Performed By: #### P OCGLUC #### [facility] [address] [place] [address] Dr. Nancy Montalvo WBC 12.7 103/ul Critically high 4.0-11.0 [facility] Comment on above: Performed By: #### P OCGLUC #### [facility] [address] [place] [address] Dr. Nancy Montalvo PROF 14(COMP METB)on 023 Albumin [Mass/Vol] 1.7 g/dL Critically low 3.4-5.0 [facility] Comment on above: Performed By: #### B LDCX1 #### [facility] [address] [place] [address] Dr. Nancy Montalvo Albumin/Globulin [Mass ratio] 0.5 {ratio} Normal [facility] Comment on above: Performed By: #### B LDCX1 #### [facility] [address] [place] [address] Dr. Nancy Montalvo ALP [Catalytic activity/Vol] 97 U/L Normal 46-116 [facility] Comment on above: Performed By: #### B LDCX1 #### [facility] [address] [place] [address] Dr. Nancy Montalvo ALT [Catalytic activity/Vol] 65 U/L Critically high 14-59 [facility] Comment on above: Performed By: #### B LDCX1 #### [facility] [address] [place] [address] Dr. Nancy Montalvo Anion gap [Moles/Vol] 15.2 mmol/L Normal [facility] Comment on above: Performed By: #### B LDCX1 #### [facility] [address] [place] [address] Dr. Nancy Montalvo AST [Catalytic activity/Vol] 28 U/L Normal 15-37 [facility] Comment on above: Performed By: #### B LDCX1 #### [facility] [address] [place] [address] Dr. Nancy Montalvo Bilirubin [Mass/Vol] 0.4 mg/dL Normal 0.2-1.0 [facility] Comment on above: Performed By: #### B LDCX1 #### [facility] [address] [place] [address] Dr. Nancy Montalvo Calcium [Mass/Vol] 8.4 mg/dL Critically low 8.5-10.1 Th [facility] Comment on above: Performed By: #### B LDCX1 #### [facility] [address] [place] [address] Dr. Nancy Montalvo Chloride [Moles/Vol] 108 mmol/L Critically high 98-107 [facility] Comment on above: Performed By: #### B LDCX1 #### [facility] [address] [place] [address] Dr. Nancy Montalvo CO2 [Moles/Vol] 24.6 mmol/L Normal 21.0-32.0 [facility] Comment on above: Performed By: #### B LDCX1 #### [facility] [address] [place] [address] Dr. Nancy Montalvo Creatinine [Mass/Vol] 2.22 mg/dL Critically high 0.55-1.02 [facility] Comment on above: Performed By: #### B LDCX1 #### [facility] [address] [place] [address] Dr. Nancy Montalvo EGFR-AF CUBAN 25 mL/min/1.73m2 Critically low >=60 [facility] Comment on above: Performed By: #### B LDCX1 #### [facility] [address] [place] [address] Dr. Nancy Montalvo EGFR-NON AF CUBAN 21 mL/min/1.73m2 Critically low >=60 [facility] Comment on above: Performed By: #### B LDCX1 #### [facility] [address] [address] [address] Nancy Montalvo Globulin (S) [Mass/Vol] 3.4 g/dL Normal [facility] Comment on above: Performed By: #### B LDCX1 #### [facility] [address] [address] [address] Nancy Montalvo Glucose [Mass/Vol] 86 mg/dL Normal 74-[address] [facility] Comment on above: Performed By: #### B LDCX1 #### [facility] [address] [address] [address] Nancy Montalvo Potassium [Moles/Vol] 3.8 mmol/L Normal 3.5-5.1 [facility] Comment on above: Performed By: #### B LDCX1 #### [facility] [address] [place] [address] Dr. Nancy Montalvo Protein [Mass/Vol] 5.1 g/dL Critically low 6.4-8.2 Th [facility] Comment on above: Performed By: #### B LDCX1 #### [facility] [address] [place] [address] Dr. Nancy Montalvo Sodium [Moles/Vol] 144 mmol/L Normal 136-[address] [facility] Comment on above: Performed By: #### B LDCX1 #### [facility] [address] [place] [address] Dr. Nancy Montalvo Urea nitrogen [Mass/Vol] 34.0 mg/dL Critically high 7.0-18.0 [facility] Comment on above: Performed By: #### B LDCX1 #### [facility] [address] [place] [address] Dr. Nancy Montalvo Urea nitrogen/Creatinine [Mass ratio] 15.3 mg/mg Normal [facility] Comment on above: Performed By: #### B LDCX1 #### [facility] [address] [place] [address] Dr. Nancy Montalvo PROTIMEon 07-14-2022 INR Coag (PPP) [Relative time] 3.39 {INR} Normal [facility] Comment on above: Performed By: #### P OCGLUC #### [facility] [address] [place] [address] Dr. Nancy Montalvo INR GUIDELINES SEE BELOW Normal [facility] Comment on above: Result Comment: ADITYA RED INR: 2.0 - 3.0 CONDITIONS NOT LISTED BELOW 2.5 - 3.5 FOR PROSTHETIC HEART VALVE REPLACEMENT 2.5 - 3.5 RECURRENT THROMBOSIS Performed By: #### P OCGLUC #### [facility] [address] [place] [address] Dr. Nancy Montalvo PT Coag (PPP) [Time] 33.5 s Critically high 9.0-11.6 [facility] Comment on above: Performed By: #### P OCGLUC #### [facility] [address] [place] [address] Dr. Nancy Montalvo CBC AUTO DIFFon 07-13-2022 BASO # 0.0 103/ul Normal 0.0-0.1 [facility] Comment on above: Performed By: #### P OCGLUC #### [facility] [address] [place] [address] Dr. Nancy Montalvo Basophils/100 WBC (Bld) 0.3 % Normal 0.2-2.0 [facility] Comment on above: Performed By: #### P OCGLUC #### [facility] [address] [place] [address] Dr. Nancy Montalvo EO # 0.1 103/ul Normal 0.0-0.7 [facility] Comment on above: Performed By: #### P OCGLUC #### [facility] [address] [place] [address] Dr. Nancy Montalvo Eosinophils/100 WBC (Bld) 0.4 % Critically low 0.9-7.0 [facility] Comment on above: Performed By: #### P OCGLUC #### [facility] [address] [place] [address] Dr. Nancy Montalvo Erythrocyte distribution width (RBC) [Ratio] 13.4 % Normal 11.0-15.0 [facility] Comment on above: Performed By: #### P OCGLUC #### [facility] [address] [place] [address] Dr. Nancy Montalvo Hematocrit (Bld) [Volume fraction] 29.9 % Critically low 36.0-48.0 [facility] Comment on above: Performed By: #### P OCGLUC #### [facility] [address] [place] [address] Dr. Nancy Montalvo Hemoglobin (Bld) [Mass/Vol] 9.5 g/dL Critically low 12.0-16.0 [facility] Comment on above: Performed By: #### P OCGLUC #### [facility] [address] [place] [address] Dr. Nancy Montalvo IG # 0.16 10e3/ul Critically high 0.00-0.03 [facility] Comment on above: Performed By: #### P OCGLUC #### [facility] [address] [place] [address] Dr. Nancy Montalvo IG % 1.4 % Critically high 0.0-0.5 [facility] Comment on above: Performed By: #### P OCGLUC #### [facility] [address] [place] [address] Dr. Nancy Montalvo LYMPH # 1.0 103/ul Critically low 1.2-3.8 [facility] Comment on above: Performed By: #### P OCGLUC #### [facility] [address] [place] [address] Dr. Nancy Montalvo Lymphocytes/100 WBC (Bld) 8.4 % Critically low 20.5-60.0 [facility] Comment on above: Performed By: #### P OCGLUC #### [facility] [address] [place] [address] Dr. Nancy Montalvo MANUAL DIFF REQ NO Normal [facility] Comment on above: Performed By: #### P OCGLUC #### [facility] [address] [place] [address] Dr. Nancy Montalvo MCH (RBC) [Entitic mass] 31.3 pg Normal 26.7-34.0 [facility] Comment on above: Performed By: #### P OCGLUC #### [facility] [address] [address] [address] Nancy Montalvo MCHC (RBC) [Mass/Vol] 31.8 g/dL Normal 29.9-35.2 [facility] Comment on above: Performed By: #### P OCGLUC #### [facility] [address] [address] [address] Nancy Montalvo MCV (RBC) [Entitic vol] 98.4 fL Normal 81.0-99.0 [facility] Comment on above: Performed By: #### P OCGLUC #### [facility] [address] [place] [address] Dr. Nancy Montalvo MONO # 0.4 103/ul Normal 0.3-0.8 [facility] Comment on above: Performed By: #### P OCGLUC #### [facility] [address] [place] [address] Dr. Nancy Montalvo Monocytes/100 WBC (Bld) 3.7 % Normal 1.7-12.0 [facility] Comment on above: Performed By: #### P OCGLUC #### [facility] [address] [place] [address] Dr. Nancy Montalvo NEUT # 10.1 103/ul Critically high 1.4-6.5 [facility] Comment on above: Performed By: #### P OCGLUC #### [facility] [address] [place] [address] Dr. Nancy Montalvo Neutrophils/100 WBC (Bld) 85.8 % Critically high 43.0-75.0 [facility] Comment on above: Performed By: #### P OCGLUC #### [facility] [address] [place] [address] Dr. Nancy Montalvo Platelet mean volume (Bld) [Entitic vol] 12.3 fL Normal 9.5-13.5 [facility] Comment on above: Performed By: #### P OCGLUC #### [facility] [address] [address] [address] Nancy Montalvo PLT 119 103/ul Critically low 150-450 [facility] Comment on above: Performed By: #### P OCGLUC #### [facility] [address] [address] [address] Nancy Montalvo RBC 3.04 106/ul Critically low 4.20-5.40 [facility] Comment on above: Performed By: #### P OCGLUC #### [facility] [address] [address] [address] Nancy Montalvo WBC 11.7 103/ul Critically high 4.0-11.0 [facility] Comment on above: Performed By: #### P OCGLUC #### [facility] [address] [place] [address] Dr. Nancy Montalvo POINT OF CARE GLUCOSEon 06-18 Glucose [Mass/Vol] 143 mg/dL Critically high 74-106 [facility] Comment on above: Performed By: #### U AMIC #### [facility] [address] [place] [address] Dr. Nancy Montalvo PROF 14(COMP METB)on 023 Albumin [Mass/Vol] 1.6 g/dL Critically low 3.4-5.0 [facility] Comment on above: Performed By: #### C VDTBH #### [facility] [address] [place] [address] Dr. Nancy Montalvo Albumin/Globulin [Mass ratio] 0.5 {ratio} Normal [facility] Comment on above: Performed By: #### C VDTBH #### [facility] [address] [place] [address] Dr. Nancy Montalvo ALP [Catalytic activity/Vol] 102 U/L Normal 46-116 [facility] Comment on above: Performed By: #### C VDTBH #### [facility] [address] [place] [address] Dr. Nancy Montalvo ALT [Catalytic activity/Vol] 79 U/L Critically high 14-59 [facility] Comment on above: Performed By: #### C VDTBH #### [facility] [address] [address] [address] Nancy Montalvo Anion gap [Moles/Vol] 13.1 mmol/L Normal [facility] Comment on above: Performed By: #### C VDTBH #### [facility] [address] [address] [address] Nancy Montalvo AST [Catalytic activity/Vol] 31 U/L Normal 15-37 [facility] Comment on above: Performed By: #### C VDTBH #### [facility] [address] [address] [address] Nancy Montalvo Bilirubin [Mass/Vol] 0.4 mg/dL Normal 0.2-1.0 [facility] Comment on above: Performed By: #### C VDTBH #### [facility] [address] [place] [address] Dr. Nancy Montalvo Calcium [Mass/Vol] 8.1 mg/dL Critically low 8.5-10.1 [facility] Comment on above: Performed By: #### C VDTBH #### [facility] [address] [address] [address] Nancy Montalvo Chloride [Moles/Vol] 108 mmol/L Critically high 98-107 [facility] Comment on above: Performed By: #### C VDTBH #### [facility] [address] [place] [address] Dr. Nancy Montalvo CO2 [Moles/Vol] 23.4 mmol/L Normal 21.0-32.0 [facility] Comment on above: Performed By: #### C VDTBH #### [facility] [address] [place] [address] Dr. Nancy Montalvo Creatinine [Mass/Vol] 2.33 mg/dL Critically high 0.55-1.02 [facility] Comment on above: Performed By: #### C VDTBH #### [facility] [address] [place] [address] Dr. Nancy Montalvo EGFR-AF CUBAN 24 mL/min/1.73m2 Critically low >=60 [facility] Comment on above: Performed By: #### C VDTBH #### [facility] [address] [address] [address] Nancy Montalvo EGFR-NON AF CUBAN 20 mL/min/1.73m2 Critically low >=60 [facility] Comment on above: Performed By: #### C VDTBH #### [facility] [address] [address] [address] Nancy Montalvo Globulin (S) [Mass/Vol] 3.3 g/dL Normal [facility] Comment on above: Performed By: #### C VDTBH #### [facility] [address] [address] [address] Nancy Montalvo Glucose [Mass/Vol] 107 mg/dL Critically high 74-106 [facility] Comment on above: Performed By: #### C VDTBH #### [facility] [address] [address] [address] Nancy Montalvo Potassium [Moles/Vol] 3.5 mmol/L Normal 3.5-5.1 [facility] Comment on above: Performed By: #### C VDTBH #### [facility] [address] [address] [address] Nancy Montalvo Protein [Mass/Vol] 4.9 g/dL Critically low 6.4-8.2 Th [facility] Comment on above: Performed By: #### C VDTBH #### [facility] [address] [address] [address] Nancy Montalvo Sodium [Moles/Vol] 141 mmol/L Normal 136-[address] [facility] Comment on above: Performed By: #### C VDTBH #### [facility] [address] [address] [address] Nancy Montalvo Urea nitrogen [Mass/Vol] 39.0 mg/dL Critically high 7.0-18.0 [facility] Comment on above: Performed By: #### C VDTBH #### [facility] [address] [address] [address] Nancy Montalvo Urea nitrogen/Creatinine [Mass ratio] 16.7 mg/mg Normal [facility] Comment on above: Performed By: #### C VDTBH #### [facility] [address] [address] [address] Nancy Montalvo PROTIMEon 07-13-2022 INR Coag (PPP) [Relative time] 1.99 {INR} Normal [facility] Comment on above: Performed By: #### P OCGLUC #### [facility] [address] [address] [address] Nancy Montalvo INR GUIDELINES SEE BELOW Normal [facility] Comment on above: Result Comment: ADITYA RED INR: 2.0 - 3.0 CONDITIONS NOT LISTED BELOW 2.5 - 3.5 FOR PROSTHETIC HEART VALVE REPLACEMENT 2.5 - 3.5 RECURRENT THROMBOSIS Performed By: #### P OCGLUC #### [facility] [address] [address] [address] Nancy Montalvo PT Coag (PPP) [Time] 20.3 s Critically high 9.0-11.6 [facility] Comment on above: Performed By: #### P OCGLUC #### [facility] [address] [address] [address] Nancy Montalvo XR HIP LT 1V [...] is well-seated in the acetabulum. There are [id number] degenerative changes of the left hip. There are [id number] degenerative changes of the left sacroiliac joint [...] Ban ESCOBEDO Date: 2022-07-12 22:49 Normal [facility] CBC AUTO DIFFon 07-12-2022 BASO # 0.0 103/ul Normal 0.0-0.1 [facility] Comment on above: Performed By: #### U AMIC #### [facility] [address] [place] [address] Dr. Nancy Montalvo Basophils/100 WBC (Bld) 0.2 % Normal 0.2-2.0 [facility] Comment on above: Performed By: #### U AMIC #### [facility] [address] [place] [address] Dr. Nancy Montalvo EO # 0.1 103/ul Normal 0.0-0.7 [facility] Comment on above: Performed By: #### U AMIC #### [facility] [address] [place] [address] Dr. Nancy Montalvo Eosinophils/100 WBC (Bld) 0.8 % Critically low 0.9-7.0 [facility] Comment on above: Performed By: #### U AMIC #### [facility] [address] [place] [address] Dr. Nancy Montalvo Erythrocyte distribution width (RBC) [Ratio] 13.2 % Normal 11.0-15.0 [facility] Comment on above: Performed By: #### U AMIC #### [facility] [address] [place] [address] Dr. Nancy Montalvo Hematocrit (Bld) [Volume fraction] 30.7 % Critically low 36.0-48.0 [facility] Comment on above: Performed By: #### U AMIC #### [facility] [address] [place] [address] Dr. Nancy Montalvo Hemoglobin (Bld) [Mass/Vol] 10.0 g/dL Critically low 12.0-16.0 [facility] Comment on above: Performed By: #### U AMIC #### [facility] [address] [place] [address] Dr. Nancy Montalvo IG # 0.20 10e3/ul Critically high 0.00-0.03 [facility] Comment on above: Performed By: #### U AMIC #### [facility] [address] [place] [address] Dr. Nancy Montalvo IG % 1.5 % Critically high 0.0-0.5 [facility] Comment on above: Performed By: #### U AMIC #### [facility] [address] [address] [address] Nancy Montalvo LYMPH # 1.2 103/ul Normal 1.2-3.8 [facility] Comment on above: Performed By: #### U AMIC #### [facility] [address] [place] [address] Dr. Nancy Montalvo Lymphocytes/100 WBC (Bld) 8.9 % Critically low 20.5-60.0 [facility] Comment on above: Performed By: #### U AMIC #### [facility] [address] [place] [address] Dr. Nancy Montalvo MANUAL DIFF REQ NO Normal [facility] Comment on above: Performed By: #### U AMIC #### [facility] [address] [place] [address] Dr. Nancy Montalvo MCH (RBC) [Entitic mass] 31.6 pg Normal 26.7-34.0 [facility] Comment on above: Performed By: #### U AMIC #### [facility] [address] [place] [address] Dr. Nancy Montalvo MCHC (RBC) [Mass/Vol] 32.6 g/dL Normal 29.9-35.2 [facility] Comment on above: Performed By: #### U AMIC #### [facility] [address] [place] [address] Dr. Nancy Montalvo MCV (RBC) [Entitic vol] 97.2 fL Normal 81.0-99.0 [facility] Comment on above: Performed By: #### U AMIC #### [facility] [address] [place] [address] Dr. Nancy Montalvo MONO # 0.5 103/ul Normal 0.3-0.8 [facility] Comment on above: Performed By: #### U AMIC #### [facility] [address] [place] [address] Dr. Nancy Montalvo Monocytes/100 WBC (Bld) 3.6 % Normal 1.7-12.0 [facility] Comment on above: Performed By: #### U AMIC #### [facility] [address] [place] [address] Dr. Nancy Montalvo NEUT # 11.1 103/ul Critically high 1.4-6.5 [facility] Comment on above: Performed By: #### U AMIC #### [facility] [address] [place] [address] Dr. Nancy Montalvo Neutrophils/100 WBC (Bld) 85.0 % Critically high 43.0-75.0 [facility] Comment on above: Performed By: #### U AMIC #### [facility] [address] [place] [address] Dr. Nancy Montalvo Platelet mean volume (Bld) [Entitic vol] 13.1 fL Normal 9.5-13.5 [facility] Comment on above: Performed By: #### U AMIC #### [facility] [address] [place] [address] Dr. Nancy Montalvo PLT 107 103/ul Critically low 150-450 [facility] Comment on above: Performed By: #### U AMIC #### [facility] [address] [place] [address] Dr. Nancy Montalvo RBC 3.16 106/ul Critically low 4.20-5.40 [facility] Comment on above: Performed By: #### U AMIC #### [facility] [address] [place] [address] Dr. Nancy Montalvo WBC 13.0 103/ul Critically high 4.0-11.0 [facility] Comment on above: Performed By: #### U AMIC #### [facility] [address] [place] [address] Dr. Nancy Montalvo CULTURE URINEon 07-12-2022 CULTURE [...] F Trimethoprim/Sulfamethoxazo le <=20 S F Normal [facility] Comment on above: Performed By: #### U RCX #### [facility] [address] [place] [address] Dr. Nancy Montalvo PROF 14(COMP METB)on 023 Albumin [Mass/Vol] 1.7 g/dL Critically low 3.4-5.0 Th [facility] Comment on above: Performed By: #### C MP #### [facility] [address] [place] [address] Dr. Nancy Montalvo Albumin/Globulin [Mass ratio] 0.5 {ratio} Normal [facility] Comment on above: Performed By: #### C MP #### [facility] [address] [place] [address] Dr. Nancy Montalvo ALP [Catalytic activity/Vol] 102 U/L Normal 46-116 [facility] Comment on above: Performed By: #### C MP #### [facility] [address] [place] [address] Dr. Nancy Montalvo ALT [Catalytic activity/Vol] 95 U/L Critically high 14-59 [facility] Comment on above: Performed By: #### C MP #### [facility] [address] [place] [address] Dr. Nancy Montalvo Anion gap [Moles/Vol] 14.1 mmol/L Normal [facility] Comment on above: Performed By: #### C MP #### [facility] [address] [place] [address] Dr. Nancy Montalvo AST [Catalytic activity/Vol] 15 U/L Normal 15-37 [facility] Comment on above: Performed By: #### C MP #### [facility] [address] [address] [address] Nancy Montalvo Bilirubin [Mass/Vol] 0.5 mg/dL Normal 0.2-1.0 [facility] Comment on above: Performed By: #### C MP #### [facility] [address] [address] [address] Nancy Montalvo Calcium [Mass/Vol] 8.2 mg/dL Critically low 8.5-10.1 Th e [facility] Comment on above: Performed By: #### C MP #### [facility] [address] [place] [address] Dr. Nancy Montalvo Chloride [Moles/Vol] 103 mmol/L Normal 98-107 [facility] Comment on above: Performed By: #### C MP #### [facility] [address] [address] [address] Nancy Montalvo CO2 [Moles/Vol] 23.4 mmol/L Normal 21.0-32.0 [facility] Comment on above: Performed By: #### C MP #### [facility] [address] [place] [address] Dr. Nancy Montalvo Creatinine [Mass/Vol] 2.68 mg/dL Critically high 0.55-1.02 [facility] Comment on above: Performed By: #### C MP #### [facility] [address] [address] [address] Nancy Montalvo EGFR-AF CUBAN 20 mL/min/1.73m2 Critically low >=60 [facility] Comment on above: Performed By: #### C MP #### [facility] [address] [place] [address] Dr. Nancy Montalvo EGFR-NON AF CUBAN 17 mL/min/1.73m2 Critically low >=60 [facility] Comment on above: Performed By: #### C MP #### [facility] [address] [place] [address] Dr. Nancy Montalvo Globulin (S) [Mass/Vol] 3.1 g/dL Normal [facility] Comment on above: Performed By: #### C MP #### [facility] [address] [address] [address] Nancy Montalvo Glucose [Mass/Vol] 118 mg/dL Critically high 74-106 [facility] Comment on above: Performed By: #### C MP #### [facility] [address] [address] [address] Nancy Montalvo Potassium [Moles/Vol] 3.5 mmol/L Normal 3.5-5.1 [facility] Comment on above: Performed By: #### C MP #### [facility] [address] [address] [address] Nancy Montalvo Protein [Mass/Vol] 4.8 g/dL Critically low 6.4-8.2 Th [facility] Comment on above: Performed By: #### C MP #### [facility] [address] [address] [address] Nancy Montalvo Sodium [Moles/Vol] 137 mmol/L Normal 136-[address] [facility] Comment on above: Performed By: #### C MP #### [facility] [address] [place] [address] Dr. Nancy Montalvo Urea nitrogen [Mass/Vol] 43.0 mg/dL Critically high 7.0-18.0 [facility] Comment on above: Performed By: #### C MP #### [facility] [address] [address] [address] Nancy Montalvo Urea nitrogen/Creatinine [Mass ratio] 16.0 mg/mg Normal [facility] Comment on above: Performed By: #### C MP #### [facility] [address] [place] [address] Dr. Nancy Montalvo PROTIMEon 07-12-2022 INR Coag (PPP) [Relative time] 2.27 {INR} Normal [facility] Comment on above: Performed By: #### P OCGLUC #### [facility] [address] [place] [address] Dr. Nancy Montalvo INR GUIDELINES SEE BELOW Normal [facility] Comment on above: Result Comment: ADITYA RED INR: 2.0 - 3.0 CONDITIONS NOT LISTED BELOW 2.5 - 3.5 FOR PROSTHETIC HEART VALVE REPLACEMENT 2.5 - 3.5 RECURRENT THROMBOSIS Performed By: #### P OCGLUC #### [facility] [address] [place] [address] Dr. Nancy Montalvo PT Coag (PPP) [Time] 23.0 s Critically high 9.0-11.6 [facility] Comment on above: Performed By: #### P OCGLUC #### [facility] [address] [place] [address] Dr. Nancy Montalvo CBC AUTO DIFFon 07-11-2022 BASO # 0.1 103/ul Normal 0.0-0.1 [facility] Comment on above: Performed By: #### P OCGLUC #### [facility] [address] [place] [address] Dr. Nancy Montalvo Basophils/100 WBC (Bld) 0.3 % Normal 0.2-2.0 [facility] Comment on above: Performed By: #### P OCGLUC #### [facility] [address] [place] [address] Dr. Nancy Montalvo EO # 0.1 103/ul Normal 0.0-0.7 [facility] Comment on above: Performed By: #### P OCGLUC #### [facility] [address] [place] [address] Dr. Nancy Montalvo Eosinophils/100 WBC (Bld) 0.3 % Critically low 0.9-7.0 [facility] Comment on above: Performed By: #### P OCGLUC #### [facility] [address] [place] [address] Dr. Nancy Montalvo Erythrocyte distribution width (RBC) [Ratio] 13.3 % Normal 11.0-15.0 [facility] Comment on above: Performed By: #### P OCGLUC #### [facility] [address] [place] [address] Dr. Nancy Montalvo Hematocrit (Bld) [Volume fraction] 37.5 % Normal 36.0-48.0 [facility] Comment on above: Performed By: #### P OCGLUC #### [facility] [address] [address] [address] Nancy Montalvo Hemoglobin (Bld) [Mass/Vol] 11.5 g/dL Critically low 12.0-16.0 [facility] Comment on above: Performed By: #### P OCGLUC #### [facility] [address] [place] [address] Dr. Nancy Montalvo IG # 0.29 10e3/ul Critically high 0.00-0.03 [facility] Comment on above: Performed By: #### P OCGLUC #### [facility] [address] [place] [address] Dr. Nancy Montalvo IG % 1.8 % Critically high 0.0-0.5 [facility] Comment on above: Performed By: #### P OCGLUC #### [facility] [address] [place] [address] Dr. Nancy Montalvo LYMPH # 2.2 103/ul Normal 1.2-3.8 [facility] Comment on above: Performed By: #### P OCGLUC #### [facility] [address] [place] [address] Dr. Nancy Montalvo Lymphocytes/100 WBC (Bld) 13.2 % Critically low 20.5-60.0 [facility] Comment on above: Performed By: #### P OCGLUC #### [facility] [address] [place] [address] Dr. Nancy Montalvo MANUAL DIFF REQ NO Normal [facility] Comment on above: Performed By: #### P OCGLUC #### [facility] [address] [place] [address] Dr. Nancy Montalvo MCH (RBC) [Entitic mass] 31.3 pg Normal 26.7-34.0 [facility] Comment on above: Performed By: #### P OCGLUC #### [facility] [address] [place] [address] Dr. Nancy Montalvo MCHC (RBC) [Mass/Vol] 30.7 g/dL Normal 29.9-35.2 [facility] Comment on above: Performed By: #### P OCGLUC #### [facility] [address] [address] [address] Nancy Montalvo MCV (RBC) [Entitic vol] 101.9 fL Critically high 81.0-99.0 [facility] Comment on above: Performed By: #### P OCGLUC #### [facility] [address] [address] [address] Nancy Montalvo MONO # 0.4 103/ul Normal 0.3-0.8 [facility] Comment on above: Performed By: #### P OCGLUC #### [facility] [address] [address] [address] Nancy Montalvo Monocytes/100 WBC (Bld) 2.7 % Normal 1.7-12.0 [facility] Comment on above: Performed By: #### P OCGLUC #### [facility] [address] [place] [address] Dr. Nancy Montalvo NEUT # 13.5 103/ul Critically high 1.4-6.5 [facility] Comment on above: Performed By: #### P OCGLUC #### [facility] [address] [place] [address] Dr. Nancy Montalvo Neutrophils/100 WBC (Bld) 81.7 % Critically high 43.0-75.0 [facility] Comment on above: Performed By: #### P OCGLUC #### [facility] [address] [address] [address] Nancy Montalvo Platelet mean volume (Bld) [Entitic vol] 13.3 fL Normal 9.5-13.5 [facility] Comment on above: Performed By: #### P OCGLUC #### [facility] [address] [place] [address] Dr. Nancy Montalvo PLT 104 103/ul Critically low 150-450 [facility] Comment on above: Performed By: #### P OCGLUC #### [facility] [address] [address] [address] Nancy Montalvo RBC 3.68 106/ul Critically low 4.20-5.40 [facility] Comment on above: Performed By: #### P OCGLUC #### [facility] [address] [address] [address] Nancy Montalvo WBC 16.5 103/ul Critically high 4.0-11.0 [facility] Comment on above: Performed By: #### P OCGLUC #### [facility] [address] [address] [address] Nancy Montalvo PROF 14(COMP METB)on 023 Albumin [Mass/Vol] 1.9 g/dL Critically low 3.4-5.0 [facility] Comment on above: Performed By: #### P OCGLUC #### [facility] [address] [address] [address] Nancy Montalvo Albumin/Globulin [Mass ratio] 0.5 {ratio} Normal [facility] Comment on above: Performed By: #### P OCGLUC #### [facility] [address] [address] [address] Nancy Montalvo ALP [Catalytic activity/Vol] 136 U/L Critically high 46-116 [facility] Comment on above: Performed By: #### P OCGLUC #### [facility] [address] [address] [address] Nancy Montalvo ALT [Catalytic activity/Vol] 144 U/L Critically high 14-59 [facility] Comment on above: Performed By: #### P OCGLUC #### [facility] [address] [address] [address] Nancy Montalvo Anion gap [Moles/Vol] 14.4 mmol/L Normal [facility] Comment on above: Performed By: #### P OCGLUC #### [facility] [address] [address] [address] Nancy Montalvo AST [Catalytic activity/Vol] 37 U/L Normal 15-37 [facility] Comment on above: Performed By: #### P OCGLUC #### [facility] [address] [address] [address] Nancy Montalvo Bilirubin [Mass/Vol] 0.5 mg/dL Normal 0.2-1.0 [facility] Comment on above: Performed By: #### P OCGLUC #### [facility] [address] [address] [address] Nancy Montalvo Calcium [Mass/Vol] 8.4 mg/dL Critically low 8.5-10.1 Th e [facility] Comment on above: Performed By: #### P OCGLUC #### [facility] [address] [address] [address] Nancy Montalvo Chloride [Moles/Vol] 103 mmol/L Normal 98-107 [facility] Comment on above: Performed By: #### P OCGLUC #### [facility] [address] [address] [address] Nancy Montalvo CO2 [Moles/Vol] 22.5 mmol/L Normal 21.0-32.0 [facility] Comment on above: Performed By: #### P OCGLUC #### [facility] [address] [address] [address] Nancy Montalvo Creatinine [Mass/Vol] 2.66 mg/dL Critically high 0.55-1.02 [facility] Comment on above: Performed By: #### P OCGLUC #### [facility] [address] [address] [address] Nancy Montalvo EGFR-AF CUBAN 21 mL/min/1.73m2 Critically low >=60 [facility] Comment on above: Performed By: #### P OCGLUC #### [facility] [address] [address] [address] Nancy Montalvo EGFR-NON AF CUBAN 17 mL/min/1.73m2 Critically low >=60 [facility] Comment on above: Performed By: #### P OCGLUC #### [facility] [address] [address] [address] Nancy Montalvo Globulin (S) [Mass/Vol] 3.7 g/dL Normal [facility] Comment on above: Performed By: #### P OCGLUC #### [facility] [address] [address] [address] Nancy Montalvo Glucose [Mass/Vol] 83 mg/dL Normal 74-[address] [facility] Comment on above: Performed By: #### P OCGLUC #### [facility] [address] [address] [address] Nancy Montalvo Potassium [Moles/Vol] 3.9 mmol/L Normal 3.5-5.1 [facility] Comment on above: Performed By: #### P OCGLUC #### [facility] [address] [address] [address] Nancy Montalvo Protein [Mass/Vol] 5.6 g/dL Critically low 6.4-8.2 Th e [facility] Comment on above: Performed By: #### P OCGLUC #### [facility] [address] [address] [address] Nancy Montalvo Sodium [Moles/Vol] 136 mmol/L Normal 136-[address] [facility] Comment on above: Performed By: #### P OCGLUC #### [facility] [address] [address] [address] Nancy Montalvo Urea nitrogen [Mass/Vol] 40.0 mg/dL Critically high 7.0-18.0 [facility] Comment on above: Performed By: #### P OCGLUC #### [facility] [address] [place] [address] Dr. Nancy Montalvo Urea nitrogen/Creatinine [Mass ratio] 15.0 mg/mg Normal [facility] Comment on above: Performed By: #### P OCGLUC #### [facility] [address] [address] [address] Nancy Montalvo PROTIMEon 07-11-2022 INR Coag (PPP) [Relative time] 3.29 {INR} Normal [facility] Comment on above: Performed By: #### P OCGLUC #### [facility] [address] [place] [address] Dr. Nancy Montalvo INR GUIDELINES SEE BELOW Normal [facility] Comment on above: Result Comment: ADITYA RED INR: 2.0 - 3.0 CONDITIONS NOT LISTED BELOW 2.5 - 3.5 FOR PROSTHETIC HEART VALVE REPLACEMENT 2.5 - 3.5 RECURRENT THROMBOSIS Performed By: #### P OCGLUC #### [facility] [address] [place] [address] Dr. Nancy Montalvo PT Coag (PPP) [Time] 32.6 s Critically high 9.0-11.6 [facility] Comment on above: Performed By: #### P OCGLUC #### [facility] [address] [place] [address] Dr. Nancy Montalvo PTTon 07-11-2022 aPTT Coag (Bld) [Time] 68.0 s Critically high 22.3-36.2 [facility] Comment on above: Performed By: #### P OCGLUC #### [facility] [address] [place] [address] Dr. Nancy Montalvo CARDIAC DENILSON 3-6on 3 CK [Catalytic activity/Vol] 51 U/L Normal 26-192 [facility] Comment on above: Performed By: #### P OCGLUC #### [facility] [address] [place] [address] Dr. Nancy Montalvo CK.MB [Mass/Vol] 1.01 ng/mL Normal <=3.60 [facility] Comment on above: Performed By: #### P OCGLUC #### [facility] [address] [place] [address] Dr. Nancy Montalvo HSTROP 45.8 pg/mL Normal 4.0-51.3 [facility] Comment on above: Result Comment: CUT- OFF POINTS HAVE BEEN ESTABLISHED BASED ON THE FOURTH UNIVERSAL DEFINITIONS OF MYOCARDIAL INFARCTION. THE UPPER REFERENCE LIMIT (URL) OF TROPONIN, DEFINED THE 99TH PERCENTILE OF cTnI DISTRIBUTION IN A REFERENCE POPULATION, HAS BEEN CONFIRMED THE DECISION THRESHOLD FOR [place] DIAGNOSIS. Performed By: #### P OCGLUC #### [facility] [address] [place] [address] Dr. Nancy Montalvo CK [Catalytic activity/Vol] 54 U/L Normal 26-192 [facility] Comment on above: Performed By: #### P OCGLUC #### [facility] [address] [place] [address] Dr. Nancy Montalvo CK.MB [Mass/Vol] 0.89 ng/mL Normal <=3.60 [facility] Comment on above: Performed By: #### P OCGLUC #### [facility] [address] [address] [address] Nancy Montalvo HSTROP 58.5 pg/mL Critically high 4.0-51.3 [facility] Comment on above: Result Comment: CUT- OFF POINTS HAVE BEEN ESTABLISHED BASED ON THE FOURTH UNIVERSAL DEFINITIONS OF MYOCARDIAL INFARCTION. THE UPPER REFERENCE LIMIT (URL) OF TROPONIN, DEFINED THE 99TH PERCENTILE OF cTnI DISTRIBUTION IN A REFERENCE POPULATION, HAS BEEN CONFIRMED THE DECISION THRESHOLD FOR [place] DIAGNOSIS. Performed By: #### P OCGLUC #### [facility] [address] [place] [address] Dr. Nancy Montalvo CBC AUTO DIFFon 07-10-2022 BASO # 0.1 103/ul Normal 0.0-0.1 [facility] Comment on above: Performed By: #### P OCGLUC #### [facility] [address] [address] [address] Nancy Montalvo Basophils/100 WBC (Bld) 0.2 % Normal 0.2-2.0 [facility] Comment on above: Performed By: #### P OCGLUC #### [facility] [address] [address] [address] Nancy Montalvo EO # 0.0 103/ul Normal 0.0-0.7 [facility] Comment on above: Performed By: #### P OCGLUC #### [facility] [address] [address] [address] Nancy Montalvo Eosinophils/100 WBC (Bld) 0.0 % Critically low 0.9-7.0 [facility] Comment on above: Performed By: #### P OCGLUC #### [facility] [address] [address] [address] Nancy Montalvo Erythrocyte distribution width (RBC) [Ratio] 13.0 % Normal 11.0-15.0 [facility] Comment on above: Performed By: #### P OCGLUC #### [facility] [address] [place] [address] Dr. Nancy Montalvo Hematocrit (Bld) [Volume fraction] 37.6 % Normal 36.0-48.0 [facility] Comment on above: Performed By: #### P OCGLUC #### [facility] [address] [address] [address] Nancy Montalvo Hemoglobin (Bld) [Mass/Vol] 12.5 g/dL Normal 12.0-16.0 [facility] Comment on above: Performed By: #### P OCGLUC #### [facility] [address] [place] [address] Dr. Nancy Montalvo IG # 0.23 10e3/ul Critically high 0.00-0.03 [facility] Comment on above: Performed By: #### P OCGLUC #### [facility] [address] [place] [address] Dr. Nancy Montalvo IG % 1.1 % Critically high 0.0-0.5 [facility] Comment on above: Performed By: #### P OCGLUC #### [facility] [address] [place] [address] Dr. Nancy Montalvo LYMPH # 1.5 103/ul Normal 1.2-3.8 [facility] Comment on above: Performed By: #### P OCGLUC #### [facility] [address] [place] [address] Dr. Nancy Montalvo Lymphocytes/100 WBC (Bld) 7.4 % Critically low 20.5-60.0 [facility] Comment on above: Performed By: #### P OCGLUC #### [facility] [address] [place] [address] Dr. Nancy Montalvo MANUAL DIFF REQ NO Normal [facility] Comment on above: Performed By: #### P OCGLUC #### [facility] [address] [place] [address] Dr. Nancy Montalvo MCH (RBC) [Entitic mass] 32.0 pg Normal 26.7-34.0 [facility] Comment on above: Performed By: #### P OCGLUC #### [facility] [address] [place] [address] Dr. Nancy Montalvo MCHC (RBC) [Mass/Vol] 33.2 g/dL Normal 29.9-35.2 [facility] Comment on above: Performed By: #### P OCGLUC #### [facility] [address] [address] [address] Nancy Montalvo MCV (RBC) [Entitic vol] 96.2 fL Normal 81.0-99.0 [facility] Comment on above: Performed By: #### P OCGLUC #### [facility] [address] [address] [address] Nancy Montalvo MONO # 0.4 103/ul Normal 0.3-0.8 [facility] Comment on above: Performed By: #### P OCGLUC #### [facility] [address] [address] [address] Nancy Montalvo Monocytes/100 WBC (Bld) 2.1 % Normal 1.7-12.0 [facility] Comment on above: Performed By: #### P OCGLUC #### [facility] [address] [place] [address] Dr. Nancy Montalvo NEUT # 18.3 103/ul Critically high 1.4-6.5 [facility] Comment on above: Performed By: #### P OCGLUC #### [facility] [address] [place] [address] Dr. Nancy Montalvo Neutrophils/100 WBC (Bld) 89.2 % Critically high 43.0-75.0 [facility] Comment on above: Performed By: #### P OCGLUC #### [facility] [address] [address] [address] Nancy Montalvo Platelet mean volume (Bld) [Entitic vol] 12.9 fL Normal 9.5-13.5 [facility] Comment on above: Performed By: #### P OCGLUC #### [facility] [address] [place] [address] Dr. Nancy Montalvo PLT 120 103/ul Critically low 150-450 [facility] Comment on above: Performed By: #### P OCGLUC #### [facility] [address] [address] [address] Nancy Montalvo RBC 3.91 106/ul Critically low 4.20-5.40 [facility] Comment on above: Performed By: #### P OCGLUC #### [facility] [address] [address] [address] Nancy Montalvo WBC 20.5 103/ul Critically high 4.0-11.0 [facility] Comment on above: Performed By: #### P OCGLUC #### [facility] [address] [address] [address] HEAD WO CONon [...] HANNA BAILON Date: 2022-07-10 14:10 Normal [facility] CULTURE BLOODon 07-10-2022 Microscopic examination of blood, culture Culture Observations: NO GROWTH AT 5 DAYS. Normal [facility] Comment on above: Performed By: #### A 1C #### [facility] [address] [place] [address] Dr. Nancy Montalvo Microscopic examination of blood, culture Culture Observations: NO GROWTH AT 5 DAYS. Normal [facility] Comment on above: Performed By: #### B [id number] #### [facility] [address] [place] [address] Dr. Nancy Montalvo [facility]18 SARS-CoV-2 (COVID-19) RNA MARLENE+probe Ql (Unsp spec) Not detected Normal NOT DETECTED [facility] Comment on above: Result Comment: This test is not yet approved or cleared by the [place] FDA. When there are no FDA-approved or cleared tests available, and other criteria are met, FDA can make tests available under an emergency access mechanism called an Emergency Use Authorization (EUA). The EUA for this test is supported by the Supervisor [employer] of Health and Human Service's (HHS's) declaration [...] SARS-CoV-2. Performed By: #### C VDTBH #### [facility] [address] [place] [address] Dr. Nancy Montalvo ER URINE PROFILEon 3 Bilirubin Ql (U) Negative Normal NEGATIVE [facility] Comment on above: Performed By: #### P OCGLUC #### [facility] [address] [place] [address] Dr. Nancy Montalvo Clarity (U) CLEAR Normal CLEAR [facility] Comment on above: Performed By: #### P OCGLUC #### [facility] [address] [place] [address] Dr. Nancy Montalvo Color (U) YELLOW Normal YELLOW [facility] Comment on above: Performed By: #### P OCGLUC #### [facility] [address] [place] [address] Dr. Nancy Montalvo ERUAHD A micrscopic examina tion will be performed if indicated. Normal [facility] Comment on above: Performed By: #### P OCGLUC #### [facility] [address] [place] [address] Dr. Nancy Montalvo Glucose Ql (U) >1000 Abnormal NEGATIVE [facility] Comment on above: Performed By: #### P OCGLUC #### [facility] [address] [address] [address] Nancy Montalvo Hemoglobin Ql (U) SMALL Abnormal NEGATIVE [facility] Comment on above: Performed By: #### P OCGLUC #### [facility] [address] [address] [address] Nancy Montalvo Ketones Ql (U) Negative Normal NEGATIVE [facility] Comment on above: Performed By: #### P OCGLUC #### [facility] [address] [address] [address] Nancy Montalvo LEUKOCYTES Negative Normal NEGATIVE [facility] Comment on above: Performed By: #### P OCGLUC #### [facility] [address] [place] [address] Dr. Nancy Montalvo Nitrite Ql (U) Negative Normal NEGATIVE [facility] Comment on above: Performed By: #### P OCGLUC #### [facility] [address] [place] [address] Dr. Nancy Montalvo pH (U) 5.5 [pH] Normal 5-9 [facility] Comment on above: Performed By: #### P OCGLUC #### [facility] [address] [place] [address] Dr. Nancy Montalvo Protein (U) [Mass/Vol] 30 mg/dL Abnormal NEGATIVE/ TRACE [facility] Comment on above: Performed By: #### P OCGLUC #### [facility] [address] [place] [address] Dr. Nancy Montalvo SPEC GRAVITY 1.015 Normal 1.005-<=1.[address] [place] [address] Comment on above: Performed By: #### P OCGLUC #### [facility] [address] [address] [address] Nancy Montalvo UR MICRO IND INDICATED Normal [facility] Comment on above: Performed By: #### P OCGLUC #### [facility] [address] [place] [address] Dr. Nancy Montalvo Urobilinogen Qn (U) 0.2 {Grant'U}/dL Normal 0.2 - 1. 0 [facility] Comment on above: Performed By: #### P OCGLUC #### [facility] [address] [address] [address] Nancy Montalvo LACTATE/LACTIC ACIDon 2022 Lactate [Moles/Vol] 1.8 mmol/L Normal 0.4-2.0 [facility] Comment on above: Performed By: #### P OCGLUC #### [facility] [address] [place] [address] Dr. Nancy Montalvo Lactate [Moles/Vol] 1.7 mmol/L Normal 0.4-2.0 [facility] Comment on above: Performed By: #### P OCGLUC #### [facility] [address] [place] [address] Dr. Nancy Montalvo MYOGLOBINon 07-10-2022 OLMAN 123 ng/mL Critically high 9-82 [facility] Comment on above: Performed By: #### C MP #### [facility] [address] [place] [address] Dr. Nancy Montalvo POINT OF CARE GLUCOSEon 06-18 Glucose [Mass/Vol] 352 mg/dL Critically high 74-106 [facility] Comment on above: Performed By: #### B [id number] #### [facility] [address] [place] [address] Dr. Nancy Montalvo Glucose [Mass/Vol] 378 mg/dL Critically high 74-106 [facility] Comment on above: Performed By: #### P OCGLUC #### [facility] [address] [place] [address] Dr. Nancy Montalvo PROF CHEM 8 (BAS METB)on Anion gap [Moles/Vol] 12.1 mmol/L Normal [facility] Comment on above: Performed By: #### C MP #### [facility] [address] [place] [address] Dr. Nancy Montalvo Calcium [Mass/Vol] 8.3 mg/dL Critically low 8.5-10.1 [facility] Comment on above: Performed By: #### C MP #### [facility] [address] [address] [address] Nancy Montalvo Chloride [Moles/Vol] 101 mmol/L Normal 98-107 [facility] Comment on above: Performed By: #### C MP #### [facility] [address] [address] [address] Nancy Montalvo CO2 [Moles/Vol] 24.6 mmol/L Normal 21.0-32.0 [facility] Comment on above: Performed By: #### C MP #### [facility] [address] [address] [address] Nancy Montalvo Creatinine [Mass/Vol] 2.64 mg/dL Critically high 0.55-1.02 [facility] Comment on above: Performed By: #### C MP #### [facility] [address] [address] [address] Nancy Montalvo EGFR-AF CUBAN 21 mL/min/1.73m2 Critically low >=60 [facility] Comment on above: Performed By: #### C MP #### [facility] [address] [address] [address] Nancy Montalvo EGFR-NON AF CUBAN 17 mL/min/1.73m2 Critically low >=60 [facility] Comment on above: Performed By: #### C MP #### [facility] [address] [address] [address] Nancy Montalvo Glucose [Mass/Vol] 368 mg/dL Critically high 74-106 [facility] Comment on above: Performed By: #### C MP #### [facility] [address] [address] [address] Nancy Montalvo Potassium [Moles/Vol] 3.7 mmol/L Normal 3.5-5.1 [facility] Comment on above: Performed By: #### C MP #### [facility] [address] [address] [address] Nancy Montalvo Sodium [Moles/Vol] 134 mmol/L Critically low 136-145 [facility] Comment on above: Performed By: #### C MP #### [facility] [address] [address] [address] Nancy Montalvo Urea nitrogen [Mass/Vol] 33.0 mg/dL Critically high 7.0-18.0 [facility] Comment on above: Performed By: #### C MP #### [facility] [address] [address] [address] Nancy Montalvo Urea nitrogen/Creatinine [Mass ratio] 12.5 mg/mg Normal [facility] Comment on above: Performed By: #### C MP #### [facility] [address] [address] [address] Nancy Montalvo PROTIMEon 07-10-2022 INR Coag (PPP) [Relative time] 3.53 {INR} Normal [facility] Comment on above: Performed By: #### P OCGLUC #### [facility] [address] [place] [address] Dr. Nancy Montalvo INR GUIDELINES SEE BELOW Normal [facility] Comment on above: Result Comment: ADITYA RED INR: 2.0 - 3.0 CONDITIONS NOT LISTED BELOW 2.5 - 3.5 FOR PROSTHETIC HEART VALVE REPLACEMENT 2.5 - 3.5 RECURRENT THROMBOSIS Performed By: #### P OCGLUC #### [facility] [address] [address] [address] Nancy Montalvo PT Coag (PPP) [Time] 34.8 s Critically high 9.0-11.6 [facility] Comment on above: Performed By: #### P OCGLUC #### [facility] [address] [place] [address] Dr. Nancy Montalvo TROPONIN, HIGH SENSITIVITYon 07-10-2022 HSTROP 61.9 pg/mL Critically high 4.0-51.3 [facility] Comment on above: Result Comment: CUT- OFF POINTS HAVE BEEN ESTABLISHED BASED ON THE FOURTH UNIVERSAL DEFINITIONS OF MYOCARDIAL INFARCTION. THE UPPER REFERENCE LIMIT (URL) OF TROPONIN, DEFINED THE 99TH PERCENTILE OF cTnI DISTRIBUTION IN A REFERENCE POPULATION, HAS BEEN CONFIRMED THE DECISION THRESHOLD FOR [place] DIAGNOSIS. Performed By: #### C MP #### [facility] [address] [address] [address] Nancy Montalvo URINE MICROSCOPIC ONLYon 04- 24-2023 BACTERIA LARGE Abnormal NONE SEEN [facility] Comment on above: Performed By: #### P OCGLUC #### [facility] [address] [address] [address] Nancy Montalvo Bacteria identified Cx Nom (U) INDICATED Normal [facility] Comment on above: Performed By: #### P OCGLUC #### [facility] [address] [place] [address] Dr. Nancy Montalvo CAST SEEN Abnormal NONE SEEN [facility] Comment on above: Performed By: #### P OCGLUC #### [facility] [address] [place] [address] Dr. Nancy Montalvo Crystals LM Nom (Urine sed) NONE SEEN Normal NONE SEEN [facility] Comment on above: Performed By: #### P OCGLUC #### [facility] [address] [place] [address] Dr. Nancy Montalvo Epithelial cells LM Ql (Urine sed) FEW Abnormal NONE SEEN /RARE [facility] Comment on above: Performed By: #### P OCGLUC #### [facility] [address] [place] [address] Dr. Nancy Montalvo FINE GRANULAR CAST RARE Normal [facility] Comment on above: Performed By: #### P OCGLUC #### [facility] [address] [place] [address] Dr. Nancy Montalvo HYALINE CAST RARE Normal [facility] Comment on above: Performed By: #### P OCGLUC #### [facility] [address] [place] [address] Dr. Nancy Montalvo MUCOUS NONE SEEN Normal NONE SEEN [facility] Comment on above: Performed By: #### P OCGLUC #### [facility] [address] [place] [address] Dr. Nancy Montalvo RBC 10-20 Abnormal 0-2 [facility] Comment on above: Performed By: #### P OCGLUC #### [facility] [address] [place] [address] Dr. Nancy Montalvo WBC 10-20 Abnormal NONE SEEN [facility] Comment on above: Performed By: #### P OCGLUC #### [facility] [address] [place] [address] [id number] [address] Nancy Montalvo XR CHEST 1 Von [...] by: HANNA BAILON Date: 2022-07-10 14:14 Normal [facility] CULTURE URINEon 04-27-2022 CULTURE URINE Isolate 1 [...] Trimethoprim/Sulfamethoxazo le <=20 S F Normal [facility] Comment on above: Performed By: #### A 1C #### [facility] [address] [place] [address] Dr. Nancy Montalvo INSULINon 04-26-2022 Insulin 42.6 uIU/mL Critically high 2.6-24.9 [facility] Comment on above: Performed By: #### A 1C #### [facility] [address] [place] [address] Dr. Nancy Montalvo CBC AUTO DIFFon 04-25-2022 BASO # 0.1 103/ul Normal 0.0-0.1 [facility] Comment on above: Performed By: #### A 1C #### [facility] [address] [place] [address] Dr. Nancy Montalvo Basophils/100 WBC (Bld) 0.5 % Normal 0.2-2.0 [facility] Comment on above: Performed By: #### A 1C #### [facility] [address] [place] [address] Dr. Nancy Montalvo EO # 0.4 103/ul Normal 0.0-0.7 [facility] Comment on above: Performed By: #### A 1C #### [facility] [address] [place] [address] Dr. Nancy Montalvo Eosinophils/100 WBC (Bld) 3.1 % Normal 0.9-7.0 [facility] Comment on above: Performed By: #### A 1C #### [facility] [address] [place] [address] Dr. Nancy Montalvo Erythrocyte distribution width (RBC) [Ratio] 14.6 % Normal 11.0-15.0 [facility] Comment on above: Performed By: #### A 1C #### [facility] [address] [place] [address] Dr. Nancy Montalvo Hematocrit (Bld) [Volume fraction] 39.3 % Normal 36.0-48.0 [facility] Comment on above: Performed By: #### A 1C #### [facility] [address] [place] [address] Dr. Nancy Montalvo Hemoglobin (Bld) [Mass/Vol] 11.9 g/dL Critically low 12.0-16.0 [facility] Comment on above: Performed By: #### A 1C #### [facility] [address] [place] [address] Dr. Nancy Montalvo IG # 0.03 10e3/ul Normal 0.00-0.03 [facility] Comment on above: Performed By: #### A 1C #### [facility] [address] [place] [address] Dr. Nancy Montalvo IG % 0.2 % Normal 0.0-0.5 [facility] Comment on above: Performed By: #### A 1C #### [facility] [address] [place] [address] Dr. Nancy Montalvo LYMPH # 3.6 103/ul Normal 1.2-3.8 [facility] Comment on above: Performed By: #### A 1C #### [facility] [address] [place] [address] Dr. Nancy Montalvo Lymphocytes/100 WBC (Bld) 29.7 % Normal 20.5-60.0 [facility] Comment on above: Performed By: #### A 1C #### [facility] [address] [place] [address] Dr. Nancy Montalvo MANUAL DIFF REQ NO Normal [facility] Comment on above: Performed By: #### A 1C #### [facility] [address] [place] [address] Dr. Nancy Montalvo MCH (RBC) [Entitic mass] 31.9 pg Normal 26.7-34.0 [facility] Comment on above: Performed By: #### A 1C #### [facility] [address] [place] [address] Dr. Nancy Montalvo MCHC (RBC) [Mass/Vol] 30.3 g/dL Normal 29.9-35.2 [facility] Comment on above: Performed By: #### A 1C #### [facility] [address] [place] [address] Dr. Nancy Montalvo MCV (RBC) [Entitic vol] 105.4 fL Critically high 81.0-99.0 [facility] Comment on above: Performed By: #### A 1C #### [facility] [address] [address] [address] Nancy Montalvo MONO # 0.8 103/ul Normal 0.3-0.8 [facility] Comment on above: Performed By: #### A 1C #### [facility] [address] [address] [address] Nancy Montalvo Monocytes/100 WBC (Bld) 7.0 % Normal 1.7-12.0 [facility] Comment on above: Performed By: #### A 1C #### [facility] [address] [address] [address] Nancy Montalvo NEUT # 7.2 103/ul Critically high 1.4-6.5 [facility] Comment on above: Performed By: #### A 1C #### [facility] [address] [place] [address] Dr. Nancy Montalvo Neutrophils/100 WBC (Bld) 59.5 % Normal 43.0-75.0 [facility] Comment on above: Performed By: #### A 1C #### [facility] [address] [address] [address] Nancy Montalvo Platelet mean volume (Bld) [Entitic vol] 11.5 fL Normal 9.5-13.5 [facility] Comment on above: Performed By: #### A 1C #### [facility] [address] [place] [address] Dr. Nancy Montalvo PLT 241 103/ul Normal 150-450 [facility] Comment on above: Performed By: #### A 1C #### [facility] [address] [address] [address] Nancy Montalvo RBC 3.73 106/ul Critically low 4.20-5.40 [facility] Comment on above: Performed By: #### A 1C #### [facility] [address] [address] [address] Nancy Montalvo WBC 12.0 103/ul Critically high 4.0-11.0 [facility] Comment on above: Performed By: #### A 1C #### [facility] [address] [address] [address] Nancy Montalvo FREE THYROXINE INDEX T7on FTI 2.01 Normal 1.30-4.50 [facility] Comment on above: Performed By: #### B LDCX1 #### [facility] [address] [place] [address] Dr. Nancy Montalvo T3U 33.0 % Normal 30.0-39.0 [facility] Comment on above: Performed By: #### B LDCX1 #### [facility] [address] [place] [address] Dr. Nancy Montalvo T4 [Mass/Vol] 6.10 ug/dL Normal 4.80-13.90 [facility] Comment on above: Performed By: #### B LDCX1 #### [facility] [address] [place] [address] Dr. Nancy Montalvo GLYCOHEMOGLOBIN A1Con 2022 ADA RECOMMENDATION SEE BELOW Normal [facility] Comment on above: Result Comment: ADA RECOMMENDED LIMIT 4.0 - 6.0 ADA THERAPEUTIC TARGET < 7.0 ACTION SUGGESTED > 7.0 Performed By: #### U AMIC #### [facility] [address] [place] [address] Dr. Nancy Montalvo Glucose [Mass/Vol] 134 mg/dL Normal [facility] Comment on above: Performed By: #### U AMIC #### [facility] [address] [place] [address] Dr. Nancy Montalvo HbA1c (Bld) [Mass fraction] 6.3 % Critically high 4.5-6.2 [facility] Comment on above: Performed By: #### U AMIC #### [facility] [address] [place] [address] Dr. Nancy Montalvo IRONon 04-25-2022 Iron [Mass/Vol] 98.0 ug/dL Normal 50.0-170.0 [facility] Comment on above: Performed By: #### C MP #### [facility] [address] [place] [address] Dr. Nancy Montalvo LIPID PROFILEon 04-25-2022 CHOL-HDL RATIO NORM SEE BELOW Normal [facility] Comment on above: Result Comment: 3.3 - 4.4 LOW RISK 4.4 - 7.1 AVERAGE RISK 7.1 - 11.0 MODERATE RISK >11.0 HIGH RISK Performed By: #### B LDCX1 #### [facility] [address] [address] [address] Nancy Montalvo Cholesterol [Mass/Vol] 156 mg/dL Normal <=200 [facility] Comment on above: Performed By: #### B LDCX1 #### [facility] [address] [address] [address] Nancy Montalvo Cholesterol in HDL [Mass/Vol] 55 mg/dL Normal 40-60 [facility] Comment on above: Performed By: #### B LDCX1 #### [facility] [address] [address] [address] Nancy Montalvo Cholesterol in LDL [Mass/Vol] 74.4 mg/dL Normal [facility] Comment on above: Performed By: #### B LDCX1 #### [facility] [address] [address] [address] Nancy Montalvo Cholesterol.total/C holesterol in HDL [Mass ratio] 2.8 {ratio} Normal [facility] Comment on above: Performed By: #### B LDCX1 #### [facility] [address] [address] [address] Nancy Montalvo HDL NORMAL > or = 60 mg/dl - LO W CARDIOVASCULAR RISK <40 mg/dl - HIGH CARDIOVASCULAR RISK Normal [facility] Comment on above: Performed By: #### B LDCX1 #### [facility] [address] [address] [address] Nancy Montalvo LDL CALC NORMAL SEE BELOW Normal [facility] Comment on above: Result Comment: <100 mg/dl OPTIMAL 100 - 129 mg/dl NEAR OR ABOVE OPTIMAL 130 - 159 mg/dl BORDERLINE HIGH 160 - 189 mg/dl HIGH >190 mg/dl VERY HIGH Performed By: #### B LDCX1 #### [facility] [address] [address] [address] Nancy Montalvo Triglyceride [Mass/Vol] 133 mg/dL Normal <=150 [facility] Comment on above: Performed By: #### B LDCX1 #### [facility] [address] [place] [address] Dr. Nancy Montalvo VLDL CALC 26.6 mg/dL Normal [facility] Comment on above: Performed By: #### B LDCX1 #### [facility] [address] [place] [address] Dr. Nancy Montalvo PROF 14(COMP METB)on 023 Albumin [Mass/Vol] 3.5 g/dL Normal 3.4-5.[address] [facility] Comment on above: Performed By: #### B LDCX1 #### [facility] [address] [place] [address] Dr. Nancy Montalvo Albumin/Globulin [Mass ratio] 0.9 {ratio} Normal [facility] Comment on above: Performed By: #### B LDCX1 #### [facility] [address] [place] [address] Dr. Nancy Montalvo ALP [Catalytic activity/Vol] 96 U/L Normal 46-116 [facility] Comment on above: Performed By: #### B LDCX1 #### [facility] [address] [place] [address] Dr. Nancy Montalvo ALT [Catalytic activity/Vol] 58 U/L Normal 14-59 [facility] Comment on above: Performed By: #### B LDCX1 #### [facility] [address] [place] [address] Dr. Nancy Montalvo Anion gap [Moles/Vol] 15.4 mmol/L Normal [facility] Comment on above: Performed By: #### B LDCX1 #### [facility] [address] [place] [address] Dr. Nancy Montalvo AST [Catalytic activity/Vol] 40 U/L Critically high 15-37 [facility] Comment on above: Performed By: #### B LDCX1 #### [facility] [address] [place] [address] Dr. Nancy Montalvo Bilirubin [Mass/Vol] 0.3 mg/dL Normal 0.2-1.0 [facility] Comment on above: Performed By: #### B LDCX1 #### [facility] [address] [address] [address] Nancy Montalvo Calcium [Mass/Vol] 9.0 mg/dL Normal 8.5-10.[address] [facility] Comment on above: Performed By: #### B LDCX1 #### [facility] [address] [address] [address] Nancy Montalvo Chloride [Moles/Vol] 107 mmol/L Normal 98-107 [facility] Comment on above: Performed By: #### B LDCX1 #### [facility] [address] [place] [address] Dr. Nancy Montalvo CO2 [Moles/Vol] 23.4 mmol/L Normal 21.0-32.0 [facility] Comment on above: Performed By: #### B LDCX1 #### [facility] [address] [place] [address] Dr. Nancy Montalvo Creatinine [Mass/Vol] 2.70 mg/dL Critically high 0.55-1.02 [facility] Comment on above: Performed By: #### B LDCX1 #### [facility] [address] [place] [address] Dr. Nancy Montalvo EGFR-AF CUBAN 20 mL/min/1.73m2 Critically low >=60 [facility] Comment on above: Performed By: #### B LDCX1 #### [facility] [address] [place] [address] Dr. Nancy Montalvo EGFR-NON AF CUBAN 17 mL/min/1.73m2 Critically low >=60 [facility] Comment on above: Performed By: #### B LDCX1 #### [facility] [address] [place] [address] Dr. Nancy Montalvo Globulin (S) [Mass/Vol] 3.9 g/dL Normal [facility] Comment on above: Performed By: #### B LDCX1 #### [facility] [address] [address] [address] Nancy Montalvo Glucose [Mass/Vol] 154 mg/dL Critically high 74-106 [facility] Comment on above: Performed By: #### B LDCX1 #### [facility] [address] [place] [address] Dr. Nancy Montalvo Potassium [Moles/Vol] 3.8 mmol/L Normal 3.5-5.1 [facility] Comment on above: Performed By: #### B LDCX1 #### [facility] [address] [place] [address] Dr. Nancy Montalvo Protein [Mass/Vol] 7.4 g/dL Normal 6.4-8.[address] [facility] Comment on above: Performed By: #### B LDCX1 #### [facility] [address] [place] [address] Dr. Nancy Montalvo Sodium [Moles/Vol] 142 mmol/L Normal 136-[address] [facility] Comment on above: Performed By: #### B LDCX1 #### [facility] [address] [place] [address] Dr. Nancy Montalvo Urea nitrogen [Mass/Vol] 46.0 mg/dL Critically high 7.0-18.0 [facility] Comment on above: Performed By: #### B LDCX1 #### [facility] [address] [place] [address] Dr. Nancy Montalvo Urea nitrogen/Creatinine [Mass ratio] 17.0 mg/mg Normal [facility] Comment on above: Performed By: #### B LDCX1 #### [facility] [address] [place] [address] Dr. Nancy Montalvo TSHon 04-25-2022 TSH 2.035 uIU/mL Normal 0.358-3.740 [facility] Comment on above: Performed By: #### B LDCX1 #### [facility] [address] [place] [address] Dr. Nancy Montalvo UA RANDOM W/MICROSCOPICon BACTERIA MODERATE Abnormal NONE SEEN [facility] Comment on above: Performed By: #### U AMIC #### [facility] [address] [address] [address] Nancy Montalvo Bilirubin Ql (U) Negative Normal NEGATIVE [facility] Comment on above: Performed By: #### U AMIC #### [facility] [address] [address] [address] Nancy Montalvo CAST NONE SEEN Normal NONE SEEN [facility] Comment on above: Performed By: #### U AMIC #### [facility] [address] [address] [address] Nancy Montalvo Clarity (U) CLEAR Normal CLEAR [facility] Comment on above: Performed By: #### U AMIC #### [facility] [address] [address] [address] Nancy Montalvo Color (U) LT. YELLOW Normal YELLOW [facility] Comment on above: Performed By: #### U AMIC #### [facility] [address] [address] [address] Nancy Montalvo Crystals LM Nom (Urine sed) NONE SEEN Normal NONE SEEN [facility] Comment on above: Performed By: #### U AMIC #### [facility] [address] [address] [address] Nancy Montalvo Epithelial cells LM Ql (Urine sed) FEW Abnormal NONE SEEN /RARE [facility] Comment on above: Performed By: #### U AMIC #### [facility] [address] [address] [address] Nancy Montalvo Glucose Ql (U) Negative Normal NEGATIVE [facility] Comment on above: Performed By: #### U AMIC #### [facility] [address] [address] [address] Nancy Montalvo Hemoglobin Ql (U) Negative Normal NEGATIVE [facility] Comment on above: Performed By: #### U AMIC #### [facility] [address] [address] [address] Nancy Montalvo Ketones Ql (U) Negative Normal NEGATIVE [facility] Comment on above: Performed By: #### U AMIC #### [facility] [address] [address] [address] Nancy Montalvo LEUKOCYTES MODERATE Abnormal NEGATIVE [facility] Comment on above: Performed By: #### U AMIC #### [facility] [address] [place] [address] Dr. Nancy Montalvo MUCOUS NONE SEEN Normal NONE SEEN [facility] Comment on above: Performed By: #### U AMIC #### [facility] [address] [place] [address] Dr. Nancy Montalvo Nitrite Ql (U) Positive Abnormal NEGATIVE [facility] Comment on above: Performed By: #### U AMIC #### [facility] [address] [place] [address] Dr. Nancy Montalvo pH (U) 5.5 [pH] Normal 5-9 [facility] Comment on above: Performed By: #### U AMIC #### [facility] [address] [place] [address] Dr. Nancy Montalvo RBC 0-2 Normal 0-2 [facility] Comment on above: Performed By: #### U AMIC #### [facility] [address] [place] [address] Dr. Nancy Montalvo SPEC GRAVITY 1.015 Normal 1.005-<=1.0 25 [facility] Comment on above: Performed By: #### U AMIC #### [facility] [address] [place] [address] Dr. Nancy Montalvo UA PROTEIN Negative Normal NEGATIVE/ TRACE [facility] Comment on above: Performed By: #### U AMIC #### [facility] [address] [place] [address] Dr. Nancy Montalvo Urobilinogen Qn (U) 0.2 {Grant'U}/dL Normal 0.2 - 1. 0 [facility] Comment on above: Performed By: #### U AMIC #### [facility] [address] [place] [address] Dr. Nancy Montalvo WBC 10-20 Abnormal NONE SEEN [facility] Comment on above: Performed By: #### U AMIC #### [facility] [address] [place] [address] Dr. Nancy Montalvo ECHOCARDIO M/2D COMPLETEon 0 03-29-2022 ECHOCARDIO M/2D COMPLETE Patient: GEMMA LEWIS Exam Date: 03/29/2022 : 1935 Gender:F Ordering : BERNICE DELEON Admission #: [id number] Family : DR CHASE MÉNDEZ . Order #: [id number] CLICK HERE TO VIEW EXAM ECHOCARDIOGRAM REPORT [...] Dede Ma M.D. on 03/31/2022 at 12:16 [facility] GLYCOHEMOGLOBIN A1Con 2021 ADA RECOMMENDATION SEE BELOW Normal [facility] Comment on above: Result Comment: ADA RECOMMENDED LIMIT 4.0 - 6.0 ADA THERAPEUTIC TARGET < 7.0 ACTION SUGGESTED > 7.0 Performed By: #### A 1C #### [facility] [address] [place] [address] Dr. Nancy Montalvo Glucose [Mass/Vol] 97 mg/dL Normal [facility] Comment on above: Performed By: #### A 1C #### [facility] [address] [place] [address] Dr. Nancy Montalvo HbA1c (Bld) [Mass fraction] 5.0 % Normal 4.5-6.2 [facility] Comment on above: Performed By: #### A 1C #### [facility] [address] [place] [address] Dr. Nancy Montalvo PROTIMEon 10-24-2021 INR Coag (PPP) [Relative time] 2.17 {INR} Normal [facility] Comment on above: Performed By: #### A 1C #### [facility] [address] [place] [address] Dr. Nancy Montalvo INR GUIDELINES SEE BELOW Normal [facility] Comment on above: Result Comment: ADITYA RED INR: 2.0 - 3.0 CONDITIONS NOT LISTED BELOW 2.5 - 3.5 FOR PROSTHETIC HEART VALVE REPLACEMENT 2.5 - 3.5 RECURRENT THROMBOSIS Performed By: #### A 1C #### [facility] [address] [place] [address] Dr. Nancy Montalvo PT Coag (PPP) [Time] 22.3 s Critically high 9.0-11.6 [facility] Comment on above: Performed By: #### A 1C #### [facility] [address] [place] [address] Dr. Nnacy Montalvo PTTon 10-24-2021 aPTT Coag (Bld) [Time] 35.0 s Normal 22.3-36.2 [facility] Comment on above: Performed By: #### A 1C #### [facility] [address] [place] [address] Dr. Nancy Montalvo BNPon 09-16-2021 Natriuretic peptide B (Bld) [Mass/Vol] 1955.0 pg/mL Critically high <=1,800.0 [facility] Comment on above: Performed By: #### P OCGLUC #### [facility] [address] [address] [address] Nancy Montalvo CBC AUTO DIFFon 09-16-2021 BASO # 0.0 103/ul Normal 0.0-0.1 [facility] Comment on above: Performed By: #### P OCGLUC #### [facility] [address] [address] [address] Nancy Montalvo Basophils/100 WBC (Bld) 0.4 % Normal 0.2-2.0 [facility] Comment on above: Performed By: #### P OCGLUC #### [facility] [address] [address] [address] Nancy Montalvo EO # 0.2 103/ul Normal 0.0-0.7 [facility] Comment on above: Performed By: #### P OCGLUC #### [facility] [address] [place] [address] Dr. Nancy Montalvo Eosinophils/100 WBC (Bld) 3.0 % Normal 0.9-7.0 [facility] Comment on above: Performed By: #### P OCGLUC #### [facility] [address] [place] [address] Dr. Nancy Montalvo Erythrocyte distribution width (RBC) [Ratio] 13.0 % Normal 11.0-15.0 [facility] Comment on above: Performed By: #### P OCGLUC #### [facility] [address] [address] [address] Nancy Montalvo Hematocrit (Bld) [Volume fraction] 29.3 % Critically low 36.0-48.0 [facility] Comment on above: Performed By: #### P OCGLUC #### [facility] [address] [place] [address] Dr. Nancy Montalvo Hemoglobin (Bld) [Mass/Vol] 9.2 g/dL Critically low 12.0-16.0 [facility] Comment on above: Performed By: #### P OCGLUC #### [facility] [address] [place] [address] Dr. Nancy Montalvo IG # 0.02 10e3/ul Normal 0.00-0.03 [facility] Comment on above: Performed By: #### P OCGLUC #### [facility] [address] [address] [address] Nancy Montalvo IG % 0.2 % Normal 0.0-0.5 [facility] Comment on above: Performed By: #### P OCGLUC #### [facility] [address] [address] [address] Nancy Montalvo LYMPH # 3.1 103/ul Normal 1.2-3.8 [facility] Comment on above: Performed By: #### P OCGLUC #### [facility] [address] [address] [address] Nancy Montalvo Lymphocytes/100 WBC (Bld) 37.7 % Normal 20.5-60.0 [facility] Comment on above: Performed By: #### P OCGLUC #### [facility] Laboratory [address] [place] [address] Dr. Nancy Montalvo MANUAL DIFF REQ NO Normal [facility] Comment on above: Performed By: #### P OCGLUC #### [facility] [address] [address] [address] Nancy Montalvo MCH (RBC) [Entitic mass] 32.4 pg Normal 26.7-34.0 [facility] Comment on above: Performed By: #### P OCGLUC #### [facility] [address] [place] [address] Dr. Nancy Montalvo MCHC (RBC) [Mass/Vol] 31.4 g/dL Normal 29.9-35.2 [facility] Comment on above: Performed By: #### P OCGLUC #### [facility] [address] [place] [address] Dr. Nancy Montalvo MCV (RBC) [Entitic vol] 103.2 fL Critically high 81.0-99.0 [facility] Comment on above: Performed By: #### P OCGLUC #### [facility] [address] [place] [address] Dr. Nancy Montalvo MONO # 0.8 103/ul Normal 0.3-0.8 [facility] Comment on above: Performed By: #### P OCGLUC #### [facility] [address] [address] [address] Nancy Montalvo Monocytes/100 WBC (Bld) 9.3 % Normal 1.7-12.0 [facility] Comment on above: Performed By: #### P OCGLUC #### [facility] [address] [address] [address] Nancy Montalvo NEUT # 4.0 103/ul Normal 1.4-6.5 [facility] Comment on above: Performed By: #### P OCGLUC #### [facility] [address] [address] [address] Nancy Montalvo Neutrophils/100 WBC (Bld) 49.4 % Normal 43.0-75.0 [facility] Comment on above: Performed By: #### P OCGLUC #### [facility] [address] [address] [address] Nancy Montalvo Platelet mean volume (Bld) [Entitic vol] 12.5 fL Normal 9.5-13.5 [facility] Comment on above: Performed By: #### P OCGLUC #### [facility] [address] [address] [address] Nancy Montalvo PLT 137 103/ul Critically low 150-450 [facility] Comment on above: Performed By: #### P OCGLUC #### [facility] [address] [address] [address] Nancy Montalvo RBC 2.84 106/ul Critically low 4.20-5.40 [facility] Comment on above: Performed By: #### P OCGLUC #### [facility] [address] [address] [address] Nancy Montalvo WBC 8.1 103/ul Normal 4.0-11.0 [facility] Comment on above: Performed By: #### P OCGLUC #### [facility] [address] [address] [address] Nancy Montalvo PROF 14(COMP METB)on 022 Albumin [Mass/Vol] 2.5 g/dL Critically low 3.4-5.0 [facility] Comment on above: Performed By: #### A 1C #### [facility] [address] [place] [address] Dr. Nancy Montalvo Albumin/Globulin [Mass ratio] 0.8 {ratio} Normal [facility] Comment on above: Performed By: #### A 1C #### [facility] [address] [place] [address] Dr. Nancy Montalvo ALP [Catalytic activity/Vol] 52 U/L Normal 46-116 [facility] Comment on above: Performed By: #### A 1C #### [facility] [address] [place] [address] Dr. Nancy Montalvo ALT [Catalytic activity/Vol] 39 U/L Normal 14-59 [facility] Comment on above: Performed By: #### A 1C #### [facility] [address] [place] [address] Dr. Nancy Montalvo Anion gap [Moles/Vol] 10.7 mmol/L Normal [facility] Comment on above: Performed By: #### A 1C #### [facility] [address] [place] [address] Dr. Nancy Montalvo AST [Catalytic activity/Vol] 36 U/L Normal 15-37 [facility] Comment on above: Performed By: #### A 1C #### [facility] [address] [place] [address] Dr. Nancy Montalvo Bilirubin [Mass/Vol] 0.4 mg/dL Normal 0.2-1.0 [facility] Comment on above: Performed By: #### A 1C #### [facility] [address] [place] [address] Dr. Nancy Montalvo Calcium [Mass/Vol] 8.7 mg/dL Normal 8.5-10.1 [facility] Comment on above: Performed By: #### A 1C #### [facility] [address] [place] [address] Dr. Nancy Montalvo Chloride [Moles/Vol] 105 mmol/L Normal 98-107 [facility] Comment on above: Performed By: #### A 1C #### [facility] [address] [address] [address] Nancy Montalvo CO2 [Moles/Vol] 26.6 mmol/L Normal 21.0-32.0 [facility] Comment on above: Performed By: #### A 1C #### [facility] [address] [address] [address] Nancy Montalvo Creatinine [Mass/Vol] 2.29 mg/dL Critically high 0.55-1.02 [facility] Comment on above: Performed By: #### A 1C #### [facility] [address] [address] [address] Nancy Montalvo EGFR-AF CUBAN 24 mL/min/1.73m2 Critically low >=60 [facility] Comment on above: Performed By: #### A 1C #### [facility] [address] [address] [address] Nancy Montalvo EGFR-NON AF CUBAN 20 mL/min/1.73m2 Critically low >=60 [facility] Comment on above: Performed By: #### A 1C #### [facility] [address] [address] [address] Nancy Montalvo Globulin (S) [Mass/Vol] 3.2 g/dL Normal [facility] Comment on above: Performed By: #### A 1C #### [facility] [address] [address] [address] Nancy Montalvo Glucose [Mass/Vol] 88 mg/dL Normal 74-[address] [facility] Comment on above: Performed By: #### A 1C #### [facility] [address] [address] [address] Nancy Montalvo Potassium [Moles/Vol] 4.3 mmol/L Normal 3.5-5.1 [facility] Comment on above: Performed By: #### A 1C #### [facility] [address] [address] [address] Nancy Montalvo Protein [Mass/Vol] 5.7 g/dL Critically low 6.4-8.2 [facility] Comment on above: Performed By: #### A 1C #### [facility] [address] [place] [address] Dr. Nancy Montalvo Sodium [Moles/Vol] 138 mmol/L Normal 136-145 [facility] Comment on above: Performed By: #### A 1C #### [facility] [address] [place] [address] Dr. Nancy Montalvo Urea nitrogen [Mass/Vol] 58.0 mg/dL Critically high 7.0-18.0 [facility] Comment on above: Performed By: #### A 1C #### [facility] [address] [place] [address] Dr. Nancy Montalvo Urea nitrogen/Creatinine [Mass ratio] 25.3 mg/mg Normal [facility] Comment on above: Performed By: #### A 1C #### [facility] [address] [place] [address] Dr. Nancy Montalvo PROTIMEon 09-16-2021 INR Coag (PPP) [Relative time] 2.73 {INR} Normal [facility] Comment on above: Performed By: #### P T #### [facility] [address] [place] [address] Dr. Nancy Montalvo INR GUIDELINES SEE BELOW Normal [facility] Comment on above: Result Comment: ADITYA RED INR: 2.0 - 3.0 CONDITIONS NOT LISTED BELOW 2.5 - 3.5 FOR PROSTHETIC HEART VALVE REPLACEMENT 2.5 - 3.5 RECURRENT THROMBOSIS Performed By: #### P T #### [facility] [address] [place] [address] Dr. Nancy Montalvo PT Coag (PPP) [Time] 27.6 s Critically high 9.0-11.6 [facility] Comment on above: Performed By: #### P T #### [facility] [address] [place] [address] Dr. Nancy Montalvo BNPon 09-15-2021 Natriuretic peptide B (Bld) [Mass/Vol] 1425.0 pg/mL Normal <=1,800.0 [facility] Comment on above: Performed By: #### U AMIC #### [facility] [address] [place] [address] Dr. Nancy Montalvo CBC AUTO DIFFon 09-15-2021 BASO # 0.0 103/ul Normal 0.0-0.1 [facility] Comment on above: Performed By: #### C MP #### [facility] [address] [address] [address] Nancy Montalvo Basophils/100 WBC (Bld) 0.4 % Normal 0.2-2.0 [facility] Comment on above: Performed By: #### C MP #### [facility] [address] [address] [address] Nancy Montalvo EO # 0.2 103/ul Normal 0.0-0.7 [facility] Comment on above: Performed By: #### C MP #### [facility] [address] [place] [address] Dr. Nancy Montalvo Eosinophils/100 WBC (Bld) 3.1 % Normal 0.9-7.0 [facility] Comment on above: Performed By: #### C MP #### [facility] [address] [place] [address] Dr. Nancy Montalvo Erythrocyte distribution width (RBC) [Ratio] 13.2 % Normal 11.0-15.0 [facility] Comment on above: Performed By: #### C MP #### [facility] [address] [place] [address] Dr. Nancy Montalvo Hematocrit (Bld) [Volume fraction] 30.1 % Critically low 36.0-48.0 [facility] Comment on above: Performed By: #### C MP #### [facility] [address] [place] [address] Dr. Nancy Montalvo Hemoglobin (Bld) [Mass/Vol] 9.3 g/dL Critically low 12.0-16.0 [facility] Comment on above: Performed By: #### C MP #### [facility] [address] [place] [address] Dr. Nancy Montalvo IG # 0.02 10e3/ul Normal 0.00-0.03 [facility] Comment on above: Performed By: #### C MP #### [facility] [address] [place] [address] Dr. Nancy Montalvo IG % 0.3 % Normal 0.0-0.5 [facility] Comment on above: Performed By: #### C MP #### [facility] [address] [place] [address] Dr. Nancy Montalvo LYMPH # 2.8 103/ul Normal 1.2-3.8 [facility] Comment on above: Performed By: #### C MP #### [facility] [address] [place] [address] Dr. Nancy Montalvo Lymphocytes/100 WBC (Bld) 35.8 % Normal 20.5-60.0 [facility] Comment on above: Performed By: #### C MP #### [facility] [address] [place] [address] Dr. Nancy Montalvo MANUAL DIFF REQ NO Normal [facility] Comment on above: Performed By: #### C MP #### [facility] [address] [place] [address] Dr. Nancy Montalvo MCH (RBC) [Entitic mass] 32.3 pg Normal 26.7-34.0 [facility] Comment on above: Performed By: #### C MP #### [facility] [address] [place] [address] Dr. Nancy Montalvo MCHC (RBC) [Mass/Vol] 30.9 g/dL Normal 29.9-35.2 [facility] Comment on above: Performed By: #### C MP #### [facility] [address] [place] [address] Dr. Nancy Montalvo MCV (RBC) [Entitic vol] 104.5 fL Critically high 81.0-99.0 [facility] Comment on above: Performed By: #### C MP #### [facility] [address] [place] [address] Dr. Nancy Montalvo MONO # 0.7 103/ul Normal 0.3-0.8 [facility] Comment on above: Performed By: #### C MP #### [facility] [address] [place] [address] Dr. Nancy Montalvo Monocytes/100 WBC (Bld) 9.4 % Normal 1.7-12.0 [facility] Comment on above: Performed By: #### C MP #### [facility] [address] [place] [address] Dr. Nancy Montalvo NEUT # 4.0 103/ul Normal 1.4-6.5 [facility] Comment on above: Performed By: #### C MP #### [facility] [address] [address] [address] Nancy Montalvo Neutrophils/100 WBC (Bld) 51.0 % Normal 43.0-75.0 [facility] Comment on above: Performed By: #### C MP #### [facility] [address] [place] [address] Dr. Nancy Montalvo Platelet mean volume (Bld) [Entitic vol] 12.6 fL Normal 9.5-13.5 [facility] Comment on above: Performed By: #### C MP #### [facility] [address] [place] [address] Dr. Nancy Montalvo PLT 132 103/ul Critically low 150-450 [facility] Comment on above: Performed By: #### C MP #### [facility] [address] [place] [address] Dr. Nancy Montalvo RBC 2.88 106/ul Critically low 4.20-5.40 [facility] Comment on above: Performed By: #### C MP #### [facility] [address] [place] [address] Dr. Nancy Montalvo WBC 7.9 103/ul Normal 4.0-11.0 [facility] Comment on above: Performed By: #### C MP #### [facility] [address] [place] [address] Dr. Nancy Montalvo PROF 14(COMP METB)on 022 Albumin [Mass/Vol] 2.5 g/dL Critically low 3.4-5.0 [facility] Comment on above: Performed By: #### U AMIC #### [facility] [address] [place] [address] Dr. Nancy Montalvo Albumin/Globulin [Mass ratio] 0.8 {ratio} Normal [facility] Comment on above: Performed By: #### U AMIC #### [facility] [address] [address] [address] Nancy Montalvo ALP [Catalytic activity/Vol] 54 U/L Normal 46-116 [facility] Comment on above: Performed By: #### U AMIC #### [facility] [address] [address] [address] Nancy Montalvo ALT [Catalytic activity/Vol] 39 U/L Normal 14-59 [facility] Comment on above: Performed By: #### U AMIC #### [facility] [address] [address] [address] Nancy Montalvo Anion gap [Moles/Vol] 13.5 mmol/L Normal [facility] Comment on above: Performed By: #### U AMIC #### [facility] [address] [address] [address] Nancy Montalvo AST [Catalytic activity/Vol] 33 U/L Normal 15-37 [facility] Comment on above: Performed By: #### U AMIC #### [facility] [address] [address] [address] Nancy Montalvo Bilirubin [Mass/Vol] 0.2 mg/dL Normal 0.2-1.0 [facility] Comment on above: Performed By: #### U AMIC #### [facility] [address] [address] [address] Nancy Montalvo Calcium [Mass/Vol] 8.5 mg/dL Normal 8.5-10.[address] [facility] Comment on above: Performed By: #### U AMIC #### [facility] [address] [address] [address] Nancy Montalvo Chloride [Moles/Vol] 104 mmol/L Normal 98-107 [facility] Comment on above: Performed By: #### U AMIC #### [facility] [address] [address] [address] Nancy Montalvo CO2 [Moles/Vol] 23.3 mmol/L Normal 21.0-32.0 [facility] Comment on above: Performed By: #### U AMIC #### [facility] [address] [address] [address] Nancy Montalvo Creatinine [Mass/Vol] 2.66 mg/dL Critically high 0.55-1.02 [facility] Comment on above: Performed By: #### U AMIC #### [facility] [address] [address] [address] Nancy Montalvo EGFR-AF CUBAN 21 mL/min/1.73m2 Critically low >=60 [facility] Comment on above: Performed By: #### U AMIC #### [facility] [address] [address] [address] Nancy Montalvo EGFR-NON AF CUBAN 17 mL/min/1.73m2 Critically low >=60 [facility] Comment on above: Performed By: #### U AMIC #### [facility] [address] [address] [address] Nancy Montalvo Globulin (S) [Mass/Vol] 3.2 g/dL Normal [facility] Comment on above: Performed By: #### U AMIC #### [facility] [address] [address] [address] Nancy Montalvo Glucose [Mass/Vol] 84 mg/dL Normal 74-[address] [facility] Comment on above: Performed By: #### U AMIC #### [facility] [address] [address] [address] Nancy Montalvo Potassium [Moles/Vol] 4.8 mmol/L Normal 3.5-5.1 [facility] Comment on above: Performed By: #### U AMIC #### [facility] [address] [address] [address] Nancy Montalvo Protein [Mass/Vol] 5.7 g/dL Critically low 6.4-8.2 [facility] Comment on above: Performed By: #### U AMIC #### [facility] [address] [address] [address] Nancy Montalvo Sodium [Moles/Vol] 136 mmol/L Normal 136-[address] [facility] Comment on above: Performed By: #### U AMIC #### [facility] [address] [address] [address] Nancy Montalvo Urea nitrogen [Mass/Vol] 66.0 mg/dL Critically high 7.0-18.0 [facility] Comment on above: Performed By: #### U AMIC #### [facility] [address] [address] [address] Nancy Montalvo Urea nitrogen/Creatinine [Mass ratio] 24.8 mg/mg Normal [facility] Comment on above: Performed By: #### U AMIC #### [facility] [address] [place] [address] Dr. Nancy Montalvo PROTIMEon 09-15-2021 INR Coag (PPP) [Relative time] 2.47 {INR} Normal [facility] Comment on above: Performed By: #### P OCGLUC #### [facility] [address] [place] [address] Dr. Nancy Montalvo INR GUIDELINES SEE BELOW Normal [facility] Comment on above: Result Comment: ADITYA RED INR: 2.0 - 3.0 CONDITIONS NOT LISTED BELOW 2.5 - 3.5 FOR PROSTHETIC HEART VALVE REPLACEMENT 2.5 - 3.5 RECURRENT THROMBOSIS Performed By: #### P OCGLUC #### [facility] [address] [place] [address] Dr. Nancy Montalvo PT Coag (PPP) [Time] 25.1 s Critically high 9.0-11.6 [facility] Comment on above: Performed By: #### P OCGLUC #### [facility] [address] [place] [address] Dr. Nancy Montalvo BNPon 09-14-2021 Natriuretic peptide B (Bld) [Mass/Vol] 1255.0 pg/mL Normal <=1,800.0 [facility] Comment on above: Performed By: #### P OCGLUC #### [facility] [address] [place] [address] Dr. Nancy Montalvo CBC W MANUAL DIFFon 09-15-19 22 ATYPICAL LYMPH # Normal [facility] Comment on above: Performed By: #### P OCGLUC #### [facility] [address] [place] [address] Dr. Nancy Montalvo ATYPICAL LYMPH % Normal [facility] Comment on above: Performed By: #### P OCGLUC #### [facility] [address] [place] [address] Dr. Nancy Montalvo BAND # Normal 0.0-0.3 [facility] Comment on above: Performed By: #### P OCGLUC #### [facility] [address] [place] [address] Dr. Nancy Montalvo BAND % Normal 0-5 [facility] Comment on above: Performed By: #### P OCGLUC #### [facility] [address] [place] [address] Dr. Nancy Montalvo BASOM # 0.11 103/ul Critically high 0.00-0.10 [facility] Comment on above: Performed By: #### P OCGLUC #### [facility] [address] [place] [address] Dr. Nancy Montalvo BASOM % 1.0 % Normal 0.2-2.0 [facility] Comment on above: Performed By: #### P OCGLUC #### [facility] [address] [place] [address] Dr. Nancy Montalvo BLAST # Normal [facility] Comment on above: Performed By: #### P OCGLUC #### [facility] [address] [place] [address] Dr. Nancy Montalvo BLAST % Normal [facility] Comment on above: Performed By: #### P OCGLUC #### [facility] [address] [place] [address] Dr. Nancy Montalvo CORRECTED WBC Normal 4.0-11.0 [facility] Comment on above: Performed By: #### P OCGLUC #### [facility] [address] [place] [address] Dr. Nancy Montalvo EOS # 0.45 103/ul Normal 0.00-0.70 [facility] Comment on above: Performed By: #### P OCGLUC #### [facility] [address] [address] [address] Nancy Montalvo EOS% 4.0 % Normal 0.9-7.0 [facility] Comment on above: Performed By: #### P OCGLUC #### [facility] [address] [address] [address] Nancy Montalvo HCT 32.7 % Critically low 36.0-48.0 [facility] Comment on above: Performed By: #### P OCGLUC #### [facility] [address] [address] [address] Nancy Montalvo HGB 10.2 g/dl Critically low 12.0-16.0 [facility] Comment on above: Performed By: #### P OCGLUC #### [facility] [address] [place] [address] Dr. Nancy Montalvo LYMPHM # 5.38 103/ul Critically high 1.20-3.80 [facility] Comment on above: Performed By: #### P OCGLUC #### [facility] [address] [place] [address] Dr. Nancy Montalvo LYMPHM% 48.0 % Normal 20.5-60.0 [facility] Comment on above: Performed By: #### P OCGLUC #### [facility] [address] [address] [address] Nancy Montalvo MCH 32.4 pg Normal 26.7-34.0 [facility] Comment on above: Performed By: #### P OCGLUC #### [facility] [address] [address] [address] Nancy Montalvo MCHC 31.2 g/dl Normal 29.9-35.2 [facility] Comment on above: Performed By: #### P OCGLUC #### [facility] [address] [address] [address] Nancy Montalvo MCV 103.8 fL Critically high 81.0-99.0 [facility] Comment on above: Performed By: #### P OCGLUC #### [facility] [address] [address] [address] Nancy Montalvo METAMYELOCYTE # Normal [facility] Comment on above: Performed By: #### P OCGLUC #### [facility] [address] [address] [address] Nancy Montalvo METAMYELOCYTE % Normal [facility] Comment on above: Performed By: #### P OCGLUC #### [facility] [address] [address] [address] Nancy Montalvo MONOM# 0.56 103/ul Normal 0.30-0.80 [facility] Comment on above: Performed By: #### P OCGLUC #### [facility] [address] [address] [address] Nancy Montalvo MONOM% 5.0 % Normal 1.7-12.0 [facility] Comment on above: Performed By: #### P OCGLUC #### [facility] [address] [place] [address] Dr. Nancy Montalvo MPV 12.6 fL Normal 9.5-13.5 [facility] Comment on above: Performed By: #### P OCGLUC #### [facility] [address] [address] [address] Nancy Montalvo MYELOCYTE # Normal [facility] Comment on above: Performed By: #### P OCGLUC #### [facility] [address] [place] [address] Dr. Nancy Montalvo MYELOCYTE % Normal [facility] Comment on above: Performed By: #### P OCGLUC #### [facility] [address] [place] [address] Dr. Nancy Montalvo NRBC Normal [facility] Comment on above: Performed By: #### P OCGLUC #### [facility] [address] [address] [address] Nancy Montalvo PLT 145 103/ul Critically low 150-450 [facility] Comment on above: Performed By: #### P OCGLUC #### [facility] [address] [place] [address] Dr. Nancy Montalvo RBC 3.15 106/ul Critically low 4.20-5.40 [facility] Comment on above: Performed By: #### P OCGLUC #### [facility] [address] [address] [address] Nancy Montalvo RDW 13.2 % Normal 11.0-15.0 [facility] Comment on above: Performed By: #### P OCGLUC #### [facility] [address] [address] [address] Nancy Montalvo SEG # 4.70 103/ul Normal 1.40-6.50 [facility] Comment on above: Performed By: #### P OCGLUC #### [facility] [address] [address] [address] Nancy Montalvo SEG % 42.0 % Critically low 43.0-75.0 [facility] Comment on above: Performed By: #### P OCGLUC #### [facility] [address] [address] [address] Nancy Montalvo WBC 11.2 103/ul Critically high 4.0-11.0 [facility] Comment on above: Performed By: #### P OCGLUC #### [facility] [address] [address] [address] Nancy Montalvo POINT OF CARE GLUCOSEon 08-18 Glucose [Mass/Vol] 101 mg/dL Normal 74-[address] [facility] Comment on above: Performed By: #### P OCGLUC #### [facility] [address] [address] [address] Nancy Montalvo Glucose [Mass/Vol] 145 mg/dL Critically high 74-106 [facility] Comment on above: Performed By: #### C MP #### [facility] [address] [address] [address] Nancy Montalvo Glucose [Mass/Vol] 87 mg/dL Normal 74-[address] [facility] Comment on above: Performed By: #### U AMIC #### [facility] [address] [address] [address] Nancy Montalvo PROF 14(COMP METB)on 022 Albumin [Mass/Vol] 2.8 g/dL Critically low 3.4-5.0 [facility] Comment on above: Performed By: #### P OCGLUC #### [facility] [address] [address] [address] Nancy Montalvo Albumin/Globulin [Mass ratio] 0.8 {ratio} Normal [facility] Comment on above: Performed By: #### P OCGLUC #### [facility] [address] [address] [address] Nancy Montalvo ALP [Catalytic activity/Vol] 59 U/L Normal 46-116 [facility] Comment on above: Performed By: #### P OCGLUC #### [facility] [address] [address] [address] Nancy Montalvo ALT [Catalytic activity/Vol] 43 U/L Normal 14-59 [facility] Comment on above: Performed By: #### P OCGLUC #### [facility] [address] [address] [address] Nancy Montalvo Anion gap [Moles/Vol] 12.9 mmol/L Normal [facility] Comment on above: Performed By: #### P OCGLUC #### [facility] [address] [address] [address] Nancy Montalvo AST [Catalytic activity/Vol] 31 U/L Normal 15-37 [facility] Comment on above: Performed By: #### P OCGLUC #### [facility] [address] [address] [address] Nancy Montalvo Bilirubin [Mass/Vol] 0.3 mg/dL Normal 0.2-1.0 [facility] Comment on above: Performed By: #### P OCGLUC #### [facility] [address] [address] [address] Nancy Montalvo Calcium [Mass/Vol] 8.8 mg/dL Normal 8.5-10.[address] [facility] Comment on above: Performed By: #### P OCGLUC #### [facility] [address] [address] [address] Nancy Montalvo Chloride [Moles/Vol] 104 mmol/L Normal 98-107 [facility] Comment on above: Performed By: #### P OCGLUC #### [facility] [address] [address] [address] Nancy Montalvo CO2 [Moles/Vol] 23.7 mmol/L Normal 21.0-32.0 [facility] Comment on above: Performed By: #### P OCGLUC #### [facility] [address] [address] [address] Nancy Montalvo Creatinine [Mass/Vol] 2.43 mg/dL Critically high 0.55-1.02 [facility] Comment on above: Performed By: #### P OCGLUC #### [facility] [address] [address] [address] Nancy Montalvo EGFR-AF CUBAN 23 mL/min/1.73m2 Critically low >=60 [facility] Comment on above: Performed By: #### P OCGLUC #### [facility] [address] [address] [address] Nancy Montalvo EGFR-NON AF CUBAN 19 mL/min/1.73m2 Critically low >=60 [facility] Comment on above: Performed By: #### P OCGLUC #### [facility] [address] [address] [address] Nancy Montalvo Globulin (S) [Mass/Vol] 3.3 g/dL Normal [facility] Comment on above: Performed By: #### P OCGLUC #### [facility] [address] [address] [address] Nancy Montalvo Glucose [Mass/Vol] 80 mg/dL Normal 74-[address] [facility] Comment on above: Performed By: #### P OCGLUC #### [facility] [address] [address] [address] Nancy Montalvo Potassium [Moles/Vol] 4.6 mmol/L Normal 3.5-5.1 [facility] Comment on above: Performed By: #### P OCGLUC #### [facility] [address] [address] [address] Nancy Montalvo Protein [Mass/Vol] 6.1 g/dL Critically low 6.4-8.2 [facility] Comment on above: Performed By: #### P OCGLUC #### [facility] [address] [address] [address] Nancy Montalvo Sodium [Moles/Vol] 136 mmol/L Normal 136-[address] [facility] Comment on above: Performed By: #### P OCGLUC #### [facility] [address] [address] [address] Nancy Montalvo Urea nitrogen [Mass/Vol] 59.0 mg/dL Critically high 7.0-18.0 [facility] Comment on above: Performed By: #### P OCGLUC #### [facility] [address] [place] [address] Dr. Nancy Montalvo Urea nitrogen/Creatinine [Mass ratio] 24.3 mg/mg Normal [facility] Comment on above: Performed By: #### P OCGLUC #### [facility] [address] [place] [address] Dr. Nancy Montalvo PROTIMEon 09-14-2021 INR Coag (PPP) [Relative time] 1.79 {INR} Normal [facility] Comment on above: Performed By: #### C MP #### [facility] [address] [place] [address] Dr. Nancy Montalvo INR GUIDELINES SEE BELOW Normal [facility] Comment on above: Result Comment: ADITYA RED INR: 2.0 - 3.0 CONDITIONS NOT LISTED BELOW 2.5 - 3.5 FOR PROSTHETIC HEART VALVE REPLACEMENT 2.5 - 3.5 RECURRENT THROMBOSIS Performed By: #### C MP #### [facility] [address] [place] [address] Dr. Nancy Montalvo PT Coag (PPP) [Time] 18.6 s Critically high 9.0-11.6 [facility] Comment on above: Performed By: #### C MP #### [facility] [address] [place] [address] Dr. Nancy Montalvo UA RANDOM W/MICROSCOPICon BACTERIA TRACE Abnormal NONE SEEN [facility] Comment on above: Performed By: #### A 1C #### [facility] [address] [place] [address] Dr. Nancy Montalvo Bilirubin Ql (U) Negative Normal NEGATIVE [facility] Comment on above: Performed By: #### A 1C #### [facility] [address] [place] [address] Dr. Nancy Montalvo CAST NONE SEEN Normal NONE SEEN [facility] Comment on above: Performed By: #### A 1C #### [facility] [address] [place] [address] Dr. Nancy Montalvo Clarity (U) CLEAR Normal CLEAR [facility] Comment on above: Performed By: #### A 1C #### [facility] [address] [place] [address] Dr. Nancy Montalvo Color (U) LT. YELLOW Normal YELLOW [facility] Comment on above: Performed By: #### A 1C #### [facility] [address] [place] [address] Dr. Nancy Montalvo Crystals LM Nom (Urine sed) NONE SEEN Normal NONE SEEN [facility] Comment on above: Performed By: #### A 1C #### [facility] [address] [place] [address] Dr. Nancy Montalvo Epithelial cells LM Ql (Urine sed) FEW Abnormal NONE SEEN /RARE [facility] Comment on above: Performed By: #### A 1C #### [facility] [address] [place] [address] Dr. Nancy Montalvo Glucose Ql (U) Negative Normal NEGATIVE [facility] Comment on above: Performed By: #### A 1C #### [facility] [address] [place] [address] Dr. Nancy Montalvo Hemoglobin Ql (U) Negative Normal NEGATIVE [facility] Comment on above: Performed By: #### A 1C #### [facility] [address] [place] [address] Dr. Nancy Montalvo Ketones Ql (U) Negative Normal NEGATIVE [facility] Comment on above: Performed By: #### A 1C #### [facility] [address] [place] [address] Dr. Nancy Montalvo LEUKOCYTES MODERATE Abnormal NEGATIVE [facility] Comment on above: Performed By: #### A 1C #### [facility] [address] [place] [address] Dr. Nancy Montalvo MUCOUS SMALL Abnormal NONE SEEN [facility] Comment on above: Performed By: #### A 1C #### [facility] [address] [place] [address] Dr. Nancy Montalvo Nitrite Ql (U) Negative Normal NEGATIVE [facility] Comment on above: Performed By: #### A 1C #### [facility] [address] [place] [address] Dr. Nancy Montalvo pH (U) 5.0 [pH] Normal 5-9 [facility] Comment on above: Performed By: #### A 1C #### [facility] [address] [place] [address] Dr. Nancy Montalvo RBC NONE SEEN Abnormal 0-2 [facility] Comment on above: Performed By: #### A 1C #### [facility] [address] [place] [address] Dr. Nancy Montalvo SPEC GRAVITY 1.025 Normal 1.005-<=1.0 25 [facility] Comment on above: Performed By: #### A 1C #### [facility] [address] [place] [address] Dr. Nancy Montalvo UA PROTEIN Negative Normal NEGATIVE/ TRACE [facility] Comment on above: Performed By: #### A 1C #### [facility] [address] [place] [address] Dr. Nancy Montalvo Urobilinogen Qn (U) 0.2 {Grant'U}/dL Normal 0.2 - 1. 0 [facility] Comment on above: Performed By: #### A 1C #### [facility] [address] [place] [address] Dr. Nancy Montalvo WBC 5-10 Abnormal NONE SEEN [facility] Comment on above: Performed By: #### A 1C #### [facility] [address] [place] [address] Dr. Nancy Montalvo CBC AUTO DIFFon 09-13-2021 BASO # 0.1 103/ul Normal 0.0-0.1 [facility] Comment on above: Performed By: #### C VDTB #### [facility] [address] [place] [address] Dr. Nancy Montalvo Basophils/100 WBC (Bld) 0.5 % Normal 0.2-2.0 [facility] Comment on above: Performed By: #### C VDTBH #### [facility] [address] [place] [address] Dr. Nancy Montalvo EO # 0.1 103/ul Normal 0.0-0.7 [facility] Comment on above: Performed By: #### C VDTBH #### [facility] [address] [place] [address] Dr. Nancy Montalvo Eosinophils/100 WBC (Bld) 0.6 % Critically low 0.9-7.0 [facility] Comment on above: Performed By: #### C VDTBH #### [facility] [address] [place] [address] Dr. Nancy Montalvo Erythrocyte distribution width (RBC) [Ratio] 12.9 % Normal 11.0-15.0 [facility] Comment on above: Performed By: #### C VDTBH #### [facility] [address] [place] [address] Dr. Nancy Montalvo Hematocrit (Bld) [Volume fraction] 33.3 % Critically low 36.0-48.0 [facility] Comment on above: Performed By: #### C VDTBH #### [facility] [address] [place] [address] Dr. Nancy Montalvo Hemoglobin (Bld) [Mass/Vol] 10.4 g/dL Critically low 12.0-16.0 [facility] Comment on above: Performed By: #### C VDTBH #### [facility] [address] [place] [address] Dr. Nancy Montalvo IG # 0.03 10e3/ul Normal 0.00-0.03 [facility] Comment on above: Performed By: #### C VDTBH #### [facility] [address] [place] [address] Dr. Nancy Montalvo IG % 0.3 % Normal 0.0-0.5 [facility] Comment on above: Performed By: #### C VDTBH #### [facility] [address] [address] [address] Nancy Montalvo LYMPH # 1.9 103/ul Normal 1.2-3.8 [facility] Comment on above: Performed By: #### C VDTBH #### [facility] [address] [address] [address] Nancy Montalvo Lymphocytes/100 WBC (Bld) 19.9 % Critically low 20.5-60.0 [facility] Comment on above: Performed By: #### C VDTBH #### [facility] [address] [address] [address] Nancy Montalvo MANUAL DIFF REQ NO Normal [facility] Comment on above: Performed By: #### C VDTBH #### [facility] [address] [place] [address] Dr. Nancy Montalvo MCH (RBC) [Entitic mass] 31.9 pg Normal 26.7-34.0 [facility] Comment on above: Performed By: #### C VDTBH #### [facility] [address] [place] [address] Dr. Nancy Montalvo MCHC (RBC) [Mass/Vol] 31.2 g/dL Normal 29.9-35.2 [facility] Comment on above: Performed By: #### C VDTBH #### [facility] [address] [place] [address] Dr. Nancy Montalvo MCV (RBC) [Entitic vol] 102.1 fL Critically high 81.0-99.0 [facility] Comment on above: Performed By: #### C VDTBH #### [facility] [address] [place] [address] Dr. Nancy Montalvo MONO # 0.8 103/ul Normal 0.3-0.8 [facility] Comment on above: Performed By: #### C VDTBH #### [facility] [address] [place] [address] Dr. Nancy Montalvo Monocytes/100 WBC (Bld) 8.1 % Normal 1.7-12.0 [facility] Comment on above: Performed By: #### C VDTBH #### [facility] [address] [address] [address] Nancy Montalvo NEUT # 6.6 103/ul Critically high 1.4-6.5 [facility] Comment on above: Performed By: #### C VDTBH #### [facility] [address] [address] [address] Nancy Montalvo Neutrophils/100 WBC (Bld) 70.6 % Normal 43.0-75.0 [facility] Comment on above: Performed By: #### C VDTBH #### [facility] [address] [place] [address] Dr. Nancy Montalvo Platelet mean volume (Bld) [Entitic vol] 12.3 fL Normal 9.5-13.5 [facility] Comment on above: Performed By: #### C VDTBH #### [facility] [address] [place] [address] Dr. Nancy Montalvo PLT 160 103/ul Normal 150-450 [facility] Comment on above: Performed By: #### C VDTBH #### [facility] [address] [place] [address] Dr. Nancy Montalvo RBC 3.26 106/ul Critically low 4.20-5.40 [facility] Comment on above: Performed By: #### C VDTBH #### [facility] [address] [place] [address] Dr. Nancy Montalvo WBC 9.4 103/ul Normal 4.0-11.0 [facility] Comment on above: Performed By: #### C VDTBH #### [facility] [address] [place] [address] PELVIS WO CONon [...] JOSÉ CHENG Date: 2021-09-13 10:47 Normal [facility] Covid-19 PCR (CVDTBH)on 08-18 SARS-CoV-2 (COVID-19) RNA MARLENE+probe Ql (Unsp spec) Not detected Normal NOT DETECTED [facility] Comment on above: Result Comment: When diagnostic [...] for this test is supported by the [place] of Health and Human Service's declaration that [...] used). Performed By: #### P OCGLUC #### [facility] [address] [place] [address] Dr. Nancy Montalvo POINT OF CARE GLUCOSEon 08-18 Glucose [Mass/Vol] 75 mg/dL Normal 74-106 [facility] Comment on above: Performed By: #### P OCGLUC #### [facility] [address] [place] [address] Dr. Nancy Montalvo Glucose [Mass/Vol] 82 mg/dL Normal 74-106 [facility] Comment on above: Performed By: #### P OCGLUC #### [facility] [address] [place] [address] Dr. Nancy Montalvo PROF CHEM 8 (BAS METB)on Anion gap [Moles/Vol] 16.7 mmol/L Normal [facility] Comment on above: Performed By: #### B LDCX1 #### [facility] [address] [place] [address] Dr. Nancy Montalvo Calcium [Mass/Vol] 8.8 mg/dL Normal 8.5-10.[address] [facility] Comment on above: Performed By: #### B LDCX1 #### [facility] [address] [place] [address] Dr. Nancy Montalvo Chloride [Moles/Vol] 107 mmol/L Normal 98-107 [facility] Comment on above: Performed By: #### B LDCX1 #### [facility] [address] [place] [address] Dr. Nancy Montalvo CO2 [Moles/Vol] 23.0 mmol/L Normal 21.0-32.0 [facility] Comment on above: Performed By: #### B LDCX1 #### [facility] [address] [place] [address] Dr. Nancy Montalvo Creatinine [Mass/Vol] 2.51 mg/dL Critically high 0.55-1.02 [facility] Comment on above: Performed By: #### B LDCX1 #### [facility] [address] [place] [address] Dr. Nancy Montalvo EGFR-AF CUBAN 22 mL/min/1.73m2 Critically low >=60 [facility] Comment on above: Performed By: #### B LDCX1 #### [facility] [address] [address] [address] Nancy Montalvo EGFR-NON AF CUBAN 18 mL/min/1.73m2 Critically low >=60 [facility] Comment on above: Performed By: #### B LDCX1 #### [facility] [address] [address] [address] Nancy Montalvo Glucose [Mass/Vol] 91 mg/dL Normal 74-106 [facility] Comment on above: Performed By: #### B LDCX1 #### [facility] [address] [address] [address] Nancy Montalvo Potassium [Moles/Vol] 4.7 mmol/L Normal 3.5-5.1 [facility] Comment on above: Performed By: #### B LDCX1 #### [facility] [address] [address] [address] Nancy Montalvo Sodium [Moles/Vol] 142 mmol/L Normal 136-145 [facility] Comment on above: Performed By: #### B LDCX1 #### [facility] [address] [address] [address] Nancy Montalvo Urea nitrogen [Mass/Vol] 60.0 mg/dL Critically high 7.0-18.0 [facility] Comment on above: Performed By: #### B LDCX1 #### [facility] [address] [address] [address] Nancy Montalvo Urea nitrogen/Creatinine [Mass ratio] 23.9 mg/mg Normal [facility] Comment on above: Performed By: #### B LDCX1 #### [facility] [address] [address] [address] Nancy Montalvo PROTIMEon 09-13-2021 INR Coag (PPP) [Relative time] 1.53 {INR} Normal [facility] Comment on above: Performed By: #### P OCGLUC #### [facility] [address] [place] [address] Dr. Nancy Montalvo INR GUIDELINES SEE BELOW Normal [facility] Comment on above: Result Comment: ADITYA RED INR: 2.0 - 3.0 CONDITIONS NOT LISTED BELOW 2.5 - 3.5 FOR PROSTHETIC HEART VALVE REPLACEMENT 2.5 - 3.5 RECURRENT THROMBOSIS Performed By: #### P OCGLUC #### [facility] [address] [place] [address] Dr. Nancy Montalvo PT Coag (PPP) [Time] 16.1 s Critically high 9.0-11.6 [facility] Comment on above: Performed By: #### P OCGLUC #### [facility] [address] [place] [address] Dr. Nancy Montalvo T4on 09-13-2021 T4 [Mass/Vol] 7.30 ug/dL Normal 4.80-13.90 [facility] Comment on above: Performed By: #### U AMIC #### [facility] [address] [place] [address] Dr. Nancy Montalvo TSHon 09-13-2021 TSH 1.045 uIU/mL Normal 0.358-3.740 [facility] Comment on above: Performed By: #### U AMIC #### [facility] [address] [place], [place] [id number] Dr. Nancy Montalvo Cardiovascular Lab Reporton 08-30-2021 Cardiovascular Lab Report [facility] Patient Name: [facility] Gemma Blackmon MR #: [id number] Department of Physician: Rob Morales MD Medicine Service Date: 08/30/2021 Division of Birthdate: 1935 Cardiology Room #: Adult Cardiovascular Services [place] [address] Cardiovascular Laboratory Report PACEMAKER GENERATOR CHANGE POCKET REVISION PROCEDURE NOTE DATE OF PROCEDURE: 08/30/2021 PERFORMING PHYSICIAN: Dr. Rob Morales CONSENT: Patient LOCATION: EP Lab PROCEDURE PERFORMED: 1. Implant of new pacemaker generator ([employer]). 2. Explant of pacemaker generator ([employer]). 3. Pocket Revision. INDICATIONS: 1. S/p [...] leads were then attached to a new [employer] generator and the leads tug tested. Pocket [...] the device as noted below. Device info: [employer] Accolade MRI DR IS-1 Model# L311 Serial# [id number] RA lead: Implanted on 08/19/2012 Guidant Dextrus IS-1 4136-53 cm, Serial #[id number] Sensin.3mV Threshold: 0.7V@0.4ms Impedance: 564 Ohms RV lead: Implanted on 08/19/2012 Guidant Dextrus IS-1 4137-60cm Serial #[id number] Sensin.8mV Threshold: 1.8V@0.4ms Impedance: 468 Ohms POST [...] P/Rob Morales MD Date Trans: 08/30/2021 01:25 P/mmo [id number] cc: Chase Méndez M.D. [address] [place] [facility] [id number] Normal [facility]on 08-17 SARS-CoV-2 (COVID-19) RNA MARLENE+probe Ql (Unsp spec) Not detected Normal NOT DETECTED [facility] Comment on above: Result Comment: This test is not yet approved or cleared by the [place] FDA. When there are no FDA-approved or cleared tests available, and other criteria are met, FDA can make tests available under an emergency access mechanism called an Emergency Use Authorization (EUA). The EUA for this test is supported by the Supervisor [place] of Health and Human Service's (HHS's) declaration [...] SARS-CoV-2. Performed By: #### C MP #### [facility] [address] [place] [address] Dr. Nancy Montalvo Vital Signs Date Time Vital Sign Value Performing Clinician Faci lity 11-14-2022 13:26-0400 Blood Pressure Location Tom HAYNESL [facility] [place] 11-14-2022 13:26-0400 Diastolic blood pressure 60 mm[Hg] Tom HAYNESL [facility] [place] 11-14-2022 13:26-0400 Heart rate 70 /min Tom NILL [facility] [place] 11-14-2022 13:26-0400 Respiratory rate 16 /min Tom NILL [facility] [place] 11-14-2022 13:26-0400 Systolic blood pressure 116 mm[Hg] Tom NILL [facility] [place] Encounters Encounter Date Encounter Type Care Provider Facility Start: 11-02-2023 End: 11-02-2023 ambulatory [facility] [facility] Start: 10-17-2023 End: 10-17-2023 ambulatory [facility] Start: 10-10-2023 End: 10-10-2023 [facility] Start: 09-20-2023 End: 09-20-2023 [facility] Start: 09-19-2023 End: 09-20-2023 Evaluation and management of inpatient [facility] Start: 09-19-2023 End: 09-19-2023 Evaluation and management of inpatient [facility] Start: 09-11-2023 End: 09-15-2023 Evaluation and management of inpatient [facility] Start: 09-08-2023 ambulatory [facility] Start: 09-06-2023 End: 09-06-2023 ambulatory [facility] Start: 09-05-2023 End: 09-05-2023 ambulatory JOHN [facility] Start: 08-15-2023 End: 08-15-2023 ambulatory GERARDO ZAMORA [facility] Start: 07-23-2023 End: 07-30-2023 Evaluation and management of inpatient SANJAY BERNARD [facility] Start: 07-23-2023 End: 07-30-2023 Evaluation and management of inpatient SANJAY BERNARD [facility] Start: 07-23-2023 [facility] Start: 07-18-2023 End: 07-21-2023 ambulatory [facility] Start: 07-03-2023 End: 07-03-2023 ambulatory [facility] Start: 06-27-2023 End: 06-28-2023 [facility] Start: 06-20-2023 End: 06-21-2023 [facility] Start: 06-13-2023 End: 06-14-2023 [facility] Start: 05-29-2023 End: 05-30-2023 [facility] Start: 05-29-2023 End: 05-29-2023 Subsequent hospital visit by physician Ayaka Downing [facility] Comment on above: Atrial fibrillation, unspecified type (HCC) (Primary Dx) Start: 05-17-2023 End: 05-18-2023 [facility] Start: 04-25-2023 End: 04-26-2023 [facility] Start: 04-25-2023 End: 04-25-2023 Subsequent hospital visit by physician Nallely Degroot [facility] Comment on above: Atrial fibrillation, unspecified type (HCC) (Primary Dx) Start: 04-13-2023 End: 04-14-2023 [facility] Start: 04-13-2023 End: 04-13-2023 Subsequent hospital visit by physician Juan José Velazquez [facility] Work Phone: [facility] Comment on above: Atrial fibrillation, unspecified type (HCC) (Primary Dx) Start: 04-05-2023 End: 04-06-2023 ambulatory CHASE MÉNDEZ [facility] Start: 03-08-2023 End: 03-08-2023 ambulatory ABDI ROYAL Not Available Start: 02-26-2023 End: 02-26-2023 ambulatory Chase Méndez Facility:[facility] Start: 02-26-2023 End: 02-26-2023 ambulatory MD Chase Méndez Work Phone: [facility] Work Phone: Start: 02-26-2023 End: 02-26-2023 Patient encounter procedure MD Chase Méndez Work Phone: [facility] Work Phone: Start: 02-15-2023 End: 02-15-2023 ambulatory Chase Méndez Facility:[facility] Start: 02-15-2023 End: 02-15-2023 ambulatory MD Chase Méndez Work Phone: [facility] Work Phone: Start: 02-15-2023 End: 02-15-2023 Patient encounter procedure MD Chase Méndez Work Phone: [facility] Work Phone: Start: 12-05-2022 End: 12-06-2022 ambulatory Tom R NILL Facility: [place] Start: 11-22-2022 End: 11-23-2022 ambulatory Tom R NILL Facility:[facility] Start: 11-22-2022 End: 11-22-2022 Patient encounter procedure Tom HAYNESL [facility] [place] Start: 11-14-2022 End: 11-15-2022 ambulatory Tom R NILL Facility:[facility] Start: 11-14-2022 End: 11-14-2022 Patient encounter procedure Tom Jimenez NILL [facility] [place] Start: 10-31-2022 End: 10-31-2022 ambulatory ROB ANDREW [facility] Start: 10-17-2022 ambulatory Tom JAY [...] 06-16-2022 ambulatory SHAIKH Carly TINSLEY Facility:[facility] Start: 04-25-2022 End: 04-26-[address] CHASE MÉNDEZ . Facility:[facility] Start: 04-19-2022 End: 05-17-2022 ambulatory SHAIKH Carly TINSLEY Facility:[facility] Start: 03-29-2022 End: 03-30-2022 ambulatory BERNICE DELEON Facility:[facility] Start: 03-20-2022 End: 04-19-2022 ambulatory SHAIKH Carly TINSLEY Facility:[facility] Start: 02-16-2022 End: 03-19-2022 ambulatory SHAIKH Carly TINSLEY Facility:[facility] Start: 01-17-2022 End: 02-15-2022 ambulatory SHAIKH Carly TINSLEY Facility:[facility] Start: 12-18-2021 End: 01-16-2022 ambulatory SHAIKH Carly TINSLEY Facility:[facility] Start: 12-02-2021 End: 12-17-2021 ambulatory AYOUBDIXON TINSLEY Facility:[facility] Start: 10-24-2021 End: 10-25-[address] CHASE MÉNDEZ . Facility:[facility] Start: 09-30-2021 ambulatory RAMIRO LACKER Facility :[facility] Start: 09-13-2021 End: 09-16-[address] CHASE MÉNDEZ . Facility:[facility] Start: 08-30-2021 End: 08-31-2021 ambulatory ROB MORALES Facility:[facility] Start: 08-29-2021 Encounter for preprocedural laboratory examination ROB MORALES [facility] Start: 08-26-2021 End: 08-27-2021 ambulatory ROB ANDREW Facility:[facility] Start: 08-26-2021 End: 08-27-2021 Encounter for preprocedural laboratory examination ROB ANDREW Facility: Start: 11-28-2018 End: 11-28-2018 Patient encounter procedure UNKNOWN PROVIDER Facility:[facility] Start: 08-01-2018 End: 08-01-2018 Patient encounter procedure UNKNOWN PROVIDER Facility:[facility] Start: 02-21-2018 End: 02-21-2018 Patient encounter procedure UNKNOWN PROVIDER Facility:[facility] Procedures Date Procedure Procedure Detail Performing Clinician Start: 05-29-2023 Prothrombin time Histor ical Provider Start: 04-25-2023 Prothrombin time Histor ical Provider Start: 04-13-2023 End: 04-13-2023 Prothrombin time Historical Provider Start: 10-31-2022 Follow-up visit Follow-up ROB MASON Abdominal hysterectomy Joe nargis HAYNESL Appendectomy Tom THOMPSON Cardioversion Tom THOMPSON Excision of melanoma Tom THOMPSON Implantable cardiac pacemaker (physical object) Tom THOMPSON 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 using fluoroscopic guidance Tom THOMPSON Stapling of stomach Tom THOMPSON Plan of Treatment Date Care Activity Detail Author Start: 06-13-2023 End: 06-13-2023 Patient encounter procedure 06/13/2023 3:30 PM EDT Appointment [facility] [address] [place] [id number] ([facility] 03/22/2024) [facility] Comment on above: ([facility] 03/22/2024) Start: 05-09-2023 End: 05-09-2023 Patient encounter procedure 05/09/2023 3:30 PM EST Appointment [facility] [place] [id number] [facility] Comment on above: ([facility] [place] 03/22/2024) Start: 04-25-2023 End: 04-25-2023 Patient encounter procedure 04/25/2023 3:30 PM EST Appointment [facility] [address] [place] [phone] new ([facility] 03/22/2024) [facility] Comment on above: new ([facility] ) Start: 03-19-2023 Annual Wellness Visi t (Medicare Advantage) Annual Wellness Visit (Medicare Advantage) [facility] [employer] [facility] Start: 10-17-2022 Influenza vaccination Flu vaccine (# 1) [facility] [employer] Start: 1984 Shingles vaccine (1 of 2) Shingles vaccine (1 of 2) [facility] [employer] Start: 1953 DTaP/Tdap/Td vaccine (1 - Tdap) DTaP/Tdap/Td vaccine (1 - Tdap) [facility] [employer] Start: 1946 Depression Screen Depression Screen [facility] Start: 1944 Lipid panel Lipids [facility] Immunizations Immunization Date Immunization Notes Care Provider Fa cility 07-25-2022 SARS-CoV-2 (COVID-19 ) mRNAMUL.ORD![id number] Tom NILL [facility] [place] 07-10-2022 SARS-CoV-2 (COVID-19 ) mRNA-1273 vaccine Tom NILL [facility] [place] 02-27-2022 SARS-CoV-2 (COVID-19 ) mRNAMUL.ORD![id number] Tom NILL [facility] [place] 09-29-2021 SARS-CoV-2 mRNA (xqxnpbnujde-tlcy-sbuib se) vaccine Tom NILL [facility] [place] 05-07-2020 SARS-CoV-2 (COVID-19 ) mRNA BNT-162b2 vax Tom NILL [facility] Comment on above: Result Comment: 2022: [id number] 04-16-2020 SARS-CoV-2 (COVID-19 ) mRNA BNT-162b2 vax Tom NILL [facility] Comment on above: Result Comment: 2022: [id number] Payers Date Payer Category Payer Medicare [id number] 2023 Self-pay 1960 Medicare [id number] 1960 Self-pay [id number] 1934 Unknown [id number] 2.16. 840.1.826739.3.579.2.732 1934 Unknown [id number] 2.. 840.1.429009.3.579.2.732 1934 Unknown [id number] 2.16. 840.1.780569.3.579.2.732 1934 Unknown [id number] 2.16.8 40.1.283974.3.579.2.647 1934 Unknown [id number] 2.16.84 0.1.407454.3.579.2.593 1934 Unknown [id number] 2.16.84 0.1.729812.3.579.2.593 1934 Unknown [id number] 2.16.84 0.1.742678.3.579.2.593 1934 Unknown [id number] 2.16.84 0.1.505647.3.579.2.593 1934 Unknown [id number] 2.16.84 0.1.635480.3.579.2.593 1934 Unknown [id number] 2.16.84 0.1.043723.3.579.2.593 1934 Unknown [id number] 2.16.84 0.1.557842.3.579.2.593 1934 Unknown [id number] 2.16.84 0.1.944853.3.579.2.593 1934 Unknown [id number] 2.16.84 0.1.632520.3.579.2.593 1934 Unknown [id number] 2.16.84 0.1.998019.3.579.2.593 1934 Unknown [id number] 2.16.84 0.1.444699.3.579.2.593 1934 Unknown [id number] 2.16.84 0.1.334008.3.579.2.593 1934 Unknown [id number] 2.16.84 0.1.051329.3.579.2.593 1934 Unknown [id number] 2.16.84 0.1.080201.3.579.2.593 1934 Unknown [id number] 2.16.84 0.1.945395.3.579.2.593 1934 Unknown [id number] 2.16.84 0.1.800242.3.579.2.593 1934 Unknown [id number] 2.16.84 0.1.199032.3.579.2.593 1934 Unknown [id number] 2.16.84 0.1.295798.3.579.2.593 1934 Unknown [id number] 2.16.84 0.1.572237.3.579.2.593 1934 Unknown [id number] 2.16.84 0.1.779306.3.579.2.593 1934 Unknown [id number] 2.16.84 0.1.761916.3.579.2.593 1934 Unknown [id number] 2.16.84 0.1.981922.3.579.2.593 1934 Unknown [id number] 2.16.84 0.1.790866.3.579.2.593 1934 Unknown [id number] 2.16.84 0.1.518783.3.579.2.593 1934 Unknown [id number] 2.16.8 40.1.410089.3.579.2.727 1934 Unknown [id number] 2.16.8 40.1.434245.3.579.2.727 1934 Unknown [id number] 2.16.8 40.1.602525.3.579.2.727 1934 Unknown [id number] 2.16.840 .1.062180.3.579.2.1259 1934 Unknown [id number] 2.16.8 40.1.210206.3.579.2.176 1934 Unknown [id number] 2.16.8 40.1.380182.3.579.2.176 1934 Unknown [id number] 2.16.8 40.1.520091.3.579.2.176 1934 Unknown [id number] 2.16.8 40.1.604519.3.579.2.176 1934 Unknown [id number] 2.16.8 40.1.698165.3.579.2.176 1934 Unknown [id number] 2.16.8 40.1.064384.3.579.2.176 1934 Unknown [id number] 2.16.8 40.1.719199.3.579.2.176 1934 Unknown [id number] 2.16. 840.1.221587.3.579.2.175 1934 Unknown [id number] 2.16.8 40.1.853356.3.579.2.1286 1934 Unknown [id number] 2.16.8 40.1.482655.3.579.2.1286 1934 Unknown [id number] 2.16. 840.1.771139.3.579.2.175 1934 Unknown [id number] 2.16. 840.1.077386.3.579.2.175 1934 Unknown [id number] 2.16. 840.1.216158.3.579.2.175 1934 Unknown [id number] 2.16. 840.1.133120.3.579.2.175 1934 Unknown [id number] 2.16. 840.1.692614.3.579.2.175 1934 Unknown [id number] 2.16.8 40.1.620215.3.579.2.1286 1934 Unknown [id number] 2.16.8 40.1.015880.3.579.2.1286 1934 Unknown [id number] 2.16.8 40.1.015328.3.579.2.1286 1934 Unknown [id number] 2.16.8 40.1.755966.3.579.2.1286 1934 Unknown [id number] 2.16.8 40.1.360508.3.579.2.1286 1934 Unknown [id number] 2.16.8 40.1.166312.3.579.2.1286 Medicare [id number] Unknown [employer] [id number] Unknown [id number] 2.16.8 40.1.453980.3.579.2.531 Unknown [id number] 2.16.8 40.1.668406.3.579.2.531 Social History Date Type Detail Facility Start: 11-14-2022 Tobacco smoking status Ex-smoker (finding) [facility] [place] Tobacco smoking status Never [facility] [place] Start: 08-02-2012 Sex Assigned At Female F [facility] Start: 1934 Sex Assigned At Female F [facility] Tobacco smoking status NHIS Tobacco smoking consumption [facility] Start: 08-02-2012 History of Social function [facility] Start: 1934 Sex Assigned At Not on file B [employer] [facility] Functional Status Date Assessment Result Facility 11-14-2022 Functional Status N/A [facility] [place] Clinical Notes 09-13-2021 to 10-13-2023 Ayaka Downing, [facility] - 05/29/2023 3:10 PM Nallely Faulkner, [facility] - 04/25/2023 3:30 PM ESTJuan José Velazquez, [facility] - 04/13/2023 3:30 PM EST Note Date & Type Note Facility 10-13-2023 Note [id number]= 6 age, female, CHF, HTN, DM Remains on warfarin anticoagulation and metoprolol for rate control. [facility] 10-13-2023 Note Continue to monitor [facility] 10-13-2023 Note Moderate AO stenosis , extended [...] or not- possibly as a second opinion. [facility] 10-13-2023 Note [facility] 2-3 currently e uvolemic, without exacerbation Continue GDMT- ASA, metoprolol Diuretic therapy lasix 20 mg daily Currently with CKD and CR 2.2 and hypotension- GDMT is limited- currently unable to escalate with ACEi, ARB, ARNI Monitor daily weights, I&O, fluid restriction 1.5-2L/day, renal function and electrolytes- [facility] 10-13-2023 Note HTN stable and contr olled Continue all medications- metoprolol, aldactone [facility] 10-13-2023 Note Device check q 6 mon ths Staff to check device today and Device rep to review and will be evaluated by Dr Morales- EP [facility] 10-13-2023 Note Currently stable, no concerning symptoms [facility] 10-10-2023 Note Currently stable- 1 episode since last visit r/t hypoglycemia [facility] 10-10-2023 Note Patient here for 1 y ear follow up PAF, sinus node dysfunction s/p PPM, hypertension, and valve disorder. Review of Systems Cardiovascular: Positive for dyspnea on exertion, leg swelling (LLE), palpitations ( racing ) and syncope (one episode related to hypoglycemia). Musculoskeletal: Positive for muscle weakness. Neurological: Positive for focal weakness, light-headedness and weakness. All other systems reviewed and are negative. [facility] 10-10-2023 Note [facility]TP CARDIOLOGY PROGR ESS NOTE [...] Lt foot. She was then admitted to [facility] in September for acute Lt leg ischemia [...] DIAGNOSIS: Patient Active Problem List Diagnosis A-fib ([facility]) Closed left hip fracture, initial encounter ([facility]) Fall from standing BERTHA (acute kidney injury) ([facility]) Urinary retention CKD (chronic kidney disease) stage 4, GFR 15-29 ml/min ([facility]) Hx of cardiac pacemaker CONSULTANTS: nephrology, urology,cardiology, orthopedics PROCEDURES: Date: 07/24/23 Room / Location: [place] [address] / [facility] Anesthesia Start: 1238 Anesthesia Stop: 1504 Procedure: FEMUR CEPHALOMEDULLARY NAIL INSERTION (Left: Leg Upper) Diagnosis: Closed nondisplaced intertrochanteric fracture of left femur, initial encounter ([facility]) (Closed nondisplaced intertrochanteric fracture of left femur, initial encounter ([facility]) [S72.145A]) Surgeons: John Perla DO [...] is doing well. She was admitted to [facility] for weakness but has been doing well [...] consistent with a.flutter Patient has got a [employer] dual-chamber pacemaker implanted on 08/19/2012 with thresholds that are in normal range. She is noted to have atrial flutter with a cycle length of nearly 440 ms. The ventricular rate is controlled during this time. EKG 01/21/2018 shows atrial pacing and allakaket conduction 01/12/2017 shows AV seq (more content not included)... [facility] 05-29-2023 History of Present illness Narrative Patient [...] referring provider which is Dr. Méndez - Bucky PT/INR done via POC meter per protocol. [...] Spent (min): 20 Ayaka Downing, PharmD PGY1 [employer] [place] documented in this encounter [facility] 04-25-2023 History of Present illness Narrative Patient [...] regimen will be decreased to 1.5 mg Wed/Sat and 3 mg all other days. Will [...] Spent (min): 20 Nallely Degroot, Pharm D, [facility] 04/25/2023 4:10 PM documented in this encounter [facility] 04-13-2023 History of Present illness Narrative [...] Spent (min): 20 documented in this encounter [facility] 11-14-2022 Note Chief Complaint consultation for nevus [...] tab(s), Oral, Chrissy (more content not included)... [facility] Comment on above: Result Comment: Elec tronically Signed By: JAY BRYAN, Tom Deleon.meek\Date and Time Signed: 11/14/22 13:57 EDT 10-31-2022 Note [place] Electrophysiology Note [facility] Reason for visit: 6 month follow up 10/31/22 Patient is doing well. She was admitted to [facility] for weakness but has been doing well [...] consistent with a.flutter Patient has got a [employer] dual-chamber pacemaker implanted on 08/19/2012 with thresholds that are in normal range. She is noted to have atrial flutter with a cycle length of nearly 440 ms. The ventricular rate is controlled during this time. EKG 01/21/2018 shows atrial pacing and allakaket conduction 01/12/2017 shows AV sequential pacing 01/12/2016 shows again AV sequential pacing Echocardiogram from 10/21/2019 shows ejection fraction of 75% with a severely dilated left atrium and a moderately dilated right atrium with mild aortic valve regurgitation and mild aortic valve stenosis She did not get her amiodarone annual testing done but was recently seen at [facility] for a pelvic fracture, no chest xray [...] Insomnia, unspecified Hypothyroidism, unspecified Hyperlipidemia, unspecified HX: correction anticoagulant use History of malignant 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 [facility] 07-02-2022 Note PROCEDURE: US THYROI D DATE: [...] by: JUAN F ENCARNACION Date: 2022-07-02 08:56 [facility] 09-13-2021 Note PROCEDURE: XR HIP LT 2 [...] by: JUAN JOSÉ CHENG Date: 2021-09-13 09:15 [facility] Evaluation + Plan note Future Appointments Appointment Date:11/22/2022 03:20:00 PM Scheduled Provider:Tom THOMPSON MD Location:[facility] Appointment Type: Procedure 30 [facility] [place] Evaluation + Plan note Future Appointments Appointment Date:12/05/2022 02:40:00 PM Scheduled Provider:Tom THOMPSON MD Location:[facility] Appointment Type:GS Established 15 [facility] [place] Evaluation note No assessment inform ation available [facility] Work Phone: Evaluation note Diagnosis Atrial fibrillation, unspecified type (HCC)- Primary documented in this encounter [facility] note* Diagnosis Atrial fibrillation, unspecified type (HCC)- Primary documented in this encounter [facility] note* Diagnosis Atrial fibrillation, unspecified type (HCC)- Primary [facility] in [facility] Narrative No data available for this section [facility] Discharge instructions No data available for this section [facility] [place] Progress note No data available for this section [facility] [place] Summary Purpose Family History No Family History [...] and content) DATE CREATED AUTHOR 11/28/2018 [facility] DATE CREATED AUTHOR AUTHOR'S ORGANIZ ATION 09/01/[address] [facility] DATE CREATED AUTHOR AUTHOR'S ORGANIZ ATION 08/25/2022 [facility] DATE CREATED AUTHOR AUTHOR'S ORGANIZ ATION 12/06/2022 [facility] DATE CREATED AUTHOR AUTHOR'S ORGANIZ ATION 03/03/2023 [facility] DATE CREATED AUTHOR AUTHOR'S ORGANIZ ATION 03/09/2023 [facility] DATE CREATED AUTHOR AUTHOR'S ORGANIZ ATION 07/21/2023 [facility] DATE CREATED AUTHOR AUTHOR'S ORGANIZ ATION 07/30/2023 [facility] DATE CREATED AUTHOR AUTHOR'S ORGANIZ ATION 09/09/2023 [facility] DATE CREATED AUTHOR AUTHOR'S ORGANIZ ATION 10/13/2023 [facility] DATE CREATED AUTHOR AUTHOR'S ORGANIZ ATION 10/26/2023 [facility] DATE CREATED AUTHOR AUTHOR'S ORGANIZ ATION 11/04/2023 [facility] Patient Care team informatio n (unrecognized section and content) Team Status: Inactive Member Role Status Dates Chase Méndez MD Attending Provider Active Content Designer Relationship Specialty Start Date End Date Chase Méndez MD [address] [phone] PCP - General 07/22/12 Content Designer Relationship Specialty Start Date End Date Chase Méndez MD [address] [phone] PCP - General 07/22/12 Content Designer Relationship Specialty Start Date End Date Chase Méndez MD [address] [phone] PCP - General 07/22/12 Goals (unrecognized section and content) Goals may be documented in a n alternate section Reason for Visit (unrecogniz ed section and content) Specialty Diagnoses / Procedures Referred By Contstephani t Referred To Contact Pharmacy Diagnoses Atrial fibrillation (HCC) Chase Méndez MD [address] [place] [address] [facility] Medication [address] [address] Referral ID Status Reason Start Date Expiration Date V isits Requested Visits Authorized [id number] Authorized 03/22/2023 03/22/2024 99 99 Referral ID Status Reason Start Date Expiration Date V isits Requested Visits Authorized [id number] Pending Review 03/22/2023 03/22/2024 99 99 FOR [...] BE BASED ON THE PRIMARY CLINICAL RECORDS. [employer] [facility]. provides no warranty or guarantee of the accuracy or completeness of information in this document.
== END 2023-09-04 13:30 | disposition home or self-care (01) ==
LOC: WC 11-13 15:59
PROVIDERS: PCP Family Medicine; Visit Provider Podiatrist Foot & Ankle Surgery
DX: E11.621 Type 2 diabetes mellitus with foot ulcer (principal); L97.428 Non-pressure chronic ulcer of left heel and midfoot with other specified severity
CPT/HCPCS: A6213; G0463

== ENCOUNTER 2023-09-17 00:49 | Outpatient (RCR) | payer MEDICARE, SELFPAY | END 2023-10-17 09:42 | disposition home or self-care (01) | LOC: MM 00:49 | PROVIDERS: PCP Family Medicine; Visit Provider Internal Medicine | DX: Z51.81 Encounter for therapeutic drug level monitoring (principal); Z79.01 Long term (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; I48.91 Unspecified atrial fibrillation ==

== ENCOUNTER 2023-09-18 12:11 | Outpatient (OUT) | payer MEDICARE, SELFPAY | END 2023-09-18 12:12 | disposition home or self-care (01) | LOC: WC 12:11 | PROVIDERS: PCP Family Medicine; Visit Provider Podiatrist Foot & Ankle Surgery | DX: E11.621 Type 2 diabetes mellitus with foot ulcer (principal); L97.428 Non-pressure chronic ulcer of left heel and midfoot with other specified severity | CPT/HCPCS: A6213; G0463 ==

== ENCOUNTER 2023-10-02 14:49 | Emergency (ER) | payer MEDICARE, SELFPAY ==
--- NOTE | 2023-10-02 14:52 | XR_ITS ---
The [address] [address] Patient Name: ASTON ZULUAGA MRN: [id number] date: 1935 Sex: F Assigned Patient Location: ER Current Patient Location: ED.MAIN Accession/Order Number: [id number] Exam Date: 10/02/2023 15:00 Report Date: 10/02/2023 15:50 At the request of: CHRISTINE GRIER Procedure: XR pelvis 1-2V IMAGES REVIEWED: XR femur LT 2V, XR foot LT min 3V, XR pelvis 1-2V COMPARISON: 09/13/2021, 07/12/2022. CLINICAL INDICATION: fall FINDINGS/IMPRESSION: Pelvis/left femur: 1. Questionable bony irregularity of the left inferior pubic ramus, correlate for focal tenderness. Patient with chronic deformity of the left superior pubic ramus. 2. Osteopenia. 3. Status post prior ORIF of old healed left proximal femur fracture with intact appearing ORIF hardware and cement placement in the left femoral head-neck. No evidence of acute osseous abnormality of the left femur. 4. 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 5. Severe degenerative disc disease L4-L5. Left foot: 1. Apparent lateral and medial left foot soft tissue wound. It is unclear if this relates to diabetic ulcer or acute traumatic injury. No radiographic evidence of osteomyelitis or acute osseous abnormality of the left foot. 2. Small left plantar calcaneal spur. 3. Left accessory navicular. 4. Peripheral arterial disease. 5. No radiopaque foreign bodies in the soft tissues. Electronically authenticated by: RAMSES BATISTA Date: 10/02/2023 15:50
--- NOTE | 2023-10-02 14:53 | XR_ITS ---
The [address] [address] Patient Name: ASTON ZULUAGA MRN: [id number] date: 1935 Sex: F Assigned Patient Location: ER Current Patient Location: ED.MAIN Accession/Order Number: [id number] Exam Date: 10/02/2023 15:00 Report Date: 10/02/2023 15:50 At the request of: CHRISTINE GRIER Procedure: XR foot LT min 3V IMAGES REVIEWED: XR femur LT 2V, XR foot LT min 3V, XR pelvis 1-2V COMPARISON: 09/13/2021, 07/12/2022. CLINICAL INDICATION: fall FINDINGS/IMPRESSION: Pelvis/left femur: 1. Questionable bony irregularity of the left inferior pubic ramus, correlate for focal tenderness. Patient with chronic deformity of the left superior pubic ramus. 2. Osteopenia. 3. Status post prior ORIF of old healed left proximal femur fracture with intact appearing ORIF hardware and cement placement in the left femoral head-neck. No evidence of acute osseous abnormality of the left femur. 4. 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 5. Severe degenerative disc disease L4-L5. Left foot: 1. Apparent lateral and medial left foot soft tissue wound. It is unclear if this relates to diabetic ulcer or acute traumatic injury. No radiographic evidence of osteomyelitis or acute osseous abnormality of the left foot. 2. Small left plantar calcaneal spur. 3. Left accessory navicular. 4. Peripheral arterial disease. 5. No radiopaque foreign bodies in the soft tissues. Electronically authenticated by: RAMSES BATISTA Date: 10/02/2023 15:50
--- NOTE | 2023-10-02 14:53 | ED.GENADUL1 ---
HPI HPI - General Adult General Chief complaint: Fall Stated complaint: FALL Time Seen by Provider: 10/02/23 14:52 History of Present Illness HPI narrative: Patient is an 87-year-old female who presents to the emergency department for the evaluation of left leg pain after a fall. Patient states she was in her apartment at a nursing facility where she is a resident, she states she had a mechanical fall where she tripped and landed on her bottom. She reports pain in the left hip and thigh. She denies hitting her head, she had no loss of consciousness. She has no pain to the neck or back. She is sitting comfortably at initial interview. Nursing facility did have an outbreak of COVID which the patient had recently. She has no other focal medical complaints at this time. Related Data Home Medications ?Medication ?Instructions ?Recorded ?Confirmed alendronate 70 mg tablet 70 mg PO QWEEK 01/07/23 08/26/23 amiodarone 200 mg tablet 200 mg PO Q24H 01/07/23 08/26/23 atorvastatin 40 mg tablet 40 mg PO Q24H 01/07/23 08/26/23 escitalopram oxalate 10 mg tablet 10 mg PO Q24H 01/07/23 08/26/23 ferrous sulfate 325 mg (65 mg 325 mg PO Q12H 01/07/23 08/26/23 iron) tablet furosemide 20 mg tablet 20 mg PO Q24H 01/07/23 08/26/23 levothyroxine 25 mcg tablet 25 mcg PO Q24H 01/07/23 08/26/23 liothyronine 5 mcg tablet 5 mcg PO Q24H 01/07/23 08/26/23 memantine 28 mg capsule 28 mg PO Q24H 01/07/23 08/26/23 sprinkle,extended release 24hr montelukast 10 mg tablet 10 mg PO Q24H 01/07/23 08/26/23 olanzapine 2.5 mg tablet 2.5 mg PO .QHS 01/07/23 08/26/23 pantoprazole 40 mg tablet,delayed 40 mg PO Q12H 01/07/23 08/26/23 release heparin (porcine) 5,000 unit/mL 5,000 unit subcut Q8H 08/26/23 08/26/23 injection solution Previous Rx's ?Medication ?Instructions ?Recorded acetaminophen 650 mg 650 mg PO Q8H PRN pain #20 tabs 01/07/23 tablet,extended release (Tylenol 8 Hour) metoprolol tartrate 25 mg tablet 12.5 mg (1/2 x 25 mg) PO BID #30 01/22/23 tabs amino acids-protein hydrolysate 15 1 ea PO BID #2,880 mL 08/30/23 gram-100 kcal/30 mL oral liquid pkt (Pro-Stat Sugar Free) arginine 7 gram-glutam 7 1 packet PO BID #60 ea 08/30/23 gram-CaHMB 1.5 roxw-[id number]-hb-min oral pwd pkt (Claudio (with collagen)) cefdinir 300 mg capsule 600 mg (2 x 300 mg) PO DAILY #60 08/30/23 caps clindamycin HCl 300 mg capsule 300 mg PO Q6H #120 caps 08/30/23 oxycodone-acetaminophen 5 mg-325 1 tab PO Q4H PRN Pain Scale 7-10 08/30/23 mg tablet #180 tabs Allergies Allergy/AdvReac Type Severity Reaction Status Date / Time penicillin G Allergy Intermediate Hives Verified 10/02/23 14:54 Sulfa (Sulfonamide Allergy Intermediate Unknown Verified 10/02/23 14:54 Antibiotics) ceftriaxone [From Rocephin] Allergy Hives Verified 10/02/23 14:54 Opioid HPI Opioid Management Most Recent Opioid Data: Last Pain Scale 6 10/02/23 15:27 Last Pain Intensity 5 08/29/23 12:57 Last MAR Pain Assessment 10/02/23 15:27 Last ORT Total Score 0 08/26/23 20:47 Last ORT Risk Category Low Risk 08/26/23 20:47 Review of Systems ROS Constitutional Denies: fever or chills Ears, nose, mouth, and throat Denies: nasal congestion Cardiovascular Denies: chest pain Respiratory Denies: shortness of breath or cough Gastrointestinal Denies: nausea or vomiting Musculoskeletal Reports: extremity pain; Denies: back pain or neck pain Hematologic/Lymphatic Denies: easy bruising or easy bleeding [facility] Medical History (Updated 10/02/23 @ 16:28 by REMINGTON Townsend) Unstageable pressure ulcer of left foot ?L89.890 - Pressure ulcer of other site, unstageable (ICD-10) Peripheral vascular disease ?I73.9 - Peripheral vascular disease, unspecified (ICD-10) Wound of left foot ?S91.302A - Unspecified open wound, left foot, initial encounter (ICD-10) Aortic stenosis ?I35.0 - Nonrheumatic aortic (valve) stenosis (ICD-10) Atrial flutter ?I48.92 - Unspecified atrial flutter (ICD-10) Atrial fibrillation ?I48.91 - Unspecified atrial fibrillation (ICD-10) Hypoxia ?R09.02 - Hypoxemia (ICD-10) Supratherapeutic INR ?R79.1 - Abnormal coagulation profile (ICD-10) Sepsis ?A41.9 - Sepsis, unspecified organism (ICD-10) CKD (chronic kidney disease) ?N18.9 - Chronic kidney disease, unspecified (ICD-10) Community acquired pneumonia ?J18.9 - Pneumonia, unspecified organism (ICD-10) Congestive heart failure (Unknown) ?I50.9 - Heart failure, unspecified (ICD-10) Acute viral syndrome ?B34.9 - Viral infection, unspecified (ICD-10) Social History Smoking status: Never smoker Highest level of school completed/degree received: 10th grade Exam Narrative Exam Narrative: Gen.: Awake, alert, in no distress Head: Normocephalic, atraumatic ENT: Moist mucous membranes, no evidence of head or facial injury. C-spine is nontender Respiratory: No respiratory distress Gastrointestinal: Abdomen is soft, nondistended and nontender to palpation Back: No bony tenderness of the T-spine or L-spine with healed scab to the right flank. Extremities: Postop shoe with dressing to left foot from previous wound. No bony tenderness of the left ankle, tib-fib or knee. Diffuse mild tenderness of the left thigh, no lateral left hip tenderness or pelvic tenderness. Right lower extremity is nontender to palpation Psych: Normal mood and affect Neuro: No focal neuro deficit Skin: Warm, dry, intact Constitutional Vital Signs, click to edit/add: Last Vital Signs Temp 98.3 F 10/02/23 14:54 Pulse 65 10/02/23 14:54 Resp 14 10/02/23 14:54 BP 159/77 H 10/02/23 14:54 Pulse Ox 99 10/02/23 14:54 O2 Del Method Room Air 10/02/23 14:54 Course Vital Signs Vital signs: Vital Signs Temperature 98.3 F 10/02/23 14:54 Pulse Rate 65 10/02/23 14:54 Respiratory Rate 14 10/02/23 14:54 Blood Pressure 159/77 H 10/02/23 14:54 Pulse Oximetry 99 10/02/23 14:54 Oxygen Delivery Method Room Air 10/02/23 14:54 Temperature 98.3 F 10/02/23 14:54 Pulse Rate 65 10/02/23 14:54 Respiratory Rate 14 10/02/23 14:54 Blood Pressure 159/77 H 10/02/23 14:54 Pulse Oximetry 99 10/02/23 14:54 Oxygen Delivery Method Room Air 10/02/23 14:54 Medical Decision Making MDM Narrative Medical decision making narrative: After my evaluation, the patient stated that her right foot was painful. X-rays of the right foot were added to x-rays of the pelvis and left femur. Patient medicated with [place]. Patient show no evidence of acute fracture, patient has a stable chronic deformity of the left superior pubic ramus. Radiologist questions a subtle cortical irregularity of the inferior pelvis. Patient is neurovascularly intact at this time. No indication for different management as she has a chronic pelvic fracture/deformity. Follow-up with PCP and return to the ER if symptoms change or worsen. Patient is going back to the [place] where she currently resides. SUPERVISED APC VISIT, PHYSICIAN ATTESTATION: Based on the medical record the care appears appropriate. ? Medical Records Medical records reviewed: Yes I reviewed the patient's medical records Imaging Data XR pelvis: Attestation: I have reviewed the pertinent imaging results. Discharge Plan Discharge Stand Alone Forms: Portal Instructions Chief Complaint: Fall Clinical Impression: Fall, Left leg pain Patient Disposition: Home, Self-Care Time of Disposition Decision: 16:27 Condition: Good Prescriptions / Home Meds: No Action alendronate 70 mg tablet 70 mg PO QWEEK Rx Instructions: ONCE A WEEK DOSING, PLEASE VERIFY WHICH DAY SHE TAKES THIS MEDICATION. LAST FILLED 11/26/22 FOR 84 DAYS SUPPLY PER FILL HX amiodarone 200 mg tablet 200 mg PO Q24H atorvastatin 40 mg tablet 40 mg PO Q24H escitalopram oxalate 10 mg tablet 10 mg PO Q24H ferrous sulfate 325 mg (65 mg iron) tablet 325 mg PO Q12H acetaminophen [Tylenol 8 Hour] 650 mg tablet extended release 650 mg PO Q8H PRN (Reason: pain) Qty: 20 0RF furosemide 20 mg tablet 20 mg PO Q24H levothyroxine 25 mcg tablet 25 mcg PO Q24H liothyronine 5 mcg tablet 5 mcg PO Q24H memantine 28 mg capsule,sprinkle,ER 24hr 28 mg PO Q24H montelukast 10 mg tablet 10 mg PO Q24H olanzapine 2.5 mg tablet 2.5 mg PO .QHS Rx Instructions: AT BEDTIME, PER REFILL HISTORY. LAST FILLED 11/06/22 FOR 90 DAYS pantoprazole 40 mg tablet,delayed release (DR/EC) 40 mg PO Q12H heparin (porcine) 5,000 unit/mL solution 5,000 unit subcut Q8H oxycodone-acetaminophen 5-325 mg Tablet 1 tab PO Q4H PRN (Reason: Pain Scale 7-10) Qty: 180 0RF Pro-Stat Sugar Free 15 gram- 100 kcal/30 mL Liquid In Packet 1 ea PO BID Qty: 2880 11RF Claudio (with collagen) 7-7-1.5 gram Powder In Packet 1 packet PO BID Qty: 60 11RF cefdinir 300 mg capsule 600 mg PO DAILY Qty: 60 0RF clindamycin HCl 300 mg capsule 300 mg PO Q6H Qty: 120 0RF metoprolol tartrate 25 mg Tablet 12.5 mg PO BID Qty: 30 11RF Print Language: Spanish Instructions: Leg Pain (ED) Referrals: Chase Nolan MD [Primary Care Provider] - 1 week
[2023-10-02 14:54] VITALS: BP 159/77; PULSE 65; TEMP 36.8; O2SAT 99; BMI 23.4
--- NOTE | 2023-10-02 14:54 | PC.NURSE ---
patient c/o left left and foot pain after tripping and falling while walking out of bathroom. patient has surgical shoe on left foot protecting previous left heal wound. patient c/o buttock pain as she fell onto her buttocks and ethel her left heal per patient. denies hitting head or LOC
--- NOTE | 2023-10-02 15:15 | XR_ITS ---
The [address] [address] Patient Name: ASTON ZULUAGA MRN: [id number] date: 1935 Sex: F Assigned Patient Location: ER Current Patient Location: ED.MAIN Accession/Order Number: [id number] Exam Date: 10/02/2023 15:00 Report Date: 10/02/2023 15:50 At the request of: CHRISTINE GRIER Procedure: XR femur LT 2V IMAGES REVIEWED: XR femur LT 2V, XR foot LT min 3V, XR pelvis 1-2V COMPARISON: 09/13/2021, 07/12/2022. CLINICAL INDICATION: fall FINDINGS/IMPRESSION: Pelvis/left femur: 1. Questionable bony irregularity of the left inferior pubic ramus, correlate for focal tenderness. Patient with chronic deformity of the left superior pubic ramus. 2. Osteopenia. 3. Status post prior ORIF of old healed left proximal femur fracture with intact appearing ORIF hardware and cement placement in the left femoral head-neck. No evidence of acute osseous abnormality of the left femur. 4. 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 5. Severe degenerative disc disease L4-L5. Left foot: 1. Apparent lateral and medial left foot soft tissue wound. It is unclear if this relates to diabetic ulcer or acute traumatic injury. No radiographic evidence of osteomyelitis or acute osseous abnormality of the left foot. 2. Small left plantar calcaneal spur. 3. Left accessory navicular. 4. Peripheral arterial disease. 5. No radiopaque foreign bodies in the soft tissues. Electronically authenticated by: RAMSES BATISTA Date: 10/02/2023 15:50
[2023-10-02] MEDS: HYDROCODONE/ACET 5-325 MG TABLET 1 TAB PO (15:27)
== END 2023-10-02 17:42 | disposition home or self-care (01) ==
PROVIDERS: Emergency Provider Emergency Medicine; PCP Family Medicine
DX: M79.605 Pain in left leg (principal); Z86.16 Personal history of COVID-19; W01.0XXA Fall on same level from slipping, tripping and stumbling without subsequent striking against object, initial encounter
CPT/HCPCS: 72170; 73552; 73630; 99285

== ENCOUNTER 2023-10-16 09:00 | Outpatient (OUT) | payer MEDICARE, SELFPAY ==
--- OUTSIDE RECORDS SUMMARY | 2023-10-17 09:01 | XMS_ITS | CCD ---
Author Organization [facility] Care Team Providers Care Appraiser Irrigation [employer] Name Role Phone PROVIDER, UNKNOWN Admitting Unavailable PROVIDER, UNKNOWN Attending Unavailable CHRISTINE ALEXANDRE Referring Unavailable PROVIDER, UNKNOWN Admitting Unavailable PROVIDER, UNKNOWN Attending Unavailable CHRISTINE ALEXANDRE Referring Unavailable PROVIDER, UNKNOWN Admitting Unavailable PROVIDER, UNKNOWN Attending Unavailable CHRISTINE ALEXANDRE Referring Unavailable ROB MORALES Attending Unavailable ROB MORALES Admitting Unavailable CHASE MÉNDEZ Referring Unavailable CHASE MÉNDEZ Primary Care Unavailable LEV DELEONNY Admitting Unavailable BERNICE DELEON Attending Unavailable DEV ., DR ALVARENGA Primary Care Unavailable BERNICE DELEON Consulting Unavailable FAWWAD, AYOUB H Admitting Unavailable FAWWAD, AYOUB H Attending Unavailable HOY ., DR ALVARENGA Primary Care Unavailable HOY ., DR ALVARENGA Primary Care Unavailable HOY ., DR ALVARENGA Consulting Unavailable HOY ., DR ALVARENGA Admitting Unavailable HOY ., DR ALVARENGA Attending Unavailable ADAMARIS, DR HANNA Jimenez Consulting Unavailable LATIA BAUMANN Consulting Unavailable CARLOS ESCOBEDO Consulting Unavailable DARAMOLMIRANDA Justice Consulting Unavailable MICHAELY ., DR ALVARENGA Admitting Unavailable HOY ., DR ALVARENGA Attending Unavailable HOY ., DR ALVARENGA Primary Care Unavailable HOY ., DR ALVARENGA Consulting Unavailable HOY ., DR ALVARENGA Primary Care Unavailable HOY ., DR ALVARENGA Admitting Unavailable HOY ., DR ALVARENGA Attending Unavailable FAWWAD, AYOUB H Attending Unavailable FAWWAD, AYOUB H Admitting Unavailable HONai .DR ALVARENGA Primary Care Unavailable FAWWAD, AYOUB [...] Unavailable HOY ., DR ALVARENGA Admbrent Unavailable FAWWAD, AYOUB H Attending Unavailable FAWWAD, [...] ALVARENGA Admbrent Unavailable HOY ., DR ALVARENGA Consulting Unavailable [...] Unavailable HOY ., DR ALVARENGA Admbrent Unavailable CLOQUET, DR JUAN JOSÉ Mobley Consulting Unavailable HAY ., DR MERCADO Consulting Unavailable JENNIFER, RAMIRO Admitting Unavailable RAMRIO RODRIGUEZ Attending Unavailable HOY ., DR ALVARENGA Primary Care Unavailable HOY ., DR ALVARENGA Consulting Unavailable HOY ., DR ALVARENGA Primary Care Unavailable HOY ., DR ALVARENGA Admitting Unavailable HOY ., DR ALVARENGA Attending Unavailable JUAN F ENCARNACION Unavailable SHAIKH TINSLEY H Admitting Unavailable HOY ., DR ALVARENGA Primary Care Unavailable SHAIKH TINSLEY H Attending Unavailable AURELIO HUANG Admitting Unavailable ELIJAH Husain, AURELIO Attending Unavailable HONai ., DR ALVARENGA Primary Care Unavailable Chase Méndez Primary Care Physician Tom THOMPSON Attending Unavailable Tom THOMPSON Attending Unavailable Tom THOMPSON Attending Unavailable MD Chase Méndez Attending Provider [phone] Chase Méndez Attending Unavailable Michaely, Chase M Admitting Unavailable Hoy, Chase M Attending Unavailable Michaely Chase M Admitting Unavailable ABDI ROYAL Attending Unavailable Chase Méndez MD Primary Care Provider [phone] HOY, CHASE M Referring Unavailable HOY, CHASE M Primary Care Unavailable HOY, CHASE M Referring Unavailable HOY, CHASE M Primary Care Unavailable HOY, CHASE M Referring Unavailable HOY, CHASE M Primary Care Unavailable HOY, CHASE M Referring Unavailable HOY, CHASE M Primary Care Unavailable HOY, CHASE M Referring Unavailable HOY, CHASE M Primary Care Unavailable HOY, CHASE M Referring Unavailable HOY, CHASE M Primary Care Unavailable HOY, CHASE M Primary Care Unavailable HOY, CHASE M Referring Unavailable HOY, CHASE M Primary Care Unavailable HOY, CHASE M Referring Unavailable HOY, CHASE M Primary Care Unavailable HOY, CHASE M Referring Unavailable HOY, CHASE M Referring Unavailable HOY, CHASE M Primary Care Unavailable SANJAY BERNARD Consulting Unavailable HOY, CHASE M Primary Care Unavailable SANJAY BERNARD Admitting Unavailable SANJAY BERNARD Attending Unavailable JOHN PERLA Consulting Unavailable DENILSON MANN Consulting Unavailable MARGIE FUNEZ Consulting Unavailable LUCIO BURRIS Consulting Unavailable SEVERIANO BRAMBILA Consulting Unavailable SANJAY BERNARD Consulting Unavailable HOY, CHASE M Primary Care Unavailable SANJAY BERNARD Admitting Unavailable SANJAY BERNARD Attending Unavailable JOHN PERLA Consulting Unavailable DENILSON MANN Consulting Unavailable MARGIE FUNEZ Consulting Unavailable LUCIO BURRIS Consulting Unavailable SEVERIANO BRAMBILA Consulting Unavailable JUAN JOSÉ PEDERSON~[id number] Attend ing Unavailable SANJAY BERNARD MD Consulting Unavailable JOHN PERLA Referring Unavailable HOY, CHASE M Primary Care Unavailable GERARDO ZAMORA Referring Unavailable HOY, CHASE M Primary Care Unavailable JOHN PERLA Referring Unavailable HOY, CHASE M Primary Care Unavailable HOY, CHASE M Referring Unavailable HOY, CHASE M Primary Care Unavailable NAV, MARQUEZ F Attending Unavailable NAV, MOHAMED F Admitting Unavailable NAV, MOHAMED F Attending Unavailable MARTHA MCLEAN Attending Unavailable NAV, MOHAMED F Attending Unavailable NAV, MOHAMED F Referring Unavailable ANDREWROB Referring Unavailable ANDREWROB Attending Unavailable LV BLANKENSHIP Attending Unavailable Allergies Allergy Classification Reported Allergen(s) Allergy Type Date of Onset Reaction(s) Facility (10 sources) Penicillins; Translations: [PENICILLINS] Propensity to adverse reactions to drug (disorder) 05-14-19 13 Anaphylactic shock due to serum (disorder), Urticaria (disorder) [facility]) Sulfonamides (Antibiotic); Translations: [SULFA ANTIBIOTICS] Propensity to adverse reactions to drug (disorder) 01-05-20 17 [facility] (6 sources) Sulfonamides (Antibiotic); Translations: [SULFA (SULFONAMIDE ANTIBIOTICS)] Drug allergy (disorder) 05-14-19 13 [facility] Repository (2 sources) cefTRIAXone Drug Allergy 05-17-19 20 [facility] Repository (4 sources) Cephalexin; Translations: [cephalexin] Drug Allergy 09-01-19 Anaphylaxis (disorder) [facility] [place] (4 sources) metroNIDAZOLE; Translations: [metronidazole] Drug Allergy 09-01-19 [place] (disorder) [facility] [place] (3 sources) Sulfonamides (Antibiotic); Translations: [sulfa drugs] Drug allergy 01-04-20 17 Urticaria (disorder) [facility] [place] (3 sources) cefTRIAXone; Translations: [CEFTRIAXONE] Drug Allergy 09-01-19 [facility] Repository (1 source) Sulfamethoxazole / Trimethoprim; Translations: [SULFAMETHOXAZOLE-T RIMETHOPRIM] Drug Allergy 11-01-19 [facility] Repository Medications Current Medications Medication Drug [...] Status: Ordered Cranberry-Vitamin C (CRANBERRY CONCENTRATE/VITAMINC ) 32728-568 MG CAPS (2 sources) take 1 tablet by mouth once daily Cranberry-Vitamin C (CRANBERRY CONCENTRATE/VITAMIN C) 92868-638 MG CAPS Take 1 tablet by mouth [...] mg extended release oral capsule (2 sources) C-ezuxej-Y-aspartate Receptor Antagonist Start: 11-08-2022 take 1 capsule [...] tablet (5 sources) Leukotriene Receptor Antagonist Start: 023 take 1 tablet by mouth once daily Singulair 10 mg Tab 10 mg = 1 tab(s), Oral, Daily, Refills(s) 0 Start Date: 11/08/22 Status: Ordered OLANZapine 2.5 mg oral tablet (5 sources) Atypical Antipsychotic Start: 023 take 1 tablet by mouth once daily [...] by mouth See Admin Instructions Dosed by [facility] Anticoagulation Service: 1.5 mg Wed/Sat and [...] PART UTRUS] Onset: 3 Episodic Cardiac dysrhythmias (20 sources) Unspecified atrial fibrillation; Translations: [Atrial premature complex ] Onset: 3 Chronic Chronic kidney disease (3 sources) Chronic kidney disease, stage 2 (mild); Translations: [Chronic kidney disease stage 3] Onset: 2 11-08-2022 Chronic Coagulation and hemorrhagic disorders (1 source) Thrombocytopenia, unspecified; Translations: [THROMBOCYTOPENIA UNSPECIFIED] Onset: 3 Chronic Conduction disorders (5 sources) Presence of cardiac pacemaker; Translations: [Sinus node dysfunction] Onset: 3 11-08-2022 Chronic Congestive heart failure; nonhypertensive (8 sources) Acute combined systolic and diastolic heart failure; Translations: [Congestive heart failure] Onset: 3 11-08-2022 Chronic Diabetes mellitus with complications (3 sources) Type 2 diabetes mellitus with diabetic chronic kidney disease; Translations: [Type 2 diabetes mellitus with hyperglycemia] Onset: 3 Chronic Diabetes mellitus without complication (5 sources) Type 2 diabetes mellitus without complications; Translations: [Diabetes mellitus without complication] Onset: 3 11-08-2022 Chronic Diseases of white blood cells (2 sources) Leukocytosis 11-08-2022 Chronic Disorders of lipid metabolism (6 sources) Pure hypercholesterolemia, unspecified; Translations: [Hyperlipidemia, unspecified] [...] Episodic Fracture of neck of femur (hip) (5 sources) Nondisplaced intertrochanteric fracture of left femur, initial encounter for closed fracture; Translations: [Fracture of unspecified part of neck of left femur, initial encounter for closed fracture] Onset: 4 Episodic Gangrene (2 sources) Atherosclerosis of [place] arteries of extremities with gangrene, left leg; Translations: [Atherosclerosis of [place] arteries of extremities with gangrene, left leg] Onset: 4 Chronic Genitourinary symptoms and ill-defined conditions (1 source) Personal history of urinary (tract) infections; Translations: [PERS HX URINARY TRACT INFECTIONS] Onset: 3 Episodic Heart valve disorders (18 sources) Nonrheumatic aortic (valve) stenosis; 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, aortic and tricuspid valves] Onset: 3 Chronic Hemorrhoids (2 sources) Hemorrhoids 11-08-2022 Episodic Hypertension with complications and secondary hypertension (3 sources) Hypertensive chronic kidney disease with stage 1 through stage 4 chronic kidney disease, or unspecified chronic kidney disease; Translations: [Hypertensive heart disease with heart failure] Onset: 3 Chronic Malaise and fatigue (2 [...] osteoporosis 11-08-2022 Chronic Other aftercare (5 sources) jail (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; 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] Onset: 3 Episodic Other aftercare (5 sources) Encounter for therapeutic drug level monitoring; Translations: [ENC THERAPEUTC DRUG LEVL MONITORING] Onset: 3 Episodic Other aftercare (1 source) 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; Translations: [INTERMEDIATE CURRENT USE OF INSULIN] Onset: 3 Episodic Other aftercare (5 sources) Other correction (current) drug therapy; Translations: [OTH INTERMEDIATE CURRENT DRUG THERAPY] Onset: 2 Episodic Other aftercare (1 source) jail (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 oral hypoglycemic drugs; Translations: [INTERMEDIATE USE ORAL HYPOGLYCEMIC DX] Onset: 3 Episodic [...] [Shortness of breath] Onset: 4 Episodic Other nervous system disorders (1 source) Claudication Onset: 4 Episodic Other screening for suspected [...] sources) Dysphonia; Translations: [DYSPHONIA] Onset: 3 Episodic Lana-; endo-; and myocarditis; cardiomyopathy (except that caused by tuberculosis or sexually transmitted disease) (2 sources) 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 classified elsewhere; Translations: [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 classified elsewhere] Onset: 4 Chronic Pneumonia (except that caused by tuberculosis or [...] sources) Insomnia 11-08-2022 Episodic Residual codes; unclassified (2 sources) Pain, unspecified; Translations: [Pain, unspecified] Onset: 4 [...] problems (2 sources) Lumbar radiculopathy 11-08-2022 Episodic Syncope (2 sources) Syncope and collapse; Translations: [Syncope and collapse] Onset: 3 Episodic Thyroid disorders (9 sources) Hypothyroidism, unspecified; Translations: [Hypothyroidism] Onset: 3 Chronic Unclassified (5 sources) Chronic atrial fibrillation, unspecified; Translations: [CHRONIC ATRIAL FIBRILLATION UNSPEC] Onset: 3 Unclassified (1 source) CHRN KIDNEY DISEASE STG 3 UNSP; Translations: [CHRN KIDNEY DISEASE STG 3 UNSP] Onset: 3 Unclassified (1 source) CONTACT W/AND (SUSP) EXPOS COVID-19; Translations: [CONTACT W/AND (SUSP) EXPOS COVID-19] Onset: 2 Unclassified (2 sources) Body mass index 20-24 - normal 11-14-2022 Unclassified (2 sources) Seborrheic keratosis 11-14-2022 Unclassified (1 source) Circulatory Problem Onset: 4 Unclassified (1 source) Critical limb 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[facility]) [I70.262] Onset: 4 Unclassified (2 sources) Other persistent atrial fibrillation; Translations: [Other persistent atrial fibrillation] Onset: 2 Urinary tract infections (1 source) Urinary tract [...] Test Name Value Interpretation Reference Range Facility Office Visiton 10-10-2023 Follow-up visit [id number] Carrie Lewis 1935 F Date Provider Department Center 10/10/2023 LV BROWN CARD [place] [facility] No family history on file Level of Service:61181 [place] OFFICE/OUTPATIENT ESTABLISHED MOD MDM 30 MIN Normal [facility] Creatinine (Bld) [Mass/Vol]o n 09-19-2023 Creatinine [Mass/Vol] 2.4 mg/dL High 0.4-1.0 [facility] Comment on above: Performed By: #### 6 299-2, 21747-6 #### [facility] ([id number]) [address] [place] [address] GFR/1.73 sq M.predicted among non-blacks MDRD (S/P/Bld) [Vol rate/Area] 19 mL/min/{1.73_m2} Low >59 [facility] Comment on above: Result Comment: Reported eGFR is based on the CKD-EPI 2020 equation that does not use a race coefficient. Performed By: #### 6 299-2, 87239-8 #### [facility] ([id number]) [address] [place] [address] HGB AND HCTon 09-19-2023 Hematocrit (Bld) [Volume fraction] 34.8 % Low 35-47 [facility] Comment on above: Performed By: #### H H #### [facility] ([id number]) [address] [place] [address] Hemoglobin (Bld) [Mass/Vol] 11.0 g/dL Low 11.7-15.5 [facility] Comment on above: Performed By: #### H H #### [facility] ([id number]) [address], [address] [place] [address] Urea nitrogen (Bld) [Mass/Vo l]on 09-19-2023 Glucose [Mass/Vol] 101 mg/dL High 65-99 [facility] Comment on above: Performed By: #### 6 299-2, 59935-2 #### [facility] ([id number]) [address] [place] [address] XR FEMUR LEFT (MIN 2 VIEWS)o n 09-06-2023 XR FEMUR LEFT (MIN 2 VIEWS) XR left femur: History: 87-year-old female status post intertrochanteric femur fracture and left cephalomedullary nail Comparison: 07/23/2023 Findings: 2 views of the left femur AP, and lateral demonstrating retained hardware with no sign of hardware loosening, or failure. Cerament is appreciated to the cephalad screw in the femoral head. Fracture appears to be well-maintained with good length, rotation, and alignment. There appears to be no change in fracture morphology. Impression: Maintained fracture length, alignment, and rotation of left intertrochanteric femur fracture status post cephalomedullary nail. XR left foot: History: 87-year-old female with left foot pain Comparison: None Findings: Multiple plain radiographic views of the left foot AP, oblique, and lateral demonstrating no acute fracture or other osseous abnormality. There are no dislocations subluxations appreciated. Diffuse osteopenia and mild degenerative change appreciated. Impression: Normal radiograph of the left foot without acute fracture or other osseous abnormality. Interpreted by: Gerardo Zamora MD Boothby, Benjamin C, Signed by: John Perla DO 09/06/23 Final result Normal [facility] XR FOOT LEFT (MIN 3 VIEWS)on 09-06-2023 XR FOOT LEFT (MIN 3 VIEWS) XR left femur: History: 87-year-old female status post intertrochanteric femur fracture and left cephalomedullary nail Comparison: 07/23/2023 Findings: 2 views of the left femur AP, and lateral demonstrating retained hardware with no sign of hardware loosening, or failure. Cerament is appreciated to the cephalad screw in the femoral head. Fracture appears to be well-maintained with good length, rotation, and alignment. There appears to be no change in fracture morphology. Impression: Maintained fracture length, alignment, and rotation of left intertrochanteric femur fracture status post cephalomedullary nail. XR left foot: History: 87-year-old female with left foot pain Comparison: None Findings: Multiple plain radiographic views of the left foot AP, oblique, and lateral demonstrating no acute fracture or other osseous abnormality. There are no dislocations subluxations appreciated. Diffuse osteopenia and mild degenerative change appreciated. Impression: Normal radiograph of the left foot without acute fracture or other osseous abnormality. Interpreted by: Gerardo Zamora MD Boothby, Benjamin C, Signed by: John Perla DO 09/06/23 Final result Normal [facility] XR FEMUR LEFT (MIN 2 VIEWS)o n 09-05-2023 XR FEMUR LEFT (MIN 2 VIEWS) History: Left femur CMN Comparison: 07/24/23 Findings: 2 views (AP, lat) of the left femur demonstrating intact hardware without change in alignment from previous. Increased consolidation at fracture site from previous. No new acute fracture seen. Impression: Stable left cephallomedullary nail with healing IT fracture. Interpreted by: Rimma Cartagena DO Miller, Richard Merton, DO Signed by: Christiano Mohamud DO 09/05/23 Final result Normal [facility] Basic Metabolic Profon 07-29 Anion gap [Moles/Vol] 9 mmol/L Normal - [facility] Comment on above: Performed By: #### B MPX #### [facility] [address] [place] [address] Log Buyer: Alexey Green MD Calcium [Mass/Vol] 8.1 mg/dL Low 8.6-10.4 [facility] Comment on above: Performed By: #### B MPX #### [facility] [address] [place] [address] Log Buyer: Alexey Green MD Chloride [Moles/Vol] 113 mmol/L High 98-107 [facility] Comment on above: Performed By: #### B MPX #### [facility] [address] [place] [address] Log Buyer: Alexey Green MD CO2 [Moles/Vol] 18 mmol/L Low 20-31 [facility] Comment on above: Performed By: #### B MPX #### [facility] [address] [place] [phone] Log Buyer: Alexey Green MD Creatinine [Mass/Vol] 2.2 mg/dL High 0.50-0.90 [facility] Comment on above: Performed By: #### B MPX #### [address] [address] Log Buyer: Alexey Green MD GFR/1.73 sq M.predicted among non-blacks MDRD (S/P/Bld) [Vol rate/Area] 21 mL/min/{1.73_m2} Low >60 [facility] Comment on above: Result Comment: These results [...] secretion. Performed By: #### B MPX #### [address] [address] Log Buyer: Alexey Green MD Glucose [Mass/Vol] 157 mg/dL High 74-99 [facility] Comment on above: Performed By: #### B MPX #### [address] [address] Log Buyer: Alexey Green MD Potassium [Moles/Vol] 4.8 mmol/L Normal 3.7-5.3 [facility] Comment on above: Performed By: #### B MPX #### [facility] [address] [place] [address] Log Buyer: Alexey Green MD Sodium [Moles/Vol] 140 mmol/L Normal 136-145 [facility] Comment on above: Performed By: #### B MPX #### [address] [address] Log Buyer: Alexey Green MD Urea nitrogen [Mass/Vol] 42 mg/dL High 8-23 [facility] Comment on above: Performed By: #### B MPX #### [facility] [address] [place] [address] Log Buyer: Alexey Green MD Anion gap [Moles/Vol] 9 mmol/L Normal 9-16 [facility] Comment on above: Performed By: #### B MP, CDP #### [facility] [address] [place] [address] Log Buyer: Alexey Green MD Calcium [Mass/Vol] 8.1 mg/dL Low 8.6-10.4 [facility] Comment on above: Performed By: #### B MP, CDP #### [facility] [address] [place] [phone] Log Buyer: Alexey Green MD Chloride [Moles/Vol] 113 mmol/L High 98-107 [facility] Comment on above: Performed By: #### B MP, CDP #### [facility] [address] [place] [address] Log Buyer: Alexey Green MD CO2 [Moles/Vol] 18 mmol/L Low 20-31 [facility] Comment on above: Performed By: #### B MP, CDP #### [facility] [address] [place] [address] Log Buyer: Alexey Green MD Creatinine [Mass/Vol] 2.2 mg/dL High 0.50-0.90 [facility] Comment on above: Performed By: #### B MP, CDP #### [address] [address] Log Buyer: Alexey Green MD GFR/1.73 sq M.predicted among non-blacks MDRD (S/P/Bld) [Vol rate/Area] 21 mL/min/{1.73_m2} Low >60 [facility] Comment on above: Result Comment: These results [...] renal tubular secretion. Performed By: #### B BASIL, CDP #### [facility] [address] [place] [phone] Log Buyer: Alexey Green MD Glucose [Mass/Vol] 157 mg/dL High 74-99 [facility] Comment on above: Performed By: #### B BASIL, CDP #### [facility] [address] [place] [address] Log Buyer: Alexey Green MD Potassium [Moles/Vol] 4.8 mmol/L Normal 3.7-5.3 [facility] Comment on above: Performed By: #### B BASIL, CDP #### [facility] [address] [place] [address] Log Buyer: Alexey Green MD Sodium [Moles/Vol] 140 mmol/L Normal 136-145 [facility] Comment on above: Performed By: #### B BASIL, CDP #### [facility] [address] [place] [address] Log Buyer: Alexey Green MD Urea nitrogen [Mass/Vol] 42 mg/dL High 8-23 [facility] Comment on above: Performed By: #### B BASIL, CDP #### [facility] [address] [place] [address] Log Buyer: Alexey rGeen MD CBC with Diffon 07-30-2023 Abs. Basophil 0.00 k/uL Normal 0.00-0.20 [facility] Comment on above: Performed By: #### B BASILX #### [facility] [address] [place] [address] Log Buyer: Alexey Green MD Abs.Imm.Granulocyte 0.11 k/uL Normal 0.00-0.30 [facility] Comment on above: Performed By: #### B MPX #### [address] [address] Log Buyer: Alexey Green MD Abs.Neutrophil (Seg) 5.72 k/uL Normal 1.50-8.10 [facility] Comment on above: Performed By: #### B MPX #### [place] [address] Log Buyer: Alexey Green MD Basophils/100 WBC (Bld) 0 % Normal 0-2 [facility] Comment on above: Performed By: #### B MPX #### [place] [address] Log Buyer: Alexey Green MD Eosinophils (Bld) [#/Vol] 0.32 10*3/uL Normal 0.00-0.44 [facility] Comment on above: Performed By: #### B MPX #### [address] [address] Log Buyer: Alexey Green MD Eosinophils/100 WBC (Bld) 3 % Normal 1-4 [facility] Comment on above: Performed By: #### B MPX #### [place] [address] Log Buyer: Alexey Green MD Immature granulocytes/100 WBC (Bld) 1 % High 0 [facility] Comment on above: Performed By: #### B MPX #### [place] [address] Log Buyer: Alexey Green MD Lymphocytes (Bld) [#/Vol] 2.92 10*3/uL Normal 1.10-3.70 [facility] Comment on above: Performed By: #### B MPX #### [address] [address] Log Buyer: Alexey Green MD Lymphocytes/100 WBC (Bld) 27 % Normal 24-43 [facility] Comment on above: Performed By: #### B MPX #### [address] [address] Log Buyer: Alexey Green MD Monocytes (Bld) [#/Vol] 1.73 10*3/uL High 0.10-1.20 [facility] Comment on above: Performed By: #### B MPX #### [address] [address] Log Buyer: Alexey Green MD Monocytes/100 WBC (Bld) 16 % High 3-12 [facility] Comment on above: Performed By: #### B MPX #### [address] [address] Log Buyer: Alexey Green MD Morphology Tito (Bld) [Interp] ANISOCYTOSIS PRESENT Normal [facility] Comment on above: Result Comment: MACR OCYTOSIS PRESENT Performed By: #### B MPX #### [address] [address] Log Buyer: Alexey Green MD Neutrophil (Seg) 53 % Normal 36-65 [facility] [facility] Comment on above: Performed By: #### B MPX #### [address] [address] Log Buyer: Alexey Green MD Erythrocyte distribution width (RBC) [Ratio] 17.7 % High 11.8-14.4 [facility] Comment on above: Performed By: #### B MPX #### [address] [address] Log Buyer: Alexey Green MD Hematocrit (Bld) [Volume fraction] 26.6 % Low 36.3-47.1 [facility] Comment on above: Performed By: #### B MPX #### [address] [address] Log Buyer: Alexey Green MD Hemoglobin (Bld) [Mass/Vol] 7.6 g/dL Low 11.9-15.1 [facility] Comment on above: Performed By: #### B MPX #### [address] [address] Log Buyer: Alexey Green MD MCH (RBC) [Entitic mass] 29.5 pg Normal 25.2-33.5 [facility] Comment on above: Performed By: #### B MPX #### [address] [address] Log Buyer: Alexey Green MD MCHC (RBC) [Mass/Vol] 28.6 g/dL Normal 28.4-34.8 [facility] Comment on above: Performed By: #### B MPX #### [address] [address] Log Buyer: Alexey Green MD MCV (RBC) [Entitic vol] 103.1 fL High 82.6-102.9 [facility] Comment on above: Performed By: #### B MPX #### [address] [address] Log Buyer: Alexey Green MD NRBC Automated 0.4 per 100 WBC High 0.0 [facility] Comment on above: Performed By: #### B MPX #### [address] [address] Log Buyer: Alexey Green MD Platelet mean volume (Bld) [Entitic vol] 10.9 fL Normal 8.1-13.5 [facility] Comment on above: Performed By: #### B MPX #### [address] [address] Log Buyer: Alexey Green MD Platelets (Bld) [#/Vol] 226 10*3/uL Normal 138-453 [facility] Comment on above: Performed By: #### B MPX #### [address] [address] Log Buyer: Alexey Green MD RBC (Bld) [#/Vol] 2.58 10*6/uL Low 3.95-5.11 [facility] Comment on above: Performed By: #### B MPX #### [address] [address] Log Buyer: Alexey Green MD WBC (Bld) [#/Vol] 10.8 10*3/uL Normal 3.5-11.3 [facility] Comment on above: Performed By: #### B MPX #### [address] [address] Log Buyer: Alexey Green MD Abs. Basophil 0.00 k/uL Normal 0.00-0.20 [facility] Comment on above: Performed By: #### B BASIL CDP #### [address] [address] Log Buyer: Alexey Green MD Abs.Imm.Granulocyte 0.11 k/uL Normal 0.00-0.30 [facility] Comment on above: Performed By: #### B BASIL CDP #### [facility] [address] [place] [address] Log Buyer: Alexey Green MD Abs.Neutrophil (Seg) 5.72 k/uL Normal 1.50-8.10 [facility] Comment on above: Performed By: #### B FARHANA GRACIA #### [facility] [address] [place] [address] Log Buyer: Alexey Green MD Basophils/100 WBC (Bld) 0 % Normal 0-2 [facility] Comment on above: Performed By: #### B MP, CDP #### [facility] [address] [place] [address] Log Buyer: Alexey Green MD Eosinophils (Bld) [#/Vol] 0.32 10*3/uL Normal 0.00-0.44 [facility] Comment on above: Performed By: #### B MP, CDP #### [address] [address] Log Buyer: Alexey Green MD Eosinophils/100 WBC (Bld) 3 % Normal 1-4 [facility] Comment on above: Performed By: #### B MP, CDP #### [address] [address] Log Buyer: Alexey Green MD Immature granulocytes/100 WBC (Bld) 1 % High 0 [facility] Comment on above: Performed By: #### B MP, CDP #### [address] [address] Log Buyer: Alexey Green MD Lymphocytes (Bld) [#/Vol] 2.92 10*3/uL Normal 1.10-3.70 [facility] Comment on above: Performed By: #### B MP, CDP #### [facility] [address] [place] [address] Log Buyer: Alexey Green MD Lymphocytes/100 WBC (Bld) 27 % Normal 24-43 [facility] Comment on above: Performed By: #### B MP, CDP #### [address] [address] Log Buyer: Alexey Green MD Monocytes (Bld) [#/Vol] 1.73 10*3/uL High 0.10-1.20 [facility] Comment on above: Performed By: #### B MP, CDP #### [address] [address] Log Buyer: Alexey Green MD Monocytes/100 WBC (Bld) 16 % High 3-12 [facility] Comment on above: Performed By: #### B MP, CDP #### [address] [address] Log Buyer: Alexey Green MD Morphology Tito (Bld) [Interp] ANISOCYTOSIS PRESENT Normal [facility] Comment on above: Result Comment: MACR OCYTOSIS PRESENT Performed By: #### B MP, CDP #### [address] [address] Log Buyer: Alexey Green MD Neutrophil (Seg) 53 % Normal 36-65 [facility] Comment on above: Performed By: #### B MP, CDP #### [address] [address] Log Buyer: Alexey Green MD Erythrocyte distribution width (RBC) [Ratio] 17.7 % High 11.8-14.4 [facility] Comment on above: Performed By: #### B MP, CDP #### [address] [address] Log Buyer: Alexey Green MD Hematocrit (Bld) [Volume fraction] 26.6 % Low 36.3-47.1 [facility] Comment on above: Performed By: #### B MP, CDP #### [address] [address] Log Buyer: Alexey Green MD Hemoglobin (Bld) [Mass/Vol] 7.6 g/dL Low 11.9-15.1 [facility] Comment on above: Performed By: #### B MP, CDP #### [address] [address] Log Buyer: Alexey Green MD MCH (RBC) [Entitic mass] 29.5 pg Normal 25.2-33.5 [facility] Comment on above: Performed By: #### B MP, CDP #### [address] [address] Log Buyer: Alexey Green MD MCHC (RBC) [Mass/Vol] 28.6 g/dL Normal 28.4-34.8 [facility] Comment on above: Performed By: #### B BASIL, CDP #### [address] [address] Log Buyer: Alexey Green MD MCV (RBC) [Entitic vol] 103.1 fL High 82.6-102.9 [facility] Comment on above: Performed By: #### B BASIL, CDP #### [address] [address] Log Buyer: Alexey Green MD NRBC Automated 0.4 per 100 WBC High 0.0 [facility] Comment on above: Performed By: #### B MP, CDP #### [address] [address] Log Buyer: Alexey Green MD Platelet mean volume (Bld) [Entitic vol] 10.9 fL Normal 8.1-13.5 [facility] Comment on above: Performed By: #### B MP, CDP #### [address] [address] Log Buyer: Alexey Green MD Platelets (Bld) [#/Vol] 226 10*3/uL Normal 138-453 [facility] Comment on above: Performed By: #### B BASIL, CDP #### [address] [place] [address] Log Buyer: Alexey Green MD RBC (Bld) [#/Vol] 2.58 10*6/uL Low 3.95-5.11 [facility] Comment on above: Performed By: #### B MP, CDP #### [facility] [address] [place] [address] Log Buyer: Alexey Green MD WBC (Bld) [#/Vol] 10.8 10*3/uL Normal 3.5-11.3 [facility] Comment on above: Performed By: #### B MP, CDP #### [facility] [address] [place] [address] Log Buyer: Alexey Green MD Basic Metabolic Profon 07-28 Anion gap [Moles/Vol] 9 mmol/L Normal 9-16 [facility] Comment on above: Performed By: #### B MPX #### [address] [address] Log Buyer: Alexey Green MD Calcium [Mass/Vol] 8.1 mg/dL Low 8.6-10.4 [facility] Comment on above: Performed By: #### B MPX #### [facility] [address] [place] [address] Log Buyer: Alexey Green MD Chloride [Moles/Vol] 112 mmol/L High 98-107 [facility] Comment on above: Performed By: #### B MPX #### [facility] [address] [place] [address] Log Buyer: Alexey Green MD CO2 [Moles/Vol] 18 mmol/L Low 20-31 [facility] Comment on above: Performed By: #### B MPX #### [facility] [address] [place] [address] Log Buyer: Alexey Green MD Creatinine [Mass/Vol] 2.5 mg/dL High 0.50-0.90 [facility] Comment on above: Performed By: #### B MPX #### [facility] [address] [place] [address] Log Buyer: Alexey Green MD GFR/1.73 sq M.predicted among non-blacks MDRD (S/P/Bld) [Vol rate/Area] 18 mL/min/{1.73_m2} Low >60 [facility] Comment on above: Result Comment: These results [...] secretion. Performed By: #### B MPX #### [facility] [address] [place] [address] Log Buyer: Alexey Green MD Glucose [Mass/Vol] 109 mg/dL High 74-99 [facility] Comment on above: Performed By: #### B MPX #### [facility] [address] [place] [address] Log Buyer: Alexey Green MD Potassium [Moles/Vol] 4.6 mmol/L Normal 3.7-5.3 [facility] Comment on above: Performed By: #### B MPX #### [facility] [address] [place] [address] Log Buyer: Alexey Green MD Sodium [Moles/Vol] 139 mmol/L Normal 136-145 [facility] Comment on above: Performed By: #### B MPX #### [facility] [address] [place] [address] Log Buyer: Alexey Green MD Urea nitrogen [Mass/Vol] 45 mg/dL High 8-23 [facility] Comment on above: Performed By: #### B MPX #### [facility] [address] [place] [address] Log Buyer: Alexey Green MD Anion gap [Moles/Vol] 9 mmol/L Normal 9-16 [facility] Comment on above: Performed By: #### B MP, CDP #### [facility] [address] [place] [address] Log Buyer: Alexey Green MD Calcium [Mass/Vol] 8.1 mg/dL Low 8.6-10.4 [facility] Comment on above: Performed By: #### B MP, CDP #### [facility] [address] [place] [address] Log Buyer: Alexey Green MD Chloride [Moles/Vol] 112 mmol/L High 98-107 [facility] Comment on above: Performed By: #### B MP, CDP #### [facility] [address] [place] [address] Log Buyer: Alexey Green MD CO2 [Moles/Vol] 18 mmol/L Low 20-31 [facility] Comment on above: Performed By: #### B MP, CDP #### [facility] [address] [place] [address] Log Buyer: Alexey Green MD Creatinine [Mass/Vol] 2.5 mg/dL High 0.50-0.90 [facility] Comment on above: Performed By: #### B MP, CDP #### [facility] [address] [place] [address] Log Buyer: Alexey Green MD GFR/1.73 sq M.predicted among non-blacks MDRD (S/P/Bld) [Vol rate/Area] 18 mL/min/{1.73_m2} Low >60 [facility] Comment on above: Result Comment: These results [...] renal tubular secretion. Performed By: #### B BASIL, CDP #### [facility] [address] [place] [address] Log Buyer: Alexey Green MD Glucose [Mass/Vol] 109 mg/dL High 74-99 [facility] Comment on above: Performed By: #### B BASIL, CDP #### [facility] [address] [place] [address] Log Buyer: Alexey Green MD Potassium [Moles/Vol] 4.6 mmol/L Normal 3.7-5.3 [facility] Comment on above: Performed By: #### B BASIL, CDP #### [facility] [address] [place] [address] Log Buyer: Alexey Green MD Sodium [Moles/Vol] 139 mmol/L Normal 136-145 [facility] Comment on above: Performed By: #### B BASIL, CDP #### [facility] [address] [place] [address] Log Buyer: Alexey Green MD Urea nitrogen [Mass/Vol] 45 mg/dL High 8-23 [facility] Comment on above: Performed By: #### B BASIL, CDP #### [facility] [address] [place] [address] Log Buyer: Alexey Green MD CBC with Diffon 07-29-2023 Abs. Basophil 0.05 k/uL Normal 0.00-0.20 [facility] Comment on above: Performed By: #### B MPX #### [address] [address] Log Buyer: Alexey Green MD Abs.Imm.Granulocyte 0.09 k/uL Normal 0.00-0.30 [facility] Comment on above: Performed By: #### B MPX #### [address] [address] Log Buyer: Alexey Green MD Abs.Neutrophil (Seg) 5.76 k/uL Normal 1.50-8.10 [facility] Comment on above: Performed By: #### B MPX #### [address] [address] Log Buyer: Alexey Green MD Basophils/100 WBC (Bld) 1 % Normal 0-2 [facility] Comment on above: Performed By: #### B MPX #### [address] [address] Log Buyer: Alexey Green MD Eosinophils (Bld) [#/Vol] 0.65 10*3/uL High 0.00-0.44 [facility] Comment on above: Performed By: #### B MPX #### [address] [address] Log Buyer: Alexey Green MD Eosinophils/100 WBC (Bld) 6 % High 1-4 [facility] Comment on above: Performed By: #### B MPX #### [address] [address] Log Buyer: Alexey Green MD Erythrocyte distribution width (RBC) [Ratio] 17.6 % High 11.8-14.4 [facility] Comment on above: Performed By: #### B MPX #### [address] [address] Log Buyer: Alexey Green MD Hematocrit (Bld) [Volume fraction] 27.1 % Low 36.3-47.1 [facility] Comment on above: Performed By: #### B MPX #### [address] [address] Log Buyer: Alexey Green MD Hemoglobin (Bld) [Mass/Vol] 7.7 g/dL Low 11.9-15.1 [facility] Comment on above: Performed By: #### B MPX #### [address] [address] Log Buyer: Alexey Green MD Immature granulocytes/100 WBC (Bld) 1 % High 0 [facility] Comment on above: Performed By: #### B MPX #### [address] [address] Log Buyer: Alexey Green MD Lymphocytes (Bld) [#/Vol] 2.69 10*3/uL Normal 1.10-3.70 [facility] Comment on above: Performed By: #### B MPX #### [address] [address] Log Buyer: Alexey Green MD Lymphocytes/100 WBC (Bld) 25 % Normal 24-43 [facility] Comment on above: Performed By: #### B MPX #### [address] [address] Log Buyer: Alexey Green MD MCH (RBC) [Entitic mass] 29.5 pg Normal 25.2-33.5 [facility] Comment on above: Performed By: #### B MPX #### [address] [address] Log Buyer: Alexey Green MD MCHC (RBC) [Mass/Vol] 28.4 g/dL Normal 28.4-34.8 [facility] Comment on above: Performed By: #### B MPX #### [address] [address] Log Buyer: Alexey Green MD MCV (RBC) [Entitic vol] 103.8 fL High 82.6-102.9 [facility] Comment on above: Performed By: #### B MPX #### [address] [address] Log Buyer: lAexey Green MD Monocytes (Bld) [#/Vol] 1.34 10*3/uL High 0.10-1.20 [facility] Comment on above: Performed By: #### B MPX #### [address] [address] Log Buyer: Alexey Green MD Monocytes/100 WBC (Bld) 13 % High 3-12 [facility] Comment on above: Performed By: #### B MPX #### [address] [address] Log Buyer: Alexey Green MD Neutrophil (Seg) 54 % Normal 36-65 [facility] Comment on above: Performed By: #### B MPX #### [address] [address] Log Buyer: Alexey Green MD NRBC Automated 0.3 per 100 WBC High 0.0 [facility] Comment on above: Performed By: #### B MPX #### [address] [address] Log Buyer: Alexey Green MD Platelet mean volume (Bld) [Entitic vol] 11.4 fL Normal 8.1-13.5 [facility] Comment on above: Performed By: #### B MPX #### [address] [address] Log Buyer: Alexey Green MD Platelets (Bld) [#/Vol] 180 10*3/uL Normal 138-453 [facility] Comment on above: Performed By: #### B MPX #### [address] [address] Log Buyer: Alexey Green MD RBC (Bld) [#/Vol] 2.61 10*6/uL Low 3.95-5.11 [facility] Comment on above: Performed By: #### B MPX #### [address] [address] Log Buyer: Alexey Green MD RBC morphology finding Nom (Bld) ANISOCYTOSIS PRESENT Normal [facility] Comment on above: Result Comment: MACR OCYTOSIS PRESENT Performed By: #### B MPX #### [address] [address] Log Buyer: Alexey Green MD WBC (Bld) [#/Vol] 10.6 10*3/uL Normal 3.5-11.3 [facility] Comment on above: Performed By: #### B MPX #### [address] [address] Log Buyer: Alexey Green MD Abs. Basophil 0.05 k/uL Normal 0.00-0.20 [facility] Comment on above: Performed By: #### B MP, CDP #### [address] [address] Log Buyer: Alexey Green MD Abs.Imm.Granulocyte 0.09 k/uL Normal 0.00-0.30 [facility] Comment on above: Performed By: #### B MP, CDP #### [address] [address] Log Buyer: Alexey Green MD Abs.Neutrophil (Seg) 5.76 k/uL Normal 1.50-8.10 [facility] Comment on above: Performed By: #### B MP, CDP #### [facility] [address] [place] [address] Log Buyer: Alexey Green MD Basophils/100 WBC (Bld) 1 % Normal 0-2 [facility] Comment on above: Performed By: #### B MP, CDP #### [address] [address] Log Buyer: Alexey Green MD Eosinophils (Bld) [#/Vol] 0.65 10*3/uL High 0.00-0.44 [facility] Comment on above: Performed By: #### B MP, CDP #### [facility] [address] [place] [address] Log Buyer: Alexey Green MD Eosinophils/100 WBC (Bld) 6 % High 1-4 [facility] Comment on above: Performed By: #### B MP, CDP #### [address] [address] Log Buyer: Alexey Green MD Erythrocyte distribution width (RBC) [Ratio] 17.6 % High 11.8-14.4 [facility] Comment on above: Performed By: #### B MP, CDP #### [address] [address] Log Buyer: Alexey Green MD Hematocrit (Bld) [Volume fraction] 27.1 % Low 36.3-47.1 [facility] Comment on above: Performed By: #### B MP, CDP #### [facility] [address] [place] [address] Log Buyer: Alexey Green MD Hemoglobin (Bld) [Mass/Vol] 7.7 g/dL Low 11.9-15.1 [facility] Comment on above: Performed By: #### B MP, CDP #### [address] [address] Log Buyer: Alexey rGeen MD Immature granulocytes/100 WBC (Bld) 1 % High 0 [facility] Comment on above: Performed By: #### B MP, CDP #### [address] [address] Log Buyer: Alexey Green MD Lymphocytes (Bld) [#/Vol] 2.69 10*3/uL Normal 1.10-3.70 [facility] Comment on above: Performed By: #### B BASIL, CDP #### [address] [address] Log Buyer: Alexey Green MD Lymphocytes/100 WBC (Bld) 25 % Normal 24-43 [facility] Comment on above: Performed By: #### B BASIL, CDP #### [address] [address] Log Buyer: Alexey Green MD MCH (RBC) [Entitic mass] 29.5 pg Normal 25.2-33.5 [facility] Comment on above: Performed By: #### B BASIL, CDP #### [address] [address] Log Buyer: Aleexy Green MD MCHC (RBC) [Mass/Vol] 28.4 g/dL Normal 28.4-34.8 [facility] Comment on above: Performed By: #### B MP, CDP #### [address] [address] Log Buyer: Alexey Green MD MCV (RBC) [Entitic vol] 103.8 fL High 82.6-102.9 [facility] Comment on above: Performed By: #### B MP, CDP #### [address] [address] Log Buyer: Alexey Green MD Monocytes (Bld) [#/Vol] 1.34 10*3/uL High 0.10-1.20 [facility] Comment on above: Performed By: #### B MP, CDP #### [facility] [address] [place] [address] Log Buyer: Alexey Green MD Monocytes/100 WBC (Bld) 13 % High 3-12 [facility] Comment on above: Performed By: #### B MP, CDP #### [facility] [address] [place] [address] Log Buyer: Alexey Green MD Neutrophil (Seg) 54 % Normal 36-65 [facility] Comment on above: Performed By: #### B MP, CDP #### [facility] [address] [place] [address] Log Buyer: Alexey Green MD NRBC Automated 0.3 per 100 WBC High 0.0 [facility] Comment on above: Performed By: #### B MP, CDP #### [facility] [address] [place] [address] Log Buyer: Alexey Green MD Platelet mean volume (Bld) [Entitic vol] 11.4 fL Normal 8.1-13.5 [facility] Comment on above: Performed By: #### B MP, CDP #### [facility] [address] [place] [address] Log Buyer: Alexey Green MD Platelets (Bld) [#/Vol] 180 10*3/uL Normal 138-453 [facility] Comment on above: Performed By: #### B MP, CDP #### [facility] [address] [place] [address] Log Buyer: Alexey Green MD RBC (Bld) [#/Vol] 2.61 10*6/uL Low 3.95-5.11 [facility] Comment on above: Performed By: #### B MP, CDP #### [address] [address] Log Buyer: Alexey Green MD RBC morphology finding Nom (Bld) ANISOCYTOSIS PRESENT Normal [facility] Comment on above: Result Comment: MACR OCYTOSIS PRESENT Performed By: #### B MP, CDP #### [address] [address] Log Buyer: Alexey Green MD WBC (Bld) [#/Vol] 10.6 10*3/uL Normal 3.5-11.3 [facility] Comment on above: Performed By: #### B BASIL, CDP #### [address] [address] Log Buyer: Alexey Green MD ROYCE Screenon 07-28-2023 ROYCE Screen Negative Normal NEG [facility] Comment on above: Performed By: #### U RNA, URTP, URCRE, UEOS #### [address] [address] Log Buyer: Alexey Green MD Anti-dsDNA 1.1 IU/mL Normal <10.0 [facility] Comment on above: Result Comment: Reference Range: <10.0 Negative 10.0-15.0 Equivocal >15.0 Positive Performed By: #### U RNA, URTP, URCRE, UEOS #### [address] [address] Log Buyer: Alexey Green MD BROOK Screen 0.1 U/mL Normal <0.7 [facility] Comment on above: Result Comment: Reference Range: <0.7 Negative 0.7-1.0 Equivocal >1.0 Positive BROOK Screen includes U1RNP,RNP70,Sm,Ro(SS-A),La(SS-B),CENP,Scl-70,Elva-1 Performed By: #### U RNA, URTP, URCRE, UEOS #### [address] [address] Log Buyer: Alexey Green MD ROYCE Screen Negative Normal NEG [facility] Comment on above: Performed By: #### U A, VIKTOR #### [address] [address] Log Buyer: Alexey Green MD Anti-dsDNA 1.1 IU/mL Normal <10.0 [facility] Comment on above: Result Comment: Reference Range: <10.0 Negative 10.0-15.0 Equivocal >15.0 Positive Performed By: #### U VIKTOR Justice #### [address] [address] Log Buyer: Alexey Green MD BROOK Screen 0.1 U/mL Normal <0.7 [facility] Comment on above: Result Comment: Reference Range: <0.7 Negative 0.7-1.0 Equivocal >1.0 Positive BROOK Screen includes U1RNP,RNP70,Sm,Ro(SS-A),La(SS-B),CENP,Scl-70,Elva-1 Performed By: #### U VIKTOR Justice #### [address] [address] Log Buyer: Alexey Green MD Basic Metabolic Profon 07-27 Anion gap [Moles/Vol] 9 mmol/L Normal 9-16 [facility] Comment on above: Performed By: #### B MPX #### [address] [address] Log Buyer: Alexey Green MD Calcium [Mass/Vol] 7.8 mg/dL Low 8.6-10.4 [facility] Comment on above: Performed By: #### B MPX #### [address] [address] Log Buyer: Alexey Green MD Chloride [Moles/Vol] 110 mmol/L High 98-107 [facility] Comment on above: Performed By: #### B MPX #### [facility] [place] [address] Log Buyer: Alexey Green MD CO2 [Moles/Vol] 18 mmol/L Low 20-31 [facility] Comment on above: Performed By: #### B MPX #### [facility] [address] [place] [address] Log Buyer: Alexey Green MD Creatinine [Mass/Vol] 2.5 mg/dL High 0.50-0.90 [facility] Comment on above: Performed By: #### B MPX #### [address] [address] Log Buyer: Alexey Green MD GFR/1.73 sq M.predicted among non-blacks MDRD (S/P/Bld) [Vol rate/Area] 18 mL/min/{1.73_m2} Low >60 [facility] Comment on above: Result Comment: These results [...] secretion. Performed By: #### B MPX #### [facility] [address] [place] [address] Log Buyer: Alexey Green MD Glucose [Mass/Vol] 143 mg/dL High 74-99 [facility] Comment on above: Performed By: #### B MPX #### [facility] [place] [address] Log Buyer: Alexey Green MD Potassium [Moles/Vol] 4.4 mmol/L Normal 3.7-5.3 [facility] Comment on above: Performed By: #### B MPX #### [address] [address] Log Buyer: Alexey Green MD Sodium [Moles/Vol] 137 mmol/L Normal 136-145 [facility] Comment on above: Performed By: #### B MPX #### [address] [address] Log Buyer: Alexey Green MD Urea nitrogen [Mass/Vol] 44 mg/dL High 8-23 [facility] Comment on above: Performed By: #### B MPX #### [address] [address] Log Buyer: Alexey Green MD Anion gap [Moles/Vol] 9 mmol/L Normal 9-16 [facility] Comment on above: Performed By: #### B MP, CDP #### [address] [address] Log Buyer: Alexey Green MD Calcium [Mass/Vol] 7.8 mg/dL Low 8.6-10.4 [facility] Comment on above: Performed By: #### B MP, CDP #### [address] [address] Log Buyer: Alexey Green MD Chloride [Moles/Vol] 110 mmol/L High 98-107 [facility] Comment on above: Performed By: #### B MP, CDP #### [address] [address] Log Buyer: Alexey Green MD CO2 [Moles/Vol] 18 mmol/L Low 20-31 [facility] Comment on above: Performed By: #### B MP, CDP #### [address] [address] Log Buyer: Alexey Green MD Creatinine [Mass/Vol] 2.5 mg/dL High 0.50-0.90 [facility] Comment on above: Performed By: #### B BASIL, CDP #### [address] [address] Log Buyer: Alexey Green MD GFR/1.73 sq M.predicted among non-blacks MDRD (S/P/Bld) [Vol rate/Area] 18 mL/min/{1.73_m2} Low >60 [facility] Comment on above: Result Comment: These results [...] renal tubular secretion. Performed By: #### B BASIL, CDP #### [facility] [address] [place] [address] Log Buyer: Alexey Green MD Glucose [Mass/Vol] 143 mg/dL High 74-99 [facility] Comment on above: Performed By: #### B BASIL, CDP #### [facility] [address] [place] [address] Log Buyer: Alexey Green MD Potassium [Moles/Vol] 4.4 mmol/L Normal 3.7-5.3 [facility] Comment on above: Performed By: #### B BASIL, CDP #### [facility] [address] [place] [address] Log Buyer: Alexey Green MD Sodium [Moles/Vol] 137 mmol/L Normal 136-145 [facility] Comment on above: Performed By: #### B BASIL, CDP #### [facility] [address] [place] [address] Log Buyer: Alexey Green MD Urea nitrogen [Mass/Vol] 44 mg/dL High 8-23 [facility] Comment on above: Performed By: #### B MP, CDP #### [address] [address] Log Buyer: Alexey Green MD CBC with Diffon 07-28-2023 Abs. Basophil 0.03 k/uL Normal 0.00-0.20 [facility] Comment on above: Performed By: #### U RNA, URTP, URCRE, UEOS #### [place] [address] Log Buyer: Alexey Green MD Abs.Imm.Granulocyte 0.06 k/uL Normal 0.00-0.30 [facility] Comment on above: Performed By: #### U RNA, URTP, URCRE, UEOS #### [place] [address] Log Buyer: Alexey Green MD Abs.Neutrophil (Seg) 5.08 k/uL Normal 1.50-8.10 [facility] Comment on above: Performed By: #### U RNA, URTP, URCRE, UEOS #### [place] [address] Log Buyer: Alexey Green MD Basophils/100 WBC (Bld) 0 % Normal 0-2 [facility] Comment on above: Performed By: #### U RNA, URTP, URCRE, UEOS #### [address] [address] Log Buyer: Alexey Green MD Eosinophils (Bld) [#/Vol] 0.65 10*3/uL High 0.00-0.44 [facility] Comment on above: Performed By: #### U RNA, URTP, URCRE, UEOS #### [address] [place] [address] Log Buyer: Alexey Green MD Eosinophils/100 WBC (Bld) 7 % High 1-4 [facility] Comment on above: Performed By: #### U RNA, URTP, URCRE, UEOS #### [address] [address] Log Buyer: Alexey Green MD Erythrocyte distribution width (RBC) [Ratio] 18.1 % High 11.8-14.4 [facility] Comment on above: Performed By: #### U RNA, URTP, URCRE, UEOS #### [place] [address] Log Buyer: Alexey Green MD Hematocrit (Bld) [Volume fraction] 25.1 % Low 36.3-47.1 [facility] Comment on above: Performed By: #### U RNA, URTP, URCRE, UEOS #### [place] [address] Log Buyer: Alexey Green MD Hemoglobin (Bld) [Mass/Vol] 7.2 g/dL Low 11.9-15.1 [facility] Comment on above: Performed By: #### U RNA, URTP, URCRE, UEOS #### [place] [address] Log Buyer: Alexey Green MD Immature granulocytes/100 WBC (Bld) 1 % High 0 [facility] Comment on above: Performed By: #### U RNA, URTP, URCRE, UEOS #### [address] [address] Log Buyer: Alexey Green MD Lymphocytes (Bld) [#/Vol] 2.69 10*3/uL Normal 1.10-3.70 [facility] Comment on above: Performed By: #### U RNA, URTP, URCRE, UEOS #### [address] [address] Log Buyer: Alexey Green MD Lymphocytes/100 WBC (Bld) 28 % Normal 24-43 [facility] Comment on above: Performed By: #### U RNA, URTP, URCRE, UEOS #### [address] [address] Log Buyer: Alexey Green MD MCH (RBC) [Entitic mass] 29.3 pg Normal 25.2-33.5 [facility] Comment on above: Performed By: #### U RNA, URTP, URCRE, UEOS #### [address] [address] Log Buyer: Alexey Green MD MCHC (RBC) [Mass/Vol] 28.7 g/dL Normal 28.4-34.8 [facility] Comment on above: Performed By: #### U RNA, URTP, URCRE, UEOS #### [address] [address] Log Buyer: Alexey Green MD MCV (RBC) [Entitic vol] 102.0 fL Normal 82.6-102.9 [facility] Comment on above: Performed By: #### U RNA, URTP, URCRE, UEOS #### [address] [address] Log Buyer: Alexey Green MD Monocytes (Bld) [#/Vol] 1.10 10*3/uL Normal 0.10-1.20 [facility] Comment on above: Performed By: #### U RNA, URTP, URCRE, UEOS #### [address] [address] Log Buyer: Alexey Green MD Monocytes/100 WBC (Bld) 11 % Normal 3-12 [facility] Comment on above: Performed By: #### U RNA, URTP, URCRE, UEOS #### [address] [address] Log Buyer: Alexey Green MD Neutrophil (Seg) 53 % Normal 36-65 [facility] Comment on above: Performed By: #### U RNA, URTP, URCRE, UEOS #### [address] [address] Log Buyer: Alexey Green MD NRBC Automated 0.0 per 100 WBC Normal 0.0 [facility] Comment on above: Performed By: #### U RNA, URTP, URCRE, UEOS #### [address] [address] Log Buyer: Alexey Green MD Platelet mean volume (Bld) [Entitic vol] 11.7 fL Normal 8.1-13.5 [facility] Comment on above: Performed By: #### U RNA, URTP, URCRE, UEOS #### [address] [address] Log Buyer: Alexey Green MD Platelets (Bld) [#/Vol] 161 10*3/uL Normal 138-453 [facility] Comment on above: Performed By: #### U RNA, URTP, URCRE, UEOS #### [address] [address] Log Buyer: Alexey Green MD RBC (Bld) [#/Vol] 2.46 10*6/uL Low 3.95-5.11 [facility] Comment on above: Performed By: #### U RNA, URTP, URCRE, UEOS #### [address] [address] Log Buyer: Alexey Green MD RBC morphology finding Nom (Bld) ANISOCYTOSIS PRESENT Normal [facility] Comment on above: Performed By: #### U RNA, URTP, URCRE, UEOS #### [address] [address] Log Buyer: Alexey Green MD WBC (Bld) [#/Vol] 9.6 10*3/uL Normal 3.5-11.3 [facility] Comment on above: Performed By: #### U RNA, URTP, URCRE, UEOS #### [address] [address] Log Buyer: Alexey Green MD Abs. Basophil 0.03 k/uL Normal 0.00-0.20 [facility] Comment on above: Performed By: #### B BASIL, CDP #### [address] [address] Log Buyer: Alexey Green MD Abs.Imm.Granulocyte 0.06 k/uL Normal 0.00-0.30 [facility] Comment on above: Performed By: #### B BASIL, CDP #### [address] [address] Log Buyer: Alexey Green MD Abs.Neutrophil (Seg) 5.08 k/uL Normal 1.50-8.10 [facility] Comment on above: Performed By: #### B BASIL, CDP #### [address] [address] Log Buyer: Alexey Green MD Basophils/100 WBC (Bld) 0 % Normal 0-2 [facility] Comment on above: Performed By: #### B BASIL, CDP #### [address] [address] Log Buyer: Alexey Green MD Eosinophils (Bld) [#/Vol] 0.65 10*3/uL High 0.00-0.44 [facility] Comment on above: Performed By: #### B MP, CDP #### [facility] [address] [place] [address] Log Buyer: Alexey Green MD Eosinophils/100 WBC (Bld) 7 % High 1-4 [facility] Comment on above: Performed By: #### B MP, CDP #### [facility] [address] [place] [address] Log Buyer: Alexey Green MD Erythrocyte distribution width (RBC) [Ratio] 18.1 % High 11.8-14.4 [facility] Comment on above: Performed By: #### B MP, CDP #### [facility] [address] [place] [address] Log Buyer: Alexey Green MD Hematocrit (Bld) [Volume fraction] 25.1 % Low 36.3-47.1 [facility] Comment on above: Performed By: #### B MP, CDP #### [facility] [address] [place] [address] Log Buyer: Alexey Green MD Hemoglobin (Bld) [Mass/Vol] 7.2 g/dL Low 11.9-15.1 [facility] Comment on above: Performed By: #### B MP, CDP #### [facility] [address] [place] [address] Log Buyer: Alexey Green MD Immature granulocytes/100 WBC (Bld) 1 % High 0 [facility] Comment on above: Performed By: #### B MP, CDP #### [facility] [address] [place] [address] Log Buyer: Alexey Green MD Lymphocytes (Bld) [#/Vol] 2.69 10*3/uL Normal 1.10-3.70 [facility] Comment on above: Performed By: #### B MP, CDP #### [address] [place] [address] Log Buyer: Alexey Green MD Lymphocytes/100 WBC (Bld) 28 % Normal 24-43 [facility] Comment on above: Performed By: #### B MP, CDP #### [address] [address] Log Buyer: Alexey Green MD MCH (RBC) [Entitic mass] 29.3 pg Normal 25.2-33.5 [facility] Comment on above: Performed By: #### B MP, CDP #### [address] [address] Log Buyer: Alexey Green MD MCHC (RBC) [Mass/Vol] 28.7 g/dL Normal 28.4-34.8 [facility] Comment on above: Performed By: #### B MP, CDP #### [address] [address] Log Buyer: Alexey Green MD MCV (RBC) [Entitic vol] 102.0 fL Normal 82.6-102.9 [facility] Comment on above: Performed By: #### B MP, CDP #### [address] [address] Log Buyer: Alexey Green MD Monocytes (Bld) [#/Vol] 1.10 10*3/uL Normal 0.10-1.20 [facility] Comment on above: Performed By: #### B MP, CDP #### [address] [address] Log Buyer: Alexey Green MD Monocytes/100 WBC (Bld) 11 % Normal 3-12 [facility] Comment on above: Performed By: #### B MP, CDP #### [address] [address] Log Buyer: Alexey Green MD Neutrophil (Seg) 53 % Normal 36-65 [facility] Comment on above: Performed By: #### B MP, CDP #### [address] [address] Log Buyer: Alexey Green MD NRBC Automated 0.0 per 100 WBC Normal 0.0 [facility] Comment on above: Performed By: #### B MP, CDP #### [address] [address] Log Buyer: Alexey Green MD Platelet mean volume (Bld) [Entitic vol] 11.7 fL Normal 8.1-13.5 [facility] Comment on above: Performed By: #### B MP, CDP #### [address] [address] Log Buyer: Alexey Green MD Platelets (Bld) [#/Vol] 161 10*3/uL Normal 138-453 [facility] Comment on above: Performed By: #### B MP, CDP #### [address] [address] Log Buyer: Alexey Green MD RBC (Bld) [#/Vol] 2.46 10*6/uL Low 3.95-5.11 [facility] Comment on above: Performed By: #### B MP, CDP #### [address] [address] Log Buyer: Alexey Green MD RBC morphology finding Nom (Bld) ANISOCYTOSIS PRESENT Normal [facility] Comment on above: Performed By: #### B MP, CDP #### [address] [address] Log Buyer: Alexey Green MD WBC (Bld) [#/Vol] 9.6 10*3/uL Normal 3.5-11.3 [facility] Comment on above: Performed By: #### B MP, CDP #### [facility] [address] [place] [address] Log Buyer: Alexey Green MD Basic Metabolic Profon 07-26 Anion gap [Moles/Vol] 9 mmol/L Normal 9-16 [facility] Comment on above: Performed By: #### U RNA, URTP, URCRE, UEOS #### [facility] [address] [place] [address] Log Buyer: Alexey Green MD Calcium [Mass/Vol] 7.5 mg/dL Low 8.6-10.4 [facility] Comment on above: Performed By: #### U RNA, URTP, URCRE, UEOS #### [facility] [address] [place] [address] Log Buyer: Alexey Green MD Chloride [Moles/Vol] 110 mmol/L High 98-107 [facility] Comment on above: Performed By: #### U RNA, URTP, URCRE, UEOS #### [facility] [address] [place] [address] Log Buyer: Alexey Green MD CO2 [Moles/Vol] 17 mmol/L Low 20-31 [facility] Comment on above: Performed By: #### U RNA, URTP, URCRE, UEOS #### [facility] [address] [place] [address] Log Buyer: Alexey Green MD Creatinine [Mass/Vol] 2.6 mg/dL High 0.50-0.90 [facility] Comment on above: Performed By: #### U RNA, URTP, URCRE, UEOS #### [facility] [address] [place] [address] Log Buyer: Alexey Green MD GFR/1.73 sq M.predicted among non-blacks MDRD (S/P/Bld) [Vol rate/Area] 17 mL/min/{1.73_m2} Low >60 [facility] Comment on above: Result Comment: These results [...] #### U RNA, URTP, URCRE, UEOS #### [address] [address] Log Buyer: Alexey Green MD Glucose [Mass/Vol] 90 mg/dL Normal 74-99 [facility] Comment on above: Performed By: #### U RNA, URTP, URCRE, UEOS #### [facility] [address] [place] [address] Log Buyer: Alexey Green MD Potassium [Moles/Vol] 4.3 mmol/L Normal 3.7-5.3 [facility] Comment on above: Performed By: #### U RNA, URTP, URCRE, UEOS #### [facility] [address] [place] [address] Log Buyer: Alexey Green MD Sodium [Moles/Vol] 136 mmol/L Normal 136-145 [facility] Comment on above: Performed By: #### U RNA, URTP, URCRE, UEOS #### [facility] [address] [place] [address] Log Buyer: Alexey Green MD Urea nitrogen [Mass/Vol] 44 mg/dL High 8-23 [facility] Comment on above: Performed By: #### U RNA, URTP, URCRE, UEOS #### [facility] [address] [place] [address] Log Buyer: Alexey Green MD Anion gap [Moles/Vol] 9 mmol/L Normal 9-16 [facility] Comment on above: Performed By: #### U A, BRIDGETO #### [facility] [place] [address] Log Buyer: Alexey Green MD Calcium [Mass/Vol] 7.5 mg/dL Low 8.6-10.4 [facility] Comment on above: Performed By: #### U A, BRIDGETO #### [facility] [address] [place] [address] Log Buyer: Alexey Green MD Chloride [Moles/Vol] 110 mmol/L High 98-107 [facility] Comment on above: Performed By: #### U A, BRIDGETO #### [facility] [address] [place] [address] Log Buyer: Alexey Green MD CO2 [Moles/Vol] 17 mmol/L Low 20-31 [facility] Comment on above: Performed By: #### U ABRIDGETO #### [facility] [address] [place] [address] Log Buyer: Alexey Green MD Creatinine [Mass/Vol] 2.6 mg/dL High 0.50-0.90 [facility] Comment on above: Performed By: #### U A, BRIDGETO #### [facility] [address] [place] [address] Log Buyer: Alexey Green MD GFR/1.73 sq M.predicted among non-blacks MDRD (S/P/Bld) [Vol rate/Area] 17 mL/min/{1.73_m2} Low >60 [facility] Comment on above: Result Comment: These results [...] affects renal tubular secretion. Performed By: #### VIKTOR Espinoza #### [facility] [address] [place] [address] Log Buyer: Alexey Green MD Glucose [Mass/Vol] 90 mg/dL Normal 74-99 [facility] Comment on above: Performed By: #### U VIKTOR Justice #### [facility] [address] [place] [address] Log Buyer: Alexey Green MD Potassium [Moles/Vol] 4.3 mmol/L Normal 3.7-5.3 [facility] Comment on above: Performed By: #### VIKTOR Espinoza #### [address] [address] Log Buyer: Alexey Green MD Sodium [Moles/Vol] 136 mmol/L Normal 136-145 [facility] Comment on above: Performed By: #### U VIKTOR Justice #### [facility] [address] [place] [address] Log Buyer: Alexey Green MD Urea nitrogen [Mass/Vol] 44 mg/dL High 8-23 [facility] Comment on above: Performed By: #### U VIKTOR Justice #### [facility] [address] [place] [address] Log Buyer: Alexey Green MD CBC with Diffon 07-27-2023 Abs. Basophil 0.00 k/uL Normal 0.00-0.20 [facility] Comment on above: Performed By: #### U RNA, URTP, URCRE, UEOS #### [facility] [address] [place] [address] Log Buyer: Alexey Green MD Abs.Imm.Granulocyte 0.10 k/uL Normal 0.00-0.30 [facility] Comment on above: Performed By: #### U RNA, URTP, URCRE, UEOS #### [address] [address] Log Buyer: Alexey Green MD Abs.Neutrophil (Seg) 5.10 k/uL Normal 1.50-8.10 [facility] Comment on above: Performed By: #### U RNA, URTP, URCRE, UEOS #### [place] [address] Log Buyer: Alexey Green MD Basophils/100 WBC (Bld) 0 % Normal 0-2 [facility] Comment on above: Performed By: #### U RNA, URTP, URCRE, UEOS #### [place] [address] Log Buyer: Alexey Green MD Eosinophils (Bld) [#/Vol] 0.70 10*3/uL High 0.00-0.44 [facility] Comment on above: Performed By: #### U RNA, URTP, URCRE, UEOS #### [address] [address] Log Buyer: Alexey Green MD Eosinophils/100 WBC (Bld) 7 % High 1-4 [facility] Comment on above: Performed By: #### U RNA, URTP, URCRE, UEOS #### [address] [address] Log Buyer: Alexey Green MD Immature granulocytes/100 WBC (Bld) 1 % High 0 [facility] Comment on above: Performed By: #### U RNA, URTP, URCRE, UEOS #### [place] [address] Log Buyer: Alexey Green MD Lymphocytes (Bld) [#/Vol] 3.20 10*3/uL Normal 1.10-3.70 [facility] Comment on above: Performed By: #### U RNA, URTP, URCRE, UEOS #### [address] [address] Log Buyer: Alexey Green MD Lymphocytes/100 WBC (Bld) 32 % Normal 24-43 [facility] Comment on above: Performed By: #### U RNA, URTP, URCRE, UEOS #### [address] [address] Log Buyer: Alexey Green MD Monocytes (Bld) [#/Vol] 0.90 10*3/uL Normal 0.10-1.20 [facility] Comment on above: Performed By: #### U RNA, URTP, URCRE, UEOS #### [address] [address] Log Buyer: Alexey Green MD Monocytes/100 WBC (Bld) 9 % Normal 3-12 [facility] Comment on above: Performed By: #### U RNA, URTP, URCRE, UEOS #### [address] [address] Log Buyer: Alexey Green MD Morphology Tito (Bld) [Interp] ANISOCYTOSIS PRESENT Normal [facility] Comment on above: Result Comment: MACR OCYTOSIS PRESENT Performed By: #### U RNA, URTP, URCRE, UEOS #### [address] [address] Log Buyer: Alexey Green MD Neutrophil (Seg) 51 % Normal 36-65 [facility] Comment on above: Performed By: #### U RNA, URTP, URCRE, UEOS #### [address] [address] Log Buyer: Alexey Green MD Erythrocyte distribution width (RBC) [Ratio] 18.8 % High 11.8-14.4 [facility] Comment on above: Performed By: #### U RNA, URTP, URCRE, UEOS #### [address] [address] Log Buyer: Alexey Green MD Hematocrit (Bld) [Volume fraction] 28.5 % Low 36.3-47.1 [facility] Comment on above: Performed By: #### U RNA, URTP, URCRE, UEOS #### [address] [address] Log Buyer: Alexey Green MD Hemoglobin (Bld) [Mass/Vol] 7.7 g/dL Low 11.9-15.1 [facility] Comment on above: Performed By: #### U RNA, URTP, URCRE, UEOS #### [address] [address] Log Buyer: Alexey Green MD MCH (RBC) [Entitic mass] 29.5 pg Normal 25.2-33.5 [facility] Comment on above: Performed By: #### U RNA, URTP, URCRE, UEOS #### [address] [address] Log Buyer: Alexey Green MD MCHC (RBC) [Mass/Vol] 27.0 g/dL Low 28.4-34.8 [facility] Comment on above: Performed By: #### U RNA, URTP, URCRE, UEOS #### [address] [address] Log Buyer: Alexey Green MD MCV (RBC) [Entitic vol] 109.2 fL High 82.6-102.9 [facility] Comment on above: Performed By: #### U RNA, URTP, URCRE, UEOS #### [address] [address] Log Buyer: Alexey Green MD NRBC Automated 0.2 per 100 WBC High 0.0 [facility] Comment on above: Performed By: #### U RNA, URTP, URCRE, UEOS #### [address] [address] Log Buyer: Alexey Green MD Platelet mean volume (Bld) [Entitic vol] 11.4 fL Normal 8.1-13.5 [facility] Comment on above: Performed By: #### U RNA, URTP, URCRE, UEOS #### [address] [address] Log Buyer: Alexey Green MD Platelets (Bld) [#/Vol] 135 10*3/uL Low 138-453 [facility] Comment on above: Performed By: #### U RNA, URTP, URCRE, UEOS #### [place] [address] Log Buyer: Alexey Green MD RBC (Bld) [#/Vol] 2.61 10*6/uL Low 3.95-5.11 [facility] Comment on above: Performed By: #### U RNA, URTP, URCRE, UEOS #### [address] [address] Log Buyer: Alexey Green MD WBC (Bld) [#/Vol] 10.0 10*3/uL Normal 3.5-11.3 [facility] Comment on above: Performed By: #### U RNA, URTP, URCRE, UEOS #### [address] [address] Log Buyer: Alexey Green MD Abs. Basophil 0.00 k/uL Normal 0.00-0.20 [facility] Comment on above: Performed By: #### B BASIL, CDP #### [facility] [address] [place] [address] Log Buyer: Alexey Green MD Abs.Imm.Granulocyte 0.10 k/uL Normal 0.00-0.30 [facility] Comment on above: Performed By: #### B BASIL, CDP #### [facility] [address] [place] [address] Log Buyer: Alexey Green MD Abs.Neutrophil (Seg) 5.10 k/uL Normal 1.50-8.10 [facility] Comment on above: Performed By: #### B BASIL, CDP #### [facility] [address] [place] [address] Log Buyer: Alexey Green MD Basophils/100 WBC (Bld) 0 % Normal 0-2 [facility] Comment on above: Performed By: #### B BASIL, CDP #### [place] [address] Log Buyer: Alexey Green MD Eosinophils (Bld) [#/Vol] 0.70 10*3/uL High 0.00-0.44 [facility] Comment on above: Performed By: #### B BASIL, CDP #### [facility] [address] [place] [address] Log Buyer: Alexey Green MD Eosinophils/100 WBC (Bld) 7 % High 1-4 [facility] Comment on above: Performed By: #### B BASIL, CDP #### [facility] [address] [place] [address] Log Buyer: Alexey Green MD Immature granulocytes/100 WBC (Bld) 1 % High 0 [facility] Comment on above: Performed By: #### B BASIL, CDP #### [address] [place] [address] Log Buyer: Alexey Green MD Lymphocytes (Bld) [#/Vol] 3.20 10*3/uL Normal 1.10-3.70 [facility] Comment on above: Performed By: #### B MP, CDP #### [address] [address] Log Buyer: Alexey Green MD Lymphocytes/100 WBC (Bld) 32 % Normal 24-43 [facility] Comment on above: Performed By: #### B MP, CDP #### [address] [address] Log Buyer: Alexey Green MD Monocytes (Bld) [#/Vol] 0.90 10*3/uL Normal 0.10-1.20 [facility] Comment on above: Performed By: #### B MP, CDP #### [address] [address] Log Buyer: Alexey Green MD Monocytes/100 WBC (Bld) 9 % Normal 3-12 [facility] Comment on above: Performed By: #### B MP, CDP #### [address] [address] Log Buyer: Alexey Green MD Morphology Tito (Bld) [Interp] ANISOCYTOSIS PRESENT Normal [facility] Comment on above: Result Comment: MACR OCYTOSIS PRESENT Performed By: #### B MP, CDP #### [address] [address] Log Buyer: Alexey Green MD Neutrophil (Seg) 51 % Normal 36-65 [facility] Comment on above: Performed By: #### B MP, CDP #### [address] [address] Log Buyer: Alexey Green MD Erythrocyte distribution width (RBC) [Ratio] 18.8 % High 11.8-14.4 [facility] Comment on above: Performed By: #### B BASIL, CDP #### [address] [address] Log Buyer: Alexey Green MD Hematocrit (Bld) [Volume fraction] 28.5 % Low 36.3-47.1 [facility] Comment on above: Performed By: #### B BASIL, CDP #### [address] [address] Log Buyer: Alexey Green MD Hemoglobin (Bld) [Mass/Vol] 7.7 g/dL Low 11.9-15.1 [facility] Comment on above: Performed By: #### B BASIL, CDP #### [address] [address] Log Buyer: Alexey Green MD MCH (RBC) [Entitic mass] 29.5 pg Normal 25.2-33.5 [facility] Comment on above: Performed By: #### B BASIL, CDP #### [address] [address] Log Buyer: Alexey Green MD MCHC (RBC) [Mass/Vol] 27.0 g/dL Low 28.4-34.8 [facility] Comment on above: Performed By: #### B BASIL, CDP #### [address] [address] Log Buyer: Alexey Green MD MCV (RBC) [Entitic vol] 109.2 fL High 82.6-102.9 [facility] Comment on above: Performed By: #### B MP, CDP #### [facility] [address] [place] [address] Log Buyer: Alexey Green MD NRBC Automated 0.2 per 100 WBC High 0.0 [facility] Comment on above: Performed By: #### B MP, CDP #### [address] [address] Log Buyer: Alexey Green MD Platelet mean volume (Bld) [Entitic vol] 11.4 fL Normal 8.1-13.5 [facility] Comment on above: Performed By: #### B MP, CDP #### [address] [address] Log Buyer: Alexey Green MD Platelets (Bld) [#/Vol] 135 10*3/uL Low 138-453 [facility] Comment on above: Performed By: #### B MP, CDP #### [address] [address] Log Buyer: Alexey Green MD RBC (Bld) [#/Vol] 2.61 10*6/uL Low 3.95-5.11 [facility] Comment on above: Performed By: #### B MP, CDP #### [address] [address] Log Buyer: Alexey Green MD WBC (Bld) [#/Vol] 10.0 10*3/uL Normal 3.5-11.3 [facility] Comment on above: Performed By: #### B MP, CDP #### [address] [address] Log Buyer: Alexey Green MD Phosphorus, Inorg.on 024 Phosphorus, Inorg. 4.4 mg/dL Normal 2.5-4.5 [facility] Comment on above: Performed By: #### U RNA, URTP, URCRE, UEOS #### [facility] [address] [place] [address] Log Buyer: Alexey Green MD Phosphorus, Inorg. 4.4 mg/dL Normal 2.5-4.5 [facility] Comment on above: Performed By: #### U A, UMICAO #### [address] [address] Log Buyer: Alexey Green MD Prot. Electroph, Blon 2023 Pathologist Review: ELECTRONICALLY ANNA CARRILLO M.D. Normal [facility] Comment on above: Performed By: #### U RNA, URTP, URCRE, UEOS #### [address] [address] Log Buyer: Alexey Green MD Albumin [Mass/Vol] 3.1 g/dL Low 3.2-5.2 [facility] Comment on above: Performed By: #### U RNA, URTP, URCRE, UEOS #### [address] [address] Log Buyer: Alexey Green MD Albumin, % 55 % Normal 45-65 [facility] Comment on above: Performed By: #### U RNA, URTP, URCRE, UEOS #### [address] [address] Log Buyer: Alexey Green MD Xdhym-6-qjnvpwsua 0.3 g/dL Normal 0.1-0.4 [facility] Comment on above: Performed By: #### U RNA, URTP, URCRE, UEOS #### [address] [address] Log Buyer: Alexey Green MD Yawql-1-sqwcidxjx,% 4 % Normal 3-6 [facility] Comment on above: Performed By: #### U RNA, URTP, URCRE, UEOS #### [address] [address] Log Buyer: Alexey Green MD Uslgk-9-yfjjgdeiw 0.8 g/dL Normal 0.5-0.9 [facility] Comment on above: Performed By: #### U RNA, URTP, URCRE, UEOS #### [address] [address] Log Buyer: Alexey Green MD Glryf-9-bpwppmlki,% 15 % High 6-13 [facility] Comment on above: Performed By: #### U RNA, URTP, URCRE, UEOS #### [address] [address] Log Buyer: Alexey Green MD Beta-globulins 0.8 g/dL Normal 0.5-1.1 [facility] Comment on above: Performed By: #### U RNA, URTP, URCRE, UEOS #### [address] [address] Log Buyer: Alexey Green MD Beta-globulins,% 14 % Normal 11-19 [facility] Comment on above: Performed By: #### U RNA, URTP, URCRE, UEOS #### [address] [address] Log Buyer: Alexey Green MD Gamma-globulins 0.7 g/dL Normal 0.5-1.5 [facility] Comment on above: Performed By: #### U RNA, URTP, URCRE, UEOS #### [address] [address] Log Buyer: Alexey Green MD Gamma-globulins,% 13 % Normal 9-20 [facility] Comment on above: Performed By: #### U RNA, URTP, URCRE, UEOS #### [address] [address] Log Buyer: Alexey Green MD Prot. Elect-Interp Albumin is decreased . May be observed with hepatic diseases, proteinuria, Normal [facility] Comment on above: Result Comment: maln utrition, acute phase response, and hemodilution. Performed By: #### U RNA, URTP, URCRE, UEOS #### [address] [address] Log Buyer: Alexey Green MD Total Prot. Sum 5.7 g/dL Low 6.3-8.2 [facility] Comment on above: Performed By: #### U RNA, URTP, URCRE, UEOS #### [address] [address] Log Buyer: Alexey Green MD Total Prot. Sum,% 101 % Normal 98-102 [facility] Comment on above: Performed By: #### U RNA, URTP, URCRE, UEOS #### [address] [address] Log Buyer: Alexey Green MD Pathologist Review: ELECTRONICALLY ANNA CARRILLO M.D. Normal [facility] Comment on above: Performed By: #### U A, UMICAO #### [address] [address] Log Buyer: Alexey Green MD Albumin [Mass/Vol] 3.1 g/dL Low 3.2-5.2 [facility] Comment on above: Performed By: #### U A, UMICAO #### [address] [address] Log Buyer: Alexey Green MD Albumin, % 55 % Normal 45-65 [facility] Comment on above: Performed By: #### U A, UMICAO #### [address] [address] Log Buyer: Alexey Green MD Lhaxa-6-tnlmprvdr 0.3 g/dL Normal 0.1-0.4 [facility] Comment on above: Performed By: #### U AVIKTOR #### [facility] [address] [place] [address] Log Buyer: Alexey Green MD Aypsl-5-xenduwvxu,% 4 % Normal 3-6 [facility] Comment on above: Performed By: #### U AVIKTOR #### [facility] [address] [place] [address] Log Buyer: Alexey Green MD Yfjow-9-vumjbbgra 0.8 g/dL Normal 0.5-0.9 [facility] Comment on above: Performed By: #### U VIKTOR Justice #### [facility] [address] [place] [address] Log Buyer: Alexey Green MD Xsoyu-1-kfstfwdgs,% 15 % High 6-13 [facility] Comment on above: Performed By: #### U AVIKTOR #### [facility] [address] [place] [address] Log Buyer: Alexey Green MD Beta-globulins 0.8 g/dL Normal 0.5-1.1 [facility] Comment on above: Performed By: #### U ABRIDGETO #### [facility] [address] [place] [address] Log Buyer: Alexey Green MD Beta-globulins,% 14 % Normal 11-19 [facility] Comment on above: Performed By: #### U AJACQUIEICAO #### [facility] [address] [place] [address] Log Buyer: Alexey Green MD Gamma-globulins 0.7 g/dL Normal 0.5-1.5 [facility] Comment on above: Performed By: #### U A, UMICAO #### [facility] [address] [place] [address] Log Buyer: Alexey Green MD Gamma-globulins,% 13 % Normal 9-20 [facility] Comment on above: Performed By: #### U A, UMICAO #### [facility] [place] [address] Log Buyer: Alexey Green MD Prot. Elect-Interp Albumin is decreased . May be observed with hepatic diseases, proteinuria, Normal [facility] Comment on above: Result Comment: maln utrition, acute phase response, and hemodilution. Performed By: #### U A, UMICAO #### [facility] [address] [place] [address] Log Buyer: Alexey Green MD Total Prot. Sum 5.7 g/dL Low 6.3-8.2 [facility] Comment on above: Performed By: #### U A, UMICAO #### [facility] [address] [place] [address] Log Buyer: Alexey Green MD Total Prot. Sum,% 101 % Normal 98-102 [facility] Comment on above: Performed By: #### U A, UMICAO #### [facility] [address] [place] [address] Log Buyer: Alexey Green MD US RENAL COMPLETEon 07-27-19 24 US RENAL COMPLETE EXAMINATION: RETROPERITONEAL ULTRASOUND OF [...] Edmundo Morton MD 07/26/23 Final result Normal [facility] Basic Metabolic Profon 07-25 Anion gap [Moles/Vol] 9 mmol/L Normal 9-16 [facility] Comment on above: Performed By: #### U RNA, URTP, URCRE, UEOS #### [address] [address] Log Buyer: Alexey Green MD Calcium [Mass/Vol] 7.7 mg/dL Low 8.6-10.4 [facility] Comment on above: Performed By: #### U RNA, URTP, URCRE, UEOS #### [address] [address] Log Buyer: Alexey Green MD Chloride [Moles/Vol] 108 mmol/L High 98-107 [facility] Comment on above: Performed By: #### U RNA, URTP, URCRE, UEOS #### [address] [address] Log Buyer: Alexey Green MD CO2 [Moles/Vol] 20 mmol/L Normal 20-31 [facility] Comment on above: Performed By: #### U RNA, URTP, URCRE, UEOS #### [facility] [address] [place] [address] Log Buyer: Alexey Green MD Creatinine [Mass/Vol] 2.7 mg/dL High 0.50-0.90 [facility] Comment on above: Performed By: #### U RNA, URTP, URCRE, UEOS #### [facility] [address] [place] [address] Log Buyer: Alexey Green MD GFR/1.73 sq M.predicted among non-blacks MDRD (S/P/Bld) [Vol rate/Area] 17 mL/min/{1.73_m2} Low >60 [facility] Comment on above: Result Comment: These results [...] U RNA, URTP, URCRE, UEOS #### [facility] [address] [place] [address] Log Buyer: Alexey Green MD Glucose [Mass/Vol] 132 mg/dL High 74-99 [facility] Comment on above: Performed By: #### U RNA, URTP, URCRE, UEOS #### [facility] [address] [place] [address] Log Buyer: Alexey Green MD Potassium [Moles/Vol] 4.9 mmol/L Normal 3.7-5.3 [facility] Comment on above: Performed By: #### U RNA, URTP, URCRE, UEOS #### [facility] [address] [place] [address] Log Buyer: Alexey Green MD Sodium [Moles/Vol] 137 mmol/L Normal 136-145 [facility] Comment on above: Performed By: #### U RNA, URTP, URCRE, UEOS #### [facility] [address] [place] [address] Log Buyer: Alexey Green MD Urea nitrogen [Mass/Vol] 43 mg/dL High 8-23 [facility] Comment on above: Performed By: #### U RNA, URTP, URCRE, UEOS #### [facility] [place] [address] Log Buyer: Alexey Green MD Anion gap [Moles/Vol] 9 mmol/L Normal 9-16 [facility] Comment on above: Performed By: #### U A, UMICAO #### [facility] [address] [place] [address] Log Buyer: Alexey Green MD Calcium [Mass/Vol] 7.7 mg/dL Low 8.6-10.4 [facility] Comment on above: Performed By: #### U A, UMICAO #### [facility] [address] [place] [address] Log Buyer: Alexey Green MD Chloride [Moles/Vol] 108 mmol/L High 98-107 [facility] Comment on above: Performed By: #### U A, UMICAO #### [facility] [address] [place] [address] Log Buyer: Alexey Green MD CO2 [Moles/Vol] 20 mmol/L Normal 20-31 [facility] Comment on above: Performed By: #### U A, UMICAO #### [facility] [address] [place] [address] Log Buyer: Alexey Green MD Creatinine [Mass/Vol] 2.7 mg/dL High 0.50-0.90 [facility] Comment on above: Performed By: #### U A, UMICAO #### [facility] [address] [place] [address] Log Buyer: Alexey Green MD GFR/1.73 sq M.predicted among non-blacks MDRD (S/P/Bld) [Vol rate/Area] 17 mL/min/{1.73_m2} Low >60 [facility] Comment on above: Result Comment: These results [...] renal tubular secretion. Performed By: #### U A, UMICAO #### [facility] [address] [place] [address] Log Buyer: Alexey Green MD Glucose [Mass/Vol] 132 mg/dL High 74-99 [facility] Comment on above: Performed By: #### U A, UMICAO #### [facility] [address] [place] [address] Log Buyer: Alexey Green MD Potassium [Moles/Vol] 4.9 mmol/L Normal 3.7-5.3 [facility] Comment on above: Performed By: #### U A, UMICAO #### [facility] [address] [place] [address] Log Buyer: Alexey Green MD Sodium [Moles/Vol] 137 mmol/L Normal 136-145 [facility] Comment on above: Performed By: #### U A, UMICAO #### [facility] [address] [place] [address] Log Buyer: Alexey Green MD Urea nitrogen [Mass/Vol] 43 mg/dL High 8-23 [facility] Comment on above: Performed By: #### U A, UMICAO #### [facility] [address] [place] [address] Log Buyer: Alexey Green MD C3on 07-26-2023 C3 120 mg/dL Normal 90-180 [facility] Comment on above: Performed By: #### U RNA, URTP, URCRE, UEOS #### [facility] [address] [place] [address] Log Buyer: Alexey Green MD C3 120 mg/dL Normal 90-180 [facility] Comment on above: Performed By: #### VIKTOR Espinoza #### [address] [address] Log Buyer: Alexey Green MD C4on 07-26-2023 C4 27 mg/dL Normal 10-40 [facility] Comment on above: Performed By: #### U RNA, URTP, URCRE, UEOS #### [address] [address] Log Buyer: Alexey Green MD C4 27 mg/dL Normal 10-40 [facility] Comment on above: Performed By: #### VIKTOR Espinoza #### [address] [address] Log Buyer: Alexey Green MD CBC with Diffon 07-26-2023 Abs. Basophil 0.04 k/uL Normal 0.00-0.20 [facility] Comment on above: Performed By: #### U RNA, URTP, URCRE, UEOS #### [address] [address] Log Buyer: Alexey Green MD Abs.Imm.Granulocyte 0.07 k/uL Normal 0.00-0.30 [facility] Comment on above: Performed By: #### U RNA, URTP, URCRE, UEOS #### [facility] [address] [place] [address] Log Buyer: Alexey Green MD Abs.Neutrophil (Seg) 7.93 k/uL Normal 1.50-8.10 [facility] Comment on above: Performed By: #### U RNA, URTP, URCRE, UEOS #### [facility] [address] [place] [address] Log Buyer: Alexey Green MD Basophils/100 WBC (Bld) 0 % Normal 0-2 [facility] Comment on above: Performed By: #### U RNA, URTP, URCRE, UEOS #### [address] [address] Log Buyer: Alexey Green MD Eosinophils (Bld) [#/Vol] 0.79 10*3/uL High 0.00-0.44 [facility] Comment on above: Performed By: #### U RNA, URTP, URCRE, UEOS #### [place] [address] Log Buyer: Alexey Green MD Eosinophils/100 WBC (Bld) 6 % High 1-4 [facility] Comment on above: Performed By: #### U RNA, URTP, URCRE, UEOS #### [place] [address] Log Buyer: Alexey Green MD Erythrocyte distribution width (RBC) [Ratio] 19.9 % High 11.8-14.4 [facility] Comment on above: Performed By: #### U RNA, URTP, URCRE, UEOS #### [place] [address] Log Buyer: Alexey Green MD Hematocrit (Bld) [Volume fraction] 29.3 % Low 36.3-47.1 [facility] Comment on above: Performed By: #### U RNA, URTP, URCRE, UEOS #### [place] [address] Log Buyer: Alexey Green MD Hemoglobin (Bld) [Mass/Vol] 8.8 g/dL Low 11.9-15.1 [facility] Comment on above: Performed By: #### U RNA, URTP, URCRE, UEOS #### [place] [address] Log Buyer: Alexey Green MD Immature granulocytes/100 WBC (Bld) 1 % High 0 [facility] Comment on above: Performed By: #### U RNA, URTP, URCRE, UEOS #### [address] [address] Log Buyer: Alexey Green MD Lymphocytes (Bld) [#/Vol] 3.17 10*3/uL Normal 1.10-3.70 [facility] Comment on above: Performed By: #### U RNA, URTP, URCRE, UEOS #### [address] [address] Log Buyer: Alexey Green MD Lymphocytes/100 WBC (Bld) 24 % Normal 24-43 [facility] Comment on above: Performed By: #### U RNA, URTP, URCRE, UEOS #### [address] [address] Log Buyer: Alexey Green MD MCH (RBC) [Entitic mass] 29.6 pg Normal 25.2-33.5 [facility] Comment on above: Performed By: #### U RNA, URTP, URCRE, UEOS #### [address] [address] Log Buyer: Alexey Green MD MCHC (RBC) [Mass/Vol] 30.0 g/dL Normal 28.4-34.8 [facility] Comment on above: Performed By: #### U RNA, URTP, URCRE, UEOS #### [address] [address] Log Buyer: Alexey Green MD MCV (RBC) [Entitic vol] 98.7 fL Normal 82.6-102.9 [facility] Comment on above: Performed By: #### U RNA, URTP, URCRE, UEOS #### [address] [address] Log Buyer: Alexey Green MD Monocytes (Bld) [#/Vol] 1.13 10*3/uL Normal 0.10-1.20 [facility] Comment on above: Performed By: #### U RNA, URTP, URCRE, UEOS #### [address] [address] Log Buyer: Alexey Green MD Monocytes/100 WBC (Bld) 9 % Normal 3-12 [facility] Comment on above: Performed By: #### U RNA, URTP, URCRE, UEOS #### [address] [address] Log Buyer: Alexey Green MD Neutrophil (Seg) 61 % Normal 36-65 [facility] Comment on above: Performed By: #### U RNA, URTP, URCRE, UEOS #### [address] [address] Log Buyer: Alexey Green MD NRBC Automated 0.2 per 100 WBC High 0.0 [facility] Comment on above: Performed By: #### U RNA, URTP, URCRE, UEOS #### [address] [address] Log Buyer: Alexey Green MD Platelet Count See Reflexed IPF Result Normal 138-453 [facility] Comment on above: Performed By: #### U RNA, URTP, URCRE, UEOS #### [address] [address] Log Buyer: Alexey Green MD Platelet, Fluoresc. 133 k/uL Low 138-453 [facility] Comment on above: Performed By: #### U RNA, URTP, URCRE, UEOS #### [address] [address] Log Buyer: Alexey Green MD PLT, Immature Fract. 6.0 % Normal 1.1-10.3 [facility] Comment on above: Performed By: #### U RNA, URTP, URCRE, UEOS #### [address] [address] Log Buyer: Alexey Green MD RBC (Bld) [#/Vol] 2.97 10*6/uL Low 3.95-5.11 [facility] Comment on above: Performed By: #### U RNA, URTP, URCRE, UEOS #### [address] [address] Log Buyer: Alexey Green MD RBC morphology finding Nom (Bld) ANISOCYTOSIS PRESENT Normal [facility] Comment on above: Performed By: #### U RNA, URTP, URCRE, UEOS #### [address] [address] Log Buyer: Alexey Green MD WBC (Bld) [#/Vol] 13.1 10*3/uL High 3.5-11.3 [facility] Comment on above: Performed By: #### U RNA, URTP, URCRE, UEOS #### [place] [address] Log Buyer: Alexey Green MD Abs. Basophil 0.04 k/uL Normal 0.00-0.20 [facility] Comment on above: Performed By: #### Tanja ABRIDGETO #### [address] [address] Log Buyer: Alexey Green MD Abs.Imm.Granulocyte 0.07 k/uL Normal 0.00-0.30 [facility] Comment on above: Performed By: #### U A, UMICAO #### [facility] [address] [place] [address] Log Buyer: Alexey Green MD Abs.Neutrophil (Seg) 7.93 k/uL Normal 1.50-8.10 [facility] Comment on above: Performed By: #### U A, UMICAO #### [facility] [address] [place] [address] Log Buyer: Alexey Green MD Basophils/100 WBC (Bld) 0 % Normal 0-2 [facility] Comment on above: Performed By: #### U A, UMICAO #### [facility] [address] [place] [address] Log Buyer: Alexey Green MD Eosinophils (Bld) [#/Vol] 0.79 10*3/uL High 0.00-0.44 [facility] Comment on above: Performed By: #### U A UMICAO #### [facility] [address] [place] [address] Log Buyer: Alexey Green MD Eosinophils/100 WBC (Bld) 6 % High 1-4 [facility] Comment on above: Performed By: #### U A UMICAO #### [facility] [address] [place] [address] Log Buyer: Alexey Green MD Erythrocyte distribution width (RBC) [Ratio] 19.9 % High 11.8-14.4 [facility] Comment on above: Performed By: #### U A, UMICAO #### [facility] [address] [place] [address] Log Buyer: Alexey Green MD Hematocrit (Bld) [Volume fraction] 29.3 % Low 36.3-47.1 [facility] Comment on above: Performed By: #### U A, UMICAO #### [facility] [address] [place] [address] Log Buyer: Alexey Green MD Hemoglobin (Bld) [Mass/Vol] 8.8 g/dL Low 11.9-15.1 [facility] Comment on above: Performed By: #### U A, UMICAO #### [facility] [address] [place] [address] Log Buyer: Alexey Green MD Immature granulocytes/100 WBC (Bld) 1 % High 0 [facility] Comment on above: Performed By: #### U A, UMICAO #### [address] [address] Log Buyer: Alexey Green MD Lymphocytes (Bld) [#/Vol] 3.17 10*3/uL Normal 1.10-3.70 [facility] Comment on above: Performed By: #### U A, UMICAO #### [address] [address] Log Buyer: Alexey Green MD Lymphocytes/100 WBC (Bld) 24 % Normal 24-43 [facility] Comment on above: Performed By: #### U A, UMICAO #### [facility] [address] [place] [address] Log Buyer: Alexey Green MD MCH (RBC) [Entitic mass] 29.6 pg Normal 25.2-33.5 [facility] Comment on above: Performed By: #### U A, UMICAO #### [facility] [address] [place] [address] Log Buyer: Alexey Green MD MCHC (RBC) [Mass/Vol] 30.0 g/dL Normal 28.4-34.8 [facility] Comment on above: Performed By: #### U A, UMICAO #### [facility] [address] [place] [address] Log Buyer: Alexey Green MD MCV (RBC) [Entitic vol] 98.7 fL Normal 82.6-102.9 [facility] Comment on above: Performed By: #### VIKTOR Espinoza #### [address] [address] Log Buyer: Alexey Green MD Monocytes (Bld) [#/Vol] 1.13 10*3/uL Normal 0.10-1.20 [facility] Comment on above: Performed By: #### VIKTOR Espinoza #### [address] [address] Log Buyer: Alexey Green MD Monocytes/100 WBC (Bld) 9 % Normal 3-12 [facility] Comment on above: Performed By: #### VIKTOR Espinoza #### [address] [address] Log Buyer: Alexey Green MD Neutrophil (Seg) 61 % Normal 36-65 [facility] Comment on above: Performed By: #### VIKTOR Espinoza #### [address] [address] Log Buyer: Alexey Green MD NRBC Automated 0.2 per 100 WBC High 0.0 [facility] Comment on above: Performed By: #### VIKTOR Espinoza #### [address] [address] Log Buyer: Alexey Green MD Platelet Count See Reflexed IPF Result Normal 138-453 [facility] Comment on above: Performed By: #### U VIKTOR Justice #### [address] [address] Log Buyer: Alexey Green MD Platelet, Fluoresc. 133 k/uL Low 138-453 [facility] Comment on above: Performed By: #### VIKTOR Espinoza #### [facility] [address] [place] [address] Log Buyer: Alexey Green MD PLT, Immature Fract. 6.0 % Normal 1.1-10.3 [facility] Comment on above: Performed By: #### U A, UMICAO #### [facility] [address] [place] [address] Log Buyer: Alexey Green MD RBC (Bld) [#/Vol] 2.97 10*6/uL Low 3.95-5.11 [facility] Comment on above: Performed By: #### U A, UMICAO #### [address] [address] Log Buyer: Aleexy Green MD RBC morphology finding Nom (Bld) ANISOCYTOSIS PRESENT Normal [facility] Comment on above: Performed By: #### U A, UMICAO #### [facility] [address] [place] [address] Log Buyer: Alexey Green MD WBC (Bld) [#/Vol] 13.1 10*3/uL High 3.5-11.3 [facility] Comment on above: Performed By: #### U A, UMICAO #### [facility] [address] [place] [address] Log Buyer: Alexey Green MD Creatinine,Random Uron 07-25 Creatinine [Mass/Vol] 63.2 mg/dL Normal 28.0-217.0 [facility] Comment on above: Performed By: #### U RNA, URTP, URCRE, UEOS #### [facility] [address] [place] [address] Log Buyer: Alexey Green MD Creatinine [Mass/Vol] 63.2 mg/dL Normal 28.0-217.0 [facility] Comment on above: Performed By: #### B MP, CDP #### [address] [address] Log Buyer: Alexey Green MD Eosinophils, Urineon 024 Eosinophils, Urine NONE SEEN Normal [facility] Comment on above: Performed By: #### U RNA, URTP, URCRE, UEOS #### [address] [address] Log Buyer: Alexey Green MD Eosinophils, Urine NONE SEEN Normal [facility] Comment on above: Performed By: #### B BASIL, CDP #### [address] [address] Log Buyer: Alexey Green MD Free [place] + Lambdaon 2023 Free [place] Lt Chains 95.5 mg/L High <20.8 [facility] Comment on above: Result Comment: Perf ormed using Diazyme reagent on [employer] Narcisa Pro. Results obtained with different assay methods cannot be used interchangeably. Performed By: #### U RNA, URTP, URCRE, UEOS #### [address] [address] Log Buyer: Alexey Green MD Free [place]/Lambda Rat 1.29 Normal 0.22-1.74 [facility] Comment on above: Performed By: #### U RNA, URTP, URCRE, UEOS #### [address] [address] Log Buyer: Alexey Green MD Free Lambda Lt Chains 74.1 mg/L High 4.2-27.7 [facility] Comment on above: Result Comment: Perf ormed using Diazyme reagent on [employer] Narcisa Pro. Results obtained with different assay methods cannot be used interchangeably. Performed By: #### U RNA, URTP, URCRE, UEOS #### [facility] [address] [place] [address] Log Buyer: Alexey Green MD Free [place] Lt Chains 95.5 mg/L High <20.8 [facility] Comment on above: Result Comment: Perf ormed using Diazyme reagent on [employer]arcisa Pro. Results obtained with different assay methods cannot be used interchangeably. Performed By: #### U A, UMICAO #### [facility] [address] [place] [address] Log Buyer: Alexey Green MD Free [place]/Lambda Rat 1.29 Normal 0.22-1.74 [facility] Comment on above: Performed By: #### U A, UMICAO #### [facility] [address] [place] [phone] Log Buyer: Alexey Green MD Free Lambda Lt Chains 74.1 mg/L High 4.2-27.7 [facility] Comment on above: Result Comment: Perf ormed using Diazyme reagent on Yolis Narcisa Pro. Results obtained with different assay methods cannot be used interchangeably. Performed By: #### U A, UMICAO #### [facility] [address] [place] [phone] Log Buyer: Alexey Green MD Prot. Electroph, Blon 2023 Protein [Mass/Vol] 5.7 g/dL Low 6.6-8.7 [facility] Comment on above: Performed By: #### U RNA, URTP, URCRE, UEOS #### [facility] [address] [place] [address] [phone] Log Buyer: Alexey Green MD Protein [Mass/Vol] 5.7 g/dL Low 6.6-8.7 [facility] Comment on above: Performed By: #### U A, UMICAO #### [facility] [address] [place] [address] 9[address]81 Log Buyer: Alexey Green MD Protein,Tot,[place] Uron 2023 Tot Prot. Conc. 29 mg/dL Normal [facility] Comment on above: Result Comment: No n ormal range established. Performed By: #### U RNA, URTP, URCRE, UEOS #### [facility] [address] [place] [address] 52909 Log Buyer: Alexey Green MD Tot Prot. Conc. 29 mg/dL Normal [facility] Comment on above: Result Comment: No n ormal range established. Performed By: #### B MP, CDP #### [facility] [address] [place] [address] [phone] Log Buyer: Alexey Green MD Sodium, Random Uron 07-26-19 24 Sodium (U) [Moles/Vol] 32 mmol/L Normal [facility] Comment on above: Result Comment: No n ormal range established. Performed By: #### U RNA, URTP, URCRE, UEOS #### [facility] [address] [place] [address] [phone] Log Buyer: Alexey Green MD Sodium (U) [Moles/Vol] 32 mmol/L Normal [facility] Comment on above: Result Comment: No n ormal range established. Performed By: #### B BASIL, CDP #### [facility] [address] [place] [address] [phone] Log Buyer: Alexey Green MD US RENAL COMPLETEon 07-26-19 24 US RENAL COMPLETE EXAMINATION: RETROPERITONEAL ULTRASOUND OF [...] Edmundo Morton MD 07/26/23 Final result Normal [facility] XR CHEST PORTABLEon 07-26-19 XR CHEST PORTABLE [...] Iam Mcknight MD 07/26/23 Final result Normal [facility] XR CHEST PORTABLE EXAMINATION: ONE XRAY VIEW [...] Iam Mcknight MD 07/26/23 Final result Normal [facility] Basic Metab w/rfx MGon 07-24 Anion gap [Moles/Vol] 11 mmol/L Normal - [facility] Comment on above: Performed By: #### B MPX #### [facility] [place] [address] Log Buyer: Alexey Green MD Calcium [Mass/Vol] 7.7 mg/dL Low 8.6-10.4 [facility] Comment on above: Performed By: #### B MPX #### [facility] [address] [place] [address] Log Buyer: Alexey Green MD Chloride [Moles/Vol] 107 mmol/L Normal 98-107 [facility] Comment on above: Performed By: #### B MPX #### [facility] [place] [address] Log Buyer: Alexey Green MD CO2 [Moles/Vol] 19 mmol/L Low 20-31 [facility] Comment on above: Performed By: #### B MPX #### [facility] [address] [place] [address] [phone] Log Buyer: Alexey Green MD Creatinine [Mass/Vol] 2.4 mg/dL High 0.50-0.90 [facility] Comment on above: Performed By: #### B MPX #### [address] [address] Log Buyer: Alexey Green MD GFR/1.73 sq M.predicted among non-blacks MDRD (S/P/Bld) [Vol rate/Area] 19 mL/min/{1.73_m2} Low >60 [facility] Comment on above: Result Comment: These results [...] secretion. Performed By: #### B MPX #### [facility] [address] [place] [address] [phone] Log Buyer: Alexey Green MD Glucose [Mass/Vol] 188 mg/dL High 74-99 [facility] Comment on above: Performed By: #### B MPX #### [address] [address] Log Buyer: Alexey Green MD Potassium [Moles/Vol] 5.1 mmol/L Normal 3.7-5.3 [facility] Comment on above: Performed By: #### B MPX #### [address] [address] Log Buyer: Alexey Green MD Sodium [Moles/Vol] 137 mmol/L Normal 136-145 [facility] Comment on above: Performed By: #### B MPX #### [address] [address] Log Buyer: Alexey Green MD Urea nitrogen [Mass/Vol] 42 mg/dL High 8-23 [facility] Comment on above: Performed By: #### B MPX #### [address] [address] Log Buyer: Alexey Green MD Anion gap [Moles/Vol] 11 mmol/L Normal 9-16 [facility] Comment on above: Performed By: #### ALYSSA SILVER, YEIMI #### [address] [address] Log Buyer: Alexey Green MD Calcium [Mass/Vol] 7.7 mg/dL Low 8.6-10.4 [facility] Comment on above: Performed By: #### U ZACARIAS UA, YEIMI #### [facility] [address] [place] [address] 94180 Log Buyer: Alexey Green MD Chloride [Moles/Vol] 107 mmol/L Normal 98-107 [facility] Comment on above: Performed By: #### U ZACARIAS UA, YEIMI #### [facility] [address] [place] [address] 38958 Log Buyer: Alexey Green MD CO2 [Moles/Vol] 19 mmol/L Low 20-31 [facility] Comment on above: Performed By: #### U KURTISO UA, YEIMI #### [facility] [place] [address] Log Buyer: Alexey Green MD Creatinine [Mass/Vol] 2.4 mg/dL High 0.50-0.90 [facility] Comment on above: Performed By: #### U MICAO UA, YEIMI #### [facility] [address] [place] [phone] Log Buyer: Alexey Green MD GFR/1.73 sq M.predicted among non-blacks MDRD (S/P/Bld) [Vol rate/Area] 19 mL/min/{1.73_m2} Low >60 [facility] Comment on above: Result Comment: These results [...] tubular secretion. Performed By: #### U KURTISO UA, YEIMI #### [facility] [address] [place] [address]505 Log Buyer: Alexey Green MD Glucose [Mass/Vol] 188 mg/dL High 74-99 [facility] Comment on above: Performed By: #### U MICAO, UA, YEIMI #### [facility] [place] [address] Log Buyer: Alexey Green MD Potassium [Moles/Vol] 5.1 mmol/L Normal 3.7-5.3 [facility] Comment on above: Performed By: #### U MICAO, UA, YEIMI #### [facility] [address] [place] [address] [phone] Log Buyer: Alexey Green MD Sodium [Moles/Vol] 137 mmol/L Normal 136-145 [facility] Comment on above: Performed By: #### U ALYSSA ADAMES, YEIMI #### [facility] [address] [place] [address] [phone] Log Buyer: Alexey Green MD Urea nitrogen [Mass/Vol] 42 mg/dL High 8-23 [facility] Comment on above: Performed By: #### ALYSSA SILVER, YEIMI #### [facility] [address] [place] [address] 12066 Log Buyer: Alexey Green MD Basic Metabolic Profon 07-24 Anion gap [Moles/Vol] 10 mmol/L Normal 9-16 [facility] Comment on above: Performed By: #### C DP, BMP #### [address] [address] Log Buyer: Alexey Green MD Calcium [Mass/Vol] 7.6 mg/dL Low 8.6-10.4 [facility] Comment on above: Performed By: #### C DP, BMP #### [address] [address] Log Buyer: Alexey Green MD Chloride [Moles/Vol] 108 mmol/L High 98-107 [facility] Comment on above: Performed By: #### C DP, BMP #### [facility] [address] [place] [address] 40844 Log Buyer: Alexey Green MD CO2 [Moles/Vol] 21 mmol/L Normal 20-31 [facility] Comment on above: Performed By: #### C DP, BMP #### [facility] [address] [place] [address] 52985 Log Buyer: Alexey Green MD Creatinine [Mass/Vol] 2.3 mg/dL High 0.50-0.90 [facility] Comment on above: Performed By: #### C DP, BMP #### [address] [address] Log Buyer: Alexey Green MD GFR/1.73 sq M.predicted among non-blacks MDRD (S/P/Bld) [Vol rate/Area] 20 mL/min/{1.73_m2} Low >60 [facility] Comment on above: Result Comment: These results [...] Performed By: #### C DP, BMP #### [facility] [address] [place] [address] [phone] Log Buyer: Alexey Green MD Glucose [Mass/Vol] 130 mg/dL High 74-99 [facility] Comment on above: Performed By: #### C DP, BMP #### [address] [address] Log Buyer: Alexey Green MD Potassium [Moles/Vol] 5.3 mmol/L Normal 3.7-5.3 [facility] Comment on above: Performed By: #### C DP, BMP #### [facility] [address] [place] [address] 86013 Log Buyer: Alexey Green MD Sodium [Moles/Vol] 139 mmol/L Normal 136-145 [facility] Comment on above: Performed By: #### C DP, BMP #### [facility] [address] [place] [address] 69466 Log Buyer: Alexey Green MD Urea nitrogen [Mass/Vol] 41 mg/dL High 8-23 [facility] Comment on above: Performed By: #### C DP, BMP #### [facility] [address] [place] [address] 17662 Log Buyer: Alexey Green MD Anion gap [Moles/Vol] 10 mmol/L Normal 9-16 [facility] Comment on above: Performed By: #### B MP, CDP #### [facility] [address] [place] [address] 17856 Log Buyer: Alexey Green MD Calcium [Mass/Vol] 7.6 mg/dL Low 8.6-10.4 [facility] Comment on above: Performed By: #### B MP, CDP #### [facility] [address] [place] [address] 47245 Log Buyer: Alexey Green MD Chloride [Moles/Vol] 108 mmol/L High 98-107 [facility] Comment on above: Performed By: #### B MP, CDP #### [facility] [address] [place] [address] 19977 Log Buyer: Alexey Green MD CO2 [Moles/Vol] 21 mmol/L Normal 20-31 [facility] Comment on above: Performed By: #### B MP, CDP #### [facility] [address] [place] [address] 01937 Log Buyer: Alexey Green MD Creatinine [Mass/Vol] 2.3 mg/dL High 0.50-0.90 [facility] Comment on above: Performed By: #### B MP, CDP #### [facility] [address] [place] [address] 89733 Log Buyer: Alexey Green MD GFR/1.73 sq M.predicted among non-blacks MDRD (S/P/Bld) [Vol rate/Area] 20 mL/min/{1.73_m2} Low >60 [facility] Comment on above: Result Comment: These results [...] renal tubular secretion. Performed By: #### B BASIL, CDP #### [address] [address] Log Buyer: Alexey Green MD Glucose [Mass/Vol] 130 mg/dL High 74-99 [facility] Comment on above: Performed By: #### B BASIL, CDP #### [address] [address] Log Buyer: lAexey Green MD Potassium [Moles/Vol] 5.3 mmol/L Normal 3.7-5.3 [facility] Comment on above: Performed By: #### B BASIL, CDP #### [address] [address] Log Buyer: Alexey Green MD Sodium [Moles/Vol] 139 mmol/L Normal 136-145 [facility] Comment on above: Performed By: #### B MP, CDP #### [address] [address] Log Buyer: Alexey Green MD Urea nitrogen [Mass/Vol] 41 mg/dL High 8-23 [facility] Comment on above: Performed By: #### B MP, CDP #### [facility] [address] [place] [address] 88580 Log Buyer: Alexey Green MD CBC with Diffon 07-25-2023 Abs. Basophil 0.03 k/uL Normal 0.00-0.20 [facility] Comment on above: Performed By: #### C DP, BMP #### [address] [address] Log Buyer: Alexey Green MD Abs.Imm.Granulocyte 0.03 k/uL Normal 0.00-0.30 [facility] Comment on above: Performed By: #### C DP, BMP #### [place] [address] Log Buyer: Alexey Green MD Abs.Neutrophil (Seg) 6.37 k/uL Normal 1.50-8.10 [facility] Comment on above: Performed By: #### C DP, BMP #### [place] [address] Log Buyer: Alexey Green MD Basophils/100 WBC (Bld) 0 % Normal 0-2 [facility] Comment on above: Performed By: #### C DP, BMP #### [place] [address] Log Buyer: Alexey Green MD Eosinophils (Bld) [#/Vol] 0.30 10*3/uL Normal 0.00-0.44 [facility] Comment on above: Performed By: #### C DP, BMP #### [address] [address] Log Buyer: Alexey Green MD Eosinophils/100 WBC (Bld) 3 % Normal 1-4 [facility] Comment on above: Performed By: #### C DP, BMP #### [place] [address] Log Buyer: Alexey Green MD Erythrocyte distribution width (RBC) [Ratio] 13.5 % Normal 11.8-14.4 [facility] Comment on above: Performed By: #### C DP, BMP #### [address] [address] Log Buyer: Alexey Green MD Hematocrit (Bld) [Volume fraction] 28.3 % Low 36.3-47.1 [facility] Comment on above: Performed By: #### C DP, BMP #### [address] [address] Log Buyer: Alexey Green MD Hemoglobin (Bld) [Mass/Vol] 8.2 g/dL Low 11.9-15.1 [facility] Comment on above: Performed By: #### C DP, BMP #### [address] [address] Log Buyer: Alexey Green MD Immature granulocytes/100 WBC (Bld) 0 % Normal 0 [facility] Comment on above: Performed By: #### C DP, BMP #### [address] [address] Log Buyer: Alexey Green MD Lymphocytes (Bld) [#/Vol] 3.86 10*3/uL High 1.10-3.70 [facility] Comment on above: Performed By: #### C DP, BMP #### [address] [address] Log Buyer: Alexey Green MD Lymphocytes/100 WBC (Bld) 33 % Normal 24-43 [facility] Comment on above: Performed By: #### C DP, BMP #### [address] [address] Log Buyer: Alexey Green MD MCH (RBC) [Entitic mass] 31.5 pg Normal 25.2-33.5 [facility] Comment on above: Performed By: #### C DP, BMP #### [facility] [address] [place] [address] 6[address] Log Buyer: Alexey Green MD MCHC (RBC) [Mass/Vol] 29.0 g/dL Normal 28.4-34.8 [facility] Comment on above: Performed By: #### C DP, BMP #### [address] [address] Log Buyer: Alexey Green MD MCV (RBC) [Entitic vol] 108.8 fL High 82.6-102.9 [facility] Comment on above: Performed By: #### C DP, BMP #### [address] [address] Log Buyer: Alexey Green MD Monocytes (Bld) [#/Vol] 1.19 10*3/uL Normal 0.10-1.20 [facility] Comment on above: Performed By: #### C DP, BMP #### [address] [address] Log Buyer: Alexey Green MD Monocytes/100 WBC (Bld) 10 % Normal 3-12 [facility] Comment on above: Performed By: #### C DP, BMP #### [address] [address] Log Buyer: Alexey Green MD Neutrophil (Seg) 54 % Normal 36-65 [facility] Comment on above: Performed By: #### C DP, BMP #### [address] [address] Log Buyer: Alexey Green MD NRBC Automated 0.0 per 100 WBC Normal 0.0 [facility] Comment on above: Performed By: #### C DP, BMP #### [address] [address] Log Buyer: Alexey Green MD Platelet mean volume (Bld) [Entitic vol] 11.8 fL Normal 8.1-13.5 [facility] Comment on above: Performed By: #### C DP, BMP #### [address] [address] Log Buyer: Alexey Green MD Platelets (Bld) [#/Vol] 148 10*3/uL Normal 138-453 [facility] Comment on above: Performed By: #### C DP, BMP #### [address] [address] Log Buyer: Alexey Green MD RBC (Bld) [#/Vol] 2.60 10*6/uL Low 3.95-5.11 [facility] Comment on above: Performed By: #### C DP, BMP #### [address] [address] Log Buyer: Alexey Green MD RBC morphology finding Nom (Bld) MACROCYTOSIS PRESENT Normal [facility] Comment on above: Performed By: #### C DP, BMP #### [address] [address] Log Buyer: Alexey Green MD WBC (Bld) [#/Vol] 11.8 10*3/uL High 3.5-11.3 [facility] Comment on above: Performed By: #### C DP, BMP #### [address] [address] Log Buyer: Alexey Green MD Abs. Basophil 0.03 k/uL Normal 0.00-0.20 [facility] Comment on above: Performed By: #### B MP, CDP #### [address] [address] Log Buyer: Alexey Green MD Abs.Imm.Granulocyte 0.03 k/uL Normal 0.00-0.30 [facility] Comment on above: Performed By: #### B MP, CDP #### [address] [address] Log Buyer: Alexey Green MD Abs.Neutrophil (Seg) 6.37 k/uL Normal 1.50-8.10 [facility] Comment on above: Performed By: #### B MP, CDP #### [facility] [address] [place] [address]66 Log Buyer: Alexey Green MD Basophils/100 WBC (Bld) 0 % Normal 0-2 [facility] Comment on above: Performed By: #### B MP, CDP #### [facility] [address] [place] [address] Log Buyer: Alexey Green MD Eosinophils (Bld) [#/Vol] 0.30 10*3/uL Normal 0.00-0.44 [facility] Comment on above: Performed By: #### B MP, CDP #### [address] [address] Log Buyer: Alexey Green MD Eosinophils/100 WBC (Bld) 3 % Normal 1-4 [facility] Comment on above: Performed By: #### B MP, CDP #### [address] [address] Log Buyer: Alexey Green MD Erythrocyte distribution width (RBC) [Ratio] 13.5 % Normal 11.8-14.4 [facility] Comment on above: Performed By: #### B MP, CDP #### [facility] [address] [place] [address] Log Buyer: Alexey Green MD Hematocrit (Bld) [Volume fraction] 28.3 % Low 36.3-47.1 [facility] Comment on above: Performed By: #### B MP, CDP #### [facility] [address] [place] [address]85 Log Buyer: Alexey Green MD Hemoglobin (Bld) [Mass/Vol] 8.2 g/dL Low 11.9-15.1 [facility] Comment on above: Performed By: #### B MP, CDP #### [facility] [address] [place] [address]8794 Log Buyer: Alexey Green MD Immature granulocytes/100 WBC (Bld) 0 % Normal 0 [facility] Comment on above: Performed By: #### B BASIL, CDP #### [address] [address] Log Buyer: Alexey Green MD Lymphocytes (Bld) [#/Vol] 3.86 10*3/uL High 1.10-3.70 [facility] Comment on above: Performed By: #### B BASIL, CDP #### [address] [address] Log Buyer: Alexey Green MD Lymphocytes/100 WBC (Bld) 33 % Normal 24-43 [facility] Comment on above: Performed By: #### B BASIL, CDP #### [address] [address] Log Buyer: Alexey Green MD MCH (RBC) [Entitic mass] 31.5 pg Normal 25.2-33.5 [facility] Comment on above: Performed By: #### B BASIL, CDP #### [address] [address] Log Buyer: Alexey Green MD MCHC (RBC) [Mass/Vol] 29.0 g/dL Normal 28.4-34.8 [facility] Comment on above: Performed By: #### B MP, CDP #### [address] [address] Log Buyer: Alexey Green MD MCV (RBC) [Entitic vol] 108.8 fL High 82.6-102.9 [facility] Comment on above: Performed By: #### B MP, CDP #### [address] [address] Log Buyer: Alexey Green MD Monocytes (Bld) [#/Vol] 1.19 10*3/uL Normal 0.10-1.20 [facility] Comment on above: Performed By: #### B MP, CDP #### [address] [address] Log Buyer: Alexey Green MD Monocytes/100 WBC (Bld) 10 % Normal 3-12 [facility] Comment on above: Performed By: #### B MP, CDP #### [address] [address] Log Buyer: Alexey Green MD Neutrophil (Seg) 54 % Normal 36-65 [facility] Comment on above: Performed By: #### B BASIL, CDP #### [address] [address] Log Buyer: Alexey Green MD NRBC Automated 0.0 per 100 WBC Normal 0.0 [facility] Comment on above: Performed By: #### B BASIL, CDP #### [address] [address] Log Buyer: Alexey Green MD Platelet mean volume (Bld) [Entitic vol] 11.8 fL Normal 8.1-13.5 [facility] Comment on above: Performed By: #### B BASIL, CDP #### [address] [address] Log Buyer: Alexey Green MD Platelets (Bld) [#/Vol] 148 10*3/uL Normal 138-453 [facility] Comment on above: Performed By: #### B MP, CDP #### [address] [address] Log Buyer: Alexey Green MD RBC (Bld) [#/Vol] 2.60 10*6/uL Low 3.95-5.11 [facility] Comment on above: Performed By: #### B BASIL, CDP #### [facility] [address] [place] [address] Log Buyer: Alexey Green MD RBC morphology finding Nom (Bld) MACROCYTOSIS PRESENT Normal [facility] Comment on above: Performed By: #### B MP, CDP #### [facility] [address] [place] [address]505 Log Buyer: Alexey Green MD WBC (Bld) [#/Vol] 11.8 10*3/uL High 3.5-11.3 [facility] Comment on above: Performed By: #### B MP, CDP #### [facility] [address] [place] [address] Log Buyer: Alexey Green MD Calcium, Ionicon 07-25-2023 Calcium [Moles/Vol] 1.20 mmol/L Normal 1.13-1.33 [facility] Comment on above: Performed By: #### B MPX #### [facility] [address] [place] [address]365 Log Buyer: Alexey Green MD Calcium [Moles/Vol] 1.20 mmol/L Normal 1.13-1.33 [facility] Comment on above: Performed By: #### B MP, CDP #### [facility] [address] [place] [address] 26512 Log Buyer: Alexey Green MD Hgb/Hcton 07-25-2023 Hematocrit (Bld) [Volume fraction] 33.2 % Low 36.3-47.1 [facility] Comment on above: Performed By: #### U RNA, URTP, URCRE, UEOS #### [address] [address] Log Buyer: Alexey Green MD Performed By: #### H H #### [facility] [address] [place] [address] [phone] Log Buyer: Alexey Green MD Hemoglobin (Bld) [Mass/Vol] 9.4 g/dL Low 11.9-15.1 [facility] Comment on above: Performed By: #### U RNA, URTP, URCRE, UEOS #### [address] [address] Log Buyer: Alexey Green MD Performed By: #### H H #### [address] [address] Log Buyer: Alexey Green MD Hematocrit (Bld) [Volume fraction] 26.7 % Low 36.3-47.1 [facility] Comment on above: Performed By: #### U RNA, URTP, URCRE, UEOS #### [address] [address] Log Buyer: Alexey Green MD Hemoglobin (Bld) [Mass/Vol] 7.6 g/dL Low 11.9-15.1 [facility] Comment on above: Performed By: #### U RNA, URTP, URCRE, UEOS #### [address] [address] Log Buyer: Alexey Green MD Hematocrit (Bld) [Volume fraction] 26.7 % Low 36.3-47.1 [facility] Comment on above: Performed By: #### H H #### [address] [address] Log Buyer: Alexey Green MD Hemoglobin (Bld) [Mass/Vol] 7.6 g/dL Low 11.9-15.1 [facility] Comment on above: Performed By: #### H H #### [facility] [address] [place] [address] Log Buyer: Alexey Green MD Urinalysis, Routineon 2023 Bilirubin, SemiQt,Ur Negative Normal NEG [facility] Comment on above: Performed By: #### U MICAO, UA #### [facility] [address] [place] [phone] Log Buyer: Alexey Green MD Blood, Urine Negative Normal NEG [facility] Comment on above: Performed By: #### U MICAO, UA #### [facility] [address] [place] [address]91 Log Buyer: Alexey Green MD Clarity (U) Clear Normal CLEAR [facility] Comment on above: Performed By: #### U MICAO, UA #### [facility] [address] [address] Log Buyer: Alexey Green MD Color (U) Yellow Normal YEL [facility] Comment on above: Performed By: #### U MICAO, UA #### [facility] [address] [address] Log Buyer: Alexey Green MD Glucose Ql (U) Negative Normal NEG [facility] Comment on above: Performed By: #### U MICAO, UA #### [facility] [address] [address] Log Buyer: Alexey Green MD Ketones Ql (U) Negative Normal NEG [facility] Comment on above: Performed By: #### U MICAO, UA #### [facility] [address] [address] Log Buyer: Alexey Green MD Leukocyte esterase Test strip Ql (U) MODERATE Abnormal NEG [facility] Comment on above: Performed By: #### U MICAO, UA #### [facility] [address] [place] [address] Log Buyer: Alexey Green MD Nitrite,Ur Negative Normal NEG [facility] Comment on above: Performed By: #### U MICAO, UA #### [facility] [address] [place] [address]271 Log Buyer: Alexey Green MD PH,Ur 5.0 Normal 5.0-8.0 [facility] Comment on above: Performed By: #### U KURTISO, UA #### [facility] [address] [place] [address] Log Buyer: Alexey Green MD Protein Ql (U) 1+ mg/dL Abnormal NEG [facility] Comment on above: Performed By: #### U MICAO, UA #### [address] [address] Log Buyer: Alexey Green MD Spec. [place],Ur 1.025 Normal 1.005-1.030 [facility] Comment on above: Performed By: #### U ZACARIAS, UA #### [address] [address] Log Buyer: Alexey Green MD Urobilinogen,Ur Normal Normal 0.0-1.0 [facility] Comment on above: Performed By: #### U ZACARIAS, UA #### [address] [address] Log Buyer: Alexey Green MD Bilirubin, SemiQt,Ur Negative Normal NEG [facility] Comment on above: Performed By: #### U Vinh UMICAO #### [facility] [address] [place] [address] Log Buyer: Alexey Green MD Blood, Urine Negative Normal NEG [facility] Comment on above: Performed By: #### U Vinh UMICAO #### [facility] [address] [place] [address] Log Buyer: Alexey Green MD Clarity (U) Clear Normal CLEAR [facility] Comment on above: Performed By: #### U A, UMICAO #### [facility] [address] [place] [address] Log Buyer: Alexey Green MD Color (U) Yellow Normal YEL [facility] Comment on above: Performed By: #### U A, UMICAO #### [facility] [address] [place] [address] Log Buyer: Alexey Green MD Glucose Ql (U) Negative Normal NEG [facility] Comment on above: Performed By: #### U A, UMICAO #### [address] [address] Log Buyer: Alexey Green MD Ketones Ql (U) Negative Normal NEG [facility] Comment on above: Performed By: #### U A, UMICAO #### [address] [address] Log Buyer: Alexey Green MD Leukocyte esterase Test strip Ql (U) MODERATE Abnormal NEG [facility] Comment on above: Performed By: #### U A, UMICAO #### [address] [address] Log Buyer: Alexey Green MD Nitrite,Ur Negative Normal NEG [facility] Comment on above: Performed By: #### U A, UMICAO #### [facility] [address] [place] [address] Log Buyer: Alexey Green MD PH,Ur 5.0 Normal 5.0-8.0 [facility] Comment on above: Performed By: #### U A, UMICAO #### [facility] [address] [place] [address] Log Buyer: Alexey Green MD Protein Ql (U) 1+ mg/dL Abnormal NEG [facility] Comment on above: Performed By: #### U A UMICAO #### [facility] [place] [address] Log Buyer: Alexey Green MD Spec. [place],Ur 1.025 Normal 1.005-1.030 [facility] Comment on above: Performed By: #### U A, UMICAO #### [address] [address] Log Buyer: Alexey Green MD Urobilinogen,Ur Normal Normal 0.0-1.0 [facility] Comment on above: Performed By: #### U A UMICAO #### [facility] [address] [place] [address] Log Buyer: Alexey Green MD Urinalysis,Microon 4 Bacteria None Normal NONE [facility] Comment on above: Performed By: #### U MICAO, UA #### [address] [address] Log Buyer: Alexey Green MD Casts None Normal 0-8 [facility] Comment on above: Result Comment: Refe rence range defined for non-centrifuged specimen. Performed By: #### U MICAO, UA #### [facility] [address] [place] [address] Log Buyer: Alexey Green MD Epithelial cells LM Ql (Urine sed) 2 TO 5 Normal 0-5 [facility] Comment on above: Performed By: #### U MICAO, UA #### [facility] [address] [place] [address] Log Buyer: Alexey Green MD Urine RBC's 2 TO 5 Normal 0-4 [facility] Comment on above: Result Comment: Refe rence range defined for non-centrifuged specimen. Performed By: #### U MICAO, UA #### [facility] [address] [place] [address] Log Buyer: Alexey Green MD Urine WBC's 20 TO 50 Normal 0-5 [facility] Comment on above: Performed By: #### U MICAO, UA #### [facility] [address] [place] [address] Log Buyer: Alexey Green MD Bacteria None Normal NONE [facility] Comment on above: Performed By: #### U A, UMICAO #### [facility] [address] [place] [address] Log Buyer: Alexey Green MD Casts None Normal 0-8 [facility] Comment on above: Result Comment: Refe rence range defined for non-centrifuged specimen. Performed By: #### U A, UMICAO #### [address] [address] Log Buyer: Alexey Green MD Epithelial cells LM Ql (Urine sed) 2 TO 5 Normal 0-5 [facility] Comment on above: Performed By: #### U A, UMICAO #### [address] [address] Log Buyer: Alexey Green MD Urine RBC's 2 TO 5 Normal 0-4 [facility] Comment on above: Result Comment: Refe rence range defined for non-centrifuged specimen. Performed By: #### U A, UMICAO #### [facility] [address] [place] [phone] Log Buyer: Alexey Green MD Urine WBC's 20 TO 50 Normal 0-5 [facility] Comment on above: Performed By: #### U A, UMICAO #### [facility] [address] [place] [address] Log Buyer: Alexey Green MD Basic Metabolic Profon 07-23 Anion gap [Moles/Vol] 8 mmol/L Low 9-16 [facility] Comment on above: Performed By: #### U RNA, URTP, URCRE, UEOS #### [address] [address] Log Buyer: Alexey Green MD Calcium [Mass/Vol] 8.3 mg/dL Low 8.6-10.4 [facility] Comment on above: Performed By: #### U RNA, URTP, URCRE, UEOS #### [address] [address] Log Buyer: Alexey Green MD Chloride [Moles/Vol] 110 mmol/L High 98-107 [facility] Comment on above: Performed By: #### U RNA, URTP, URCRE, UEOS #### [address] [address] Log Buyer: Alexey Green MD CO2 [Moles/Vol] 22 mmol/L Normal 20-31 [facility] Comment on above: Performed By: #### U RNA, URTP, URCRE, UEOS #### [address] [address] Log Buyer: Alexey Green MD Creatinine [Mass/Vol] 2.0 mg/dL High 0.50-0.90 [facility] Comment on above: Performed By: #### U RNA, URTP, URCRE, UEOS #### [address] [address] Log Buyer: Alexey Green MD GFR/1.73 sq M.predicted among non-blacks MDRD (S/P/Bld) [Vol rate/Area] 24 mL/min/{1.73_m2} Low >60 [facility] Comment on above: Result Comment: These results [...] #### U RNA, URTP, URCRE, UEOS #### [address] [address] Log Buyer: Alexey Green MD Glucose [Mass/Vol] 108 mg/dL High 74-99 [facility] Comment on above: Performed By: #### U RNA, URTP, URCRE, UEOS #### [address] [address] Log Buyer: Alexey Green MD Potassium [Moles/Vol] 5.0 mmol/L Normal 3.7-5.3 [facility] Comment on above: Result Comment: SPEC IMEN SLIGHTLY HEMOLYZED, RESULTS MAY BE ADVERSELY AFFECTED. Performed By: #### U RNA, URTP, URCRE, UEOS #### [facility] [address] [place] [address] Log Buyer: Alexey Green MD Sodium [Moles/Vol] 140 mmol/L Normal 136-145 [facility] Comment on above: Performed By: #### U RNA, URTP, URCRE, UEOS #### [address] [address] Log Buyer: Alexey Green MD Urea nitrogen [Mass/Vol] 41 mg/dL High 8-23 [facility] Comment on above: Performed By: #### U RNA, URTP, URCRE, UEOS #### [address] [address] Log Buyer: Alexey Green MD Anion gap [Moles/Vol] 8 mmol/L Low 9-16 [facility] Comment on above: Performed By: #### B MP, CDP #### [address] [address] Log Buyer: Alexey Green MD Calcium [Mass/Vol] 8.3 mg/dL Low 8.6-10.4 [facility] Comment on above: Performed By: #### B BASIL, CDP #### [facility] [address] [place] [address] Log Buyer: Alexey Green MD Chloride [Moles/Vol] 110 mmol/L High 98-107 [facility] Comment on above: Performed By: #### B BASIL, CDP #### [facility] [address] [place] [address] Log Buyer: Alexey Green MD CO2 [Moles/Vol] 22 mmol/L Normal 20-31 [facility] Comment on above: Performed By: #### B BASIL, CDP #### [facility] [address] [place] [address] Log Buyer: Alexey Green MD Creatinine [Mass/Vol] 2.0 mg/dL High 0.50-0.90 [facility] Comment on above: Performed By: #### B BASIL, CDP #### [facility] [address] [place] [address] Log Buyer: Alexey Green MD GFR/1.73 sq M.predicted among non-blacks MDRD (S/P/Bld) [Vol rate/Area] 24 mL/min/{1.73_m2} Low >60 [facility] Comment on above: Result Comment: These results [...] renal tubular secretion. Performed By: #### B BASIL, CDP #### [facility] [address] [place] [address] Log Buyer: Alexey Green MD Glucose [Mass/Vol] 108 mg/dL High 74-99 [facility] Comment on above: Performed By: #### B BASIL, CDP #### [address] [address] Log Buyer: Alexey Green MD Potassium [Moles/Vol] 5.0 mmol/L Normal 3.7-5.3 [facility] Comment on above: Result Comment: SPEC IMEN SLIGHTLY HEMOLYZED, RESULTS MAY BE ADVERSELY AFFECTED. Performed By: #### B BASIL, CDP #### [address] [address] Log Buyer: Alexey Green MD Sodium [Moles/Vol] 140 mmol/L Normal 136-145 [facility] Comment on above: Performed By: #### B BASIL, CDP #### [address] [address] Log Buyer: Alexey Green MD Urea nitrogen [Mass/Vol] 41 mg/dL High 8-23 [facility] Comment on above: Performed By: #### B BASIL, CDP #### [address] [address] Log Buyer: Alexey Green MD CBC with Diffon 07-24-2023 Abs. Basophil 0.04 k/uL Normal 0.00-0.20 [facility] Comment on above: Performed By: #### C DP #### [facility] [address] [place] [address] Log Buyer: Alexey Green MD Abs.Imm.Granulocyte 0.03 k/uL Normal 0.00-0.30 [facility] Comment on above: Performed By: #### C DP #### [address] [address] Log Buyer: Alexey Green MD Abs.Neutrophil (Seg) 4.06 k/uL Normal 1.50-8.10 [facility] Comment on above: Performed By: #### C DP #### [address] [address] Log Buyer: Alexey Green MD Basophils/100 WBC (Bld) 0 % Normal 0-2 [facility] Comment on above: Performed By: #### C DP #### [place] [address] Log Buyer: Alexey Green MD Eosinophils (Bld) [#/Vol] 0.37 10*3/uL Normal 0.00-0.44 [facility] Comment on above: Performed By: #### C DP #### [place] [address] Log Buyer: Alexey Green MD Eosinophils/100 WBC (Bld) 4 % Normal 1-4 [facility] Comment on above: Performed By: #### C DP #### [place] [address] Log Buyer: Alexey Green MD Erythrocyte distribution width (RBC) [Ratio] 13.5 % Normal 11.8-14.4 [facility] Comment on above: Performed By: #### C DP #### [place] [address] Log Buyer: Alexey Green MD Hematocrit (Bld) [Volume fraction] 32.8 % Low 36.3-47.1 [facility] Comment on above: Performed By: #### C DP #### [place] [address] Log Buyer: Alexey Green MD Hemoglobin (Bld) [Mass/Vol] 9.4 g/dL Low 11.9-15.1 [facility] Comment on above: Performed By: #### C DP #### [address] [address] Log Buyer: Alexey Green MD Immature granulocytes/100 WBC (Bld) 0 % Normal 0 [facility] Comment on above: Performed By: #### C DP #### [address] [address] Log Buyer: Alexey Green MD Lymphocytes (Bld) [#/Vol] 4.07 10*3/uL High 1.10-3.70 [facility] Comment on above: Performed By: #### C DP #### [address] [address] Log Buyer: Alexey Green MD Lymphocytes/100 WBC (Bld) 42 % Normal 24-43 [facility] Comment on above: Performed By: #### C DP #### [address] [address] Log Buyer: Alexey Green MD MCH (RBC) [Entitic mass] 31.1 pg Normal 25.2-33.5 [facility] Comment on above: Performed By: #### C DP #### [address] [address] Log Buyer: Alexey Green MD MCHC (RBC) [Mass/Vol] 28.7 g/dL Normal 28.4-34.8 [facility] Comment on above: Performed By: #### C DP #### [address] [address] Log Buyer: Alexey Green MD MCV (RBC) [Entitic vol] 108.6 fL High 82.6-102.9 [facility] Comment on above: Performed By: #### C DP #### [address] [address] Log Buyer: Alexey Green MD Monocytes (Bld) [#/Vol] 1.24 10*3/uL High 0.10-1.20 [facility] Comment on above: Performed By: #### C DP #### [address] [address] Log Buyer: Alexey Green MD Monocytes/100 WBC (Bld) 13 % High 3-12 [facility] Comment on above: Performed By: #### C DP #### [address] [address] Log Buyer: Alexey Green MD Neutrophil (Seg) 41 % Normal 36-65 [facility] Comment on above: Performed By: #### C DP #### [address] [address] Log Buyer: Alexey Green MD NRBC Automated 0.0 per 100 WBC Normal 0.0 [facility] Comment on above: Performed By: #### C DP #### [address] [address] Log Buyer: Alexey Green MD Platelet mean volume (Bld) [Entitic vol] 11.6 fL Normal 8.1-13.5 [facility] Comment on above: Performed By: #### C DP #### [address] [address] Log Buyer: Alxeey Green MD Platelets (Bld) [#/Vol] 168 10*3/uL Normal 138-453 [facility] Comment on above: Performed By: #### C DP #### [address] [address] Log Buyer: Alexey Green MD RBC (Bld) [#/Vol] 3.02 10*6/uL Low 3.95-5.11 [facility] Comment on above: Performed By: #### C DP #### [address] [address] Log Buyer: Alexey Green MD RBC morphology finding Nom (Bld) MACROCYTOSIS PRESENT Normal [facility] Comment on above: Performed By: #### C DP #### [address] [address] Log Buyer: Alexey Green MD WBC (Bld) [#/Vol] 9.8 10*3/uL Normal 3.5-11.3 [facility] Comment on above: Performed By: #### C DP #### [address] [address] Log Buyer: Alexey Green MD Abs. Basophil 0.04 k/uL Normal 0.00-0.20 [facility] Comment on above: Performed By: #### C DP #### [address] [address] Log Buyer: Alexey Green MD Abs.Imm.Granulocyte 0.03 k/uL Normal 0.00-0.30 [facility] Comment on above: Performed By: #### C DP #### [address] [address] Log Buyer: Alexey Green MD Abs.Neutrophil (Seg) 4.06 k/uL Normal 1.50-8.10 [facility] Comment on above: Performed By: #### C DP #### [address] [address] Log Buyer: Alexey Green MD Basophils/100 WBC (Bld) 0 % Normal 0-2 [facility] Comment on above: Performed By: #### C DP #### [address] [address] Log Buyer: Alexey Green MD Eosinophils (Bld) [#/Vol] 0.37 10*3/uL Normal 0.00-0.44 [facility] Comment on above: Performed By: #### C DP #### [address] [address] Log Buyer: Alexey Green MD Eosinophils/100 WBC (Bld) 4 % Normal 1-4 [facility] Comment on above: Performed By: #### C DP #### [address] [address] Log Buyer: Alexey Green MD Erythrocyte distribution width (RBC) [Ratio] 13.5 % Normal 11.8-14.4 [facility] Comment on above: Performed By: #### C DP #### [address] [address] Log Buyer: Alexey Green MD Hematocrit (Bld) [Volume fraction] 32.8 % Low 36.3-47.1 [facility] Comment on above: Performed By: #### C DP #### [address] [address] Log Buyer: Alexey Green MD Hemoglobin (Bld) [Mass/Vol] 9.4 g/dL Low 11.9-15.1 [facility] Comment on above: Performed By: #### C DP #### [address] [address] Log Buyer: Alexey Green MD Immature granulocytes/100 WBC (Bld) 0 % Normal 0 [facility] Comment on above: Performed By: #### C DP #### [address] [address] Log Buyer: Alexey Green MD Lymphocytes (Bld) [#/Vol] 4.07 10*3/uL High 1.10-3.70 [facility] Comment on above: Performed By: #### C DP #### [address] [place] [address] Log Buyer: Alexey Green MD Lymphocytes/100 WBC (Bld) 42 % Normal 24-43 [facility] Comment on above: Performed By: #### C DP #### [address] [address] Log Buyer: Alexey Green MD MCH (RBC) [Entitic mass] 31.1 pg Normal 25.2-33.5 [facility] Comment on above: Performed By: #### C DP #### [address] [address] Log Buyer: Alexey Green MD MCHC (RBC) [Mass/Vol] 28.7 g/dL Normal 28.4-34.8 [facility] Comment on above: Performed By: #### C DP #### [address] [address] Log Buyer: Alexey Green MD MCV (RBC) [Entitic vol] 108.6 fL High 82.6-102.9 [facility] Comment on above: Performed By: #### C DP #### [address] [address] Log Buyer: Alexey Green MD Monocytes (Bld) [#/Vol] 1.24 10*3/uL High 0.10-1.20 [facility] Comment on above: Performed By: #### C DP #### [address] [address] Log Buyer: Alexey Green MD Monocytes/100 WBC (Bld) 13 % High 3-12 [facility] Comment on above: Performed By: #### C DP #### [address] [address] Log Buyer: Alexey Green MD Neutrophil (Seg) 41 % Normal 36-65 [facility] Comment on above: Performed By: #### C DP #### [address] [address] Log Buyer: Alexey Green MD NRBC Automated 0.0 per 100 WBC Normal 0.0 [facility] Comment on above: Performed By: #### C DP #### [address] [address] Log Buyer: Alexey Green MD Platelet mean volume (Bld) [Entitic vol] 11.6 fL Normal 8.1-13.5 [facility] Comment on above: Performed By: #### C DP #### [address] [address] Log Buyer: Alexey Green MD Platelets (Bld) [#/Vol] 168 10*3/uL Normal 138-453 [facility] Comment on above: Performed By: #### C DP #### [address] [address] Log Buyer: Alexey Green MD RBC (Bld) [#/Vol] 3.02 10*6/uL Low 3.95-5.11 [facility] Comment on above: Performed By: #### C DP #### [address] [address] Log Buyer: Alexey Green MD RBC morphology finding Nom (Bld) MACROCYTOSIS PRESENT Normal [facility] Comment on above: Performed By: #### C DP #### [address] [address] Log Buyer: Alexey Green MD WBC (Bld) [#/Vol] 9.8 10*3/uL Normal 3.5-11.3 [facility] Comment on above: Performed By: #### C DP #### [address] [id number] Log Buyer: Alexey Green MD FLUORO FOR SURGICAL PROCEDUR ESon 07-24-2023 FLUORO FOR SURGICAL PROCEDURES Radiology exam is complete. No Radiologist dictation. Please follow up with ordering provider. Final result Normal [facility] FLUORO FOR SURGICAL PROCEDURES Radiology exam is complete. No Radiologist dictation. Please follow up with ordering provider. Final result Normal [facility] Glucose,Whole Bloodon 2023 Glucose [Mass/Vol] 102 mg/dL Normal 65-105 [facility] Glucose [Mass/Vol] 102 mg/dL Normal 65-105 [facility] Hgb/Hcton 07-24-2023 Hematocrit (Bld) [Volume fraction] 36.4 % Normal 36.3-47.1 [facility] Comment on above: Performed By: #### B MPX #### [facility] [address] [place] [address] Log Buyer: Alexey Green MD Hemoglobin (Bld) [Mass/Vol] 10.6 g/dL Low 11.9-15.1 [facility] Comment on above: Performed By: #### B MPX #### [facility] [address] [place] [address] Log Buyer: Alexey Green MD Hematocrit (Bld) [Volume fraction] 36.4 % Normal 36.3-47.1 [facility] Comment on above: Performed By: #### U ALYSSA ADAEMS, YEIMI #### [facility] [address] [place] [address] Log Buyer: Alexey Green MD Hemoglobin (Bld) [Mass/Vol] 10.6 g/dL Low 11.9-15.1 [facility] Comment on above: Performed By: #### U ALYSSA ADAMES, YEIMI #### [facility] [address] [place] [address] Log Buyer: Alexey Green MD Type + Screenon 07-24-2023 Type + Screen Sample Expiration 07/26/2023,2359 Arm Band Number [id number] ABO/Rh(D) A POSITIVE Antibody Screen NEGATIVE Unit Number [id number] Blood Component Type Leukocyte Reduced Red Cell Unit Division 00 Status of Unit TRANSFUSED Transfusion Status OK TO TRANSFUSE Crossmatch Result COMPATIBLE Normal [facility] Comment on above: Performed By: #### U RNA, URTP, URCRE, UEOS #### [facility] [address] [place], [place] [id number] Log Buyer: Alexey Green MD Type + Screen Sample Expiration 07/26/2023,2359 Arm Band Number BE [id number] ABO/Rh(D) A POSITIVE Antibody Screen NEGATIVE Unit Number [id number] Blood Component Type Leukocyte Reduced Red Cell Unit Division 00 Status of Unit TRANSFUSED Transfusion Status OK TO TRANSFUSE Crossmatch Result COMPATIBLE Normal [facility] Comment on above: Performed By: #### U A, UMICAO #### [facility] [address] [place] [address] [id number] Log Buyer: Alexey Green MD XR FEMUR LEFT (MIN [...] Will Ramirez MD 07/24/23 Final result Normal [facility] XR FEMUR LEFT (MIN 2 VIEWS) EXAMINATION: [...] Will Ramirez MD 07/24/23 Final result Normal [facility] Albuminon 07-23-2023 Albumin [Mass/Vol] 3.6 g/dL Normal 3.5-5.2 [facility] Comment on above: Performed By: #### U RNA, URTP, URCRE, UEOS #### [facility] [address] [place] [address] Log Buyer: Alexey Green MD Albumin [Mass/Vol] 3.6 g/dL Normal 3.5-5.2 [facility] Comment on above: Performed By: #### U A, UMICAO #### [facility] [address] [place] [address] Log Buyer: Alexey Green MD CT CERVICAL SPINE WO [...] Wilber Robertson MD 07/23/23 Final result Normal [facility] CT CERVICAL SPINE WO CONTRAST EXAMINATION: CT [...] Wilber Robertson MD 07/23/23 Final result Normal [facility] CT CHEST ABDOMEN PELVIS W CO NTRASTon [...] Will Ramirez MD 07/23/23 Final result Normal [facility] CT CHEST ABDOMEN PELVIS W CONTRAST EXAMINATION: [...] Will Ramirez MD 07/23/23 Final result Normal [facility] CT HEAD WO CONTRASTon 2023 CT HEAD [...] Wilber Robertson MD 07/23/23 Final result Normal [facility] CT HEAD WO CONTRAST EXAMINATION: CT OF [...] Wilber Robertson MD 07/23/23 Final result Normal [facility] CT LUMBAR SPINE BONY RECONST RUCTIONon 07-23-2023 [...] destructive lesion is seen. DEGENERATIVE CHANGES: Diffuse iwhy-[id number] degenerative changes of the lumbar spine predominate [...] Will Ramirez MD 07/23/23 Final result Normal [facility] CT LUMBAR SPINE BONY RECONSTRUCTION EXAMINATION: CT [...] destructive lesion is seen. DEGENERATIVE CHANGES: Diffuse lhbv-[id number] degenerative changes of the lumbar spine predominate [...] Will Ramirez MD 07/23/23 Final result Normal [facility] CT THORACIC SPINE BONY RECON STRUCTIONon 07-23-2023 [...] Will Ramirez MD 07/23/23 Final result Normal [facility] CT THORACIC SPINE BONY RECONSTRUCTION EXAMINATION: CT [...] Will Ramirez MD 07/23/23 Final result Normal [facility] Drug Scr, Abuse, Uron 2023 Fentanyl, Urine Positive Abnormal NEG [facility] Comment on above: Result Comment: Cuto ff: 5 ng/ml Performed By: #### U RNA, URTP, URCRE, UEOS #### [facility] [address] [place] [address] Log Buyer: Alexey Green MD Interpretive Info Assay provides rapid clinical screening only. Presumptive positive results for Normal [facility] Comment on above: Result Comment: lega l purposes should be confirmed by another method. To request confirmation, please call the lab within 7 days of sample submission. Performed By: #### U RNA, URTP, URCRE, UEOS #### [facility] [address] [address] Log Buyer: Alexey Green MD Amphetamine(s),Ur Negative Normal NEG [facility] Comment on above: Result Comment: Cuto ff: 1000 ng/mL Performed By: #### U RNA, URTP, URCRE, UEOS #### [address] [address] Log Buyer: Alexey Green MD Barbiturate(s),Ur Negative Normal NEG [facility] Comment on above: Result Comment: Cuto ff: 200 ng/ml Performed By: #### U RNA, URTP, URCRE, UEOS #### [address] [address] Log Buyer: Alexey Green MD Benzodiazepine(s) Negative Normal NEG [facility] Comment on above: Result Comment: Cuto ff: 200 ng/ml Performed By: #### U RNA, URTP, URCRE, UEOS #### [facility] [address] [place] [address] Log Buyer: Alexey Green MD Cannabinoid(s),Ur Negative Normal NEG [facility] Comment on above: Result Comment: Cuto ff: 50 ng/ml Performed By: #### U RNA, URTP, URCRE, UEOS #### [address] [address] Log Buyer: Alexey Green MD Cocaine Metabolite Negative Normal NEG [facility] Comment on above: Result Comment: Cuto ff: 300 ng/ml Performed By: #### U RNA, URTP, URCRE, UEOS #### [facility] [address] [place] [address] Log Buyer: Alexey Green MD Methadone Ql (U) Negative Normal NEG [facility] Comment on above: Result Comment: Cuto ff: 300 ng/ml Performed By: #### U RNA, URTP, URCRE, UEOS #### [address] [address] Log Buyer: Alexey Green MD Opiate(s), Ur Negative Normal NEG [facility] Comment on above: Result Comment: Cuto ff: 300 ng/ml Performed By: #### U RNA, URTP, URCRE, UEOS #### [address] [address] Log Buyer: Alexey Green MD Oxycodone, Urine Negative Normal NEG [facility] Comment on above: Result Comment: Cuto ff: 100 ng/ml Performed By: #### U RNA, URTP, URCRE, UEOS #### [address] [address] Log Buyer: Alexey Green MD Phencyclidine, Ur Negative Normal NEG [facility] Comment on above: Result Comment: Cuto ff: 25 ng/ml Performed By: #### U RNA, URTP, URCRE, UEOS #### [address] [address] Log Buyer: Alexey Green MD Fentanyl, Urine Positive Abnormal NEG [facility] Comment on above: Result Comment: Cuto ff: 5 ng/ml Performed By: #### U MICAO, UA, YEIMI #### [address] [address] Log Buyer: Alexey Green MD Interpretive Info Assay provides rapid clinical screening only. Presumptive positive results for Normal [facility] Comment on above: Result Comment: lega l purposes should be confirmed by another method. To request confirmation, please call the lab within 7 days of sample submission. Performed By: #### U MICAO, UA, YEIMI #### [address] [address] Log Buyer: Alexey Green MD Amphetamine(s),Ur Negative Normal NEG [facility] Comment on above: Result Comment: Cuto ff: 1000 ng/mL Performed By: #### U MICAO, UA, YEIMI #### [facility] [address] [place] [address] Log Buyer: Alexey Green MD Barbiturate(s),Ur Negative Normal NEG [facility] Comment on above: Result Comment: Cuto ff: 200 ng/ml Performed By: #### U MICAO, UA, YEIMI #### [employer] [address] [place] [address] Log Buyer: Alexey Green MD Benzodiazepine(s) Negative Normal NEG [facility] Comment on above: Result Comment: Cuto ff: 200 ng/ml Performed By: #### U MICAO, UA, YEIMI #### [facility] [address] [address] Log Buyer: Alexey Green MD Cannabinoid(s),Ur Negative Normal NEG [facility] Comment on above: Result Comment: Cuto ff: 50 ng/ml Performed By: #### U MICAO, UA, YEIMI #### [facility] [address] [place] [address] Log Buyer: Alexey Green MD Cocaine Metabolite Negative Normal NEG [facility] Comment on above: Result Comment: Cuto ff: 300 ng/ml Performed By: #### U MICAO, UA, YEIMI #### [employer] [address] [place] [address] Log Buyer: Alexey Green MD Methadone Ql (U) Negative Normal NEG [facility] Comment on above: Result Comment: Cuto ff: 300 ng/ml Performed By: #### U MICAO, UA, YEIMI #### [employer] [address] [place] [address] Log Buyer: Alexey Green MD Opiate(s), Ur Negative Normal NEG [facility] Comment on above: Result Comment: Cuto ff: 300 ng/ml Performed By: #### U MICAO, UA, YEIMI #### [address] [address] Log Buyer: Alexey Green MD Oxycodone, Urine Negative Normal NEG [facility] Comment on above: Result Comment: Cuto ff: 100 ng/ml Performed By: #### U MICAO, UA, YEIMI #### [address] [address] Log Buyer: Alexey Green MD Phencyclidine, Ur Negative Normal NEG [facility] Comment on above: Result Comment: Cuto ff: 25 ng/ml Performed By: #### U MICAO, UA, YEIMI #### [address] [address] Log Buyer: Alexey Green MD Gl Hemostasis TEG w/Lysison 07-23-2023 Fibrinogen, Func TEG 41.5 mm High 15.0-32.0 [facility] Comment on above: Performed By: #### B MPX #### [address] [address] Log Buyer: Alexey Green MD LY30 (Lysis) TEG 0.0 % Normal 0.0-2.6 [facility] Comment on above: Performed By: #### B MPX #### [address] [address] Log Buyer: Alexey Green MD MA Rapid TEG 71.7 mm High 52.0-70 [facility] Comment on above: Performed By: #### B MPX #### [address] [address] Log Buyer: Alexey Green MD R(Reaction Time) TEG 4.0 min Low 4.6-9.1 [facility] Comment on above: Performed By: #### B MPX #### [facility] [address] [place] [address] Log Buyer: Alexey Green MD Fibrinogen, Func TEG 41.5 mm High 15.0-32.0 [facility] Comment on above: Performed By: #### B MP, CDP #### [address] [address] Log Buyer: Alexey Green MD LY30 (Lysis) TEG 0.0 % Normal 0.0-2.6 [facility] Comment on above: Performed By: #### B MP, CDP #### [facility] [address] [place] [address] Log Buyer: Alexey Green MD MA Rapid TEG 71.7 mm High 52.0-70 [facility] Comment on above: Performed By: #### B MP, CDP #### [facility] [address] [place] [address] Log Buyer: Alexey Green MD R(Reaction Time) TEG 4.0 min Low 4.6-9.1 [facility] Comment on above: Performed By: #### B MP, CDP #### [address] [address] Log Buyer: Alexey Green MD Glucose,Whole Bloodon 2023 Glucose [Mass/Vol] 154 mg/dL High 65-105 [facility] Glucose [Mass/Vol] 116 mg/dL High 65-105 [facility] Glucose [Mass/Vol] 154 mg/dL High 65-105 [facility] Glucose [Mass/Vol] 116 mg/dL High 65-105 [facility] Trauma Profileon 07-23-2023 Anion gap [Moles/Vol] 8 mmol/L Low 9-16 [facility] Comment on above: Performed By: #### U RNA, URTP, URCRE, UEOS #### [address] [address] Log Buyer: Alexey Green MD Chloride [Moles/Vol] 111 mmol/L High 98-107 [facility] Comment on above: Performed By: #### U RNA, URTP, URCRE, UEOS #### [address] [address] Log Buyer: Alexey Green MD CO2 [Moles/Vol] 24 mmol/L Normal 20-31 [facility] Comment on above: Performed By: #### U RNA, URTP, URCRE, UEOS #### [address] [address] Log Buyer: Alexey Green MD Creatinine [Mass/Vol] 2.2 mg/dL High 0.50-0.90 [facility] Comment on above: Performed By: #### U RNA, URTP, URCRE, UEOS #### [address] [address] Log Buyer: Alexey Green MD Ethanol [Mass/Vol] mg/dL Normal <10 [facility] Comment on above: Performed By: #### U RNA, URTP, URCRE, UEOS #### [address] [address] Log Buyer: Alexey Green MD Ethanol percent <0.010 Normal <0.010 [facility] Comment on above: Performed By: #### U RNA, URTP, URCRE, UEOS #### [address] [address] Log Buyer: Alexey Green MD GFR/1.73 sq M.predicted among non-blacks MDRD (S/P/Bld) [Vol rate/Area] 22 mL/min/{1.73_m2} Low >60 [facility] Comment on above: Result Comment: These results [...] #### U RNA, URTP, URCRE, UEOS #### [address] [address] Log Buyer: Alexey Green MD Glucose [Mass/Vol] 112 mg/dL High 74-99 [facility] Comment on above: Performed By: #### U RNA, URTP, URCRE, UEOS #### [address] [address] Log Buyer: Alexey Green MD Potassium [Moles/Vol] 4.5 mmol/L Normal 3.7-5.3 [facility] Comment on above: Performed By: #### U RNA, URTP, URCRE, UEOS #### [address] [address] Log Buyer: Alexey Green MD Sodium [Moles/Vol] 143 mmol/L Normal 136-145 [facility] Comment on above: Performed By: #### U RNA, URTP, URCRE, UEOS #### [facility] [address] [place] [address] Log Buyer: Alexey Green MD Urea nitrogen [Mass/Vol] 44 mg/dL High 8-23 [facility] Comment on above: Performed By: #### U RNA, URTP, URCRE, UEOS #### [facility] [address] [place] [address] Log Buyer: Alexey Green MD aPTT Coag (Bld) [Time] 29.0 s Normal 23.0-36.5 [facility] Comment on above: Result Comment: IV Heparin Therapy Range: 66.0-92.0 sec Performed By: #### U RNA, URTP, URCRE, UEOS #### [address] [address] Log Buyer: Alexey Green MD INR Coag (PPP) [Relative time] 1.8 {INR} Normal [facility] Comment on above: Result Comment: Therapeutic Range: Moderate Anticoagulant Intensity: INR = 2.0-3.0 High Anticoagulant Intensity: INR = 2.5-3.5 Performed By: #### U RNA, URTP, URCRE, UEOS #### [place] [address] Log Buyer: Alexey Green MD PT Coag (PPP) [Time] 20.6 s High 11.7-14.9 [facility] Comment on above: Performed By: #### U RNA, URTP, URCRE, UEOS #### [place] [address] Log Buyer: Alexey Green MD Body Temp. 37.0 Normal [facility] Comment on above: Performed By: #### U RNA, URTP, URCRE, UEOS #### [place] [address] Log Buyer: Alexey Green MD Carboxy Hgb 1.6 % Normal 0-5 [facility] Comment on above: Result Comment: Reference Range: Non-Smokers 0-2% Average Smoker 2-4% Heavy Smoker <10% Performed By: #### U RNA, URTP, URCRE, UEOS #### [address] [address] Log Buyer: Alexey Green MD FIO2 INFORMATION NOT PROVIDED [facility] Comment on above: Performed By: #### U RNA, URTP, URCRE, UEOS #### [address] [address] Log Buyer: Alexey Green MD HCO3 (Bld) [Moles/Vol] 25.6 mmol/L Normal 24-30 [facility] Comment on above: Performed By: #### U RNA, URTP, URCRE, UEOS #### [address] [address] Log Buyer: Alexey Green MD Negative Base Excess 2.0 mmol/L Normal 0.0-2.0 [facility] Comment on above: Performed By: #### U RNA, URTP, URCRE, UEOS #### [address] [address] Log Buyer: Alexey Green MD Oxygen saturation in Blood 67.2 % Normal 60.0-85.0 [facility] Comment on above: Performed By: #### U RNA, URTP, URCRE, UEOS #### [address] [address] Log Buyer: Alexey Green MD pCO2 59.6 mm Hg High 39-55 [facility] Comment on above: Performed By: #### U RNA, URTP, URCRE, UEOS #### [address] [address] Log Buyer: Alexey Green MD pH (Bld) 7.255 [pH] Low 7.320-7.420 [facility] Comment on above: Performed By: #### U RNA, URTP, URCRE, UEOS #### [address] [address] Log Buyer: Alexey Green MD pO2 35.4 mm Hg Normal 30-50 [facility] Comment on above: Performed By: #### U RNA, URTP, URCRE, UEOS #### [address] [address] Log Buyer: Alexey Green MD Erythrocyte distribution width (RBC) [Ratio] 13.4 % Normal 11.8-14.4 [facility] Comment on above: Performed By: #### U RNA, URTP, URCRE, UEOS #### [address] [address] Log Buyer: Alexey Green MD Hematocrit (Bld) [Volume fraction] 39.3 % Normal 36.3-47.1 [facility] Comment on above: Performed By: #### U RNA, URTP, URCRE, UEOS #### [address] [address] Log Buyer: Alexey Green MD Hemoglobin (Bld) [Mass/Vol] 11.8 g/dL Low 11.9-15.1 [facility] Comment on above: Performed By: #### U RNA, URTP, URCRE, UEOS #### [address] [address] Log Buyer: Alexey Green MD MCH (RBC) [Entitic mass] 31.4 pg Normal 25.2-33.5 [facility] Comment on above: Performed By: #### U RNA, URTP, URCRE, UEOS #### [address] [address] Log Buyer: Alexey Green MD MCHC (RBC) [Mass/Vol] 30.0 g/dL Normal 28.4-34.8 [facility] Comment on above: Performed By: #### U RNA, URTP, URCRE, UEOS #### [address] [address] Log Buyer: Alexey Green MD MCV (RBC) [Entitic vol] 104.5 fL High 82.6-102.9 [facility] Comment on above: Performed By: #### U RNA, URTP, URCRE, UEOS #### [address] [address] Log Buyer: Alexey Green MD NRBC Automated 0.0 per 100 WBC Normal 0.0 [facility] Comment on above: Performed By: #### U RNA, URTP, URCRE, UEOS #### [address] [address] Log Buyer: Alexey Green MD Platelet mean volume (Bld) [Entitic vol] 11.5 fL Normal 8.1-13.5 [facility] Comment on above: Performed By: #### U RNA, URTP, URCRE, UEOS #### [address] [address] Log Buyer: Alexey Green MD Platelets (Bld) [#/Vol] 198 10*3/uL Normal 138-453 [facility] Comment on above: Performed By: #### U RNA, URTP, URCRE, UEOS #### [address] [address] Log Buyer: Alexey Green MD RBC (Bld) [#/Vol] 3.76 10*6/uL Low 3.95-5.11 [facility] Comment on above: Performed By: #### U RNA, URTP, URCRE, UEOS #### [address] [address] Log Buyer: Alexey Green MD WBC (Bld) [#/Vol] 10.4 10*3/uL Normal 3.5-11.3 [facility] Comment on above: Performed By: #### U RNA, URTP, URCRE, UEOS #### [address] [address] Log Buyer: Alexey Green MD Blood Bank BILL FOR SERVICES PERFORMED Normal [facility] Comment on above: Performed By: #### U RNA, URTP, URCRE, UEOS #### [facility] [address] [place] [address] Log Buyer: Alexey Green MD Anion gap [Moles/Vol] 8 mmol/L Low 9-16 [facility] Comment on above: Performed By: #### U A, UMICAO #### [facility] [address] [place] [address] Log Buyer: Alexey Green MD Chloride [Moles/Vol] 111 mmol/L High 98-107 [facility] Comment on above: Performed By: #### U A UMICAO #### [address] [address] Log Buyer: Alexey Green MD CO2 [Moles/Vol] 24 mmol/L Normal 20-31 [facility] Comment on above: Performed By: #### U A, UMICAO #### [address] [address] Log Buyer: Alexey Green MD Creatinine [Mass/Vol] 2.2 mg/dL High 0.50-0.90 [facility] Comment on above: Performed By: #### U A, UMICAO #### [facility] [address] [place] [address] Log Buyer: Alexey Green MD Ethanol [Mass/Vol] mg/dL Normal <10 [facility] Comment on above: Performed By: #### U A UMICAO #### [facility] [address] [place] [address] Log Buyer: Alexey Green MD Ethanol percent <0.010 Normal <0.010 [facility] Comment on above: Performed By: #### U A, BRIDGETO #### [facility] [address] [place] [address] Log Buyer: Alexey Green MD GFR/1.73 sq M.predicted among non-blacks MDRD (S/P/Bld) [Vol rate/Area] 22 mL/min/{1.73_m2} Low >60 [facility] Comment on above: Result Comment: These results [...] renal tubular secretion. Performed By: #### U Vinh UMKIMO #### [facility] [address] [place] [address] Log Buyer: Alexey Green MD Glucose [Mass/Vol] 112 mg/dL High 74-99 [facility] Comment on above: Performed By: #### U BRIDGET JusticeO #### [facility] [address] [place] [address] Log Buyer: Alexey Green MD Potassium [Moles/Vol] 4.5 mmol/L Normal 3.7-5.3 [facility] Comment on above: Performed By: #### U A, BRIDGETO #### [facility] [address] [place] [address] Log Buyer: Alexey Green MD Sodium [Moles/Vol] 143 mmol/L Normal 136-145 [facility] Comment on above: Performed By: #### U ABRIDGETO #### [facility] [address] [place] [address] Log Buyer: Alexey Green MD Urea nitrogen [Mass/Vol] 44 mg/dL High 8-23 [facility] Comment on above: Performed By: #### U A, JACQUIEICAO #### [facility] [address] [place] [address] Log Buyer: Alexey Green MD aPTT Coag (Bld) [Time] 29.0 s Normal 23.0-36.5 [facility] Comment on above: Result Comment: IV Heparin Therapy Range: 66.0-92.0 sec Performed By: #### U AVIKTOR #### [facility] [address] [place] [address] Log Buyer: Alexey Green MD INR Coag (PPP) [Relative time] 1.8 {INR} Normal [facility] Comment on above: Result Comment: Therapeutic Range: Moderate Anticoagulant Intensity: INR = 2.0-3.0 High Anticoagulant Intensity: INR = 2.5-3.5 Performed By: #### U AVIKTOR #### [facility] [address] [place] [address] Log Buyer: Alexey Green MD PT Coag (PPP) [Time] 20.6 s High 11.7-14.9 [facility] Comment on above: Performed By: #### U VIKTOR Justice #### [facility] [address] [place] [address] Log Buyer: Alexey Green MD Body Temp. 37.0 Normal [facility] Comment on above: Performed By: #### U AJACQUIEICAO #### [facility] [address] [place] [address] Log Buyer: Alexey Green MD Carboxy Hgb 1.6 % Normal 0-5 [facility] Comment on above: Result Comment: Reference Range: Non-Smokers 0-2% Average Smoker 2-4% Heavy Smoker <10% Performed By: #### U A UMICAO #### [facility] [address] [place] [address] Log Buyer: Alexey Green MD FIO2 INFORMATION NOT PROVIDED Normal [facility] Comment on above: Performed By: #### VIKTOR Espinoza #### [facility] [address] [place] [address] Log Buyer: Alexey Green MD HCO3 (Bld) [Moles/Vol] 25.6 mmol/L Normal 24-30 [facility] Comment on above: Performed By: #### U VIKTOR Justice #### [facility] [address] [place] [address] Log Buyer: Alexey Green MD Negative Base Excess 2.0 mmol/L Normal 0.0-2.0 [facility] Comment on above: Performed By: #### BRIDGET EspinozaO #### [facility] [address] [place] [address] Log Buyer: Alexey Green MD Oxygen saturation in Blood 67.2 % Normal 60.0-85.0 [facility] Comment on above: Performed By: #### BRIDGET EspinozaO #### [address] [address] Log Buyer: Alexey Green MD pCO2 59.6 mm Hg High 39-55 [facility] Comment on above: Performed By: #### BRIDGET EspinozaO #### [facility] [address] [place] [address] Log Buyer: Alexey Green MD pH (Bld) 7.255 [pH] Low 7.320-7.420 [facility] Comment on above: Performed By: #### BRIDGET EspinozaO #### [facility] [address] [place] [address] Log Buyer: Alexey Green MD pO2 35.4 mm Hg Normal 30-50 [facility] Comment on above: Performed By: #### U BRIDGET JusticeO #### [facility] [address] [place] [address] Log Buyer: Alexey Green MD Erythrocyte distribution width (RBC) [Ratio] 13.4 % Normal 11.8-14.4 [facility] Comment on above: Performed By: #### U AVIKTOR #### [facility] [address] [place] [address] Log Buyer: Alexey Green MD Hematocrit (Bld) [Volume fraction] 39.3 % Normal 36.3-47.1 [facility] Comment on above: Performed By: #### U AVIKTOR #### [facility] [address] [place] [address] Log Buyer: Alexey Green MD Hemoglobin (Bld) [Mass/Vol] 11.8 g/dL Low 11.9-15.1 [facility] Comment on above: Performed By: #### U ABRIDGETO #### [facility] [address] [place] [address] Log Buyer: Alexey Green MD MCH (RBC) [Entitic mass] 31.4 pg Normal 25.2-33.5 [facility] Comment on above: Performed By: #### U AVIKTOR #### [facility] [address] [place] [address] Log Buyer: Alexey Green MD MCHC (RBC) [Mass/Vol] 30.0 g/dL Normal 28.4-34.8 [facility] Comment on above: Performed By: #### U ABRIDGETO #### [facility] [address] [place] [address] Log Buyer: Alexey Green MD MCV (RBC) [Entitic vol] 104.5 fL High 82.6-102.9 [facility] Comment on above: Performed By: #### U ABRIDGETO #### [address] [address] Log Buyer: Alexey Green MD NRBC Automated 0.0 per 100 WBC Normal 0.0 [facility] Comment on above: Performed By: #### U A, UMICAO #### [address] [address] Log Buyer: Alexey Green MD Platelet mean volume (Bld) [Entitic vol] 11.5 fL Normal 8.1-13.5 [facility] Comment on above: Performed By: #### U A, UMICAO #### [address] [address] Log Buyer: Alexey Green MD Platelets (Bld) [#/Vol] 198 10*3/uL Normal 138-453 [facility] Comment on above: Performed By: #### U A, UMICAO #### [address] [address] Log Buyer: Alexey Green MD RBC (Bld) [#/Vol] 3.76 10*6/uL Low 3.95-5.11 [facility] Comment on above: Performed By: #### U A, UMICAO #### [address] [address] Log Buyer: Alexey Green MD WBC (Bld) [#/Vol] 10.4 10*3/uL Normal 3.5-11.3 [facility] Comment on above: Performed By: #### U A, UMICAO #### [address] [address] Log Buyer: Alexey Green MD Blood Bank BILL FOR SERVICES PERFORMED Normal [facility] Comment on above: Performed By: #### U A, UMICAO #### [facility] [address] [place] [address] Log Buyer: Alexey Green MD Urinalysis, Routineon 2023 Bilirubin, SemiQt,Ur Negative Normal NEG [facility] Comment on above: Performed By: #### U RNA, URTP, URCRE, UEOS #### [address] [address] Log Buyer: Alexey Green MD Blood, Urine Negative Normal NEG [facility] Comment on above: Performed By: #### U RNA, URTP, URCRE, UEOS #### [address] [address] Log Buyer: Alexey Green MD Clarity (U) Clear Normal CLEAR [facility] Comment on above: Performed By: #### U RNA, URTP, URCRE, UEOS #### [address] [address] Log Buyer: Alexey Green MD Color (U) Yellow Normal YEL [facility] Comment on above: Performed By: #### U RNA, URTP, URCRE, UEOS #### [address] [address] Log Buyer: Alexey Green MD Glucose Ql (U) Negative Normal NEG [facility] Comment on above: Performed By: #### U RNA, URTP, URCRE, UEOS #### [address] [address] Log Buyer: Alexey Green MD Ketones Ql (U) Negative Normal NEG [facility] Comment on above: Performed By: #### U RNA, URTP, URCRE, UEOS #### [address] [address] Log Buyer: Alexey Green MD Leukocyte esterase Test strip Ql (U) SMALL Abnormal NEG [facility] Comment on above: Performed By: #### U RNA, URTP, URCRE, UEOS #### [address] [address] Log Buyer: Alexey Green MD Nitrite,Ur Negative Normal NEG [facility] Comment on above: Performed By: #### U RNA, URTP, URCRE, UEOS #### [address] [address] Log Buyer: Alexey Green MD PH,Ur 5.5 Normal 5.0-8.0 [facility] Comment on above: Performed By: #### U RNA, URTP, URCRE, UEOS #### [address] [address] Log Buyer: Alexey Green MD Protein Ql (U) TRACE Abnormal NEG [facility] Comment on above: Performed By: #### U RNA, URTP, URCRE, UEOS #### [place] [address] Log Buyer: Alexey Green MD Spec. [place],Ur 1.029 Normal 1.005-1.030 [facility] Comment on above: Performed By: #### U RNA, URTP, URCRE, UEOS #### [address] [address] Log Buyer: Alexey Green MD Urobilinogen,Ur Normal Normal 0.0-1.0 [facility] Comment on above: Performed By: #### U RNA, URTP, URCRE, UEOS #### [place] [address] Log Buyer: Alexey Green MD Bilirubin, SemiQt,Ur Negative Normal NEG [facility] Comment on above: Performed By: #### U MICAO, UA, YEIMI #### [place] [address] Log Buyer: Alexey Green MD Blood, Urine Negative Normal NEG [facility] Comment on above: Performed By: #### U MICAO, UA, YEIMI #### [facility] [address] [place] [address] Log Buyer: Alexey Green MD Clarity (U) Clear Normal CLEAR [facility] Comment on above: Performed By: #### U MICAO, UA, YEIMI #### [facility] [address] [place] [address] Log Buyer: Alexey Green MD Color (U) Yellow Normal YEL [facility] Comment on above: Performed By: #### U MICAO, UA, YEIMI #### [address] [address] Log Buyer: lAexey Green MD Glucose Ql (U) Negative Normal NEG [facility] Comment on above: Performed By: #### U MICAO, UA, YEIMI #### [address] [address] Log Buyer: Alexey Green MD Ketones Ql (U) Negative Normal NEG [facility] Comment on above: Performed By: #### U MICAO, UA, YEIMI #### [address] [address] Log Buyer: Alexey Green MD Leukocyte esterase Test strip Ql (U) SMALL Abnormal NEG [facility] Comment on above: Performed By: #### U MICAO, UA, YEIMI #### [facility] [address] [place] [address] Log Buyer: Alexey Green MD Nitrite,Ur Negative Normal NEG [facility] Comment on above: Performed By: #### U MICAO, UA, YEIMI #### [facility] [address] [place] [address] Log Buyer: Alexey Green MD PH,Ur 5.5 Normal 5.0-8.0 [facility] Comment on above: Performed By: #### U MICAO, UA, YEIMI #### [address] [address] Log Buyer: Alexey Green MD Protein Ql (U) TRACE Abnormal NEG [facility] Comment on above: Performed By: #### U MICAO, UA, YEIMI #### [address] [address] Log Buyer: Alexey Green MD Spec. [place],Ur 1.029 Normal 1.005-1.030 [facility] Comment on above: Performed By: #### U MICAO, UA, YEIMI #### [address] [address] Log Buyer: Alexey Green MD Urobilinogen,Ur Normal Normal 0.0-1.0 [facility] Comment on above: Performed By: #### U MICAO, UA, YEIMI #### [address] [address] Log Buyer: Alexey Green MD Urinalysis,Microon 4 Bacteria MANY Abnormal NONE [facility] Comment on above: Performed By: #### U RNA, URTP, URCRE, UEOS #### [address] [address] Log Buyer: Alexey Green MD Casts None Normal 0-8 [facility] Comment on above: Result Comment: Refe rence range defined for non-centrifuged specimen. Performed By: #### U RNA, URTP, URCRE, UEOS #### [address] [address] Log Buyer: Alexey Green MD Epithelial cells LM Ql (Urine sed) None Normal 0-5 [facility] Comment on above: Performed By: #### U RNA, URTP, URCRE, UEOS #### [address] [address] Log Buyer: Alexey Green MD Urine RBC's None Normal 0-4 [facility] Comment on above: Result Comment: Refe rence range defined for non-centrifuged specimen. Performed By: #### U RNA, URTP, URCRE, UEOS #### [address] [address] Log Buyer: Alexey Green MD Urine WBC's 20 TO 50 Normal 0-[address] [place] [address] Comment on above: Performed By: #### U RNA, URTP, URCRE, UEOS #### [address] [address] Log Buyer: Alexey Green MD Bacteria MANY Abnormal NONE [facility] Comment on above: Performed By: #### U MICAO, UA, YEIMI #### [address] [address] Log Buyer: Alexey Green MD Casts None Normal 0-8 [facility] Comment on above: Result Comment: Refe rence range defined for non-centrifuged specimen. Performed By: #### U MICAO, UA, YEIMI #### [address] [address] Log Buyer: Alexey Green MD Epithelial cells LM Ql (Urine sed) None Normal 0-5 [facility] Comment on above: Performed By: #### U MICAO, UA, YEIMI #### [address] [address] Log Buyer: Alexey Green MD Urine RBC's None Normal 0-4 [facility] Comment on above: Result Comment: Refe rence range defined for non-centrifuged specimen. Performed By: #### U ALYSSA ADAMES, YEIMI #### [facility] [address] [address] Log Buyer: Alexey Green MD Urine WBC's 20 TO 50 Normal 0-5 [facility] Comment on above: Performed By: #### U ALYSSA ADAMES, YEIMI #### [facility] [address] [place] [address] Log Buyer: Alexey Green MD Vitamin D 25 OHon 07-23-2023 Vitamin D 25 OH 26.9 ng/mL Low 30.0-100.0 [facility] Comment on above: Result Comment: Reference Range: Vitamin D status Range Deficiency <20 ng/mL Mild Deficiency 20-30 ng/mL Sufficiency 30-100 ng/mL Toxicity >100 ng/mL Performed By: #### B MPX #### [address] [address] Log Buyer: Alexey Green MD Vitamin D 25 OH 26.9 ng/mL Low 30.0-100.0 [facility] Comment on above: Result Comment: Reference Range: Vitamin D status Range Deficiency <20 ng/mL Mild Deficiency 20-30 ng/mL Sufficiency 30-100 ng/mL Toxicity >100 ng/mL Performed By: #### B MP, CDP #### [address] [address] Log Buyer: Alexey Green MD XR FEMUR LEFT (MIN [...] Will Ramirez MD 07/23/23 Final result Normal [facility] XR FEMUR LEFT (MIN 2 VIEWS) EXAMINATION: [...] Will Ramirez MD 07/23/23 Final result Normal [facility] XR HIP 2-3 VW W PELVIS LEFTo [...] by: Will Ramirez MD Signed by: Will Ramirze MD 07/23/23 Final result Normal [facility] XR HIP 2-3 VW W PELVIS LEFT [...] Will Ramirez MD 07/23/23 Final result Normal [facility] XR HIP LEFT (2-3 VIEWS)on XR HIP [...] Will Ramirez MD 07/23/23 Final result Normal [facility] XR HIP LEFT (2-3 VIEWS) EXAMINATION: ONE [...] Will Ramirez MD 07/23/23 Final result Normal [facility] XR KNEE LEFT (1-2 VIEWS)on 0 07-23-2023 [...] Interpreted by: Will Ramirez MD Signed by: iWll Ramirez MD 07/23/23 Final result Normal [facility] XR KNEE LEFT (1-2 VIEWS) EXAMINATION: ONE [...] Will Ramirez MD 07/23/23 Final result Normal [facility] XR KNEE LEFT (3 VIEWS)on XR KNEE [...] Will Ramirez MD 07/23/23 Final result Normal [facility] XR KNEE LEFT (3 VIEWS) EXAMINATION: ONE [...] Will Ramirez MD 07/23/23 Final result Normal [facility] Brain Natri. Peptideon 07-02 Natriuretic peptide B (Bld) [Mass/Vol] 1489 pg/mL High 0-300 [facility] Comment on above: Result Comment: An a ge-independent cutoff point of 300 pg/ml has a 98% negative predictive value excluding acute heart failure. Performed By: #### B BASIL, FARHANA #### [facility] [address] [place] [id number] Log Buyer: Alexey Green MD CBC with Diffon 07-03-2023 Abs. Basophil 0.06 k/uL Normal 0.00-0.20 [facility] Comment on above: Performed By: #### B FARHANA GRACIA #### [address] [place] [address] Log Buyer: Alexey Green MD Abs.Imm.Granulocyte <0.03 Normal 0.00-0.30 [facility] Comment on above: Performed By: #### B BASIL, CDP #### [address] [place] [address] Log Buyer: Alexey Green MD Abs.Neutrophil (Seg) 3.23 k/uL Normal 1.50-8.10 [facility] Comment on above: Performed By: #### B BASIL, CDP #### [address] [address] Log Buyer: Alexey Green MD Basophils/100 WBC (Bld) 1 % Normal 0-2 [facility] Comment on above: Performed By: #### B BASIL, CDP #### [address] [address] Log Buyer: Alexey Green MD Eosinophils (Bld) [#/Vol] 0.67 10*3/uL High 0.00-0.44 [facility] Comment on above: Performed By: #### B BASIL, CDP #### [place] [address] Log Buyer: Alexey Green MD Eosinophils/100 WBC (Bld) 9 % High 1-4 [facility] Comment on above: Performed By: #### B BASIL, CDP #### [address] [address] Log Buyer: Alexey Green MD Erythrocyte distribution width (RBC) [Ratio] 13.6 % Normal 11.8-14.4 [facility] Comment on above: Performed By: #### B BASIL, CDP #### [place] [address] Log Buyer: Alexey Green MD Hematocrit (Bld) [Volume fraction] 39.3 % Normal 36.3-47.1 [facility] Comment on above: Performed By: #### B BASIL, CDP #### [address] [address] Log Buyer: Alexey Green MD Hemoglobin (Bld) [Mass/Vol] 11.8 g/dL Low 11.9-15.1 [facility] Comment on above: Performed By: #### B MP, CDP #### [address] [address] Log Buyer: Alexey Green MD Immature granulocytes/100 WBC (Bld) 0 % Normal 0 [facility] Comment on above: Performed By: #### B MP, CDP #### [address] [address] Log Buyer: Alexey Green MD Lymphocytes (Bld) [#/Vol] 3.23 10*3/uL Normal 1.10-3.70 [facility] Comment on above: Performed By: #### B MP, CDP #### [address] [address] Log Buyer: Alexey Green MD Lymphocytes/100 WBC (Bld) 40 % Normal 24-43 [facility] Comment on above: Performed By: #### B MP, CDP #### [address] [address] Log Buyer: Alexey Green MD MCH (RBC) [Entitic mass] 31.1 pg Normal 25.2-33.5 [facility] Comment on above: Performed By: #### B MP, CDP #### [address] [address] Log Buyer: Alexey Green MD MCHC (RBC) [Mass/Vol] 30.0 g/dL Normal 28.4-34.8 [facility] Comment on above: Performed By: #### B MP, CDP #### [address] [address] Log Buyer: Alexey Green MD MCV (RBC) [Entitic vol] 103.7 fL High 82.6-102.9 [facility] Comment on above: Performed By: #### B MP, CDP #### [address] [address] Log Buyer: Alexey Green MD Monocytes (Bld) [#/Vol] 0.68 10*3/uL Normal 0.10-1.20 [facility] Comment on above: Performed By: #### B MP, CDP #### [address] [address] Log Buyer: Alexey Green MD Monocytes/100 WBC (Bld) 9 % Normal 3-12 [facility] Comment on above: Performed By: #### B MP, CDP #### [address] [address] Log Buyer: Alexey Green MD Neutrophil (Seg) 41 % Normal 36-65 [facility] Comment on above: Performed By: #### B MP, CDP #### [address] [address] Log Buyer: Alexey Green MD NRBC Automated 0.0 per 100 WBC Normal 0.0 [facility] Comment on above: Performed By: #### B MP, CDP #### [address] [address] Log Buyer: Alexey Green MD Platelet mean volume (Bld) [Entitic vol] 12.2 fL Normal 8.1-13.5 [facility] Comment on above: Performed By: #### B MP, CDP #### [address] [address] Log Buyer: Alexey Green MD Platelets (Bld) [#/Vol] 199 10*3/uL Normal 138-453 [facility] Comment on above: Performed By: #### B MP, CDP #### [address] [address] Log Buyer: Alexey Green MD RBC (Bld) [#/Vol] 3.79 10*6/uL Low 3.95-5.11 [facility] Comment on above: Performed By: #### B BASIL, CDP #### [address] [address] Log Buyer: Alexey Green MD RBC morphology finding Nom (Bld) MACROCYTOSIS PRESENT Normal [facility] Comment on above: Performed By: #### B MP, CDP #### [address] [address] Log Buyer: Alexey Green MD WBC (Bld) [#/Vol] 7.9 10*3/uL Normal 3.5-11.3 [facility] Comment on above: Performed By: #### B BASIL, CDP #### [address] [address] Log Buyer: Alexey Green MD Hemoglobin A1Con 07-03-2023 Glucose [Mass/Vol] 137 mg/dL Normal [facility] Comment on above: Result Comment: The ADA and AACC recommend providing the estimated average glucose result to permit better patient understanding of their HBA1c result. Performed By: #### B BASIL, CDP #### [address] [address] Log Buyer: Alexey Green MD HbA1c (Bld) [Mass fraction] 6.4 % High 4.0-6.0 [facility] Comment on above: Performed By: #### B MP, CDP #### [address] [address] Log Buyer: Alexey Green MD TSH w/reflex to FT4on 2023 Thyroid Stim. Horm. 2.56 uIU/mL Normal 0.27-4.20 [facility] Comment on above: Performed By: #### U MICAO, UA, YEIMI #### [address] [address] Log Buyer: Alexey Green MD Protime-INRon 05-29-2023 INR Coag (Bld) [Relative time] 2.2 {INR} [facility] PT Coag (PPP) [Time] 26.8 s seconds [facility] Protime-INRon 04-25-2023 INR Coag (Bld) [Relative time] 2.7 {INR} [facility] PT Coag (PPP) [Time] 32.2 s seconds [facility] Protime-INRon 04-13-2023 PT Coag (PPP) [Time] 25.2 s seconds [facility] INR Coag (Bld) [Relative time] 2.1 {INR} [facility] INR in Platelet poor plasma by Coagulation assayOrdered By: Chase Méndez on 02-26-2023 INR Coag (PPP) [Relative time] 2.2 {INR} [facility] Comment on above: INR Therapeutic [...] Coag (PPP) [Relative time] 2.2 {INR} Normal [facility] Comment on above: Result Comment: [...] heart valves: 3 - 4.5 PERFORMED BY: [facility] [place] [address] PATHOLOGIST WIPING CLOTH CUTTER REZA ORTIZ M.D. Performed By: #### P T #### [facility] [address] [id number] [facility] PT Coag (PPP) [Time] 25.8 s High 9.0-12.9 [facility] Comment on above: Result Comment: A he matocrit value greater than 55% may lead to inaccurate results in coagulation testing. Patients having hematocrit values >55% require a special collection tube for coagulation studies. Please contact the laboratory at [phone] for redraw instructions. Performed By: #### P T #### [facility] [address] [id number] [facility] Prothrombin time (PT)Ordered By: Chase Méndez on 02-26-2023 PT Coag (PPP) [Time] 25.8 s 9.0-12.9 [facility] Comment on above: A hematocrit value g reater than 55% may lead to inaccurate results in coagulation testing. Patients having hematocrit values >55% require a special collection tube for coagulation studies. Please contact the laboratory at [phone] for redraw instructions. INR in Platelet poor plasma by Coagulation assayOrdered By: Chase Méndez on 02-15-2023 INR Coag (PPP) [Relative time] 1.2 {INR} [facility] Comment on above: INR Therapeutic [...] Coag (PPP) [Relative time] 1.2 {INR} Normal [facility] Comment on above: Result Comment: [...] heart valves: 3 - 4.5 PERFORMED BY: [place] [place] [id number] PATHOLOGIST WIPING CLOTH CUTTER REZA ORTIZ M.D. Performed By: #### P T #### [place] [id number] [facility] PT Coag (PPP) [Time] 14.5 s High 9.0-12.9 [facility] Comment on above: Result Comment: A he matocrit value greater than 55% may lead to inaccurate results in coagulation testing. Patients having hematocrit values >55% require a special collection tube for coagulation studies. Please contact the laboratory at [phone] for redraw instructions. Performed By: #### P T #### [place] [id number] [facility] Prothrombin time (PT)Ordered By: Chase Méndez on 02-15-2023 PT Coag (PPP) [Time] 14.5 s 9.0-12.9 [facility] Comment on above: A hematocrit value g reater than 55% may lead to inaccurate results in coagulation testing. Patients having hematocrit values >55% require a special collection tube for coagulation studies. Please contact the laboratory at [phone] for redraw instructions. Ambulatory Visit Summaryon 0 12-05-2022 Ambulatory Visit Summary KEVON LEWISALEXEY Blackmon :1935 Visit Date:12/05/2022 Ambulatory Visit Instructions Your Care Team Attending Physician - Tom THOMPSON MD Primary Care Physician - Chase Méndez MD This Is Your Medications List [...] regurgitation Varicose veins of lower extremity Normal [facility] General Surgery Office/Clini c Noteon 12-05-2022 [...] Immunizations Vaccine Date Status Comments SARS-CoV-2 (COVID-19) [id number].[id number] 07/25/2022 Recorded SARS-CoV-2 (COVID-19) mRNA-1273 vaccine 07/10/2022 (more content not included)... Normal [facility] Comment on above: Result Comment: Elec tronically Signed By: JAY BRYAN, Tom Lujan\Date and Time Signed: 12/05/22 15:41 EDT Pathology Noteon 11-29-2022 Pathology Note [id number]:127 Normal [facility] Ambulatory Visit Summaryon 0 11-22-2022 Ambulatory Visit Summary GEMMA LEWIS :1935 Visit Date:11/22/2022 Ambulatory Visit Instructions Your Care Team Attending Physician - JAY BRYAN, Tom Jimenez Primary Care Physician - Chase Méndez MD This Is Your Medications List [...] regurgitation Varicose veins of lower extremity Normal [facility] General Surgery Office/Clini c Noteon 11-22-2022 [...] Years., 11/14 (more content not included)... Normal [facility] Comment on above: Result Comment: Elec tronically Signed By: JAY BRYAN, Tom Jimenez\.br\Date and Time Signed: 11/22/22 15:51 EDT Ambulatory Visit Summaryon 0 11-14-2022 Ambulatory Visit Summary GEMMA LEWIS :1935 Visit Date:11/14/2022 Ambulatory Visit Instructions Your Care Team Attending Physician - Tom THOMPSON MD Primary Care Physician - Chase Méndez MD This Is Your Medications List [...] BRYAN, Tom Jimenez Where: General Surgery [facility] Office Visiton 10-31-2022 Follow-up visit [id number] Carrie Lewis 1935 F Date Provider Department Center 10/31/2022 ROB ARAMBULA [facility] No family history on file Level of Service:27743 [place] OFFICE/OUTPATIENT ESTABLISHED MOD MDM 30-39 MIN Reason for Visit and Comments: Follow-up [047009] Normal [facility] Physician Referralon 023 Physician Referral [id number]:127 Normal [facility] Physician Referral [id number]:127 Normal [facility] PROTIMEon 08-02-2022 INR Coag (PPP) [Relative time] 1.12 {INR} Normal [facility] Comment on above: Performed By: #### P OCGLUC #### [facility] [address] [place] [address] Dr. Nancy Montalvo INR GUIDELINES SEE BELOW Normal [facility] Comment on above: Result Comment: ADITYA RED INR: 2.0 - 3.0 CONDITIONS NOT LISTED BELOW 2.5 - 3.5 FOR PROSTHETIC HEART VALVE REPLACEMENT 2.5 - 3.5 RECURRENT THROMBOSIS Performed By: #### P OCGLUC #### [facility] [address] [place] [address] Dr. Nancy Montalvo PT Coag (PPP) [Time] 11.8 s Critically high 9.0-11.6 [facility] Comment on above: Performed By: #### P OCGLUC #### [facility] [address] [place] [address] Dr. Nancy Montalvo PROTIMEon 07-26-2022 INR Coag (PPP) [Relative time] 1.33 {INR} Normal [facility] Comment on above: Performed By: #### P OCGLUC #### [facility] [address] [place] [address] Dr. Nancy Montalvo INR GUIDELINES SEE BELOW Normal [facility] Comment on above: Result Comment: ADITYA RED INR: 2.0 - 3.0 CONDITIONS NOT LISTED BELOW 2.5 - 3.5 FOR PROSTHETIC HEART VALVE REPLACEMENT 2.5 - 3.5 RECURRENT THROMBOSIS Performed By: #### P OCGLUC #### [facility] [address] [place] [address] Dr. Nancy Montalvo PT Coag (PPP) [Time] 13.9 s Critically high 9.0-11.6 [facility] Comment on above: Performed By: #### P OCGLUC #### [facility] [address] [place] [address] Dr. Nancy Montalvo PROTIMEon 07-24-2022 INR Coag (PPP) [Relative time] 1.41 {INR} Normal [facility] Comment on above: Performed By: #### C VDTBH #### [facility] [address] [place] [address] Dr. Nancy Montalvo INR GUIDELINES SEE BELOW Normal [facility] Comment on above: Result Comment: ADITYA RED INR: 2.0 - 3.0 CONDITIONS NOT LISTED BELOW 2.5 - 3.5 FOR PROSTHETIC HEART VALVE REPLACEMENT 2.5 - 3.5 RECURRENT THROMBOSIS Performed By: #### C VDTBH #### [facility] [address] [place] [address] Dr. Nancy Montalvo PT Coag (PPP) [Time] 14.7 s Critically high 9.0-11.6 [facility] Comment on above: Performed By: #### C VDTBH #### [facility] [address] [place] [address] Dr. Nancy Montalvo CBC W MANUAL DIFFon 07-22-19 23 ANISOCYTOSIS 1+ Normal [facility] Comment on above: Performed By: #### C VDTBH #### [facility] [address] [place] [address] Dr. Nancy Montalvo ATYPICAL LYMPH # Normal [facility] Comment on above: Performed By: #### C VDTBH #### [facility] [address] [place] [address] Dr. Nancy Montalvo ATYPICAL LYMPH % Normal [facility] Comment on above: Performed By: #### C VDTBH #### [facility] [address] [place] [address] Dr. Nancy Montalvo BAND # 0.2 103/ul Normal 0.0-0.3 [facility] Comment on above: Performed By: #### C VDTBH #### [facility] [address] [place] [address] Dr. Nancy Montalvo BAND % 2 % Normal 0-5 [facility] Comment on above: Performed By: #### C VDTBH #### [facility] [address] [place] [address] Dr. Nancy Montalvo BASOM # 0.00 103/ul Normal 0.00-0.10 [facility] Comment on above: Performed By: #### C VDTBH #### [facility] [address] [place] [address] Dr. Nancy Montalvo BASOM % 0.0 % Critically low 0.2-2.0 [facility] Comment on above: Performed By: #### C VDTBH #### [facility] [address] [place] [address] Dr. Nancy Montalvo BLAST # Normal [facility] Comment on above: Performed By: #### C VDTBH #### [facility] [address] [place] [address] Dr. Nancy Montalvo BLAST % Normal [facility] Comment on above: Performed By: #### C VDTBH #### [facility] [address] [address] [address] Nancy Montalvo CORRECTED WBC Normal 4.0-11.0 [facility] Comment on above: Performed By: #### C VDTBH #### [facility] [address] [address] [address] Nancy Montalvo EOS # 0.10 103/ul Normal 0.00-0.70 [facility] Comment on above: Performed By: #### C VDTBH #### [facility] [address] [address] [address] Nancy Montalvo EOS% 1.0 % Normal 0.9-7.0 [facility] Comment on above: Performed By: #### C VDTBH #### [facility] [address] [place] [address] Dr. Nancy Montalvo GIANT PLATELETS SEEN Normal [facility] Comment on above: Performed By: #### C VDTBH #### [facility] [address] [place] [address] Dr. Nancy Montalvo HCT 30.2 % Critically low 36.0-48.0 [facility] Comment on above: Performed By: #### C VDTBH #### [facility] [address] [place] [address] Dr. Nancy Montalvo HGB 9.7 g/dl Critically low 12.0-16.0 [facility] Comment on above: Performed By: #### C VDTBH #### [facility] [address] [place] [address] Dr. Nancy Montalvo LYMPHM # 1.72 103/ul Normal 1.20-3.80 [facility] Comment on above: Performed By: #### C VDTBH #### [facility] [address] [place] [address] Dr. Nancy Montalvo LYMPHM% 17.0 % Critically low 20.5-60.0 [facility] Comment on above: Performed By: #### C VDTBH #### [facility] [address] [place] [address] Dr. Nancy Montalvo MCH 31.5 pg Normal 26.7-34.0 [facility] Comment on above: Performed By: #### C VDTBH #### [facility] [address] [place] [address] Dr. Nancy Montalvo MCHC 32.1 g/dl Normal 29.9-35.2 [facility] Comment on above: Performed By: #### C VDTBH #### [facility] [address] [place] [address] Dr. Nancy Montalvo MCV 98.1 fL Normal 81.0-99.0 [facility] Comment on above: Performed By: #### C VDTBH #### [facility] [address] [place] [address] Dr. Nancy Montalvo METAMYELOCYTE # Normal [facility] Comment on above: Performed By: #### C VDTBH #### [facility] [address] [place] [address] Dr. Nancy Montalvo METAMYELOCYTE % Normal [facility] Comment on above: Performed By: #### C VDTBH #### [facility] [address] [place] [address] Dr. Nancy Montalvo MONOM# 0.61 103/ul Normal 0.30-0.80 [facility] Comment on above: Performed By: #### C VDTBH #### [facility] [address] [place] [address] Dr. Nancy Montalvo MONOM% 6.0 % Normal 1.7-12.0 [facility] Comment on above: Performed By: #### C VDTBH #### [facility] [address] [place] [address] Dr. Nancy Montalvo MPV 11.3 fL Normal 9.5-13.5 [facility] Comment on above: Performed By: #### C VDTBH #### [facility] [address] [place] [address] Dr. Nancy Montalvo MYELOCYTE # Normal [facility] Comment on above: Performed By: #### C VDTBH #### [facility] [address] [address] [address] Nancy Montalvo MYELOCYTE % Normal [facility] Comment on above: Performed By: #### C VDTBH #### [facility] [address] [address] [address] Nancy Montalvo NRBC Normal [facility] Comment on above: Performed By: #### C VDTBH #### [facility] [address] [address] [address] Nancy Montalvo OVALOCYTES SLIGHT Normal [facility] Comment on above: Performed By: #### C VDTBH #### [facility] [address] [address] [address] Nancy Montalvo PLT 277 103/ul Normal 150-450 [facility] Comment on above: Performed By: #### C VDTBH #### [facility] [address] [address] [address] Nancy Montalvo POIKILOCYTOSIS SLIGHT Normal [facility] Comment on above: Performed By: #### C VDTBH #### [facility] [address] [address] [address] Nancy Montalvo RBC 3.08 106/ul Critically low 4.20-5.40 [facility] Comment on above: Performed By: #### C VDTBH #### [facility] [address] [address] [address] Nancy Montalvo RDW 15.8 % Critically high 11.0-15.0 [facility] Comment on above: Performed By: #### C VDTBH #### [facility] [address] [address] [address] Nancy Montalvo SEG # 7.47 103/ul Critically high 1.40-6.50 [facility] Comment on above: Performed By: #### C VDTBH #### [facility] [address] [address] [address] Nancy Montalvo SEG % 74.0 % Normal 43.0-75.0 [facility] Comment on above: Performed By: #### C VDTBH #### [facility] [address] [place] [address] Dr. Nancy Montalvo TEAR DROP CELLS SLIGHT Normal [facility] Comment on above: Performed By: #### C VDTBH #### [facility] [address] [place] [address] Dr. Nancy Montalvo WBC 10.1 103/ul Normal 4.0-11.0 [facility] Comment on above: Performed By: #### C VDTBH #### [facility] [address] [place] [address] Dr. Nancy Montalvo CULTURE URINEon 07-21-2022 CULTURE URINE Culture Observations : NO GROWTH. Normal [facility] Comment on above: Performed By: #### A 1C #### [facility] [address] [place] [address] Dr. Nancy Montalvo PROF 14(COMP METB)on 023 Albumin [Mass/Vol] 1.6 g/dL Critically low 3.4-5.0 [facility] Comment on above: Performed By: #### C VDTBH #### [facility] [address] [place] [address] Dr. Nancy Montalvo Albumin/Globulin [Mass ratio] 0.4 {ratio} Normal [facility] Comment on above: Performed By: #### C VDTBH #### [facility] [address] [place] [address] Dr. Nancy Montalvo ALP [Catalytic activity/Vol] 112 U/L Normal 46-116 [facility] Comment on above: Performed By: #### C VDTBH #### [facility] [address] [place] [address] Dr. Nancy Montalvo ALT [Catalytic activity/Vol] 36 U/L Normal 14-59 [facility] Comment on above: Performed By: #### C VDTBH #### [facility] [address] [place] [address] Dr. Nancy Montalvo Anion gap [Moles/Vol] 12.2 mmol/L Normal [facility] Comment on above: Performed By: #### C VDTBH #### [facility] [address] [address] [address] Nancy Montalvo AST [Catalytic activity/Vol] 29 U/L Normal 15-37 [facility] Comment on above: Performed By: #### C VDTBH #### [facility] [address] [address] [address] Nancy Montalvo Bilirubin [Mass/Vol] 0.2 mg/dL Normal 0.2-1.0 [facility] Comment on above: Performed By: #### C VDTBH #### [facility] [address] [place] [address] Dr. Nancy Montalvo Calcium [Mass/Vol] 8.2 mg/dL Critically low 8.5-10.1 [facility] Comment on above: Performed By: #### C VDTBH #### [facility] [address] [place] [address] Dr. Nancy Montalvo Chloride [Moles/Vol] 110 mmol/L Critically high 98-107 [facility] Comment on above: Performed By: #### C VDTBH #### [facility] [address] [place] [address] Dr. Nancy Montalvo CO2 [Moles/Vol] 21.1 mmol/L Normal 21.0-32.0 [facility] Comment on above: Performed By: #### C VDTBH #### [facility] [address] [place] [address] Dr. Nancy Montalvo Creatinine [Mass/Vol] 1.83 mg/dL Critically high 0.55-1.02 [facility] Comment on above: Performed By: #### C VDTBH #### [facility] [address] [place] [address] Dr. Nancy Montalvo EGFR-AF ITALIAN 32 mL/min/1.73m2 Critically low >=60 [facility] Comment on above: Performed By: #### C VDTBH #### [facility] [address] [place] [address] Dr. Nancy Montalvo EGFR-NON AF ITALIAN 26 mL/min/1.73m2 Critically low >=60 [facility] Comment on above: Performed By: #### C VDTBH #### [facility] [address] [address] [address] Nancy Montalvo Globulin (S) [Mass/Vol] 3.9 g/dL Normal [facility] Comment on above: Performed By: #### C VDTBH #### [facility] [address] [address] [address] Nancy Montalvo Glucose [Mass/Vol] 123 mg/dL Critically high 74-106 [facility] Comment on above: Performed By: #### C VDTBH #### [facility] [address] [place] [address] Dr. Nancy Montalvo Potassium [Moles/Vol] 3.3 mmol/L Critically low 3.5-5.1 [facility] Comment on above: Performed By: #### C VDTBH #### [facility] [address] [place] [address] Dr. Nancy Montalvo Protein [Mass/Vol] 5.5 g/dL Critically low 6.4-8.2 [facility] Comment on above: Performed By: #### C VDTBH #### [facility] [address] [place] [address] Dr. Nancy Montalvo Sodium [Moles/Vol] 140 mmol/L Normal 136-145 [facility] Comment on above: Performed By: #### C VDTBH #### [facility] [address] [place] [address] Dr. Nacny Montalvo Urea nitrogen [Mass/Vol] 27.0 mg/dL Critically high 7.0-18.0 [facility] Comment on above: Performed By: #### C VDTBH #### [facility] [address] [place] [address] Dr. Nancy Montalvo Urea nitrogen/Creatinine [Mass ratio] 14.8 mg/mg Normal [facility] Comment on above: Performed By: #### C VDTBH #### [facility] [address] [place] [address] Dr. Nancy Montalvo PROTIMEon 07-21-2022 INR Coag (PPP) [Relative time] 3.20 {INR} Normal [facility] Comment on above: Performed By: #### P OCGLUC #### [facility] [address] [place] [address] Dr. Nancy Montalvo INR GUIDELINES SEE BELOW Normal [facility] Comment on above: Result Comment: ADITYA RED INR: 2.0 - 3.0 CONDITIONS NOT LISTED BELOW 2.5 - 3.5 FOR PROSTHETIC HEART VALVE REPLACEMENT 2.5 - 3.5 RECURRENT THROMBOSIS Performed By: #### P OCGLUC #### [facility] [address] [place] [address] Dr. Nancy Montalvo PT Coag (PPP) [Time] 31.8 s Critically high 9.0-11.6 [facility] Comment on above: Performed By: #### P OCGLUC #### [facility] [address] [place] [address] Dr. Nancy Montalvo UA (CLEAN/CATCH) BLADE ALIGNER/MICRO I F IND.on 07-21-2022 Bilirubin Ql (U) Negative Normal NEGATIVE [facility] Comment on above: Performed By: #### C MP #### [facility] [address] [place] [address] Dr. Nancy Montalvo Clarity (U) CLEAR Normal CLEAR [facility] Comment on above: Performed By: #### C MP #### [facility] [address] [place] [address] Dr. Nancy Montalvo Color (U) LT. YELLOW Normal YELLOW [facility] Comment on above: Performed By: #### C MP #### [facility] [address] [place] [address] Dr. Nancy Montalvo Glucose Ql (U) 500 mg/dl Abnormal NEGATIVE [facility] Comment on above: Performed By: #### C MP #### [facility] [address] [place] [address] Dr. Nancy Montalvo Hemoglobin Ql (U) TRACE-INTACT Abnormal NEGATIVE [facility] Comment on above: Performed By: #### C MP #### [facility] [address] [place] [address] Dr. Nancy Montalvo Ketones Ql (U) Negative Normal NEGATIVE [facility] Comment on above: Performed By: #### C MP #### [facility] [address] [place] [address] Dr. Nancy Montalvo LEUKOCYTES LARGE Abnormal NEGATIVE [facility] Comment on above: Performed By: #### C MP #### [facility] [address] [place] [address] Dr. Nancy Montalvo Nitrite Ql (U) Negative Normal NEGATIVE [facility] Comment on above: Performed By: #### C MP #### [facility] [address] [place] [address] Dr. Nancy Montalvo pH (U) 5.5 [pH] Normal 5-9 [facility] Comment on above: Performed By: #### C MP #### [facility] [address] [place] [address] Dr. Nancy Montalvo SPEC GRAVITY 1.010 Normal 1.005-<=1.0 25 [facility] Comment on above: Performed By: #### C MP #### [facility] [address] [place] [address] Dr. Nancy Montalvo UA PROTEIN 30 mg/dl Abnormal NEGATIVE/ TRACE [facility] Comment on above: Performed By: #### C MP #### [facility] [address] [place] [address] Dr. Nancy Montalvo UR MICRO IND INDICATED Normal [facility] Comment on above: Performed By: #### C MP #### [facility] [address] [place] [address] Dr. Nancy Montalvo Urobilinogen Qn (U) 0.2 {Grant'U}/dL Normal 0.2 - 1. 0 [facility] Comment on above: Performed By: #### C MP #### [facility] [address] [place] [address] Dr. Nancy Montalvo URINE MICROSCOPIC ONLYon BACTERIA MODERATE Abnormal NONE SEEN [facility] Comment on above: Performed By: #### C MP #### [facility] [address] [place] [address] Dr. Nancy Montalvo Bacteria identified Cx Nom (U) INDICATED Normal [facility] Comment on above: Performed By: #### C MP #### [facility] [address] [place] [address] Dr. Nancy Montalvo CAST NONE SEEN Normal NONE SEEN [facility] Comment on above: Performed By: #### C MP #### [facility] [address] [place] [address] Dr. Nancy Montalvo Crystals LM Nom (Urine sed) NONE SEEN Normal NONE SEEN [facility] Comment on above: Performed By: #### C MP #### [facility] [address] [address] [address] Nancy Montalvo Epithelial cells LM Ql (Urine sed) FEW Abnormal NONE SEEN /RARE [facility] Comment on above: Performed By: #### C MP #### [facility] [address] [place] [address] Dr. Nancy Montalvo MUCOUS NONE SEEN Normal NONE SEEN [facility] Comment on above: Performed By: #### C MP #### [facility] [address] [place] [address] Dr. Nancy Montalvo RBC 2-5 Abnormal 0-2 [facility] Comment on above: Performed By: #### C MP #### [facility] [address] [place] [address] Dr. Nancy Montalvo WBC (U) [#/Vol] /uL Abnormal NONE SEEN [facility] Comment on above: Performed By: #### C MP #### [facility] [address] [place] [address] Dr. Nancy Montalvo YEAST PRESENT Abnormal NONE SEEN [facility] Comment on above: Performed By: #### C MP #### [facility] [address] [place] [address] Dr. Nancy Montalvo PROTIMEon 07-19-2022 INR Coag (PPP) [Relative time] 8.00 {INR} Critically high [facility] Comment on above: Performed By: #### P OCGLUC #### [facility] [address] [place] [address] Dr. Nancy Montalvo INR GUIDELINES SEE BELOW Normal [facility] Comment on above: Result Comment: ADITYA RED INR: 2.0 - 3.0 CONDITIONS NOT LISTED BELOW 2.5 - 3.5 FOR PROSTHETIC HEART VALVE REPLACEMENT 2.5 - 3.5 RECURRENT THROMBOSIS Performed By: #### P OCGLUC #### [facility] [address] [place] [address] Dr. Nancy Montalvo PT Coag (PPP) [Time] 90.0 s Critically high 9.0-11.6 [facility] Comment on above: Performed By: #### P OCGLUC #### [facility] [address] [place] [address] Dr. Nancy Montalvo CBC AUTO DIFFon 07-14-2022 BASO # 0.0 103/ul Normal 0.0-0.1 [facility] Comment on above: Performed By: #### P OCGLUC #### [facility] [address] [place] [address] Dr. Nancy Montalvo Basophils/100 WBC (Bld) 0.2 % Normal 0.2-2.0 [facility] Comment on above: Performed By: #### P OCGLUC #### [facility] [address] [place] [address] Dr. Nancy Montalvo EO # 0.1 103/ul Normal 0.0-0.7 [facility] Comment on above: Performed By: #### P OCGLUC #### [facility] [address] [place] [address] Dr. Nancy Montalvo Eosinophils/100 WBC (Bld) 0.4 % Critically low 0.9-7.0 [facility] Comment on above: Performed By: #### P OCGLUC #### [facility] [address] [place] [address] Dr. Nancy Montalvo Erythrocyte distribution width (RBC) [Ratio] 14.0 % Normal 11.0-15.0 [facility] Comment on above: Performed By: #### P OCGLUC #### [facility] [address] [place] [address] Dr. Nancy Monatlvo Hematocrit (Bld) [Volume fraction] 30.8 % Critically low 36.0-48.0 [facility] Comment on above: Performed By: #### P OCGLUC #### [facility] [address] [place], [place] [id number] Dr. Nancy Montalvo Hemoglobin (Bld) [Mass/Vol] 9.5 g/dL Critically low 12.0-16.0 [facility] Comment on above: Performed By: #### P OCGLUC #### [facility] [address] [address] [address] Nancy Montalvo IG # 0.17 10e3/ul Critically high 0.00-0.03 [facility] Comment on above: Performed By: #### P OCGLUC #### [facility] [address] [place] [address] Dr. Nancy Montalvo IG % 1.3 % Critically high 0.0-0.5 [facility] Comment on above: Performed By: #### P OCGLUC #### [facility] [address] [place] [address] Dr. Nancy Montalvo LYMPH # 1.4 103/ul Normal 1.2-3.8 [facility] Comment on above: Performed By: #### P OCGLUC #### [facility] [address] [place] [address] Dr. Nancy Montalvo Lymphocytes/100 WBC (Bld) 10.7 % Critically low 20.5-60.0 [facility] Comment on above: Performed By: #### P OCGLUC #### [facility] [address] [place] [address] Dr. Nancy Montalvo MANUAL DIFF REQ NO Normal [facility] Comment on above: Performed By: #### P OCGLUC #### [facility] [address] [address] [address] Nancy Montalvo MCH (RBC) [Entitic mass] 30.5 pg Normal 26.7-34.0 [facility] Comment on above: Performed By: #### P OCGLUC #### [facility] [address] [place] [address] Dr. Nancy Montalvo MCHC (RBC) [Mass/Vol] 30.8 g/dL Normal 29.9-35.2 [facility] Comment on above: Performed By: #### P OCGLUC #### [facility] [address] [place], [place] [id number] Dr. Nancy Montalvo MCV (RBC) [Entitic vol] 99.0 fL Normal 81.0-99.0 [facility] Comment on above: Performed By: #### P OCGLUC #### [facility] [address] [place] [address] Dr. Nancy Montalvo MONO # 0.6 103/ul Normal 0.3-0.8 [facility] Comment on above: Performed By: #### P OCGLUC #### [facility] [address] [address] [address] Nancy Montalvo Monocytes/100 WBC (Bld) 5.0 % Normal 1.7-12.0 [facility] Comment on above: Performed By: #### P OCGLUC #### [facility] [address] [place] [address] Dr. Nancy Montalvo NEUT # 10.4 103/ul Critically high 1.4-6.5 [facility] Comment on above: Performed By: #### P OCGLUC #### [facility] [address] [place] [address] Dr. Nancy Montalvo Neutrophils/100 WBC (Bld) 82.4 % Critically high 43.0-75.0 [facility] Comment on above: Performed By: #### P OCGLUC #### [facility] [address] [place] [address] Dr. Nancy Montalvo Platelet mean volume (Bld) [Entitic vol] 11.9 fL Normal 9.5-13.5 [facility] Comment on above: Performed By: #### P OCGLUC #### [facility] [address] [place] [address] Dr. Nancy Montalvo PLT 136 103/ul Critically low 150-450 [facility] Comment on above: Performed By: #### P OCGLUC #### [facility] [address] [address] [address] Nancy Montalvo RBC 3.11 106/ul Critically low 4.20-5.40 [facility] Comment on above: Performed By: #### P OCGLUC #### [facility] [address] [place] [address] Dr. Nancy Montalvo WBC 12.7 103/ul Critically high 4.0-11.0 [facility] Comment on above: Performed By: #### P OCGLUC #### [facility] [address] [address] [address] Nancy Montalvo PROF 14(COMP METB)on 07-14- 023 Albumin [Mass/Vol] 1.7 g/dL Critically low 3.4-5.0 Th e [facility] Comment on above: Performed By: #### B [id number] #### [facility] [address] [address] [address] Nancy Montalvo Albumin/Globulin [Mass ratio] 0.5 {ratio} Normal [facility] Comment on above: Performed By: #### B [id number] #### [facility] [address] [place] [address] Dr. Nancy Montalvo ALP [Catalytic activity/Vol] 97 U/L Normal 46-116 [facility] Comment on above: Performed By: #### B [id number] #### [facility] [address] [address] [address] Nancy Montalvo ALT [Catalytic activity/Vol] 65 U/L Critically high 14-59 [facility] Comment on above: Performed By: #### B [id number] #### [facility] [address] [address] [address] Nancy Montalvo Anion gap [Moles/Vol] 15.2 mmol/L Normal [facility] Comment on above: Performed By: #### B [id number] #### [facility] [address] [address] [address] Nancy Montalvo AST [Catalytic activity/Vol] 28 U/L Normal 15-37 [facility] Comment on above: Performed By: #### B [id number] #### [facility] [address] [address] [address] Nancy Montalvo Bilirubin [Mass/Vol] 0.4 mg/dL Normal 0.2-1.0 [facility] Comment on above: Performed By: #### B [id number] #### [facility] [address] [address] [address] Nancy Montalvo Calcium [Mass/Vol] 8.4 mg/dL Critically low 8.5-10.1 [facility] Comment on above: Performed By: #### B [id number] #### [facility] [address] [address] [address] Nancy Montalvo Chloride [Moles/Vol] 108 mmol/L Critically high 98-107 [facility] Comment on above: Performed By: #### B [id number] #### [facility] [address] [place] [address] Dr. Nancy Montalvo CO2 [Moles/Vol] 24.6 mmol/L Normal 21.0-32.0 [facility] Comment on above: Performed By: #### B [id number] #### [facility] [address] [place] [address] Dr. Nancy Montalvo Creatinine [Mass/Vol] 2.22 mg/dL Critically high 0.55-1.02 [facility] Comment on above: Performed By: #### B [id number] #### [facility] [address] [place] [address] Dr. Nancy Montalvo EGFR-AF ITALIAN 25 mL/min/1.73m2 Critically low >=60 [facility] Comment on above: Performed By: #### B [id number] #### [facility] [address] [place] [address] Dr. Nancy Montalvo EGFR-NON AF ITALIAN 21 mL/min/1.73m2 Critically low >=60 [facility] Comment on above: Performed By: #### B [id number] #### [facility] [address] [place] [address] Dr. Nancy Montalvo Globulin (S) [Mass/Vol] 3.4 g/dL Normal [facility] Comment on above: Performed By: #### B [id number] #### [facility] [address] [place] [address] Dr. Nancy Montalvo Glucose [Mass/Vol] 86 mg/dL Normal 74-106 [facility] Comment on above: Performed By: #### B [id number] #### [facility] [address] [address] [address] Nancy Montalvo Potassium [Moles/Vol] 3.8 mmol/L Normal 3.5-5.1 [facility] Comment on above: Performed By: #### B [id number] #### [facility] [address] [address] [address] Nancy Montalvo Protein [Mass/Vol] 5.1 g/dL Critically low 6.4-8.2 [facility] Comment on above: Performed By: #### B [id number] #### [facility] [address] [place] [address] Dr. Nancy Montalvo Sodium [Moles/Vol] 144 mmol/L Normal 136-145 [facility] Comment on above: Performed By: #### B [id number] #### [facility] [address] [place] [address] Dr. Nancy Montalvo Urea nitrogen [Mass/Vol] 34.0 mg/dL Critically high 7.0-18.0 [facility] Comment on above: Performed By: #### B [id number] #### [facility] [address] [place] [address] Dr. Nancy Montalvo Urea nitrogen/Creatinine [Mass ratio] 15.3 mg/mg Normal [facility] Comment on above: Performed By: #### B [id number] #### [facility] [address] [place] [address] Dr. Nancy Montalvo PROTIMEon 07-14-2022 INR Coag (PPP) [Relative time] 3.39 {INR} Normal [facility] Comment on above: Performed By: #### P OCGLUC #### [facility] [address] [place] [address] Dr. Nancy Montalvo INR GUIDELINES SEE BELOW Normal [facility] Comment on above: Result Comment: ADITYA RED INR: 2.0 - 3.0 CONDITIONS NOT LISTED BELOW 2.5 - 3.5 FOR PROSTHETIC HEART VALVE REPLACEMENT 2.5 - 3.5 RECURRENT THROMBOSIS Performed By: #### P OCGLUC #### [facility] Laboratory [address] [place] [address] Dr. Nancy Montalvo PT Coag (PPP) [Time] 33.5 s Critically high 9.0-11.6 [facility] Comment on above: Performed By: #### P OCGLUC #### [facility] Laboratory [address] [place] [address] Dr. Nancy Montalvo CBC AUTO DIFFon 07-13-2022 BASO # 0.0 103/ul Normal 0.0-0.1 [facility] Comment on above: Performed By: #### P OCGLUC #### [facility] Laboratory [address] [place] [address] Dr. Nancy Montalvo Basophils/100 WBC (Bld) 0.3 % Normal 0.2-2.0 [facility] Comment on above: Performed By: #### P OCGLUC #### [facility] Laboratory [address] [place] [address] Dr. Nancy Montalvo EO # 0.1 103/ul Normal 0.0-0.7 [facility] Comment on above: Performed By: #### P OCGLUC #### [facility] Laboratory [address] [place] [address] Dr. Nancy Montalvo Eosinophils/100 WBC (Bld) 0.4 % Critically low 0.9-7.0 [facility] Comment on above: Performed By: #### P OCGLUC #### [facility] Laboratory [address] [place] [address] Dr. Nancy Montalvo Erythrocyte distribution width (RBC) [Ratio] 13.4 % Normal 11.0-15.0 [facility] Comment on above: Performed By: #### P OCGLUC #### [facility] Laboratory [address] [place] [address] Dr. Nancy Montalvo Hematocrit (Bld) [Volume fraction] 29.9 % Critically low 36.0-48.0 [facility] Comment on above: Performed By: #### P OCGLUC #### [facility] Laboratory [address] [place] [address] Dr. Nancy Montalvo Hemoglobin (Bld) [Mass/Vol] 9.5 g/dL Critically low 12.0-16.0 [facility] Comment on above: Performed By: #### P OCGLUC #### [facility] Laboratory [address] [address] [address] Nancy Montalvo IG # 0.16 10e3/ul Critically high 0.00-0.03 [facility] Comment on above: Performed By: #### P OCGLUC #### [facility] Laboratory [address] [address] [address] Nancy Montalvo IG % 1.4 % Critically high 0.0-0.5 [facility] Comment on above: Performed By: #### P OCGLUC #### [facility] Laboratory [address] [address] [address] Nancy Montalvo LYMPH # 1.0 103/ul Critically low 1.2-3.8 [facility] Comment on above: Performed By: #### P OCGLUC #### [facility] Laboratory [address] [place] [address] Dr. Nancy Montalvo Lymphocytes/100 WBC (Bld) 8.4 % Critically low 20.5-60.0 [facility] Comment on above: Performed By: #### P OCGLUC #### [facility] Laboratory [address] [place] [address] Dr. Nancy Montalvo MANUAL DIFF REQ NO Normal [facility] Comment on above: Performed By: #### P OCGLUC #### [facility] Laboratory [address] [place] [address] Dr. Nancy Montalvo MCH (RBC) [Entitic mass] 31.3 pg Normal 26.7-34.0 [facility] Comment on above: Performed By: #### P OCGLUC #### [facility] Laboratory [address] [address] [address] Nancy Montalvo MCHC (RBC) [Mass/Vol] 31.8 g/dL Normal 29.9-35.2 [facility] Comment on above: Performed By: #### P OCGLUC #### [facility] Laboratory [address] [address] [address] Nancy Montalvo MCV (RBC) [Entitic vol] 98.4 fL Normal 81.0-99.0 [facility] Comment on above: Performed By: #### P OCGLUC #### [facility] Laboratory [address] [address] [address] Nancy Montalvo MONO # 0.4 103/ul Normal 0.3-0.8 [facility] Comment on above: Performed By: #### P OCGLUC #### [facility] Laboratory [address] [address] [address] Nancy Montalvo Monocytes/100 WBC (Bld) 3.7 % Normal 1.7-12.0 [facility] Comment on above: Performed By: #### P OCGLUC #### [facility] Laboratory [address] [address] [address] Nancy Montalvo NEUT # 10.1 103/ul Critically high 1.4-6.5 [facility] Comment on above: Performed By: #### P OCGLUC #### [facility] Laboratory [address] [place] [address] Dr. Nancy Montalvo Neutrophils/100 WBC (Bld) 85.8 % Critically high 43.0-75.0 [facility] Comment on above: Performed By: #### P OCGLUC #### [facility] Laboratory [address] [address] [address] Nancy Montalvo Platelet mean volume (Bld) [Entitic vol] 12.3 fL Normal 9.5-13.5 [facility] Comment on above: Performed By: #### P OCGLUC #### [facility] Laboratory [address] [address] [address] Nancy Montalvo PLT 119 103/ul Critically low 150-450 [facility] Comment on above: Performed By: #### P OCGLUC #### [facility] Laboratory [address] [address] [address] Nancy Montalvo RBC 3.04 106/ul Critically low 4.20-5.40 [facility] Comment on above: Performed By: #### P OCGLUC #### [facility] Laboratory [address] [address] [address] Nancy Montalvo WBC 11.7 103/ul Critically high 4.0-11.0 [facility] Comment on above: Performed By: #### P OCGLUC #### [facility] Laboratory [address] [place] [address] Dr. Nancy Montalvo POINT OF CARE GLUCOSEon 06-18 Glucose [Mass/Vol] 143 mg/dL Critically high 74-106 [facility] Comment on above: Performed By: #### U AMIC #### [facility] Laboratory [address] [place] [address] Dr. Nancy Montalvo PROF 14(COMP METB)on 023 Albumin [Mass/Vol] 1.6 g/dL Critically low 3.4-5.0 [facility] Comment on above: Performed By: #### C VDTBH #### [facility] Laboratory [address] [place] [address] Dr. Nancy Montalvo Albumin/Globulin [Mass ratio] 0.5 {ratio} Normal [facility] Comment on above: Performed By: #### C VDTBH #### [facility] Laboratory [address] [place] [address] Dr. Nancy Montalvo ALP [Catalytic activity/Vol] 102 U/L Normal 46-116 [facility] Comment on above: Performed By: #### C VDTBH #### [facility] [address] [place] [address] Dr. Nancy Montalvo ALT [Catalytic activity/Vol] 79 U/L Critically high 14-59 [facility] Comment on above: Performed By: #### C VDTBH #### [facility] [address] [place] [address] Dr. Nancy Montalvo Anion gap [Moles/Vol] 13.1 mmol/L Normal [facility] Comment on above: Performed By: #### C VDTBH #### [facility] [address] [place] [address] Dr. Nancy Montalvo AST [Catalytic activity/Vol] 31 U/L Normal 15-37 [facility] Comment on above: Performed By: #### C VDTBH #### [facility] [address] [place] [address] Dr. Nancy Montalvo Bilirubin [Mass/Vol] 0.4 mg/dL Normal 0.2-1.0 [facility] Comment on above: Performed By: #### C VDTBH #### [facility] [address] [address] [address] Nancy Montalvo Calcium [Mass/Vol] 8.1 mg/dL Critically low 8.5-10.1 [facility] Comment on above: Performed By: #### C VDTBH #### [facility] [address] [address] [address] Nancy Montalvo Chloride [Moles/Vol] 108 mmol/L Critically high 98-107 [facility] Comment on above: Performed By: #### C VDTBH #### [facility] [address] [place] [address] Dr. Nancy Montalvo CO2 [Moles/Vol] 23.4 mmol/L Normal 21.0-32.0 [facility] Comment on above: Performed By: #### C VDTBH #### [facility] Laboratory [address] [place] [address] Dr. Nancy Montalvo Creatinine [Mass/Vol] 2.33 mg/dL Critically high 0.55-1.02 [facility] Comment on above: Performed By: #### C VDTBH #### [facility] Laboratory [address] [place] [address] Dr. Nancy Montalvo EGFR-AF ITALIAN 24 mL/min/1.73m2 Critically low >=60 [facility] Comment on above: Performed By: #### C VDTBH #### [facility] Laboratory [address] [place] [address] Dr. Nnacy Montalvo EGFR-NON AF ITALIAN 20 mL/min/1.73m2 Critically low >=60 [facility] Comment on above: Performed By: #### C VDTBH #### [facility] [address] [place] [address] Dr. Nancy Montalvo Globulin (S) [Mass/Vol] 3.3 g/dL Normal [facility] Comment on above: Performed By: #### C VDTBH #### [facility] Laboratory [address] [place] [address] Dr. Nancy Montalvo Glucose [Mass/Vol] 107 mg/dL Critically high 74-106 T [facility] Comment on above: Performed By: #### C VDTBH #### [facility] Laboratory [address] [address] [address] Nancy Montalvo Potassium [Moles/Vol] 3.5 mmol/L Normal 3.5-5.1 [facility] Comment on above: Performed By: #### C VDTBH #### [facility] [address] [place] [address] Dr. Nancy Montalvo Protein [Mass/Vol] 4.9 g/dL Critically low 6.4-8.2 [facility] Comment on above: Performed By: #### C VDTBH #### [facility] [address] [place] [address] Dr. Nancy Montalvo Sodium [Moles/Vol] 141 mmol/L Normal 136-145 [facility] Comment on above: Performed By: #### C VDTBH #### [facility] [address] [place] [address] Dr. Nancy Montalvo Urea nitrogen [Mass/Vol] 39.0 mg/dL Critically high 7.0-18.0 [facility] Comment on above: Performed By: #### C VDTBH #### [facility] [address] [place] [address] Dr. Nancy Montalvo Urea nitrogen/Creatinine [Mass ratio] 16.7 mg/mg Normal [facility] Comment on above: Performed By: #### C VDTBH #### [facility] [address] [place] [address] Dr. Nancy Montalvo PROTIMEon 07-13-2022 INR Coag (PPP) [Relative time] 1.99 {INR} Normal [facility] Comment on above: Performed By: #### P OCGLUC #### [facility] Laboratory [address] [place] [address] Dr. Nancy Montalvo INR GUIDELINES SEE BELOW Normal [facility] Comment on above: Result Comment: ADITYA RED INR: 2.0 - 3.0 CONDITIONS NOT LISTED BELOW 2.5 - 3.5 FOR PROSTHETIC HEART VALVE REPLACEMENT 2.5 - 3.5 RECURRENT THROMBOSIS Performed By: #### P OCGLUC #### [facility] Laboratory [address] [address] [address] Nancy Montalvo PT Coag (PPP) [Time] 20.3 s Critically high 9.0-11.6 [facility] Comment on above: Performed By: #### P OCGLUC #### [facility] Laboratory [address] [place] [address] Dr. Nancy Montalvo XR HIP LT 1V [...] is well-seated in the acetabulum. There are [id number] degenerative changes of the left hip. There are imcm-me-weidcxah degenerative changes of the left sacroiliac joint [...] Ban ESCOBEDO Date: 2022-07-12 22:49 Normal [facility] CBC AUTO DIFFon 07-12-2022 BASO # 0.0 103/ul Normal 0.0-0.1 [facility] Comment on above: Performed By: #### U AMIC #### [facility] Laboratory [address] [place] [address] Dr. Nancy Montalvo Basophils/100 WBC (Bld) 0.2 % Normal 0.2-2.0 [facility] Comment on above: Performed By: #### U AMIC #### [facility] Laboratory [address] [place] [address] Dr. Nancy Montalvo EO # 0.1 103/ul Normal 0.0-0.7 [facility] Comment on above: Performed By: #### U AMIC #### [facility] Laboratory [address] [address] [address] Nancy Montalvo Eosinophils/100 WBC (Bld) 0.8 % Critically low 0.9-7.0 [facility] Comment on above: Performed By: #### U AMIC #### [facility] [address] [address] [address] Nancy Montalvo Erythrocyte distribution width (RBC) [Ratio] 13.2 % Normal 11.0-15.0 [facility] Comment on above: Performed By: #### U AMIC #### [facility] Laboratory [address] [place] [address] Dr. Nancy Montalvo Hematocrit (Bld) [Volume fraction] 30.7 % Critically low 36.0-48.0 [facility] Comment on above: Performed By: #### U AMIC #### [facility] Laboratory [address] [place] [address] Dr. Nancy Montalvo Hemoglobin (Bld) [Mass/Vol] 10.0 g/dL Critically low 12.0-16.0 [facility] Comment on above: Performed By: #### U AMIC #### [facility] [address] [place] [address] Dr. Nancy Montalvo IG # 0.20 10e3/ul Critically high 0.00-0.03 [facility] Comment on above: Performed By: #### U AMIC #### [facility] [address] [place] [address] Dr. Nancy Montalvo IG % 1.5 % Critically high 0.0-0.5 [facility] Comment on above: Performed By: #### U AMIC #### [facility] [address] [place] [address] Dr. Nancy Montalvo LYMPH # 1.2 103/ul Normal 1.2-3.8 [facility] Comment on above: Performed By: #### U AMIC #### [facility] Laboratory [address] [address] [address] Nancy Montalvo Lymphocytes/100 WBC (Bld) 8.9 % Critically low 20.5-60.0 [facility] Comment on above: Performed By: #### U AMIC #### [facility] Laboratory [address] [place] [address] Dr. Nancy Montalvo MANUAL DIFF REQ NO Normal [facility] Comment on above: Performed By: #### U AMIC #### [facility] [address] [address] [address] Nancy Montalvo MCH (RBC) [Entitic mass] 31.6 pg Normal 26.7-34.0 [facility] Comment on above: Performed By: #### U AMIC #### [facility] Laboratory [address] [place] [address] Dr. Nancy Montalvo MCHC (RBC) [Mass/Vol] 32.6 g/dL Normal 29.9-35.2 [facility] Comment on above: Performed By: #### U AMIC #### [facility] Laboratory [address] [place] [address] Dr. Nancy Montalvo MCV (RBC) [Entitic vol] 97.2 fL Normal 81.0-99.0 [facility] Comment on above: Performed By: #### U AMIC #### [facility] [address] [place] [address] Dr. Nancy Montalvo MONO # 0.5 103/ul Normal 0.3-0.8 [facility] Comment on above: Performed By: #### U AMIC #### [facility] [address] [place] [address] Dr. Nancy Montalvo Monocytes/100 WBC (Bld) 3.6 % Normal 1.7-12.0 [facility] Comment on above: Performed By: #### U AMIC #### [facility] [address] [place] [address] Dr. Nancy Montalvo NEUT # 11.1 103/ul Critically high 1.4-6.5 [facility] Comment on above: Performed By: #### U AMIC #### [facility] [address] [address] [address] Nancy Montalvo Neutrophils/100 WBC (Bld) 85.0 % Critically high 43.0-75.0 [facility] Comment on above: Performed By: #### U AMIC #### [facility] [address] [place] [address] Dr. Nancy Montalvo Platelet mean volume (Bld) [Entitic vol] 13.1 fL Normal 9.5-13.5 [facility] Comment on above: Performed By: #### U AMIC #### [facility] [address] [address] [address] Nancy Montalvo PLT 107 103/ul Critically low 150-450 [facility] Comment on above: Performed By: #### U AMIC #### [facility] [address] [place] [address] Dr. Nancy Montalvo RBC 3.16 106/ul Critically low 4.20-5.40 [facility] Comment on above: Performed By: #### U AMIC #### [facility] [address] [address] [address] Nancy Montalvo WBC 13.0 103/ul Critically high 4.0-11.0 [facility] Comment on above: Performed By: #### U AMIC #### [facility] [address] [place] [address] Dr. Nancy Montalvo CULTURE URINEon 07-12-2022 CULTURE [...] F Trimethoprim/Sulfamethoxazo le <=20 S F Normal [facility] Comment on above: Performed By: #### U RCX #### [facility] [address] [address] [address] Nancy Montalvo PROF 14(COMP METB)on 023 Albumin [Mass/Vol] 1.7 g/dL Critically low 3.4-5.0 [facility] Comment on above: Performed By: #### C MP #### [facility] [address] [address] [address] Nancy Montalvo Albumin/Globulin [Mass ratio] 0.5 {ratio} Normal [facility] Comment on above: Performed By: #### C MP #### [facility] [address] [place] [address] Dr. Nancy Montalvo ALP [Catalytic activity/Vol] 102 U/L Normal 46-116 [facility] Comment on above: Performed By: #### C MP #### [facility] [address] [place] [address] Dr. Nancy Montalvo ALT [Catalytic activity/Vol] 95 U/L Critically high 14-59 [facility] Comment on above: Performed By: #### C MP #### [facility] [address] [place] [address] Dr. Nancy Montalvo Anion gap [Moles/Vol] 14.1 mmol/L Normal [facility] Comment on above: Performed By: #### C MP #### [facility] [address] [place] [address] Dr. Nancy Montalvo AST [Catalytic activity/Vol] 15 U/L Normal 15-37 [facility] Comment on above: Performed By: #### C MP #### [facility] [address] [place] [address] Dr. Nancy Montalvo Bilirubin [Mass/Vol] 0.5 mg/dL Normal 0.2-1.0 [facility] Comment on above: Performed By: #### C MP #### [facility] [address] [place] [address] Dr. Nancy Montalvo Calcium [Mass/Vol] 8.2 mg/dL Critically low 8.5-10.1 [facility] Comment on above: Performed By: #### C MP #### [facility] [address] [address] [address] Nancy Montalvo Chloride [Moles/Vol] 103 mmol/L Normal 98-107 [facility] Comment on above: Performed By: #### C MP #### [facility] [address] [address] [address] Nancy Montalvo CO2 [Moles/Vol] 23.4 mmol/L Normal 21.0-32.0 [facility] Comment on above: Performed By: #### C MP #### [facility] [address] [address] [address] Nancy Montalvo Creatinine [Mass/Vol] 2.68 mg/dL Critically high 0.55-1.02 [facility] Comment on above: Performed By: #### C MP #### [facility] [address] [address] [address] Nancy Montalvo EGFR-AF ITALIAN 20 mL/min/1.73m2 Critically low >=60 [facility] Comment on above: Performed By: #### C MP #### [facility] [address] [address] [address] Nancy Montalvo EGFR-NON AF ITALIAN 17 mL/min/1.73m2 Critically low >=60 [facility] Comment on above: Performed By: #### C MP #### [facility] [address] [address] [address] Nancy Montalvo Globulin (S) [Mass/Vol] 3.1 g/dL Normal [facility] Comment on above: Performed By: #### C MP #### [facility] [address] [address] [address] Nancy Montalvo Glucose [Mass/Vol] 118 mg/dL Critically high 74-106 T [facility] Comment on above: Performed By: #### C MP #### [facility] [address] [address] [address] Nancy Montalvo Potassium [Moles/Vol] 3.5 mmol/L Normal 3.5-5.1 [facility] Comment on above: Performed By: #### C MP #### [facility] [address] [address] [address] Nancy Montalvo Protein [Mass/Vol] 4.8 g/dL Critically low 6.4-8.2 Th e [facility] Comment on above: Performed By: #### C MP #### [facility] [address] [place] [address] Dr. Nancy Montalvo Sodium [Moles/Vol] 137 mmol/L Normal 136-145 [facility] Comment on above: Performed By: #### C MP #### [facility] [address] [place] [address] Dr. Nancy Montalvo Urea nitrogen [Mass/Vol] 43.0 mg/dL Critically high 7.0-18.0 [facility] Comment on above: Performed By: #### C MP #### [facility] [address] [place] [address] Dr. Nancy Montalvo Urea nitrogen/Creatinine [Mass ratio] 16.0 mg/mg Normal [facility] Comment on above: Performed By: #### C MP #### [facility] [address] [place] [address] Dr. Nancy Montalvo PROTIMEon 07-12-2022 INR Coag (PPP) [Relative time] 2.27 {INR} Normal [facility] Comment on above: Performed By: #### P OCGLUC #### [facility] [address] [place] [address] Dr. Nancy Montalvo INR GUIDELINES SEE BELOW Normal [facility] Comment on above: Result Comment: ADITYA RED INR: 2.0 - 3.0 CONDITIONS NOT LISTED BELOW 2.5 - 3.5 FOR PROSTHETIC HEART VALVE REPLACEMENT 2.5 - 3.5 RECURRENT THROMBOSIS Performed By: #### P OCGLUC #### [facility] [address] [place] [address] Dr. Nancy Montalvo PT Coag (PPP) [Time] 23.0 s Critically high 9.0-11.6 [facility] Comment on above: Performed By: #### P OCGLUC #### [facility] [address] [place] [address] Dr. Nancy Montalvo CBC AUTO DIFFon 07-11-2022 BASO # 0.1 103/ul Normal 0.0-0.1 [facility] Comment on above: Performed By: #### P OCGLUC #### [facility] [address] [place] [address] Dr. Nancy Montalvo Basophils/100 WBC (Bld) 0.3 % Normal 0.2-2.0 [facility] Comment on above: Performed By: #### P OCGLUC #### [facility] [address] [place] [address] Dr. Nancy Montalvo EO # 0.1 103/ul Normal 0.0-0.7 [facility] Comment on above: Performed By: #### P OCGLUC #### [facility] [address] [place] [address] Dr. Nancy Montalvo Eosinophils/100 WBC (Bld) 0.3 % Critically low 0.9-7.0 [facility] Comment on above: Performed By: #### P OCGLUC #### [facility] [address] [place] [address] Dr. Nancy Montalvo Erythrocyte distribution width (RBC) [Ratio] 13.3 % Normal 11.0-15.0 [facility] [facility] Comment on above: Performed By: #### P OCGLUC #### [facility] [address] [place] [address] Dr. Nancy Montalvo Hematocrit (Bld) [Volume fraction] 37.5 % Normal 36.0-48.0 [facility] Comment on above: Performed By: #### P OCGLUC #### [facility] [address] [place] [address] Dr. Nancy Montalvo Hemoglobin (Bld) [Mass/Vol] 11.5 g/dL Critically low 12.0-16.0 [facility] Comment on above: Performed By: #### P OCGLUC #### [facility] [address] [place] [address] Dr. Nancy Montalvo IG # 0.29 10e3/ul Critically high 0.00-0.03 [facility] Comment on above: Performed By: #### P OCGLUC #### [facility] [address] [place] [address] Dr. Nancy Montalvo IG % 1.8 % Critically high 0.0-0.5 [facility] Comment on above: Performed By: #### P OCGLUC #### [facility] [address] [address] [address] Nancy Montalvo LYMPH # 2.2 103/ul Normal 1.2-3.8 [facility] Comment on above: Performed By: #### P OCGLUC #### [facility] [address] [address] [address] Nancy Montalvo Lymphocytes/100 WBC (Bld) 13.2 % Critically low 20.5-60.0 [facility] Comment on above: Performed By: #### P OCGLUC #### [facility] [address] [place] [address] Dr. Nancy Montalvo MANUAL DIFF REQ NO Normal [facility] Comment on above: Performed By: #### P OCGLUC #### [facility] [address] [place] [address] Dr. Nancy Montalvo MCH (RBC) [Entitic mass] 31.3 pg Normal 26.7-34.0 [facility] Comment on above: Performed By: #### P OCGLUC #### [facility] [address] [place] [address] Dr. Nancy Montalvo MCHC (RBC) [Mass/Vol] 30.7 g/dL Normal 29.9-35.2 [facility] Comment on above: Performed By: #### P OCGLUC #### [facility] [address] [place] [address] Dr. Nancy Montalvo MCV (RBC) [Entitic vol] 101.9 fL Critically high 81.0-99.0 [facility] Comment on above: Performed By: #### P OCGLUC #### [facility] [address] [place] [address] Dr. Nancy Montalvo MONO # 0.4 103/ul Normal 0.3-0.8 [facility] Comment on above: Performed By: #### P OCGLUC #### [facility] [address] [place] [address] Dr. Nancy Montalvo Monocytes/100 WBC (Bld) 2.7 % Normal 1.7-12.0 [facility] Comment on above: Performed By: #### P OCGLUC #### [facility] [address] [address] [address] Nancy Montalvo NEUT # 13.5 103/ul Critically high 1.4-6.5 [facility] Comment on above: Performed By: #### P OCGLUC #### [facility] [address] [address] [address] Nancy Montalvo Neutrophils/100 WBC (Bld) 81.7 % Critically high 43.0-75.0 [facility] Comment on above: Performed By: #### P OCGLUC #### [facility] [address] [place] [address] Dr. Nancy Montalvo Platelet mean volume (Bld) [Entitic vol] 13.3 fL Normal 9.5-13.5 [facility] Comment on above: Performed By: #### P OCGLUC #### [facility] [address] [place] [address] Dr. Nancy Montalvo PLT 104 103/ul Critically low 150-450 [facility] Comment on above: Performed By: #### P OCGLUC #### [facility] [address] [place] [address] Dr. Nancy Montalvo RBC 3.68 106/ul Critically low 4.20-5.40 [facility] Comment on above: Performed By: #### P OCGLUC #### [facility] [address] [place] [address] Dr. Nancy Montalvo WBC 16.5 103/ul Critically high 4.0-11.0 [facility] Comment on above: Performed By: #### P OCGLUC #### [facility] [address] [place] [address] Dr. Nancy Montalvo PROF 14(COMP METB)on 023 Albumin [Mass/Vol] 1.9 g/dL Critically low 3.4-5.0 [facility] Comment on above: Performed By: #### P OCGLUC #### [facility] [address] [address] [address] Nancy Montalvo Albumin/Globulin [Mass ratio] 0.5 {ratio} Normal [facility] Comment on above: Performed By: #### P OCGLUC #### [facility] [address] [place] [address] Dr. Nancy Montalvo ALP [Catalytic activity/Vol] 136 U/L Critically high 46-116 [facility] Comment on above: Performed By: #### P OCGLUC #### [facility] [address] [address] [address] Nancy Montalvo ALT [Catalytic activity/Vol] 144 U/L Critically high 14-59 [facility] Comment on above: Performed By: #### P OCGLUC #### [facility] [address] [place] [address] Dr. Nancy Montalvo Anion gap [Moles/Vol] 14.4 mmol/L Normal [facility] Comment on above: Performed By: #### P OCGLUC #### [facility] [address] [place] [address] Dr. Nancy Montalvo AST [Catalytic activity/Vol] 37 U/L Normal 15-37 [facility] Comment on above: Performed By: #### P OCGLUC #### [facility] [address] [address] [address] Nancy Montalvo Bilirubin [Mass/Vol] 0.5 mg/dL Normal 0.2-1.0 [facility] Comment on above: Performed By: #### P OCGLUC #### [facility] [address] [address] [address] Nancy Montalvo Calcium [Mass/Vol] 8.4 mg/dL Critically low 8.5-10.1 [facility] Comment on above: Performed By: #### P OCGLUC #### [facility] [address] [place] [address] Dr. Nancy Montalvo Chloride [Moles/Vol] 103 mmol/L Normal 98-107 [facility] Comment on above: Performed By: #### P OCGLUC #### [facility] [address] [place] [address] Dr. Nancy Montalvo CO2 [Moles/Vol] 22.5 mmol/L Normal 21.0-32.0 [facility] Comment on above: Performed By: #### P OCGLUC #### [facility] [address] [address] [address] Nancy Montalvo Creatinine [Mass/Vol] 2.66 mg/dL Critically high 0.55-1.02 [facility] Comment on above: Performed By: #### P OCGLUC #### [facility] [address] [address] [address] Nancy Montalvo EGFR-AF ITALIAN 21 mL/min/1.73m2 Critically low >=60 [facility] Comment on above: Performed By: #### P OCGLUC #### [facility] [address] [address] [address] Nancy Montalvo EGFR-NON AF ITALIAN 17 mL/min/1.73m2 Critically low >=60 [facility] Comment on above: Performed By: #### P OCGLUC #### [facility] [address] [address] [address] Nancy Montalvo Globulin (S) [Mass/Vol] 3.7 g/dL Normal [facility] Comment on above: Performed By: #### P OCGLUC #### [facility] [address] [address] [address] Nancy Montalvo Glucose [Mass/Vol] 83 mg/dL Normal 74-106 [facility] Comment on above: Performed By: #### P OCGLUC #### [facility] [address] [address] [address] Nancy Montalvo Potassium [Moles/Vol] 3.9 mmol/L Normal 3.5-5.1 [facility] Comment on above: Performed By: #### P OCGLUC #### [facility] [address] [address] [address] Nancy Montalvo Protein [Mass/Vol] 5.6 g/dL Critically low 6.4-8.2 [facility] Comment on above: Performed By: #### P OCGLUC #### [facility] [address] [address] [address] Nancy Montalvo Sodium [Moles/Vol] 136 mmol/L Normal 136-145 [facility] Comment on above: Performed By: #### P OCGLUC #### [facility] [address] [address] [address] Nancy Montalvo Urea nitrogen [Mass/Vol] 40.0 mg/dL Critically high 7.0-18.0 [facility] Comment on above: Performed By: #### P OCGLUC #### [facility] [address] [address] [address] Nancy Montalvo Urea nitrogen/Creatinine [Mass ratio] 15.0 mg/mg Normal [facility] Comment on above: Performed By: #### P OCGLUC #### [facility] [address] [place] [address] Dr. Nancy Montalvo PROTIMEon 07-11-2022 INR Coag (PPP) [Relative time] 3.29 {INR} Normal [facility] Comment on above: Performed By: #### P OCGLUC #### [facility] [address] [place] [address] Dr. Nancy Montalvo INR GUIDELINES SEE BELOW Normal [facility] Comment on above: Result Comment: ADITYA RED INR: 2.0 - 3.0 CONDITIONS NOT LISTED BELOW 2.5 - 3.5 FOR PROSTHETIC HEART VALVE REPLACEMENT 2.5 - 3.5 RECURRENT THROMBOSIS Performed By: #### P OCGLUC #### [facility] [address] [place] [address] Dr. Nancy Montalvo PT Coag (PPP) [Time] 32.6 s Critically high 9.0-11.6 [facility] Comment on above: Performed By: #### P OCGLUC #### [facility] [address] [place] [address] Dr. Nancy Montalvo PTTon 07-11-2022 aPTT Coag (Bld) [Time] 68.0 s Critically high 22.3-36.2 [facility] Comment on above: Performed By: #### P OCGLUC #### [facility] [address] [place] [address] Dr. Nancy Montalvo CARDIAC DENILSON 3-6on 3 CK [Catalytic activity/Vol] 51 U/L Normal 26-192 [facility] Comment on above: Performed By: #### P OCGLUC #### [facility] [address] [address] [address] Nancy Montalvo CK.MB [Mass/Vol] 1.01 ng/mL Normal <=3.60 [facility] Comment on above: Performed By: #### P OCGLUC #### [facility] [address] [address] [address] Nancy Montalvo HSTROP 45.8 pg/mL Normal 4.0-51.3 [facility] Comment on above: Result Comment: CUT- OFF POINTS HAVE BEEN ESTABLISHED BASED ON THE FOURTH UNIVERSAL DEFINITIONS OF MYOCARDIAL INFARCTION. THE UPPER REFERENCE LIMIT (URL) OF TROPONIN, DEFINED THE 99TH PERCENTILE OF cTnI DISTRIBUTION IN A REFERENCE POPULATION, HAS BEEN CONFIRMED THE DECISION THRESHOLD FOR AK DIAGNOSIS. Performed By: #### P OCGLUC #### [facility] [address] [address] [address] Nancy Montalvo CK [Catalytic activity/Vol] 54 U/L Normal 26-192 [facility] Comment on above: Performed By: #### P OCGLUC #### [facility] [address] [address] [address] Nancy Montalvo CK.MB [Mass/Vol] 0.89 ng/mL Normal <=3.60 [facility] Comment on above: Performed By: #### P OCGLUC #### [facility] [address] [address] [address] Nancy Montalvo HSTROP 58.5 pg/mL Critically high 4.0-51.3 [facility] Comment on above: Result Comment: CUT- OFF POINTS HAVE BEEN ESTABLISHED BASED ON THE FOURTH UNIVERSAL DEFINITIONS OF MYOCARDIAL INFARCTION. THE UPPER REFERENCE LIMIT (URL) OF TROPONIN, DEFINED THE 99TH PERCENTILE OF cTnI DISTRIBUTION IN A REFERENCE POPULATION, HAS BEEN CONFIRMED THE DECISION THRESHOLD FOR AK DIAGNOSIS. Performed By: #### P OCGLUC #### [facility] [address] [address] [address] Nancy Montalvo CBC AUTO DIFFon 07-10-2022 BASO # 0.1 103/ul Normal 0.0-0.1 [facility] Comment on above: Performed By: #### P OCGLUC #### [facility] [address] [place] [address] Dr. Nancy Montalvo Basophils/100 WBC (Bld) 0.2 % Normal 0.2-2.0 [facility] Comment on above: Performed By: #### P OCGLUC #### [facility] [address] [place] [address] Dr. Nancy Montalvo EO # 0.0 103/ul Normal 0.0-0.7 [facility] Comment on above: Performed By: #### P OCGLUC #### [facility] [address] [place] [address] Dr. Nancy Montalvo Eosinophils/100 WBC (Bld) 0.0 % Critically low 0.9-7.0 [facility] Comment on above: Performed By: #### P OCGLUC #### [facility] [address] [place] [address] Dr. Nancy Montalvo Erythrocyte distribution width (RBC) [Ratio] 13.0 % Normal 11.0-15.0 [facility] Comment on above: Performed By: #### P OCGLUC #### [facility] [address] [place] [address] Dr. Nancy Montalvo Hematocrit (Bld) [Volume fraction] 37.6 % Normal 36.0-48.0 [facility] Comment on above: Performed By: #### P OCGLUC #### [facility] [address] [place] [address] Dr. Nancy Montalvo Hemoglobin (Bld) [Mass/Vol] 12.5 g/dL Normal 12.0-16.0 [facility] Comment on above: Performed By: #### P OCGLUC #### [facility] [address] [place] [address] Dr. Nancy Montalvo IG # 0.23 10e3/ul Critically high 0.00-0.03 [facility] Comment on above: Performed By: #### P OCGLUC #### [facility] [address] [place] [address] Dr. Nancy Montalvo IG % 1.1 % Critically high 0.0-0.5 [facility] Comment on above: Performed By: #### P OCGLUC #### [facility] [address] [address] [address] Nancy Montalvo LYMPH # 1.5 103/ul Normal 1.2-3.8 [facility] Comment on above: Performed By: #### P OCGLUC #### [facility] [address] [address] [address] Nancy Montalvo Lymphocytes/100 WBC (Bld) 7.4 % Critically low 20.5-60.0 [facility] Comment on above: Performed By: #### P OCGLUC #### [facility] [address] [place] [address] Dr. Nancy Montalvo MANUAL DIFF REQ NO Normal [facility] Comment on above: Performed By: #### P OCGLUC #### [facility] [address] [place] [address] Dr. Nancy Montalvo MCH (RBC) [Entitic mass] 32.0 pg Normal 26.7-34.0 [facility] Comment on above: Performed By: #### P OCGLUC #### [facility] [address] [place] [address] Dr. Nancy Montalvo MCHC (RBC) [Mass/Vol] 33.2 g/dL Normal 29.9-35.2 [facility] Comment on above: Performed By: #### P OCGLUC #### [facility] [address] [place] [address] Dr. Nancy Montalvo MCV (RBC) [Entitic vol] 96.2 fL Normal 81.0-99.0 [facility] Comment on above: Performed By: #### P OCGLUC #### [facility] [address] [place] [address] Dr. Nancy Montalvo MONO # 0.4 103/ul Normal 0.3-0.8 [facility] Comment on above: Performed By: #### P OCGLUC #### [facility] [address] [place] [address] Dr. Nancy Montalvo Monocytes/100 WBC (Bld) 2.1 % Normal 1.7-12.0 [facility] Comment on above: Performed By: #### P OCGLUC #### [facility] [address] [address] [address] Nancy Montalvo NEUT # 18.3 103/ul Critically high 1.4-6.5 [facility] Comment on above: Performed By: #### P OCGLUC #### [facility] [address] [address] [address] Nancy Montalvo Neutrophils/100 WBC (Bld) 89.2 % Critically high 43.0-75.0 [facility] Comment on above: Performed By: #### P OCGLUC #### [facility] [address] [place] [address] Dr. Nancy Montalvo Platelet mean volume (Bld) [Entitic vol] 12.9 fL Normal 9.5-13.5 [facility] Comment on above: Performed By: #### P OCGLUC #### [facility] [address] [place] [address] Dr. Nancy Montalvo PLT 120 103/ul Critically low 150-450 [facility] Comment on above: Performed By: #### P OCGLUC #### [facility] [address] [place] [address] Dr. Nancy Montalvo RBC 3.91 106/ul Critically low 4.20-5.40 [facility] Comment on above: Performed By: #### P OCGLUC #### [facility] [address] [place] [address] Dr. Nancy Montalvo WBC 20.5 103/ul Critically high 4.0-11.0 [facility] Comment on above: Performed By: #### P OCGLUC #### [facility] [address] [place] [address] HEAD WO CONon [...] HANNA BAILON Date: 2022-07-10 14:10 Normal [facility] CULTURE BLOODon 07-10-2022 Microscopic examination of blood, culture Culture Observations: NO GROWTH AT 5 DAYS. Normal [facility] Comment on above: Performed By: #### A 1C #### [facility] [address] [address] [address] Nancy Montalvo Microscopic examination of blood, culture Culture Observations: NO GROWTH AT 5 DAYS. Normal [facility] Comment on above: Performed By: #### B [id number] #### [facility] [address] [address] [address] Nancy Montalvo Covid-19 PCR ([facility])on 06-18 SARS-CoV-2 (COVID-19) RNA MARLENE+probe Ql (Unsp spec) Not detected Normal NOT DETECTED [facility] Comment on above: Result Comment: This test is not yet approved or cleared by the [place] FDA. When there are no FDA-approved or cleared tests available, and other criteria are met, FDA can make tests available under an emergency access mechanism called an Emergency Use Authorization (EUA). The EUA for this test is supported by the New Order Clerk of Health and Human Service's (HHS's) declaration [...] SARS-CoV-2. Performed By: #### C VDTBH #### [facility] [address] [place] [address] Dr. Nancy Montalvo ER URINE PROFILEon 3 Bilirubin Ql (U) Negative Normal NEGATIVE [facility] Comment on above: Performed By: #### P OCGLUC #### [facility] [address] [place] [address] Dr. Nancy Montalvo Clarity (U) CLEAR Normal CLEAR [facility] Comment on above: Performed By: #### P OCGLUC #### [facility] [address] [place] [address] Dr. Nancy Montalvo Color (U) YELLOW Normal YELLOW [facility] Comment on above: Performed By: #### P OCGLUC #### [facility] [address] [place] [address] Dr. Nancy Montalvo ERUAHD A micrscopic examina tion will be performed if indicated. Normal [facility] Comment on above: Performed By: #### P OCGLUC #### [facility] [address] [place] [address] Dr. Nancy Montalvo Glucose Ql (U) >1000 Abnormal NEGATIVE [facility] Comment on above: Performed By: #### P OCGLUC #### [facility] [address] [place] [address] Dr. Nancy Montalvo Hemoglobin Ql (U) SMALL Abnormal NEGATIVE [facility] Comment on above: Performed By: #### P OCGLUC #### [facility] [address] [place] [address] Dr. Nancy Montalvo Ketones Ql (U) Negative Normal NEGATIVE [facility] Comment on above: Performed By: #### P OCGLUC #### [facility] [address] [place] [address] Dr. Nancy Montalvo LEUKOCYTES Negative Normal NEGATIVE [facility] Comment on above: Performed By: #### P OCGLUC #### [facility] [address] [place] [address] Dr. Nancy Montalvo Nitrite Ql (U) Negative Normal NEGATIVE [facility] Comment on above: Performed By: #### P OCGLUC #### [facility] [address] [place] [address] Dr. Nancy Montalvo pH (U) 5.5 [pH] Normal 5-9 [facility] Comment on above: Performed By: #### P OCGLUC #### [facility] [address] [address] [address] Nancy Montalvo Protein (U) [Mass/Vol] 30 mg/dL Abnormal NEGATIVE/ TRACE [facility] Comment on above: Performed By: #### P OCGLUC #### [facility] [address] [place] [address] Dr. Nancy Montalvo SPEC GRAVITY 1.015 Normal 1.005-<=1.0 25 [facility] Comment on above: Performed By: #### P OCGLUC #### [facility] [address] [place] [address] Dr. Nancy Montalvo UR MICRO IND INDICATED Normal [facility] Comment on above: Performed By: #### P OCGLUC #### [facility] [address] [place] [address] Dr. Nancy Montalvo Urobilinogen Qn (U) 0.2 {Grant'U}/dL Normal 0.2 - 1. 0 [facility] Comment on above: Performed By: #### P OCGLUC #### [facility] [address] [place] [address] Dr. Nancy Montalvo LACTATE/LACTIC ACIDon 2022 Lactate [Moles/Vol] 1.8 mmol/L Normal 0.4-2.0 [facility] Comment on above: Performed By: #### P OCGLUC #### [facility] [address] [place] [address] Dr. Nancy Montalvo Lactate [Moles/Vol] 1.7 mmol/L Normal 0.4-2.0 [facility] Comment on above: Performed By: #### P OCGLUC #### [facility] [address] [address] [address] Nancy Montalvo MYOGLOBINon 07-10-2022 OLMAN 123 ng/mL Critically high 9-82 [facility] Comment on above: Performed By: #### C MP #### [facility] [address] [place] [address] Dr. Nancy Montalvo POINT OF CARE GLUCOSEon 06-18 Glucose [Mass/Vol] 352 mg/dL Critically high 74-106 [facility] Comment on above: Performed By: #### B [id number] #### [facility] [address] [address] [address] Nancy Montalvo Glucose [Mass/Vol] 378 mg/dL Critically high 74-106 [facility] Comment on above: Performed By: #### P OCGLUC #### [facility] [address] [place] [address] Dr. Nancy Montalvo PROF CHEM 8 (BAS METB)on Anion gap [Moles/Vol] 12.1 mmol/L Normal [facility] Comment on above: Performed By: #### C MP #### [facility] [address] [place] [address] Dr. Nancy Montalvo Calcium [Mass/Vol] 8.3 mg/dL Critically low 8.5-10.1 [facility] Comment on above: Performed By: #### C MP #### [facility] [address] [place] [address] Dr. Nancy Montalvo Chloride [Moles/Vol] 101 mmol/L Normal 98-107 [facility] Comment on above: Performed By: #### C MP #### [facility] [facility] [address] [place] [address] Dr. Nancy Montalvo CO2 [Moles/Vol] 24.6 mmol/L Normal 21.0-32.0 [facility] Comment on above: Performed By: #### C MP #### [facility] [address] [place] [address] Dr. Nancy Montalvo Creatinine [Mass/Vol] 2.64 mg/dL Critically high 0.55-1.02 [facility] Comment on above: Performed By: #### C MP #### [facility] [address] [address] [address] Nancy Montalvo EGFR-AF ITALIAN 21 mL/min/1.73m2 Critically low >=60 [facility] Comment on above: Performed By: #### C MP #### [facility] [address] [address] [address] Nancy Montalvo EGFR-NON AF ITALIAN 17 mL/min/1.73m2 Critically low >=60 [facility] Comment on above: Performed By: #### C MP #### [facility] [address] [address] [address] Nancy Montalvo Glucose [Mass/Vol] 368 mg/dL Critically high 74-106 [facility] Comment on above: Performed By: #### C MP #### [facility] [address] [address] [address] Nancy Montalvo Potassium [Moles/Vol] 3.7 mmol/L Normal 3.5-5.1 [facility] Comment on above: Performed By: #### C MP #### [facility] [address] [address] [address] Nancy Montalvo Sodium [Moles/Vol] 134 mmol/L Critically low 136-145 [facility] Comment on above: Performed By: #### C MP #### [facility] [address] [address] [address] Nancy Montalvo Urea nitrogen [Mass/Vol] 33.0 mg/dL Critically high 7.0-18.0 [facility] Comment on above: Performed By: #### C MP #### [facility] [address] [address] [address] Nancy Montalvo Urea nitrogen/Creatinine [Mass ratio] 12.5 mg/mg Normal [facility] Comment on above: Performed By: #### C MP #### [facility] [address] [address] [address] Nancy Montalvo PROTIMEon 07-10-2022 INR Coag (PPP) [Relative time] 3.53 {INR} Normal [facility] Comment on above: Performed By: #### P OCGLUC #### [facility] [address] [place] [address] Dr. Nancy Montalvo INR GUIDELINES SEE BELOW Normal [facility] Comment on above: Result Comment: ADITYA RED INR: 2.0 - 3.0 CONDITIONS NOT LISTED BELOW 2.5 - 3.5 FOR PROSTHETIC HEART VALVE REPLACEMENT 2.5 - 3.5 RECURRENT THROMBOSIS Performed By: #### P OCGLUC #### [facility] [address] [place] [address] Dr. Nancy Montalvo PT Coag (PPP) [Time] 34.8 s Critically high 9.0-11.6 [facility] Comment on above: Performed By: #### P OCGLUC #### [facility] [address] [place] [address] Dr. Nancy Montalvo TROPONIN, HIGH SENSITIVITYon 07-10-2022 HSTROP 61.9 pg/mL Critically high 4.0-51.3 [facility] Comment on above: Result Comment: CUT- OFF POINTS HAVE BEEN ESTABLISHED BASED ON THE FOURTH UNIVERSAL DEFINITIONS OF MYOCARDIAL INFARCTION. THE UPPER REFERENCE LIMIT (URL) OF TROPONIN, DEFINED THE 99TH PERCENTILE OF cTnI DISTRIBUTION IN A REFERENCE POPULATION, HAS BEEN CONFIRMED THE DECISION THRESHOLD FOR AK DIAGNOSIS. Performed By: #### C MP #### [facility] [address] [place] [address] Dr. Nancy Montalvo URINE MICROSCOPIC ONLYon BACTERIA LARGE Abnormal NONE SEEN The [facility] Comment on above: Performed By: #### P OCGLUC #### [facility] [address] [place] [address] Dr. Nancy Montalvo Bacteria identified Cx Nom (U) INDICATED Normal [facility] Comment on above: Performed By: #### P OCGLUC #### [facility] [address] [place] [address] Dr. Nancy Montalvo CAST SEEN Abnormal NONE SEEN [facility] Comment on above: Performed By: #### P OCGLUC #### [facility] [address] [place] [address] Dr. Nancy Montalvo Crystals LM Nom (Urine sed) NONE SEEN Normal NONE SEEN [facility] Comment on above: Performed By: #### P OCGLUC #### [facility] [address] [address] [address] Nancy Montalvo Epithelial cells LM Ql (Urine sed) FEW Abnormal NONE SEEN /RARE [facility] Comment on above: Performed By: #### P OCGLUC #### [facility] [address] [address] [address] Nancy Montalvo FINE GRANULAR CAST RARE Normal [facility] Comment on above: Performed By: #### P OCGLUC #### [facility] [address] [address] [address] Nancy Montalvo HYALINE CAST RARE Normal [facility] Comment on above: Performed By: #### P OCGLUC #### [facility] [address] [address] [address] Nancy Montalvo MUCOUS NONE SEEN Normal NONE SEEN [facility] Comment on above: Performed By: #### P OCGLUC #### [facility] [address] [address] [address] Nancy Montalvo RBC 10-20 Abnormal 0-2 [facility] Comment on above: Performed By: #### P OCGLUC #### [facility] [address] [address] [address] Nancy Montalvo WBC 10-20 Abnormal NONE SEEN [facility] Comment on above: Performed By: #### P OCGLUC #### [facility] [address] [address] [address] Nancy Montalvo XR CHEST 1 Von [...] by: HANNA BAILON Date: 2022-07-10 14:14 Normal [facility] CULTURE URINEon 04-27-2022 CULTURE URINE Isolate 1 [...] F Trimethoprim/Sulfamethoxazo le <=20 S F Normal [facility] Comment on above: Performed By: #### A 1C #### [facility] [address] [place] [address] Dr. Nancy Montalvo INSULINon 04-26-2022 Insulin 42.6 uIU/mL Critically high 2.6-24.9 [facility] Comment on above: Performed By: #### A 1C #### [facility] [address] [place] [address] Dr. Nancy Montalvo CBC AUTO DIFFon 04-25-2022 BASO # 0.1 103/ul Normal 0.0-0.1 [facility] Comment on above: Performed By: #### A 1C #### [facility] [address] [place] [address] Dr. Nancy Montalvo Basophils/100 WBC (Bld) 0.5 % Normal 0.2-2.0 [facility] Comment on above: Performed By: #### A 1C #### [facility] [address] [place] [address] Dr. Nancy Montalvo EO # 0.4 103/ul Normal 0.0-0.7 [facility] Comment on above: Performed By: #### A 1C #### [facility] [address] [place] [address] Dr. Nancy Montalvo Eosinophils/100 WBC (Bld) 3.1 % Normal 0.9-7.0 [facility] Comment on above: Performed By: #### A 1C #### [facility] [address] [place] [address] Dr. Nancy Montalvo Erythrocyte distribution width (RBC) [Ratio] 14.6 % Normal 11.0-15.0 [facility] Comment on above: Performed By: #### A 1C #### [facility] [address] [place] [address] Dr. Nancy Montalvo Hematocrit (Bld) [Volume fraction] 39.3 % Normal 36.0-48.0 [facility] Comment on above: Performed By: #### A 1C #### [facility] [address] [place] [address] Dr. Nancy Montalvo Hemoglobin (Bld) [Mass/Vol] 11.9 g/dL Critically low 12.0-16.0 [facility] Comment on above: Performed By: #### A 1C #### [facility] [address] [place] [address] Dr. Nancy Montalvo IG # 0.03 10e3/ul Normal 0.00-0.03 [facility] Comment on above: Performed By: #### A 1C #### [facility] [address] [place] [address] Dr. Nancy Montalvo IG % 0.2 % Normal 0.0-0.5 [facility] Comment on above: Performed By: #### A 1C #### [facility] [address] [place] [address] Dr. Nancy Montalvo LYMPH # 3.6 103/ul Normal 1.2-3.8 [facility] Comment on above: Performed By: #### A 1C #### [facility] [address] [place] [address] Dr. Nancy Montalvo Lymphocytes/100 WBC (Bld) 29.7 % Normal 20.5-60.0 [facility] Comment on above: Performed By: #### A 1C #### [facility] [address] [place] [address] Dr. Nancy Montalvo MANUAL DIFF REQ NO Normal [facility] Comment on above: Performed By: #### A 1C #### [facility] [address] [place] [address] Dr. Nancy Montalvo MCH (RBC) [Entitic mass] 31.9 pg Normal 26.7-34.0 [facility] Comment on above: Performed By: #### A 1C #### [facility] [address] [place] [address] Dr. Nancy Montalvo MCHC (RBC) [Mass/Vol] 30.3 g/dL Normal 29.9-35.2 [facility] Comment on above: Performed By: #### A 1C #### [facility] [address] [place] [address] Dr. Nancy Montalvo MCV (RBC) [Entitic vol] 105.4 fL Critically high 81.0-99.0 [facility] Comment on above: Performed By: #### A 1C #### [facility] [address] [place] [address] Dr. Nancy Montalvo MONO # 0.8 103/ul Normal 0.3-0.8 [facility] Comment on above: Performed By: #### A 1C #### [facility] [address] [place] [address] Dr. Nancy Montalvo Monocytes/100 WBC (Bld) 7.0 % Normal 1.7-12.0 [facility] Comment on above: Performed By: #### A 1C #### [facility] [address] [place] [address] Dr. Nancy Montalvo NEUT # 7.2 103/ul Critically high 1.4-6.5 [facility] Comment on above: Performed By: #### A 1C #### [facility] [address] [place] [address] Dr. Nancy Montalvo Neutrophils/100 WBC (Bld) 59.5 % Normal 43.0-75.0 [facility] Comment on above: Performed By: #### A 1C #### [facility] [address] [place] [address] Dr. Nancy Montalvo Platelet mean volume (Bld) [Entitic vol] 11.5 fL Normal 9.5-13.5 [facility] Comment on above: Performed By: #### A 1C #### [facility] [address] [place] [address] Dr. Nancy Montalvo PLT 241 103/ul Normal 150-450 [facility] Comment on above: Performed By: #### A 1C #### [facility] [address] [place] [address] Dr. Nancy Montalvo RBC 3.73 106/ul Critically low 4.20-5.40 [facility] Comment on above: Performed By: #### A 1C #### [facility] [address] [place] [address] Dr. Nancy Montalvo WBC 12.0 103/ul Critically high 4.0-11.0 [facility] Comment on above: Performed By: #### A 1C #### [facility] [address] [place] [address] Dr. Nancy Montalvo FREE THYROXINE INDEX T7on FTI 2.01 Normal 1.30-4.50 [facility] Comment on above: Performed By: #### B [id number] #### [facility] [address] [place] [address] Dr. Nancy Montalvo T3U 33.0 % Normal 30.0-39.0 [facility] Comment on above: Performed By: #### B [id number] #### [facility] [address] [place] [address] Dr. Nancy Montalvo T4 [Mass/Vol] 6.10 ug/dL Normal 4.80-13.90 [facility] Comment on above: Performed By: #### B [id number] #### [facility] [address] [place] [address] Dr. Nancy Montalvo GLYCOHEMOGLOBIN A1Con 2022 ADA RECOMMENDATION SEE BELOW Normal [facility] Comment on above: Result Comment: ADA RECOMMENDED LIMIT 4.0 - 6.0 ADA THERAPEUTIC TARGET < 7.0 ACTION SUGGESTED > 7.0 Performed By: #### U AMIC #### [facility] [address] [place] [address] Dr. Nancy Montalvo Glucose [Mass/Vol] 134 mg/dL Normal [facility] Comment on above: Performed By: #### U AMIC #### [facility] [address] [place] [address] Dr. Nancy Montalvo HbA1c (Bld) [Mass fraction] 6.3 % Critically high 4.5-6.2 [facility] Comment on above: Performed By: #### U AMIC #### [facility] [address] [place] [address] Dr. Nancy Montalvo IRONon 04-25-2022 Iron [Mass/Vol] 98.0 ug/dL Normal 50.0-170.0 [facility] Comment on above: Performed By: #### C MP #### [facility] [address] [place] [address] Dr. Nancy Montalvo LIPID PROFILEon 04-25-2022 CHOL-HDL RATIO NORM SEE BELOW Normal [facility] Comment on above: Result Comment: 3.3 - 4.4 LOW RISK 4.4 - 7.1 AVERAGE RISK 7.1 - 11.0 MODERATE RISK >11.0 HIGH RISK Performed By: #### B [id number] #### [facility] [address] [place] [address] Dr. Nancy Montalvo Cholesterol [Mass/Vol] 156 mg/dL Normal <=200 [facility] Comment on above: Performed By: #### B [id number] #### [facility] [address] [place] [address] Dr. Nancy Montalvo Cholesterol in HDL [Mass/Vol] 55 mg/dL Normal 40-60 [facility] Comment on above: Performed By: #### B [id number] #### [facility] [address] [address] [address] Nancy Montalvo Cholesterol in LDL [Mass/Vol] 74.4 mg/dL Normal [facility] Comment on above: Performed By: #### B LDCX1 #### [facility] [address] [address] [address] Nancy Montalvo Cholesterol.total/C holesterol in HDL [Mass ratio] 2.8 {ratio} Normal [facility] Comment on above: Performed By: #### B [id number] #### [facility] [address] [place] [address] Dr. Nancy Montalvo HDL NORMAL > or = 60 mg/dl - LO W CARDIOVASCULAR RISK <40 mg/dl - HIGH CARDIOVASCULAR RISK Normal [facility] Comment on above: Performed By: #### B [id number] #### [facility] [address] [place] [address] Dr. Nancy Montalvo LDL CALC NORMAL SEE BELOW Normal [facility] Comment on above: Result Comment: <100 mg/dl OPTIMAL 100 - 129 mg/dl NEAR OR ABOVE OPTIMAL 130 - 159 mg/dl BORDERLINE HIGH 160 - 189 mg/dl HIGH >190 mg/dl VERY HIGH Performed By: #### B [id number] #### [facility] [address] [place] [address] Dr. Nancy Montalvo Triglyceride [Mass/Vol] 133 mg/dL Normal <=150 [facility] Comment on above: Performed By: #### B [id number] #### [facility] [address] [place] [address] Dr. Nancy Montalvo VLDL CALC 26.6 mg/dL Normal [facility] Comment on above: Performed By: #### B [id number] #### [facility] [address] [place] [address] Dr. Nancy Montalvo PROF 14(COMP METB)on 023 Albumin [Mass/Vol] 3.5 g/dL Normal 3.4-5.0 [facility] Comment on above: Performed By: #### B [id number] #### [facility] [address] [address] [address] Nancy Montalvo Albumin/Globulin [Mass ratio] 0.9 {ratio} Normal [facility] Comment on above: Performed By: #### B [id number] #### [facility] [address] [address] [address] Nancy Montalvo ALP [Catalytic activity/Vol] 96 U/L Normal 46-116 [facility] Comment on above: Performed By: #### B [id number] #### [facility] [address] [address] [address] Nancy Montalvo ALT [Catalytic activity/Vol] 58 U/L Normal 14-59 [facility] Comment on above: Performed By: #### B [id number] #### [facility] [address] [place] [address] Dr. Nancy Montalvo Anion gap [Moles/Vol] 15.4 mmol/L Normal [facility] Comment on above: Performed By: #### B [id number] #### [facility] [address] [place] [address] Dr. Nancy Montalvo AST [Catalytic activity/Vol] 40 U/L Critically high 15-37 [facility] Comment on above: Performed By: #### B [id number] #### [facility] [address] [place] [address] Dr. Nancy Montalvo Bilirubin [Mass/Vol] 0.3 mg/dL Normal 0.2-1.0 [facility] Comment on above: Performed By: #### B [id number] #### [facility] [address] [address] [address] Nancy Montalvo Calcium [Mass/Vol] 9.0 mg/dL Normal 8.5-10.1 [facility] Comment on above: Performed By: #### B [id number] #### [facility] [address] [address] [address] Nancy Montalvo Chloride [Moles/Vol] 107 mmol/L Normal 98-107 [facility] Comment on above: Performed By: #### B [id number] #### [facility] [address] [address] [address] Nancy Montalvo CO2 [Moles/Vol] 23.4 mmol/L Normal 21.0-32.0 [facility] Comment on above: Performed By: #### B [id number] #### [facility] [address] [address] [address] Nancy Montalvo Creatinine [Mass/Vol] 2.70 mg/dL Critically high 0.55-1.02 [facility] Comment on above: Performed By: #### B [id number] #### [facility] [address] [address] [address] Nancy Montalvo EGFR-AF ITALIAN 20 mL/min/1.73m2 Critically low >=60 [facility] Comment on above: Performed By: #### B [id number] #### [facility] [address] [place] [address] Dr. Nancy Montalvo EGFR-NON AF ITALIAN 17 mL/min/1.73m2 Critically low >=60 [facility] Comment on above: Performed By: #### B [id number] #### [facility] [address] [address] [address] Nancy Montalvo Globulin (S) [Mass/Vol] 3.9 g/dL Normal [facility] Comment on above: Performed By: #### B [id number] #### [facility] [address] [place] [address] Dr. Nancy Montalvo Glucose [Mass/Vol] 154 mg/dL Critically high 74-106 T [facility] Comment on above: Performed By: #### B [id number] #### [facility] [address] [address] [address] Nancy Montalvo Potassium [Moles/Vol] 3.8 mmol/L Normal 3.5-5.1 [facility] Comment on above: Performed By: #### B [id number] #### [facility] [address] [address] [address] Nancy Montalvo Protein [Mass/Vol] 7.4 g/dL Normal 6.4-8.2 [facility] Comment on above: Performed By: #### B [id number] #### [facility] [address] [address] [address] Nancy Montalvo Sodium [Moles/Vol] 142 mmol/L Normal 136-145 [facility] Comment on above: Performed By: #### B [id number] #### [facility] [address] [place] [address] Dr. Nancy Montalvo Urea nitrogen [Mass/Vol] 46.0 mg/dL Critically high 7.0-18.0 [facility] Comment on above: Performed By: #### B [id number] #### [facility] [address] [place] [address] Dr. Nancy Montalvo Urea nitrogen/Creatinine [Mass ratio] 17.0 mg/mg Normal [facility] Comment on above: Performed By: #### B [id number] #### [facility] [address] [place] [address] Dr. Nancy Montalvo TSHon 04-25-2022 TSH 2.035 uIU/mL Normal 0.358-3.740 [facility] Comment on above: Performed By: #### B [id number] #### [facility] [address] [place] [address] Dr. Nancy Montalvo UA RANDOM W/MICROSCOPICon BACTERIA MODERATE Abnormal NONE SEEN [facility] Comment on above: Performed By: #### U AMIC #### [facility] [address] [place] [address] Dr. Nancy Montalvo Bilirubin Ql (U) Negative Normal NEGATIVE [facility] Comment on above: Performed By: #### U AMIC #### [facility] [address] [place] [address] Dr. Nancy Montalvo CAST NONE SEEN Normal NONE SEEN [facility] Comment on above: Performed By: #### U AMIC #### [facility] [address] [place] [address] Dr. Nancy Montalvo Clarity (U) CLEAR Normal CLEAR [facility] Comment on above: Performed By: #### U AMIC #### [facility] [address] [place] [address] Dr. Nancy Montalvo Color (U) LT. YELLOW Normal YELLOW [facility] Comment on above: Performed By: #### U AMIC #### [facility] [address] [address] [address] Nancy Montalvo Crystals LM Nom (Urine sed) NONE SEEN Normal NONE SEEN [facility] Comment on above: Performed By: #### U AMIC #### [facility] [address] [address] [address] Nancy Montalvo Epithelial cells LM Ql (Urine sed) FEW Abnormal NONE SEEN /RARE [facility] Comment on above: Performed By: #### U AMIC #### [facility] [address] [address] [address] Nancy Montalvo Glucose Ql (U) Negative Normal NEGATIVE [facility] Comment on above: Performed By: #### U AMIC #### [facility] [address] [address] [address] Nancy Montalvo Hemoglobin Ql (U) Negative Normal NEGATIVE [facility] Comment on above: Performed By: #### U AMIC #### [facility] [address] [address] [address] Nancy Montalvo Ketones Ql (U) Negative Normal NEGATIVE [facility] Comment on above: Performed By: #### U AMIC #### [facility] [address] [address] [address] Nancy Montalvo LEUKOCYTES MODERATE Abnormal NEGATIVE [facility] Comment on above: Performed By: #### U AMIC #### [facility] [address] [address] [address] Nancy Montalvo MUCOUS NONE SEEN Normal NONE SEEN [facility] Comment on above: Performed By: #### U AMIC #### [facility] [address] [address] [address] Nancy Montalvo Nitrite Ql (U) Positive Abnormal NEGATIVE [facility] Comment on above: Performed By: #### U AMIC #### [facility] [address] [address] [address] Nancy Montalvo pH (U) 5.5 [pH] Normal 5-9 The [facility] Comment on above: Performed By: #### U AMIC #### [facility] [address] [address] [address] Nancy Montalvo RBC 0-2 Normal 0-2 [facility] Comment on above: Performed By: #### U AMIC #### [facility] [address] [address] [address] Nancy Montalvo SPEC GRAVITY 1.015 Normal 1.005-<=1.0 25 [facility] Comment on above: Performed By: #### U AMIC #### [facility] [address] [address] [address] Nancy Montalvo UA PROTEIN Negative Normal NEGATIVE/ TRACE [facility] Comment on above: Performed By: #### U AMIC #### [facility] [address] [address] [address] Nancy Montalvo Urobilinogen Qn (U) 0.2 {Grant'U}/dL Normal 0.2 - 1. 0 [facility] Comment on above: Performed By: #### U AMIC #### [facility] [address] [place] [address] Dr. Nancy Montalvo WBC 10-20 Abnormal NONE SEEN The [facility] Comment on above: Performed By: #### U AMIC #### [facility] [address] [place] [address] Dr. Nancy Montalvo ECHOCARDIO M/2D COMPLETEon 0 03-29-2022 ECHOCARDIO M/2D COMPLETE Patient: GEMMA LEWIS Exam Date: 03/29/2022 : 1935 Gender:F Ordering : BERNICE DELEON Admission #: [id number] Family : DR CHASE MÉNDEZ . Order #: [id number] CLICK HERE TO VIEW EXAM ECHOCARDIOGRAM REPORT [...] Ma M.D. on 03/31/2022 at 12:16 Normal [facility] GLYCOHEMOGLOBIN A1Con 2021 ADA RECOMMENDATION SEE BELOW Normal [facility] Comment on above: Result Comment: ADA RECOMMENDED LIMIT 4.0 - 6.0 ADA THERAPEUTIC TARGET < 7.0 ACTION SUGGESTED > 7.0 Performed By: #### A 1C #### [facility] [address] [place] [address] Dr. Nancy Montalvo Glucose [Mass/Vol] 97 mg/dL Normal [facility] Comment on above: Performed By: #### A 1C #### [facility] [address] [address] [address] Nancy Montalvo HbA1c (Bld) [Mass fraction] 5.0 % Normal 4.5-6.2 [facility] Comment on above: Performed By: #### A 1C #### [facility] [address] [place] [address] Dr. Nancy Montalvo PROTIMEon 10-24-2021 INR Coag (PPP) [Relative time] 2.17 {INR} Normal [facility] Comment on above: Performed By: #### A 1C #### [facility] [address] [place] [address] Dr. Nancy Montalvo INR GUIDELINES SEE BELOW Normal [facility] Comment on above: Result Comment: ADITYA RED INR: 2.0 - 3.0 CONDITIONS NOT LISTED BELOW 2.5 - 3.5 FOR PROSTHETIC HEART VALVE REPLACEMENT 2.5 - 3.5 RECURRENT THROMBOSIS Performed By: #### A 1C #### [facility] [address] [place] [address] Dr. Nancy Montalvo PT Coag (PPP) [Time] 22.3 s Critically high 9.0-11.6 [facility] Comment on above: Performed By: #### A 1C #### [facility] [address] [place] [address] Dr. Nancy Montalvo PTTon 10-24-2021 aPTT Coag (Bld) [Time] 35.0 s Normal 22.3-36.2 [facility] Comment on above: Performed By: #### A 1C #### [facility] [address] [place] [address] Dr. Nancy Montalvo BNPon 09-16-2021 Natriuretic peptide B (Bld) [Mass/Vol] 1955.0 pg/mL Critically high <=1,800.0 [facility] Comment on above: Performed By: #### P OCGLUC #### [facility] [address] [place] [address] Dr. Nancy Montalvo CBC AUTO DIFFon 09-16-2021 BASO # 0.0 103/ul Normal 0.0-0.1 [facility] Comment on above: Performed By: #### P OCGLUC #### [facility] [address] [place] [address] Dr. Nancy Montalvo Basophils/100 WBC (Bld) 0.4 % Normal 0.2-2.0 [facility] Comment on above: Performed By: #### P OCGLUC #### [facility] [address] [place] [address] Dr. Nancy Montalvo EO # 0.2 103/ul Normal 0.0-0.7 [facility] Comment on above: Performed By: #### P OCGLUC #### [facility] [address] [place] [address] Dr. Nancy Montalvo Eosinophils/100 WBC (Bld) 3.0 % Normal 0.9-7.0 [facility] Comment on above: Performed By: #### P OCGLUC #### [facility] [address] [place] [address] Dr. Nancy Montalvo Erythrocyte distribution width (RBC) [Ratio] 13.0 % Normal 11.0-15.0 [facility] Comment on above: Performed By: #### P OCGLUC #### [facility] [address] [place] [address] Dr. Nancy Montalvo Hematocrit (Bld) [Volume fraction] 29.3 % Critically low 36.0-48.0 [facility] Comment on above: Performed By: #### P OCGLUC #### [facility] [address] [place] [address] Dr. Nancy Montalvo Hemoglobin (Bld) [Mass/Vol] 9.2 g/dL Critically low 12.0-16.0 [facility] Comment on above: Performed By: #### P OCGLUC #### [facility] [address] [place] [address] Dr. Nancy Montalvo IG # 0.02 10e3/ul Normal 0.00-0.03 [facility] Comment on above: Performed By: #### P OCGLUC #### [facility] [address] [place] [address] Dr. Nancy Montalvo IG % 0.2 % Normal 0.0-0.5 [facility] Comment on above: Performed By: #### P OCGLUC #### [facility] [address] [place] [address] Dr. Nancy Montalvo LYMPH # 3.1 103/ul Normal 1.2-3.8 [facility] Comment on above: Performed By: #### P OCGLUC #### [facility] [address] [place] [address] Dr. Nancy Montalvo Lymphocytes/100 WBC (Bld) 37.7 % Normal 20.5-60.0 [facility] Comment on above: Performed By: #### P OCGLUC #### [facility] [address] [place] [address] Dr. Nancy Montalvo MANUAL DIFF REQ NO Normal [facility] Comment on above: Performed By: #### P OCGLUC #### [facility] [address] [place] [address] Dr. Nancy Montalvo MCH (RBC) [Entitic mass] 32.4 pg Normal 26.7-34.0 [facility] Comment on above: Performed By: #### P OCGLUC #### [facility] [address] [place] [address] Dr. Nancy Montalvo MCHC (RBC) [Mass/Vol] 31.4 g/dL Normal 29.9-35.2 [facility] Comment on above: Performed By: #### P OCGLUC #### [facility] [address] [place] [address] Dr. Nancy Montalvo MCV (RBC) [Entitic vol] 103.2 fL Critically high 81.0-99.0 [facility] Comment on above: Performed By: #### P OCGLUC #### [facility] [address] [place] [address] Dr. Nancy Montalvo MONO # 0.8 103/ul Normal 0.3-0.8 [facility] Comment on above: Performed By: #### P OCGLUC #### [facility] [address] [place] [address] Dr. Nancy Montalvo Monocytes/100 WBC (Bld) 9.3 % Normal 1.7-12.0 [facility] Comment on above: Performed By: #### P OCGLUC #### [facility] [address] [place] [address] Dr. Nancy Montalvo NEUT # 4.0 103/ul Normal 1.4-6.5 [facility] Comment on above: Performed By: #### P OCGLUC #### [facility] [address] [place] [address] Dr. Nancy Montalvo Neutrophils/100 WBC (Bld) 49.4 % Normal 43.0-75.0 [facility] Comment on above: Performed By: #### P OCGLUC #### [facility] [address] [place] [address] Dr. Nancy Montalvo Platelet mean volume (Bld) [Entitic vol] 12.5 fL Normal 9.5-13.5 [facility] Comment on above: Performed By: #### P OCGLUC #### [facility] [address] [place] [address] Dr. Nancy Montalvo PLT 137 103/ul Critically low 150-450 [facility] Comment on above: Performed By: #### P OCGLUC #### [facility] [address] [place] [address] Dr. Nancy Montalvo RBC 2.84 106/ul Critically low 4.20-5.40 [facility] Comment on above: Performed By: #### P OCGLUC #### [facility] [address] [place] [address] Dr. Nancy Montalvo WBC 8.1 103/ul Normal 4.0-11.0 [facility] Comment on above: Performed By: #### P OCGLUC #### [facility] [address] [place] [address] Dr. Nancy Montalvo PROF 14(COMP METB)on 022 Albumin [Mass/Vol] 2.5 g/dL Critically low 3.4-5.0 [facility] Comment on above: Performed By: #### A 1C #### [facility] [address] [place] [address] Dr. Nancy Montalvo Albumin/Globulin [Mass ratio] 0.8 {ratio} Normal [facility] Comment on above: Performed By: #### A 1C #### [facility] [address] [place] [address] Dr. Nancy Montalvo ALP [Catalytic activity/Vol] 52 U/L Normal 46-116 [facility] Comment on above: Performed By: #### A 1C #### [facility] [address] [place] [address] Dr. Nancy Montalvo ALT [Catalytic activity/Vol] 39 U/L Normal 14-59 [facility] Comment on above: Performed By: #### A 1C #### [facility] [address] [address] [address] Nancy Montalvo Anion gap [Moles/Vol] 10.7 mmol/L Normal [facility] Comment on above: Performed By: #### A 1C #### [facility] [address] [address] [address] Nancy Montalvo AST [Catalytic activity/Vol] 36 U/L Normal 15-37 [facility] Comment on above: Performed By: #### A 1C #### [facility] [address] [address] [address] Nancy Montalvo Bilirubin [Mass/Vol] 0.4 mg/dL Normal 0.2-1.0 [facility] Comment on above: Performed By: #### A 1C #### [facility] [address] [address] [address] Nancy Montalvo Calcium [Mass/Vol] 8.7 mg/dL Normal 8.5-10.1 [facility] Comment on above: Performed By: #### A 1C #### [facility] [address] [address] [address] Nancy Montalvo Chloride [Moles/Vol] 105 mmol/L Normal 98-107 [facility] Comment on above: Performed By: #### A 1C #### [facility] [address] [address] [address] Nancy Montalvo CO2 [Moles/Vol] 26.6 mmol/L Normal 21.0-32.0 [facility] Comment on above: Performed By: #### A 1C #### [facility] [address] [address] [address] Nancy Montalvo Creatinine [Mass/Vol] 2.29 mg/dL Critically high 0.55-1.02 [facility] Comment on above: Performed By: #### A 1C #### [facility] [address] [address] [address] Nancy Montalvo EGFR-AF ITALIAN 24 mL/min/1.73m2 Critically low >=60 [facility] Comment on above: Performed By: #### A 1C #### [facility] [address] [address] [address] Nancy Montalvo EGFR-NON AF ITALIAN 20 mL/min/1.73m2 Critically low >=60 [facility] Comment on above: Performed By: #### A 1C #### [facility] [address] [address] [address] Nancy Montalvo Globulin (S) [Mass/Vol] 3.2 g/dL Normal [facility] Comment on above: Performed By: #### A 1C #### [facility] [address] [address] [address] Nancy Montalvo Glucose [Mass/Vol] 88 mg/dL Normal 74-106 [facility] Comment on above: Performed By: #### A 1C #### [facility] [address] [address] [address] Nancy Montalvo Potassium [Moles/Vol] 4.3 mmol/L Normal 3.5-5.1 [facility] Comment on above: Performed By: #### A 1C #### [facility] [address] [address] [address] Nancy Montalvo Protein [Mass/Vol] 5.7 g/dL Critically low 6.4-8.2 [facility] e [facility] Comment on above: Performed By: #### A 1C #### [facility] [address] [address] [address] Nancy Montalvo Sodium [Moles/Vol] 138 mmol/L Normal 136-145 [facility] Comment on above: Performed By: #### A 1C #### [facility] [address] [address] [address] Nancy Montalvo Urea nitrogen [Mass/Vol] 58.0 mg/dL Critically high 7.0-18.0 [facility] Comment on above: Performed By: #### A 1C #### [facility] [address] [address] [address] Nancy Montalvo Urea nitrogen/Creatinine [Mass ratio] 25.3 mg/mg Normal [facility] Comment on above: Performed By: #### A 1C #### [facility] [address] [place] [address] Dr. Nancy Montalvo PROTIMEon 09-16-2021 INR Coag (PPP) [Relative time] 2.73 {INR} Normal [facility] Comment on above: Performed By: #### P T #### [facility] [address] [place] [address] Dr. Nancy Montalvo INR GUIDELINES SEE BELOW Normal [facility] Comment on above: Result Comment: ADITYA RED INR: 2.0 - 3.0 CONDITIONS NOT LISTED BELOW 2.5 - 3.5 FOR PROSTHETIC HEART VALVE REPLACEMENT 2.5 - 3.5 RECURRENT THROMBOSIS Performed By: #### P T #### [facility] [address] [place] [address] Dr. Nancy Montalvo PT Coag (PPP) [Time] 27.6 s Critically high 9.0-11.6 [facility] Comment on above: Performed By: #### P T #### [facility] [address] [place] [address] Dr. Nancy Montalvo BNPon 09-15-2021 Natriuretic peptide B (Bld) [Mass/Vol] 1425.0 pg/mL Normal <=1,800.0 [facility] Comment on above: Performed By: #### U AMIC #### [facility] [address] [place] [address] Dr. Nancy Montalvo CBC AUTO DIFFon 09-15-2021 BASO # 0.0 103/ul Normal 0.0-0.1 [facility] Comment on above: Performed By: #### C MP #### [facility] [address] [place] [address] Dr. Nancy Montalvo Basophils/100 WBC (Bld) 0.4 % Normal 0.2-2.0 [facility] Comment on above: Performed By: #### C MP #### [facility] [address] [place] [address] Dr. Nancy Montalvo EO # 0.2 103/ul Normal 0.0-0.7 [facility] Comment on above: Performed By: #### C MP #### [facility] [address] [place] [address] Dr. Nancy Montalvo Eosinophils/100 WBC (Bld) 3.1 % Normal 0.9-7.0 [facility] Comment on above: Performed By: #### C MP #### [facility] [address] [place] [address] Dr. Nancy Montalvo Erythrocyte distribution width (RBC) [Ratio] 13.2 % Normal 11.0-15.0 [facility] Comment on above: Performed By: #### C MP #### [facility] [address] [place] [address] Dr. Nancy Montalvo Hematocrit (Bld) [Volume fraction] 30.1 % Critically low 36.0-48.0 [facility] Comment on above: Performed By: #### C MP #### [facility] [address] [place] [address] Dr. Nancy Montalvo Hemoglobin (Bld) [Mass/Vol] 9.3 g/dL Critically low 12.0-16.0 [facility] Comment on above: Performed By: #### C MP #### [facility] [address] [place] [address] Dr. Nancy Montalvo IG # 0.02 10e3/ul Normal 0.00-0.03 [facility] Comment on above: Performed By: #### C MP #### [facility] [address] [place] [address] Dr. Nancy Montalvo IG % 0.3 % Normal 0.0-0.5 [facility] Comment on above: Performed By: #### C MP #### [facility] [address] [place] [address] Dr. Nancy Montalvo LYMPH # 2.8 103/ul Normal 1.2-3.8 [facility] Comment on above: Performed By: #### C MP #### [facility] [address] [place] [address] Dr. Nancy Montalvo Lymphocytes/100 WBC (Bld) 35.8 % Normal 20.5-60.0 [facility] Comment on above: Performed By: #### C MP #### [facility] [address] [address] [address] Nancy Montalvo MANUAL DIFF REQ NO Normal [facility] Comment on above: Performed By: #### C MP #### [facility] [address] [address] [address] Nancy Montalvo MCH (RBC) [Entitic mass] 32.3 pg Normal 26.7-34.0 [facility] Comment on above: Performed By: #### C MP #### [facility] [address] [address] [address] Nancy Montalvo MCHC (RBC) [Mass/Vol] 30.9 g/dL Normal 29.9-35.2 [facility] Comment on above: Performed By: #### C MP #### [facility] [address] [place] [address] Dr. Nancy Montalvo MCV (RBC) [Entitic vol] 104.5 fL Critically high 81.0-99.0 [facility] Comment on above: Performed By: #### C MP #### [facility] [address] [place] [address] Dr. Nancy Montalvo MONO # 0.7 103/ul Normal 0.3-0.8 [facility] Comment on above: Performed By: #### C MP #### [facility] [address] [place] [address] Dr. Nancy Montalvo Monocytes/100 WBC (Bld) 9.4 % Normal 1.7-12.0 [facility] Comment on above: Performed By: #### C MP #### [facility] [address] [place] [address] Dr. Nancy Montalvo NEUT # 4.0 103/ul Normal 1.4-6.5 [facility] Comment on above: Performed By: #### C MP #### [facility] [address] [place] [address] Dr. Nancy Montalvo Neutrophils/100 WBC (Bld) 51.0 % Normal 43.0-75.0 [facility] Comment on above: Performed By: #### C MP #### [facility] [address] [address] [address] Nancy Montalvo Platelet mean volume (Bld) [Entitic vol] 12.6 fL Normal 9.5-13.5 [facility] Comment on above: Performed By: #### C MP #### [facility] [address] [place] [address] Dr. Nancy Montalvo PLT 132 103/ul Critically low 150-450 [facility] Comment on above: Performed By: #### C MP #### [facility] [address] [address] [address] Nancy oMntalvo RBC 2.88 106/ul Critically low 4.20-5.40 [facility] Comment on above: Performed By: #### C MP #### [facility] [address] [place] [address] Dr. Nancy Montalvo WBC 7.9 103/ul Normal 4.0-11.0 [facility] Comment on above: Performed By: #### C MP #### [facility] [address] [place] [address] Dr. Nancy Montalvo PROF 14(COMP METB)on 022 Albumin [Mass/Vol] 2.5 g/dL Critically low 3.4-5.0 [facility] Comment on above: Performed By: #### U AMIC #### [facility] [address] [place] [address] Dr. Nancy Montalvo Albumin/Globulin [Mass ratio] 0.8 {ratio} Normal [facility] Comment on above: Performed By: #### U AMIC #### [facility] [address] [place] [address] Dr. Nancy Montalvo ALP [Catalytic activity/Vol] 54 U/L Normal 46-116 [facility] Comment on above: Performed By: #### U AMIC #### [facility] [address] [place] [address] Dr. Nancy Montalvo ALT [Catalytic activity/Vol] 39 U/L Normal 14-59 [facility] Comment on above: Performed By: #### U AMIC #### [facility] [address] [place] [address] Dr. Nancy Montalvo Anion gap [Moles/Vol] 13.5 mmol/L Normal [facility] Comment on above: Performed By: #### U AMIC #### [facility] [address] [address] [address] Nancy Montalvo AST [Catalytic activity/Vol] 33 U/L Normal 15-37 [facility] Comment on above: Performed By: #### U AMIC #### [facility] [address] [address] [address] Nancy Montalvo Bilirubin [Mass/Vol] 0.2 mg/dL Normal 0.2-1.0 [facility] Comment on above: Performed By: #### U AMIC #### [facility] [address] [address] [address] Nancy Montalvo Calcium [Mass/Vol] 8.5 mg/dL Normal 8.5-10.1 [facility] Comment on above: Performed By: #### U AMIC #### [facility] [address] [address] [address] Nancy Montalvo Chloride [Moles/Vol] 104 mmol/L Normal 98-107 [facility] Comment on above: Performed By: #### U AMIC #### [facility] [address] [address] [address] Nancy Montalvo CO2 [Moles/Vol] 23.3 mmol/L Normal 21.0-32.0 [facility] Comment on above: Performed By: #### U AMIC #### [facility] [address] [address] [address] Nancy Montalvo Creatinine [Mass/Vol] 2.66 mg/dL Critically high 0.55-1.02 [facility] Comment on above: Performed By: #### U AMIC #### [facility] [address] [address] [address] Nancy Montalvo EGFR-AF ITALIAN 21 mL/min/1.73m2 Critically low >=60 [facility] Comment on above: Performed By: #### U AMIC #### [facility] [address] [address] [address] Nancy Montalvo EGFR-NON AF ITALIAN 17 mL/min/1.73m2 Critically low >=60 [facility] Comment on above: Performed By: #### U AMIC #### [facility] [address] [address] [address] Nancy Montalvo Globulin (S) [Mass/Vol] 3.2 g/dL Normal [facility] Comment on above: Performed By: #### U AMIC #### [facility] [address] [address] [address] Nancy Montalvo Glucose [Mass/Vol] 84 mg/dL Normal 74-106 [facility] Comment on above: Performed By: #### U AMIC #### [facility] [address] [address] [address] Nancy Montalvo Potassium [Moles/Vol] 4.8 mmol/L Normal 3.5-5.1 [facility] Comment on above: Performed By: #### U AMIC #### [facility] [address] [address] [address] Nancy Montalvo Protein [Mass/Vol] 5.7 g/dL Critically low 6.4-8.2 Th e [facility] Comment on above: Performed By: #### U AMIC #### [facility] [facility] [address] [place] [address] Dr. Nancy Montalvo Sodium [Moles/Vol] 136 mmol/L Normal 136-145 [facility] Comment on above: Performed By: #### U AMIC #### [facility] [address] [address] [address] Nancy Montalvo Urea nitrogen [Mass/Vol] 66.0 mg/dL Critically high 7.0-18.0 [facility] Comment on above: Performed By: #### U AMIC #### [facility] [address] [address] [address] Nancy Montalvo Urea nitrogen/Creatinine [Mass ratio] 24.8 mg/mg Normal [facility] Comment on above: Performed By: #### U AMIC #### [facility] [address] [address] [address] Nancy Montalvo PROTIMEon 09-15-2021 INR Coag (PPP) [Relative time] 2.47 {INR} Normal [facility] Comment on above: Performed By: #### P OCGLUC #### [facility] [address] [place] [address] Dr. Nancy Montalvo INR GUIDELINES SEE BELOW Normal [facility] Comment on above: Result Comment: ADITYA RED INR: 2.0 - 3.0 CONDITIONS NOT LISTED BELOW 2.5 - 3.5 FOR PROSTHETIC HEART VALVE REPLACEMENT 2.5 - 3.5 RECURRENT THROMBOSIS Performed By: #### P OCGLUC #### [facility] [address] [place] [address] Dr. Nancy Montalvo PT Coag (PPP) [Time] 25.1 s Critically high 9.0-11.6 [facility] Comment on above: Performed By: #### P OCGLUC #### [facility] [address] [place] [address] Dr. Nancy Montalvo BNPon 09-14-2021 Natriuretic peptide B (Bld) [Mass/Vol] 1255.0 pg/mL Normal <=1,800.0 [facility] Comment on above: Performed By: #### P OCGLUC #### [facility] [address] [place] [address] Dr. Nancy Montalvo CBC W MANUAL DIFFon 09-15-19 22 ATYPICAL LYMPH # Normal [facility] Comment on above: Performed By: #### P OCGLUC #### [facility] [address] [place] [address] Dr. Nancy Montalvo ATYPICAL LYMPH % Normal [facility] Comment on above: Performed By: #### P OCGLUC #### [facility] [address] [place] [address] Dr. Nancy Montalvo BAND # Normal 0.0-0.3 [facility] Comment on above: Performed By: #### P OCGLUC #### [facility] [address] [place] [address] Dr. Nancy Montalvo BAND % Normal 0-5 [facility] Comment on above: Performed By: #### P OCGLUC #### [facility] [address] [address] [address] Nancy Montalvo BASOM # 0.11 103/ul Critically high 0.00-0.10 [facility] Comment on above: Performed By: #### P OCGLUC #### [facility] [address] [address] [address] Nancy Montalvo BASOM % 1.0 % Normal 0.2-2.0 [facility] Comment on above: Performed By: #### P OCGLUC #### [facility] [address] [address] [address] Nancy Montalvo BLAST # Normal [facility] Comment on above: Performed By: #### P OCGLUC #### [facility] [address] [address] [address] Nancy Montalvo BLAST % Normal [facility] Comment on above: Performed By: #### P OCGLUC #### [facility] [address] [address] [address] Nancy Montalvo CORRECTED WBC Normal 4.0-11.0 [facility] Comment on above: Performed By: #### P OCGLUC #### [facility] [address] [address] [address] Nancy Montalvo EOS # 0.45 103/ul Normal 0.00-0.70 [facility] Comment on above: Performed By: #### P OCGLUC #### [facility] [address] [address] [address] Nancy Montalvo EOS% 4.0 % Normal 0.9-7.0 [facility] Comment on above: Performed By: #### P OCGLUC #### [facility] [address] [place] [address] Dr. Nancy Montalvo HCT 32.7 % Critically low 36.0-48.0 [facility] Comment on above: Performed By: #### P OCGLUC #### [facility] [address] [address] [address] Nancy Montalvo HGB 10.2 g/dl Critically low 12.0-16.0 [facility] Comment on above: Performed By: #### P OCGLUC #### [facility] [address] [address] [address] Nancy Montalvo LYMPHM # 5.38 103/ul Critically high 1.20-3.80 [facility] Comment on above: Performed By: #### P OCGLUC #### [facility] [address] [address] [address] Nancy Montalvo LYMPHM% 48.0 % Normal 20.5-60.0 [facility] Comment on above: Performed By: #### P OCGLUC #### [facility] [address] [address] [address] Nancy Montalvo MCH 32.4 pg Normal 26.7-34.0 [facility] Comment on above: Performed By: #### P OCGLUC #### [facility] [address] [address] [address] Nancy Montalvo MCHC 31.2 g/dl Normal 29.9-35.2 [facility] Comment on above: Performed By: #### P OCGLUC #### [facility] [address] [address] [address] Nancy Montalvo MCV 103.8 fL Critically high 81.0-99.0 [facility] Comment on above: Performed By: #### P OCGLUC #### [facility] [address] [address] [address] Nancy Montalvo METAMYELOCYTE # Normal [facility] Comment on above: Performed By: #### P OCGLUC #### [facility] [address] [address] [address] Nancy Montalvo METAMYELOCYTE % Normal [facility] Comment on above: Performed By: #### P OCGLUC #### [facility] [address] [address] [address] Nancy Montalvo MONOM# 0.56 103/ul Normal 0.30-0.80 [facility] Comment on above: Performed By: #### P OCGLUC #### [facility] [address] [address] [address] Nancy Montalvo MONOM% 5.0 % Normal 1.7-12.0 [facility] Comment on above: Performed By: #### P OCGLUC #### [facility] [address] [address] [address] Nancy Montalvo MPV 12.6 fL Normal 9.5-13.5 [facility] Comment on above: Performed By: #### P OCGLUC #### [facility] [address] [address] [address] Nancy Montalvo MYELOCYTE # Normal [facility] Comment on above: Performed By: #### P OCGLUC #### [facility] [address] [address] [address] Nancy Montalvo MYELOCYTE % Normal [facility] Comment on above: Performed By: #### P OCGLUC #### [facility] [address] [place] [address] Dr. Nancy Montalvo NRBC Normal [facility] Comment on above: Performed By: #### P OCGLUC #### [facility] [address] [address] [address] Nancy Montalvo PLT 145 103/ul Critically low 150-450 [facility] Comment on above: Performed By: #### P OCGLUC #### [facility] [address] [place] [address] Dr. Nancy Montalvo RBC 3.15 106/ul Critically low 4.20-5.40 [facility] Comment on above: Performed By: #### P OCGLUC #### [facility] [address] [place] [address] Dr. Nancy Montalvo RDW 13.2 % Normal 11.0-15.0 [facility] Comment on above: Performed By: #### P OCGLUC #### [facility] [address] [address] [address] Nancy Montalvo SEG # 4.70 103/ul Normal 1.40-6.50 [facility] Comment on above: Performed By: #### P OCGLUC #### [facility] [address] [place] [address] Dr. Nancy Montalvo SEG % 42.0 % Critically low 43.0-75.0 [facility] Comment on above: Performed By: #### P OCGLUC #### [facility] [address] [address] [address] Nancy Montalvo WBC 11.2 103/ul Critically high 4.0-11.0 [facility] Comment on above: Performed By: #### P OCGLUC #### [facility] [address] [address] [address] Nancy Montalvo POINT OF CARE GLUCOSEon 08-18 Glucose [Mass/Vol] 101 mg/dL Normal 74-106 [facility] Comment on above: Performed By: #### P OCGLUC #### [facility] [address] [address] [address] Nancy Montalvo Glucose [Mass/Vol] 145 mg/dL Critically high 74-106 [facility] Comment on above: Performed By: #### C MP #### [facility] [address] [address] [address] Nancy Montalvo Glucose [Mass/Vol] 87 mg/dL Normal 74-106 [facility] Comment on above: Performed By: #### U AMIC #### [facility] [address] [address] [address] Nancy Montalvo PROF 14(COMP METB)on 022 Albumin [Mass/Vol] 2.8 g/dL Critically low 3.4-5.0 [facility] Comment on above: Performed By: #### P OCGLUC #### [facility] [address] [address] [address] Nancy Montalvo Albumin/Globulin [Mass ratio] 0.8 {ratio} Normal [facility] Comment on above: Performed By: #### P OCGLUC #### [facility] [address] [address] [address] Nancy Montalvo ALP [Catalytic activity/Vol] 59 U/L Normal 46-116 [facility] Comment on above: Performed By: #### P OCGLUC #### [facility] [address] [address] [address] Nancy Montalvo ALT [Catalytic activity/Vol] 43 U/L Normal 14-59 [facility] Comment on above: Performed By: #### P OCGLUC #### [facility] [address] [address] [address] Nancy Montalvo Anion gap [Moles/Vol] 12.9 mmol/L Normal [facility] Comment on above: Performed By: #### P OCGLUC #### [facility] [address] [address] [address] Nancy Montalvo AST [Catalytic activity/Vol] 31 U/L Normal 15-37 [facility] Comment on above: Performed By: #### P OCGLUC #### [facility] [address] [address] [address] Nancy Montalvo Bilirubin [Mass/Vol] 0.3 mg/dL Normal 0.2-1.0 [facility] Comment on above: Performed By: #### P OCGLUC #### [facility] [address] [address] [address] Nancy Montalvo Calcium [Mass/Vol] 8.8 mg/dL Normal 8.5-10.1 [facility] Comment on above: Performed By: #### P OCGLUC #### [facility] [address] [address] [address] Nancy Montalvo Chloride [Moles/Vol] 104 mmol/L Normal 98-107 [facility] Comment on above: Performed By: #### P OCGLUC #### [facility] [address] [address] [address] Nancy Montalvo CO2 [Moles/Vol] 23.7 mmol/L Normal 21.0-32.0 [facility] Comment on above: Performed By: #### P OCGLUC #### [facility] [address] [address] [address] Nancy Montalvo Creatinine [Mass/Vol] 2.43 mg/dL Critically high 0.55-1.02 [facility] Comment on above: Performed By: #### P OCGLUC #### [facility] [address] [address] [address] Nancy Montalvo EGFR-AF ITALIAN 23 mL/min/1.73m2 Critically low >=60 [facility] Comment on above: Performed By: #### P OCGLUC #### [facility] [address] [address] [address] Nancy Montalvo EGFR-NON AF ITALIAN 19 mL/min/1.73m2 Critically low >=60 [facility] Comment on above: Performed By: #### P OCGLUC #### [facility] [address] [address] [address] Nancy Montalvo Globulin (S) [Mass/Vol] 3.3 g/dL Normal [facility] Comment on above: Performed By: #### P OCGLUC #### [facility] [address] [address] [address] Nancy Montalvo Glucose [Mass/Vol] 80 mg/dL Normal 74-106 [facility] Comment on above: Performed By: #### P OCGLUC #### [facility] [address] [address] [address] Nancy Montalvo Potassium [Moles/Vol] 4.6 mmol/L Normal 3.5-5.1 [facility] Comment on above: Performed By: #### P OCGLUC #### [facility] [address] [address] [address] Nancy Montalvo Protein [Mass/Vol] 6.1 g/dL Critically low 6.4-8.2 [facility] e [facility] Comment on above: Performed By: #### P OCGLUC #### [facility] [address] [address] [address] Nancy Montalvo Sodium [Moles/Vol] 136 mmol/L Normal 136-145 [facility] Comment on above: Performed By: #### P OCGLUC #### [facility] [address] [address] [address] Nancy Montalvo Urea nitrogen [Mass/Vol] 59.0 mg/dL Critically high 7.0-18.0 [facility] Comment on above: Performed By: #### P OCGLUC #### [facility] [address] [address] [address] Nancy Montalvo Urea nitrogen/Creatinine [Mass ratio] 24.3 mg/mg Normal [facility] Comment on above: Performed By: #### P OCGLUC #### [facility] [address] [place] [address] Dr. Nancy Montalvo PROTIMEon 09-14-2021 INR Coag (PPP) [Relative time] 1.79 {INR} Normal [facility] Comment on above: Performed By: #### C MP #### [facility] [address] [place] [address] Dr. Nancy Montalvo INR GUIDELINES SEE BELOW Normal [facility] Comment on above: Result Comment: ADITYA RED INR: 2.0 - 3.0 CONDITIONS NOT LISTED BELOW 2.5 - 3.5 FOR PROSTHETIC HEART VALVE REPLACEMENT 2.5 - 3.5 RECURRENT THROMBOSIS Performed By: #### C MP #### [facility] [address] [place] [address] Dr. Nancy Montalvo PT Coag (PPP) [Time] 18.6 s Critically high 9.0-11.6 [facility] Comment on above: Performed By: #### C MP #### [facility] [address] [place] [address] Dr. Nancy Montalvo UA RANDOM W/MICROSCOPICon BACTERIA TRACE Abnormal NONE SEEN The [facility] Comment on above: Performed By: #### A 1C #### [facility] [address] [place] [address] Dr. Nancy Montalvo Bilirubin Ql (U) Negative Normal NEGATIVE [facility] Comment on above: Performed By: #### A 1C #### [facility] [address] [place] [address] Dr. Nancy Montalvo CAST NONE SEEN Normal NONE SEEN [facility] Comment on above: Performed By: #### A 1C #### [facility] [address] [place] [address] Dr. Nancy Montalvo Clarity (U) CLEAR Normal CLEAR [facility] Comment on above: Performed By: #### A 1C #### [facility] [address] [place] [address] Dr. Nancy Montalvo Color (U) LT. YELLOW Normal YELLOW [facility] Comment on above: Performed By: #### A 1C #### [facility] [address] [place] [address] Dr. Nancy Montalvo Crystals LM Nom (Urine sed) NONE SEEN Normal NONE SEEN [facility] Comment on above: Performed By: #### A 1C #### [facility] [address] [place] [address] Dr. Nancy Montalvo Epithelial cells LM Ql (Urine sed) FEW Abnormal NONE SEEN /RARE [facility] Comment on above: Performed By: #### A 1C #### [facility] [address] [place] [address] Dr. Nancy Montalvo Glucose Ql (U) Negative Normal NEGATIVE [facility] Comment on above: Performed By: #### A 1C #### [facility] [address] [place] [address] Dr. Nancy Montalvo Hemoglobin Ql (U) Negative Normal NEGATIVE [facility] Comment on above: Performed By: #### A 1C #### [facility] [address] [place] [address] Dr. Nancy Montalvo Ketones Ql (U) Negative Normal NEGATIVE [facility] Comment on above: Performed By: #### A 1C #### [facility] [address] [place] [address] Dr. Nancy Montalvo LEUKOCYTES MODERATE Abnormal NEGATIVE [facility] Comment on above: Performed By: #### A 1C #### [facility] [address] [place] [address] Dr. Nancy Montalvo MUCOUS SMALL Abnormal NONE SEEN The [facility] Comment on above: Performed By: #### A 1C #### [facility] [address] [place] [address] Dr. Nancy Montalvo Nitrite Ql (U) Negative Normal NEGATIVE [facility] Comment on above: Performed By: #### A 1C #### [facility] [address] [place] [address] Dr. Nancy Montalvo pH (U) 5.0 [pH] Normal 5-9 [facility] Comment on above: Performed By: #### A 1C #### [facility] [address] [place] [address] Dr. Nancy Montalvo RBC NONE SEEN Abnormal 0-2 [facility] Comment on above: Performed By: #### A 1C #### [facility] [address] [place] [address] Dr. Nancy Montalvo SPEC GRAVITY 1.025 Normal 1.005-<=1.0 25 [facility] Comment on above: Performed By: #### A 1C #### [facility] [address] [place] [address] Dr. Nancy Montalvo UA PROTEIN Negative Normal NEGATIVE/ TRACE The [facility] Comment on above: Performed By: #### A 1C #### [facility] [address] [place] [address] Dr. Nancy Montalvo Urobilinogen Qn (U) 0.2 {Grant'U}/dL Normal 0.2 - 1. 0 [facility] Comment on above: Performed By: #### A 1C #### [facility] [address] [place] [address] Dr. Nancy Montalvo WBC 5-10 Abnormal NONE SEEN The [facility] Comment on above: Performed By: #### A 1C #### [facility] [address] [place] [address] Dr. Nancy Montalvo CBC AUTO DIFFon 09-13-2021 BASO # 0.1 103/ul Normal 0.0-0.1 [facility] Comment on above: Performed By: #### C VDTBH #### [facility] [address] [place] [address] Dr. Nancy Montalvo Basophils/100 WBC (Bld) 0.5 % Normal 0.2-2.0 [facility] Comment on above: Performed By: #### C VDTBH #### [facility] [address] [place] [address] Dr. Nancy Montalvo EO # 0.1 103/ul Normal 0.0-0.7 [facility] Comment on above: Performed By: #### C VDTBH #### [facility] [address] [place] [address] Dr. Nancy Montalvo Eosinophils/100 WBC (Bld) 0.6 % Critically low 0.9-7.0 [facility] Comment on above: Performed By: #### C VDTBH #### [facility] [address] [place] [address] Dr. Nancy Montalvo Erythrocyte distribution width (RBC) [Ratio] 12.9 % Normal 11.0-15.0 [facility] Comment on above: Performed By: #### C VDTBH #### [facility] [address] [place] [address] Dr. Nancy Montalvo Hematocrit (Bld) [Volume fraction] 33.3 % Critically low 36.0-48.0 [facility] Comment on above: Performed By: #### C VDTBH #### [facility] [address] [place] [address] Dr. Nancy Montalvo Hemoglobin (Bld) [Mass/Vol] 10.4 g/dL Critically low 12.0-16.0 [facility] Comment on above: Performed By: #### C VDTBH #### [facility] [address] [place] [address] Dr. Nancy Montalvo IG # 0.03 10e3/ul Normal 0.00-0.03 [facility] Comment on above: Performed By: #### C VDTBH #### [facility] [address] [place] [address] Dr. Nancy Montalvo IG % 0.3 % Normal 0.0-0.5 [facility] Comment on above: Performed By: #### C VDTBH #### [facility] [address] [place] [address] Dr. Nancy Montalvo LYMPH # 1.9 103/ul Normal 1.2-3.8 [facility] Comment on above: Performed By: #### C VDTBH #### [facility] [address] [place] [address] Dr. Nancy Montalvo Lymphocytes/100 WBC (Bld) 19.9 % Critically low 20.5-60.0 [facility] Comment on above: Performed By: #### C VDTBH #### [facility] [address] [place] [address] Dr. Nancy Montalvo MANUAL DIFF REQ NO Normal [facility] Comment on above: Performed By: #### C VDTBH #### [facility] [address] [place] [address] Dr. Nancy Montalvo MCH (RBC) [Entitic mass] 31.9 pg Normal 26.7-34.0 [facility] Comment on above: Performed By: #### C VDTBH #### [facility] [address] [place] [address] Dr. Nancy Montalvo MCHC (RBC) [Mass/Vol] 31.2 g/dL Normal 29.9-35.2 [facility] Comment on above: Performed By: #### C VDTBH #### [facility] [address] [place] [address] Dr. Nancy Montalvo MCV (RBC) [Entitic vol] 102.1 fL Critically high 81.0-99.0 [facility] Comment on above: Performed By: #### C VDTBH #### [facility] [address] [place] [address] Dr. Nancy Montalvo MONO # 0.8 103/ul Normal 0.3-0.8 [facility] Comment on above: Performed By: #### C VDTBH #### [facility] [address] [place] [address] Dr. Nancy Montalvo Monocytes/100 WBC (Bld) 8.1 % Normal 1.7-12.0 [facility] Comment on above: Performed By: #### C VDTBH #### [facility] [address] [place] [address] Dr. Nancy Montalvo NEUT # 6.6 103/ul Critically high 1.4-6.5 [facility] Comment on above: Performed By: #### C VDTBH #### [facility] [address] [place] [address] Dr. Nancy Montalvo Neutrophils/100 WBC (Bld) 70.6 % Normal 43.0-75.0 [facility] Comment on above: Performed By: #### C VDTBH #### [facility] [address] [place] [address] Dr. Nancy Montalvo Platelet mean volume (Bld) [Entitic vol] 12.3 fL Normal 9.5-13.5 [facility] Comment on above: Performed By: #### C VDTBH #### [facility] [address] [address] [address] Nancy Montalvo PLT 160 103/ul Normal 150-450 [facility] Comment on above: Performed By: #### C VDTBH #### [facility] [address] [address] [address] Nancy Montalvo RBC 3.26 106/ul Critically low 4.20-5.40 [facility] Comment on above: Performed By: #### C VDTBH #### [facility] [address] [address] [address] Nancy Montalvo WBC 9.4 103/ul Normal 4.0-11.0 [facility] Comment on above: Performed By: #### C VDTBH #### [facility] [address] [place] [address] PELVIS WO CONon [...] JOSÉ CHENG Date: 2021-09-13 10:47 Normal [facility] Covid-19 PCR (CVDTB)on 08-18 SARS-CoV-2 (COVID-19) RNA MARLENE+probe Ql (Unsp spec) Not detected Normal NOT DETECTED [facility] Comment on above: Result Comment: When diagnostic [...] for this test is supported by the [place]um of Health and Human Service's declaration that [...] used). Performed By: #### P OCGLUC #### [facility] [address] [place] [address] Dr. Nancy Montalvo POINT OF CARE GLUCOSEon 08-18 Glucose [Mass/Vol] 75 mg/dL Normal 74-106 [facility] Comment on above: Performed By: #### P OCGLUC #### [facility] [address] [place] [address] Dr. Nancy Montalvo Glucose [Mass/Vol] 82 mg/dL Normal 74-106 [facility] Comment on above: Performed By: #### P OCGLUC #### [facility] [address] [place] [address] Dr. Nancy Montalvo PROF CHEM 8 (BAS METB)on Anion gap [Moles/Vol] 16.7 mmol/L Normal [facility] Comment on above: Performed By: #### B LDCX1 #### [facility] [address] [address] [address] Nancy Montalvo Calcium [Mass/Vol] 8.8 mg/dL Normal 8.5-10.1 [facility] Comment on above: Performed By: #### B LDCX1 #### [facility] [address] [address] [address] Nancy Montalvo Chloride [Moles/Vol] 107 mmol/L Normal 98-107 [facility] Comment on above: Performed By: #### B LDCX1 #### [facility] [address] [address] [address] Nancy Montalvo CO2 [Moles/Vol] 23.0 mmol/L Normal 21.0-32.0 [facility] Comment on above: Performed By: #### B LDCX1 #### [facility] [address] [place] [address] Dr. Nancy Montalvo Creatinine [Mass/Vol] 2.51 mg/dL Critically high 0.55-1.02 [facility] Comment on above: Performed By: #### B LDCX1 #### [facility] [address] [address] [address] Nancy Montalvo EGFR-AF ITALIAN 22 mL/min/1.73m2 Critically low >=60 [facility] Comment on above: Performed By: #### B LDCX1 #### [facility] [address] [place] [address] Dr. Nancy Montalvo EGFR-NON AF ITALIAN 18 mL/min/1.73m2 Critically low >=60 [facility] Comment on above: Performed By: #### B LDCX1 #### [facility] [address] [address] [address] Nancy Montalvo Glucose [Mass/Vol] 91 mg/dL Normal 74-106 [facility] Comment on above: Performed By: #### B LDCX1 #### [facility] [address] [address] [address] Nancy Montalvo Potassium [Moles/Vol] 4.7 mmol/L Normal 3.5-5.1 [facility] Comment on above: Performed By: #### B LDCX1 #### [facility] [address] [address] [address] Nancy Montalvo Sodium [Moles/Vol] 142 mmol/L Normal 136-145 [facility] Comment on above: Performed By: #### B LDCX1 #### [facility] [address] [place] [address] Dr. Nancy Montalvo Urea nitrogen [Mass/Vol] 60.0 mg/dL Critically high 7.0-18.0 [facility] Comment on above: Performed By: #### B LDCX1 #### [facility] [address] [place] [address] Dr. Nancy Montalvo Urea nitrogen/Creatinine [Mass ratio] 23.9 mg/mg Normal [facility] Comment on above: Performed By: #### B LDCX1 #### [facility] [address] [place] [address] Dr. Nancy Montalvo PROTIMEon 09-13-2021 INR Coag (PPP) [Relative time] 1.53 {INR} Normal [facility] Comment on above: Performed By: #### P OCGLUC #### [facility] [address] [place] [address] Dr. Nancy Montalvo INR GUIDELINES SEE BELOW Normal [facility] Comment on above: Result Comment: ADITYA RED INR: 2.0 - 3.0 CONDITIONS NOT LISTED BELOW 2.5 - 3.5 FOR PROSTHETIC HEART VALVE REPLACEMENT 2.5 - 3.5 RECURRENT THROMBOSIS Performed By: #### P OCGLUC #### [facility] [address] [place] [address] Dr. Nancy Montalvo PT Coag (PPP) [Time] 16.1 s Critically high 9.0-11.6 [facility] Comment on above: Performed By: #### P OCGLUC #### [facility] [address] [place] [address] Dr. Nancy Montalvo T4on 09-13-2021 T4 [Mass/Vol] 7.30 ug/dL Normal 4.80-13.90 [facility] Comment on above: Performed By: #### U AMIC #### [facility] [address] [place], [place] [address] Dr. Nancy Montalvo TSHon 09-13-2021 TSH 1.045 uIU/mL Normal 0.358-3.740 [facility] Comment on above: Performed By: #### U AMI #### [facility] [address] [place], [place] [address] Dr. Nancy Montalvo Cardiovascular Lab Reporton 08-30-2021 Cardiovascular Lab Report [facility] Patient Name: [facility] Gemma Blackmon MR #: [id number] Department of Physician: Rob Morales MD Medicine Service Date: 08/30/2021 Division of Birthdate: 1935 Cardiology Room #: Adult Cardiovascular Services [address] [address] Cardiovascular Laboratory Report PACEMAKER GENERATOR CHANGE POCKET REVISION PROCEDURE NOTE DATE OF PROCEDURE: 08/30/2021 PERFORMING PHYSICIAN: Dr. Rob Morales CONSENT: Patient LOCATION: EP Lab PROCEDURE PERFORMED: 1. Implant of new pacemaker generator ([employer]). 2. Explant of pacemaker generator ([employer]). 3. Pocket Revision. INDICATIONS: 1. S/p [...] leads were then attached to a new [employer] generator and the leads tug tested. Pocket [...] the device as noted below. Device info: [employer] Accolade MRI DR IS-1 Model# [id number] Serial# [id number] RA lead: Implanted on 08/19/2012 Guidant Dextrus IS-1 4136-53 cm, Serial #[id number] Sensin.3mV Threshold: 0.7V@0.4ms Impedance: 564 Ohms RV lead: Implanted on 08/19/2012 Guidant Dextrus IS-1 4137-60cm Serial #[id number] Sensin.8mV Threshold: 1.8V@0.4ms Impedance: 468 Ohms POST [...] Morales MD Date Trans: 08/30/2021 01:25 P/catalina [id number] cc: Chase Méndez M.D. [address] [place] A [facility] [address] Normal [facility] Covid-19 PCR (CVDTBH)on 08-17 SARS-CoV-2 (COVID-19) RNA MARLENE+probe Ql (Unsp spec) Not detected Normal NOT DETECTED [facility] Comment on above: Result Comment: This test is not yet approved or cleared by the [place] FDA. When there are no FDA-approved or cleared tests available, and other criteria are met, FDA can make tests available under an emergency access mechanism called an Emergency Use Authorization (EUA). The EUA for this test is supported by the New Order Clerk of Health and Human Service's (HHS's) declaration [...] SARS-CoV-2. Performed By: #### C MP #### [facility] [address] [place] [address] Dr. Nancy Montalvo Vital Signs Date Time Vital Sign Value Performing Clinician Lisset craven 11-14-2022 13:26-0400 Blood Pressure Location Tom JAY [facility] 11-14-2022 13:26-0400 Diastolic blood pressure 60 mm[Hg] Tom THOMPSON [facility] 11-14-2022 13:26-0400 Heart rate 70 /min Tom THOMPSON [facility] 11-14-2022 13:26-0400 Respiratory rate 16 /min Tom THOMPSON [facility] 11-14-2022 13:26-0400 Systolic blood pressure 116 mm[Hg] Tom THOMPSON [facility] [place] Encounters Encounter Date Encounter Type Care Provider Facility Start: 10-10-2023 End: 10-10-2023 ambulatory LV BLANKENSHIP [facility] Start: 09-20-2023 End: 09-20-2023 Evaluation and management of inpatient MARTHA MCLEAN [facility] Start: 09-19-2023 End: 09-20-2023 Evaluation and management of inpatient [facility] Start: 09-19-2023 End: 09-19-2023 Evaluation and management of inpatient [facility] Start: 09-11-2023 End: 09-15-2023 Evaluation and management of inpatient [facility] Start: 09-08-2023 ambulatory [facility] Start: 09-06-2023 End: 09-06-2023 ambulatory [facility] Start: 09-05-2023 End: 09-05-2023 ambulatory JOHN PERLA [facility] Start: 08-15-2023 End: 08-15-2023 ambulatory GERARDO SONNY [facility] Start: 07-23-2023 End: 07-30-2023 Evaluation and management of inpatient SANJAY Vergara [facility] Start: 07-23-2023 End: 07-30-2023 Evaluation and management of inpatient SANJAY BERNARD [facility] Start: 07-23-2023 Emergency department patient visit JUAN JOSÉ Warner~[id number] [facility] Start: 07-18-2023 End: 07-21-2023 ambulatory [facility] Start: 07-03-2023 End: 07-03-2023 ambulatory [facility] Start: 06-27-2023 End: 06-28-2023 ambulatory [facility] Start: 06-20-2023 End: 06-21-2023 ambulatory [facility] Start: 06-13-2023 End: 06-14-2023 ambulatory [facility] Start: 05-29-2023 End: 05-30-2023 [facility] Start: 05-29-2023 End: 05-29-2023 Subsequent hospital visit by physician Ayaka Downing [facility] Medication Management Comment on above: Atrial fibrillation, unspecified type (HCC) (Primary Dx) Start: 05-17-2023 End: 05-18-2023 ambulatory [facility] Start: 04-25-2023 End: 04-26-2023 ambulatory [facility] Start: 04-25-2023 End: 04-25-2023 Subsequent hospital visit by physician Nallely Degroot [facility] Medication Management Comment on above: Atrial fibrillation, unspecified type (HCC) (Primary Dx) Start: 04-13-2023 End: 04-14-2023 ambulatory [facility] Start: 04-13-2023 End: 04-13-2023 Subsequent hospital visit by physician Juan José Velazquez [facility] Work Phone: [facility] Comment on above: Atrial fibrillation, unspecified type (HCC) (Primary Dx) Start: 04-05-2023 End: 04-06-2023 ambulatory [facility] Start: 03-08-2023 End: 03-08-2023 ambulatory ABDI ROYAL Not Available Start: 02-26-2023 End: 02-26-2023 ambulatory Chase Méndez Facility:[facility] Start: 02-26-2023 End: 02-26-2023 ambulatory MD Chase Méndez Work Phone: [facility] Work Phone: Start: 02-26-2023 End: 02-26-2023 Patient encounter procedure MD Chase Méndez Work Phone: [facility] Work Phone: Start: 02-15-2023 End: 02-15-2023 ambulatory Chase Méndez Facility:[facility] [place] [facility] Start: 02-15-2023 End: 02-15-2023 ambulatory MD Chase Méndez Work Phone: [facility] Work Phone: Start: 02-15-2023 End: 02-15-2023 Patient encounter procedure MD Chase Méndez Work Phone: [facility] Work Phone: Start: 12-05-2022 End: 12-06-2022 ambulatory Tom R NILL Facility:[facility] [place] Start: 11-22-2022 End: 11-23-2022 ambulatory Tom R NILL [facility] Start: 11-22-2022 End: 11-22-2022 Patient encounter procedure Tom R NILL [facility] [place] Start: 11-14-2022 End: 11-15-2022 ambulatory Tom R NILL Facility:[facility] [place] Start: 11-14-2022 End: 11-14-2022 Patient encounter procedure Tom R NILL [facility] [place] Start: 10-31-2022 End: 10-31-2022 ambulatory [facility] Start: 10-17-2022 ambulatory Tom NILL Facility:[facility] Start: 08-07-2022 ambulatory AURELIO NAVA . Facility: [facility] Start: 08-02-2022 End: 08-02-[address] CHASE MÉNDEZ . Facility:[facility] Start: 07-26-2022 End: 07-26-[address] CHASE MÉNDEZ . Facility:[facility] Start: 07-24-2022 End: 07-24-[address] CHASE MÉNDEZ . Facility:[facility] Start: 07-21-2022 End: 07-21-[address] CHASE MÉNDEZ . Facility:[facility] Start: 07-21-2022 End: 07-21-[address] CHASE MÉNDEZ . Facility:[facility] Start: 07-19-2022 End: 07-19-[address] CHASE MÉNDEZ . Facility:[facility] Start: 07-17-2022 End: 08-16-2022 ambulatory AYOUB H FAWWAD Facility:[facility] Start: 07-11-2022 End: 07-14-2022 Evaluation and management of inpatient DR CHASE MÉNDEZ . Facility:[facility] Start: 07-01-2022 End: 07-02-[address] CHASE MÉNDEZ . Facility:[facility] Start: 06-19-2022 End: 07-14-2022 ambulatory AYOUB H FAWWAD Facility:[facility] Start: 05-17-2022 End: 06-16-2022 ambulatory AYOUB H FAWWAD Facility:[facility] Start: 04-25-2022 End: 04-26-[address] CHASE MÉNDEZ . Facility:[facility] Start: 04-19-2022 End: 05-17-2022 ambulatory AYOUB H FAWWAD Facility:[facility] Start: 03-29-2022 End: 03-30-2022 ambulatory BERNICE DELEON Facility:[facility] Start: 03-20-2022 End: 04-19-2022 ambulatory AYOUB H FAWWAD Facility:[facility] Start: 02-16-2022 End: 03-19-2022 ambulatory AYOUB H FAWWAD Facility:[facility] Start: 01-17-2022 End: 02-15-2022 ambulatory AYOUB H FAWWAD Facility:[facility] Start: 12-18-2021 End: 01-16-2022 ambulatory AYOUB H FAWWAD Facility:[facility] Start: 12-02-2021 End: 12-17-2021 ambulatory AYOUB H FAWWAD Facility:[facility] Start: 10-24-2021 End: 10-25-[address] CHASE MÉNDEZ . Facility:[facility] Start: 09-30-2021 ambulatory RAMIRO RODRIGUEZ Facility :[facility] Start: 09-13-2021 End: 09-16-[address] CHASE MÉNDEZ . Facility:[facility] Start: 08-30-2021 End: 08-31-2021 ambulatory ROB MORALES Facility:[facility] Start: 08-29-2021 Encounter for preprocedural laboratory examination ROB MORALES [facility] Start: 08-26-2021 End: 08-27-2021 ambulatory ROB MORALES Facility:[facility] Start: 08-26-2021 End: 08-27-2021 Encounter for preprocedural laboratory examination ROB MORALES Facility:[facility] Start: 11-28-2018 End: 11-28-2018 Patient encounter procedure UNKNOWN PROVIDER Facility:[facility] Start: 08-01-2018 End: 08-01-2018 Patient encounter procedure UNKNOWN PROVIDER Facility:[facility] Start: 02-21-2018 End: 02-21-2018 Patient encounter procedure UNKNOWN PROVIDER Facility:[facility] Procedures Date Procedure Procedure Detail Performing Clinician Start: 05-29-2023 Prothrombin time Histor ical Provider Start: 04-25-2023 Prothrombin time Histor ical Provider Start: 04-13-2023 End: 04-13-2023 Prothrombin time Historical Provider MD Start: 10-31-2022 Follow-up visit Follow-up ROB MASON Abdominal hysterectomy Joe nargis NILL Appendectomy Tom NILL Cardioversion Tom NILL Excision of melanoma Tom NILL Implantable cardiac pacemaker (physical object) Tom NILL 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 using fluoroscopic guidance Tom NILL Stapling of stomach Tom A [place] Plan of Treatment Date Care Activity Detail Author Start: 06-13-2023 End: 06-13-2023 Patient encounter procedure 06/13/2023 3:30 PM EDT Appointment [facility] [address] [place] [address] (RIGOBERTO Méndez 03/22/2024) [facility] Comment on above: (RIGOBERTO Méndez 03/22/2024) Start: 05-09-2023 End: 05-09-2023 Patient encounter procedure 05/09/2023 3:30 PM EST Appointment [facility] [address] [place] [address] (CPA Hoy 03/22/2024) [facility] Comment on above: (CPA Hoy 03/22/2024) Start: 04-25-2023 End: 04-25-2023 Patient encounter procedure 04/25/2023 3:30 PM EST Appointment [facility] [address] [place] [id number] new (CPA Hoy 03/22/2024) [facility] Comment on above: new (CPA Hoy ) Start: 03-19-2023 Annual Wellness Visi t (Medicare Advantage) Annual Wellness Visit (Medicare Advantage) [facility] Start: 10-17-2022 Influenza vaccination Flu vaccine (# 1) [facility] Start: 1984 Shingles vaccine (1 of 2) Shingles vaccine (1 of 2) [facility] Start: 1953 DTaP/Tdap/Td vaccine (1 - Tdap) DTaP/Tdap/Td vaccine (1 - Tdap) [facility] Start: 1946 Depression Screen Depression Screen [facility] Start: 1944 Lipid panel Lipids [facility] Immunizations Immunization Date Immunization Notes Care Provider Fa [facility] 07-25-2022 SARS-CoV-2 (COVID-19 ) mRNAMUL.ORD![id number] Tom THOMPSON [facility] 07-10-2022 SARS-CoV-2 (COVID-19 ) mRNA-1273 vaccine Tom THOMPSON [facility] 02-27-2022 SARS-CoV-2 (COVID-19 ) mRNAMUL.ORD![id number] Tom THOMPSON [facility] 09-29-2021 SARS-CoV-2 mRNA (zylnkqywmhd-afuh-caozj se) vaccine Tom THOMPSON [facility] 05-07-2020 SARS-CoV-2 (COVID-19 ) mRNA BNT-162b2 diana THOMPSON [facility] [place] Comment on above: Result Comment: 2022: [id number] 04-16-2020 SARS-CoV-2 (COVID-19 ) mRNA BNT-162b2 diana THOMPSON [facility] [place] Comment on above: Result Comment: 2022: [id number] Payers Date Payer Category Payer Medicare [id number] 2023 Self-pay 1960 Medicare [id number] 1960 Self-pay [id number] 1934 Unknown [id number] 2.16. 840.1.388946.3.579.2.732 1934 Unknown [id number] 2.16. 840.1.860093.3.579.2.732 1934 Unknown [id number] 2.16. 840.1.390676.3.579.2.732 1934 Unknown [id number] 2.16.8 40.1.391972.3.579.2.647 1934 Unknown [id number] 2.16.84 0.1.847233.3.579.2.593 1934 Unknown [id number] 2.16.84 0.1.558440.3.579.2.593 1934 Unknown [id number] 2.16.84 0.1.381264.3.579.2.593 1934 Unknown [id number] 2.16.84 0.1.009591.3.579.2.593 1934 Unknown [id number] 2.16.84 0.1.598180.3.579.2.593 1934 Unknown [id number] 2.16.84 0.1.717886.3.579.2.593 1934 Unknown [id number] 2.16.84 0.1.940874.3.579.2.593 1934 Unknown [id number] 2.16.84 0.1.065890.3.579.2.593 1934 Unknown [id number] 2.16.84 0.1.646925.3.579.2.593 1934 Unknown [id number] 2.16.84 0.1.244236.3.579.2.593 1934 Unknown [id number] 2.16.84 0.1.167687.3.579.2.593 1934 Unknown [id number] 2.16.84 0.1.235096.3.579.2.593 1934 Unknown [id number] 2.16.84 0.1.754372.3.579.2.593 1934 Unknown [id number] 2.16.84 0.1.423335.3.579.2.593 1934 Unknown [id number] 2.16.84 0.1.650435.3.579.2.593 1934 Unknown [id number] 2.16.84 0.1.740757.3.579.2.593 1934 Unknown [id number] 2.16.84 0.1.378202.3.579.2.593 1934 Unknown [id number] 2.16.84 0.1.452318.3.579.2.593 1934 Unknown [id number] 2.16.84 0.1.732507.3.579.2.593 1934 Unknown [id number] 2.16.84 0.1.878324.3.579.2.593 1934 Unknown [id number] 2.16.84 0.1.379120.3.579.2.593 193 Unknown [id number] 2.16.84 0.1.259632.3.579.2.593 193 Unknown [id number] 2.16.84 0.1.824007.3.579.2.593 193 Unknown [id number] 2.16.84 0.1.222233.3.579.2.593 193 Unknown [id number] 2.16.8 40.1.202646.3.579.2.727 193 Unknown [id number] 2.16.8 40.1.445596.3.579.2.727 1934 Unknown [id number] 2.16.8 40.1.721229.3.579.2.727 1934 Unknown [id number] 2.16.840 .1.419466.3.579.2.1259 1934 Unknown [id number] 2.16.8 40.1.128206.3.579.2.176 193 Unknown [id number] 2.16.8 40.1.044566.3.579.2.176 193 Unknown [id number] 2.16.8 40.1.699198.3.579.2.176 193 Unknown [id number] 2.16.8 40.1.741480.3.579.2.176 193 Unknown [id number] 2.16.8 40.1.900665.3.579.2.176 193 Unknown [id number] 2.16.8 40.1.129250.3.579.2.176 193 Unknown [id number] 2.16.8 40.1.032855.3.579.2.176 193 Unknown [id number] 2.16. 840.1.488140.3.579.2.175 07- Unknown [id number] 2.16. 840.1.243032.3.579.2.175 1934 Unknown [id number] 2.16. 840.1.212376.3.579.2.175 1934 Unknown [id number] 2.16. 840.1.556765.3.579.2.175 1934 Unknown [id number] 2.16. 840.1.982477.3.579.2.175 1934 Unknown [id number] 2.16.8 40.1.330659.3.579.2.128 1934 Unknown [id number] 2.16.8 40.1.078142.3.579.2.128 1934 Unknown [id number] 2.16.8 40.1.470365.3.579.2.1285 1934 Unknown [id number] 2.16.8 40.1.704242.3.579.2.1285 1934 Unknown [id number] 2.16.8 40.1.492552.3.579.2.1285 1934 Unknown [id number] 2.16.8 40.1.998281.3.579.2.6 1934 Unknown [id number] 2.16.8 40.1.669534.3.579.2.1286 Medicare [id number] Unknown [facility] [id number] Unknown [id number] 2.16.8 40.1.804963.3.579.2.531 Unknown [id number] 2.16.8 40.1.526505.3.579.2.531 Social History Date Type Detail Facility Start: 11-14-2022 Tobacco smoking status Ex-smoker (finding) [facility] [place] Tobacco smoking status Never [facility] [place] Start: 08-02-2012 Sex Assigned At Female F [facility] Start: 1935 Sex Assigned At Female F [facility] Tobacco smoking status NHIS Tobacco smoking consumption unknown [facility] Start: 08-02-2012 History of Social function [facility] Start: 1935 Sex Assigned At Not on file B [facility] Functional Status Date Assessment Result Facility 11-14-2022 Functional Status N/A General Zazueta stephany [facility] Clinical Notes 09-13-2021 to 10-13-2023 Ayaka Downing, [facility] - 05/29/2023 3:10 PM Nallely Faulkner, [facility] - 04/25/2023 3:30 PM Juan José Bullock, [facility] - 04/13/2023 3:30 PM EST Note Date & Type Note Facility 10-13-2023 Note [id number]= 6 age, female, CHF, HTN, DM Remains on warfarin anticoagulation and metoprolol for rate control. [facility] 10-13-2023 Note Continue to monitor [place] [facility] 10-13-2023 Note Moderate AO stenosis , extended d/w patient and family about possible invasive procedure/surgery in the future and pt states that she does not want any procedure/surgery at her age- [facility] had made her an appointment for possible valve replacement this Sunday- and I d/w family that this their decision whether to keep that appointment or not- possibly as a second opinion. [facility] 10-13-2023 Note [facility] 2-3 currently e uvolemic, without exacerbation Continue GDMT- ASA, metoprolol Diuretic therapy lasix 20 mg daily Currently with CKD and CR 2.2 and hypotension- GDMT is limited- currently unable to escalate with ACEi, ARB, ARNI Monitor daily weights, I&O, fluid restriction 1.5-2L/day, renal function and electrolytes- [facility] 10-13-2023 Note HTN stable and contr olled Continue all medications- metoprolol, aldactone [facility] 10-13-2023 Note Device check q 6 mon ths Staff to check device today and Device rep to review and will be evaluated by Dr Morales- VINNY [facility] 10-13-2023 Note Currently stable, no concerning symptoms [facility] 10-10-2023 Note Currently stable- 1 episode since last visit r/t hypoglycemia [facility] 10-10-2023 Note Patient here for 1 y ear follow up PAF, sinus node dysfunction s/p PPM, hypertension, and valve disorder. Review of Systems Cardiovascular: Positive for dyspnea on exertion, leg swelling (LLE), palpitations ( racing ) and syncope (one episode related to hypoglycemia). Musculoskeletal: Positive for muscle weakness. Neurological: Positive for focal weakness, light-headedness and weakness. All other systems reviewed and are negative. [facility] 10-10-2023 Note [facility]TP CARDIOLOGY PROGR ESS NOTE HPI: Gemma Lewis is a 88 y.o. female here for routine F/U HPI 88 yo female presents to clinic via W/C with her son. Patient here for 1 year follow up PAF, sinus node dysfunction s/p PPM, hypertension, and valve disorder. Pt recently was in hospital s/p fall and lt hip fracture s/p Pinning repair. She recovered fairly well from this episode but developed an non healing wound to Lt foot. She was then admitted to [facility] in September for acute Lt leg ischemia and had angiogram: Procedures: ULTRASOUND GUIDED RIGHT FEMORAL ACCESS SELECTIVE RIGHT LOWER EXTREMITY ANGIOGRAM/ ANGIOGRAM EXTREMITY LOWER/ BALLOON ANGIOPLASTY OF TIBIAL AND PERITINEAL (Left) DEBRIDEMENT FOOT/ANKLE (Left: Leg) AORTOGRAM WITH RUNOFF Diagnosis: Vascular surgery consulted [facility] for clearance for angiogram while inpt. Currently she is ambulatory via W/C. Son states that she is not hydrating well most days and has a poor appetite, but will not take ensure or boost supplements. DISCHARGE SUMMARY: PATIENT NAME: Gemma Lewis BIRTHDATE: 1935 DATE: 08/02/23 PRIMARY CARE PHYSICIAN: Chase Méndez MD ADMIT DATE: 07/23/2023 DISCHARGE DATE: 07/30/2023 DISPOSITION: snif ADMITTING DIAGNOSIS: Left femoral it fracture DIAGNOSIS: Patient Active Problem List Diagnosis A-fib ([facility]) Closed left hip fracture, initial encounter ([facility]) Fall from standing BERTHA (acute kidney injury) ([facility]) Urinary retention CKD (chronic kidney disease) stage 4, GFR 15-29 ml/min ([facility]) Hx of cardiac pacemaker CONSULTANTS: nephrology, urology,cardiology, orthopedics PROCEDURES: Date: 07/24/23 Room / Location: [address] Anesthesia Start: 1238 Anesthesia Stop: 1504 Procedure: FEMUR CEPHALOMEDULLARY NAIL INSERTION (Left: Leg Upper) Diagnosis: Closed nondisplaced intertrochanteric fracture of left femur, initial encounter ([facility]) (Closed nondisplaced intertrochanteric fracture of left femur, initial encounter ([facility]) [S72.145A]) Surgeons: John Perla DO Responsible Provider: Elizabeth Chisholm MD Anesthesia Type: general ASA Status: 4 HOSPITAL COURSE: Gemma Lewis is a 87 y.o. female who was admitted on 07/23/2023 Hospital Course: The patient is a 87 y.o. female who presents s/p fall at home and hip fracture. She went to OR with ortho for left femur cephalomedullary nail on 07/24/23. She developed urinary retention and required straight cath x2 yesterday for 370, 400 and again once overnight. She is voiding some into a brief, but today she had little urine output and >500mL on bladder scan, so primary ordered an indwelling cuba. Patient reports significant pain with positioning for catheterization. She also is noted to have BERTHA with Cr rising to 2.7 (from 2.2 on admission, unknown baseline). Review of Systems Cardiovascular: Positive for dyspnea on exertion, leg swelling (LLE), palpitations ( racing ) and syncope (one episode related to hypoglycemia). Musculoskeletal: Positive for muscle weakness. Neurological: Positive for focal weakness, light-headedness and weakness. All other systems reviewed and are negative Previous HPI per Dr Morales 10/31/22 Patient is doing well. She was admitted to [facility] for weakness but has been doing well [...] consistent with a.flutter Patient has got a [employer] dual-chamber pacemaker implanted on 08/19/2012 with thresholds that are in normal range. She is noted to have atrial flutter with a cycle length of nearly 440 ms. The ventricular rate is controlled during this time. EKG 01/21/2018 shows atrial pacing and [place] conduction 01/12/2017 shows AV seq (more content not included)... [facility] 05-29-2023 History of Present illness Narrative Patient [...] 0 Time Spent (min): 20 Ayaka Downing, PharmD PGY1 [employer] [facility] documented in this encounter [facility] 04-25-2023 History of Present illness [...] regimen will be decreased to 1.5 mg and 3 mg all other days. Will [...] 2 Time Spent (min): 20 Nallely Degroot, Pharm D, [facility] 04/25/2023 4:10 PM documented in this encounter [facility] 04-13-2023 History of Present illness Narrative [...] Interventions Accepted: 0 Time Spent (min): 20 Electronically signed by Juan José Velazquez [facility] at 04/13/2023 3:45 PM EST documented in this encounter [facility] 11-14-2022 Note Chief Complaint consultation for [...] tab(s), Oral, Chrissy (more content not included)... [facility] Comment on above: Result Comment: Elec tronically Signed By: JAY BRYAN, Tom Lujan\Date and Time Signed: 11/14/22 13:57 EDT 10-31-2022 Note [place] Electrophysiology Note [facility] Reason for visit: 6 month follow up 10/31/22 Patient is doing well. She was admitted to [facility] for weakness but has been doing well [...] consistent with a.flutter Patient has got a [employer] dual-chamber pacemaker implanted on 08/19/2012 with thresholds that are in normal range. She is noted to have atrial flutter with a cycle length of nearly 440 ms. The ventricular rate is controlled during this time. 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 [facility] 07-02-2022 Note PROCEDURE: US THYROI D [...] by: JUAN F ENCARNACION Date: 2022-07-02 08:56 [facility] 09-13-2021 Note PROCEDURE: XR HIP LT 2 [...] by: JUAN JOSÉ CHENG Date: 2021-09-13 09:15 [facility] Evaluation + Plan note Future Appointments Appointment Date:11/22/2022 03:20:00 PM Scheduled Provider:Tom THOMPSON MD Location:[facility] Appointment Type:GS Procedure 30 General Surgery [place] Evaluation + Plan note Future Appointments Appointment Date:12/05/2022 02:40:00 PM Scheduled Provider:Tom THOMPOSN MD Location:[facility] Appointment Type:GS Established 15 General Surgery [place] Evaluation note No assessment inform ation available [facility] Work Phone: Evaluation note Diagnosis Atrial fibrillation, unspecified type (HCC)- Primary [facility] this [facility] Diagnosis Atrial fibrillation, unspecified type (HCC)- Primary [facility] in this encounter [facility]* Diagnosis Atrial fibrillation, unspecified type (HCC)- Primary documented in this encounter [facility] Narrative No data available for this section [facility] [place] [facility] Discharge instructions No data available for this section General Surgery [place] Progress note No data available for this section General Surgery [place] Summary Purpose Family History No Family History [...] and content) DATE CREATED AUTHOR 11/28/2018 [facility] DATE CREATED AUTHOR AUTHOR'S ORGANIZ ATION 09/01/2021 [facility] DATE CREATED AUTHOR AUTHOR'S ORGANIZ ATION 08/25/2022 [facility] DATE CREATED AUTHOR AUTHOR'S ORGANIZ ATION 12/06/2022 [facility] DATE CREATED AUTHOR AUTHOR'S ORGANIZ ATION 03/03/2023 [facility] DATE CREATED AUTHOR AUTHOR'S ORGANIZ ATION 03/09/2023 [facility] DATE CREATED AUTHOR AUTHOR'S ORGANIZ ATION 07/21/2023 [facility] DATE CREATED AUTHOR AUTHOR'S ORGANIZ ATION 07/30/2023 [facility] DATE CREATED AUTHOR AUTHOR'S ORGANIZ ATION 09/07/2023 [facility] DATE CREATED AUTHOR AUTHOR'S ORGANIZ ATION 09/09/2023 [facility] DATE CREATED AUTHOR AUTHOR'S ORGANIZ ATION 09/20/2023 [facility] DATE CREATED AUTHOR AUTHOR'S ORGANIZ ATION 10/13/2023 [facility] Patient Care team informatio n (unrecognized section and content) Team Status: Inactive Member Role Status Dates Chaes Méndez MD Attending Provider Active 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 Start Date End Date Chase Méndez MD [facility] [place] [address] PCP - General 07/22/12 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 Start Date End Date Chase Méndez MD [address] [place] [address] PCP - General 07/22/12 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 Start Date End Date Chase Mén[place] [address] [place] [address] PCP - General 07/22/12 Goals (unrecognized section and content) Goals may be documented in a n alternate section Reason for Visit (unrecogniz ed section and content) Specialty Diagnoses / Procedures Referred By Javier t Referred To Contact Pharmacy Diagnoses Atrial fibrillation (HCC) Chase Méndez MD [address] [id number] [facility] Medication [address] [id number] Referral ID Status Reason Start Date Expiration Date V isits Requested Visits Authorized [id number] Authorized 03/22/2023 03/22/2024 99 99 Referral ID Status Reason Start Date Expiration Date V isits Requested Visits Authorized [id number] Pending Review 03/22/2023 03/22/2024 99 99 FOR [...] BE BASED ON THE PRIMARY CLINICAL RECORDS. [facility] [employer] [facility]. provides no warranty or guarantee of the accuracy or completeness of information in this document.
== END 2023-10-16 09:01 | disposition home or self-care (01) ==
LOC: WC 10-17 08:53
PROVIDERS: PCP Family Medicine; Visit Provider Physician Assistant
DX: E11.621 Type 2 diabetes mellitus with foot ulcer (principal); L97.428 Non-pressure chronic ulcer of left heel and midfoot with other specified severity
CPT/HCPCS: G0463

== ENCOUNTER 2023-10-18 00:17 | Outpatient (RCR) | payer MEDICARE, SELFPAY | END 2023-11-16 09:34 | disposition home or self-care (01) | LOC: MM 00:17 | PROVIDERS: PCP Family Medicine; Visit Provider Internal Medicine | DX: Z51.81 Encounter for therapeutic drug level monitoring (principal); Z79.01 Long term (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; I48.20 Chronic atrial fibrillation, unspecified ==

== ENCOUNTER 2023-10-18 14:55 | Outpatient (OUT) | payer MEDICARE, SELFPAY | END 2023-10-18 14:56 | disposition home or self-care (01) | LOC: PST 14:55 | PROVIDERS: PCP Family Medicine; Visit Provider Podiatrist Foot & Ankle Surgery | DX: Z01.818 Encounter for other preprocedural examination (principal); E11.621 Type 2 diabetes mellitus with foot ulcer; L97.428 Non-pressure chronic ulcer of left heel and midfoot with other specified severity ==

== ENCOUNTER 2023-10-22 08:30 | Day surgery (SDC) | payer MEDICARE, SELFPAY ==
[2023-10-22] VITALS (11 sets, daily range): BP systolic 105–130; BP diastolic 4–45; PULSE 60–69; TEMP 36.4–37.2; O2SAT 75–100; BMI 21.1
--- NOTE | 2023-10-22 08:30 | ECG_ITS ---
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
--- OUTSIDE RECORDS SUMMARY | 2023-10-22 08:40 | XMS_ITS | CCD ---
Author Organization [facility] Care Team Providers Care Supervisor Laboratory Animal Facility Name Role Phone PROVIDER, UNKNOWN Admitting Unavailable PROVIDER, UNKNOWN Attending Unavailable CHRISTINE ALEXANDRE Referring Unavailable PROVIDER, UNKNOWN Admitting Unavailable PROVIDER, UNKNOWN Attending Unavailable CHRISTINE ALEXANDRE Referring Unavailable PROVIDER, UNKNOWN Admitting Unavailable PROVIDER, UNKNOWN Attending Unavailable CHRISTINE ALEXANDRE Referring Unavailable ROB MORALES Attending Unavailable ROB MORALES Admitting Unavailable CHASE MÉNDEZ Referring Unavailable CHASE MÉNDEZ Primary Care Unavailable BERNICE DELEON Admitting [...] Jimenez Consulting Unavailable LATIA BAUMANN Consulting Unavailable GREGG, CARLOS Consulting Unavailable DARAMOLAMIRANDA Consulting Unavailable MORAIMAY ., DR ALVARENGA Admitting Unavailable HOY ., [...] Unavailable HOY ., DR ALVARENGA Admitting Unavailable GREENVIL[place], DR JUAN JOSÉ Mobley Consulting Unavailable HAY ., DR MERCADO Consulting Unavailable RAMIRO RODRIGUEZ Admitting Unavailable JENNIFER, RAMIRO Attending Unavailable MORAIMAY ., DR ALVARENGA Primary Care Unavailable HOY ., DR ALVARENGA Consulting Unavailable HOY ., DR ALVARENGA Primary Care Unavailable HOY ., DR ALVARENGA Admitting Unavailable HOY ., DR ALVARENGA Attending Unavailable JUAN F ENCARNACION Consulting Unavailable SHAIKH Carly TINSLEY Admitting Unavailable HOY ., DR ALVARENGA Primary Care Unavailable SHAIKH Carly TINSLEY Attending Unavailable AURELIO HUANG Admitting Unavailable AURELIO HUANG Attending Unavailable DEV ., DR ALVARENGA Primary Care Unavailable Chase Méndez Primary Care Physician [phone] Tom THOMPSON Attending Unavailable Tom THOMPSON Attending Unavailable Tom THOMPSON Attending Unavailable MD Chase Méndez Attending Provider Chase Méndez Attending Unavailable Hoy, Chase M Admitting Unavailable Hoy, Chase M Attending Unavailable Hoy, Chase M Admitting Unavailable ABDI ROYAL Attending Unavailable Chase Méndez MD Primary Care Provider HOY, CHASE M Referring Unavailable HOY, CHASE [...] BURRIS Consulting Unavailable SEVERIANO BRAMBILA Consulting Unavailable MARQUEZ CHOPRA Attending Unavailable NAV, MOHAMED F Admitting Unavailable NAV, MOHAMED F Attending Unavailable MARTHA MCLEAN Attending Unavailable NAV, MARQUEZ F Attending Unavailable NAV, MOHAMED F Referring Unavailable ROB MORALES Referring Unavailable ROB MORALES Attending Unavailable LV BLANKENSHIP Attending Unavailable KATY MONTOYA Attending Unavailab SANJAY Callejas MD Consulting Unavailable PAN JOHN C Referring Unavailable HOY, CHASE M Primary Care Unavailable HOY, CHASE M Primary Care Unavailable HOY, CHASE M Referring Unavailable SANJAY BERNARD Admitting Unavailable SANJAY BERNARD Consulting Unavailable SANJAY BERNARD Attending Unavailable HOY, CHASE M Primary Care Unavailable JOHN PERLA C Consulting Unavailable DENILSON MANN Consulting Unavailable MARGIE FUNEZ Consulting Unavailable LUCIO BURRIS Consulting Unavailable SEVERIANO BRAMBILA Consulting Unavailable BOOTHBY, JOHN C Referring Unavailable HOY, CHASE M Primary Care Unavailable BOARTHUR JOHN C Referring Unavailable HOY, CHASE M Primary Care Unavailable GERARDO ZAMORA Referring Unavailable HOY, CHASE M Primary Care Unavailable Allergies Allergy Classification Reported Allergen(s) Allergy Type Date of Onset Reaction(s) Facility (10 sources) Penicillins; Translations: [PENICILLINS] Propensity to adverse reactions to drug (disorder) 05-14-19 13 Anaphylactic shock due to serum (disorder), Urticaria [facility]disorder) [facility] Sulfonamides (Antibiotic); Translations: [SULFA ANTIBIOTICS] Propensity to adverse reactions to drug (disorder) 01-05-20 17 [facility] sources) Sulfonamides (Antibiotic); Translations: [SULFA (SULFONAMIDE ANTIBIOTICS)] Drug allergy (disorder) 05-14-19 13 [facility] Repository (2 sources) cefTRIAXone Drug Allergy 05-17-19 20 [facility] Repository (4 sources) Cephalexin; Translations: [cephalexin] Drug Allergy 09-01-19 Anaphylaxis (disorder) [facility] (4 sources) metroNIDAZOLE; Translations: [metronidazole] Drug Allergy 09-01-19 23 Weal (disorder) [facility] (3 sources) Sulfonamides (Antibiotic); Translations: [sulfa drugs] Drug allergy 01-04-20 17 Urticaria (disorder) [facility] (3 sources) cefTRIAXone; Translations: [CEFTRIAXONE] Drug Allergy 09-01-19 [facility] Repository (1 source) Sulfamethoxazole / Trimethoprim; Translations: [SULFAMETHOXAZOLE-T RIMETHOPRIM] Drug Allergy 11-01-19 [facility] Repository Medications Current Medications Medication [...] Status: Ordered Cranberry-Vitamin C (CRANBERRY CONCENTRATE/VITAMINC ) 29296-549 MG CAPS (2 sources) take 1 tablet by mouth once daily Cranberry-Vitamin C (CRANBERRY CONCENTRATE/VITAMIN C) 03503-567 MG CAPS Take 1 tablet by mouth [...] mg extended release oral capsule (2 sources) V-kgxelb-L-aspartate Receptor Antagonist Start: 11-08-2022 take 1 capsule [...] by mouth See Admin Instructions Dosed by [facility] Anticoagulation Service: 1.5 mg Wed/Sun and 3 mg all other days 0 [...] Chronic Asthma (2 sources) Asthma Onset: 3 08-23-2023 Chronic Bacterial infection; unspecified site (1 source) [...] 4 Episodic Gangrene (2 sources) Atherosclerosis of [place] arteries of extremities with gangrene, left leg; Translations: [Atherosclerosis of [place] arteries of extremities with gangrene, left leg] [...] (2 sources) Chronic fatigue syndrome 11-08-2022 Chronic Neoplasms of unspecified nature or uncertain behavior (4 sources) Neoplasm of uncertain behavior of skin; Translations: [Neoplasm of uncertain behavior of skin] Onset: 3 Episodic Osteoarthritis (1 source) Unspecified osteoarthritis, unspecified site; Translations: [UNSPECIFIED OSTEOARTHRITIS UNS SITE] Onset: 3 Chronic Osteoporosis (2 sources) Senile osteoporosis 11-08-2022 Chronic Other aftercare (5 sources) 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 manager (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; Translations: [NURSES' ASSOCIATION COUNSELOR CURRNT USE ANTICOAGULANTS] Onset: 3 Episodic Other aftercare (5 sources) Encounter for therapeutic drug level monitoring; Translations: [ENC THERAPEUTC DRUG LEVL MONITORING] Onset: 3 Episodic Other aftercare (1 source) 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 manager (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 insulin; Translations: [NURSES' ASSOCIATION COUNSELOR CURRENT USE OF INSULIN] Onset: 3 Episodic Other aftercare (5 sources) Other halfway (current) drug therapy; Translations: [OTH NURSES' ASSOCIATION COUNSELOR CURRENT DRUG THERAPY] Onset: 2 Episodic Other aftercare (1 source) 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 manager (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 oral hypoglycemic drugs; Translations: [NURSES' ASSOCIATION COUNSELOR USE ORAL HYPOGLYCEMIC DX] Onset: 3 Episodic [...] 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[facility]) [I70.262] Onset: 4 Unclassified (2 sources) Other [...] Translations: [OTHER ABNORMAL GLUCOSE] Onset: 04-26-2022 Episodic Malaise and fatigue (5 sources) Weakness; Translations: [Other fatigue] Onset: 08-03-2022 Episodic Other fractures (1 source) Other specified [...] Range Facility Office Visiton 10-10-2023 Follow-up visit [id number] Carrie Lewis 1935 F Date Provider Department Center 10/10/2023 [facility] BROWN [facility] No family history on file Level of Service:44087 DE OFFICE/OUTPATIENT ESTABLISHED MOD MDM 30 MIN Normal [facility] Creatinine (Bld) [Mass/Vol]o n 09-19-2023 Creatinine [Mass/Vol] 2.4 mg/dL High 0.4-1.0 [facility] Comment on above: Performed By: #### 6 299-2, 82108-0 #### [facility] ([id number]) [address] [place] [address] GFR/1.73 sq M.predicted among non-blacks MDRD (S/P/Bld) [Vol rate/Area] 19 mL/min/{1.73_m2} Low >59 [facility] Comment on above: Result Comment: Reported eGFR is based on the CKD-EPI 2020 equation that does not use a race coefficient. Performed By: #### 6 299-2, 57046-5 #### [facility] ([id number]) [address] [place] [address] HGB AND HCTon 09-19-2023 Hematocrit (Bld) [Volume fraction] 34.8 % Low 35-47 [facility] Comment on above: Performed By: #### H H #### [facility] [place] [facility] ([id number]) [address] [place] [address] Hemoglobin (Bld) [Mass/Vol] 11.0 g/dL Low 11.7-15.5 [facility] Comment on above: Performed By: #### H H #### [facility] [place] [facility] ([id number]) [address] [place] [address] Urea nitrogen (Bld) [Mass/Vo l]on 09-19-2023 Glucose [Mass/Vol] 101 mg/dL High 65-99 [facility] Comment on above: Performed By: #### 6 299-2, 06455-5 #### [facility] ([id number]) [address] [place] [address] XR FEMUR LEFT (MIN 2 VIEWS)o n [...] John Perla DO 09/06/[address] [facility] XR FOOT LEFT (MIN 3 VIEWS)on 09-06-2023 [...] by: Gerardo Zamora MD Boothby, Benjamin C, DO Signed by: John Perla DO 09/06/[address] [facility] XR FEMUR LEFT (MIN 2 VIEWS)o n [...] DO Miller, Richard Merton, DO Signed by: Katy Mohamud DO 09/05/[address] [facility] Basic Metabolic Profon 07-29 Anion gap [Moles/Vol] 9 mmol/L Normal - [facility] Comment on above: Performed By: #### B MPX #### [facility] [address] [place] [address] Rivet Tapping Machine Operator: Alexey Green MD Calcium [Mass/Vol] 8.1 mg/dL Low 8.6-10.4 [facility] Comment on above: Performed By: #### B MPX #### [facility] [address] [place] [address] [employer] Tapping Machine Operator: Alexey Green MD Chloride [Moles/Vol] 113 mmol/L High 98-107 [facility] Comment on above: Performed By: #### B MPX #### [facility] [place] [address] Rivet Tapping Machine Operator: Alexey Green MD CO2 [Moles/Vol] 18 mmol/L Low 20-31 [facility] Comment on above: Performed By: #### B MPX #### [facility] [address] [place] [address] [employer]et Tapping Machine Operator: Alexey Green MD Creatinine [Mass/Vol] 2.2 mg/dL High 0.50-0.90 [facility] Comment on above: Performed By: #### B MPX #### [address] [address] Rivet Tapping Machine Operator: Alexey Green MD GFR/1.73 sq M.predicted among non-blacks MDRD (S/P/Bld) [Vol rate/Area] 21 mL/min/{1.73_m2} Low >60 [facility] Comment on above: Result Comment: These [...] secretion. Performed By: #### B MPX #### [facility] [address] [place] [address] [employer] Tapping Machine Operator: Alexey Green MD Glucose [Mass/Vol] 157 mg/dL High 74-99 [facility] Comment on above: Performed By: #### B MPX #### [facility] [address] [place] [address] [employer] Tapping Machine Operator: Alexey Green MD Potassium [Moles/Vol] 4.8 mmol/L Normal 3.7-5.3 [facility] Comment on above: Performed By: #### B MPX #### [facility] [address] [place] [address] Rivet Tapping Machine Operator: Alexey Green MD Sodium [Moles/Vol] 140 mmol/L Normal 136-145 [facility] Comment on above: Performed By: #### B MPX #### [facility] [address] [place] [address] [employer] Tapping Machine Operator: Alexey Green MD Urea nitrogen [Mass/Vol] 42 mg/dL High 8-23 [facility] Comment on above: Performed By: #### B MPX #### [address] [address] [employer] Tapping Machine Operator: Alexey Green MD Anion gap [Moles/Vol] 9 mmol/L Normal 9-16 [facility] Comment on above: Performed By: #### C DP, BMP #### [address] [address] [employer] Tapping Machine Operator: Alexey Green MD Calcium [Mass/Vol] 8.1 mg/dL Low 8.6-10.4 [facility] Comment on above: Performed By: #### C DP, BMP #### [facility] [address] [place] [address] Rivet Tapping Machine Operator: Alexey Green MD Chloride [Moles/Vol] 113 mmol/L High 98-107 [facility] Comment on above: Performed By: #### C DP, BMP #### [facility] [address] [place] [address] [employer] Tapping Machine Operator: Alexey Green MD CO2 [Moles/Vol] 18 mmol/L Low 20-31 [facility] Comment on above: Performed By: #### C DP, BMP #### [address] [address] [employer] Tapping Machine Operator: Alexey Green MD Creatinine [Mass/Vol] 2.2 mg/dL High 0.50-0.90 [facility] Comment on above: Performed By: #### C DP, BMP #### [facility] [address] [place] [address] [employer] Tapping Machine Operator: Alexey Green MD GFR/1.73 sq M.predicted among non-blacks MDRD (S/P/Bld) [Vol rate/Area] 21 mL/min/{1.73_m2} Low >60 [facility] Comment on above: Result Comment: These [...] Performed By: #### C DP, BMP #### [facility] [address] [place] [address] [employer] Tapping Machine Operator: Alexey Green MD Glucose [Mass/Vol] 157 mg/dL High 74-99 [facility] Comment on above: Performed By: #### C DP, BMP #### [facility] [address] [place] [address] [employer] Tapping Machine Operator: Alexey Green MD Potassium [Moles/Vol] 4.8 mmol/L Normal 3.7-5.3 [facility] Comment on above: Performed By: #### C DP, BMP #### [facility] [address] [place] [address] [employer] T[employer] Machine Operator: Alexey Green MD Sodium [Moles/Vol] 140 mmol/L Normal 136-145 [facility] Comment on above: Performed By: #### C DP, BMP #### [facility] [address] [place] [address] [employer] Tapping Machine Operator: Alexey Green MD Urea nitrogen [Mass/Vol] 42 mg/dL High 8-23 [facility] Comment on above: Performed By: #### C DP, BMP #### [facility] [address] [place] [address] [employer] T[employer] Machine Operator: Alexey Green MD CBC with Diffon 07-30-2023 Abs. Basophil 0.00 k/uL Normal 0.00-0.20 [facility] Comment on above: Performed By: #### B MPX #### [facility] [address] [address] Rivet Tapping Machine Operator: Alexey Green MD Abs.Imm.Granulocyte 0.11 k/uL Normal 0.00-0.30 [facility] Comment on above: Performed By: #### B MPX #### [address] [address] [employer] Tapping Machine Operator: Alexey Green MD Abs.Neutrophil (Seg) 5.72 k/uL Normal 1.50-8.10 [facility] Comment on above: Performed By: #### B MPX #### [address] [address] [employer] Tapping Machine Operator: Alexey Green MD Basophils/100 WBC (Bld) 0 % Normal 0-2 [facility] Comment on above: Performed By: #### B MPX #### [address] [address] [employer] Machine Operator: Alexey Green MD Eosinophils (Bld) [#/Vol] 0.32 10*3/uL Normal 0.00-0.44 [facility] Comment on above: Performed By: #### B MPX #### [address] [address] [employer] Tapping Machine Operator: Alexey Green MD Eosinophils/100 WBC (Bld) 3 % Normal 1-4 [facility] Comment on above: Performed By: #### B MPX #### [address] [address] [employer] T[employer] Machine Operator: Alexey Green MD Immature granulocytes/100 WBC (Bld) 1 % High 0 [facility] Comment on above: Performed By: #### B MPX #### [address] [address] [employer] Tapping Machine Operator: Alexey Green MD Lymphocytes (Bld) [#/Vol] 2.92 10*3/uL Normal 1.10-3.70 [facility] Comment on above: Performed By: #### B MPX #### [address] [address] [employer] Tapping Machine Operator: Alexey Green MD Lymphocytes/100 WBC (Bld) 27 % Normal 24-43 [facility] Comment on above: Performed By: #### B MPX #### [address] [address] [employer] Tapping Machine Operator: Alexey Green MD Monocytes (Bld) [#/Vol] 1.73 10*3/uL High 0.10-1.20 [facility] Comment on above: Performed By: #### B MPX #### [address] [address] [employer] Tapping Machine Operator: Alexey Green MD Monocytes/100 WBC (Bld) 16 % High 3-12 [facility] Comment on above: Performed By: #### B MPX #### [address] [address] [employer] Tapping Machine Operator: Alexey Green MD Morphology Tito (Bld) [Interp] ANISOCYTOSIS PRESENT Normal [facility] Comment on above: Result Comment: MACR OCYTOSIS PRESENT Performed By: #### B MPX #### [address] [address] [employer]apping Machine Operator: Alexey Green MD Neutrophil (Seg) 53 % Normal 36-65 [facility] Comment on above: Performed By: #### B MPX #### [address] [address] [employer] Machine Operator: Alexey Green MD Erythrocyte distribution width (RBC) [Ratio] 17.7 % High 11.8-14.4 [facility] Comment on above: Performed By: #### B MPX #### [address] [address] [employer] Machine Operator: Alexey Green MD Hematocrit (Bld) [Volume fraction] 26.6 % Low 36.3-47.1 [facility] Comment on above: Performed By: #### B MPX #### [address] [address] [employer] Machine Operator: Alexey Green MD Hemoglobin (Bld) [Mass/Vol] 7.6 g/dL Low 11.9-15.1 [facility] Comment on above: Performed By: #### B MPX #### [address] [address] [employer] Machine Operator: Alexey Green MD MCH (RBC) [Entitic mass] 29.5 pg Normal 25.2-33.5 [facility] Comment on above: Performed By: #### B MPX #### [address] [address] [employer] T[employer] Machine Operator: Alexey Green MD MCHC (RBC) [Mass/Vol] 28.6 g/dL Normal 28.4-34.8 [facility] Comment on above: Performed By: #### B MPX #### [address] [address] [employer] Machine Operator: Alexey Green MD MCV (RBC) [Entitic vol] 103.1 fL High 82.6-102.9 [facility] Comment on above: Performed By: #### B MPX #### [address] [address] [employer] Machine Operator: Alexey Green MD NRBC Automated 0.4 per [address] [facility] Comment on above: Performed By: #### B MPX #### [address] [address] [employer] Machine Operator: Alexey Green MD Platelet mean volume (Bld) [Entitic vol] 10.9 fL Normal 8.1-13.5 [facility] Comment on above: Performed By: #### B MPX #### [address] [address] [employer] Machine Operator: Alexey Green MD Platelets (Bld) [#/Vol] 226 10*3/uL Normal 138-453 [facility] Comment on above: Performed By: #### B MPX #### [place] [address] [employer] Machine Operator: Alexey Green MD RBC (Bld) [#/Vol] 2.58 10*6/uL Low 3.95-5.11 [facility] Comment on above: Performed By: #### B MPX #### [place] [address] [employer] Machine Operator: Alexey Green MD WBC (Bld) [#/Vol] 10.8 10*3/uL Normal 3.5-11.3 [facility] Comment on above: Performed By: #### B MPX #### [place] [address] [employer] Machine Operator: Alexey Green MD Abs. Basophil 0.00 k/uL Normal 0.00-0.20 [facility] Comment on above: Performed By: #### C DP, BMP #### [place] [address] [employer] Machine Operator: Alexey Green MD Abs.Imm.Granulocyte 0.11 k/uL Normal 0.00-0.30 [facility] Comment on above: Performed By: #### C DP, BMP #### [place] [address] [employer] Machine Operator: Alexey Green MD Abs.Neutrophil (Seg) 5.72 k/uL Normal 1.50-8.10 [facility] Comment on above: Performed By: #### C DP, BMP #### [address] [address] [employer] Machine Operator: Alexey Green MD Basophils/100 WBC (Bld) 0 % Normal 0-2 [facility] Comment on above: Performed By: #### C DP, BMP #### [address] [address] [employer] Operator: Alexey Green MD Eosinophils (Bld) [#/Vol] 0.32 10*3/uL Normal 0.00-0.44 [facility] Comment on above: Performed By: #### C DP, BMP #### [address] [address] [employer] Machine Operator: Alexey Green MD Eosinophils/100 WBC (Bld) 3 % Normal 1-4 [facility] Comment on above: Performed By: #### C DP, BMP #### [address] [address] [employer] Machine Operator: Alexey Green MD Immature granulocytes/100 WBC (Bld) 1 % High 0 [facility] Comment on above: Performed By: #### C DP, BMP #### [address] [address] [employer] Machine Operator: Alexey Green MD Lymphocytes (Bld) [#/Vol] 2.92 10*3/uL Normal 1.10-3.70 [facility] Comment on above: Performed By: #### C DP, BMP #### [address] [address] [employer] Machine Operator: Alexey Green MD Lymphocytes/100 WBC (Bld) 27 % Normal 24-43 [facility] Comment on above: Performed By: #### C DP, BMP #### [address] [address] [employer] Operator: Alexey Green MD Monocytes (Bld) [#/Vol] 1.73 10*3/uL High 0.10-1.20 [facility] Comment on above: Performed By: #### C DP, BMP #### [address] [address] [employer] Machine Operator: Alexey Green MD Monocytes/100 WBC (Bld) 16 % High 3-12 [facility] Comment on above: Performed By: #### C DP, BMP #### [address] [address] [employer] Machine Operator: Alexey Green MD Morphology Tito (Bld) [Interp] ANISOCYTOSIS PRESENT Normal [facility] Comment on above: Result Comment: MACR OCYTOSIS PRESENT Performed By: #### C DP, BMP #### [address] [address] [employer] Machine Operator: Alexey Green MD Neutrophil (Seg) 53 % Normal 36-65 [facility] Comment on above: Performed By: #### C DP, BMP #### [address] [address] [employer] Operator: Alexey Green MD Erythrocyte distribution width (RBC) [Ratio] 17.7 % High 11.8-14.4 [facility] Comment on above: Performed By: #### C DP, BMP #### [address] [address] [employer] Machine Operator: Alexey Green MD Hematocrit (Bld) [Volume fraction] 26.6 % Low 36.3-47.1 [facility] Comment on above: Performed By: #### C DP, BMP #### [address] [address] [employer] Machine Operator: Alexey Green MD Hemoglobin (Bld) [Mass/Vol] 7.6 g/dL Low 11.9-15.1 [facility] Comment on above: Performed By: #### C DP, BMP #### [address] [address] [employer] Machine Operator: Alexey Green MD MCH (RBC) [Entitic mass] 29.5 pg Normal 25.2-33.5 [facility] Comment on above: Performed By: #### C DP, BMP #### [place] [address] [employer] Machine Operator: Alexey Green MD MCHC (RBC) [Mass/Vol] 28.6 g/dL Normal 28.4-34.8 [facility] Comment on above: Performed By: #### C DP, BMP #### [address] [address] [employer] Machine Operator: Alexey Green MD MCV (RBC) [Entitic vol] 103.1 fL High 82.6-102.9 [facility] Comment on above: Performed By: #### C DP, BMP #### [address] [address] [employer] Machine Operator: Alexey Green MD NRBC Automated 0.4 per [address] [facility] Comment on above: Performed By: #### C DP, BMP #### [place] [address] [employer] Operator: Alexey Green MD Platelet mean volume (Bld) [Entitic vol] 10.9 fL Normal 8.1-13.5 [facility] Comment on above: Performed By: #### C DP, BMP #### [address] [address] [employer] Machine Operator: Alexey Green MD Platelets (Bld) [#/Vol] 226 10*3/uL Normal 138-453 [facility] Comment on above: Performed By: #### C DP, BMP #### [facility] [address] [place] [address] [employer] Machine Operator: Alexey Green MD RBC (Bld) [#/Vol] 2.58 10*6/uL Low 3.95-5.11 [facility] Comment on above: Performed By: #### C DP, BMP #### [address] [address] [employer] Machine Operator: Alexey Green MD WBC (Bld) [#/Vol] 10.8 10*3/uL Normal 3.5-11.3 [facility] Comment on above: Performed By: #### C DP, BMP #### [address] [address] [employer] Machine Operator: Alexey Green MD Basic Metabolic Profon 07-28 Anion gap [Moles/Vol] 9 mmol/L Normal 9-16 [facility] Comment on above: Performed By: #### B MPX #### [address] [address] [employer] Operator: Alexey Green MD Calcium [Mass/Vol] 8.1 mg/dL Low 8.6-10.4 [facility] Comment on above: Performed By: #### B MPX #### [facility] [address] [place] [address] [employer] Operator: Alexey Green MD Chloride [Moles/Vol] 112 mmol/L High 98-107 [facility] Comment on above: Performed By: #### B MPX #### [address] [address] [employer]: Alexey Green MD CO2 [Moles/Vol] 18 mmol/L Low 20-31 [facility] Comment on above: Performed By: #### B MPX #### [facility] [employer] [address] [place] [address] [employer]: Alexey Green MD Creatinine [Mass/Vol] 2.5 mg/dL High 0.50-0.90 [facility] Comment on above: Performed By: #### B MPX #### [address] [address] [employer] Operator: Alexey Green MD GFR/1.73 sq M.predicted among non-blacks MDRD (S/P/Bld) [Vol rate/Area] 18 mL/min/{1.73_m2} Low >60 [facility] Comment on above: Result Comment: These [...] secretion. Performed By: #### B MPX #### [facility] [employer] [address] [place] [address] [employer]: Alexey Green MD Glucose [Mass/Vol] 109 mg/dL High 74-99 [facility] Comment on above: Performed By: #### B MPX #### [facility] [employer] [address] [place] [address] [employer]: Alexey Green MD Potassium [Moles/Vol] 4.6 mmol/L Normal 3.7-5.3 [facility] Comment on above: Performed By: #### B MPX #### [facility] [employer] [address] [place] [address] [employer]: Alexey Green MD Sodium [Moles/Vol] 139 mmol/L Normal 136-145 [facility] Comment on above: Performed By: #### B MPX #### [address] [address] [employer]: Alexey Green MD Urea nitrogen [Mass/Vol] 45 mg/dL High 8-23 [facility] Comment on above: Performed By: #### B MPX #### [address] [address] [employer]: Alexey Green MD Anion gap [Moles/Vol] 9 mmol/L Normal 9-16 [facility] Comment on above: Performed By: #### C DP, BMP #### [address] [address] [employer]: Alexey Green MD Calcium [Mass/Vol] 8.1 mg/dL Low 8.6-10.4 [facility] Comment on above: Performed By: #### C DP, BMP #### [address] [address] [employer]: Alexey Green MD Chloride [Moles/Vol] 112 mmol/L High 98-107 [facility] Comment on above: Performed By: #### C DP, BMP #### [address] [address] [employer]: Alexey Green MD CO2 [Moles/Vol] 18 mmol/L Low 20-31 [facility] Comment on above: Performed By: #### C DP, BMP #### [address] [address] [employer]: Alexey Green MD Creatinine [Mass/Vol] 2.5 mg/dL High 0.50-0.90 [facility] Comment on above: Performed By: #### C DP, BMP #### [facility] [employer] [address] [place] [address] [employer]: Alexey Green MD GFR/1.73 sq M.predicted among non-blacks MDRD (S/P/Bld) [Vol rate/Area] 18 mL/min/{1.73_m2} Low >60 [facility] Comment on above: Result Comment: These [...] Performed By: #### C DP, BMP #### [facility] [address] [place] [address] [employer] Operator: Alexey Green MD Glucose [Mass/Vol] 109 mg/dL High 74-99 [facility] Comment on above: Performed By: #### C DP, BMP #### [facility] [address] [place] [address] [employer]: Alexey Green MD Potassium [Moles/Vol] 4.6 mmol/L Normal 3.7-5.3 [facility] Comment on above: Performed By: #### C DP, BMP #### [facility] [address] [place] [address] [employer]: Alexey Green MD Sodium [Moles/Vol] 139 mmol/L Normal 136-145 [facility] Comment on above: Performed By: #### C DP, BMP #### [facility] [address] [place] [address] [employer]: Alexey Green MD Urea nitrogen [Mass/Vol] 45 mg/dL High 8-23 [facility] Comment on above: Performed By: #### C DP, BMP #### [facility] [address] [place] [address] [employer]: Alexey Green MD CBC with Diffon 07-29-2023 Abs. Basophil 0.05 k/uL Normal 0.00-0.20 [facility] Comment on above: Performed By: #### B MPX #### [facility] [address] [place] [address] [employer] Operator: Alexey Green MD Abs.Imm.Granulocyte 0.09 k/uL Normal 0.00-0.30 [facility] Comment on above: Performed By: #### B MPX #### [address] [address] [employer]: Alexey Green MD Abs.Neutrophil (Seg) 5.76 k/uL Normal 1.50-8.10 [facility] Comment on above: Performed By: #### B MPX #### [address] [address] [employer]: Alexey Green MD Basophils/100 WBC (Bld) 1 % Normal 0-2 [facility] Comment on above: Performed By: #### B MPX #### [address] [address] [employer]: Alexey Green MD Eosinophils (Bld) [#/Vol] 0.65 10*3/uL High 0.00-0.44 [facility] Comment on above: Performed By: #### B MPX #### [address] [address] [employer]: Alexey Green MD Eosinophils/100 WBC (Bld) 6 % High 1-4 [facility] Comment on above: Performed By: #### B MPX #### [address] [address] [employer]: Alexey Green MD Erythrocyte distribution width (RBC) [Ratio] 17.6 % High 11.8-14.4 [facility] Comment on above: Performed By: #### B MPX #### [address] [address] [employer]: Alexey Green MD Hematocrit (Bld) [Volume fraction] 27.1 % Low 36.3-47.1 [facility] Comment on above: Performed By: #### B MPX #### [address] [address] [employer]: Alexey Green MD Hemoglobin (Bld) [Mass/Vol] 7.7 g/dL Low 11.9-15.1 [facility] Comment on above: Performed By: #### B MPX #### [address] [address] [employer]: Alexey Green MD Immature granulocytes/100 WBC (Bld) 1 % High 0 [facility] Comment on above: Performed By: #### B MPX #### [address] [address] [employer]: Alexey Green MD Lymphocytes (Bld) [#/Vol] 2.69 10*3/uL Normal 1.10-3.70 [facility] Comment on above: Performed By: #### B MPX #### [address] [address] [employer]: Alexey Green MD Lymphocytes/100 WBC (Bld) 25 % Normal 24-43 [facility] Comment on above: Performed By: #### B MPX #### [address] [address] [employer]: Alexey Green MD MCH (RBC) [Entitic mass] 29.5 pg Normal 25.2-33.5 [facility] Comment on above: Performed By: #### B MPX #### [address] [address] [employer]: Alexey Green MD MCHC (RBC) [Mass/Vol] 28.4 g/dL Normal 28.4-34.8 [facility] Comment on above: Performed By: #### B MPX #### [address] [address] [employer] Operator: Alexey Green MD MCV (RBC) [Entitic vol] 103.8 fL High 82.6-102.9 [facility] Comment on above: Performed By: #### B MPX #### [address] [address] [employer] Operator: Alexey Green MD Monocytes (Bld) [#/Vol] 1.34 10*3/uL High 0.10-1.20 [facility] Comment on above: Performed By: #### B MPX #### [address] [address] [employer]: Alexey Green MD Monocytes/100 WBC (Bld) 13 % High 3-12 [facility] Comment on above: Performed By: #### B MPX #### [address] [address] [employer]: Alexey Green MD Neutrophil (Seg) 54 % Normal 36-65 [facility] Comment on above: Performed By: #### B MPX #### [address] [address] [employer]: Alexey Green MD NRBC Automated 0.3 per [address] [facility] Comment on above: Performed By: #### B MPX #### [address] [address] [employer]: Alexey Green MD Platelet mean volume (Bld) [Entitic vol] 11.4 fL Normal 8.1-13.5 [facility] Comment on above: Performed By: #### B MPX #### [address] [address] [employer]: Alexey Green MD Platelets (Bld) [#/Vol] 180 10*3/uL Normal 138-453 [facility] Comment on above: Performed By: #### B MPX #### [address] [address] [employer]: Alexey Green MD RBC (Bld) [#/Vol] 2.61 10*6/uL Low 3.95-5.11 [facility] Comment on above: Performed By: #### B MPX #### [address] [address] [employer] Operator: Alexey Green MD RBC morphology finding Nom (Bld) ANISOCYTOSIS PRESENT Normal [facility] Comment on above: Result Comment: MACR OCYTOSIS PRESENT Performed By: #### B MPX #### [address] [address] [employer] Operator: Alexey Green MD WBC (Bld) [#/Vol] 10.6 10*3/uL Normal 3.5-11.3 [facility] Comment on above: Performed By: #### B MPX #### [address] [address] [employer] Operator: Alexey Green MD Abs. Basophil 0.05 k/uL Normal 0.00-0.20 [facility] Comment on above: Performed By: #### C DP, BMP #### [address] [address] [employer]: Alexey Green MD Abs.Imm.Granulocyte 0.09 k/uL Normal 0.00-0.30 [facility] Comment on above: Performed By: #### C DP, BMP #### [address] [address] [employer] Operator: Alexey Green MD Abs.Neutrophil (Seg) 5.76 k/uL Normal 1.50-8.10 [facility] Comment on above: Performed By: #### C DP, BMP #### [facility] [employer] [address] [place] [address] [employer] Operator: Alexey Green MD Basophils/100 WBC (Bld) 1 % Normal 0-2 [facility] Comment on above: Performed By: #### C DP, BMP #### [facility] [employer] [address] [place] [address] [employer] Operator: Alexey Green MD Eosinophils (Bld) [#/Vol] 0.65 10*3/uL High 0.00-0.44 [facility] Comment on above: Performed By: #### C DP, BMP #### [facility] [employer] [address] [place] [address] [employer]: Alexey Green MD Eosinophils/100 WBC (Bld) 6 % High 1-4 [facility] Comment on above: Performed By: #### C DP, BMP #### [facility] [employer] [address] [place] [address] [employer] Operator: Alexey Green MD Erythrocyte distribution width (RBC) [Ratio] 17.6 % High 11.8-14.4 [facility] Comment on above: Performed By: #### C DP, BMP #### [facility] [employer] [address] [place] [address] [employer] Operator: Alexey Green MD Hematocrit (Bld) [Volume fraction] 27.1 % Low 36.3-47.1 [facility] Comment on above: Performed By: #### C DP, BMP #### [facility] [address] [place] [address] [employer] Operator: Alexey Green MD Hemoglobin (Bld) [Mass/Vol] 7.7 g/dL Low 11.9-15.1 [facility] Comment on above: Performed By: #### C DP, BMP #### [address] [address] [employer] Operator: Alexey Green MD Immature granulocytes/100 WBC (Bld) 1 % High 0 [facility] Comment on above: Performed By: #### C DP, BMP #### [address] [address] [employer] Operator: Alexey Green MD Lymphocytes (Bld) [#/Vol] 2.69 10*3/uL Normal 1.10-3.70 [facility] Comment on above: Performed By: #### C DP, BMP #### [address] [address] [employer]: Alexey Green MD Lymphocytes/100 WBC (Bld) 25 % Normal 24-43 [facility] Comment on above: Performed By: #### C DP, BMP #### [address] [address] [employer]: Alexey Green MD MCH (RBC) [Entitic mass] 29.5 pg Normal 25.2-33.5 [facility] Comment on above: Performed By: #### C DP, BMP #### [address] [address] [employer] Operator: Alexey Green MD MCHC (RBC) [Mass/Vol] 28.4 g/dL Normal 28.4-34.8 [facility] Comment on above: Performed By: #### C DP, BMP #### [address] [address] [employer] Operator: Alexey Green MD MCV (RBC) [Entitic vol] 103.8 fL High 82.6-102.9 [facility] Comment on above: Performed By: #### C DP, BMP #### [address] [address] [employer] Operator: Alexey Green MD Monocytes (Bld) [#/Vol] 1.34 10*3/uL High 0.10-1.20 [facility] Comment on above: Performed By: #### C DP, BMP #### [address] [address] [employer]: Alexey Green MD Monocytes/100 WBC (Bld) 13 % High 3-12 [facility] Comment on above: Performed By: #### C DP, BMP #### [address] [address] [employer]: Alexey Green MD Neutrophil (Seg) 54 % Normal 36-65 [facility] Comment on above: Performed By: #### C DP, BMP #### [address] [address] [employer] Operator: Alexey Green MD NRBC Automated 0.3 per [address] [facility] Comment on above: Performed By: #### C DP, BMP #### [address] [address] [employer] Operator: Alexey Green MD Platelet mean volume (Bld) [Entitic vol] 11.4 fL Normal 8.1-13.5 [facility] Comment on above: Performed By: #### C DP, BMP #### [address] [address] [employer] Operator: Alexey Green MD Platelets (Bld) [#/Vol] 180 10*3/uL Normal 138-453 [facility] Comment on above: Performed By: #### C DP, BMP #### [address] [address] [employer] Operator: Alexey Green MD RBC (Bld) [#/Vol] 2.61 10*6/uL Low 3.95-5.11 [facility] Comment on above: Performed By: #### C DP, BMP #### [address] [address] [employer] Operator: Alexey Green MD RBC morphology finding Nom (Bld) ANISOCYTOSIS PRESENT Normal [facility] Comment on above: Result Comment: MACR OCYTOSIS PRESENT Performed By: #### C DP, BMP #### [address] [address] [employer] Operator: Alexey Green MD WBC (Bld) [#/Vol] 10.6 10*3/uL Normal 3.5-11.3 [facility] Comment on above: Performed By: #### C DP, BMP #### [address] [address] [employer]: Alexey Green MD ROYCE Screenon 07-28-2023 ROYCE Screen Negative Normal NEG [facility] Comment on above: Performed By: #### U RNA, URTP, URCRE, UEOS #### [address] [address] [employer]: Alexey Green MD Anti-dsDNA 1.1 IU/mL Normal <10.0 [facility] Comment on above: Result Comment: Reference Range: <10.0 Negative 10.0-15.0 Equivocal >15.0 Positive Performed By: #### U RNA, URTP, URCRE, UEOS #### [address] [address] [employer]: Alexey Green MD BROOK Screen 0.1 U/mL Normal <0.7 [facility] Comment on above: Result Comment: Reference Range: <0.7 Negative 0.7-1.0 Equivocal >1.0 Positive BROOK Screen includes U1RNP,RNP70,Sm,Ro(SS-A),La(SS-B),CENP,Scl-70,Elva-1 Performed By: #### U RNA, URTP, URCRE, UEOS #### [address] [address] [employer] Operator: Alexey Green MD ROYCE Screen Negative Normal NEG [facility] Comment on above: Performed By: #### U ZACARIAS UA #### [address] [address] [employer] Operator: Alexey Green MD Anti-dsDNA 1.1 IU/mL Normal <10.0 [facility] Comment on above: Result Comment: Reference Range: <10.0 Negative 10.0-15.0 Equivocal >15.0 Positive Performed By: #### Tanja ADAMES UA #### [address] [address] [employer] Operator: Alexey Green MD BROOK Screen 0.1 U/mL Normal <0.7 [facility] Comment on above: Result Comment: Reference Range: <0.7 Negative 0.7-1.0 Equivocal >1.0 Positive BROOK Screen includes U1RNP,RNP70,Sm,Ro(SS-A),La(SS-B),CENP,Scl-70,Elva-1 Performed By: #### Tanja ADAMES UA #### [address] [address] [employer]: Alexey Green MD Basic Metabolic Profon 07-27 Anion gap [Moles/Vol] 9 mmol/L Normal 9-16 [facility] Comment on above: Performed By: #### B MPX #### [address] [address] [employer] Operator: Alexey Green MD Calcium [Mass/Vol] 7.8 mg/dL Low 8.6-10.4 [facility] Comment on above: Performed By: #### B MPX #### [address] [address] [employer] Operator: Alexey Green MD Chloride [Moles/Vol] 110 mmol/L High 98-107 [facility] Comment on above: Performed By: #### B MPX #### [facility] [address] [place] [address] [employer] Operator: Alexey Green MD CO2 [Moles/Vol] 18 mmol/L Low 20-31 [facility] Comment on above: Performed By: #### B MPX #### [facility] [address] [place] [address] [employer] Operator: Alexey Green MD Creatinine [Mass/Vol] 2.5 mg/dL High 0.50-0.90 [facility] Comment on above: Performed By: #### B MPX #### [address] [address] [employer]: Alexey Green MD GFR/1.73 sq M.predicted among non-blacks MDRD (S/P/Bld) [Vol rate/Area] 18 mL/min/{1.73_m2} Low >60 [facility] Comment on above: Result Comment: These [...] secretion. Performed By: #### B MPX #### [facility] [employer] [address] [place] [address] [employer] Operator: Alexey Green MD Glucose [Mass/Vol] 143 mg/dL High 74-99 [facility] Comment on above: Performed By: #### B MPX #### [facility] [employer] [address] [place] [address] [employer] Operator: Alexey Green MD Potassium [Moles/Vol] 4.4 mmol/L Normal 3.7-5.3 [facility] Comment on above: Performed By: #### B MPX #### [address] [address] [employer] Operator: Alexey Green MD Sodium [Moles/Vol] 137 mmol/L Normal 136-145 [facility] Comment on above: Performed By: #### B MPX #### [address] [address] [employer] Operator: Alexey Green MD Urea nitrogen [Mass/Vol] 44 mg/dL High 8-23 [facility] Comment on above: Performed By: #### B MPX #### [address] [address] [employer] Operator: Alexey Green MD Anion gap [Moles/Vol] 9 mmol/L Normal 9-16 [facility] Comment on above: Performed By: #### C DP, BMP #### [address] [address] [employer] Operator: Alexey Green MD Calcium [Mass/Vol] 7.8 mg/dL Low 8.6-10.4 [facility] Comment on above: Performed By: #### C DP, BMP #### [address] [address] [employer] Operator: Alexey Green MD Chloride [Moles/Vol] 110 mmol/L High 98-107 [facility] Comment on above: Performed By: #### C DP, BMP #### [address] [address] [employer] Operator: Alexey Green MD CO2 [Moles/Vol] 18 mmol/L Low 20-31 [facility] Comment on above: Performed By: #### C DP, BMP #### [address] [address] [employer] Operator: Alexey Green MD Creatinine [Mass/Vol] 2.5 mg/dL High 0.50-0.90 [facility] Comment on above: Performed By: #### C DP, BMP #### [facility] [address] [place] [address] [employer] Operator: Alexey Green MD GFR/1.73 sq M.predicted among non-blacks MDRD (S/P/Bld) [Vol rate/Area] 18 mL/min/{1.73_m2} Low >60 [facility] Comment on above: Result Comment: These [...] Performed By: #### C DP, BMP #### [facility] [address] [place] [address] [employer] Operator: Alexey Green MD Glucose [Mass/Vol] 143 mg/dL High 74-99 [facility] Comment on above: Performed By: #### C DP, BMP #### [facility] [address] [place] [address] [employer] Operator: Alexey Green MD Potassium [Moles/Vol] 4.4 mmol/L Normal 3.7-5.3 [facility] Comment on above: Performed By: #### C DP, BMP #### [employer] [address] [place] [address] [employer] Operator: Alexey Green MD Sodium [Moles/Vol] 137 mmol/L Normal 136-145 [facility] Comment on above: Performed By: #### C DP, BMP #### [facility] [address] [place] [address] [phone] [employer] Operator: Alexey Green MD Urea nitrogen [Mass/Vol] 44 mg/dL High 8-23 [facility] Comment on above: Performed By: #### C DP, BMP #### [place] [address] [employer] Operator: Alexey Green MD CBC with Diffon 07-28-2023 Abs. Basophil 0.03 k/uL Normal 0.00-0.20 [facility] Comment on above: Performed By: #### U RNA, URTP, URCRE, UEOS #### [place] [address] [employer] Operator: Alexey Green MD Abs.Imm.Granulocyte 0.06 k/uL Normal 0.00-0.30 [facility] Comment on above: Performed By: #### U RNA, URTP, URCRE, UEOS #### [place] [address] [employer] Operator: Alexey Green MD Abs.Neutrophil (Seg) 5.08 k/uL Normal 1.50-8.10 [facility] Comment on above: Performed By: #### U RNA, URTP, URCRE, UEOS #### [place] [address] [employer] Operator: Alexey Green MD Basophils/100 WBC (Bld) 0 % Normal 0-2 [facility] Comment on above: Performed By: #### U RNA, URTP, URCRE, UEOS #### [place] [address] [employer] Operator: Alexey Green MD Eosinophils (Bld) [#/Vol] 0.65 10*3/uL High 0.00-0.44 [facility] Comment on above: Performed By: #### U RNA, URTP, URCRE, UEOS #### [address] [address] [employer] Operator: Alexey Green MD Eosinophils/100 WBC (Bld) 7 % High 1-4 [facility] Comment on above: Performed By: #### U RNA, URTP, URCRE, UEOS #### [address] [address] [employer] Operator: Alexey Green MD Erythrocyte distribution width (RBC) [Ratio] 18.1 % High 11.8-14.4 [facility] Comment on above: Performed By: #### U RNA, URTP, URCRE, UEOS #### [address] [address] [employer]: Alexey Green MD Hematocrit (Bld) [Volume fraction] 25.1 % Low 36.3-47.1 [facility] Comment on above: Performed By: #### U RNA, URTP, URCRE, UEOS #### [address] [address] [employer]: Alexey Green MD Hemoglobin (Bld) [Mass/Vol] 7.2 g/dL Low 11.9-15.1 [facility] Comment on above: Performed By: #### U RNA, URTP, URCRE, UEOS #### [address] [address] [employer] Operator: Alexey Green MD Immature granulocytes/100 WBC (Bld) 1 % High 0 [facility] Comment on above: Performed By: #### U RNA, URTP, URCRE, UEOS #### [address] [address] [employer]: Alexey Green MD Lymphocytes (Bld) [#/Vol] 2.69 10*3/uL Normal 1.10-3.70 [facility] Comment on above: Performed By: #### U RNA, URTP, URCRE, UEOS #### [address] [address] [employer] Operator: Alexey Green MD Lymphocytes/100 WBC (Bld) 28 % Normal 24-43 [facility] Comment on above: Performed By: #### U RNA, URTP, URCRE, UEOS #### [place] [address] [employer]: Alexey Green MD MCH (RBC) [Entitic mass] 29.3 pg Normal 25.2-33.5 [facility] Comment on above: Performed By: #### U RNA, URTP, URCRE, UEOS #### [address] [address] [employer]: Alexey Green MD MCHC (RBC) [Mass/Vol] 28.7 g/dL Normal 28.4-34.8 [facility] Comment on above: Performed By: #### U RNA, URTP, URCRE, UEOS #### [place] [address] [employer] Operator: Alexey Green MD MCV (RBC) [Entitic vol] 102.0 fL Normal 82.6-102.9 [facility] Comment on above: Performed By: #### U RNA, URTP, URCRE, UEOS #### [place] [address] [employer] Operator: Alexey Green MD Monocytes (Bld) [#/Vol] 1.10 10*3/uL Normal 0.10-1.20 [facility] Comment on above: Performed By: #### U RNA, URTP, URCRE, UEOS #### [address] [address] [employer]: Alexey Green MD Monocytes/100 WBC (Bld) 11 % Normal 3-12 [facility] Comment on above: Performed By: #### U RNA, URTP, URCRE, UEOS #### [address] [address] [employer] Operator: Alexey Green MD Neutrophil (Seg) 53 % Normal 36-65 [facility] Comment on above: Performed By: #### U RNA, URTP, URCRE, UEOS #### [address] [address] [employer] Operator: Alexey Green MD NRBC Automated 0.0 per [address] [facility] Comment on above: Performed By: #### U RNA, URTP, URCRE, UEOS #### [address] [address] [employer] Operator: Alexey Green MD Platelet mean volume (Bld) [Entitic vol] 11.7 fL Normal 8.1-13.5 [facility] Comment on above: Performed By: #### U RNA, URTP, URCRE, UEOS #### [address] [address] [employer]: Alexey Green MD Platelets (Bld) [#/Vol] 161 10*3/uL Normal 138-453 [facility] Comment on above: Performed By: #### U RNA, URTP, URCRE, UEOS #### [address] [address] [employer]: Alexey Green MD RBC (Bld) [#/Vol] 2.46 10*6/uL Low 3.95-5.11 [facility] Comment on above: Performed By: #### U RNA, URTP, URCRE, UEOS #### [address] [address] [employer]: Alexey Green MD RBC morphology finding Nom (Bld) ANISOCYTOSIS PRESENT Normal [facility] Comment on above: Performed By: #### U RNA, URTP, URCRE, UEOS #### [address] [address] [employer]: Alexey Green MD WBC (Bld) [#/Vol] 9.6 10*3/uL Normal 3.5-11.3 [facility] Comment on above: Performed By: #### U RNA, URTP, URCRE, UEOS #### [address] [address] [employer]: Alexey Green MD Abs. Basophil 0.03 k/uL Normal 0.00-0.20 [facility] Comment on above: Performed By: #### C DP, BMP #### [place] [address] [employer]: Alexey Green MD Abs.Imm.Granulocyte 0.06 k/uL Normal 0.00-0.30 [facility] Comment on above: Performed By: #### C DP, BMP #### [address] [address] [employer]: Alexey Green MD Abs.Neutrophil (Seg) 5.08 k/uL Normal 1.50-8.10 [facility] Comment on above: Performed By: #### C DP, BMP #### [place] [address] [employer]: Alexey Green MD Basophils/100 WBC (Bld) 0 % Normal 0-2 [facility] Comment on above: Performed By: #### C DP, BMP #### [address] [address] [employer]: Alexey Green MD Eosinophils (Bld) [#/Vol] 0.65 10*3/uL High 0.00-0.44 [facility] Comment on above: Performed By: #### C DP, BMP #### [address] [address] [employer]: Alexey Green MD Eosinophils/100 WBC (Bld) 7 % High 1-4 [facility] Comment on above: Performed By: #### C DP, BMP #### [facility] [employer] [address] [place] [address] [employer]: Alexey Green MD Erythrocyte distribution width (RBC) [Ratio] 18.1 % High 11.8-14.4 [facility] Comment on above: Performed By: #### C DP, BMP #### [facility] [employer] [address] [place] [address] [employer]: Alexey Green MD Hematocrit (Bld) [Volume fraction] 25.1 % Low 36.3-47.1 [facility] Comment on above: Performed By: #### C DP, BMP #### [place] [address] [employer]: Alexey Green MD Hemoglobin (Bld) [Mass/Vol] 7.2 g/dL Low 11.9-15.1 [facility] Comment on above: Performed By: #### C DP, BMP #### [facility] [employer] [address] [place] [address] [employer]: Alexey Green MD Immature granulocytes/100 WBC (Bld) 1 % High 0 [facility] Comment on above: Performed By: #### C DP, BMP #### [facility] [employer] [address] [place] [address] [employer] Operator: Alexey Green MD Lymphocytes (Bld) [#/Vol] 2.69 10*3/uL Normal 1.10-3.70 [facility] Comment on above: Performed By: #### C DP, BMP #### [address] [address] [employer]: Alexey Green MD Lymphocytes/100 WBC (Bld) 28 % Normal 24-43 [facility] Comment on above: Performed By: #### C DP, BMP #### [address] [address] [employer]: Alexey Green MD MCH (RBC) [Entitic mass] 29.3 pg Normal 25.2-33.5 [facility] Comment on above: Performed By: #### C DP, BMP #### [address] [address] [employer]: Alexey Green MD MCHC (RBC) [Mass/Vol] 28.7 g/dL Normal 28.4-34.8 [facility] Comment on above: Performed By: #### C DP, BMP #### [address] [address] [employer]: Alexey Green MD MCV (RBC) [Entitic vol] 102.0 fL Normal 82.6-102.9 [facility] Comment on above: Performed By: #### C DP, BMP #### [address] [address] [employer]: Alexey Green MD Monocytes (Bld) [#/Vol] 1.10 10*3/uL Normal 0.10-1.20 [facility] Comment on above: Performed By: #### C DP, BMP #### [address] [address] [employer]: Alexey Green MD Monocytes/100 WBC (Bld) 11 % Normal 3-12 [facility] Comment on above: Performed By: #### C DP, BMP #### [address] [address] [employer]: Alexey Green MD Neutrophil (Seg) 53 % Normal 36-65 [facility] Comment on above: Performed By: #### C DP, BMP #### [address] [address] [employer]: Alexey Green MD NRBC Automated 0.0 per [address] [facility] Comment on above: Performed By: #### C DP, BMP #### [address] [address] [employer]: Alexey Green MD Platelet mean volume (Bld) [Entitic vol] 11.7 fL Normal 8.1-13.5 [facility] Comment on above: Performed By: #### C DP, BMP #### [address] [address] [employer]: Alexey Green MD Platelets (Bld) [#/Vol] 161 10*3/uL Normal 138-453 [facility] Comment on above: Performed By: #### C DP, BMP #### [address] [address] [employer]: Alexey Green MD RBC (Bld) [#/Vol] 2.46 10*6/uL Low 3.95-5.11 [facility] Comment on above: Performed By: #### C DP, BMP #### [address] [address] [employer]: Alexey Green MD RBC morphology finding Nom (Bld) ANISOCYTOSIS PRESENT Normal [facility] Comment on above: Performed By: #### C DP, BMP #### [address] [address] [employer]: Alexey Green MD WBC (Bld) [#/Vol] 9.6 10*3/uL Normal 3.5-11.3 [facility] Comment on above: Performed By: #### C DP, BMP #### [address] [address] [employer]: Alexey Green MD Basic Metabolic Profon 07-26 Anion gap [Moles/Vol] 9 mmol/L Normal 9-16 [facility] Comment on above: Performed By: #### U RNA, URTP, URCRE, UEOS #### [address] [address] [employer]: Alexey Green MD Calcium [Mass/Vol] 7.5 mg/dL Low 8.6-10.4 [facility] Comment on above: Performed By: #### U RNA, URTP, URCRE, UEOS #### [address] [address] [employer]: Alexey Green MD Chloride [Moles/Vol] 110 mmol/L High 98-107 [facility] Comment on above: Performed By: #### U RNA, URTP, URCRE, UEOS #### [address] [address] [employer]: Alexey Green MD CO2 [Moles/Vol] 17 mmol/L Low 20-31 [facility] Comment on above: Performed By: #### U RNA, URTP, URCRE, UEOS #### [address] [address] [employer]: Alexey Green MD Creatinine [Mass/Vol] 2.6 mg/dL High 0.50-0.90 [facility] Comment on above: Performed By: #### U RNA, URTP, URCRE, UEOS #### [facility] [employer] [address] [place] [address] [employer]: Alexey Green MD GFR/1.73 sq M.predicted among non-blacks MDRD (S/P/Bld) [Vol rate/Area] 17 mL/min/{1.73_m2} Low >60 [facility] Comment on above: Result Comment: These [...] #### U RNA, URTP, URCRE, UEOS #### [facility] [employer] [address] [place] [address] [employer]: Alexey Green MD Glucose [Mass/Vol] 90 mg/dL Normal 74-99 [facility] Comment on above: Performed By: #### U RNA, URTP, URCRE, UEOS #### [facility] [employer] [address] [place] [address] [employer]: Alexey Green MD Potassium [Moles/Vol] 4.3 mmol/L Normal 3.7-5.3 [facility] Comment on above: Performed By: #### U RNA, URTP, URCRE, UEOS #### [facility] [employer] [address] [place] [address] [employer]: Alexey Green MD Sodium [Moles/Vol] 136 mmol/L Normal 136-145 [facility] Comment on above: Performed By: #### U RNA, URTP, URCRE, UEOS #### [facility] [employer] [address] [place] [address] [employer] Operator: Alexey Green MD Urea nitrogen [Mass/Vol] 44 mg/dL High 8-23 [facility] Comment on above: Performed By: #### U RNA, URTP, URCRE, UEOS #### [facility] [employer] [address] [place] [address] [employer]: Alexey Green MD Anion gap [Moles/Vol] 9 mmol/L Normal 9-16 [facility] Comment on above: Performed By: #### U MICAO, UA #### [facility] [address] [place] [address] [employer]: Alexey Green MD Calcium [Mass/Vol] 7.5 mg/dL Low 8.6-10.4 [facility] Comment on above: Performed By: #### U MICAO, UA #### [facility] [employer] [address] [place] [address] [employer]: Alexey Green MD Chloride [Moles/Vol] 110 mmol/L High 98-107 [facility] Comment on above: Performed By: #### U KURTISO UA #### [facility] [employer] [address] [place] [address] [employer]: Alexey Green MD CO2 [Moles/Vol] 17 mmol/L Low 20-31 [facility] Comment on above: Performed By: #### U KURTISO UA #### [facility] [employer] [address] [place] [address] [employer]: Alexey Green MD Creatinine [Mass/Vol] 2.6 mg/dL High 0.50-0.90 [facility] Comment on above: Performed By: #### U KURTISO, UA #### [facility] [employer] [address] [place] [address] [employer]: Alexey Green MD GFR/1.73 sq M.predicted among non-blacks MDRD (S/P/Bld) [Vol rate/Area] 17 mL/min/{1.73_m2} Low >60 [facility] Comment on above: Result Comment: These [...] affects renal tubular secretion. Performed By: #### Tanja ADAMES UA #### [facility] [employer] [address] [place] [address] [employer]: Alexey Green MD Glucose [Mass/Vol] 90 mg/dL Normal 74-99 [facility] Comment on above: Performed By: #### U ZACARIAS UA #### [facility] [employer] [address] [place] [address] [employer]: Alexey Green MD Potassium [Moles/Vol] 4.3 mmol/L Normal 3.7-5.3 [facility] Comment on above: Performed By: #### Tanja ADAMES UA #### [address] [address] [employer]: Alexey Green MD Sodium [Moles/Vol] 136 mmol/L Normal 136-145 [facility] Comment on above: Performed By: #### Tanja ADAMES UA #### [facility] [employer] [address] [place] [address] [employer] Operator: Alexey Green MD Urea nitrogen [Mass/Vol] 44 mg/dL High 8-23 [facility] Comment on above: Performed By: #### Tanja ADAMES UA #### [facility] [employer] [address] [place] [address] [employer]: Alexey Green MD CBC with Diffon 07-27-2023 Abs. Basophil 0.00 k/uL Normal 0.00-0.20 [facility] Comment on above: Performed By: #### U RNA, URTP, URCRE, UEOS #### [facility] [employer] [address] [place] [address] [employer] Operator: Alexey Green MD Abs.Imm.Granulocyte 0.10 k/uL Normal 0.00-0.30 [facility] Comment on above: Performed By: #### U RNA, URTP, URCRE, UEOS #### [address] [address] [employer]: Alexey Green MD Abs.Neutrophil (Seg) 5.10 k/uL Normal 1.50-8.10 [facility] Comment on above: Performed By: #### U RNA, URTP, URCRE, UEOS #### [place] [address] [employer]: Alexey Green MD Basophils/100 WBC (Bld) 0 % Normal 0-2 [facility] Comment on above: Performed By: #### U RNA, URTP, URCRE, UEOS #### [place] [address] [employer] Operator: Alexey Green MD Eosinophils (Bld) [#/Vol] 0.70 10*3/uL High 0.00-0.44 [facility] Comment on above: Performed By: #### U RNA, URTP, URCRE, UEOS #### [place] [address] [employer]: Alexey Green MD Eosinophils/100 WBC (Bld) 7 % High 1-4 [facility] Comment on above: Performed By: #### U RNA, URTP, URCRE, UEOS #### [place] [address] [employer] Operator: Alexey Green MD Immature granulocytes/100 WBC (Bld) 1 % High 0 [facility] Comment on above: Performed By: #### U RNA, URTP, URCRE, UEOS #### [address] [address] [employer]: Alexey Green MD Lymphocytes (Bld) [#/Vol] 3.20 10*3/uL Normal 1.10-3.70 [facility] Comment on above: Performed By: #### U RNA, URTP, URCRE, UEOS #### [address] [address] [employer] Operator: Alexey Green MD Lymphocytes/100 WBC (Bld) 32 % Normal 24-43 [facility] Comment on above: Performed By: #### U RNA, URTP, URCRE, UEOS #### [address] [address] [employer] Operator: Alexey Green MD Monocytes (Bld) [#/Vol] 0.90 10*3/uL Normal 0.10-1.20 [facility] Comment on above: Performed By: #### U RNA, URTP, URCRE, UEOS #### [address] [address] [employer]: Alexey Green MD Monocytes/100 WBC (Bld) 9 % Normal 3-12 [facility] Comment on above: Performed By: #### U RNA, URTP, URCRE, UEOS #### [address] [address] [employer] Operator: Alexey Green MD Morphology Tito (Bld) [Interp] ANISOCYTOSIS PRESENT Normal [facility] Comment on above: Result Comment: MACR OCYTOSIS PRESENT Performed By: #### U RNA, URTP, URCRE, UEOS #### [address] [address] [employer] Operator: Alexey Green MD Neutrophil (Seg) 51 % Normal 36-65 [facility] Comment on above: Performed By: #### U RNA, URTP, URCRE, UEOS #### [address] [address] [employer] Operator: Alexey Green MD Erythrocyte distribution width (RBC) [Ratio] 18.8 % High 11.8-14.4 [facility] Comment on above: Performed By: #### U RNA, URTP, URCRE, UEOS #### [address] [address] [employer]: Alexey Green MD Hematocrit (Bld) [Volume fraction] 28.5 % Low 36.3-47.1 [facility] Comment on above: Performed By: #### U RNA, URTP, URCRE, UEOS #### [place] [address] [employer]: Alexey Green MD Hemoglobin (Bld) [Mass/Vol] 7.7 g/dL Low 11.9-15.1 [facility] Comment on above: Performed By: #### U RNA, URTP, URCRE, UEOS #### [address] [address] [employer]: Alexey Green MD MCH (RBC) [Entitic mass] 29.5 pg Normal 25.2-33.5 [facility] Comment on above: Performed By: #### U RNA, URTP, URCRE, UEOS #### [place] [address] [employer]: Alexey Green MD MCHC (RBC) [Mass/Vol] 27.0 g/dL Low 28.4-34.8 [facility] Comment on above: Performed By: #### U RNA, URTP, URCRE, UEOS #### [address] [address] [employer]: Alexey Green MD MCV (RBC) [Entitic vol] 109.2 fL High 82.6-102.9 [facility] Comment on above: Performed By: #### U RNA, URTP, URCRE, UEOS #### [address] [address] [employer]: Alexey Green MD NRBC Automated 0.2 per [address] [facility] Comment on above: Performed By: #### U RNA, URTP, URCRE, UEOS #### [place] [address] [employer]: Alexey Green MD Platelet mean volume (Bld) [Entitic vol] 11.4 fL Normal 8.1-13.5 [facility] Comment on above: Performed By: #### U RNA, URTP, URCRE, UEOS #### [address] [address] [employer]: Alexey Green MD Platelets (Bld) [#/Vol] 135 10*3/uL Low 138-453 [facility] Comment on above: Performed By: #### U RNA, URTP, URCRE, UEOS #### [place] [address] [employer]: Alexey Green MD RBC (Bld) [#/Vol] 2.61 10*6/uL Low 3.95-5.11 [facility] Comment on above: Performed By: #### U RNA, URTP, URCRE, UEOS #### [place] [address] [employer] Operator: Alexey Grene MD WBC (Bld) [#/Vol] 10.0 10*3/uL Normal 3.5-11.3 [facility] Comment on above: Performed By: #### U RNA, URTP, URCRE, UEOS #### [address] [address] [employer]: Alexey Green MD Abs. Basophil 0.00 k/uL Normal 0.00-0.20 [facility] Comment on above: Performed By: #### C DP, BMP #### [place] [address] [employer]: Alexey Green MD Abs.Imm.Granulocyte 0.10 k/uL Normal 0.00-0.30 [facility] Comment on above: Performed By: #### C DP, BMP #### [place] [address] [employer] Operator: Aelxey Green MD Abs.Neutrophil (Seg) 5.10 k/uL Normal 1.50-8.10 [facility] Comment on above: Performed By: #### C DP, BMP #### [place] [address] [employer] Operator: Alexey Green MD Basophils/100 WBC (Bld) 0 % Normal 0-2 [facility] Comment on above: Performed By: #### C DP, BMP #### [place] [address] [employer] Operator: Alexey Green MD Eosinophils (Bld) [#/Vol] 0.70 10*3/uL High 0.00-0.44 [facility] Comment on above: Performed By: #### C DP, BMP #### [place] [address] [employer] Operator: Alexey Green MD Eosinophils/100 WBC (Bld) 7 % High 1-4 [facility] Comment on above: Performed By: #### C DP, BMP #### [place] [address] [employer] Operator: Alexey Green MD Immature granulocytes/100 WBC (Bld) 1 % High 0 [facility] Comment on above: Performed By: #### C DP, BMP #### [address] [address] [employer] Operator: Alexey Green MD Lymphocytes (Bld) [#/Vol] 3.20 10*3/uL Normal 1.10-3.70 [facility] Comment on above: Performed By: #### C DP, BMP #### [address] [address] [employer] Operator: Alexey Green MD Lymphocytes/100 WBC (Bld) 32 % Normal 24-43 [facility] Comment on above: Performed By: #### C DP, BMP #### [address] [address] [employer] Operator: Alexey Green MD Monocytes (Bld) [#/Vol] 0.90 10*3/uL Normal 0.10-1.20 [facility] Comment on above: Performed By: #### C DP, BMP #### [address] [address] [employer] Operator: Alexey Green MD Monocytes/100 WBC (Bld) 9 % Normal 3-12 [facility] Comment on above: Performed By: #### C DP, BMP #### [address] [address] [employer] Operator: Alexey Green MD Morphology Tito (Bld) [Interp] ANISOCYTOSIS PRESENT Normal [facility] Comment on above: Result Comment: MACR OCYTOSIS PRESENT Performed By: #### C DP, BMP #### [address] [address] [employer] Operator: Alexey Green MD Neutrophil (Seg) 51 % Normal 36-65 [facility] Comment on above: Performed By: #### C DP, BMP #### [address] [address] [employer] Operator: Alexey Green MD Erythrocyte distribution width (RBC) [Ratio] 18.8 % High 11.8-14.4 [facility] Comment on above: Performed By: #### C DP, BMP #### [address] [address] [employer] Operator: Alexey Green MD Hematocrit (Bld) [Volume fraction] 28.5 % Low 36.3-47.1 [facility] Comment on above: Performed By: #### C DP, BMP #### [address] [address] [employer] Operator: Alexey Green MD Hemoglobin (Bld) [Mass/Vol] 7.7 g/dL Low 11.9-15.1 [facility] Comment on above: Performed By: #### C DP, BMP #### [address] [address] [employer] Operator: Alexey Green MD MCH (RBC) [Entitic mass] 29.5 pg Normal 25.2-33.5 [facility] Comment on above: Performed By: #### C DP, BMP #### [address] [address] [employer] Operator: Alexey Green MD MCHC (RBC) [Mass/Vol] 27.0 g/dL Low 28.4-34.8 [facility] Comment on above: Performed By: #### C DP, BMP #### [address] [address] [employer] Operator: Alexey Green MD MCV (RBC) [Entitic vol] 109.2 fL High 82.6-102.9 [facility] Comment on above: Performed By: #### C DP, BMP #### [facility] [employer] [address] [place] [address] [employer] Operator: Alexey Green MD NRBC Automated 0.2 per [address] [facility] Comment on above: Performed By: #### C DP, BMP #### [address] [address] [employer] Operator: Alexey Green MD Platelet mean volume (Bld) [Entitic vol] 11.4 fL Normal 8.1-13.5 [facility] Comment on above: Performed By: #### C DP, BMP #### [address] [address] [employer] Operator: Alexey Green MD Platelets (Bld) [#/Vol] 135 10*3/uL Low 138-453 [facility] Comment on above: Performed By: #### C DP, BMP #### [address] [address] [employer] Operator: Alexey Green MD RBC (Bld) [#/Vol] 2.61 10*6/uL Low 3.95-5.11 [facility] Comment on above: Performed By: #### C DP, BMP #### [address] [address] [employer] Operator: Alexey Green MD WBC (Bld) [#/Vol] 10.0 10*3/uL Normal 3.5-11.3 [facility] Comment on above: Performed By: #### C DP, BMP #### [address] [address] [employer] Operator: Alexey Green MD Phosphorus, Inorg.on 024 Phosphorus, Inorg. 4.4 mg/dL Normal 2.5-4.5 [facility] Comment on above: Performed By: #### U RNA, URTP, URCRE, UEOS #### [facility] [employer] [address] [place] [address] [employer] Operator: Alexey Green MD Phosphorus, Inorg. 4.4 mg/dL Normal 2.5-4.5 [facility] Comment on above: Performed By: #### U MICAO, UA #### [address] [address] [employer] Operator: Alexey Green MD Prot. Electroph, Blon 2023 Pathologist Review: ELECTRONICALLY ANNA CARRILLO M.D. Normal [facility] Comment on above: Performed By: #### U RNA, URTP, URCRE, UEOS #### [address] [address] [employer]: Alexey Green MD Albumin [Mass/Vol] 3.1 g/dL Low 3.2-5.2 [facility] Comment on above: Performed By: #### U RNA, URTP, URCRE, UEOS #### [address] [address] [employer] Operator: Alexey Green MD Albumin, % 55 % Normal 45-65 [facility] Comment on above: Performed By: #### U RNA, URTP, URCRE, UEOS #### [address] [address] [employer] Operator: Alexey Green MD [id number] 0.3 g/dL Normal 0.1-0.4 [facility] Comment on above: Performed By: #### U RNA, URTP, URCRE, UEOS #### [address] [address] [employer] Operator: Alexey Green MD Irinh-0-eufcnavel,% 4 % Normal 3-6 [facility] Comment on above: Performed By: #### U RNA, URTP, URCRE, UEOS #### [address] [address] [employer] Operator: Alexey Green MD [id number] 0.8 g/dL Normal 0.5-0.9 [facility] Comment on above: Performed By: #### U RNA, URTP, URCRE, UEOS #### [address] [address] [employer] Operator: Alexey Green MD [id number],% 15 % High 6-13 [facility] Comment on above: Performed By: #### U RNA, URTP, URCRE, UEOS #### [facility] [employer] [address] [place] [address] [employer] Operator: Alexey Green MD Beta-globulins 0.8 g/dL Normal 0.5-1.1 [facility] Comment on above: Performed By: #### U RNA, URTP, URCRE, UEOS #### [address] [address] [employer] Operator: Alexey Green MD Beta-globulins,% 14 % Normal 11-19 [facility] Comment on above: Performed By: #### U RNA, URTP, URCRE, UEOS #### [address] [address] [employer] Operator: Alexey Green MD Gamma-globulins 0.7 g/dL Normal 0.5-1.5 [facility] Comment on above: Performed By: #### U RNA, URTP, URCRE, UEOS #### [facility] [employer] [address] [place] [address] [employer] Operator: Alexey Green MD Gamma-globulins,% 13 % Normal 9-20 [facility] Comment on above: Performed By: #### U RNA, URTP, URCRE, UEOS #### [facility] [employer] [address] [place] [address] [employer] Operator: Alexey Green MD Prot. Elect-Interp Albumin is decreased . May be observed with hepatic diseases, proteinuria, Normal [facility] Comment on above: Result Comment: maln utrition, acute phase response, and hemodilution. Performed By: #### U RNA, URTP, URCRE, UEOS #### [address] [address] [employer]: Alexey Green MD Total Prot. Sum 5.7 g/dL Low 6.3-8.2 [facility] Comment on above: Performed By: #### U RNA, URTP, URCRE, UEOS #### [address] [address] [employer] Operator: Alexey Green MD Total Prot. Sum,% 101 % Normal 98-102 [facility] Comment on above: Performed By: #### U RNA, URTP, URCRE, UEOS #### [address] [address] [employer] Operator: Alexey Green MD Pathologist Review: ELECTRONICALLY ANNA CARRILLO M.D. Normal [facility] Comment on above: Performed By: #### U MICAO, UA #### [facility] [address] [place] [address] [employer] Operator: Alexey Green MD Albumin [Mass/Vol] 3.1 g/dL Low 3.2-5.2 [facility] Comment on above: Performed By: #### U MICAO, UA #### [facility] [address] [place] [address] [employer] Operator: Alexey Green MD Albumin, % 55 % Normal 45-65 [facility] Comment on above: Performed By: #### U MICAO, UA #### [facility] [address] [place] [address] [employer] Operator: Aleexy Green MD [id number] 0.3 g/dL Normal 0.1-0.4 [facility] Comment on above: Performed By: #### U ZACARIAS UA #### [facility] [place] [address] [employer] Operator: Alexey Green MD [id number],% 4 % Normal 3-6 [facility] Comment on above: Performed By: #### U ZACARIAS, UA #### [facility] [address] [place] [address] [employer] Operator: Alexey Green MD [id number]-[id number] 0.8 g/dL Normal 0.5-0.9 [facility] Comment on above: Performed By: #### U ZACARIAS UA #### [facility] [address] [place] [address] [employer] Operator: Alexey Green MD [id number],% 15 % High 6-13 [facility] Comment on above: Performed By: #### U ZACARIAS UA #### [facility] [address] [place] [address] [employer] Operator: Alexey Green MD Beta-globulins 0.8 g/dL Normal 0.5-1.1 [facility] Comment on above: Performed By: #### U ZACARIAS UA #### [facility] [address] [place] [address] [employer] Operator: Alexey Green MD Beta-globulins,% 14 % Normal 11-19 [facility] Comment on above: Performed By: #### U ZACARIAS, UA #### [facility] [address] [place] [address] [employer] Operator: Alexey Green MD Gamma-globulins 0.7 g/dL Normal 0.5-1.5 [facility] Comment on above: Performed By: #### U ZACARIAS UA #### [facility] [address] [place] [address] [employer] Operator: Alexey Green MD Gamma-globulins,% 13 % Normal 9-20 [facility] Comment on above: Performed By: #### U MICAO, UA #### [facility] [address] [place] [address] [employer] Operator: Alexey Green MD Prot. Elect-Interp Albumin is decreased . May be observed with hepatic diseases, proteinuria, Normal [facility] Comment on above: Result Comment: maln utrition, acute phase response, and hemodilution. Performed By: #### U ZACARIAS UA #### [facility] [place] [address] [employer] Operator: Alexey Green MD Total Prot. Sum 5.7 g/dL Low 6.3-8.2 [facility] Comment on above: Performed By: #### U ZACARIAS, UA #### [facility] [address] [place] [address] [employer] Operator: Alexey Green MD Total Prot. Sum,% 101 % Normal 98-102 [facility] Comment on above: Performed By: #### U MICAO, UA #### [address] [place] [address] [employer] Operator: Alexey Green MD US RENAL COMPLETEon 07-27-19 [...] Edmundo Morton MD 07/26/[address] [facility] Basic Metabolic Profon 07-25 Anion gap [Moles/Vol] 9 mmol/L Normal 9-16 [facility] Comment on above: Performed By: #### U RNA, URTP, URCRE, UEOS #### [facility] [address] [place] [address] [employer] Operator: Alexey Green MD Calcium [Mass/Vol] 7.7 mg/dL Low 8.6-10.4 [facility] Comment on above: Performed By: #### U RNA, URTP, URCRE, UEOS #### [facility] [address] [place] [address] [employer] Operator: Alexey Green MD Chloride [Moles/Vol] 108 mmol/L High 98-107 [facility] Comment on above: Performed By: #### U RNA, URTP, URCRE, UEOS #### [facility] [address] [place] [address] [employer] Operator: Alexey Green MD CO2 [Moles/Vol] 20 mmol/L Normal 20-31 [facility] Comment on above: Performed By: #### U RNA, URTP, URCRE, UEOS #### [facility] [address] [place] [address] [employer] Operator: Alexey Green MD Creatinine [Mass/Vol] 2.7 mg/dL High 0.50-0.90 [facility] Comment on above: Performed By: #### U RNA, URTP, URCRE, UEOS #### [facility] [address] [place] [address] [employer] Operator: Alexey Green MD GFR/1.73 sq M.predicted among non-blacks MDRD (S/P/Bld) [Vol rate/Area] 17 mL/min/{1.73_m2} Low >60 [facility] Comment on above: Result Comment: These [...] #### U RNA, URTP, URCRE, UEOS #### [facility] [address] [place] [address] [employer] Operator: Alexey Green MD Glucose [Mass/Vol] 132 mg/dL High 74-99 [facility] Comment on above: Performed By: #### U RNA, URTP, URCRE, UEOS #### [facility] [address] [place] [address] [employer] Operator: Alexey Green MD Potassium [Moles/Vol] 4.9 mmol/L Normal 3.7-5.3 [facility] Comment on above: Performed By: #### U RNA, URTP, URCRE, UEOS #### [facility] [address] [place] [address] [employer] Operator: Alexey Green MD Sodium [Moles/Vol] 137 mmol/L Normal 136-145 [facility] Comment on above: Performed By: #### U RNA, URTP, URCRE, UEOS #### [facility] [address] [place] [address] [employer] Operator: Alexey Green MD Urea nitrogen [Mass/Vol] 43 mg/dL High 8-23 [facility] Comment on above: Performed By: #### U RNA, URTP, URCRE, UEOS #### [facility] [address] [place] [address] [employer] Operator: Alexey Green MD Anion gap [Moles/Vol] 9 mmol/L Normal 9-16 [facility] Comment on above: Performed By: #### U MICAO, UA #### [facility] [address] [place] [address] [employer] Operator: Alexey Green MD Calcium [Mass/Vol] 7.7 mg/dL Low 8.6-10.4 [facility] Comment on above: Performed By: #### U MICAO, UA #### [facility] [address] [place] [address] [employer] Operator: Alexey Green MD Chloride [Moles/Vol] 108 mmol/L High 98-107 [facility] Comment on above: Performed By: #### U MICAO, UA #### [facility] [address] [place] [address] [employer] Operator: Alexey Green MD CO2 [Moles/Vol] 20 mmol/L Normal 20-31 [facility] Comment on above: Performed By: #### U MICAO, UA #### [facility] [address] [place] [address] [employer] Operator: Alexey Green MD Creatinine [Mass/Vol] 2.7 mg/dL High 0.50-0.90 [facility] Comment on above: Performed By: #### U MICAO, UA #### [address] [address] [employer] Operator: Alexey Green MD GFR/1.73 sq M.predicted among non-blacks MDRD (S/P/Bld) [Vol rate/Area] 17 mL/min/{1.73_m2} Low >60 [facility] Comment on above: Result Comment: These [...] renal tubular secretion. Performed By: #### U ZACARIAS UA #### [facility] [address] [place] [address] [employer] Operator: Alexey Green MD Glucose [Mass/Vol] 132 mg/dL High 74-99 [facility] Comment on above: Performed By: #### U KURTISO UA #### [facility] [address] [place] [address] [employer] Operator: Alexey Green MD Potassium [Moles/Vol] 4.9 mmol/L Normal 3.7-5.3 [facility] Comment on above: Performed By: #### U ZACARIAS UA #### [facility] [address] [place] [address] [employer] Operator: Alexey Green MD Sodium [Moles/Vol] 137 mmol/L Normal 136-145 [facility] Comment on above: Performed By: #### U ZACARIAS UA #### [facility] [address] [place] [address] [employer] Operator: Alexey Green MD Urea nitrogen [Mass/Vol] 43 mg/dL High 8-23 [facility] Comment on above: Performed By: #### U ZACARIAS UA #### [facility] [address] [place] [address] [employer] Operator: Alexey Green MD C3on 07-26-2023 C3 120 mg/dL Normal 90-180 [facility] Comment on above: Performed By: #### U RNA, URTP, URCRE, UEOS #### [facility] [address] [place] [address] [employer] Operator: Alexey Green MD C3 120 mg/dL Normal 90-180 [facility] Comment on above: Performed By: #### U ZACARIAS UA #### [address] [address] [employer] Operator: Alexey Green MD C4on 07-26-2023 C4 27 mg/dL Normal 10-40 [facility] Comment on above: Performed By: #### U RNA, URTP, URCRE, UEOS #### [address] [address] [employer] Operator: Alexey Green MD C4 27 mg/dL Normal 10-40 [facility] Comment on above: Performed By: #### Tanja ADAMES UA #### [address] [address] [employer] Operator: Alexey Green MD CBC with Diffon 07-26-2023 Abs. Basophil 0.04 k/uL Normal 0.00-0.20 [facility] Comment on above: Performed By: #### U RNA, URTP, URCRE, UEOS #### [address] [address] [employer] Operator: Alexey Green MD Abs.Imm.Granulocyte 0.07 k/uL Normal 0.00-0.30 [facility] Comment on above: Performed By: #### U RNA, URTP, URCRE, UEOS #### [address] [address] [employer] Operator: Alexey Green MD Abs.Neutrophil (Seg) 7.93 k/uL Normal 1.50-8.10 [facility] Comment on above: Performed By: #### U RNA, URTP, URCRE, UEOS #### [address] [address] [employer] Operator: Alexey Green MD Basophils/100 WBC (Bld) 0 % Normal 0-2 [facility] Comment on above: Performed By: #### U RNA, URTP, URCRE, UEOS #### [address] [address] [employer] Operator: Alexey Green MD Eosinophils (Bld) [#/Vol] 0.79 10*3/uL High 0.00-0.44 [facility] Comment on above: Performed By: #### U RNA, URTP, URCRE, UEOS #### [address] [address] [employer] Operator: Alexey Green MD Eosinophils/100 WBC (Bld) 6 % High 1-4 [facility] Comment on above: Performed By: #### U RNA, URTP, URCRE, UEOS #### [address] [address] [employer] Operator: Alexey Green MD Erythrocyte distribution width (RBC) [Ratio] 19.9 % High 11.8-14.4 [facility] Comment on above: Performed By: #### U RNA, URTP, URCRE, UEOS #### [address] [address] [employer] Operator: Alexey Green MD Hematocrit (Bld) [Volume fraction] 29.3 % Low 36.3-47.1 [facility] Comment on above: Performed By: #### U RNA, URTP, URCRE, UEOS #### [address] [address] [employer] Operator: Alexey Green MD Hemoglobin (Bld) [Mass/Vol] 8.8 g/dL Low 11.9-15.1 [facility] Comment on above: Performed By: #### U RNA, URTP, URCRE, UEOS #### [address] [address] [employer] Operator: Alexey Green MD Immature granulocytes/100 WBC (Bld) 1 % High 0 [facility] Comment on above: Performed By: #### U RNA, URTP, URCRE, UEOS #### [address] [address] [employer] Operator: Alexey Green MD Lymphocytes (Bld) [#/Vol] 3.17 10*3/uL Normal 1.10-3.70 [facility] Comment on above: Performed By: #### U RNA, URTP, URCRE, UEOS #### [address] [address] [employer] Operator: Alexey Green MD Lymphocytes/100 WBC (Bld) 24 % Normal 24-43 [facility] Comment on above: Performed By: #### U RNA, URTP, URCRE, UEOS #### [address] [address] [employer] Operator: Alexey Green MD MCH (RBC) [Entitic mass] 29.6 pg Normal 25.2-33.5 [facility] Comment on above: Performed By: #### U RNA, URTP, URCRE, UEOS #### [address] [address] [employer] Operator: Alexey Green MD MCHC (RBC) [Mass/Vol] 30.0 g/dL Normal 28.4-34.8 [facility] Comment on above: Performed By: #### U RNA, URTP, URCRE, UEOS #### [address] [address] [employer] Operator: Alexey Green MD MCV (RBC) [Entitic vol] 98.7 fL Normal 82.6-102.9 [facility] Comment on above: Performed By: #### U RNA, URTP, URCRE, UEOS #### [address] [address] [employer] Operator: Alexey Green MD Monocytes (Bld) [#/Vol] 1.13 10*3/uL Normal 0.10-1.20 [facility] Comment on above: Performed By: #### U RNA, URTP, URCRE, UEOS #### [address] [address] [employer] Operator: Alexey Green MD Monocytes/100 WBC (Bld) 9 % Normal 3-12 [facility] Comment on above: Performed By: #### U RNA, URTP, URCRE, UEOS #### [address] [address] [employer] Operator: Alexey Green MD Neutrophil (Seg) 61 % Normal 36-65 [facility] Comment on above: Performed By: #### U RNA, URTP, URCRE, UEOS #### [address] [address] [employer] Operator: Alexey Green MD NRBC Automated 0.2 per [address] [facility] Comment on above: Performed By: #### U RNA, URTP, URCRE, UEOS #### [address] [address] [employer] Operator: Alexey Green MD Platelet Count See Reflexed IPF Result Normal 138-453 [facility] Comment on above: Performed By: #### U RNA, URTP, URCRE, UEOS #### [address] [address] [employer] Operator: Alexey Green MD Platelet, Fluoresc. 133 k/uL Low 138-453 [facility] Comment on above: Performed By: #### U RNA, URTP, URCRE, UEOS #### [address] [address] [employer] Operator: Alexey Green MD PLT, Immature Fract. 6.0 % Normal 1.1-10.3 [facility] Comment on above: Performed By: #### U RNA, URTP, URCRE, UEOS #### [address] [address] [employer] Operator: Alexey Green MD RBC (Bld) [#/Vol] 2.97 10*6/uL Low 3.95-5.11 [facility] Comment on above: Performed By: #### U RNA, URTP, URCRE, UEOS #### [address] [address] [employer] Operator: Alexey Green MD RBC morphology finding Nom (Bld) ANISOCYTOSIS PRESENT Normal [facility] Comment on above: Performed By: #### U RNA, URTP, URCRE, UEOS #### [address] [address] [employer] Operator: Alexey Green MD WBC (Bld) [#/Vol] 13.1 10*3/uL High 3.5-11.3 [facility] Comment on above: Performed By: #### U RNA, URTP, URCRE, UEOS #### [address] [address] [employer] Operator: Alexey Green MD Abs. Basophil 0.04 k/uL Normal 0.00-0.20 [facility] Comment on above: Performed By: #### U MICAO, UA #### [facility] [address] [place] [address] [employer] Operator: Alexey Green MD Abs.Imm.Granulocyte 0.07 k/uL Normal 0.00-0.30 [facility] Comment on above: Performed By: #### U MICAO, UA #### [facility] [address] [place] [address] [employer] Operator: Alexey Green MD Abs.Neutrophil (Seg) 7.93 k/uL Normal 1.50-8.10 [facility] Comment on above: Performed By: #### Tanja ADAMES UA #### [facility] [address] [place] [address] [employer] Operator: Alexey Green MD Basophils/100 WBC (Bld) 0 % Normal 0-2 [facility] Comment on above: Performed By: #### Tanja ADAMES UA #### [facility] [address] [place] [address] [employer] Operator: Alexey Green MD Eosinophils (Bld) [#/Vol] 0.79 10*3/uL High 0.00-0.44 [facility] Comment on above: Performed By: #### Tanja ADAMES UA #### [address] [address] [employer] Operator: Alexey Green MD Eosinophils/100 WBC (Bld) 6 % High 1-4 [facility] Comment on above: Performed By: #### ALYSSA SILVER #### [address] [address] [employer] Operator: Alexey Green MD Erythrocyte distribution width (RBC) [Ratio] 19.9 % High 11.8-14.4 [facility] Comment on above: Performed By: #### Tanja ADAMES UA #### [address] [address] [employer] Operator: Alexey Green MD Hematocrit (Bld) [Volume fraction] 29.3 % Low 36.3-47.1 [facility] Comment on above: Performed By: #### Tanja ADAMES UA #### [facility] [address] [place] [address] [employer] Operator: Alexey Green MD Hemoglobin (Bld) [Mass/Vol] 8.8 g/dL Low 11.9-15.1 [facility] Comment on above: Performed By: #### U ZACARIAS UA #### [address] [address] [employer] Operator: Alexey Green MD Immature granulocytes/100 WBC (Bld) 1 % High 0 [facility] Comment on above: Performed By: #### U ZACARIAS UA #### [address] [address] [employer] Operator: Alexey Green MD Lymphocytes (Bld) [#/Vol] 3.17 10*3/uL Normal 1.10-3.70 [facility] Comment on above: Performed By: #### Tanja ADAMES UA #### [address] [address] [employer] Operator: Alexey Green MD Lymphocytes/100 WBC (Bld) 24 % Normal 24-43 [facility] Comment on above: Performed By: #### U ZACARIAS UA #### [address] [address] [employer] Operator: Alexey Green MD MCH (RBC) [Entitic mass] 29.6 pg Normal 25.2-33.5 [facility] Comment on above: Performed By: #### Tanja ADAMES UA #### [address] [address] [employer] Operator: Alexey Green MD MCHC (RBC) [Mass/Vol] 30.0 g/dL Normal 28.4-34.8 [facility] Comment on above: Performed By: #### U ZACARIAS UA #### [address] [address] [employer] Operator: Alexey Green MD MCV (RBC) [Entitic vol] 98.7 fL Normal 82.6-102.9 [facility] Comment on above: Performed By: #### U ZACARIAS UA #### [address] [address] [employer] Operator: Alexey Green MD Monocytes (Bld) [#/Vol] 1.13 10*3/uL Normal 0.10-1.20 [facility] Comment on above: Performed By: #### U KURTISO, UA #### [address] [address] [employer] Operator: Alexey Green MD Monocytes/100 WBC (Bld) 9 % Normal 3-12 [facility] Comment on above: Performed By: #### U MICAO, UA #### [address] [address] [employer] Operator: Alexey Green MD Neutrophil (Seg) 61 % Normal 36-65 [facility] Comment on above: Performed By: #### U ZACARIAS, UA #### [address] [address] [employer] Operator: Alexey Green MD NRBC Automated 0.2 per [address] [facility] Comment on above: Performed By: #### U KURTISO, UA #### [address] [address] [employer] Operator: Alexey Green MD Platelet Count See Reflexed IPF Result Normal 138-453 [facility] Comment on above: Performed By: #### U MICAO, UA #### [address] [address] [employer] Operator: Alexey Green MD Platelet, Fluoresc. 133 k/uL Low 138-453 [facility] Comment on above: Performed By: #### U MICAO, UA #### [facility] [address] [place] [address] [employer] Operator: Alexey Green MD PLT, Immature Fract. 6.0 % Normal 1.1-10.3 [facility] Comment on above: Performed By: #### U MICAO, UA #### [address] [address] [employer] Operator: Alexey Green MD RBC (Bld) [#/Vol] 2.97 10*6/uL Low 3.95-5.11 [facility] Comment on above: Performed By: #### U MICAO, UA #### [facility] [address] [place] [address] [employer] Operator: Alexey Green MD RBC morphology finding Nom (Bld) ANISOCYTOSIS PRESENT Normal [facility] Comment on above: Performed By: #### U KURTISO, UA #### [facility] [address] [place] [address] [employer] Operator: Alexey Green MD WBC (Bld) [#/Vol] 13.1 10*3/uL High 3.5-11.3 [facility] Comment on above: Performed By: #### U KURTISO, UA #### [address] [address] [employer] Operator: Alexey Green MD Creatinine,Random Uron 07-25 Creatinine [Mass/Vol] 63.2 mg/dL Normal 28.0-217.0 [facility] Comment on above: Performed By: #### U RNA, URTP, URCRE, UEOS #### [address] [address] [employer] Operator: Alexey Green MD Creatinine [Mass/Vol] 63.2 mg/dL Normal 28.0-217.0 [facility] Comment on above: Performed By: #### C DP, BMP #### [address] [address] [employer] Operator: Alexey Green MD Eosinophils, Urineon 024 Eosinophils, Urine NONE SEEN Normal NSN [facility] Comment on above: Performed By: #### U RNA, URTP, URCRE, UEOS #### [place] [address] [employer] Operator: Alexey Green MD Eosinophils, Urine NONE SEEN Normal [facility] Comment on above: Performed By: #### C DP, BMP #### [address] [address] [employer] Operator: Alexey Green MD Free Basile + Lambdaon 2023 Free Basile Lt Chains 95.5 mg/L High <20.8 [facility] Comment on above: Result Comment: Perf ormed using Diazyme reagent on [employer]. Results obtained with different assay methods cannot be used interchangeably. Performed By: #### U RNA, URTP, URCRE, UEOS #### [place] [address] [employer] Operator: Alexey Green MD Free Basile/Lambda Rat 1.29 Normal 0.22-1.74 [facility] Comment on above: Performed By: #### U RNA, URTP, URCRE, UEOS #### [address] [address] [employer] Operator: Alexey Green MD Free Lambda Lt Chains 74.1 mg/L High 4.2-27.7 [facility] Comment on above: Result Comment: Perf ormed using Diazyme reagent on [employer]. Results obtained with different assay methods cannot be used interchangeably. Performed By: #### U RNA, URTP, URCRE, UEOS #### [address] [id number] [employer] Operator: Alexey Green MD Free Basile Lt Chains 95.5 mg/L High <20.8 [facility] Comment on above: Result Comment: Perf ormed using Diazyme reagent on [employer]. Results obtained with different assay methods cannot be used interchangeably. Performed By: #### U ZACARIAS, UA #### [address] [address] [employer] Operator: Alexey Green MD Free Basile/Lambda Rat 1.29 Normal 0.22-1.74 [facility] Comment on above: Performed By: #### U ZACARIAS, UA #### [address] [address] [employer] Operator: Alexey Green MD Free Lambda Lt Chains 74.1 mg/L High 4.2-27.7 [facility] Comment on above: Result Comment: Perf ormed using Diazyme reagent on [employer]. Results obtained with different assay methods cannot be used interchangeably. Performed By: #### Tanja ADAMES UA #### [address] [address] [employer] Operator: lAexey Green MD Prot. Electroph, Blon 2023 Protein [Mass/Vol] 5.7 g/dL Low 6.6-8.7 [facility] Comment on above: Performed By: #### U RNA, URTP, URCRE, UEOS #### [address] [address] [employer] Operator: Alexey Green MD Protein [Mass/Vol] 5.7 g/dL Low 6.6-8.7 [facility] Comment on above: Performed By: #### U ZACARIAS, UA #### [address] [address] [employer] Operator: Alexey Green MD Protein,Tot,Sequim Uron 2023 Tot Prot. Conc. 29 mg/dL Normal [facility] Comment on above: Result Comment: No n ormal range established. Performed By: #### U RNA, URTP, URCRE, UEOS #### [address] [phone] [employer] Operator: Alexey Green MD Tot Prot. Conc. 29 mg/dL Normal [facility] Comment on above: Result Comment: No n ormal range established. Performed By: #### C DP, BMP #### [employer] [address] [place] [address] [phone] [employer] Operator: Alexey Green MD Sodium, Random Uron 07-26-19 Sodium (U) [Moles/Vol] 32 mmol/L Normal [facility] Comment on above: Result Comment: No n ormal range established. Performed By: #### U RNA, URTP, URCRE, UEOS #### [facility] [employer] [address] [place] [address] [phone] [employer] Operator: Alexey Green MD Sodium (U) [Moles/Vol] 32 mmol/L Normal [facility] Comment on above: Result Comment: No n ormal range established. Performed By: #### C DP, BMP #### [facility] [address] [place] [phone] [employer] Operator: Alexey Green MD US RENAL COMPLETEon 07-26-19 [...] Edmundo Morton MD 07/26/[address] [facility] XR CHEST PORTABLEon 07-26-19 XR CHEST [...] Iam Mcknight MD 07/26/[address] [facility] XR CHEST PORTABLE EXAMINATION: ONE XRAY [...] Iam Mcknight MD 07/26/[address] [facility] Basic Metab w/rfx MGon 07-24 Anion gap [Moles/Vol] 11 mmol/L Normal 9-16 [facility] Comment on above: Performed By: #### B MPX #### [employer] [address] [place] [address] [phone] [employer] Operator: Alexey Green MD Calcium [Mass/Vol] 7.7 mg/dL Low 8.6-10.4 [facility] Comment on above: Performed By: #### B MPX #### [facility] [address] [place] [address] [phone] [employer] Operator: Alexey Green MD Chloride [Moles/Vol] 107 mmol/L Normal 98-107 [facility] Comment on above: Performed By: #### B MPX #### [facility] [place] [address] [employer] Operator: Alexey Green MD CO2 [Moles/Vol] 19 mmol/L Low 20-31 [facility] Comment on above: Performed By: #### B MPX #### [address] [address] [employer] Operator: Alexey Green MD Creatinine [Mass/Vol] 2.4 mg/dL High 0.50-0.90 [facility] Comment on above: Performed By: #### B MPX #### [address] [address] [employer] Operator: Alexey Green MD GFR/1.73 sq M.predicted among non-blacks MDRD (S/P/Bld) [Vol rate/Area] 19 mL/min/{1.73_m2} Low >60 [facility] Comment on above: Result Comment: These [...] secretion. Performed By: #### B MPX #### [address] [address] [employer] Operator: Alexey Green MD Glucose [Mass/Vol] 188 mg/dL High 74-99 [facility] Comment on above: Performed By: #### B MPX #### [facility] [employer] [address] [place] [address] [employer] Operator: Alexey Green MD Potassium [Moles/Vol] 5.1 mmol/L Normal 3.7-5.3 [facility] Comment on above: Performed By: #### B MPX #### [facility] [address] [place] [address] [employer] Operator: Alexey Green MD Sodium [Moles/Vol] 137 mmol/L Normal 136-145 [facility] Comment on above: Performed By: #### B MPX #### [facility] [address] [place] [phone] [employer] Operator: Alexey Green MD Urea nitrogen [Mass/Vol] 42 mg/dL High 8-23 [facility] Comment on above: Performed By: #### B MPX #### [facility] [address] [place] [address] [employer] Operator: Alexey Green MD Anion gap [Moles/Vol] 11 mmol/L Normal 9-16 [facility] Comment on above: Performed By: #### VIKTOR RODAS UA #### [facility] [address] [place] [address] [employer] Operator: Alexey Green MD Calcium [Mass/Vol] 7.7 mg/dL Low 8.6-10.4 [facility] Comment on above: Performed By: #### VIKTOR RODAS UA #### [facility] [address] [place] [address] [employer] Operator: Alexey Green MD Chloride [Moles/Vol] 107 mmol/L Normal 98-107 [facility] Comment on above: Performed By: #### VIKTOR RODAS UA #### [facility] [address] [place] [address] [employer] Operator: Alexey Green MD CO2 [Moles/Vol] 19 mmol/L Low 20-31 [facility] Comment on above: Performed By: #### VIKTOR RODAS UA #### [facility] [address] [place] [address] [employer] Operator: Alexey Green MD Creatinine [Mass/Vol] 2.4 mg/dL High 0.50-0.90 [facility] Comment on above: Performed By: #### VIKTOR RODAS UA #### [facility] [address] [place] [address] [employer] Operator: Alexey Green MD GFR/1.73 sq M.predicted among non-blacks MDRD (S/P/Bld) [Vol rate/Area] 19 mL/min/{1.73_m2} Low >60 [facility] Comment on above: Result Comment: These [...] renal tubular secretion. Performed By: #### VIKTOR RODAS UA #### [facility] [address] [place] [address] [employer] Operator: Alexey Green MD Glucose [Mass/Vol] 188 mg/dL High 74-99 [facility] Comment on above: Performed By: #### VIKTOR RODAS UA #### [employer] [address] [place] [address] [employer] Operator: Alexey Green MD Potassium [Moles/Vol] 5.1 mmol/L Normal 3.7-5.3 [facility] Comment on above: Performed By: #### VIKTOR RODAS UA #### [facility] [address] [place] [address] [employer] Operator: Alexey Green MD Sodium [Moles/Vol] 137 mmol/L Normal 136-145 [facility] Comment on above: Performed By: #### VIKTOR RODAS UA #### [facility] [address] [place] [address] [employer] Operator: Alexey Green MD Urea nitrogen [Mass/Vol] 42 mg/dL High 8-23 [facility] Comment on above: Performed By: #### D TAWNYA, BRIDGETRick, UA #### [facility] [address] [place] [address] [employer] Operator: Alexey Green MD Basic Metabolic Profon 07-24 Anion gap [Moles/Vol] 10 mmol/L Normal 9-16 [facility] Comment on above: Performed By: #### C DP, BMP #### [facility] [employer] [address] [place] [address] [employer] Operator: Alexey Green MD Calcium [Mass/Vol] 7.6 mg/dL Low 8.6-10.4 [facility] Comment on above: Performed By: #### C DP, BMP #### [facility] [address] [place] [address] [employer] Operator: Alexey Green MD Chloride [Moles/Vol] 108 mmol/L High 98-107 [facility] Comment on above: Performed By: #### C DP, BMP #### [facility] [address] [place] [address] [employer] Operator: Alexey Green MD CO2 [Moles/Vol] 21 mmol/L Normal 20-31 [facility] Comment on above: Performed By: #### C DP, BMP #### [facility] [employer] [address] [place] [address] [employer] Operator: Alexey Green MD Creatinine [Mass/Vol] 2.3 mg/dL High 0.50-0.90 [facility] Comment on above: Performed By: #### C DP, BMP #### [facility] [address] [place] [address] [employer] Operator: Alexey Green MD GFR/1.73 sq M.predicted among non-blacks MDRD (S/P/Bld) [Vol rate/Area] 20 mL/min/{1.73_m2} Low >60 [facility] Comment on above: Result Comment: These [...] Performed By: #### C DP, BMP #### [facility] [employer] [address] [place] [address] [phone] [employer] Operator: Alexey Green MD Glucose [Mass/Vol] 130 mg/dL High 74-99 [facility] Comment on above: Performed By: #### C DP, BMP #### [facility] [address] [place] [address] [employer] Operator: Alexey Green MD Potassium [Moles/Vol] 5.3 mmol/L Normal 3.7-5.3 [facility] Comment on above: Performed By: #### C DP, BMP #### [facility] [address] [place] [address] [employer] Operator: Alexey Green MD Sodium [Moles/Vol] 139 mmol/L Normal 136-145 [facility] Comment on above: Performed By: #### C DP, BMP #### [facility] [address] [place] [address] [employer] Operator: Alexey Green MD Urea nitrogen [Mass/Vol] 41 mg/dL High 8-23 [facility] Comment on above: Performed By: #### C DP, BMP #### [employer] [address] [place] [address] [employer] Operator: Alexey Green MD Anion gap [Moles/Vol] 10 mmol/L Normal 9-16 [facility] Comment on above: Performed By: #### C DP, BMP #### [address] [address] [employer] Operator: Alexey Green MD Calcium [Mass/Vol] 7.6 mg/dL Low 8.6-10.4 [facility] Comment on above: Performed By: #### C DP, BMP #### [address] [address] [employer] Operator: Alexey Green MD Chloride [Moles/Vol] 108 mmol/L High 98-107 [facility] Comment on above: Performed By: #### C DP, BMP #### [facility] [employer] [address] [place] [address] [employer] Operator: Alexey Green MD CO2 [Moles/Vol] 21 mmol/L Normal 20-31 [facility] Comment on above: Performed By: #### C DP, BMP #### [facility] [employer] [address] [place] [address] [employer] Operator: Alexey Green MD Creatinine [Mass/Vol] 2.3 mg/dL High 0.50-0.90 [facility] Comment on above: Performed By: #### C DP, BMP #### [address] [address] [employer] Operator: Alexey Green MD GFR/1.73 sq M.predicted among non-blacks MDRD (S/P/Bld) [Vol rate/Area] 20 mL/min/{1.73_m2} Low >60 [facility] Comment on above: Result Comment: These [...] Performed By: #### C DP, BMP #### [facility] [employer] [address] [place] [address] [employer] Operator: Alexey Green MD Glucose [Mass/Vol] 130 mg/dL High 74-99 [facility] Comment on above: Performed By: #### C DP, BMP #### [address] [address] [employer] Operator: Alexey Green MD Potassium [Moles/Vol] 5.3 mmol/L Normal 3.7-5.3 [facility] Comment on above: Performed By: #### C DP, BMP #### [facility] [employer] [address] [place] [address] [employer] Operator: Alexey Green MD Sodium [Moles/Vol] 139 mmol/L Normal 136-145 [facility] Comment on above: Performed By: #### C DP, BMP #### [facility] [employer] [address] [place] [address] [employer] Operator: Alexey Green MD Urea nitrogen [Mass/Vol] 41 mg/dL High 8-23 [facility] Comment on above: Performed By: #### C DP, BMP #### [address] [address] [employer] Operator: Alexey Green MD CBC with Diffon 07-25-2023 Abs. Basophil 0.03 k/uL Normal 0.00-0.20 [facility] Comment on above: Performed By: #### C DP, BMP #### [facility] [employer] [address] [place] [address] [employer] Operator: Alexey Green MD Abs.Imm.Granulocyte 0.03 k/uL Normal 0.00-0.30 [facility] Comment on above: Performed By: #### C DP, BMP #### [facility] [address] [place] [address] [employer] Operator: Alexey Green MD Abs.Neutrophil (Seg) 6.37 k/uL Normal 1.50-8.10 [facility] Comment on above: Performed By: #### C DP, BMP #### [address] [address] [employer] Operator: Alexey Green MD Basophils/100 WBC (Bld) 0 % Normal 0-2 [facility] Comment on above: Performed By: #### C DP, BMP #### [address] [address] [employer] Operator: Alexey Green MD Eosinophils (Bld) [#/Vol] 0.30 10*3/uL Normal 0.00-0.44 [facility] Comment on above: Performed By: #### C DP, BMP #### [address] [address] [employer] Operator: Alexey Green MD Eosinophils/100 WBC (Bld) 3 % Normal 1-4 [facility] Comment on above: Performed By: #### C DP, BMP #### [address] [address] [employer] Operator: Alexey Green MD Erythrocyte distribution width (RBC) [Ratio] 13.5 % Normal 11.8-14.4 [facility] Comment on above: Performed By: #### C DP, BMP #### [address] [address] [employer] Operator: Alexey Green MD Hematocrit (Bld) [Volume fraction] 28.3 % Low 36.3-47.1 [facility] Comment on above: Performed By: #### C DP, BMP #### [address] [address] [employer] Operator: Alexey Green MD Hemoglobin (Bld) [Mass/Vol] 8.2 g/dL Low 11.9-15.1 [facility] Comment on above: Performed By: #### C DP, BMP #### [address] [address] [employer] Operator: Alexey Green MD Immature granulocytes/100 WBC (Bld) 0 % Normal 0 [facility] Comment on above: Performed By: #### C DP, BMP #### [address] [address] [employer] Operator: Alexey Green MD Lymphocytes (Bld) [#/Vol] 3.86 10*3/uL High 1.10-3.70 [facility] Comment on above: Performed By: #### C DP, BMP #### [address] [address] [employer] Operator: Alexey Green MD Lymphocytes/100 WBC (Bld) 33 % Normal 24-43 [facility] Comment on above: Performed By: #### C DP, BMP #### [address] [address] [employer] Operator: Alexey Green MD MCH (RBC) [Entitic mass] 31.5 pg Normal 25.2-33.5 [facility] Comment on above: Performed By: #### C DP, BMP #### [address] [address] [employer] Operator: Alexey Green MD MCHC (RBC) [Mass/Vol] 29.0 g/dL Normal 28.4-34.8 [facility] Comment on above: Performed By: #### C DP, BMP #### [address] [address] [employer] Operator: Alexey Green MD MCV (RBC) [Entitic vol] 108.8 fL High 82.6-102.9 [facility] Comment on above: Performed By: #### C DP, BMP #### [address] [address] [employer] Operator: Alexey Green MD Monocytes (Bld) [#/Vol] 1.19 10*3/uL Normal 0.10-1.20 [facility] Comment on above: Performed By: #### C DP, BMP #### [address] [address] [employer] Operator: Alexey Green MD Monocytes/100 WBC (Bld) 10 % Normal 3-12 [facility] Comment on above: Performed By: #### C DP, BMP #### [address] [address] [employer] Operator: Alexey Green MD Neutrophil (Seg) 54 % Normal 36-65 [facility] Comment on above: Performed By: #### C DP, BMP #### [address] [address] [employer] Operator: Alexey Green MD NRBC Automated 0.0 per [address] [facility] Comment on above: Performed By: #### C DP, BMP #### [address] [address] [employer] Operator: Alexey Green MD Platelet mean volume (Bld) [Entitic vol] 11.8 fL Normal 8.1-13.5 [facility] Comment on above: Performed By: #### C DP, BMP #### [address] [address] [employer] Operator: Alexey Green MD Platelets (Bld) [#/Vol] 148 10*3/uL Normal 138-453 [facility] Comment on above: Performed By: #### C DP, BMP #### [address] [address] [employer] Operator: Alexey Green MD RBC (Bld) [#/Vol] 2.60 10*6/uL Low 3.95-5.11 [facility] Comment on above: Performed By: #### C DP, BMP #### [address] [address] [employer] Operator: Alexey Green MD RBC morphology finding Nom (Bld) MACROCYTOSIS PRESENT Normal [facility] Comment on above: Performed By: #### C DP, BMP #### [address] [address] [employer] Operator: Alexey Green MD WBC (Bld) [#/Vol] 11.8 10*3/uL High 3.5-11.3 [facility] Comment on above: Performed By: #### C DP, BMP #### [address] [address] [employer] Operator: Alexey Green MD Abs. Basophil 0.03 k/uL Normal 0.00-0.20 [facility] Comment on above: Performed By: #### C DP, BMP #### [address] [address] [employer] Operator: Alexey Green MD Abs.Imm.Granulocyte 0.03 k/uL Normal 0.00-0.30 [facility] Comment on above: Performed By: #### C DP, BMP #### [address] [address] [employer] Operator: Alexey Green MD Abs.Neutrophil (Seg) 6.37 k/uL Normal 1.50-8.10 [facility] Comment on above: Performed By: #### C DP, BMP #### [address] [address] [employer] Operator: Alexey Green MD Basophils/100 WBC (Bld) 0 % Normal 0-2 [facility] Comment on above: Performed By: #### C DP, BMP #### [address] [address] [employer] Operator: Alexey Green MD Eosinophils (Bld) [#/Vol] 0.30 10*3/uL Normal 0.00-0.44 [facility] Comment on above: Performed By: #### C DP, BMP #### [place] [address] [employer]: Alexey Green MD Eosinophils/100 WBC (Bld) 3 % Normal 1-4 [facility] Comment on above: Performed By: #### C DP, BMP #### [facility] [address] [place] [address] [employer] Operator: Alexey Green MD Erythrocyte distribution width (RBC) [Ratio] 13.5 % Normal 11.8-14.4 [facility] Comment on above: Performed By: #### C DP, BMP #### [place] [address] [employer] Operator: Alexey Green MD Hematocrit (Bld) [Volume fraction] 28.3 % Low 36.3-47.1 [facility] Comment on above: Performed By: #### C DP, BMP #### [place] [address] [employer] Operator: Alexey Green MD Hemoglobin (Bld) [Mass/Vol] 8.2 g/dL Low 11.9-15.1 [facility] Comment on above: Performed By: #### C DP, BMP #### [facility] [address] [place] [address] [employer] Operator: Alexey Green MD Immature granulocytes/100 WBC (Bld) 0 % Normal 0 [facility] Comment on above: Performed By: #### C DP, BMP #### [address] [address] [employer] Operator: Alexey Green MD Lymphocytes (Bld) [#/Vol] 3.86 10*3/uL High 1.10-3.70 [facility] Comment on above: Performed By: #### C DP, BMP #### [address] [address] [employer] Operator: Alexey Green MD Lymphocytes/100 WBC (Bld) 33 % Normal 24-43 [facility] Comment on above: Performed By: #### C DP, BMP #### [place] [address] [employer] Operator: Alexey Green MD MCH (RBC) [Entitic mass] 31.5 pg Normal 25.2-33.5 [facility] Comment on above: Performed By: #### C DP, BMP #### [address] [address] [employer] Operator: Alexey Green MD MCHC (RBC) [Mass/Vol] 29.0 g/dL Normal 28.4-34.8 [facility] Comment on above: Performed By: #### C DP, BMP #### [place] [address] [employer] Operator: Alexey Green MD MCV (RBC) [Entitic vol] 108.8 fL High 82.6-102.9 [facility] Comment on above: Performed By: #### C DP, BMP #### [address] [address] [employer] Operator: Alexey Green MD Monocytes (Bld) [#/Vol] 1.19 10*3/uL Normal 0.10-1.20 [facility] Comment on above: Performed By: #### C DP, BMP #### [place] [address] [employer] Operator: Alexey Green MD Monocytes/100 WBC (Bld) 10 % Normal 3-12 [facility] Comment on above: Performed By: #### C DP, BMP #### [address] [address] [employer] Operator: Alexey Green MD Neutrophil (Seg) 54 % Normal 36-65 [facility] Comment on above: Performed By: #### C DP, BMP #### [address] [address] [employer] Operator: Alexey Green MD NRBC Automated 0.0 per [address] [facility] Comment on above: Performed By: #### C DP, BMP #### [address] [address] [employer] Operator: Alexey Green MD Platelet mean volume (Bld) [Entitic vol] 11.8 fL Normal 8.1-13.5 [facility] Comment on above: Performed By: #### C DP, BMP #### [address] [address] [employer] Operator: Alexey Green MD Platelets (Bld) [#/Vol] 148 10*3/uL Normal 138-453 [facility] Comment on above: Performed By: #### C DP, BMP #### [address] [address] [employer] Operator: Alexey Green MD RBC (Bld) [#/Vol] 2.60 10*6/uL Low 3.95-5.11 [facility] Comment on above: Performed By: #### C DP, BMP #### [address] [address] [employer] Operator: Alexey Green MD RBC morphology finding Nom (Bld) MACROCYTOSIS PRESENT Normal [facility] Comment on above: Performed By: #### C DP, BMP #### [facility] [address] [place] [address] [employer] Operator: Alexey Green MD WBC (Bld) [#/Vol] 11.8 10*3/uL High 3.5-11.3 [facility] Comment on above: Performed By: #### C DP, BMP #### [facility] [address] [place] [address] [employer] Operator: Alexey Green MD Calcium, Ionicon 07-25-2023 Calcium [Moles/Vol] 1.20 mmol/L Normal 1.13-1.33 [facility] Comment on above: Performed By: #### B MPX #### [address] [address] [employer] Operator: Alexey Green MD Calcium [Moles/Vol] 1.20 mmol/L Normal 1.13-1.33 [facility] Comment on above: Performed By: #### C DP, BMP #### [address] [address] [employer] Operator: Alexey Green MD Hgb/Hcton 07-25-2023 Hematocrit (Bld) [Volume fraction] 33.2 % Low 36.3-47.1 [facility] Comment on above: Performed By: #### U RNA, URTP, URCRE, UEOS #### [facility] [address] [place] [address] [employer] Operator: Alexey Green MD Performed By: #### H H #### [facility] [address] [place] [address] [employer] Operator: Alexey Green MD Hemoglobin (Bld) [Mass/Vol] 9.4 g/dL Low 11.9-15.1 [facility] Comment on above: Performed By: #### U RNA, URTP, URCRE, UEOS #### [facility] [address] [place] [address] [employer] Operator: Alexey Green MD Performed By: #### H H #### [address] [address] [employer]: Alexey Green MD Hematocrit (Bld) [Volume fraction] 26.7 % Low 36.3-47.1 [facility] Comment on above: Performed By: #### U RNA, URTP, URCRE, UEOS #### [address] [address] [employer]: Alexey Green MD Hemoglobin (Bld) [Mass/Vol] 7.6 g/dL Low 11.9-15.1 [facility] Comment on above: Performed By: #### U RNA, URTP, URCRE, UEOS #### [address] [address] [employer] Operator: Alexey Green MD Hematocrit (Bld) [Volume fraction] 26.7 % Low 36.3-47.1 [facility] Comment on above: Performed By: #### H H #### [facility] [address] [place] [address] [employer] Operator: Alexey Green MD Hemoglobin (Bld) [Mass/Vol] 7.6 g/dL Low 11.9-15.1 [facility] Comment on above: Performed By: #### H H #### [facility] [address] [place] [address] [employer] Operator: Alexey Green MD Urinalysis, Routineon 2023 Bilirubin, SemiQt,Ur Negative Normal NEG [facility] Comment on above: Performed By: #### U MICAO, UA #### [facility] [address] [place] [address] [employer] Operator: Alexey Green MD Blood, Urine Negative Normal NEG [facility] Comment on above: Performed By: #### U KURTISO, UA #### [address] [address] [employer] Operator: Alexey Green MD Clarity (U) Clear Normal CLEAR [facility] Comment on above: Performed By: #### U MICAO, UA #### [facility] [address] [address] [employer] Operator: Alexey Green MD Color (U) Yellow Normal YEL [facility] Comment on above: Performed By: #### U MICAO, UA #### [address] [address] [employer] Operator: Alexey Green MD Glucose Ql (U) Negative Normal NEG [facility] Comment on above: Performed By: #### U KURTISO, UA #### [address] [address] [employer]: Alexey Green MD Ketones Ql (U) Negative Normal NEG [facility] Comment on above: Performed By: #### U MICAO, UA #### [address] [address] [employer] Operator: Alexey Green MD Leukocyte esterase Test strip Ql (U) MODERATE Abnormal NEG [facility] Comment on above: Performed By: #### U MICAO, UA #### [address] [address] [employer] Operator: Alexey Green MD Nitrite,Ur Negative Normal NEG [facility] Comment on above: Performed By: #### U MICAO, UA #### [address] [address] [employer]: Alexey Green MD PH,Ur 5.0 Normal 5.0-8.0 [facility] Comment on above: Performed By: #### U MICAO, UA #### [facility] [employer] [address] [place] [address] [employer]: Alexey Green MD Protein Ql (U) 1+ mg/dL Abnormal NEG [facility] Comment on above: Performed By: #### U MICAO, UA #### [facility] [employer] [address] [place] [address] [employer] Operator: Alexey Green MD Spec. [place],Ur 1.025 Normal 1.005-1.030 [facility] Comment on above: Performed By: #### U MICAO, UA #### [address] [address] [employer] Operator: Alexey Green MD Urobilinogen,Ur Normal Normal 0.0-1.0 [facility] Comment on above: Performed By: #### U MICAO, UA #### [address] [address] [employer] Operator: Alexey Green MD Bilirubin, SemiQt,Ur Negative Normal NEG [facility] Comment on above: Performed By: #### U MICAO, UA #### [address] [address] [employer] Operator: Alexey Green MD Blood, Urine Negative Normal NEG [facility] Comment on above: Performed By: #### U MICAO, UA #### [facility] [employer] [address] [place] [address] [employer] Operator: Alexey Green MD Clarity (U) Clear Normal CLEAR [facility] Comment on above: Performed By: #### U MICAO, UA #### [facility] [employer] [address] [place] [address] [employer] Operator: Alexey Green MD Color (U) Yellow Normal YEL [facility] Comment on above: Performed By: #### U MICAO, UA #### [facility] [address] [place] [address] [employer] Operator: Alexey Green MD Glucose Ql (U) Negative Normal NEG [facility] Comment on above: Performed By: #### U MICAO, UA #### [facility] [employer] [address] [place] [address] [employer] Operator: Alexey Green MD Ketones Ql (U) Negative Normal NEG [facility] Comment on above: Performed By: #### U MICAO, UA #### [address] [address] [employer] Operator: Alexey Green MD Leukocyte esterase Test strip Ql (U) MODERATE Abnormal NEG [facility] Comment on above: Performed By: #### U KURTISO, UA #### [address] [address] [employer] Operator: Alexey Green MD Nitrite,Ur Negative Normal NEG [facility] Comment on above: Performed By: #### U KURTISO, UA #### [address] [address] [employer] Operator: Alexey Green MD PH,Ur 5.0 Normal 5.0-8.0 [facility] Comment on above: Performed By: #### U MICAO, UA #### [facility] [address] [place] [address] [employer] Operator: Alexey Green MD Protein Ql (U) 1+ mg/dL Abnormal NEG [facility] Comment on above: Performed By: #### U MICAO, UA #### [facility] [address] [place] [address] [employer] Operator: Alexey Green MD Spec. [place],Ur 1.025 Normal 1.005-1.030 [facility] Comment on above: Performed By: #### U MICAO, UA #### [facility] [address] [place] [address] [employer] Operator: Alexey Green MD Urobilinogen,Ur Normal Normal 0.0-1.0 [facility] Comment on above: Performed By: #### U MICAO, UA #### [facility] [address] [place] [address] [employer] Operator: Alexey Green MD Urinalysis,Microon 4 Bacteria None Normal NONE [facility] Comment on above: Performed By: #### U MICAO, UA #### [facility] [address] [place] [address] [employer] Operator: Alexey Green MD Casts None Normal 0-8 [facility] Comment on above: Result Comment: Refe rence range defined for non-centrifuged specimen. Performed By: #### U MICAO, UA #### [facility] [address] [place] [address] [employer] Operator: Alexey Green MD Epithelial cells LM Ql (Urine sed) 2 TO 5 Normal 0-5 [facility] Comment on above: Performed By: #### U MICAO, UA #### [facility] [address] [place] [address] [employer] Operator: Alexey Green MD Urine RBC's 2 TO 5 Normal 0-4 [facility] Comment on above: Result Comment: Refe rence range defined for non-centrifuged specimen. Performed By: #### U MICAO, UA #### [facility] [address] [place] [address] [employer] Operator: Alexey Green MD Urine WBC's 20 TO 50 Normal 0-5 [facility] Comment on above: Performed By: #### U MICAO, UA #### [facility] [address] [place] [address] [employer] Operator: Alexey Green MD Bacteria None Normal NONE [facility] Comment on above: Performed By: #### U ZACARIAS UA #### [address] [address] [employer] Operator: Alexey Green MD Casts None Normal 0-8 [facility] Comment on above: Result Comment: Refe rence range defined for non-centrifuged specimen. Performed By: #### U KURTISO, UA #### [facility] [address] [place] [address] [employer] Operator: Alexey Green MD Epithelial cells LM Ql (Urine sed) 2 TO 5 Normal 0-5 [facility] Comment on above: Performed By: #### U ZACARIAS UA #### [address] [address] [employer] Operator: Alexey Green MD Urine RBC's 2 TO 5 Normal 0-4 [facility] Comment on above: Result Comment: Refe rence range defined for non-centrifuged specimen. Performed By: #### U ZACARIAS UA #### [address] [address] [employer] Operator: Alexey Green MD Urine WBC's 20 TO 50 Normal 0-5 [facility] Comment on above: Performed By: #### U KURTISO, UA #### [address] [address] [employer] Operator: Alexey Green MD Basic Metabolic Profon 07-23 Anion gap [Moles/Vol] 8 mmol/L Low 9-16 [facility] Comment on above: Performed By: #### U RNA, URTP, URCRE, UEOS #### [address] [address] [employer] Operator: Alexey Green MD Calcium [Mass/Vol] 8.3 mg/dL Low 8.6-10.4 [facility] Comment on above: Performed By: #### U RNA, URTP, URCRE, UEOS #### [facility] [address] [place] [address] [employer] Operator: Alexey Green MD Chloride [Moles/Vol] 110 mmol/L High 98-107 [facility] Comment on above: Performed By: #### U RNA, URTP, URCRE, UEOS #### [facility] [address] [place] [address] [employer] Operator: Alexey Green MD CO2 [Moles/Vol] 22 mmol/L Normal 20-31 [facility] Comment on above: Performed By: #### U RNA, URTP, URCRE, UEOS #### [address] [address] [employer] Operator: Alexey Green MD Creatinine [Mass/Vol] 2.0 mg/dL High 0.50-0.90 [facility] Comment on above: Performed By: #### U RNA, URTP, URCRE, UEOS #### [address] [address] [employer] Operator: Alexey Green MD GFR/1.73 sq M.predicted among non-blacks MDRD (S/P/Bld) [Vol rate/Area] 24 mL/min/{1.73_m2} Low >60 [facility] Comment on above: Result Comment: These [...] #### U RNA, URTP, URCRE, UEOS #### [facility] [employer] [address] [place] [address] [employer] Operator: Alexey Green MD Glucose [Mass/Vol] 108 mg/dL High 74-99 [facility] Comment on above: Performed By: #### U RNA, URTP, URCRE, UEOS #### [address] [address] [employer] Operator: Alexey Green MD Potassium [Moles/Vol] 5.0 mmol/L Normal 3.7-5.3 [facility] Comment on above: Result Comment: SPEC IMEN SLIGHTLY HEMOLYZED, RESULTS MAY BE ADVERSELY AFFECTED. Performed By: #### U RNA, URTP, URCRE, UEOS #### [address] [address] [employer] Operator: Alexey Green MD Sodium [Moles/Vol] 140 mmol/L Normal 136-145 [facility] Comment on above: Performed By: #### U RNA, URTP, URCRE, UEOS #### [facility] [address] [place] [address] [employer] Operator: Alexey Green MD Urea nitrogen [Mass/Vol] 41 mg/dL High 8-23 [facility] Comment on above: Performed By: #### U RNA, URTP, URCRE, UEOS #### [address] [address] [employer] Operator: Alexey Green MD Anion gap [Moles/Vol] 8 mmol/L Low 9-16 [facility] Comment on above: Performed By: #### C DP, BMP #### [address] [address] [employer] Operator: Alexey Green MD Calcium [Mass/Vol] 8.3 mg/dL Low 8.6-10.4 [facility] Comment on above: Performed By: #### C DP, BMP #### [address] [address] [employer] Operator: Alexey Green MD Chloride [Moles/Vol] 110 mmol/L High 98-107 [facility] Comment on above: Performed By: #### C DP, BMP #### [facility] [address] [place] [address] [employer] Operator: Alexey Green MD CO2 [Moles/Vol] 22 mmol/L Normal 20-31 [facility] Comment on above: Performed By: #### C DP, BMP #### [facility] [address] [place] [address] [employer] Operator: Alexey Green MD Creatinine [Mass/Vol] 2.0 mg/dL High 0.50-0.90 [facility] Comment on above: Performed By: #### C DP, BMP #### [facility] [address] [place] [address] [employer] Operator: Alexey Green MD GFR/1.73 sq M.predicted among non-blacks MDRD (S/P/Bld) [Vol rate/Area] 24 mL/min/{1.73_m2} Low >60 [facility] Comment on above: Result Comment: These [...] Performed By: #### C DP, BMP #### [facility] [address] [place] [address] [employer] Operator: Alexey Green MD Glucose [Mass/Vol] 108 mg/dL High 74-99 [facility] Comment on above: Performed By: #### C DP, BMP #### [facility] [address] [place] [address] [phone] [employer] Operator: Alexey Green MD Potassium [Moles/Vol] 5.0 mmol/L Normal 3.7-5.3 [facility] Comment on above: Result Comment: SPEC IMEN SLIGHTLY HEMOLYZED, RESULTS MAY BE ADVERSELY AFFECTED. Performed By: #### C DP, BMP #### [address] [address] [employer] Operator: Alexey Green MD Sodium [Moles/Vol] 140 mmol/L Normal 136-145 [facility] Comment on above: Performed By: #### C DP, BMP #### [facility] [employer] [address] [place] [address] [employer] Operator: Alexey Green MD Urea nitrogen [Mass/Vol] 41 mg/dL High 8-23 [facility] Comment on above: Performed By: #### C DP, BMP #### [facility] [address] [place] [address] [employer] Operator: Alexey Green MD CBC with Diffon 07-24-2023 Abs. Basophil 0.04 k/uL Normal 0.00-0.20 [facility] Comment on above: Performed By: #### C DP #### [address] [address] [employer] Operator: Alexey Green MD Abs.Imm.Granulocyte 0.03 k/uL Normal 0.00-0.30 [facility] Comment on above: Performed By: #### C DP #### [facility] [address] [place] [address] [employer] Operator: Alexey Green MD Abs.Neutrophil (Seg) 4.06 k/uL Normal 1.50-8.10 [facility] Comment on above: Performed By: #### C DP #### [address] [address] [employer] Operator: Alexey Green MD Basophils/100 WBC (Bld) 0 % Normal 0-2 [facility] Comment on above: Performed By: #### C DP #### [address] [address] [employer] Operator: Alexey Green MD Eosinophils (Bld) [#/Vol] 0.37 10*3/uL Normal 0.00-0.44 [facility] Comment on above: Performed By: #### C DP #### [address] [address] [employer] Operator: Alexey Green MD Eosinophils/100 WBC (Bld) 4 % Normal 1-4 [facility] Comment on above: Performed By: #### C DP #### [address] [address] [employer] Operator: Alexey Green MD Erythrocyte distribution width (RBC) [Ratio] 13.5 % Normal 11.8-14.4 [facility] Comment on above: Performed By: #### C DP #### [address] [address] [employer] Operator: Alexey Green MD Hematocrit (Bld) [Volume fraction] 32.8 % Low 36.3-47.1 [facility] Comment on above: Performed By: #### C DP #### [address] [address] [employer] Operator: Alexey Green MD Hemoglobin (Bld) [Mass/Vol] 9.4 g/dL Low 11.9-15.1 [facility] Comment on above: Performed By: #### C DP #### [address] [address] [employer] Operator: Alexey Green MD Immature granulocytes/100 WBC (Bld) 0 % Normal 0 [facility] Comment on above: Performed By: #### C DP #### [address] [address] [employer] Operator: Alexey Green MD Lymphocytes (Bld) [#/Vol] 4.07 10*3/uL High 1.10-3.70 [facility] Comment on above: Performed By: #### C DP #### [address] [address] [employer] Operator: Alexey Green MD Lymphocytes/100 WBC (Bld) 42 % Normal 24-43 [facility] Comment on above: Performed By: #### C DP #### [place] [address] [employer] Operator: Alexey Green MD MCH (RBC) [Entitic mass] 31.1 pg Normal 25.2-33.5 [facility] Comment on above: Performed By: #### C DP #### [place] [address] [employer] Operator: Alexey Green MD MCHC (RBC) [Mass/Vol] 28.7 g/dL Normal 28.4-34.8 [facility] Comment on above: Performed By: #### C DP #### [place] [address] [employer] Operator: Alexey Green MD MCV (RBC) [Entitic vol] 108.6 fL High 82.6-102.9 [facility] Comment on above: Performed By: #### C DP #### [address] [address] [employer] Operator: Alexey Green MD Monocytes (Bld) [#/Vol] 1.24 10*3/uL High 0.10-1.20 [facility] Comment on above: Performed By: #### C DP #### [address] [address] [employer] Operator: Alexey Green MD Monocytes/100 WBC (Bld) 13 % High 3-12 [facility] Comment on above: Performed By: #### C DP #### [address] [address] [employer] Operator: Alexey Green MD Neutrophil (Seg) 41 % Normal 36-65 [facility] Comment on above: Performed By: #### C DP #### [address] [address] [employer] Operator: Alexey Green MD NRBC Automated 0.0 per [address] [facility] Comment on above: Performed By: #### C DP #### [address] [address] [employer] Operator: Alexey Green MD Platelet mean volume (Bld) [Entitic vol] 11.6 fL Normal 8.1-13.5 [facility] Comment on above: Performed By: #### C DP #### [address] [address] [employer] Operator: Alexey Green MD Platelets (Bld) [#/Vol] 168 10*3/uL Normal 138-453 [facility] Comment on above: Performed By: #### C DP #### [address] [address] [employer] Operator: Alexey Green MD RBC (Bld) [#/Vol] 3.02 10*6/uL Low 3.95-5.11 [facility] Comment on above: Performed By: #### C DP #### [address] [address] [employer] Operator: Alexey Green MD RBC morphology finding Nom (Bld) MACROCYTOSIS PRESENT Normal [facility] Comment on above: Performed By: #### C DP #### [address] [address] [employer] Operator: Alexey Green MD WBC (Bld) [#/Vol] 9.8 10*3/uL Normal 3.5-11.3 [facility] Comment on above: Performed By: #### C DP #### [address] [address] [employer] Operator: Alexey Green MD Abs. Basophil 0.04 k/uL Normal 0.00-0.20 [facility] Comment on above: Performed By: #### C DP #### [address] [address] [employer] Operator: Alexey Green MD Abs.Imm.Granulocyte 0.03 k/uL Normal 0.00-0.30 [facility] Comment on above: Performed By: #### C DP #### [place] [address] [employer] Operator: Alexey Green MD Abs.Neutrophil (Seg) 4.06 k/uL Normal 1.50-8.10 [facility] Comment on above: Performed By: #### C DP #### [address] [address] [employer] Operator: Alexey Green MD Basophils/100 WBC (Bld) 0 % Normal 0-2 [facility] Comment on above: Performed By: #### C DP #### [address] [address] [employer] Operator: Alexey Green MD Eosinophils (Bld) [#/Vol] 0.37 10*3/uL Normal 0.00-0.44 [facility] Comment on above: Performed By: #### C DP #### [address] [address] [employer] Operator: Alexey Green MD Eosinophils/100 WBC (Bld) 4 % Normal 1-4 [facility] Comment on above: Performed By: #### C DP #### [address] [address] [employer] Operator: Alexey Green MD Erythrocyte distribution width (RBC) [Ratio] 13.5 % Normal 11.8-14.4 [facility] Comment on above: Performed By: #### C DP #### [address] [address] [employer] Operator: Alexey Green MD Hematocrit (Bld) [Volume fraction] 32.8 % Low 36.3-47.1 [facility] Comment on above: Performed By: #### C DP #### [address] [address] [employer] Operator: Alexey Green MD Hemoglobin (Bld) [Mass/Vol] 9.4 g/dL Low 11.9-15.1 [facility] Comment on above: Performed By: #### C DP #### [address] [address] [employer] Operator: Alexey Green MD Immature granulocytes/100 WBC (Bld) 0 % Normal 0 [facility] Comment on above: Performed By: #### C DP #### [address] [address] [employer] Operator: Alexey Green MD Lymphocytes (Bld) [#/Vol] 4.07 10*3/uL High 1.10-3.70 [facility] Comment on above: Performed By: #### C DP #### [address] [address] [employer] Operator: Alexey Green MD Lymphocytes/100 WBC (Bld) 42 % Normal 24-43 [facility] Comment on above: Performed By: #### C DP #### [address] [address] [employer] Operator: Alexey Green MD MCH (RBC) [Entitic mass] 31.1 pg Normal 25.2-33.5 [facility] Comment on above: Performed By: #### C DP #### [address] [address] [employer] Operator: Alexey Green MD MCHC (RBC) [Mass/Vol] 28.7 g/dL Normal 28.4-34.8 [facility] Comment on above: Performed By: #### C DP #### [address] [address] [employer] Operator: Alexey Green MD MCV (RBC) [Entitic vol] 108.6 fL High 82.6-102.9 [facility] Comment on above: Performed By: #### C DP #### [address] [address] [employer] Operator: Alexey Green MD Monocytes (Bld) [#/Vol] 1.24 10*3/uL High 0.10-1.20 [facility] Comment on above: Performed By: #### C DP #### [address] [address] [employer] Operator: Alexey Green MD Monocytes/100 WBC (Bld) 13 % High 3-12 [facility] Comment on above: Performed By: #### C DP #### [address] [address] [employer] Operator: Alexey Green MD Neutrophil (Seg) 41 % Normal 36-65 [facility] Comment on above: Performed By: #### C DP #### [address] [address] [employer] Operator: Alexey Green MD NRBC Automated 0.0 per [address] [facility] Comment on above: Performed By: #### C DP #### [address] [place] [address] [employer] Operator: Alexey Green MD Platelet mean volume (Bld) [Entitic vol] 11.6 fL Normal 8.1-13.5 [facility] Comment on above: Performed By: #### C DP #### [address] [address] [employer] Operator: Alexey Green MD Platelets (Bld) [#/Vol] 168 10*3/uL Normal 138-453 [facility] Comment on above: Performed By: #### C DP #### [address] [address] [employer] Operator: Alexey Green MD RBC (Bld) [#/Vol] 3.02 10*6/uL Low 3.95-5.11 [facility] Comment on above: Performed By: #### C DP #### [address] [address] [employer] Operator: Alexey Green MD RBC morphology finding Nom (Bld) MACROCYTOSIS PRESENT Normal [facility] Comment on above: Performed By: #### C DP #### [address] [address] [employer] Operator: Alexey Green MD WBC (Bld) [#/Vol] 9.8 10*3/uL Normal 3.5-11.3 [facility] Comment on above: Performed By: #### C DP #### [address] [address] [employer] Operator: Alexey Green MD FLUORO FOR SURGICAL PROCEDUR ESon 07-24-2023 FLUORO FOR SURGICAL PROCEDURES Radiology exam is complete. No Radiologist dictation. Please follow up with ordering provider. Final result Normal [facility] FLUORO FOR SURGICAL PROCEDURES Radiology exam is complete. No Radiologist dictation. Please follow up with ordering provider. Final result Normal [facility] Glucose,Whole Bloodon 2023 Glucose [Mass/Vol] 102 mg/dL Normal 65-105 [facility] Glucose [Mass/Vol] 102 mg/dL Normal 65-105 [facility] Hgb/Hcton 07-24-2023 Hematocrit (Bld) [Volume fraction] 36.4 % Normal 36.3-47.1 [facility] Comment on above: Performed By: #### B MPX #### [address] [address] [employer] Operator: Alexey Green MD Hemoglobin (Bld) [Mass/Vol] 10.6 g/dL Low 11.9-15.1 [facility] Comment on above: Performed By: #### B MPX #### [address] [address] [employer] Operator: Alexey Green MD Hematocrit (Bld) [Volume fraction] 36.4 % Normal 36.3-47.1 [facility] Comment on above: Performed By: #### VIKTOR RODAS #### [facility] [address] [place] [address] [employer] Operator: Alexey Green MD Hemoglobin (Bld) [Mass/Vol] 10.6 g/dL Low 11.9-15.1 [facility] Comment on above: Performed By: #### D TAWNYA MORENA #### [facility] [address] [place] [address] [employer] Operator: Alexey Green MD Type + Screenon 07-24-2023 Type + Screen Sample Expiration 07/26/2023,3966 Arm Band Number [id number] ABO/Rh(D) A POSITIVE Antibody Screen NEGATIVE Unit Number [id number] Blood Component Type Leukocyte Reduced Red Cell Unit Division 00 Status of Unit TRANSFUSED Transfusion Status OK TO TRANSFUSE Crossmatch Result COMPATIBLE Normal [facility] Comment on above: Performed By: #### U RNA, URTP, URCRE, UEOS #### [facility] [address] [place], [place] [phone] [employer] Operator: Alexey Green MD Type + Screen Sample Expiration 07/26/2023,2359 Arm Band Number [id number] ABO/Rh(D) A POSITIVE Antibody Screen NEGATIVE Unit Number [id number] Blood Component Type Leukocyte Reduced Red Cell Unit Division 00 Status of Unit TRANSFUSED Transfusion Status OK TO TRANSFUSE Crossmatch Result COMPATIBLE Normal [facility] Comment on above: Performed By: #### U MICAO, UA #### [facility] [address] [place], [place] 6[address] [employer] Operator: Alexey Green MD XR FEMUR LEFT (MIN [...] Will Ramirez MD 07/24/[address] [facility] XR FEMUR LEFT (MIN 2 VIEWS) [...] Will Ramirez MD 07/24/[address] [facility] Albuminon 07-23-2023 Albumin [Mass/Vol] 3.6 g/dL Normal 3.5-5.2 [facility] Comment on above: Performed By: #### U RNA, URTP, URCRE, UEOS #### [facility] [address] [place], [place] [id number] [employer] Operator: Alexey Green MD Albumin [Mass/Vol] 3.6 g/dL Normal 3.5-5.2 [facility] Comment on above: Performed By: #### U MICAO, UA #### [facility] [address] [place], [place] [phone] [employer] Operator: Alexey Green MD CT CERVICAL SPINE WO [...] Wilber Robertson MD 07/23/[address] [facility] CT CERVICAL SPINE WO CONTRAST EXAMINATION: [...] Wilber Robertson MD 07/23/[address] [facility] CT CHEST ABDOMEN PELVIS W CO [...] Will Ramirez MD 07/23/[address] [facility] CT CHEST ABDOMEN PELVIS W CONTRAST [...] Will Ramirez MD 07/23/[address] [facility] CT HEAD WO CONTRASTon 2023 CT [...] Wilber Robertson MD 07/23/[address] [facility] CT HEAD WO CONTRAST EXAMINATION: CT [...] Wilber Robertson MD 07/23/[address] [facility] CT LUMBAR SPINE BONY RECONST RUCTIONon [...] destructive lesion is seen. DEGENERATIVE CHANGES: Diffuse [id number] degenerative changes of the lumbar spine predominate [...] Will Ramirez MD 07/23/[address] [facility] CT LUMBAR SPINE BONY RECONSTRUCTION EXAMINATION: [...] destructive lesion is seen. DEGENERATIVE CHANGES: Diffuse [id number] degenerative changes of the lumbar spine predominate [...] Will Ramirez MD 07/23/[address] [facility] CT THORACIC SPINE BONY RECON STRUCTIONon [...] Will Ramirez MD 07/23/[address] [facility] CT THORACIC SPINE BONY RECONSTRUCTION EXAMINATION: [...] Will Ramirez MD 07/23/[address] [facility] Drug Scr, Abuse, Uron 2023 Fentanyl, Urine Positive Abnormal NEG [facility] Comment on above: Result Comment: Cuto ff: 5 ng/ml Performed By: #### U RNA, URTP, URCRE, UEOS #### [facility] [address] [place] [address] [employer] Operator: Alexey Green MD Interpretive Info Assay provides rapid clinical screening only. Presumptive positive results for Normal [facility] Comment on above: Result Comment: lega l purposes should be confirmed by another method. To request confirmation, please call the lab within 7 days of sample submission. Performed By: #### U RNA, URTP, URCRE, UEOS #### [facility] [address] [place], [place] [id number] [employer] Operator: Alexey Green MD Amphetamine(s),Ur Negative Normal NEG [facility] Comment on above: Result Comment: Cuto ff: 1000 ng/mL Performed By: #### U RNA, URTP, URCRE, UEOS #### [facility] [address] [place] [address] [employer] Operator: Alexey Green MD Barbiturate(s),Ur Negative Normal NEG [facility] Comment on above: Result Comment: Cuto ff: 200 ng/ml Performed By: #### U RNA, URTP, URCRE, UEOS #### [address] [address] [employer] Operator: Alexey Green MD Benzodiazepine(s) Negative Normal NEG [facility] Comment on above: Result Comment: Cuto ff: 200 ng/ml Performed By: #### U RNA, URTP, URCRE, UEOS #### [address] [address] [employer] Operator: Alexey Green MD Cannabinoid(s),Ur Negative Normal NEG [facility] Comment on above: Result Comment: Cuto ff: 50 ng/ml Performed By: #### U RNA, URTP, URCRE, UEOS #### [address] [address] [employer] Operator: Alexey Green MD Cocaine Metabolite Negative Normal NEG [facility] Comment on above: Result Comment: Cuto ff: 300 ng/ml Performed By: #### U RNA, URTP, URCRE, UEOS #### [address] [address] [employer] Operator: Alexey Green MD Methadone Ql (U) Negative Normal NEG [facility] Comment on above: Result Comment: Cuto ff: 300 ng/ml Performed By: #### U RNA, URTP, URCRE, UEOS #### [address] [address] [employer] Operator: Alexey Green MD Opiate(s), Ur Negative Normal NEG [facility] Comment on above: Result Comment: Cuto ff: 300 ng/ml Performed By: #### U RNA, URTP, URCRE, UEOS #### [facility] [address] [place] [address] [employer] Operator: Alexey Green MD Oxycodone, Urine Negative Normal NEG [facility] Comment on above: Result Comment: Cuto ff: 100 ng/ml Performed By: #### U RNA, URTP, URCRE, UEOS #### [facility] [address] [place] [address] [employer] Operator: Alexey Green MD Phencyclidine, Ur Negative Normal NEG [facility] Comment on above: Result Comment: Cuto ff: 25 ng/ml Performed By: #### U RNA, URTP, URCRE, UEOS #### [facility] [address] [place] [address] [employer] Operator: Alexey Grene MD Fentanyl, Urine Positive Abnormal NEG [facility] Comment on above: Result Comment: Cuto ff: 5 ng/ml Performed By: #### JACQUIE RODASLOS [facility], [facility]A #### [facility] [address] [place] [address] [employer] Operator: Alexey Green MD Interpretive Info Assay provides rapid clinical screening only. Presumptive positive results for Normal [facility] Comment on above: Result Comment: lega l purposes should be confirmed by another method. To request confirmation, please call the lab within 7 days of sample submission. Performed By: #### Alana BOWLING UMKIMO, UA #### [facility] [address] [place] [address] [employer] Operator: Alexey Green MD Amphetamine(s),Ur Negative Normal NEG [facility] Comment on above: Result Comment: Cuto ff: 1000 ng/mL Performed By: #### Alana BOWLING UMKIMO, UA #### [facility] [address] [place] [address] [employer] Operator: Alexey Green MD Barbiturate(s),Ur Negative Normal NEG [facility] Comment on above: Result Comment: Cuto ff: 200 ng/ml Performed By: #### Alana BOWLING [facility], [facility] #### [facility] [address] [place] [address] [employer] Operator: Alexey Green MD Benzodiazepine(s) Negative Normal NEG [facility] Comment on above: Result Comment: Cuto ff: 200 ng/ml Performed By: #### Alana BOWLING [facility], [facility] #### [facility] [address] [place] [address] [employer] Operator: Alexey Green MD Cannabinoid(s),Ur Negative Normal NEG [facility] Comment on above: Result Comment: Cuto ff: 50 ng/ml Performed By: #### Alana BOWLING [facility], [facility] #### [facility] [address] [place] [address] [employer] Operator: Alexey Green MD Cocaine Metabolite Negative Normal NEG [facility] Comment on above: Result Comment: Cuto ff: 300 ng/ml Performed By: #### Alana BOWLING [facility], [facility] #### [facility] [address] [place] [address] [employer] Operator: Alexey Green MD Methadone Ql (U) Negative Normal NEG [facility] Comment on above: Result Comment: Cuto ff: 300 ng/ml Performed By: #### Alana BOWLING [facility], UA #### [facility] [address] [place] [address] [employer] Operator: Alexey Green MD Opiate(s), Ur Negative Normal NEG [facility] Comment on above: Result Comment: Cuto ff: 300 ng/ml Performed By: #### Alana BOWLING UMKIMO, UA #### [facility] [address] [place] [address] [employer] Operator: Aelxey Green MD Oxycodone, Urine Negative Normal NEG [facility] Comment on above: Result Comment: Cuto ff: 100 ng/ml Performed By: #### D TAWNYA JACQUIEMORENA UA #### [address] [address] [employer] Operator: Alexey Green MD Phencyclidine, Ur Negative Normal NEG [facility] Comment on above: Result Comment: Cuto ff: 25 ng/ml Performed By: #### D VIKTOR BOWLING UA #### [address] [address] [employer] Operator: Alexey Green MD Gl Hemostasis TEG w/Lysison 07-23-2023 Fibrinogen, Func TEG 41.5 mm High 15.0-32.0 [facility] Comment on above: Performed By: #### B MPX #### [address] [address] [employer] Operator: Alexey Green MD LY30 (Lysis) TEG 0.0 % Normal 0.0-2.6 [facility] Comment on above: Performed By: #### B MPX #### [address] [address] [employer] Operator: Alexey Green MD MA Rapid TEG 71.7 mm High 52.0-70 [facility] Comment on above: Performed By: #### B MPX #### [address] [address] [employer] Operator: Alexey Green MD R(Reaction Time) TEG 4.0 min Low 4.6-9.1 [facility] Comment on above: Performed By: #### B MPX #### [address] [address] [employer] Operator: Alexey Green MD Fibrinogen, Func TEG 41.5 mm High 15.0-32.0 [facility] Comment on above: Performed By: #### C DP, BMP #### [address] [address] [employer] Operator: Alexey Green MD LY30 (Lysis) TEG 0.0 % Normal 0.0-2.6 [facility] Comment on above: Performed By: #### C DP, BMP #### [address] [phone] [employer] Operator: Alexey Green MD MA Rapid TEG 71.7 mm High 52.0-70 [facility] Comment on above: Performed By: #### C DP, BMP #### [facility] [address] [place] [address] [employer] Operator: Alexey Green MD R(Reaction Time) TEG 4.0 min Low 4.6-9.1 [facility] Comment on above: Performed By: #### C DP, BMP #### [address] [phone] [employer] Operator: Alexey Green MD Glucose,Whole Bloodon 2023 Glucose [Mass/Vol] 154 mg/dL High 65-105 [facility] Glucose [Mass/Vol] 116 mg/dL High 65-105 [facility] Glucose [Mass/Vol] 154 mg/dL High 65-105 [facility] Glucose [Mass/Vol] 116 mg/dL High 65-105 [facility] Trauma Profileon 07-23-2023 Anion gap [Moles/Vol] 8 mmol/L Low 9-16 [facility] Comment on above: Performed By: #### U RNA, URTP, URCRE, UEOS #### [facility] [address] [place] [address] [employer] Operator: Alexey Green MD Chloride [Moles/Vol] 111 mmol/L High 98-107 [facility] Comment on above: Performed By: #### U RNA, URTP, URCRE, UEOS #### [address] [address] [employer] Operator: Alexey Green MD CO2 [Moles/Vol] 24 mmol/L Normal 20-31 [facility] Comment on above: Performed By: #### U RNA, URTP, URCRE, UEOS #### [address] [address] [employer] Operator: Alexey Green MD Creatinine [Mass/Vol] 2.2 mg/dL High 0.50-0.90 [facility] Comment on above: Performed By: #### U RNA, URTP, URCRE, UEOS #### [address] [address] [employer] Operator: Alexey Green MD Ethanol [Mass/Vol] mg/dL Normal <10 [facility] Comment on above: Performed By: #### U RNA, URTP, URCRE, UEOS #### [address] [address] [employer] Operator: Alexey Green MD Ethanol percent <0.010 Normal <0.010 [facility] Comment on above: Performed By: #### U RNA, URTP, URCRE, UEOS #### [address] [address] [employer] Operator: Alexey Green MD GFR/1.73 sq M.predicted among non-blacks MDRD (S/P/Bld) [Vol rate/Area] 22 mL/min/{1.73_m2} Low >60 [facility] Comment on above: Result Comment: These [...] #### U RNA, URTP, URCRE, UEOS #### [address] [address] [employer] Operator: Alexey Green MD Glucose [Mass/Vol] 112 mg/dL High 74-99 [facility] Comment on above: Performed By: #### U RNA, URTP, URCRE, UEOS #### [address] [address] [employer] Operator: Alexey Green MD Potassium [Moles/Vol] 4.5 mmol/L Normal 3.7-5.3 [facility] Comment on above: Performed By: #### U RNA, URTP, URCRE, UEOS #### [address] [address] [employer] Operator: Alexey Green MD Sodium [Moles/Vol] 143 mmol/L Normal 136-145 [facility] Comment on above: Performed By: #### U RNA, URTP, URCRE, UEOS #### [address] [address] [employer] Operator: Alexey Green MD Urea nitrogen [Mass/Vol] 44 mg/dL High 8-23 [facility] Comment on above: Performed By: #### U RNA, URTP, URCRE, UEOS #### [address] [address] [employer] Operator: Alexey Green MD aPTT Coag (Bld) [Time] 29.0 s Normal 23.0-36.5 [facility] Comment on above: Result Comment: IV Heparin Therapy Range: 66.0-92.0 sec Performed By: #### U RNA, URTP, URCRE, UEOS #### [address] [address] [employer] Operator: Alexey Green MD INR Coag (PPP) [Relative time] 1.8 {INR} Normal [facility] Comment on above: Result Comment: Therapeutic Range: Moderate Anticoagulant Intensity: INR = 2.0-3.0 High Anticoagulant Intensity: INR = 2.5-3.5 Performed By: #### U RNA, URTP, URCRE, UEOS #### [address] [address] [employer] Operator: Alexey Green MD PT Coag (PPP) [Time] 20.6 s High 11.7-14.9 [facility] Comment on above: Performed By: #### U RNA, URTP, URCRE, UEOS #### [address] [address] [employer] Operator: Alexey Green MD Body Temp. 37.[address] [facility] Comment on above: Performed By: #### U RNA, URTP, URCRE, UEOS #### [address] [address] [employer] Operator: Alexey Green MD Carboxy Hgb 1.6 % Normal 0-5 [facility] Comment on above: Result Comment: Reference Range: Non-Smokers 0-2% Average Smoker 2-4% Heavy Smoker <10% Performed By: #### U RNA, URTP, URCRE, UEOS #### [address] [address] [employer] Operator: Alexey Green MD FIO2 INFORMATION NOT PROVIDED Normal [facility] Comment on above: Performed By: #### U RNA, URTP, URCRE, UEOS #### [address] [address] [employer] Operator: Alexey Green MD HCO3 (Bld) [Moles/Vol] 25.6 mmol/L Normal 24-30 [facility] Comment on above: Performed By: #### U RNA, URTP, URCRE, UEOS #### [address] [address] [employer] Operator: Alexey Green MD Negative Base Excess 2.0 mmol/L Normal 0.0-2.0 [facility] Comment on above: Performed By: #### U RNA, URTP, URCRE, UEOS #### [address] [address] [employer] Operator: Alexey Green MD Oxygen saturation in Blood 67.2 % Normal 60.0-85.0 [facility] Comment on above: Performed By: #### U RNA, URTP, URCRE, UEOS #### [address] [address] [employer] Operator: Alexey Green MD pCO2 59.6 mm Hg High 39-55 [facility] Comment on above: Performed By: #### U RNA, URTP, URCRE, UEOS #### [address] [address] [employer] Operator: Alexey Green MD pH (Bld) 7.255 [pH] Low 7.320-7.420 [facility] Comment on above: Performed By: #### U RNA, URTP, URCRE, UEOS #### [address] [address] [employer] Operator: Alexey Green MD pO2 35.4 mm Hg Normal 30-50 [facility] Comment on above: Performed By: #### U RNA, URTP, URCRE, UEOS #### [address] [address] [employer] Operator: Alexey Green MD Erythrocyte distribution width (RBC) [Ratio] 13.4 % Normal 11.8-14.4 [facility] Comment on above: Performed By: #### U RNA, URTP, URCRE, UEOS #### [address] [address] [employer] Operator: Alexey Green MD Hematocrit (Bld) [Volume fraction] 39.3 % Normal 36.3-47.1 [facility] Comment on above: Performed By: #### U RNA, URTP, URCRE, UEOS #### [address] [address] [employer] Operator: Alexey Green MD Hemoglobin (Bld) [Mass/Vol] 11.8 g/dL Low 11.9-15.1 [facility] Comment on above: Performed By: #### U RNA, URTP, URCRE, UEOS #### [address] [address] [employer] Operator: Alexey Green MD MCH (RBC) [Entitic mass] 31.4 pg Normal 25.2-33.5 [facility] Comment on above: Performed By: #### U RNA, URTP, URCRE, UEOS #### [address] [address] [employer] Operator: Alexey Green MD MCHC (RBC) [Mass/Vol] 30.0 g/dL Normal 28.4-34.8 [facility] Comment on above: Performed By: #### U RNA, URTP, URCRE, UEOS #### [address] [address] [employer] Operator: Alexey Green MD MCV (RBC) [Entitic vol] 104.5 fL High 82.6-102.9 [facility] Comment on above: Performed By: #### U RNA, URTP, URCRE, UEOS #### [address] [address] [employer] Operator: Alexey Green MD NRBC Automated 0.0 per [address] [facility] Comment on above: Performed By: #### U RNA, URTP, URCRE, UEOS #### [address] [address] [employer] Operator: Alexey Green MD Platelet mean volume (Bld) [Entitic vol] 11.5 fL Normal 8.1-13.5 [facility] Comment on above: Performed By: #### U RNA, URTP, URCRE, UEOS #### [address] [address] [employer] Operator: Alexey Green MD Platelets (Bld) [#/Vol] 198 10*3/uL Normal 138-453 [facility] Comment on above: Performed By: #### U RNA, URTP, URCRE, UEOS #### [address] [address] [employer] Operator: Alexey Green MD RBC (Bld) [#/Vol] 3.76 10*6/uL Low 3.95-5.11 [facility] Comment on above: Performed By: #### U RNA, URTP, URCRE, UEOS #### [address] [address] [employer] Operator: Alexey Green MD WBC (Bld) [#/Vol] 10.4 10*3/uL Normal 3.5-11.3 [facility] Comment on above: Performed By: #### U RNA, URTP, URCRE, UEOS #### [address] [address] [employer] Operator: Alexey Green MD Blood Bank BILL FOR SERVICES PERFORMED Normal [facility] Comment on above: Performed By: #### U RNA, URTP, URCRE, UEOS #### [address] [address] [employer] Operator: Alexey Green MD Anion gap [Moles/Vol] 8 mmol/L Low 9-16 [facility] Comment on above: Performed By: #### U ZACARIAS UA #### [address] [address] [employer] Operator: Alexey Green MD Chloride [Moles/Vol] 111 mmol/L High 98-107 [facility] Comment on above: Performed By: #### U ZACARIAS UA #### [facility] [employer] [address] [place] [address] [employer] Operator: Alexey Green MD CO2 [Moles/Vol] 24 mmol/L Normal 20-31 [facility] Comment on above: Performed By: #### Tanja ADAMES UA #### [address] [address] [employer] Operator: Alexey Green MD Creatinine [Mass/Vol] 2.2 mg/dL High 0.50-0.90 [facility] Comment on above: Performed By: #### Tanja ADAMES UA #### [address] [address] [employer] Operator: Alexey Green MD Ethanol [Mass/Vol] mg/dL Normal <10 [facility] Comment on above: Performed By: #### Tanja ADAMES UA #### [address] [address] [employer] Operator: Alexey Green MD Ethanol percent <0.010 Normal <0.010 [facility] Comment on above: Performed By: #### U ZACARIAS UA #### [address] [address] [employer] Operator: Alexey Green MD GFR/1.73 sq M.predicted among non-blacks MDRD (S/P/Bld) [Vol rate/Area] 22 mL/min/{1.73_m2} Low >60 [facility] Comment on above: Result Comment: These [...] renal tubular secretion. Performed By: #### U ZACARIAS UA #### [facility] [address] [place] [address] [employer] Operator: Alexey Green MD Glucose [Mass/Vol] 112 mg/dL High 74-99 [facility] Comment on above: Performed By: #### U ZACARIAS UA #### [facility] [address] [place] [address] [employer] Operator: Alexey Green MD Potassium [Moles/Vol] 4.5 mmol/L Normal 3.7-5.3 [facility] Comment on above: Performed By: #### U ZACARIAS UA #### [facility] [address] [place] [address] [employer] Operator: Alexey Green MD Sodium [Moles/Vol] 143 mmol/L Normal 136-145 [facility] Comment on above: Performed By: #### U ZACARIAS UA #### [facility] [address] [place] [address] [employer] Operator: Alexey Green MD Urea nitrogen [Mass/Vol] 44 mg/dL High 8-23 [facility] Comment on above: Performed By: #### U ZACARIAS UA #### [facility] [address] [place] [address] [employer] Operator: Alexey Green MD aPTT Coag (Bld) [Time] 29.0 s Normal 23.0-36.5 [facility] Comment on above: Result Comment: IV Heparin Therapy Range: 66.0-92.0 sec Performed By: #### U ZACARIAS UA #### [facility] [address] [place] [address] [employer] Operator: Alexey Green MD INR Coag (PPP) [Relative time] 1.8 {INR} Normal [facility] Comment on above: Result Comment: Therapeutic Range: Moderate Anticoagulant Intensity: INR = 2.0-3.0 High Anticoagulant Intensity: INR = 2.5-3.5 Performed By: #### U ZACARIAS UA #### [facility] [address] [place] [address] [employer] Operator: Alexey Green MD PT Coag (PPP) [Time] 20.6 s High 11.7-14.9 [facility] Comment on above: Performed By: #### Tanja ADAMES UA #### [address] [address] [employer] Operator: Alexey Green MD Body Temp. 37.[address] [facility] Comment on above: Performed By: #### Tanja ADAMES UA #### [address] [address] [employer] Operator: Alexey Green MD Carboxy Hgb 1.6 % Normal 0-5 [facility] Comment on above: Result Comment: Reference Range: Non-Smokers 0-2% Average Smoker 2-4% Heavy Smoker <10% Performed By: #### U ZACARIAS UA #### [facility] [address] [place] [address] [employer] Operator: Alexey Green MD FIO2 INFORMATION NOT PROVIDED Normal [facility] Comment on above: Performed By: #### U ZACARIAS UA #### [facility] [address] [place] [address] [employer] Operator: Alexey Green MD HCO3 (Bld) [Moles/Vol] 25.6 mmol/L Normal 24-30 [facility] Comment on above: Performed By: #### U MICAO, UA #### [facility] [address] [place] [address] [employer] Operator: Alexey Green MD Negative Base Excess 2.0 mmol/L Normal 0.0-2.0 [facility] Comment on above: Performed By: #### U MICAO, UA #### [facility] [address] [place] [address] [employer] Operator: Alexey rGeen MD Oxygen saturation in Blood 67.2 % Normal 60.0-85.0 [facility] Comment on above: Performed By: #### U MICAO, UA #### [facility] [address] [place] [address] [employer] Operator: Alexey Green MD pCO2 59.6 mm Hg High 39-55 [facility] Comment on above: Performed By: #### U MICAO, UA #### [facility] [address] [place] [address] [employer] Operator: Alexey Green MD pH (Bld) 7.255 [pH] Low 7.320-7.420 [facility] Comment on above: Performed By: #### U MICAO, UA #### [facility] [address] [place] [address] [employer] Operator: Alexey rGeen MD pO2 35.4 mm Hg Normal 30-50 [facility] Comment on above: Performed By: #### U MICAO, UA #### [facility] [address] [place] [address] [employer] Operator: Alexey Green MD Erythrocyte distribution width (RBC) [Ratio] 13.4 % Normal 11.8-14.4 [facility] Comment on above: Performed By: #### U MICAO, UA #### [facility] [address] [place] [address] [employer] Operator: Alexey Green MD Hematocrit (Bld) [Volume fraction] 39.3 % Normal 36.3-47.1 [facility] Comment on above: Performed By: #### U ZACARIAS UA #### [address] [address] [employer] Operator: Alexey Green MD Hemoglobin (Bld) [Mass/Vol] 11.8 g/dL Low 11.9-15.1 [facility] Comment on above: Performed By: #### U ZACARIAS UA #### [facility] [address] [place] [address] [employer] Operator: Alexey Green MD MCH (RBC) [Entitic mass] 31.4 pg Normal 25.2-33.5 [facility] Comment on above: Performed By: #### Tanja ADAMES UA #### [address] [address] [employer] Operator: Alexey Green MD MCHC (RBC) [Mass/Vol] 30.0 g/dL Normal 28.4-34.8 [facility] Comment on above: Performed By: #### U ZACARIAS UA #### [address] [address] [employer] Operator: Alexey Green MD MCV (RBC) [Entitic vol] 104.5 fL High 82.6-102.9 [facility] Comment on above: Performed By: #### U ZACARIAS UA #### [address] [address] [employer] Operator: Alexey Green MD NRBC Automated 0.0 per [address] [facility] Comment on above: Performed By: #### U ZACARIAS UA #### [address] [address] [employer]: Alexey Green MD Platelet mean volume (Bld) [Entitic vol] 11.5 fL Normal 8.1-13.5 [facility] Comment on above: Performed By: #### U KURTISO, UA #### [address] [address] [employer] Machine Operator: Alexey Green MD Platelets (Bld) [#/Vol] 198 10*3/uL Normal 138-453 [facility] Comment on above: Performed By: #### U ZACARIAS, UA #### [address] [address] [employer] Operator: Alexey Green MD RBC (Bld) [#/Vol] 3.76 10*6/uL Low 3.95-5.11 [facility] Comment on above: Performed By: #### U ZACARIAS UA #### [address] [address] [employer] Operator: Alexey Green MD WBC (Bld) [#/Vol] 10.4 10*3/uL Normal 3.5-11.3 [facility] Comment on above: Performed By: #### U ZACARIAS UA #### [address] [address] [employer] Operator: Alexey Green MD Blood Bank BILL FOR SERVICES PERFORMED Normal [facility] Comment on above: Performed By: #### U ZACARIAS, UA #### [address] [address] [employer] Operator: Alexey Green MD Urinalysis, Routineon 2023 Bilirubin, SemiQt,Ur Negative Normal NEG [facility] Comment on above: Performed By: #### U RNA, URTP, URCRE, UEOS #### [facility] [employer] [address] [place] [address] [employer] Operator: Alexey Green MD Blood, Urine Negative Normal NEG [facility] Comment on above: Performed By: #### U RNA, URTP, URCRE, UEOS #### [address] [address] [employer] Operator: Alexey Green MD Clarity (U) Clear Normal CLEAR [facility] Comment on above: Performed By: #### U RNA, URTP, URCRE, UEOS #### [address] [address] [employer] Operator: Alexey Green MD Color (U) Yellow Normal YEL [facility] Comment on above: Performed By: #### U RNA, URTP, URCRE, UEOS #### [address] [address] [employer] Operator: Alexey Green MD Glucose Ql (U) Negative Normal NEG [facility] Comment on above: Performed By: #### U RNA, URTP, URCRE, UEOS #### [address] [address] [employer] Operator: Alexey Green MD Ketones Ql (U) Negative Normal NEG [facility] Comment on above: Performed By: #### U RNA, URTP, URCRE, UEOS #### [address] [address] [employer] Operator: Alexey Green MD Leukocyte esterase Test strip Ql (U) SMALL Abnormal NEG [facility] Comment on above: Performed By: #### U RNA, URTP, URCRE, UEOS #### [address] [address] [employer] Operator: Alexey Green MD Nitrite,Ur Negative Normal NEG [facility] Comment on above: Performed By: #### U RNA, URTP, URCRE, UEOS #### [address] [address] [employer] Operator: Alexey Green MD PH,Ur 5.5 Normal 5.0-8.0 [facility] Comment on above: Performed By: #### U RNA, URTP, URCRE, UEOS #### [address] [address] [employer] Operator: Alexey Green MD Protein Ql (U) TRACE Abnormal NEG [facility] Comment on above: Performed By: #### U RNA, URTP, URCRE, UEOS #### [address] [address] [employer] Operator: Alexey Green MD Spec. [place],Ur 1.029 Normal 1.005-1.030 [facility] Comment on above: Performed By: #### U RNA, URTP, URCRE, UEOS #### [address] [address] [employer] Operator: Alexey Green MD Urobilinogen,Ur Normal Normal 0.0-1.0 [facility] Comment on above: Performed By: #### U RNA, URTP, URCRE, UEOS #### [address] [address] [employer] Operator: Alexey Green MD Bilirubin, SemiQt,Ur Negative Normal NEG [facility] Comment on above: Performed By: #### VIKTOR RODAS UA #### [facility] [employer] [address] [place] [address] [employer] Operator: Alexey Green MD Blood, Urine Negative Normal NEG [facility] Comment on above: Performed By: #### VIKTOR RODAS UA #### [facility] [employer] [address] [place] [address] [employer] Operator: Alexey Green MD Clarity (U) Clear Normal CLEAR [facility] Comment on above: Performed By: #### VIKTOR RODAS UA #### [facility] [address] [place] [address] [employer] Operator: Alexey Green MD Color (U) Yellow Normal YEL [facility] Comment on above: Performed By: #### Alana BOWLING [facility] UA #### [facility] [address] [place] [address] [employer] Operator: Alexey Green MD Glucose Ql (U) Negative Normal NEG [facility] Comment on above: Performed By: #### Alana BOWLING [facility] UA #### [facility] [address] [place] [address] [employer] Operator: Alexey Green MD Ketones Ql (U) Negative Normal NEG [facility] Comment on above: Performed By: #### Alana BOWLING [facility] UA #### [facility] [address] [place] [address] [employer] Operator: Alexey Green MD Leukocyte esterase Test strip Ql (U) SMALL Abnormal NEG [facility] Comment on above: Performed By: #### Alana BOWLING [facility] UA #### [facility] [address] [place] [address] [employer] Operator: Alexey Green MD Nitrite,Ur Negative Normal NEG [facility] Comment on above: Performed By: #### Alana BOWLING [facility], UA #### [facility] [address] [place] [address] [employer] Operator: Alexey Green MD PH,Ur 5.5 Normal 5.0-8.0 [facility] Comment on above: Performed By: #### Alana BOWLING [facility], UA #### [facility] [address] [place] [address] [employer] Operator: Alexey Green MD Protein Ql (U) TRACE Abnormal NEG [facility] Comment on above: Performed By: #### Alana BOWLING [facility], UA #### [address] [address] [employer] Operator: Alexey Green MD Spec. [place],Ur 1.029 Normal 1.005-1.030 [facility] Comment on above: Performed By: #### Alana BOWLING [facility], UA #### [address] [address] [employer] Operator: Alexey Green MD Urobilinogen,Ur Normal Normal 0.0-1.0 [facility] Comment on above: Performed By: #### Alana BOWLING [facility], UA #### [address] [address] [employer] Operator: Alxeey Green MD Urinalysis,Microon 4 Bacteria MANY Abnormal NONE [facility] Comment on above: Performed By: #### U RNA, URTP, URCRE, UEOS #### [address] [address] [employer] Operator: Alexey Green MD Casts None Normal 0-8 [facility] Comment on above: Result Comment: Refe rence range defined for non-centrifuged specimen. Performed By: #### U RNA, URTP, URCRE, UEOS #### [address] [address] [employer] Operator: Alexey Green MD Epithelial cells LM Ql (Urine sed) None Normal 0-5 [facility] Comment on above: Performed By: #### U RNA, URTP, URCRE, UEOS #### [address] [address] [employer] Operator: Alexey Green MD Urine RBC's None Normal 0-4 [facility] Comment on above: Result Comment: Refe rence range defined for non-centrifuged specimen. Performed By: #### U RNA, URTP, URCRE, UEOS #### [facility] [address] [place] [address] [employer] Operator: Alexey Green MD Urine WBC's 20 TO 50 Normal 0-5 [facility] Comment on above: Performed By: #### U RNA, URTP, URCRE, UEOS #### [facility] [address] [place] [address] [employer] Operator: Alexey Green MD Bacteria MANY Abnormal NONE [facility] Comment on above: Performed By: #### BRIDGET RODASO, UA #### [facility] [address] [place] [address] [employer] Operator: Alexey Green MD Casts None Normal 0-8 [facility] Comment on above: Result Comment: Refe rence range defined for non-centrifuged specimen. Performed By: #### BRIDGET RODASO, UA #### [facility] [address] [place] [address] [employer] Operator: Alexey Green MD Epithelial cells LM Ql (Urine sed) None Normal 0-5 [facility] Comment on above: Performed By: #### Alana BOWLING UMICAO, UA #### [facility] [address] [place] [address] [employer] Operator: Alexey Green MD Urine RBC's None Normal 0-4 [facility] Comment on above: Result Comment: Refe rence range defined for non-centrifuged specimen. Performed By: #### JACQUIE RODASICAO, UA #### [facility] [address] [place] [address] [employer] Operator: Alexey Green MD Urine WBC's 20 TO 50 Normal 0-5 [facility] Comment on above: Performed By: #### Alana BOWLING UMKIMO, UA #### [facility] [address] [place] [phone] [employer] Operator: Alexey Green MD Vitamin D 25 OHon 07-23-2023 Vitamin D 25 OH 26.9 ng/mL Low 30.0-100.0 [facility] Comment on above: Result Comment: Reference Range: Vitamin D status Range Deficiency <20 ng/mL Mild Deficiency 20-30 ng/mL Sufficiency 30-100 ng/mL Toxicity >100 ng/mL Performed By: #### B MPX #### [facility] [place], [place] [phone] [employer] Operator: Alexey Green MD Vitamin D 25 OH 26.9 ng/mL Low 30.0-100.0 [facility] Comment on above: Result Comment: Reference Range: Vitamin D status Range Deficiency <20 ng/mL Mild Deficiency 20-30 ng/mL Sufficiency 30-100 ng/mL Toxicity >100 ng/mL Performed By: #### C DP, BMP #### [facility] [address] [place] [phone] [employer] Operator: Alexey Green MD XR FEMUR LEFT (MIN [...] Will Ramirez MD 07/23/[address] [facility] XR FEMUR LEFT (MIN 2 VIEWS) [...] Will Ramirez MD 07/23/[address] [facility] XR HIP 2-3 VW W PELVIS [...] Will Ramirez MD 07/23/[address] [facility] XR HIP 2-3 VW W PELVIS [...] Will Ramirez MD 07/23/[address] [facility] XR HIP LEFT (2-3 VIEWS)on XR [...] Will Ramirez MD 07/23/[address] [facility] XR HIP LEFT (2-3 VIEWS) EXAMINATION: [...] Will Ramirez MD 07/23/[address] [facility] XR KNEE LEFT (1-2 VIEWS)on 07-23-2023 XR KNEE LEFT (1-2 VIEWS) EXAMINATION: [...] Will Ramirez MD 07/23/[address] [facility] XR KNEE LEFT (1-2 VIEWS) EXAMINATION: [...] Will Ramirez MD 07/23/[address] [facility] XR KNEE LEFT (3 VIEWS)on XR [...] Will Ramirez MD 07/23/[address] [facility] XR KNEE LEFT (3 VIEWS) EXAMINATION: [...] Will Ramirez MD 07/23/[address] [facility] Brain Natri. Peptideon 07-02 Natriuretic peptide B (Bld) [Mass/Vol] 1489 pg/mL High 0-300 [facility] Comment on above: Result Comment: An a ge-independent cutoff point of 300 pg/ml has a 98% negative predictive value excluding acute heart failure. Performed By: #### C DP, BMP #### [facility] [employer] [address] [place] [address] [employer] Operator: Alexey Green MD CBC with Diffon 07-03-2023 Abs. Basophil 0.06 k/uL Normal 0.00-0.20 [facility] Comment on above: Performed By: #### C DP, BMP #### [facility] [employer] [address] [place] [address] [employer] Operator: Alexey Green MD Abs.Imm.Granulocyte <0.03 Normal 0.00-0.30 [facility] Comment on above: Performed By: #### C DP, BMP #### [facility] [address] [place] [address] [employer] Operator: Alexey Green MD Abs.Neutrophil (Seg) 3.23 k/uL Normal 1.50-8.10 [facility] Comment on above: Performed By: #### C DP, BMP #### [facility] [address] [place] [address] [employer] Operator: Alexey Green MD Basophils/100 WBC (Bld) 1 % Normal 0-2 [facility] Comment on above: Performed By: #### C DP, BMP #### [address] [address] [employer] Operator: Alexey Green MD Eosinophils (Bld) [#/Vol] 0.67 10*3/uL High 0.00-0.44 [facility] Comment on above: Performed By: #### C DP, BMP #### [address] [address] [employer] Operator: Alexey Green MD Eosinophils/100 WBC (Bld) 9 % High 1-4 [facility] Comment on above: Performed By: #### C DP, BMP #### [address] [address] [employer] Operator: Alexey Green MD Erythrocyte distribution width (RBC) [Ratio] 13.6 % Normal 11.8-14.4 [facility] Comment on above: Performed By: #### C DP, BMP #### [facility] [employer] [address] [place] [address] [employer] Operator: Alexey Green MD Hematocrit (Bld) [Volume fraction] 39.3 % Normal 36.3-47.1 [facility] Comment on above: Performed By: #### C DP, BMP #### [address] [address] [employer] Operator: Alexey Green MD Hemoglobin (Bld) [Mass/Vol] 11.8 g/dL Low 11.9-15.1 [facility] Comment on above: Performed By: #### C DP, BMP #### [facility] [employer] [address] [place] [address] [employer] Operator: Alexey Green MD Immature granulocytes/100 WBC (Bld) 0 % Normal 0 [facility] Comment on above: Performed By: #### C DP, BMP #### [facility] [employer] [address] [place] [address] [employer] Operator: Alexey Green MD Lymphocytes (Bld) [#/Vol] 3.23 10*3/uL Normal 1.10-3.70 [facility] Comment on above: Performed By: #### C DP, BMP #### [address] [address] [employer] Operator: Alexey Green MD Lymphocytes/100 WBC (Bld) 40 % Normal 24-43 [facility] Comment on above: Performed By: #### C DP, BMP #### [address] [address] [employer] Operator: Alexey Green MD MCH (RBC) [Entitic mass] 31.1 pg Normal 25.2-33.5 [facility] Comment on above: Performed By: #### C DP, BMP #### [address] [address] [employer] Operator: Alexey Green MD MCHC (RBC) [Mass/Vol] 30.0 g/dL Normal 28.4-34.8 [facility] Comment on above: Performed By: #### C DP, BMP #### [address] [address] [employer] Operator: Alexey Green MD MCV (RBC) [Entitic vol] 103.7 fL High 82.6-102.9 [facility] Comment on above: Performed By: #### C DP, BMP #### [address] [address] [employer] Operator: Alexey Green MD Monocytes (Bld) [#/Vol] 0.68 10*3/uL Normal 0.10-1.20 [facility] Comment on above: Performed By: #### C DP, BMP #### [address] [address] [employer] Operator: Alexey Green MD Monocytes/100 WBC (Bld) 9 % Normal 3-12 [facility] Comment on above: Performed By: #### C DP, BMP #### [address] [address] [employer] Operator: Alexey Green MD Neutrophil (Seg) 41 % Normal 36-65 [facility] Comment on above: Performed By: #### C DP, BMP #### [address] [address] [employer] Operator: Alexey Green MD NRBC Automated 0.0 per [address] [facility] Comment on above: Performed By: #### C DP, BMP #### [address] [address] [employer] Operator: Alexey Green MD Platelet mean volume (Bld) [Entitic vol] 12.2 fL Normal 8.1-13.5 [facility] Comment on above: Performed By: #### C DP, BMP #### [address] [address] [employer] Operator: Alexey Green MD Platelets (Bld) [#/Vol] 199 10*3/uL Normal 138-453 [facility] Comment on above: Performed By: #### C DP, BMP #### [address] [address] [employer] Operator: Alexey Green MD RBC (Bld) [#/Vol] 3.79 10*6/uL Low 3.95-5.11 [facility] Comment on above: Performed By: #### C DP, BMP #### [address] [address] [employer] Operator: Alexey Green MD RBC morphology finding Nom (Bld) MACROCYTOSIS PRESENT Normal [facility] Comment on above: Performed By: #### C DP, BMP #### [address] [place] [address] [employer] Operator: Alexey Green MD WBC (Bld) [#/Vol] 7.9 10*3/uL Normal 3.5-11.3 [facility] Comment on above: Performed By: #### C DP, BMP #### [facility] [address] [place] [address] [employer] Operator: Alexey Green MD Hemoglobin A1Con 07-03-2023 Glucose [Mass/Vol] 137 mg/dL Normal [facility] Comment on above: Result Comment: The ADA and AACC recommend providing the estimated average glucose result to permit better patient understanding of their HBA1c result. Performed By: #### C DP, BMP #### [facility] [address] [place] [address] [employer] Operator: Alexey Green MD HbA1c (Bld) [Mass fraction] 6.4 % High 4.0-6.0 [facility] Comment on above: Performed By: #### C DP, BMP #### [facility] [employer] [address] [place] [address] [employer] Operator: Alexey Green MD TSH w/reflex to FT4on 2023 Thyroid Stim. Horm. 2.56 uIU/mL Normal 0.27-4.20 [facility] Comment on above: Performed By: #### D VIKTOR BOWLING, UA #### [facility] [address] [place] [address] [employer] Operator: Alexey Green MD Protime-INRon 05-29-2023 INR Coag (Bld) [Relative time] 2.2 {INR} [facility] (PPP) [Time] 26.8 s seconds [facility] Protime-INRon 04-25-2023 INR Coag (Bld) [Relative time] 2.7 {INR} [facility] PT Coag (PPP) [Time] 32.2 s seconds [facility] Protime-INRon 04-13-2023 PT Coag (PPP) [Time] 25.2 s seconds [facility] INR Coag (Bld) [Relative time] 2.1 {INR} [facility] INR in Platelet poor plasma by Coagulation assayOrdered By: Chase Méndez on 02-26-2023 INR Coag (PPP) [Relative time] 2.2 {INR} [facility] Comment on above: INR Therapeutic [...] Coag (PPP) [Relative time] 2.2 {INR} Normal [facility] Comment on [...] heart valves: 3 - 4.5 PERFORMED BY: [place] [address] PATHOLOGIST ROTARY VENEER MACHINE OPERATOR REZA ORTIZ M.D. Performed By: #### P T #### [address] PT Coag (PPP) [Time] 25.8 s High 9.0-12.9 [facility] Comment on above: Result Comment: A he matocrit value greater than 55% may lead to inaccurate results in coagulation testing. Patients having hematocrit values >55% require a special collection tube for coagulation studies. Please contact the laboratory at [phone] for redraw instructions. Performed By: #### P T #### [facility] [address] [place] [address] [facility] Prothrombin time (PT)Ordered By: Chase Méndez on 02-26-2023 PT Coag (PPP) [Time] 25.8 s 9.0-12.9 [facility] Comment on above: A hematocrit value g reater than 55% may lead to inaccurate results in coagulation testing. Patients having hematocrit values >55% require a special collection tube for coagulation studies. Please contact the laboratory at [phone] for redraw instructions. INR in Platelet poor plasma by Coagulation assayOrdered By: Chase Rodriguezdaniela on 02-15-2023 INR Coag (PPP) [Relative time] 1.2 {INR} [facility] Comment on above: INR Therapeutic [...] Coag (PPP) [Relative time] 1.2 {INR} Normal [facility] Comment on [...] heart valves: 3 - 4.5 PERFORMED BY: [place] [address] PATHOLOGIST ROTARY VENEER MACHINE OPERATOR REZA ORTIZ M.D. Performed By: #### P T #### [facility] [address] [place], [place] [id number] [facility] PT Coag (PPP) [Time] 14.5 s High 9.0-12.9 [facility] Comment on above: Result Comment: A he matocrit value greater than 55% may lead to inaccurate results in coagulation testing. Patients having hematocrit values >55% require a special collection tube for coagulation studies. Please contact the laboratory at [phone] for redraw instructions. Performed By: #### P T #### [address] Prothrombin time (PT)Ordered By: Chase Méndez on 02-15-2023 PT Coag (PPP) [Time] 14.5 s 9.0-12.9 [facility] Comment on above: A hematocrit value g reater than 55% may lead to inaccurate results in coagulation testing. Patients having hematocrit values >55% require a special collection tube for coagulation studies. Please contact the laboratory at [phone] for redraw instructions. Ambulatory Visit Summaryon 0 [...] regurgitation Varicose veins of lower extremity Normal [facility] General Surgery Office/Clini c Noteon 12-05-2022 General [...] Immunizations Vaccine Date Status Comments SARS-CoV-2 (COVID-19) mRNAMUL.ORD![id number] 07/25/2022 Recorded SARS-CoV-2 (COVID-19) mRNA-1273 vaccine 07/10/2022 (more content not included)... Normal [facility] Comment on above: Result Comment: Elec tronically Signed By: JAY BRYAN, Tom Jimenez\.br\Date and Time Signed: 12/05/22 15:41 EDT Pathology Noteon 11-29-2022 Pathology Note [id number]:127 Normal [facility] Ambulatory Visit Summaryon 0 11-22-2022 Ambulatory Visit Summary DEONNAWILLIAM GEMMA E :1935 Visit Date:11/22/2022 Ambulatory Visit Instructions Your [...] regurgitation Varicose veins of lower extremity Normal [facility] General Surgery Office/Clini c Noteon 11-22-2022 General [...] Years., 11/14 (more content not included)... Normal [facility] Comment on above: Result Comment: [...] JAY BRYAN, Tom Jimenez Where: General Surgery Nill/Said [place] Normal [facility] Office Visiton 10-31-2022 Follow-up visit [id number] Carrie Lewis 1935 F Date Provider Department Center 10/31/2022 MaryanANDREWROB ZIMMER [facility] Hos No family history on file Level of Service:32457 DE OFFICE/OUTPATIENT ESTABLISHED MOD MDM 30-39 MIN Reason for Visit and Comments: Follow-up [064471] Normal [facility] Physician Referralon 023 Physician Referral [id number]:127 Normal [facility] Physician Referral [id number]:127 Normal [facility] PROTIMEon 08-02-2022 INR Coag (PPP) [Relative time] 1.12 {INR} Normal [facility] Comment on above: Performed By: #### P OCGLUC #### [facility] [address] [place] [address] Dr. Nancy Montalvo INR GUIDELINES SEE BELOW Normal [facility] Comment on above: Result Comment: ADITYA RED INR: 2.0 - 3.0 CONDITIONS NOT LISTED BELOW 2.5 - 3.5 FOR PROSTHETIC HEART VALVE REPLACEMENT 2.5 - 3.5 RECURRENT THROMBOSIS Performed By: #### P OCGLUC #### [facility] [address] [address] [address] Nancy Montalvo PT Coag (PPP) [Time] 11.8 s Critically high 9.0-11.6 [facility] Comment on above: Performed By: #### P OCGLUC #### [facility] [address] [address] [address] Nancy Montalvo PROTIMEon 07-26-2022 INR Coag (PPP) [Relative time] 1.33 {INR} Normal [facility] Comment on above: Performed By: #### P OCGLUC #### [facility] [address] [place] [address] Dr. Nancy Montalvo INR GUIDELINES SEE BELOW Normal [facility] Comment on above: Result Comment: ADITYA RED INR: 2.0 - 3.0 CONDITIONS NOT LISTED BELOW 2.5 - 3.5 FOR PROSTHETIC HEART VALVE REPLACEMENT 2.5 - 3.5 RECURRENT THROMBOSIS Performed By: #### P OCGLUC #### [facility] [address] [place] [address] Dr. Nancy Montalvo PT Coag (PPP) [Time] 13.9 s Critically high 9.0-11.6 [facility] Comment on above: Performed By: #### P OCGLUC #### [facility] [address] [place] [address] Dr. Nancy Montalvo PROTIMEon 07-24-2022 INR Coag (PPP) [Relative time] 1.41 {INR} Normal [facility] Comment on above: Performed By: #### C VDTBH #### [facility] [address] [place] [address] Dr. Nancy Montalvo INR GUIDELINES SEE BELOW Normal [facility] Comment on above: Result Comment: ADITYA RED INR: 2.0 - 3.0 CONDITIONS NOT LISTED BELOW 2.5 - 3.5 FOR PROSTHETIC HEART VALVE REPLACEMENT 2.5 - 3.5 RECURRENT THROMBOSIS Performed By: #### C VDTBH #### [facility] [address] [place] [address] Dr. Nancy Montalvo PT Coag (PPP) [Time] 14.7 s Critically high 9.0-11.6 [facility] Comment on above: Performed By: #### C VDTBH #### [facility] [address] [place] [address] Dr. Nancy Montalvo CBC W MANUAL DIFFon 07-22-19 ANISOCYTOSIS 1+ Normal [facility] Comment on above: Performed By: #### C VDTBH #### [facility] [address] [place] [address] Dr. Nancy Montalvo ATYPICAL LYMPH # Normal [facility] Comment on above: Performed By: #### C VDTBH #### [facility] [address] [address] [address] Nancy Montalvo ATYPICAL LYMPH % Normal [facility] Comment on above: Performed By: #### C VDTBH #### [facility] [address] [address] [address] Nancy Montalvo BAND # 0.2 103/ul Normal 0.0-0.3 [facility] Comment on above: Performed By: #### C VDTBH #### [facility] [address] [place] [address] Dr. Nancy Montalvo BAND % 2 % Normal 0-5 [facility] Comment on above: Performed By: #### C VDTBH #### [facility] [address] [place] [address] Dr. Nancy Montalvo BASOM # 0.00 103/ul Normal 0.00-0.10 [facility] Comment on above: Performed By: #### C VDTBH #### [facility] [address] [place] [address] Dr. Nancy Montalvo BASOM % 0.0 % Critically low 0.2-2.0 [facility] Comment on above: Performed By: #### C VDTBH #### [facility] [address] [place] [address] Dr. Nancy Montalvo BLAST # Normal [facility] Comment on above: Performed By: #### C VDTBH #### [facility] [address] [place] [address] Dr. Nancy Montalvo BLAST % Normal [facility] Comment on above: Performed By: #### C VDTBH #### [facility] [address] [place] [address] Dr. Nancy Montalvo CORRECTED WBC Normal 4.0-11.0 [facility] Comment on above: Performed By: #### C VDTBH #### [facility] [address] [place] [address] Dr. Nancy Montalvo EOS # 0.10 103/ul Normal 0.00-0.70 [facility] Comment on above: Performed By: #### C VDTBH #### [facility] [address] [address] [address] Nancy Montalvo EOS% 1.0 % Normal 0.9-7.0 [facility] Comment on above: Performed By: #### C VDTBH #### [facility] [address] [address] [address] Nancy Montalvo GIANT PLATELETS SEEN Normal [facility] Comment on above: Performed By: #### C VDTBH #### [facility] [address] [address] [address] Nancy Montalvo HCT 30.2 % Critically low 36.0-48.0 [facility] Comment on above: Performed By: #### C VDTBH #### [facility] [address] [place] [address] Dr. Nancy Montalvo HGB 9.7 g/dl Critically low 12.0-16.0 [facility] Comment on above: Performed By: #### C VDTBH #### [facility] [address] [place] [address] Dr. Nancy Montalvo LYMPHM # 1.72 103/ul Normal 1.20-3.80 [facility] Comment on above: Performed By: #### C VDTBH #### [facility] [address] [place] [address] Dr. Nancy Montalvo LYMPHM% 17.0 % Critically low 20.5-60.0 [facility] Comment on above: Performed By: #### C VDTBH #### [facility] [address] [place] [address] Dr. Nacny Montalvo MCH 31.5 pg Normal 26.7-34.0 [facility] Comment on above: Performed By: #### C VDTBH #### [facility] [address] [place] [address] Dr. Nancy Montalvo MCHC 32.1 g/dl Normal 29.9-35.2 [facility] Comment on above: Performed By: #### C VDTBH #### [facility] [address] [place] [address] Dr. Nancy Montalvo MCV 98.1 fL Normal 81.0-99.0 [facility] Comment on above: Performed By: #### C VDTBH #### [facility] [address] [place] [address] Dr. Nancy Montalvo METAMYELOCYTE # Normal [facility] Comment on above: Performed By: #### C VDTBH #### [facility] [address] [place] [address] Dr. Nancy Montalvo METAMYELOCYTE % Normal [facility] Comment on above: Performed By: #### C VDTBH #### [facility] [address] [place] [address] Dr. Nancy Montalvo MONOM# 0.61 103/ul Normal 0.30-0.80 [facility] Comment on above: Performed By: #### C VDTBH #### [facility] [address] [place] [address] Dr. Nancy Montalvo MONOM% 6.0 % Normal 1.7-12.0 [facility] Comment on above: Performed By: #### C VDTBH #### [facility] [address] [place] [address] Dr. Nancy Montalvo MPV 11.3 fL Normal 9.5-13.5 [facility] Comment on above: Performed By: #### C VDTBH #### [facility] [address] [place] [address] Dr. Nancy Montalvo MYELOCYTE # Normal [facility] Comment on above: Performed By: #### C VDTBH #### [facility] [address] [place] [address] Dr. Nancy Montalvo MYELOCYTE % Normal [facility] Comment on above: Performed By: #### C VDTBH #### [facility] [address] [place] [address] Dr. Nancy Montalvo NRBC Normal [facility] Comment on above: Performed By: #### C VDTBH #### [facility] [address] [place] [address] Dr. Nancy Montalvo OVALOCYTES SLIGHT Normal [facility] Comment on above: Performed By: #### C VDTBH #### [facility] [address] [address] [address] Nancy Montalvo PLT 277 103/ul Normal 150-450 [facility] Comment on above: Performed By: #### C VDTBH #### [facility] [address] [address] [address] Nancy Montalvo POIKILOCYTOSIS SLIGHT Normal [facility] Comment on above: Performed By: #### C VDTBH #### [facility] [address] [address] [address] Nancy Montalvo RBC 3.08 106/ul Critically low 4.20-5.40 [facility] Comment on above: Performed By: #### C VDTBH #### [facility] [address] [place] [address] Dr. Nancy Montalvo RDW 15.8 % Critically high 11.0-15.0 [facility] Comment on above: Performed By: #### C VDTBH #### [facility] [address] [place] [address] Dr. Nancy Montalvo SEG # 7.47 103/ul Critically high 1.40-6.50 [facility] Comment on above: Performed By: #### C VDTBH #### [facility] [address] [place] [address] Dr. Nancy Montalvo SEG % 74.0 % Normal 43.0-75.0 [facility] Comment on above: Performed By: #### C VDTBH #### [facility] [address] [place] [address] Dr. Nancy Montalvo TEAR DROP CELLS SLIGHT Normal [facility] Comment on above: Performed By: #### C VDTBH #### [facility] [address] [place] [address] Dr. Nancy Montalvo WBC 10.1 103/ul Normal 4.0-11.0 [facility] Comment on above: Performed By: #### C VDTBH #### [facility] [address] [place] [address] Dr. Nancy Montalvo CULTURE URINEon 07-21-2022 CULTURE URINE Culture Observations : NO GROWTH. Normal [facility] Comment on above: Performed By: #### A #### [facility] [address] [place] [address] Dr. Nancy Montalvo PROF 14(COMP METB)on 023 Albumin [Mass/Vol] 1.6 g/dL Critically low 3.4-5.0 [facility] Comment on above: Performed By: #### C VDTBH #### [facility] [address] [place] [address] Dr. Nancy Montalvo Albumin/Globulin [Mass ratio] 0.4 {ratio} Normal [facility] Comment on above: Performed By: #### C VDTBH #### [facility] [address] [place] [address] Dr. Nancy Montalvo ALP [Catalytic activity/Vol] 112 U/L Normal 46-116 [facility] Comment on above: Performed By: #### C VDTBH #### [facility] [address] [place] [address] Dr. Nancy Montalvo ALT [Catalytic activity/Vol] 36 U/L Normal 14-59 [facility] Comment on above: Performed By: #### C VDTBH #### [facility] [address] [place] [address] Dr. Nancy Montalvo Anion gap [Moles/Vol] 12.2 mmol/L Normal [facility] Comment on above: Performed By: #### C VDTBH #### [facility] [address] [place] [address] Dr. Nancy Montalvo AST [Catalytic activity/Vol] 29 U/L Normal 15-37 [facility] Comment on above: Performed By: #### C VDTBH #### [facility] [address] [place] [address] Dr. Nancy Montalvo Bilirubin [Mass/Vol] 0.2 mg/dL Normal 0.2-1.0 [facility] Comment on above: Performed By: #### C VDTBH #### [facility] [address] [address] [address] Nancy Montalvo Calcium [Mass/Vol] 8.2 mg/dL Critically low 8.5-10.1 [facility] Comment on above: Performed By: #### C VDTBH #### [facility] [address] [place] [address] Dr. Nancy Montalvo Chloride [Moles/Vol] 110 mmol/L Critically high 98-107 [facility] Comment on above: Performed By: #### C VDTBH #### [facility] [address] [place] [address] Dr. Nancy Montalvo CO2 [Moles/Vol] 21.1 mmol/L Normal 21.0-32.0 [facility] Comment on above: Performed By: #### C VDTBH #### [facility] [address] [place] [address] Dr. Nancy Montalvo Creatinine [Mass/Vol] 1.83 mg/dL Critically high 0.55-1.02 [facility] Comment on above: Performed By: #### C VDTBH #### [facility] [address] [place] [address] Dr. Nancy Montalvo EGFR-AF MALAGASY 32 mL/min/1.73m2 Critically low >=60 [facility] Comment on above: Performed By: #### C VDTBH #### [facility] [address] [place] [address] Dr. Nancy Montalvo EGFR-NON AF MALAGASY 26 mL/min/1.73m2 Critically low >=60 [facility] Comment on above: Performed By: #### C VDTBH #### [facility] [address] [place] [address] Dr. Nancy Montalvo Globulin (S) [Mass/Vol] 3.9 g/dL Normal [facility] Comment on above: Performed By: #### C VDTBH #### [facility] [address] [place] [address] Dr. Nancy Montalvo Glucose [Mass/Vol] 123 mg/dL Critically high 74-106 [facility] Comment on above: Performed By: #### C VDTBH #### [facility] [address] [address] [address] Nancy Montalvo Potassium [Moles/Vol] 3.3 mmol/L Critically low 3.5-5.1 [facility] Comment on above: Performed By: #### C VDTBH #### [facility] [address] [place] [address] Dr. Nancy Montalvo Protein [Mass/Vol] 5.5 g/dL Critically low 6.4-8.2 Th [facility] Comment on above: Performed By: #### C VDTBH #### [facility] [address] [place] [address] Dr. Nancy Montalvo Sodium [Moles/Vol] 140 mmol/L Normal 136-145 [facility] Comment on above: Performed By: #### C VDTBH #### [facility] [address] [place] [address] Dr. Nancy Montalvo Urea nitrogen [Mass/Vol] 27.0 mg/dL Critically high 7.0-18.0 [facility] Comment on above: Performed By: #### C VDTBH #### [facility] [address] [place] [address] Dr. Nancy Montalvo Urea nitrogen/Creatinine [Mass ratio] 14.8 mg/mg Normal [facility] Comment on above: Performed By: #### C VDTBH #### [facility] [address] [place] [address] Dr. Nancy Montalvo PROTIMEon 07-21-2022 INR Coag (PPP) [Relative time] 3.20 {INR} Normal [facility] Comment on above: Performed By: #### P OCGLUC #### [facility] [address] [place] [address] Dr. Nancy Montalvo INR GUIDELINES SEE BELOW Normal [facility] Comment on above: Result Comment: ADITYA RED INR: 2.0 - 3.0 CONDITIONS NOT LISTED BELOW 2.5 - 3.5 FOR PROSTHETIC HEART VALVE REPLACEMENT 2.5 - 3.5 RECURRENT THROMBOSIS Performed By: #### P OCGLUC #### [facility] [address] [place] [address] Dr. Nancy Montalvo PT Coag (PPP) [Time] 31.8 s Critically high 9.0-11.6 [facility] Comment on above: Performed By: #### P OCGLUC #### [facility] [address] [place] [address] Dr. Nancy Montalvo UA (CLEAN/CATCH) ELECTRO MECHANICAL ENGINEER/MICRO I F IND.on 07-21-2022 Bilirubin Ql (U) Negative Normal NEGATIVE [facility] Comment on above: Performed By: #### C MP #### [facility] [address] [place] [address] Dr. Nancy Montalvo Clarity (U) CLEAR Normal CLEAR [facility] Comment on above: Performed By: #### C MP #### [facility] [address] [place] [address] Dr. Nancy Montalvo Color (U) LT. YELLOW Normal YELLOW [facility] Comment on above: Performed By: #### C MP #### [facility] [address] [place] [address] Dr. Nancy Montalvo Glucose Ql (U) 500 mg/dl Abnormal NEGATIVE [facility] Comment on above: Performed By: #### C MP #### [facility] [address] [place] [address] Dr. Nancy Montalvo Hemoglobin Ql (U) TRACE-INTACT Abnormal NEGATIVE [facility] Comment on above: Performed By: #### C MP #### [facility] [address] [place] [address] Dr. Nancy Montalvo Ketones Ql (U) Negative Normal NEGATIVE [facility] Comment on above: Performed By: #### C MP #### [facility] [address] [place] [address] Dr. Nancy Montalvo LEUKOCYTES LARGE Abnormal NEGATIVE [facility] Comment on above: Performed By: #### C MP #### [facility] [address] [place] [address] Dr. Nancy Montalvo Nitrite Ql (U) Negative Normal NEGATIVE [facility] Comment on above: Performed By: #### C MP #### [facility] [address] [place] [address] Dr. Nancy Montalvo pH (U) 5.5 [pH] Normal 5-9 [facility] Comment on above: Performed By: #### C MP #### [facility] [address] [place] [address] Dr. Nancy Montalvo SPEC GRAVITY 1.010 Normal 1.005-<=1.0 25 [facility] Comment on above: Performed By: #### C MP #### [facility] [address] [place] [address] Dr. Nancy Montalvo UA PROTEIN 30 mg/dl Abnormal NEGATIVE/ TRACE [facility] Comment on above: Performed By: #### C MP #### [facility] [address] [place] [address] Dr. Nancy Montalvo UR MICRO IND INDICATED Normal [facility] Comment on above: Performed By: #### C MP #### [facility] [address] [place] [address] Dr. Nancy Montalvo Urobilinogen Qn (U) 0.2 {Grant'U}/dL Normal 0.2 - 1. 0 [facility] Comment on above: Performed By: #### C MP #### [facility] [address] [place] [address] Dr. Nancy Montalvo URINE MICROSCOPIC ONLYon BACTERIA MODERATE Abnormal NONE SEEN [facility] Comment on above: Performed By: #### C MP #### [facility] [address] [place] [address] Dr. Nancy Montalvo Bacteria identified Cx Nom (U) INDICATED Normal [facility] Comment on above: Performed By: #### C MP #### [facility] [address] [place] [address] Dr. Nancy Montalvo CAST NONE SEEN Normal NONE SEEN [facility] Comment on above: Performed By: #### C MP #### [facility] [address] [place] [address] Dr. Nancy Montalvo Crystals LM Nom (Urine sed) NONE SEEN Normal NONE SEEN [facility] Comment on above: Performed By: #### C MP #### [facility] [address] [place] [address] Dr. Nancy Montalvo Epithelial cells LM Ql (Urine sed) FEW Abnormal NONE SEEN /RARE [facility] Comment on above: Performed By: #### C MP #### [facility] [address] [place] [address] Dr. Nancy Montalvo MUCOUS NONE SEEN Normal NONE SEEN [facility] Comment on above: Performed By: #### C MP #### [facility] [address] [place] [address] Dr. Nancy Montalvo RBC 2-5 Abnormal 0-2 [facility] Comment on above: Performed By: #### C MP #### [facility] [address] [place] [address] Dr. Nancy Montalvo WBC (U) [#/Vol] /uL Abnormal NONE SEEN [facility] Comment on above: Performed By: #### C MP #### [facility] [address] [place] [address] Dr. Nancy Montalvo YEAST PRESENT Abnormal NONE SEEN [facility] Comment on above: Performed By: #### C MP #### [facility] [address] [place] [address] Dr. Nancy Montalvo PROTIMEon 07-19-2022 INR Coag (PPP) [Relative time] 8.00 {INR} Critically high [facility] Comment on above: Performed By: #### P OCGLUC #### [facility] [address] [place] [address] Dr. Nancy Montalvo INR GUIDELINES SEE BELOW Normal [facility] Comment on above: Result Comment: ADITYA RED INR: 2.0 - 3.0 CONDITIONS NOT LISTED BELOW 2.5 - 3.5 FOR PROSTHETIC HEART VALVE REPLACEMENT 2.5 - 3.5 RECURRENT THROMBOSIS Performed By: #### P OCGLUC #### [facility] [address] [place] [address] Dr. Nancy Montalvo PT Coag (PPP) [Time] 90.0 s Critically high 9.0-11.6 [facility] Comment on above: Performed By: #### P OCGLUC #### [facility] [address] [place] [address] Dr. Nancy Montalvo CBC AUTO DIFFon 07-14-2022 BASO # 0.0 103/ul Normal 0.0-0.1 [facility] Comment on above: Performed By: #### P OCGLUC #### [facility] [address] [address] [address] Nancy Montalvo Basophils/100 WBC (Bld) 0.2 % Normal 0.2-2.0 [facility] Comment on above: Performed By: #### P OCGLUC #### [facility] [address] [address] [address] Nancy Montalvo EO # 0.1 103/ul Normal 0.0-0.7 [facility] Comment on above: Performed By: #### P OCGLUC #### [facility] [address] [place] [address] Dr. Nancy Montalvo Eosinophils/100 WBC (Bld) 0.4 % Critically low 0.9-7.0 [facility] Comment on above: Performed By: #### P OCGLUC #### [facility] [address] [address] [address] Nancy Montalvo Erythrocyte distribution width (RBC) [Ratio] 14.0 % Normal 11.0-15.0 [facility] Comment on above: Performed By: #### P OCGLUC #### [facility] [address] [place] [address] Dr. Nancy Montalvo Hematocrit (Bld) [Volume fraction] 30.8 % Critically low 36.0-48.0 [facility] Comment on above: Performed By: #### P OCGLUC #### [facility] [address] [place] [address] Dr. Nancy Montalvo Hemoglobin (Bld) [Mass/Vol] 9.5 g/dL Critically low 12.0-16.0 [facility] Comment on above: Performed By: #### P OCGLUC #### [facility] [address] [place] [address] Dr. Nancy Montalvo IG # 0.17 10e3/ul Critically high 0.00-0.03 [facility] Comment on above: Performed By: #### P OCGLUC #### [facility] [address] [address] [address] Nancy Montalvo IG % 1.3 % Critically high 0.0-0.5 [facility] Comment on above: Performed By: #### P OCGLUC #### [facility] [address] [address] [address] Nancy Montalvo LYMPH # 1.4 103/ul Normal 1.2-3.8 [facility] Comment on above: Performed By: #### P OCGLUC #### [facility] [address] [address] [address] Nancy Montalvo Lymphocytes/100 WBC (Bld) 10.7 % Critically low 20.5-60.0 [facility] Comment on above: Performed By: #### P OCGLUC #### [facility] [address] [place] [address] Dr. Nancy Montalvo MANUAL DIFF REQ NO Normal [facility] Comment on above: Performed By: #### P OCGLUC #### [facility] [address] [address] [address] Nancy Montalvo MCH (RBC) [Entitic mass] 30.5 pg Normal 26.7-34.0 [facility] Comment on above: Performed By: #### P OCGLUC #### [facility] [address] [place] [address] Dr. Nancy Montalvo MCHC (RBC) [Mass/Vol] 30.8 g/dL Normal 29.9-35.2 [facility] Comment on above: Performed By: #### P OCGLUC #### [facility] [address] [place] [address] Dr. Nancy Montalvo MCV (RBC) [Entitic vol] 99.0 fL Normal 81.0-99.0 [facility] Comment on above: Performed By: #### P OCGLUC #### [facility] [address] [place] [address] Dr. Nancy Montalvo MONO # 0.6 103/ul Normal 0.3-0.8 [facility] Comment on above: Performed By: #### P OCGLUC #### [facility] [address] [address] [address] Nancy Montalvo Monocytes/100 WBC (Bld) 5.0 % Normal 1.7-12.0 [facility] Comment on above: Performed By: #### P OCGLUC #### [facility] [address] [address] [address] Nancy Montalvo NEUT # 10.4 103/ul Critically high 1.4-6.5 [facility] Comment on above: Performed By: #### P OCGLUC #### [facility] [address] [address] [address] Nancy Montalvo Neutrophils/100 WBC (Bld) 82.4 % Critically high 43.0-75.0 [facility] Comment on above: Performed By: #### P OCGLUC #### [facility] [address] [place] [address] Dr. Nancy Montalvo Platelet mean volume (Bld) [Entitic vol] 11.9 fL Normal 9.5-13.5 [facility] Comment on above: Performed By: #### P OCGLUC #### [facility] [address] [address] [address] Nancy Montalvo PLT 136 103/ul Critically low 150-450 [facility] Comment on above: Performed By: #### P OCGLUC #### [facility] [address] [place] [address] Dr. Nancy Montalvo RBC 3.11 106/ul Critically low 4.20-5.40 [facility] Comment on above: Performed By: #### P OCGLUC #### [facility] [address] [place] [address] Dr. Nancy Montalvo WBC 12.7 103/ul Critically high 4.0-11.0 [facility] Comment on above: Performed By: #### P OCGLUC #### [facility] [address] [place] [address] Dr. Nancy Montalvo PROF 14(COMP METB)on 023 Albumin [Mass/Vol] 1.7 g/dL Critically low 3.4-5.0 [facility] Comment on above: Performed By: #### B [id number] #### [facility] [address] [address] [address] Nancy Montalvo Albumin/Globulin [Mass ratio] 0.5 {ratio} Normal [facility] Comment on above: Performed By: #### B [id number] #### [facility] [address] [address] [address] Nancy Montalvo ALP [Catalytic activity/Vol] 97 U/L Normal 46-116 [facility] Comment on above: Performed By: #### B [id number] #### [facility] [address] [address] [address] Nancy Montalvo ALT [Catalytic activity/Vol] 65 U/L Critically high 14-59 [facility] Comment on above: Performed By: #### B [id number] #### [facility] [address] [place] [address] Dr. Nancy Montalvo Anion gap [Moles/Vol] 15.2 mmol/L Normal [facility] Comment on above: Performed By: #### B [id number] #### [facility] [address] [place] [address] Dr. Nancy Montalvo AST [Catalytic activity/Vol] 28 U/L Normal 15-37 [facility] Comment on above: Performed By: #### B [id number] #### [facility] [address] [place] [address] Dr. Nancy Montalvo Bilirubin [Mass/Vol] 0.4 mg/dL Normal 0.2-1.0 [facility] Comment on above: Performed By: #### B [id number] #### [facility] [address] [place] [address] Dr. Nancy Montalvo Calcium [Mass/Vol] 8.4 mg/dL Critically low 8.5-10.1 [facility] Comment on above: Performed By: #### B [id number] #### [facility] [address] [address] [address] Nancy Montalvo Chloride [Moles/Vol] 108 mmol/L Critically high 98-107 [facility] Comment on above: Performed By: #### B [id number] #### [facility] [address] [address] [address] Nancy Montalvo CO2 [Moles/Vol] 24.6 mmol/L Normal 21.0-32.0 [facility] Comment on above: Performed By: #### B [id number] #### [facility] [address] [address] [address] Nancy Montalvo Creatinine [Mass/Vol] 2.22 mg/dL Critically high 0.55-1.02 [facility] Comment on above: Performed By: #### B [id number] #### [facility] [address] [address] [address] Nancy Montalvo EGFR-AF MALAGASY 25 mL/min/1.73m2 Critically low >=60 [facility] Comment on above: Performed By: #### B [id number] #### [facility] [address] [place] [address] Dr. Nancy Montalvo EGFR-NON AF MALAGASY 21 mL/min/1.73m2 Critically low >=60 [facility] Comment on above: Performed By: #### B [id number] #### [facility] [address] [address] [address] Nancy Montalvo Globulin (S) [Mass/Vol] 3.4 g/dL Normal [facility] Comment on above: Performed By: #### B [id number] #### [facility] [address] [address] [address] Nancy Montalvo Glucose [Mass/Vol] 86 mg/dL Normal 74-106 [facility] Comment on above: Performed By: #### B [id number] #### [facility] [address] [address] [address] Nancy Montalvo Potassium [Moles/Vol] 3.8 mmol/L Normal 3.5-5.1 [facility] Comment on above: Performed By: #### B [id number] #### [facility] [address] [address] [address] Nancy Montalvo Protein [Mass/Vol] 5.1 g/dL Critically low 6.4-8.2 Th [facility] Comment on above: Performed By: #### B [id number] #### [facility] [address] [address] [address] Nancy Montalvo Sodium [Moles/Vol] 144 mmol/L Normal 136-145 [facility] Comment on above: Performed By: #### B [id number] #### [facility] [address] [place] [address] Dr. Nancy Montalvo Urea nitrogen [Mass/Vol] 34.0 mg/dL Critically high 7.0-18.0 [facility] Comment on above: Performed By: #### B [id number] #### [facility] [address] [place] [address] Dr. Nancy Montalvo Urea nitrogen/Creatinine [Mass ratio] 15.3 mg/mg Normal [facility] Comment on above: Performed By: #### B [id number] #### [facility] [address] [place] [address] Dr. Nancy Montalvo PROTIMEon 07-14-2022 INR Coag (PPP) [Relative time] 3.39 {INR} Normal [facility] Comment on above: Performed By: #### P OCGLUC #### [facility] [address] [place] [address] Dr. Nancy Montalvo INR GUIDELINES SEE BELOW Normal [facility] Comment on above: Result Comment: ADITYA RED INR: 2.0 - 3.0 CONDITIONS NOT LISTED BELOW 2.5 - 3.5 FOR PROSTHETIC HEART VALVE REPLACEMENT 2.5 - 3.5 RECURRENT THROMBOSIS Performed By: #### P OCGLUC #### [facility] [address] [place] [address] Dr. Nancy Montalvo PT Coag (PPP) [Time] 33.5 s Critically high 9.0-11.6 [facility] Comment on above: Performed By: #### P OCGLUC #### [facility] [address] [place] [address] Dr. Nancy Montalvo CBC AUTO DIFFon 07-13-2022 BASO # 0.0 103/ul Normal 0.0-0.1 [facility] Comment on above: Performed By: #### P OCGLUC #### [facility] [address] [address] [address] Nancy Montalvo Basophils/100 WBC (Bld) 0.3 % Normal 0.2-2.0 [facility] Comment on above: Performed By: #### P OCGLUC #### [facility] [address] [address] [address] Nancy Montalvo EO # 0.1 103/ul Normal 0.0-0.7 [facility] Comment on above: Performed By: #### P OCGLUC #### [facility] [address] [address] [address] Nancy Montalvo Eosinophils/100 WBC (Bld) 0.4 % Critically low 0.9-7.0 [facility] Comment on above: Performed By: #### P OCGLUC #### [facility] [address] [place] [address] Dr. Nancy Montalvo Erythrocyte distribution width (RBC) [Ratio] 13.4 % Normal 11.0-15.0 [facility] Comment on above: Performed By: #### P OCGLUC #### [facility] [address] [address] [address] Nancy Montalvo Hematocrit (Bld) [Volume fraction] 29.9 % Critically low 36.0-48.0 [facility] Comment on above: Performed By: #### P OCGLUC #### [facility] [address] [place] [address] Dr. Nancy Montalvo Hemoglobin (Bld) [Mass/Vol] 9.5 g/dL Critically low 12.0-16.0 [facility] Comment on above: Performed By: #### P OCGLUC #### [facility] [address] [address] [address] Nancy Montalvo IG # 0.16 10e3/ul Critically high 0.00-0.03 [facility] Comment on above: Performed By: #### P OCGLUC #### [facility] [address] [place] [address] Dr. Nancy Montalvo IG % 1.4 % Critically high 0.0-0.5 [facility] Comment on above: Performed By: #### P OCGLUC #### [facility] [address] [address] [address] Nancy Montalvo LYMPH # 1.0 103/ul Critically low 1.2-3.8 [facility] Comment on above: Performed By: #### P OCGLUC #### [facility] [address] [address] [address] Nancy Montalvo Lymphocytes/100 WBC (Bld) 8.4 % Critically low 20.5-60.0 [facility] Comment on above: Performed By: #### P OCGLUC #### [facility] [address] [address] [address] Nancy Montalvo MANUAL DIFF REQ NO Normal [facility] Comment on above: Performed By: #### P OCGLUC #### [facility] [address] [address] [address] Nancy Montalvo MCH (RBC) [Entitic mass] 31.3 pg Normal 26.7-34.0 [facility] Comment on above: Performed By: #### P OCGLUC #### [facility] [address] [address] [address] Nancy Montalvo MCHC (RBC) [Mass/Vol] 31.8 g/dL Normal 29.9-35.2 [facility] Comment on above: Performed By: #### P OCGLUC #### [facility] [address] [address] [address] Nancy Montalvo MCV (RBC) [Entitic vol] 98.4 fL Normal 81.0-99.0 [facility] Comment on above: Performed By: #### P OCGLUC #### [facility] [address] [address] [address] Nancy Montalvo MONO # 0.4 103/ul Normal 0.3-0.8 [facility] Comment on above: Performed By: #### P OCGLUC #### [facility] [address] [address] [address] Nancy Montalvo Monocytes/100 WBC (Bld) 3.7 % Normal 1.7-12.0 [facility] Comment on above: Performed By: #### P OCGLUC #### [facility] [address] [address] [address] Nancy Montalvo NEUT # 10.1 103/ul Critically high 1.4-6.5 [facility] Comment on above: Performed By: #### P OCGLUC #### [facility] [address] [address] [address] Nancy Montalvo Neutrophils/100 WBC (Bld) 85.8 % Critically high 43.0-75.0 [facility] Comment on above: Performed By: #### P OCGLUC #### [facility] [address] [address] [address] Nancy Montalvo Platelet mean volume (Bld) [Entitic vol] 12.3 fL Normal 9.5-13.5 [facility] Comment on above: Performed By: #### P OCGLUC #### [facility] [address] [address] [address] Nancy Montalvo PLT 119 103/ul Critically low 150-450 [facility] Comment on above: Performed By: #### P OCGLUC #### [facility] [address] [address] [address] Nancy Montalvo RBC 3.04 106/ul Critically low 4.20-5.40 [facility] Comment on above: Performed By: #### P OCGLUC #### [facility] [address] [address] [address] Nancy Montalvo WBC 11.7 103/ul Critically high 4.0-11.0 [facility] Comment on above: Performed By: #### P OCGLUC #### [facility] [address] [address] [address] Nancy Montalvo POINT OF CARE GLUCOSEon 06-18 Glucose [Mass/Vol] 143 mg/dL Critically high 74-106 [facility] Comment on above: Performed By: #### U AMIC #### [facility] [address] [address] [address] Nancy Montalvo PROF 14(COMP METB)on 023 Albumin [Mass/Vol] 1.6 g/dL Critically low 3.4-5.0 Th [facility] Comment on above: Performed By: #### C VDTBH #### [facility] [address] [place] [address] Dr. Nancy Montalvo Albumin/Globulin [Mass ratio] 0.5 {ratio} Normal [facility] Comment on above: Performed By: #### C VDTBH #### [facility] [address] [place] [address] Dr. Nancy Montalvo ALP [Catalytic activity/Vol] 102 U/L Normal 46-116 [facility] Comment on above: Performed By: #### C VDTBH #### [facility] [address] [place] [address] Dr. Nancy Montalvo ALT [Catalytic activity/Vol] 79 U/L Critically high 14-59 [facility] Comment on above: Performed By: #### C VDTBH #### [facility] [address] [place] [address] Dr. Nancy Montalvo Anion gap [Moles/Vol] 13.1 mmol/L Normal [facility] Comment on above: Performed By: #### C VDTBH #### [facility] [address] [place] [address] Dr. Nancy Montalvo AST [Catalytic activity/Vol] 31 U/L Normal 15-37 [facility] Comment on above: Performed By: #### C VDTBH #### [facility] [address] [place] [address] Dr. Nancy Montalvo Bilirubin [Mass/Vol] 0.4 mg/dL Normal 0.2-1.0 [facility] Comment on above: Performed By: #### C VDTBH #### [facility] [address] [place] [address] Dr. Nancy Montalvo Calcium [Mass/Vol] 8.1 mg/dL Critically low 8.5-10.1 [facility] Comment on above: Performed By: #### C VDTBH #### [facility] [address] [place] [address] Dr. Nancy Montalvo Chloride [Moles/Vol] 108 mmol/L Critically high 98-107 [facility] Comment on above: Performed By: #### C VDTBH #### [facility] [address] [place] [address] Dr. Nancy Montalvo CO2 [Moles/Vol] 23.4 mmol/L Normal 21.0-32.0 [facility] Comment on above: Performed By: #### C VDTBH #### [facility] [address] [place] [address] Dr. Nancy Montalvo Creatinine [Mass/Vol] 2.33 mg/dL Critically high 0.55-1.02 [facility] Comment on above: Performed By: #### C VDTBH #### [facility] [address] [place] [address] Dr. Nancy Montalvo EGFR-AF MALAGASY 24 mL/min/1.73m2 Critically low >=60 [facility] Comment on above: Performed By: #### C VDTBH #### [facility] [address] [place] [address] Dr. Nancy Montalvo EGFR-NON AF MALAGASY 20 mL/min/1.73m2 Critically low >=60 [facility] Comment on above: Performed By: #### C VDTBH #### [facility] [address] [place] [address] Dr. Nancy Montalvo Globulin (S) [Mass/Vol] 3.3 g/dL Normal [facility] Comment on above: Performed By: #### C VDTBH #### [facility] [address] [place] [address] Dr. Nancy Montalvo Glucose [Mass/Vol] 107 mg/dL Critically high 74-106 [facility] Comment on above: Performed By: #### C VDTBH #### [facility] [address] [place] [address] Dr. Nancy Montalvo Potassium [Moles/Vol] 3.5 mmol/L Normal 3.5-5.1 [facility] Comment on above: Performed By: #### C VDTBH #### [facility] [address] [place] [address] Dr. Nancy Montalvo Protein [Mass/Vol] 4.9 g/dL Critically low 6.4-8.2 [facility] Comment on above: Performed By: #### C VDTBH #### [facility] [address] [address] [address] Nancy Montalvo Sodium [Moles/Vol] 141 mmol/L Normal 136-145 [facility] Comment on above: Performed By: #### C VDTBH #### [facility] [address] [address] [address] Nancy Montalvo Urea nitrogen [Mass/Vol] 39.0 mg/dL Critically high 7.0-18.0 [facility] Comment on above: Performed By: #### C VDTBH #### [facility] [address] [place] [address] Dr. Nancy Montalvo Urea nitrogen/Creatinine [Mass ratio] 16.7 mg/mg Normal [facility] Comment on above: Performed By: #### C VDTBH #### [facility] [address] [place] [address] Dr. Nancy Montalvo PROTIMEon 07-13-2022 INR Coag (PPP) [Relative time] 1.99 {INR} Normal [facility] Comment on above: Performed By: #### P OCGLUC #### [facility] [address] [place] [address] Dr. Nancy Montalvo INR GUIDELINES SEE BELOW Normal [facility] Comment on above: Result Comment: ADITYA RED INR: 2.0 - 3.0 CONDITIONS NOT LISTED BELOW 2.5 - 3.5 FOR PROSTHETIC HEART VALVE REPLACEMENT 2.5 - 3.5 RECURRENT THROMBOSIS Performed By: #### P OCGLUC #### [facility] [address] [place] [address] Dr. Nancy Montalvo PT Coag (PPP) [Time] 20.3 s Critically high 9.0-11.6 [facility] Comment on above: Performed By: #### P OCGLUC #### [facility] [address] [place] [address] Dr. Nancy Montalvo XR HIP LT 1V [...] is well-seated in the acetabulum. There are xogn-co-rstayoyo degenerative changes of the left hip. There are ukml-au-lgklvgje degenerative changes of the left sacroiliac joint [...] Ban ESCOBEDO Date: 2022-07-12 22:49 Normal [facility] CBC AUTO DIFFon 07-12-2022 BASO # 0.0 103/ul Normal 0.0-0.1 [facility] Comment on above: Performed By: #### U AMIC #### [facility] [address] [address] [address] Nancy Montalvo Basophils/100 WBC (Bld) 0.2 % Normal 0.2-2.0 [facility] Comment on above: Performed By: #### U AMIC #### [facility] [address] [address] [address] Nancy Montalvo EO # 0.1 103/ul Normal 0.0-0.7 [facility] Comment on above: Performed By: #### U AMIC #### [facility] [address] [address] [address] Nancy Montalvo Eosinophils/100 WBC (Bld) 0.8 % Critically low 0.9-7.0 [facility] Comment on above: Performed By: #### U AMIC #### [facility] [address] [address] [address] Nancy Montalvo Erythrocyte distribution width (RBC) [Ratio] 13.2 % Normal 11.0-15.0 [facility] Comment on above: Performed By: #### U AMIC #### [facility] [address] [place] [address] Dr. Nancy Montalvo Hematocrit (Bld) [Volume fraction] 30.7 % Critically low 36.0-48.0 [facility] Comment on above: Performed By: #### U AMIC #### [facility] [address] [place] [address] Dr. Nancy Montalvo Hemoglobin (Bld) [Mass/Vol] 10.0 g/dL Critically low 12.0-16.0 [facility] Comment on above: Performed By: #### U AMIC #### [facility] [address] [place] [address] Dr. Nnacy Montalvo IG # 0.20 10e3/ul Critically high 0.00-0.03 [facility] Comment on above: Performed By: #### U AMIC #### [facility] [address] [place] [address] Dr. Nancy Montalvo IG % 1.5 % Critically high 0.0-0.5 [facility] Comment on above: Performed By: #### U AMIC #### [facility] [address] [place] [address] Dr. Nancy Montalvo LYMPH # 1.2 103/ul Normal 1.2-3.8 [facility] Comment on above: Performed By: #### U AMIC #### [facility] [address] [place] [address] Dr. Nancy Montalvo Lymphocytes/100 WBC (Bld) 8.9 % Critically low 20.5-60.0 [facility] Comment on above: Performed By: #### U AMIC #### [facility] [address] [place] [address] Dr. Nancy Montalvo MANUAL DIFF REQ NO Normal [facility] Comment on above: Performed By: #### U AMIC #### [facility] [address] [address] [address] Nancy Montalvo MCH (RBC) [Entitic mass] 31.6 pg Normal 26.7-34.0 [facility] Comment on above: Performed By: #### U AMIC #### [facility] [address] [place] [address] Dr. Nancy Montalvo MCHC (RBC) [Mass/Vol] 32.6 g/dL Normal 29.9-35.2 [facility] Comment on above: Performed By: #### U AMIC #### [facility] [address] [place] [address] Dr. Nancy Montalvo MCV (RBC) [Entitic vol] 97.2 fL Normal 81.0-99.0 [facility] Comment on above: Performed By: #### U AMIC #### [facility] [address] [place] [address] Dr. Nancy Montalvo MONO # 0.5 103/ul Normal 0.3-0.8 [facility] Comment on above: Performed By: #### U AMIC #### [facility] [address] [place] [address] Dr. Nancy Montalvo Monocytes/100 WBC (Bld) 3.6 % Normal 1.7-12.0 [facility] Comment on above: Performed By: #### U AMIC #### [facility] [address] [place] [address] Dr. Nancy Montalvo NEUT # 11.1 103/ul Critically high 1.4-6.5 [facility] Comment on above: Performed By: #### U AMIC #### [facility] [address] [place] [address] Dr. Nancy Montalvo Neutrophils/100 WBC (Bld) 85.0 % Critically high 43.0-75.0 [facility] Comment on above: Performed By: #### U AMIC #### [facility] [address] [place] [address] Dr. Nancy Montalvo Platelet mean volume (Bld) [Entitic vol] 13.1 fL Normal 9.5-13.5 [facility] Comment on above: Performed By: #### U AMIC #### [facility] [address] [place], [place] [address] Dr. Nancy Montalvo PLT 107 103/ul Critically low 150-450 [facility] Comment on above: Performed By: #### U AMIC #### [facility] [address] [place], [place] [address] Dr. Nancy Montalvo RBC 3.16 106/ul Critically low 4.20-5.40 [facility] Comment on above: Performed By: #### U AMIC #### [facility] [address] [place], [place] [address] Dr. Nancy Montalvo WBC 13.0 103/ul Critically high 4.0-11.0 [facility] Comment on above: Performed By: #### U AMIC #### [facility] [address] [address] [address] Nancy Montalvo CULTURE URINEon 07-12-2022 CULTURE [...] Trimethoprim/Sulfamethoxazo le <=20 S F Normal [facility] Comment on above: Performed By: #### U RCX #### [facility] [address] [address] [address] Nancy Montalvo PROF 14(COMP METB)on 023 Albumin [Mass/Vol] 1.7 g/dL Critically low 3.4-5.0 [facility] Comment on above: Performed By: #### C MP #### [facility] [address] [address] [address] Nancy Montalvo Albumin/Globulin [Mass ratio] 0.5 {ratio} Normal [facility] Comment on above: Performed By: #### C MP #### [facility] [address] [address] [address] Nancy Montalvo ALP [Catalytic activity/Vol] 102 U/L Normal 46-116 [facility] Comment on above: Performed By: #### C MP #### [facility] [address] [address] [address] Nancy Montalvo ALT [Catalytic activity/Vol] 95 U/L Critically high 14-59 [facility] Comment on above: Performed By: #### C MP #### [facility] [address] [address] [address] Nancy Montalvo Anion gap [Moles/Vol] 14.1 mmol/L Normal [facility] Comment on above: Performed By: #### C MP #### [facility] [address] [place] [address] Dr. Nancy Montalvo AST [Catalytic activity/Vol] 15 U/L Normal 15-37 [facility] Comment on above: Performed By: #### C MP #### [facility] [address] [place] [address] Dr. Nancy Montalvo Bilirubin [Mass/Vol] 0.5 mg/dL Normal 0.2-1.0 [facility] Comment on above: Performed By: #### C MP #### [facility] [address] [place] [address] Dr. Nancy Montalvo Calcium [Mass/Vol] 8.2 mg/dL Critically low 8.5-10.1 [facility] Comment on above: Performed By: #### C MP #### [facility] [address] [place] [address] Dr. Nancy Montalvo Chloride [Moles/Vol] 103 mmol/L Normal 98-107 [facility] Comment on above: Performed By: #### C MP #### [facility] [address] [address] [address] Nancy Montalvo CO2 [Moles/Vol] 23.4 mmol/L Normal 21.0-32.0 [facility] Comment on above: Performed By: #### C MP #### [facility] [address] [address] [address] Nancy Montalvo Creatinine [Mass/Vol] 2.68 mg/dL Critically high 0.55-1.02 [facility] Comment on above: Performed By: #### C MP #### [facility] [address] [address] [address] Nancy Montalvo EGFR-AF MALAGASY 20 mL/min/1.73m2 Critically low >=60 [facility] Comment on above: Performed By: #### C MP #### [facility] [address] [address] [address] Nancy Montalvo EGFR-NON AF MALAGASY 17 mL/min/1.73m2 Critically low >=60 [facility] Comment on above: Performed By: #### C MP #### [facility] [address] [address] [address] Nancy Montalvo Globulin (S) [Mass/Vol] 3.1 g/dL Normal [facility] Comment on above: Performed By: #### C MP #### [facility] [address] [address] [address] Nancy Montalvo Glucose [Mass/Vol] 118 mg/dL Critically high 74-106 [facility] Comment on above: Performed By: #### C MP #### [facility] [address] [address] [address] Nancy Montalvo Potassium [Moles/Vol] 3.5 mmol/L Normal 3.5-5.1 [facility] Comment on above: Performed By: #### C MP #### [facility] [address] [address] [address] Nancy Montalvo Protein [Mass/Vol] 4.8 g/dL Critically low 6.4-8.2 [facility] Comment on above: Performed By: #### C MP #### [facility] [address] [address] [address] Nancy Montalvo Sodium [Moles/Vol] 137 mmol/L Normal 136-145 [facility] Comment on above: Performed By: #### C MP #### [facility] [address] [place] [address] Dr. Nancy Montalvo Urea nitrogen [Mass/Vol] 43.0 mg/dL Critically high 7.0-18.0 [facility] Comment on above: Performed By: #### C MP #### [facility] [address] [place] [address] Dr. Nancy Montalvo Urea nitrogen/Creatinine [Mass ratio] 16.0 mg/mg Normal [facility] Comment on above: Performed By: #### C MP #### [facility] [address] [place] [address] Dr. Nancy Montalvo PROTIMEon 07-12-2022 INR Coag (PPP) [Relative time] 2.27 {INR} Normal [facility] Comment on above: Performed By: #### P OCGLUC #### [facility] [address] [place] [address] Dr. Nancy Montalvo INR GUIDELINES SEE BELOW Normal [facility] Comment on above: Result Comment: ADITYA RED INR: 2.0 - 3.0 CONDITIONS NOT LISTED BELOW 2.5 - 3.5 FOR PROSTHETIC HEART VALVE REPLACEMENT 2.5 - 3.5 RECURRENT THROMBOSIS Performed By: #### P OCGLUC #### [facility] [address] [place] [address] Dr. Nancy Montalvo PT Coag (PPP) [Time] 23.0 s Critically high 9.0-11.6 [facility] Comment on above: Performed By: #### P OCGLUC #### [facility] [address] [place] [address] Dr. Nancy Montalvo CBC AUTO DIFFon 07-11-2022 BASO # 0.1 103/ul Normal 0.0-0.1 [facility] Comment on above: Performed By: #### P OCGLUC #### [facility] [address] [place] [address] Dr. Nancy Montalvo Basophils/100 WBC (Bld) 0.3 % Normal 0.2-2.0 [facility] Comment on above: Performed By: #### P OCGLUC #### [facility] [address] [place] [address] Dr. Nancy Montalvo EO # 0.1 103/ul Normal 0.0-0.7 [facility] Comment on above: Performed By: #### P OCGLUC #### [facility] [address] [address] [address] Nancy Montalvo Eosinophils/100 WBC (Bld) 0.3 % Critically low 0.9-7.0 [facility] Comment on above: Performed By: #### P OCGLUC #### [facility] [address] [address] [address] Nancy Montalvo Erythrocyte distribution width (RBC) [Ratio] 13.3 % Normal 11.0-15.0 [facility] Comment on above: Performed By: #### P OCGLUC #### [facility] [address] [place] [address] Dr. Nancy Montalvo Hematocrit (Bld) [Volume fraction] 37.5 % Normal 36.0-48.0 [facility] Comment on above: Performed By: #### P OCGLUC #### [facility] [address] [place] [address] Dr. Nancy Montalvo Hemoglobin (Bld) [Mass/Vol] 11.5 g/dL Critically low 12.0-16.0 [facility] Comment on above: Performed By: #### P OCGLUC #### [facility] [address] [place] [address] Dr. Nancy Montalvo IG # 0.29 10e3/ul Critically high 0.00-0.03 [facility] Comment on above: Performed By: #### P OCGLUC #### [facility] [address] [place] [address] Dr. Nancy Montalvo IG % 1.8 % Critically high 0.0-0.5 [facility] Comment on above: Performed By: #### P OCGLUC #### [facility] [address] [place] [address] Dr. Nancy Montalvo LYMPH # 2.2 103/ul Normal 1.2-3.8 [facility] Comment on above: Performed By: #### P OCGLUC #### [facility] [address] [place], [place] [id number] Dr. Nancy Montalvo Lymphocytes/100 WBC (Bld) 13.2 % Critically low 20.5-60.0 [facility] Comment on above: Performed By: #### P OCGLUC #### [facility] [address] [place] [address] Dr. Nancy Montalvo MANUAL DIFF REQ NO Normal [facility] Comment on above: Performed By: #### P OCGLUC #### [facility] [address] [place] [address] Dr. Nancy Montalvo MCH (RBC) [Entitic mass] 31.3 pg Normal 26.7-34.0 [facility] Comment on above: Performed By: #### P OCGLUC #### [facility] [address] [place] [address] Dr. Nancy Montalvo MCHC (RBC) [Mass/Vol] 30.7 g/dL Normal 29.9-35.2 [facility] Comment on above: Performed By: #### P OCGLUC #### [facility] [address] [place] [address] Dr. Nancy Montalvo MCV (RBC) [Entitic vol] 101.9 fL Critically high 81.0-99.0 [facility] Comment on above: Performed By: #### P OCGLUC #### [facility] [address] [place] [address] Dr. Nancy Montalvo MONO # 0.4 103/ul Normal 0.3-0.8 [facility] Comment on above: Performed By: #### P OCGLUC #### [facility] [address] [place] [address] Dr. Nancy Montalvo Monocytes/100 WBC (Bld) 2.7 % Normal 1.7-12.0 [facility] Comment on above: Performed By: #### P OCGLUC #### [facility] [address] [place] [address] Dr. Nancy Montalvo NEUT # 13.5 103/ul Critically high 1.4-6.5 [facility] Comment on above: Performed By: #### P OCGLUC #### [facility] [address] [place], [place] [id number] Dr. Nancy Montalvo Neutrophils/100 WBC (Bld) 81.7 % Critically high 43.0-75.0 [facility] Comment on above: Performed By: #### P OCGLUC #### [facility] [address] [address] [address] Nancy Montalvo Platelet mean volume (Bld) [Entitic vol] 13.3 fL Normal 9.5-13.5 [facility] Comment on above: Performed By: #### P OCGLUC #### [facility] [address] [address] [address] Nancy Montalvo PLT 104 103/ul Critically low 150-450 [facility] Comment on above: Performed By: #### P OCGLUC #### [facility] [address] [address] [address] Nancy Montalvo RBC 3.68 106/ul Critically low 4.20-5.40 [facility] Comment on above: Performed By: #### P OCGLUC #### [facility] [address] [address] [address] Nancy Montalvo WBC 16.5 103/ul Critically high 4.0-11.0 [facility] Comment on above: Performed By: #### P OCGLUC #### [facility] [address] [address] [address] Nancy Montalvo PROF 14(COMP METB)on 023 Albumin [Mass/Vol] 1.9 g/dL Critically low 3.4-5.0 [facility] Comment on above: Performed By: #### P OCGLUC #### [facility] [address] [address] [address] Nancy Montalvo Albumin/Globulin [Mass ratio] 0.5 {ratio} Normal [facility] Comment on above: Performed By: #### P OCGLUC #### [facility] [address] [place] [address] Dr. Nancy Montalvo ALP [Catalytic activity/Vol] 136 U/L Critically high 46-116 [facility] Comment on above: Performed By: #### P OCGLUC #### [facility] [address] [address] [address] Nancy Montalvo ALT [Catalytic activity/Vol] 144 U/L Critically high 14-59 [facility] Comment on above: Performed By: #### P OCGLUC #### [facility] [address] [address] [address] Nancy Montalvo Anion gap [Moles/Vol] 14.4 mmol/L Normal [facility] Comment on above: Performed By: #### P OCGLUC #### [facility] [address] [address] [address] Nancy Montalvo AST [Catalytic activity/Vol] 37 U/L Normal 15-37 [facility] Comment on above: Performed By: #### P OCGLUC #### [facility] [address] [address] [address] Nancy Montalvo Bilirubin [Mass/Vol] 0.5 mg/dL Normal 0.2-1.0 [facility] Comment on above: Performed By: #### P OCGLUC #### [facility] [address] [address] [address] Nancy Montalvo Calcium [Mass/Vol] 8.4 mg/dL Critically low 8.5-10.1 [facility] Comment on above: Performed By: #### P OCGLUC #### [facility] [address] [address] [address] Nancy Montalvo Chloride [Moles/Vol] 103 mmol/L Normal 98-107 [facility] Comment on above: Performed By: #### P OCGLUC #### [facility] [address] [address] [address] Nancy Montalvo CO2 [Moles/Vol] 22.5 mmol/L Normal 21.0-32.0 [facility] Comment on above: Performed By: #### P OCGLUC #### [facility] [address] [address] [address] Nancy Montalvo Creatinine [Mass/Vol] 2.66 mg/dL Critically high 0.55-1.02 [facility] Comment on above: Performed By: #### P OCGLUC #### [facility] [address] [address] [address] Nancy Montalvo EGFR-AF MALAGASY 21 mL/min/1.73m2 Critically low >=60 [facility] Comment on above: Performed By: #### P OCGLUC #### [facility] [address] [address] [address] Nancy Montalvo EGFR-NON AF MALAGASY 17 mL/min/1.73m2 Critically low >=60 [facility] Comment on above: Performed By: #### P OCGLUC #### [facility] [address] [address] [address] Nancy Montalvo Globulin (S) [Mass/Vol] 3.7 g/dL Normal [facility] Comment on above: Performed By: #### P OCGLUC #### [facility] [address] [address] [address] Nancy Montalvo Glucose [Mass/Vol] 83 mg/dL Normal 74-106 [facility] Comment on above: Performed By: #### P OCGLUC #### [facility] [address] [address] [address] Nancy Montalvo Potassium [Moles/Vol] 3.9 mmol/L Normal 3.5-5.1 [facility] Comment on above: Performed By: #### P OCGLUC #### [facility] [address] [address] [address] Nancy Montalvo Protein [Mass/Vol] 5.6 g/dL Critically low 6.4-8.2 [facility] Comment on above: Performed By: #### P OCGLUC #### [facility] [address] [address] [address] Nancy Montalvo Sodium [Moles/Vol] 136 mmol/L Normal 136-145 [facility] Comment on above: Performed By: #### P OCGLUC #### [facility] [address] [address] [address] Nancy Montalvo Urea nitrogen [Mass/Vol] 40.0 mg/dL Critically high 7.0-18.0 [facility] Comment on above: Performed By: #### P OCGLUC #### [facility] [address] [place] [address] Dr. Nancy Montalvo Urea nitrogen/Creatinine [Mass ratio] 15.0 mg/mg Normal [facility] Comment on above: Performed By: #### P OCGLUC #### [facility] [address] [place] [address] Dr. Nancy Montalvo PROTIMEon 07-11-2022 INR Coag (PPP) [Relative time] 3.29 {INR} Normal [facility] Comment on above: Performed By: #### P OCGLUC #### [facility] [address] [place] [address] Dr. Nancy Montalvo INR GUIDELINES SEE BELOW Normal [facility] Comment on above: Result Comment: ADITYA RED INR: 2.0 - 3.0 CONDITIONS NOT LISTED BELOW 2.5 - 3.5 FOR PROSTHETIC HEART VALVE REPLACEMENT 2.5 - 3.5 RECURRENT THROMBOSIS Performed By: #### P OCGLUC #### [facility] [address] [place] [address] Dr. Nancy Montalvo PT Coag (PPP) [Time] 32.6 s Critically high 9.0-11.6 [facility] Comment on above: Performed By: #### P OCGLUC #### [facility] [address] [place] [address] Dr. Nancy Montalvo PTTon 07-11-2022 aPTT Coag (Bld) [Time] 68.0 s Critically high 22.3-36.2 [facility] Comment on above: Performed By: #### P OCGLUC #### [facility] [address] [place] [address] Dr. Nancy Montalvo CARDIAC DENILSON 3-6on 3 CK [Catalytic activity/Vol] 51 U/L Normal 26-192 [facility] Comment on above: Performed By: #### P OCGLUC #### [facility] [address] [place] [address] Dr. Nancy Montalvo CK.MB [Mass/Vol] 1.01 ng/mL Normal <=3.60 [facility] Comment on above: Performed By: #### P OCGLUC #### [facility] [address] [address] [address] Nancy Montalvo HSTROP 45.8 pg/mL Normal 4.0-51.3 [facility] Comment on above: Result Comment: CUT- OFF POINTS HAVE BEEN ESTABLISHED BASED ON THE FOURTH UNIVERSAL DEFINITIONS OF MYOCARDIAL INFARCTION. THE UPPER REFERENCE LIMIT (URL) OF TROPONIN, DEFINED THE 99TH PERCENTILE OF cTnI DISTRIBUTION IN A REFERENCE POPULATION, HAS BEEN CONFIRMED THE DECISION THRESHOLD FOR AL DIAGNOSIS. Performed By: #### P OCGLUC #### [facility] [address] [address] [address] Nancy Montalvo CK [Catalytic activity/Vol] 54 U/L Normal 26-192 [facility] Comment on above: Performed By: #### P OCGLUC #### [facility] [address] [place] [address] Dr. Nancy Montalvo CK.MB [Mass/Vol] 0.89 ng/mL Normal <=3.60 [facility] Comment on above: Performed By: #### P OCGLUC #### [facility] [address] [place] [address] Dr. Nancy Montalvo HSTROP 58.5 pg/mL Critically high 4.0-51.3 [facility] Comment on above: Result Comment: CUT- OFF POINTS HAVE BEEN ESTABLISHED BASED ON THE FOURTH UNIVERSAL DEFINITIONS OF MYOCARDIAL INFARCTION. THE UPPER REFERENCE LIMIT (URL) OF TROPONIN, DEFINED THE 99TH PERCENTILE OF cTnI DISTRIBUTION IN A REFERENCE POPULATION, HAS BEEN CONFIRMED THE DECISION THRESHOLD FOR AL DIAGNOSIS. Performed By: #### P OCGLUC #### [facility] [address] [place] [address] Dr. Nancy Montalvo CBC AUTO DIFFon 07-10-2022 BASO # 0.1 103/ul Normal 0.0-0.1 [facility] Comment on above: Performed By: #### P OCGLUC #### [facility] [address] [place] [address] Dr. Nancy Montalvo Basophils/100 WBC (Bld) 0.2 % Normal 0.2-2.0 [facility] Comment on above: Performed By: #### P OCGLUC #### [facility] [address] [place] [address] Dr. Nancy Montalvo EO # 0.0 103/ul Normal 0.0-0.7 [facility] Comment on above: Performed By: #### P OCGLUC #### [facility] [address] [address] [address] Nancy Montalvo Eosinophils/100 WBC (Bld) 0.0 % Critically low 0.9-7.0 [facility] Comment on above: Performed By: #### P OCGLUC #### [facility] [address] [place] [address] Dr. Nancy Montalvo Erythrocyte distribution width (RBC) [Ratio] 13.0 % Normal 11.0-15.0 [facility] Comment on above: Performed By: #### P OCGLUC #### [facility] [address] [place] [address] Dr. Nancy Montalvo Hematocrit (Bld) [Volume fraction] 37.6 % Normal 36.0-48.0 [facility] Comment on above: Performed By: #### P OCGLUC #### [facility] [address] [place] [address] Dr. Nancy Montalvo Hemoglobin (Bld) [Mass/Vol] 12.5 g/dL Normal 12.0-16.0 [facility] Comment on above: Performed By: #### P OCGLUC #### [facility] [address] [place] [address] Dr. Nancy Montalvo IG # 0.23 10e3/ul Critically high 0.00-0.03 [facility] Comment on above: Performed By: #### P OCGLUC #### [facility] [address] [place] [address] Dr. Nancy Montalvo IG % 1.1 % Critically high 0.0-0.5 [facility] Comment on above: Performed By: #### P OCGLUC #### [facility] [address] [place] [address] Dr. Nancy Montalvo LYMPH # 1.5 103/ul Normal 1.2-3.8 [facility] Comment on above: Performed By: #### P OCGLUC #### [facility] [address] [place], [place] [id number] Dr. Nancy Montalvo Lymphocytes/100 WBC (Bld) 7.4 % Critically low 20.5-60.0 [facility] Comment on above: Performed By: #### P OCGLUC #### [facility] [address] [place] [address] Dr. Nancy Montalvo MANUAL DIFF REQ NO Normal [facility] Comment on above: Performed By: #### P OCGLUC #### [facility] [address] [place] [address] Dr. Nancy Montalvo MCH (RBC) [Entitic mass] 32.0 pg Normal 26.7-34.0 [facility] Comment on above: Performed By: #### P OCGLUC #### [facility] [address] [place] [address] Dr. Nancy Montalvo MCHC (RBC) [Mass/Vol] 33.2 g/dL Normal 29.9-35.2 [facility] Comment on above: Performed By: #### P OCGLUC #### [facility] [address] [place] [address] Dr. Nancy Montalvo MCV (RBC) [Entitic vol] 96.2 fL Normal 81.0-99.0 [facility] Comment on above: Performed By: #### P OCGLUC #### [facility] [address] [place] [address] Dr. Nancy Montalvo MONO # 0.4 103/ul Normal 0.3-0.8 [facility] Comment on above: Performed By: #### P OCGLUC #### [facility] [address] [place] [address] Dr. Nancy Montalvo Monocytes/100 WBC (Bld) 2.1 % Normal 1.7-12.0 [facility] Comment on above: Performed By: #### P OCGLUC #### [facility] [address] [place] [address] Dr. Nancy Montalvo NEUT # 18.3 103/ul Critically high 1.4-6.5 [facility] Comment on above: Performed By: #### P OCGLUC #### [facility] [address] [place] [address] Dr. Nancy Montalvo Neutrophils/100 WBC (Bld) 89.2 % Critically high 43.0-75.0 [facility] Comment on above: Performed By: #### P OCGLUC #### [facility] [address] [address] [address] Nancy Montalvo Platelet mean volume (Bld) [Entitic vol] 12.9 fL Normal 9.5-13.5 [facility] Comment on above: Performed By: #### P OCGLUC #### [facility] [address] [address] [address] Nancy Montalvo PLT 120 103/ul Critically low 150-450 [facility] Comment on above: Performed By: #### P OCGLUC #### [facility] [address] [address] [address] Nancy Montalvo RBC 3.91 106/ul Critically low 4.20-5.40 [facility] Comment on above: Performed By: #### P OCGLUC #### [facility] [address] [address] [address] Nancy Montalvo WBC 20.5 103/ul Critically high 4.0-11.0 [facility] Comment on above: Performed By: #### P OCGLUC #### [facility] [address] [address] [address] HEAD WO CONon [...] changes. 3. Clear sinuses. Electronically authenticated by: HANNADAVE BAILON Date: 2022-07-10 14:10 Normal [facility] CULTURE BLOODon 07-10-2022 Microscopic examination of blood, culture Culture Observations: NO GROWTH AT 5 DAYS. Normal [facility] Comment on above: Performed By: #### A 1C #### [facility] [address] [place] [address] Dr. Nancy Montalvo Microscopic examination of blood, culture Culture Observations: NO GROWTH AT 5 DAYS. Normal [facility] Comment on above: Performed By: #### B [id number] #### [facility] [address] [place] [address] Dr. Nancy Montalvo [facility] SARS-CoV-2 (COVID-19) RNA MARLENE+probe Ql (Unsp spec) Not detected Normal NOT DETECTED [facility] Comment on above: Result Comment: This test is not yet approved or cleared by the [place] FDA. When there are no FDA-approved or cleared tests available, and other criteria are met, FDA can make tests available under an emergency access mechanism called an Emergency Use Authorization (EUA). The EUA for this test is supported by the [place] of Health and Human Service's (HHS's) declaration [...] SARS-CoV-2. Performed By: #### C VDTBH #### [facility] [address] [place] [id number] Nancy Montalvo ER URINE PROFILEon 3 Bilirubin Ql (U) Negative Normal NEGATIVE [facility] Comment on above: Performed By: #### P OCGLUC #### [facility] [address] [address] [address] Nancy Montalvo Clarity (U) CLEAR Normal CLEAR [facility] Comment on above: Performed By: #### P OCGLUC #### [facility] [address] [address] [address] Nancy Montalvo Color (U) YELLOW Normal YELLOW [facility] Comment on above: Performed By: #### P OCGLUC #### [facility] [address] [address] [address] Nancy Montalvo ERUAHD A micrscopic examina tion will be performed if indicated. Normal [facility] Comment on above: Performed By: #### P OCGLUC #### [facility] [address] [place] [address] Dr. Nancy Montalvo Glucose Ql (U) >1000 Abnormal NEGATIVE [facility] Comment on above: Performed By: #### P OCGLUC #### [facility] [address] [address] [address] Nancy Montalvo Hemoglobin Ql (U) SMALL Abnormal NEGATIVE [facility] Comment on above: Performed By: #### P OCGLUC #### [facility] [address] [place] [address] Dr. Nancy Montalvo Ketones Ql (U) Negative Normal NEGATIVE [facility] Comment on above: Performed By: #### P OCGLUC #### [facility] [address] [place] [address] Dr. Nancy Montalvo LEUKOCYTES Negative Normal NEGATIVE [facility] Comment on above: Performed By: #### P OCGLUC #### [facility] [address] [place] [address] Dr. Nancy Montalvo Nitrite Ql (U) Negative Normal NEGATIVE [facility] Comment on above: Performed By: #### P OCGLUC #### [facility] [address] [place] [address] Dr. Nancy Montalvo pH (U) 5.5 [pH] Normal 5-9 [facility] Comment on above: Performed By: #### P OCGLUC #### [facility] [address] [place] [address] Dr. Nancy Montalvo Protein (U) [Mass/Vol] 30 mg/dL Abnormal NEGATIVE/ TRACE [facility] Comment on above: Performed By: #### P OCGLUC #### [facility] [address] [address] [address] Nancy Montalvo SPEC GRAVITY 1.015 Normal 1.005-<=1.0 25 [facility] Comment on above: Performed By: #### P OCGLUC #### [facility] [address] [address] [address] Nancy Montalvo UR MICRO IND INDICATED Normal [facility] Comment on above: Performed By: #### P OCGLUC #### [facility] [address] [address] [address] Nancy Montalvo Urobilinogen Qn (U) 0.2 {Grant'U}/dL Normal 0.2 - 1. 0 [facility] Comment on above: Performed By: #### P OCGLUC #### [facility] [address] [address] [address] Nancy Montalvo LACTATE/LACTIC ACIDon 2022 Lactate [Moles/Vol] 1.8 mmol/L Normal 0.4-2.0 [facility] Comment on above: Performed By: #### P OCGLUC #### [facility] [address] [place] [address] Dr. Nancy Montalvo Lactate [Moles/Vol] 1.7 mmol/L Normal 0.4-2.0 [facility] Comment on above: Performed By: #### P OCGLUC #### [facility] [address] [place] [address] Dr. Nancy Montalvo MYOGLOBINon 07-10-2022 OLMAN 123 ng/mL Critically high 9-82 [facility] Comment on above: Performed By: #### C MP #### [facility] [address] [address] [address] Nancy Montalvo POINT OF CARE GLUCOSEon 06-18 Glucose [Mass/Vol] 352 mg/dL Critically high 74-106 [facility] Comment on above: Performed By: #### B [id number] #### [facility] [address] [address] [address] Nancy Montalvo Glucose [Mass/Vol] 378 mg/dL Critically high 74-106 [facility] Comment on above: Performed By: #### P OCGLUC #### [facility] [address] [address] [address] Nancy Montalvo PROF CHEM 8 (BAS METB)on Anion gap [Moles/Vol] 12.1 mmol/L Normal [facility] Comment on above: Performed By: #### C MP #### [facility] [address] [address] [address] Nancy Montalvo Calcium [Mass/Vol] 8.3 mg/dL Critically low 8.5-10.1 [facility] Comment on above: Performed By: #### C MP #### [facility] [address] [address] [address] Nancy Montalvo Chloride [Moles/Vol] 101 mmol/L Normal 98-107 [facility] Comment on above: Performed By: #### C MP #### [facility] [address] [address] [address] Nancy Montalvo CO2 [Moles/Vol] 24.6 mmol/L Normal 21.0-32.0 [facility] Comment on above: Performed By: #### C MP #### [facility] [address] [address] [address] Nancy Montalvo Creatinine [Mass/Vol] 2.64 mg/dL Critically high 0.55-1.02 [facility] Comment on above: Performed By: #### C MP #### [facility] [address] [address] [address] Nancy Montalvo EGFR-AF MALAGASY 21 mL/min/1.73m2 Critically low >=60 [facility] Comment on above: Performed By: #### C MP #### [facility] [address] [address] [address] Nancy Montalvo EGFR-NON AF MALAGASY 17 mL/min/1.73m2 Critically low >=60 [facility] Comment on above: Performed By: #### C MP #### [facility] [address] [address] [address] Nancy Montalvo Glucose [Mass/Vol] 368 mg/dL Critically high 74-106 [facility] Comment on above: Performed By: #### C MP #### [facility] [address] [address] [address] Nancy Montalvo Potassium [Moles/Vol] 3.7 mmol/L Normal 3.5-5.1 [facility] Comment on above: Performed By: #### C MP #### [facility] [address] [address] [address] Nancy Montalvo Sodium [Moles/Vol] 134 mmol/L Critically low 136-145 Th [facility] Comment on above: Performed By: #### C MP #### [facility] [address] [address] [address] Nancy Montalvo Urea nitrogen [Mass/Vol] 33.0 mg/dL Critically high 7.0-18.0 [facility] Comment on above: Performed By: #### C MP #### [facility] [address] [address] [address] Nancy Montalvo Urea nitrogen/Creatinine [Mass ratio] 12.5 mg/mg Normal [facility] Comment on above: Performed By: #### C MP #### [facility] [address] [address] [address] Nancy Montalvo PROTIMEon 07-10-2022 INR Coag (PPP) [Relative time] 3.53 {INR} Normal [facility] Comment on above: Performed By: #### P OCGLUC #### [facility] [address] [address] [address] Nancy Montalvo INR GUIDELINES SEE BELOW Normal [facility] Comment on above: Result Comment: ADITYA RED INR: 2.0 - 3.0 CONDITIONS NOT LISTED BELOW 2.5 - 3.5 FOR PROSTHETIC HEART VALVE REPLACEMENT 2.5 - 3.5 RECURRENT THROMBOSIS Performed By: #### P OCGLUC #### [facility] [address] [address] [address] Nancy Montalvo PT Coag (PPP) [Time] 34.8 s Critically high 9.0-11.6 [facility] Comment on above: Performed By: #### P OCGLUC #### [facility] [address] [place] [address] Dr. Nancy Montalvo TROPONIN, HIGH SENSITIVITYon 07-10-2022 HSTROP 61.9 pg/mL Critically high 4.0-51.3 [facility] Comment on above: Result Comment: CUT- OFF POINTS HAVE BEEN ESTABLISHED BASED ON THE FOURTH UNIVERSAL DEFINITIONS OF MYOCARDIAL INFARCTION. THE UPPER REFERENCE LIMIT (URL) OF TROPONIN, DEFINED THE 99TH PERCENTILE OF cTnI DISTRIBUTION IN A REFERENCE POPULATION, HAS BEEN CONFIRMED THE DECISION THRESHOLD FOR AL DIAGNOSIS. Performed By: #### C MP #### [facility] [address] [place] [address] Dr. Nancy Montalvo URINE MICROSCOPIC ONLYon BACTERIA LARGE Abnormal NONE SEEN [facility] Comment on above: Performed By: #### P OCGLUC #### [facility] [address] [place] [address] Dr. Nancy Montalvo Bacteria identified Cx Nom (U) INDICATED Normal [facility] Comment on above: Performed By: #### P OCGLUC #### [facility] [address] [place] [address] Dr. Nancy Montalvo CAST SEEN Abnormal NONE SEEN [facility] Comment on above: Performed By: #### P OCGLUC #### [facility] [address] [place] [address] Dr. Nancy Montalvo Crystals LM Nom (Urine sed) NONE SEEN Normal NONE SEEN [facility] Comment on above: Performed By: #### P OCGLUC #### [facility] [address] [place] [address] Dr. Nancy Montalvo Epithelial cells LM Ql (Urine sed) FEW Abnormal NONE SEEN /RARE [facility] Comment on above: Performed By: #### P OCGLUC #### [facility] [address] [place] [address] Dr. Nancy Montalvo FINE GRANULAR CAST RARE Normal [facility] Comment on above: Performed By: #### P OCGLUC #### [facility] [address] [address] [address] Nancy Montalvo HYALINE CAST RARE Normal [facility] Comment on above: Performed By: #### P OCGLUC #### [facility] [address] [address] [address] Nancy Montalvo MUCOUS NONE SEEN Normal NONE SEEN [facility] Comment on above: Performed By: #### P OCGLUC #### [facility] [address] [address] [address] Nancy Montalvo RBC 10-20 Abnormal 0-2 [facility] Comment on above: Performed By: #### P OCGLUC #### [facility] [address] [address] [address] Nancy Montalvo WBC 10-20 Abnormal NONE SEEN [facility] Comment on above: Performed By: #### P OCGLUC #### [facility] [address] [place] [address] Dr. Nancy Montalvo XR CHEST 1 Von [...] HANNA BAILON Date: 2022-07-10 14:14 Normal [facility] CULTURE URINEon 04-27-2022 CULTURE URINE Isolate 1 [...] Trimethoprim/Sulfamethoxazo le <=20 S F Normal [facility] Comment on above: Performed By: #### A 1C #### [facility] [address] [place] [address] Dr. Nancy Montalvo INSULINon 04-26-2022 Insulin 42.6 uIU/mL Critically high 2.6-24.9 [facility] Comment on above: Performed By: #### A 1C #### [facility] [address] [place] [address] Dr. Nancy Montalvo CBC AUTO DIFFon 04-25-2022 BASO # 0.1 103/ul Normal 0.0-0.1 [facility] Comment on above: Performed By: #### A 1C #### [facility] [address] [place] [address] Dr. Nancy Montalvo Basophils/100 WBC (Bld) 0.5 % Normal 0.2-2.0 [facility] Comment on above: Performed By: #### A 1C #### [facility] [address] [place] [address] Dr. Nancy Montalvo EO # 0.4 103/ul Normal 0.0-0.7 [facility] Comment on above: Performed By: #### A 1C #### [facility] [address] [place] [address] Dr. Nancy Montalvo Eosinophils/100 WBC (Bld) 3.1 % Normal 0.9-7.0 [facility] Comment on above: Performed By: #### A 1C #### [facility] [address] [place] [address] Dr. Nancy Montalvo Erythrocyte distribution width (RBC) [Ratio] 14.6 % Normal 11.0-15.0 [facility] Comment on above: Performed By: #### A 1C #### [facility] [address] [place] [address] Dr. Nancy Montalvo Hematocrit (Bld) [Volume fraction] 39.3 % Normal 36.0-48.0 [facility] Comment on above: Performed By: #### A 1C #### [facility] [address] [place] [address] Dr. Nancy Montalvo Hemoglobin (Bld) [Mass/Vol] 11.9 g/dL Critically low 12.0-16.0 [facility] Comment on above: Performed By: #### A 1C #### [facility] [address] [place] [address] Dr. Nancy Montalvo IG # 0.03 10e3/ul Normal 0.00-0.03 [facility] Comment on above: Performed By: #### A 1C #### [facility] [address] [place] [address] Dr. Nancy Montalvo IG % 0.2 % Normal 0.0-0.5 [facility] Comment on above: Performed By: #### A 1C #### [facility] [address] [place] [address] Dr. Nancy Montalvo LYMPH # 3.6 103/ul Normal 1.2-3.8 [facility] Comment on above: Performed By: #### A 1C #### [facility] [address] [place] [address] Dr. Nancy Montalvo Lymphocytes/100 WBC (Bld) 29.7 % Normal 20.5-60.0 [facility] Comment on above: Performed By: #### A 1C #### [facility] [address] [place], [place] [id number] Dr. Nancy Montalvo MANUAL DIFF REQ NO Normal [facility] Comment on above: Performed By: #### A 1C #### [facility] [address] [place] [address] Dr. Nancy Montalvo MCH (RBC) [Entitic mass] 31.9 pg Normal 26.7-34.0 [facility] Comment on above: Performed By: #### A 1C #### [facility] [address] [place] [address] Dr. Nancy Montalvo MCHC (RBC) [Mass/Vol] 30.3 g/dL Normal 29.9-35.2 [facility] Comment on above: Performed By: #### A 1C #### [facility] [address] [place] [address] Dr. Nancy Montalov MCV (RBC) [Entitic vol] 105.4 fL Critically high 81.0-99.0 [facility] Comment on above: Performed By: #### A 1C #### [facility] [address] [place] [address] Dr. Nancy Montalvo MONO # 0.8 103/ul Normal 0.3-0.8 [facility] Comment on above: Performed By: #### A 1C #### [facility] [address] [place] [address] Dr. Nancy Montalvo Monocytes/100 WBC (Bld) 7.0 % Normal 1.7-12.0 [facility] Comment on above: Performed By: #### A 1C #### [facility] [address] [place] [address] Dr. Nancy Montalvo NEUT # 7.2 103/ul Critically high 1.4-6.5 [facility] Comment on above: Performed By: #### A 1C #### [facility] [address] [place] [address] Dr. Nancy Montalvo Neutrophils/100 WBC (Bld) 59.5 % Normal 43.0-75.0 [facility] Comment on above: Performed By: #### A 1C #### [facility] [address] [place] [address] Dr. Nancy Montalvo Platelet mean volume (Bld) [Entitic vol] 11.5 fL Normal 9.5-13.5 [facility] Comment on above: Performed By: #### A 1C #### [facility] [address] [place] [address] Dr. Nancy Montalvo PLT 241 103/ul Normal 150-450 [facility] Comment on above: Performed By: #### A 1C #### [facility] [address] [place] [address] Dr. Nancy Montalvo RBC 3.73 106/ul Critically low 4.20-5.40 [facility] Comment on above: Performed By: #### A 1C #### [facility] [address] [place] [address] Dr. Nancy Montalvo WBC 12.0 103/ul Critically high 4.0-11.0 [facility] Comment on above: Performed By: #### A 1C #### [facility] [address] [place] [address] Dr. Nancy Montalvo FREE THYROXINE INDEX T7on FTI 2.01 Normal 1.30-4.50 [facility] Comment on above: Performed By: #### B LDCX1 #### [facility] [address] [place] [address] Dr. Nancy Montalvo T3U 33.0 % Normal 30.0-39.0 [facility] Comment on above: Performed By: #### B LDCX1 #### [facility] [address] [place] [address] Dr. Nancy Montalvo T4 [Mass/Vol] 6.10 ug/dL Normal 4.80-13.90 [facility] Comment on above: Performed By: #### B LDCX1 #### [facility] [address] [place] [address] Dr. Nancy Montalvo GLYCOHEMOGLOBIN A1Con 2022 ADA RECOMMENDATION SEE BELOW Normal [facility] Comment on above: Result Comment: ADA RECOMMENDED LIMIT 4.0 - 6.0 ADA THERAPEUTIC TARGET < 7.0 ACTION SUGGESTED > 7.0 Performed By: #### U AMIC #### [facility] [address] [address] [address] Nancy Montalvo Glucose [Mass/Vol] 134 mg/dL Normal [facility] Comment on above: Performed By: #### U AMIC #### [facility] [address] [place] [address] Dr. Nancy Montalvo HbA1c (Bld) [Mass fraction] 6.3 % Critically high 4.5-6.2 [facility] Comment on above: Performed By: #### U AMIC #### [facility] [address] [address] [address] Nancy Montalvo IRONon 04-25-2022 Iron [Mass/Vol] 98.0 ug/dL Normal 50.0-170.0 [facility] Comment on above: Performed By: #### C MP #### [facility] [address] [place] [address] Dr. Nancy Montalvo LIPID PROFILEon 04-25-2022 CHOL-HDL RATIO NORM SEE BELOW Normal [facility] Comment on above: Result Comment: 3.3 - 4.4 LOW RISK 4.4 - 7.1 AVERAGE RISK 7.1 - 11.0 MODERATE RISK >11.0 HIGH RISK Performed By: #### B LDCX1 #### [facility] [address] [place] [address] Dr. Nancy Montalvo Cholesterol [Mass/Vol] 156 mg/dL Normal <=200 [facility] Comment on above: Performed By: #### B LDCX1 #### [facility] [address] [place] [address] Dr. Nancy Montalvo Cholesterol in HDL [Mass/Vol] 55 mg/dL Normal 40-60 [facility] Comment on above: Performed By: #### B LDCX1 #### [facility] [address] [place] [address] Dr. Nancy Montalvo Cholesterol in LDL [Mass/Vol] 74.4 mg/dL Normal [facility] Comment on above: Performed By: #### B LDCX1 #### [facility] [address] [place] [address] Dr. Nancy Montalvo Cholesterol.total/C holesterol in HDL [Mass ratio] 2.8 {ratio} Normal [facility] Comment on above: Performed By: #### B LDCX1 #### [facility] [address] [address] [address] Nancy Montalvo HDL NORMAL > or = 60 mg/dl - LO W CARDIOVASCULAR RISK <40 mg/dl - HIGH CARDIOVASCULAR RISK Normal [facility] Comment on above: Performed By: #### B LDCX1 #### [facility] [address] [address] [address] Nancy Montalvo LDL CALC NORMAL SEE BELOW Normal [facility] Comment on above: Result Comment: <100 mg/dl OPTIMAL 100 - 129 mg/dl NEAR OR ABOVE OPTIMAL 130 - 159 mg/dl BORDERLINE HIGH 160 - 189 mg/dl HIGH >190 mg/dl VERY HIGH Performed By: #### B LDCX1 #### [facility] [address] [address] [address] Nancy Montalvo Triglyceride [Mass/Vol] 133 mg/dL Normal <=150 [facility] Comment on above: Performed By: #### B LDCX1 #### [facility] [address] [address] [address] Nancy Montalvo VLDL CALC 26.6 mg/dL Normal [facility] Comment on above: Performed By: #### B LDCX1 #### [facility] [address] [address] [address] Nancy Montalvo PROF 14(COMP METB)on 023 Albumin [Mass/Vol] 3.5 g/dL Normal 3.4-5.0 [facility] Comment on above: Performed By: #### B LDCX1 #### [facility] [address] [address] [address] Nancy Montalvo Albumin/Globulin [Mass ratio] 0.9 {ratio} Normal [facility] Comment on above: Performed By: #### B LDCX1 #### [facility] [address] [address] [address] Nancy Montalvo ALP [Catalytic activity/Vol] 96 U/L Normal 46-116 [facility] Comment on above: Performed By: #### B LDCX1 #### [facility] [address] [address] [address] Nancy Montalvo ALT [Catalytic activity/Vol] 58 U/L Normal 14-59 [facility] Comment on above: Performed By: #### B LDCX1 #### [facility] [address] [place] [address] Dr. Nancy Montalvo Anion gap [Moles/Vol] 15.4 mmol/L Normal [facility] Comment on above: Performed By: #### B LDCX1 #### [facility] [address] [address] [address] Nancy Montalvo AST [Catalytic activity/Vol] 40 U/L Critically high 15-37 [facility] Comment on above: Performed By: #### B LDCX1 #### [facility] [address] [place] [address] Dr. Nancy Montalvo Bilirubin [Mass/Vol] 0.3 mg/dL Normal 0.2-1.0 [facility] Comment on above: Performed By: #### B LDCX1 #### [facility] [address] [place] [address] Dr. Nancy Montalvo Calcium [Mass/Vol] 9.0 mg/dL Normal 8.5-10.1 [facility] Comment on above: Performed By: #### B LDCX1 #### [facility] [address] [place] [address] Dr. Nancy Montalvo Chloride [Moles/Vol] 107 mmol/L Normal 98-107 [facility] Comment on above: Performed By: #### B LDCX1 #### [facility] [address] [place] [address] Dr. Nancy Montalvo CO2 [Moles/Vol] 23.4 mmol/L Normal 21.0-32.0 [facility] Comment on above: Performed By: #### B LDCX1 #### [facility] [address] [place] [address] Dr. Nancy Montalvo Creatinine [Mass/Vol] 2.70 mg/dL Critically high 0.55-1.02 [facility] Comment on above: Performed By: #### B LDCX1 #### [facility] [address] [address] [address] Nancy Montalvo EGFR-AF MALAGASY 20 mL/min/1.73m2 Critically low >=60 [facility] Comment on above: Performed By: #### B LDCX1 #### [facility] [address] [address] [address] Nancy Montalvo EGFR-NON AF MALAGASY 17 mL/min/1.73m2 Critically low >=60 [facility] Comment on above: Performed By: #### B LDCX1 #### [facility] [address] [address] [address] Nancy Montalvo Globulin (S) [Mass/Vol] 3.9 g/dL Normal [facility] Comment on above: Performed By: #### B LDCX1 #### [facility] [address] [address] [address] Nancy Montalvo Glucose [Mass/Vol] 154 mg/dL Critically high 74-106 [facility] Comment on above: Performed By: #### B LDCX1 #### [facility] [address] [address] [address] Nancy Montalvo Potassium [Moles/Vol] 3.8 mmol/L Normal 3.5-5.1 [facility] Comment on above: Performed By: #### B LDCX1 #### [facility] [address] [address] [address] Nancy Montalvo Protein [Mass/Vol] 7.4 g/dL Normal 6.4-8.2 [facility] Comment on above: Performed By: #### B LDCX1 #### [facility] [address] [address] [address] Nancy Montalvo Sodium [Moles/Vol] 142 mmol/L Normal 136-145 [facility] Comment on above: Performed By: #### B LDCX1 #### [facility] [address] [address] [address] Nancy Montalvo Urea nitrogen [Mass/Vol] 46.0 mg/dL Critically high 7.0-18.0 [facility] Comment on above: Performed By: #### B LDCX1 #### [facility] [address] [place] [address] Dr. Nancy Montalvo Urea nitrogen/Creatinine [Mass ratio] 17.0 mg/mg Normal [facility] Comment on above: Performed By: #### B LDCX1 #### [facility] [address] [place] [address] Dr. Nancy Montalvo TSHon 04-25-2022 TSH 2.035 uIU/mL Normal 0.358-3.740 [facility] Comment on above: Performed By: #### B LDCX1 #### [facility] [address] [place] [address] Dr. Nancy Montalvo UA RANDOM W/MICROSCOPICon BACTERIA MODERATE Abnormal NONE SEEN [facility] Comment on above: Performed By: #### U AMIC #### [facility] [address] [place] [address] Dr. Nancy Montalvo Bilirubin Ql (U) Negative Normal NEGATIVE [facility] Comment on above: Performed By: #### U AMIC #### [facility] [address] [place] [address] Dr. Nancy Montalvo CAST NONE SEEN Normal NONE SEEN [facility] Comment on above: Performed By: #### U AMIC #### [facility] [address] [place] [address] Dr. Nancy Montalvo Clarity (U) CLEAR Normal CLEAR [facility] Comment on above: Performed By: #### U AMIC #### [facility] [address] [place] [address] Dr. Nancy Montalvo Color (U) LT. YELLOW Normal YELLOW [facility] Comment on above: Performed By: #### U AMIC #### [facility] [address] [place] [address] Dr. Nancy Montalvo Crystals LM Nom (Urine sed) NONE SEEN Normal NONE SEEN [facility] Comment on above: Performed By: #### U AMIC #### [facility] [address] [place] [address] Dr. Nancy Montalvo Epithelial cells LM Ql (Urine sed) FEW Abnormal NONE SEEN /RARE [facility] Comment on above: Performed By: #### U AMIC #### [facility] [address] [address] [address] Nancy Montalvo Glucose Ql (U) Negative Normal NEGATIVE [facility] Comment on above: Performed By: #### U AMIC #### [facility] [address] [address] [address] Nancy Montalvo Hemoglobin Ql (U) Negative Normal NEGATIVE [facility] Comment on above: Performed By: #### U AMIC #### [facility] [address] [address] [address] Nancy Montalvo Ketones Ql (U) Negative Normal NEGATIVE [facility] Comment on above: Performed By: #### U AMIC #### [facility] [address] [place] [address] Dr. Nancy Montalvo LEUKOCYTES MODERATE Abnormal NEGATIVE [facility] Comment on above: Performed By: #### U AMIC #### [facility] [address] [address] [address] Nancy Montalvo MUCOUS NONE SEEN Normal NONE SEEN [facility] Comment on above: Performed By: #### U AMIC #### [facility] [address] [place] [address] Dr. Nancy Montalvo Nitrite Ql (U) Positive Abnormal NEGATIVE [facility] Comment on above: Performed By: #### U AMIC #### [facility] [address] [address] [address] Nancy Montalvo pH (U) 5.5 [pH] Normal 5-9 [facility] Comment on above: Performed By: #### U AMIC #### [facility] [address] [address] [address] Nancy Montalvo RBC 0-2 Normal 0-2 [facility] Comment on above: Performed By: #### U AMIC #### [facility] [address] [place] [address] Dr. Nancy Montalvo SPEC GRAVITY 1.015 Normal 1.005-<=1.0 25 [facility] Comment on above: Performed By: #### U AMIC #### [facility] [address] [address] [address] Nancy Montalvo UA PROTEIN Negative Normal NEGATIVE/ TRACE [facility] Comment on above: Performed By: #### U AMIC #### [facility] [address] [place], [place] [address] Dr. Nancy Montalvo Urobilinogen Qn (U) 0.2 {Grant'U}/dL Normal 0.2 - 1. 0 [facility] Comment on above: Performed By: #### U AMIC #### [facility] [address] [address] [address] Nancy Montalvo WBC 10-20 Abnormal NONE SEEN [facility] Comment on above: Performed By: #### U AMIC #### [facility] [address] [address] [address] Nancy Montalvo ECHOCARDIO M/2D COMPLETEon 0 03-29-2022 ECHOCARDIO M/2D COMPLETE Patient: GEMMA LEWIS Exam Date: 03/29/2022 : 1935 Gender:F Ordering : BERNICE DELEON Admission #: [id number] Family : DR CHASE MÉNDEZ . Order #: [id number] CLICK HERE TO VIEW EXAM ECHOCARDIOGRAM REPORT [...] Ma M.D. on 03/31/2022 at 12:16 Normal [facility] GLYCOHEMOGLOBIN A1Con 2021 ADA RECOMMENDATION SEE BELOW Normal [facility] Comment on above: Result Comment: ADA RECOMMENDED LIMIT 4.0 - 6.0 ADA THERAPEUTIC TARGET < 7.0 ACTION SUGGESTED > 7.0 Performed By: #### A 1C #### [facility] [address] [place] [address] Dr. Nancy Montalvo Glucose [Mass/Vol] 97 mg/dL Normal [facility] Comment on above: Performed By: #### A 1C #### [facility] [address] [address] [address] Nancy Montalvo HbA1c (Bld) [Mass fraction] 5.0 % Normal 4.5-6.2 [facility] Comment on above: Performed By: #### A 1C #### [facility] [address] [place] [address] Dr. Nancy Montalvo PROTIMEon 10-24-2021 INR Coag (PPP) [Relative time] 2.17 {INR} Normal [facility] Comment on above: Performed By: #### A 1C #### [facility] [address] [place] [address] Dr. Nancy Montalvo INR GUIDELINES SEE BELOW Normal [facility] Comment on above: Result Comment: ADITYA RED INR: 2.0 - 3.0 CONDITIONS NOT LISTED BELOW 2.5 - 3.5 FOR PROSTHETIC HEART VALVE REPLACEMENT 2.5 - 3.5 RECURRENT THROMBOSIS Performed By: #### A 1C #### [facility] [address] [place] [address] Dr. Nancy Montalvo PT Coag (PPP) [Time] 22.3 s Critically high 9.0-11.6 [facility] Comment on above: Performed By: #### A 1C #### [facility] [address] [place] [address] Dr. Nancy Montalvo PTTon 10-24-2021 aPTT Coag (Bld) [Time] 35.0 s Normal 22.3-36.2 [facility] Comment on above: Performed By: #### A 1C #### [facility] [address] [place] [address] Dr. Nancy Montalvo BNPon 09-16-2021 Natriuretic peptide B (Bld) [Mass/Vol] 1955.0 pg/mL Critically high <=1,800.0 [facility] Comment on above: Performed By: #### P OCGLUC #### [facility] [address] [place] [address] Dr. Nancy Montalvo CBC AUTO DIFFon 09-16-2021 BASO # 0.0 103/ul Normal 0.0-0.1 [facility] Comment on above: Performed By: #### P OCGLUC #### [facility] [address] [place] [address] Dr. Nancy Montalvo Basophils/100 WBC (Bld) 0.4 % Normal 0.2-2.0 [facility] Comment on above: Performed By: #### P OCGLUC #### [facility] [address] [place] [address] Dr. Nancy Montalvo EO # 0.2 103/ul Normal 0.0-0.7 [facility] Comment on above: Performed By: #### P OCGLUC #### [facility] [address] [place] [address] Dr. Nancy Montalvo Eosinophils/100 WBC (Bld) 3.0 % Normal 0.9-7.0 [facility] Comment on above: Performed By: #### P OCGLUC #### [facility] [address] [place] [address] Dr. Nancy Montalvo Erythrocyte distribution width (RBC) [Ratio] 13.0 % Normal 11.0-15.0 [facility] Comment on above: Performed By: #### P OCGLUC #### [facility] [address] [place] [address] Dr. Nancy Montalvo Hematocrit (Bld) [Volume fraction] 29.3 % Critically low 36.0-48.0 [facility] Comment on above: Performed By: #### P OCGLUC #### [facility] [address] [place] [address] Dr. Nancy Montalvo Hemoglobin (Bld) [Mass/Vol] 9.2 g/dL Critically low 12.0-16.0 [facility] Comment on above: Performed By: #### P OCGLUC #### [facility] [address] [place] [address] Dr. Nancy Montalvo IG # 0.02 10e3/ul Normal 0.00-0.03 [facility] Comment on above: Performed By: #### P OCGLUC #### [facility] [address] [place] [address] Dr. Nancy Montalvo IG % 0.2 % Normal 0.0-0.5 [facility] Comment on above: Performed By: #### P OCGLUC #### [facility] [address] [place] [address] Dr. Nancy Montalvo LYMPH # 3.1 103/ul Normal 1.2-3.8 [facility] Comment on above: Performed By: #### P OCGLUC #### [facility] [address] [place] [address] Dr. Nancy Montalvo Lymphocytes/100 WBC (Bld) 37.7 % Normal 20.5-60.0 [facility] Comment on above: Performed By: #### P OCGLUC #### [facility] [address] [place] [address] Dr. Nancy Montalvo MANUAL DIFF REQ NO Normal [facility] Comment on above: Performed By: #### P OCGLUC #### [facility] [address] [place] [address] Dr. Nancy Montalvo MCH (RBC) [Entitic mass] 32.4 pg Normal 26.7-34.0 [facility] Comment on above: Performed By: #### P OCGLUC #### [facility] [address] [place] [address] Dr. Nancy Montalvo MCHC (RBC) [Mass/Vol] 31.4 g/dL Normal 29.9-35.2 [facility] Comment on above: Performed By: #### P OCGLUC #### [facility] [address] [place] [address] Dr. Nancy Montalvo MCV (RBC) [Entitic vol] 103.2 fL Critically high 81.0-99.0 [facility] Comment on above: Performed By: #### P OCGLUC #### [facility] [address] [place] [address] Dr. Nancy Montalvo MONO # 0.8 103/ul Normal 0.3-0.8 [facility] Comment on above: Performed By: #### P OCGLUC #### [facility] [address] [place] [address] Dr. Nancy Montalvo Monocytes/100 WBC (Bld) 9.3 % Normal 1.7-12.0 [facility] Comment on above: Performed By: #### P OCGLUC #### [facility] [address] [place] [address] Dr. Nancy Montalvo NEUT # 4.0 103/ul Normal 1.4-6.5 [facility] Comment on above: Performed By: #### P OCGLUC #### [facility] [address] [place] [address] Dr. Nancy Montalvo Neutrophils/100 WBC (Bld) 49.4 % Normal 43.0-75.0 [facility] Comment on above: Performed By: #### P OCGLUC #### [facility] [address] [place] [address] Dr. Nancy Montalvo Platelet mean volume (Bld) [Entitic vol] 12.5 fL Normal 9.5-13.5 [facility] Comment on above: Performed By: #### P OCGLUC #### [facility] [address] [place] [address] Dr. Nancy Montalvo PLT 137 103/ul Critically low 150-450 [facility] Comment on above: Performed By: #### P OCGLUC #### [facility] [address] [place] [address] Dr. Nancy Montalvo RBC 2.84 106/ul Critically low 4.20-5.40 [facility] Comment on above: Performed By: #### P OCGLUC #### [facility] [address] [place] [address] Dr. Nancy Montalvo WBC 8.1 103/ul Normal 4.0-11.0 [facility] Comment on above: Performed By: #### P OCGLUC #### [facility] [address] [place] [address] Dr. Nancy Montalvo PROF 14(COMP METB)on 022 Albumin [Mass/Vol] 2.5 g/dL Critically low 3.4-5.0 [facility] Comment on above: Performed By: #### A 1C #### [facility] [address] [place] [address] Dr. Nancy Montalvo Albumin/Globulin [Mass ratio] 0.8 {ratio} Normal [facility] Comment on above: Performed By: #### A 1C #### [facility] [address] [place] [address] Dr. Nancy Montalvo ALP [Catalytic activity/Vol] 52 U/L Normal 46-116 [facility] Comment on above: Performed By: #### A 1C #### [facility] [address] [place] [address] Dr. Nancy Montlavo ALT [Catalytic activity/Vol] 39 U/L Normal 14-59 [facility] Comment on above: Performed By: #### A 1C #### [facility] [address] [place] [address] Dr. Nancy Montalvo Anion gap [Moles/Vol] 10.7 mmol/L Normal [facility] Comment on above: Performed By: #### A 1C #### [facility] [address] [place] [address] Dr. Nancy Montalvo AST [Catalytic activity/Vol] 36 U/L Normal 15-37 [facility] Comment on above: Performed By: #### A 1C #### [facility] [address] [address] [address] Nancy Montalvo Bilirubin [Mass/Vol] 0.4 mg/dL Normal 0.2-1.0 [facility] Comment on above: Performed By: #### A 1C #### [facility] [address] [address] [address] Nancy Montalvo Calcium [Mass/Vol] 8.7 mg/dL Normal 8.5-10.1 [facility] Comment on above: Performed By: #### A 1C #### [facility] [address] [address] [address] Nancy Montalvo Chloride [Moles/Vol] 105 mmol/L Normal 98-107 [facility] Comment on above: Performed By: #### A 1C #### [facility] [address] [address] [address] Nancy Montalvo CO2 [Moles/Vol] 26.6 mmol/L Normal 21.0-32.0 [facility] Comment on above: Performed By: #### A 1C #### [facility] [address] [address] [address] Nancy Montalvo Creatinine [Mass/Vol] 2.29 mg/dL Critically high 0.55-1.02 [facility] Comment on above: Performed By: #### A 1C #### [facility] [address] [address] [address] Nancy Montalvo EGFR-AF MALAGASY 24 mL/min/1.73m2 Critically low >=60 [facility] Comment on above: Performed By: #### A 1C #### [facility] [address] [address] [address] Nancy Montalvo EGFR-NON AF MALAGASY 20 mL/min/1.73m2 Critically low >=60 [facility] Comment on above: Performed By: #### A 1C #### [facility] [address] [address] [address] Nancy Montalvo Globulin (S) [Mass/Vol] 3.2 g/dL Normal [facility] Comment on above: Performed By: #### A 1C #### [facility] [address] [address] [address] Nancy Montalvo Glucose [Mass/Vol] 88 mg/dL Normal 74-106 [facility] Comment on above: Performed By: #### A 1C #### [facility] [address] [address] [address] Nancy Montalvo Potassium [Moles/Vol] 4.3 mmol/L Normal 3.5-5.1 [facility] Comment on above: Performed By: #### A 1C #### [facility] [address] [address] [address] Nancy Montalvo Protein [Mass/Vol] 5.7 g/dL Critically low 6.4-8.2 [facility] Comment on above: Performed By: #### A 1C #### [facility] [address] [address] [address] Nancy Montalvo Sodium [Moles/Vol] 138 mmol/L Normal 136-145 [facility] Comment on above: Performed By: #### A 1C #### [facility] [address] [address] [address] Nancy Montalvo Urea nitrogen [Mass/Vol] 58.0 mg/dL Critically high 7.0-18.0 [facility] Comment on above: Performed By: #### A 1C #### [facility] [address] [address] [address] Nancy Montalvo Urea nitrogen/Creatinine [Mass ratio] 25.3 mg/mg Normal [facility] Comment on above: Performed By: #### A 1C #### [facility] [address] [address] [address] Nancy Montalvo PROTIMEon 09-16-2021 INR Coag (PPP) [Relative time] 2.73 {INR} Normal [facility] Comment on above: Performed By: #### P T #### [facility] [address] [address] [address] Nancy Montalvo INR GUIDELINES SEE BELOW Normal [facility] Comment on above: Result Comment: ADITYA RED INR: 2.0 - 3.0 CONDITIONS NOT LISTED BELOW 2.5 - 3.5 FOR PROSTHETIC HEART VALVE REPLACEMENT 2.5 - 3.5 RECURRENT THROMBOSIS Performed By: #### P T #### [facility] [address] [place] [address] Dr. Nancy Montalvo PT Coag (PPP) [Time] 27.6 s Critically high 9.0-11.6 [facility] Comment on above: Performed By: #### P T #### [facility] [address] [place] [address] Dr. Nancy Montalvo BNPon 09-15-2021 Natriuretic peptide B (Bld) [Mass/Vol] 1425.0 pg/mL Normal <=1,800.0 [facility] Comment on above: Performed By: #### U AMIC #### [facility] [address] [place] [address] Dr. Nancy Montalvo CBC AUTO DIFFon 09-15-2021 BASO # 0.0 103/ul Normal 0.0-0.1 [facility] Comment on above: Performed By: #### C MP #### [facility] [address] [place] [address] Dr. Nancy Montalvo Basophils/100 WBC (Bld) 0.4 % Normal 0.2-2.0 [facility] Comment on above: Performed By: #### C MP #### [facility] [address] [place] [address] Dr. Nancy Montalvo EO # 0.2 103/ul Normal 0.0-0.7 [facility] Comment on above: Performed By: #### C MP #### [facility] [address] [place] [address] Dr. Nancy Montalvo Eosinophils/100 WBC (Bld) 3.1 % Normal 0.9-7.0 [facility] Comment on above: Performed By: #### C MP #### [facility] [address] [place] [address] Dr. Nancy Montalvo Erythrocyte distribution width (RBC) [Ratio] 13.2 % Normal 11.0-15.0 [facility] Comment on above: Performed By: #### C MP #### [facility] [address] [address] [address] Nancy Montalvo Hematocrit (Bld) [Volume fraction] 30.1 % Critically low 36.0-48.0 [facility] Comment on above: Performed By: #### C MP #### [facility] [address] [address] [address] Nancy Montalvo Hemoglobin (Bld) [Mass/Vol] 9.3 g/dL Critically low 12.0-16.0 [facility] Comment on above: Performed By: #### C MP #### [facility] [address] [address] [address] Nancy Montalvo IG # 0.02 10e3/ul Normal 0.00-0.03 [facility] Comment on above: Performed By: #### C MP #### [facility] [address] [place] [address] Dr. Nancy Montalvo IG % 0.3 % Normal 0.0-0.5 [facility] Comment on above: Performed By: #### C MP #### [facility] [address] [place] [address] Dr. Nancy Montalvo LYMPH # 2.8 103/ul Normal 1.2-3.8 [facility] Comment on above: Performed By: #### C MP #### [facility] [address] [place] [address] Dr. Nancy Montalvo Lymphocytes/100 WBC (Bld) 35.8 % Normal 20.5-60.0 [facility] Comment on above: Performed By: #### C MP #### [facility] [address] [place] [address] Dr. Nancy Montalvo MANUAL DIFF REQ NO Normal [facility] Comment on above: Performed By: #### C MP #### [facility] [address] [place] [address] Dr. Nancy Montalvo MCH (RBC) [Entitic mass] 32.3 pg Normal 26.7-34.0 [facility] Comment on above: Performed By: #### C MP #### [facility] [address] [address] [address] Nancy Montalvo MCHC (RBC) [Mass/Vol] 30.9 g/dL Normal 29.9-35.2 [facility] Comment on above: Performed By: #### C MP #### [facility] [address] [address] [address] Nancy Montalvo MCV (RBC) [Entitic vol] 104.5 fL Critically high 81.0-99.0 [facility] Comment on above: Performed By: #### C MP #### [facility] [address] [address] [address] Nancy Montalvo MONO # 0.7 103/ul Normal 0.3-0.8 [facility] Comment on above: Performed By: #### C MP #### [facility] [address] [place] [address] Dr. Nancy Montalvo Monocytes/100 WBC (Bld) 9.4 % Normal 1.7-12.0 [facility] Comment on above: Performed By: #### C MP #### [facility] [address] [address] [address] Nancy Montalvo NEUT # 4.0 103/ul Normal 1.4-6.5 [facility] Comment on above: Performed By: #### C MP #### [facility] [address] [place] [address] Dr. Nancy Montalvo Neutrophils/100 WBC (Bld) 51.0 % Normal 43.0-75.0 [facility] Comment on above: Performed By: #### C MP #### [facility] [address] [address] [address] Nancy Montalvo Platelet mean volume (Bld) [Entitic vol] 12.6 fL Normal 9.5-13.5 [facility] Comment on above: Performed By: #### C MP #### [facility] [address] [address] [address] Nancy Montavlo PLT 132 103/ul Critically low 150-450 [facility] Comment on above: Performed By: #### C MP #### [facility] [address] [place] [address] Dr. Nancy Montalvo RBC 2.88 106/ul Critically low 4.20-5.40 [facility] Comment on above: Performed By: #### C MP #### [facility] [address] [place] [address] Dr. Nancy Montalvo WBC 7.9 103/ul Normal 4.0-11.0 [facility] Comment on above: Performed By: #### C MP #### [facility] [address] [place] [address] Dr. Nancy Montalvo PROF 14(COMP METB)on 022 Albumin [Mass/Vol] 2.5 g/dL Critically low 3.4-5.0 [facility] Comment on above: Performed By: #### U AMIC #### [facility] [address] [place] [address] Dr. Nancy Montalvo Albumin/Globulin [Mass ratio] 0.8 {ratio} Normal [facility] Comment on above: Performed By: #### U AMIC #### [facility] [address] [place] [address] Dr. Nancy Montalvo ALP [Catalytic activity/Vol] 54 U/L Normal 46-116 [facility] Comment on above: Performed By: #### U AMIC #### [facility] [address] [place] [address] Dr. Nancy Montalvo ALT [Catalytic activity/Vol] 39 U/L Normal 14-59 [facility] Comment on above: Performed By: #### U AMIC #### [facility] [address] [place] [address] Dr. Nancy Montalvo Anion gap [Moles/Vol] 13.5 mmol/L Normal [facility] Comment on above: Performed By: #### U AMIC #### [facility] [address] [place] [address] Dr. Nancy Montalvo AST [Catalytic activity/Vol] 33 U/L Normal 15-37 [facility] Comment on above: Performed By: #### U AMIC #### [facility] [address] [place] [address] Dr. Nancy Montalvo Bilirubin [Mass/Vol] 0.2 mg/dL Normal 0.2-1.0 [facility] Comment on above: Performed By: #### U AMIC #### [facility] [address] [address] [address] Nancy Montalvo Calcium [Mass/Vol] 8.5 mg/dL Normal 8.5-10.1 [facility] Comment on above: Performed By: #### U AMIC #### [facility] [address] [address] [address] Nancy Montalvo Chloride [Moles/Vol] 104 mmol/L Normal 98-107 [facility] Comment on above: Performed By: #### U AMIC #### [facility] [address] [address] [address] Nancy Montalvo CO2 [Moles/Vol] 23.3 mmol/L Normal 21.0-32.0 [facility] Comment on above: Performed By: #### U AMIC #### [facility] [address] [address] [address] Nancy Montalvo Creatinine [Mass/Vol] 2.66 mg/dL Critically high 0.55-1.02 [facility] Comment on above: Performed By: #### U AMIC #### [facility] [address] [address] [address] Nancy Montalvo EGFR-AF MALAGASY 21 mL/min/1.73m2 Critically low >=60 [facility] Comment on above: Performed By: #### U AMIC #### [facility] [address] [address] [address] Nancy Montalvo EGFR-NON AF MALAGASY 17 mL/min/1.73m2 Critically low >=60 [facility] Comment on above: Performed By: #### U AMIC #### [facility] [address] [address] [address] Nancy Montalvo Globulin (S) [Mass/Vol] 3.2 g/dL Normal [facility] Comment on above: Performed By: #### U AMIC #### [facility] [address] [address] [address] Nancy Montalvo Glucose [Mass/Vol] 84 mg/dL Normal 74-106 [facility] Comment on above: Performed By: #### U AMIC #### [facility] [address] [address] [address] Nancy Montalvo Potassium [Moles/Vol] 4.8 mmol/L Normal 3.5-5.1 [facility] Comment on above: Performed By: #### U AMIC #### [facility] [address] [address] [address] Nancy Montalvo Protein [Mass/Vol] 5.7 g/dL Critically low 6.4-8.2 [facility] Comment on above: Performed By: #### U AMIC #### [facility] [address] [address] [address] Nancy Montalvo Sodium [Moles/Vol] 136 mmol/L Normal 136-145 [facility] Comment on above: Performed By: #### U AMIC #### [facility] [address] [address] [address] Nancy Montalvo Urea nitrogen [Mass/Vol] 66.0 mg/dL Critically high 7.0-18.0 [facility] Comment on above: Performed By: #### U AMIC #### [facility] [address] [place] [address] Dr. Nancy Montalvo Urea nitrogen/Creatinine [Mass ratio] 24.8 mg/mg Normal [facility] Comment on above: Performed By: #### U AMIC #### [facility] [address] [address] [address] Nancy Montalvo PROTIMEon 09-15-2021 INR Coag (PPP) [Relative time] 2.47 {INR} Normal [facility] Comment on above: Performed By: #### P OCGLUC #### [facility] [address] [place] [address] Dr. Nancy Montalvo INR GUIDELINES SEE BELOW Normal [facility] Comment on above: Result Comment: ADITYA RED INR: 2.0 - 3.0 CONDITIONS NOT LISTED BELOW 2.5 - 3.5 FOR PROSTHETIC HEART VALVE REPLACEMENT 2.5 - 3.5 RECURRENT THROMBOSIS Performed By: #### P OCGLUC #### [facility] [address] [place] [address] Dr. Nancy Montalvo PT Coag (PPP) [Time] 25.1 s Critically high 9.0-11.6 [facility] Comment on above: Performed By: #### P OCGLUC #### [facility] [address] [place] [address] Dr. Nancy Montalvo BNPon 09-14-2021 Natriuretic peptide B (Bld) [Mass/Vol] 1255.0 pg/mL Normal <=1,800.0 [facility] Comment on above: Performed By: #### P OCGLUC #### [facility] [address] [place] [address] Dr. Nancy Montalvo CBC W MANUAL DIFFon 09-15-19 ATYPICAL LYMPH # Normal [facility] Comment on above: Performed By: #### P OCGLUC #### [facility] [address] [place] [address] Dr. Nancy Montalvo ATYPICAL LYMPH % Normal [facility] Comment on above: Performed By: #### P OCGLUC #### [facility] [address] [place] [address] Dr. Nancy Montalvo BAND # Normal 0.0-0.3 [facility] Comment on above: Performed By: #### P OCGLUC #### [facility] [address] [place] [address] Dr. Nancy Montalvo BAND % Normal 0-5 [facility] Comment on above: Performed By: #### P OCGLUC #### [facility] [address] [place] [address] Dr. Nancy Montalvo BASOM # 0.11 103/ul Critically high 0.00-0.10 [facility] Comment on above: Performed By: #### P OCGLUC #### [facility] [address] [place] [address] Dr. Nancy Montalvo BASOM % 1.0 % Normal 0.2-2.0 [facility] Comment on above: Performed By: #### P OCGLUC #### [facility] [address] [address] [address] Nancy Montalvo BLAST # Normal [facility] Comment on above: Performed By: #### P OCGLUC #### [facility] [address] [address] [address] Nancy Montalvo BLAST % Normal [facility] Comment on above: Performed By: #### P OCGLUC #### [facility] [address] [address] [address] Nancy Montalvo CORRECTED WBC Normal 4.0-11.0 [facility] Comment on above: Performed By: #### P OCGLUC #### [facility] [address] [address] [address] Nancy Montalvo EOS # 0.45 103/ul Normal 0.00-0.70 [facility] Comment on above: Performed By: #### P OCGLUC #### [facility] [address] [place] [address] Dr. Nancy Montalvo EOS% 4.0 % Normal 0.9-7.0 [facility] Comment on above: Performed By: #### P OCGLUC #### [facility] [address] [address] [address] Nancy Montalvo HCT 32.7 % Critically low 36.0-48.0 [facility] Comment on above: Performed By: #### P OCGLUC #### [facility] [address] [address] [address] Nancy Montalvo HGB 10.2 g/dl Critically low 12.0-16.0 [facility] Comment on above: Performed By: #### P OCGLUC #### [facility] [address] [address] [address] Nancy Montalvo LYMPHM # 5.38 103/ul Critically high 1.20-3.80 [facility] Comment on above: Performed By: #### P OCGLUC #### [facility] [address] [address] [address] Nancy Montalvo LYMPHM% 48.0 % Normal 20.5-60.0 [facility] Comment on above: Performed By: #### P OCGLUC #### [facility] [address] [address] [address] Nancy Montalvo MCH 32.4 pg Normal 26.7-34.0 [facility] Comment on above: Performed By: #### P OCGLUC #### [facility] Laboratory [address] [address] [address] Nancy Montalvo MCHC 31.2 g/dl Normal 29.9-35.2 [facility] Comment on above: Performed By: #### P OCGLUC #### [facility] [address] [address] [address] Nancy Montalvo MCV 103.8 fL Critically high 81.0-99.0 [facility] Comment on above: Performed By: #### P OCGLUC #### [facility] [address] [place] [address] Dr. Nancy Montalvo METAMYELOCYTE # Normal [facility] Comment on above: Performed By: #### P OCGLUC #### [facility] [address] [place] [address] Dr. Nancy Montalvo METAMYELOCYTE % Normal [facility] Comment on above: Performed By: #### P OCGLUC #### [facility] [address] [address] [address] Nancy Montalvo MONOM# 0.56 103/ul Normal 0.30-0.80 [facility] Comment on above: Performed By: #### P OCGLUC #### [facility] [address] [place] [address] Dr. Nancy Montalvo MONOM% 5.0 % Normal 1.7-12.0 [facility] Comment on above: Performed By: #### P OCGLUC #### [facility] [address] [address] [address] Nancy Montalvo MPV 12.6 fL Normal 9.5-13.5 [facility] Comment on above: Performed By: #### P OCGLUC #### [facility] [address] [address] [address] Nancy Montalvo MYELOCYTE # Normal [facility] Comment on above: Performed By: #### P OCGLUC #### [facility] [address] [address] [address] Nancy Montalvo MYELOCYTE % Normal [facility] Comment on above: Performed By: #### P OCGLUC #### [facility] [address] [address] [address] Nancy Montalvo NRBC Normal [facility] Comment on above: Performed By: #### P OCGLUC #### [facility] [address] [address] [address] Nancy Montalvo PLT 145 103/ul Critically low 150-450 [facility] Comment on above: Performed By: #### P OCGLUC #### [facility] [address] [address] [address] Nancy Montalvo RBC 3.15 106/ul Critically low 4.20-5.40 [facility] Comment on above: Performed By: #### P OCGLUC #### [facility] [address] [address] [address] Nancy Montalvo RDW 13.2 % Normal 11.0-15.0 [facility] Comment on above: Performed By: #### P OCGLUC #### [facility] [address] [address] [address] Nancy Montalvo SEG # 4.70 103/ul Normal 1.40-6.50 [facility] Comment on above: Performed By: #### P OCGLUC #### [facility] [address] [address] [address] Nancy Montalvo SEG % 42.0 % Critically low 43.0-75.0 [facility] Comment on above: Performed By: #### P OCGLUC #### [facility] [address] [address] [address] Nancy Montalvo WBC 11.2 103/ul Critically high 4.0-11.0 [facility] Comment on above: Performed By: #### P OCGLUC #### [facility] [address] [address] [address] Nancy Montalvo POINT OF CARE GLUCOSEon 06-2 Glucose [Mass/Vol] 101 mg/dL Normal 74-106 [facility] Comment on above: Performed By: #### P OCGLUC #### [facility] [address] [place] [address] Dr. Nancy Montalvo Glucose [Mass/Vol] 145 mg/dL Critically high 74-106 [facility] Comment on above: Performed By: #### C MP #### [facility] [address] [address] [address] Nancy Montalvo Glucose [Mass/Vol] 87 mg/dL Normal 74-106 [facility] Comment on above: Performed By: #### U AMIC #### [facility] [address] [place] [address] Dr. Nancy Montalvo PROF 14(COMP METB)on 022 Albumin [Mass/Vol] 2.8 g/dL Critically low 3.4-5.0 [facility] Comment on above: Performed By: #### P OCGLUC #### [facility] [address] [place] [address] Dr. Nancy Montalvo Albumin/Globulin [Mass ratio] 0.8 {ratio} [facility] Comment on above: Performed By: #### P OCGLUC #### [facility] [address] [place] [address] Dr. Nancy Montalvo ALP [Catalytic activity/Vol] 59 U/L Normal 46-116 [facility] Comment on above: Performed By: #### P OCGLUC #### [facility] [address] [place] [address] Dr. Nancy Montalvo ALT [Catalytic activity/Vol] 43 U/L Normal 14-59 [facility] Comment on above: Performed By: #### P OCGLUC #### [facility] [address] [place] [address] Dr. Nancy Montalvo Anion gap [Moles/Vol] 12.9 mmol/L Normal [facility] Comment on above: Performed By: #### P OCGLUC #### [facility] [address] [address] [address] Nancy Montalvo AST [Catalytic activity/Vol] 31 U/L Normal 15-37 [facility] Comment on above: Performed By: #### P OCGLUC #### [facility] [address] [address] [address] Nancy Montalvo Bilirubin [Mass/Vol] 0.3 mg/dL Normal 0.2-1.0 [facility] Comment on above: Performed By: #### P OCGLUC #### [facility] [address] [address] [address] Nancy Montalvo Calcium [Mass/Vol] 8.8 mg/dL Normal 8.5-10.1 [facility] Comment on above: Performed By: #### P OCGLUC #### [facility] [address] [address] [address] Nancy Montalvo Chloride [Moles/Vol] 104 mmol/L Normal 98-107 [facility] Comment on above: Performed By: #### P OCGLUC #### [facility] [address] [address] [address] Nancy Montalvo CO2 [Moles/Vol] 23.7 mmol/L Normal 21.0-32.0 [facility] Comment on above: Performed By: #### P OCGLUC #### [facility] [address] [address] [address] Nancy Montalvo Creatinine [Mass/Vol] 2.43 mg/dL Critically high 0.55-1.02 [facility] Comment on above: Performed By: #### P OCGLUC #### [facility] [address] [address] [address] Nancy Montalvo EGFR-AF MALAGASY 23 mL/min/1.73m2 Critically low >=60 [facility] Comment on above: Performed By: #### P OCGLUC #### [facility] [address] [address] [address] Nancy Montalvo EGFR-NON AF MALAGASY 19 mL/min/1.73m2 Critically low >=60 [facility] Comment on above: Performed By: #### P OCGLUC #### [facility] [address] [address] [address] Nancy Montalvo Globulin (S) [Mass/Vol] 3.3 g/dL Normal [facility] Comment on above: Performed By: #### P OCGLUC #### [facility] [address] [address] [address] Nancy Montalvo Glucose [Mass/Vol] 80 mg/dL Normal 74-106 [facility] Comment on above: Performed By: #### P OCGLUC #### [facility] [address] [address] [address] Nancy Montalvo Potassium [Moles/Vol] 4.6 mmol/L Normal 3.5-5.1 [facility] Comment on above: Performed By: #### P OCGLUC #### [facility] [address] [address] [address] Nancy Montalvo Protein [Mass/Vol] 6.1 g/dL Critically low 6.4-8.2 [facility] Comment on above: Performed By: #### P OCGLUC #### [facility] [address] [address] [address] Nancy Montalvo Sodium [Moles/Vol] 136 mmol/L Normal 136-145 [facility] Comment on above: Performed By: #### P OCGLUC #### [facility] [address] [address] [address] Nancy Montalvo Urea nitrogen [Mass/Vol] 59.0 mg/dL Critically high 7.0-18.0 [facility] Comment on above: Performed By: #### P OCGLUC #### [facility] [address] [address] [address] Nancy Montalvo Urea nitrogen/Creatinine [Mass ratio] 24.3 mg/mg Normal [facility] Comment on above: Performed By: #### P OCGLUC #### [facility] [address] [address] [address] Nancy Montalvo PROTIMEon 09-14-2021 INR Coag (PPP) [Relative time] 1.79 {INR} Normal [facility] Comment on above: Performed By: #### C MP #### [facility] [address] [address] [address] Nancy Montalvo INR GUIDELINES SEE BELOW Normal [facility] Comment on above: Result Comment: ADITYA RED INR: 2.0 - 3.0 CONDITIONS NOT LISTED BELOW 2.5 - 3.5 FOR PROSTHETIC HEART VALVE REPLACEMENT 2.5 - 3.5 RECURRENT THROMBOSIS Performed By: #### C MP #### [facility] [address] [place] [address] Dr. Nancy Montalvo PT Coag (PPP) [Time] 18.6 s Critically high 9.0-11.6 [facility] Comment on above: Performed By: #### C MP #### [facility] [address] [place] [address] Dr. Nancy Montalvo UA RANDOM W/MICROSCOPICon BACTERIA TRACE Abnormal NONE SEEN [facility] Comment on above: Performed By: #### A 1C #### [facility] [address] [place] [address] Dr. Nancy Montalvo Bilirubin Ql (U) Negative Normal NEGATIVE [facility] Comment on above: Performed By: #### A 1C #### [facility] [address] [place] [address] Dr. Nnacy Montalvo CAST NONE SEEN Normal NONE SEEN [facility] Comment on above: Performed By: #### A 1C #### [facility] [address] [place] [address] Dr. Nanyc Montalvo Clarity (U) CLEAR Normal CLEAR [facility] Comment on above: Performed By: #### A 1C #### [facility] [address] [place] [address] Dr. Nancy Montalvo Color (U) LT. YELLOW Normal YELLOW [facility] Comment on above: Performed By: #### A 1C #### [facility] [address] [place] [address] Dr. Nancy Montalvo Crystals LM Nom (Urine sed) NONE SEEN Normal NONE SEEN [facility] Comment on above: Performed By: #### A 1C #### [facility] [address] [place] [address] Dr. Nancy Montalvo Epithelial cells LM Ql (Urine sed) FEW Abnormal NONE SEEN /RARE [facility] Comment on above: Performed By: #### A 1C #### [facility] [address] [place] [address] Dr. Nancy Montalvo Glucose Ql (U) Negative Normal NEGATIVE [facility] Comment on above: Performed By: #### A 1C #### [facility] [address] [place] [address] Dr. Nancy Montalvo Hemoglobin Ql (U) Negative Normal NEGATIVE [facility] Comment on above: Performed By: #### A 1C #### [facility] [address] [place] [address] Dr. Nancy Montalvo Ketones Ql (U) Negative Normal NEGATIVE [facility] Comment on above: Performed By: #### A 1C #### [facility] [address] [place] [address] Dr. Nancy Montalvo LEUKOCYTES MODERATE Abnormal NEGATIVE [facility] Comment on above: Performed By: #### A 1C #### [facility] [address] [place] [address] Dr. Nancy Montalvo MUCOUS SMALL Abnormal NONE SEEN [facility] Comment on above: Performed By: #### A 1C #### [facility] [address] [place] [address] Dr. Nancy Montalvo Nitrite Ql (U) Negative Normal NEGATIVE [facility] Comment on above: Performed By: #### A 1C #### [facility] [address] [place] [address] Dr. Nancy Montalvo pH (U) 5.0 [pH] Normal 5-9 [facility] Comment on above: Performed By: #### A 1C #### [facility] [address] [place] [address] Dr. Nancy Montalvo RBC NONE SEEN Abnormal 0-2 [facility] Comment on above: Performed By: #### A 1C #### [facility] [address] [place] [address] Dr. Nancy Montalvo SPEC GRAVITY 1.025 Normal 1.005-<=1.0 25 [facility] Comment on above: Performed By: #### A 1C #### [facility] [address] [place] [address] Dr. Nancy Montalvo UA PROTEIN Negative Normal NEGATIVE/ TRACE [facility] Comment on above: Performed By: #### A 1C #### [facility] [address] [place] [address] Dr. Nancy Montalvo Urobilinogen Qn (U) 0.2 {Grant'U}/dL Normal 0.2 - 1. 0 [facility] Comment on above: Performed By: #### A 1C #### [facility] [address] [place] [address] Dr. Nancy Montalvo WBC 5-10 Abnormal NONE SEEN [facility] Comment on above: Performed By: #### A 1C #### [facility] [address] [place] [address] Dr. Nancy Montalvo CBC AUTO DIFFon 09-13-2021 BASO # 0.1 103/ul Normal 0.0-0.1 [facility] Comment on above: Performed By: #### C VDTBH #### [facility] [address] [place] [address] Dr. Nancy Montalvo Basophils/100 WBC (Bld) 0.5 % Normal 0.2-2.0 [facility] Comment on above: Performed By: #### C VDTBH #### [facility] [address] [place] [address] Dr. Nancy Montalvo EO # 0.1 103/ul Normal 0.0-0.7 [facility] Comment on above: Performed By: #### C VDTBH #### [facility] [address] [place] [address] Dr. Nancy Montalvo Eosinophils/100 WBC (Bld) 0.6 % Critically low 0.9-7.0 [facility] Comment on above: Performed By: #### C VDTBH #### [facility] [address] [place] [address] Dr. Nancy Montalvo Erythrocyte distribution width (RBC) [Ratio] 12.9 % Normal 11.0-15.0 [facility] Comment on above: Performed By: #### C VDTBH #### [facility] [address] [place] [address] Dr. Nancy Montalvo Hematocrit (Bld) [Volume fraction] 33.3 % Critically low 36.0-48.0 [facility] Comment on above: Performed By: #### C VDTBH #### [facility] [address] [place] [address] Dr. Nancy Montalvo Hemoglobin (Bld) [Mass/Vol] 10.4 g/dL Critically low 12.0-16.0 [facility] Comment on above: Performed By: #### C VDTBH #### [facility] [address] [place] [address] Dr. Nancy Montalvo IG # 0.03 10e3/ul Normal 0.00-0.03 [facility] Comment on above: Performed By: #### C VDTBH #### [facility] [address] [place] [address] Dr. Nancy Montalvo IG % 0.3 % Normal 0.0-0.5 [facility] Comment on above: Performed By: #### C VDTBH #### [facility] [address] [place] [address] Dr. Nancy Montalvo LYMPH # 1.9 103/ul Normal 1.2-3.8 [facility] Comment on above: Performed By: #### C VDTBH #### [facility] [address] [place] [address] Dr. Nancy Montalvo Lymphocytes/100 WBC (Bld) 19.9 % Critically low 20.5-60.0 [facility] Comment on above: Performed By: #### C VDTBH #### [facility] [address] [place] [address] Dr. Nancy Montalvo MANUAL DIFF REQ NO Normal [facility] Comment on above: Performed By: #### C VDTBH #### [facility] [address] [place] [address] Dr. Nancy Montalvo MCH (RBC) [Entitic mass] 31.9 pg Normal 26.7-34.0 [facility] Comment on above: Performed By: #### C VDTBH #### [facility] [address] [place] [address] Dr. Nancy Montalvo MCHC (RBC) [Mass/Vol] 31.2 g/dL Normal 29.9-35.2 [facility] Comment on above: Performed By: #### C VDTBH #### [facility] [address] [place] [address] Dr. Nancy Montalvo MCV (RBC) [Entitic vol] 102.1 fL Critically high 81.0-99.0 [facility] Comment on above: Performed By: #### C VDTBH #### [facility] [address] [place] [address] Dr. Nancy Montalvo MONO # 0.8 103/ul Normal 0.3-0.8 [facility] Comment on above: Performed By: #### C VDTBH #### [facility] [address] [place] [address] Dr. Nancy Montalvo Monocytes/100 WBC (Bld) 8.1 % Normal 1.7-12.0 [facility] Comment on above: Performed By: #### C VDTBH #### [facility] [address] [place] [address] Dr. Nancy Montalvo NEUT # 6.6 103/ul Critically high 1.4-6.5 [facility] Comment on above: Performed By: #### C VDTBH #### [facility] [address] [place] [address] Dr. Nancy Montalvo Neutrophils/100 WBC (Bld) 70.6 % Normal 43.0-75.0 [facility] Comment on above: Performed By: #### C VDTBH #### [facility] [address] [place] [address] Dr. Nancy Montalvo Platelet mean volume (Bld) [Entitic vol] 12.3 fL Normal 9.5-13.5 [facility] Comment on above: Performed By: #### C VDTBH #### [facility] [address] [place] [address] Dr. Nancy Montalvo PLT 160 103/ul Normal 150-450 [facility] Comment on above: Performed By: #### C VDTBH #### [facility] [address] [place] [address] Dr. Nancy Montalvo RBC 3.26 106/ul Critically low 4.20-5.40 [facility] Comment on above: Performed By: #### C VDTB #### [facility] [address] [address] [address] Nancy Montalvo WBC 9.4 103/ul Normal 4.0-11.0 [facility] Comment on above: Performed By: #### C VDTB #### [facility] [address] [address] [address] PELVIS WO CONon [...] JOSÉ CHENG Date: 2021-09-13 10:47 Normal [facility] Covid-19 PCR (CVDTBH)on 08-18 SARS-CoV-2 (COVID-19) RNA MARLENE+probe Ql (Unsp spec) Not detected Normal NOT DETECTED [facility] Comment on above: Result Comment: When diagnostic [...] for this test is supported by the Quality Worker of Health and Human Service's declaration that [...] used). Performed By: #### P OCGLUC #### [facility] [address] [place] [address] Dr. Nancy Montalvo POINT OF CARE GLUCOSEon 08-18 Glucose [Mass/Vol] 75 mg/dL Normal 74-106 [facility] Comment on above: Performed By: #### P OCGLUC #### [facility] [address] [place] [address] Dr. Nancy Montalvo Glucose [Mass/Vol] 82 mg/dL Normal 74-106 [facility] Comment on above: Performed By: #### P OCGLUC #### [facility] [address] [place] [address] Dr. Nancy Montalvo PROF CHEM 8 (BAS METB)on Anion gap [Moles/Vol] 16.7 mmol/L Normal [facility] Comment on above: Performed By: #### B LDCX1 #### [facility] [address] [place] [address] Dr. Nancy Montalvo Calcium [Mass/Vol] 8.8 mg/dL Normal 8.5-10.1 [facility] Comment on above: Performed By: #### B LDCX1 #### [facility] [address] [place] [address] Dr. Nancy Montalvo Chloride [Moles/Vol] 107 mmol/L Normal 98-107 [facility] Comment on above: Performed By: #### B LDCX1 #### [facility] [address] [address] [address] Nancy Montalvo CO2 [Moles/Vol] 23.0 mmol/L Normal 21.0-32.0 [facility] Comment on above: Performed By: #### B LDCX1 #### [facility] [address] [address] [address] Nancy Montalvo Creatinine [Mass/Vol] 2.51 mg/dL Critically high 0.55-1.02 [facility] Comment on above: Performed By: #### B LDCX1 #### [facility] [address] [address] [address] Nancy Montalvo EGFR-AF MALAGASY 22 mL/min/1.73m2 Critically low >=60 [facility] Comment on above: Performed By: #### B LDCX1 #### [facility] [address] [address] [address] Nancy Montalvo EGFR-NON AF MALAGASY 18 mL/min/1.73m2 Critically low >=60 [facility] Comment on above: Performed By: #### B LDCX1 #### [facility] [address] [address] [address] Nancy Montalvo Glucose [Mass/Vol] 91 mg/dL Normal 74-106 [facility] Comment on above: Performed By: #### B LDCX1 #### [facility] [address] [address] [address] Nancy Montalvo Potassium [Moles/Vol] 4.7 mmol/L Normal 3.5-5.1 [facility] Comment on above: Performed By: #### B LDCX1 #### [facility] [address] [address] [address] Nancy Montalvo Sodium [Moles/Vol] 142 mmol/L Normal 136-145 [facility] Comment on above: Performed By: #### B LDCX1 #### [facility] [address] [address] [address] Nancy Montalvo Urea nitrogen [Mass/Vol] 60.0 mg/dL Critically high 7.0-18.0 [facility] Comment on above: Performed By: #### B LDCX1 #### [facility] [address] [place] [address] Dr. Nancy Montalvo Urea nitrogen/Creatinine [Mass ratio] 23.9 mg/mg Normal [facility] Comment on above: Performed By: #### B LDCX1 #### [facility] [address] [place] [address] Dr. Nancy Montalvo PROTIMEon 09-13-2021 INR Coag (PPP) [Relative time] 1.53 {INR} Normal [facility] Comment on above: Performed By: #### P OCGLUC #### [facility] [address] [place] [address] Dr. Nancy Montalvo INR GUIDELINES SEE BELOW Normal [facility] Comment on above: Result Comment: ADITYA RED INR: 2.0 - 3.0 CONDITIONS NOT LISTED BELOW 2.5 - 3.5 FOR PROSTHETIC HEART VALVE REPLACEMENT 2.5 - 3.5 RECURRENT THROMBOSIS Performed By: #### P OCGLUC #### [facility] [address] [place] [address] Dr. Nancy Montalvo PT Coag (PPP) [Time] 16.1 s Critically high 9.0-11.6 [facility] Comment on above: Performed By: #### P OCGLUC #### [facility] [address] [place] [address] Dr. Nancy Montalvo T4on 09-13-2021 T4 [Mass/Vol] 7.30 ug/dL Normal 4.80-13.90 [facility] Comment on above: Performed By: #### U AMIC #### [facility] [address] [place] [address] Dr. Nancy Montalvo TSHon 09-13-2021 TSH 1.045 uIU/mL Normal 0.358-3.740 [facility] Comment on above: Performed By: #### U AMIC #### [facility] [address] [place] [address] Dr. Nancy Montalvo Cardiovascular Lab Reporton 08-30-2021 Cardiovascular Lab Report [facility] #: [id number] Department of Physician: Rob Morales MD Medicine Service Date: 08/30/2021 Division of Birthdate: 1935 Cardiology Room #: Adult Cardiovascular Services [address] [place] [address] Cardiovascular Laboratory Report PACEMAKER GENERATOR CHANGE POCKET REVISION PROCEDURE NOTE DATE OF PROCEDURE: 08/30/2021 PERFORMING PHYSICIAN: Dr. Rob Morales CONSENT: Patient LOCATION: EP Lab PROCEDURE PERFORMED: 1. Implant of new pacemaker generator ([employer]). 2. Explant of pacemaker generator ([employer]). 3. Pocket [employer]. INDICATIONS: 1. S/p [...] leads were then attached to a new [employer] generator and the leads tug tested. Pocket [...] the device as noted below. Device info: [employer] Accolade MRI DR IS-1 Model# L311 Serial# [id number] RA lead: Implanted on 08/19/2012 Tyson Wong IS-1 4136-53 cm, Serial #[id number] Sensin.3mV Threshold: 0.7V@0.4ms Impedance: 564 Ohms RV lead: Implanted on 08/19/2012 Tyson Wong IS-1 4137-60cm Serial #[id number] Sensin.8mV Threshold: 1.8V@0.4ms Impedance: 468 Ohms POST [...] Morales MD Date Trans: 08/30/2021 01:25 P/catalina [id number] cc: Chase Méndez M.D. [address] [facility] [id number] Normal [facility] Covid-19 PCR (CVDTB)on 08-17 SARS-CoV-2 (COVID-19) RNA MARLENE+probe Ql (Unsp spec) Not detected Normal NOT DETECTED [facility] Comment on above: Result Comment: This test is not yet approved or cleared by the [place] FDA. When there are no FDA-approved or cleared tests available, and other criteria are met, FDA can make tests available under an emergency access mechanism called an Emergency Use Authorization (EUA). The EUA for this test is supported by the [place] of Health and Human Service's (HHS's) declaration [...] consistent with SARS-CoV-2. Performed By: #### C #### [facility] [address] [place] [address] Dr. Nancy Montalvo Vital Signs Date Time Vital Sign Value Performing Clinician Faci lity 11-14-2022 13:26-0400 Blood Pressure Location [facility] 11-14-2022 13:26-0400 Diastolic blood pressure 60 mm[Hg] [employer] [facility] 11-14-2022 13:26-0400 Heart rate 70 /min [facility] 11-14-2022 13:26-0400 Respiratory rate 16 /min [facility] [employer] 11-14-2022 13:26-0400 Systolic blood pressure 116 mm[Hg] [employer] [facility] Encounters Encounter Date Encounter Type Care Provider Facility Start: 10-17-2023 End: 10-17-[address] [facility] Start: 10-10-2023 End: 10-10-2023 ambulatory LV BLANKENSHIP [facility] Start: 09-20-2023 End: 09-20-2023 Evaluation and management of inpatient MARTHA MCLEAN [facility] Start: 09-19-2023 End: 09-20-2023 Evaluation and management of inpatient [facility] Start: 09-19-2023 End: 09-19-2023 Evaluation and management of inpatient [facility] Start: 09-11-2023 End: 09-15-2023 Evaluation and management of inpatient [facility] Start: 09-08-2023 ambulatory [facility] Start: 09-06-2023 End: 09-06-2023 ambulatory [facility] Start: 09-05-2023 End: 09-05-2023 ambulatory JOHN Ruffin RANJANARTH[address] [facility] Start: 08-15-2023 End: 08-15-[address] [facility] Start: 07-23-2023 End: 07-30-2023 Evaluation and management of inpatient SANJAY Vergara [facility] Start: 07-23-2023 End: 07-30-2023 Evaluation and management of inpatient SANJAY BERNARD [facility] Start: 07-23-2023 Emergency department patient visit KATY MONTOYA [facility] Start: 07-18-2023 End: 07-21-2023 ambulatory [facility] Start: 07-03-2023 End: 07-03-2023 ambulatory [facility] Start: 06-27-2023 End: 06-28-2023 ambulatory [facility] Start: 06-20-2023 End: 06-21-2023 ambulatory [facility] Start: 06-13-2023 End: 06-14-2023 ambulatory [facility] Start: 05-29-2023 End: 05-30-2023 ambulatory [facility] Start: 05-29-2023 End: 05-29-2023 Subsequent hospital visit by physician Ayaka Downing [facility]ication [facility] Comment on above: Atrial fibrillation, unspecified type (HCC) (Primary Dx) Start: 05-17-2023 End: 05-18-2023 ambulatory [facility] Start: 04-25-2023 End: 04-26-2023 ambulatory [facility] Start: 04-25-2023 End: 04-25-2023 Subsequent hospital visit by physician Nallely Degroot [facility] Medication Management Comment on above: Atrial fibrillation, unspecified type (HCC) (Primary Dx) Start: 04-13-2023 End: 04-14-2023 ambulatory [facility] Start: 04-13-2023 End: 04-13-2023 Subsequent hospital visit by physician Juan José Velazquez [facility] Work Phone: [facility] Comment on above: Atrial fibrillation, unspecified type (HCC) (Primary Dx) Start: 04-05-2023 End: 04-06-2023 ambulatory [facility] Start: 03-08-2023 End: 03-08-2023 ambulatory ABDI Son LELE Not Available Start: 02-26-2023 End: 02-26-2023 ambulatory Chase Méndez Facility:[facility] Start: 02-26-2023 End: 02-26-2023 ambulatory MD Chase Méndez Work Phone: [facility] Work Phone: Start: 02-26-2023 End: 02-26-2023 Patient encounter procedure MD Chase Méndez Work Phone: [facility] Work Phone: Start: 02-15-2023 End: 02-15-2023 ambulatory Chase Méndez Facility:[facility] Start: 02-15-2023 End: 02-15-2023 ambulatory MD Chase Méndez Work Phone: [facility] Work Phone: Start: 02-15-2023 End: 02-15-2023 Patient encounter procedure MD Chase Méndez Work Phone: [facility] Work Phone: Start: 12-05-2022 End: 12-06-2022 ambulatory Tom R NILL Facility:[facility] Start: 11-22-2022 End: 11-23-2022 ambulatory Tom R NILL Facility:[facility] Start: 11-22-2022 End: 11-22-2022 Patient encounter procedure Tom R NILL [facility] Start: 11-14-2022 End: 11-15-2022 ambulatory Tom R NILL Facility:[facility] Start: 11-14-2022 End: 11-14-2022 Patient encounter procedure Tom R NILL [facility] [place] Start: 10-31-2022 End: 10-31-2022 ambulatory ROB [facility] Start: 10-17-2022 ambulatory Tom NILL Facility:[facility] Start: 08-07-2022 ambulatory AURELIO NAVA . Facility: [...] Facility:[facility] Start: 03-29-2022 End: 03-30-2022 ambulatory BERNICE GILLETTEI Facility:[facility] Start: 03-20-2022 End: 04-19-2022 ambulatory AYOUB [...] Facility:[facility] Start: 08-30-2021 End: 08-31-2021 ambulatory ROB MORAELS Facility:[facility] Start: 08-29-2021 Encounter for preprocedural laboratory examination ROB MORALES [facility] Start: 08-26-2021 End: 08-27-2021 ambulatory ROB MORALES Facility:[facility] Start: 08-26-2021 End: 08-27-2021 Encounter for preprocedural laboratory examination ROB MORALES Facility:[facility] Start: 11-28-2018 End: 11-28-2018 Patient encounter procedure UNKNOWN PROVIDER Facility:[facility] Start: 08-01-2018 End: 08-01-2018 Patient encounter procedure UNKNOWN PROVIDER Facility:[facility] Start: 02-21-2018 End: 02-21-2018 Patient encounter procedure UNKNOWN PROVIDER Facility:[facility] Procedures Date Procedure Procedure Detail Performing Clinician Start: 05-29-2023 Prothrombin time Histor ical Provider Start: 04-25-2023 Prothrombin time Histor ical Provider Start: 04-13-2023 End: 04-13-2023 Prothrombin time Historical Provider Start: 10-31-2022 Follow-up visit Follow-up ROB MASON Abdominal hysterectomy Joe nargis NILL Appendectomy Tom NILL Cardioversion Tom NILL Excision of melanoma Tom NILL Implantable cardiac pacemaker (physical object) Tom HAYNESL 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 using fluoroscopic guidance Tom HAYNESL Stapling of stomach Tom In*Situ Architecture[employer] Plan of Treatment Date Care Activity Detail Author Start: 06-13-2023 End: 06-13-2023 Patient encounter procedure 06/13/2023 3:30 PM EDT Appointment [facility] [place] [id number] (RIGOBERTO Méndez 03/22/2024) [facility] Comment on above: (RIGOBERTO Méndez 03/22/2024) Start: 05-09-2023 End: 05-09-2023 Patient encounter procedure 05/09/2023 3:30 PM EST Appointment [facility] [address] [place] [id number] (RIGOBERTO Méndez 03/22/2024) [facility] Comment on above: (RIGOBERTO Méndez 03/22/2024) Start: 04-25-2023 End: 04-25-2023 Patient encounter procedure 04/25/2023 3:30 PM EST Appointment [facility] [address] [place] [phone] new (CPA Hoy 03/22/2024) [facility] Comment on above: new (CPA Hoy ) Start: 03-19-2023 Annual Wellness Visi t (Medicare Advantage) Annual Wellness Visit (Medicare Advantage) [facility] Start: 10-17-2022 Influenza vaccination Flu vaccine (# 1) [facility] Start: 1984 Shingles vaccine (1 of 2) Shingles vaccine (1 of 2) [facility] Start: 1953 DTaP/Tdap/Td vaccine (1 - Tdap) DTaP/Tdap/Td vaccine (1 - Tdap) [facility] Start: 1946 Depression Screen Depression Screen [facility] Start: 1944 Lipid panel Lipids [facility] Immunizations Immunization Date Immunization Notes Care Provider Fa cility 07-25-2022 SARS-CoV-2 (COVID-19 ) mRNAMUL.[id number] Tom Berrybenka [facility] 07-10-2022 SARS-CoV-2 (COVID-19 ) mRNA-1273 vaccine Tom Berrybenka [facility] 02-27-2022 SARS-CoV-2 (COVID-19 ) mRNAMUL.ORD![id number] Tom Berrybenka [facility] 09-29-2021 SARS-CoV-2 mRNA (sbvfpoxxitx-kubv-jdrfr se) vaccine Tom THOMPSON [facility] 05-07-2020 SARS-CoV-2 (COVID-19 ) mRNA BNT-162b2 vax [facility] Comment on above: Result Comment: 2022: [id number] 04-16-2020 SARS-CoV-2 (COVID-19 ) mRNA BNT-162b2 vax [facility] Comment on above: Result Comment: 2022: [id number] Payers Date Payer Category Payer Medicare [id number] 2023 Self-pay 1960 Medicare [id number] 1960 Self-pay [id number] 1934 Unknown [id number] 2.16. 840.1.147344.3.579.2.732 1934 Unknown [id number] 2.16. 840.1.921461.3.579.2.732 1934 Unknown [id number] 2.16. 840.1.657824.3.579.2.732 1934 Unknown [id number] 2.16.8 40.1.848243.3.579.2.647 1934 Unknown [id number] 2.16.84 0.1.833710.3.579.2.593 1934 Unknown [id number] 2.16.84 0.1.701299.3.579.2.593 1934 Unknown [id number] 2.16.84 0.1.199088.3.579.2.593 1934 Unknown [id number] 2.16.84 0.1.396099.3.579.2.593 1934 Unknown [id number] 2.16.84 0.1.025215.3.579.2.593 1934 Unknown [id number] 2.16.84 0.1.668709.3.579.2.593 1934 Unknown [id number] 2.16.84 0.1.909453.3.579.2.593 1934 Unknown [id number] 2.16.84 0.1.516593.3.579.2.593 1934 Unknown [id number] 2.16.84 0.1.554759.3.579.2.593 1934 Unknown [id number] 2.16.84 0.1.069325.3.579.2.593 1934 Unknown [id number] 2.16.84 0.1.675590.3.579.2.593 1934 Unknown [id number] 2.16.84 0.1.139767.3.579.2.593 1934 Unknown [id number] 2.16.84 0.1.006840.3.579.2.593 1934 Unknown [id number] 2.16.84 0.1.441048.3.579.2.593 1934 Unknown [id number] 2.16.84 0.1.848341.3.579.2.593 1934 Unknown [id number] 2.16.84 0.1.199315.3.579.2.593 1934 Unknown [id number] 2.16.84 0.1.545405.3.579.2.593 1934 Unknown [id number] 2.16.84 0.1.682590.3.579.2.593 1934 Unknown [id number] 2.16.84 0.1.807680.3.579.2.593 1934 Unknown [id number] 2.16.84 0.1.997962.3.579.2.593 1934 Unknown [id number] 2.16.84 0.1.958053.3.579.2.593 1934 Unknown [id number] 2.16.84 0.1.124551.3.579.2.593 1934 Unknown [id number] 2.16.84 0.1.217006.3.579.2.593 1934 Unknown [id number] 2.16.84 0.1.891410.3.579.2.593 193 Unknown [id number] 2.16.8 40.1.000569.3.579.2.727 1934 Unknown [id number] 2.16.8 40.1.113343.3.579.2.727 193 Unknown [id number] 2.16.8 40.1.962430.3.579.2.727 1934 Unknown [id number] 2.16.840 .1.045793.3.579.2.1259 1934 Unknown [id number] 2.16.8 40.1.308335.3.579.2.176 1934 Unknown [id number] 2.16.8 40.1.007161.3.579.2.176 1934 Unknown [id number] 2.16.8 40.1.596103.3.579.2.176 1934 Unknown [id number] 2.16.8 40.1.729617.3.579.2.176 193 Unknown [id number] 2.16.8 40.1.606784.3.579.2.176 1934 Unknown [id number] 2.16.8 40.1.282548.3.579.2.176 193 Unknown [id number] 2.16.8 40.1.681800.3.579.2.176 193 Unknown [id number] 2.16. 840.1.710431.3.579.2.175 193 Unknown [id number] 2.16.8 40.1.148729.3.579.2.1286 193 Unknown [id number] 2.16.8 40.1.922532.3.579.2.1286 1934 Unknown [id number] 2.16.8 40.1.705471.3.579.2.1286 1934 Unknown [id number] 2.16.8 40.1.470121.3.579.2.128 1934 Unknown [id number] 2.16.8 40.1.563816.3.579.2.128 1934 Unknown [id number] 2.16.8 40.1.306554.3.579.2.1285 1934 Unknown [id number] 2.16.8 40.1.861189.3.579.2.128 1934 Unknown [id number] 2.16. 840.1.974375.3.579.2.175 1934 Unknown [id number] 2.16. 840.1.966884.3.579.2.175 1934 Unknown [id number] 2.16. 840.1.687103.3.579.2.175 1934 Unknown [id number] 2.16. 840.1.618884.3.579.2.175 1934 Unknown [id number] 2.16. 840.1.802481.3.579.2.175 Medicare [id number] Unknown [employer] [id number] Unknown [id number] 2.16.8 40.1.696127.3.579.2.531 Unknown [id number] 2.16.8 40.1.494133.3.579.2.531 Social History Date Type Detail Facility Start: 11-14-2022 Tobacco smoking status Ex-smoker (finding) [facility] Tobacco smoking status Never [facility] Start: 08-02-2012 Sex Assigned At Female F [facility] Start: 1935 Sex Assigned At Female F [facility] Tobacco smoking status WAIS Tobacco smoking consumption unknown [facility] [email or web address] Start: 08-02-2012 History of Social function [facility] Start: 1935 Sex Assigned At Not on file [facility] Functional Status Date Assessment Result Facility 11-14-2022 Functional Status N/A [facility] Clinical Notes 09-13-2021 to 10-13-2023 JacquieadrianaAyaka sawyer, [facility] - 05/29/2023 3:10 PM Nallely Faulkner, [facility] - 04/25/2023 3:30 PM ESTJuan José Velazquez, [facility] - 04/13/2023 3:30 PM EST Note Date & Type Note Facility 10-13-2023 Note [id number] 6 age, female, CHF, HTN, DM Remains on warfarin anticoagulation and metoprolol for rate control. [facility] 10-13-2023 Note Continue to monitor [facility] 10-13-2023 Note Moderate AO stenosis , extended [...] or not- possibly as a second opinion. [facility] 10-13-2023 Note [facility] 2-3 currently e uvolemic, without exacerbation Continue GDMT- ASA, metoprolol Diuretic therapy lasix 20 mg daily Currently with CKD and CR 2.2 and hypotension- GDMT is limited- currently unable to escalate with ACEi, ARB, ARNI Monitor daily weights, I&O, fluid restriction 1.5-2L/day, renal function and electrolytes- [facility] 10-13-2023 Note HTN stable and contr olled Continue all medications- metoprolol, aldactone [facility] 10-13-2023 Note Device check q 6 mon ths Staff to check device today and Device rep to review and will be evaluated by Dr Morales- EP [facility] 10-13-2023 Note Currently stable, no concerning symptoms [facility] 10-10-2023 Note Currently stable- 1 episode since last visit r/t hypoglycemia [facility] 10-10-2023 Note Patient here for 1 [...] All other systems reviewed and are negative. [facility] 10-10-2023 Note UTP CARDIOLOGY PROGR ESS [...] Lt foot. She was then admitted to [facility] in September for acute Lt leg ischemia [...] ADMIT DATE: 07/23/2023 DISCHARGE DATE: 07/30/2023 DISPOSITION: [facility] ADMITTING DIAGNOSIS: Left femoral it fracture DIAGNOSIS: Patient Active Problem List Diagnosis A-fib ([facility]) Closed left hip fracture, initial encounter ([facility]) Fall from standing BERTHA (acute kidney injury) ([facility]) Urinary retention CKD (chronic kidney disease) stage 4, GFR 15-29 ml/min ([facility]) Hx of cardiac pacemaker CONSULTANTS: nephrology, urology,cardiology, orthopedics PROCEDURES: Date: 07/24/23 Room / Location: [place] [address] / [facility] Anesthesia Start: 1238 Anesthesia Stop: 1504 Procedure: FEMUR CEPHALOMEDULLARY NAIL INSERTION (Left: Leg Upper) Diagnosis: Closed nondisplaced intertrochanteric fracture of left femur, initial encounter ([facility]) (Closed nondisplaced intertrochanteric fracture of left femur, initial encounter ([facility]) [S72.145A]) Surgeons: John Perla DO Responsible Provider: [...] is doing well. She was admitted to [facility] for weakness but has been doing well [...] consistent with a.flutter Patient has got a [employer] dual-chamber pacemaker implanted on 08/19/2012 with thresholds that are in normal range. She is noted to have atrial flutter with a cycle length of nearly 440 ms. The ventricular rate is controlled during this time. EKG 01/21/2018 shows atrial pacing and [place] conduction 01/12/2017 shows AV seq (more content not included)... [facility] 05-29-2023 History of Present illness Narrative [...] Accepted: 0 Time Spent (min): 20 Ayaka Downing PharmD PGY1 Siene Maker [facility] documented in this encounter [facility] 04-25-2023 History of Present illness Narrative [...] Spent (min): 20 Nallely Degroot, Pharm D, [facility] 04/25/2023 4:10 PM documented in this encounter [facility] 04-13-2023 History of Present illness Narrative Patient [...] Spent (min): 20 documented in this encounter [facility] 11-14-2022 Note Chief Complaint consultation for nevus [...] tab(s), Oral, Chrissy (more content not included)... [facility] Comment on above: Result Comment: Elec tronically Signed By: JAY BRYAN, Tom Lujan\Date and Time Signed: 11/14/22 13:57 EDT 10-31-2022 Note [facility] Electrophysiology Note [facility] Reason for visit: 6 month follow up 10/31/22 Patient is doing well. She was admitted to [facility] for weakness but has been doing well [...] consistent with a.flutter Patient has got a [employer] dual-chamber pacemaker implanted on 08/19/2012 with thresholds that are in normal range. She is noted to have atrial flutter with a cycle length of nearly 440 ms. The ventricular rate is controlled during this time. 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 [facility] 07-02-2022 Note PROCEDURE: US THYROI D [...] by: JUAN F ENCARNACION Date: 2022-07-02 08:56 [facility] 09-13-2021 Note PROCEDURE: XR HIP LT [...] by: JUAN JOSÉ CHENG Date: 2021-09-13 09:15 [facility] Evaluation + Plan note Future Appointments Appointment Date:11/22/2022 03:20:00 PM Scheduled Provider:Tom THOMPSON MD Location:[facility] Appointment Type: Procedure 30 [facility] Evaluation + Plan note Future Appointments Appointment Date:12/05/2022 02:40:00 PM Scheduled Provider:Tom THOMPSON MD Location:[facility] Appointment Type: Established 15 [facility] Evaluation note No assessment inform ation available [facility] Work Phone: Evaluation note Diagnosis Atrial fibrillation, unspecified type (HCC)- Primary documented in this encounter [facility] HEALTHEvaluation note* Diagnosis Atrial fibrillation, unspecified type (HCC)- Primary [facility] HE[facility]* Diagnosis Atrial fibrillation, unspecified type (HCC)- Primary documented in this encounter [facility] Narrative No data available for this section [facility] Discharge instructions No data available for this section [facility] Progress note No data available for this section [facility] Summary Purpose Family History No Family History [...] and content) DATE CREATED AUTHOR 11/28/2018 [facility] [employer] [facility] DATE CREATED AUTHOR AUTHOR'S ORGANIZ ATION 09/01/2021 [facility] DATE CREATED AUTHOR AUTHOR'S ORGANIZ ATION 08/25/2022 [facility] DATE CREATED AUTHOR AUTHOR'S ORGANIZ ATION 12/06/2022 [facility] DATE CREATED AUTHOR AUTHOR'S ORGANIZ ATION 03/03/2023 [facility] DATE CREATED AUTHOR AUTHOR'S ORGANIZ ATION 03/09/2023 [facility] dical [facility] DATE CREATED AUTHOR AUTHOR'S ORGANIZ ATION 07/21/2023 [facility] DATE CREATED AUTHOR AUTHOR'S ORGANIZ ATION 07/30/2023 [facility] DATE CREATED AUTHOR AUTHOR'S ORGANIZ ATION 09/09/2023 [facility] DATE CREATED AUTHOR AUTHOR'S ORGANIZ ATION 09/20/2023 [facility] DATE CREATED AUTHOR AUTHOR'S ORGANIZ ATION 10/13/2023 [facility] DATE CREATED AUTHOR AUTHOR'S ORGANIZ ATION 10/19/2023 [facility] Patient Care team informatio n (unrecognized section and content) Team Status: Inactive Member Role Status Dates Chase Méndez MD Attending Provider Active Supervisor [facility] Animal Facility Relationship Specialty Start Date End Date Chase Méndez MD [address] [place], [place] [id number] PCP - General 07/22/12 Supervisor [facility] Animal Facility Relationship Specialty Start Date End Date Chase Méndez MD [address] [place], [place] [id number] PCP - General 07/22/12 Supervisor Laboratory Animal Facility Relationship Specialty Start Date End Date Chase Méndez MD [address] [place], [place] [id number] PCP - General 07/22/12 Goals (unrecognized section and content) Goals may be documented in a n alternate section Reason for Visit (unrecogniz ed section and content) Specialty Diagnoses / Procedures Referred By Contac t Referred To Contact Pharmacy Diagnoses Atrial fibrillation (HCC) Chase Méndez MD [address] [place] [address] [facility] Medication [facility] [place] [address] Referral ID Status Reason Start Date Expiration Date V isits Requested Visits Authorized [id number] Authorized 03/22/2023 03/22/2024 99 99 Referral ID Status Reason Start Date Expiration Date V isits Requested Visits Authorized [id number] Pending Review 03/22/2023 03/22/2024 99 99 FOR [...] BE BASED ON THE PRIMARY CLINICAL RECORDS. [facility] [employer] [facility]. provides no warranty or guarantee of the accuracy or completeness of information in this document.
[2023-10-22 08:50] LABS: Hematocrit 35.4 % (36.0-48.0); Hemoglobin 10.6 g/dL (12.0-16.0)
[2023-10-22 09:00] LABS: Anion Gap 11.5; BUN Creatinine Ratio 38.8; Calcium 9.3 mg/dL (8.5-10.1); Carbon Dioxide 27.4 mmol/L (21.0-32.0); Chloride 106 mmol/L (98-107); Estimated GFR (African America 28 (>=60); Estimated GFR (Non-African Ame 23 (>=60); Glucose 89 mg/dL (74-106); Potassium 4.9 mmol/L (3.5-5.1); Sodium 140 mmol/L (136-145)
[2023-10-22 09:46] LABS: INR 1.17; Partial Thromboplastin Time 32.8 sec (22.3-36.2); Prothrombin Time 12.2 sec (9.0-11.6)
[2023-10-22] MEDS: LACTATED RINGER'S SOLUTION 1,000 ML 50 ML IV ×2 (09:48→11:44)
[2023-10-22] MEDS: CLINDAMYCIN PHOSPHATE/D5W 900 MG/50 ML PIGGYBACK 100 MG IV (10:33)
--- NOTE | 2023-10-22 10:49 | P.ORON_ITS ---
Brief Operative Note Date of procedure: 10/22/23 Pre-op diagnosis general: Left foot ulcers with bone involvement on dorsal mid foot and lateral foot & tendon exposure on medial ankle and posterior heel, peripheral arterial disease, type 2 diabetes Post-op diagnosis: same as pre-op Procedure: Procedure performed: Application of allogenic skin substitute left foot - 88.4 cm2 of total wound surface area Indications for procedure: Patient is an 88-year-old female with severe peripheral vascular disease who underwent revascularization by Dr. Snow within 2 weeks ago. She did have debridement at that time as well. She was referred to me for further wound management and possible skin graft application. Reportedly she has had the wounds for at least 3 months as well as pain in her left lower extremity which has improved since revascularization. In the office her foot was warm and pedal pulses were faintly palpable as they are today. She was seen in the office and I discussed with the patient and her son the potential risks and benefits of further operative debridement given the degree of pain patient has with the wound. Goals of the procedure include accelerate wound healing, prevent infection, prevent need for amputation. Intraoperative findings: Predebridement wound measurements: 1. Dorsal midfoot ulcer 9.5 x 6.2 x 0.2 cm - exposed bone 2. lateral foot ulcer 6.5 x 2.0 x 0.4 cm - exposed bone 3. Posterior heel 4.5 x 3.0 x 0.3 cm - Achilles tendon exposed 4. Medial ankle 2.0 x 1.5 x 0.2 cm - exposed tendon No signs of infection. All wounds with mixed fibrogranular base with minimal necrosis. All wound bled appropriately Procedure in detail: Patient was identified in preoperative holding by myself which time correct side and site were marked and consent was obtained. Preoperative antibiotics were started. Patient was brought back to the operating room placed on table in the supine position. IV sedation was administered and the left lower extremity was prepped and draped in usual sterile fashion. Formal timeout was performed and the surgical site was anesthetized with local anesthesia consisting of 10 cc of 1% lidocaine plain and 10 cc of 0.5% Marcaine plain. No tourniquet was used The wound on the left midfoot was excisionally debrided with scalpel/forceps, curettes and Versajet until 100% healthy granular base is noted. There was exposed bone over the cuneiforms. Similarly the left posterior heel ulcer was excisionally debrided to 100% healthy granular base. There was a small amount of Achilles tendon that was exposed which was excised sharply with a scalpel. The lateral wound over the fifth metatarsal was excisionally debrided with scalpel/forceps and Versajet small amount of tendon was excised and there was exposed fifth metatarsal base. Medial ankle wound over the malleolus with a s mall amount of tendon exposure which was excised with scalpel/forceps and the wound was excisionally debrided with Versajet. All wounds bled appropriately. Temporary pressure and elevation were used for hemostasis with Otto hemostatic powder. Once hemostasis was obtained the allogenic skin substitute was placed over the each wound base and held in place by maggie. Then Mepitel, 4 x 4's, Kerlix and ABDs followed by multiple layers of cast padding were placed as a dry sterile dressing. Patient tolerated the procedure and anesthesia well was transferred to the recovery room with vital signs stable and brisk capillary refill to all toes. Following a period of postoperative monitoring patient will be discharged back to her alf facility. She may weight-bear as tolerated and use the limb for transfers with a surgical shoe. No additional pain medicine is required. Patient is to follow-up in the wound center for dressing change later this week Implants: Jacqueline allogenic skin substitute Anesthesia: MAC and local Surgeon: Mynor Tejada Estimated blood loss (mL): 50 Tourniquet time (min): 0 Pathology: none sent Condition: stable Disposition: PACU
[2023-10-22] MEDS: BUPIVACAINE HCL 0.5% PF 50 MG/10 ML VIAL INJ (11:09)
[2023-10-22] MEDS: LIDOCAINE HCL 1% 100 MG/10 ML MDV INJ (11:10)
[2023-10-22 12:10] LABS: Glucometer 123 mg/dL (74-106)
== END 2023-10-22 13:22 | disposition home or self-care (01) ==
PROVIDERS: Anesthesiology; PCP Family Medicine; Visit Provider Podiatrist Foot & Ankle Surgery
PROC: (CPT 15004; principal; 2023-10-22 10:00)
DX: E11.621 Type 2 diabetes mellitus with foot ulcer (principal); L97.428 Non-pressure chronic ulcer of left heel and midfoot with other specified severity; Z95.0 Presence of cardiac pacemaker; Z87.891 Personal history of nicotine dependence; I50.9 Heart failure, unspecified; I35.0 Nonrheumatic aortic (valve) stenosis
CPT/HCPCS: 15004; 15275; 15276 ×3; 36415; 80048; 82948; 85014; 85018; 85610; 85730; 93005; J0665; J0736; J1100; J2405; J2704; J3010; Q4121

== ENCOUNTER 2023-10-25 14:47 | Outpatient (OUT) | payer MEDICARE, SELFPAY | END 2023-10-25 14:48 | disposition home or self-care (01) | LOC: WC 14:48 | PROVIDERS: PCP Family Medicine; Visit Provider Podiatrist Foot & Ankle Surgery | DX: E11.621 Type 2 diabetes mellitus with foot ulcer (principal); L97.428 Non-pressure chronic ulcer of left heel and midfoot with other specified severity | CPT/HCPCS: G0463 ==

== ENCOUNTER 2023-10-29 16:18 | Outpatient (OUT) | payer MEDICARE, SELFPAY | END 2023-10-29 16:19 | disposition home or self-care (01) | LOC: WC 16:18 | PROVIDERS: PCP Family Medicine; Visit Provider Physician Assistant | DX: E11.621 Type 2 diabetes mellitus with foot ulcer (principal); L97.428 Non-pressure chronic ulcer of left heel and midfoot with other specified severity | CPT/HCPCS: G0463 ==

== ENCOUNTER 2023-11-09 09:05 | Outpatient (OUT) | payer MEDICARE, SELFPAY | END 2023-11-09 09:06 | disposition home or self-care (01) | LOC: WC 09:05 | PROVIDERS: PCP Family Medicine; Visit Provider Podiatrist Foot & Ankle Surgery | DX: E11.621 Type 2 diabetes mellitus with foot ulcer (principal); L97.428 Non-pressure chronic ulcer of left heel and midfoot with other specified severity | CPT/HCPCS: G0463 ==

== ENCOUNTER 2023-11-12 09:17 | Outpatient (OUT) | payer MEDICARE, SELFPAY | END 2023-11-12 09:18 | disposition home or self-care (01) | LOC: WC 09:18 | PROVIDERS: PCP Family Medicine; Visit Provider Physician Assistant | DX: E11.621 Type 2 diabetes mellitus with foot ulcer (principal); L97.428 Non-pressure chronic ulcer of left heel and midfoot with other specified severity | CPT/HCPCS: G0463 ==

== ENCOUNTER 2023-11-19 00:58 | Outpatient (RCR) | payer MEDICARE, SELFPAY | END 2023-12-17 23:37 | disposition home or self-care (01) | LOC: MM 00:58 | PROVIDERS: PCP Family Medicine; Visit Provider Internal Medicine | DX: Z51.81 Encounter for therapeutic drug level monitoring (principal); Z79.01 Long term (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; I48.91 Unspecified atrial fibrillation ==

== ENCOUNTER 2023-12-18 01:35 | Outpatient (RCR) | payer MEDICARE, SELFPAY | END 2024-01-17 23:10 | disposition home or self-care (01) | LOC: MM 01:35 | PROVIDERS: PCP Family Medicine; Visit Provider Internal Medicine | DX: Z51.81 Encounter for therapeutic drug level monitoring (principal); Z79.01 Long term (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; I48.91 Unspecified atrial fibrillation ==